=== PATIENT | female | born 1985 | race Caucasian/White ===

== ENCOUNTER 2017-10-30 09:34 | Emergency (ER) | payer SELFPAY ==
[2017-10-30 09:35] VITALS: BP 132/96; PULSE 104; RESP 16; TEMP 37; O2SAT 100; BMI 38.5
--- NOTE | 2017-10-30 09:59 | CT_ITS ---
STUDY: CT ABDOMEN AND PELVIS WITHOUT CONTRAST REASON FOR EXAM: Female, 31 years old. Diffuse sharp abdominal pain. Nausea. RADIATION DOSAGE (If Supplied By Facility): CTDIvol = ( 18.67 ) mGy, DLP = ( 1040.18 ) mGycm TECHNIQUE: Transaxial images were obtained from the dome of the diaphragm to the symphysis pubis without oral contrast, and without intravenous contrast. Sagittal and coronal images were reconstructed. Individualized dose optimization techniques were used for this CT. COMPARISON: Comparison is made with prior study dated August 26, 2017. FINDINGS: The visualized lung bases are unremarkable. The visualized portions of the heart are within normal limits. Normal liver. There are surgical clips in the gallbladder fossa consistent with a prior cholecystectomy. Normal spleen. Normal pancreas. Normal bilateral adrenal glands. Normal right kidney. Normal left kidney. Normal visualized stomach. Normal small intestine. Normal colon. The appendix is visualized and appears normal. Normal abdominal aorta. Normal inferior vena cava. There is borderline retroperitoneal lymphadenopathy with enlarged nodes no greater than 10mm in the short axis diameter. Normal urinary bladder. There is a left-sided inguinal hernia containing adipose tissue. Small umbilical hernia containing fat. Small benign-appearing bilateral inguinal lymph nodes. Normal osseous structures. CT/Abdomen/Pelvis without Cont IMPRESSION: Normal unenhanced CT of the abdomen and pelvis. Electronically Signed: Molina Luis MD at 11:29 EST Tel [phone], Service support ,
[2017-10-30 10:20] LABS: Color, Urine Yellow (Yellow); Glucose, Dipstick Normal (Normal); Ketone-Dipstick Negative (Negative); Leukocyte Esterase-Dipstick Negative /ul (Negative); Nitrite-Dipstick Negative (Negative); Occult Blood-Urine Negative /ul (Negative); Protein-Dipstick Negative (Negative); Specific Gravity, Urine 1.015 (1.002-1.030); Urine Bilirubin Dipstick Negative (Negative); Urine Clarity Sl. Cloudy (Clear); Urine Urobilinogen Normal (Normal)
[2017-10-30] MEDS: 0.9% Normal Saline 1,000 ML 125 ML IV (10:25)
[2017-10-30] MEDS: Ondansetron 4 MG/2 ML Vial IV (10:25)
[2017-10-30 10:31] LABS: Red Blood Cells-Urine 0-5 SEEN /hpf (0-5); Squamous Epithelial Cells - UA 10-25 SEEN /hpf (5-10); White Blood Cells 0-5 SEEN /hpf (0-5)
[2017-10-30 10:32] LABS: Bacteria 4+ /hpf (None Seen); Mucous, Urine 1+ /hpf (<or=2+)
[2017-10-30 10:32] LABS: Absolute Lymphocyte Count 1.22 X10^3/ul (0.83-4.51); Absolute Neutrophil Count 6.8 X10^3/uL (2.0-7.7); Basophil# 0.03 X10^3/uL; Basophil% 0.3 % (0-1); Eosinophil# 0.11 X10^3/uL; Eosinophils% 1.2 % (0-5); Hematocrit 41.4 % (37-47); Lymphocyte # 1.22 X10^3/ul (4.0); Lymphocyte % 13.3 % (19-41); Mean Corp Hgb Conc 33.8 g/gl (32-36); Mean Corpuscular Hgb 27.9 pg (27.0-32.0); Mean Corpuscular Volume 82.5 fL (81-99); Mean Platelet Vol. 9.1 fl (6.2-12.0); Monocyte# 1.03 X10^3/uL; Monocyte% 11.2 % (0-10); Neutrophil # 6.77 X10^3/uL (2.7-7.7); Neutrophil % 73.9 % (47-70); Platelet Count 244 K/mm3 (150-450); RBC Distribution Width CV 13.5 % (11.6-14.6); RBC Distribution Width SD 40.7 fl (35.1-43.9); Red Blood Count 5.02 M/mm3 (4.2-5.4); White Blood Count 9.2 K/mm3 (4.4-11.0)
[2017-10-30 10:34] LABS: POSITIVE COUNT NO; POSITIVE DIFFERENTIAL NO; POSITIVE MORPHOLOGY NO
[2017-10-30 10:45] LABS: Anion Gap 6 (5-15); BUN 13 mg/dL (7-18); BUN/Creat Ratio 14.1 RATIO (10-20); Calcium,Total 8.9 mg/dL (8.5-10.1); Chloride 106 mmol/L (98-107); Creatinine, Serum 0.92 mg/dL (0.55-1.02); EST Glomerular Filtration Rate 76 mL/min (>60); Est Glom Filt Rate - Afr Amer 92 mL/min (>60); Estimated Creatinine Clearance 84.46 ml/min; Glucose 86 mg/dL (74-106); Lipase 98 U/L (73-393); Potassium 3.9 mmol/L (3.5-5.1); Sodium Level 138 mmol/L (136-145)
[2017-10-30 10:50] LABS: Pregnancy, Serum, hCG Quali. NEGATIVE Negative (0-9 Nonpreg)
--- NOTE | 2017-10-30 11:42 | ED.DCSUM_ITS ---
- ER Visit Summary Date of Service: 10/30/17 Chief Complaint: [Abdominal pain] History of Present Illness: The patient is a 31 F [presents to the emergency department with abdominal pain that started at 4 AM. Patient was awoken from sleep with it. Patient describes the pain as continuous with waxing and waning of the discomfort. Patient does not have vomiting although she has some mild nausea. Patient has not had any diarrhea. Last bowel movement was last evening. Patient states that she has not had a period for several months. Patient denies any vaginal bleeding. Patient denies urinary symptoms. Patient states that she had a low-grade fever this morning at 7:30 AM of 100.0.] Physical Examination: [HEENT-PERRLA, EOMI. Cranial nerves II through XII grossly intact. TMs clear. Mucous membranes moist. No adenopathy. Cardiovascular-regular rate and rhythm without murmur or ectopy Lungs-clear to auscultation, chest wall stable without crepitus or subcu emphysema Abdomen-hyper active bowel sounds, soft, tender diffusely, no rebound or rigidity, no peritoneal signs. Extremities-intact ?4, normal range of motion, normal pulses, atraumatic] Test Results: CBC with differential was normal. Chemistries were normal. Urinalysis was normal. HCG was negative. [CT scan of the abdomen and pelvis was normal.] Emergency Department Course and Treatment: [Patient was medicated with Zofran.] Treatment Plan: [Patient will be given a prescription for Zofran and Bentyl.] Disposition: [Discharged home in stable condition. Patient will be advised to follow-up with primary care physician distribution engineering technologist. Patient to return if worsening pain, vomiting, or condition should worsen in any way.] Impression: Abdominal pain-etiology uncertain [] This note was generated with Curazy dictation software. It may contain incorrect words, spelling, and punctuation that were not noted in review of the chart prior to signing ED Disposition - Plan for ED Patient: Chief Complaint: Abd Pain Referrals: Care Physician,No Primary [Primary Care Provider] -
--- NOTE | 2017-10-30 11:42 | ED.DEP ---
ED Disposition - Plan for ED Patient: Chief Complaint: Abd Pain Instructions: ED Abdominal Pain Unkn Cause Prescriptions: Ondansetron [Zofran Odt] 4 mg PO Q8H PRN PRN #10 tab PRN Reason: Nausea Dicyclomine HCl [Bentyl] 20 mg PO TIDAC #20 cap Referrals: Care Physician,No Primary [Primary Care Provider] - Judi Starks DO [STAFF PHYSICIAN] - 3-5 Days
[2017-10-30 11:49] VITALS: BP 138/88; PULSE 81; RESP 20; O2SAT 97
== END 2017-10-30 11:50 | disposition home or self-care (01) ==
LOC: ED 09:59
PROVIDERS: Emergency Provider Emergency Medicine
DX: R10.9 Unspecified abdominal pain (principal); R11.0 Nausea
CPT/HCPCS: 74176; 80048; 81001; 83690; 84703; 85025; 96361; 96374; 99283; J7030; A4216; J2405

== ENCOUNTER 2017-11-01 04:57 | Emergency (ER) | payer SELFPAY ==
[2017-11-01 04:58] VITALS: BP 142/95; PULSE 97; RESP 16; TEMP 37.7; O2SAT 98; BMI 38.9
--- NOTE | 2017-11-01 05:14 | ED.VISSUMM ---
- ER Visit Summary Date of Service: 11/01/17 Chief Complaint: [] Cough History of Present Illness: The patient is a 31 F [] upper respiratory symptoms including cough headache nasal congestion weakness runny nose and sore throat pharyngitis for the last 7 days. Seen in the emergency department 2 days ago for abdominal pain with negative labs and CT abdomen pelvis. She has been using Tylenol Physical Examination: Vital signs reviewed General: Well-nourished well-developed Head: Normocephalic atraumatic Eyes: Pupils equal round and reactive to light extraocular movements intact ENT: TMs clear no hemotympanum no trauma Neck: Nontender full range of motion Cardiovascular: Regular rate rhythm no murmurs normal S1-S2 Respiratory: No distress clear to auscultation bilaterally chest nontender Abdomen: Soft nontender nondistended normal bowel sounds no masses Back: Nontender no CVA tenderness Extremities: Nontender active range of motion ?4 extremities no trauma Skin: Normal color no trauma Neuro alert oriented cranial nerves II through XII intact normal strength sensation reflexes Test Results: [] Emergency Department Course and Treatment: [] Has an upper respiratory infection with laryngitis. This is viral. She will use [id number] treatments. Treatment Plan: [] Disposition: [] Impression: [] Upper respiratory infection This note was generated with Tri[employer] dictation software. It may contain incorrect words, spelling, and punctuation that were not noted in review of the chart prior to signing ED Disposition - Plan for ED Patient: Chief Complaint: Cold Sx Referrals: Care Physician,No Primary [Primary Care Provider] -
--- NOTE | 2017-11-01 05:15 | ED.DEP ---
ED Disposition - Plan for ED Patient: Disposition: Home or Assisted Living Chief Complaint: Cold Sx Instructions: ED Upper Resp Infec No Abx Tx Referrals: Care Physician,No Primary [Primary Care Provider] - Jamal Brock MD [STAFF PHYSICIAN] -
[2017-11-01 05:20] VITALS: RESP 16
== END 2017-11-01 05:20 | disposition home or self-care (01) ==
PROVIDERS: Emergency Provider Emergency Medicine
DX: J04.0 Acute laryngitis (principal); B97.89 Other viral agents as the cause of diseases classified elsewhere
CPT/HCPCS: 99282

== ENCOUNTER 2017-11-14 11:56 | Emergency (ER) | payer SELFPAY ==
[2017-11-14] VITALS (7 sets, daily range): BP systolic 114–143; BP diastolic 74–84; PULSE 62–80; RESP 15–16; TEMP 36.2; O2SAT 97–100; BMI 38.5
[2017-11-14 13:53] LABS: Absolute Lymphocyte Count 3.18 X10^3/ul (0.83-4.51); Absolute Neutrophil Count 4.8 X10^3/uL (2.0-7.7); Basophil# 0.03 X10^3/uL; Basophil% 0.3 % (0-1); Eosinophil# 0.08 X10^3/uL; Eosinophils% 0.9 % (0-5); Hematocrit 42.3 % (37-47); Hemoglobin 14.3 g/dl (12.0-15.0); Lymphocyte # 3.18 X10^3/ul (4.0); Lymphocyte % 36.4 % (19-41); Mean Corp Hgb Conc 33.8 g/gl (32-36); Mean Corpuscular Hgb 27.9 pg (27.0-32.0); Mean Corpuscular Volume 82.5 fL (81-99); Mean Platelet Vol. 9.2 fl (6.2-12.0); Monocyte# 0.63 X10^3/uL; Monocyte% 7.2 % (0-10); Neutrophil % 55.1 % (47-70); POSITIVE COUNT NO; POSITIVE DIFFERENTIAL NO; POSITIVE MORPHOLOGY NO; Platelet Count 299 K/mm3 (150-450); RBC Distribution Width CV 13.5 % (11.6-14.6); RBC Distribution Width SD 40.9 fl (35.1-43.9); Red Blood Count 5.13 M/mm3 (4.2-5.4); White Blood Count 8.7 K/mm3 (4.4-11.0)
[2017-11-14 14:07] LABS: Amphetamine Urine VISTA NEGATIVE (<1000 ng/mL); Barbiturate Urine VISTA NEGATIVE (< 200 ng/mL); Benzodiazepine Urine VISTA NEGATIVE (< 200 ng/mL); Cocaine Urine VISTA NEGATIVE (< 300 ng/mL); Ecstacy Urine VISTA NEGATIVE (< 500 ng/mL); Methadone Urine VISTA NEGATIVE (< 300 ng/mL); PCP Urine VISTA NEGATIVE (< 25 ng/mL); THC Urine VISTA NEGATIVE (< 50 ng/mL); Vista UDS pH Range 5
[2017-11-14 14:10] LABS: Pregnancy, Serum, hCG Quali. NEGATIVE Negative (0-9 Nonpreg)
[2017-11-14 14:15] LABS: Anion Gap 7 (5-15); BUN 15 mg/dL (7-18); BUN/Creat Ratio 20.7 RATIO (10-20); Calcium,Total 8.6 mg/dL (8.5-10.1); Chloride 109 mmol/L (98-107); Creatinine, Serum 0.72 mg/dL (0.55-1.02); EST Glomerular Filtration Rate 100 mL/min (>60); Est Glom Filt Rate - Afr Amer 121 mL/min (>60); Estimated Creatinine Clearance 106.96 ml/min; Glucose 77 mg/dL (74-106); Potassium 3.9 mmol/L (3.5-5.1); Sodium Level 142 mmol/L (136-145); Thyroid Stim Hormone (TSH) 1.14 uIU/mL (0.358-3.74)
[2017-11-14 17:05] LABS: Mucous, Urine 0 SEEN /hpf (<or=2+)
[2017-11-14 17:13] LABS: Color, Urine Yellow (Yellow); Glucose, Dipstick Normal (Normal); Ketone-Dipstick Negative (Negative); Leukocyte Esterase-Dipstick Negative /ul (Negative); Nitrite-Dipstick Negative (Negative); Occult Blood-Urine 25 /ul (Negative); Protein-Dipstick Negative (Negative); Urine Bilirubin Dipstick Negative (Negative); Urine Clarity Sl. Cloudy (Clear); Urine Urobilinogen Normal (Normal)
--- NOTE | 2017-11-14 17:19 | ED.VISSUMM ---
- ER Visit Summary Date of Service: 11/14/17 Chief Complaint: Suicidal ideation History of Present Illness: The patient is a 32 F who reports suicidal thoughts for quite some time. She has no specific plan but does have multiple different possibilities that she is considered. She went to the counseling center today for initial intake and was brought in to be admitted. Patient does report a history of depression. She been on medications in the past but not for quite some time. She does report worsening depression since the of her child several years ago. Physical Examination: Vital signs are unremarkable. Head neck examination reveals pupils to be unequal in size. States this is been ongoing for 5 years and has had multiple workups. Heart is regular rate and rhythm. On lung sounds are clear. Abdomen is soft nontender. Neuro exam reveals normal strength and sensation throughout. Patient does appear depressed has a flat affect. She does admit to continued suicidal thoughts. Test Results: CBC and chemistry studies are unremarkable. TSH is normal. test negative. Tox and EtOH are normal. Emergency Department Course and Treatment: Patient was discussed with Jovita from the counseling center. Patient has been accepted at [facility] in [place]. Treatment Plan: [] Disposition: Transfer Impression: Suicidal ideation This note was generated with [employer] Operations dictation software. It may contain incorrect words, spelling, and punctuation that were not noted in review of the chart prior to signing ED Disposition - Plan for ED Patient: Chief Complaint: Suicidal Referrals: Care Physician,No Primary [Primary Care Provider] -
[2017-11-14 17:29] LABS: Bacteria RARE /hpf (None Seen); Red Blood Cells-Urine 0-5 SEEN /hpf (0-5); Squamous Epithelial Cells - UA 0-5 SEEN /hpf (5-10); White Blood Cells 0 SEEN /hpf (0-5)
[2017-11-14 17:30] LABS: Amorphous Sediment 1+ URATE
[2017-11-14] MEDS: Acetaminophen 500 MG Tablet 1000 MG PO (17:33)
== END 2017-11-14 18:55 ==
PROVIDERS: Emergency Provider Emergency Medicine
DX: F32.9 Major depressive disorder, single episode, unspecified (principal); R45.851 Suicidal ideations; Z87.442 Personal history of urinary calculi
CPT/HCPCS: 36415; 80048; 80307; 80320; 81001; 84443; 84703; 85025; 99284; G0480

== ENCOUNTER 2018-03-05 06:04 | Emergency (ER) | payer SELFPAY ==
[2018-03-05 06:05] VITALS: BP 157/79; PULSE 73; RESP 16; TEMP 36.4; O2SAT 97; BMI 38.7
--- NOTE | 2018-03-05 06:27 | CT_ITS ---
STUDY: CT ABDOMEN AND PELVIS WITHOUT CONTRAST REASON FOR EXAM: Female, 32 years old. Left flank pain. RADIATION DOSAGE (If Supplied By Facility): CTDIvol = ( 14.60 ) mGy, DLP = ( 719.63 ) mGycm TECHNIQUE: Transaxial images were obtained from the dome of the diaphragm to the symphysis pubis without oral contrast, and without intravenous contrast. Sagittal and coronal images were reconstructed. Individualized dose optimization techniques were used for this CT. COMPARISON: Comparison is made with prior study dated October 30, 2017. FINDINGS: The visualized lung bases are unremarkable. The visualized portions of the heart are within normal limits. Normal liver. There are surgical clips in the gallbladder fossa consistent with a prior cholecystectomy. Normal spleen. Normal pancreas. Normal bilateral adrenal glands. Normal right kidney. There is fullness of the left renal pelvis. No significant hydronephrosis is seen. Normal visualized stomach. Normal small intestine. Normal colon. The appendix is visualized and appears normal. Normal abdominal aorta. Normal inferior vena cava. There is borderline retroperitoneal lymphadenopathy with enlarged nodes no greater than 10mm in the short axis diameter. Normal urinary bladder. There is a 2.1 cm cyst in the right ovary. There is a small umbilical hernia containing fat. Normal osseous structures. CT/Abdomen/Pelvis without Cont IMPRESSION: 2.1 cm cyst in the right ovary. Electronically Signed: Molina Luis MD at 8:08 EDT Tel [phone], Service support ,
--- NOTE | 2018-03-05 06:28 | ED.VISSUMM ---
- ER Visit Summary Date of Service: 03/05/18 Chief Complaint: [Right flank pain for 3 days] History of Present Illness: The patient is a 32 F [who presents the emergency department with right flank pain. It started 3 days ago. It is worse with sitting or lying down and is better with standing. She had UTI symptoms a couple of days ago with dysuria and frequency but got better on its own. She had nausea but no vomiting no fevers. She has anxiety and depression is otherwise healthy.] Physical Examination: [] Blood pressure 157/79 WN WD NAD PERRL EOMI MMM NECK supple and nontender, no masses RRR no murmur rub or gallop, no peripheral edema, symmetric radial pulses CTAB no respiratory distress ABDOMEN is soft and nontender, normal bowel sounds, no distension, no rebound or guarding No CVA tenderness SKIN is warm and dry no rashes Alert and Oriented x3, CN II-XII in tact, no motor or sensory deficits, gait normal No lymphadenopathy Test Results: [] Emergency Department Course and Treatment: [Patient was given fluids Toradol and Zofran. Screening labs were obtained urinalysis was sent and CT will be ordered to rule out kidney stone. Urinalysis shows greater than 100 red blood cells there is no evidence of infection. CT is pending I do suspect likely right urolithiasis. Results will be followed up on a oncoming physician.] Treatment Plan: [] Disposition: [] Impression: [] This note was generated with SCHEDit dictation software. It may contain incorrect words, spelling, and punctuation that were not noted in review of the chart prior to signing <Cheyanne Gomez - Last Filed: 03/05/18 07:11> - ER Visit Summary Date of Service: 03/05/18 Patient was checked out to me to check CT results. CT flank shows 2.1 cm right ovarian cyst. Patient states her pain is in the left flank. Urinalysis shows over 100 red blood cells with no white cells. She is advised to follow-up with Dr. Perkins, urology, for hematuria. She is advised to return to ED if worsening complaints. Disposition: Discharge home Impression: Left flank pain, hematuria This note was generated with Crowd Fusionation software. It may contain incorrect words, spelling, and punctuation that were not noted in review of the chart prior to signing <Maribell Cardoso - Last Filed: 03/05/18 08:48> ED Disposition <Cheyanne Gomez - Last Filed: 03/05/18 07:11> <Maribell Cardoso - Last Filed: 03/05/18 08:48> - Plan for ED Patient: Chief Complaint: Flank Pain Instructions: ED Flank Pain Uncertain Cause Prescriptions: Naproxen [Naprosyn] 500 mg PO BID PRN #20 tablet Referrals: Mauricio Askew MD [STAFF PHYSICIAN] - Shabbir Perkins MD [STAFF PHYSICIAN] -
[2018-03-05 06:39] LABS: White Blood Cells 0 SEEN /hpf (0-5)
[2018-03-05 06:41] LABS: Color, Urine Yellow (Yellow); Glucose, Dipstick Normal (Normal); Ketone-Dipstick Negative (Negative); Leukocyte Esterase-Dipstick 25 /ul (Negative); Nitrite-Dipstick Negative (Negative); Occult Blood-Urine 250 /ul (Negative); Protein-Dipstick 30 mg/dl (Negative); Specific Gravity, Urine 1.025 (1.002-1.030); Urine Bilirubin Dipstick Negative (Negative); Urine Clarity Sl. Cloudy (Clear); Urine Urobilinogen Normal (Normal)
[2018-03-05 06:50] LABS: Bacteria 1+ /hpf (None Seen); Mucous, Urine 1+ /hpf (<or=2+); Red Blood Cells-Urine > 100 SEEN /hpf (0-5); Squamous Epithelial Cells - UA 5-10 SEEN /hpf (5-10)
[2018-03-05] MEDS: 0.9% Normal Saline 1,000 ML 1000 ML IV (07:00)
[2018-03-05] MEDS: Ondansetron 4 MG/2 ML Vial IV (07:00)
[2018-03-05] MEDS: Ketorolac 30 MG/ML Syringe IV (07:00)
[2018-03-05 07:07] LABS: Absolute Lymphocyte Count 2.74 X10^3/ul (0.83-4.51); Basophil# 0.02 X10^3/uL; Basophil% 0.2 % (0-1); Eosinophil# 0.14 X10^3/uL; Eosinophils% 1.3 % (0-5); Hematocrit 41.4 % (37-47); Hemoglobin 13.8 g/dl (12.0-15.0); Lymphocyte # 2.74 X10^3/ul (4.0); Lymphocyte % 25.8 % (19-41); Mean Corp Hgb Conc 33.3 g/gl (32-36); Mean Corpuscular Hgb 27.7 pg (27.0-32.0); Mean Platelet Vol. 9.2 fl (6.2-12.0); Monocyte# 0.69 X10^3/uL; Monocyte% 6.5 % (0-10); Neutrophil % 66.1 % (47-70); Platelet Count 273 K/mm3 (150-450); RBC Distribution Width CV 13.7 % (11.6-14.6); RBC Distribution Width SD 41.2 fl (35.1-43.9); Red Blood Count 4.99 M/mm3 (4.2-5.4); White Blood Count 10.6 K/mm3 (4.4-11.0)
--- NOTE | 2018-03-05 07:11 | ED.DEP ---
ED Disposition - Plan for ED Patient: Chief Complaint: Flank Pain Instructions: ED Stone Renal W Colic Prescriptions: Hydrocodone Bitart/Apap 5-325 [Chepachet 5MG-325MG] 1 tablet PO Q6H PRN PRN 3 Days #10 tablet PRN Reason: Pain Ondansetron [Zofran Odt] 4 mg PO Q8H PRN PRN #10 tablet PRN Reason: Nausea Referrals: Mauricio Askew MD [STAFF PHYSICIAN] -
[2018-03-05 07:17] LABS: POSITIVE COUNT NO; POSITIVE DIFFERENTIAL NO; POSITIVE MORPHOLOGY NO; Pregnancy, Serum, hCG Quali. NEGATIVE Negative (0-9 Nonpreg)
[2018-03-05 07:18] LABS: ALB/GLOB Ratio 0.9 RATIO (0.9-2.4); AST(SGOT) 27 U/L (15-37); Alanine Aminotransfer ALT/SGPT 34 U/L (13-56); Albumin, Serum 3.7 g/dL (3.2-5.0); Alkaline Phosphatase 101 U/L (45-117); Anion Gap 8 (5-15); BUN 11 mg/dL (7-18); BUN/Creat Ratio 10.7 RATIO (10-20); Calcium,Total 8.5 mg/dL (8.5-10.1); Chloride 110 mmol/L (98-107); Creatinine, Serum 1.03 mg/dL (0.55-1.02); EST Glomerular Filtration Rate 67 mL/min (>60); Est Glom Filt Rate - Afr Amer 81 mL/min (>60); Estimated Creatinine Clearance 74.76 ml/min; Globulin 4.3 g/dL (2.2-4.2); Glucose 91 mg/dL (74-106); Sodium Level 140 mmol/L (136-145)
--- NOTE | 2018-03-05 08:41 | ED.DEP ---
ED Disposition - Plan for ED Patient: Chief Complaint: Flank Pain Instructions: ED Flank Pain Uncertain Cause Prescriptions: Naproxen [Naprosyn] 500 mg PO BID PRN #20 tablet Referrals: Mauricio Askew MD [STAFF PHYSICIAN] - Shabbir Perkins MD [STAFF PHYSICIAN] -
[2018-03-05 09:44] VITALS: BP 123/85; PULSE 76; RESP 18; O2SAT 99
== END 2018-03-05 09:46 | disposition home or self-care (01) ==
PROVIDERS: Emergency Provider Emergency Medicine
DX: R10.9 Unspecified abdominal pain (principal); R31.9 Hematuria, unspecified; R11.0 Nausea; R30.0 Dysuria; R35.0 Frequency of micturition; N83.201 Unspecified ovarian cyst, right side; F32.9 Major depressive disorder, single episode, unspecified; F41.9 Anxiety disorder, unspecified; Z79.899 Other long term (current) drug therapy
CPT/HCPCS: 74176; 80053; 81001; 84703; 85025; 96374; 96375; 99284; J7030; A4216; J2405

== ENCOUNTER 2018-03-17 00:44 | Emergency (ER) | payer SELFPAY ==
[2018-03-17 00:45] VITALS: BP 148/90; PULSE 79; RESP 16; TEMP 35.8; BMI 37.6
--- NOTE | 2018-03-17 02:33 | ED.DEP ---
ED Disposition - Plan for ED Patient: Chief Complaint: Eye Problem Instructions: ED Conjunctivitis Bacterial Referrals: Care Physician,No Primary [Primary Care Provider] - Rc Quintana MD [STAFF PHYSICIAN] -
[2018-03-17] MEDS: Tetracaine 0.5% Ophthalmic Bottle 1 DRP LEFT EYE (02:57)
[2018-03-17 02:58] VITALS: RESP 18; O2SAT 98
--- NOTE | 2018-03-17 05:45 | ED.VISSUMM ---
- ER Visit Summary Date of Service: 03/17/18 Chief Complaint: Left eye redness History of Present Illness: The patient is a 32 F presenting with left eye redness ?3 days. She states it has been itching and burning. She denies vision changes. She does not wear contacts or glasses. She has had no foreign body exposures, chemical exposure, tanning, or welding. No trauma. She denies fever. Denies sick contacts. Physical Examination: Vitals are stable. Patient is afebrile. Alert no acute distress. HEENT exam left eye conjunctival injection, no foreign body visualized. Left pupil is dilated compared to right. Neck is supple. Lungs are clear and equal bilaterally. Heart is regular rate and rhythm. Extremities are unremarkable. Skin is warm and dry. No focal neurologic deficit. Remainder of exam is unremarkable. 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 She states she has seen multiple ophthalmologists and does not have a known cause for this. She states it is no different than usual today. Tetracaine was instilled which relieved her symptoms. Visual acuity 20/20 OD, 20/50 OS. She is given bacitracin ophthalmic ointment. Advised to follow-up with ophthalmology as needed. Advised return to ED if worsening complaints. Disposition: Discharge home Impression: Left conjunctivitis This note was generated with NeuralStem dictation software. It may contain incorrect words, spelling, and punctuation that were not noted in review of the chart prior to signing ED Disposition - Plan for ED Patient: Disposition: Home or Assisted Living Chief Complaint: Eye Problem Instructions: ED Conjunctivitis Bacterial Referrals: Rc Quintana MD [STAFF PHYSICIAN] - Care Physician,No Primary [Primary Care Provider] -
== END 2018-03-17 02:58 | disposition home or self-care (01) ==
LOC: ED 01:36
PROVIDERS: Emergency Provider Emergency Medicine
DX: H10.9 Unspecified conjunctivitis (principal); Z79.899 Other long term (current) drug therapy
CPT/HCPCS: 99283

== ENCOUNTER 2018-06-25 20:39 | Emergency (ER) | payer SELFPAY ==
[2018-06-25 20:40] VITALS: BP 150/105; PULSE 85; RESP 18; TEMP 36.5; O2SAT 94; BMI 22.1
--- NOTE | 2018-06-25 20:45 | ED.RN ---
PULLED OLD EKGS PER PROTOCOL
[2018-06-25 21:13] VITALS: BP 143/87; PULSE 75; RESP 16; O2SAT 97
--- NOTE | 2018-06-25 22:00 | EKG12_ITS ---
Test Reason : CP Blood Pressure : / mmHG Vent. Rate : 076 BPM Atrial Rate : 076 BPM P-R Int : 136 ms QRS Dur : 088 ms QT Int : 372 ms P-R-T Axes : 052 066 044 degrees QTc Int : 418 ms Normal sinus rhythm Normal ECG Confirmed by ARACELY YOO, RAOUL ([id number]), video editor MELANI ASCENCIO ([id number]) on 06/27/2018 9:58:22 AM Referred By: TL Confirmed By:RAOUL JESSICA MD
--- NOTE | 2018-06-25 22:00 | RAD_ITS ---
STUDY: X-RAY CHEST REASON FOR EXAM: Female, 32 years old. Chest pain. Shortness of breath and dizziness beginning this morning. TECHNIQUE: Single AP portable view of the chest. COMPARISON: April 28, 2016. FINDINGS: Telemetry wires overlie the chest. There is a minimally decreased inspiratory effort when compared to prior study. There is no new mass or infiltrate. There is no demonstrated pleural abnormality. Normal size heart. Normal mediastinum and rolando. Normal visualized pulmonary arteries. Normal visualized aortic arch and descending thoracic aorta. The thoracic spine is obscured by the mediastinum. Normal visualized ribs, clavicles, and shoulders. There is no demonstrated abnormality of the visualized soft tissue structures of the upper abdomen. RAD/Chest 1 View (Portable) IMPRESSION: No acute cardiopulmonary disease or interval change. Electronically Signed: Jax Contreras DO at 22:25 EDT Tel [phone], Service support ,
--- NOTE | 2018-06-25 22:01 | ED.VISSUMM ---
- ER Visit Summary Date of Service: 06/25/18 Chief Complaint: Palpitations History of Present Illness: The patient is a 32 F presenting with palpitations. She states she has had 1 minute episodes of palpitations throughout the day. She states she is getting episodes about once an hour. She states she has associated chest pain with this. Symptoms last approximately 1 minute. She has shortness of breath with this. She has not passed out. She is currently pain-free. Denies PE/DVT risk factors. History of anxiety and depression. Denies fever or chills. Physical Examination: Vitals are stable. Patient is afebrile. Alert no acute distress. HEENT exam is unremarkable. Neck is supple. Lungs are clear and equal bilaterally. Heart is regular rate and rhythm. Abdomen is soft nontender nondistended. Extremities are unremarkable. Skin is warm and dry. No focal neurologic deficit. Remainder of exam is unremarkable. Emergency Department Course and Treatment: EKG is sinus rate of 75 with no acute changes. D-dimer is negative. Chest x-ray shows no acute process. BMP unremarkable. HCG negative. She is given Dr. Lee regional commercial sales manager for no doc for follow-up. Advised return to ED if worsening complaints. Disposition: Discharge home Impression: Palpitations This note was generated with Spavista dictation software. It may contain incorrect words, spelling, and punctuation that were not noted in review of the chart prior to signing ED Disposition - Plan for ED Patient: Chief Complaint: Chest Other Instructions: ED Palpitations Referrals: Talib Lee III, MD [STAFF PHYSICIAN] - Care Physician,No Primary [Primary Care Provider] -
[2018-06-25] MEDS: 0.9% Normal Saline 1,000 ML 1000 ML IV (22:42)
[2018-06-25 22:49] LABS: D-Dimer Quantitative (DVT/PE) < 0.27 FEU/ug/m (0.27-0.49)
[2018-06-25 22:52] LABS: Anion Gap 8 (5-15); BUN 17 mg/dL (7-18); BUN/Creat Ratio 18.5 RATIO (10-20); Calcium,Total 8.4 mg/dL (8.5-10.1); Chloride 109 mmol/L (98-107); Creatinine, Serum 0.92 mg/dL (0.55-1.02); EST Glomerular Filtration Rate 76 mL/min (>60); Est Glom Filt Rate - Afr Amer 92 mL/min (>60); Glucose 97 mg/dL (74-106); Potassium 3.5 mmol/L (3.5-5.1); Sodium Level 140 mmol/L (136-145)
[2018-06-25 23:02] VITALS: BP 122/77; PULSE 76; RESP 14; O2SAT 98
[2018-06-25 23:57] LABS: Pregnancy, Serum, hCG Quali. NEGATIVE Negative (0-9 Nonpreg)
--- NOTE | 2018-06-25 23:59 | ED.DEP ---
ED Disposition - Plan for ED Patient: Chief Complaint: Chest Other Instructions: ED Palpitations Referrals: Care Physician,No Primary [Primary Care Provider] - Talib Lee III, MD [STAFF PHYSICIAN] -
[2018-06-26 00:12] VITALS: BP 146/100; PULSE 86; RESP 12; O2SAT 100
== END 2018-06-26 00:14 | disposition home or self-care (01) ==
PROVIDERS: Emergency Provider Emergency Medicine
DX: R00.2 Palpitations (principal); R07.9 Chest pain, unspecified; R06.02 Shortness of breath; F32.9 Major depressive disorder, single episode, unspecified; F41.9 Anxiety disorder, unspecified; Z79.899 Other long term (current) drug therapy
CPT/HCPCS: 71045; 80048; 84484; 84703; 85379; 93005; 96360; 99285; J7030; A4216

== ENCOUNTER 2018-06-27 14:33 | Emergency (ER) | payer SELFPAY ==
[2018-06-27 14:33] VITALS: BP 155/97; PULSE 77; RESP 18; TEMP 36.6; O2SAT 100; BMI 38.2
--- NOTE | 2018-06-27 14:48 | EKG12_ITS ---
Test Reason : CP Blood Pressure : / mmHG Vent. Rate : 080 BPM Atrial Rate : 080 BPM P-R Int : 134 ms QRS Dur : 082 ms QT Int : 366 ms P-R-T Axes : 033 062 026 degrees QTc Int : 422 ms Normal sinus rhythm Poor R wave progression Confirmed by CHLOÉ YOO, MARYLOU ([id number]), editorial director LIZ MATUTE ([id number] on 07/01/2018 12:42:46 PM Referred By: JUAQUIN Confirmed By:MARYLOU LUEVANO MD
--- NOTE | 2018-06-27 14:48 | CT_ITS ---
STUDY: CTA CHEST REASON FOR EXAM: Female, 32 years old. Chest pain. RADIATION DOSAGE (If Supplied By Facility): CTDIvol = ( 26.18 ) mGy, DLP = ( 680.2 ) mGycm TECHNIQUE: The examination was performed with the intravenous administration of 100 ml of Isovue 370 contrast material. Post-processing of the angiographic images was performed, with multiplanar reformation and 3D reconstruction. # of Images: [id number] Individualized dose optimization techniques were used for this CT. COMPARISON: 03/26/2017, 03/05/2018. FINDINGS: Normal enhancement of the main pulmonary artery and right and left pulmonary arteries. Normal enhancement of the bilateral peripheral pulmonary arteries. There is no demonstrated pulmonary embolism. Normal thoracic aorta and visualized great vessels. There is no demonstrated aortic dissection. Normal heart and pericardium. Normal mediastinum. Normal hilar regions. Normal visualized trachea and bronchi. The lungs are well expanded. Normal pulmonary parenchyma. There is a tiny 4 mm nodule in the posterior left lung base which is stable from the previous exams and in this age group is almost certainly of no clinical concern. Normal pleura. Normal chest wall structures. Normal osseous structures. Normal visualized upper abdomen. CT/CTA Chest W/WO Contrast IMPRESSION: Normal CTA chest examination, without a demonstrated pulmonary embolism or arterial dissection. Electronically Signed: Aaron Nye MD at 16:15 EDT , Service support ,
--- NOTE | 2018-06-27 14:48 | RAD_ITS ---
STUDY: X-RAY CHEST REASON FOR EXAM: Female, 32 years old. Chest pain. TECHNIQUE: Single AP portable view of the chest. COMPARISON: 06/25/2018. FINDINGS: The lungs are clear and expanded. There is no demonstrated pleural abnormality. Normal size heart. Normal mediastinum and rolando. Normal visualized pulmonary arteries. Normal visualized aortic arch and descending thoracic aorta. Normal visualized thoracic spine. Normal visualized ribs, clavicles, and shoulders. There is no demonstrated abnormality of the visualized soft tissue structures of the upper abdomen. RAD/Chest 1 View (Portable) IMPRESSION: Normal x-ray examination of the chest. Electronically Signed: Aaron Nye MD at 15:32 EDT , Service support ,
--- NOTE | 2018-06-27 14:52 | ED.DCSUM_ITS ---
- ER Visit Summary Date of Service: 06/27/18 Chief Complaint: [] Upper back pain sense of palpitations chest pain since yesterday History of Present Illness: The patient is a 32 F [] patient mid back sense of palpitation she has had on and off was seen the other day in the emergency department her workup was unremarkable she indicates that pain in her mid back sense of the palpitations, she had no trauma to her back or any part of her body she does report that before the onset of the back pain she had lifted a heavy laundry basket but does not believe she injured herself. She is at work today in the back pain intensified she came in for evaluation. She has history of anxiety depression history of ID PE DVT no risk factors Physical Examination: [] Her vital signs are unremarkable she is resting comforting the bed general, no distress resting comfortably HEENT is generally unremarkable The neck is supple no adenopathy Cardiovascular, regular rate and rhythm Lungs, clear bilateral Abdomen, soft nontender Planes of some vague pain to the mid thoracic area this area is not tender to palpation there is no trauma or bruising here her C-spine T-spine lumbar back unremarkable Extremities, no clubbing cyanosis or edema Neurologic, awake alert answering questions appropriately moving all 4 extremities Test Results: [] Emergency Department Course and Treatment: [] Review of workup from the day shows unremarkable labs d-dimer, given all the above screening labs CTA EKG pain management Patient's EKG all laboratory results were generally unremarkable nothing acute, CTA of chest was obtained because of her persistent complaints of all the above per radiology is negative for all Of explained the test results the patient I explained exact etiology of the back pain and the intermittent sense of palpitations is unclear she needs to follow- up as she has been instructed to do would see her physicians and return for change in symptoms she will be started on Naprosyn for the back pain and she understands this plan will follow Treatment Plan: [] Disposition: [] Home stable Impression: [] Upper back pain etiology unclear, intermittent sense of palpitations This note was generated with [employer]One dictation software. It may contain incorrect words, spelling, and punctuation that were not noted in review of the chart prior to signing ED Disposition - Plan for ED Patient: Chief Complaint: Back Referrals: Care Physician,No Primary [Primary Care Provider] -
[2018-06-27 15:03] LABS: Absolute Neutrophil Count 7.2 X10^3/uL (2.0-7.7); Basophil# 0.04 X10^3/uL; Basophil% 0.4 % (0-1); Eosinophil# 0.14 X10^3/uL; Eosinophils% 1.3 % (0-5); Hematocrit 41.3 % (37-47); Hemoglobin 14.3 g/dl (12.0-15.0); Mean Corp Hgb Conc 34.6 g/gl (32-36); Mean Corpuscular Hgb 28.3 pg (27.0-32.0); Mean Corpuscular Volume 81.8 fL (81-99); Mean Platelet Vol. 9.9 fl (6.2-12.0); Monocyte# 0.69 X10^3/uL; Monocyte% 6.2 % (0-10); Neutrophil # 7.23 X10^3/uL (2.7-7.7); Neutrophil % 64.9 % (47-70); Platelet Count 319 K/mm3 (150-450); RBC Distribution Width CV 13.7 % (11.6-14.6); RBC Distribution Width SD 40.2 fl (35.1-43.9); Red Blood Count 5.05 M/mm3 (4.2-5.4); White Blood Count 11.1 K/mm3 (4.4-11.0)
[2018-06-27 15:06] LABS: POSITIVE COUNT NO; POSITIVE DIFFERENTIAL NO; POSITIVE MORPHOLOGY NO
[2018-06-27] MEDS: Ondansetron 4 MG/2 ML Vial IV (15:17)
[2018-06-27] MEDS: morphine 8 MG/ML Syringe IV (15:17)
[2018-06-27] MEDS: Aspirin 81 MG TAB.CHEW 324 MG PO (15:17)
[2018-06-27] MEDS: 0.9% Normal Saline 1,000 ML 150 ML IV (15:17)
[2018-06-27 15:18] LABS: Anion Gap 8 (5-15); BUN 17 mg/dL (7-18); BUN/Creat Ratio 17.3 RATIO (10-20); Calcium,Total 8.6 mg/dL (8.5-10.1); Chloride 107 mmol/L (98-107); Creatinine, Serum 0.98 mg/dL (0.55-1.02); EST Glomerular Filtration Rate 70 mL/min (>60); Est Glom Filt Rate - Afr Amer 85 mL/min (>60); Estimated Creatinine Clearance 78.58 ml/min; Glucose 83 mg/dL (74-106); Potassium 3.6 mmol/L (3.5-5.1); Sodium Level 139 mmol/L (136-145)
[2018-06-27 15:27] VITALS: BP 140/102
--- NOTE | 2018-06-27 16:47 | ED.DEP ---
ED Disposition - Plan for ED Patient: Chief Complaint: Back Prescriptions: Naproxen [Naprosyn] 500 mg PO BID PRN #20 tab Referrals: Care Physician,No Primary [Primary Care Provider] - Yeni Osman MD [STAFF PHYSICIAN] -
--- NOTE | 2018-06-27 16:49 | ED.DEP ---
ED Disposition - Plan for ED Patient: Chief Complaint: Back Instructions: ED Neck Back Pain General, ED Palpitations Prescriptions: Naproxen [Naprosyn] 500 mg PO BID PRN #20 tab Referrals: Yeni Osman MD [STAFF PHYSICIAN] - Care Physician,No Primary [Primary Care Provider] -
[2018-06-27 17:00] VITALS: BP 125/85; PULSE 75; RESP 16; O2SAT 98
== END 2018-06-27 17:04 | disposition home or self-care (01) ==
LOC: ED 15:04
PROVIDERS: Emergency Provider Emergency Medicine
DX: M54.9 Dorsalgia, unspecified (principal); R00.2 Palpitations; F32.9 Major depressive disorder, single episode, unspecified; F41.9 Anxiety disorder, unspecified; I25.2 Old myocardial infarction; Z79.899 Other long term (current) drug therapy
CPT/HCPCS: 71045; 71275; 80048; 84484; 85025; 93005; 96361; 96374; 96375; 99285; J7030; Q9967; A4216; J2405

== ENCOUNTER 2018-07-17 08:28 | Emergency (ER) | payer SELFPAY ==
[2018-07-17 08:29] VITALS: BP 168/87; PULSE 104; RESP 18; TEMP 36.6; O2SAT 95; BMI 37.9
[2018-07-17 09:08] LABS: Mucous, Urine 0 SEEN /hpf (<or=2+); Red Blood Cells-Urine 0 SEEN /hpf (0-5); White Blood Cells 0 SEEN /hpf (0-5)
[2018-07-17 09:12] LABS: Absolute Lymphocyte Count 1.52 X10^3/ul (0.83-4.51); Absolute Neutrophil Count 8.9 X10^3/uL (2.0-7.7); Basophil# 0.02 X10^3/uL; Basophil% 0.2 % (0-1); Eosinophil# 0.05 X10^3/uL; Eosinophils% 0.4 % (0-5); Hematocrit 41.1 % (37-47); Hemoglobin 13.8 g/dl (12.0-15.0); Lymphocyte # 1.52 X10^3/ul (4.0); Lymphocyte % 13.3 % (19-41); Mean Corp Hgb Conc 33.6 g/gl (32-36); Mean Corpuscular Hgb 27.9 pg (27.0-32.0); Mean Corpuscular Volume 83.2 fL (81-99); Mean Platelet Vol. 9.4 fl (6.2-12.0); Monocyte# 0.99 X10^3/uL; Monocyte% 8.7 % (0-10); Neutrophil # 8.85 X10^3/uL (2.7-7.7); Neutrophil % 77.3 % (47-70); Platelet Count 221 K/mm3 (150-450); RBC Distribution Width CV 13.5 % (11.6-14.6); Red Blood Count 4.94 M/mm3 (4.2-5.4); White Blood Count 11.4 K/mm3 (4.4-11.0)
[2018-07-17 09:17] LABS: POSITIVE COUNT NO; POSITIVE DIFFERENTIAL NO; POSITIVE MORPHOLOGY NO
[2018-07-17] MEDS: Ondansetron 4 MG/2 ML Vial IV (09:17)
[2018-07-17 09:27] LABS: AST(SGOT) 8 U/L (15-37); Alanine Aminotransfer ALT/SGPT 21 U/L (13-56); Albumin, Serum 3.3 g/dL (3.2-5.0); Alkaline Phosphatase 104 U/L (45-117); Anion Gap 8 (5-15); BUN 11 mg/dL (7-18); BUN/Creat Ratio 12.2 RATIO (10-20); Bilirubin, Direct 0.12 mg/dL (0.00-0.30); Calcium,Total 8.4 mg/dL (8.5-10.1); Chloride 109 mmol/L (98-107); EST Glomerular Filtration Rate 77 mL/min (>60); Est Glom Filt Rate - Afr Amer 94 mL/min (>60); Estimated Creatinine Clearance 85.56 ml/min; Globulin 4.3 g/dL (2.2-4.2); Glucose 84 mg/dL (74-106); Lipase 81 U/L (73-393); Potassium 3.9 mmol/L (3.5-5.1); Protein, Total 7.6 g/dL (6.4-8.2); Sodium Level 142 mmol/L (136-145)
[2018-07-17 09:28] LABS: Color, Urine YELLOW (Yellow); Urine Clarity Sl Cldy (Clear)
[2018-07-17 09:29] LABS: Glucose, Dipstick NEGATIVE (Normal); Ketone-Dipstick Negative (Negative); Specific Gravity, Urine 1.005 (1.002-1.030); Urine Bilirubin Dipstick Negative (Negative)
[2018-07-17 09:30] LABS: Nitrite-Dipstick Negative (Negative); Protein-Dipstick 30 mg/dl (Negative); Urine Urobilinogen Normal (Normal)
[2018-07-17 09:31] LABS: Leukocyte Esterase-Dipstick Negative /ul (Negative); Occult Blood-Urine Negative /ul (Negative)
--- NOTE | 2018-07-17 09:33 | ED.DCSUM_ITS ---
- ER Visit Summary Date of Service: 07/17/18 Chief Complaint: Abdominal cramping History of Present Illness: The patient is a 32 F medical history of ovarian cyst and a left kidney stone also anxiety. Patient is Ab0. History of depression. Prior abdominal surgeries include umbilical hernia repair, c holecystectomy and 2 C-sections. She states the last 3 days she has had crampy abdominal pain. Began on Sunday. Associated nausea. No vomiting. No diarrhea. No fever. No dysuria. No melena. No back pain. Last menstrual period was approximately 1 week ago. She denies any vaginal bleeding or discharge. Physical Examination: Well-appearing young female. Vital signs are stable afebrile. She does not look septic or toxic. She is in no acute distress. H EENT exam unremarkable. Moist mucous membranes. Neck nontender. No lymphadenopathy. Lungs clear to auscultation bilaterally. Heart regular rate and rhythm no murmur rate about 100. Abdomen is soft. Nondistended. Normal bowel sounds. She is very minimal discomfort in the epigastric region. No rebound, guarding or rigidity. No signs of traction. No hernias or masses appreciated. Both the right upper right lower quadrants are unremarkable. There is no McBurney's point tenderness. Patient is moving all 4 extremities. They are neurovascularly intact. Back exam nontender. Skin unremarkable. Neurologically she is awake and alert with no focal motor deficits. Test Results: Showed a white count 11.4. Hemoglobin 13. No bands. Chemistries unremarkable normal gap and creatinine. Liver enzymes and lipase normal. UA negative. Serum test negative. Emergency Department Course and Treatment: She will be treated with IV Zofran for her nausea. Will obtain screening labs but my clinical suspicion is low. She has had at least 4 abdominal and pelvic CAT scans in the last year and a half, all of which were basically unremarkable except for an ovarian cyst and a kidney stone that was in the kidney. Repeat exam at 10:01 AM signs. No localizing right lower quadrant tenderness. She and I discussed all of her test results. She will be discharged to home. Treatment Plan: Zofran for nausea. Tylenol for pain. Follow-up with your doctor as needed. Return if worse. Disposition: Discharge Impression: Acute abdominal pain of uncertain etiology Nausea Anxiety This note was generated with [employer] software. It may contain incorrect words, spelling, and punctuation that were not noted in review of the chart prior to signing ED Disposition - Plan for ED Patient: Chief Complaint: Abd Pain Referrals: Care Physician,No Primary [Primary Care Provider] -
[2018-07-17 09:35] LABS: Bacteria 1+ /hpf (None Seen); Squamous Epithelial Cells - UA 5-10 SEEN /hpf (5-10)
[2018-07-17 09:48] LABS: Pregnancy, Serum, hCG Quali. NEGATIVE Negative (0-9 Nonpreg)
--- NOTE | 2018-07-17 10:03 | ED.DEP ---
ED Disposition - Plan for ED Patient: Disposition: Home or Assisted Living Chief Complaint: Abd Pain Instructions: ED Abdominal Pain Unkn Cause Prescriptions: Ondansetron [Zofran Odt] 4 mg PO Q4H PRN PRN #7 tab.rapdis PRN Reason: Nausea Referrals: Ugo Quarles MD [STAFF PHYSICIAN] - 1 Week if not improving Additional Instructions: Plenty of fluids and rest. Zofran as needed for nausea. Follow-up with a local primary care physician or return to ER if feeling a lot worse.
[2018-07-17 10:11] VITALS: PULSE 100; RESP 17; O2SAT 98
== END 2018-07-17 10:13 | disposition home or self-care (01) ==
PROVIDERS: Emergency Provider Emergency Medicine
DX: R10.13 Epigastric pain (principal); R11.0 Nausea; F32.9 Major depressive disorder, single episode, unspecified; F41.9 Anxiety disorder, unspecified; Z79.899 Other long term (current) drug therapy; Z87.442 Personal history of urinary calculi
CPT/HCPCS: 80048; 80076; 81001; 83690; 84703; 85025; 96374; 99283; A4216; J2405

== ENCOUNTER 2018-07-18 08:43 | Emergency (ER) | payer SELFPAY ==
[2018-07-18 08:44] VITALS: BP 154/120; PULSE 132; RESP 20; TEMP 36.6; O2SAT 97; BMI 38.4
--- NOTE | 2018-07-18 08:57 | CT_ITS ---
STUDY: CT ABDOMEN AND PELVIS WITHOUT CONTRAST REASON FOR EXAM: Female, 32 years old. Increasing abdominal pain since yesterday. History of ovarian cysts and kidney cysts. RADIATION DOSAGE (If Supplied By Facility): CTDIvol = ( 17.43 ) mGy, DLP = ( 914.6 ) mGycm TECHNIQUE: Transaxial images were obtained from the dome of the diaphragm to the symphysis pubis without oral contrast, and without intravenous contrast. Sagittal and coronal images were reconstructed. Individualized dose optimization techniques were used for this CT. COMPARISON: Comparison is made with prior study dated March 05, 2018. FINDINGS: There is a tiny right pleural effusion. The visualized portions of the heart are within normal limits. Normal liver. There are surgical clips in the gallbladder fossa consistent with a prior cholecystectomy. Normal spleen. Normal pancreas. Normal bilateral adrenal glands. Normal right kidney. Normal left kidney. Normal visualized stomach. Normal small intestine. There is evidence of a thickening of the right hemicolon with increased markings in the surrounding peritoneal fat suggestive of colitis. There is also evidence of thickening and increased markings in the surrounding peritoneal fat in the left hemicolon. Colitis should be ruled out. The appendix is visualized and appears normal. Normal abdominal aorta. Normal inferior vena cava. There is borderline retroperitoneal lymphadenopathy with enlarged nodes no greater than 10mm in the short axis diameter. Normal urinary bladder. Follicles are seen in the right ovary. There is a small umbilical hernia containing fat. Straightening of the normal lumbar lordosis. CT/Abdomen/Pelvis without Cont IMPRESSION: Tiny right pleural effusion. Findings suggestive of colitis as described. Electronically Signed: Molina Luis MD at 10:30 EST Tel [phone], Service support ,
[2018-07-18 09:16] LABS: Absolute Lymphocyte Count 1.79 X10^3/ul (0.83-4.51); Absolute Neutrophil Count 10.7 X10^3/uL (2.0-7.7); Basophil# 0.02 X10^3/uL; Basophil% 0.1 % (0-1); Eosinophil# 0.03 X10^3/uL; Eosinophils% 0.2 % (0-5); Hematocrit 41.1 % (37-47); Hemoglobin 13.9 g/dl (12.0-15.0); Lymphocyte # 1.79 X10^3/ul (4.0); Lymphocyte % 12.9 % (19-41); Mean Corp Hgb Conc 33.8 g/gl (32-36); Mean Corpuscular Hgb 28.1 pg (27.0-32.0); Mean Platelet Vol. 9.3 fl (6.2-12.0); Monocyte% 9.3 % (0-10); Neutrophil # 10.74 X10^3/uL (2.7-7.7); Neutrophil % 77.3 % (47-70); Platelet Count 218 K/mm3 (150-450); RBC Distribution Width CV 13.6 % (11.6-14.6); RBC Distribution Width SD 40.7 fl (35.1-43.9); Red Blood Count 4.95 M/mm3 (4.2-5.4); White Blood Count 13.9 K/mm3 (4.4-11.0)
[2018-07-18 09:17] LABS: POSITIVE COUNT NO; POSITIVE DIFFERENTIAL NO; POSITIVE MORPHOLOGY NO
--- NOTE | 2018-07-18 09:21 | ED.VISSUMM ---
- ER Visit Summary Date of Service: 07/18/18 Chief Complaint: Abdominal pain History of Present Illness: The patient is a 32 F with no primary care physician. She reports that she has abdominal pain began 3 days ago. It is a continuous pain that waxes and wanes. She describes it as squeezing. Is 10 out of 10 in severity currently and at worst. She reports is worsened by standing up and relieved by bearing down. She has had nausea without vomiting. She had one episode of diarrhea at 4:00 this morning. No blood in her stools or black tarry stools. No dysuria or frequency. Her last menstrual period was last week. She denies any vaginal bleeding or discharge. She denies fever. She does report she has had chills. Physical Examination: Vitals: Stable. Afebrile. General: Well-nourished and well-developed. Head: Normocephalic atraumatic. Neck: Supple, no lymphadenopathy. No JVD. Nontender. Cardiovascular: Regular rate and rhythm. No murmurs. Respiratory: No respiratory distress. Clear to auscultation bilaterally. Abdominal: Soft, moderate diffuse tenderness to palpation, nondistended, normal bowel sounds. No guarding, rebound, or peritoneal signs. Back: Nontender. Extremities: Nontender, no edema. Skin: Normal color, no rash. Neurologic: Alert and oriented ?3. Cranial nerves II through XII are intact. Normal strength and sensation. Psych: Normal affect. Test Results: Patient was seen in the emergency department yesterday and had labs obtained. The BMP was not repeated. At that time her chloride was 109 and her calcium was 8.4. She had a UA that was negative and a test that were negative. These were not repeated. Patient had a repeat CBC which shows her white count is 13.9 with 77 segmented neutrophils and 13 lymphocytes. Her white count was 11.4 yesterday. Clinical Impression(s) from Imaging Studies Abdomen/Pelvis CT 07/18/18 08:57 IMPRESSION: Tiny right pleural effusion. Findings suggestive of colitis as described. Electronically Signed: Molina Luis MD at 10:30 EST Tel [phone], Service support , Emergency Department Course and Treatment: Patient had an IV placed. She was given Toradol and Zofran IV. When the CT returned she was given Cipro and Flagyl p.o. She is resting comfortably. Treatment Plan: Patient was discussed with Dr. Huynh. She has been unable to produce a stool sample for culture here. She will be discharged on Cipro, Flagyl, [place]. Instructed follow-up Dr. Huynh in 1 week for another exam. Return to the emergency department for any worsening symptoms. Disposition: To home in improved and stable condition. Impression: 1. Colitis. This note was generated with [employer] dictation software. It may contain incorrect words, spelling, and punctuation that were not noted in review of the chart prior to signing ED Disposition - Plan for ED Patient: Disposition: Home or Assisted Living Chief Complaint: Abd Pain Instructions: ED Gastroenteritis Bacterial Prescriptions: Hydrocodone Bitart/Apap 5-325 [[place] 5MG-325MG] 1 tablet PO Q4H PRN PRN 2 Days #10 tablet PRN Reason: Pain Ondansetron [Zofran Odt] 4 mg PO Q8H PRN PRN #10 tablet PRN Reason: Nausea Ciprofloxacin [Cipro] 500 mg PO BID #20 tablet Naproxen [Naprosyn] 500 mg PO BID #14 tablet Metronidazole [Flagyl] 500 mg PO Q6H #40 tablet Referrals: Noel Tillman MD [STAFF PHYSICIAN] - 1 Week
--- NOTE | 2018-07-18 09:24 | ED.DCSUM_ITS ---
- ER Visit Summary Date of Service: 07/18/18 Chief Complaint: Abdominal pain History of Present Illness: The patient is a 32 F with no primary care physician. She reports that she has abdominal pain began 3 days ago. It is a continuous pain that waxes and wanes. She describes it as squeezing. Is 10 out of 10 in severity currently and at worst. She reports is worsened by standing up and relieved by bearing down. She has had nausea without vomiting. She had one episode of diarrhea at 4:00 this morning. No blood in her stools or black tarry stools. No dysuria or frequency. Her last menstrual period was last week. She denies any vaginal bleeding or discharge. She denies fever. She does report she has had chills. Physical Examination: Vitals: Stable. Afebrile. General: Well-nourished and well-developed. Head: Normocephalic atraumatic. Neck: Supple, no lymphadenopathy. No JVD. Nontender. Cardiovascular: Regular rate and rhythm. No murmurs. Respiratory: No respiratory distress. Clear to auscultation bilaterally. Abdominal: Soft, moderate diffuse tenderness to palpation, nondistended, normal bowel sounds. No guarding, rebound, or peritoneal signs. Back: Nontender. Extremities: Nontender, no edema. Skin: Normal color, no rash. Neurologic: Alert and oriented ?3. Cranial nerves II through XII are intact. Normal strength and sensation. Psych: Normal affect. Test Results: Patient was seen in the emergency department yesterday and had labs obtained. The BMP was not repeated. At that time her chloride was 109 and her calcium was 8.4. She had a UA that was negative and a test that were negative. These were not repeated. Patient had a repeat CBC which shows her white count is 13.9 with 77 segmented neutrophils and 13 lymphocytes. Her white count was 11.4 yesterday. Clinical Impression(s) from Imaging Studies Abdomen/Pelvis CT 07/18/18 08:57 IMPRESSION: Tiny right pleural effusion. Findings suggestive of colitis as described. Electronically Signed: Molina Luis MD at 10:30 EST Tel [phone], Service support , Emergency Department Course and Treatment: Patient had an IV placed. She was given Toradol and Zofran IV. When the CT returned she was given Cipro and Flagyl p.o. She is resting comfortably. Treatment Plan: Patient was discussed with Dr. Huynh. She has been unable to produce a stool sample for culture here. She will be discharged on Cipro, Flagyl, [place]. Instructed follow-up Dr. Huynh in 1 week for another exam. Return to the emergency department for any worsening symptoms. Disposition: To home in improved and stable condition. Impression: 1. Colitis. This note was generated with [employer] dictation software. It may contain incorrect words, spelling, and punctuation that were not noted in review of the chart prior to signing ED Disposition - Plan for ED Patient: Disposition: Home or Assisted Living Chief Complaint: Abd Pain Instructions: ED Gastroenteritis Bacterial Prescriptions: Hydrocodone Bitart/Apap 5-325 [[place] 5MG-325MG] 1 tablet PO Q4H PRN PRN 2 Days #10 tablet PRN Reason: Pain Ondansetron [Zofran Odt] 4 mg PO Q8H PRN PRN #10 tablet PRN Reason: Nausea Ciprofloxacin [Cipro] 500 mg PO BID #20 tablet Naproxen [Naprosyn] 500 mg PO BID #14 tablet Metronidazole [Flagyl] 500 mg PO Q6H #40 tablet Referrals: Noel Tillman MD [STAFF PHYSICIAN] - 1 Week
[2018-07-18] MEDS: Ketorolac 30 MG/ML Syringe IV (09:46)
[2018-07-18] MEDS: Ondansetron 4 MG/2 ML Vial IV (09:46)
[2018-07-18] MEDS: 0.9% Normal Saline 1,000 ML 1000 ML IV (09:46)
[2018-07-18 09:51] LABS: AST(SGOT) 17 U/L (15-37); Alanine Aminotransfer ALT/SGPT 21 U/L (13-56); Albumin, Serum 3.2 g/dL (3.2-5.0); Alkaline Phosphatase 104 U/L (45-117); Bilirubin, Direct 0.08 mg/dL (0.00-0.30); Globulin 4.5 g/dL (2.2-4.2); Lipase 80 U/L (73-393); Protein, Total 7.7 g/dL (6.4-8.2)
[2018-07-18] MEDS: metroNIDAZOLE 500 MG Tablet PO (11:11)
[2018-07-18] MEDS: Morphine 4 MG/ML Syringe IV (11:11)
[2018-07-18] MEDS: Ciprofloxacin 500 MG Tablet PO (11:11)
[2018-07-18 11:57] VITALS: BP 148/80; PULSE 101; PULSE 95; RESP 14; O2SAT 98
== END 2018-07-18 11:58 | disposition home or self-care (01) ==
LOC: ED 09:12
PROVIDERS: Emergency Provider Emergency Medicine
DX: K52.9 Noninfective gastroenteritis and colitis, unspecified (principal); F32.9 Major depressive disorder, single episode, unspecified; F41.9 Anxiety disorder, unspecified; Z79.899 Other long term (current) drug therapy; Z87.442 Personal history of urinary calculi
CPT/HCPCS: 74176; 80076; 83690; 85025; 96361; 96374; 96375; 99285; A4216; J2405

== ENCOUNTER 2018-07-25 03:24 | Emergency (ER) | payer SELFPAY ==
[2018-07-25 03:27] VITALS: BP 164/118; PULSE 104; RESP 18; TEMP 36.4; O2SAT 97; BMI 36.8
[2018-07-25 03:36] VITALS: BP 156/99; PULSE 78; O2SAT 97
--- NOTE | 2018-07-25 03:45 | ED.DCSUM_ITS ---
- ER Visit Summary Date of Service: 07/25/18 Chief Complaint: Abdominal pain History of Present Illness: The patient is a 32 F with abdominal pain for a week and a half she was seen here in was found to have colitis she had worse pain today. She has no fever or chills. She has loose watery diarrhea. She has been on Cipro and Flagyl. No chest pain shortness of breath. She is complaining of left-sided back pain which she also had in the past. Physical Examination: Patient appears in some distress, she does not appear toxic Moist mucous membranes, no obvious facial deformity No C-spine tenderness supple neck. Regular rate and rhythm without any obvious murmurs Clear lungs bilaterally speaking in full sentences without any obvious respiratory distress Abdomen soft with some left lower quadrant pain, no guarding or rebound. No specific pain at McBurney's. No right upper quadrant pain. She does have some left-sided back pain near her flank. Moves all extremities without any difficulty or pain. Skin does not show any obvious rashes or lesions, no trauma. Alert oriented ?3 with no gross focal deficit Emergency Department Course and Treatment: Patient has an unremarkable workup. She raised the question of possible kidney stone, I looked at her last CAT scan a few days ago and there was no renal stone, doubt one would form that fast. She has had 18 CAT scans just in our system at this institution, I do not believe she would benefit from another CT today. She has a benign abdomen. She has an appointment with Dr. Huynh in a few hours. She has opiate analgesics at home. Discharge stable condition Impression: Abdominal pain This note was generated with [employer] dictation software. It may contain incorrect words, spelling, and punctuation that were not noted in review of the chart freddie or to signing ED Disposition - Plan for ED Patient: Disposition: Home or Assisted Living Chief Complaint: Abd Pain Instructions: ED Abdominal Pain Unkn Cause Referrals: Care Physician,No Primary [Primary Care Provider] - Additional Instructions: Follow-up with Dr. Huynh today as scheduled
[2018-07-25] MEDS: Morphine 4 MG/ML Syringe IV ×2 (03:52→05:05)
[2018-07-25] MEDS: Ondansetron 4 MG/2 ML Vial IV (03:52)
[2018-07-25] MEDS: 0.9% Normal Saline 1,000 ML 1000 ML IV (03:52)
[2018-07-25 03:56] LABS: Absolute Lymphocyte Count 4.17 X10^3/ul (0.83-4.51); Absolute Neutrophil Count 7.6 X10^3/uL (2.0-7.7); Basophil# 0.06 X10^3/uL; Basophil% 0.5 % (0-1); Eosinophil# 0.31 X10^3/uL; Eosinophils% 2.3 % (0-5); Hematocrit 39.6 % (37-47); Hemoglobin 13.4 g/dl (12.0-15.0); Lymphocyte # 4.17 X10^3/ul (4.0); Lymphocyte % 31.3 % (19-41); Mean Corp Hgb Conc 33.8 g/gl (32-36); Mean Corpuscular Hgb 27.4 pg (27.0-32.0); Mean Platelet Vol. 8.9 fl (6.2-12.0); Monocyte# 1.09 X10^3/uL; Monocyte% 8.2 % (0-10); Platelet Count 361 K/mm3 (150-450); RBC Distribution Width CV 13.4 % (11.6-14.6); RBC Distribution Width SD 38.4 fl (35.1-43.9); Red Blood Count 4.89 M/mm3 (4.2-5.4); White Blood Count 13.3 K/mm3 (4.4-11.0)
[2018-07-25 04:08] LABS: ALB/GLOB Ratio 0.8 RATIO (0.9-2.4); AST(SGOT) 37 U/L (15-37); Alanine Aminotransfer ALT/SGPT 74 U/L (13-56); Albumin, Serum 3.3 g/dL (3.2-5.0); Alkaline Phosphatase 87 U/L (45-117); Anion Gap 11 (5-15); BUN 15 mg/dL (7-18); BUN/Creat Ratio 16.6 RATIO (10-20); Chloride 109 mmol/L (98-107); EST Glomerular Filtration Rate 78 mL/min (>60); Est Glom Filt Rate - Afr Amer 94 mL/min (>60); Estimated Creatinine Clearance 85.56 ml/min; Globulin 4.1 g/dL (2.2-4.2); Glucose 93 mg/dL (74-106); Potassium 3.6 mmol/L (3.5-5.1); Protein, Total 7.4 g/dL (6.4-8.2); Sodium Level 142 mmol/L (136-145)
[2018-07-25 04:14] LABS: Mucous, Urine 0 SEEN /hpf (<or=2+)
[2018-07-25 04:21] LABS: Color, Urine Yellow (Yellow); Glucose, Dipstick Normal (Normal); Ketone-Dipstick Negative (Negative); Leukocyte Esterase-Dipstick 25 /ul (Negative); Nitrite-Dipstick Negative (Negative); Occult Blood-Urine 150 /ul (Negative); Protein-Dipstick 30 mg/dl (Negative); Urine Bilirubin Dipstick Negative (Negative); Urine Clarity Sl. Cloudy (Clear); Urine Urobilinogen Normal (Normal)
[2018-07-25 04:24] LABS: POSITIVE COUNT NO; POSITIVE DIFFERENTIAL NO; POSITIVE MORPHOLOGY NO
[2018-07-25 04:27] LABS: Bacteria 1+ /hpf (None Seen); Red Blood Cells-Urine 10-25 SEEN /hpf (0-5); Squamous Epithelial Cells - UA 5-10 SEEN /hpf (5-10); White Blood Cells 0-5 SEEN /hpf (0-5)
[2018-07-25 05:10] VITALS: BP 139/99; PULSE 72; RESP 18; O2SAT 100
--- NOTE | 2018-07-25 05:14 | NURSING ---
PATIENT DISCHARGED WITH HER MOTHER N LAW TO HOME.
== END 2018-07-25 05:14 | disposition home or self-care (01) ==
PROVIDERS: Emergency Provider Emergency Medicine
DX: R10.9 Unspecified abdominal pain (principal); R19.7 Diarrhea, unspecified; M54.9 Dorsalgia, unspecified; F32.9 Major depressive disorder, single episode, unspecified; F41.9 Anxiety disorder, unspecified; Z79.899 Other long term (current) drug therapy; R11.0 Nausea
CPT/HCPCS: 80053; 81001; 85025; 96361; 96374; 96375; 96376; 99284; J7030; J2405

== ENCOUNTER 2018-09-12 14:23 | Emergency (ER) | payer SELFPAY ==
[2018-09-12 14:25] VITALS: BP 140/107; PULSE 71; RESP 16; TEMP 37.1; O2SAT 97; BMI 37.4
--- NOTE | 2018-09-12 15:02 | ED.RN ---
pt denies si right now. states i have a son to take care of. dr see in with pt. verbalizes pt does need 1:1 at this time. DONNA DURAN AT BEDSIDE. TO EVALUATE PT.
[2018-09-12 15:13] LABS: Amphetamine Urine VISTA NEGATIVE (<1000 ng/mL); Barbiturate Urine VISTA NEGATIVE (< 200 ng/mL); Benzodiazepine Urine VISTA NEGATIVE (< 200 ng/mL); Cocaine Urine VISTA NEGATIVE (< 300 ng/mL); Ecstacy Urine VISTA NEGATIVE (< 500 ng/mL); Methadone Urine VISTA NEGATIVE (< 300 ng/mL); PCP Urine VISTA NEGATIVE (< 25 ng/mL); THC Urine VISTA NEGATIVE (< 50 ng/mL); Vista UDS pH Range 5
--- NOTE | 2018-09-12 15:18 | ED.DCSUM_ITS ---
- ER Visit Summary Date of Service: 09/12/18 Chief Complaint: Needs someone to talk to History of Present Illness: The patient is a 32 F who is here for counseling and depression. She has a history of PTSD, anxiety, and depression. She is here today because she is upset and has no one to talk to in her life. She was initially triaged for suicidal thoughts. She states that she is not suicidal. She took her son to counseling today, and listen to the things that he was talking about, and she felt like a bad mother. She felt very depressed and upset and wanted someone to talk to. She is not suicidal, but has had suicidal thoughts in the past. She has thought about hanging herself or running into traffic, but she has not had any suicidal thoughts today. She does not want to hurt anyone. She denies any pain or medical complaints. Physical Examination: Afebrile and vital signs unremarkable. Patient is alert and oriented. Makes good eye contact. Depressed mood and flat affect. Denies suicidal or homicidal thoughts. Clean and well kempt. Head and neck are atraumatic. Heart regular. Lungs clear. Abdomen soft. Moves all extremities. Skin appears normal. Test Results: Labs including tox and alcohol testing were performed. Results are pending. Emergency Department Course and Treatment: Patient presents with mental health issues. After discussion with the patient and the nurse. The patient is not suicidal. She is not or has not been suicidal today. She has had suicidal thoughts in the past, and disclosed this to nursing. This initially triggered suicidal precautions and testing. On discussion with the patient and evaluation, I believe that she needs some resources to help with her mood disorder and her feelings. She exhibits forward thinking and wants to get help. She is cooperative and engaged. I canceled the suicide precautions. We will have social work talk to the patient as well. Social work evaluated the patient. They also do not believe the patient is suicidal or threat to her own safety or the safety of others. They are arranging follow-up. Patient is happy with this plan. There is no indication for emergency admission. Patient was advised to return at any time if she has new or worsening issues. Treatment Plan: As above Disposition: Pending social work evaluation Impression: 1. Mood disorder This note was generated with [employer] software. It may contain incorrect words, spelling, and punctuation that were not noted in review of the chart prior to signing ED Disposition - Plan for ED Patient: Chief Complaint: Suicidal Referrals: Care Physician,No Primary [Primary Care Provider] -
--- NOTE | 2018-09-12 15:38 | CM.ED ---
Social Work Assessment Referral Date: 09/12/18 Reason for Consult: Depression, Suicidal Thoughts Informant: Rachael SHORT via Mental Health Consult Information obtained from: Medical record and pt. Pt is alert and oriented x4. Presents with flat affect as evidenced by no change in voice or expression throughout conversation. Living Arrangements: Pt reports to live with her significant other, Jose, and two boys. Jose is the father of both boys. Reports to have stable housing. 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 States that they have tried to apply for Medicaid and were told that they make too much. Her two children are on Medicaid, but she is not. Jose does not have benefits through the dairy farm. Supports: Limited. Pt identifies significant other, but states that he does not get it and becomes frustrated when she feels depressed. No family lives locally. Pt was raised in the foster care system and does not talk to any of her foster parents, and reports that she does not talk to her siblings she was raised with as it brings up too many memories. Stressors: Pt presents today after her 8 year olds counseling appointment, where he stated that he felt like his family was falling apart. Pt now states that she feels as though she is a bad mom because of this comment. Emotional support provided. Son has anxiety and presently they are speculating that he may have ADHD, which is an additional stress at this time. Mental Health Hx: Pt reports a hx of depression, anxiety and PTSD. She presently sees Dr. Tee (counselor) at [facility] and NIT[facility] Motley. She is prescribed Wellbutrin and Gabapentin which she states that she feels again as though no one is listening to her because she used to Ativan, Ambien and Xanax when she went to [facility] as a teenager, quit taking those medications at 23 years old. She sees her counselor once a month approximately and states that she has an appointment coming up in just a few days. She states that she feels as though Dr. Tee does a good job, but she does not connect with her. States that she needs a counselor that is more gentle and that she connects with, denies that she needs an increase in appointments. Educate to PHP and IOP and pt states that she does not feel she requires that much, and that she does not have insurance and has to go to [facility]. Pt is agreeable to this adjusto writer operator trying to establish her with a new counselor. Pt states that she does have suicidal thoughts daily. States that they are easy to control because she does not want to complete suicide and wants to be around her kids and there for them. States she has thought about overdosing, hanging herself or walking into traffic. She did attempt suicide by overdose as a teenager. States she took 6 of my anti-depressant but does not remember the name of the medication. Reports that 5 years ago she tried to walk into traffic but Jose interrupted her. She has been placed in psychiatric hospitals in the past for suicidal ideation. Pt repeats several times that she has no intent to harm herself and just wanted help. Placed call to [facility] and request a change in counselor. Viviane the chief hydroelectric station operator forwarded this SW to Dr. Tee's voicemail, and this adjusto writer operator left a message with pt's concerns. Placed another call and tried to establish a f/u crisis appointment following todays events and Viviane told this adjusto writer operator she could setup an appointment on 09/20 at 2pm. The pt also has an appointment with NITESH De Leon, on Saturday 09/16 at 4 pm. Inquire if crisis were safety planning the pt home if they had follow-up appointments states yes, for them. Again explain that this adjusto writer operator is safety planning the pt home and still unable to obtain a f/u crisis appointment. Substance Use Hx: Pt denies substance abuse history. Interventions: Assessment complete, and deem pt appropriate to discharge home with support of significant other and with an appointment on 09/16 with Silvia Pollard. Provide pt with crisis line if thoughts increase or are uncontrollable. Pt confirms that she is able to keep herself safe. Updated physician and RN and pt safe to discharge home. PLAN: Discharge home with support of spouse. Appointment at [facility] on 09/16 at 4pm SYDNEY Howard, MACY
--- NOTE | 2018-09-12 15:52 | ED.DEP ---
ED Disposition - Plan for ED Patient: Chief Complaint: Mental Health Instructions: ED Contract, No Harm Additional Instructions: follow up with mental health as directed
--- NOTE | 2018-09-12 16:23 | CM.ED ---
Social Work Note Face to face with pt again to discuss plan. Inform that she has an appointment with Silvia Pollard on 09/16 at 4pm and a counseling appointment on 09/20 at 2pm. Pt confirms that she can keep herself safe and feels safe returning home. Denies any intent at this time. Inquired if there is anything else this documentation writer or staff can do and pt declines. Pt thanks this documentation writer. Physician updated and to place discharge order. Discuss case with SS Client Service Manager, LADAN Barbosa. SYDNEY Howard LISW
[2018-09-12 16:32] VITALS: PULSE 70; RESP 14; O2SAT 98
== END 2018-09-12 16:33 | disposition home or self-care (01) ==
LOC: ED 15:38
PROVIDERS: Emergency Provider Emergency Medicine
DX: F39 Unspecified mood [affective] disorder (principal); F32.9 Major depressive disorder, single episode, unspecified; F41.9 Anxiety disorder, unspecified; F43.10 Post-traumatic stress disorder, unspecified; X58.XXXA Exposure to other specified factors, initial encounter; Y93.9 Activity, unspecified; Y92.9 Unspecified place or not applicable; Y99.9 Unspecified external cause status; Z79.899 Other long term (current) drug therapy
CPT/HCPCS: 80307; 99283

== ENCOUNTER 2018-09-25 10:56 | Emergency (ER) | payer SELFPAY ==
[2018-09-25 10:57] VITALS: BP 164/109; PULSE 89; RESP 18; TEMP 36.7; O2SAT 99; BMI 38.2
--- NOTE | 2018-09-25 11:07 | ED.VISSUMM ---
- ER Visit Summary Date of Service: 09/25/18 Chief Complaint: Fall History of Present Illness: The patient is a 32 F who presents with left ankle and leg pain that began after a fall today. Patient states she slipped on ice and fell forward. Patient states the pain is sharp. Patient states her pain is worse with walking. Patient admits to some tingling in her toes but denies any weakness. Patient denies any head injury or loss of consciousness. Patient denies any other injuries. Physical Examination: Vital signs are stable. Patient is afebrile. Patient is in no acute distress. Musculoskeletal exam reveals tenderness, edema, ecchymosis over the lateral aspect of the left ankle. There is no bony deformity noted. There is no crepitance or step-off. Range of motion was limited in all motions of the left ankle secondary to pain. There is no tenderness over the fifth metatarsal. There is no tenderness of the proximal fibula. Pedal pulses are equal bilaterally. Sensation was intact to light touch in all digits. The remaining physical exam is within normal limits. Test Results: X-rays of the left ankle were obtained. There is no acute fracture. Emergency Department Course and Treatment: Patient was given an Aircast. Patient was instructed to ice and elevate the left ankle. Patient was given a prescription for ibuprofen for pain. Patient was instructed to follow-up with her primary care physician in 5-7 days. Patient understood and was agreeable with the plan. All questions were answered. Disposition: Discharge home Impression: Acute sprain left ankle This note was generated with [employer] dictation software. It may contain incorrect words, spelling, and punctuation that were not noted in review of the chart prior to signing ED Disposition - Plan for ED Patient: Disposition: Home or Assisted Living Chief Complaint: Lower Extremity Injury Diagnosis: Left ankle sprain Instructions: ED Sprain Ankle W X Ray Prescriptions: Ibuprofen 800 mg PO Q8H PRN PRN #20 tab PRN Reason: Pain Referrals: Care Physician,No Primary [Primary Care Provider] -
--- NOTE | 2018-09-25 11:30 | RAD_ITS ---
STUDY: X-RAY - LEFT ANKLE REASON FOR EXAM: Female, 32 years old. fell on ice today pain on left lateral ankle TECHNIQUE: 3 view(s) of the ankle. COMPARISON: Prior comparison studies are not available for review at this time. FINDINGS: Normal visualized distal tibia and fibula. Normal medial and lateral malleoli. Normal tibiotalar articulation and ankle mortise. Normal visualized talus and calcaneus. Large plantar calcaneal spur noted. Enthesopathy is noted at the insertion site of the Achilles. The visualized subtalar, talonavicular, calcaneocuboid and tarsal articulations are normal. The soft tissue structures are unremarkable. RAD/Ankle min 3 Views IMPRESSION: No acute abnormality. Electronically Signed: Elli Rodriguez MD at 11:55 EST , Service support ,
[2018-09-25 12:33] VITALS: BP 108/67; PULSE 52; RESP 16; O2SAT 98
--- OUTSIDE RECORDS SUMMARY | 2018-11-30 08:00 | XMS RPT_ITS ---
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 Hematologic: The patient denies a history of bruising, denies bleeding, and denies anemia, denies blood clots. Infections: The patient denies a history of measles and mumps, denies rheumatic fever, and denies sexually transmitted diseases. Musculoskeletal: The patient denies back pain/injury, notes back problems, denies sciatica, denies knee/foot trouble, denies arthritis, or denies gout. When was patient's last Mammogram screening? N/A Last Colonoscopy: 2011 Veronique Gan RN PHYSICAL EXAMINATION: General: The patient is 32 year old female, well nourished, well hydrated in no acute distress. The patient is oriented to time, place, and person. VITALS: Blood pressure 122/82, pulse 76, temperature 36.5 ?C (97.7 ?F), weight 106.3 kg (234 lb 6.4 oz). Body mass index is 36.79 kg/m?. HEENT: Normal cephalic, ataumatic, pupils are asymmetric with the left pupil more dilated than the right and both pupils poorly reactive. sclera are anicteric, mucous membranes are moist, oropharynx is clear. Neck has no masses, asymmetry or lymphadenopathy. Thyroid is unremarkable. Respiratory: Clear to auscultation and percussion. Normal respiratory excursion and pattern. Cardiac: Examination is regular rate and rhythm. No murmurs, rubs, or additional heart tones. Abdominal exam: Soft, nontender, with no palpable masses. No hepatosplenomegaly. No palpable hernias. Rectal exam: exam deferred Extremities: no clubbing, cyanosis or edema. No adenopathy. Other: LABORATORY VALUES: As Noted RADIOLOGIC STUDIES: As Noted Assessment IMPRESSION: Abdominal pain, anxiety, depression, PTSD, diarrhea, abnormal CT scan imaging- colon PLAN: I plan to perform upper and lower endoscopy. We discussed the risks and benefits of the planned endoscopy. I have informed the patient that complications can occur including failure to complete the endoscopy and perforation. The patient had the opportunity to ask questions concerning the planned endoscopy. My staff has also explained the procedure to the patient in understandable terms and has given the patient printed material concerning the procedure. The patient freely consents to surgery. I plan to use golytely bowel preparation for endoscopy I plan for monitored anesthetic care. We'll discuss with the patient the possibility of obtaining an ophthalmology evaluation given her pupils and the possibility of unknown head or ocular trauma in the past even though the patient has no other focal deficits. Diagnoses: (R10.84) Generalized abdominal pain (primary encounter diagnosis) (R19.7) Diarrhea, unspecified type My findings have been communicated to Dr. SASHA COUGHLIN MD via shared medical record. This note will be forwarded to Dr. SASHA COUGHLIN MD. Return to Clinic: The patient is instructed to follow-up with me after the testing has been completed. Jovanny Madrigal MD EMERGENCY DEPARTMENT Observed: 07/18/2018 Status: F Source: [place] SUMMARY 5:46 PM [facility] REPOSITORY [facility] Medical Records Department [address] [place] [address] Emergency Department Summary 07/18/18 0921 MR#: [id number] Acct: [id number] Name: SONDRA SERRANO Rep #: [id number] : 1985 32 From: Wily Brewer MD PCP: Care Physician, No Primary Status: DEP ER - ER Visit Summary Date of Service: 07/18/18 Chief Complaint: Abdominal pain History of Present Illness: The patient is a 32 F with no primary care physician. She reports that she has abdominal pain began 3 days ago. It is a continuous pain that waxes and wanes. She describes it as squeezing. Is 10 out of 10 in severity currently and at worst. She reports is worsened by standing up and relieved by bearing down. She has had nausea without vomiting. She had one episode of diarrhea at 4:00 this morning. No blood in her stools or black tarry stools. No dysuria or frequency. Her last menstrual period was last week. She denies any vaginal bleeding or discharge. She denies fever. She does report she has had chills. Physical Examination: Vitals: Stable. Afebrile. General: Well-nourished and well-developed. Head: Normocephalic atraumatic. Neck: Supple, no lymphadenopathy. No JVD. Nontender. Cardiovascular: Regular rate and rhythm. No murmurs. Respiratory: No respiratory distress. Clear to auscultation bilaterally. Abdominal: Soft, moderate diffuse tenderness to palpation, nondistended, normal bowel sounds. No guarding, rebound, or peritoneal signs. Back: Nontender. Extremities: Nontender, no edema. Skin: Normal color, no rash. Neurologic: Alert and oriented 3. Cranial nerves II through XII are intact. Normal strength and sensation. Psych: Normal affect. Test Results: Patient was seen in the emergency department yesterday and had labs obtained. The BMP was not repeated. At that time her chloride was 109 and her calcium was 8.4. She had a UA that was negative and a test that were negative. These were not repeated. Patient had a repeat CBC which shows her white count is 13.9 with 77 segmented neutrophils and 13 lymphocytes. Her white count was 11.4 yesterday. Clinical Impression(s) from Imaging Studies Abdomen/Pelvis CT 07/18/18 08:57 IMPRESSION: Tiny right pleural effusion. Findings suggestive of colitis as described. Electronically Signed: Molina Luis MD at 10:30 EST Tel [phone], Service support , Emergency Department Course and Treatment: Patient had an IV placed. She was given Toradol and Zofran IV. When the CT returned she was given Cipro and Flagyl p.o. She is resting comfortably. Treatment Plan: Patient was discussed with Dr. Huynh. She has been unable to produce a stool sample for culture here. She will be discharged on Cipro, Flagyl, [place]. Instructed follow-up Dr. Huynh in 1 week for another exam. Return to the emergency department for any worsening symptoms. Disposition: To home in improved and stable condition. Impression: 1. Colitis. This note was generated with [employer] software. It may contain incorrect words, spelling, and punctuation that were not noted in review of the chart prior to signing ED Disposition - Plan for ED Patient: Disposition: Home or Assisted Living Chief Complaint: Abd Pain Instructions: ED Gastroenteritis Bacterial Prescriptions: Hydrocodone Bitart/Apap 5-325 [[place] 5MG-325MG] 1 tablet PO Q4H PRN PRN 2 Days #10 tablet PRN Reason: Pain Ondansetron [Zofran Odt] 4 mg PO Q8H PRN PRN #10 tablet PRN Reason: Nausea Ciprofloxacin [Cipro] 500 mg PO BID #20 tablet Naproxen [Naprosyn] 500 mg PO BID #14 tablet Metronidazole [Flagyl] 500 mg PO Q6H #40 tablet Referrals: Jovanny Madrigal MD [STAFF PHYSICIAN] - 1 Week What to do if you have Problems For any increased pain, shortness of breath, bleeding, nausea or vomiting, chest pain, or any unexpected problems, contact your Primary Care Provider. Call [facility] ([phone]) or report to the closest Emergency Room. Call 911 if necessary. 07/18/18 1746 <Electronically signed by Wily Brewer MD> Date Wily Brewer MD Cosigner Signature (If Indicated): Date CC: No Primary Care Physician CBC W/DIFF, AUTOMATED Collected: 07/18/2018 Status: F Source: [place] 9:07 AM [facility] REPOSITORY TYPE CODE TESTS RESULT OUT OF RANGE REFERENCE UNITS LAB L100.1000 4.4-11.0 K/mm3 High WBC 13.9 LAB L100.1200 4.2-5.4 M/mm3 Normal RBC 4.95 LAB L100.1300 12.0-15.0 g/dl Normal HGB 13.9 LAB L100.1400 37-47 % Normal HCT 41.1 LAB L100.1500 81-99 fL Normal MCV 83.0 LAB L100.1600 27.0-32.0 pg Normal MCH 28.1 LAB L100.1700 32-36 g/gl Normal MCHC 33.8 LAB L100.1810 11.6-14.6 % Normal RDW CV 13.6 LAB L100.1820 35.1-43.9 fl Normal RDW SD 40.7 LAB L100.1900 150-450 K/mm3 Normal PLT 218 LAB L100.2000 6.2-12.0 fl Normal MPV 9.3 LAB L100.2100 47-70 % High NEUT% 77.3 LAB L100.2200 19-41 % Low LY% 12.9 LAB L100.2300 0-10 % Normal MONO% 9.3 LAB L100.2400 0-5 % Normal EO% 0.2 LAB L100.2500 0-1 % Normal BASO% 0.1 LAB L100.2550 0.0-0.9 % Normal IM GRAN % 0.200 Result Comment: IG% - Immature Granulocytes (promyelocytes, myelocytes and metamyelocytes) > 1% indicates that a LEFT SHIFT is Present. LAB L100.2620 2.0-7.7 X10 3/uL High Absolute Neut 10.7 LAB L100.2720 0.83-4.51 X10 3/ul Normal Absolute Lymph 1.79 Performed By: #### L100.0100 #### [facility] [address] [place], [address] LIVER PROFILE Collected: 07/18/2018 Status: F Source: [place] 9:07 [facility] REPOSITORY TYPE CODE TESTS RESULT OUT OF RANGE REFERENCE UNITS LAB L501.1500 6.4-8.2 g/dL Normal T PROT 7.7 LAB L501.1800 3.2-5.0 g/dL Normal ALB 3.2 LAB L501.1950 2.2-4.2 g/dL High GLOB 4.5 LAB L501.4100 15-37 U/L Normal AST 17 Result Comment: Moderate Hemolysis, Result may be falsely increased. LAB L501.4305 45-117 U/L Normal ALK P 104 LAB L501.4405 13-56 U/L Normal ALT 21 LAB L501.4600 0.20-1.00 mg/dL Normal T BILI 0.40 LAB L501.4700 0.00-0.30 mg/dL Normal D BILI 0.08 Performed By: #### L500.3400, L501.2450 #### [facility] [address] [facility]. [place], [place], [id number] LIPASE Collected: 07/18/2018 Status: F Source: [place] 9:07 [facility] REPOSITORY TYPE CODE TESTS RESULT OUT OF RANGE REFERENCE UNITS LAB L501.2450 73-393 U/L Normal LIPASE 80 Performed By: #### L500.3400, L501.2450 #### [facility] [address] [place], [address] ABDOMEN/PELVIS WITHOUT Observed: 07/18/2018 Status: F Source: [place] CONT 8:58 AM [facility] REPOSITORY [facility] Imaging Services [address] [place] [address] Abdomen/Pelvis without Cont MR#: [id number] Acct: [id number] Name: SONDRA SERRANO Rep #: [id number] : 1985 F 32 From: Molina Luis MD PCP: Care Physician, No Primary Status: REG ER Study: Abdomen/Pelvis without Cont Date of Exam: 07/18/18 Exam# [id number] Ordering Dr: Wily Brewer MD STUDY: CT ABDOMEN AND PELVIS WITHOUT CONTRAST REASON FOR EXAM: Female, 32 years old. Increasing abdominal pain since yesterday. History of ovarian cysts and kidney cysts. RADIATION DOSAGE (If Supplied By Facility): CTDIvol = ( 17.43 ) mGy, DLP = ( 914.6 ) mGycm TECHNIQUE: Transaxial images were obtained from the dome of the diaphragm to the symphysis pubis without oral contrast, and without intravenous contrast. Sagittal and coronal images were reconstructed. Individualized dose optimization techniques were used for this CT. COMPARISON: Comparison is made with prior study dated March 05, 2018. FINDINGS: There is a tiny right pleural effusion. The visualized portions of the heart are within normal limits. Normal liver. There are surgical clips in the gallbladder fossa consistent with a prior cholecystectomy. Normal spleen. Normal pancreas. Normal bilateral adrenal glands. Normal right kidney. Normal left kidney. Normal visualized stomach. Normal small intestine. There is evidence of a thickening of the right hemicolon with increased markings in the surrounding peritoneal fat suggestive of colitis. There is also evidence of thickening and increased markings in the surrounding peritoneal fat in the left hemicolon. Colitis should be ruled out. The appendix is visualized and appears normal. Normal abdominal aorta. Normal inferior vena cava. There is borderline retroperitoneal lymphadenopathy with enlarged nodes no greater than 10mm in the short axis diameter. Normal urinary bladder. Follicles are seen in the right ovary. There is a small umbilical hernia containing fat. Straightening of the normal lumbar lordosis. CT/Abdomen/Pelvis without Cont IMPRESSION: Tiny right pleural effusion. Findings suggestive of colitis as described. Electronically Signed: Molina Luis MD at 10:30 EST Tel [phone], Service support , CC: No Primary Care Physician; Wily Brewer MD Payroll Accountant: Signed EMERGENCY DEPARTMENT Observed: 07/17/2018 Status: F Source: [place] SUMMARY 3:07 PM [facility] REPOSITORY [facility] Medical Records Department [address] [place] [address] Emergency Department Summary 07/17/18 0930 MR#: [id number] Acct: [id number] Name: SONDRA SERRANO Rep #: [id number] : 1985 32 From: Rc Salinas MD PCP: Care Physician, No Primary Status: DEP ER - ER Visit Summary Date of Service: 07/17/18 Chief Complaint: Abdominal cramping History of Present Illness: The patient is a 32 F medical history of ovarian cyst and a left kidney stone also anxiety. Patient is Ab0. History of depression. Prior abdominal surgeries include umbilical hernia repair, cholecystectomy and 2 C-sections. She states the last 3 days she has had crampy abdominal pain. Began on Sunday. Associated nausea. No vomiting. No diarrhea. No fever. No dysuria. No melena. No back pain. Last menstrual period was approximately 1 week ago. She denies any vaginal bleeding or discharge. Physical Examination: Well-appearing young female. Vital signs are stable afebrile. She does not look septic or toxic. She is in no acute distress. H EENT exam unremarkable. Moist mucous membranes. Neck nontender. No lymphadenopathy. Lungs clear to auscultation bilaterally. Heart regular rate and rhythm no murmur rate about 100. Abdomen is soft. Nondistended. Normal bowel sounds. She is very minimal discomfort in the epigastric region. No rebound, guarding or rigidity. No signs of traction. No hernias or masses appreciated. Both the right upper right lower quadrants are unremarkable. There is no McBurney's point tenderness. Patient is moving all 4 extremities. They are neurovascularly intact. Back exam nontender. Skin unremarkable. Neurologically she is awake and alert with no focal motor deficits. Test Results: Showed a white count 11.4. Hemoglobin 13. No bands. Chemistries unremarkable normal gap and creatinine. Liver enzymes and lipase normal. UA negative. Serum test negative. Emergency Department Course and Treatment: She will be treated with IV Zofran for her nausea. Will obtain screening labs but my clinical suspicion is low. She has had at least 4 abdominal and pelvic CAT scans in the last year and a half, all of which were basically unremarkable except for an ovarian cyst and a kidney stone that was in the kidney. Repeat exam at 10:01 AM signs. No localizing right lower quadrant tenderness. She and I discussed all of her test results. She will be discharged to home. Treatment Plan: Zofran for nausea. Tylenol for pain. Follow- up with your doctor as needed. Return if worse. Disposition: Discharge Impression: Acute abdominal pain of uncertain etiology Nausea Anxiety This note was generated with [employer] dictation software. It may contain incorrect words, spelling, and punctuation that were not noted in review of the chart prior to signing ED Disposition - Plan for ED Patient: Chief Complaint: Abd Pain Referrals: Care Physician,No Primary [Primary Care Provider] - What to do if you have Problems For any increased pain, shortness of breath, bleeding, nausea or vomiting, chest pain, or any unexpected problems, contact your Primary Care Provider. Call [facility] ([phone]) or report to the closest Emergency Room. Call 911 if necessary. 07/17/18 1507 <Electronically signed by Rc Salinas MD> Date cR Salinas MD Cosigner Signature (If Indicated): Date CC: No Primary Care Physician DISCHARGE INSTRUCTION Observed: 07/17/2018 Status: F Source: [place] 3:07 PM [facility] REPOSITORY [facility] Medical Records Department [address] [address] Discharge Instruction 07/17/18 1003 MR#: [id number] Acct: [id number] Name: SONDRA SERRANO Rep #: [id number] : 1985 32 From: Rc Salinas MD PCP: Care Physician, No Primary Status: DEP ER ED Disposition - Plan for ED Patient: Disposition: Home or Assisted Living Chief Complaint: Abd Pain Instructions: ED Abdominal Pain Unkn Cause Prescriptions: Ondansetron [Zofran Odt] 4 mg PO Q4H PRN PRN #7 tab.rapdis PRN Reason: Nausea Referrals: Ugo Quarles MD [STAFF PHYSICIAN] - 1 Week if not improving Additional Instructions: Plenty of fluids and rest. Zofran as needed for nausea. Follow-up with a local primary care physician or return to ER if feeling a lot worse. What to do if you have Problems For any increased pain, shortness of breath, bleeding, nausea or vomiting, chest pain, or any unexpected problems, contact your Primary Care Provider. Call [facility] ([phone]) or report to the closest Emergency Room. Call 911 if necessary. 07/17/18 3166 <Electronically signed by Rc Salinas MD> Date Rc Salinas MD Cosigner Signature (If Indicated): Date CC: No Primary Care Physician URINALYSIS, COMPLETE Collected: 07/17/2018 Status: F Source: [place] 9:00 AM [facility] REPOSITORY Order Comment: How was Urine Obtained? CLEAN CATCH TYPE CODE TESTS RESULT OUT OF RANGE REFERENCE UNITS LAB L400.3000 Yellow COLOR Normal YELLOW LAB L400.3050 Clear Sl Normal CLARITY Cldy LAB L400.3200 Normal mg/dl Normal GLUCOSE, UR NEGATIVE LAB L400.3300 Negative mg/dL Normal BILIRUBIN URINE Negative LAB L400.3400 Negative mg/dl Normal KETONE UR Negative LAB L400.3465 1.002-1.030 Normal SP.GR. DIPSTX 1.005 LAB L400.3550 5.0 - 8.0 pH UR Normal 7.0 LAB L400.3600 Negative mg/dl High PROT 30 DIPSTX LAB L400.3700 Normal mg/dl Normal UROBILI Normal LAB L400.3750 Negative Normal NITRITE UR Negative LAB L400.3780 Negative /ul Normal OCCULT BLOOD-UR Negative LAB L400.3800 Negative /ul LEUK Normal ESTERASE Negative LAB L400.4050 0-5 /hpf WBC 0 Normal SEEN LAB L400.4100 0-5 /hpf 0 Normal RBC-UA SEEN LAB L400.4150 5-10 /hpf SQUAM Normal EPI 5-10 SEEN LAB L400.4300 None Seen /hpf 1+ Normal BACTERIA LAB L400.4350 <or=2+ /hpf 0 Normal MUCUS, URINE SEEN Performed By: #### L400.0001 #### [facility] [address] [place], [address] CBC W/DIFF, AUTOMATED Collected: 07/17/2018 Status: F Source: [place] 8:55 AM [facility] REPOSITORY TYPE CODE TESTS RESULT OUT OF RANGE REFERENCE UNITS LAB L100.1000 4.4-11.0 K/mm3 High WBC 11.4 LAB L100.1200 4.2-5.4 M/mm3 Normal RBC 4.94 LAB L100.1300 12.0-15.0 g/dl Normal HGB 13.8 LAB L100.1400 37-47 % Normal HCT 41.1 LAB L100.1500 81-99 fL Normal MCV 83.2 LAB L100.1600 27.0-32.0 pg Normal MCH 27.9 LAB L100.1700 32-36 g/gl Normal MCHC 33.6 LAB L100.1810 11.6-14.6 % Normal RDW CV 13.5 LAB L100.1820 35.1-43.9 fl Normal RDW SD 41.0 LAB L100.1900 150-450 K/mm3 Normal PLT 221 LAB L100.2000 6.2-12.0 fl Normal MPV 9.4 LAB L100.2100 47-70 % High NEUT% 77.3 LAB L100.2200 19-41 % Low LY% 13.3 LAB L100.2300 0-10 % Normal MONO% 8.7 LAB L100.2400 0-5 % Normal EO% 0.4 LAB L100.2500 0-1 % Normal BASO% 0.2 LAB L100.2550 0.0-0.9 % Normal IM GRAN % 0.100 Result Comment: IG% - Immature Granulocytes (promyelocytes, myelocytes and metamyelocytes) > 1% indicates that a LEFT SHIFT is Present. LAB L100.2620 2.0-7.7 X10 3/uL High Absolute Neut 8.9 LAB L100.2720 0.83-4.51 X10 3/ul Normal Absolute Lymph 1.52 Performed By: #### L100.0100 #### [facility] [address] [place], [address] BASIC METABOLIC Collected: 07/17/2018 Status: F Source: [place] PROFILE ([facility]) 8:55 AM [facility] REPOSITORY TYPE CODE TESTS RESULT OUT OF RANGE REFERENCE UNITS LAB L501.0100 74-106 mg/dL Normal GLU 84 Result Comment: Please note revised GLUCOSE reference range effective 2017. LAB L501.1000 7-18 mg/dL Normal BUN 11 LAB L501.1100 0.55-1.02 mg/dL Normal CREAT,SERUM 0.90 Result Comment: The validity of the calculated GFR AND GFRAA in patients over 70 years has not been determined. Clinical correlation is essential. LAB L501.1110 >60 mL/min Normal EST GFR 77 Result Comment: Non- GFR Calc LAB L501.1115 >60 mL/min Normal EST GFR - AA 94 Result Comment: GFR Calc LAB L501.1255 ml/min Normal Estimated CRCL 85.56 LAB L501.1300 10-20 RATIO Normal BUN/CRE 12.2 LAB L501.2200 8.5-10 mg/dL Low .1 CA 8.4 LAB L501.5300 136-14 mmol/L Normal 5 NA 142 LAB L501.5600 3.5-5. mmol/L Normal 1 K 3.9 LAB L501.5900 98-107 mmol/L High CL 109 LAB L501.6100 21.0-3 mmol/L Normal 2.0 CO2 25.0 LAB L501.6200 5-15 Normal GAP 8 Performed By: #### L500.2500, L500.3400, L501.2450 #### [facility] [address] [place], [place], [id number] LIVER PROFILE Collected: 07/17/2018 Status: F Source: [place] 8:55 AM [facility] REPOSITORY TYPE CODE TESTS RESULT OUT OF RANGE REFERENCE UNITS LAB L501.1500 6.4-8.2 g/dL Normal T PROT 7.6 LAB L501.1800 3.2-5.0 g/dL Normal ALB 3.3 LAB L501.1950 2.2-4.2 g/dL High GLOB 4.3 LAB L501.4100 15-37 U/L Low AST 8 LAB L501.4305 45-117 U/L Normal ALK P 104 LAB L501.4405 13-56 U/L Normal ALT 21 LAB L501.4600 0.20-1.00 mg/dL Normal T BILI 0.40 LAB L501.4700 0.00-0.30 mg/dL Normal D BILI 0.12 Performed By: #### L500.2500, L500.3400, L501.2450 #### [facility] [address] [facility]. [place], [place], [id number] LIPASE Collected: 07/17/2018 Status: F Source: [place] 8:55 AM [facility] REPOSITORY TYPE CODE TESTS RESULT OUT OF RANGE REFERENCE UNITS LAB L501.2450 73-393 U/L Normal LIPASE 81 Performed By: #### L500.2500, L500.3400, L501.2450 #### [facility] [address] [place], [address] ,SERUM,HCG QUALI. Collected: Status: F Source: [place] 07/17/2018 8:55 AM [facility] REPOSITORY TYPE CODE TESTS RESULT OUT OF REFERENCE UNITS RANGE LAB L700.7000 0-9 Nonpreg Negative Normal HCGSQUAL NEGATIVE LAB L700.6700 =>Qualitative mIU/mL Normal HCG Qual < 1 triggr Performed By: #### L700.6800 #### [facility] [address] [place], [address] 12 LEAD ELECTROCARDIOGRAM Observed: 07/01/2018 Status: F Source: [place] 12:43 PM [facility] REPOSITORY [facility] Cardiovascular Services [address] [place] [address] 12 Lead EKG 06/27/18 1449 MR#: [id number] Acct: [id number] Name: SONDRA SERRANO Alisia Rep #: [id number] : 1985 32 From: Jamal Luevano MD Attending Dr: Status: DEP ER Ordering Dr: Yenifer Lee MD Date: 06/27/18 Location: ED Sex: F C Admitted: Test Reason : CP Blood Pressure : / mmHG Vent. Rate : 080 BPM Atrial Rate : 080 BPM P-R Int : 134 ms QRS Dur : 082 ms QT Int : 366 ms P-R-T Axes : 033 062 026 degrees QTc Int : 422 ms Normal sinus rhythm Poor R wave progression Confirmed by CHLOÉ YOO, JAMAL ([id number]), medical transcription editor LIZ MATUTE ([id number]) on 07/01/2018 12:42:46 PM Referred By: JUAQUIN Confirmed By:JAMAL LUEVANO MD 07/01/18 1242 Date Jamal Luevano MD CC: MD Santiago Lee; No Primary Care Physician Signed EMERGENCY DEPARTMENT Observed: 06/27/2018 Status: F Source: [place] SUMMARY 5:01 PM [facility] REPOSITORY [facility] Medical Records Department [address] [place] [address] Emergency Department Summary 06/27/18 1450 MR#: [id number] Acct: [id number] Name: SONDRA SERRANO Rep #: [id number] : 1985 32 From: Yenifer Lee MD PCP: Care Physician, No Primary Status: REG ER - ER Visit Summary Date of Service: 06/27/18 Chief Complaint: [] Upper back pain sense of palpitations chest pain since yesterday History of Present Illness: The patient is a 32 F [] patient mid back sense of palpitation she has had on and off was seen the other day in the emergency department her workup was unremarkable she indicates that pain in her mid back sense of the palpitations, she had no trauma to her back or any part of her body she does report that before the onset of the back pain she had lifted a heavy laundry basket but does not believe she injured herself. She is at work today in the back pain intensified she came in for evaluation. She has history of anxiety depression history of NE PE DVT no risk factors Physical Examination: [] Her vital signs are unremarkable she is resting comforting the bed general, no distress resting comfortably HEENT is generally unremarkable The neck is supple no adenopathy Cardiovascular, regular rate and rhythm Lungs, clear bilateral Abdomen, soft nontender Planes of some vague pain to the mid thoracic area this area is not tender to palpation there is no trauma or bruising here her C-spine T-spine lumbar back unremarkable Extremities, no clubbing cyanosis or edema Neurologic, awake alert answering questions appropriately moving all 4 extremities Test Results: [] Emergency Department Course and Treatment: [] Review of workup from the day shows unremarkable labs d-dimer, given all the above screening labs CTA EKG pain management Patient's EKG all laboratory results were generally unremarkable nothing acute, CTA of chest was obtained because of her persistent complaints of all the above per radiology is negative for all Of explained the test results the patient I explained exact etiology of the back pain and the intermittent sense of palpitations is unclear she needs to follow-up as she has been instructed to do would see her physicians and return for change in symptoms she will be started on Naprosyn for the back pain and she understands this plan will follow Treatment Plan: [] Disposition: [] Home stable Impression: [] Upper back pain etiology unclear, intermittent sense of palpitations This note was generated with [employer] software. It may contain incorrect words, spelling, and punctuation that were not noted in review of the chart prior to signing ED Disposition - Plan for ED Patient: Chief Complaint: Back Referrals: Care Physician,No Primary [Primary Care Provider] - What to do if you have Problems For any increased pain, shortness of breath, bleeding, nausea or vomiting, chest pain, or any unexpected problems, contact your Primary Care Provider. Call [facility] [facility] ([phone]) or report to the closest Emergency Room. Call 911 if necessary. 06/27/18 1701 <Electronically signed by Yenifer Lee MD> Date Yenifer Lee MD Cosigner Signature (If Indicated): Date CC: No Primary Care Physician DISCHARGE INSTRUCTION Observed: 06/27/2018 Status: F Source: [place] 4:50 PM [facility] REPOSITORY [facility] Medical Records Department [address] [place] [address] Discharge Instruction 06/27/18 1649 MR#: [id number] Acct: [id number] Name: SONDRA SERRANO Rep #: [id number] : 1985 32 From: Yenifer Lee MD PCP: Care Physician, No Primary Status: REG ER ED Disposition - Plan for ED Patient: Chief Complaint: Back Instructions: ED Neck Back Pain General, ED Palpitations Prescriptions: Naproxen [Naprosyn] 500 mg PO BID PRN #20 tab Referrals: Sasha Coughlin MD [STAFF PHYSICIAN] - Care Physician,No Primary [Primary Care Provider] - What to do if you have Problems For any increased pain, shortness of breath, bleeding, nausea or vomiting, chest pain, or any unexpected problems, contact your Primary Care Provider. Call [facility] [facility] ([phone]) or report to the closest Emergency Room. Call 911 if necessary. 06/27/18 1650 <Electronically signed by Yenifer Lee MD> Date Yenifer Lee MD Cosigner Signature (If Indicated): Date CC: No Primary Care Physician DISCHARGE INSTRUCTION Observed: 06/27/2018 Status: F Source: [place] 4:49 PM [facility] REPOSITORY [facility] Medical Records Department [address] [place] [address] Discharge Instruction 06/27/181646 MR#: [id number] Acct: [id number] Name: SONDRA SERRANO Rep #: [id number] : 1985 32 From: Yenifer Lee MD PCP: Care Physician, No Primary Status: REG ER ED Disposition - Plan for ED Patient: Chief Complaint: Back Prescriptions: Naproxen [Naprosyn] 500 mg PO BID PRN #20 tab Referrals: Care Physician,No Primary [Primary Care Provider] - Sasha Coughlin MD [STAFF PHYSICIAN] - What to do if you have Problems For any increased pain, shortness of breath, bleeding, nausea or vomiting, chest pain, or any unexpected problems, contact your Primary Care Provider. Call [facility] ([phone]) or report to the closest Emergency Room. Call 911 if necessary. 06/27/181648 <Electronically signed by Yenifer Lee MD> Date Yenifer Lee MD Cosigner Signature (If Indicated): Date CC: No Primary Care Physician CBC W/DIFF, AUTOMATED Collected: 06/27/2018 Status: F Source: [place] 2:55 PM [facility] REPOSITORY TYPE CODE TESTS RESULT OUT OF RANGE REFERENCE UNITS LAB L100.1000 4.4-11.0 K/mm3 High WBC 11.1 LAB L100.1200 4.2-5.4 M/mm3 Normal RBC 5.05 LAB L100.1300 12.0-15.0 g/dl Normal HGB 14.3 LAB L100.1400 37-47 % Normal HCT 41.3 LAB L100.1500 81-99 fL Normal MCV 81.8 LAB L100.1600 27.0-32.0 pg Normal MCH 28.3 LAB L100.1700 32-36 g/gl Normal MCHC 34.6 LAB L100.1810 11.6-14.6 % Normal RDW CV 13.7 LAB L100.1820 35.1-43.9 fl Normal RDW SD 40.2 LAB L100.1900 150-450 K/mm3 Normal PLT 319 LAB L100.2000 6.2-12.0 fl Normal MPV 9.9 LAB L100.2100 47-70 % Normal NEUT% 64.9 LAB L100.2200 19-41 % Normal LY% 27.0 LAB L100.2300 0-10 % Normal MONO% 6.2 LAB L100.2400 0-5 % Normal EO% 1.3 LAB L100.2500 0-1 % Normal BASO% 0.4 LAB L100.2550 0.0-0.9 % Normal IM GRAN % 0.200 Result Comment: IG% - Immature Granulocytes (promyelocytes, myelocytes and metamyelocytes) > 1% indicates that a LEFT SHIFT is Present. LAB L100.2620 2.0-7.7 X10 3/uL Normal Absolute Neut 7.2 LAB L100.2720 0.83-4.51 X10 3/ul Normal Absolute Lymph 3.00 Performed By: #### L100.0100 #### [facility] [address] [place], [address] BASIC METABOLIC Collected: 06/27/2018 Status: F Source: [place] PROFILE (BMP) 2:55 PM [facility] REPOSITORY TYPE CODE TESTS RESULT OUT OF RANGE REFERENCE UNITS LAB L501.0100 74-106 mg/dL Normal GLU 83 Result Comment: Please note revised GLUCOSE reference range effective 2017. LAB L501.1000 7-18 mg/dL Normal BUN 17 LAB L501.1100 0.55-1.02 mg/dL Normal CREAT,SERUM 0.98 Result Comment: The validity of the calculated GFR AND GFRAA in patients over 70 years has not been determined. Clinical correlation is essential. LAB L501.1110 >60 mL/min Normal EST GFR 70 Result Comment: Non- GFR Calc LAB L501.1115 >60 mL/min Normal EST GFR - AA 85 Result Comment: GFR Calc LAB L501.1255 ml/min Normal Estimated CRCL 78.58 LAB L501.1300 10-20 RATIO Normal BUN/CRE 17.3 LAB L501.2200 8.5-10 mg/dL Normal .1 CA 8.6 LAB L501.5300 136-14 mmol/L Normal 5 NA 139 LAB L501.5600 3.5-5. mmol/L Normal 1 K 3.6 LAB L501.5900 98-107 mmol/L Normal CL 107 LAB L501.6100 21.0-3 mmol/L Normal 2.0 CO2 24.0 LAB L501.6200 5-15 Normal GAP 8 Performed By: #### L500.2500, L501.4010 #### [facility] [address] [place], [address] TROPONIN-I Collected: 06/27/2018 Status: F Source: [place] 2:55 PM [facility] REPOSITORY TYPE CODE TESTS RESULT OUT OF RANGE REFERENCE UNITS LAB L501.4010 <0.045 ng/mL Normal < 0.015 TROPONIN-I Result Comment: TROPONIN-I EXPECTED VALUES <0.045 Negative 0.045 - 0.590 Consistent with Cardiac Damage > OR = 0.600 Critical Value Not every elevated troponin is indicative of NE. These values should be used with clinical judgement in examining the patient's clinical picture for diagnosis. To establish a diagnosis of NE versus myocardial injury, there must be a demonstrated rise and/or fall in the troponin values, in addition to ischemic symptoms, EKG changes, new regional wall motion abnormality, and/or angiographical evidence. PLEASE NOTE: REFERENCE RANGES EDITED 18 Performed By: #### L500.2500, L501.4010 #### [facility] [address] [place], [address] CHEST 1 VIEW Observed: 06/27/2018 Status: F Source: [place] (PORTABLE) 2:49 PM [facility] REPOSITORY [facility] Imaging Services [address] [place] [address] Chest 1 View (Portable) MR#: [id number] Acct: [id number] Name: SONDRA SERRANO Rep #: [id number] : 1985 F 32 From: Aaron Nye MD PCP: Care Physician, No Primary Status: REG ER Study: Chest 1 View (Portable) Date of Exam: 06/27/18 Exam# [id number] Ordering Dr: Yenifer Lee MD STUDY: X-RAY CHEST REASON FOR EXAM: Female, 32 years old. Chest pain. TECHNIQUE: Single AP portable view of the chest. COMPARISON: 06/25/2018. FINDINGS: The lungs are clear and expanded. There is no demonstrated pleural abnormality. Normal size heart. Normal mediastinum and rolando. Normal visualized pulmonary arteries. Normal visualized aortic arch and descending thoracic aorta. Normal visualized thoracic spine. Normal visualized ribs, clavicles, and shoulders. There is no demonstrated abnormality of the visualized soft tissue structures of the upper abdomen. RAD/Chest 1 View (Portable) IMPRESSION: Normal x-ray examination of the chest. Electronically Signed: Aaron Nye MD at 15:32 EDT , Service support , CC: MD Santiago Lee; No Primary Care Physician Payroll Accountant: Signed CTA CHEST W/WO Observed: 06/27/2018 Status: F Source: [place] CONTRAST 2:49 PM [facility] REPOSITORY [facility] Imaging Services [address] [place] [address] CTA Chest W/WO Contrast MR#: [id number] Acct: [id number] Name: SONDRA SERRANO Rep #: [id number] : 1985 F 32 From: Aaron Nye MD PCP: Care Physician, No Primary Status: REG ER Study: CTA Chest W/WO Contrast Date of Exam: 06/27/18 Exam# [id number] Ordering Dr: Yenifer Lee MD STUDY: CTA CHEST REASON FOR EXAM: Female, 32 years old. Chest pain. RADIATION DOSAGE (If Supplied By Facility): CTDIvol = ( 26.18 ) mGy, DLP = ( 680.2 ) mGycm TECHNIQUE: The examination was performed with the intravenous administration of 100 ml of Isovue 370 contrast material. Post-processing of the angiographic images was performed, with multiplanar reformation and 3D reconstruction. # of Images: [id number] Individualized dose optimization techniques were used for this CT. COMPARISON: 03/26/2017, 03/05/2018. FINDINGS: Normal enhancement of the main pulmonary artery and right and left pulmonary arteries. Normal enhancement of the bilateral peripheral pulmonary arteries. There is no demonstrated pulmonary embolism. Normal thoracic aorta and visualized great vessels. There is no demonstrated aortic dissection. Normal heart and pericardium. Normal mediastinum. Normal hilar regions. Normal visualized trachea and bronchi. The lungs are well expanded. Normal pulmonary parenchyma. There is a tiny 4 mm nodule in the posterior left lung base which is stable from the previous exams and in this age group is almost certainly of no clinical concern. Normal pleura. Normal chest wall structures. Normal osseous structures. Normal visualized upper abdomen. CT/CTA Chest W/WO Contrast IMPRESSION: Normal CTA chest examination, without a demonstrated pulmonary embolism or arterial dissection. Electronically Signed: Aaron Nye MD at 16:15 EDT , Service support , CC: MD Santiago Lee; No Primary Care Physician Payroll Accountant: Signed 12 LEAD ELECTROCARDIOGRAM Observed: 06/27/2018 Status: F Source: [place] 9:58 AM [facility] REPOSITORY [facility] Cardiovascular Services [address] [place] [address] 12 Lead EKG 06/25/182113 MR#: [id number] Acct: [id number] Name: SONDRA SERRANO Rep #: [id number] : 1985 32 From: Braulio Griffin MD Attending Dr: Status: DEP ER Ordering Dr: Maribell Cardoso MD Date: 06/25/18 Location: ED Sex: F C Admitted: Test Reason : CP Blood Pressure : / mmHG Vent. Rate : 076 BPM Atrial Rate : 076 BPM P-R Int : 136 ms QRS Dur : 088 ms QT Int : 372 ms P-R-T Axes : 052 066 044 degrees QTc Int : 418 ms Normal sinus rhythm Normal ECG Confirmed by BRAULIO GRIFFIN MD ([id number]), medical transcription editor MELANI ASCENCIO ([id number]) on 06/27/2018 9:58:22 AM Referred By: TL Confirmed By:BRAULIO GRIFFIN MD 06/27/18 0958 Date Braulio Griffin MD CC: No Primary Care Physician; Maribell Cardoso MD Signed EMERGENCY DEPARTMENT Observed: 06/26/2018 Status: F Source: [place] SUMMARY 12:10 AM [facility] REPOSITORY [facility] Medical Records Department [address] [place] [address] Emergency Department Summary 06/25/182200 MR#: [id number] Acct: [id number] Name: SONDRA SERRANO Rep #: [id number] : 1985 32 From: Maribell Cardoso MD PCP: Care Physician, No Primary Status: REG ER - ER Visit Summary Date of Service: 06/25/18 Chief Complaint: Palpitations History of Present Illness: The patient is a 32 F presenting with palpitations. She states she has had 1 minute episodes of palpitations throughout the day. She states she is getting episodes about once an hour. She states she has associated chest pain with this. Symptoms last approximately 1 minute. She has shortness of breath with this. She has not passed out. She is currently pain-free. Denies PE/DVT risk factors. History of anxiety and depression. Denies fever or chills. Physical Examination: Vitals are stable. Patient is afebrile. Alert no acute distress. HEENT exam is unremarkable. Neck is supple. Lungs are clear and equal bilaterally. Heart is regular rate and rhythm. Abdomen is soft nontender nondistended. Extremities are unremarkable. Skin is warm and dry. No focal neurologic deficit. Remainder of exam is unremarkable. Emergency Department Course and Treatment: EKG is sinus rate of 75 with no acute changes. D-dimer is negative. Chest x-ray shows no acute process. BMP unremarkable. HCG negative. She is given Dr. Lee electronic system engineer for no doc for follow-up. Advised return to ED if worsening complaints. Disposition: Discharge home Impression: Palpitations This note was generated with [employer] dictation software. It may contain incorrect words, spelling, and punctuation that were not noted in review of the chart prior to signing ED Disposition - Plan for ED Patient: Chief Complaint: Chest Other Instructions: ED Palpitations Referrals: Talib Lee III, MD [STAFF PHYSICIAN] - Care Physician,No Primary [Primary Care Provider] - What to do if you have Problems For any increased pain, shortness of breath, bleeding, nausea or vomiting, chest pain, or any unexpected problems, contact your Primary Care Provider. Call [facility] ([phone]) or report to the closest Emergency Room. Call 911 if necessary. 06/26/18 0010 <Electronically signed by Maribell Cardoso MD> Date Maribell Cardoso MD Cosigner Signature (If Indicated): Date CC: No Primary Care Physician DISCHARGE INSTRUCTION Observed: 06/25/2018 Status: F Source: [place] 11:59 PM [facility] REPOSITORY [facility] Medical Records Department [address] [place] [address] Discharge Instruction 06/25/182358 MR#: [id number] Acct: [id number] Name: SONDRA SERRANO Rep #: [id number] : 1985 32 From: Maribell Cardoso MD PCP: Care Physician, No Primary Status: REG ER ED Disposition - Plan for ED Patient: Chief Complaint: Chest Other Instructions: ED Palpitations Referrals: Care Physician,No Primary [Primary Care Provider] - Talib Lee III, MD [STAFF PHYSICIAN] - What to do if you have Problems For any increased pain, shortness of breath, bleeding, nausea or vomiting, chest pain, or any unexpected problems, contact your Primary Care Provider. Call [facility] ([phone]) or report to the closest Emergency Room. Call 911 if necessary. 06/25/182358 <Electronically signed by Maribell Cardoso MD> Date Maribell Cardoso MD Cosigner Signature (If Indicated): Date CC: No Primary Care Physician D-DIMER QUANTITATIVE Collected: 06/25/2018 Status: F Source: [place] (DVT/PE) 10:25 PM [facility] REPOSITORY TYPE CODE TESTS RESULT OUT OF RANGE REFERENCE UNITS LAB L300.8000 0.27-0.49 FEU/ug/m Low D-DIMER < 0.27 QUANT Result Comment: NORMAL D-Dimer level (<0.50) indicates no DVT or PE. Performed By: #### L300.8000 #### [facility] [address] [place], [address] BASIC METABOLIC Collected: 06/25/2018 Status: F Source: [place] PROFILE (BMP) 10:25 PM [facility] REPOSITORY TYPE CODE TESTS RESULT OUT OF RANGE REFERENCE UNITS LAB L501.0100 74-106 mg/dL Normal GLU 97 Result Comment: Please note revised GLUCOSE reference range effective 2017. LAB L501.1000 7-18 mg/dL Normal BUN 17 LAB L501.1100 0.55-1.02 mg/dL Normal CREAT,SERUM 0.92 Result Comment: The validity of the calculated GFR AND GFRAA in patients over 70 years has not been determined. Clinical correlation is essential. LAB L501.1110 >60 mL/min Normal EST GFR 76 Result Comment: Non- GFR Calc LAB L501.1115 >60 mL/min Normal EST GFR - AA 92 Result Comment: GFR Calc LAB L501.1255 ml/min Normal Estimated CRCL 83.70 LAB L501.1300 10-20 RATIO Normal BUN/CRE 18.5 LAB L501.2200 8.5-10 mg/dL Low .1 CA 8.4 LAB L501.5300 136-14 mmol/L Normal 5 NA 140 LAB L501.5600 3.5-5. mmol/L Normal 1 K 3.5 LAB L501.5900 98-107 mmol/L High CL 109 LAB L501.6100 21.0-3 mmol/L Normal 2.0 CO2 23.0 LAB L501.6200 5-15 Normal GAP 8 Performed By: #### L500.2500, L501.4010 #### [facility] [place], [address] TROPONIN-I Collected: 06/25/2018 Status: F Source: [place] 10:25 PM [facility] REPOSITORY TYPE CODE TESTS RESULT OUT OF RANGE REFERENCE UNITS LAB L501.4010 <0.045 ng/mL Normal < 0.015 TROPONIN-I Result Comment: TROPONIN-I EXPECTED VALUES <0.045 Negative 0.045 - 0.590 Consistent with Cardiac Damage > OR = 0.600 Critical Value Not every elevated troponin is indicative of NE. These values should be used with clinical judgement in examining the patient's clinical picture for diagnosis. To establish a diagnosis of NE versus myocardial injury, there must be a demonstrated rise and/or fall in the troponin values, in addition to ischemic symptoms, EKG changes, new regional wall motion abnormality, and/or angiographical evidence. PLEASE NOTE: REFERENCE RANGES EDITED 18 Performed By: #### L500.2500, L501.4010 #### [facility] [address] [place], [address] ,SERUM,HCG QUALI. Collected: Status: F Source: [place] 06/25/2018 10:25 PM [facility] REPOSITORY TYPE CODE TESTS RESULT OUT OF REFERENCE UNITS RANGE LAB L700.7000 0-9 Nonpreg Negative Normal HCGSQUAL NEGATIVE LAB L700.6700 =>Qualitative mIU/mL Normal HCG Qual < 1 triggr Performed By: #### L700.6800 #### [facility] [address] [facility] [place], [address] CHEST 1 VIEW Observed: 06/25/2018 Status: F Source: [place] (PORTABLE) 10:01 PM [facility] REPOSITORY [facility] Imaging Services [address] [place] [address] Chest 1 View (Portable) MR#: [id number] Acct: [id number] Name: SONDRA SERRANO Alisia Rep #: [id number] : 1985 F 32 From: Jax Contreras DO PCP: Care Physician, No Primary Status: REG ER Study: Chest 1 View (Portable) Date of Exam: 06/25/18 Exam# [id number] Ordering Dr: Maribell Cardoso MD STUDY: X-RAY CHEST REASON FOR EXAM: Female, 32 years old. Chest pain. Shortness of breath and dizziness beginning this morning. TECHNIQUE: Single AP portable view of the chest. COMPARISON: April 28, 2016. FINDINGS: Telemetry wires overlie the chest. There is a minimally decreased inspiratory effort when compared to prior study. There is no new mass or infiltrate. There is no demonstrated pleural abnormality. Normal size heart. Normal mediastinum and rolando. Normal visualized pulmonary arteries. Normal visualized aortic arch and descending thoracic aorta. The thoracic spine is obscured by the mediastinum. Normal visualized ribs, clavicles, and shoulders. There is no demonstrated abnormality of the visualized soft tissue structures of the upper abdomen. RAD/Chest 1 View (Portable) IMPRESSION: No acute cardiopulmonary disease or interval change. Electronically Signed: Jax Contreras DO at 22:25 EDT Tel [phone], Service support , CC: No Primary Care Physician; Maribell Cardoso MD Payroll Accountant: Signed EMERGENCY DEPARTMENT Observed: 03/30/2018 Status: F Source: [place] SUMMARY 10:14 PM [facility] REPOSITORY [facility] Medical Records Department [address] [place] [address] Emergency Department Summary 03/05/18 0628 MR#: [id number] Acct: [id number] Name: SONDRA SERRANO Rep #: [id number] : 1985 32 From: Cheyanne Gomez PCP: Care Physician, No Primary Status: DEP ER - ER Visit Summary Date of Service: 03/05/18 Chief Complaint: [Right flank pain for 3 days] History of Present Illness: The patient is a 32 F [who presents the emergency department with right flank pain. It started 3 days ago. It is worse with sitting or lying down and is better with standing. She had UTI symptoms a couple of days ago with dysuria and frequency but got better on its own. She had nausea but no vomiting no fevers. She has anxiety and depression is otherwise healthy.] Physical Examination: [] Blood pressure 157/79 WN WD NAD PERRL EOMI MMM NECK supple and nontender, no masses RRR no murmur rub or gallop, no peripheral edema, symmetric radial pulses CTAB no respiratory distress ABDOMEN is soft and nontender, normal bowel sounds, no distension, no rebound or guarding No CVA tenderness SKIN is warm and dry no rashes Alert and Oriented x3, CN II-XII in tact, no motor or sensory deficits, gait normal No lymphadenopathy Test Results: [] Emergency Department Course and Treatment: [Patient was given fluids Toradol and Zofran. Screening labs were obtained urinalysis was sent and CT will be ordered to rule out kidney stone. Urinalysis shows greater than 100 red blood cells there is no evidence of infection. CT is pending I do suspect likely right urolithiasis. Results will be followed up on a oncoming physician.] Treatment Plan: [] Disposition: [] Impression: [] This note was generated with [employer] dictation software. It may contain incorrect words, spelling, and punctuation that were not noted in review of the chart prior to signing <Cheyanne Gomez - Last Filed: 03/05/18 07:11> - ER Visit Summary Date of Service: 03/05/18 Patient was checked out to me to check CT results. CT flank shows 2.1 cm right ovarian cyst. Patient states her pain is in the left flank. Urinalysis shows over 100 red blood cells with no white cells. She is advised to follow-up with Dr. Perkins, urology, for hematuria. She is advised to return to ED if worsening complaints. Disposition: Discharge home Impression: Left flank pain, hematuria This note was generated with [employer] dictation software. It may contain incorrect words, spelling, and punctuation that were not noted in review of the chart prior to signing <Maribell Cardoso - Last Filed: 03/05/18 08:48> ED Disposition <Cheyanne Gomez - Last Filed: 03/05/18 07:11> <Maribell Cardoso - Last Filed: 03/05/18 08:48> - Plan for ED Patient: Chief Complaint: Flank Pain Instructions: ED Flank Pain Uncertain Cause Prescriptions: Naproxen [Naprosyn] 500 mg PO BID PRN #20 tablet Referrals: Mauricio Ascencio MD [STAFF PHYSICIAN] - Shabbir Perkins MD [STAFF PHYSICIAN] - What to do if you have Problems For any increased pain, shortness of breath, bleeding, nausea or vomiting, chest pain, or any unexpected problems, contact your Primary Care Provider. Call [employer] [facility] ([phone]) or report to the closest Emergency Room. Call 911 if necessary. 03/30/18 2597 <Electronically signed by Cheyanne Gomez > Date Cheyanne Gomez 03/05/18 0848<Electronically signed by Maribell Cardoso MD> Cosigner Signature (If Indicated): Date Maribell Cardoso MD CC: No Primary Care Physician EMERGENCY DEPARTMENT Observed: 03/17/2018 Status: F Source: [place] SUMMARY 5:49 AM [facility] REPOSITORY [facility] Medical Records Department [address] [place] [address] Emergency Department Summary 03/17/18 0545 MR#: [id number] Acct: [id number] Name: SONDRA SERRANO Rep #: [id number] : 1985 32 From: Maribell Cardoso MD PCP: Care Physician, No Primary Status: DEP ER - ER Visit Summary Date of Service: 03/17/18 Chief Complaint: Left eye redness History of Present Illness: The patient is a 32 F presenting with left eye redness 3 days. She states it has been itching and burning. She denies vision changes. She does not wear contacts or glasses. She has had no foreign body exposures, chemical exposure, tanning, or welding. No trauma. She denies fever. Denies sick contacts. Physical Examination: Vitals are stable. Patient is afebrile. Alert no acute distress. HEENT exam left eye conjunctival injection, no foreign body visualized. Left pupil is dilated compared to right. Neck is supple. Lungs are clear and equal bilaterally. Heart is regular rate and rhythm. Extremities are unremarkable. Skin is warm and dry. No focal neurologic deficit. Remainder of exam is unremarkable. 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 She states she has seen multiple ophthalmologists and does not have a known cause for this. She states it is no different than usual today. Tetracaine was instilled which relieved her symptoms. Visual acuity 20/20 OD, 20/50 OS. She is given bacitracin ophthalmic ointment. Advised to follow-up with ophthalmology as needed. Advised return to ED if worsening complaints. Disposition: Discharge home Impression: Left conjunctivitis This note was generated with [employer] dictation software. It may contain incorrect words, spelling, and punctuation that were not noted in review of the chart prior to signing ED Disposition - Plan for ED Patient: Disposition: Home or Assisted Living Chief Complaint: Eye Problem Instructions: ED Conjunctivitis Bacterial Referrals: Rc Quintana MD [STAFF PHYSICIAN] - Care Physician,No Primary [Primary Care Provider] - What to do if you have Problems For any increased pain, shortness of breath, bleeding, nausea or vomiting, chest pain, or any unexpected problems, contact your Primary Care Provider. Call [facility] ([phone]) or report to the closest Emergency Room. Call 911 if necessary. 03/17/18 0549 <Electronically signed by Maribell Cardoso MD> Date Maribell Cardoso MD Cosigner Signature (If Indicated): Date CC: No Primary Care Physician DISCHARGE INSTRUCTION Observed: 03/17/2018 Status: F Source: [place] 2:34 AM [facility] REPOSITORY [facility] Medical Records Department [address] [place] [address] Discharge Instruction 03/17/18 0233 MR#: [id number] Acct: [id number] Name: BELLASONDRA Alisia Rep #: [id number] : 1985 32 From: Maribell Cardoso MD PCP: Levi Physician, No Primary Status: REG ER ED Disposition - Plan for ED Patient: Chief Complaint: Eye Problem Instructions: ED Conjunctivitis Bacterial Referrals: Care Physician,No Primary [Primary Care Provider] - Rc Quintana MD [STAFF PHYSICIAN] - What to do if you have Problems For any increased pain, shortness of breath, bleeding, nausea or vomiting, chest pain, or any unexpected problems, contact your Primary Care Provider. Call [facility] ([phone]) or report to the closest Emergency Room. Call 911 if necessary. 03/17/18 0234 <Electronically signed by Maribell Cardoso MD> Date Maribell Cardoso MD Cosigner Signature (If Indicated): Date CC: No Primary Care Physician UA Collected: 03/11/2018 Status: F Source: [facility] 5:13 AM [facility] REPOSITORY TYPE CODE TESTS RESULT OUT OF RANGE REFERENCE UNITS LAB SPCUA(JUDY NC) UA Specimen Type Void LAB CLRUA(JUDY NC) UA Color Yellow LAB APPUA(JUDY Clear NC) UA Appear Unknown Slightly Cloudy LAB SGUA(LOIN C) UA Spec Unknown Grav >=1.030 LAB GLUA(LOIN Negative mg/dL C) UA Glucose Negative LAB BILUA(JUDY Negative NC) UA Bili Negative LAB KETUA(JUDY Negative mg/dL NC) UA Ketones Negative LAB BLDUA(JUDY Negative NC) UA Blood Negative LAB PHUA(LOIN C) UA pH 6.0 LAB PROUA(JUDY Negative mg/dL NC) UA Protein Trace LAB UROUA(JUDY E.U./dL NC) UA Urobilinogen 0.2 LAB NITUA(JUDY Negative NC) UA Nitrite Negative LAB LEUUA(JUDY Negative NC) UA Leuk Est Negative Performed By: #### UA, UAMICAO #### [address] [address] .URINALYSIS MICROSCOPIC Collected: 03/11/2018 Status: F Source: [place] (AO) 5:13 AM [facility] REPOSITORY TYPE CODE TESTS RESULT OUT OF REFERENCE UNITS RANGE LAB WBCUA(LOIN None Seen /hpf C) UA WBC None Seen LAB RBCUA(LOIN None Seen /hpf C) UA RBC None Seen LAB EPIUA(LOIN None Seen /hpf C) UA Squam Epithelial None Seen Performed By: #### UA, UAMICAO #### [address] [address] PREGU Collected: 03/11/2018 Status: F Source: [place] [facility] 5:10 AM [facility] REPOSITORY TYPE CODE TESTS RESULT OUT OF RANGE REFERENCE UNITS LAB PREGU(LOIN C) Test Negative Urine LAB PRUG1(LOIN C) Unknown test HCG not (u) int detected. Performed By: #### PREGU #### [facility] [address] [place], [place] [address] DISCHARGE INSTRUCTION Observed: 03/05/2018 Status: F Source: [place] 8:43 AM [facility] REPOSITORY [facility] Medical Records Department [address] [place] [address] Discharge Instruction 03/05/18 0841 MR#: [id number] Acct: [id number] Name: SONDRA SERRANO Rep #: [id number] : 1985 32 From: Maribell Cardoso MD PCP: Care Physician, No Primary Status: REG ER ED Disposition - Plan for ED Patient: Chief Complaint: Flank Pain Instructions: ED Flank Pain Uncertain Cause Prescriptions: Naproxen [Naprosyn] 500 mg PO BID PRN #20 tablet Referrals: Mauricio Ascencio MD [STAFF PHYSICIAN] - Shabbir Perkins MD [STAFF PHYSICIAN] - What to do if you have Problems For any increased pain, shortness of breath, bleeding, nausea or vomiting, chest pain, or any unexpected problems, contact your Primary Care Provider. Call [facility] ([phone]) or report to the closest Emergency Room. Call 911 if necessary. 03/05/18 0843 <Electronically signed by Maribell Cardoso MD> Date Maribell Cardoso MD Cosigner Signature (If Indicated): Date CC: No Primary Care Physician DISCHARGE INSTRUCTION Observed: 03/05/2018 Status: F Source: [place] 7:13 AM [facility] REPOSITORY [facility] Medical Records Department [address] [place] [address] Discharge Instruction 03/05/18710 MR#: [id number] Acct: [id number] Name: SONDRA SERRANO Rep #: [id number] : 1985 32 From: Cheyanne Gomez PCP: Care Physician, No Primary Status: REG ER ED Disposition - Plan for ED Patient: Chief Complaint: Flank Pain Instructions: ED Stone Renal W Colic Prescriptions: Hydrocodone Bitart/Apap 5-325 [[place] 5MG-325MG] 1 tablet PO Q6H PRN PRN 3 Days #10 tablet PRN Reason: Pain Ondansetron [Zofran Odt] 4 mg PO Q8H PRN PRN #10 tablet PRN Reason: Nausea Referrals: Mauricio Ascencio MD [STAFF PHYSICIAN] - What to do if you have Problems For any increased pain, shortness of breath, bleeding, nausea or vomiting, chest pain, or any unexpected problems, contact your Primary Care Provider. Call [facility] ([phone]) or report to the closest Emergency Room. Call 911 if necessary. 03/05/18712 <Electronically signed by Cheyanne Gomez > Date Cheyanne Gomez Cosigner Signature (If Indicated): Date CC: No Primary Care Physician CBC W/DIFF, AUTOMATED Collected: 03/05/2018 Status: F Source: [place] 6:45 AM [facility] REPOSITORY TYPE CODE TESTS RESULT OUT OF RANGE REFERENCE UNITS LAB L100.1000 4.4-11.0 K/mm3 Normal WBC 10.6 LAB L100.1200 4.2-5.4 M/mm3 Normal RBC 4.99 LAB L100.1300 12.0-15.0 g/dl Normal HGB 13.8 LAB L100.1400 37-47 % Normal HCT 41.4 LAB L100.1500 81-99 fL Normal MCV 83.0 LAB L100.1600 27.0-32.0 pg Normal MCH 27.7 LAB L100.1700 32-36 g/gl Normal MCHC 33.3 LAB L100.1810 11.6-14.6 % Normal RDW CV 13.7 LAB L100.1820 35.1-43.9 fl Normal RDW SD 41.2 LAB L100.1900 150-450 K/mm3 Normal PLT 273 LAB L100.2000 6.2-12.0 fl Normal MPV 9.2 LAB L100.2100 47-70 % Normal NEUT% 66.1 LAB L100.2200 19-41 % Normal LY% 25.8 LAB L100.2300 0-10 % Normal MONO% 6.5 LAB L100.2400 0-5 % Normal EO% 1.3 LAB L100.2500 0-1 % Normal BASO% 0.2 LAB L100.2550 0.0-0.9 % Normal IM GRAN % 0.100 Result Comment: IG% - Immature Granulocytes (promyelocytes, myelocytes and metamyelocytes) > 1% indicates that a LEFT SHIFT is Present. LAB L100.2620 2.0-7.7 X10 3/uL Normal Absolute Neut 7.0 LAB L100.2720 0.83-4.51 X10 3/ul Normal Absolute Lymph 2.74 Performed By: #### L100.0100 #### [facility] [address] [place], [address] ,SERUM,HCG QUALI. Collected: Status: F Source: [place] 03/05/2018 6:45 AM [facility] REPOSITORY TYPE CODE TESTS RESULT OUT OF REFERENCE UNITS RANGE LAB L700.6700 =>Qualitative mIU/mL Normal HCG Qual < 1 triggr LAB L700.7000 0-9 Nonpreg Negative Normal HCGSQUAL NEGATIVE Performed By: #### L700.6800 #### [facility] [address] [facility] [place], [address] COMPREHENSIVE METABOLIC Collected: 03/05/2018 Status: F Source: [facility] 6:45 AM [facility] REPOSITORY TYPE CODE TESTS RESULT OUT OF RANGE REFERENCE UNITS LAB L501.0100 74-106 mg/dL Normal GLU 91 Result Comment: Please note revised GLUCOSE reference range effective 2017. LAB L501.1000 7-18 mg/dL Normal BUN 11 LAB L501.1100 0.55-1.02 mg/dL High CREAT,SERUM 1.03 Result Comment: The validity of the calculated GFR AND GFRAA in patients over 70 years has not been determined. Clinical correlation is essential. LAB L501.1110 >60 mL/min Normal EST GFR 67 Result Comment: Non- GFR Calc LAB L501.1115 >60 mL/min Normal EST GFR - AA 81 Result Comment: GFR Calc LAB L501.1255 ml/min Normal Estimated CRCL 74.76 LAB L501.1300 10-20 RATIO Normal BUN/CRE 10.7 LAB L501.1500 6.4-8. g/dL Normal 2 T PROT 8.0 LAB L501.1800 3.2-5. g/dL Normal 0 ALB 3.7 LAB L501.1950 2.2-4. g/dL High 2 GLOB 4.3 LAB L501.2000 0.9-2. RATIO Normal 4 A/G 0.9 LAB L501.2200 8.5-10 mg/dL Normal .1 CA 8.5 LAB L501.4100 15-37 U/L Normal AST 27 Result Comment: Moderate Hemolysis, Result may be falsely increased. LAB L501.4305 45-117 U/L Normal ALK P 101 LAB L501.4405 13-56 U/L Normal ALT 34 LAB L501.4600 0.20-1.00 mg/dL Normal T BILI 0.60 LAB L501.5300 136-145 mmol/L Normal NA 140 LAB L501.5600 3.5-5.1 mmol/L Normal K 4.0 Result Comment: Moderate Hemolysis, Result may be falsely increased. LAB L501.5900 98-107 mmol/L High CL 110 LAB L501.6100 21.0-32.0 mmol/L Normal CO2 22.0 LAB L501.6200 5-15 Normal 8 GAP Performed By: #### L500.4050 #### [facility] [place], [place], [id number] ABDOMEN/PELVIS WITHOUT Observed: 03/05/2018 Status: F Source: [place] CONT 6:28 AM [facility] REPOSITORY [facility] Imaging Services [address] [place] [address] Abdomen/Pelvis without Cont MR#: [id number] Acct: [id number] Name: SONDRA SERRANO Rep #: [id number] : 1985 F 32 From: Molina Luis MD PCP: Care Physician, No Primary Status: REG ER Study: Abdomen/Pelvis without Cont Date of Exam: 03/05/18 Exam# [id number] Ordering Dr: Cheyanne Gomez STUDY: CT ABDOMEN AND PELVIS WITHOUT CONTRAST REASON FOR EXAM: Female, 32 years old. Left flank pain. RADIATION DOSAGE (If Supplied By Facility): CTDIvol = ( 14.60 ) mGy, DLP = ( 719.63 ) mGycm TECHNIQUE: Transaxial images were obtained from the dome of the diaphragm to the symphysis pubis without oral contrast, and without intravenous contrast. Sagittal and coronal images were reconstructed. Individualized dose optimization techniques were used for this CT. COMPARISON: Comparison is made with prior study dated October 30, 2017. FINDINGS: The visualized lung bases are unremarkable. The visualized portions of the heart are within normal limits. Normal liver. There are surgical clips in the gallbladder fossa consistent with a prior cholecystectomy. Normal spleen. Normal pancreas. Normal bilateral adrenal glands. Normal right kidney. There is fullness of the left renal pelvis. No significant hydronephrosis is seen. Normal visualized stomach. Normal small intestine. Normal colon. The appendix is visualized and appears normal. Normal abdominal aorta. Normal inferior vena cava. There is borderline retroperitoneal lymphadenopathy with enlarged nodes no greater than 10mm in the short axis diameter. Normal urinary bladder. There is a 2.1 cm cyst in the right ovary. There is a small umbilical hernia containing fat. Normal osseous structures. CT/Abdomen/Pelvis without Cont IMPRESSION: 2.1 cm cyst in the right ovary. Electronically Signed: Molina Luis MD at 8:08 EDT Tel [phone], Service support , CC: No Primary Care Physician; Cheyanne Gomez Payroll Accountant: Signed URINALYSIS, COMPLETE Collected: 03/05/2018 Status: F Source: [place] 6:20 AM [facility] REPOSITORY Order Comment: How was Urine Obtained? CLEAN CATCH TYPE CODE TESTS RESULT OUT OF RANGE REFERENCE UNITS LAB L400.3000 Yellow COLOR Normal Yellow LAB L400.3050 Clear Normal CLARITY Sl. Cloudy LAB L400.3200 Normal mg/dl Normal GLUCOSE, UR Normal LAB L400.3300 Negative mg/dL Normal BILIRUBIN URINE Negative LAB L400.3400 Negative mg/dl Normal KETONE UR Negative LAB L400.3465 1.002-1.030 Normal SP.GR. DIPSTX 1.025 LAB L400.3550 5.0 - 8.0 pH UR Normal 6.0 LAB L400.3600 Negative mg/dl High PROT 30 DIPSTX LAB L400.3700 Normal mg/dl Normal UROBILI Normal LAB L400.3750 Negative Normal NITRITE UR Negative LAB L400.3780 Negative /ul High OCCULT BLOOD-UR 250 LAB L400.3800 Negative /ul High LEUK 25 ESTERASE LAB L400.4050 0-5 /hpf WBC 0 Normal SEEN LAB L400.4100 0-5 /hpf > Normal RBC-UA 100 SEEN LAB L400.4150 5-10 /hpf SQUAM Normal EPI 5-10 SEEN LAB L400.4300 None Seen /hpf 1+ Normal BACTERIA LAB L400.4350 <or=2+ /hpf 1+ Normal MUCUS, URINE Performed By: #### L400.0001 #### [facility] [address] [place], [address] XR CHEST 2 VIEWS Observed: 11/23/2017 Status: F Source: [place] [facility] 12:22 PM [facility] REPOSIT[facility] ORIGINAL XR CHEST 2 VIEWS CLINICAL STATEMENT: Chest Pain COMPARISON: 03/22/2017 FINDINGS:Cardiac contours are stable. There is no acute infiltrate or consolidation. No pleural effusion or pneumothorax is identified. The osseous structures are intact IMPRESSION:Normal exam Interpreted By: Nirali Springer MD Preliminary Report By: Nirali Springer MD Electronically Signed By: Nirali Springer MD Dictated Date: 11/23/2017 12:28:59 PM Prelim Date: 11/23/2017 12:28:59 PM Sign Date: 11/23/2017 12:29:19 PM PREGU Collected: 11/23/2017 Status: F Source: [facility] 12:06 [facility] REPOSITORY TYPE CODE TESTS RESULT OUT OF RANGE REFERENCE UNITS LAB PREGU(LOIN C) Test Negative Urine LAB PRUG1(LOIN C) Unknown test HCG not (u) int detected. Performed By: #### PREGU #### [place] [address] [place], [place] [address] CBC Collected: 11/23/2017 Status: F Source: [facility] 12:00 PM [facility] REPOSITORY TYPE CODE TESTS RESULT OUT OF REFERENCE UNITS RANGE LAB WBC(LOINC) 4.60-10.80 10 3/mcL High WBC 12.00 LAB RBCCT(LOINC 4.20-5.40 10 6/mcL ) RBC 5.19 LAB HGB(LOINC) 12.0-16.0 G/dL Hgb 14.0 LAB HCT(LOINC) 37.0-47.0 % Hct 42.3 LAB MCV(LOINC) 80.0-94.0 fL MCV 81.6 LAB MCH(LOINC) 27.0-31.2 pg MCH 27.0 LAB MCHC(LOINC) 33.0-37.0 G/dL MCHC 33.1 LAB RDW(LOINC) 11.5-14.5 % RDW 13.9 LAB PLT(LOINC) 130-400 10 3/mcL Platelet 273 LAB MPV(LOINC) 7.4-10.4 fL MPV 7.9 Performed By: #### CBC, ADIFF, ANEU, TROP, BMP, DIMER, GFR #### [address] [address] .AUTO DIFF Collected: 11/23/2017 Status: F Source: [facility] 12:00 [facility] REPOSITORY TYPE CODE TESTS RESULT OUT OF REFERENCE UNITS RANGE LAB MARY(LOINC) 37.0-80.0 % Neutrophil % 61.5 LAB LYM(LOINC) 10.0-50.0 % Lymphocyte % 28.8 LAB MON(LOINC) 1.7-13.0 % Monocyte % 7.6 LAB EO(LOINC) 0.0-7.0 % Eosinophil % 1.1 LAB BAS(LOINC) 0.0-2.5 % Basophil % 1.0 LAB ABLYM(LOIN 0.77-3.85 10 3/mcL C) Lymphocyte, 3.50 Absolute LAB DINAH(LOINC 0.15-1.00 10 3/mcL ) Monocyte, 0.90 Absolute LAB AEOS(LOINC 0.00-0.40 10 3/mcL ) Eosinophil, 0.10 Absolute LAB ABAS(LOINC 0.00-0.19 10 3/mcL ) Basophil, 0.10 Absolute Performed By: #### CBC, ADIFF, ANEU, TROP, BMP, DIMER, GFR #### [address] [address] .NEUABS Collected: 11/23/2017 Status: F Source: [place] [facility] 12:00 [facility] REPOSITORY TYPE CODE TESTS RESULT OUT OF REFERENCE UNITS RANGE LAB ANEU(LOINC) 2.85-6.16 10 3/mcL High Neutrophil, 7.40 Absolute Performed By: #### CBC, ADIFF, ANEU, TROP, BMP, DIMER, GFR #### [address] [address] TROP Collected: 11/23/2017 Status: F Source: [facility] 12:00 [facility] REPOSITORY TYPE CODE TESTS RESULT OUT OF REFERENCE UNITS RANGE LAB TROP(LOINC) 0.00-0.30 ng/mL Troponin <0.30 Result Comment: Below measuring range >=0.30 Consistent with cardiac damage, increased clinical risk and possibility of myocardial infarction. Serial measurements, clinical history, appropriate symptoms and/or ECG changes may help assess possibility of NE. *Other non-acute coronary syndrome conditions such as CHF, myocarditis, pulmonary emboli, sepsis and cardiac surgery could result in myocardial damage and increased troponin levels. Performed By: #### CBC, ADIFF, ANEU, TROP, BMP, DIMER, GFR #### [address] [address] BMP Collected: 11/23/2017 Status: F Source: [facility] 12:00 [facility] REPOSITORY TYPE CODE TESTS RESULT OUT OF REFERENCE UNITS RANGE LAB 1547-9 70-105 mg/dL GLUCOSE 86 LAB NA(LOINC) 136-146 mEq/L Sodium Level 137 LAB K(LOINC) 3.5-5.1 mEq/L Potassium Level 5.0 LAB CL(LOINC) 98-107 mEq/L Chloride 106 LAB CO2(LOINC) 22-29 mEq/L CO2 23 LAB EBAL(LOINC mEq/L ) Electrolyte Balance 8.0 LAB BUN(LOINC) 7.0-18.0 mg/dL BUN 12.0 LAB CRE(LOINC) 0.6-1.2 mg/dL Creatinine Lvl (s) 0.8 LAB BC(LOINC) 7-27 ratio BUN/Creatinine 15 Ratio LAB CA(LOINC) 8.4-10.2 mg/dL Calcium Lvl 8.9 Performed By: #### CBC, ADIFF, ANEU, TROP, BMP, DIMER, GFR #### [address] [place], [place] [address] DIMER Collected: 11/23/2017 Status: F Source: [email or web address] 12:00 [facility] REPOSITORY TYPE CODE TESTS RESULT OUT OF RANGE REFERENCE UNITS LAB DIMER(LOINC <=0.49 mcg/mL FEU ) D-Dimer 0.46 Result Comment: The result of the D-Dimer test should be evaluated in the context of all the clinical and laboratory data available. In those instances where the laboratory result does not agree with the clinical evaluation, additional tests should be performed accordingly. Performed By: #### CBC, ADIFF, ANEU, TROP, BMP, DIMER, GFR #### [address] [address] .GFR Collected: 11/23/2017 Status: F Source: [email or web address] 12:00 [facility] REPOSITORY TYPE CODE TESTS RESULT OUT OF REFERENCE UNITS RANGE LAB GFRAA(LOINC ml/min/1.73 ) sqm GFR 99 [place] Result Comment: GFR Population mean for , Non- Americans Ages 20-29 = 116 mL/min/1.73 sq.m. Ages 30-39 = 107 mL/min/1.73 sq.m. Ages 40-49 = 99 mL/min/1.73 sq.m. Ages 50-59 = 93 mL/min/1.73 sq.m. Ages 60-69 = 85 mL/min/1.73 sq.m. Ages 70+ = 75 mL/min/1.73 sq.m. Chronic Kidney Disease: Less than 60 mL/min/1.73 square meters End Stage Renal Disease: Less than 15 mL/min/1.73 square meters LAB GFRNO(LOINC) ml/min/1.73sqm GFR Non- >60 Result Comment: GFR Population mean for , Non- Americans Ages 20-29 = 116 mL/min/1.73 sq.m. Ages 30-39 = 107 mL/min/1.73 sq.m. Ages 40-49 = 99 mL/min/1.73 sq.m. Ages 50-59 = 93 mL/min/1.73 sq.m. Ages 60-69 = 85 mL/min/1.73 sq.m. Ages 70+ = 75 mL/min/1.73 sq.m. Chronic Kidney Disease: Less than 60 mL/min/1.73 square meters End Stage Renal Disease: Less than 15 mL/min/1.73 square meters Performed By: #### CBC, ADIFF, ANEU, TROP, BMP, DIMER, GFR #### [facility] [address] [address] LIPID PANEL Collected: 11/16/2017 Status: F Source: [place] 5:48 AM [facility] REPOSITORY TYPE CODE TESTS RESULT OUT OF RANGE REFERENCE UNITS LAB 3CHOL < 200 mg/dL Cholesterol 150 LAB 3TRIG <150 mg/dL Abnormal Triglyceride 290 LAB HDLC 40-60 mg/dL Low HDL Cholesterol 25 LAB LDL4 <100 mg/dL Low Density Lipoprotein 67 LAB CHLHD Chol/HDL 6 Result Comment: Ref Range: < 3 Low Risk for CHD 3-6 Mod Risk for CHD > 6 High Risk for CHD Performed By: #### LIPD2, HA1C2 #### The performing lab is in the report. HEMOGLOBIN A1C Collected: 11/16/2017 Status: F Source: [place] 5:48 AM [facility] REPOSITORY TYPE CODE TESTS RESULT OUT OF REFERENCE UNITS RANGE LAB A1C2 4.0-5.7 % Hemoglobin A1C 5.1 Result Comment: --HgbA1C levels may not be accurate in patients who have renal disease, received recent blood transfusions, are anemic, or who have dyshemoglobinemia. LAB EAG2 mg/dL Estimated Avg Glucose 100 Performed By: #### LIPD2, HA1C2 #### The performing lab is in the report. EMERGENCY DEPARTMENT Observed: 11/14/2017 Status: F Source: [place] SUMMARY 6:01 PM [facility] REPOSITORY [facility] Medical Records Department [address] [place] [address] Emergency Department Summary 11/14/17 1719 MR#: [id number] Acct: [id number] Name: SONDRA SERRANO Rep #: [id number] : 1985 32 From: Dasha Liang MD PCP: Care Physician, No Primary Status: REG ER - ER Visit Summary Date of Service: 11/14/17 Chief Complaint: Suicidal ideation History of Present Illness: The patient is a 32 F who reports suicidal thoughts for quite some time. She has no specific plan but does have multiple different possibilities that she is considered. She went to the counseling center today for initial intake and was brought in to be admitted. Patient does report a history of depression. She been on medications in the past but not for quite some time. She does report worsening depression since the of her child several years ago. Physical Examination: Vital signs are unremarkable. Head neck examination reveals pupils to be unequal in size. States this is been ongoing for 5 years and has had multiple workups. Heart is regular rate and rhythm. On lung sounds are clear. Abdomen is soft nontender. Neuro exam reveals normal strength and sensation throughout. Patient does appear depressed has a flat affect. She does admit to continued suicidal thoughts. Test Results: CBC and chemistry studies are unremarkable. TSH is normal. test negative. Tox and EtOH are normal. Emergency Department Course and Treatment: Patient was discussed with Jovita from the counseling center. Patient has been accepted at [facility] in [place]. Treatment Plan: [] Disposition: Transfer Impression: Suicidal ideation This note was generated with [employer] [employer] dictation software. It may contain incorrect words, spelling, and punctuation that were not noted in review of the chart prior to signing ED Disposition - Plan for ED Patient: Chief Complaint: Suicidal Referrals: Care Physician,No Primary [Primary Care Provider] - What to do if you have Problems For any increased pain, shortness of breath, bleeding, nausea or vomiting, chest pain, or any unexpected problems, contact your Primary Care Provider. Call [employer] [facility] ([phone]) or report to the closest Emergency Room. Call 911 if necessary. 11/14/17 1801 <Electronically signed by Dasha Liang MD> Date Dasha Liang MD Cosigner Signature (If Indicated): Date CC: No Primary Care Physician CBC W/DIFF, AUTOMATED Collected: 11/14/2017 Status: F Source: [place] 1:45 PM [facility] REPOSITORY TYPE CODE TESTS RESULT OUT OF RANGE REFERENCE UNITS LAB L100.1000 4.4-11.0 K/mm3 Normal WBC 8.7 LAB L100.1200 4.2-5.4 M/mm3 Normal RBC 5.13 LAB L100.1300 12.0-15.0 g/dl Normal HGB 14.3 LAB L100.1400 37-47 % Normal HCT 42.3 LAB L100.1500 81-99 fL Normal MCV 82.5 LAB L100.1600 27.0-32.0 pg Normal MCH 27.9 LAB L100.1700 32-36 g/gl Normal MCHC 33.8 LAB L100.1810 11.6-14.6 % Normal RDW CV 13.5 LAB L100.1820 35.1-43.9 fl Normal RDW SD 40.9 LAB L100.1900 150-450 K/mm3 Normal PLT 299 LAB L100.2000 6.2-12.0 fl Normal MPV 9.2 LAB L100.2100 47-70 % Normal NEUT% 55.1 LAB L100.2200 19-41 % Normal LY% 36.4 LAB L100.2300 0-10 % Normal MONO% 7.2 LAB L100.2400 0-5 % Normal EO% 0.9 LAB L100.2500 0-1 % Normal BASO% 0.3 LAB L100.2550 0.0-0.9 % Normal IM GRAN % 0.100 Result Comment: IG% - Immature Granulocytes (promyelocytes, myelocytes and metamyelocytes) > 1% indicates that a LEFT SHIFT is Present. LAB L100.2620 2.0-7.7 X10 3/uL Normal Absolute Neut 4.8 LAB L100.2720 0.83-4.51 X10 3/ul Normal Absolute Lymph 3.18 Performed By: #### L100.0100 #### [facility] [address] [place], [place], [address] ,SERUM,HCG QUALI. Collected: Status: F Source: [place] 11/14/2017 1:45 PM [facility] REPOSITORY TYPE CODE TESTS RESULT OUT OF REFERENCE UNITS RANGE LAB L700.7000 0-9 Nonpreg Negative Normal HCGSQUAL NEGATIVE LAB L700.6700 =>Qualitative mIU/mL Normal HCG Qual < 1 triggr Performed By: #### L700.6800 #### [facility] [address] [facility]. [place], [place], [address] ALCOHOL, BLOOD Collected: 11/14/2017 Status: F Source: [place] (MEDICAL)-SERUM 1:45 PM [facility] REPOSITORY TYPE CODE TESTS RESULT OUT OF RANGE REFERENCE UNITS LAB L501.9100 mg/dL Normal SERUM 4.0 ETOH Result Comment: The serum:whole blood ethanol ratio is approximately 1.14 and varies slightly with hematocrit. Medical Alcohol reference interval and critical value in non-tolerant individuals; 50 - 100 Impairment 100 Intoxication 100 - 250 Severe Poisoning 250 - 400 Deep/possible fatal coma Performed By: #### L501.9100 #### [facility] [address] [facility]. [place], [place], [address] BASIC METABOLIC Collected: 11/14/2017 Status: F Source: [place] PROFILE (BMP) 1:45 PM [facility] REPOSITORY TYPE CODE TESTS RESULT OUT OF RANGE REFERENCE UNITS LAB L501.0100 74-106 mg/dL Normal GLU 77 Result Comment: Please note revised GLUCOSE reference range effective 2017. LAB L501.1000 7-18 mg/dL Normal BUN 15 LAB L501.1100 0.55-1.02 mg/dL Normal CREAT,SERUM 0.72 Result Comment: The validity of the calculated GFR AND GFRAA in patients over 70 years has not been determined. Clinical correlation is essential. LAB L501.1110 >60 mL/min Normal EST GFR 100 Result Comment: Non- GFR Calc LAB L501.1115 >60 mL/min Normal EST GFR - AA 121 Result Comment: GFR Calc LAB L501.1255 ml/min Normal Estimated CRCL 106.96 LAB L501.1300 10-20 RATIO High BUN/CRE 20.7 LAB L501.2200 8.5-10 mg/dL .1 CA Normal 8.6 LAB L501.5300 136-14 mmol/L 5 NA Normal 142 LAB L501.5600 3.5-5. mmol/L 1 K Normal 3.9 LAB L501.5900 98-107 mmol/L High CL 109 LAB L501.6100 21.0-3 mmol/L 2.0 CO2 Normal 26.0 LAB L501.6200 5-15 GAP Normal 7 Performed By: #### L500.2500, L501.9520 #### [facility] [address] [facility]. [place], [place], [id number] THYROID STIM HORMONE Collected: 11/14/2017 Status: F Source: [place] (TSH) 1:45 PM [facility] REPOSITORY TYPE CODE TESTS RESULT OUT OF RANGE REFERENCE UNITS LAB L501.9520 0.358-3.74 uIU/mL Normal TSH 1.14 Performed By: #### L500.2500, L501.9520 #### [facility] [address] [facility]. [place], [place], [address] URINE DRUG SCREEN Collected: 11/14/2017 Status: F Source: [place] (VISTA) 1:26 PM [facility] REPOSITORY TYPE CODE TESTS RESULT OUT OF RANGE REFERENCE UNITS LAB L505.0075 TO BE Normal CONFIRMED Result Comment: CONFIRMATORY TESTING FOR ALL POSITIVE URINE DRUG SCREEN RESULTS WILL ONLY BE SENT OUT UPON PHYSICIAN ORDER. VISTA Urine Drug Screen methods provide only preliminary analytical test results. A more specific alternate chemical method must be used in order to obtain a confirmed analytical result. Gas chromatography/mass spectrometery (GC/MS) is the preferred confirmatory method. Clinical consideration and professional judgement should be applied to any drug of abuse test result, particularly when preliminary positive results are used. URINE TCA TESTING MUST BE ORDERED SEPARATELY. USE TEST MNEMONIC: [facility] LAB L505.5005 VISTA UDS PH 5 Normal LAB L505.5015 <1000 ng/mL AMPHETAMINES Normal NEGATIVE LAB L505.5025 < 200 ng/mL BARBITIURATES Normal NEGATIVE LAB L505.5035 < 200 ng/mL BENZODIAZIPINE Normal NEGATIVE LAB L505.5045 < 300 ng/mL COCAINE Normal NEGATIVE LAB L505.5055 < 500 ng/mL ECSTACY Normal NEGATIVE LAB L505.5065 < 300 ng/mL METHADONE Normal NEGATIVE LAB L505.5075 < 300 ng/mL OPIATES Normal NEGATIVE LAB L505.5085 < 25 ng/mL PCP Normal NEGATIVE LAB L505.5095 < 50 ng/mL THC Normal NEGATIVE Performed By: #### L505.5000 #### [facility] [address] [place], [address] URINALYSIS, COMPLETE Collected: 11/14/2017 Status: F Source: [place] 1:26 PM [facility] REPOSITORY Order Comment: Order Date: 11/14/17 How was Urine Obtained? STAMPER BLOCKER TO SPECIFY TYPE CODE TESTS RESULT OUT OF RANGE REFERENCE UNITS LAB L400.3000 Yellow COLOR Normal Yellow LAB L400.3050 Clear Normal CLARITY Sl. Cloudy LAB L400.3200 Normal mg/dl Normal GLUCOSE, UR Normal LAB L400.3300 Negative mg/dL Normal BILIRUBIN URINE Negative LAB L400.3400 Negative mg/dl Normal KETONE UR Negative LAB L400.3465 1.002-1.030 Normal SP.GR. DIPSTX 1.020 LAB L400.3550 5.0 - 8.0 pH UR Normal 6.0 LAB L400.3600 Negative mg/dl PROT Normal DIPSTX Negative LAB L400.3700 Normal mg/dl Normal UROBILI Normal LAB L400.3750 Negative Normal NITRITE UR Negative LAB L400.3780 Negative /ul High 25 OCCULT BLOOD-UR LAB L400.3800 Negative /ul LEUK Normal ESTERASE Negative LAB L400.4050 0-5 /hpf WBC 0 Normal SEEN LAB L400.4100 0-5 /hpf Normal RBC-UA 0-5 SEEN LAB L400.4150 5-10 /hpf SQUAM Normal EPI 0-5 SEEN LAB L400.4300 None Seen /hpf Normal BACTERIA RARE LAB L400.4350 <or=2+ /hpf 0 Normal MUCUS, URINE SEEN LAB L400.4900 1+ Normal AMORPHOUS URATE Performed By: #### L400.0001 #### [facility] [address] [place], [address] EMERGENCY DEPARTMENT Observed: 11/01/2017 Status: F Source: [place] SUMMARY 7:53 AM [facility] REPOSITORY [facility] Medical Records Department [address] [place] [address] Emergency Department Summary 11/01/17 0514 MR#: [id number] Acct: [id number] Name: SONDRA SERRANO Rep #: [id number] : 1985 31 From: Jackson Ware MD PCP: Care Physician, No Primary Status: DEP ER - ER Visit Summary Date of Service: 11/01/17 Chief Complaint: [] Cough History of Present Illness: The patient is a 31 F [] upper respiratory symptoms including cough headache nasal congestion weakness runny nose and sore throat pharyngitis for the last 7 days. Seen in the emergency department 2 days ago for abdominal pain with negative labs and CT abdomen pelvis. She has been using Tylenol Physical Examination: Vital signs reviewed General: Well-nourished well-developed Head: Normocephalic atraumatic Eyes: Pupils equal round and reactive to light extraocular movements intact ENT: TMs clear no hemotympanum no trauma Neck: Nontender full range of motion Cardiovascular: Regular rate rhythm no murmurs normal S1-S2 Respiratory: No distress clear to auscultation bilaterally chest nontender Abdomen: Soft nontender nondistended normal bowel sounds no masses Back: Nontender no CVA tenderness Extremities: Nontender active range of motion 4 extremities no trauma Skin: Normal color no trauma Neuro alert oriented cranial nerves II through XII intact normal strength sensation reflexes Test Results: [] Emergency Department Course and Treatment: [] Has an upper respiratory infection with laryngitis. This is viral. She will use crof-xyg-blsesfy treatments. Treatment Plan: [] Disposition: [] Impression: [] Upper respiratory infection This note was generated with [employer] software. It may contain incorrect words, spelling, and punctuation that were not noted in review of the chart prior to signing ED Disposition - Plan for ED Patient: Chief Complaint: Cold Sx Referrals: Care Physician,No Primary [Primary Care Provider] - What to do if you have Problems For any increased pain, shortness of breath, bleeding, nausea or vomiting, chest pain, or any unexpected problems, contact your Primary Care Provider. Call [facility] ([phone]) or report to the closest Emergency Room. Call 911 if necessary. 11/01/17752 <Electronically signed by Jackson Ware MD> Date Jackson Ware MD Cosigner Signature (If Indicated): Date CC: No Primary Care Physician DISCHARGE INSTRUCTION Observed: 11/01/2017 Status: F Source: [place] 7:53 AM [facility] REPOSITORY [facility] Medical Records Department [address] [place] [address] Discharge Instruction 11/01/17 0515 MR#: [id number] Acct: [id number] Name: SONDRA SERRANO Rep #: [id number] : 1985 31 From: Jackson Ware MD PCP: Levi Physician, No Primary Status: DEP ER ED Disposition - Plan for ED Patient: Disposition: Home or Assisted Living Chief Complaint: Cold Sx Instructions: ED Upper Resp Infec No Abx Tx Referrals: Care Physician,No Primary [Primary Care Provider] - Jamal Brock MD [STAFF PHYSICIAN] - What to do if you have Problems For any increased pain, shortness of breath, bleeding, nausea or vomiting, chest pain, or any unexpected problems, contact your Primary Care Provider. Call [facility] ([phone]) or report to the closest Emergency Room. Call 911 if necessary. 11/01/17752 <Electronically signed by Jackson Ware MD> Date Jackson Ware MD Cosigner Signature (If Indicated): Date _ CC: No Primary Care Physician DISCHARGE INSTRUCTION Observed: 10/30/2017 Status: F Source: [place] 11:44 AM [facility] REPOSITORY [facility] Medical Records Department [address] [place] [address] Discharge Instruction 10/30/17 1142 MR#: [id number] Acct: [id number] Name: SONDRA SERRANO Rep #: [id number] : 1985 31 From: Batsheva Zafar DO PCP: Care Physician, No Primary Status: REG ER ED Disposition - Plan for ED Patient: Chief Complaint: Abd Pain Instructions: ED Abdominal Pain Unkn Cause Prescriptions: Ondansetron [Zofran Odt] 4 mg PO Q8H PRN PRN #10 tab PRN Reason: Nausea Dicyclomine HCl [Bentyl] 20 mg PO TIDAC #20 cap Referrals: Care Physician,No Primary [Primary Care Provider] - Judi Starks DO [STAFF PHYSICIAN] - 3-5 Days What to do if you have Problems For any increased pain, shortness of breath, bleeding, nausea or vomiting, chest pain, or any unexpected problems, contact your Primary Care Provider. Call [facility] ([phone]) or report to the closest Emergency Room. Call 911 if necessary. 10/30/17 1144 <Electronically signed by Batsheva Zafar DO> Date Batsheva Zafar DO Cosigner Signature (If Indicated): Date CC: No Primary Care Physician EMERGENCY DEPARTMENT Observed: 10/30/2017 Status: F Source: [place] SUMMARY 11:42 AM [facility] REPOSITORY [facility] Medical Records Department [address] [place] [address] Emergency Department Summary 10/30/17 1139 MR#: [id number] Acct: [id number] Name: SONDRA SERRANO Rep #: [id number] : 1985 31 From: Batsheva Zafar DO PCP: Care Physician, No Primary Status: REG ER - ER Visit Summary Date of Service: 10/30/17 Chief Complaint: [Abdominal pain] History of Present Illness: The patient is a 31 F [presents to the emergency department with abdominal pain that started at 4 AM. Patient was awoken from sleep with it. Patient describes the pain as continuous with waxing and waning of the discomfort. Patient does not have vomiting although she has some mild nausea. Patient has not had any diarrhea. Last bowel movement was last evening. Patient states that she has not had a period for several months. Patient denies any vaginal bleeding. Patient denies urinary symptoms. Patient states that she had a low-grade fever this morning at 7:30 AM of 100.0.] Physical Examination: [HEENT-PERRLA, EOMI. Cranial nerves II through XII grossly intact. TMs clear. Mucous membranes moist. No adenopathy. Cardiovascular-regular rate and rhythm without murmur or ectopy Lungs-clear to auscultation, chest wall stable without crepitus or subcu emphysema Abdomen-hyper active bowel sounds, soft, tender diffusely, no rebound or rigidity, no peritoneal signs. Extremities-intact 4, normal range of motion, normal pulses, atraumatic] Test Results: CBC with differential was normal. Chemistries were normal. Urinalysis was normal. HCG was negative. [CT scan of the abdomen and pelvis was normal.] Emergency Department Course and Treatment: [Patient was medicated with Zofran.] Treatment Plan: [Patient will be given a prescription for Zofran and Bentyl.] Disposition: [Discharged home in stable condition. Patient will be advised to follow-up with primary care physician electronic system engineer. Patient to return if worsening pain, vomiting, or condition should worsen in any way.] Impression: Abdominal pain-etiology uncertain [] This note was generated with [employer] software. It may contain incorrect words, spelling, and punctuation that were not noted in review of the chart prior to signing ED Disposition - Plan for ED Patient: Chief Complaint: Abd Pain Referrals: Care Physician,No Primary [Primary Care Provider] - What to do if you have Problems For any increased pain, shortness of breath, bleeding, nausea or vomiting, chest pain, or any unexpected problems, contact your Primary Care Provider. Call [facility] ([phone]) or report to the closest Emergency Room. Call 911 if necessary. 10/30/17 1142 <Electronically signed by Batsheva Zafar DO> Date Batsheva Zafar DO Cosigner Signature (If Indicated): Date CC: No Primary Care Physician CBC W/DIFF, AUTOMATED Collected: 10/30/2017 Status: F Source: [place] 10:20 AM [facility] REPOSITORY TYPE CODE TESTS RESULT OUT OF RANGE REFERENCE UNITS LAB L100.1000 4.4-11.0 K/mm3 Normal WBC 9.2 LAB L100.1200 4.2-5.4 M/mm3 Normal RBC 5.02 LAB L100.1300 12.0-15.0 g/dl Normal HGB 14.0 LAB L100.1400 37-47 % Normal HCT 41.4 LAB L100.1500 81-99 fL Normal MCV 82.5 LAB L100.1600 27.0-32.0 pg Normal MCH 27.9 LAB L100.1700 32-36 g/gl Normal MCHC 33.8 LAB L100.1810 11.6-14.6 % Normal RDW CV 13.5 LAB L100.1820 35.1-43.9 fl Normal RDW SD 40.7 LAB L100.1900 150-450 K/mm3 Normal PLT 244 LAB L100.2000 6.2-12.0 fl Normal MPV 9.1 LAB L100.2100 47-70 % High NEUT% 73.9 LAB L100.2200 19-41 % Low LY% 13.3 LAB L100.2300 0-10 % High MONO% 11.2 LAB L100.2400 0-5 % Normal EO% 1.2 LAB L100.2500 0-1 % Normal BASO% 0.3 LAB L100.2550 0.0-0.9 % Normal IM GRAN % 0.100 Result Comment: IG% - Immature Granulocytes (promyelocytes, myelocytes and metamyelocytes) > 1% indicates that a LEFT SHIFT is Present. LAB L100.2620 2.0-7.7 X10 3/uL Normal Absolute Neut 6.8 LAB L100.2720 0.83-4.51 X10 3/ul Normal Absolute Lymph 1.22 Performed By: #### L100.0100 #### [facility] [address] [place], [address] BASIC METABOLIC Collected: 10/30/2017 Status: F Source: [place] PROFILE ([facility]) 10:20 AM [facility] REPOSITORY TYPE CODE TESTS RESULT OUT OF RANGE REFERENCE UNITS LAB L501.0100 74-106 mg/dL Normal GLU 86 Result Comment: Please note revised GLUCOSE reference range effective 2017. LAB L501.1000 7-18 mg/dL Normal BUN 13 LAB L501.1100 0.55-1.02 mg/dL Normal CREAT,SERUM 0.92 Result Comment: The validity of the calculated GFR AND GFRAA in patients over 70 years has not been determined. Clinical correlation is essential. LAB L501.1110 >60 mL/min Normal EST GFR 76 Result Comment: Non- GFR Calc LAB L501.1115 >60 mL/min Normal EST GFR - AA 92 Result Comment: GFR Calc LAB L501.1255 ml/min Normal Estimated CRCL 84.46 LAB L501.1300 10-20 RATIO Normal BUN/CRE 14.1 LAB L501.2200 8.5-10 mg/dL Normal .1 CA 8.9 LAB L501.5300 136-14 mmol/L Normal 5 NA 138 LAB L501.5600 3.5-5. mmol/L Normal 1 K 3.9 LAB L501.5900 98-107 mmol/L Normal CL 106 LAB L501.6100 21.0-3 mmol/L Normal 2.0 CO2 26.0 LAB L501.6200 5-15 Normal GAP 6 Performed By: #### L500.2500, L501.2450 #### [facility] [address] [place], [address] LIPASE Collected: 10/30/2017 Status: F Source: [place] 10:20 AM [facility] REPOSITORY TYPE CODE TESTS RESULT OUT OF RANGE REFERENCE UNITS LAB L501.2450 73-393 U/L Normal LIPASE 98 Performed By: #### L500.2500, L501.2450 #### [facility] [address] [place], [address] ,SERUM,HCG QUALI. Collected: Status: F Source: [place] 10/30/2017 10:20 AM [facility] REPOSITORY TYPE CODE TESTS RESULT OUT OF REFERENCE UNITS RANGE LAB L700.6700 =>Qualitative mIU/mL Normal HCG Qual < 1 triggr LAB L700.7000 0-9 Nonpreg Negative Normal HCGSQUAL NEGATIVE Performed By: #### L700.6800 #### [facility] [address] [place], [address] URINALYSIS, COMPLETE Collected: 10/30/2017 Status: F Source: [place] 10:13 AM [facility] REPOSITORY Order Comment: Has pt arrived? Y How was Urine Obtained? CLEAN CATCH TYPE CODE TESTS RESULT OUT OF RANGE REFERENCE UNITS LAB L400.3000 Yellow COLOR Normal Yellow LAB L400.3050 Clear Normal CLARITY Sl. Cloudy LAB L400.3200 Normal mg/dl Normal GLUCOSE, UR Normal LAB L400.3300 Negative mg/dL Normal BILIRUBIN URINE Negative LAB L400.3400 Negative mg/dl Normal KETONE UR Negative LAB L400.3465 1.002-1.030 Normal SP.GR. DIPSTX 1.015 LAB L400.3550 5.0 - 8.0 pH UR Normal 7.0 LAB L400.3600 Negative mg/dl PROT Normal DIPSTX Negative LAB L400.3700 Normal mg/dl Normal UROBILI Normal LAB L400.3750 Negative Normal NITRITE UR Negative LAB L400.3780 Negative /ul Normal OCCULT BLOOD-UR Negative LAB L400.3800 Negative /ul LEUK Normal ESTERASE Negative LAB L400.4050 0-5 /hpf WBC Normal 0-5 SEEN LAB L400.4100 0-5 /hpf Normal RBC-UA 0-5 SEEN LAB L400.4150 5-10 /hpf SQUAM Normal EPI 10-25 SEEN LAB L400.4300 None Seen /hpf 4+ Normal BACTERIA LAB L400.4350 <or=2+ /hpf 1+ Normal MUCUS, URINE Performed By: #### L400.0001 #### [facility] [address] [facility] [place], [address] ABDOMEN/PELVIS WITHOUT Observed: 10/30/2017 Status: F Source: [place] CONT 10:00 AM [facility] REPOSITORY [facility] Imaging Services [address] [place] [address] Abdomen/Pelvis without Cont MR#: [id number] Acct: [id number] Name: SONDRA SERRANO Rep #: [id number] : 1985 F 31 From: Molina Luis MD PCP: Care Physician, No Primary Status: REG ER Study: Abdomen/Pelvis without Cont Date of Exam: 10/30/17 Exam# [id number] Ordering Dr: Batsheva Zafar DO STUDY: CT ABDOMEN AND PELVIS WITHOUT CONTRAST REASON FOR EXAM: Female, 31 years old. Diffuse sharp abdominal pain. Nausea. RADIATION DOSAGE (If Supplied By Facility): CTDIvol = ( 18.67 ) mGy, DLP = ( 1040.18 ) mGycm TECHNIQUE: Transaxial images were obtained from the dome of the diaphragm to the symphysis pubis without oral contrast, and without intravenous contrast. Sagittal and coronal images were reconstructed. Individualized dose optimization techniques were used for this CT. COMPARISON: Comparison is made with prior study dated August 26, 2017. FINDINGS: The visualized lung bases are unremarkable. The visualized portions of the heart are within normal limits. Normal liver. There are surgical clips in the gallbladder fossa consistent with a prior cholecystectomy. Normal spleen. Normal pancreas. Normal bilateral adrenal glands. Normal right kidney. Normal left kidney. Normal visualized stomach. Normal small intestine. Normal colon. The appendix is visualized and appears normal. Normal abdominal aorta. Normal inferior vena cava. There is borderline retroperitoneal lymphadenopathy with enlarged nodes no greater than 10mm in the short axis diameter. Normal urinary bladder. There is a left-sided inguinal hernia containing adipose tissue. Small umbilical hernia containing fat. Small benign-appearing bilateral inguinal lymph nodes. Normal osseous structures. CT/Abdomen/Pelvis without Cont IMPRESSION: Normal unenhanced CT of the abdomen and pelvis. Electronically Signed: Molina Luis MD at 11:29 EST Tel [phone], Service support , CC: No Primary Care Physician; Batsheva Zafar DO Payroll Accountant: Signed ALLERGIES ALLERGIES DATE TYPE / CODE NAME / CODE REACTION SEVERITY SOURCE 09/25/2018 Miscellaneous TAPE Rash Unknown Cristina Allergy/006384901( Community NOMED CT) Hospital Repository 07/18/2013 Chemical/[id number]( ADHESIVE TAPE RASH [place] SNOMED CT) ([facility]) [facility] Repository ENCOUNTERS ENCOUNTERS ADMIT/DISCHARGE ACCOUNT NUMBER ADMITTING ENCOUNTER LOCATION SOURCE CLASS 09/25/2018/09/25/19 [id number] Emergency [address] ding:ED Repository 09/12/2018/09/12/19 [id number] Emergency [address] ding:ED Repository 08/08/2018/08/09/20 [id number] Ambulatory [address] [place] Repository 07/29/2018 [id number] [facility] Other [place] Repository 07/25/2018/07/29/20 [id number] Ambulatory [address] [place] Repository 07/25/2018/07/25/20 [id number] Emergency [address] ding:ED Repository 07/18/2018/07/18/20 [id number] Emergency [address] ding:ED Repository 07/17/2018/07/17/20 [id number] Emergency Anton Cristina[address] ding:ED Repository 06/27/2018/06/27/20 [id number] Emergency Cristina Anton[address] ding:ED Repository 06/25/2018/06/26/20 [id number] Emergency Anton Anton[address] ding:ED Repository 03/17/2018/03/17/20 [id number] Emergency Cristina Cristina[address] ding:ED Repository 03/11/2018/03/11/20 [id number] Emergency BBuilding:ER [address] Repository 03/05/2018/03/05/20 [id number] Emergency Anton Anton[address] ding:ED Repository 02/27/2018/02/28/20 [id number] Emergency BBuilding:ER [address] Repository 11/23/2017/11/24/19 [id number] Emergency BBuilding:ER [address] Repository 11/14/2017/11/15/19 [id number] Emergency [address] ding:ED Repository 11/10/2017/11/11/19 [id number] Emergency BBuilding:ER [address] Repository 11/01/2017/11/01/19 [id number] Emergency [address] ding:ED Repository 10/30/2017/10/30/19 [id number] Emergency Anton Cristina[address] ding:ED Repository PAYERS PAYERS ENCOUNTER GUARANTOR PAYER SUBSCRIBER SOURCE 09/25/2018 SONDRA Crump Primary NOT GIVENUNK Anton [id number] BACK Insurance:SELF PAY [place], [place] Number: Effective Repository [id number]: [phone]) Date:2018-09-25 [phone] (HP) 09/12/2018 SONDRA Crump Primary NOT GIVENUNK Cristina [id number] BACK Insurance:SELF PAY [place], [place] Number: Effective Repository [phone]: [phone] Date:2018-09-12 [phone] () 07/25/2018 SONDRA E Primary NOT GIVENUNK Anton [id number] BACK Insurance:SELF PAY [facility], [place] Number: Effective Repository [id number]: (330) Date:2018-07-25 [phone] () 07/18/2018 SONDRA E Primary NOT GIVENUNK Cristina [id number] BACK Insurance:SELF PAY [facility] Number: Effective Repository [id number]: (330) Date:2018-07-18 [phone] (HP) 07/17/2018 SONDRA E Primary NOT GIVENUNK Anton [id number] BACK Insurance:SELF PAY [facility] Number: Effective Repository [id number]: (330) Date:2018-07-17 [phone] () 06/27/2018 SONDRA E Primary NOT GIVENUNK Anton [id number] BACK Insurance:SELF PAY [facility] Number[place] Effective Repository [id number]: (330) Date:2018-06-27 [phone] () 06/25/2018 SONDRA E Primary NOT GIVENUNK Anton [id number] BACK Insurance:SELF PAY [place] Number: Effective Repository [id number]: (330) Date:2018-06-25 [phone] () 03/17/2018 SONDRA E Primary NOT GIVENUNK Anton [id number] Back Insurance:SELF PAY [facility] Number: Effective Repository [id number]: (330) Date:2018-03-17 [phone] () 03/11/2018 SONDRA E Primary [facility] SIEDELDOB: [facility] [id number] [facility] Number: [id number] Repository BACK [place] Effective 6 BACK [facility], [place] Date:2018-03-11 [place], [place] [address]Bws: [phone] Name:[id number]: (HP) [phone] (HP) (WP) 03/05/2018 SONDRA Crump Primary NOT GIVENUNK Anton [id number] Back Insurance:SELF PAY [place], [place] Number: Effective Repository [id number]: (330) Date:2018-03-05 [phone] (HP) 02/27/2018 SONDRA E Primary [facility] Insurance:SELF SIEDELDOB: [facility] PAYPolicy Number: [id number] Repository BACK [place] Effective 6 BACK [facility], [place] Date:2018-02-27 - [place], [place] [address]Ihq: [phone] Name:[id number]: (HP) [phone] (HP) (WP) 11/23/2017 SONDRA E Primary SONDRA Crump [facility] SIEDELDOB: Insurance:SELF SIEDELDOB: [facility] PAYPolicy Number: [id number] Repository BACK [place] Effective 6 BACK [facility], [place] Date:2017-11-23 - [place], [place] [address]Coa: [phone] Name:[id number]: (HP) [phone] (HP) (WP) 11/14/2017 SONDRA E Primary NOT GIVENUNK Cristina [id number] Back Insurance:SELF PAY [place] Number: Effective Repository [id number]: (330) Date:2017-11-14 [phone] (HP) 11/10/2017 [facility]ONDRA E [facility] Insurance:SELF SIEDELDOB: [facility] PAYPolicy Number: [id number] Repository BACK [place] Effective 6 [place] Date:2017-11-10 - [place], [place] [address]Phr: [phone] Name:[id number]: (HP) [phone] (HP) (WP) 11/01/2017 SONDRA Crump Primary NOT GIVENUNK Cristina [id number] Back Insurance:SELF PAY [place] Number: Effective Repository [id number]: Date:2017-11-01 ~330 -6 (HP) 10/30/2017 Sondra Primary NOT GIVENUNK Cristina [id number] Back Insurance:SELF PAY [place] Number: Effective Repository [id number]: Date:2017-10-30 ~330 -6 (HP)
== END 2018-09-25 12:34 | disposition home or self-care (01) ==
PROVIDERS: Emergency Provider Emergency Medicine
DX: S93.402A Sprain of unspecified ligament of left ankle, initial encounter (principal); W00.0XXA Fall on same level due to ice and snow, initial encounter; Y93.9 Activity, unspecified; Y92.9 Unspecified place or not applicable; Y99.9 Unspecified external cause status; R11.0 Nausea; F32.9 Major depressive disorder, single episode, unspecified; F41.9 Anxiety disorder, unspecified; Z79.899 Other long term (current) drug therapy
CPT/HCPCS: 73610; 99283

== ENCOUNTER 2018-11-03 11:25 | Emergency (ER) | payer SELFPAY ==
[2018-11-03 11:26] VITALS: BP 149/85; PULSE 80; RESP 16; TEMP 36.8; O2SAT 97; BMI 38.2
--- NOTE | 2018-11-03 11:39 | ED.RN ---
PT REPORTS HAD BLOOD COMING OUT EAR AFTER BLOWING NOSE THIS MORNING AND EAR POPPED. DECREASED HEARING.
--- NOTE | 2018-11-03 11:43 | ED.VISSUMM ---
- ER Visit Summary Date of Service: 11/03/18 Chief Complaint: Left earache with discharge History of Present Illness: The patient is a 32 F history of prior ear tubes. Also history of anxiety. Patient states she had some leftover amoxicillin and started on just the other day due to ear pain. Today states she blew her nose felt a pop and saw drainage from her left ear. Possibly a small amount of blood. She denies any sore throat or significant cough. Physical Examination: Well-appearing young female. Vital signs are stable afebrile. She does not look septic or toxic. No distress. HEENT exam right ear canal and TM is normal except for there is some wax in the canal but I can see around it. Left ear canal is unremarkable except for some cloudy fluid and wax. I cannot see the left eardrum. There is no blood. There is no otitis externa. Posterior pharynx normal. Moist weeks membranes. No erythema or exudate. Neck nontender no lymphadenopathy. Lungs clear to auscultation bilaterally. Heart regular rhythm no murmur. Abdomen is soft and nontender. Extremities moves all 4. Neurologically she is awake and alert. She does have a dilated but reactive left pupil compared to the right. She states this is chronic. Test Results: None Emergency Department Course and Treatment: Currently there is no signs of perforated eardrum. There is no blood. She does have liquidy wax in her left ear that she can follow-up with ENT to have that irrigated. Treatment Plan: Follow-up with ENT. Continue on her current antibiotic. Disposition: Discharge Impression: Left ear pain with cerumen in the canal This note was generated with [employer] dictation software. It may contain incorrect words, spelling, and punctuation that were not noted in review of the chart prior to signing ED Disposition - Plan for ED Patient: Referrals: Care Physician,No Primary [Primary Care Provider] -
--- NOTE | 2018-11-03 11:47 | DCINST.ED_ITS ---
ED Disposition - Plan for ED Patient: Disposition: Home or Assisted Living Referrals: Tremayne Muñoz MD [STAFF PHYSICIAN] - 3-5 Days Additional Instructions: You have wax in your left ear canal. He can get [id number] Cerumenex or Debrox eardrops that should help dry it out and resolve it. You may need to follow-up with ear nose and throat doctors office to have it irrigated out. There are no signs of a perforated eardrum at this time but I cannot see the ea rdrum due to the wax and fluid in your ear. Continue your current antibiotic. Tylenol and Motrin for pain. Use a cotton ball to keep fluid out of your ear while bathing.
== END 2018-11-03 11:51 | disposition home or self-care (01) ==
LOC: ED 11:49
PROVIDERS: Emergency Provider Emergency Medicine
DX: H92.02 Otalgia, left ear (principal); H61.22 Impacted cerumen, left ear; Z87.442 Personal history of urinary calculi
CPT/HCPCS: 99282

== ENCOUNTER 2018-12-01 04:53 | Emergency (ER) | payer SELFPAY ==
[2018-12-01 04:54] VITALS: PULSE 78; RESP 16; TEMP 36.9; O2SAT 100; BMI 38.9
[2018-12-01 05:15] VITALS: BP 156/100; BP 158/103; BP 171/106; PULSE 70; PULSE 75
[2018-12-01 05:16] VITALS: BP 147/89
[2018-12-01 06:12] LABS: Absolute Lymphocyte Count 3.52 X10^3/ul (0.83-4.51); Basophil# 0.04 X10^3/uL; Basophil% 0.3 % (0-1); Eosinophil# 0.21 X10^3/uL; Eosinophils% 1.8 % (0-5); Hematocrit 40.5 % (37-47); Hemoglobin 13.8 g/dl (12.0-15.0); Lymphocyte # 3.52 X10^3/ul (4.0); Lymphocyte % 29.8 % (19-41); Mean Corp Hgb Conc 34.1 g/gl (32-36); Mean Corpuscular Hgb 27.8 pg (27.0-32.0); Mean Corpuscular Volume 81.5 fL (81-99); Mean Platelet Vol. 9.6 fl (6.2-12.0); Monocyte# 1.02 X10^3/uL; Monocyte% 8.6 % (0-10); Neutrophil # 6.99 X10^3/uL (2.7-7.7); Neutrophil % 59.3 % (47-70); POSITIVE COUNT NO; POSITIVE DIFFERENTIAL NO; POSITIVE MORPHOLOGY NO; Platelet Count 315 K/mm3 (150-450); RBC Distribution Width CV 13.7 % (11.6-14.6); RBC Distribution Width SD 40.7 fl (35.1-43.9); Red Blood Count 4.97 M/mm3 (4.2-5.4); White Blood Count 11.8 K/mm3 (4.4-11.0)
[2018-12-01 07:15] LABS: Pregnancy, Serum, hCG Quali. NEGATIVE Negative (0-9 Nonpreg)
--- NOTE | 2018-12-01 07:23 | US_ITS ---
STUDY: ULTRASOUND OF THE FEMALE PELVIS - COMPLETE REASON FOR EXAM: Female, 33 years old. Pelvic pain and back pain. Heavy bleeding. LMP: 11/29/2018 TECHNIQUE: Transabdominal and Transvaginal TECHNICAL QUALITY: Adequate. COMPARISON: None. FINDINGS: The uterus is anteverted and is in a midline position. The uterus measures 8.6 x 4.8 x 5.0 cm. There is a Nabothian cyst of the cervix. The endometrium measures 3 mm in thickness, and is hyperechoic. There is no demonstrated endometrial mass. Small uterine fibroid measuring 1.6 x 1.3 x 1.1 cm. I.U.D. - The patient does not have an I.U.D. The right ovary is visualized. The right ovary measures 3.6 x 3 x 2.3 cm. Small complex right ovarian follicle measuring 1.2 x 1.1 x 0.8 cm. There is no visualized right adnexal mass or complex lesion. There is normal arterial and normal venous vascularity. The left ovary is visualized. The left ovary measures 3 x 2.2 x 2.1 cm. There is no left ovarian cyst or ovarian mass. There is no visualized left adnexal mass or complex lesion. There is normal arterial and normal venous vascularity. There is no fluid in the cul-de-sac. US/Transvaginal Non- IMPRESSION: Small uterine fibroid, otherwise unremarkable exam Electronically Signed: Juan Yancey DO at 9:21 EDT Tel , Service support ,
[2018-12-01 09:31] VITALS: BP 116/67; O2SAT 99
[2018-12-01 10:11] VITALS: BP 131/87; O2SAT 100
--- NOTE | 2018-12-01 10:12 | ED.VISSUMM ---
- ER Visit Summary Date of Service: 12/01/18 Chief Complaint: [] History of Present Illness: The patient is a 33 F [] Physical Examination: [] Test Results: Transvaginal ultrasound was obtained. There is a uterine fibroid. There is good flow to both ovaries. There is no evidence of any ovarian torsion. This was interpreted by the radiologist. CBC was normal. Emergency Department Course and Treatment: Care of the patient was turned over to ma at 7 AM. CBC was normal. HCG is normal. Patient felt better on reevaluation. Patient was instructed to follow-up with her EMERGENCY ROOM NURSE in 5-7 days. Patient understood and was agreeable with the plan. All questions were answered. Disposition: Discharge home Impression: 1. Menorrhagia 2. Uterine fibroid This note was generated with testbirds dictation software. It may contain incorrect words, spelling, and punctuation that were not noted in review of the chart prior to signing ED Disposition - Plan for ED Patient: Disposition: Home or Assisted Living Instructions: ED Bleed Irregular Vaginal, ED Fibroids Referrals: Care Physician,No Primary [Primary Care Provider] - Lacey Aquino MD [STAFF PHYSICIAN] - 5-7 Days
--- NOTE | 2018-12-01 10:16 | ED.DCSUM_ITS ---
- ER Visit Summary Date of Service: 12/01/18 Chief Complaint: [] History of Present Illness: The patient is a 33 F [] Physical Examination: [] Test Results: Transvaginal ultrasound was obtained. There is a uterine fibroid. There is good flow to both ovaries. There is no evidence of any ovarian torsion. This was interpreted by the radiologist. CBC was normal. Emergency Department Course and Treatment: Care of the patient was turned over to al at 7 AM. CBC was normal. HCG is normal. Patient felt better on reevaluation. 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 Patient understood and was agreeable with the plan. All questions were answered. Disposition: Discharge home Impression: 1. Menorrhagia 2. Uterine fibroid This note was generated with [employer] dictation software. It may contain incorrect words, spelling, and punctuation that were not noted in review of the chart prior to signing ED Disposition - Plan for ED Patient: Disposition: Home or Assisted Living Instructions: ED Bleed Irregular Vaginal, ED Fibroids Referrals: Care Physician,No Primary [Primary Care Provider] - Lacey Aquino MD [STAFF PHYSICIAN] - 5-7 Days
[2018-12-01 10:48] VITALS: BP 136/92; PULSE 70; RESP 16; O2SAT 99
== END 2018-12-01 10:49 | disposition home or self-care (01) ==
PROVIDERS: Emergency Provider Emergency Medicine
DX: N92.0 Excessive and frequent menstruation with regular cycle (principal); D25.9 Leiomyoma of uterus, unspecified
CPT/HCPCS: 76830; 84703; 85025; 93976; 99283

== ENCOUNTER 2019-01-09 08:41 | Emergency (ER) | payer SELFPAY ==
[2019-01-09 08:42] VITALS: BP 170/102; PULSE 89; RESP 16; TEMP 36.3; O2SAT 98; BMI 37.1
[2019-01-09] MEDS: 0.9% Normal Saline 1,000 ML 1000 ML IV (09:40)
[2019-01-09] MEDS: Ondansetron 4 MG/2 ML Vial IV (09:41)
[2019-01-09 09:46] LABS: Absolute Lymphocyte Count 2.73 X10^3/ul (0.83-4.51); Basophil# 0.03 X10^3/uL; Basophil% 0.4 % (0-1); Eosinophil# 0.14 X10^3/uL; Eosinophils% 1.7 % (0-5); Hematocrit 41.1 % (37-47); Hemoglobin 14.1 g/dl (12.0-15.0); Lymphocyte # 2.73 X10^3/ul (4.0); Lymphocyte % 32.4 % (19-41); Mean Corp Hgb Conc 34.3 g/gl (32-36); Mean Corpuscular Volume 81.5 fL (81-99); Mean Platelet Vol. 9.2 fl (6.2-12.0); Monocyte# 0.48 X10^3/uL; Monocyte% 5.7 % (0-10); Neutrophil # 5.01 X10^3/uL (2.7-7.7); Neutrophil % 59.3 % (47-70); Platelet Count 271 K/mm3 (150-450); RBC Distribution Width CV 13.3 % (11.6-14.6); RBC Distribution Width SD 39.6 fl (35.1-43.9); Red Blood Count 5.04 M/mm3 (4.2-5.4); White Blood Count 8.4 K/mm3 (4.4-11.0)
[2019-01-09 09:49] LABS: POSITIVE COUNT NO; POSITIVE DIFFERENTIAL NO; POSITIVE MORPHOLOGY NO
--- NOTE | 2019-01-09 09:58 | ED.VISSUMM ---
- ER Visit Summary Date of Service: 01/09/19 Chief Complaint: I do not feel well History of Present Illness: The patient is a 33 F history of depression. Patient states he has been feeling well since his warning. Associated nausea with mild diarrhea. No melena nor fever nor dysuria. Physical Examination: Well-appearing young female. Vital signs are stable. Afebrile. She does not look septic toxic. She is in no distress. HEENT exam is unremarkable, except she does have an enlarged pupil on the left compared to the right. Patient states that is been there for some time. That is not had any change. And she has had a recent CT of the brain which showed no acute abnormality. Neck nontender no lymphadenopathy. Lungs good auscultation bilaterally. Heart regular rhythm no murmur. Abdomen is soft and nontender. Normal bowel sounds no peritoneal signs. Patient is moving all 4 extremities. Neurovascular intact. There is no edema. Neurologically she is awake alert with no focal motor deficits. Limited funduscopic exam of the left eye again is not dilated but its larger than 2 mm is a limited exam but is unremarkable. Test Results: CBC normal. White count 8. Hemoglobin 14. Chemistries normal. Normal creatinine and gap. Emergency Department Course and Treatment: Patient was treated with IV fluids and IV Zofran. Clinically it seems like she has a viral syndrome. She is a normal exam and unremarkable labs. On repeat exam at 1031 she is doing well without any change. Treatment Plan: Zofran for nausea. Call and follow-up with your ground intelligence officer at [facility]. Disposition: Discharged Impression: Viral syndrome This note was generated with [employer] dictation software. It may contain incorrect words, spelling, and punctuation that were not noted in review of the chart prior to signing ED Disposition - Plan for ED Patient: Referrals: Care Physician,No Primary [Primary Care Provider] -
[2019-01-09 10:00] LABS: Anion Gap 8 (5-15); BUN 15 mg/dL (7-18); BUN/Creat Ratio 19.1 RATIO (10-20); Calcium,Total 8.3 mg/dL (8.5-10.1); Chloride 110 mmol/L (98-107); Creatinine, Serum 0.78 mg/dL (0.55-1.02); EST Glomerular Filtration Rate 91 mL/min (>60); Est Glom Filt Rate - Afr Amer 110 mL/min (>60); Estimated Creatinine Clearance 97.83 ml/min; Glucose 92 mg/dL (74-106); Potassium 3.8 mmol/L (3.5-5.1); Sodium Level 142 mmol/L (136-145)
--- NOTE | 2019-01-09 10:07 | ED.DCSUM_ITS ---
- ER Visit Summary Date of Service: 01/09/19 Chief Complaint: I do not feel well History of Present Illness: The patient is a 33 F history of depression. Patient states he has been feeling well since his warning. Associated nausea with mild diarrhea. No melena nor fever nor dysuria. Physical Examination: Well-appearing young female. Vital signs are stable. Afebrile. She does not look septic toxic. She is in no distress. HEENT exam is unremarkable, except she does have an enlarged pupil on the left compared to the right. Patient states that is been there for some time. That is not had any change. And she has had a recent CT of the brain which showed no acute abnormality. Neck nontender no lymphadenopathy. Lungs good auscultation bilaterally. Heart regular rhythm no murmur. Abdomen is soft and nontender. Normal bowel sounds no peritoneal signs. Patient is moving all 4 extremities. Neurovascular intact. There is no edema. Neurologically she is awake alert with no focal motor deficits. Limited funduscopic exam of the left eye again is not dilated but its larger than 2 mm is a limited exam but is unremarkable. Test Results: CBC normal. White count 8. Hemoglobin 14. Chemistries normal. Normal creatinine and gap. Emergency Department Course and Treatment: Patient was treated with IV fluids and IV Zofran. Clinically it seems like she has a viral syndrome. She is a normal exam and unremarkable labs. On repeat exam at 1031 she is doing well without any change. Treatment Plan: Zofran for nausea. Call and follow-up with your fixer boarding room at [facility]. Disposition: Discharged Impression: Viral syndrome This note was generated with Gecko dictation software. It may contain incorrect words, spelling, and punctuation that were not noted in review of the chart prior to signing ED Disposition - Plan for ED Patient: Referrals: Care Physician,No Primary [Primary Care Provider] -
--- NOTE | 2019-01-09 10:36 | ED.DEP ---
ED Disposition - Plan for ED Patient: Disposition: Home or Assisted Living Instructions: ED Viral Syndrome Prescriptions: Ondansetron [Zofran Odt] 4 mg PO Q8H PRN PRN #7 tab PRN Reason: Nausea Referrals: Mauricio Andrews MD [STAFF PHYSICIAN] - 1 Week if not improving Additional Instructions: Follow-up with your eye doctor at the [facility]. Zofran for nausea. Follow-up with local primary care physician if not improving.
[2019-01-09 11:55] VITALS: BP 156/89; PULSE 74; RESP 17
== END 2019-01-09 11:56 | disposition home or self-care (01) ==
PROVIDERS: Emergency Provider Emergency Medicine
DX: B34.9 Viral infection, unspecified (principal); R19.7 Diarrhea, unspecified; R11.0 Nausea; F32.9 Major depressive disorder, single episode, unspecified; F41.9 Anxiety disorder, unspecified; Z87.442 Personal history of urinary calculi
CPT/HCPCS: 80048; 85025; 96361; 96374; 99283; J7030; J2405

== ENCOUNTER 2019-03-26 23:08 | Emergency (ER) | payer SELFPAY ==
[2019-03-26 23:09] VITALS: BP 138/75; PULSE 118; RESP 20; TEMP 37.4; O2SAT 98; BMI 38.6
--- NOTE | 2019-03-26 23:22 | EKG12_ITS ---
Test Reason : Blood Pressure : / mmHG Vent. Rate : 095 BPM Atrial Rate : 095 BPM P-R Int : 130 ms QRS Dur : 082 ms QT Int : 336 ms P-R-T Axes : 072 076 048 degrees QTc Int : 422 ms Normal sinus rhythm with sinus arrhythmia Possible Left atrial enlargement Borderline ECG Confirmed by ARACELY YOO, RAOUL ([id number]), editor news JOJO BLUM ([id number]) on 03/31/2019 12:14:44 PM Referred By: ISAURO Confirmed By:RAOUL JESSICA MD
--- NOTE | 2019-03-26 23:22 | RAD_ITS ---
STUDY: X-RAY CHEST REASON FOR EXAM: Female, 33 years old. Chest pain TECHNIQUE: Single AP portable view of the chest. COMPARISON: June 27, 2018 FINDINGS: The lungs are clear and expanded. There is no demonstrated pleural abnormality. Normal size heart. Normal mediastinum and rolando. Normal visualized pulmonary arteries. Normal visualized aortic arch and descending thoracic aorta. Normal visualized thoracic spine. Normal visualized ribs, clavicles, and shoulders. There is no demonstrated abnormality of the visualized soft tissue structures of the upper abdomen. RAD/Chest 1 View (Portable) IMPRESSION: Normal x-ray examination of the chest. Electronically Signed: Kennedy Howard MD at 0:01 EDT , Service support ,
--- NOTE | 2019-03-26 23:23 | ED.DCSUM_ITS ---
History of Present Illness Chief Complaint: Chest Pain Informant: Patient Onset: Today Quality: Sharp and squeezing Location: Upper sternal region Current Severity: Moderate Maximum Severity: Moderate Narrative: Patient states that approximately 30 minutes prior to arrival she developed sharp pain to the right flank area that quickly resolved, then developed pain in the upper sternal area. She describes it as sharp and tight squeezing. She does feel somewhat short of breath. She denies any known cardiac history but does not know her family history as she was adopted. - Past Medical History (1) Ovarian cyst Status: Acute (2) Kidney stones Status: Acute (3) Back pain Status: Acute (4) Anxiety Status: Acute (5) Depression Status: Acute Past Medical History - Allergies and Home Meds Allergies/Adverse Reactions: Allergies TAPE Allergy (Uncoded 12/01/18 04:57) Rash Primary Care Physician: Care Physician,No Primary [Primary Care Provider] - Prior records reviewed: Yes Past Medical History: - - Reviewed Lives: With Family Smoking Status: Never smoker Alcohol: Rare Drugs: None Review of Systems All systems negative except as indicated General: Denies: Chills, Fever Eyes: Denies: Visual changes - left, Visual changes - right ENT: Denies: Bilateral ear pain Cardiovascular: Reports: Chest pain. Denies: Palpitations Respiratory: Reports: Dyspnea. Denies: Cough, Sputum Gastrointestinal: Denies: Abdominal pain, Nausea, Vomiting Genitourinary: Denies: Dysuria, Hematuria, Frequency Musculoskeletal: Reports: Back pain - Brief flank pain, now resolved. Denies: Neck pain, Extremity Pain Neurological: Denies: Headache, Weakness, Parasthesia Endocrine: Denies: Polyuria Physical Exam Vital Signs/Narrative: Vital Signs Temp Pulse Resp BP Pulse Ox 03/26/19 23:09 99.4 F H 118 H 20 H 138/75 H 98 Inital Vital Signs reviewed: Yes General: Well nourished, Well developed Head: Normocephalic, Atraumatic Eyes: - - Injected conjunctiva from crying. ENT: Moist mucous membranes Neck: Supple Cardiovascular: Regular rate, Regular rhythm Respiratory: No distress, CTA bilaterally, - - Mild tenderness of the upper chest. No crepitus. Abdomen: Soft, Nontender, Hypoactive bowel sounds Back: Nontender Extremities: Nontender, No edema Skin: Normal color, No rash Neurological: Alert, Oriented x3 Psychological: Tearful Diagnostic/Tx/Re-eval Impressions Chest X-Ray 03/26/19 23:22 IMPRESSION: Normal x-ray examination of the chest. Electronically Signed: Kennedy Howard MD at 0:01 EDT , Service support , 03/26/19 23:22 Chest 1 View (Portable) [RAD] Stat Laboratory Results 03/26/19 03/26/19 03/26/19 23:30 23:30 23:30 WBC 12.1 H RBC 5.13 Hgb 14.4 Hct 41.7 MCV 81.3 MCH 28.1 MCHC 34.5 RDW Std Deviation 36.8 RDW Coeff of Theresa 12.4 Plt Count 301 MPV 9.4 Immature Gran % (Auto) 0.200 Neut % (Auto) 59.4 Lymph % (Auto) 32.7 Heard % (Auto) 6.1 Eos % (Auto) 1.2 Baso % (Auto) 0.4 Absolute Neuts (auto) 7.2 Absolute Lymphs (auto) 3.97 Absolute Nucleated RBC 0.00 Nucleated RBC % 0 D-Dimer Quant (PE/DVT) 0.34 Sodium 142 Potassium 3.5 Chloride 110 H Carbon Dioxide 23.0 Anion Gap 9 BUN 12 Creatinine 0.98 Estim Creat Clear Calc 77.86 Est GFR (MDRD) Af Amer 85 Est GFR (MDRD) Non-Af 71 BUN/Creatinine Ratio 12.3 Glucose 114 H Calcium 8.7 Troponin I < 0.015 Serum , Qual 03/26/19 23:30 WBC RBC Hgb Hct MCV MCH MCHC RDW Std Deviation RDW Coeff of Theresa Plt Count MPV Immature Gran % (Auto) Neut % (Auto) Lymph % (Auto) Heard % (Auto) Eos % (Auto) Baso % (Auto) Absolute Neuts (auto) Absolute Lymphs (auto) Absolute Nucleated RBC Nucleated RBC % D-Dimer Quant (PE/DVT) Sodium Potassium Chloride Carbon Dioxide Anion Gap BUN Creatinine Estim Creat Clear Calc Est GFR (MDRD) Af Amer Est GFR (MDRD) Non-Af BUN/Creatinine Ratio Glucose Calcium Troponin I Serum , Qual NEGATIVE - EKG Initial EKG Interpretation: Sinus Rhythm, - - Sinus at 95 with no acute ischemia. - Medical Decision Making Patient remained on electronic device monitor throughout her ED stay with no sign of arrhythmia. Patient was given morphine and Zofran for pain. On repeat evaluation symptoms are improved. Heart rate is now in the 70s and blood pressures in the 120s over 70s. I reviewed x-rays and imaging studies with her. At this time I question whether she may be having some esophageal spasm. Mediastinal silhouette is normal on x-ray. She will be given a trial of Bentyl and given Prilosec. She will be referred to Dr. arias, next on the no doc list for follow-up. ED Disposition - Plan for ED Patient: Disposition: Home or Assisted Living Diagnosis: Atypical chest pain Instructions: CHEST PAIN, Uncertain Cause Prescriptions: Dicyclomine HCl [Bentyl] 20 mg PO TIDAC PRN #20 capsule PRN Reason: Pain Omeprazole [Prilosec] 20 mg PO DAILY #30 capsule Referrals: Billie Arias DO [NON-STAFF] - As Needed
[2019-03-26 23:37] LABS: Absolute Lymphocyte Count 3.97 X10^3/uL (0.83-4.51); Absolute Neutrophil Count 7.2 X10^3/uL (2.0-7.7); Basophil# 0.05 X10^3/uL; Basophil% 0.4 % (0-1); Eosinophil# 0.15 X10^3/uL; Eosinophils% 1.2 % (0-5); Hematocrit 41.7 % (37-47); Hemoglobin 14.4 g/dL (12.0-15.0); Lymphocyte # 3.97 X10^3/ul (4.0); Lymphocyte % 32.7 % (19-41); Mean Corp Hgb Conc 34.5 g/dL (32-36); Mean Corpuscular Hgb 28.1 pg (27.0-32.0); Mean Corpuscular Volume 81.3 fL (81-99); Mean Platelet Vol. 9.4 fl (6.2-12.0); Monocyte# 0.74 X10^3/uL; Monocyte% 6.1 % (0-10); NRBC Flagged by Analyzer 0 % (0-5); Neutrophil % 59.4 % (47-70); Platelet Count 301 K/mm3 (150-450); RBC Distribution Width CV 12.4 % (11.6-14.6); RBC Distribution Width SD 36.8 fl (35.1-43.9); Red Blood Count 5.13 M/mm3 (4.2-5.4); White Blood Count 12.1 K/mm3 (4.4-11.0)
[2019-03-26] MEDS: 0.9% Normal Saline 1,000 ML 150 ML IV (23:37)
[2019-03-26] MEDS: Morphine 4 MG/ML Syringe IV (23:38)
[2019-03-26] MEDS: Ondansetron 4 MG/2 ML Vial IV (23:38)
[2019-03-26 23:48] LABS: D-Dimer Quantitative (DVT/PE) 0.34 FEU/ug/m (0.27-0.49)
[2019-03-26 23:49] LABS: Internal QC Validated? YES +Cl - CLEAR BKGD; Pregnancy, Serum, hCG Quali. NEGATIVE Negative
[2019-03-26 23:54] LABS: Anion Gap 9 (5-15); BUN 12 mg/dL (7-18); BUN/Creat Ratio 12.3 RATIO (10-20); Calcium,Total 8.7 mg/dL (8.5-10.1); Chloride 110 mmol/L (98-107); Creatinine, Serum 0.98 mg/dL (0.55-1.02); EST Glomerular Filtration Rate 71 mL/min (>60); Est Glom Filt Rate - Afr Amer 85 mL/min (>60); Estimated Creatinine Clearance 77.86 ml/min; Glucose 114 mg/dL (74-106); Potassium 3.5 mmol/L (3.5-5.1); Sodium Level 142 mmol/L (136-145)
[2019-03-27 00:34] VITALS: BP 125/79; PULSE 84; RESP 16; O2SAT 98
[2019-03-27 00:56] VITALS: BP 125/79; PULSE 84; RESP 16; O2SAT 98
== END 2019-03-27 00:57 | disposition home or self-care (01) ==
PROVIDERS: Emergency Provider Emergency Medicine
DX: R07.89 Other chest pain (principal); R06.02 Shortness of breath; Z87.442 Personal history of urinary calculi
CPT/HCPCS: 71045; 80048; 84484; 84703; 85025; 85379; 93005; 96361; 96374; 96375; 99285; J7030; A4216; J2405

== ENCOUNTER 2019-05-21 22:46 | Emergency (ER) | payer SELFPAY ==
[2019-05-21 22:48] VITALS: BP 161/104; PULSE 67; RESP 18; TEMP 36.9; O2SAT 100; BMI 38.0
--- NOTE | 2019-05-22 00:11 | CT_ITS ---
STUDY: CTA HEAD AND NECK WITH CONTRAST REASON FOR EXAM: Female, 33 years old. NAUSEA, NECK PAIN, EYE PAIN, VISION CHANGES RADIATION DOSAGE (If Supplied By Facility): CTDIvol = ( 29.66 ) mGy, DLP = ( 1449.69 ) mGycm TECHNIQUE: CT angiography was performed with a multi-detector CT scanner. Data acquisition was obtained from the skull base through the vertex following intravenous administration of 100ML IV Isovue 300. MIP images were reconstructed from the axial data set. Post-processing of the angiographic images was performed, with multiplanar reformation and 3D reconstruction. Individualized dose optimization techniques were used for this CT. COMPARISON: No relevant priors. FINDINGS: Normal bilateral petrous carotid arteries. Normal right cavernous carotid artery with a normal supraclinoid bifurcation. Normal left cavernous carotid artery with a normal supraclinoid bifurcation. Normal right A1 segments of the anterior cerebral artery. Normal left A1 segments of the anterior cerebral artery. Normal intact anterior communicating artery (ACOM). Normal bilateral A2 segments of the anterior cerebral arteries. Normal right M1 and M2 segments of the middle cerebral arteries, with a normal M1 bifurcation. Normal left M1 and M2 segments of the middle cerebral arteries, with a normal M1 bifurcation. Normal right posterior communicating artery (PCOM). Normal left posterior communicating artery (PCOM). Normal bilateral vertebral arteries. Normal basilar artery with a normal basilar bifurcation. The visualized bilateral superior cerebellar (SCA) arteries are normal. Normal bilateral P1, P2 and visualized P3 segments of the posterior cerebral arteries. There is no demonstrated aneurysm of the [place] of [place]. There is no demonstrated abnormality of the visualized brain. AORTIC ARCH: Normal visualized aortic arch. Normal origins of the brachiocephalic, left common carotid, and left subclavian arteries. RIGHT CAROTID ARTERIES: Normal right common carotid artery (CCA). Normal right common carotid bulb. Normal origin of the right internal carotid (ICA) artery without a hemodynamically significant stenosis. Normal visualized cervical portion of the right internal carotid artery. Normal origin of the right external carotid artery (ECA). LEFT CAROTID ARTERIES: Normal left common carotid artery (CCA). Normal left common carotid bulb. Normal origin of the left internal carotid (ICA) artery without a hemodynamically significant stenosis. Normal visualized cervical portion of the left internal carotid artery. Normal origin of the left external carotid artery (ECA). VERTEBRAL ARTERIES: Normal bilateral vertebral arteries. CT/CTA Head AND Neck W/ Contrast IMPRESSION: Normal CTA Head and neck with contrast. Electronically Signed: Hammad León, at 1:55 EDT Tel , Service support ,
--- NOTE | 2019-05-22 00:12 | ED.VIS.GEN ---
History of Present Illness Chief Complaint: General Illness Narrative: Patient is a 33-year-old female who presents with headache and eye pain. She complains of pain in both eyes for about 3 weeks. She also complains of a lot of pressure in her head and pain at the base of her skull on top of her neck which is a more recent development. She complains of some blurry vision. She also feels dizzy at times although has not had any syncopal episodes. No history of head trauma or injury. She otherwise denies recent illness such as fevers vomiting diarrhea. Took ibuprofen before presentation and currently her symptoms are actually much improved. Her symptoms are worse in the morning. On review of prior records in 2014 she presented with headache and had questionable vasculitis on her CTs however inflammatory markers were unremarkable and her symptoms were improved so she was discharged. 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 She reports having seen ophthalmology who is uncertain what causes. Past Medical History - Allergies and Home Meds Allergies/Adverse Reactions: Allergies TAPE Allergy (Uncoded 05/21/19 22:50) Rash Primary Care Physician: Care Physician,No Primary [Primary Care Provider] - Past Medical History: None Smoking Status: Never smoker Review of Systems All systems negative except as indicated General: Denies: Fever Eyes: Reports: Blurred vision - left, Blurred vision - right Cardiovascular: Denies: Chest pain Respiratory: Denies: Dyspnea Gastrointestinal: Reports: Nausea. Denies: Vomiting Neurological: Reports: Headache Physical Exam Vital Signs/Narrative: Vital Signs Temp Pulse Resp BP Pulse Ox 05/21/19 22:48 98.4 F 67 18 161/104 H 100 Inital Vital Signs reviewed: Yes General: Well nourished Head: Normocephalic Eyes: EOMI, - - Anisocoria, left pupil is dilated, right pupil reacts normally to light, extraocular motion intact without palsy ENT: Moist mucous membranes Neck: Supple Cardiovascular: Regular rate, Regular rhythm Respiratory: No distress, CTA bilaterally Abdomen: Soft Skin: Normal color Neurological: Alert, Normal Strength, Normal Sensation, - - Normal strength and sensation of the extremities Psychological: Normal affect Diagnostic/Tx/Re-eval Impressions Head/Neck CTA 05/22/19 00:11 IMPRESSION: Normal CTA Head and neck with contrast. Electronically Signed: Hammad León, at 1:55 EDT Tel , Service support , 05/22/19 00:11 CTA Head AND Neck W/ Contrast [CT] Stat Laboratory Results 05/22/19 05/22/19 00:20 00:20 WBC 13.8 H RBC 5.08 Hgb 14.3 Hct 42.7 MCV 84.1 MCH 28.1 MCHC 33.5 RDW Std Deviation 39.1 RDW Coeff of Theresa 12.8 Plt Count 312 MPV 9.6 Immature Gran % (Auto) 0.300 Neut % (Auto) 63.6 Lymph % (Auto) 28.3 [place] % (Auto) 6.1 Eos % (Auto) 1.2 Baso % (Auto) 0.5 Absolute Neuts (auto) 8.8 H Absolute Lymphs (auto) 3.92 Nucleated RBC % 0 ESR 17 Sodium 137 Potassium 4.6 Chloride 110 H Carbon Dioxide 22.0 Anion Gap 5 BUN 13 Creatinine 0.81 Estim Creat Clear Calc 94.21 Est GFR (MDRD) Af Amer 106 Est GFR (MDRD) Non-Af 88 BUN/Creatinine Ratio 16.1 Glucose 89 Calcium 8.5 C-React Prot Ext Range 6.30 H - Medical Decision Making Patient declined medications here given that her symptoms are improved. Given her symptoms with questionable prior history of vasculitis, inflammatory markers and CTA of the head and neck were ordered. These were normal. Labs unremarkable except mild elevation of CRP but ESR is normal and no abnormalities were seen on imaging. Patient's presentation could be due to migrainous pathology. She was advised to follow-up as an outpatient. She understands to return for new or worsening symptoms. She was discharged. ED Disposition - Plan for ED Patient: Disposition: Home or Assisted Living Diagnosis: Headache, Eye pain Instructions: HEADACHE, Unspecified Referrals: Care Physician,No Primary [Primary Care Provider] -
[2019-05-22 00:39] LABS: Absolute Lymphocyte Count 3.92 X10^3/uL (0.83-4.51); Absolute Neutrophil Count 8.8 X10^3/uL (2.0-7.7); Basophil# 0.07 X10^3/uL; Basophil% 0.5 % (0-1); Eosinophil# 0.17 X10^3/uL; Eosinophils% 1.2 % (0-5); Erythrocyte Sedimentation Rate 17 mm/hr (0-20); Hematocrit 42.7 % (37-47); Hemoglobin 14.3 g/dL (12.0-15.0); Lymphocyte # 3.92 X10^3/ul (4.0); Lymphocyte % 28.3 % (19-41); Mean Corp Hgb Conc 33.5 g/dL (32-36); Mean Corpuscular Hgb 28.1 pg (27.0-32.0); Mean Corpuscular Volume 84.1 fL (81-99); Mean Platelet Vol. 9.6 fl (6.2-12.0); Monocyte# 0.85 X10^3/uL; Monocyte% 6.1 % (0-10); NRBC Flagged by Analyzer 0 % (0-5); Neutrophil # 8.78 X10^3/uL (2.7-7.7); Neutrophil % 63.6 % (47-70); Platelet Count 312 K/mm3 (150-450); RBC Distribution Width CV 12.8 % (11.6-14.6); RBC Distribution Width SD 39.1 fl (35.1-43.9); Red Blood Count 5.08 M/mm3 (4.2-5.4); White Blood Count 13.8 K/mm3 (4.4-11.0)
[2019-05-22 01:15] LABS: Anion Gap 5 (5-15); BUN 13 mg/dL (7-18); BUN/Creat Ratio 16.1 RATIO (10-20); Calcium,Total 8.5 mg/dL (8.5-10.1); Chloride 110 mmol/L (98-107); Creatinine, Serum 0.81 mg/dL (0.55-1.02); EST Glomerular Filtration Rate 88 mL/min (>60); Est Glom Filt Rate - Afr Amer 106 mL/min (>60); Estimated Creatinine Clearance 94.21 ml/min; Glucose 89 mg/dL (74-106); Potassium 4.6 mmol/L (3.5-5.1); Sodium Level 137 mmol/L (136-145)
[2019-05-22 02:08] VITALS: BP 141/96; PULSE 69; RESP 16; O2SAT 99
== END 2019-05-22 02:08 | disposition home or self-care (01) ==
PROVIDERS: Emergency Provider Emergency Medicine
DX: R51 Headache (principal); H57.13 Ocular pain, bilateral; R42 Dizziness and giddiness; R11.0 Nausea; H57.02 Anisocoria
CPT/HCPCS: 70496; 70498; 80048; 85025; 85652; 86140; 99283; Q9967; A4216

== ENCOUNTER 2019-05-22 10:47 | Emergency (ER) | payer SELFPAY ==
[2019-05-21 22:48] VITALS: BMI 38.0
[2019-05-22 10:49] VITALS: BP 158/101; PULSE 78; RESP 20; TEMP 36.7; O2SAT 99; BMI 38.8
--- NOTE | 2019-05-22 11:38 | ED.DCSUM_ITS ---
History of Present Illness Chief Complaint: Eye Problem Informant: Patient Onset: Weeks - 3 Narrative: Patient here with grandmother evaluation worsening left eye pain after awakening 8 AM this morning. Reports had 1 minute of total vision loss which returned. She does not wear glasses or contacts. She states she covered her right eye at that time and could not see in her left eye. She is noticing more pain since then. She was seen late last evening for 3 weeks of eye pain and headaches, reported history of possible concerns for vasculitis, she had arterial scans of her head and neck yesterday which were negative. Labs noted slight elevated CRP white count of 13 ESR was normal. Due to noted improving symptoms she was sent home with outpatient evaluation. Per patient she called her teenage program director at [facility] this morning after event was told it was a medical problem go back to the ER. She last seen them a year ago. Patient does report migraine noted symptoms with aura sensations on monthly basis states would have aura and then headache symptoms. She has never seen a specialist. She is adopted therefore no family history is known. She states ibuprofen which transiently helped symptoms, however with her previous evaluations by outpatient PCP, was told to take her medications. Prior similar symptoms: Yes Past Medical History - Allergies and Home Meds Allergies/Adverse Reactions: Allergies TAPE Allergy (Uncoded 05/21/19 22:50) Rash Primary Care Physician: Care Physician,No Primary [Primary Care Provider] - Smoking Status: Never smoker Review of Systems General: Denies: Chills, Fever, Sweats Eyes: Reports: Blurred vision - left. Denies: Visual changes - bilaterally, Diplopia ENT: Denies: Rhinorrhea, Sore throat Cardiovascular: Denies: Chest pain, Palpitations Respiratory: Denies: Dyspnea, Cough, Dyspnea on exertion Gastrointestinal: Denies: Abdominal pain, Nausea, Vomiting, Diarrhea, Melena, Hematochezia Genitourinary: Denies: Dysuria, Hematuria, Frequency Musculoskeletal: Denies: Back pain, Extremity Pain Skin: Denies: Rash, Wounds Neurological: Denies: Headache, Weakness, Numbness Physical Exam Vital Signs/Narrative: Vital Signs Temp Pulse Resp BP Pulse Ox 05/22/19 10:49 98.1 F 78 20 H 158/101 H 99 Inital Vital Signs reviewed: Yes General: Well nourished, Well developed, No Acute Distress Head: Normocephalic, Atraumatic Eyes: EOMI, - - Slight anisocoria left eye compared to the right, however there would be some constriction. There was no light sensitivity. Visual acuity 20/40 left, 20/15 right. ENT: Moist mucous membranes, No rhinorrhea Neck: Supple, Nontender Cardiovascular: Regular rate, Regular rhythm, No murmurs Respiratory: No distress, CTA bilaterally, Chest nontender Abdomen: Soft, Nontender, Nondistended, Normal bowel sounds Back: Nontender, Normal Inspection Extremities: Nontender, No edema Skin: Normal color, No rash Neurological: Alert, Oriented x3, Cranial nerves II-XII grossly intact, Normal Strength, Normal Sensation Psychological: Normal affect, Normal Mood Diagnostic/Tx/Re-eval - Medical Decision Making Patient reports chronic dilation left eye compared to the right is known to her ophthalmology office. She does have blurry vision to the left eye compared to right on visual acuity. Patient has multitude of symptoms, and her work-up last seen I spoke with neurologist Dr. Russell. No at 1130, reports that she would need admission to rule out multiple sclerosis. However also feels there needs urgent evaluation by ophthalmology to rule out optic neuritis. Request I discussed with ophthalmology. I discussed with Dr. Peralta shortly afterwards, she reports she has more access with equipment for thorough examination in her office. Patient is chart sent open, sent over there for out of part department evaluation by ophthalmology. Approximately 1500: Received call back from teenage program director Dr. 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 She states not likely optic neuritis from her findings. However needs further rule out as an inpatient including MRI and MRV and LP with opening pressure afterward. She is sent back to the ED for disposition. In the interim I did we discussed with Dr. Russell, updated on findings from ophthalmology, he agrees with the work-up that is required, however he reports due to patient's age and reported vision loss, she will need neurosurgery input after the work-up and that cannot be done here. He recommended transferring to a center where there is neurosurgery. Spoke with patient they agree and options are being made for transfer at this time. 1600: I spoke with hospitalist at [facility], Dr. Long, discussed patient's history findings and recommendations by both ophthalmology and neurology. She is accepted to his service. CT angiograms and lab work from her visit late last night will be added to her chart for transport. Patient family updated. ED Disposition - Plan for ED Patient: Disposition: [facility] Diagnosis: Bilateral optic nerve edema, Cephalgia Referrals: Care Physician,No Primary [Primary Care Provider] -
--- NOTE | 2019-05-22 12:11 | ED.RN ---
PT LEFT TO GO TO OPTHAMOLOGIST, WILL RETURN TO BE ADMITTED.
--- NOTE | 2019-05-22 16:22 | CM.ED ---
Social Work Consult: Resources/Self-Pay Informant: school nurse Met with patient and patient grandmother in room. This perinatal social worker introduced self as well as perinatal social worker role, patient agreeable to meet with with this perinatal social worker. Patient stating to have had Medicaid in the past but to have lost it due to patient fiance making too much money. Patient stating to have also attempted to apply for disability 2-3 times. Patient stating to be unemployed and unable to work. Patient stating to have two children living within the home as well. Patient aware of [facility]. Encouraged patient to complete HCAP form for [facility] as well as maybe look into applying for medicaid again ones patient medical bills begin to be processed, patient voicing understanding. Support and active listening provided. Penelope GRIMES, MACY
[2019-05-22] MEDS: Morphine 4 MG/ML Syringe IV (16:30)
[2019-05-22 16:32] VITALS: BP 145/93; PULSE 76; RESP 16; O2SAT 100
[2019-05-22 17:07] VITALS: BP 145/93; PULSE 76; RESP 16; O2SAT 100
== END 2019-05-22 17:03 | disposition short-term general hospital (02) ==
PROVIDERS: Emergency Provider Emergency Medicine
DX: H47.10 Unspecified papilledema (principal); R51 Headache
CPT/HCPCS: 96374; 99285; A4216

== ENCOUNTER 2019-05-26 09:19 | Emergency (ER) | payer SELFPAY ==
[2019-05-26 09:20] VITALS: BP 146/96; PULSE 83; RESP 16; TEMP 36.4; O2SAT 100; BMI 37.9
--- NOTE | 2019-05-26 10:17 | ED.DCSUM_ITS ---
- ER Visit Summary Date of Service: 05/26/19 Chief Complaint: [Head and back pain] History of Present Illness: The patient is a 33 F [presents to the emergency department with symptoms for the last 2 days. Patient states that she was just discharged from [facility] yesterday. Patient had a lumbar puncture 2 days ago and diagnosed with pseudotumor cerebri. Patient states that initially they treated her with caffeine after the lumbar puncture and they felt that she would get better. Patient felt improved for short time but when she was discharged started complaining of pain in her upper back and dizziness with standing and severe headache with standing that seems to improve with laying fl at. She denies any fevers. She denies any visual changes currently.] Physical Examination: [HEENT-, left pupil is 8 mm and minimally reactive in the right pupil is 3 mm and reactive. Patient states this is a chronic finding as far as the dilated left pupil. EOMI. Cranial nerves II through XII grossly intact. TMs clear. Mucous membranes moist. No adenopathy. Cardiovascular-regular rate and rhythm without murmur or ectopy Lungs-clear to auscultation, chest wall stable without crepitus or subcu emphysema Abdomen-normoactive bowel sounds, soft, nontender, no rebound or rigidity, no peritoneal signs. Back exam-patient has some tenderness diffusely about the upper thoracic paraspinal musculature. Patient has a small puncture wound noted in her lumbar region from prior LP without any evidence of erythema or purulent drainage or warmth to the area. Deep tendon reflexes are plus 2 out of 4 bilaterally at the patella and Achilles. Patient has normal 5 extension bilaterally. Extremities-intact ?4, normal range of motion, normal pulses, atraumatic] Test Results: [CBC with differential and basic metabolic profile were ordered.] Emergency Department Course and Treatment: [Patient had an IV line established was given a liter normal same fluid bolus. Patient case was discussed with anesthesia on-call Dr. Beth who asked that we transfer patient back to the facility where she was initially evaluated and had the lumbar puncture performed as a complication related to the lumbar puncture. Dr. Beth I had reservations about performing a blood patch here due to the history of pseudotumor cerebri.] Treatment Plan: [Case will be discussed with [facility] and arrangements will be made for patient to be transferred back to their facility.] Disposition: [Transfer] Impression: [Post lumbar puncture headache] This note was generated with Cydan dictation software. It may contain incorrect words, spelling, and punctuation that were not noted in review of the chart prior to signing ED Disposition - Plan for ED Patient: Referrals: Care Physician,No Primary [Primary Care Provider] -
[2019-05-26 10:46] LABS: Absolute Lymphocyte Count 2.53 X10^3/uL (0.83-4.51); Basophil# 0.05 X10^3/uL; Basophil% 0.5 % (0-1); Eosinophil# 0.14 X10^3/uL; Eosinophils% 1.5 % (0-5); Hematocrit 44.3 % (37-47); Hemoglobin 14.9 g/dL (12.0-15.0); Lymphocyte # 2.53 X10^3/ul (4.0); Lymphocyte % 26.7 % (19-41); Mean Corp Hgb Conc 33.6 g/dL (32-36); Mean Corpuscular Hgb 28.2 pg (27.0-32.0); Mean Corpuscular Volume 83.7 fL (81-99); Mean Platelet Vol. 9.1 fl (6.2-12.0); Monocyte# 0.75 X10^3/uL; Monocyte% 7.9 % (0-10); NRBC Flagged by Analyzer 0 % (0-5); Neutrophil # 5.97 X10^3/uL (2.7-7.7); Neutrophil % 63.2 % (47-70); Platelet Count 285 K/mm3 (150-450); RBC Distribution Width SD 38.9 fl (35.1-43.9); Red Blood Count 5.29 M/mm3 (4.2-5.4); White Blood Count 9.5 K/mm3 (4.4-11.0)
[2019-05-26 11:01] LABS: Anion Gap 6 (5-15); BUN 22 mg/dL (7-18); BUN/Creat Ratio 21.2 RATIO (10-20); Calcium,Total 8.3 mg/dL (8.5-10.1); Chloride 117 mmol/L (98-107); Creatinine, Serum 1.04 mg/dL (0.55-1.02); EST Glomerular Filtration Rate 66 mL/min (>60); Est Glom Filt Rate - Afr Amer 79 mL/min (>60); Estimated Creatinine Clearance 73.37 ml/min; Glucose 83 mg/dL (74-106); Potassium 3.6 mmol/L (3.5-5.1); Sodium Level 145 mmol/L (136-145)
[2019-05-26] MEDS: 0.9% Normal Saline 1,000 ML 1000 ML IV (11:30)
[2019-05-26] MEDS: Morphine 4 MG/ML Syringe IV (11:30)
[2019-05-26 11:31] VITALS: RESP 18
[2019-05-26 11:35] VITALS: BP 136/85; PULSE 70; RESP 18; O2SAT 100
== END 2019-05-26 13:18 | disposition short-term general hospital (02) ==
PROVIDERS: Emergency Provider Emergency Medicine
DX: G97.1 Other reaction to spinal and lumbar puncture (principal); Y84.4 Aspiration of fluid as the cause of abnormal reaction of the patient, or of later complication, without mention of misadventure at the time of the procedure; G93.2 Benign intracranial hypertension
CPT/HCPCS: 80048; 85025; 96361; 96374; 99285; J7030; A4216

== ENCOUNTER 2019-06-13 17:44 | Emergency (ER) | payer SELFPAY ==
[2019-06-13 17:45] VITALS: BP 153/78; PULSE 73; RESP 18; TEMP 36.1; O2SAT 99; BMI 37.1
--- NOTE | 2019-06-13 18:32 | ED.DCSUM_ITS ---
- ER Visit Summary Date of Service: 06/13/19 Chief Complaint: UTI History of Present Illness: The patient is a 33 F with UTI symptoms including dysuria and frequency. They started yesterday. She took one Keflex yesterday and 1 today. The pain is progressing up to her left kidney region. No fevers. No other associated symptoms except for some nausea. She has a history of UTIs. Denies . Physical Examination: Afebrile and vital signs unremarkable. Patient alert and oriented. Left CVA tender to palpation. Left lower quadrant tender to palpation. No guarding or rebound. Skin appears normal. Test Results: Urinalysis, lab work pending. Emergency Department Course and Treatment: Patient treated with fluids, Toradol, Zofran while awaiting results. White count 16.2 and creatinine 1.14. Urinalysis shows blood and bacteria and 0-5 white cells. test was negative. Patient symptoms and findings are concerning for pyelonephritis. She was treated with Rocephin IV and will check a urine culture. I spoke with the patient, and I believe she is appropriate for outpatient care. Will prescribe pain medicine, nausea medicine, antibiotics. Follow-up with primary care. Sepsis precautions discussed. Return for any issues. Treatment Plan: As above Disposition: Discharge Impression: 1. Left side pyelonephritis This note was generated with Hostmonster dictation software. It may contain incorrect words, spelling, and punctuation that were not noted in review of the chart prior to signing ED Disposition - Plan for ED Patient: Referrals: Care Physician,No Primary [Primary Care Provider] -
[2019-06-13 18:51] LABS: Absolute Lymphocyte Count 1.92 X10^3/uL (0.83-4.51); Absolute Neutrophil Count 13.3 X10^3/uL (2.0-7.7); Basophil# 0.06 X10^3/uL; Basophil% 0.4 % (0-1); Eosinophil# 0.07 X10^3/uL; Eosinophils% 0.4 % (0-5); Hematocrit 40.2 % (37-47); Hemoglobin 13.3 g/dL (12.0-15.0); Lymphocyte # 1.92 X10^3/ul (4.0); Lymphocyte % 11.8 % (19-41); Mean Corp Hgb Conc 33.1 g/dL (32-36); Mean Corpuscular Hgb 27.8 pg (27.0-32.0); Mean Corpuscular Volume 83.9 fL (81-99); Mean Platelet Vol. 9.7 fl (6.2-12.0); Monocyte# 0.86 X10^3/uL; Monocyte% 5.3 % (0-10); NRBC Flagged by Analyzer 0 % (0-5); Neutrophil # 13.27 X10^3/uL (2.7-7.7); Neutrophil % 81.8 % (47-70); Platelet Count 280 K/mm3 (150-450); RBC Distribution Width CV 13.6 % (11.6-14.6); RBC Distribution Width SD 41.6 fl (35.1-43.9); Red Blood Count 4.79 M/mm3 (4.2-5.4); White Blood Count 16.2 K/mm3 (4.4-11.0)
[2019-06-13 18:54] LABS: Color, Urine Yellow (Yellow); Glucose, Dipstick Normal (Normal); Ketone-Dipstick 5 mg/dl (Negative); Leukocyte Esterase-Dipstick 25 /ul (Negative); Nitrite-Dipstick Negative (Negative); Occult Blood-Urine 150 /ul (Negative); Protein-Dipstick 30 mg/dl (Negative); Specific Gravity, Urine 1.025 (1.002-1.030); Urine Bilirubin Dipstick Negative (Negative); Urine Clarity Cloudy (Clear); Urine Urobilinogen Normal (Normal)
[2019-06-13 19:03] LABS: Internal QC Validated? YES +Cl - CLEAR BKGD; Pregnancy, Urine Negative Negative
[2019-06-13 19:06] LABS: Anion Gap 8 (5-15); BUN 16 mg/dL (7-18); Calcium,Total 8.4 mg/dL (8.5-10.1); Chloride 116 mmol/L (98-107); Creatinine, Serum 1.14 mg/dL (0.55-1.02); EST Glomerular Filtration Rate 59 mL/min (>60); Est Glom Filt Rate - Afr Amer 71 mL/min (>60); Estimated Creatinine Clearance 66.94 ml/min; Glucose 103 mg/dL (74-106); Potassium 3.7 mmol/L (3.5-5.1); Sodium Level 142 mmol/L (136-145)
[2019-06-13 19:07] LABS: Bacteria 2+ /hpf (None Seen); Calcium Oxalate Crystals Ur 4+ /hpf (<or=2+); Mucous, Urine 1+ /hpf (<or=2+); Red Blood Cells-Urine 5-10 SEEN /hpf (0-5); Squamous Epithelial Cells - UA 5-10 SEEN /hpf (5-10); White Blood Cells 0-5 SEEN /hpf (0-5)
[2019-06-13] MEDS: Ketorolac 30 MG/ML Syringe IV (19:11)
[2019-06-13] MEDS: Ondansetron 4 MG/2 ML Vial IV (19:11)
[2019-06-13] MEDS: 0.9% Normal Saline 1,000 ML 1000 ML IV (19:11)
[2019-06-13 19:17] VITALS: BP 121/80; PULSE 72; RESP 16; O2SAT 98
--- NOTE | 2019-06-13 20:22 | ED.DEP ---
ED Disposition - Plan for ED Patient: Instructions: PYELONEPHRITIS, Female (Adult) Prescriptions: Smz/Tmp Ds [Bactrim Ds] 1 tab PO BID #28 tab Prescription Printed Naproxen [Naprosyn] 500 mg PO BID PRN #20 tab Prescription Printed Ondansetron [Zofran Odt] 4 mg PO Q8H PRN PRN #10 tab PRN Reason: Nausea Prescription Printed Referrals: Nancy Mayo [NON-STAFF] -
[2019-06-13] MEDS: Ceftriaxone 1 GM/50 ML BAG IV (20:35)
[2019-06-13 21:37] VITALS: BP 145/80; PULSE 73; RESP 16; O2SAT 97
== END 2019-06-13 21:38 | disposition home or self-care (01) ==
LOC: ED 18:35
PROVIDERS: Emergency Provider Emergency Medicine
DX: N12 Tubulo-interstitial nephritis, not specified as acute or chronic (principal); R11.0 Nausea; Z79.899 Other long term (current) drug therapy; Z87.440 Personal history of urinary (tract) infections
CPT/HCPCS: 80048; 81001; 81025; 85025; 87086; 87088; 96361; 96365; 96375; 99284; J7030; J7050; A4216; J2405

== ENCOUNTER 2019-06-22 13:17 | Emergency (ER) | payer SELFPAY ==
[2019-06-22 13:19] VITALS: BP 135/80; PULSE 78; RESP 14; TEMP 36.7; O2SAT 99; BMI 37.7
[2019-06-22 13:30] VITALS: BP 135/80; PULSE 78; RESP 14; TEMP 36.7; O2SAT 99
--- NOTE | 2019-06-22 13:31 | ED.VISSUMM ---
- ER Visit Summary Date of Service: 06/22/19 Chief Complaint: Bilateral flank pain History of Present Illness: The patient is a 33 F number on 06/13/2019 pyelonephritis and was placed on Bactrim. She is currently still on the Bactrim. Is having more flank pain bilaterally. Denies nausea, vomiting diarrhea. Chills. She was seen in this emergency from work-up for mild 9 days ago. Physical Examination: Well-appearing young female. Vital signs are stable febrile. He does not any distress. H EENT exam unremarkable. Moist his memories. Neck nontender no lymphadenopathy. Lungs clear to auscultation bilaterally. Heart regular rhythm no murmur. Abdomen soft nontender normal bowel sounds no peritoneal signs. Moving all 4 extremities. Neurovascular intact. Back exam she complains of flank pain that is not reproducible. There is no ecchymosis or bruising. No signs of trauma. No spine tenderness. No redness or warmth. Neurologically awake alert with no focal motor strength. Test Results: CBC shows no acute abnormality. White count was 9 and was previously 16. Chemistries unremarkable normal gap and creatinine 1.1. UA showed positive nitrites no whites, no red cells 10-25 0 cells consistent with contamination and 3+ bacteria. A culture was resent. The last culture was negative. Emergency Department Course and Treatment: I reviewed the patient's last evaluation at that time for an elevated white count. Normal kidney function chemistries. UA with questionable or urine culture turned out to be negative. With limited growth. Patient was offered but did not want any medication for pain. Repeat exam at 1415 p.m. she is doing well. We went over test results. She will continue biotics. Tylenol Motrin for pain. Follow-up with primary care physician. Treatment Plan: Tylenol Motrin for pain. Plenty of fluids. Finish her antibiotic. Follow-up. Disposition: Discharge Impression: Bilateral flank pain of uncertain etiology Being treated for UTI This note was generated with NanoD[employer]ation software. It may contain incorrect words, spelling, and punctuation that were not noted in review of the chart prior to signing ED Disposition - Plan for ED Patient: Referrals: Care Physician,No Primary [NON-STAFF] -
[2019-06-22 13:38] LABS: Mucous, Urine 0 SEEN /hpf (<or=2+); Red Blood Cells-Urine 0 SEEN /hpf (0-5)
[2019-06-22 13:40] LABS: Glucose, Dipstick Normal (Normal); Ketone-Dipstick Negative (Negative); Leukocyte Esterase-Dipstick Negative /ul (Negative); Nitrite-Dipstick Positive (Negative); Occult Blood-Urine Negative /ul (Negative); Protein-Dipstick Negative (Negative); Specific Gravity, Urine 1.025 (1.002-1.030); Urine Clarity Sl. Cloudy (Clear); Urine Urobilinogen 1 mg/dl (Normal)
[2019-06-22 13:42] LABS: Color, Urine DARK YELLOW (Yellow); Urine Bilirubin Dipstick 1 mg/dL (Negative)
[2019-06-22 13:47] LABS: Bacteria 3+ /hpf (None Seen); Squamous Epithelial Cells - UA 10-25 SEEN /hpf (5-10); White Blood Cells 0-5 SEEN /hpf (0-5)
[2019-06-22 13:49] LABS: Absolute Lymphocyte Count 2.83 X10^3/uL (0.83-4.51); Absolute Neutrophil Count 5.4 X10^3/uL (2.0-7.7); Basophil# 0.05 X10^3/uL; Basophil% 0.6 % (0-1); Eosinophils% 1.1 % (0-5); Hematocrit 43.5 % (37-47); Hemoglobin 14.6 g/dL (12.0-15.0); Lymphocyte # 2.83 X10^3/ul (4.0); Lymphocyte % 31.3 % (19-41); Mean Corp Hgb Conc 33.6 g/dL (32-36); Mean Corpuscular Volume 83.3 fL (81-99); Mean Platelet Vol. 9.3 fl (6.2-12.0); Monocyte# 0.61 X10^3/uL; Monocyte% 6.7 % (0-10); NRBC Flagged by Analyzer 0 % (0-5); Neutrophil # 5.44 X10^3/uL (2.7-7.7); Neutrophil % 60.1 % (47-70); Platelet Count 292 K/mm3 (150-450); RBC Distribution Width CV 13.2 % (11.6-14.6); RBC Distribution Width SD 40.7 fl (35.1-43.9); Red Blood Count 5.22 M/mm3 (4.2-5.4); White Blood Count 9.1 K/mm3 (4.4-11.0)
[2019-06-22 14:03] LABS: Anion Gap 7 (5-15); BUN 13 mg/dL (7-18); BUN/Creat Ratio 11.8 RATIO (10-20); Calcium,Total 8.7 mg/dL (8.5-10.1); Chloride 110 mmol/L (98-107); EST Glomerular Filtration Rate 61 mL/min (>60); Est Glom Filt Rate - Afr Amer 74 mL/min (>60); Estimated Creatinine Clearance 69.37 ml/min; Glucose 113 mg/dL (74-106); Potassium 4.2 mmol/L (3.5-5.1); Sodium Level 140 mmol/L (136-145)
--- NOTE | 2019-06-22 14:18 | ED.DEP ---
ED Disposition - Plan for ED Patient: Disposition: Home or Assisted Living Instructions: FLANK PAIN, Uncertain Cause Referrals: Care Physician,No Primary [NON-STAFF] - 3-5 Days Additional Instructions: Follow-up with your doctor. Finish your current antibiotic. Tylenol and/or Motrin for pain.
[2019-06-22 14:38] VITALS: RESP 16; TEMP 36.7
--- NOTE | 2019-06-22 14:39 | ED.RN ---
REVIEWED D/C INSTRUCTIONS, FOLLOW UP CARE, AND S/S THAT WOULD WARRANT A RETURN TO THE ED WITH PT. PT VERBALIZED AN UNDERSTANDING AND DENIES FURTHER QUESTIONS FOR THIS RN. PT SKIN P/W/D, RESP EVEN AND UNLABORED, PT A&O X 3, NO DISTRESS NOTED. PT AMBULATED OUT OF ED, GAIT STEADY.
== END 2019-06-22 14:41 | disposition home or self-care (01) ==
PROVIDERS: Emergency Provider Emergency Medicine
DX: R10.9 Unspecified abdominal pain (principal); N39.0 Urinary tract infection, site not specified
CPT/HCPCS: 80048; 81001; 85025; 87086; 87088; 99283; A4216

== ENCOUNTER 2020-07-25 19:49 | Emergency (ER) | payer MEDICAID, SELFPAY ==
[2020-07-25 19:49] VITALS: BP 180/112; PULSE 91; RESP 16; TEMP 36.6; O2SAT 98; BMI 42.1
--- NOTE | 2020-07-25 20:10 | CT_ITS ---
STUDY: CT BRAIN WITHOUT CONTRAST REASON FOR EXAM: Female, 34 years old. Headache RADIATION DOSAGE (If Supplied By Facility): CTDIvol = ( 44.99 ) mGy, DLP = ( 796.11 ) mGycm TECHNIQUE: Transaxial CT imaging of the brain was performed without administration of intravenous contrast material. Individualized dose optimization techniques were used for this CT. COMPARISON: 03/24/16 FINDINGS: There is no acute bleed or infarct. There are normal white matter tracts. The ventricles are normal in configuration. There is no hydrocephalus. The visualized paranasal sinuses are clear. The mastoid air cells are well aerated. There is no skull fracture. CT/Brain/Head without Contrast IMPRESSION: No acute intracranial abnormality. Electronically Signed: Temo Hoff, at 21:31 EST Tel , Service support ,
--- NOTE | 2020-07-25 20:10 | ED.VIS.GEN ---
History of Present Illness Chief Complaint: Headache Informant: Patient Onset: Today Current Severity: Moderate Maximum Severity: Moderate Narrative: Patient present secondary to headache. She states she was diagnosed with pseudotumor cerebri a year ago. She was taken off of her medications in January. She has been having intermittent headaches but states today it seemed to be worse. She states the pain is worse behind her eyes, across her forehead, and at her occiput. She does have nausea and light sensitivity. She denies URI symptoms or recent head injury. She did take 600 mg of ibuprofen just prior to arrival. - Past Medical History (1) Anxiety Status: Chronic (2) Depression Status: Chronic (3) Kidney stones Status: Resolved (4) Ovarian cyst Status: Resolved Past Medical History - Allergies and Home Meds Allergies/Adverse Reactions: Allergies TAPE Allergy (Uncoded 06/22/19 13:19) Rash Primary Care Physician: NOT,DEFINED [NON-STAFF] - Prior records reviewed: Yes Smoking Status: Never smoker Review of Systems General: Denies: Chills, Fever Eyes: Denies: Visual changes - bilaterally ENT: Denies: Bilateral ear pain Cardiovascular: Denies: Chest pain Respiratory: Denies: Dyspnea, Cough Gastrointestinal: Reports: Nausea. Denies: Abdominal pain, Vomiting Genitourinary: Denies: Dysuria Musculoskeletal: Denies: Swelling, Extremity Pain Skin: Denies: Rash Neurological: Reports: Headache Hematologic: Denies: Easy bruising, Easy bleeding Allergy: Denies: Uticaria Physical Exam Vital Signs/Narrative: Vital Signs Temp Pulse Resp BP Pulse Ox 07/25/20 19:49 97.8 F 91 16 180/112 H 98 Inital Vital Signs reviewed: Yes General: Well nourished, Well developed Head: Normocephalic ENT: Moist mucous membranes Neck: Supple Cardiovascular: Regular rate, Regular rhythm Respiratory: No distress, CTA bilaterally Abdomen: Soft, Nontender Extremities: Nontender Skin: Normal color Neurological: Alert, Oriented x3, Normal Strength, Normal Sensation Psychological: Normal affect Diagnostic/Tx/Re-eval Impressions Brain CT 07/25/20 20:10 IMPRESSION: No acute intracranial abnormality. Electronically Signed: Temo Hoff, at 21:31 EST Tel , Service support , 07/25/20 20:10 Brain/Head without Contrast [CT] Stat - Medical Decision Making Patient was given Reglan and Benadryl along with IV fluids. She had taken ibuprofen just prior to arrival. Head CT was unremarkable per my review as well as radiologist. On repeat evaluation headache is significantly improved. She will be discharged home at this time. ED Disposition - Plan for ED Patient: Disposition: Home or Assisted Living Diagnosis: Cephalgia Instructions: ED Headache Unspecified Referrals: Isi Pierce MD [STAFF PHYSICIAN] - As Needed
[2020-07-25] MEDS: DiphenhydrAMINE 50 MG/ML Syringe 25 MG IV (20:31)
[2020-07-25] MEDS: Metoclopramide 10 MG/2 ML Vial IV (20:31)
[2020-07-25] MEDS: 0.9% Normal Saline 1,000 ML 999 ML IV (20:32)
[2020-07-25 21:44] VITALS: BP 144/87; PULSE 75; RESP 16; O2SAT 97
== END 2020-07-25 21:46 | disposition home or self-care (01) ==
PROVIDERS: Emergency Provider Emergency Medicine
DX: R51.9 Headache, unspecified (principal); R11.0 Nausea
CPT/HCPCS: 70450; 96361; 96374; 96375; 99284; J7030; A4216

== ENCOUNTER 2020-07-27 10:37 | Emergency (ER) | payer MEDICAID, SELFPAY ==
[2020-07-27 10:39] VITALS: BP 162/117; PULSE 80; RESP 20; TEMP 36.4; O2SAT 100; BMI 39.5
--- NOTE | 2020-07-27 11:17 | ED.DCSUM_ITS ---
History of Present Illness Chief Complaint: Weakness Detail of Chief Complaint: Headache, vision black, scintillating scotoma, nausea Informant: Patient Onset: Today Context: Sudden Onset Timing: Continuous Quality: Head pain Location: Right side Current Severity: Mild Maximum Severity: Moderate Worsened by: Nothing Relieved by: Nothing Associated Symptoms: Scintillating scotoma, forehead and bilateral hand numbness Narrative: Patient is a 34-year-old woman with history of pseudotumor cerebri who presents with headache associated with forehead numbness and right and left hand numbness. She also reported scintillating scotoma that was followed by nausea and loss of vision both eyes. She did not have loss of consciousness. She denied trouble with speech or swallowing. She denied cardiac or respiratory symptoms. She denied vomiting or diarrhea. She denies urologic symptoms. She presently denies numbness of her forehead or hands. She is scheduled to see club licensee for ocular exam. She states her left pupil is dilated compared to right because of intracranial hyper tension, pseudotumor cerebri. She states she was not a candidate for shunt. Prior similar symptoms: No Recent Illness/Hospitalization: Yes - Past Medical History (1) Pseudotumor cerebri Status: Acute (2) Anxiety Status: Chronic (3) Depression Status: Chronic (4) Ovarian cyst Status: Resolved (5) History of migraine headaches Status: Acute Past Medical History - Allergies and Home Meds Allergies/Adverse Reactions: Allergies TAPE Allergy (Uncoded 07/27/20 10:41) Rash Primary Care Physician: Care Physician,No Primary [Primary Care Provider] - Prior records reviewed: Yes Lives: With Family Smoking Status: Never smoker Alcohol: None Drugs: None Review of Systems General: Reports: Malaise. Denies: Chills, Fever, Subjective, Sweats, Weight loss Eyes: Reports: Visual changes - bilaterally. Denies: Diplopia ENT: Denies: Bilateral ear pain, Rhinorrhea, Sore throat Cardiovascular: Denies: Chest pain, Palpitations Respiratory: Denies: Dyspnea, Cough, Sputum, Dyspnea on exertion Gastrointestinal: Reports: Nausea. Denies: Abdominal pain, Vomiting, Diarrhea Genitourinary: Denies: Dysuria, Hematuria, Frequency Musculoskeletal: Denies: Myalgias, Arthralgias, Neck pain, Back pain, Swelling, Extremity Pain Skin: Denies: Rash, Wounds Neurological: Reports: Headache. Denies: Weakness, Parasthesia Psych: Reports: Depression Endocrine: Denies: Polyuria, Polydipsia Hematologic: Denies: Easy bruising, Easy bleeding Physical Exam Vital Signs/Narrative: Vital Signs Temp Pulse Resp BP Pulse Ox 07/27/20 10:39 97.6 F L 80 20 H 162/117 H 100 Inital Vital Signs reviewed: Yes General: Well nourished, Well developed, Obese Head: Normocephalic, Atraumatic Eyes: EOMI, - - There is fuzziness of the optic disc on the left. Cup-to-disc ratio appears normal. There is no changes due to hypertension noted.. Negative for: Perrl, Pale conjunctiva, Scleral icterus ENT: Moist mucous membranes, No rhinorrhea, TM's clear - Tubes noted bilaterally. Neck: Supple, Nontender, No lymphadenopathy, No JVD Cardiovascular: Regular rate, Regular rhythm, No murmurs, Normal S1, Normal S2 Respiratory: No distress, CTA bilaterally, Chest nontender Abdomen: Soft, Nontender, Nondistended, Normal bowel sounds Rectal: Deferred Back: Nontender, Normal Inspection Extremities: Nontender, No edema Skin: Normal color, No rash Neurological: Alert, Oriented x3, Cranial nerves II-XII grossly intact, Normal Strength, Normal Sensation, Normal DTR - No clonus or Babinski sign., Normal Gait Psychological: Depressed Diagnostic/Tx/Re-eval Laboratory Results 07/27/20 07/27/20 11:30 11:30 WBC 10.8 RBC 5.17 Hgb 14.3 Hct 42.5 MCV 82.2 MCH 27.7 MCHC 33.6 RDW Std Deviation 38.3 RDW Coeff of Theresa 12.8 Plt Count 281 MPV 9.5 Immature Gran % (Auto) 0.600 Neut % (Auto) 70.0 Lymph % (Auto) 22.2 [place] % (Auto) 5.7 Eos % (Auto) 0.9 Baso % (Auto) 0.6 Absolute Neuts (auto) 7.6 Absolute Lymphs (auto) 2.41 Nucleated RBC % 0 Sodium 140 Potassium 4.2 Chloride 110 H Carbon Dioxide 24.0 Anion Gap 6 BUN 12 Creatinine 0.76 Estim Creat Clear Calc 99.48 Est GFR (MDRD) Af Amer 112 Est GFR (MDRD) Non-Af 93 BUN/Creatinine Ratio 15.7 Glucose 93 Calcium 8.8 - Medical Decision Making Patient's work-up is unremarkable. With her having monocular symptoms with headache scintillating scotoma suspect patient had a visual/ocular migraine. Since her symptoms have resolved we will discharge to home. ED Disposition - Plan for ED Patient: Disposition: Home or Assisted Living Diagnosis: Ocular migraine, Pseudotumor cerebri Instructions: ED, Migraine (Classical) Referrals: Care Physician,No Primary [Primary Care Provider] - As Needed
[2020-07-27 11:55] LABS: Absolute Lymphocyte Count 2.41 X10^3/uL (0.83-4.51); Absolute Neutrophil Count 7.6 X10^3/uL (2.0-7.7); Basophil# 0.06 X10^3/uL; Basophil% 0.6 % (0-1); Eosinophils% 0.9 % (0-5); Hematocrit 42.5 % (37-47); Hemoglobin 14.3 g/dL (12.0-15.0); Lymphocyte # 2.41 X10^3/ul (4.0); Lymphocyte % 22.2 % (19-41); Mean Corp Hgb Conc 33.6 g/dL (32-36); Mean Corpuscular Hgb 27.7 pg (27.0-32.0); Mean Corpuscular Volume 82.2 fL (81-99); Mean Platelet Vol. 9.5 fl (6.2-12.0); Monocyte# 0.62 X10^3/uL; Monocyte% 5.7 % (0-10); NRBC Flagged by Analyzer 0 % (0-5); Neutrophil # 7.58 X10^3/uL (2.7-7.7); Platelet Count 281 K/mm3 (150-450); RBC Distribution Width CV 12.8 % (11.6-14.6); RBC Distribution Width SD 38.3 fl (35.1-43.9); Red Blood Count 5.17 M/mm3 (4.2-5.4); White Blood Count 10.8 K/mm3 (4.4-11.0)
[2020-07-27 11:56] LABS: Anion Gap 6 (5-15); BUN 12 mg/dL (7-18); BUN/Creat Ratio 15.7 RATIO (10-20); Calcium,Total 8.8 mg/dL (8.5-10.1); Chloride 110 mmol/L (98-107); Creatinine, Serum 0.76 mg/dL (0.55-1.02); EST Glomerular Filtration Rate 93 mL/min (>60); Est Glom Filt Rate - Afr Amer 112 mL/min (>60); Estimated Creatinine Clearance 99.48 ml/min; Glucose 93 mg/dL (74-106); Potassium 4.2 mmol/L (3.5-5.1); Sodium Level 140 mmol/L (136-145)
== END 2020-07-27 15:15 | disposition home or self-care (01) ==
PROVIDERS: Emergency Provider Emergency Medicine
DX: G43.109 Migraine with aura, not intractable, without status migrainosus (principal); H53.123 Transient visual loss, bilateral; G93.2 Benign intracranial hypertension; E66.9 Obesity, unspecified
CPT/HCPCS: 80048; 85025; 99283

== ENCOUNTER 2020-10-24 04:33 | Emergency (ER) | payer MEDICAID, SELFPAY ==
[2020-10-24 04:36] VITALS: BP 157/93; PULSE 86; RESP 16; TEMP 36.6; O2SAT 96; BMI 41.6
--- NOTE | 2020-10-24 04:39 | CT_ITS ---
STUDY: CT ABDOMEN AND PELVIS WITHOUT CONTRAST REASON FOR EXAM: Female, 34 years old. RT FLANK PAIN SINCE 3A, NAUSEA. H/O [place]. RADIATION DOSAGE (If Supplied By Facility): CTDIvol = ( 21.54 ) mGy, DLP = ( 1146.19 ) mGycm TECHNIQUE: Transaxial images were obtained from the dome of the diaphragm to the symphysis pubis without oral contrast, and without intravenous contrast. Sagittal and coronal images were reconstructed. Individualized dose optimization techniques were used for this CT. COMPARISON: CT abdomen from 07/18/2018 FINDINGS: The visualized lung bases are unremarkable. The visualized portions of the heart are within normal limits. Normal liver. There are surgical clips in the gallbladder fossa consistent with a prior cholecystectomy. Normal spleen. Normal pancreas. Normal bilateral adrenal glands. Probable tiny 1 to 2 mm calculus in the right ureter at the right ureteropelvic junction, series 2 image 83. No hydronephrosis. Normal left kidney. Normal visualized stomach. Normal small intestine. Normal colon. The appendix is visualized and appears normal. Normal abdominal aorta. Normal inferior vena cava. Normal retroperitoneum. Normal urinary bladder. There is a left adnexal cyst measuring approximately 3.5 cm in diameter. Normal abdominal wall. Normal osseous structures. CT/Abdomen/Pelvis without Cont IMPRESSION: Probable Tiny 1 to 2 mm calculus within the proximal right ureter at the ureteropelvic junction. No significant hydronephrosis or hydroureter. Electronically Signed: Luc Kong MD at 5:46 EST Tel , Service support ,
[2020-10-24] MEDS: Ondansetron 4 MG/2 ML Vial IV (04:50)
[2020-10-24 04:55] LABS: Mucous, Urine 0 SEEN /hpf (<or=2+)
[2020-10-24 04:56] LABS: Absolute Lymphocyte Count 3.52 X10^3/uL (0.83-4.51); Absolute Neutrophil Count 7.7 X10^3/uL (2.0-7.7); Basophil# 0.04 X10^3/uL; Basophil% 0.3 % (0-1); Eosinophil# 0.18 X10^3/uL; Eosinophils% 1.5 % (0-5); Hematocrit 41.9 % (37-47); Hemoglobin 13.9 g/dL (12.0-15.0); Lymphocyte # 3.52 X10^3/ul (4.0); Lymphocyte % 28.5 % (19-41); Mean Corp Hgb Conc 33.2 g/dL (32-36); Mean Corpuscular Hgb 27.5 pg (27.0-32.0); Mean Corpuscular Volume 82.8 fL (81-99); Mean Platelet Vol. 9.6 fl (6.2-12.0); Monocyte# 0.87 X10^3/uL; NRBC Flagged by Analyzer 0 % (0-5); Neutrophil # 7.73 X10^3/uL (2.7-7.7); Neutrophil % 62.5 % (47-70); Platelet Count 278 K/mm3 (150-450); RBC Distribution Width CV 13.6 % (11.6-14.6); RBC Distribution Width SD 41.1 fl (35.1-43.9); Red Blood Count 5.06 M/mm3 (4.2-5.4); White Blood Count 12.4 K/mm3 (4.4-11.0)
--- NOTE | 2020-10-24 04:56 | ED.DCSUM_ITS ---
History of Present Illness Chief Complaint: Flank Pain Narrative: Patient presenting for evaluation secondary to flank pain. Patient has a underlying history of a kidney stone in the distant past. She reports that about 3 AM she woke up and had a sudden onset of right-sided flank pain radiating down into her right groin. This was associated with some nausea but no vomiting. She denies any dysuria or hematuria. She denies any diarrhea. She does have past history of and gallbladder surgery. Patient also states that she has not had a menstrual cycle for about 3 months and is unsure if she is . She denies any objective history of fevers. Review of systems otherwise negative. Past Medical History - Allergies and Home Meds Allergies/Adverse Reactions: Allergies TAPE Allergy (Uncoded 10/24/20 04:35) Rash Primary Care Physician: Care Physician,No Primary [Primary Care Provider] - Prior records reviewed: Yes Past Medical History: - - Past history of kidney stones Surgical History: cholecystectomy Smoking Status: Never smoker Alcohol: None Drugs: None Review of Systems All systems negative except as indicated General: Denies: Chills, Fever, Sweats Eyes: Denies: Visual changes - bilaterally, Diplopia ENT: Denies: Rhinorrhea, Sore throat Cardiovascular: Denies: Chest pain, Palpitations Respiratory: Denies: Dyspnea, Cough, Dyspnea on exertion Gastrointestinal: Reports: Abdominal pain, Nausea Genitourinary: Denies: Dysuria, Hematuria, Frequency Musculoskeletal: Reports: Back pain Skin: Denies: Rash, Wounds Neurological: Denies: Headache, Weakness, Numbness Physical Exam Vital Signs/Narrative: Vital Signs Temp Pulse Resp BP Pulse Ox 10/24/20 04:36 98 F 86 16 157/93 H 96 Inital Vital Signs reviewed: Yes General: Well nourished, Well developed, No Acute Distress Head: Normocephalic, Atraumatic Eyes: Perrl, EOMI ENT: Moist mucous membranes, No rhinorrhea Neck: Supple, Nontender Cardiovascular: Regular rate, Regular rhythm, No murmurs Respiratory: No distress, CTA bilaterally, Chest nontender Abdomen: Soft, Nondistended, Normal bowel sounds, Tender - Minimal suprapubic tenderness and right CVA tenderness. No evidence of overlying vesicular rash. No guarding or rebound. Back: Nontender, Normal Inspection Extremities: Nontender, No edema Skin: Normal color, No rash Neurological: Alert, Oriented x3, Cranial nerves II-XII grossly intact, Normal Strength, Normal Sensation Psychological: Normal affect, Normal Mood Diagnostic/Tx/Re-eval Clinical Impression(s) from Imaging Studies Abdomen/Pelvis CT 10/24/20 04:39 IMPRESSION: Probable Tiny 1 to 2 mm calculus within the proximal right ureter at the ureteropelvic junction. No significant hydronephrosis or hydroureter. Electronically Signed: Luc Kong MD at 5:46 EST Tel , Service support , Laboratory Data 10/24/20 10/24/20 10/24/20 04:40 04:45 04:45 WBC 12.4 H RBC 5.06 Hgb 13.9 Hct 41.9 MCV 82.8 MCH 27.5 MCHC 33.2 RDW Std Deviation 41.1 RDW Coeff of Theresa 13.6 Plt Count 278 MPV 9.6 Immature Gran % (Auto) 0.200 Neut % (Auto) 62.5 Lymph % (Auto) 28.5 [place] % (Auto) 7.0 Eos % (Auto) 1.5 Baso % (Auto) 0.3 Absolute Neuts (auto) 7.7 Absolute Lymphs (auto) 3.52 Nucleated RBC % 0 Sodium 139 Potassium 3.6 Chloride 110 H Carbon Dioxide 21.0 Anion Gap 8 BUN 19 H Creatinine 1.00 Estim Creat Clear Calc 75.61 Est GFR (MDRD) Af Amer 82 Est GFR (MDRD) Non-Af 68 BUN/Creatinine Ratio 19.0 Glucose 108 H Calcium 8.5 Urine Color Yellow Urine Clarity Clear Urine pH 7.0 Ur Specific [place] 1.010 Urine Protein 15 H Urine Glucose (UA) Normal Urine Ketones Negative Urine Occult Blood 250 H Urine Nitrite Negative Urine Bilirubin Negative Urine Urobilinogen Normal Ur Leukocyte Esterase Negative Urine RBC > 100 SEEN Urine WBC 0-5 SEEN Ur Squamous Epith Cells 0-5 SEEN Urine Bacteria 1+ Urine Mucus 0 SEEN Urine Test Negative - Medical Decision Making Patient presented secondary to right-sided flank pain. IV was established pa tient was given Zofran and Toradol she did have improvement of her pain. Work- up shows the patient to have modest leukocytosis of 12, normal renal function and electrolytes. Urinalysis demonstrated the patient to have a significant amount of hematuria, test was negative. CT abdomen and pelvis was performed which shows a 1 to 2 mm proximal right sided ureteral stone. Repeat evaluation at the patient did show improvement, but throughout her emergency department stay she had some reemergence of her pain she was given a subsequent dose of Toradol. This point the patient does not have any evidence of renal insufficiency infection or intractable pain. I believe that she can be treated as an outpatient. She will be sent home with Flomax and Toradol and follow-up with urology. She was educated on signs and symptoms for which to return. ED Disposition - Plan for ED Patient: Disposition: Home or Assisted Living Diagnosis: Urolithiasis Instructions: ED Kidney Stone w/ Colic Prescriptions: Tamsulosin HCl [Flomax] 0.4 mg PO DAILY #7 cap Prescription Printed Ketorolac [Toradol] 10 mg PO Q6H #20 tab Prescription Printed Referrals: Shabbir Perkins MD [STAFF PHYSICIAN] - 3-5 Days
[2020-10-24 04:58] LABS: Color, Urine Yellow (Yellow); Glucose, Dipstick Normal (Normal); Ketone-Dipstick Negative (Negative); Leukocyte Esterase-Dipstick Negative /ul (Negative); Nitrite-Dipstick Negative (Negative); Occult Blood-Urine 250 /ul (Negative); Protein-Dipstick 15 mg/dl (Negative); Urine Bilirubin Dipstick Negative (Negative); Urine Clarity Clear (Clear); Urine Urobilinogen Normal (Normal)
[2020-10-24 05:00] LABS: Internal QC Validated? YES +Cl - CLEAR BKGD; Pregnancy, Urine Negative Negative
[2020-10-24 05:09] LABS: Bacteria 1+ /hpf (None Seen); Red Blood Cells-Urine > 100 SEEN /hpf (0-5); Squamous Epithelial Cells - UA 0-5 SEEN /hpf (5-10); White Blood Cells 0-5 SEEN /hpf (0-5)
[2020-10-24 05:11] LABS: Anion Gap 8 (5-15); BUN 19 mg/dL (7-18); Calcium,Total 8.5 mg/dL (8.5-10.1); Chloride 110 mmol/L (98-107); EST Glomerular Filtration Rate 68 mL/min (>60); Est Glom Filt Rate - Afr Amer 82 mL/min (>60); Estimated Creatinine Clearance 75.61 ml/min; Glucose 108 mg/dL (74-106); Potassium 3.6 mmol/L (3.5-5.1); Sodium Level 139 mmol/L (136-145)
[2020-10-24] MEDS: Ketorolac 15 MG/ML Vial IV ×2 (05:13→06:06)
[2020-10-24] MEDS: Tamsulosin HCl 0.4 MG Capsule PO (06:06)
== END 2020-10-24 06:11 | disposition home or self-care (01) ==
PROVIDERS: Emergency Provider Emergency Medicine
DX: N20.1 Calculus of ureter (principal); Z79.899 Other long term (current) drug therapy; Z87.442 Personal history of urinary calculi; Z90.49 Acquired absence of other specified parts of digestive tract
CPT/HCPCS: 74176; 80048; 81001; 81025; 85025; 96374; 96375; 96376; 99283; A4216; J2405

== ENCOUNTER 2020-12-13 19:04 | Emergency (ER) | payer MEDICAID, SELFPAY ==
[2020-12-13 19:07] VITALS: BP 160/109; PULSE 114; RESP 18; TEMP 36.5; O2SAT 100; BMI 40.3
--- NOTE | 2020-12-13 19:26 | ED.DCSUM_ITS ---
History of Present Illness Chief Complaint: Abd Pain Informant: Patient Narrative: 35-year-old female presenting with pelvic pain which she states is bilateral in the lower pelvis and goes all the way across. She denies any flank pain. She does have nausea associated with it. She states when she stands up it hurts. She does complain of dysuria which started last evening. Patient is not had fever or chills. Patient has history of kidney stones and ovarian cysts. She states this does not feel like either. She states she took ibuprofen and a leftover Toradol at home today however she got no relief. Patient is unsure if she could be . She states that she is A0. Her last menstrual period was sometime early in October. She does state that a few weeks ago she was having sexual intercourse with her and a small amount of mucus discharge came out. He does not describe any bleeding. - Past Medical History (1) History of migraine headaches Status: Chronic (2) Pseudotumor cerebri Status: Chronic (3) Anxiety Status: Chronic (4) Depression Status: Chronic (5) Kidney stones Status: Resolved (6) Ovarian cyst Status: Resolved Past Medical History - Allergies and Home Meds Allergies/Adverse Reactions: Allergies TAPE Allergy (Uncoded 12/13/20 19:06) Rash Primary Care Physician: Care Physician,No Primary [Primary Care Provider] - Prior records reviewed: Yes Past Medical History: - - Reviewed in problem list Surgical History: cholecystectomy Lives: Spouse/ Significant Other Smoking Status: Never smoker Alcohol: None Drugs: None Review of Systems General: Denies: Chills, Fever, Sweats Eyes: Denies: Visual changes - bilaterally, Diplopia Cardiovascular: Denies: Chest pain, Palpitations Respiratory: Denies: Dyspnea, Cough, Dyspnea on exertion Gastrointestinal: Reports: Abdominal pain - Lateral pelvic pain, Nausea. Denies: Diarrhea, Constipation Genitourinary: Reports: Dysuria. Denies: Hematuria, Frequency Musculoskeletal: Denies: Back pain, Extremity Pain Skin: Denies: Rash, Wounds Neurological: Denies: Headache, Weakness, Numbness Psych: Denies: Depression, Anxiety, Suicidal thoughts, Suicidal ideations, -, - Physical Exam Vital Signs/Narrative: Vital Signs Temp Pulse Resp BP Pulse Ox 12/13/20 19:07 97.7 F L 114 H 18 160/109 H 100 General: Well nourished, Well developed, No Acute Distress Head: Normocephalic, Atraumatic Eyes: Perrl, EOMI ENT: Moist mucous membranes, No rhinorrhea Cardiovascular: Regular rate, Regular rhythm, No murmurs Respiratory: No distress, CTA bilaterally, Chest nontender Back: Nontender, Normal Inspection. Negative for: CVA tenderness Skin: Normal color, No rash Neurological: Alert, Oriented x3, Cranial nerves II-XII grossly intact, Normal Strength, Normal Sensation Psychological: Normal affect, Normal Mood Diagnostic/Tx/Re-eval Clinical Impression(s) from Imaging Studies Obstetrics Ultrasound 12/13/20 19:31 IMPRESSION: Fluid within the endometrium in an elongated diffuse pattern with no distinct intrauterine . These findings may be associated with the missed , in progress with ectopic not entirely excluded. Follow-up recommended with serial hCG measurements and short interval ultrasound along with INSTRUMENT ADJUSTER consultation. Multiple right-sided ovarian cysts, largest measuring 3.0 x 2.3 x 2.5 cm. Electronically Signed: Salma Brannon MD at 21:47 EDT , Service support , Laboratory Data 12/13/20 12/13/20 12/13/20 19:16 19:45 19:45 WBC 12.0 H RBC 5.19 Hgb 14.1 Hct 43.1 MCV 83.0 MCH 27.2 MCHC 32.7 RDW Std Deviation 40.3 RDW Coeff of Theresa 13.2 Plt Count 295 MPV 9.6 Immature Gran % (Auto) 0.300 Neut % (Auto) 63.1 Lymph % (Auto) 28.2 [place] % (Auto) 6.5 Eos % (Auto) 1.4 Baso % (Auto) 0.5 Absolute Neuts (auto) 7.5 Absolute Lymphs (auto) 3.37 Nucleated RBC % 0 Sodium 138 Potassium 3.4 L Chloride 112 H Carbon Dioxide 21.0 Anion Gap 5 BUN 15 Creatinine 0.84 Estim Creat Clear Calc 89.18 Est GFR (MDRD) Af Amer 100 Est GFR (MDRD) Non-Af 83 BUN/Creatinine Ratio 17.8 Glucose 111 H Calcium 8.7 HCG, Quant Urine Color Yellow Urine Clarity Turbid Urine pH 5.0 Ur Specific [place] 1.025 Urine Protein 30 H Urine Glucose (UA) Normal Urine Ketones 5 H Urine Occult Blood Negative Urine Nitrite Negative Urine Bilirubin Negative Urine Urobilinogen Normal Ur Leukocyte Esterase 25 H Urine RBC 0 SEEN Urine WBC 0 SEEN Ur Squamous Epith Cells 0-5 SEEN Calcium Oxalate Crystal 1+ Amorphous Sediment 1+ Urine Bacteria 2+ Coarse Granular Casts 0-5 SEEN Urine Mucus 0 SEEN Urine Test Positive H 12/13/20 19:45 WBC RBC Hgb Hct MCV MCH MCHC RDW Std Deviation RDW Coeff of Theresa Plt Count MPV Immature Gran % (Auto) Neut % (Auto) Lymph % (Auto) [place] % (Auto) Eos % (Auto) Baso % (Auto) Absolute Neuts (auto) Absolute Lymphs (auto) Nucleated RBC % Sodium Potassium Chloride Carbon Dioxide Anion Gap BUN Creatinine Estim Creat Clear Calc Est GFR (MDRD) Af Amer Est GFR (MDRD) Non-Af BUN/Creatinine Ratio Glucose Calcium HCG, Quant 86 H Urine Color Urine Clarity Urine pH Ur Specific [place] Urine Protein Urine Glucose (UA) Urine Ketones Urine Occult Blood Urine Nitrite Urine Bilirubin Urine Urobilinogen Ur Leukocyte Esterase Urine RBC Urine WBC Ur Squamous Epith Cells Calcium Oxalate Crystal Amorphous Sediment Urine Bacteria Coarse Granular Casts Urine Mucus Urine Test - Medical Decision Making Patient presenting for pelvic pain and found to be . She states that her last menstrual period was sometime in early October. She was seen in the ER for flank pain and had negative test in mid October. Does have symptoms of UTI and states she has dysuria. Urinalysis is slightly contaminated but she is asymptomatic I will treat her for UTI with Keflex. Urine culture sent. Patient's lab work shows a slight leukocytosis at 12,000. Otherwise her blood work-up is unremarkable with exception of a potassium of 3.4 which I do not think needs to be replaced in the ER. Patient's quant is 86. Which could possibly be an early . Given her symptom of the mucus a few weeks ago she could also be miscarrying. Patient is describing her pain is crampy. Patient's transvaginal ultrasound shows fluid within the endometrium in an elongated diffuse pattern with no distinct intrauterine . These findings may be associated with the missed , in progress with ectopic not entirely excluded. This I did reach out to her INSTRUMENT ADJUSTER. I spoke with Peace who is on-call for Dr. Urrutia. I discussed the case with her. She states to have the call the patient call the office tomorrow for an appointment the next day. Patient was counseled that it is unknown if she is miscarried and has a low hCG quant for that reason or if it is just early pregna ncy. She will need to follow-up in 48 hours to get repeat blood work and possible imaging. She is counseled to discontinue use of Profen and Toradol. She is counseled she should use Tylenol and heating pad. He has not had any vaginal bleeding. She is counseled that she if she has vaginal bleeding she may return to because she does not know her blood type. When she calls the office tomorrow she should determine her blood type so that she can know if she needs RhoGam should she start bleeding. This was all explained at length multiple times. Patient acknowledged understanding. Patient discharged home in stable condition. Impression: 1. Prescriptions for 2. Pelvic pain ED Disposition - Plan for ED Patient: Disposition: Home or Assisted Living Instructions: Care for a Healthy Baby, Healthy Eating Habits During , ED Bladder Infection, Female (Adult) Prescriptions: Cephalexin [Keflex] 500 mg PO Q12 #14 capsule Transmission Status: Received by [id number] Referrals: Care Physician,No Primary [Primary Care Provider] - Additional Instructions: I spoke with Peace is on-call for Dr. Urrutia. She wants you to call the office tomorrow for follow-up appointment for repeat hCG quantitative values and possibly repeat ultrasound. Remember that you can only take Tylenol for pain and use ice for your back. I am treating you for UTI today because you are symptomatic. I will send for a urine culture. Your doctor's office is aware.
--- NOTE | 2020-12-13 19:31 | US_ITS ---
STUDY: FIRST TRIMESTER OBSTETRICAL ULTRASOUND REASON FOR EXAM: Female, 35 years old Pelvic Pain LMP: Unknown. TECHNIQUE: Transvaginal TECHNICAL QUALITY: Adequate. PRIOR ULTRASOUND: None. FINDINGS: There is no demonstrated intrauterine gestational sac. There is fluid within the endometrium. There is visualization of an embryo with no cardiac activity, consistent with intrauterine demise. The estimated gestation age (EGA) by LMP: LMP unknown. The estimated gestation age (EGA) by US: No gestational sac visualized. . The uterus measures 10.5 x 6.4 x 5.7 cm. Within the uterine myometrium there are are 3 hypoechoic small masses the largest measuring 1.6 x 2.4 x 1.2 cm and 1.7 x 2.1 x 1.2 cm. The the third myometrial mass measures 1.4 x 1.3 x 1.1 cm. The cervix is closed. The right ovary measures 3.3 x 2.8 x 2.0 cm. There is no right ovarian cyst. There is no visualized right adnexal mass or complex lesion. The left ovary measures 5.3 x 4.2 x 4.2 cm. Within the left ovary there are several simple cysts, largest measuring 2.0 x 3.3 x 2.5 cm. There is no visualized left adnexal mass or complex lesion. There is no fluid in the cul de sac. US/Transvaginal w/Preg US IMPRESSION: Fluid within the endometrium in an elongated diffuse pattern with no distinct intrauterine . These findings may be associated with the missed , in progress with ectopic not entirely excluded. Follow-up recommended with serial hCG measurements and short interval ultrasound along with HAMMER DRIVER consultation. Multiple right-sided ovarian cysts, largest measuring 3.0 x 2.3 x 2.5 cm. Electronically Signed: Salma Brannon MD at 21:47 EDT , Service support ,
[2020-12-13 19:42] LABS: Mucous, Urine 0 SEEN /hpf (<or=2+); Red Blood Cells-Urine 0 SEEN /hpf (0-5); White Blood Cells 0 SEEN /hpf (0-5)
[2020-12-13 19:44] LABS: Internal QC Validated? YES +Cl - CLEAR BKGD
[2020-12-13 19:45] LABS: Pregnancy, Urine Positive Negative
[2020-12-13] MEDS: Morphine 4 MG/ML Syringe IV (19:45)
[2020-12-13] MEDS: Ondansetron 4 MG/2 ML Vial IV (19:45)
[2020-12-13 19:51] LABS: Color, Urine Yellow (Yellow); Glucose, Dipstick Normal (Normal); Ketone-Dipstick 5 mg/dl (Negative); Leukocyte Esterase-Dipstick 25 /ul (Negative); Nitrite-Dipstick Negative (Negative); Occult Blood-Urine Negative /ul (Negative); Protein-Dipstick 30 mg/dl (Negative); Specific Gravity, Urine 1.025 (1.002-1.030); Urine Bilirubin Dipstick Negative (Negative); Urine Clarity Turbid (Clear); Urine Urobilinogen Normal (Normal)
[2020-12-13 20:02] LABS: Absolute Lymphocyte Count 3.37 X10^3/uL (0.83-4.51); Absolute Neutrophil Count 7.5 X10^3/uL (2.0-7.7); Basophil# 0.06 X10^3/uL; Basophil% 0.5 % (0-1); Eosinophil# 0.17 X10^3/uL; Eosinophils% 1.4 % (0-5); Hematocrit 43.1 % (37-47); Hemoglobin 14.1 g/dL (12.0-15.0); Lymphocyte # 3.37 X10^3/ul (4.0); Lymphocyte % 28.2 % (19-41); Mean Corp Hgb Conc 32.7 g/dL (32-36); Mean Corpuscular Hgb 27.2 pg (27.0-32.0); Mean Platelet Vol. 9.6 fl (6.2-12.0); Monocyte# 0.78 X10^3/uL; Monocyte% 6.5 % (0-10); NRBC Flagged by Analyzer 0 % (0-5); Neutrophil # 7.54 X10^3/uL (2.7-7.7); Neutrophil % 63.1 % (47-70); Platelet Count 295 K/mm3 (150-450); RBC Distribution Width CV 13.2 % (11.6-14.6); RBC Distribution Width SD 40.3 fl (35.1-43.9); Red Blood Count 5.19 M/mm3 (4.2-5.4)
[2020-12-13 20:02] LABS: Calcium Oxalate Crystals Ur 1+ /hpf (<or=2+); Squamous Epithelial Cells - UA 0-5 SEEN /hpf (5-10)
[2020-12-13 20:03] LABS: Bacteria 2+ /hpf (None Seen)
[2020-12-13 20:04] LABS: Coarse Granular Cast 0-5 SEEN /lpf (0-5 /lpf)
[2020-12-13 20:05] LABS: Amorphous Sediment 1+
[2020-12-13 20:18] LABS: Anion Gap 5 (5-15); BUN 15 mg/dL (7-18); BUN/Creat Ratio 17.8 RATIO (10-20); Calcium,Total 8.7 mg/dL (8.5-10.1); Chloride 112 mmol/L (98-107); Creatinine, Serum 0.84 mg/dL (0.55-1.02); EST Glomerular Filtration Rate 83 mL/min (>60); Est Glom Filt Rate - Afr Amer 100 mL/min (>60); Estimated Creatinine Clearance 89.18 ml/min; Glucose 111 mg/dL (74-106); Potassium 3.4 mmol/L (3.5-5.1); Sodium Level 138 mmol/L (136-145)
[2020-12-13 21:58] LABS: hCG Titer Quant., Serum 86 mIU/mL (1-3)
[2020-12-13 22:02] VITALS: BP 130/75; PULSE 66; RESP 14; O2SAT 100
[2020-12-13] MEDS: Cephalexin 250 MG Capsule 500 MG PO (22:22)
[2020-12-13] MEDS: Acetaminophen 500 MG Tablet 1000 MG PO (22:22)
[2020-12-13 22:32] VITALS: BP 129/79; PULSE 72; RESP 15; O2SAT 98
== END 2020-12-13 22:33 | disposition home or self-care (01) ==
PROVIDERS: Emergency Provider Student in an Organized Health Care Education/Training Program
DX: O26.899 Other specified pregnancy related conditions, unspecified trimester (principal); R10.2 Pelvic and perineal pain; R30.0 Dysuria; O34.80 Maternal care for other abnormalities of pelvic organs, unspecified trimester; N83.201 Unspecified ovarian cyst, right side; O99.891 Other specified diseases and conditions complicating pregnancy; G93.2 Benign intracranial hypertension; R11.0 Nausea; Z3A.00 Weeks of gestation of pregnancy not specified; Z87.442 Personal history of urinary calculi
CPT/HCPCS: 76817; 80048; 81001; 81025; 84702; 85025; 87086; 87088; 96374; 96375; 99285; A4216; J2405

== ENCOUNTER 2021-01-07 20:30 | Emergency (ER) | payer MEDICAID, SELFPAY ==
[2021-01-07 20:31] VITALS: BP 133/95; PULSE 83; RESP 16; TEMP 35.5; O2SAT 97; BMI 40.3
--- NOTE | 2021-01-07 21:30 | EDS_ITS ---
HPI History of Present Illness Chief Complaint: Dizziness Informant: patient Narrative Narrative: 35-year-old female presents with vomiting and diarrhea. Patient states that she became ill on Sunday. She states that she was vomiting pretty much every 30 minutes up until yesterday evening. She states that the nausea has continued but the vomiting has subsided. The diarrhea ended earlier today. No fevers or rashes. She states she is 7 weeks (G3, P2). States that her muscles feel very tight and is hard for her to walk. She notes her urine is very dark in color. She notes that it was her son who was the first person that got sick. PFSH PFSH Home Medications ondansetron 4 mg PO Q8H PRN PRN #15 tab 01/07/21 [Rx Last Taken Unknown] potassium chloride 20 meq PO DAILY 3 Days #3 tab 01/07/21 [Rx Last Taken Unknown] Allergy/AdvReac Type Severity Reaction Status Date / Time TAPE Allergy Rash Uncoded 01/07/21 20:34 no surgical history (Noncontributory) Social History Smoking Status: Never smoker ROS ROS ED Constitutional Constitutional ED: Denies chills or weight loss Eyes Eyes: Denies change in vision or diplopia ENT ENT ED: Denies ear pain, rhinorrhea or sore throat Cardiovascular Cardiovascular: Denies chest pain, orthopnea, palpitations or racing heartbeat Respiratory/Chest Respiratory/Chest: Denies cough, dyspnea or orthopnea Gastrointestinal Gastrointestinal: Reports diarrhea, nausea and vomiting; Denies abdominal pain Genitourinary Genitourinary ED: Denies dysuria, hematuria or urinary frequency Musculoskeletal Musculoskeletal: Reports myalgias; Denies arthralgias Integumentary Denies abscess or rash Neurologic Neurologic: Denies headache(s) or weakness Psychiatric Psychiatric: Denies anxiety, depression, suicidal ideation or suicidal thoughts Endocrine Endocrinology: Denies polydipsia, polyphagia or polyuria Allergic/Immunologic Allergic/Immunologic ED: Denies mouth swelling, tongue swelling or urticaria EXAM Physical Exam Const Vital Signs: 01/07/21 20:31 01/07/21 21:12 Temperature 95.9 F L Temperature Source Temporal Pulse Rate 83 Respiratory Rate 16 Respiratory Pattern Normal Blood Pressure 133/95 H Blood Pressure Mean 107 Pulse Ox 97 Oxygen Delivery Method Room Air Positive well nourished, well developed and obese General Appearance ED: well developed Nutritional Appearance: obese HEENT Reports normocephalic, head/scalp atraumatic and moist mucous membranes Eyes PERRL and EOMs intact bilaterally Neck no lymphadenopathy, supple and no JVD Resp normal respiratory effort and clear to auscultation bilaterally Cardio regular rate, regular rhythm and no murmurs GI normal to inspection, nondistended, normoactive bowel sounds and non-tender Palpation: soft Back/Spine no CVA tenderness and normal ROM Extremity normal to inspection General Extremety ED: Negative for edema General Extremity: Negative for edema Neuro oriented x3 and CN's II-XII intact bilaterally Sensorium / Orientation: alert Motor Exam: strength 5/5 throughout Psych mental status grossly normal Mood & Affect: Negative for depressed or tearful Skin no rashes or lesions noted and no wounds MDM MDM MDM Narrative Medical decision making narrative: Patient received 2 L of IV fluids and Zofran. She also asked for Tylenol for headache. Her potassium returned slightly low at 3.3 I gave her 40 mEq orally. Her urinalysis seems rather unremarkable. No overt infection. See yellow. Patient will be discharged home after fluids prescription for Zofran and potassium. She will return if worsening or concerns Lab Data Attestation: I reviewed the patient's lab results. Labs: Laboratory Results - last 24 hr 01/07/21 01/07/21 01/07/21 21:39 21:47 21:47 WBC 9.7 RBC 5.55 H Hgb 15.2 H Hct 46.0 MCV 82.9 MCH 27.4 MCHC 33.0 RDW Std Deviation 38.9 RDW Coeff of Theresa 12.9 Plt Count 308 MPV 9.2 Immature Gran % (Auto) 0.300 Neut % (Auto) 65.0 Lymph % (Auto) 24.7 [place] % (Auto) 8.6 Eos % (Auto) 1.1 Baso % (Auto) 0.3 Absolute Neuts (auto) 6.3 Absolute Lymphs (auto) 2.39 Nucleated RBC % 0 Sodium 138 Potassium 3.3 L Chloride 107 Carbon Dioxide 24.0 Anion Gap 7 BUN 12 Creatinine 0.84 Estim Creat Clear Calc 89.18 Est GFR (MDRD) Af Amer 101 Est GFR (MDRD) Non-Af 83 BUN/Creatinine Ratio 14.3 Glucose 90 Calcium 8.7 Total Bilirubin 0.40 AST 26 ALT 45 Alkaline Phosphatase 101 Total Protein 7.7 Albumin 3.3 Globulin 4.4 H Albumin/Globulin Ratio 0.8 L Urine Color Yellow Urine Clarity Sl. Cloudy Urine pH 5.0 Ur Specific [place] 1.025 Urine Protein 30 H Urine Glucose (UA) Normal Urine Ketones 15 H Urine Occult Blood Negative Urine Nitrite Negative Urine Bilirubin Negative Urine Urobilinogen 1 H Ur Leukocyte Esterase Negative Urine RBC 0 SEEN Urine WBC 0-5 SEEN Ur Squamous Epith Cells 0-5 SEEN Urine Bacteria RARE Urine Mucus 0 SEEN Discharge Plan Triage Chief Complaint: Dizziness Other Complaint: Complaint ED Provider: Marquez Parekh Dx/Rx/DC Orders Clinical Impression: Gastroenteritis, Dehydration, Acute hypokalemia Instructions: ED Hypokalemia, ED Gastroenteritis, Viral (Adult) Prescriptions: New ondansetron [ondansetron] 4 MG tablet 4 mg PO Q8H PRN PRN (Reason: Nausea) Qty: 15 RF: 0 potassium chloride 20 mEq tablet extended release 20 meq PO DAILY 3 Days Qty: 3 RF: 0 Primary Care Provider: Care Physician,No Primary Referrals: Care Physician,No Primary [Primary Care Provider] - Activity Restrictions/Additional Instructions: Please follow-up with your CEMENT PRODUCTION PLANT OPERATOR as scheduled. Tylenol for headaches Zofran for nausea Imodium for diarrhea. Make sure you drink plenty of fluids this weekend to stay hydrated. Disposition Disposition: Home, self care
[2021-01-07 21:45] LABS: Mucous, Urine 0 SEEN /hpf (<or=2+); Red Blood Cells-Urine 0 SEEN /hpf (0-5)
[2021-01-07 21:49] LABS: Color, Urine Yellow (Yellow); Glucose, Dipstick Normal (Normal); Ketone-Dipstick 15 mg/dl (Negative); Leukocyte Esterase-Dipstick Negative /ul (Negative); Nitrite-Dipstick Negative (Negative); Occult Blood-Urine Negative /ul (Negative); Protein-Dipstick 30 mg/dl (Negative); Specific Gravity, Urine 1.025 (1.002-1.030); Urine Bilirubin Dipstick Negative (Negative); Urine Clarity Sl. Cloudy (Clear); Urine Urobilinogen 1 mg/dl (Normal)
[2021-01-07] MEDS: 0.9% Normal Saline 1,000 ML 2000 ML IV (21:50)
[2021-01-07 21:56] LABS: Absolute Lymphocyte Count 2.39 X10^3/uL (0.83-4.51); Absolute Neutrophil Count 6.3 X10^3/uL (2.0-7.7); Basophil# 0.03 X10^3/uL; Basophil% 0.3 % (0-1); Eosinophil# 0.11 X10^3/uL; Eosinophils% 1.1 % (0-5); Hemoglobin 15.2 g/dL (12.0-15.0); Lymphocyte # 2.39 X10^3/ul (0.83-4.51); Lymphocyte % 24.7 % (19-41); Mean Corpuscular Hgb 27.4 pg (27.0-32.0); Mean Corpuscular Volume 82.9 fL (81-99); Mean Platelet Vol. 9.2 fl (6.2-12.0); Monocyte# 0.83 X10^3/uL; Monocyte% 8.6 % (0-10); NRBC Flagged by Analyzer 0 % (0-5); Neutrophil # 6.29 X10^3/uL (2.7-7.7); Platelet Count 308 K/mm3 (150-450); RBC Distribution Width CV 12.9 % (11.6-14.6); RBC Distribution Width SD 38.9 fl (35.1-43.9); Red Blood Count 5.55 M/mm3 (4.2-5.4); White Blood Count 9.7 K/mm3 (4.4-11.0)
[2021-01-07] MEDS: Ondansetron 4 MG/2 ML Vial IV (21:56)
[2021-01-07 22:07] LABS: Bacteria RARE /hpf (None Seen); Squamous Epithelial Cells - UA 0-5 SEEN /hpf (5-10); White Blood Cells 0-5 SEEN /hpf (0-5)
[2021-01-07 22:12] LABS: ALB/GLOB Ratio 0.8 RATIO (0.9-2.4); AST(SGOT) 26 U/L (15-37); Alanine Aminotransfer ALT/SGPT 45 U/L (13-56); Albumin, Serum 3.3 g/dL (3.2-5.0); Alkaline Phosphatase 101 U/L (45-117); Anion Gap 7 (5-15); BUN 12 mg/dL (7-18); BUN/Creat Ratio 14.3 RATIO (10-20); Calcium,Total 8.7 mg/dL (8.5-10.1); Chloride 107 mmol/L (98-107); Creatinine, Serum 0.84 mg/dL (0.55-1.02); EST Glomerular Filtration Rate 83 mL/min (>60); Est Glom Filt Rate - Afr Amer 101 mL/min (>60); Estimated Creatinine Clearance 89.18 ml/min; Globulin 4.4 g/dL (2.2-4.2); Glucose 90 mg/dL (74-106); Potassium 3.3 mmol/L (3.5-5.1); Protein, Total 7.7 g/dL (6.4-8.2); Sodium Level 138 mmol/L (136-145)
[2021-01-07] MEDS: Potassium Chloride Oral Tablet 20 MEQ 40 MEQ PO (23:05)
[2021-01-07] MEDS: Acetaminophen 500 MG Tablet 1000 MG PO (23:05)
[2021-01-07 23:38] VITALS: RESP 18
== END 2021-01-07 23:38 | disposition home or self-care (01) ==
PROVIDERS: Emergency Provider Emergency Medicine
DX: O99.611 Diseases of the digestive system complicating pregnancy, first trimester (principal); K52.9 Noninfective gastroenteritis and colitis, unspecified; O99.281 Endocrine, nutritional and metabolic diseases complicating pregnancy, first trimester; E86.0 Dehydration; E87.6 Hypokalemia; O99.211 Obesity complicating pregnancy, first trimester; E66.9 Obesity, unspecified; Z3A.01 Less than 8 weeks gestation of pregnancy; Z79.899 Other long term (current) drug therapy
CPT/HCPCS: 80053; 81001; 85025; 96361; 96374; 99282; J7030; J2405

== ENCOUNTER 2021-01-31 12:22 | Emergency (ER) | payer MEDICAID, SELFPAY ==
[2021-01-31 12:23] VITALS: BP 143/84; PULSE 80; RESP 16; TEMP 36.4; O2SAT 97; BMI 39.2
--- NOTE | 2021-01-31 12:40 | US_ITS ---
STUDY: FIRST TRIMESTER OBSTETRICAL ULTRASOUND REASON FOR EXAM: Female, 35 years old Threatened miscarriage LMP: 10/25/2020. TECHNIQUE: Transabdominal TECHNICAL QUALITY: Adequate. PRIOR ULTRASOUND: Comparison is made with prior study dated 12/13/2020. FINDINGS: There is visualization of a single gestational sac in a normal intrauterine position. The mean sac diameter (MSD) measures 3.96 cm, indicating an estimated gestational age (EGA) of 9 weeks, 2 days. The gestational sac shape is within normal limits. There is no demonstrated yolk sac. The placenta is non-visualized. There is visualization of a live embryo. The crown-rump length (CRL) measures 4.58 cm, indicating an estimated gestational age (EGA) of 11 weeks, 1 days. There is demonstrated cardiac activity with a heart rate of 176 bpm. The estimated gestation age (EGA) by LMP is 14 weeks, 0 days. The estimated date of delivery (LAMAR) by LMP is 08/01/2021. The estimated gestation age (EGA) by US is 10 weeks, 1 days. The estimated date of delivery (LAMAR) by US is 08/28/2021. The uterus measures 14.1 cm x 8.7 cm x 7.1 cm. Multiple fibroids are seen. The largest measures 2.5 cm x 2.5 cm by 3.1 cm. The cervix is closed. The right ovary measures 3.7 cm x 1.8 cm x 2.3 cm. There is no right ovarian cyst. There is no visualized right adnexal mass or complex lesion. The left ovary measures 5.4 cm x 5.6 cm x 4.1 cm. There is a 3.8cm x 4 cm x 3.8 cm cyst in the left ovary. A smaller cyst measuring 2.4 cm x 2.6 times by 2.3 cm is seen. There is no visualized left adnexal mass or complex lesion. There is no fluid in the cul de sac. US/Init OB < 14Wks US IMPRESSION: Single live intrauterine gestation with a mean gestational age of 10 weeks and 1 day. Left ovarian cyst. Uterine fibroids. Electronically Signed: Molina Luis MD at 15:13 EDT , Service support ,
[2021-01-31 13:39] LABS: Color, Urine Yellow (Yellow); Glucose, Dipstick Normal (Normal); Ketone-Dipstick Negative (Negative); Leukocyte Esterase-Dipstick 25 /ul (Negative); Nitrite-Dipstick Negative (Negative); Occult Blood-Urine 250 /ul (Negative); Protein-Dipstick 15 mg/dl (Negative); Specific Gravity, Urine 1.015 (1.002-1.030); Urine Bilirubin Dipstick Negative (Negative); Urine Clarity Sl. Cloudy (Clear); Urine Urobilinogen Normal (Normal)
[2021-01-31 13:42] LABS: Absolute Lymphocyte Count 2.52 X10^3/uL (0.83-4.51); Basophil# 0.04 X10^3/uL; Basophil% 0.5 % (0-1); Eosinophil# 0.18 X10^3/uL; Eosinophils% 2.1 % (0-5); Hematocrit 42.3 % (37-47); Lymphocyte # 2.52 X10^3/ul (0.83-4.51); Mean Corp Hgb Conc 33.1 g/dL (32-36); Mean Corpuscular Hgb 27.6 pg (27.0-32.0); Mean Corpuscular Volume 83.3 fL (81-99); Mean Platelet Vol. 9.1 fl (6.2-12.0); Monocyte% 7.1 % (0-10); NRBC Flagged by Analyzer 0 % (0-5); Neutrophil # 5.04 X10^3/uL (2.7-7.7); Neutrophil % 60.1 % (47-70); Platelet Count 264 K/mm3 (150-450); RBC Distribution Width CV 12.8 % (11.6-14.6); RBC Distribution Width SD 38.6 fl (35.1-43.9); Red Blood Count 5.08 M/mm3 (4.2-5.4); White Blood Count 8.4 K/mm3 (4.4-11.0)
[2021-01-31 13:47] LABS: Amorphous Sediment 1+ URATE; Bacteria 2+ /hpf (None Seen); Mucous, Urine 1+ /hpf (<or=2+); Red Blood Cells-Urine 25-50 SEEN /hpf (0-5); Squamous Epithelial Cells - UA 5-10 SEEN /hpf (5-10); White Blood Cells 0-5 SEEN /hpf (0-5)
--- NOTE | 2021-01-31 14:52 | ED.VIS.FEGU ---
HPI HPI - Female History of Present Illness Chief Complaint: Informant: patient Pain Pain: Positive for Pelvic Pain Onset: Yesterday Context: Gradual Onset Timing: Intermittent and Lasts (Several hours) Quality: Positive for Cramping Location: RLQ, LLQ, Suprapubic and Back Current Severity: Gone Bleeding Issue: Positive for Vaginal bleeding Onset: Today Context: Gradual Onset Current Severity: Spotting Severity: Mild Maximum Severity: Mild Associated Symptoms Last known menstrual period: In October or November Test: Positive P: 2 Narrative Narrative: Patient presents with vaginal bleeding that began today. Patient states that she was having some cramping last evening. Patient states it lasted several hours. Patient states that she was able to go to bed and the cramping had resolved. Patient states the cramping was over the entire lower abdomen and radiates into her back. Patient states that today she went to the bathroom and wiped. Patient states she noted some dark brown blood at that time. Patient denies any cramping today. Patient denies any dysuria or hematuria. Patient states she is approximately 10 weeks . PFSH PFSH no medical history Home Medications promethazine [Phenergan] 25 mg PO Q6H PRN 01/31/21 [History Last Taken Unknown] Allergy/AdvReac Type Severity Reaction Status Date / Time TAPE Allergy Rash Uncoded 01/31/21 12:25 Surgical History (Updated 01/31/21 @ 14:[address] Pranav Biggs DO) History of section History of cholecystectomy History of umbilical hernia repair Hx of tympanostomy tubes Social History Smoking Status: Never smoker ROS ROS ED Constitutional Constitutional ED: Denies chills or fever(s) Eyes Eyes: Reports blurry vision; Denies change in vision ENT ENT ED: Denies rhinorrhea or sore throat Cardiovascular Cardiovascular: Denies chest pain or palpitations Respiratory/Chest Respiratory/Chest: Denies cough or dyspnea Gastrointestinal Gastrointestinal: Reports abdominal pain and nausea; Denies vomiting Genitourinary Genitourinary ED: Denies dysuria or hematuria Musculoskeletal Musculoskeletal: Reports back pain; Denies neck pain Integumentary Denies abscess or rash Neurologic Neurologic: Denies headache(s) or weakness Allergic/Immunologic Allergic/Immunologic ED: Denies mouth swelling or urticaria EXAM Physical Exam Const Vital Signs: 01/31/21 12:23 Temperature 97.6 F L Temperature Source Temporal Pulse Rate 80 Respiratory Rate 16 Blood Pressure 143/84 H Blood Pressure Mean 103 Pulse Ox 97 Oxygen Delivery Method Room Air Positive well nourished and well developed General Appearance ED: well developed HEENT Reports moist mucous membranes Neck supple and no JVD Resp normal respiratory effort and clear to auscultation bilaterally Cardio regular rate, regular rhythm and S1 normal heart sound GI normal to inspection, nondistended, normoactive bowel sounds, soft to palpation and non-tender Neuro oriented x3, CN's II-XII intact bilaterally and no sensory deficits noted Sensorium / Orientation: alert Motor Exam: strength 5/5 throughout Psych mental status grossly normal MDM MDM MDM Narrative Medical decision making narrative: CBC was within normal limits. [place] [address]. Urinalysis does not show any evidence of urinary tract infection. Patient did not know her blood type. This was obtained and was O+. Pelvic ultrasound was obtained. There is a single live intrauterine with gestational age of 10 weeks and 1 day. There is heart rate of 177. There is a left ovarian cyst and uterine fibroids. Patient was advised of her findings. Patient was instructed on complete vaginal rest. Patient was instructed to follow-up with her WOOD PATTERNMAKER APPRENTICE in 2 to 3 days. Patient understood and was agreeable with the plan. All questions were answered. Lab Data Attestation: I reviewed the patient's lab results. Labs: Laboratory Results - last 24 hr 01/31/21 01/31/21 01/31/21 13:24 13:35 13:35 WBC 8.4 RBC 5.08 Hgb 14.0 Hct 42.3 MCV 83.3 MCH 27.6 MCHC 33.1 RDW Std Deviation 38.6 RDW Coeff of [place] 12.8 Plt Count 264 MPV 9.1 Immature Gran % (Auto) 0.200 Neut % (Auto) 60.1 Lymph % (Auto) 30.0 [place] % (Auto) 7.1 Eos % (Auto) 2.1 Baso % (Auto) 0.5 Absolute Neuts (auto) 5.0 Absolute Lymphs (auto) 2.52 Nucleated RBC % 0 HCG, Quant 70027 H Urine Color Yellow Urine Clarity Sl. Cloudy Urine pH 7.0 Ur Specific [place] 1.015 Urine Protein 15 H Urine Glucose (UA) Normal Urine Ketones Negative Urine Occult Blood 250 H Urine Nitrite Negative Urine Bilirubin Negative Urine Urobilinogen Normal Ur Leukocyte Esterase 25 H Urine RBC 25-50 SEEN Urine WBC 0-5 SEEN Ur Squamous Epith Cells 5-10 SEEN Amorphous Sediment 1+ URATE Urine Bacteria 2+ Urine Mucus 1+ Blood Type 01/31/21 13:35 WBC RBC Hgb Hct MCV MCH MCHC RDW Std Deviation RDW Coeff of Theresa Plt Count MPV Immature Gran % (Auto) Neut % (Auto) Lymph % (Auto) [place] % (Auto) Eos % (Auto) Baso % (Auto) Absolute Neuts (auto) Absolute Lymphs (auto) Nucleated RBC % HCG, Quant Urine Color Urine Clarity Urine pH Ur Specific [place] Urine Protein Urine Glucose (UA) Urine Ketones Urine Occult Blood Urine Nitrite Urine Bilirubin Urine Urobilinogen Ur Leukocyte Esterase Urine RBC Urine WBC Ur Squamous Epith Cells Amorphous Sediment Urine Bacteria Urine Mucus Blood Type O POSITIVE Discharge Plan Triage Chief Complaint: ED Provider: Pranav Biggs Dx/Rx/DC Orders Clinical Impression: Threatened miscarriage Instructions: ED Possible Miscarriage ... Prescriptions: No Action promethazine [Phenergan] 25 mg Tablet 25 mg PO Q6H PRN (Reason: Nausea) RF: 0 Primary Care Provider: Care Physician,No Primary Referrals: Care Physician,No Primary [Primary Care Provider] - 3-5 Days Disposition Disposition: Home, self care
[2021-01-31 15:39] VITALS: BP 128/83; PULSE 65; RESP 17; O2SAT 100
== END 2021-01-31 15:40 | disposition home or self-care (01) ==
PROVIDERS: Emergency Provider Emergency Medicine
DX: O20.0 Threatened abortion (principal); O34.11 Maternal care for benign tumor of corpus uteri, first trimester; D25.9 Leiomyoma of uterus, unspecified; O34.81 Maternal care for other abnormalities of pelvic organs, first trimester; N83.202 Unspecified ovarian cyst, left side; Z79.899 Other long term (current) drug therapy; Z3A.10 10 weeks gestation of pregnancy
CPT/HCPCS: 36415; 76801; 81001; 84702; 85025; 86900; 86901; 99282; A4216

== ENCOUNTER 2021-02-22 02:35 | Emergency (ER) | payer MEDICAID, SELFPAY ==
[2021-02-22 02:36] VITALS: BP 152/98; PULSE 86; RESP 14; TEMP 35.4; O2SAT 99; BMI 39.6
[2021-02-22 02:56] LABS: Absolute Lymphocyte Count 3.16 X10^3/uL (0.83-4.51); Absolute Neutrophil Count 8.3 X10^3/uL (2.0-7.7); Basophil# 0.07 X10^3/uL; Basophil% 0.6 % (0-1); Eosinophil# 0.17 X10^3/uL; Eosinophils% 1.4 % (0-5); Hematocrit 39.5 % (37-47); Hemoglobin 13.3 g/dL (12.0-15.0); Lymphocyte # 3.16 X10^3/ul (0.83-4.51); Lymphocyte % 25.4 % (19-41); Mean Corp Hgb Conc 33.7 g/dL (32-36); Mean Corpuscular Hgb 27.7 pg (27.0-32.0); Mean Corpuscular Volume 82.3 fL (81-99); Mean Platelet Vol. 9.5 fl (6.2-12.0); Monocyte# 0.74 X10^3/uL; Monocyte% 5.9 % (0-10); NRBC Flagged by Analyzer 0 % (0-5); Neutrophil # 8.26 X10^3/uL (2.7-7.7); Neutrophil % 66.3 % (47-70); Platelet Count 295 K/mm3 (150-450); RBC Distribution Width CV 13.2 % (11.6-14.6); RBC Distribution Width SD 39.3 fl (35.1-43.9); White Blood Count 12.5 K/mm3 (4.4-11.0)
--- NOTE | 2021-02-22 03:04 | EX.ED.DYSGE1 ---
HPI History of Present Illness Chief Complaint: General Illness Informant: patient Narrative Narrative: Patient is a 35-year-old G3, P2 at approximately 13 weeks who presents to the emergency department for generally not feeling well. She states that her initial symptoms started around 11 PM this past night. She has had a headache and dizziness. She is had some blurred vision. She has been nauseous but not vomiting. She felt like her blood pressure was high. She denies any issues with this . She did have elevated blood pressure 1 week after delivering her first child. She did spend time in the ICU for this. She has seen her corporate securities research analyst and they did noticed that she did have mildly elevated blood pressure at that time. They told her to keep an eye on this. She is not on any blood pressure medications. She denies any significant leg swelling. No chest pain, shortness of breath. She does get some intermittent palpitations. She denies any abdominal pain. No vaginal bleeding or discharge. No urinary symptoms. She denies any change in bowel movements Her son has also checked in for not feeling well. He has a runny nose and a mild cough today.. PFSH PFSH Home Medications promethazine [Phenergan] 25 mg PO Q6H PRN 01/31/21 [History Last Taken Unknown] Allergy/AdvReac Type Severity Reaction Status Date / Time TAPE Allergy Rash Uncoded 02/22/21 02:39 Surgical History History of section History of cholecystectomy History of umbilical hernia repair Hx of tympanostomy tubes Social History Smoking Status: Never smoker ROS ROS ED Constitutional Constitutional ED: Denies chills or fever(s) ENT ENT ED: Denies epistaxis or rhinorrhea Cardiovascular Cardiovascular: Denies chest pain or palpitations Respiratory/Chest Respiratory/Chest: Denies cough, dyspnea or dyspnea on exertion Gastrointestinal Gastrointestinal: Reports nausea; Denies abdominal pain, diarrhea or vomiting Genitourinary Genitourinary ED: Denies dysuria, hematuria or urinary frequency Musculoskeletal Musculoskeletal: Denies back pain or neck pain Integumentary Denies rash Neurologic Neurologic: Reports headache(s); Denies dizziness or weakness EXAM Physical Exam Const Vital Signs: 02/22/21 02:36 02/22/21 02:39 02/22/21 04:12 Temperature 95.7 F L Temperature Source Temporal Pulse Rate 86 62 Respiratory Rate 14 16 Respiratory Effort Normal Respiratory Pattern Normal Blood Pressure 152/98 H 131/83 H Blood Pressure Mean 116 99 Pulse Ox 99 98 Oxygen Delivery Method Room Air Room Air 02/22/21 05:07 Temperature Temperature Source Pulse Rate Respiratory Rate Respiratory Effort Respiratory Pattern Blood Pressure 123/73 H Blood Pressure Mean Pulse Ox Oxygen Delivery Method Positive well nourished and well developed General Appearance ED: well developed and NAD HEENT Reports normocephalic, head/scalp atraumatic and moist mucous membranes Eyes PERRL and EOMs intact bilaterally Neck supple General: Negative for tenderness Chest Wall inspection of chest normal Resp normal respiratory effort and clear to auscultation bilaterally Auscultation: Negative for rales, rhonchi or wheezes Cardio regular rate, regular rhythm and no murmurs GI normal to inspection, nondistended, normoactive bowel sounds and non-tender Palpation: soft; Negative for guarding or rebound tenderness present Back/Spine no CVA tenderness Extremity normal to inspection General Extremety ED: Negative for edema or tenderness General Extremity: Negative for edema Neuro oriented x3, CN's II-XII intact bilaterally and no sensory deficits noted Sensorium / Orientation: alert Motor Exam: strength 5/5 throughout Psych mental status grossly normal Skin no rashes or lesions noted MDM MDM MDM Narrative Medical decision making narrative: Patient presents to the emergency department for generally not feeling well. She has a headache, nausea. She is concerned her blood pressure was elevating as she is getting dizzy. She is approximately 13 weeks . On arrival to the ED she does have mild hypertension of 152/98. The rest of her vital signs within normal limits. She is in no acute distress on physical exam. Will check basic lab work and start IV fluids. Throughout ED stay patient's blood pressure has returned to normal without any treatment. Lab work showed a very minimal elevation of her white blood cell count, normal liver enzymes, normal LDH, normal uric acid. Patient does not meet criteria for preeclampsia as she is not 20 weeks . Urine does not show any signs of infection. She is to have close follow-up with her PATTERN GRADER CUTTER. She is feeling much better after treatments here in the ED. She had taken Tylenol upon arrival and her headache is resolving. This time she is discharged home in stable condition. Return precautions are reviewed. All questions were answered. Lab Data Labs: Laboratory Results - last 24 hr 02/22/21 02/22/21 02/22/21 02:50 02:50 04:07 WBC 12.5 H RBC 4.80 Hgb 13.3 Hct 39.5 MCV 82.3 MCH 27.7 MCHC 33.7 RDW Std Deviation 39.3 RDW Coeff of Theresa 13.2 Plt Count 295 MPV 9.5 Immature Gran % (Auto) 0.400 Neut % (Auto) 66.3 Lymph % (Auto) 25.4 [place] % (Auto) 5.9 Eos % (Auto) 1.4 Baso % (Auto) 0.6 Absolute Neuts (auto) 8.3 H Absolute Lymphs (auto) 3.16 Nucleated RBC % 0 Sodium 139 Potassium 3.6 Chloride 108 H Carbon Dioxide 21.0 Anion Gap 10 BUN 10 Creatinine 0.67 Estim Creat Clear Calc 111.80 Est GFR (MDRD) Af Amer 129 Est GFR (MDRD) Non-Af 107 BUN/Creatinine Ratio 14.8 Glucose 88 Uric Acid 4.6 Calcium 8.5 Magnesium 2.0 Total Bilirubin 0.30 AST 19 ALT 27 Alkaline Phosphatase 110 Lactate Dehydrogenase 155 Total Protein 7.3 Albumin 3.0 L Globulin 4.3 H Albumin/Globulin Ratio 0.7 L Urine Color Yellow Urine Clarity Sl. Cloudy Urine pH 6.5 Ur Specific [place] 1.010 Urine Protein Negative Urine Glucose (UA) Normal Urine Ketones Negative Urine Occult Blood Negative Urine Nitrite Negative Urine Bilirubin Negative Urine Urobilinogen Normal Ur Leukocyte Esterase Negative Urine RBC 0 SEEN Urine WBC 0 SEEN Ur Squamous Epith Cells 0-5 SEEN Urine Bacteria 0 SEEN Urine Mucus 0 SEEN Discharge Plan Triage Chief Complaint: General Illness ED Provider: Marco Palomino Dx/Rx/DC Orders Clinical Impression: Headache, Nausea Instructions: Self-Care for Headaches, ED Vomiting (Adult) Prescriptions: No Action promethazine [Phenergan] 25 mg Tablet 25 mg PO Q6H PRN (Reason: Nausea) RF: 0 Primary Care Provider: Care Physician,No Primary Referrals: Care Physician,No Primary [Primary Care Provider] - Activity Restrictions/Additional Instructions: Please follow-up with your PATTERN GRADER CUTTER in 1 to 2 days. Disposition Disposition: Home, self care Discharge Date/Time: 02/22/21 05:08
[2021-02-22] MEDS: 0.9% Normal Saline 1,000 ML 999 ML IV (03:08)
[2021-02-22 03:13] LABS: ALB/GLOB Ratio 0.7 RATIO (0.9-2.4); AST(SGOT) 19 U/L (15-37); Alanine Aminotransfer ALT/SGPT 27 U/L (13-56); Alkaline Phosphatase 110 U/L (45-117); Anion Gap 10 (5-15); BUN 10 mg/dL (7-18); BUN/Creat Ratio 14.8 RATIO (10-20); Calcium,Total 8.5 mg/dL (8.5-10.1); Chloride 108 mmol/L (98-107); Creatinine, Serum 0.67 mg/dL (0.55-1.02); EST Glomerular Filtration Rate 107 mL/min (>60); Est Glom Filt Rate - Afr Amer 129 mL/min (>60); Globulin 4.3 g/dL (2.2-4.2); Glucose 88 mg/dL (74-106); LDH 155 U/L (84-246); Potassium 3.6 mmol/L (3.5-5.1); Protein, Total 7.3 g/dL (6.4-8.2); Sodium Level 139 mmol/L (136-145); Uric Acid 4.6 mg/dL (2.6-6.0)
[2021-02-22 04:12] VITALS: BP 131/83; PULSE 62; RESP 16; O2SAT 98
[2021-02-22 04:13] LABS: Bacteria 0 SEEN /hpf (None Seen); Mucous, Urine 0 SEEN /hpf (<or=2+); Red Blood Cells-Urine 0 SEEN /hpf (0-5); White Blood Cells 0 SEEN /hpf (0-5)
[2021-02-22 04:14] LABS: Color, Urine Yellow (Yellow); Glucose, Dipstick Normal (Normal); Ketone-Dipstick Negative (Negative); Leukocyte Esterase-Dipstick Negative /ul (Negative); Nitrite-Dipstick Negative (Negative); Occult Blood-Urine Negative /ul (Negative); Protein-Dipstick Negative (Negative); Urine Bilirubin Dipstick Negative (Negative); Urine Clarity Sl. Cloudy (Clear); Urine Urobilinogen Normal (Normal); Urine pH 6.5 (5.0 - 8.0)
[2021-02-22 04:20] LABS: Squamous Epithelial Cells - UA 0-5 SEEN /hpf (5-10)
[2021-02-22] MEDS: proMETHazine 25 MG Tablet 12.5 MG PO (04:33)
[2021-02-22 05:07] VITALS: BP 123/73
== END 2021-02-22 05:08 | disposition home or self-care (01) ==
PROVIDERS: Emergency Provider Emergency Medicine
DX: O26.891 Other specified pregnancy related conditions, first trimester (principal); R51.9 Headache, unspecified; R11.0 Nausea; R00.2 Palpitations; R05 Cough; R42 Dizziness and giddiness; Z79.899 Other long term (current) drug therapy; Z3A.13 13 weeks gestation of pregnancy
CPT/HCPCS: 80053; 81001; 83615; 83735; 84550; 85025; 96360; 99284; J7030; A4216

== ENCOUNTER 2021-03-13 00:37 | Emergency (ER) | payer MEDICAID, SELFPAY ==
[2021-03-13 00:38] VITALS: BP 187/81; PULSE 96; RESP 16; TEMP 36.6; O2SAT 99; BMI 39.4
--- NOTE | 2021-03-13 01:26 | US_ITS ---
We are attempting to reach an attending provider to discuss findings. An addendum with communication details will be sent when the communication is complete. STUDY: SECOND AND THIRD TRIMESTER OBSTETRICAL ULTRASOUND - LIMITED REASON FOR EXAM: Female, 35 years old LLQ pain - 16 WKS PREG LMP: Unknown. PRIOR ULTRASOUND: 01/31/2021. TECHNIQUE: Transabdominal TECHNICAL QUALITY: Adequate. FINDINGS: There is a single intrauterine fetus. The fetus is in a cephalic presentation. There is no cardiac activity. There is a normal amniotic fluid volume. The largest amniotic fluid pocket measures 4.6 x 3.3 cm. The placenta is posterior in location and is not low lying. There are Grade 0 placental changes. The cervix measures 4.8 cm cm in length. The cervix is closed. The left ovary measures 5.9 x 3.6 x 4.2 cm. A round anechoic structure seen within the left ovary, patible with a simple cyst measuring 4.2 x 2.8 x 3 point a centimeter. Normal flow within the left ovary seen. The right ovary is not visualized. BIOMETRY: BPD: 2.7 cm: 14 weeks, 4 days HC: 9.7 cm: 14 weeks, 3 days AC: 8.0 cm: 14 weeks, 2 days FL: 1.6 cm: 14 weeks, 3 days Age by LMP: 16 weeks, 3 days. LAMAR by LMP: 09/08/2021. LAMAR by prior US: 08/01/2021. age by current US: 14 weeks, 3 days. LAMAR by current US: 08/12/2021. Estimated weight: 19 grams, +/- 15 grams, 0.80 percentile. US/OB Limited With Biometrics IMPRESSION: Benign transient with ultrasound age of 14 weeks and 3 days and estimated date of delivery of 08/12/2021. No cardiac activity concerning for demise. Left ovarian cyst measuring 4.2 x 2.8 x 3.8 cm. Electronically Signed: Salma Brannon MD at 3:46 EDT , Service support ,
[2021-03-13] MEDS: Morphine 4 MG/ML Syringe IV (01:47)
[2021-03-13] MEDS: Ondansetron 4 MG/2 ML Vial IV ×2 (01:47→05:07)
[2021-03-13 01:50] LABS: Mucous, Urine 0 SEEN /hpf (<or=2+); Red Blood Cells-Urine 0 SEEN /hpf (0-5); White Blood Cells 0 SEEN /hpf (0-5)
[2021-03-13 01:59] LABS: Absolute Lymphocyte Count 3.08 X10^3/uL (0.83-4.51); Absolute Neutrophil Count 6.6 X10^3/uL (2.0-7.7); Basophil# 0.03 X10^3/uL; Basophil% 0.3 % (0-1); Eosinophil# 0.11 X10^3/uL; Hematocrit 37.7 % (37-47); Hemoglobin 12.9 g/dL (12.0-15.0); Lymphocyte # 3.08 X10^3/ul (0.83-4.51); Lymphocyte % 29.3 % (19-41); Mean Corp Hgb Conc 34.2 g/dL (32-36); Mean Corpuscular Hgb 27.9 pg (27.0-32.0); Mean Corpuscular Volume 81.6 fL (81-99); Mean Platelet Vol. 9.6 fl (6.2-12.0); Monocyte# 0.69 X10^3/uL; Monocyte% 6.6 % (0-10); NRBC Flagged by Analyzer 0 % (0-5); Neutrophil # 6.57 X10^3/uL (2.7-7.7); Neutrophil % 62.6 % (47-70); Platelet Count 294 K/mm3 (150-450); RBC Distribution Width CV 13.2 % (11.6-14.6); RBC Distribution Width SD 39.3 fl (35.1-43.9); Red Blood Count 4.62 M/mm3 (4.2-5.4); White Blood Count 10.5 K/mm3 (4.4-11.0)
[2021-03-13 02:12] LABS: AST(SGOT) 10 U/L (15-37); Alanine Aminotransfer ALT/SGPT 17 U/L (13-56); Alkaline Phosphatase 121 U/L (45-117); Anion Gap 9 (5-15); BUN 11 mg/dL (7-18); BUN/Creat Ratio 15.1 RATIO (10-20); Bilirubin, Direct 0.07 mg/dL (0.00-0.30); Calcium,Total 8.6 mg/dL (8.5-10.1); Chloride 110 mmol/L (98-107); Creatinine, Serum 0.73 mg/dL (0.55-1.02); EST Glomerular Filtration Rate 98 mL/min (>60); Est Glom Filt Rate - Afr Amer 118 mL/min (>60); Estimated Creatinine Clearance 102.61 ml/min; Globulin 4.2 g/dL (2.2-4.2); Glucose 105 mg/dL (74-106); Potassium 3.2 mmol/L (3.5-5.1); Protein, Total 7.2 g/dL (6.4-8.2); Sodium Level 141 mmol/L (136-145)
[2021-03-13 02:13] LABS: Color, Urine Yellow (Yellow); Glucose, Dipstick Normal (Normal); Ketone-Dipstick Negative (Negative); Leukocyte Esterase-Dipstick Negative /ul (Negative); Nitrite-Dipstick Negative (Negative); Occult Blood-Urine Negative /ul (Negative); Protein-Dipstick Negative (Negative); Specific Gravity, Urine 1.015 (1.002-1.030); Urine Bilirubin Dipstick Negative (Negative); Urine Clarity Clear (Clear); Urine Urobilinogen Normal (Normal); Urine pH 6.5 (5.0 - 8.0)
[2021-03-13 02:26] LABS: Amorphous Sediment 1+; Bacteria 2+ /hpf (None Seen); Squamous Epithelial Cells - UA 0-5 SEEN /hpf (5-10)
[2021-03-13 02:57] VITALS: BP 160/93; PULSE 75; RESP 14; O2SAT 98
--- NOTE | 2021-03-13 04:43 | ED.VIS.FEGU ---
HPI HPI - Female History of Present Illness Chief Complaint: Informant: patient Pain Pain: Positive for Pelvic Pain Onset: Yesterday Context: Gradual Onset Timing: Waxes and wanes Quality: Positive for Sharp Current Severity: Moderate Maximum Severity: Severe Associated Symptoms P: 2 Ab: 0 Narrative Narrative: Patient presents secondary to pelvic pain. She is presently 16 weeks , Ab0. Patient states that yesterday she developed sharp stabbing pelvic pain over the ovary region bilaterally, left greater than right. She denies any bleeding or spotting. Patient states when she stood up pain came down across the suprapubic region. She does note increased urination and some pressure when she urinates. She denies fever or chills. Past medical history Ovarian cysts Kidney stone, anxiety/depression Migraines PFSH PFSH Medical History Anxiety Depression Kidney stones Migraines Ovarian cyst Home Medications promethazine [Phenergan] 25 mg PO Q6H PRN 01/31/21 [History Last Taken Unknown] Allergy/AdvReac Type Severity Reaction Status Date / Time TAPE Allergy Rash Uncoded 02/22/21 02:39 Surgical History History of section History of cholecystectomy History of umbilical hernia repair Hx of tympanostomy tubes Social History Smoking Status: Never smoker ROS ROS ED Constitutional Constitutional ED: Denies chills or fever(s) Eyes Eyes: Denies change in vision ENT ENT ED: Denies sore throat Cardiovascular Cardiovascular: Denies chest pain Respiratory/Chest Respiratory/Chest: Denies cough or dyspnea Gastrointestinal Gastrointestinal: Reports abdominal pain; Denies diarrhea, nausea or vomiting Genitourinary Genitourinary ED: Denies dysuria Musculoskeletal Musculoskeletal: Denies back pain Integumentary Denies rash Neurologic Neurologic: Denies headache(s) or weakness Psychiatric Psychiatric: Denies anxiety or depression Endocrine Endocrinology: Denies polydipsia or polyuria Allergic/Immunologic Allergic/Immunologic ED: Denies urticaria EXAM Physical Exam Const Vital Signs: 03/13/21 00:38 03/13/21 02:57 03/13/21 04:54 Temperature 97.9 F Temperature Source Oral Pulse Rate 96 75 66 Respiratory Rate 16 14 18 Blood Pressure 187/81 H 160/93 H 142/73 H Blood Pressure Mean 116 115 Pulse Ox 99 98 98 Oxygen Delivery Method Room Air Room Air Positive well nourished and well developed General Appearance ED: well developed HEENT Reports normocephalic and head/scalp atraumatic Eyes PERRL and EOMs intact bilaterally Neck supple Chest Wall inspection of chest normal and palpation of chest normal Resp normal respiratory effort and clear to auscultation bilaterally Cardio regular rate and regular rhythm GI soft to palpation Auscultation: hypoactive bowel sounds Palpation: soft and tender LLQ; Negative for guarding Back/Spine no CVA tenderness Extremity normal to inspection Neuro oriented x3 and no sensory deficits noted Sensorium / Orientation: alert Motor Exam: strength 5/5 throughout Psych mental status grossly normal Skin no rashes or lesions noted MDM MDM MDM Narrative Medical decision making narrative: Lab work and urinalysis are obtained. Ultrasound was ordered secondary to concern for possible torsion. Patient was given morphine and Zofran for pain control. Lab Data Attestation: I reviewed the patient's lab results. Labs: Laboratory Results - last 24 hr 03/13/21 03/13/21 03/13/21 01:30 01:45 01:45 WBC 10.5 RBC 4.62 Hgb 12.9 Hct 37.7 MCV 81.6 MCH 27.9 MCHC 34.2 RDW Std Deviation 39.3 RDW Coeff of Theresa 13.2 Plt Count 294 MPV 9.6 Immature Gran % (Auto) 0.200 Neut % (Auto) 62.6 Lymph % (Auto) 29.3 Dubois % (Auto) 6.6 Eos % (Auto) 1.0 Baso % (Auto) 0.3 Absolute Neuts (auto) 6.6 Absolute Lymphs (auto) 3.08 Nucleated RBC % 0 Sodium 141 Potassium 3.2 L Chloride 110 H Carbon Dioxide 22.0 Anion Gap 9 BUN 11 Creatinine 0.73 Estim Creat Clear Calc 102.61 Est GFR (MDRD) Af Amer 118 Est GFR (MDRD) Non-Af 98 BUN/Creatinine Ratio 15.1 Glucose 105 Calcium 8.6 Total Bilirubin 0.20 Direct Bilirubin 0.07 AST 10 L ALT 17 Alkaline Phosphatase 121 H Total Protein 7.2 Albumin 3.0 L Globulin 4.2 Urine Color Yellow Urine Clarity Clear Urine pH 6.5 Ur Specific [place] 1.015 Urine Protein Negative Urine Glucose (UA) Normal Urine Ketones Negative Urine Occult Blood Negative Urine Nitrite Negative Urine Bilirubin Negative Urine Urobilinogen Normal Ur Leukocyte Esterase Negative Urine RBC 0 SEEN Urine WBC 0 SEEN Ur Squamous Epith Cells 0-5 SEEN Amorphous Sediment 1+ Urine Bacteria 2+ Urine Mucus 0 SEEN Radiography Diagnostic Testing: Radiology Impression Obstetrics Ultrasound 03/13/21 01:26 IMPRESSION: Benign transient with ultrasound age of 14 weeks and 3 days and estimated date of delivery of 08/12/2021. No cardiac activity concerning for demise. Left ovarian cyst measuring 4.2 x 2.8 x 3.8 cm. Electronically Signed: Salma Brannon MD at 3:46 EDT , Service support , ADDENDUM: 03/13/21 0354 IMPRESSION: Benign transient with ultrasound age of 14 weeks and 3 days and estimated date of delivery of 08/12/2021. No cardiac activity concerning for demise. Left ovarian cyst measuring 4.2 x 2.8 x 3.8 cm. N.B. : The above Results were Read Back by Salma Brannon MD to Dasha Liang MD, and understanding confirmed on 03/13/2021 03:48:00 (ET). Electronically Signed: Salma Brannon MD at 3:46 EDT , Service support , Treatment and Re-Evaluation Comments:: Blood work is unremarkable. I did receive a phone call from [employer] stating that the baby was only measuring 14 weeks and no cardiac activity was noted. I did speak with the radiologist for formal reading as well. There is a left ovarian cyst but no evidence of torsion. Test results are discussed with the patient at bedside. She is able to call family to be with her. I spoke with Lenka Galloway, covering for Dr. Lana serrano. She did asked that the patient call the office to be seen on Sunday and they will schedule a procedure for her. If the patient has increased pain or bleeding prior to that she is to go to the hospital at [place] where her physicians are able to care for her. Patient be discharged with a prescription for [place] to help with pain. Discharge Plan Triage Chief Complaint: ED Provider: Dasha Liang Dx/Rx/DC Orders Clinical Impression: demise, Left ovarian cyst Instructions: ED DEMISE Prescriptions: No Action promethazine [Phenergan] 25 mg Tablet 25 mg PO Q6H PRN (Reason: Nausea) RF: 0 Primary Care Provider: Care Physician,No Primary Referrals: Jackson Urrutia DO [NON-STAFF] - 03/15/21 Care Physician,No Primary [Primary Care Provider] - Disposition Disposition: Home, Self Care Discharge Date/Time: 03/13/21 05:16
[2021-03-13 04:54] VITALS: BP 142/73; PULSE 66; RESP 18; O2SAT 98
[2021-03-13] MEDS: HYDROmorphone 0.5 MG/0.5 ML SYRINGE IV (05:08)
== END 2021-03-13 05:16 | disposition home or self-care (01) ==
PROVIDERS: Emergency Provider Emergency Medicine
DX: O02.1 Missed abortion (principal); O26.892 Other specified pregnancy related conditions, second trimester; R10.2 Pelvic and perineal pain; O34.82 Maternal care for other abnormalities of pelvic organs, second trimester; N83.202 Unspecified ovarian cyst, left side; Z87.442 Personal history of urinary calculi; Z3A.16 16 weeks gestation of pregnancy
CPT/HCPCS: 76816; 76817; 80048; 80076; 81001; 85025; 93976; 96374; 96375; 96376; 99284; A4216; J2405

== ENCOUNTER 2021-05-02 20:39 | Emergency (ER) | payer MEDICAID, SELFPAY ==
[2021-05-02 20:41] VITALS: BP 159/90; PULSE 92; RESP 16; TEMP 36.4; O2SAT 98; BMI 38.7
[2021-05-02 20:56] LABS: Mucous, Urine 0 SEEN /hpf (<or=2+); Red Blood Cells-Urine 0 SEEN /hpf (0-5); White Blood Cells 0 SEEN /hpf (0-5)
[2021-05-02 20:59] LABS: Color, Urine Yellow (Yellow); Glucose, Dipstick Normal (Normal); Ketone-Dipstick Negative (Negative); Leukocyte Esterase-Dipstick Negative /ul (Negative); Nitrite-Dipstick Negative (Negative); Occult Blood-Urine 10 /ul (Negative); Protein-Dipstick 15 mg/dl (Negative); Specific Gravity, Urine 1.025 (1.002-1.030); Urine Bilirubin Dipstick Negative (Negative); Urine Clarity Clear (Clear); Urine Urobilinogen Normal (Normal)
[2021-05-02 21:10] LABS: Bacteria RARE /hpf (None Seen); Squamous Epithelial Cells - UA 0-5 SEEN /hpf (5-10)
[2021-05-02 22:03] LABS: Internal QC Validated? YES +Cl - CLEAR BKGD; Pregnancy, Urine Negative Negative
--- NOTE | 2021-05-02 22:09 | EDS_ITS ---
HPI History of Present Illness Chief Complaint: Abd Pain Informant: patient and parent Narrative Narrative: a few complaints. Patient presents1 she has noted a rash above both ankles since working a new job a few days ago. she was exposed to. She is not sure. She states she did tell them that she was allergic to chemicals but she cannot tell me what chemicals The area does itch and burn slightly. Its only on an area on the lower legs directly above a sock or shoe line. No fevers chills sweats. Nothing makes this better or worse. Patient also presents with lower pelvic discomfort. Its been there for the last month and a half since she had a D&C. It is slowly getting better though. She had had a menstrual cycle since that. It lasted almost 2 weeks. She has not had any discharge. No burning with urination. No change in bowel habits. No change in appetite. No fevers chills or sweats. Nothing really makes this worse. Time is making it better. She has not had follow-up since her D&C. Patient is also concerned about her blood pressure. She states about 8 years ago she was in the hospital for high blood pressure. After that she was on medicines for a while but she is not sure how long. She does not recall the meds. The meds were stopped because she would get lightheaded and pass out from low blood pressure. She has been told quite a bit that she has high blood pressure. She has not seen her private physician for this. She occasionally gets headaches. She has a very mild headache now. Its not sudden onset. It is nowhere near the where she gets. Patient also states that since the D&C she has had some slight depression. She is not suicidal or homicidal. PFSH [facility] Medical History Anxiety Depression Kidney stones Migraines Ovarian cyst no medical history Home Medications NK 05/02/21 [History Last Taken Unknown] Allergy/AdvReac Type Severity Reaction Status Date / Time TAPE Allergy Rash Uncoded 05/02/21 20:43 Surgical History History of section History of cholecystectomy History of umbilical hernia repair Hx of tympanostomy tubes Social History Smoking Status: Never smoker ROS ROS ED Constitutional Constitutional ED: Denies chills, fever(s), sweats or weight loss Eyes Eyes: Denies blurry vision or change in vision ENT ENT ED: Denies rhinorrhea or sore throat Cardiovascular Cardiovascular: Denies chest pain Respiratory/Chest Respiratory/Chest: Denies cough or dyspnea Gastrointestinal Gastrointestinal: Reports abdominal pain; Denies diarrhea, nausea or vomiting Genitourinary Genitourinary ED: Reports other Details: See history of present illness ; Denies dysuria, hematuria or urinary frequency Musculoskeletal Musculoskeletal: Denies back pain or neck pain Integumentary Reports rash Neurologic Neurologic: Reports headache(s); Denies paresthesias or weakness Psychiatric Psychiatric: Reports anxiety and depression; Denies suicidal ideation or suicidal thoughts Endocrine Endocrinology: Denies polydipsia or polyuria Allergic/Immunologic Allergic/Immunologic ED: Denies urticaria EXAM Physical Exam Const Vital Signs: 05/02/21 20:41 05/02/21 22:35 Temperature 97.6 F L Temperature Source Temporal Pulse Rate 92 Respiratory Rate 16 Blood Pressure 159/90 H 154/82 H Blood Pressure Mean 113 106 Pulse Ox 98 Oxygen Delivery Method Room Air Positive well nourished and well developed General Appearance ED: well developed HEENT Negative for trauma or tenderness Eyes PERRL and EOMs intact bilaterally Neck supple Chest Wall inspection of chest normal Resp normal respiratory effort and clear to auscultation bilaterally Cardio regular rate and regular rhythm GI normal to inspection, nondistended, normoactive bowel sounds, non-tender and n on-distended Palpation: soft Back/Spine no CVA tenderness General Back: CVA tenderness Extremity General Extremety ED: Yes other findings General Extremity: other findings Neuro oriented x3 Sensorium / Orientation: alert Psych mental status grossly normal Skin Skin Narrative: Patient has a red slightly raised rash on both lower extremities. It is in a perfect line. It looks like this is right above the edge of a sock. It blanches slightly. Its not petechial. It is not vesicular. It does not have diffuse erythema or warmth. It looks to be a contact dermatitis and not a cellulitis. General Skin Exam: other MDM MDM MDM Narrative Medical decision making narrative: Patient's urinalysis is normal. is negative. Repeat blood pressures are 154/82. Patient's exam is benign. She has been having symptoms going on for 1 to 3 months. Her mom states the biggest concern they have is getting her into see a primary physician. They are now stating that she does not any longer have a primary. I will refer them. I have encouraged her to follow-up with her [facility] physician in [facility]. Patient does also states she has a known left ovarian cyst and that this always hurts. However her pain is not really left- sided. It is very nonfocal in the lower abdomen. It does not change with any activity or eating. Lab Data Attestation: I reviewed the patient's lab results. Labs: Laboratory Results - last 24 hr 05/02/21 05/02/21 20:50 20:50 Urine Color Yellow Urine Clarity Clear Urine pH 5.0 Ur Specific [place] 1.025 Urine Protein 15 H Urine Glucose (UA) Normal Urine Ketones Negative Urine Occult Blood 10 H Urine Nitrite Negative Urine Bilirubin Negative Urine Urobilinogen Normal Ur Leukocyte Esterase Negative Urine RBC 0 SEEN Urine WBC 0 SEEN Ur Squamous Epith Cells 0-5 SEEN Urine Bacteria RARE Urine Mucus 0 SEEN Urine Test Negative Discharge Plan Triage Chief Complaint: Abd Pain ED Provider: Pranay Hinojosa Dx/Rx/DC Orders Clinical Impression: Abdominal pain, Elevated blood pressure reading Instructions: Abdominal Pain, Hypertension Dc Prescriptions: No Action NK RF: 0 Primary Care Provider: Care Physician,No Primary Referrals: Ugo Quarles MD [STAFF PHYSICIAN] - 3-5 Days Care Physician,No Primary [Primary Care Provider] - Disposition Disposition: Home, Self Care
[2021-05-02 22:35] VITALS: BP 154/82
[2021-05-03] MEDS: Acetaminophen 325 MG Tablet 650 MG PO (00:03)
== END 2021-05-03 00:04 | disposition home or self-care (01) ==
PROVIDERS: Emergency Medicine; Emergency Provider Emergency Medicine
DX: R10.30 Lower abdominal pain, unspecified (principal); R21 Rash and other nonspecific skin eruption; R51.9 Headache, unspecified; R03.0 Elevated blood-pressure reading, without diagnosis of hypertension
CPT/HCPCS: 81001; 81025; 99283

== ENCOUNTER 2021-05-10 09:33 | Emergency (ER) | payer MEDICAID, SELFPAY ==
[2021-05-10 09:33] VITALS: BP 187/99; PULSE 79; RESP 16; TEMP 36.3; O2SAT 97; BMI 38.7
--- NOTE | 2021-05-10 09:45 | CT_ITS ---
STUDY: CT ABDOMEN AND PELVIS WITHOUT CONTRAST REASON FOR EXAM: Female, 35 years old. LEft flank pain RADIATION DOSAGE (If Supplied By Facility): CTDIvol = ( 20.95 ) mGy, DLP = ( 1073.96 ) mGycm TECHNIQUE: Transaxial images were obtained from the dome of the diaphragm to the symphysis pubis without oral contrast, and without intravenous contrast. Sagittal and coronal images were reconstructed. Individualized dose optimization techniques were used for this CT. COMPARISON: 10/24/2020 FINDINGS: The visualized lung bases are unremarkable. The visualized portions of the heart are within normal limits. There is decreased attenuation of the liver consistent with steatosis. There are surgical clips in the gallbladder fossa consistent with a prior cholecystectomy. Normal spleen. Normal pancreas. Normal bilateral adrenal glands. Normal right kidney. Normal left kidney. Normal visualized stomach. Normal small intestine. Normal colon. The appendix is visualized and appears normal. Normal abdominal aorta. Normal inferior vena cava. Normal retroperitoneum. Normal urinary bladder. 3.5 cm corpus luteum cyst left ovary. Normal abdominal wall. Normal osseous structures. CT/Abdomen/Pelvis without Cont IMPRESSION: No renal or ureteral stone. 3.5 cm left corpus luteum cyst. Electronically Signed: Noel Castillo MD at 11:11 EDT Tel , Service support ,
--- NOTE | 2021-05-10 09:46 | EDS_ITS ---
HPI History of Present Illness Chief Complaint: Flank Pain Informant: patient Narrative Narrative: Patient is a 35-year-old female who presents to the emergency department for left flank pain. She currently rates the pain as an 8 out of 10. She has had these symptoms over the past week. She was sent in by urgent care for CT scan to evaluate for kidney stone. She states she does have a history of stones in her kidneys. She denies any urinary symptoms. She has been feeling nauseous but not vomiting. She denies any change in bowel movements. The pain does wrap around to the left side of her abdomen. She has been taking Tylenol which does help take the edge off of her pain. She does have a history of abdominal hernia repair, cholecystectomy, sections as well as D&C. She denies any chest pain or shortness of breath. No fevers or chills. PFSH PFS Medical History Anxiety Depression Kidney stones Migraines Ovarian cyst Home Medications NK 05/02/21 [History Last Taken Unknown] Allergy/AdvReac Type Severity Reaction Status Date / Time TAPE Allergy Rash Uncoded 05/10/21 09:35 Surgical History History of section History of cholecystectomy History of umbilical hernia repair Hx of tympanostomy tubes Social History Smoking Status: Never smoker ROS ROS ED Constitutional Constitutional ED: Denies chills or fever(s) ENT ENT ED: Denies epistaxis or rhinorrhea Cardiovascular Cardiovascular: Denies chest pain or palpitations Respiratory/Chest Respiratory/Chest: Denies cough, dyspnea or dyspnea on exertion Gastrointestinal Gastrointestinal: Reports abdominal pain and nausea; Denies diarrhea or vomiting Genitourinary Genitourinary ED: Denies dysuria, hematuria or urinary frequency Musculoskeletal Musculoskeletal: Reports back pain; Denies neck pain Integumentary Denies rash Neurologic Neurologic: Denies dizziness, headache(s) or weakness EXAM Physical Exam Const Vital Signs: 05/10/21 09:33 05/10/21 09:39 05/10/21 11:34 Temperature 97.4 F L Temperature Source Temporal Pulse Rate 79 58 L Respiratory Rate 16 16 Respiratory Effort Normal Non-Labored Respiratory Pattern Normal Blood Pressure 187/99 H 121/67 H Blood Pressure Mean 128 Pulse Ox 97 98 Oxygen Delivery Method Room Air Positive well nourished and well developed General Appearance ED: well developed and NAD HEENT Reports normocephalic and head/scalp atraumatic Eyes PERRL and EOMs intact bilaterally Neck supple Chest Wall inspection of chest normal Resp normal respiratory effort and clear to auscultation bilaterally Auscultation: Negative for rales, rhonchi or wheezes Cardio regular rate, regular rhythm and no murmurs GI normal to inspection, nondistended, normoactive bowel sounds and non-tender Palpation: soft; Negative for guarding or rebound tenderness present Back/Spine Back/Spine Narrative: Mild CVA tenderness on the left. Extremity normal to inspection General Extremety ED: Negative for edema or tenderness General Extremity: Negative for edema Neuro Sensorium / Orientation: alert Motor Exam: strength 5/5 throughout Psych mental status grossly normal Skin no rashes or lesions noted MDM MDM MDM Narrative Medical decision making narrative: Patient presents to the emergency department for left-sided flank pain. She does have a history of kidney stones. On arrival her blood pressure is elevated but otherwise normal vital signs. Will check urinalysis and CT scan of the abdomen/pelvis. She is given a dose of Toradol for symptomatic treatment. Patient CT scan did not show an obvious obstructing stone. There was a left ovarian cyst. Her urine does not show any obvious evidence of infection or blood. On reexamination she is feeling better but still having some discomfort. She will be discharged home in stable condition. She is to follow-up with her PCP. Return precautions are reviewed with her. She understands and is agreeable this plan. All questions were answered. Lab Data Labs: Laboratory Results - last 24 hr 05/10/21 09:44 Urine Color Yellow Urine Clarity Sl. Cloudy Urine pH 7.0 Ur Specific [place] 1.010 Urine Protein 15 H Urine Glucose (UA) Normal Urine Ketones Negative Urine Occult Blood Negative Urine Nitrite Negative Urine Bilirubin Negative Urine Urobilinogen Normal Ur Leukocyte Esterase Negative Urine RBC 0 SEEN Urine WBC 0 SEEN Ur Squamous Epith Cells 0-5 SEEN Urine Bacteria 1+ Urine Mucus 0 SEEN Urine Test Negative Radiography Diagnostic Testing: Radiology Impression Abdomen/Pelvis CT 05/10/21 09:45 IMPRESSION: No renal or ureteral stone. 3.5 cm left corpus luteum cyst. Electronically Signed: Noel Castillo MD at 11:11 EDT Tel , Service support , Discharge Plan Triage Chief Complaint: Flank Pain ED Provider: Marco Palomino Dx/Rx/DC Orders Clinical Impression: Flank pain, Left ovarian cyst Instructions: ED Flank Pain, Uncertain Cause Prescriptions: No Action NK RF: 0 Primary Care Provider: Care Physician,No Primary Referrals: Care Physician,No Primary [Primary Care Provider] - 1-2 Days if not improving Disposition Disposition: Home, Self Care Discharge Date/Time: 05/10/21 11:35
[2021-05-10] MEDS: Ketorolac 30 MG/ML Syringe IM (09:50)
[2021-05-10 09:51] LABS: Mucous, Urine 0 SEEN /hpf (<or=2+); Red Blood Cells-Urine 0 SEEN /hpf (0-5); White Blood Cells 0 SEEN /hpf (0-5)
[2021-05-10 09:53] LABS: Color, Urine Yellow (Yellow); Glucose, Dipstick Normal (Normal); Ketone-Dipstick Negative (Negative); Leukocyte Esterase-Dipstick Negative /ul (Negative); Nitrite-Dipstick Negative (Negative); Occult Blood-Urine Negative /ul (Negative); Protein-Dipstick 15 mg/dl (Negative); Urine Bilirubin Dipstick Negative (Negative); Urine Clarity Sl. Cloudy (Clear); Urine Urobilinogen Normal (Normal)
[2021-05-10 09:55] LABS: Internal QC Validated? YES +Cl - CLEAR BKGD; Pregnancy, Urine Negative Negative
[2021-05-10 09:59] LABS: Bacteria 1+ /hpf (None Seen); Squamous Epithelial Cells - UA 0-5 SEEN /hpf (5-10)
[2021-05-10 11:34] VITALS: BP 121/67; PULSE 58; RESP 16; O2SAT 98
== END 2021-05-10 11:35 | disposition home or self-care (01) ==
PROVIDERS: Emergency Provider Emergency Medicine
DX: R10.9 Unspecified abdominal pain (principal); N83.202 Unspecified ovarian cyst, left side
CPT/HCPCS: 74176; 81001; 81025; 87086; 87088; 96372; 99283

== ENCOUNTER → 2021-05-23 12:40 | Outpatient (CLI) | payer MEDICAID, SELFPAY ==
--- NOTE | 2021-05-23 12:45 | MRI_ITS ---
EXAM: MR HEAD WITHOUT AND WITH INTRAVENOUS CONTRAST : 1985 CLINICAL INDICATION: OPTIC DISC EDEMA,PAPILLEDEMA,VENOUS SINUS THROMBOSIS, RECENT PREG, HX PSEUDOTUMOR CEREBR. TECHNIQUE: Multiplanar and multisequence MR images of the brain were obtained without and with intravenous contrast. This report was created using [employer] report [employer] technology. CONTRAST: IV DOTAREM 22 ML COMPARISON: CT brain July 25, 2020 FINDINGS: BRAIN AND EXTRA-AXIAL SPACES: Unremarkable. No intra- or extra-axial hemorrhage. No evidence of acute infarct. No intracranial mass or mass effect. There is preservation of the sheikh/white matter interface. Posterior fossa structures are unremarkable. Ventricles are appropriate for age. No hydrocephalus. Basal cisterns are patent. No abnormal contrast enhancement SELLA: Unremarkable. Normal sella turcica, pituitary gland, infundibular stalk, optic chiasm and hypothalamus. AUDITORY SYSTEM: Unremarkable. The internal auditory canals are patent. BONES/JOINTS: Unremarkable. No discrete lytic or blastic abnormalities. SINUSES: Mucosal thickening noted within the paranasal sinuses. MASTOID AIR CELLS: Unremarkable as visualized. Clear. ORBITS: Unremarkable as visualized. Both globes, extraocular muscles, optic nerves and retrobulbar fat appear unremarkable. VASCULATURE: Unremarkable as visualized. Normal flow voids in the major intracranial circulation. MRI/Brain W/WO Contrast IMPRESSION: No acute abnormality. at 1546 Reported and signed by: Jesús Wakefield MD Electronically Signed: Jesús Wakefield MD at 15:45 EDT Tel , Service support ,
== END ==
PROVIDERS: Referring Provider Ophthalmology; Visit Provider Ophthalmology
DX: H47.10 Unspecified papilledema (principal); Z86.69 Personal history of other diseases of the nervous system and sense organs
CPT/HCPCS: 70553

== ENCOUNTER 2021-06-23 08:31 | Emergency (ER) | payer MEDICAID, SELFPAY ==
[2021-06-23 08:32] VITALS: BP 152/107; PULSE 76; RESP 16; TEMP 36.7; BMI 37.9
--- NOTE | 2021-06-23 08:45 | EKG12_ITS ---
Test Reason : PALP Blood Pressure : / mmHG Vent. Rate : 072 BPM Atrial Rate : 072 BPM P-R Int : 132 ms QRS Dur : 088 ms QT Int : 394 ms P-R-T Axes : 057 064 035 degrees QTc Int : 431 ms Normal sinus rhythm with sinus arrhythmia Normal ECG Confirmed by ARACELY YOO, RAOUL ([id number]), desk editor EMILIANO MARTINEZ ([id number]) on 06/28/2021 6:45:40 AM Referred By: RENETTA Confirmed By:RAOUL JESSICA MD
[2021-06-23 08:58] LABS: Absolute Lymphocyte Count 3.14 X10^3/uL (0.83-4.51); Absolute Neutrophil Count 4.9 X10^3/uL (2.0-7.7); Basophil# 0.07 X10^3/uL; Basophil% 0.8 % (0-1); Eosinophil# 0.25 X10^3/uL; Eosinophils% 2.8 % (0-5); Hematocrit 41.4 % (37-47); Hemoglobin 14.1 g/dL (12.0-15.0); Lymphocyte # 3.14 X10^3/ul (0.83-4.51); Lymphocyte % 35.1 % (19-41); Mean Corp Hgb Conc 34.1 g/dL (32-36); Mean Corpuscular Hgb 27.4 pg (27.0-32.0); Mean Corpuscular Volume 80.4 fL (81-99); Mean Platelet Vol. 9.3 fl (6.2-12.0); Monocyte# 0.54 X10^3/uL; NRBC Flagged by Analyzer 0 % (0-5); Neutrophil # 4.92 X10^3/uL (2.7-7.7); Neutrophil % 55.1 % (47-70); Platelet Count 318 K/mm3 (150-450); RBC Distribution Width CV 13.9 % (11.6-14.6); RBC Distribution Width SD 40.7 fl (35.1-43.9); Red Blood Count 5.15 M/mm3 (4.2-5.4); White Blood Count 8.9 K/mm3 (4.4-11.0)
[2021-06-23 08:59] VITALS: O2SAT 99
--- NOTE | 2021-06-23 09:10 | RAD_ITS ---
STUDY: X-RAY CHEST REASON FOR EXAM: Female, 35 years old. Chest pain TECHNIQUE: Single AP portable view of the chest. COMPARISON: Comparison is made with prior study dated 03/26/2019. FINDINGS: EKG electrodes are seen. The lungs are clear and expanded. There is no demonstrated pleural abnormality. Normal size heart. Normal mediastinum and rolando. Normal visualized pulmonary arteries. Normal visualized aortic arch and descending thoracic aorta. Normal visualized thoracic spine. Normal visualized ribs, clavicles, and shoulders. There is no demonstrated abnormality of the visualized soft tissue structures of the upper abdomen. RAD/Chest 1 View (Portable) IMPRESSION: Normal x-ray examination of the chest. Electronically Signed: Molina Luis MD at 9:23 EDT , Service support ,
--- NOTE | 2021-06-23 09:12 | EX.ED.DYSGE1 ---
HPI History of Present Illness Chief Complaint: Palpitations Narrative Narrative: The patient presents complaining of palpitations that she has had for years her heart seems to race than slow down she has been seen by her primary care physicians by cardiology she has had outpatient work-up with what appears to be echocardiograms cardiac monitoring she was never told she had a significant cardiovascular pro process that required intervention, she is history of ME PE or DVT she is had a recurrence of these palpitations and she presents for evaluation, she had no fever no cough, no Covid exposures nonvaccinated review of systems otherwise negative these are very similar symptoms to what she has had in the past [facility] Medical History Anxiety Depression Kidney stones Migraines Ovarian cyst Home Medications acetazolamide 500 mg PO DAILY 06/23/21 [History Last Taken Unknown] Allergy/AdvReac Type Severity Reaction Status Date / Time TAPE Allergy Rash Uncoded 05/10/21 09:35 Surgical History History of section History of cholecystectomy History of umbilical hernia repair Hx of tympanostomy tubes Social History Smoking Status: Never smoker ROS ROS ED ROS Narrative Review of systems are negative except for occasional palpitations Constitutional Constitutional ED: Reports subjective, sweats and other; Denies chills, fever(s) or weight loss Eyes Eyes: Denies blurry vision or change in vision ENT ENT ED: Denies ear pain Cardiovascular Cardiovascular: Reports palpitations; Denies chest pain Respiratory/Chest Respiratory/Chest: Denies dyspnea Gastrointestinal Gastrointestinal: Denies abdominal pain, nausea or vomiting Genitourinary Genitourinary ED: Denies dysuria or hematuria Musculoskeletal Musculoskeletal: Denies arthralgias or myalgias Integumentary Reports rash; Denies abscess Neurologic Neurologic: Denies weakness Psychiatric Psychiatric: Denies anxiety or depression Endocrine Endocrinology: Denies polydipsia or polyuria Allergic/Immunologic Allergic/Immunologic ED: Denies urticaria EXAM Physical Exam Const Vital Signs: 06/23/21 08:32 06/23/21 08:59 Temperature 98.0 F Temperature Source Temporal Pulse Rate 76 Respiratory Rate 16 Blood Pressure 152/107 H Blood Pressure Mean 122 Pulse Ox 99 Oxygen Delivery Method Room Air Positive well developed General Appearance ED: well developed HEENT Reports normocephalic Negative for trauma Eyes EOMs intact bilaterally Neck supple Chest Wall inspection of chest normal Resp normal respiratory effort Cardio regular rate GI non-tender and non-distended Back/Spine Back/Spine Narrative: unremarkable Extremity normal to inspection Neuro oriented x3 and CN's II-XII intact bilaterally Sensorium / Orientation: alert Psych mental status grossly normal Skin no rashes or lesions noted MDM MDM MDM Narrative Medical decision making narrative: Patient's vital signs are unremarkable she is in no distress her EKG shows a sinus rhythm rate of 72 no acute injury pattern, and reviewing the case history with her this is a chronic recurring problem she had prior negative work-up with cardiology it is unclear why she is having recurrent sense of palpitations. She also reports that she has palpitations ongoing for unspecified causes her follow-up appointments with outpatient vitals is generally been negative at this time given all the above she undergo ED evaluation Patient's ED screening evaluation with x-rays all labs are generally unremarkable she was reports, review of the Holter cardiac monitoring had in the past showed PACs cardiac echo report showed really unremarkable findings see those reports during her stay in the emergency department she has been in a sinus rhythm she is had no palpitations no recurrence of any type symptoms Discussed this with her, discussed inpatient versus outpatient management she is comfortable with discharge home to follow-up with her outpatient providers and 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 Lab Data Labs: Laboratory Results - last 24 hr 06/23/21 06/23/21 06/23/21 08:50 08:50 08:50 WBC 8.9 RBC 5.15 Hgb 14.1 Hct 41.4 MCV 80.4 L MCH 27.4 MCHC 34.1 RDW Std Deviation 40.7 RDW Coeff of Theresa 13.9 Plt Count 318 MPV 9.3 Immature Gran % (Auto) 0.200 Neut % (Auto) 55.1 Lymph % (Auto) 35.1 [place] % (Auto) 6.0 Eos % (Auto) 2.8 Baso % (Auto) 0.8 Absolute Neuts (auto) 4.9 Absolute Lymphs (auto) 3.14 Nucleated RBC % 0 Sodium 142 Potassium 3.6 Chloride 113 H Carbon Dioxide 22.0 Anion Gap 7 BUN 13 Creatinine 1.01 Estim Creat Clear Calc 74.17 Est GFR (MDRD) Af Amer 81 Est GFR (MDRD) Non-Af 67 BUN/Creatinine Ratio 12.9 Glucose 98 Calcium 8.8 Troponin I High Sens 5 TSH 3.03 Thyroxine (T4) 10.1 Serum , Qual NEGATIVE Radiography Diagnostic Testing: Clinical Impression(s) from Imaging Studies Chest X-Ray 06/23/21 09:10 IMPRESSION: Normal x-ray examination of the chest. 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
[2021-06-23] MEDS: Aspirin 81 MG TAB.CHEW 324 MG PO (09:19)
[2021-06-23] MEDS: 0.9% Normal Saline 1,000 ML 150 ML IV (09:19)
[2021-06-23 09:21] LABS: Internal QC Validated? YES +Cl - CLEAR BKGD; Pregnancy, Serum, hCG Quali. NEGATIVE Negative
[2021-06-23 09:25] LABS: Anion Gap 7 (5-15); BUN 13 mg/dL (7-18); BUN/Creat Ratio 12.9 RATIO (10-20); Calcium,Total 8.8 mg/dL (8.5-10.1); Chloride 113 mmol/L (98-107); Creatinine, Serum 1.01 mg/dL (0.55-1.02); EST Glomerular Filtration Rate 67 mL/min (>60); Est Glom Filt Rate - Afr Amer 81 mL/min (>60); Estimated Creatinine Clearance 74.17 ml/min; Glucose 98 mg/dL (74-106); Potassium 3.6 mmol/L (3.5-5.1); Sodium Level 142 mmol/L (136-145); T4 Total, Thyroxin 10.1 ug/dL (4.8-13.9); Thyroid Stim Hormone (TSH) 3.03 uIU/mL (0.358-3.74); Troponin-I HS 5 pg/mL (3.0-54.0)
[2021-06-23 09:42] VITALS: BP 137/83; PULSE 60; RESP 14; O2SAT 100
[2021-06-23 10:39] VITALS: BP 137/79; PULSE 67
== END 2021-06-23 11:04 | disposition home or self-care (01) ==
PROVIDERS: Emergency Provider Emergency Medicine
DX: R00.2 Palpitations (principal); Z79.899 Other long term (current) drug therapy
CPT/HCPCS: 71045; 80048; 84436; 84443; 84484; 84703; 85025; 93005; 96360; 96361; 99285; J7030; A4216

== ENCOUNTER 2021-08-09 10:35 | Emergency (ER) | payer MEDICAID, SELFPAY ==
[2021-08-09 10:36] VITALS: BP 162/103; PULSE 97; RESP 16; TEMP 36.2; O2SAT 100; BMI 38.7
--- NOTE | 2021-08-09 12:12 | CT_ITS ---
STUDY: CT ABDOMEN AND PELVIS WITHOUT CONTRAST REASON FOR EXAM: Female, 35 years old. Left flank pain. RADIATION DOSAGE (If Supplied By Facility): CTDIvol = ( 21.19 ) mGy, DLP = ( 1138.34 ) mGycm TECHNIQUE: Transaxial images were obtained from the dome of the diaphragm to the symphysis pubis without oral contrast, and without intravenous contrast. Sagittal and coronal images were reconstructed. Individualized dose optimization techniques were used for this CT. COMPARISON: Comparison is made with prior study dated 05/10/2021. FINDINGS: The visualized lung bases are unremarkable. The visualized portions of the heart are within normal limits. Normal liver. There are surgical clips in the gallbladder fossa consistent with a prior cholecystectomy. Normal spleen. Normal pancreas. Normal bilateral adrenal glands. Normal right kidney. Mild degree of the left hydronephrosis and left hydroureter. No obstructive calculus is seen at this time. Normal visualized stomach. Normal small intestine. Normal colon. The appendix is visualized and appears normal. Normal abdominal aorta. Normal inferior vena cava. Normal retroperitoneum. Normal urinary bladder. There is a 4 cm x 3.7 cm cyst in the left ovary. Follicles are seen in the right ovary. There is a small umbilical hernia containing fat. Normal osseous structures. CT/Abdomen/Pelvis without Cont IMPRESSION: 4 cm x 3.7 cm cyst in the left ovary. Mild degree of left hydronephrosis and proximal left hydroureter with no evidence of obstructive uropathy at this time. Electronically Signed: Molina Luis MD at 13:20 EST , Service support ,
[2021-08-09] MEDS: 0.9% Normal Saline 1,000 ML 1000 ML IV (12:18)
[2021-08-09] MEDS: Ondansetron 4 MG/2 ML Vial IV (12:18)
[2021-08-09] MEDS: Morphine 4 MG/ML Syringe IV ×2 (12:18→15:39)
--- NOTE | 2021-08-09 12:19 | EX.ED.DYSGE1 ---
HPI History of Present Illness Chief Complaint: Flank Pain Informant: patient Onset/Context/Timing Onset: Today Context: Sudden Onset Timing: Continuous Quality: Sharp, pressure Location: Left flank and abdomen Worsened by: Nothing Relieved by: Nothing Narrative Narrative: Patient presents with back and left flank pain that began today. Patient states it began approximately 2 hours prior to arrival. Patient states the pain is sharp and pressure-like. Patient states it is over the left flank, back, and abdomen. Patient states the pain radiates into her vaginal area. Patient states it has been constant. Patient states nothing makes it worse and nothing makes it better. Patient admits to nausea but denies any vomiting. Patient denies any fevers or chills. PFSH PFS Medical History Anxiety Depression Kidney stones Migraines Ovarian cyst Home Medications acetazolamide 500 mg PO BID 06/23/21 [History Last Taken Unknown] hydrocodone-acetaminophen 1 tab PO Q6H PRN PRN 3 Days #10 tablet 08/09/21 [Rx Last Taken Unknown] Allergy/AdvReac Type Severity Reaction Status Date / Time TAPE Allergy Rash Uncoded 08/09/21 10:37 Surgical History History of section History of cholecystectomy History of umbilical hernia repair Hx of tympanostomy tubes Social History Smoking Status: Never smoker ROS ROS ED Constitutional Constitutional ED: Denies chills or fever(s) Eyes Eyes: Denies blurry vision or change in vision ENT ENT ED: Denies rhinorrhea or sore throat Cardiovascular Cardiovascular: Denies chest pain or palpitations Respiratory/Chest Respiratory/Chest: Denies cough or dyspnea Gastrointestinal Gastrointestinal: Reports abdominal pain and nausea; Denies vomiting Genitourinary Genitourinary ED: Denies dysuria or hematuria Musculoskeletal Musculoskeletal: Reports back pain; Denies neck pain Integumentary Denies abscess or rash Neurologic Neurologic: Denies headache(s) or weakness Allergic/Immunologic Allergic/Immunologic ED: Denies mouth swelling or urticaria EXAM Physical Exam Const Vital Signs: 08/09/21 10:36 08/09/21 15:07 Temperature 97.2 F L Temperature Source Temporal Pulse Rate 97 71 Respiratory Rate 16 16 Blood Pressure 162/103 H 128/78 H Blood Pressure Mean 122 94 Pulse Ox 100 100 Oxygen Delivery Method Room Air Room Air Positive well nourished, well developed and obese General Appearance ED: well developed Nutritional Appearance: obese HEENT Reports moist mucous membranes Neck supple and no JVD Resp normal respiratory effort and clear to auscultation bilaterally Cardio regular rate, regular rhythm and no murmurs GI normal to inspection, nondistended, normoactive bowel sounds Palpation: soft and tender LLQ and LUQ; Negative for guarding or rebound tenderness present Back/Spine General Back: CVA tenderness left Extremity normal to inspection General Extremety ED: Negative for edema or tenderness General Extremity: Negative for edema Neuro oriented x3, CN's II-XII intact bilaterally and no sensory deficits noted Sensorium / Orientation: alert Motor Exam: strength 5/5 throughout Psych mental status grossly normal Skin no rashes or lesions noted MDM MDM MDM Narrative Medical decision making narrative: Patient was given IV fluids, morphine, and Zofran. CBC shows a slight leukocytosis of 11.3. Comprehensive metabolic profile was essentially within normal limits. Urinalysis shows occult blood of 250 with greater than 100 red blood cells. There were 5-10 epithelial cells. There is no evidence of urinary tract infection. Serum hCG was negative. CT scan of the abdomen pelvis was obtained. There is a 4 x 3.7 cm cyst of the left ovary. There is left hydronephrosis and hydroureter but there is no ureteral obstruction noted. There is no stone noted. Patient was advised of her findings. Given her hematuria and hydronephrosis and hydroureter, there may be a ureteral stone that is not visualized on the CT scan that does occur up to 3% of the time. Patient was given a another dose of morphine here. Patient was given a prescription for Odonnell. Patient was given a referral for urology follow-up. Patient was instructed to return if worse in any way. Patient understood and was agreeable with the plan. All questions were answered. Lab Data Attestation: I reviewed the patient's lab results. Labs: Laboratory Results - last 24 hr 08/09/21 08/09/21 08/09/21 11:15 11:55 11:55 WBC 11.7 H RBC 5.43 H Hgb 14.9 Hct 43.9 MCV 80.8 L MCH 27.4 MCHC 33.9 RDW Std Deviation 40.5 RDW Coeff of Theresa 14.0 Plt Count 308 MPV 9.4 Immature Gran % (Auto) 0.300 Neut % (Auto) 68.3 Lymph % (Auto) 22.4 [place] % (Auto) 7.0 Eos % (Auto) 1.4 Baso % (Auto) 0.6 Absolute Neuts (auto) 8.0 H Absolute Lymphs (auto) 2.61 Nucleated RBC % 0 Sodium 139 Potassium 3.5 Chloride 111 H Carbon Dioxide 21.0 Anion Gap 7 BUN 15 Creatinine 0.98 Estim Creat Clear Calc 76.44 Est GFR (MDRD) Af Amer 83 Est GFR (MDRD) Non-Af 69 BUN/Creatinine Ratio 15.2 Glucose 86 Calcium 8.9 Total Bilirubin 0.40 AST 11 L ALT 28 Alkaline Phosphatase 106 Total Protein 8.9 H Albumin 3.8 Globulin 5.1 H Albumin/Globulin Ratio 0.7 L Serum , Qual Urine Color Yellow Urine Clarity Sl. Cloudy Urine pH 6.5 Ur Specific [place] 1.015 Urine Protein 30 H Urine Glucose (UA) Normal Urine Ketones Negative Urine Occult Blood 250 H Urine Nitrite Negative Urine Bilirubin Negative Urine Urobilinogen Normal Ur Leukocyte Esterase Negative Urine RBC > 100 SEEN Urine WBC 0 SEEN Ur Squamous Epith Cells 5-10 SEEN Urine Bacteria 0 SEEN Urine Mucus 0 SEEN 08/09/21 11:55 WBC RBC Hgb Hct MCV MCH MCHC RDW Std Deviation RDW Coeff of Theresa Plt Count MPV Immature Gran % (Auto) Neut % (Auto) Lymph % (Auto) [place] % (Auto) Eos % (Auto) Baso % (Auto) Absolute Neuts (auto) Absolute Lymphs (auto) Nucleated RBC % Sodium Potassium Chloride Carbon Dioxide Anion Gap BUN Creatinine Estim Creat Clear Calc Est GFR (MDRD) Af Amer Est GFR (MDRD) Non-Af BUN/Creatinine Ratio Glucose Calcium Total Bilirubin AST ALT Alkaline Phosphatase Total Protein Albumin Globulin Albumin/Globulin Ratio Serum , Qual NEGATIVE Urine Color Urine Clarity Urine pH Ur Specific [place] Urine Protein Urine Glucose (UA) Urine Ketones Urine Occult Blood Urine Nitrite Urine Bilirubin Urine Urobilinogen Ur Leukocyte Esterase Urine RBC Urine WBC Ur Squamous Epith Cells Urine Bacteria Urine Mucus Radiography Diagnostic Testing: Clinical Impression(s) from Imaging Studies Abdomen/Pelvis CT 08/09/21 12:12 IMPRESSION: 4 cm x 3.7 cm cyst in the left ovary. Mild degree of left hydronephrosis and proximal left hydroureter with no evidence of obstructive uropathy at this time. Electronically Signed: Molina Luis MD at 13:20 EST , Service support , Discharge Plan Triage Chief Complaint: Flank Pain ED Provider: Pranav Biggs Dx/Rx/DC Orders Clinical Impression: Renal colic on left side, Cyst of left ovary Instructions: ED Ovarian Cyst, ED Kidney Stone w/ Colic Prescriptions: New hydrocodone-acetaminophen [hydrocodone-acetaminophen] 1 TABLET tablet 1 tab PO Q6H PRN PRN (Reason: Pain) 3 Days Qty: 10 RF: 0 No Action acetazolamide 500 mg capsule, extended release 500 mg PO BID RF: 0 Primary Care Provider: Care Physician,No Primary Referrals: Leticia Ren MD [STAFF PHYSICIAN] - 5-7 Days Care Physician,No Primary [Primary Care Provider] - Disposition Disposition: Home, Self Care
[2021-08-09 12:20] LABS: Absolute Lymphocyte Count 2.61 X10^3/uL (0.83-4.51); Basophil# 0.07 X10^3/uL; Basophil% 0.6 % (0-1); Eosinophil# 0.16 X10^3/uL; Eosinophils% 1.4 % (0-5); Hematocrit 43.9 % (37-47); Hemoglobin 14.9 g/dL (12.0-15.0); Lymphocyte # 2.61 X10^3/ul (0.83-4.51); Lymphocyte % 22.4 % (19-41); Mean Corp Hgb Conc 33.9 g/dL (32-36); Mean Corpuscular Hgb 27.4 pg (27.0-32.0); Mean Corpuscular Volume 80.8 fL (81-99); Mean Platelet Vol. 9.4 fl (6.2-12.0); Monocyte# 0.82 X10^3/uL; NRBC Flagged by Analyzer 0 % (0-5); Neutrophil # 7.96 X10^3/uL (2.7-7.7); Neutrophil % 68.3 % (47-70); Platelet Count 308 K/mm3 (150-450); RBC Distribution Width SD 40.5 fl (35.1-43.9); Red Blood Count 5.43 M/mm3 (4.2-5.4); White Blood Count 11.7 K/mm3 (4.4-11.0)
[2021-08-09 12:28] LABS: Internal QC Validated? YES +Cl - CLEAR BKGD; Pregnancy, Serum, hCG Quali. NEGATIVE Negative
[2021-08-09 12:32] LABS: Bacteria 0 SEEN /hpf (None Seen); Mucous, Urine 0 SEEN /hpf (<or=2+); White Blood Cells 0 SEEN /hpf (0-5)
[2021-08-09 12:33] LABS: Color, Urine Yellow (Yellow); Glucose, Dipstick Normal (Normal); Ketone-Dipstick Negative (Negative); Leukocyte Esterase-Dipstick Negative /ul (Negative); Nitrite-Dipstick Negative (Negative); Occult Blood-Urine 250 /ul (Negative); Protein-Dipstick 30 mg/dl (Negative); Specific Gravity, Urine 1.015 (1.002-1.030); Urine Bilirubin Dipstick Negative (Negative); Urine Clarity Sl. Cloudy (Clear); Urine Urobilinogen Normal (Normal); Urine pH 6.5 (5.0 - 8.0)
[2021-08-09 12:33] LABS: ALB/GLOB Ratio 0.7 RATIO (0.9-2.4); AST(SGOT) 11 U/L (15-37); Alanine Aminotransfer ALT/SGPT 28 U/L (13-56); Albumin, Serum 3.8 g/dL (3.2-5.0); Alkaline Phosphatase 106 U/L (45-117); Anion Gap 7 (5-15); BUN 15 mg/dL (7-18); BUN/Creat Ratio 15.2 RATIO (10-20); Calcium,Total 8.9 mg/dL (8.5-10.1); Chloride 111 mmol/L (98-107); Creatinine, Serum 0.98 mg/dL (0.55-1.02); EST Glomerular Filtration Rate 69 mL/min (>60); Est Glom Filt Rate - Afr Amer 83 mL/min (>60); Estimated Creatinine Clearance 76.44 ml/min; Globulin 5.1 g/dL (2.2-4.2); Glucose 86 mg/dL (74-106); Potassium 3.5 mmol/L (3.5-5.1); Protein, Total 8.9 g/dL (6.4-8.2); Sodium Level 139 mmol/L (136-145)
[2021-08-09 12:38] LABS: Red Blood Cells-Urine > 100 SEEN /hpf (0-5); Squamous Epithelial Cells - UA 5-10 SEEN /hpf (5-10)
[2021-08-09 15:07] VITALS: BP 128/78; PULSE 71; RESP 16; O2SAT 100
== END 2021-08-09 16:06 | disposition home or self-care (01) ==
PROVIDERS: Emergency Provider Emergency Medicine
DX: N23 Unspecified renal colic (principal); N83.202 Unspecified ovarian cyst, left side; E66.9 Obesity, unspecified; Z79.899 Other long term (current) drug therapy
CPT/HCPCS: 74176; 80053; 81001; 84703; 85025; 96361; 96374; 96375; 96376; 99285; J7030; A4216; J2405

== ENCOUNTER 2021-11-04 13:44 | Emergency (ER) | payer MEDICAID, SELFPAY ==
[2021-11-04 13:46] VITALS: BP 164/106; PULSE 86; RESP 16; TEMP 36.4; O2SAT 97; BMI 22.4
--- NOTE | 2021-11-04 13:52 | EKG12_ITS ---
Test Reason : MEDICAL CLEARANCE Blood Pressure : / mmHG Vent. Rate : 069 BPM Atrial Rate : 069 BPM P-R Int : 128 ms QRS Dur : 086 ms QT Int : 406 ms P-R-T Axes : 026 056 031 degrees QTc Int : 435 ms Normal sinus rhythm Normal ECG Confirmed by ARACELY YOO, RAOUL ([id number]), health editor EMILIANO MARTINEZ ([id number]) on 11/07/2021 12:13:32 PM Referred By: SERENA Confirmed By:RAOUL JESSICA MD
--- NOTE | 2021-11-04 14:20 | EDS_ITS ---
HPI HPI - Psych History of Present Illness Chief Complaint: Suicidal Informant: patient Narrative Narrative: Patient presents with suicidal thoughts. She does have a history of PTSD, anxiety and depression along with what sounds like occasional hallucinations. No diagnosis of schizophrenia though. She used to be in counseling on medicines but has been sometime. She thinks it has been getting worse over the last 6 months as she miscarried when she was 13 weeks . Today she has been having more panic attacks. She thought of jumping from a bridge. She just thinks this is getting worse and worse. Her only medical complaint is that she has had some intermittent nausea for the last week. She is not sure if this is due to the anxiety or if she could be . 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 No abdominal pain. Only medication is acetazolamide for her pseudotumor cerebri. PFSH PFSH Medical History Anxiety Depression Kidney stones Migraines Ovarian cyst Home Medications acetazolamide 500 mg PO BID 06/23/21 [History Last Taken Unknown] hydrocodone-acetaminophen 1 tab PO Q6H PRN PRN 3 Days #10 tablet 08/09/21 [Rx Last Taken Unknown] Allergy/AdvReac Type Severity Reaction Status Date / Time TAPE Allergy Rash Uncoded 08/09/21 10:37 Surgical History History of section History of cholecystectomy History of umbilical hernia repair Hx of tympanostomy tubes Social History Smoking Status: Never smoker ROS ROS ED Constitutional Constitutional ED: Denies fever(s) or subjective Eyes Eyes: Denies blurry vision ENT ENT ED: Denies rhinorrhea Cardiovascular Cardiovascular: Denies chest pain or palpitations Respiratory/Chest Respiratory/Chest: Denies cough or dyspnea Gastrointestinal Gastrointestinal: Reports nausea; Denies abdominal pain or vomiting Genitourinary Genitourinary ED: Denies dysuria Musculoskeletal Musculoskeletal: Denies myalgias Integumentary Denies rash Neurologic Neurologic: Denies headache(s) Psychiatric Psychiatric: Reports anxiety, depression and suicidal thoughts Endocrine Endocrinology: Denies polyuria Hematologic/Lymphatic Hematologic/Lymphatic: Denies easy bleeding or easy bruising Allergic/Immunologic Allergic/Immunologic ED: Denies urticaria EXAM Physical Exam Const Vital Signs: 11/04/21 13:46 Temperature 97.5 F L Temperature Source Temporal Pulse Rate 86 Respiratory Rate 16 Blood Pressure 164/106 H Blood Pressure Mean 125 Pulse Ox 97 Oxygen Delivery Method Room Air Positive well nourished and well developed General Appearance ED: well developed and NAD HEENT Reports moist mucous membranes Eyes PERRL Neck supple Resp normal respiratory effort and clear to auscultation bilaterally Auscultation: Negative for rales, rhonchi or wheezes Cardio Rate: regular rate Rhythm: regular rhythm GI non-tender Palpation: soft Back/Spine no CVA tenderness Extremity General Extremety ED: Negative for edema or tenderness General Extremity: Negative for edema Neuro oriented x3 Sensorium / Orientation: alert Psych Psych Narrative: Patient is awake and alert. She is tearful. She does make reasonable eye contact. No sign of flight of ideas. No indication of hallucinations. Skin Rashes: no rashes MDM MDM MDM Narrative Medical decision making narrative: Blood work shows normal CBC. Electrolytes are unremarkable. Alcohol is negative. is negative. Drug screen is pending. Patient is medically cleared for psychiatric evaluation and admission if needed. Lab Data Attestation: I reviewed the patient's lab results. Labs: Laboratory Results - last 24 hr 11/04/21 11/04/21 11/04/21 15:00 15:00 15:00 WBC 10.5 RBC 5.18 Hgb 14.2 Hct 41.4 MCV 79.9 L MCH 27.4 MCHC 34.3 RDW Std Deviation 37.7 RDW Coeff of Theresa 13.2 Plt Count 305 MPV 9.6 Immature Gran % (Auto) 0.300 Neut % (Auto) 63.1 Lymph % (Auto) 28.7 [place] % (Auto) 6.1 Eos % (Auto) 1.2 Baso % (Auto) 0.6 Absolute Neuts (auto) 6.6 Absolute Lymphs (auto) 3.00 Nucleated RBC % 0 Sodium 141 Potassium 3.5 Chloride 110 H Carbon Dioxide 24.0 Anion Gap 7 BUN 14 Creatinine 0.86 Estim Creat Clear Calc 87.10 Est GFR (MDRD) Af Amer 97 Est GFR (MDRD) Non-Af 80 BUN/Creatinine Ratio 16.3 Glucose 97 Calcium 8.5 Serum , Qual Ur Drug Screen Comment Ethyl Alcohol < 3.0 11/04/21 11/04/21 15:00 15:50 WBC RBC Hgb Hct MCV MCH MCHC RDW Std Deviation RDW Coeff of Theresa Plt Count MPV Immature Gran % (Auto) Neut % (Auto) Lymph % (Auto) [place] % (Auto) Eos % (Auto) Baso % (Auto) Absolute Neuts (auto) Absolute Lymphs (auto) Nucleated RBC % Sodium Potassium Chloride Carbon Dioxide Anion Gap BUN Creatinine Estim Creat Clear Calc Est GFR (MDRD) Af Amer Est GFR (MDRD) Non-Af BUN/Creatinine Ratio Glucose Calcium Serum , Qual NEGATIVE Ur Drug Screen Comment Ethyl Alcohol Discharge Plan Triage Chief Complaint: Suicidal ED Provider: Pranay Hinojosa Dx/Rx/DC Orders Clinical Impression: Major depression, Suicidal ideation Prescriptions: No Action acetazolamide 500 mg capsule, extended release 500 mg PO BID RF: 0 hydrocodone-acetaminophen [hydrocodone-acetaminophen] 1 TABLET tablet 1 tab PO Q6H PRN PRN (Reason: Pain) 3 Days Qty: 10 RF: 0 Primary Care Provider: Care Physician,No Primary Referrals: Care Physician,No Primary [Primary Care Provider] - Disposition Disposition: Psychiatric Hospital or Unit
[2021-11-04 15:12] LABS: Absolute Neutrophil Count 6.6 X10^3/uL (2.0-7.7); Basophil# 0.06 X10^3/uL; Basophil% 0.6 % (0-1); Eosinophil# 0.13 X10^3/uL; Eosinophils% 1.2 % (0-5); Hematocrit 41.4 % (37-47); Hemoglobin 14.2 g/dL (12.0-15.0); Lymphocyte % 28.7 % (19-41); Mean Corp Hgb Conc 34.3 g/dL (32-36); Mean Corpuscular Hgb 27.4 pg (27.0-32.0); Mean Corpuscular Volume 79.9 fL (81-99); Mean Platelet Vol. 9.6 fl (6.2-12.0); Monocyte# 0.64 X10^3/uL; Monocyte% 6.1 % (0-10); NRBC Flagged by Analyzer 0 % (0-5); Neutrophil % 63.1 % (47-70); Platelet Count 305 K/mm3 (150-450); RBC Distribution Width CV 13.2 % (11.6-14.6); RBC Distribution Width SD 37.7 fl (35.1-43.9); Red Blood Count 5.18 M/mm3 (4.2-5.4); White Blood Count 10.5 K/mm3 (4.4-11.0)
[2021-11-04 15:32] LABS: Anion Gap 7 (5-15); BUN 14 mg/dL (7-18); BUN/Creat Ratio 16.3 RATIO (10-20); Calcium,Total 8.5 mg/dL (8.5-10.1); Chloride 110 mmol/L (98-107); Creatinine, Serum 0.86 mg/dL (0.55-1.02); EST Glomerular Filtration Rate 80 mL/min (>60); Est Glom Filt Rate - Afr Amer 97 mL/min (>60); Glucose 97 mg/dL (74-106); Potassium 3.5 mmol/L (3.5-5.1); Sodium Level 141 mmol/L (136-145)
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
--- NOTE | 2021-11-04 15:52 | CHAPLAIN ---
Type of Pastoral Visit _x__ Initial Visit ___ Follow-up Visit ___ On-call Visit ___ General Patient Visit ___ Spiritual Assessment ___ Family Conference ___ Bereavement ___ Rapid Response ___ Code Blue ___ Other (describe below) Pastoral Care Referral From ___ Patient ___ Family ___ Nurse ___ Physician _x__ Rug Sizer ___ Ethical Hacker ___ Other (describe below) Sacrament/Intervention _x__ Active listening ___ Anointing ___ Tenriism ___ Bereavement ___ Communion _x__ Mayra exploration ___ _x__ Life review _x__ Prayer ___ Reconciliation ___ Sacrament of Sick _x__ Supportive presence ___ Wedding ___ Other (describe below) Pastoral Comments patient came to ED with suicidal ideation and was to be evaluated; SW offered spiritual care support to patient and she agreed to talk with this sales and service change leader; pt open about her feelings, life experiences, and recent losses in her life; pt identifies as a spiritual/Uatsdin person and seeks help in restorationism ways and through prayer; time given to listen and be present, offer of prayer was welcomed
[2021-11-04 15:56] LABS: Alcohol, Blood (Medical)-Serum < 3.0 mg/dL
[2021-11-04 15:59] LABS: Internal QC Validated? YES +Cl - CLEAR BKGD; Pregnancy, Serum, hCG Quali. NEGATIVE Negative
[2021-11-04 17:00] LABS: Amphetamine Urine VISTA NEGATIVE (<1000 ng/mL); Barbiturate Urine VISTA NEGATIVE (< 200 ng/mL); Benzodiazepine Urine VISTA NEGATIVE (< 200 ng/mL); Cocaine Urine VISTA NEGATIVE (< 300 ng/mL); Ecstacy Urine VISTA NEGATIVE (< 500 ng/mL); Methadone Urine VISTA NEGATIVE (< 300 ng/mL); PCP Urine VISTA NEGATIVE (< 25 ng/mL); THC Urine VISTA NEGATIVE (< 50 ng/mL); Vista UDS pH Range 7
[2021-11-04] MEDS: Acetaminophen 325 MG Tablet 650 MG PO (17:19)
[2021-11-04 17:20] VITALS: BP 155/90; PULSE 87; RESP 16; O2SAT 99
--- NOTE | 2021-11-04 20:05 | ED.RN ---
Called [facility] and nurse is not available. Will try again.
[2021-11-04 20:18] VITALS: BP 124/70; PULSE 80; RESP 14; TEMP 36.3; O2SAT 98
--- NOTE | 2021-11-04 20:24 | ED.RN ---
Called and still no nurse available. Sawmill Equipment Operator took down my name and number for the nurse to call back since not able to get him/her after 2 attempts.
--- NOTE | 2021-11-04 20:38 | CM.ED ---
RENEE received call from Sue at [facility]. She said that patient has been accepted at [facility]. She said that the accepting MD is Carlos A Cazares. She said that the RN to RN is [phone] Option 1. Sue said that patient will go to the adult behavior unit. Sue requested that RN call report and the updated pink slip be faxed to her and then transport can be scheduled. Nena, community health educator, scheduled transport for 10pm. RENEE updated patient that she has been accepted at [facility]. Patient asked if she could go closer and SW said that is not an option as there were limited beds. Patient said that she knows she needs help but her does not want her to get help. SW provided emotional support. Patient was provided with handout on [facility] programming which included phone numbers and address. MD completed pink slip and it was faxed to [facility]. RENEE spoke to Sue and she said that the pink slip was fine as it had patient's legal name Sondra Sandoval and patient's registered name Sondra Serrano on it. Patient said that her legal name is Sondra Sandoval. Plan: [facility] Jen YUEN
--- NOTE | 2021-11-04 21:01 | NURSING ---
Patient requests andrade put back for to brass pickler tomorrow. Labeled and handed off to security for him to pick it up.
[2021-11-04 21:02] VITALS: RESP 13
--- NOTE | 2021-11-04 22:17 | ED.RN ---
CALLED PHYSICIANS AND THEY SAID IT WOULD BE ANOTHER HOUR TO A HOUR AND HALF DUE TO THEM TAKING A PATIENT OFF THE FLOOR FIRST. SO THE ETA WENT FROM [phone] TO [phone]
[2021-11-04 22:18] VITALS: BP 134/80; PULSE 80; RESP 17; TEMP 37.1; O2SAT 98
[2021-11-04 22:27] VITALS: BP 134/80; PULSE 80; RESP 17; TEMP -8.3; TEMP 17; O2SAT 98
--- NOTE | 2021-11-04 22:33 | ED.RN ---
CALLED PHYSICIANS FOR ANOTHER TRANSFER FOR ANOTHER PATIENT AND THIS PERSONS RIDE HAS NOW BEEN PUSHED BACK ANOTHER HOUR. ETA 0000
== END 2021-11-05 01:03 ==
PROVIDERS: Emergency Provider Emergency Medicine; Visit Provider Emergency Medicine
DX: F32.9 Major depressive disorder, single episode, unspecified (principal); F41.9 Anxiety disorder, unspecified; R45.851 Suicidal ideations; G93.2 Benign intracranial hypertension; Z20.822 Contact with and (suspected) exposure to COVID-19
CPT/HCPCS: 80048; 80307; 82077; 84703; 85025; 87426; 93005; 99285

== ENCOUNTER 2022-02-27 08:00 | Outpatient (RCR) | payer MEDICAID, SELFPAY ==
--- NOTE | 2022-02-27 09:00 | BH.COMM_ITS ---
Communication Note - Communication with Client Communication Note: Met with pt to complete initial paperwork. No significant changes to pre-admission screening. Completed [facility] Screening. Moderately severe risk. Pt reports long-standing daily suicidal ideations with thoughts of methods since elementary school. Her baseline is daily suicidal thoughts with methods. She has on 1 suicide attempt via OD when she was a teenager in 2005. Notes two interrupted attempts ( stopped her from running into traffic and jumping off bridge) and two aborted attempts with most recent 2-3 weeks ago when she had a gun in her hand (no ammo). has locked up weapons. Pt states protective factors as children (11,8). I don't really have intent because I know killing myself would hurt my children. Denies active SI, plan, or intent today. Smiling at times. Appears motivated. Has been compliant with weekly individual counseling for the past several months. Met with her outpatient psychiatrist last week. Does not present as imminent danger due to no active SI, plan, or intent (fleeting SI with thoughts occurred yesterday), contracts for safety, and reports protective factors. She does not wish to purse voluntary admission as she again notes that her symptoms have been long-standing. Case discussed with Dr. Beebe with plan to admit to [facility] level of care with dx of F33.2.
--- NOTE | 2022-02-27 11:05 | BH.SGPN.GN ---
Behaviors/Verbalizations/Mental Status: []Pt alert and oriented, casually dressed and groomed. Eye contact good. Motor activity appropriate. Speech within normal limits. Affect constricted, mood anxious and depressed. Thoughts linear, logical, no signs of hallucinations or delusions. Client Response/Progress/Benefit: []Pt responded well to session AEB listening to group discussion and completing the resilience worksheet provided. Pt participated in the discussion of how each resiliency component can help increase personal resiliency. Pt identifying doing well with the resilience components of self-awareness. Reflected on wanting to improve in the personal resilience component of keeping things in perspective. Pt stated she wants to work on this by continuing with IOP tx. Pt seemed to benefit from discussing strategies for improving personal resilience. Will continue IOP tx to prevent decompensation, maintain safety, and increase knowledge of healthy coping skills. Narrative Note: []
--- NOTE | 2022-03-01 09:10 | BH.SGPN.GN ---
Behaviors/Verbalizations/Mental Status: []Pt alert and oriented, casually dressed and groomed. Eye contact good. Motor activity appropriate. Speech within normal limits, limited input provided. Affect constricted and flat, mood depressed and anxious. Thoughts linear, logical, no signs of hallucinations or delusions. Reviewed pt?s symptom tracker, suicidal ideation reported as a 2/5, pt denies plan, or intent as of 03/01/22. Pt will meet with program psychiatrist on this date who will further assess for risk. Client Response/Progress/Benefit: []Pt responded well to session, attentive and nodding throughout. Pt appeared to benefit from the support and structure of the group; however, is new to treatment and continues to struggle with anxiety about sharing in the group environment. Opted not to process this morning, however did remain attentive as fellow participants discussed their own struggles and what skills they have been trying to utilize to improve mental health sx management. Pt will continue IOP tx to maintain safety, promote application of healthy coping and thought challenge skills, as well as improve daily functioning. Narrative Note: []
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
[2022-03-01 11:00] VITALS: BP 148/88; PULSE 73
--- NOTE | 2022-03-01 11:15 | BH.SGPN.GN ---
Behaviors/Verbalizations/Mental Status: []Pt alert and oriented, casually dressed and groomed. Eye contact fair. Motor activity appropriate. Speech within normal limits. Affect constricted, mood depressed. Thoughts linear, logical, no signs of hallucinations or delusions. Client Response/Progress/Benefit: []Pt was an active participant in group discussions and activities. Engaged in activity. Pt identified a SMART goal for the next week is to: increase positive thinking by identifying three positives from her life everyday for one week. Pt reported increasing positive thinking would benefit her by challenging negative perspective and helping her see the good in her life. Identified negative thoughts overpowering her positive thoughts as potential barrier to completing this goal. Pt identified challenging negative thoughts as strategy that can help overcome identified barriers. Benefited from group by being able to utilize SMART acronym to create a goal. Pt to continue IOP tx to increase healthy coping, improve daily functioning and prevent decompensation.
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
--- NOTE | 2022-03-01 12:36 | BH.DR.ITP ---
Initial Treatment Plan Patient Information Visit Information: ADMISSION DATE: EXPECTED LOS: 4-6 weeks Problems/Symptoms Problem #1:: Depression Symptom:: Sadness, hopelessness, worthlessness, anhedonia, biological disruption of sleep, low energy, decreased concentration, guilt, fleeting suicidal ideation Problem #2:: Anxiety Symptom:: Worry, rumination, panic attacks, nightmares, flashbacks, reexperiencing, avoidance
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
--- NOTE | 2022-03-03 14:16 | BH.COMM ---
Communication Note - Communication with Client Communication Note: Pt canceled her scheduled IOP sessions today. Pt did not get to meet with therapist this week as pt was scheduled to meet therapist today.
--- NOTE | 2022-03-06 10:10 | BH.SGPN.GN ---
Behaviors/Verbalizations/Mental Status: []Client alert and oriented, casually dressed and groomed. Eye contact avoidant. Motor activity appropriate. Speech within normal limits. Affect constricted, mood anxious, Thoughts linear, logical, no signs of hallucinations or delusions. Client Response/Progress/Benefit: [] Client responded well to session AEB taking notes. Participated in discussion of things that can keep people feeling trapped or stuck in life including; avoidance, unhealthy coping, and isolation. Client appeared to be disconnected during group. Client able to identify negative thoughts that have kept client stuck which included ?being everyone down. Appeared to benefit from gaining awareness of how negative thoughts reinforce mental health symptoms and keep people stuck. Will continue IOP tx to, decrease presenting depression and continue to combat distortions to improve overall functioning. Narrative Note: []
--- NOTE | 2022-03-06 11:15 | BH.SGPN.GN ---
Behaviors/Verbalizations/Mental Status: []Client alert and oriented, casually dressed and groomed. Eye contact avoidamt. Motor activity appropriate. Speech within normal limits. Affect constricted, mood depressed and anxious. Thoughts linear, logical, no signs of hallucinations or delusions. Client Response/Progress/Benefit: []Client responded well to session, contributing to discussion and providing supportive feedback. Client identified a negative thought that has kept her stuck. Client's thought was no one loves me. Client reported when she thinks this way, she becomes angry and sad. Client worked to reframe the thought by finding more rational, realistic ways to look at the thoughts and then processed within group setting. Client reframed the thought to ?people love me? Client stated she will use positive self-talk to continue challenging negative self-talk. Client appeared to benefit from practicing challenging negative thinking. Client will continue IOP tx to promote use of healthy coping skills and improve overall functioning. Narrative Note: []
--- NOTE | 2022-03-06 13:37 | BH.MDN ---
Multi-Disciplinary Note - Note 45-min Individual Time Started:: 09:20 Date: 03/06/22 Purpose of session/treatment goals addressed:: To gather information on pt's current stressors, symptoms, triggers, and tx goals. Another goal was to build rapport and provide emotional support. Eye Contact:: Fair Motor Activity:: Slowed Appearance:: Casual Speech:: Soft, Other - slowed Mood:: Depressed Affect:: Constricted - tearful at times Thoughts:: Logical, Other - pt was slow to respond, but no overt evidence she was internally stimulated. Staff Interventions:: thought challenging, rapport building, strengths perspective, treatment planning Client Response:: Pt responded well to session, open to meeting with therapist. Pt is quiet and guarded, but receptive to meeting therapist. Pt did not know what she wanted to work on while in IOP tx, but she recognizes that her depression and suicidal ideations are her biggest concerns. Pt shared nothing has gone right since I was born and told therapist about some of the trauma pt had experienced in her lifetime. Pt reported because she went through so many foster homes and did not have any secure attachments, pt views herself as unlovable. Pt receptive to emotional support and gentle thought challenging by therapist. Pt was tearful throughout session, but by the end of session, pt was smiling. Pt reported one goal could be building a support system as pt does not get support from family. Discussed how pt can start building support at IOP and in session, pt and therapist can problem-solve other supports. Risks/Concerns:: Pt admits to having daily, passive SI. Pt denies any active SI, intent, or plan as of 03/06/22. Pt reports her children are her protective factors and pt reports ability to maintain safety today. Progress Toward Goals/Plan:: Pt started IOP tx last week and pt is still getting used to the group environment. Pt reported she just started taking her Effexor (3 days now) so no changes seen by pt yet. Pt endorses a depressed mood, daily passive SI, lack of energy, lack of motivation, negative thoughts of self, anhedonia, worthlessness, and hopelessness. Significant history of trauma and very limited support. Pt to continue IOP tx to prevent decompensation, maintain safety, and gain healthy coping skills. Time Stopped:: 10:00
== END 2022-03-09 23:59 ==
LOC: BHIOP 08:00
PROVIDERS: Referring Provider Psychiatry & Neurology Psychiatry; Visit Provider Psychiatry & Neurology Psychiatry
DX: F33.2 Major depressive disorder, recurrent severe without psychotic features (principal); F43.10 Post-traumatic stress disorder, unspecified; F41.1 Generalized anxiety disorder; Z91.14 Patient's other noncompliance with medication regimen; Z79.899 Other long term (current) drug therapy; F81.9 Developmental disorder of scholastic skills, unspecified; F07.81 Postconcussional syndrome
CPT/HCPCS: 90792; H2012; H2020; S9480; T1002; 90834

== ENCOUNTER → 2022-03-07 | Outpatient (CLI) | payer MEDICAID, SELFPAY ==
[2022-03-07 14:07] LABS: Vitamin D,25 Hydroxy 28.9 ng/mL
[2022-03-07 14:13] LABS: Thyroid Stim Hormone (TSH) 1.32 uIU/mL (0.358-3.74)
== END | disposition home or self-care (01) ==
LOC: LAB 13:23
PROVIDERS: Referring Provider Psychiatry & Neurology Psychiatry; Visit Provider Psychiatry & Neurology Psychiatry
DX: E55.9 Vitamin D deficiency, unspecified (principal)
CPT/HCPCS: 36415; 82306; 84443

== ENCOUNTER 2022-03-10 07:26 | Outpatient (RCR) | payer MEDICAID, SELFPAY ==
[2022-03-10 00:50] VITALS: BP 148/88; PULSE 73
--- NOTE | 2022-03-10 09:00 | BH.SGPN.GN ---
Behaviors/Verbalizations/Mental Status: [] Eye contact is poor. Motor activity is appropriate. Appearance is casual. Speech is Appropriate. Mood is depressed. Affect is flat. Thoughts are linear and logical. No evidence of psychosis. Reviewed daily check in sheet and pt reports 4/5 for suicidal thoughts and 0/5 for intent. This has been pt's baseline since entering the program. Client Response/Progress/Benefit: [] Pt participated when prompted. Attentive, smiles at times however did not engage in group discussions. Daily symptom tracker notes 5/5 for depression, anxiety, and irritability. Reports feeling the same from last time she attended IOP. She choose not to share or check-in during the group. It's hard to determine if she benefits due to lack of engagement however she is attentive and nods her head at times during the discussions so she may benefit from support and not feeling alone with mental health struggles. She does interact with peers in-between and after the group. Limited progress. Will continue in IOP to maintain safety, prevent decompensation, and improve functioning. Narrative Note: []
--- NOTE | 2022-03-10 10:15 | BH.SGPN.GN ---
Behaviors/Verbalizations/Mental Status: []Pt alert and oriented, neatly dressed and groomed. Eye contact fair. Motor activity restless. Speech within normal limits. Affect constricted, mood anxious and depressed. Thoughts linear, logical, no signs of hallucinations or delusions. Client Response/Progress/Benefit: []Pt attentive listening to peers, contributing at times, and taking notes during session. Listened as the group brainstormed the positive and negative aspects of stress on physical and mental health. Group did well to identify the benefits of stress as well as the impact of distress on performance and mental health. Pt?s top stressors right now are issues with her , negative thoughts, and family stress. Pt shared her ?stress jar? is full and pt feels overwhelmed. Pt shared when her 'stress jar' is overflowing, pt cries, shuts down, wants to sleep, and complains. Pt seemed to benefit from increased self-awareness of current stressors and impact stress has on mental health. Will continue IOP tx to prevent decompensation, gain healthy coping skills, and reduce negative thinking patterns. Narrative Note: []
--- NOTE | 2022-03-10 11:15 | BH.SGPN.GN ---
Behaviors/Verbalizations/Mental Status: []Pt alert and oriented, neatly dressed and groomed. Eye contact good. Motor activity appropriate. Speech within normal limits. Affect congruent-smiling and laughing, mood euthymic and anxious. Thoughts linear, logical, no signs of hallucinations or delusions. Client Response/Progress/Benefit: []Pt participated at times during group discussions. Attentive during psychoeducation on the 4 A's of Coping with Stress (Avoid, Alter, Adapt, Accept). Participated in experiential activity in which group members had to utilize stress management skills in the moment. Pt agreed with peers that their anxiety and sense of urgency was a barrier and helped group problem-solve solutions. Pt engaged in review of the 4 A?s and picked wanting to work on avoiding unnecessary stressor such toxic people she does not have to see. Benefited from processing in the moment stress management strategies and identifying new ways to cope with stress. Will continue in IOP to prevent decompensation, gain healthy coping skills, and reduce negative thinking patterns. Narrative Note: []
--- NOTE | 2022-03-10 13:58 | BH.MDN_ITS ---
Multi-Disciplinary Note - Note 30-min Individual Time Started:: 12:15 Date: 03/10/22 Purpose of session/treatment goals addressed:: To assess risk as pt's daily symptom tracker numbers for thoughts of suicide were 4/5. Another goal was to process any stressors. Eye Contact:: Good Motor Activity:: Appropriate Appearance:: Neat Speech:: Appropriate Mood:: Euthymic, Anxious Affect:: Congruent - smiling and laughing at times Thoughts:: Racing, No evidence of hallucinations/delusions noted Staff Interventions:: thought challenging, CBT techniques, strengths perspective, completed risk assessment / safety planning - Pt denies any active SI., other - provided emotional support Client Response:: Pt responded well to session, open to meeting with therapist. Pt reports feeling overwhelmed today due to issues with her new landlord and pt's dog. Pt shared she got documentation that her dog is an emotional support animal, but pt stated her landlord is still causing pt issues. Processed with pt and allowed pt to vent. 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 Pt future oriented and shared for self-care she plans to spend time with her kids this weekend watching fireworks. Pt also reported she has been able to challenge some of her thoughts that her kids would be better off without her. Pt stated they need me for a lot of things and they love me. Pt shared she had a good time with her kids the other day and was laughing. Pt reported reduced anxiety after the session. Risks/Concerns:: Pt admits to having passive SI, but pt denies any active SI, plan, or intent as of 03/10/22. Pt reports feeling more overwhelmed today due to a stressor with her landlord which is contributing to her increased scores today. Pt was future oriented in session and laughing. Progress Toward Goals/Plan:: Pt is beginning to get more comfortable in the group setting AEB pt laughing and joking with peers today which pt is normally quiet. Pt continues to struggle with anxiety, depressive symptoms, and passive SI. Pt reports ongoing stressors with her landlord that are contributing to her MH symptoms. Pt reports she has been taking her medication consistently. Pt will continue IOP tx to prevent decompensation, gain healthy coping skills, and reduce SI. Time Stopped:: 12:45
--- NOTE | 2022-03-15 09:00 | BH.SGPN.GN ---
Behaviors/Verbalizations/Mental Status: []Pt alert and oriented, casually dressed and groomed. Eye contact good. Motor activity appropriate. Speech within normal limits. Affect constricted, mood anxious and depressed. Thoughts linear, logical, no signs of hallucinations or delusions. Reviewed pt?s symptom tracker and pt's scores were slightly higher than her baseline. Pt will see therapist today. Client Response/Progress/Benefit: [] Pt responded somewhat well to session, hesitant to share, reports feeling negative today. Pt did not go into detail why she feels negative, but pt recognized that her perspective was more depressive today. Pt shared her win is getting to IOP tx today as pt wanted to isolate and cancel. Group provided support and encouragement to pt which pt appeared to benefit from AEB smiling and laughing. Pt continues to struggle with negative thinking patterns, SI, and negative self-talk. Will continue IOP tx to prevent decompensation, gain healthy coping skills, and reduce SI. Narrative Note: []
--- NOTE | 2022-03-15 10:10 | BH.SGPN.GN ---
Behaviors/Verbalizations/Mental Status: [] Client alert and oriented, neatly dressed and groomed. Eye contact good. Motor activity appropriate. Speech within normal limits. Affect constricted, mood depressed and anxious. Thoughts linear, logical, no signs of hallucinations or delusions. Client Response/Progress/Benefit: [] Client was an active participant AEB actively taking notes. Attentive during psychoeducation on 4 types of conflict styles (Competing, Collaborating, Avoiding, and Accommodating). Worked with group to define conflict and identify how conflict is helpful. With peers identified barriers to addressing or managing conflict which included: fear of upsetting others, fear of the outcome, and feeling vulnerable. Client was did not share with group members but was attentive throughout group. Benefited from group due to increase insight and awareness of benefits to conflict, conflict styles, and obstacles to managing conflict. Will continue in IOP to prevent decompensation, reduce depressive symptomatology,and increase self-esteem. Narrative Note: []
--- NOTE | 2022-03-15 11:57 | PCM.BH.PN ---
Progress Note Progress Note: History of Present Illness/Interim History: [] The patient is a 36-year-old female with a history of depression, anxiety and PTSD who is seen in follow-up at the [facility] behavioral health IOP program. I last saw the patient 3 weeks ago and at that time she was restarted on her Effexor XR 75 mg daily as she had not been compliant with any of her medications. She has been taking the Effexor XR daily for the past 3 weeks and feels that her mood is a little less depressed. She has had some sporadic attendance at the IOP program according to the staff and continues to have some difficulty with comprehension, reading and writing. Her labs were reviewed with her and her TSH was normal and her vitamin D was a little low at 29. She has not done any self-harm since I last saw her. She is still getting panic attacks sometimes daily. She states that last night she does not know why but she felt like overdosing last night but she told her and they talked and she was able to not act on her thoughts. Most of the time her thoughts are fleeting and passive but last night she felt it was significant enough to tell her . She still feels that her children are protective and they are the reason that she would not kill herself. She denies homicidal ideation, hallucinations, delusions. She feels she is benefiting from the program somewhat. Patient continues to be mistrustful of medications. Current Psychiatric Medications: [] Effexor XR 75 mg p.o. daily (restarted 3 weeks ago); patient never filled the Abilify prescription given to her by her outpatient provider and I did not restart it at this time as patient is reluctant to take medications. Mental Status Examination: [] Patient is a 36-year-old female who is overweight and is casually dressed and groomed with good hygiene. She has no psychomotor agitation or retardation. Eye contact is fair and speech is normal rate and rhythm and fluent with a quiet volume. Mood is depressed. Affect is constricted and almost tearful at times. Thought process is goal-directed and organized. Thought content: There is evidence of daily, fleeting suicidal ideation and suicidal ideation with plan to overdose last night which she informed her of and they talked instead. There is no evidence of active suicidal ideation at this time or definitive plan for suicide. There is no evidence of homicidal ideation, hallucinations or delusions. Reality testing is intact. Intelligence is average. Judgment is limited. Insight is limited. Impulsivity is high. Diagnoses: [] 1. Major depressive disorder, recurrent, severe without psychosis 2. PTSD 3. Generalized anxiety disorder 4. Learning disabilities 5. History of noncompliance with medications 6. Primary support and work issues Plan: [] The patient will continue the IOP program at [facility] as the structure, support, education and group therapy will hopefully prevent worsening of the patient's symptoms that might require hospitalization. She felt safe during the interview and if it anytime she does not feel safe she will let us know or go to the emergency room. The risks, options, possible complications and side effects of the medications were again discussed with the patient and she understands and accepts these. I recommended increasing the patient's Effexor to 150 mg p.o. daily but the patient refuses this at this time despite the fact that she is still having panic attacks, depression and suicidal thoughts. She is mistrustful of medications which is why she is often and usually noncompliant with them. Vitamin D prescription was sent in for 50,000 IUs 1 p.o. weekly for 3 months. The patient agrees to continue to follow-up with her outpatient providers and I will continue to follow-up with the patient while she is in the IOP program.
--- NOTE | 2022-03-15 14:50 | BH.MDN ---
Multi-Disciplinary Note - Note 60-min Individual Time Started:: 11:20 Date: 03/15/22 Purpose of session/treatment goals addressed:: To address current stressors, triggers, grief, and negative thinking patterns. Another goal was to identify goals pt can work on to reduce depression. Eye Contact:: Good Motor Activity:: Appropriate Appearance:: Casual Speech:: Soft Mood:: Dysthymic Affect:: Flat - tearful Thoughts:: Circular, Other - ruminations Staff Interventions:: thought challenging, CBT techniques, strengths perspective, goal setting, other - Provided emotional support Client Response:: Pt responded well to session, tearful but open to meeting with therapist. Pt reported her weekend went okay as pt had some good moments with her kids, but there were triggers as well. Pt stated today is the anniversary of pt having to get a D&C after losing her baby last year. Pt tearful and sharing feeling like she failed her baby. Processed these emotions and pt was receptive to gentle thought challenging, recognizing she could not control what happened. Pt shared she feels like no one cares and that she has thoughts of not wanting to be alive. Pt denies that she would act on these thoughts and was able to remind herself that her boys love her and need her. Discussed what support pt might need today and pt stated she plans to spend the day making her one son's birthday special. Pt plans to bake, go to a [employer], and go to the store with her son. Pt shared she enjoys cooking, baking, and used to enjoy going on adventures. Pt has not been on an adventure since being depressed and discussed the benefits of getting back into this. Pt agreed to go for one walk and identify one place she would like to go for a hike within the next week. Risks/Concerns:: Pt denied any active SI, plan, or intent in session. Reports it is the anniversary of her D&C following the miscarriage of her son last year which has triggered suicidal ideation and feeling like no one cares. However, pt is future oriented and reports ability to maintain safety today. Children are her protective factor. Progress Toward Goals/Plan:: Pt's symptoms and stressors are ongoing and pt continues to report chronic SI, depressive symptoms, and negative thoughts. However, pt is becoming more engaged in group sessions AEB talking more to peers and laughing. Pt has been consistent and is receptive to thought challenging in session. Pt receptive to goal setting today. Will continue IOP tx to prevent further decompensation, increase application of healthy coping skills, and reduce negative thinking patterns and SI. Time Stopped:: 12:20
--- NOTE | 2022-03-17 09:05 | BH.SGPN.GN ---
Behaviors/Verbalizations/Mental Status: [] Eye contact is good. Motor activity is appropriate. Appearance is casual. Speech is Appropriate. Mood is depressed. Affect is flat. Thoughts are linear and logical. No evidence of psychosis. Reviewed daily check in sheet and pt reports 2/5 for suicidal thoughts and 0/5 for intent. Client Response/Progress/Benefit: [] Pt participated only when prompted. Attentive AEB by head-nodding and smiling at times with group discussions. Emotion for today is tired. Daily symptom tracker notes 3/5 for depression, anxiety, and irritability which is improvement from earlier this week. She notes that her mood has generally been better in the past few days and her functioning as been stable. Her mental health win was I'm here today. Pt does not share much in process group which is her baseline. Progress noted per symptom tracker scores showing reduction in SI and improve mood. Benefited from group support, encouragement, and feedback. Will continue in IOP to maintain safety, improve functioning,and prevent decompensation. Narrative Note: []
--- NOTE | 2022-03-17 10:15 | BH.SGPN.GN ---
Behaviors/Verbalizations/Mental Status: []Eye contact is good. Motor activity is appropriate. Appearance is casual. Speech is Appropriate. Mood is anxious. Affect is congruent. Thoughts are linear and logical. No evidence of psychosis. Client Response/Progress/Benefit: []Pt was an active participant in group discussion and activity. Attentive during psychoeducation on the stages of change. Pt participated in interactive discussion on emotions associated with change (happy, anxious, proud, shocked, surprised, guilty, etc). Pt along with peers identified barriers that may prevent one from making change such as fear of failure and wanting to shut down when anxious. Group able to identify the benefits to changes such as acceptance, patience, self-awareness, and personal growth. Benefited from increased awareness of emotions related to change, the change process, and benefits/barriers to change. Will continue in IOP to prevent decompensation, reduce negative thinking patterns, and improve overall functioning. Narrative Note: []
--- NOTE | 2022-03-22 09:00 | BH.SGPN.GN ---
Behaviors/Verbalizations/Mental Status: [] Eye contact is good. Motor activity is appropriate. Appearance is disheveled. Speech is depressed. Mood is flat. Affect is congruent. Thoughts are linear and logical. No evidence of psychosis. Reviewed daily check in sheet and pt reports 2/5 for suicidal ideations and 0/5 for intent. Baseline. Client Response/Progress/Benefit: [] Pt participated only when prompted. Attentive. Daily symptom tracker notes 3/5 for depression and 2/5 for self-harm urges. Emotion for today is tired. Mental health win was that she walked this AM. Briefly shared how this was a mental health win due to her limited energy, motivation, and lack of exercise. Group was supportive and praised her for her efforts this AM. Also reported medication compliance which has been an issue in the past. Benefited from group support and encouragment. Will continue in IOP to maintain safety, prevent decompensation, and increase healthy coping. Narrative Note: []
--- NOTE | 2022-03-22 10:05 | BH.SGPN.GN ---
Behaviors/Verbalizations/Mental Status: [] Client alert and oriented, casually dressed and groomed. Eye contact good. Motor activity appropriate. Speech within normal limits. Affect constricted, mood dysthymic. Thoughts linear, logical, no signs of hallucinations or delusions. Client Response/Progress/Benefit: [] Client was an active participant in activity and taking notes during group discussion. Attentive during psychoeducation on coping skills, why people use unhealthy coping skills, and how to replace unhealthy coping skills. Client shared negative coping skills of self harm. Benefited from increased understanding of unhealthy coping skills and the need for developing healthy internal and external coping skills. Client identified as utilizing more internal than external skills. Client will continue IOP tx to prevent decompensation, maintain safety, increase management depressive symptomatology, and increase overall functioning. Narrative Note: []
--- NOTE | 2022-03-22 11:05 | BH.SGPN.GN ---
Behaviors/Verbalizations/Mental Status: [] Client alert and oriented, neatly dressed and groomed. Eye contact fair to good. Motor activity appropriate. Speech within normal limits. Affect congruent, mood euthymic. Thoughts linear, logical, no signs of hallucinations or delusions. Client Response/Progress/Benefit: [] Client responded well to session AEB taking notes and providing input and examples throughout, client participated and shared input more than past groups. Group discussed the different categories of coping skills which included distraction, emotional release, grounding, self-love, and thought challenging. Client created a coping skill menu identifying various skills to try in each category. Client's coping skill menu included:spending time with kids,exercise, practice what's in her control, and shift focus. Appeared to benefit from increasing repertoire of healthy coping skills. Client will continue IOP tx to improve daily functioning, reduce negative thinking, and increase application of healthy coping skills. Narrative Note: []
--- NOTE | 2022-03-22 13:51 | BH.TPR ---
Treatment Plan Review Date of Admission:: 02/27/22 Date of Treatment Plan Review:: 03/22/22 Admitting Diagnoses:: Major depressive disorder, recurrent, severe without psychosis F 33.2; PTSD; Generalized anxiety disorder Current Diagnoses:: Major depressive disorder, recurrent, severe without psychosis F 33.2; PTSD; Generalized anxiety disorder Patient's Response to Treatment:: Pt is making mild progress in IOP tx as pt continues to report severe symptoms. Pt has been showing consistent attendance and although pt is quiet, she actively listens and shares when prompted. Pt has been a little reluctant to take medications, but pt is becoming more receptive. Pt struggles with using internal coping skills outside of IOP tx, but does well with guidance during sessions. Status of Current Problems and Symptoms: Pt continues to report chronic suicidal ideations with recent thoughts of overdosing, but pt was able to talk with her about this. Pt reports ongoing financial stressors, parenting stressors, and relationship stressors. Pt continues to have issues with sleep, negative self-talk, feeling disconnected, and panic. Problem #1 Problem Name:: depressive sx, hopelessness, worthlessness, negative self-talk, and SI Status of Goals:: Objective 1-not complete. Pt?s DSM-5 scores for depression are the same from admission. Pt has been able to prevent further decompensation, but pt?s symptoms are still severe. Pt has learned healthy coping skills, but pt shares she struggles with implementing them outside of IOP. Pt has reduced SI AEB pt?s DSM-5 scores reducing by 50% for thoughts of actually hurting herself. Objective 2- not complete. Pt has gained awareness of the different types of distortions and pt is able to catch distorted self-talk during sessions. Pt struggles with catching negative thinking and reframing it outside of IOP. Team Recommendations:: Treatment tx encourages pt to continue working on these tx goals as pt continues to report severe depression and recently had suicidal ideations with thoughts of overdosing. Pt encouraged to get back into walking, going on adventures or hikes, and spending time outdoors as this was helpful for pt in the past. Lastly, pt is recommended to come to IOP three days a week. Problem #2 Problem Name:: anxiety, avoidance, re-experiencing, and rumination Status of Goals:: Objective 1-in progress. Pt?s DSM- score of anxiety, avoidance, and panic has reduced by 10% since admission. Pt has learned about different calming skills as well as the benefits of opposite action. Pt also continues to struggle with managing PTSD triggers as pt has a lot of unprocessed trauma. Objective 2- In progress. Pt is working on catching distorted thought patterns and reframing them to reduce anxiety and increase resilience. Team Recommendations:: Treatment tx encourages pt to continue working on these goals to reduce anxiety and avoidance while increasing self-confidence and application of coping skills. Pt encouraged to practice calming skills outside of IOP and during group sessions.
--- NOTE | 2022-03-24 09:47 | BH.COMM ---
Communication Note - Communication with Client Communication Note: Pt had to cancel her scheduled IOP group and individual sessions today due to severe physical pain. Pt reports belief she may have a kidney infection and this therapist encouraged pt to go to the doctor. Pt denies any SI and reports feeling fine today. Pt is home with her children who are protective factors. Pt reports plan to be in on 03/27/22. Due to canceling today, pt did not get an individual session this week.
--- NOTE | 2022-03-27 13:27 | BH.COMM_ITS ---
Communication Note - Communication with Client Communication Note: Pt no called/no showed for session today. Therapist spoke with pt this afternoon and pt reported she had a hard time waking up the past two days. Pt reports her increased fatigue is due to health issues. Pt has not been to the doctor and pt states she will not go unless it becomes unbearable. Pt states her physical pain is reduced from Sunday. Pt reports that her mental health symptoms are beginning to improve and pt thinks the medication is helpin g. Pt states she will be at [facility] on Sunday03/29/22.
--- NOTE | 2022-03-29 14:40 | BH.MDN_ITS ---
Multi-Disciplinary Note - Note 30-min Individual Time Started:: 09:20 Date: 03/29/22 Purpose of session/treatment goals addressed:: To address current symptoms, barriers to tx, progress, and application of skills. Eye Contact:: Fair Motor Activity:: Appropriate Appearance:: Casual Speech:: Soft Mood:: Dysthymic, Other - uncomfortable-reporting physical pain Affect:: Constricted Thoughts:: Linear, Logical, No evidence of hallucinations/delusions noted Staff Interventions:: motivational interviewing, strengths perspective, other - encouraged pt to go to urgent care Client Response:: Pt entered session appearing in physical pain. Therapist had encouraged pt last week to go to the ER or Urgent Care as pt thought she may have a UTI. Pt did not go and was encouraged again to go today. Due to pt's physical discomfort, a full session was not appropriate. Pt did shared some progress from medication including less racing thoughts and no SI. However, pt stated she is not always consistent with taking her meds. Pt also could not identify any coping skills she has been using but this could be due to pain. Pt shared she continues to feel really tired in the mornings which pt reports is why her attendance has suffered. Discussed taking her medication at a different time of day as pt feels it may be medication related. Pt currently taking her medication very early in the morning. Pt's fatigue is impacting her attendance a nd motivation which could be an ongoing barrier to tx if not addressed. Pt recommended to leave IOP early today to get medical care and come three days next week. PT also encouraged to spend time in nature with her children as this has been helpful in the past. Pt shared she did recently go fishing which was enjoyable to her. Risks/Concerns:: Pt denied any SI, plan, or intent. Pt reports belief the medication is working as pt reports no longer having SI. Pt denies any HI. In pain today, but future oriented. Progress Toward Goals/Plan:: Pt's symptoms and stressors are ongoing and pt continues to report chronic negative thinking and lack of motivation, depressive symptoms, and increased need for sleep. Pt's attendance has been poor recently due to difficulty waking up. Pt also is struggling with identifying and utilizing healthy coping skills outside of IOP tx, but this could be due to physical pain today. Will continue IOP tx to prevent further decompensation, increase application of healthy coping skills, and reduce negative thinking patterns. Time Stopped:: 09:48
--- NOTE | 2022-04-05 10:15 | BH.SGPN.GN ---
Behaviors/Verbalizations/Mental Status: []Pt alert and oriented, casually dressed and groomed. Eye contact fair. Motor activity appropriate. Speech within normal limits. Affect constricted, mood dysthymic. Thoughts linear, logical, no signs of hallucinations or delusions. Client Response/Progress/Benefit: []Pt engaged during session AEB Pt contributing thoughts throughout discussion and completing worksheet. Connected with discussion on crisis and how coping with external crises by using unhealthy coping skills could result in a personal crisis. Group reflected on the importance of having awareness of personal warning signs to prevent reaching crisis point. Group identified potential warning signs for crisis and Pt completed the personal warning signs worksheet. Pt identified personal crisis warning signs to include: isolating, increased sleep, and negative thinking.?Pt benefited by increasing awareness of what leads to crisis and personal warning signs. Pt will continue IOP tx to reduce negative thinking patterns, reduce isolation, and increase the use of healthy coping skills. ? Narrative Note: []
--- NOTE | 2022-04-05 10:27 | PCM.BH.PN_ITS ---
Progress Note Progress Note: And history of Present Illness/Interim History: [] The patient is a 36-year-old female who is seen in follow-up at the [facility] behavioral health IOP program where she is being treated for depression, anxiety and PTSD. I last saw the patient 3 weeks ago and 2 weeks ago her Effexor XR dose was increased from 75 mg to 150 mg p.o. daily. The patient has a history of noncompliance with medications and had been restarted on 75 mg of Effexor after being off it for 3 weeks at her initial visit. The patient states that she never filled the prescription for the 150 of Effexor and never took the increased dose. In addition she states that she ran out of all of her Effexor and has been off of her Effexor for 1 week. She does not want to increase the Effexor dose anymore. She states that she has had a few good things happen in the last week and admits that she felt somewhat better last week with improved motivation, energy level and less depression. She had a kidney stone last week and still has some residual pain from it. She is not sure if she is benefiting greatly from the IOP program because she states I am not a people person. She denies any self-harm or thoughts of self-harm. She denies passive thoughts of , plan for suicide, suicidal ideation, homicidal ideation, hallucinations or delusions. She denies any panic attacks. She continues to be mistrustful of medications. Current Psychiatric Medications: [] Effexor XR 75 mg p.o. daily (patient restarted it 6 weeks ago but ran out of it 1 week ago and has been off the medication completely for 1 week. She also never filled the Abilify prescription given to her by her outpatient provider. Mental Status Examination: [] The patient is a 36-year-old female who is casually dressed and groomed with good hygiene and is overweight. She has no psychomotor agitation or retardation. Eye contact is good and speech is normal rate and rhythm and fluent without pressure. Volume is somewhat quiet. Mood is depressed. Affect is constricted but brighter than last visit. Thought process is goal-directed and organized. Thought content: There is no evidence of passive thoughts of , suicidal ideation, plan for suicide, hallucinations, delusions or claudia. Reality testing is intact. Judgment is limited. Insight is limited. Impulsivity is high. Diagnoses: [] 1. Major depressive disorder, recurrent, severe without psychosis 2. PTSD 3. Generalized anxiety disorder 4. Learning disabilities 5. History of noncompliance with medications and suspicion of medications 6. Primary support and work issues Plan: [] The patient will continue the IOP program at [facility] as the structure, support, education and group therapy will hopefully prevent worsening of the patient's symptoms that could require hospitalization. We will try to improve the patient's attendance to be more consistent. She felt safe during the interview and if it anytime she does not feel safe she will let us know or go to the emergency room. The risks, options, possible complications and side effects of the medications were again discussed with the patient and she understands and accepts these. The patient wishes to stay on 75 mg of Effexor and refuses to increase the dose. She agrees to try to fruit picker her Effexor to restarted after being off it 1 week and understands the risk of withdrawing from Effexor suddenly. She agrees to fruit picker the vitamin D prescription also. She will continue to follow-up with her outpatient providers and I will see the patient in follow-up while she is in the IOP program.
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
== END 2022-04-09 23:59 ==
LOC: BHIOP 07:26
PROVIDERS: Referring Provider Psychiatry & Neurology Psychiatry; Visit Provider Psychiatry & Neurology Psychiatry
DX: F33.2 Major depressive disorder, recurrent severe without psychotic features (principal); F43.10 Post-traumatic stress disorder, unspecified; F41.1 Generalized anxiety disorder; Z91.14 Patient's other noncompliance with medication regimen; Z79.899 Other long term (current) drug therapy; F81.9 Developmental disorder of scholastic skills, unspecified; F07.81 Postconcussional syndrome
CPT/HCPCS: 99214; H2012; H2020; S9480; 90832; 90837

== ENCOUNTER 2022-03-29 10:10 | Emergency (ER) | payer MEDICAID, SELFPAY ==
[2022-03-29 10:12] VITALS: BP 171/107; PULSE 79; RESP 16; TEMP 36.6; O2SAT 96; BMI 37.1
[2022-03-29 10:55] LABS: Color, Urine Yellow (Yellow); Glucose, Dipstick Normal (Normal); Ketone-Dipstick 5 mg/dl (Negative); Leukocyte Esterase-Dipstick 25 /ul (Negative); Nitrite-Dipstick Negative (Negative); Occult Blood-Urine 250 /ul (Negative); Protein-Dipstick 100 mg/dl (Negative); Specific Gravity, Urine 1.025 (1.002-1.030); Urine Bilirubin Dipstick Negative (Negative); Urine Clarity Sl. Cloudy (Clear); Urine Urobilinogen Normal (Normal)
[2022-03-29 11:01] LABS: Bacteria 1+ /hpf (None Seen); Mucous, Urine 1+ /hpf (<or=2+); Red Blood Cells-Urine 25-50 SEEN /hpf (0-5); Squamous Epithelial Cells - UA 0-5 SEEN /hpf (5-10); White Blood Cells 0-5 SEEN /hpf (0-5)
--- NOTE | 2022-03-29 11:01 | ED.VIS.GI ---
HPI HPI - GI History of Present Illness Chief Complaint: Flank Pain Informant: patient Narrative Narrative: Patient is a 36-year-old female presenting with abdominal and back pain. She also states she is having cramping in her vaginal region and vaginal pain. She is describes as sharp. She notes that she her last menstrual period was March 15 and it was very heavy. That was atypical for her. States only time she had similar discomfort is when she has been . She is not taken a home test. She does not think she is . She currently denies any vaginal bleeding or vaginal discharge. She denies any concern for retained tampon or vaginal foreign body. She denies any concern for STIs stating she is been monogamous with her partner. She notes that when her symptoms started a week ago she did start taking leftover Cipro twice a day. She states that she has a history of not finishing her antibiotics which is why she still had it. Patient questions that she had a fever couple days ago but currently denies any. No other acute complaints at this time. [facility] Medical History Generalized anxiety disorder Kidney stones Major depressive disorder, recurrent severe without psychotic features Migraines Ovarian cyst PTSD (post-traumatic stress disorder) Home Medications acetazolamide 500 mg capsule,extended release 500 mg PO BID 06/23/21 [History Last Taken Unknown] ergocalciferol (vitamin D2) 1,250 mcg (50,000 unit) capsule (Vitamin D2) 1,250 mcg PO QWEEK 90 days #13 caps 03/15/22 [Rx Last Taken Unknown] venlafaxine 150 mg capsule,extended release 24 hr (Effexor XR) 150 mg PO DAILY 30 days #30 caps 03/22/22 [Rx Last Taken Unknown] hydrocodone-acetaminophen 5-325mg 5mg-325mg 1 tab PO Q6H PRN pain 3 days #12 tabs 03/29/22 [Rx Last Taken Unknown] ibuprofen 600 mg tablet 600 mg PO Q6H PRN PRN Pain Score 1-10/10 #20 tabs 03/29/22 [Rx Last Taken Unknown] ondansetron HCl 4 mg tablet 4 mg PO Q6H PRN nausea and vomiting 3 days #12 tabs 03/29/22 [Rx Last Taken Unknown] tamsulosin 0.4 mg capsule (Flomax) 0.4 mg PO DAILY #7 caps 03/29/22 [Rx Last Taken Unknown] Allergy/AdvReac Type Severity Reaction Status Date / Time adhesive tape Allergy Rash Verified 03/29/22 13:05 Surgical History History of section History of cholecystectomy History of umbilical hernia repair Hx of tympanostomy tubes Social History Smoking Status: Never smoker ROS ROS ED Constitutional Constitutional ED: Reports fever(s); Denies chills or sweats ENT ENT ED: Denies rhinorrhea or sore throat Cardiovascular Cardiovascular: Denies chest pain Respiratory/Chest Respiratory/Chest: Denies cough Gastrointestinal Gastrointestinal: Reports abdominal pain and nausea; Denies diarrhea, melena or vomiting Genitourinary Genitourinary ED: Reports urinary frequency; Denies dysuria Musculoskeletal Musculoskeletal: Reports back pain; Denies arthralgias or myalgias Integumentary Denies rash Neurologic Neurologic: Denies headache(s) or weakness Psychiatric Psychiatric: Reports anxiety; Denies depression Hematologic/Lymphatic Hematologic/Lymphatic: Denies easy bleeding or easy bruising EXAM Physical Exam Const Vital Signs: 03/29/22 10:12 03/29/22 10:51 Temperature 97.9 F Temperature Source Temporal Pulse Rate 79 Respiratory Rate 16 Respiratory Effort Normal Non-Labored Respiratory Pattern Normal Blood Pressure 171/107 H Blood Pressure Mean 128 Pulse Ox 96 Oxygen Delivery Method Room Air Positive well nourished, well developed and obese General Appearance ED: well developed and NAD; Negative for pallor Nutritional Appearance: obese HEENT Reports moist mucous membranes normocephalic and atraumatic Eyes PERRL and EOMs intact bilaterally Neck supple Resp normal respiratory effort and clear to auscultation bilaterally Cardio regular rate and regular rhythm GI non-distended and no masses Auscultation: normoactive bowel sounds Palpation: soft and tender other (diffuse, worse in suprapubic region ) Back/Spine no CVA tenderness Neuro moves all extremities Motor Exam: Negative for general weakness Psych mental status grossly normal Mood & Affect: anxious Skin no wounds General Skin Exam: Negative for jaundice or pallor MDM MDM MDM Narrative Medical decision making narrative: Patient is evaluated for 1 week of abdominal pain, vaginal pain and back pain. Patient is try Tylenol and ibuprofen as well as Cipro that she had leftover with no relief of her symptoms. Came in for further evaluation. Patient seems uncomfortable and is hypertensive but no acute distress. No peritoneal signs on exam. CBC normal. BMP and liver panel normal. Urinalysis shows hematuria. Given her pain and hematuria will obtain a CT to look for kidney stone or other acute pathology that could be causing her presentation. CT does show a 3 mm stone at the left UVJ with small associated hydronephrosis. Urinalysis not consistent with infection and patient's kidney function is normal. She has good pain control with IV Toradol and Zofran in the emergency room. Patient is discharged home with Flomax as well as symptomatic medications. She is given referral for urology for outpatient follow-up. She is counseled on return precautions. She is counseled that as a stone is less than 5 mm that should pass spontaneously. She verbalized agreement understand this plan. Discharged home in stable condition. Lab Data Attestation: I reviewed the patient's lab results. Labs: Laboratory Results - last 24 hr 03/29/22 03/29/22 03/29/22 10:50 11:25 11:25 WBC 9.5 RBC 4.99 Hgb 13.6 Hct 40.8 MCV 81.8 MCH 27.3 MCHC 33.3 RDW Std Deviation 38.7 RDW Coeff of Theresa 13.2 Plt Count 288 MPV 9.3 Immature Gran % (Auto) 0.300 Neut % (Auto) 68.5 Lymph % (Auto) 24.5 [place] % (Auto) 6.4 Eos % (Auto) 0.0 Baso % (Auto) 0.3 Absolute Neuts (auto) 6.5 Absolute Lymphs (auto) 2.34 Nucleated RBC % 0 Sodium 140 Potassium 3.9 Chloride 108 H Carbon Dioxide 25.0 Anion Gap 7 BUN 11 Creatinine 0.85 Estim Creat Clear Calc 87.30 Est GFR (MDRD) Af Amer 99 Est GFR (MDRD) Non-Af 81 BUN/Creatinine Ratio 13.0 Glucose 90 Calcium 8.7 Total Bilirubin 0.50 AST 16 ALT 26 Alkaline Phosphatase 88 Total Protein 7.6 Albumin 3.5 Globulin 4.1 Albumin/Globulin Ratio 0.9 Lipase 56 L Urine Color Yellow Urine Clarity Sl. Cloudy Urine pH 6.0 Ur Specific [place] 1.025 Urine Protein 100 H Urine Glucose (UA) Normal Urine Ketones 5 H Urine Occult Blood 250 H Urine Nitrite Negative Urine Bilirubin Negative Urine Urobilinogen Normal Ur Leukocyte Esterase 25 H Urine RBC 25-50 SEEN Urine WBC 0-5 SEEN Ur Squamous Epith Cells 0-5 SEEN Urine Bacteria 1+ Urine Mucus 1+ Urine Test Negative Radiography Diagnostic Testing: Clinical Impression(s) from Imaging Studies Abdomen/Pelvis CT 03/29/22 12:59 IMPRESSION: 3 mm calculus at the left ureteropelvic junction causing mild degree of left hydronephrosis. Left ovarian cysts. Electronically Signed: Molina Luis MD at 13:32 EDT , Discharge Plan Triage Chief Complaint: Flank Pain ED Provider: Shana Gutierrez Dx/Rx/DC Orders Clinical Impression: Kidney stone on left side, Renal colic on left side Instructions: ED Kidney Stone w/ Colic Prescriptions: New tamsulosin [Flomax] 0.4 mg capsule 0.4 mg PO DAILY Qty: 7 0RF ibuprofen 600 mg tablet 600 mg PO Q6H PRN PRN (Reason: Pain Score 1-10/10) Qty: 20 0RF hydrocodone-acetaminophen 5-325 mg tablet 1 tab PO Q6H PRN (Reason: pain) 3 Days Qty: 12 0RF ondansetron HCl 4 mg tablet 4 mg PO Q6H PRN (Reason: nausea and vomiting) 3 Days Qty: 12 0RF No Action acetazolamide 500 mg capsule, extended release 500 mg PO BID ergocalciferol (vitamin D2) [Vitamin D2] 1,250 mcg (50,000 unit) capsule 1,250 mcg PO QWEEK 90 Days Qty: 13 0RF venlafaxine [Effexor XR] 150 mg capsule,extended release 24hr 150 mg PO DAILY 30 Days Qty: 30 1RF Primary Care Provider: Care Physician,No Primary Referrals: Leticia Ren MD [STAFF PHYSICIAN] - As Needed Care Physician,No Primary [Primary Care Provider] - Activity Restrictions/Additional Instructions: You have a 3 mm kidney stone on the left side that is causing your pain. It should pass soon as it is almost to the bladder. You been given a urologist to follow-up with if your pain does not improve or as needed. Disposition Disposition: Home, Self Care
[2022-03-29 11:02] LABS: Internal QC Validated? YES +Cl - CLEAR BKGD; Pregnancy, Urine Negative Negative
[2022-03-29] MEDS: Ketorolac 15 MG/ML Vial IV (11:28)
[2022-03-29] MEDS: Ondansetron 4 MG/2 ML Vial IV (11:28)
[2022-03-29 11:36] LABS: Absolute Lymphocyte Count 2.34 X10^3/uL (0.83-4.51); Absolute Neutrophil Count 6.5 X10^3/uL (2.0-7.7); Basophil# 0.03 X10^3/uL; Basophil% 0.3 % (0-1); Hematocrit 40.8 % (37-47); Hemoglobin 13.6 g/dL (12.0-15.0); Lymphocyte # 2.34 X10^3/ul (0.83-4.51); Lymphocyte % 24.5 % (19-41); Mean Corp Hgb Conc 33.3 g/dL (32-36); Mean Corpuscular Hgb 27.3 pg (27.0-32.0); Mean Corpuscular Volume 81.8 fL (81-99); Mean Platelet Vol. 9.3 fl (6.2-12.0); Monocyte# 0.61 X10^3/uL; Monocyte% 6.4 % (0-10); NRBC Flagged by Analyzer 0 % (0-5); Neutrophil # 6.53 X10^3/uL (2.7-7.7); Neutrophil % 68.5 % (47-70); Platelet Count 288 K/mm3 (150-450); RBC Distribution Width CV 13.2 % (11.6-14.6); RBC Distribution Width SD 38.7 fl (35.1-43.9); Red Blood Count 4.99 M/mm3 (4.2-5.4); White Blood Count 9.5 K/mm3 (4.4-11.0)
[2022-03-29 11:51] LABS: ALB/GLOB Ratio 0.9 RATIO (0.9-2.4); AST(SGOT) 16 U/L (15-37); Alanine Aminotransfer ALT/SGPT 26 U/L (13-56); Albumin, Serum 3.5 g/dL (3.2-5.0); Alkaline Phosphatase 88 U/L (45-117); Anion Gap 7 (5-15); BUN 11 mg/dL (7-18); Calcium,Total 8.7 mg/dL (8.5-10.1); Chloride 108 mmol/L (98-107); Creatinine, Serum 0.85 mg/dL (0.55-1.02); EST Glomerular Filtration Rate 81 mL/min (>60); Est Glom Filt Rate - Afr Amer 99 mL/min (>60); Globulin 4.1 g/dL (2.2-4.2); Glucose 90 mg/dL (74-106); Lipase 56 U/L (73-393); Potassium 3.9 mmol/L (3.5-5.1); Protein, Total 7.6 g/dL (6.4-8.2); Sodium Level 140 mmol/L (136-145)
--- NOTE | 2022-03-29 12:59 | CT_ITS ---
STUDY: CT ABDOMEN AND PELVIS WITH CONTRAST REASON FOR EXAM: Female, 36 years old. Abdominal pain, diffuse, pelvic pain, hematuria. Barb, umbilical HERNIA AND C-SECTIONS RADIATION DOSAGE (If Supplied By Facility): CTDIvol = ( 15.30 ) mGy, DLP = ( 1168.92 ) mGycm TECHNIQUE: Transaxial images were obtained from the dome of the diaphragm to the symphysis pubis without oral contrast. IV 100mL Isovue-300 was administered. Sagittal and coronal images were reconstructed. Individualized dose optimization techniques were used for this CT. COMPARISON: Comparison is made with prior study dated 08/09/2021. FINDINGS: Minimal scarring along the medial aspect of the right middle lobe and lingular segment of the left upper lobe. The visualized portions of the heart are within normal limits. Normal liver. There are surgical clips in the gallbladder fossa consistent with a prior cholecystectomy. Normal spleen. Normal pancreas. Normal bilateral adrenal glands. Normal right kidney. Mild degree of left hydronephrosis due to a 3 mm calculus at the left ureterovesical pelvic junction. Normal visualized stomach. Normal small intestine. Normal colon. The appendix is visualized and appears normal. Normal abdominal aorta. Normal inferior vena cava. There is borderline retroperitoneal lymphadenopathy with enlarged nodes no greater than 10mm in the short axis diameter. Normal urinary bladder. There is a nabothian cyst of the uterine cervix. There is a 3.6 cm x 3.7 cm cyst in the anterior aspect of the left ovary. There is also evidence of a 2.3 cm x 2.4 cm cyst along the posterior inferior aspect of the left ovary. Follicles are seen in the right ovary. There is a small umbilical hernia containing fat. Normal osseous structures. CT/Abdomen/Pelvis W IV Cont ONLY IMPRESSION: 3 mm calculus at the left ureteropelvic junction causing mild degree of left hydronephrosis. Left ovarian cysts. Electronically Signed: Molina Luis MD at 13:32 EDT ,
== END 2022-03-29 14:29 | disposition home or self-care (01) ==
PROVIDERS: Emergency Provider Emergency Medicine; Visit Provider Emergency Medicine
DX: N13.2 Hydronephrosis with renal and ureteral calculous obstruction (principal); F33.2 Major depressive disorder, recurrent severe without psychotic features; M54.9 Dorsalgia, unspecified; F41.1 Generalized anxiety disorder; E66.9 Obesity, unspecified; Z79.899 Other long term (current) drug therapy
CPT/HCPCS: 74177; 80053; 81001; 81025; 83690; 85025; 87086; 87088; 96374; 96375; 99283; A4216; J2405

== ENCOUNTER 2022-05-26 22:56 | Emergency (ER) | payer MEDICAID, SELFPAY ==
[2022-05-26 22:56] VITALS: BP 161/105; PULSE 88; RESP 18; TEMP 36.3; O2SAT 100; BMI 38.0
--- NOTE | 2022-05-26 23:11 | EDS_ITS ---
HPI History of Present Illness Chief Complaint: Abd Pain Narrative Narrative: Patient is a 36-year-old female with past medical history of pseudotumor cerebri as well as left ovarian cyst and previous kidney stone. She states that she is approximately 2 weeks late on her menstrual cycle. She reports that over the past 3 days she has had bilateral back pain and cramping lower abdominal pain. She denies any vaginal bleeding or discharge. She states she been taking [id number] Tylenol with out any symptom improvement. She denies any fevers chills dysuria or diarrhea associated with the symptoms. However as she can not get the pain under control at home she presents for evaluation. [facility] Medical History Generalized anxiety disorder Kidney stones Major depressive disorder, recurrent severe without psychotic features Migraines Ovarian cyst PTSD (post-traumatic stress disorder) Home Medications acetazolamide 500 mg capsule,extended release 500 mg PO BID 06/23/21 [History Last Taken Unknown] venlafaxine 75 mg capsule,extended release 24 hr (Effexor XR) 75 mg PO DAILY #90 caps 04/05/22 [Rx Last Taken Unknown] cephalexin 500 mg capsule 500 mg PO TID 7 days #21 caps 05/27/22 [Rx Last Taken Unknown] ketorolac 10 mg tablet 10 mg PO Q6H PRN pain 5 days #20 tabs 05/27/22 [Rx Last Taken Unknown] oxycodone-acetaminophen 5 mg-325 mg tablet (Percocet) 1 tab PO Q6H PRN pain 3 days #12 tabs 05/27/22 [Rx Last Taken Unknown] tamsulosin 0.4 mg capsule (Flomax) 0.4 mg PO DAILY 14 days #14 caps 05/27/22 [Rx Last Taken Unknown] Allergy/AdvReac Type Severity Reaction Status Date / Time adhesive tape Allergy Rash Verified 05/26/22 22:57 Surgical History History of section History of cholecystectomy History of umbilical hernia repair Hx of tympanostomy tubes Social History Smoking Status: Never smoker ROS ROS ED Constitutional Constitutional ED: Denies chills or fever(s) ENT ENT ED: Denies sore throat Cardiovascular Cardiovascular: Denies chest pain Respiratory/Chest Respiratory/Chest: Denies cough or dyspnea Gastrointestinal Gastrointestinal: Reports abdominal pain; Denies diarrhea, nausea or vomiting Genitourinary Genitourinary ED: Denies dysuria Musculoskeletal Musculoskeletal: Reports back pain; Denies myalgias Integumentary Denies rash Neurologic Neurologic: Denies headache(s) Psychiatric Psychiatric: Reports depression Hematologic/Lymphatic Hematologic/Lymphatic: Denies easy bleeding or easy bruising EXAM Physical Exam Const Vital Signs: 05/26/22 22:56 05/27/22 01:00 Temperature 97.4 F L Temperature Source Temporal Pulse Rate 88 Respiratory Rate 18 20 H Blood Pressure 161/105 H Blood Pressure Mean 123 Pulse Ox 100 Oxygen Delivery Method Room Air Room Air Positive well nourished, well developed and obese General Appearance ED: well developed Nutritional Appearance: obese HEENT Reports moist mucous membranes Eyes PERRL and EOMs intact bilaterally Neck supple Resp normal respiratory effort and clear to auscultation bilaterally Cardio regular rate and regular rhythm Rate: other Other Details: Radial pulses are plus 2 out of 4 bilaterally are equal and symmetric GI non-tender and non-distended GI Narrative: There is mild pain on palpation diffusely in the lower abdomen without voluntary guarding or rigidity. No pulsatile mass Auscultation: normoactive bowel sounds Palpation: soft Back/Spine Back/Spine Narrative: There is bilateral paralumbar pain with palpation Extremity normal to inspection Neuro oriented x3 and CN's II-XII intact bilaterally Sensorium / Orientation: alert Psych Psych Narrative: Patient has a depressed/flat affect Skin no rashes or lesions noted Skin Narrative: No overlying soft tissue changes to suggest trauma or infection MDM MDM MDM Narrative Medical decision making narrative: Patient presented to ER hypertensive but otherwise with stable vital. She reported bilateral back pain and lower abdominal pain and also stated she was late on her menstrual cycle so there was concern for and possible miscarriage. Basic blood work was obtained and serum marker is negative. Her urine does show blood and therefore with history of kidney stone I elected to repeat a noncontrast CT. this showed a 6 mm stone in the distal UVJ on the left consistent with her hematuria and pain. At this time the patient does not have acute kidney injury or urosepsis. After 1 dose of morphine she has improvement of her pain. On reevaluation she is resting comfortably. Therefore at this time as she does not have urosepsis or acute kidney injury and pain is improved she can be given symptomatic medication and follow-up with urology for repeat evaluation and possibly stent placement Lab Data Attestation: I reviewed the patient's lab results. Labs: Laboratory Results - last 24 hr 05/26/22 05/26/22 05/26/22 23:30 23:30 23:30 WBC 11.3 H RBC 4.81 Hgb 13.0 Hct 39.8 MCV 82.7 MCH 27.0 MCHC 32.7 RDW Std Deviation 39.5 RDW Coeff of Theresa 13.2 Plt Count 306 MPV 9.6 Immature Gran % (Auto) 0.400 Neut % (Auto) 62.8 Lymph % (Auto) 28.8 [place] % (Auto) 6.2 Eos % (Auto) 1.2 Baso % (Auto) 0.6 Absolute Neuts (auto) 7.1 Absolute Lymphs (auto) 3.24 Nucleated RBC % 0 Sodium 144 Potassium 3.4 L Chloride 112 H Carbon Dioxide 25.0 Anion Gap 7 BUN 13 Creatinine 0.82 Estim Creat Clear Calc 90.50 Est GFR (MDRD) Af Amer 103 Est GFR (MDRD) Non-Af 85 BUN/Creatinine Ratio 15.9 Glucose 108 H Calcium 8.6 Total Bilirubin 0.40 Direct Bilirubin 0.11 AST 15 ALT 32 Alkaline Phosphatase 96 Total Protein 7.6 Albumin 3.5 Globulin 4.1 Lipase 100 Serum , Qual NEGATIVE Urine Color Urine Clarity Urine pH Ur Specific [place] Urine Protein Urine Glucose (UA) Urine Ketones Urine Occult Blood Urine Nitrite Urine Bilirubin Urine Urobilinogen Ur Leukocyte Esterase Urine RBC Urine WBC Ur Squamous Epith Cells Urine Bacteria Urine Mucus 05/26/22 23:30 WBC RBC Hgb Hct MCV MCH MCHC RDW Std Deviation RDW Coeff of Theresa Plt Count MPV Immature Gran % (Auto) Neut % (Auto) Lymph % (Auto) [place] % (Auto) Eos % (Auto) Baso % (Auto) Absolute Neuts (auto) Absolute Lymphs (auto) Nucleated RBC % Sodium Potassium Chloride Carbon Dioxide Anion Gap BUN Creatinine Estim Creat Clear Calc Est GFR (MDRD) Af Amer Est GFR (MDRD) Non-Af BUN/Creatinine Ratio Glucose Calcium Total Bilirubin Direct Bilirubin AST ALT Alkaline Phosphatase Total Protein Albumin Globulin Lipase Serum , Qual Urine Color Yellow Urine Clarity Sl. Cloudy Urine pH 6.0 Ur Specific [place] 1.025 Urine Protein 30 H Urine Glucose (UA) Normal Urine Ketones 5 H Urine Occult Blood 250 H Urine Nitrite Negative Urine Bilirubin Negative Urine Urobilinogen Normal Ur Leukocyte Esterase 25 H Urine RBC 50-100 SEEN Urine WBC 0-5 SEEN Ur Squamous Epith Cells 0-5 SEEN Urine Bacteria 1+ Urine Mucus 0 SEEN Radiography Diagnostic Testing: Clinical Impression(s) from Imaging Studies Abdomen/Pelvis CT 05/27/22 00:08 IMPRESSION: Left-sided hydronephrosis with stone near the left UPJ. Electronically Signed: Juan Yancey DO at 1:01 EDT , Discharge Plan Triage Chief Complaint: Abd Pain ED Provider: Jesse Abdullahi Dx/Rx/DC Orders Clinical Impression: Kidney stone on left side, Left ovarian cyst, Renal colic, Hydronephrosis Instructions: ED Kidney Stone w/ Colic Prescriptions: New cephalexin 500 mg capsule 500 mg PO TID 7 Days Qty: 21 0RF tamsulosin [Flomax] 0.4 mg capsule 0.4 mg PO DAILY 14 Days Qty: 14 0RF ketorolac 10 mg tablet 10 mg PO Q6H PRN (Reason: pain) 5 Days Qty: 20 0RF oxycodone-acetaminophen [Percocet] 5-325 mg tablet 1 tab PO Q6H PRN (Reason: pain) 3 Days Qty: 12 0RF No Action acetazolamide 500 mg capsule, extended release 500 mg PO BID venlafaxine [Effexor XR] 75 mg capsule,extended release 24hr 75 mg PO DAILY Qty: 90 0RF Primary Care Provider: Care Physician,No Primary Referrals: Leticia Ren MD [Med Staff - Active Staff] - 3-5 Days if not improving Care Physician,No Primary [Primary Care Provider] - Activity Restrictions/Additional Instructions: Please follow-up with urology for repeat evaluation and possible consult for ureteral stent placement if you cannot pass your kidney stone. Please return to the ER if you develop a fever over 100.4 or your pain is not controlled with the medications provided Disposition Disposition: Home, Self Care
[2022-05-26] MEDS: 0.9% Normal Saline 1,000 ML 999 ML IV (23:39)
[2022-05-26 23:46] LABS: Mucous, Urine 0 SEEN /hpf (<or=2+)
[2022-05-26 23:49] LABS: Absolute Lymphocyte Count 3.24 X10^3/uL (0.83-4.51); Absolute Neutrophil Count 7.1 X10^3/uL (2.0-7.7); Basophil# 0.07 X10^3/uL; Basophil% 0.6 % (0-1); Eosinophil# 0.13 X10^3/uL; Eosinophils% 1.2 % (0-5); Hematocrit 39.8 % (37-47); Lymphocyte # 3.24 X10^3/ul (0.83-4.51); Lymphocyte % 28.8 % (19-41); Mean Corp Hgb Conc 32.7 g/dL (32-36); Mean Corpuscular Volume 82.7 fL (81-99); Mean Platelet Vol. 9.6 fl (6.2-12.0); Monocyte% 6.2 % (0-10); NRBC Flagged by Analyzer 0 % (0-5); Neutrophil # 7.07 X10^3/uL (2.7-7.7); Neutrophil % 62.8 % (47-70); Platelet Count 306 K/mm3 (150-450); RBC Distribution Width CV 13.2 % (11.6-14.6); RBC Distribution Width SD 39.5 fl (35.1-43.9); Red Blood Count 4.81 M/mm3 (4.2-5.4); White Blood Count 11.3 K/mm3 (4.4-11.0)
[2022-05-26 23:52] LABS: Color, Urine Yellow (Yellow); Glucose, Dipstick Normal (Normal); Ketone-Dipstick 5 mg/dl (Negative); Leukocyte Esterase-Dipstick 25 /ul (Negative); Nitrite-Dipstick Negative (Negative); Occult Blood-Urine 250 /ul (Negative); Protein-Dipstick 30 mg/dl (Negative); Specific Gravity, Urine 1.025 (1.002-1.030); Urine Bilirubin Dipstick Negative (Negative); Urine Clarity Sl. Cloudy (Clear); Urine Urobilinogen Normal (Normal)
[2022-05-26 23:58] LABS: Red Blood Cells-Urine 50-100 SEEN /hpf (0-5)
[2022-05-26 23:59] LABS: Bacteria 1+ /hpf (None Seen); Squamous Epithelial Cells - UA 0-5 SEEN /hpf (5-10); White Blood Cells 0-5 SEEN /hpf (0-5)
--- NOTE | 2022-05-26 23:59 | ED.RN ---
Pt stated suicidal thoughts on and off again for years. Denies thoughts currently. Stated seeing a counselor currently and stopped taking antidepressants. Pt was educated on importance of taking medications and continuing to seek help for mental illness.
[2022-05-27 00:07] LABS: Internal QC Validated? YES +Cl - CLEAR BKGD; Pregnancy, Serum, hCG Quali. NEGATIVE Negative
--- NOTE | 2022-05-27 00:08 | CT_ITS ---
STUDY: CT ABDOMEN AND PELVIS WITHOUT CONTRAST REASON FOR EXAM: Female, 36 years old. flank pain RADIATION DOSAGE (If Supplied By Facility): CTDIvol = ( 15.585 ) mGy, DLP = ( 1100.47 ) mGycm TECHNIQUE: Transaxial images were obtained from the dome of the diaphragm to the symphysis pubis without oral contrast, and without intravenous contrast. Sagittal and coronal images were reconstructed. Individualized dose optimization techniques were used for this CT. COMPARISON: None. FINDINGS: The visualized lung bases are unremarkable. The visualized portions of the heart are within normal limits. Normal liver. There are surgical clips in the gallbladder fossa consistent with a prior cholecystectomy. Normal spleen. Normal pancreas. Normal bilateral adrenal glands. Normal right kidney. Mild left hydronephrosis. Stone near the left UPJ measuring 6 mm. Normal visualized stomach. Normal small intestine. Normal colon. The appendix is visualized and appears normal. Normal abdominal aorta. Normal inferior vena cava. Normal retroperitoneum. Normal urinary bladder. Normal visualized uterus. Left ovarian cyst measuring 4.3 x 4 cm Normal abdominal wall. Normal osseous structures. CT/Abdomen/Pelvis without Cont IMPRESSION: Left-sided hydronephrosis with stone near the left UPJ. Electronically Signed: Juan Yancey DO at 1:01 EDT ,
[2022-05-27 00:16] LABS: AST(SGOT) 15 U/L (15-37); Alanine Aminotransfer ALT/SGPT 32 U/L (13-56); Albumin, Serum 3.5 g/dL (3.2-5.0); Alkaline Phosphatase 96 U/L (45-117); Anion Gap 7 (5-15); BUN 13 mg/dL (7-18); BUN/Creat Ratio 15.9 RATIO (10-20); Bilirubin, Direct 0.11 mg/dL (0.00-0.30); Calcium,Total 8.6 mg/dL (8.5-10.1); Chloride 112 mmol/L (98-107); Creatinine, Serum 0.82 mg/dL (0.55-1.02); EST Glomerular Filtration Rate 85 mL/min (>60); Est Glom Filt Rate - Afr Amer 103 mL/min (>60); Globulin 4.1 g/dL (2.2-4.2); Glucose 108 mg/dL (74-106); Lipase 100 U/L (73-393); Potassium 3.4 mmol/L (3.5-5.1); Protein, Total 7.6 g/dL (6.4-8.2); Sodium Level 144 mmol/L (136-145)
[2022-05-27] MEDS: Ondansetron 4 MG/2 ML Vial IV (00:16)
[2022-05-27] MEDS: Morphine 4 MG/ML Syringe IV (00:16)
[2022-05-27 01:00] VITALS: RESP 20
[2022-05-27] MEDS: oxyCODONE 5 MG Tablet 10 MG PO (01:31)
[2022-05-27 01:34] VITALS: BP 136/81; PULSE 80; RESP 19; TEMP 36.6; O2SAT 97
== END 2022-05-27 01:41 | disposition home or self-care (01) ==
PROVIDERS: Emergency Provider Emergency Medicine; Visit Provider Emergency Medicine
DX: N83.202 Unspecified ovarian cyst, left side (principal); F32.A Depression, unspecified; N13.2 Hydronephrosis with renal and ureteral calculous obstruction; N23 Unspecified renal colic; E66.9 Obesity, unspecified; Z79.899 Other long term (current) drug therapy
CPT/HCPCS: 74176; 80048; 80076; 81001; 83690; 84703; 85025; 96361; 96374; 96375; 99284; J7030; A4216; J2405

== ENCOUNTER 2022-06-16 10:03 | Day surgery (SDC) | payer MEDICAID, SELFPAY ==
[2022-06-16 10:28] VITALS: BP 118/76; PULSE 70; RESP 16; TEMP 36.3; O2SAT 99; BMI 37.3
[2022-06-16] MEDS: Lactated Ringers 1,000 ML 15 ML IV (10:30)
[2022-06-16 10:32] LABS: Internal QC Validated? YES +Cl - CLEAR BKGD; Pregnancy, Urine Negative Negative
[2022-06-16] MEDS: Cefazolin 2 GM in 0.9% Normal Saline 100 ML IV (11:08)
--- NOTE | 2022-06-16 11:11 | DCINST_ITS ---
Discharge Instructions Diet Discharge Diet: No restrictions Activity Discharge Activity: Return to Normal Activity May resume sexual activity in: No Restrictions Dressing / Incision Call your doctor if you observe: Fever of 101 or Higher, Inability to urinate and Inability to have a bowel movement Follow Up Care Please Follow Up With: Leticia Ren MD When: call office for appt Test Results: Test results from this visit will be discussed in further detail at your follow- up appointment, if applicable. Discharge Plan Admission Attending Provider: Leticia Ren Primary Care Provider: Care PhysicianDi Primary Discharge Orders/Prescriptions Prescriptions: New ondansetron HCl [ondansetron HCl] 8 mg tablet 8 mg PO Q8H PRN PRN (Reason: Nausea) 7 Days Qty: 20 0RF oxycodone-acetaminophen [oxycodone-acetaminophen] 5-325 mg tablet 2 tab PO Q8H PRN PRN (Reason: Pain) 7 Days Qty: 20 0RF cephalexin [cephalexin] 500 mg capsule 500 mg PO Q12 3 Days Qty: 6 0RF phenazopyridine [Pyridium] 200 mg tablet 200 mg PO TID PRN PRN (Reason: Bladder Spasms) 7 Days Qty: 30 0RF Continued acetazolamide 500 mg capsule, extended release 500 mg PO BID ketorolac 10 mg tablet 10 mg PO Q6H PRN (Reason: pain) 5 Days Qty: 20 0RF oxycodone-acetaminophen [Percocet] 5-325 mg tablet 1 tab PO Q6H PRN (Reason: pain) 3 Days Qty: 12 0RF Referrals / Follow Up: Care PhysicianDi Primary [Primary Care Provider] - Disposition Disposition (needs filled in before D/C Order can be placed): Home, Self Care
--- NOTE | 2022-06-16 11:14 | OP.PCM_ITS ---
Report of Operation Date of Procedure: 06/16/22 Pre-Operative Diagnosis: left ureteral calculus Post-Operative Diagnosis: same Surgery/Procedure Performed:: cystoscopy, left ureteroscopy, left ureteral stent insertion Surgeon: Leticia Ren Type of Anesthesia: General Description of Procedure: The patient is a 36-year-old female diagnosed with a proximal left ureteral calculus with obstruction. She now presents for surgical intervention. Informed consent was obtained. The patient was taken to the operating room placed on the operating room table. Anesthesia monitored the head, neck, airway, IV access and vital signs throughout the case. Once anesthesia was appropriate ministered the patient was placed in dorsolithotomy position was prepped and draped in usual sterile fashion. The cystoscope was inserted through the urethra under direct visualization into the urinary bladder. The bladder mucosa was found to be within normal limits. The left ureteral orifice was identified and intubated with a 0.035 Glidewire. A semirigid ureteroscope was able to be advanced all the way to the proximal ureter without evidence of a stone. A second Glidewire was then passed and a ureteral access sheath was placed over the Glidewire. This was done under fluoroscopic visualization. The flexible ureteroscope was then inserted through the reaccessed sheath into the ureter and was advanced without difficulty until the area of the UPJ was reached. At this point there is a very narrowed area that the ureteroscope would not pass through. The wire was clearly seen passing through the area of narrowing. The decision was made to remove the ureteral access sheath and place a stent. The ureteral access sheath was then removed with direct visualization with the ureteroscope revealing no evidence of injury to the ureter. A 6 [place] 26 cm JJ stent was then passed over the 0.035 Glidewire with good positioning beyond the narrowing in the renal pelvis as well as the urinary bladder. The patient's bladder was then emptied and the case was terminated. The patient was awakened and taken to the recovery room in good condition. There were no complications during this procedure. Grafts/Implants Used: 6 x 26 JJ stent Complications none Admit VTE Documentation VTE Present on Admission: Yes VTE Mechan Device Prophylaxis: SCD's VTE Pharm Prophylaxis ordered?: No Reason prophylaxis not ordered:: Treatment Not Indicated
[2022-06-16 11:57] VITALS: BP 118/76; BP 125/77; PULSE 96; RESP 16; TEMP 36.8; O2SAT 100
[2022-06-16 12:00] VITALS: BP 118/76; BP 144/81; PULSE 105; RESP 14; O2SAT 100
[2022-06-16 12:15] VITALS: BP 118/76; BP 134/91; PULSE 75; RESP 14; O2SAT 100
[2022-06-16 12:30] VITALS: BP 118/76; BP 129/85; PULSE 72; RESP 16; O2SAT 99
[2022-06-16 12:45] VITALS: BP 118/76; BP 141/91; PULSE 76; RESP 16; TEMP 36.7; O2SAT 96
== END 2022-06-16 13:15 | disposition home or self-care (01) ==
LOC: SDC 10:03 → AC 10:04
PROVIDERS: Anesthesiology; Referring Provider Urology; Visit Provider Urology
PROC: 0TJ98ZZ Inspection of Ureter, Via Natural or Artificial Opening Endoscopic (ICD-10-PCS; CPT 52352; principal; 2022-06-16 11:45)
DX: N13.6 Pyonephrosis (principal); F33.2 Major depressive disorder, recurrent severe without psychotic features; I10 Essential (primary) hypertension; F41.1 Generalized anxiety disorder
CPT/HCPCS: 52332; 00910; 76000; 81025; J7120; J2405

== ENCOUNTER 2022-06-27 05:42 | Day surgery (SDC) | payer MEDICAID, SELFPAY ==
[2022-06-27] VITALS (8 sets, daily range): BP systolic 131–165; BP diastolic 77–104; PULSE 69–83; RESP 14–18; TEMP 36.1–36.6; O2SAT 89–100; BMI 37.3
[2022-06-27] MEDS: Lactated Ringers 1,000 ML 15 ML IV ×2 (06:10→10:18)
[2022-06-27 06:47] LABS: Internal QC Validated? YES +Cl - CLEAR BKGD; Pregnancy, Urine Negative Negative
[2022-06-27] MEDS: Cefazolin 2 GM in 0.9% Normal Saline 100 ML IV (07:26)
--- NOTE | 2022-06-27 08:18 | DCINST_ITS ---
Discharge Instructions Diet Discharge Diet: No restrictions Activity Discharge Activity: Return to Normal Activity May resume sexual activity in: No Restrictions Dressing / Incision Call your doctor if you observe: Fever of 101 or Higher, Inability to urinate and Inability to have a bowel movement Follow Up Care Please Follow Up With: Leticia Ren MD When: Call the office for an appointment to be seen in 2 weeks Test Results: Test results from this visit will be discussed in further detail at your follow- up appointment, if applicable. Discharge Plan Admission Attending Provider: Leticia Ren Primary Care Provider: Care PhysicianDi Primary Discharge Orders/Prescriptions Prescriptions: Continued acetazolamide 500 mg capsule, extended release 500 mg PO BID oxycodone-acetaminophen [Percocet] 5-325 mg tablet 1 tab PO Q6H PRN (Reason: pain) 3 Days Qty: 12 0RF ondansetron HCl 8 mg tablet 8 mg PO Q8H PRN PRN (Reason: Nausea) 7 Days Qty: 20 0RF phenazopyridine [Pyridium] 200 mg tablet 200 mg PO TID PRN PRN (Reason: Bladder Spasms) 7 Days Qty: 30 0RF ciprofloxacin HCl [Cipro] 500 mg tablet 500 mg PO BID Label Comments: Take 1 tablet by mouth twice a day Referrals / Follow Up: Care Physician,Di Primary [Primary Care Provider] - Disposition Disposition (needs filled in before D/C Order can be placed): Home, Self Care
--- NOTE | 2022-06-27 08:20 | PCM.OPRPT ---
Report of Operation Date of Procedure: 06/27/22 Pre-Operative Diagnosis: Left ureteral calculus Post-Operative Diagnosis: Same, passed Surgery/Procedure Performed:: Cystoscopy, left ureteroscopy, left retrograde pyelogram, left stent removal Surgeon: Leticia Ren Type of Anesthesia: General Description of Procedure: The patient is a 36-year-old female with a proximal left ureteral calculus that I was unable to gain access to secondary to a mild narrowing at the proximal ureter. She was subsequently stented and now presents for repeat surgical intervention. Informed consent was obtained. Patient was taken to the operating room and placed on the operating room table. Anesthesia monitored the head, neck, airway, IV access and vital signs throughout the case. Once anesthesia was appropriately administered, the patient was placed into dorsolithotomy position was prepped and draped in usual sterile fashion. The cystoscope was inserted through the urethra under direct visualization into the urinary bladder. The stent was easily observed. A 0.035 Glidewire was passed alongside the stent which was then removed and a second Glidewire was placed. The flexible ureteroscope was then placed over one of the Glidewire and access was obtained all the way to the renal pelvis without difficulty. Each calyx was individually directly visualized. There was no stone identified. To confirm no stone, a retrograde pyelogram was performed through the ureteroscope which did reveal that the calyces were blunted and dilated likely secondary to the ureteral narrowing. The entire length of the ureter was directly visualized and no stone was identified. There were no areas of erythema or injury observed on exiting of the ureter and the decision was made to leave her without a ureteral stent. She was then awakened and taken to the recovery room in good condition. There were no complications during this procedure. Grafts/Implants Used: None Complications None Admit VTE Documentation VTE Present on Admission: Yes VTE Mechan Device Prophylaxis: SCD's VTE Pharm Prophylaxis ordered?: No Reason prophylaxis not ordered:: Treatment Not Indicated
[2022-06-27] MEDS: Ketorolac 30 MG/ML Syringe IV (10:15)
== END 2022-06-27 10:57 | disposition home or self-care (01) ==
LOC: SDC 05:44 → AC 05:44
PROVIDERS: Anesthesiology; Referring Provider Urology; Visit Provider Urology
PROC: 0TJ98ZZ Inspection of Ureter, Via Natural or Artificial Opening Endoscopic (ICD-10-PCS; CPT 52352; principal; 2022-06-27 07:20)
DX: Z46.6 Encounter for fitting and adjustment of urinary device (principal); F33.2 Major depressive disorder, recurrent severe without psychotic features; Z87.442 Personal history of urinary calculi; F41.1 Generalized anxiety disorder; I10 Essential (primary) hypertension; Z79.899 Other long term (current) drug therapy
CPT/HCPCS: 52310; 76000; 81025; J7120; J2405

== ENCOUNTER 2022-07-18 01:01 | Emergency (ER) | payer MEDICAID, SELFPAY ==
[2022-07-18 01:02] VITALS: BP 182/101; PULSE 78; RESP 16; TEMP 36.4; O2SAT 100; BMI 38.2
--- NOTE | 2022-07-18 01:17 | CT_ITS ---
EXAM: CT ABDOMEN AND PELVIS WITHOUT INTRAVENOUS CONTRAST CLINICAL INDICATION: left flank pain left flank pain TECHNIQUE: Helically acquired images were obtained of the abdomen and pelvis without intravenous contrast. This CT exam was performed using one or more of the following dose reduction techniques: automated exposure control, adjustment of the mA and/or kV according to patient size, and/or use of iterative reconstruction technique. This report was created using [employer] report generation technology. RADIATION DOSE: CTDIvol = 19.82 mGy, DLP = 1064.75 mGy-cm COMPARISON: CT scan abdomen and pelvis 05/27/2022 and 10/24/2020. FINDINGS: LOWER THORAX: As seen on axial image 7, there is a 4.5 mm pleural-based left lower lobe lung nodule. This has not increased in size since the 2020 study and no further evaluation is advised. There is minimal right pleural fluid, similar to previous exams. No cardiomegaly. No significant pericardial effusion. ABDOMEN: LIVER: Unremarkable. Homogeneous. GALLBLADDER AND BILE DUCTS: Gallbladder is surgically absent. No intra- or extrahepatic biliary ductal dilation. PANCREAS: Unremarkable. No focal cystic mass. SPLEEN: Unremarkable. Normal size without focal cystic or solid mass. ADRENALS: Unremarkable. No nodules. KIDNEYS AND URETERS: There is an 8 mm nonobstructive left lower pole renal calculus. There is mild hydronephrosis of the left kidney and there is mild left perinephric and periureteral fat infiltration. There is no demonstrated ureteral calculus. STOMACH AND BOWEL: Unremarkable. No stomach or bowel distention. No focal inflammatory change. PELVIS: APPENDIX: A normal-appearing appendix is seen on axial images 117-126. BLADDER: Unremarkable. REPRODUCTIVE: There is a 4.5 cm-appearing left ovarian cyst. ABDOMEN and PELVIS: INTRAPERITONEAL SPACE: Unremarkable. No ascites or other fluid collection. No free air. BONES/JOINTS: There are no visualized acute osseous abnormalities. No suspicious lytic or blastic abnormality. SOFT TISSUES: Unremarkable. No discrete abdominal or pelvic wall hernia. VASCULATURE: Unremarkable. Abdominal aorta is non-dilated. LYMPH NODES: Unremarkable. No enlarged lymph nodes. CT/Abdomen/Pelvis without Cont IMPRESSION: 1. Mild hydronephrosis of the left kidney without demonstrated ureteral calculus. Potential etiologies for the hydronephrosis would include recent passage of a left ureteral calculus, pyelonephritis, or left ureteral obstruction of indeterminate etiology. 2. 8 mm nonobstructive left lower pole renal calculus. 3. 4.5 cm left ovarian cyst. No follow-up is necessary. 4. Previous cholecystectomy. Electronically Signed: Constantine Cartagena MD at 2:19 EST Reading Location ID and State: [facility] / [place] , Service support ,
--- NOTE | 2022-07-18 01:21 | EX.ED.DYSGE1 ---
HPI History of Present Illness Chief Complaint: Flank Pain Narrative Narrative: Patient is a 36-year-old female with previous history of left ureteral calculus as well as left sided ovarian cyst and pseudotumor cerebri. She states that she recently had 2 procedures by urology in order to try and remove her left kidney stone. She states a stent was placed as well. Patient states that when the procedures were performed the urologist could not find any stone. She states that she was doing well but has had intermittent pain since those procedures. She states evening the pain spiked and is in her left side radiating towards her groin. She denies any fevers or chills nausea or vomiting or injury. She states she is concerned however about a repeat kidney stone based on the location of her pain and therefore comes in for repeat evaluation [facility] Medical History Bruising Cardiology follow-up encounter Easy bruising Generalized anxiety disorder Heartburn History of echocardiogram History of IBS Kidney stones Left ureteral calculus Major depressive disorder, recurrent severe without psychotic features Migraines Non-smoker Ovarian cyst PTSD (post-traumatic stress disorder) Shortness of breath on exertion Home Medications acetazolamide 500 mg capsule,extended release 500 mg PO BID PSEUDOTUMOR 06/23/21 [History Last Taken Unknown] oxycodone-acetaminophen 5 mg-325 mg tablet (Percocet) 1 tab PO Q6H PRN pain 3 days #12 tabs 05/27/22 [Rx Last Taken Unknown] ondansetron HCl 8 mg tablet 8 mg PO Q8H PRN PRN Nausea 7 days #20 TABLETS 06/16/22 [Rx Last Taken Unknown] phenazopyridine 200 mg tablet (Pyridium) 200 mg PO TID PRN PRN Bladder Spasms 7 days #30 tabs 06/16/22 [Rx Last Taken Unknown] ondansetron 4 mg disintegrating tablet 4 mg PO TID PRN nausea and vomiting #21 tabs 07/18/22 [Rx Last Taken Unknown] oxycodone-acetaminophen 5 mg-325 mg tablet (Percocet) 1 tab PO Q6H PRN pain 3 days #12 tabs 07/18/22 [Rx Last Taken Unknown] sulfamethoxazole 800 mg-trimethoprim 160 mg tablet (Bactrim DS) 1 tab PO BID 7 days #14 tabs 07/18/22 [Rx Last Taken Unknown] Allergy/AdvReac Type Severity Reaction Status Date / Time No Known Allergies Allergy Verified 07/18/22 01:05 Surgical History History of section History of cholecystectomy History of umbilical hernia repair History of urethral stent Hx of dilation and curettage Hx of tympanostomy tubes Social History Smoking Status: Never smoker ROS ROS ED Constitutional Constitutional ED: Denies chills or fever(s) ENT ENT ED: Denies sore throat Cardiovascular Cardiovascular: Denies chest pain Respiratory/Chest Respiratory/Chest: Denies cough or dyspnea Gastrointestinal Gastrointestinal: Reports abdominal pain and nausea; Denies diarrhea or vomiting Genitourinary Genitourinary ED: Denies dysuria or hematuria Musculoskeletal Musculoskeletal: Reports back pain Integumentary Denies rash Neurologic Neurologic: Denies headache(s) Hematologic/Lymphatic Hematologic/Lymphatic: Denies easy bleeding or easy bruising EXAM Physical Exam Const Vital Signs: 07/18/22 01:02 07/18/22 01:06 Temperature 97.6 F L Temperature Source Temporal Pulse Rate 78 Respiratory Rate 16 Respiratory Pattern Normal Blood Pressure 182/101 H Blood Pressure Mean 128 Pulse Ox 100 Oxygen Delivery Method Room Air Positive well nourished, well developed and obese General Appearance ED: well developed Nutritional Appearance: obese HEENT Reports moist mucous membranes Eyes PERRL and EOMs intact bilaterally Neck supple Resp normal respiratory effort and clear to auscultation bilaterally Cardio regular rate and regular rhythm Rate: other Other Details: Radial pulses are plus 2 out of 4 bilaterally are equal and symmetric GI non-distended GI Narrative: No voluntary guarding or rigidity no pulsatile mass. There is mild pain with palpation of the left upper mid and lower abdomen Auscultation: normoactive bowel sounds Palpation: soft Back/Spine Negative for no CVA tenderness Back/Spine Narrative: Mild left CVA pain noted Extremity normal to inspection Neuro oriented x3 and CN's II-XII intact bilaterally Sensorium / Orientation: alert Psych Psych Narrative: Patient has a flat affect Skin no rashes or lesions noted Skin Narrative: No overlying soft tissue changes to suggest trauma or infection MDM MDM MDM Narrative Medical decision making narrative: Patient presented to the ER hypertensive but afebrile. With her history of kidney stone and now unilateral flank pain there is concern for repeat stone but as she is also undergone recent procedures there was concern for possible infectious process. Therefore basic labs and a repeat CT scan were obtained. Labs shows leukocytosis with a white blood cell count of 12.6 but there is no left shift. Kidney function is normal with creatinine 0.83 going against acute kidney injury. Urine does show signs of infection with +2 bacteria and no epithelial contamination. CT scan confirmed a stone within the left kidney however this would not be causing her symptoms. There was hydronephrosis present however and therefore this could be related to a stone that was recently passed versus infectious process. As the patient does have unilateral pain with +2 bacteria and leukocytosis I have concern for infection. Therefore the urine will be sent for culture. Patient will be started on antibiotics. At this time she does not have findings to suggest urosepsis or acute kidney injury I do not feel she needs admitted and actually placed on symptomatic medications and will follow-up with urology for repeat evaluation. Lab Data Attestation: I reviewed the patient's lab results. Labs: Laboratory Results - last 24 hr 07/18/22 07/18/22 07/18/22 01:14 01:14 01:22 WBC 12.6 H RBC 4.91 Hgb 13.1 Hct 40.3 MCV 82.1 MCH 26.7 L MCHC 32.5 RDW Std Deviation 40.8 RDW Coeff of Theresa 13.8 Plt Count 288 MPV 9.4 Immature Gran % (Auto) 0.200 Neut % (Auto) 58.6 Lymph % (Auto) 31.7 [place] % (Auto) 6.8 Eos % (Auto) 2.2 Baso % (Auto) 0.5 Absolute Neuts (auto) 7.4 Absolute Lymphs (auto) 3.99 Nucleated RBC % 0 Sodium 140 Potassium 3.6 Chloride 108 H Carbon Dioxide 26.0 Anion Gap 6 BUN 14 Creatinine 0.83 Estim Creat Clear Calc 89.41 Est GFR (MDRD) Af Amer 101 Est GFR (MDRD) Non-Af 84 BUN/Creatinine Ratio 16.9 Glucose 99 Calcium 8.7 Urine Color Yellow Urine Clarity Clear Urine pH 5.0 Ur Specific [place] 1.020 Urine Protein 30 H Urine Glucose (UA) Normal Urine Ketones Negative Urine Occult Blood 250 H Urine Nitrite Negative Urine Bilirubin Negative Urine Urobilinogen Normal Ur Leukocyte Esterase 25 H Urine RBC > 100 SEEN Urine WBC 0-5 SEEN Ur Squamous Epith Cells 0-5 SEEN Ur Transition Epith Cell 0-5 SEEN Urine Bacteria 2+ Urine Mucus 0 SEEN Urine Test Negative Radiography Diagnostic Testing: Clinical Impression(s) from Imaging Studies Abdomen/Pelvis CT 07/18/22 01:17 IMPRESSION: 1. Mild hydronephrosis of the left kidney without demonstrated ureteral calculus. Potential etiologies for the hydronephrosis would include recent passage of a left ureteral calculus, pyelonephritis, or left ureteral obstruction of indeterminate etiology. 2. 8 mm nonobstructive left lower pole renal calculus. 3. 4.5 cm left ovarian cyst. No follow-up is necessary. 4. Previous cholecystectomy. Electronically Signed: Constantine Cartagena MD at 2:19 EST Reading Location ID and State: [facility] / [place] , Service support , Discharge Plan Triage Chief Complaint: Flank Pain ED Provider: Jesse Abdullahi Dx/Rx/DC Orders Clinical Impression: Pyelonephritis, Hydronephrosis Instructions: ED Pyelonephritis, Female (Adult) Prescriptions: New sulfamethoxazole-trimethoprim [Bactrim DS] 800-160 mg tablet 1 tab PO BID 7 Days Qty: 14 0RF ondansetron 4 mg tablet,disintegrating 4 mg PO TID PRN (Reason: nausea and vomiting) Qty: 21 0RF oxycodone-acetaminophen [Percocet] 5-325 mg tablet 1 tab PO Q6H PRN (Reason: pain) 3 Days Qty: 12 0RF No Action acetazolamide 500 mg capsule, extended release 500 mg PO BID oxycodone-acetaminophen [Percocet] 5-325 mg tablet 1 tab PO Q6H PRN (Reason: pain) 3 Days Qty: 12 0RF ondansetron HCl 8 mg tablet 8 mg PO Q8H PRN PRN (Reason: Nausea) 7 Days Qty: 20 0RF phenazopyridine [Pyridium] 200 mg tablet 200 mg PO TID PRN PRN (Reason: Bladder Spasms) 7 Days Qty: 30 0RF Primary Care Provider: Care Physician,No Primary Referrals: Leticia Ren MD [Med Staff - Active Staff] - Care Physician,No Primary [Primary Care Provider] - Activity Restrictions/Additional Instructions: Please follow-up with urology for repeat evaluation and return to the ER should you have any further concerns Disposition Disposition: Home, Self Care
[2022-07-18 01:27] LABS: Mucous, Urine 0 SEEN /hpf (<or=2+)
[2022-07-18 01:29] LABS: Absolute Lymphocyte Count 3.99 X10^3/uL (0.83-4.51); Absolute Neutrophil Count 7.4 X10^3/uL (2.0-7.7); Basophil# 0.06 X10^3/uL; Basophil% 0.5 % (0-1); Eosinophil# 0.28 X10^3/uL; Eosinophils% 2.2 % (0-5); Hematocrit 40.3 % (37-47); Hemoglobin 13.1 g/dL (12.0-15.0); Lymphocyte # 3.99 X10^3/ul (0.83-4.51); Lymphocyte % 31.7 % (19-41); Mean Corp Hgb Conc 32.5 g/dL (32-36); Mean Corpuscular Hgb 26.7 pg (27.0-32.0); Mean Corpuscular Volume 82.1 fL (81-99); Mean Platelet Vol. 9.4 fl (6.2-12.0); Monocyte# 0.85 X10^3/uL; Monocyte% 6.8 % (0-10); NRBC Flagged by Analyzer 0 % (0-5); Neutrophil # 7.37 X10^3/uL (2.7-7.7); Neutrophil % 58.6 % (47-70); Platelet Count 288 K/mm3 (150-450); RBC Distribution Width CV 13.8 % (11.6-14.6); RBC Distribution Width SD 40.8 fl (35.1-43.9); Red Blood Count 4.91 M/mm3 (4.2-5.4); White Blood Count 12.6 K/mm3 (4.4-11.0)
[2022-07-18] MEDS: 0.9% Normal Saline 1,000 ML 999 ML IV (01:29)
[2022-07-18 01:30] LABS: Color, Urine Yellow (Yellow); Glucose, Dipstick Normal (Normal); Ketone-Dipstick Negative (Negative); Leukocyte Esterase-Dipstick 25 /ul (Negative); Nitrite-Dipstick Negative (Negative); Occult Blood-Urine 250 /ul (Negative); Protein-Dipstick 30 mg/dl (Negative); Urine Bilirubin Dipstick Negative (Negative); Urine Clarity Clear (Clear); Urine Urobilinogen Normal (Normal)
[2022-07-18] MEDS: Ketorolac 30 MG/ML Syringe IV (01:32)
[2022-07-18] MEDS: Ondansetron 4 MG/2 ML Vial IV (01:32)
[2022-07-18 01:33] LABS: Internal QC Validated? YES +Cl - CLEAR BKGD; Pregnancy, Urine Negative Negative
[2022-07-18 01:35] LABS: Bacteria 2+ /hpf (None Seen); Red Blood Cells-Urine > 100 SEEN /hpf (0-5); Squamous Epithelial Cells - UA 0-5 SEEN /hpf (5-10); Transitional Epithelial - Ur 0-5 SEEN /hpf (0-5); White Blood Cells 0-5 SEEN /hpf (0-5)
[2022-07-18 01:41] LABS: Anion Gap 6 (5-15); BUN 14 mg/dL (7-18); BUN/Creat Ratio 16.9 RATIO (10-20); Calcium,Total 8.7 mg/dL (8.5-10.1); Chloride 108 mmol/L (98-107); Creatinine, Serum 0.83 mg/dL (0.55-1.02); EST Glomerular Filtration Rate 84 mL/min (>60); Est Glom Filt Rate - Afr Amer 101 mL/min (>60); Estimated Creatinine Clearance 89.41 ml/min; Glucose 99 mg/dL (74-106); Potassium 3.6 mmol/L (3.5-5.1); Sodium Level 140 mmol/L (136-145)
[2022-07-18] MEDS: Ceftriaxone 1 GM/50 ML BAG IV (02:09)
--- NOTE | 2022-07-18 03:16 | ED.RN ---
pt c/o waking up sweaty, blood sugar 149, vss
== END 2022-07-18 03:22 | disposition home or self-care (01) ==
PROVIDERS: Emergency Provider Emergency Medicine; Visit Provider Emergency Medicine
DX: N13.6 Pyonephrosis (principal); E66.9 Obesity, unspecified; Z79.899 Other long term (current) drug therapy; Z87.442 Personal history of urinary calculi
CPT/HCPCS: 74018; 74176; 80048; 81001; 81025; 85025; 87086; 96361; 96365; 96375; 99282; A4216; J2405

== ENCOUNTER → 2022-07-18 | Outpatient (CLI) | payer MEDICAID, SELFPAY ==
--- NOTE | 2022-07-18 13:31 | RAD_ITS ---
STUDY: X-RAY - ABDOMEN/PELVIS REASON FOR EXAM: Female, 36 years old. STONES TECHNIQUE: Single AP view of the abdomen / pelvis. COMPARISON: Comparison is made with prior CT scan of the abdomen and pelvis done earlier in the day. FINDINGS: Normal visualized lung bases. There is a moderate amount of colonic fecal material. The patient is status post cholecystectomy. There is a 4.6 mm calculus overlying the transverse process of the L3 vertebrae on the left side. This may represent a calculus in the proximal portion of the left ureter. Normal soft tissue structures. Normal visualized osseous structures. RAD/Abdomen Single View IMPRESSION: Findings suggestive of a 4.6 mm calculus in the proximal portion of the left ureter. Electronically Signed: Molina Luis MD at 15:39 EST ,
== END | disposition home or self-care (01) ==
PROVIDERS: Referring Provider Urology; Visit Provider Urology
DX: N20.0 Calculus of kidney (principal)
CPT/HCPCS: 74018

== ENCOUNTER 2022-08-18 01:12 | Emergency (ER) | payer MEDICAID, SELFPAY ==
[2022-08-18 01:13] VITALS: BP 190/120; PULSE 84; RESP 20; TEMP 36.1; O2SAT 100; BMI 37.9
[2022-08-18 01:40] LABS: Mucous, Urine 0 SEEN /hpf (<or=2+); Squamous Epithelial Cells - UA 0 SEEN /hpf (5-10)
[2022-08-18 01:41] LABS: Absolute Lymphocyte Count 3.18 X10^3/uL (0.83-4.51); Absolute Neutrophil Count 10.7 X10^3/uL (2.0-7.7); Basophil# 0.04 X10^3/uL; Basophil% 0.3 % (0-1); Eosinophil# 0.18 X10^3/uL; Eosinophils% 1.2 % (0-5); Hematocrit 39.8 % (37-47); Hemoglobin 13.1 g/dL (12.0-15.0); Lymphocyte # 3.18 X10^3/ul (0.83-4.51); Lymphocyte % 21.3 % (19-41); Mean Corp Hgb Conc 32.9 g/dL (32-36); Mean Corpuscular Volume 81.9 fL (81-99); Mean Platelet Vol. 9.6 fl (6.2-12.0); Monocyte# 0.78 X10^3/uL; Monocyte% 5.2 % (0-10); NRBC Flagged by Analyzer 0 % (0-5); Neutrophil # 10.69 X10^3/uL (2.7-7.7); Neutrophil % 71.7 % (47-70); Platelet Count 302 K/mm3 (150-450); RBC Distribution Width CV 13.6 % (11.6-14.6); RBC Distribution Width SD 40.1 fl (35.1-43.9); Red Blood Count 4.86 M/mm3 (4.2-5.4); White Blood Count 14.9 K/mm3 (4.4-11.0)
[2022-08-18 01:42] LABS: Color, Urine Yellow (Yellow); Glucose, Dipstick Normal (Normal); Ketone-Dipstick 5 mg/dl (Negative); Leukocyte Esterase-Dipstick 25 /ul (Negative); Nitrite-Dipstick Negative (Negative); Occult Blood-Urine 250 /ul (Negative); Protein-Dipstick 30 mg/dl (Negative); Urine Bilirubin Dipstick Negative (Negative); Urine Clarity Sl. Cloudy (Clear); Urine Urobilinogen Normal (Normal)
[2022-08-18 01:50] LABS: Red Blood Cells-Urine > 100 SEEN /hpf (0-5)
[2022-08-18 01:51] LABS: Bacteria 1+ /hpf (None Seen); Internal QC Validated? YES +Cl - CLEAR BKGD; Pregnancy, Serum, hCG Quali. NEGATIVE Negative; White Blood Cells 5-10 SEEN /hpf (0-5)
[2022-08-18 01:54] LABS: Anion Gap 6 (5-15); BUN 19 mg/dL (7-18); BUN/Creat Ratio 21.3 RATIO (10-20); Chloride 112 mmol/L (98-107); Creatinine, Serum 0.89 mg/dL (0.55-1.02); EST Glomerular Filtration Rate 77 mL/min (>60); Est Glom Filt Rate - Afr Amer 93 mL/min (>60); Estimated Creatinine Clearance 83.38 ml/min; Glucose 114 mg/dL (74-106); Potassium 3.8 mmol/L (3.5-5.1); Sodium Level 143 mmol/L (136-145)
[2022-08-18] MEDS: Ketorolac 30 MG/ML Syringe IV (02:16)
[2022-08-18] MEDS: Ceftriaxone 1 GM/50 ML BAG IV (02:17)
[2022-08-18 02:32] LABS: CRP 6.24 mg/L (0.0-3.0)
[2022-08-18 02:44] LABS: Lactic Acid 0.8 mmol/L (0.4-1.9)
--- NOTE | 2022-08-18 03:18 | EX.ED.DYSGE1 ---
HPI History of Present Illness Chief Complaint: Flank Pain Narrative Narrative: Patient is a 36-year-old female with past medical history of pseudotumor cerebri and kidney stone. She states that she is scheduled to undergo surgery for her persistent stone. She states that over the past few weeks she will have days where her stomach hurts generally and then the next day the pain will be gone. She states she was discussing the recurrent abdominal discomfort with her urologist and there was no obvious cause. Patient states that there is been no trauma she denies any vomiting or diarrhea. She states she feels like her pain however worsened and was not responding to home medications so she comes in for evaluation [facility] Medical History Bruising Cardiology follow-up encounter Easy bruising Generalized anxiety disorder Heartburn History of echocardiogram History of IBS Kidney stones Left ureteral calculus Major depressive disorder, recurrent severe without psychotic features Migraines Non-smoker Ovarian cyst PTSD (post-traumatic stress disorder) Shortness of breath on exertion Home Medications acetazolamide 500 mg capsule,extended release 500 mg PO BID PSEUDOTUMOR 06/23/21 [History Last Taken Unknown] ondansetron 4 mg disintegrating tablet 4 mg PO TID PRN nausea and vomiting #21 tabs 07/18/22 [Rx Last Taken Unknown] oxycodone-acetaminophen 5 mg-325 mg tablet (Percocet) 1 tab PO Q6H PRN pain 3 days #12 tabs 08/18/22 [Rx Last Taken Unknown] Allergy/AdvReac Type Severity Reaction Status Date / Time No Known Allergies Allergy Verified 08/18/22 01:19 Surgical History History of section History of cholecystectomy History of umbilical hernia repair History of urethral stent Hx of dilation and curettage Hx of tympanostomy tubes Social History Smoking Status: Never smoker ROS ROS ED Constitutional Constitutional ED: Denies chills or fever(s) ENT ENT ED: Denies sore throat Cardiovascular Cardiovascular: Denies chest pain Respiratory/Chest Respiratory/Chest: Denies cough or dyspnea Gastrointestinal Gastrointestinal: Reports abdominal pain; Denies diarrhea, nausea or vomiting Genitourinary Genitourinary ED: Denies dysuria Musculoskeletal Musculoskeletal: Denies myalgias Integumentary Denies rash Neurologic Neurologic: Denies headache(s) Psychiatric Psychiatric: Reports anxiety Hematologic/Lymphatic Hematologic/Lymphatic: Denies easy bleeding or easy bruising EXAM Physical Exam Const Vital Signs: 08/18/22 01:13 08/18/22 03:42 Temperature 96.9 F L Temperature Source Temporal Pulse Rate 84 78 Respiratory Rate 20 H 18 Blood Pressure 190/120 H 142/60 H Blood Pressure Mean 143 Pulse Ox 100 96 Oxygen Delivery Method Room Air Positive well nourished, well developed and obese General Appearance ED: well developed Nutritional Appearance: obese HEENT Reports moist mucous membranes Eyes EOMs intact bilaterally Eyes Narrative: Patient has a chronically dilated left pupil from history of pseudotumor cerebri General Eye ED: Negative for scleral icterus Neck supple Resp normal respiratory effort and clear to auscultation bilaterally Cardio regular rate and regular rhythm Rate: other Other Details: Radial pulses are plus 2 out of 4 bilaterally are equal and symmetric Carotid pulses equal and symmetric as well GI non-distended GI Narrative: Abdomen soft and nondistended with normoactive bowel sounds. There is mild diffuse pain on palpation without voluntary guarding or rigidity. No pulsatile mass or fluid wave Auscultation: normoactive bowel sounds Palpation: soft Extremity normal to inspection Neuro oriented x3 and CN's II-XII intact bilaterally Sensorium / Orientation: alert Psych Psych Narrative: Patient is a nervous/anxious affect Skin no rashes or lesions noted General Skin Exam: Negative for jaundice MDM MDM MDM Narrative Medical decision making narrative: Patient presented to the ER hypertensive but otherwise with stable vital. Her abdomen is soft and nonsurgical and she reports pain that has been present off and on diffusely for multiple weeks. Chart review reveals she had a CT scan 30 days ago which revealed kidney stone and ovarian cyst but otherwise no acute finding. Therefore this time did not feel there is need for repeat scan and blood work was ordered. Patient's white count is elevated at 14.9 but her lactic acid is normal. There is no severe electrolyte derangement and kidney function is normal as well. Urine does show changes consistent with an infection and patient states she was recently started on Keflex from her urology. Therefore this time the urine will be sent for culture and she will be given a gram of Rocephin. After treatment with fluid Toradol and Rocephin patient had improvement of her abdominal pain and her abdomen remains soft and nonsurgical. Therefore at this time I do not feel there is need for repeat imaging and she can be discharged home and follow-up with her urologist as well as GI because of her recurrent symptoms. Lab Data Attestation: I reviewed the patient's lab results. Labs: Laboratory Results - last 24 hr 08/18/22 08/18/22 08/18/22 01:20 01:20 01:20 WBC 14.9 H RBC 4.86 Hgb 13.1 Hct 39.8 MCV 81.9 MCH 27.0 MCHC 32.9 RDW Std Deviation 40.1 RDW Coeff of [place] 13.6 Plt Count 302 MPV 9.6 Immature Gran % (Auto) 0.300 Neut % (Auto) 71.7 H Lymph % (Auto) 21.3 [place] % (Auto) 5.2 Eos % (Auto) 1.2 Baso % (Auto) 0.3 Absolute Neuts (auto) 10.7 H Absolute Lymphs (auto) 3.18 Nucleated RBC % 0 Sodium 143 Potassium 3.8 Chloride 112 H Carbon Dioxide 25.0 Anion Gap 6 BUN 19 H Creatinine 0.89 Estim Creat Clear Calc 83.38 Est GFR (MDRD) Af Amer 93 Est GFR (MDRD) Non-Af 77 BUN/Creatinine Ratio 21.3 H Glucose 114 H Lactic Acid Calcium 9.0 C-React Prot Ext Range 6.24 H Serum , Qual Urine Color Urine Clarity Urine pH Ur Specific [place] Urine Protein Urine Glucose (UA) Urine Ketones Urine Occult Blood Urine Nitrite Urine Bilirubin Urine Urobilinogen Ur Leukocyte Esterase Urine RBC Urine WBC Ur Squamous Epith Cells Urine Bacteria Urine Mucus 08/18/22 08/18/22 08/18/22 01:30 01:30 02:15 WBC RBC Hgb Hct MCV MCH MCHC RDW Std Deviation RDW Coeff of [place] Plt Count MPV Immature Gran % (Auto) Neut % (Auto) Lymph % (Auto) [place] % (Auto) Eos % (Auto) Baso % (Auto) Absolute Neuts (auto) Absolute Lymphs (auto) Nucleated RBC % Sodium Potassium Chloride Carbon Dioxide Anion Gap BUN Creatinine Estim Creat Clear Calc Est GFR (MDRD) Af Amer Est GFR (MDRD) Non-Af BUN/Creatinine Ratio Glucose Lactic Acid 0.8 Calcium C-React Prot Ext Range Serum , Qual NEGATIVE Urine Color Yellow Urine Clarity Sl. Cloudy Urine pH 5.0 Ur Specific [place] 1.030 Urine Protein 30 H Urine Glucose (UA) Normal Urine Ketones 5 H Urine Occult Blood 250 H Urine Nitrite Negative Urine Bilirubin Negative Urine Urobilinogen Normal Ur Leukocyte Esterase 25 H Urine RBC > 100 SEEN Urine WBC 5-10 SEEN Ur Squamous Epith Cells 0 SEEN Urine Bacteria 1+ Urine Mucus 0 SEEN Discharge Plan Triage Chief Complaint: Flank Pain ED Provider: Jesse Abdullahi Dx/Rx/DC Orders Clinical Impression: Nonspecific abdominal pain, Urinary tract infection, Pseudotumor cerebri Instructions: Abdominal Pain, Urinary Tract Infections in Women Prescriptions: New oxycodone-acetaminophen [Percocet] 5-325 mg tablet 1 tab PO Q6H PRN (Reason: pain) 3 Days Qty: 12 0RF No Action acetazolamide 500 mg capsule, extended release 500 mg PO BID ondansetron 4 mg tablet,disintegrating 4 mg PO TID PRN (Reason: nausea and vomiting) Qty: 21 0RF Primary Care Provider: Care Physician,No Primary Referrals: Kanu Vazquez DO [Med Staff - Active Staff] - Care Physician,No Primary [Primary Care Provider] - Activity Restrictions/Additional Instructions: Please continue the Keflex that was prescribed by your urologist as the urine sample does show changes concerning for infection today. Please continue to follow-up with urologist for definitive treatment of your known kidney stone secondary to recurrent abdominal pain also follow-up with gastroenterology for further evaluation. Please return to the ER should you have any further concerns. Disposition Disposition: Home, Self Care Discharge Date/Time: 08/18/22 03:45
[2022-08-18 03:42] VITALS: BP 142/60; PULSE 78; RESP 18; O2SAT 96
== END 2022-08-18 03:45 | disposition home or self-care (01) ==
PROVIDERS: Emergency Provider Emergency Medicine; Visit Provider Emergency Medicine
DX: N39.0 Urinary tract infection, site not specified (principal); G93.2 Benign intracranial hypertension; F41.8 Other specified anxiety disorders; F32.9 Major depressive disorder, single episode, unspecified; F43.10 Post-traumatic stress disorder, unspecified; Z79.899 Other long term (current) drug therapy; R10.9 Unspecified abdominal pain
CPT/HCPCS: 80048; 81001; 83605; 84703; 85025; 86140; 87086; 87088; 96365; 96366; 96375; 99282; J7030; A4216

== ENCOUNTER 2022-08-24 10:20 | Day surgery (SDC) | payer MEDICAID, SELFPAY ==
[2022-08-24] VITALS (8 sets, daily range): BP systolic 100–150; BP diastolic 80–99; PULSE 71–88; RESP 16–17; TEMP 36.2–37.6; O2SAT 97–100; BMI 38.0
[2022-08-24 10:58] LABS: Internal QC Validated? YES +Cl - CLEAR BKGD; Pregnancy, Urine Negative Negative
[2022-08-24] MEDS: Lactated Ringers 1,000 ML 15 ML IV (11:08)
[2022-08-24] MEDS: Cefazolin 2 GM in 0.9% Normal Saline 100 ML IV (12:25)
--- NOTE | 2022-08-24 13:09 | DCINST_ITS ---
Discharge Instructions Diet Discharge Diet: No restrictions Activity Discharge Activity: Return to Normal Activity Dressing / Incision Call your doctor if you observe: Fever of 101 or Higher, Inability to urinate and Inability to have a bowel movement Follow Up Care Please Follow Up With: Leticia Ren MD When: in 2-3 weeks in the office with KUB, call for appt Test Results: Test results from this visit will be discussed in further detail at your follow- up appointment, if applicable. Discharge Plan Admission Attending Provider: Leticia Ren Primary Care Provider: Levi PhysicianDi Primary Discharge Orders/Prescriptions Prescriptions: New ondansetron HCl [ondansetron HCl] 8 mg tablet 8 mg PO Q8H PRN PRN (Reason: Nausea) 7 Days Qty: 20 0RF oxycodone-acetaminophen [Percocet] 5-325 mg tablet 1 tab PO Q8H PRN (Reason: pain) 3 Days Qty: 14 0RF cephalexin [cephalexin] 500 mg capsule 500 mg PO Q12 3 Days Qty: 6 0RF Continued acetazolamide 500 mg capsule, extended release 500 mg PO BID [id number] 1 mg Tablet 1 tab PO DAILY Referrals / Follow Up: Care PhysicianDi Primary [Primary Care Provider] - Disposition Disposition (needs filled in before D/C Order can be placed): Home, Self Care
--- NOTE | 2022-08-24 13:26 | PCM.OPRPT ---
Report of Operation Date of Procedure: 08/24/22 Pre-Operative Diagnosis: Left renal calculus Post-Operative Diagnosis: Same Surgery/Procedure Performed:: Left renal extracorporal shockwave lithotripsy Surgeon: Leticia Ren Type of Anesthesia: General Specimen's removed: None Description of Procedure: The patient is a 36-year-old female with a left renal calculus causing left flank pain and hematuria. She presents for extracorporeal shockwave lithotripsy. Informed consent has been obtained. The patient was taken to the operating room and placed in a supine position on the lithotripter table. Anesthesia monitored the head, neck, airway, IV access and vital signs throughout the case. Once anesthesia was appropriately administered, the patient was appropriately aligned on the table with appropriate visualization of the stone. 3000 shocks were then applied to the calculus which appeared to be well fragmented at the conclusion of the case. The patient was then awakened and taken to the recovery room in good condition. There were no complications during this procedure. Grafts/Implants Used: None Complications None Admit VTE Documentation VTE Present on Admission: Yes VTE Mechan Device Prophylaxis: SCD's VTE Pharm Prophylaxis ordered?: No Reason prophylaxis not ordered:: Treatment Not Indicated
[2022-08-24] MEDS: oxyCODONE 5 MG Tablet PO (15:11)
[2022-08-24] MEDS: Acetaminophen 325 MG Tablet PO (15:12)
== END 2022-08-24 15:59 | disposition home or self-care (01) ==
LOC: SDC 10:20 → AC 10:51
PROVIDERS: Anesthesiology; Referring Provider Urology; Visit Provider Urology
PROC: (CPT 50590; principal; 2022-08-24 11:50)
DX: N13.6 Pyonephrosis (principal); F33.2 Major depressive disorder, recurrent severe without psychotic features; I10 Essential (primary) hypertension; F41.1 Generalized anxiety disorder; Z79.899 Other long term (current) drug therapy
CPT/HCPCS: 50590; 00873; 81025; J7120; J2405

== ENCOUNTER 2022-11-29 22:06 | Emergency (ER) | payer MEDICAID, SELFPAY ==
[2022-11-29 22:06] VITALS: BP 171/109; PULSE 90; RESP 16; TEMP 36.4; O2SAT 99; BMI 37.1
[2022-11-29 23:12] LABS: Absolute Lymphocyte Count 3.44 X10^3/uL (0.83-4.51); Absolute Neutrophil Count 7.3 X10^3/uL (2.0-7.7); Basophil# 0.05 X10^3/uL; Basophil% 0.4 % (0-1); Eosinophil# 0.18 X10^3/uL; Eosinophils% 1.5 % (0-5); Hematocrit 38.8 % (37-47); Lymphocyte # 3.44 X10^3/ul (0.83-4.51); Mean Corp Hgb Conc 33.5 g/dL (32-36); Mean Corpuscular Hgb 27.1 pg (27.0-32.0); Mean Corpuscular Volume 80.8 fL (81-99); Mean Platelet Vol. 9.6 fl (6.2-12.0); Monocyte# 0.87 X10^3/uL; Monocyte% 7.3 % (0-10); NRBC Flagged by Analyzer 0 % (0-5); Neutrophil # 7.25 X10^3/uL (2.7-7.7); Neutrophil % 61.2 % (47-70); Platelet Count 309 K/mm3 (150-450); RBC Distribution Width CV 13.5 % (11.6-14.6); RBC Distribution Width SD 38.8 fl (35.1-43.9); White Blood Count 11.9 K/mm3 (4.4-11.0)
[2022-11-29] MEDS: Ondansetron 4 MG/2 ML Vial IV (23:12)
[2022-11-29] MEDS: Ketorolac 15 MG/ML Vial IV (23:12)
[2022-11-29] MEDS: 0.9% Normal Saline 1,000 ML 250 ML IV (23:12)
[2022-11-29] MEDS: Morphine 4 MG/ML Syringe IV (23:12)
[2022-11-29 23:24] LABS: Internal QC Validated? YES +Cl - CLEAR BKGD; Pregnancy, Serum, hCG Quali. NEGATIVE Negative
[2022-11-29 23:27] LABS: Mucous, Urine 0 SEEN /hpf (<or=2+); Red Blood Cells-Urine 0 SEEN /hpf (0-5)
[2022-11-29 23:29] LABS: Anion Gap 6 (5-15); BUN 19 mg/dL (7-18); BUN/Creat Ratio 20.8 RATIO (10-20); Calcium,Total 8.8 mg/dL (8.5-10.1); Chloride 114 mmol/L (98-107); Creatinine, Serum 0.91 mg/dL (0.55-1.02); EST Glomerular Filtration Rate 75 mL/min (>60); Est Glom Filt Rate - Afr Amer 90 mL/min (>60); Estimated Creatinine Clearance 80.78 ml/min; Glucose 114 mg/dL (74-106); Potassium 3.9 mmol/L (3.5-5.1); Sodium Level 143 mmol/L (136-145)
[2022-11-29 23:30] LABS: Color, Urine Yellow (Yellow); Glucose, Dipstick Normal (Normal); Ketone-Dipstick Negative (Negative); Leukocyte Esterase-Dipstick Negative /ul (Negative); Nitrite-Dipstick Negative (Negative); Occult Blood-Urine Negative /ul (Negative); Protein-Dipstick 15 mg/dl (Negative); Specific Gravity, Urine 1.015 (1.002-1.030); Urine Bilirubin Dipstick Negative (Negative); Urine Clarity Clear (Clear); Urine Urobilinogen Normal (Normal)
[2022-11-29 23:38] LABS: Squamous Epithelial Cells - UA 0-5 SEEN /hpf (5-10); White Blood Cells 0-5 SEEN /hpf (0-5)
[2022-11-29 23:39] LABS: Bacteria 2+ /hpf (None Seen)
[2022-11-30 00:06] VITALS: BP 155/77; PULSE 71; RESP 16; O2SAT 97
--- NOTE | 2022-11-30 00:35 | EDS_ITS ---
HPI History of Present Illness Chief Complaint: Flank Pain Detail of Chief Complaint: Right-sided abdominal pain with dysuria and frequency Informant: patient Onset/Context/Timing Onset: Yesterday Context: Sudden Onset Timing: Continuous (Pain is) Current Severity: Moderate Maximum Severity: Severe Worsened by: Nothing specific Relieved by: Nothing Associated Symptoms Associated Symptoms: Dysuria, frequency Narrative Narrative: Patient is a 37-year-old woman with history of pseudotumor cerebri, renal and ureterolithiasis on the left. Patient presents with pain on the right. She locates the pain anteriorly over the right kidney. She denies flank pain. She does report nausea without vomiting diarrhea. She does endorse dysuria and frequency. She is uncertain whether she has hematuria. She denies fever or chills. Patient denies headache, visual, ocular auditory symptoms. Patient denies cardiac respiratory symptoms. Patient denies history of trauma. Patient denies skin lesions Prior similar symptoms: Yes Recent Illness/Hospitalization: Yes PFSH PFSH Medical History Bruising Cardiology follow-up encounter Easy bruising Generalized anxiety disorder Heartburn History of echocardiogram History of IBS Kidney stones Left ureteral calculus Major depressive disorder, recurrent severe without psychotic features Migraines Non-smoker Ovarian cyst PTSD (post-traumatic stress disorder) Shortness of breath on exertion Home Medications acetazolamide 500 mg capsule,extended release 500 mg PO BID PSEUDOTUMOR 06/23/21 [History Last Taken Unknown] [id number] 1 mg tablet 1 tab PO DAILY 08/18/22 [History Last Taken Unknown] cephalexin 500 mg capsule 500 mg PO Q12 post-operative 3 days #6 CAPSULES 08/24/22 [Rx Last Taken Unknown] ondansetron HCl 8 mg tablet 8 mg PO Q8H PRN PRN Nausea 7 days #20 TABLETS 08/24/22 [Rx Last Taken Unknown] oxycodone-acetaminophen 5 mg-325 mg tablet (Percocet) 1 tab PO Q8H PRN pain 3 days #14 tabs 08/24/22 [Rx Last Taken Unknown] ciprofloxacin HCl 500 mg tablet 500 mg PO BID #14 TABLETS 11/30/22 [Rx Last Taken Unknown] Allergy/AdvReac Type Severity Reaction Status Date / Time adhesive tape AdvReac Other Verified 08/24/22 11:02 Surgical History History of section History of cholecystectomy History of umbilical hernia repair History of urethral stent Hx of cystoscopy Hx of dilation and curettage Hx of tympanostomy tubes Social History (Updated 11/30/22 @ 00:[address] Mundo Do MD) household members: spouse Smoking Status: Never smoker ROS ROS ED Constitutional Constitutional ED: Reports chills; Denies fever(s), subjective, sweats or weight loss Eyes Eyes: Denies blurry vision, change in vision or diplopia ENT ENT ED: Denies ear pain, rhinorrhea or sore throat Cardiovascular Cardiovascular: Denies chest pain or palpitations Respiratory/Chest Respiratory/Chest: Denies cough, dyspnea or dyspnea on exertion Gastrointestinal Gastrointestinal: Reports abdominal pain and nausea; Denies constipation, diar alice, melena or vomiting Genitourinary Genitourinary ED: Reports dysuria, hematuria and urinary frequency Musculoskeletal Musculoskeletal: Denies arthralgias, back pain, myalgias or neck pain Integumentary Denies abscess or Abrasions Neurologic Neurologic: Denies headache(s), paresthesias or weakness Psychiatric Psychiatric: Reports depression; Denies anxiety Hematologic/Lymphatic Hematologic/Lymphatic: Reports systems reviewed and no addt'l complaints, except as documented EXAM Physical Exam Const Vital Signs: 11/29/22 22:06 11/30/22 00:06 Temperature 97.6 F L Temperature Source Temporal Pulse Rate 90 71 Respiratory Rate 16 16 Blood Pressure 171/109 H 155/77 H Blood Pressure Mean 129 103 Pulse Ox 99 97 Oxygen Delivery Method Room Air Room Air Positive well nourished, well developed and obese Constitutional Narrative: Patient is holding her right side. She appears uncomfortable. Movement does exacerbate her pain. General Appearance ED: well developed and pallor; Negative for cyanotic or diaphoretic Nutritional Appearance: obese HEENT Reports moist mucous membranes HEENT Narrative: Head is atraumatic normocephalic. Ears normal. Nares patent. Posterior pharynx unremarkable. Eyes PERRL and EOMs intact bilaterally General Eye ED: Negative for pale conjunctiva or scleral icterus Neck no lymphadenopathy, supple and no JVD Chest Wall inspection of chest normal and palpation of chest normal Resp normal respiratory effort and clear to auscultation bilaterally Cardio regular rate, regular rhythm, S1 normal heart sound, S2 normal heart sound and no murmurs GI normal to inspection, nondistended, normoactive bowel sounds, non-distended and no masses; Negative for non-tender or hepatosplenomegaly Palpation: tender RUQ; Negative for guarding, splenomegaly, mass or rebound te nderness present Back/Spine no CVA tenderness Thoracic Spine / Upper Back: Negative for thoracic spinal tenderness Lumbar Spine / Lower Back: Negative for lumbar spinal tenderness Extremity normal to inspection General Extremety ED: Negative for edema or tenderness General Extremity: Negative for edema Neuro No oriented x3, No CN's II-XII intact bilaterally and No no sensory deficits noted Sensorium / Orientation: alert Psych mental status grossly normal Skin no rashes or lesions noted, no wounds and skin turgor normal General Skin Exam: elasticity normal and pallor; Negative for jaundice MDM MDM MDM Narrative Medical decision making narrative: Differential diagnosis includes renal calculi with infection, obstructing renal calculi versus pyelonephritis versus complex urinary tract infection. Prior records reviewed. Patient's stone was noted to be on the left side and not right. This would rule out renal/ureterolithiasis. Therefore we will treat for infection. History & Record Review Discussion w/independent historian: Patient Additional record(s) reviewed:: Prior inpatient record and Prior outpatient record (Patient had recent procedure by Dr. Ren for obstructing left ureteral stone.) Lab Data Attestation: I reviewed the patient's lab results. Lab results narrative: White count is slight elevated with no shift. Basic metabolic panel is unremarkable. Is negative. Urine reveals bacteria. Since patient is symptomat ic culture was sent. She received a dose of Rocephin in the emergency department. We will treat with ciprofloxacin since she has pain over her right kidney and may represent a subclinical pyelonephritis. Labs: Laboratory Results - last 24 hr 11/29/22 11/29/22 11/29/22 23:06 23:06 23:06 WBC 11.9 H RBC 4.80 Hgb 13.0 Hct 38.8 MCV 80.8 L MCH 27.1 MCHC 33.5 RDW Std Deviation 38.8 RDW Coeff of Theresa 13.5 Plt Count 309 MPV 9.6 Immature Gran % (Auto) 0.600 Neut % (Auto) 61.2 Lymph % (Auto) 29.0 [place] % (Auto) 7.3 Eos % (Auto) 1.5 Baso % (Auto) 0.4 Absolute Neuts (auto) 7.3 Absolute Lymphs (auto) 3.44 Nucleated RBC % 0 Sodium 143 Potassium 3.9 Chloride 114 H Carbon Dioxide 23.0 Anion Gap 6 BUN 19 H Creatinine 0.91 Estim Creat Clear Calc 80.78 Est GFR (MDRD) Af Amer 90 Est GFR (MDRD) Non-Af 75 BUN/Creatinine Ratio 20.8 H Glucose 114 H Calcium 8.8 Serum , Qual NEGATIVE Urine Color Urine Clarity Urine pH Ur Specific [place] Urine Protein Urine Glucose (UA) Urine Ketones Urine Occult Blood Urine Nitrite Urine Bilirubin Urine Urobilinogen Ur Leukocyte Esterase Urine RBC Urine WBC Ur Squamous Epith Cells Urine Bacteria Urine Mucus 11/29/22 23:22 WBC RBC Hgb Hct MCV MCH MCHC RDW Std Deviation RDW Coeff of Theresa Plt Count MPV Immature Gran % (Auto) Neut % (Auto) Lymph % (Auto) [place] % (Auto) Eos % (Auto) Baso % (Auto) Absolute Neuts (auto) Absolute Lymphs (auto) Nucleated RBC % Sodium Potassium Chloride Carbon Dioxide Anion Gap BUN Creatinine Estim Creat Clear Calc Est GFR (MDRD) Af Amer Est GFR (MDRD) Non-Af BUN/Creatinine Ratio Glucose Calcium Serum , Qual Urine Color Yellow Urine Clarity Clear Urine pH 6.0 Ur Specific [place] 1.015 Urine Protein 15 H Urine Glucose (UA) Normal Urine Ketones Negative Urine Occult Blood Negative Urine Nitrite Negative Urine Bilirubin Negative Urine Urobilinogen Normal Ur Leukocyte Esterase Negative Urine RBC 0 SEEN Urine WBC 0-5 SEEN Ur Squamous Epith Cells 0-5 SEEN Urine Bacteria 2+ Urine Mucus 0 SEEN Discharge Plan Triage Chief Complaint: Flank Pain ED Provider: Mundo Do Dx/Rx/DC Orders Clinical Impression: Pyelonephritis of right kidney Instructions: ED Pyelonephritis, Female (Adult) Prescriptions: New ciprofloxacin HCl [ciprofloxacin HCl] 500 mg tablet 500 mg PO BID Qty: 14 0RF No Action acetazolamide 500 mg capsule, extended release 500 mg PO BID [id number] 1 mg Tablet 1 tab PO DAILY ondansetron HCl [ondansetron HCl] 8 mg tablet 8 mg PO Q8H PRN PRN (Reason: Nausea) 7 Days Qty: 20 0RF oxycodone-acetaminophen [Percocet] 5-325 mg tablet 1 tab PO Q8H PRN (Reason: pain) 3 Days Qty: 14 0RF cephalexin [cephalexin] 500 mg capsule 500 mg PO Q12 3 Days Qty: 6 0RF Primary Care Provider: Care Physician,No Primary Referrals: Leticia Ren MD [Med Staff - Active Staff] - 3-5 Days Care Physician,No Primary [Primary Care Provider] - Disposition Disposition: Home, Self Care
[2022-11-30] MEDS: Ceftriaxone 1 GM/50 ML BAG IV (00:59)
[2022-11-30 01:36] VITALS: PULSE 74; RESP 16; O2SAT 99
== END 2022-11-30 01:37 | disposition home or self-care (01) ==
PROVIDERS: Emergency Provider Emergency Medicine; Visit Provider Emergency Medicine
DX: N12 Tubulo-interstitial nephritis, not specified as acute or chronic (principal); R30.0 Dysuria; R31.9 Hematuria, unspecified; R35.0 Frequency of micturition; E66.9 Obesity, unspecified
CPT/HCPCS: 80048; 81001; 84703; 85025; 87086; 96361; 96365; 96375; 99282; J7030; A4216; J2405

== ENCOUNTER 2022-12-13 15:30 | Emergency (ER) | payer MEDICAID, SELFPAY ==
[2022-12-13 15:31] VITALS: BP 137/105; PULSE 62; RESP 16; TEMP 37.3; O2SAT 93; BMI 37.7
--- NOTE | 2022-12-13 15:59 | EX.ED.DYSGE1 ---
HPI History of Present Illness Chief Complaint: Dizziness Informant: patient Onset/Context/Timing Onset: Today Context: Gradual Onset Timing: Intermittent Quality: Aching Location: Back Worsened by: Nothing Relieved by: Nothing Narrative Narrative: Patient presents with near syncopal episode that occurred today. Patient went to urgent care for a fever. Patient states she feels aching all over. Patient states that she had a near syncopal episode while she was at the urgent care. Patient states it became worse when she tried to stand. Patient did not lose consciousness. Patient admits to a fever of 101.4 at home. Patient also admits to some shortness of breath and cough. Patient midst to some nausea and vomiting. Patient admits to urinary frequency. [facility] Medical History Bruising Cardiology follow-up encounter Easy bruising Generalized anxiety disorder Heartburn History of echocardiogram History of IBS Kidney stones Left ureteral calculus Major depressive disorder, recurrent severe without psychotic features Migraines Non-smoker Ovarian cyst PTSD (post-traumatic stress disorder) Shortness of breath on exertion Home Medications acetazolamide 500 mg capsule,extended release 500 mg PO BID PSEUDOTUMOR 06/23/21 [History Last Taken Unknown] [id number] 1 mg tablet 1 tab PO DAILY 08/18/22 [History Last Taken Unknown] cephalexin 500 mg capsule 500 mg PO Q12 post-operative 3 days #6 CAPSULES 08/24/22 [Rx Last Taken Unknown] ondansetron HCl 8 mg tablet 8 mg PO Q8H PRN PRN Nausea 7 days #20 TABLETS 08/24/22 [Rx Last Taken Unknown] oxycodone-acetaminophen 5 mg-325 mg tablet (Percocet) 1 tab PO Q8H PRN pain 3 days #14 tabs 08/24/22 [Rx Last Taken Unknown] ciprofloxacin HCl 500 mg tablet 500 mg PO BID #14 TABLETS 11/30/22 [Rx Last Taken Unknown] Allergy/AdvReac Type Severity Reaction Status Date / Time adhesive tape AdvReac Other Verified 12/13/22 15:35 Surgical History History of section History of cholecystectomy History of umbilical hernia repair History of urethral stent Hx of cystoscopy Hx of dilation and curettage Hx of tympanostomy tubes Social History household members: spouse Smoking Status: Never smoker ROS ROS ED Constitutional Constitutional ED: Reports chills and fever(s) Eyes Eyes: Denies blurry vision or change in vision ENT ENT ED: Reports sore throat; Denies rhinorrhea Cardiovascular Cardiovascular: Reports chest pain; Denies palpitations Respiratory/Chest Respiratory/Chest: Reports cough and dyspnea Gastrointestinal Gastrointestinal: Reports nausea and vomiting Genitourinary Genitourinary ED: Reports urinary frequency; Denies dysuria or hematuria Musculoskeletal Musculoskeletal: Reports back pain and myalgias; Denies neck pain Integumentary Denies abscess or rash Neurologic Neurologic: Reports headache(s); Denies weakness Allergic/Immunologic Allergic/Immunologic ED: Denies mouth swelling or urticaria EXAM Physical Exam Const Vital Signs: 12/13/22 15:31 12/13/22 16:25 12/13/22 17:30 Temperature 99.1 F Temperature Source Oral Pulse Rate 62 Pulse Rate [Lying] Pulse Rate [Sitting (for 1 minute prior to obtaining)] Pulse Rate [Standing (for 1 minute prior to obtaining)] Respiratory Rate 16 18 Respiratory Effort Normal Non-Labored Respiratory Pattern Normal Blood Pressure 137/105 H 133/94 H Blood Pressure [Lying] Blood Pressure [Sitting (for 1 minute prior to obtaining)] Blood Pressure [Standing (for 1 minute prior to obtaining)] Blood Pressure Mean 115 107 Blood Pressure Mean [Lying] Blood Pressure Mean [Sitting (for 1 minute prior to obtaining)] Blood Pressure Mean [Standing (for 1 minute prior to obtaining)] Pulse Ox 93 Oxygen Delivery Method Room Air 12/13/22 20:04 12/13/22 19:00 Temperature Temperature Source Pulse Rate Pulse Rate [Lying] 104 H Pulse Rate [Sitting (for 1 minute prior to obtaining)] 118 H Pulse Rate [Standing (for 1 minute prior to obtaining)] 120 H Respiratory Rate Respiratory Effort Respiratory Pattern Blood Pressure 141/100 H Blood Pressure [Lying] 156/99 H Blood Pressure [Sitting (for 1 minute prior to obtaining)] 144/103 H Blood Pressure [Standing (for 1 minute prior to obtaining)] 141/100 H Blood Pressure Mean 113 Blood Pressure Mean [Lying] 118 Blood Pressure Mean [Sitting (for 1 minute prior to obtaining)] 116 Blood Pressure Mean [Standing (for 1 minute prior to obtaining)] 113 Pulse Ox Oxygen Delivery Method Positive well nourished, well developed and obese General Appearance ED: well developed and NAD Nutritional Appearance: obese HEENT Reports moist mucous membranes Neck supple and no JVD Resp normal respiratory effort and clear to auscultation bilaterally Cardio regular rate, regular rhythm and no murmurs GI normal to inspection, nondistended, normoactive bowel sounds and non-tender Palpation: soft Extremity normal to inspection General Extremety ED: Negative for edema or tenderness General Extremity: Negative for edema Neuro oriented x3, CN's II-XII intact bilaterally and no sensory deficits noted Sensorium / Orientation: alert Motor Exam: strength 5/5 throughout Psych mental status grossly normal Skin no rashes or lesions noted MDM MDM MDM Narrative Medical decision making narrative: Differential diagnosis includes dehydration, electrolyte abnormality, cardiac dysrhythmia, cardiac ischemia, pneumonia, COVID-19 infection, influenza infection, gastroenteritis, and urinary tract infection. EKG will be obtained to assess for cardiac ischemia and cardiac dysrhythmia. Chest x-ray will be obtained to assess for pneumonia. CBC will be obtained to assess for leukocytosis and anemia. Basic metabolic profile will be obtained to assess for electrolyte abnormality and renal function. Urinalysis will be obtained to assess for urinary tract infection. Orthostatic vital signs will be obtained to assess for hydration status. COVID-19 rapid antigen will be obtained to assess for COVID infection. Influenza A and influenza B antigens will be obtained to assess for influenza infection. Lab Data Attestation: I reviewed the patient's lab results. Lab results narrative: CBC was reviewed. There is a mild leukocytosis of 17.8. The remainder was within normal limits. Basic metabolic profile was reviewed. Creatinine was slightly elevated at 1.11. CO2 was slightly low at 16. The remainder was within normal limits. High-sensitivity troponin was normal at 5. Urinalysis was reviewed. There is no evidence of urinary tract infection or hematuria. Because of the leukocytosis and low CO2, low serum lactate was ordered to assess for sepsis. This was reviewed and was normal at 0.9. COVID-19 rapid antigen was reviewed and was negative. Influenza A and influenza B rapid antigens were reviewed and were negative. Labs: Laboratory Results - last 24 hr 12/13/22 12/13/22 12/13/22 16:24 16:24 17:05 WBC 17.8 H RBC 5.16 Hgb 13.8 Hct 42.5 MCV 82.4 MCH 26.7 L MCHC 32.5 RDW Std Deviation 40.8 RDW Coeff of Theresa 13.6 Plt Count 298 MPV 9.4 Immature Gran % (Auto) 0.400 Neut % (Auto) 84.2 H Lymph % (Auto) 7.9 L [place] % (Auto) 6.6 Eos % (Auto) 0.5 Baso % (Auto) 0.4 Absolute Neuts (auto) 15.0 H Absolute Lymphs (auto) 1.41 Nucleated RBC % 0 Sodium 135 L Potassium 3.7 Chloride 111 H Carbon Dioxide 16.0 L Anion Gap 8 BUN 15 Creatinine 1.11 H Estim Creat Clear Calc 66.22 Est GFR (MDRD) Af Amer 72 Est GFR (MDRD) Non-Af 59 L BUN/Creatinine Ratio 13.5 Glucose 98 Lactic Acid Calcium 8.5 Troponin I High Sens 5 Urine Color Yellow Urine Clarity Clear Urine pH 8.0 Ur Specific [place] 1.010 Urine Protein Negative Urine Glucose (UA) Normal Urine Ketones Negative Urine Occult Blood Negative Urine Nitrite Negative Urine Bilirubin Negative Urine Urobilinogen Normal Ur Leukocyte Esterase Negative Urine RBC 0 SEEN Urine WBC 0 SEEN Ur Squamous Epith Cells 0 SEEN Urine Bacteria 0 SEEN Urine Mucus 0 SEEN 12/13/22 17:45 WBC RBC Hgb Hct MCV MCH MCHC RDW Std Deviation RDW Coeff of Theresa Plt Count MPV Immature Gran % (Auto) Neut % (Auto) Lymph % (Auto) [place] % (Auto) Eos % (Auto) Baso % (Auto) Absolute Neuts (auto) Absolute Lymphs (auto) Nucleated RBC % Sodium Potassium Chloride Carbon Dioxide Anion Gap BUN Creatinine Estim Creat Clear Calc Est GFR (MDRD) Af Amer Est GFR (MDRD) Non-Af BUN/Creatinine Ratio Glucose Lactic Acid 0.9 Calcium Troponin I High Sens Urine Color Urine Clarity Urine pH Ur Specific [place] Urine Protein Urine Glucose (UA) Urine Ketones Urine Occult Blood Urine Nitrite Urine Bilirubin Urine Urobilinogen Ur Leukocyte Esterase Urine RBC Urine WBC Ur Squamous Epith Cells Urine Bacteria Urine Mucus Radiography Chest X-Ray - ED: 2 View, Read by ED Physician, Read by Radiologist and No Acute Disease Diagnostic Testing: Clinical Impression(s) from Imaging Studies Chest X-Ray 12/13/22 16:30 IMPRESSION: No evidence of acute cardiopulmonary process. Electronically Signed: Chong Stroud DO at 17:11 EDT , PA and lateral chest x-ray was obtained. There are 2 views. On my independent interpretation, lung carson are clear. There is normal cardiac silhouette. Bony thorax is normal. There is no acute process noted. Radiologist also interpreted the x-ray and agrees. EKG Initial EKG: Attestation: I personally reviewed and interpreted this EKG as follows: Interpretation: No Acute Injury Pattern and Sinus Tachycardia (101) Comments: EKG was obtained. On my independent interpretation, it showed a sinus tachycardia with a rate of 101. FL interval, QRS interval, and QTc intervals were all normal. [place] was normal. There are no acute ST or T wave changes. Prior EKG tracings: available for review Prior: Unchanged (11/04/2021) Treatment and Re-Evaluation :: Orthostatic vital signs were reviewed and were negative. Patient was able to ambulate here in the emergency department. Patient is feeling better on reevaluation. Patient was advised of her findings. Patient was instructed to follow-up with her primary care physician in 5 to 7 days. Patient understood and was agreeable with the plan. All questions were answered. Discharge Plan Triage Chief Complaint: Dizziness ED Provider: Pranav Biggs Dx/Rx/DC Orders Clinical Impression: Near syncope, Elevated blood pressure reading Instructions: ED Near-Fainting, Uncertain Cause Prescriptions: No Action acetazolamide 500 mg capsule, extended release 500 mg PO BID [id number] 1 mg Tablet 1 tab PO DAILY ondansetron HCl [ondansetron HCl] 8 mg tablet 8 mg PO Q8H PRN PRN (Reason: Nausea) 7 Days Qty: 20 0RF oxycodone-acetaminophen [Percocet] 5-325 mg tablet 1 tab PO Q8H PRN (Reason: pain) 3 Days Qty: 14 0RF cephalexin [cephalexin] 500 mg capsule 500 mg PO Q12 3 Days Qty: 6 0RF ciprofloxacin HCl [ciprofloxacin HCl] 500 mg tablet 500 mg PO BID Qty: 14 0RF Primary Care Provider: Care Physician,No Primary Referrals: Care Physician,No Primary [Primary Care Provider] - 5-7 Days Disposition Disposition: Home, Self Care Discharge Date/Time: 12/13/22 20:27
[2022-12-13] MEDS: 0.9% Normal Saline 1,000 ML 1000 ML IV (16:28)
--- NOTE | 2022-12-13 16:30 | RAD_ITS ---
STUDY: X-RAY CHEST REASON FOR EXAM: Female, 37 years old. Cough TECHNIQUE: PA and lateral views of the chest. COMPARISON: 06/23/2021 FINDINGS: The lungs are clear and expanded. There is no demonstrated pleural abnormality. Normal size heart. Normal mediastinum and [place]. Normal visualized pulmonary arteries. Normal visualized aortic arch and descending thoracic aorta. Normal visualized thoracic spine. Normal visualized ribs, clavicles, and shoulders. There is no demonstrated abnormality of the visualized soft tissue structures of the upper abdomen. RAD/Chest PA and Lateral IMPRESSION: No evidence of acute cardiopulmonary process. Electronically Signed: Chong Stroud DO at 17:11 EDT ,
[2022-12-13 16:32] LABS: Absolute Lymphocyte Count 1.41 X10^3/uL (0.83-4.51); Basophil# 0.07 X10^3/uL; Basophil% 0.4 % (0-1); Eosinophil# 0.09 X10^3/uL; Eosinophils% 0.5 % (0-5); Hematocrit 42.5 % (37-47); Hemoglobin 13.8 g/dL (12.0-15.0); Lymphocyte # 1.41 X10^3/ul (0.83-4.51); Lymphocyte % 7.9 % (19-41); Mean Corp Hgb Conc 32.5 g/dL (32-36); Mean Corpuscular Hgb 26.7 pg (27.0-32.0); Mean Corpuscular Volume 82.4 fL (81-99); Mean Platelet Vol. 9.4 fl (6.2-12.0); Monocyte# 1.17 X10^3/uL; Monocyte% 6.6 % (0-10); NRBC Flagged by Analyzer 0 % (0-5); Neutrophil # 15.01 X10^3/uL (2.7-7.7); Neutrophil % 84.2 % (47-70); Platelet Count 298 K/mm3 (150-450); RBC Distribution Width CV 13.6 % (11.6-14.6); RBC Distribution Width SD 40.8 fl (35.1-43.9); Red Blood Count 5.16 M/mm3 (4.2-5.4); White Blood Count 17.8 K/mm3 (4.4-11.0)
--- NOTE | 2022-12-13 16:45 | CM.ED ---
Social Work Note Referral Source: case find Referral Reason: no PCP SW met with patient and introduced herself and role as [facility] Airport Engineer. Patient was seated on hospital bed and agreeable to speak with SW. SW inquired about patient's insurance and current PCP. Patient verified insurance and reports no current PCP. SW provided patient with a list of local PCPs in network with patient's insurance and accepting new patients. Patient was receptive towards list and explained she typically goes to Urgent care as needed. SW encouraged patient to get established with a PCP so they can assist with patient's care as urgent care and ED provide limited medical support. No other needs voiced. SW remains available if needs arise. Alysia Salmon [employer]IV[employer] ENG[employer]ERING PROJECT DES[employer]ER, [place]
[2022-12-13 16:50] LABS: Anion Gap 8 (5-15); BUN 15 mg/dL (7-18); BUN/Creat Ratio 13.5 RATIO (10-20); Calcium,Total 8.5 mg/dL (8.5-10.1); Chloride 111 mmol/L (98-107); Creatinine, Serum 1.11 mg/dL (0.55-1.02); EST Glomerular Filtration Rate 59 mL/min (>60); Est Glom Filt Rate - Afr Amer 72 mL/min (>60); Estimated Creatinine Clearance 66.22 ml/min; Glucose 98 mg/dL (74-106); Potassium 3.7 mmol/L (3.5-5.1); Sodium Level 135 mmol/L (136-145); Troponin-I HS 5 pg/mL (3.0-54.0)
[2022-12-13 17:15] LABS: Bacteria 0 SEEN /hpf (None Seen); Mucous, Urine 0 SEEN /hpf (<or=2+); Red Blood Cells-Urine 0 SEEN /hpf (0-5); Squamous Epithelial Cells - UA 0 SEEN /hpf (5-10); White Blood Cells 0 SEEN /hpf (0-5)
[2022-12-13 17:19] LABS: Color, Urine Yellow (Yellow); Glucose, Dipstick Normal (Normal); Ketone-Dipstick Negative (Negative); Leukocyte Esterase-Dipstick Negative /ul (Negative); Nitrite-Dipstick Negative (Negative); Occult Blood-Urine Negative /ul (Negative); Protein-Dipstick Negative (Negative); Urine Bilirubin Dipstick Negative (Negative); Urine Clarity Clear (Clear); Urine Urobilinogen Normal (Normal)
[2022-12-13 17:30] VITALS: BP 133/94; RESP 18
[2022-12-13 18:37] LABS: Lactic Acid 0.9 mmol/L (0.4-1.9)
[2022-12-13 19:00] VITALS: BP 141/100
[2022-12-13 20:04] VITALS: BP 141/100; BP 144/103; BP 156/99; PULSE 104; PULSE 118; PULSE 120
== END 2022-12-13 20:27 | disposition home or self-care (01) ==
PROVIDERS: Emergency Provider Emergency Medicine; Visit Provider Emergency Medicine
DX: R55 Syncope and collapse (principal); R42 Dizziness and giddiness; R06.02 Shortness of breath; R03.0 Elevated blood-pressure reading, without diagnosis of hypertension; R11.2 Nausea with vomiting, unspecified; R35.0 Frequency of micturition; R07.9 Chest pain, unspecified; R51.9 Headache, unspecified; E66.9 Obesity, unspecified; Z20.822 Contact with and (suspected) exposure to COVID-19
CPT/HCPCS: 71046; 80048; 81001; 83605; 84484; 85025; 87428; 93005; 96360; 96361; 99285; J7030; A4216

== ENCOUNTER 2023-03-05 14:36 | Emergency (ER) | payer MEDICAID, SELFPAY ==
[2023-03-05 14:37] VITALS: BP 162/114; PULSE 81; RESP 18; TEMP 36; O2SAT 98; BMI 37.5
--- NOTE | 2023-03-05 14:52 | VDLE_ITS ---
Reason For Study: Left leg swelling Procedure LEFT This is a venous duplex using B-mode, color GSV is normal. flow and spectral Doppler. CFV is compressible, spontaneous, phasic, Exam performed portable in ED. competent, and demonstrates normal A preliminary report was called and/or faxed augmentation. to Dr. Tate. FV is compressible, spontaneous, phasic, competent and demonstrates normal augmentation. POP V is compressible, spontaneous, phasic, competent and demonstrates normal augmentation. T/P Trunk is compressible. PTV is compressible. LT PerV is compressible. VL/Venous Duplex US, Unilateral Interpretation Summary There is no evidence of left lower extremity deep vein thrombosis. Left great s aphenous vein appears patent and compressible segmentally. Ordering Physician: Arsalan Tate Performed By: Denisha Chanel RVT
--- NOTE | 2023-03-05 14:53 | CT_ITS ---
STUDY: CT ABDOMEN AND PELVIS WITH CONTRAST REASON FOR EXAM: Female, 37 years old. Left lower quadrant pain. History of ectopic February 12, 2023. RADIATION DOSAGE (If Supplied By Facility): CTDIvol = ( 14.52 ) mGy, DLP = ( 1200.58 ) mGycm TECHNIQUE: IV 100mL Isovue-300 was administered. Transaxial images were obtained from the dome of the diaphragm to the symphysis pubis. Multiplanar coronal and sagittal images were reformatted. Individualized Dose Optimization Techniques Were Used For This CT. COMPARISON: July 18, 2022. FINDINGS: The visualized lung bases are unremarkable. The visualized portions of the heart are within normal limits. Normal liver. There are surgical clips in the gallbladder fossa consistent with a prior cholecystectomy. Normal spleen. Normal pancreas. Normal bilateral adrenal glands. Normal visualized stomach. Normal small intestine. Normal colon. The appendix is visualized and appears normal. Normal abdominal aorta. Normal IVC. No retroperitoneal adenopathy. Normal right kidney. Normal left kidney. Normal ureters. Normal urinary bladder. Normal uterus and left ovary. There appears to be a collapsing cyst in the right ovary. No pelvic mass or lymphadenopathy. No free air or free fluid is seen within the peritoneal cavity. Normal abdominal wall. Normal osseous structures. CT/Abdomen/Pelvis W IV Cont ONLY IMPRESSION: 1. Collapsing cyst in the right ovary. The study is otherwise unremarkable. Electronically Signed: Jax Contreras DO at 16:11 EDT ,
--- NOTE | 2023-03-05 14:58 | EX.ED.DYSGE1 ---
HPI History of Present Illness Chief Complaint: Lower Extremity Injury Narrative Narrative: This is a 37-year-old female presenting with concern for DVT in the left lower extremity. She has pain circumferentially in the left thigh and lower leg which has been present for about 3 days. She states it feels like a pressure. She states that she had a ruptured ectopic on the fifth of this month which had previously been followed by gynecology Dr. Urrutia. Apparently she did have methotrexate approximately 10 days before that. hCG has not been going down reportedly and she had increased pain and ultrasound that [facility] that showed a ruptured ectopic . She was taken to the OR. She reports that there was some kind of cyst on the left ovary which had been there for a while. The surgeon decided to biopsy this and she is told it is cancerous and she is going to be sent to a specialist in [place] to have a hysterectomy. This is a papillary serous borderline tumor. She does not know the name of the doctor she is going to see. She reports that she has left flank pain that is burning in nature. This is new over the last 3 days as well. She has not had any fevers. She states she received the biopsy result [facility] Medical History Bruising Cardiology follow-up encounter Easy bruising Generalized anxiety disorder Heartburn History of echocardiogram History of IBS Kidney stones Left ureteral calculus Major depressive disorder, recurrent severe without psychotic features Migraines Non-smoker Ovarian cyst PTSD (post-traumatic stress disorder) Shortness of breath on exertion Home Medications acetazolamide 500 mg capsule,extended release 500 mg PO BID PSEUDOTUMOR 06/23/21 [History Last Taken Unknown] [id number]-FA 1 mg tablet 1 tab PO DAILY 08/18/22 [History Last Taken Unknown] cephalexin 500 mg capsule 500 mg PO Q12 post-operative 3 days #6 CAPSULES 08/24/22 [Rx Last Taken Unknown] ondansetron HCl 8 mg tablet 8 mg PO Q8H PRN PRN Nausea 7 days #20 TABLETS 08/24/22 [Rx Last Taken Unknown] oxycodone-acetaminophen 5 mg-325 mg tablet (Percocet) 1 tab PO Q8H PRN pain 3 days #14 tabs 08/24/22 [Rx Last Taken Unknown] ciprofloxacin HCl 500 mg tablet 500 mg PO BID #14 TABLETS 11/30/22 [Rx Last Taken Unknown] Allergy/AdvReac Type Severity Reaction Status Date / Time adhesive tape AdvReac Other Verified 03/05/23 14:39 Surgical History History of section History of cholecystectomy History of umbilical hernia repair History of urethral stent Hx of cystoscopy Hx of dilation and curettage Hx of tympanostomy tubes Social History household members: spouse Smoking Status: Never smoker EXAM Physical Exam Const Vital Signs: 03/05/23 14:37 Temperature 96.8 F L Temperature Source Temporal Pulse Rate 81 Respiratory Rate 18 Blood Pressure 162/114 H Blood Pressure Mean 130 Pulse Ox 98 Oxygen Delivery Method Room Air MDM MDM MDM Narrative Medical decision making narrative: Patient presenting with left-sided abdominal pain status post ruptured ectopic in the beginning of the month and biopsy of left-sided ovarian cyst during the same procedure. She was told that this is malignant. She is referred to of specialist for follow-up. Differential includes ovarian cyst, ovarian torsion, ovarian cancer, postoperative infection, UTI, pyelonephritis, diverticulitis, colitis in regards to abdominal pain. Her leg is tender to palpation and I will order an ultrasound to rule out DVT. Patient recently with recent surgery. CBC obtained to assess white blood cell count, hemoglobin, platelets. CMP to assess liver function, renal function, electrolytes. Urinalysis to assess for UTI. Duplex of the left lower extremity is negative for DVT. CBC shows no white blood cell count elevation, hemoglobin stable at 12.7, platelets normal 339. Renal function and electrolytes within normal limits. Liver function normal. Urinalysis negative for infection. CT of the abdomen and pelvis with IV contrast is negative for anything on the left side of her abdomen there is a collapsing cyst on the right side. At this point the patient has had extensive work-up which is negative. I recommend she follow-up with her specialist as an outpatient. Impression: 1. Abdominal pain 2. Left leg pain Lab Data Attestation: I reviewed the patient's lab results. Labs: Laboratory Results - last 24 hr 03/05/23 03/05/23 03/05/23 15:03 15:03 15:57 WBC 10.3 RBC 4.80 Hgb 12.7 Hct 38.4 MCV 80.0 L MCH 26.5 L MCHC 33.1 RDW Std Deviation 36.8 RDW Coeff of Theresa 12.9 Plt Count 339 MPV 9.0 Immature Gran % (Auto) 0.200 Neut % (Auto) 57.7 Lymph % (Auto) 32.1 [place] % (Auto) 7.4 Eos % (Auto) 2.1 Baso % (Auto) 0.5 Absolute Neuts (auto) 5.9 Absolute Lymphs (auto) 3.30 Nucleated RBC % 0 Sodium 142 Potassium 3.6 Chloride 112 H Carbon Dioxide 21.0 Anion Gap 9 BUN 13 Creatinine 0.82 Estim Creat Clear Calc 89.64 Est GFR (MDRD) Af Amer 101 Est GFR (MDRD) Non-Af 84 BUN/Creatinine Ratio 15.8 Glucose 128 H Calcium 8.4 L Total Bilirubin 0.50 AST 13 L ALT 22 Alkaline Phosphatase 108 Total Protein 7.9 Albumin 3.5 Globulin 4.4 H Albumin/Globulin Ratio 0.8 L Urine Color Yellow Urine Clarity Clear Urine pH 7.0 Ur Specific [place] 1.010 Urine Protein 15 H Urine Glucose (UA) Normal Urine Ketones Negative Urine Occult Blood Negative Urine Nitrite Negative Urine Bilirubin Negative Urine Urobilinogen Normal Ur Leukocyte Esterase Negative Urine RBC 0 SEEN Urine WBC 0 SEEN Ur Squamous Epith Cells 0-5 SEEN Urine Bacteria 1+ Urine Mucus 0 SEEN Radiography Diagnostic Testing: Clinical Impression(s) from Imaging Studies Venous Doppler Study 03/05/23 14:52 Interpretation Summary There is no evidence of left lower extremity deep vein thrombosis. Left great saphenous vein appears patent and compressible segmentally. Ordering Physician: Arsalan Tate Performed By: Denisha Chanel RVT Abdomen/Pelvis CT 03/05/23 14:53 IMPRESSION: 1. Collapsing cyst in the right ovary. The study is otherwise unremarkable. Electronically Signed: Jax Contreras DO at 16:11 EDT Reading Location ID and State: [address] [place] [address] Tel [phone], Service support , Discharge Plan Triage Chief Complaint: Lower Extremity Injury ED Provider: Arsalan Tate Dx/Rx/DC Orders Instructions: Low Back Leg Pain Causes, ED Abdominal Pain Unkn Cause Fem Prescriptions: No Action acetazolamide 500 mg capsule, extended release 500 mg PO BID [id number] 1 mg Tablet 1 tab PO DAILY ondansetron HCl [ondansetron HCl] 8 mg tablet 8 mg PO Q8H PRN PRN (Reason: Nausea) 7 Days Qty: 20 0RF oxycodone-acetaminophen [Percocet] 5-325 mg tablet 1 tab PO Q8H PRN (Reason: pain) 3 Days Qty: 14 0RF cephalexin [cephalexin] 500 mg capsule 500 mg PO Q12 3 Days Qty: 6 0RF ciprofloxacin HCl [ciprofloxacin HCl] 500 mg tablet 500 mg PO BID Qty: 14 0RF Primary Care Provider: Care Physician,No Primary Referrals: Care Physician,No Primary [Primary Care Provider] - Disposition Disposition: Home, Self Care
[2023-03-05 15:19] LABS: Absolute Neutrophil Count 5.9 X10^3/uL (2.0-7.7); Basophil# 0.05 X10^3/uL; Basophil% 0.5 % (0-1); Eosinophil# 0.22 X10^3/uL; Eosinophils% 2.1 % (0-5); Hematocrit 38.4 % (37-47); Hemoglobin 12.7 g/dL (12.0-15.0); Lymphocyte % 32.1 % (19-41); Mean Corp Hgb Conc 33.1 g/dL (32-36); Mean Corpuscular Hgb 26.5 pg (27.0-32.0); Monocyte# 0.76 X10^3/uL; Monocyte% 7.4 % (0-10); NRBC Flagged by Analyzer 0 % (0-5); Neutrophil # 5.92 X10^3/uL (2.7-7.7); Neutrophil % 57.7 % (47-70); Platelet Count 339 K/mm3 (150-450); RBC Distribution Width CV 12.9 % (11.6-14.6); RBC Distribution Width SD 36.8 fl (35.1-43.9); White Blood Count 10.3 K/mm3 (4.4-11.0)
[2023-03-05 15:31] LABS: ALB/GLOB Ratio 0.8 RATIO (0.9-2.4); AST(SGOT) 13 U/L (15-37); Alanine Aminotransfer ALT/SGPT 22 U/L (13-56); Albumin, Serum 3.5 g/dL (3.2-5.0); Alkaline Phosphatase 108 U/L (45-117); Anion Gap 9 (5-15); BUN 13 mg/dL (7-18); BUN/Creat Ratio 15.8 RATIO (10-20); Calcium,Total 8.4 mg/dL (8.5-10.1); Chloride 112 mmol/L (98-107); Creatinine, Serum 0.82 mg/dL (0.55-1.02); EST Glomerular Filtration Rate 84 mL/min (>60); Est Glom Filt Rate - Afr Amer 101 mL/min (>60); Estimated Creatinine Clearance 89.64 ml/min; Globulin 4.4 g/dL (2.2-4.2); Glucose 128 mg/dL (74-106); Potassium 3.6 mmol/L (3.5-5.1); Protein, Total 7.9 g/dL (6.4-8.2); Sodium Level 142 mmol/L (136-145)
[2023-03-05 16:03] LABS: Mucous, Urine 0 SEEN /hpf (<or=2+); Red Blood Cells-Urine 0 SEEN /hpf (0-5); White Blood Cells 0 SEEN /hpf (0-5)
[2023-03-05 16:04] LABS: Color, Urine Yellow (Yellow); Glucose, Dipstick Normal (Normal); Ketone-Dipstick Negative (Negative); Leukocyte Esterase-Dipstick Negative /ul (Negative); Nitrite-Dipstick Negative (Negative); Occult Blood-Urine Negative /ul (Negative); Protein-Dipstick 15 mg/dl (Negative); Urine Bilirubin Dipstick Negative (Negative); Urine Clarity Clear (Clear); Urine Urobilinogen Normal (Normal)
[2023-03-05 16:21] LABS: Bacteria 1+ /hpf (None Seen)
[2023-03-05 16:22] LABS: Squamous Epithelial Cells - UA 0-5 SEEN /hpf (5-10)
[2023-03-05 17:08] VITALS: BP 139/86; PULSE 76; RESP 16; O2SAT 99
== END 2023-03-05 17:11 | disposition home or self-care (01) ==
PROVIDERS: Emergency Provider Student in an Organized Health Care Education/Training Program; Visit Provider Student in an Organized Health Care Education/Training Program
DX: M79.652 Pain in left thigh (principal); M79.605 Pain in left leg; R10.9 Unspecified abdominal pain; Z79.899 Other long term (current) drug therapy
CPT/HCPCS: 74177; 80053; 81001; 85025; 93971; 99283; Q9967; A4216

== ENCOUNTER 2023-04-08 17:28 | Emergency (ER) | payer MEDICAID, SELFPAY ==
[2023-04-08 17:29] VITALS: BP 165/112; PULSE 84; RESP 18; TEMP 36.4; O2SAT 99; BMI 37.5
--- NOTE | 2023-04-08 17:45 | CT_ITS ---
STUDY: CT ABDOMEN AND PELVIS WITHOUT CONTRAST REASON FOR EXAM: Female, 37 years old. Left flank pain RADIATION DOSAGE (If Supplied By Facility): CTDIvol = ( 16.67 ) mGy, DLP = ( 899.43 ) mGycm TECHNIQUE: Transaxial images were obtained from the dome of the diaphragm to the symphysis pubis without oral contrast, and without intravenous contrast. Sagittal and coronal images were reconstructed. Individualized dose optimization techniques were used for this CT. COMPARISON: 03/05/2023 FINDINGS: The visualized lung bases are unremarkable. The visualized portions of the heart are within normal limits. Normal liver. There are surgical clips in the gallbladder fossa consistent with a prior cholecystectomy. Normal spleen. Normal pancreas. Normal bilateral adrenal glands. Normal right kidney. Normal left kidney. Normal visualized stomach. Normal small intestine. Normal colon. The appendix is visualized and appears normal. Normal abdominal aorta. Normal inferior vena cava. Normal retroperitoneum. Normal urinary bladder. Normal abdominal wall. Normal osseous structures. CT/Abdomen/Pelvis without Cont IMPRESSION: Normal unenhanced CT of the abdomen and pelvis. Electronically Signed: Noel Castillo MD at 19:54 EDT ,
--- NOTE | 2023-04-08 17:49 | EX.ED.DYSGE1 ---
HPI History of Present Illness Chief Complaint: Flank Pain Informant: patient Onset/Context/Timing Onset: Today Context: Gradual Onset Timing: Intermittent Quality: Sharp Location: Left flank Worsened by: Nothing Relieved by: Pushing on the left flank Narrative Narrative: Patient presents with left flank pain that that began today. Patient states she was at work when this began. Patient states it is gradually gotten worse. Patient states it comes and goes. Patient describes her pain as sharp. Patient states it is over the left flank area. Patient states it is better with pushing on the area. Patient states nothing makes it worse. Patient admits to some dysuria but denies any hematuria. Patient admits to some nausea but denies any vomiting. Patient also admits to a rash over the left flank area. PFSH [facility] Medical History Bruising Cardiology follow-up encounter Easy bruising Generalized anxiety disorder Heartburn History of echocardiogram History of IBS Kidney stones Left ureteral calculus Major depressive disorder, recurrent severe without psychotic features Migraines Non-smoker Ovarian cyst PTSD (post-traumatic stress disorder) Shortness of breath on exertion Home Medications acetazolamide 500 mg capsule,extended release 500 mg PO BID PSEUDOTUMOR 06/23/21 [History Last Taken Unknown] [id number] 1 mg tablet 1 tab PO DAILY 08/18/22 [History Last Taken Unknown] cephalexin 500 mg capsule 500 mg PO Q12 post-operative 3 days #6 CAPSULES 08/24/22 [Rx Last Taken Unknown] ondansetron HCl 8 mg tablet 8 mg PO Q8H PRN PRN Nausea 7 days #20 TABLETS 08/24/22 [Rx Last Taken Unknown] oxycodone-acetaminophen 5 mg-325 mg tablet (Percocet) 1 tab PO Q8H PRN pain 3 days #14 tabs 08/24/22 [Rx Last Taken Unknown] ciprofloxacin HCl 500 mg tablet 500 mg PO BID #14 TABLETS 11/30/22 [Rx Last Taken Unknown] hydrocodone-acetaminophen 5-325mg 5mg-325mg 1 tab PO Q6H PRN PRN Pain 3 days #10 TABLETS 04/08/23 [Rx Last Taken Unknown] Allergy/AdvReac Type Severity Reaction Status Date / Time adhesive tape AdvReac Other Verified 04/08/23 17:29 Surgical History History of section History of cholecystectomy History of umbilical hernia repair History of urethral stent Hx of cystoscopy Hx of dilation and curettage Hx of tympanostomy tubes Social History household members: spouse Smoking Status: Never smoker ROS ROS ED Constitutional Constitutional ED: Denies chills or fever(s) Eyes Eyes: Denies blurry vision or change in vision ENT ENT ED: Denies rhinorrhea or sore throat Cardiovascular Cardiovascular: Denies chest pain or palpitations Respiratory/Chest Respiratory/Chest: Denies cough or dyspnea Gastrointestinal Gastrointestinal: Reports nausea; Denies vomiting Genitourinary Genitourinary ED: Reports dysuria; Denies hematuria Musculoskeletal Musculoskeletal: Reports back pain; Denies neck pain Integumentary Reports rash; Denies abscess Neurologic Neurologic: Denies headache(s) or weakness Allergic/Immunologic Allergic/Immunologic ED: Denies mouth swelling or urticaria EXAM Physical Exam Const Vital Signs: 04/08/23 17:29 Temperature 97.6 F L Temperature Source Temporal Pulse Rate 84 Respiratory Rate 18 Blood Pressure 165/112 H Blood Pressure Mean 129 Pulse Ox 99 Oxygen Delivery Method Room Air Positive well nourished and well developed General Appearance ED: well developed and NAD HEENT Reports moist mucous membranes Neck supple and no JVD Resp normal respiratory effort and clear to auscultation bilaterally Cardio regular rate, regular rhythm and no murmurs GI normal to inspection, nondistended, normoactive bowel sounds and non-tender Palpation: soft Back/Spine General Back: CVA tenderness left Extremity normal to inspection General Extremety ED: Negative for edema or tenderness General Extremity: Negative for edema Neuro oriented x3, CN's II-XII intact bilaterally and no sensory deficits noted Sensorium / Orientation: alert Motor Exam: strength 5/5 throughout Psych mental status grossly normal Skin Skin Narrative: There is some erythema over the left flank area. There are no vesicles or pustules noted. There is no discharge or drainage. There is no petechia noted. There is no involvement of mucous membranes. MDM MDM MDM Narrative Medical decision making narrative: Differential diagnosis includes ureteral calculus, pyelonephritis, varicella-zoster, pancreatitis, and musculoskeletal pain. Urinalysis will be obtained to assess for hematuria and urinary tract infection. CBC will be obtained to assess for leukocytosis and anemia. Comprehensive metabolic profile will be obtained to assess for electrolyte abnormality, hepatic function, and renal function. Serum hCG will be obtained to assess for . Lipase will be obtained to assess for pancreatitis. Lab Data Attestation: I reviewed the patient's lab results. Lab results narrative: CBC was reviewed and was within normal limits. Comprehensive metabolic profile was reviewed and was within normal limits. Lipase was reviewed and was within normal limits. Urinalysis was reviewed and does not show any evidence of urinary tract infection or hematuria. Serum hCG was reviewed and was negative. Labs: Laboratory Results - last 24 hr 04/08/23 04/08/23 18:08 18:20 WBC 10.0 RBC 4.81 Hgb 12.7 Hct 38.9 MCV 80.9 L MCH 26.4 L MCHC 32.6 RDW Std Deviation 38.7 RDW Coeff of [place] 13.3 Plt Count 336 MPV 9.6 Immature Gran % (Auto) 0.200 Neut % (Auto) 58.8 Lymph % (Auto) 30.9 [place] % (Auto) 7.6 Eos % (Auto) 1.9 Baso % (Auto) 0.6 Absolute Neuts (auto) 5.9 Absolute Lymphs (auto) 3.08 Nucleated RBC % 0 Sodium 141 Potassium 3.7 Chloride 111 H Carbon Dioxide 25.0 Anion Gap 5 BUN 14 Creatinine 0.88 Estim Creat Clear Calc 83.53 Est GFR (MDRD) Af Amer 93 Est GFR (MDRD) Non-Af 77 BUN/Creatinine Ratio 15.8 Glucose 96 Calcium 8.2 L Total Bilirubin 0.20 AST 15 ALT 25 Alkaline Phosphatase 106 Total Protein 7.8 Albumin 3.4 Globulin 4.4 H Albumin/Globulin Ratio 0.8 L Lipase 29 Serum , Qual NEGATIVE Urine Color Yellow Urine Clarity Clear Urine pH 6.5 Ur Specific [place] 1.020 Urine Protein 15 H Urine Glucose (UA) Normal Urine Ketones Negative Urine Occult Blood Negative Urine Nitrite Negative Urine Bilirubin Negative Urine Urobilinogen Normal Ur Leukocyte Esterase 25 H Urine RBC 0 SEEN Urine WBC 0-5 SEEN Ur Squamous Epith Cells 0-5 SEEN Urine Bacteria 2+ Urine Mucus 0 SEEN Radiography Diagnostic Testing: Clinical Impression(s) from Imaging Studies Abdomen/Pelvis CT 04/08/23 17:45 IMPRESSION: Normal unenhanced CT of the abdomen and pelvis. Electronically Signed: Noel Castillo MD at 19:54 EDT , CT scan of the abdomen pelvis was obtained. There is no evidence of ureteral calculus. There is no hydronephrosis. There is no free air or free fluid. There is no acute abnormality noted. This was interpreted by the radiologist and was also independently reviewed by myself. Treatment and Re-Evaluation :: Patient was given morphine and Zofran initially. Patient was given IV fluids initially. On reevaluation, the patient's erythema over the left flank appeared to be improved. Patient was advised that this could be from just her rubbing the area. It does not appear to be varicella zoster at this time. Patient was given a prescription for a short course of Mcg[place]. Patient was instructed to drink plenty of fluids. Patient was instructed to follow-up with her primary care physician in 5 to 7 days. Patient understood and was agreeable with plan. All questions were answered. Discharge Plan Triage Chief Complaint: Flank Pain ED Provider: Pranav Biggs Dx/Rx/DC Orders Clinical Impression: Left flank pain Instructions: ED Flank Pain, Uncertain Cause Prescriptions: New hydrocodone-acetaminophen [hydrocodone-acetaminophen] 5-325 mg tablet 1 tab PO Q6H PRN PRN (Reason: Pain) 3 Days Qty: 10 0RF No Action acetazolamide 500 mg capsule, extended release 500 mg PO BID [id number] 1 mg Tablet 1 tab PO DAILY ondansetron HCl [ondansetron HCl] 8 mg tablet 8 mg PO Q8H PRN PRN (Reason: Nausea) 7 Days Qty: 20 0RF oxycodone-acetaminophen [Percocet] 5-325 mg tablet 1 tab PO Q8H PRN (Reason: pain) 3 Days Qty: 14 0RF cephalexin [cephalexin] 500 mg capsule 500 mg PO Q12 3 Days Qty: 6 0RF ciprofloxacin HCl [ciprofloxacin HCl] 500 mg tablet 500 mg PO BID Qty: 14 0RF Primary Care Provider: Care Physician,No Primary Referrals: Veronique Shea MD [Med Staff - [employer]] - 5-7 Days Care Physician,No Primary [Primary Care Provider] - Disposition Disposition: Home, Self Care
[2023-04-08 18:14] LABS: Absolute Lymphocyte Count 3.08 X10^3/uL (0.83-4.51); Absolute Neutrophil Count 5.9 X10^3/uL (2.0-7.7); Basophil# 0.06 X10^3/uL; Basophil% 0.6 % (0-1); Eosinophil# 0.19 X10^3/uL; Eosinophils% 1.9 % (0-5); Hematocrit 38.9 % (37-47); Hemoglobin 12.7 g/dL (12.0-15.0); Lymphocyte # 3.08 X10^3/ul (0.83-4.51); Lymphocyte % 30.9 % (19-41); Mean Corp Hgb Conc 32.6 g/dL (32-36); Mean Corpuscular Hgb 26.4 pg (27.0-32.0); Mean Corpuscular Volume 80.9 fL (81-99); Mean Platelet Vol. 9.6 fl (6.2-12.0); Monocyte# 0.76 X10^3/uL; Monocyte% 7.6 % (0-10); NRBC Flagged by Analyzer 0 % (0-5); Neutrophil # 5.87 X10^3/uL (2.7-7.7); Neutrophil % 58.8 % (47-70); Platelet Count 336 K/mm3 (150-450); RBC Distribution Width CV 13.3 % (11.6-14.6); RBC Distribution Width SD 38.7 fl (35.1-43.9); Red Blood Count 4.81 M/mm3 (4.2-5.4)
[2023-04-08 18:24] LABS: Mucous, Urine 0 SEEN /hpf (<or=2+); Red Blood Cells-Urine 0 SEEN /hpf (0-5)
[2023-04-08 18:33] LABS: ALB/GLOB Ratio 0.8 RATIO (0.9-2.4); AST(SGOT) 15 U/L (15-37); Alanine Aminotransfer ALT/SGPT 25 U/L (13-56); Albumin, Serum 3.4 g/dL (3.2-5.0); Alkaline Phosphatase 106 U/L (45-117); Anion Gap 5 (5-15); BUN 14 mg/dL (7-18); BUN/Creat Ratio 15.8 RATIO (10-20); Calcium,Total 8.2 mg/dL (8.5-10.1); Chloride 111 mmol/L (98-107); Creatinine, Serum 0.88 mg/dL (0.55-1.02); EST Glomerular Filtration Rate 77 mL/min (>60); Est Glom Filt Rate - Afr Amer 93 mL/min (>60); Estimated Creatinine Clearance 83.53 ml/min; Globulin 4.4 g/dL (2.2-4.2); Glucose 96 mg/dL (74-106); Internal QC Validated? YES +Cl - CLEAR BKGD; Lipase 29 U/L (13-75); Potassium 3.7 mmol/L (3.5-5.1); Pregnancy, Serum, hCG Quali. NEGATIVE Negative; Protein, Total 7.8 g/dL (6.4-8.2); Sodium Level 141 mmol/L (136-145)
[2023-04-08 18:40] LABS: Color, Urine Yellow (Yellow); Glucose, Dipstick Normal (Normal); Ketone-Dipstick Negative (Negative); Leukocyte Esterase-Dipstick 25 /ul (Negative); Nitrite-Dipstick Negative (Negative); Occult Blood-Urine Negative /ul (Negative); Protein-Dipstick 15 mg/dl (Negative); Urine Bilirubin Dipstick Negative (Negative); Urine Clarity Clear (Clear); Urine Urobilinogen Normal (Normal); Urine pH 6.5 (5.0 - 8.0)
[2023-04-08 18:53] LABS: Bacteria 2+ /hpf (None Seen); Squamous Epithelial Cells - UA 0-5 SEEN /hpf (5-10); White Blood Cells 0-5 SEEN /hpf (0-5)
[2023-04-08] MEDS: Ondansetron 4 MG/2 ML Vial IV (19:13)
[2023-04-08] MEDS: 0.9% Normal Saline 1,000 ML 1000 ML IV (19:13)
[2023-04-08] MEDS: Morphine 4 MG/ML Syringe IV (19:13)
[2023-04-08 20:18] VITALS: PULSE 78; RESP 18; O2SAT 100
== END 2023-04-08 20:19 | disposition home or self-care (01) ==
PROVIDERS: Emergency Provider Emergency Medicine; Visit Provider Emergency Medicine
DX: R10.9 Unspecified abdominal pain (principal); R21 Rash and other nonspecific skin eruption; R11.0 Nausea; M54.9 Dorsalgia, unspecified; R30.0 Dysuria
CPT/HCPCS: 74176; 80053; 81001; 83690; 84703; 85025; 96361; 96374; 96375; 99282; J7030; A4216; J2405

== ENCOUNTER 2023-05-28 20:09 | Emergency (ER) | payer MEDICAID, SELFPAY ==
[2023-05-28 20:10] VITALS: BP 166/90; PULSE 97; RESP 18; TEMP 36.6; O2SAT 100; BMI 36.9
--- NOTE | 2023-05-28 20:52 | CT_ITS ---
EXAM: CT ABDOMEN AND PELVIS WITHOUT IV CONTRAST - CT Abdomen And Pelvis W/O Contrast Injection HISTORY: Pain Left flank pain x3 days, history of kidney stones, cholecystectomy, IBS. TECHNIQUE: Routine protocol CT abdomen and pelvis. IV Contrast: None.. Oral contrast: None. RADIATION DOSAGE (If Supplied By Facility): CTDIvol = ( 17.87 ) mGy, DLP = ( 933.18 ) mGycm Individualized dose optimization techniques were used for this CT. COMPARISON: CT abdomen and pelvis 04/08/2023. LIMITATIONS: None. FINDINGS: LOWER CHEST: Included lung bases are clear. LIVER: Grossly unremarkable. GALLBLADDER AND BILIARY TREE: Gallbladder surgically absent. PANCREAS: Grossly unremarkable. SPLEEN: Grossly unremarkable. ADRENAL GLANDS: Grossly unremarkable. KIDNEYS AND URETERS: Tiny calculus in the right kidney. No hydronephrosis. PERITONEUM: No free air. No free fluid. BOWEL: No bowel obstruction. APPENDIX: Visualized and unremarkable. No evidence of acute appendicitis. VESSELS: Abdominal aorta is normal caliber. REPRODUCTIVE ORGANS: Grossly unremarkable URINARY BLADDER: Grossly unremarkable. ABDOMINAL WALL: Unremarkable. BONES: No acute abnormalities. CT/Abdomen/Pelvis without Cont IMPRESSION: No acute findings. Right nephrolithiasis without hydronephrosis. Electronically Signed: Mariah Montalvo MD at 22:19 EDT ,
--- NOTE | 2023-05-28 20:53 | ED.VIS.GI ---
HPI HPI - GI History of Present Illness Chief Complaint: Flank Pain Detail of Chief Complaint: Left lower paraspinal back pain and flank pain. Informant: patient Abdominal Pain/Flank Pain Onset: Days Context: Gradual Onset Timing: Intermittent Quality: Aching Location: Left Flank Current Severity: Mild Maximum Severity: Mild Worsened by: Nothing Relieved by: Nothing Nausea/Vomiting/Emesis GI Symptom: Positive for Nausea; Negative for Vomiting Severity: Mild Diarrhea/Melena/Hematochezia GI Symptom: Negative for Diarrhea, Melena or Hematochezia Associated Symptoms Associated Symptoms: Negative for Dysuria, Frequency, Hematuria or Urgency Narrative Narrative: 41-year-old female history of kidney stones with 1 prior surgery for stone. She has also musculoskeletal back pain. States that for last 3 days has had left flank pain that comes and goes. It is pretty much paraspinal along the lower thoracic and upper lumbar spine. No fall injury or trauma. She denies any abdominal pain. No fever or dysuria. She is having associated nausea without vomiting. No diarrhea or fever. Prior similar symptoms: Yes Recent Illness/Hospitalization: No PFSH PFSH Medical History Bruising Cardiology follow-up encounter Easy bruising Generalized anxiety disorder Heartburn History of echocardiogram History of IBS Kidney stones Left ureteral calculus Major depressive disorder, recurrent severe without psychotic features Migraines Non-smoker Ovarian cyst PTSD (post-traumatic stress disorder) Shortness of breath on exertion Home Medications acetazolamide 500 mg capsule,extended release 500 mg PO BID PSEUDOTUMOR 06/23/21 [History Last Taken Unknown] [id number] 1 mg tablet 1 tab PO DAILY 08/18/22 [History Last Taken Unknown] cephalexin 500 mg capsule 500 mg PO Q12 post-operative 3 days #6 CAPSULES 08/24/22 [Rx Last Taken Unknown] ondansetron HCl 8 mg tablet 8 mg PO Q8H PRN PRN Nausea 7 days #20 TABLETS 08/24/22 [Rx Last Taken Unknown] oxycodone-acetaminophen 5 mg-325 mg tablet (Percocet) 1 tab PO Q8H PRN pain 3 days #14 tabs 08/24/22 [Rx Last Taken Unknown] ciprofloxacin HCl 500 mg tablet 500 mg PO BID #14 TABLETS 11/30/22 [Rx Last Taken Unknown] hydrocodone-acetaminophen 5-325mg 5mg-325mg 1 tab PO Q6H PRN PRN Pain 3 days #10 TABLETS 04/08/23 [Rx Last Taken Unknown] Allergy/AdvReac Type Severity Reaction Status Date / Time adhesive tape AdvReac Other Verified 05/28/23 20:11 Surgical History History of section History of cholecystectomy History of umbilical hernia repair History of urethral stent Hx of cystoscopy Hx of dilation and curettage Hx of tympanostomy tubes Social History household members: spouse Smoking Status: Never smoker ROS ROS ED ROS Narrative Atraumatic left flank pain. Review of Systems ROS Unobtainable: Denies due to encephalopathy Constitutional Constitutional ED: Denies chills or fever(s) ENT ENT ED: Denies ear pain Cardiovascular Cardiovascular: Denies chest pain Respiratory/Chest Respiratory/Chest: Denies cough or dyspnea Gastrointestinal Gastrointestinal: Reports nausea; Denies abdominal pain, constipation, diarrhea, melena or vomiting Genitourinary Genitourinary ED: Denies dysuria or hematuria Musculoskeletal Musculoskeletal: Reports back pain; Denies arthralgias Integumentary Denies abscess or Abrasions Neurologic Neurologic: Denies headache(s) Psychiatric Psychiatric: Denies anxiety or depression Endocrine Endocrinology: Denies polydipsia Hematologic/Lymphatic Hematologic/Lymphatic: Denies easy bleeding or easy bruising Allergic/Immunologic Allergic/Immunologic ED: Denies mouth swelling or tongue swelling EXAM Physical Exam Narrative Exam Narrative: -year-old female vital signs stable afebrile. No acute distress. HEENT exam unremarkable. Neck nontender. Lungs clear to auscultation. Heart regular rhythm rate about 95 no murmur. Chest wall ribs nontender. Abdomen soft nontender normal bowel sounds no peritoneal signs. Moves all 4 extremities. Nontender no edema. Back her left paraspinal soft tissue musculature is tender to palpation along the lower thoracic and upper lumbar spine. The spine cells nontender. There is no signs of trauma. No bruising. No redness or warmth. Neurologically she is awake alert with no focal motor deficits. Answering questions following commands. Const Vital Signs: 05/28/23 20:10 Temperature 97.9 F Temperature Source Temporal Pulse Rate 97 Respiratory Rate 18 Blood Pressure 166/90 H Blood Pressure Mean 115 Pulse Ox 100 Oxygen Delivery Method Room Air Positive well nourished and well developed; Negative for cachectic, contractures or unkempt General Appearance ED: well developed and NAD; Negative for unkempt, cachectic, contractures or pallor Nutritional Appearance: Negative for cachectic HEENT Reports moist mucous membranes normocephalic and atraumatic; Negative for trauma or tenderness Eyes PERRL and EOMs intact bilaterally General Eye ED: Negative for pale conjunctiva or scleral icterus Neck no lymphadenopathy, supple and no JVD General: Negative for tenderness Carotids: Negative for other Lymph Lymphatic: Negative for other Resp normal respiratory effort and clear to auscultation bilaterally Effort and Inspection: Negative for respiratory distress Auscultation: Negative for rales, rhonchi or wheezes Cardio regular rate, regular rhythm, S1 normal heart sound, S2 normal heart sound and no murmurs Rate: Negative for bradycardia or tachycardic Rhythm: Negative for abnormal rhythm GI non-tender, non-distended and no masses Inspection: Negative for abdominal distention Auscultation: normoactive bowel sounds Palpation: soft; Negative for tender or guarding Back/Spine no CVA tenderness General Back: Negative for CVA tenderness Cervical Spine: Negative for cervical spine tenderness Thoracic Spine / Upper Back: Negative for thoracic spinal tenderness Lumbar Spine / Lower Back: Negative for lumbar spinal tenderness Coccyx: Negative for other Extremity full ROM General Extremety ED: Negative for edema or tenderness General Extremity: Negative for edema Neuro CN's II-XII intact bilaterally and moves all extremities Sensorium / Orientation: alert, oriented to person, oriented to place and oriented to time; Negative for orientation impaired, confused, lethargic or stuporous Motor Exam: strength 5/5 throughout Psych mental status grossly normal and thought process normal Appearance: Negative for unkempt Attitude: No agitated Mood & Affect: Negative for depressed, anxious or tearful Skin no wounds General Skin Exam: Negative for jaundice or pallor Rashes: no rashes Trauma: Negative for abrasion Nails: Negative for discolored MDM MDM MDM Narrative Medical decision making narrative: 37-year-old female with left flank pain that appears to be musculoskeletal reproducible back pain. Could also be a kidney stone and GI. CAT scan labs are pending. Treated with Zofran for nausea. Repeat exam at 10:40 PM repeat exam doing well. Patient be treated with ibuprofen and Tylenol for pain. Discharged home. I believe this to be musculoskeletal back pain. There are no signs of an acute kidney stone or urinary tract infection. Lab Data Attestation: I reviewed the patient's lab results. Lab results narrative: CBC shows a white count 1.9. H&H 12.4 and 39. Chemistries show gap of 6. BUN and creatinine is 16 and 1. Serum test negative. Urinalysis negative. No white or red cells. No nitrates. No bacteria. CT flank study showed stones in the right kidney. But no acute abnormality. Labs: Laboratory Results - last 24 hr 05/28/23 21:17 WBC 11.9 H RBC 4.90 Hgb 12.4 Hct 39.1 MCV 79.8 L MCH 25.3 L MCHC 31.7 L RDW Std Deviation 41.1 RDW Coeff of Theresa 14.3 Plt Count TNP MPV 10.6 Immature Gran % (Auto) 0.300 Neut % (Auto) 60.0 Lymph % (Auto) 31.3 Sebastian % (Auto) 6.5 Eos % (Auto) 1.5 Baso % (Auto) 0.4 Absolute Neuts (auto) 7.1 Absolute Lymphs (auto) 3.71 Nucleated RBC % 0 Platelet Estimate ADEQUATE Sodium 137 Potassium 4.0 Chloride 111 H Carbon Dioxide 20.0 L Anion Gap 6 BUN 16 Creatinine 1.06 H Estim Creat Clear Calc 69.35 Est GFR (MDRD) Af Amer 76 Est GFR (MDRD) Non-Af 63 BUN/Creatinine Ratio 15.1 Glucose 106 Calcium 8.6 Serum , Qual NEGATIVE Urine Color Yellow Urine Clarity Sl. Cloudy Urine pH 6.0 Ur Specific [place] 1.025 Urine Protein Negative Urine Glucose (UA) Normal Urine Ketones Negative Urine Occult Blood Negative Urine Nitrite Negative Urine Bilirubin Negative Urine Urobilinogen Normal Ur Leukocyte Esterase Negative Urine RBC 0 SEEN Urine WBC 0 SEEN Ur Squamous Epith Cells 0-5 SEEN Amorphous Sediment 1+ URATE Urine Bacteria 0 SEEN Urine Mucus 0 SEEN Radiography Diagnostic Testing: Clinical Impression(s) from Imaging Studies Abdomen/Pelvis CT 05/28/23 20:52 IMPRESSION: No acute findings. Right nephrolithiasis without hydronephrosis. Electronically Signed: Mariah Montalvo MD at 22:19 EDT , Discharge Plan Triage Chief Complaint: Flank Pain ED Provider: Talha Salinas Dx/Rx/DC Orders Clinical Impression: Flank pain, History of kidney stones, Musculoskeletal back pain Instructions: ED Back Pain (Acute or Chronic) Prescriptions: No Action acetazolamide 500 mg capsule, extended release 500 mg PO BID [id number] 1 mg Tablet 1 tab PO DAILY ondansetron HCl [ondansetron HCl] 8 mg tablet 8 mg PO Q8H PRN PRN (Reason: Nausea) 7 Days Qty: 20 0RF oxycodone-acetaminophen [Percocet] 5-325 mg tablet 1 tab PO Q8H PRN (Reason: pain) 3 Days Qty: 14 0RF cephalexin [cephalexin] 500 mg capsule 500 mg PO Q12 3 Days Qty: 6 0RF ciprofloxacin HCl [ciprofloxacin HCl] 500 mg tablet 500 mg PO BID Qty: 14 0RF hydrocodone-acetaminophen [hydrocodone-acetaminophen] 5-325 mg tablet 1 tab PO Q6H PRN PRN (Reason: Pain) 3 Days Qty: 10 0RF Primary Care Provider: Care Physician,No Primary Referrals: Miguel Angel Mcneill MD [Non-Staff] - 1 Week if not improving Care Physician,No Primary [Primary Care Provider] - Activity Restrictions/Additional Instructions: This appears to be musculoskeletal back pain. There is no signs of kidney stone or kidney infection. Ibuprofen and Tylenol for pain. Hot shower. Warm bath. Hot tub. Massage. Follow-up with not improving. All your labs, urinalysis and CAT scan otherwise were unremarkable. Disposition Disposition: Home, Self Care
[2023-05-28 21:22] LABS: Bacteria 0 SEEN /hpf (None Seen); Mucous, Urine 0 SEEN /hpf (<or=2+); Red Blood Cells-Urine 0 SEEN /hpf (0-5); White Blood Cells 0 SEEN /hpf (0-5)
[2023-05-28 21:24] LABS: Color, Urine Yellow (Yellow); Glucose, Dipstick Normal (Normal); Ketone-Dipstick Negative (Negative); Leukocyte Esterase-Dipstick Negative /ul (Negative); Nitrite-Dipstick Negative (Negative); Occult Blood-Urine Negative /ul (Negative); Protein-Dipstick Negative (Negative); Specific Gravity, Urine 1.025 (1.002-1.030); Urine Bilirubin Dipstick Negative (Negative); Urine Clarity Sl. Cloudy (Clear); Urine Urobilinogen Normal (Normal)
[2023-05-28 21:25] LABS: Absolute Lymphocyte Count 3.71 X10^3/uL (0.83-4.51); Absolute Neutrophil Count 7.1 X10^3/uL (2.0-7.7); Basophil# 0.05 X10^3/uL; Basophil% 0.4 % (0-1); Eosinophil# 0.18 X10^3/uL; Eosinophils% 1.5 % (0-5); Hematocrit 39.1 % (37-47); Hemoglobin 12.4 g/dL (12.0-15.0); Lymphocyte # 3.71 X10^3/ul (0.83-4.51); Lymphocyte % 31.3 % (19-41); Mean Corp Hgb Conc 31.7 g/dL (32-36); Mean Corpuscular Hgb 25.3 pg (27.0-32.0); Mean Corpuscular Volume 79.8 fL (81-99); Mean Platelet Vol. 10.6 fl (6.2-12.0); Monocyte# 0.77 X10^3/uL; Monocyte% 6.5 % (0-10); NRBC Flagged by Analyzer 0 % (0-5); Neutrophil # 7.11 X10^3/uL (2.7-7.7); POSITIVE COUNT YES; POSITIVE MORPHOLOGY YES; RBC Distribution Width CV 14.3 % (11.6-14.6); RBC Distribution Width SD 41.1 fl (35.1-43.9); White Blood Count 11.9 K/mm3 (4.4-11.0)
[2023-05-28 21:26] LABS: Differential Indicated SCAN CRITERIA MET
[2023-05-28 21:37] LABS: Internal QC Validated? YES +Cl - CLEAR BKGD; Pregnancy, Serum, hCG Quali. NEGATIVE Negative
[2023-05-28 21:40] LABS: Amorphous Sediment 1+ URATE; Squamous Epithelial Cells - UA 0-5 SEEN /hpf (5-10)
[2023-05-28 21:45] LABS: Anion Gap 6 (5-15); BUN 16 mg/dL (7-18); BUN/Creat Ratio 15.1 RATIO (10-20); Calcium,Total 8.6 mg/dL (8.5-10.1); Chloride 111 mmol/L (98-107); Creatinine, Serum 1.06 mg/dL (0.55-1.02); EST Glomerular Filtration Rate 63 mL/min (>60); Est Glom Filt Rate - Afr Amer 76 mL/min (>60); Estimated Creatinine Clearance 69.35 ml/min; Glucose 106 mg/dL (74-106); Sodium Level 137 mmol/L (136-145)
[2023-05-28 21:46] LABS: Platelet Estimate ADEQUATE (ADEQ)
[2023-05-28] MEDS: Ondansetron 4 MG/2 ML Vial IV (21:49)
[2023-05-28 22:09] VITALS: RESP 18
[2023-05-28] MEDS: Ibuprofen 400 MG Tablet 800 MG PO (23:02)
== END 2023-05-28 23:07 | disposition home or self-care (01) ==
PROVIDERS: Emergency Provider Emergency Medicine; Visit Provider Emergency Medicine
DX: M54.50 Low back pain, unspecified (principal); R10.9 Unspecified abdominal pain; R11.0 Nausea; Z87.442 Personal history of urinary calculi
CPT/HCPCS: 74176; 80048; 81001; 84703; 85025; 96374; 99285; A4216; J2405

== ENCOUNTER 2023-06-09 15:18 | Emergency (ER) | payer MEDICAID, SELFPAY ==
[2023-06-09 15:20] VITALS: BP 156/103; PULSE 99; RESP 14; TEMP 36.4; O2SAT 99; BMI 36.7
--- NOTE | 2023-06-09 15:42 | CT_ITS ---
EXAM: CT ANGIOGRAPHY CHEST WITHOUT AND WITH INTRAVENOUS CONTRAST CLINICAL INDICATION: cp TECHNIQUE: Helically acquired angiography images were obtained of the chest without and with intravenous contrast. This CT exam was performed using one or more of the following dose reduction techniques: automated exposure control, adjustment of the mA and/or kV according to patient size, and/or use of iterative reconstruction technique. MIP reconstructed images were created and reviewed. CONTRAST: IV 100mL Isovue-370 COMPARISON: 06/17/2018 FINDINGS: PULMONARY ARTERIES: Unremarkable. Normal in caliber. No evidence of pulmonary embolism. AORTA: Unremarkable. Normal in caliber. No evidence of dissection. GREAT VESSELS OF AORTIC ARCH: Unremarkable. Normal in caliber. No evidence of dissection. LUNGS AND PLEURAL SPACES: Unremarkable. No mass. No consolidation or edema. No pleural effusion or thickening. No pneumothorax. HEART: Unremarkable. Heart size is normal. No pericardial effusion. No significant coronary artery calcifications. MEDIASTINUM: Unremarkable. No mediastinal or hilar adenopathy. Esophagus is unremarkable. No hiatal hernia. THYROID: Unremarkable. No thyroid lesions. BONES/JOINTS: Unremarkable. No suspicious lytic or blastic abnormality. CT/CTA Chest W/WO Contrast IMPRESSION: Negative CTA chest. Electronically Signed: Brandt Romero MD at 17:48 EDT ,
--- NOTE | 2023-06-09 15:44 | ED.VIS.CHEST ---
HPI History of Present Illness Chief Complaint: Chest Pain Informant: patient Onset/Context/Timing Onset: Today Activity at onset: sudden Quality: Positive for Sharp Location: Substernal Current Severity: Moderate Maximum Severity: Moderate Narrative Narrative: Patient presents secondary to upper chest pain that radiates through to her back. Pain started about an hour ago when she was standing at rest. She reports some intermittent shortness of breath. She denies any known cardiac history, but states her brother just had rather emergent heart surgery. She does not know what the procedure was or what it was done for. She states she was told it was something hereditary. [facility] Medical History Bruising Cardiology follow-up encounter Easy bruising Generalized anxiety disorder Heartburn History of echocardiogram History of IBS Kidney stones Left ureteral calculus Major depressive disorder, recurrent severe without psychotic features Migraines Non-smoker Ovarian cyst PTSD (post-traumatic stress disorder) Shortness of breath on exertion Home Medications acetazolamide 500 mg capsule,extended release 500 mg PO BID PSEUDOTUMOR 06/23/21 [History Last Taken Unknown] [id number] 1 mg tablet 1 tab PO DAILY 08/18/22 [History Last Taken Unknown] cephalexin 500 mg capsule 500 mg PO Q12 post-operative 3 days #6 CAPSULES 08/24/22 [Rx Last Taken Unknown] ondansetron HCl 8 mg tablet 8 mg PO Q8H PRN PRN Nausea 7 days #20 TABLETS 08/24/22 [Rx Last Taken Unknown] oxycodone-acetaminophen 5 mg-325 mg tablet (Percocet) 1 tab PO Q8H PRN pain 3 days #14 tabs 08/24/22 [Rx Last Taken Unknown] ciprofloxacin HCl 500 mg tablet 500 mg PO BID #14 TABLETS 11/30/22 [Rx Last Taken Unknown] hydrocodone-acetaminophen 5-325mg 5mg-325mg 1 tab PO Q6H PRN PRN Pain 3 days #10 TABLETS 04/08/23 [Rx Last Taken Unknown] Allergy/AdvReac Type Severity Reaction Status Date / Time adhesive tape AdvReac Other Verified 06/09/23 15:20 Surgical History History of section History of cholecystectomy History of umbilical hernia repair History of urethral stent Hx of cystoscopy Hx of dilation and curettage Hx of tympanostomy tubes Social History household members: spouse Smoking Status: Never smoker ROS ROS ED Constitutional Constitutional ED: Denies chills or fever(s) Eyes Eyes: Denies change in vision or discharge from eye(s) ENT ENT ED: Denies discharge from eye(s), rhinorrhea or sore throat Cardiovascular Cardiovascular: Reports chest pain; Denies palpitations Respiratory/Chest Respiratory/Chest: Reports dyspnea; Denies cough Gastrointestinal Gastrointestinal: Denies abdominal pain, nausea or vomiting Genitourinary Genitourinary ED: Denies difficulty urinating or dysuria Musculoskeletal Musculoskeletal: Reports back pain; Denies extremity pain Integumentary Denies Abrasions or rash Neurologic Neurologic: Denies headache(s) or weakness Psychiatric Psychiatric: Reports anxiety; Denies depression Allergic/Immunologic Allergic/Immunologic ED: Denies lip swelling or urticaria EXAM Physical Exam Const Vital Signs: 06/09/23 15:20 06/09/23 15:42 06/09/23 15:52 Temperature 97.6 F L Temperature Source Temporal Pulse Rate 99 Respiratory Rate 14 Respiratory Effort Short of Breath Blood Pressure 156/103 H Blood Pressure Mean 120 Pulse Ox 99 Oxygen Delivery Method Room Air Room Air 06/09/23 17:02 06/09/23 18:01 Temperature Temperature Source Pulse Rate 79 71 Respiratory Rate 18 18 Respiratory Effort Blood Pressure 120/84 H Blood Pressure Mean 96 Pulse Ox 95 98 Oxygen Delivery Method Room Air Room Air Positive well nourished and well developed General Appearance ED: well developed HEENT Reports normocephalic and head/scalp atraumatic Eyes PERRL and EOMs intact bilaterally Neck supple Chest Wall inspection of chest normal and palpation of chest normal Resp normal respiratory effort and clear to auscultation bilaterally Cardio regular rate and regular rhythm GI soft to palpation Palpation: soft Extremity normal to inspection Extremity Narrative: Equal and strong distal pulses in the ankles and wrists bilaterally Neuro oriented x3 and no sensory deficits noted Sensorium / Orientation: alert Motor Exam: strength 5/5 throughout Psych Mood & Affect: anxious and tearful Skin no rashes or lesions noted Heart Score History: Slightly/Non-Suspicious ECG: Normal Age: </= 45 years Risk Factors: 1 or 2 Risk Factors Troponin: </= Normal Limit Score: 1 MDM MDM MDM Narrative Medical decision making narrative: Patient is given aspirin along with morphine and Zofran for pain. EKG obtained to evaluate for cardiac arrhythmia/ischemia. Labwork obtained to evaluate for leukocytosis, anemia, and electrolyte derangement. CTA of the chest is obtained to evaluate for dissection given the pain in the upper chest that radiates through to her back and uncertain family history. History & Record Review Discussion w/independent historian: Patient Lab Data Attestation: I reviewed the patient's lab results. Labs: Laboratory Results - last 24 hr 06/09/23 06/09/23 15:38 18:00 WBC 10.8 RBC 5.23 Hgb 13.5 Hct 41.0 MCV 78.4 L MCH 25.8 L MCHC 32.9 RDW Std Deviation 39.8 RDW Coeff of Theresa 14.1 Plt Count 393 MPV 9.5 Immature Gran % (Auto) 0.200 Neut % (Auto) 59.4 Lymph % (Auto) 28.1 [place] % (Auto) 10.2 H Eos % (Auto) 1.5 Baso % (Auto) 0.6 Absolute Neuts (auto) 6.4 Absolute Lymphs (auto) 3.03 Nucleated RBC % 0 Sodium 140 Potassium 3.8 Chloride 114 H Carbon Dioxide 22.0 Anion Gap 4 L BUN 12 Creatinine 0.94 Estim Creat Clear Calc 78.20 Est GFR (MDRD) Af Amer 86 Est GFR (MDRD) Non-Af 71 BUN/Creatinine Ratio 12.7 Glucose 98 Calcium 8.6 Troponin I High Sens < 3 L 3 Serum , Qual NEGATIVE Radiography Diagnostic Testing: Clinical Impression(s) from Imaging Studies Chest CTA 06/09/23 15:42 IMPRESSION: Negative CTA chest. Electronically Signed: Brandt Romero MD at 17:48 EDT , EKG Initial EKG: Attestation: I personally reviewed and interpreted this EKG as follows: Interpretation: Sinus Rhythm (Sinus at 87 with no acute ischemia.) Treatment and Re-Evaluation :: CBC was normal white count at 10.8 with a hemoglobin of 13.5. Chemistry studies are unremarkable with normal renal function. test is negative. Initial troponin is less than 3 with 2-hour repeat 3. CTA of the chest reveals no acute findings. There is no evidence of pulmonary embolism or dissection. After the patient had been given her pain medication she continued to have a lot of anxiety and was very tearful. She was given a small dose of Ativan. Patient does admit that her anxiety has been a big problem lately. At the time of my repeat exam she is resting comfortably and feels much improved. Test results are discussed with her. I encouraged her to talk to her brother to find out exactly what his medical problem was that prompted him to have the rather emergent heart surgery. She can then talk to her doctor about this to see if there is any preliminary testing she needs to have or at least educate her on what to watch for. I think this will help alleviate some of her anxiety. She is comfortable with this plan. Return instructions given. Discharge Plan Triage Chief Complaint: Chest Pain ED Provider: Dasha Liang Dx/Rx/DC Orders Clinical Impression: Chest pain Instructions: ED Chest Pain, Uncertain Cause Prescriptions: No Action acetazolamide 500 mg capsule, extended release 500 mg PO BID [id number] 1 mg Tablet 1 tab PO DAILY ondansetron HCl [ondansetron HCl] 8 mg tablet 8 mg PO Q8H PRN PRN (Reason: Nausea) 7 Days Qty: 20 0RF oxycodone-acetaminophen [Percocet] 5-325 mg tablet 1 tab PO Q8H PRN (Reason: pain) 3 Days Qty: 14 0RF cephalexin [cephalexin] 500 mg capsule 500 mg PO Q12 3 Days Qty: 6 0RF ciprofloxacin HCl [ciprofloxacin HCl] 500 mg tablet 500 mg PO BID Qty: 14 0RF hydrocodone-acetaminophen [hydrocodone-acetaminophen] 5-325 mg tablet 1 tab PO Q6H PRN PRN (Reason: Pain) 3 Days Qty: 10 0RF Primary Care Provider: Care Physician,No Primary Referrals: Veronique Shea MD [Med Staff - [employer]] - 1-2 Weeks Care Physician,No Primary [Primary Care Provider] - Disposition Disposition: Home, Self Care
[2023-06-09] MEDS: Aspirin 81 MG TAB.CHEW 324 MG PO (15:56)
[2023-06-09 15:57] LABS: Absolute Lymphocyte Count 3.03 X10^3/uL (0.83-4.51); Absolute Neutrophil Count 6.4 X10^3/uL (2.0-7.7); Basophil# 0.07 X10^3/uL; Basophil% 0.6 % (0-1); Eosinophil# 0.16 X10^3/uL; Eosinophils% 1.5 % (0-5); Hemoglobin 13.5 g/dL (12.0-15.0); Lymphocyte # 3.03 X10^3/ul (0.83-4.51); Lymphocyte % 28.1 % (19-41); Mean Corp Hgb Conc 32.9 g/dL (32-36); Mean Corpuscular Hgb 25.8 pg (27.0-32.0); Mean Corpuscular Volume 78.4 fL (81-99); Mean Platelet Vol. 9.5 fl (6.2-12.0); Monocyte% 10.2 % (0-10); NRBC Flagged by Analyzer 0 % (0-5); Neutrophil # 6.39 X10^3/uL (2.7-7.7); Neutrophil % 59.4 % (47-70); Platelet Count 393 K/mm3 (150-450); RBC Distribution Width CV 14.1 % (11.6-14.6); RBC Distribution Width SD 39.8 fl (35.1-43.9); Red Blood Count 5.23 M/mm3 (4.2-5.4); White Blood Count 10.8 K/mm3 (4.4-11.0)
[2023-06-09] MEDS: Morphine 4 MG/ML Syringe IV (15:57)
[2023-06-09] MEDS: Ondansetron 4 MG/2 ML Vial IV (15:57)
[2023-06-09 16:15] LABS: Internal QC Validated? YES +Cl - CLEAR BKGD; Pregnancy, Serum, hCG Quali. NEGATIVE Negative
[2023-06-09 16:18] LABS: Anion Gap 4 (5-15); BUN 12 mg/dL (7-18); BUN/Creat Ratio 12.7 RATIO (10-20); Calcium,Total 8.6 mg/dL (8.5-10.1); Chloride 114 mmol/L (98-107); Creatinine, Serum 0.94 mg/dL (0.55-1.02); EST Glomerular Filtration Rate 71 mL/min (>60); Est Glom Filt Rate - Afr Amer 86 mL/min (>60); Glucose 98 mg/dL (74-106); Potassium 3.8 mmol/L (3.5-5.1); Sodium Level 140 mmol/L (136-145); Troponin-I HS (w/2H Reflex) < 3 pg/mL (3.0-54.0)
[2023-06-09] MEDS: LORazepam 2 MG/ML Syringe 0.5 MG IV (16:22)
[2023-06-09 17:02] VITALS: PULSE 79; RESP 18; O2SAT 95
[2023-06-09 17:51] LABS: Reflex Troponin-HS? (from REC) Y
[2023-06-09 18:01] VITALS: BP 120/84; PULSE 71; RESP 18; O2SAT 98
[2023-06-09 18:24] LABS: Troponin-I HS 3 pg/mL (3.0-54.0)
[2023-06-09 19:29] VITALS: BP 124/68; PULSE 84; RESP 18; O2SAT 98
== END 2023-06-09 19:29 | disposition home or self-care (01) ==
PROVIDERS: Emergency Provider Emergency Medicine; Visit Provider Emergency Medicine
DX: R07.9 Chest pain, unspecified (principal); Z90.49 Acquired absence of other specified parts of digestive tract
CPT/HCPCS: 71275; 80048; 84484; 84703; 85025; 93005; 96374; 96375; 99284; Q9967; A4216; J2405

== ENCOUNTER 2023-06-25 23:21 | Emergency (ER) | payer MEDICAID, SELFPAY ==
[2023-06-25 23:22] VITALS: BP 167/92; PULSE 73; RESP 16; TEMP 36.6; O2SAT 99; BMI 37.1
[2023-06-25 23:24] VITALS: BP 167/92; PULSE 73; RESP 16; TEMP 36.4; O2SAT 99
--- NOTE | 2023-06-25 23:47 | EDS_ITS ---
HPI History of Present Illness Chief Complaint: Complaint Detail of Chief Complaint: Dysuria Informant: patient Narrative Narrative: Patient presents with dysuria that started around 10:30 PM tonight. Patient took a cephalexin which she has because she gets frequent urinary tract infections. She tried to go to [facility] to get Pyridium but they had sold out. She just wanted something for the burning. She denies frequency or urgency. She denies fever. She had no vomiting. She denies abdomen or back pain. PFSH PFS Medical History Bruising Cardiology follow-up encounter Easy bruising Generalized anxiety disorder Heartburn History of echocardiogram History of IBS Kidney stones Left ureteral calculus Major depressive disorder, recurrent severe without psychotic features Migraines Non-smoker Ovarian cyst PTSD (post-traumatic stress disorder) Shortness of breath on exertion Home Medications acetazolamide 500 mg capsule,extended release 500 mg PO BID PSEUDOTUMOR 06/23/21 [History Last Taken Unknown] cephalexin 500 mg capsule 500 mg PO Q6 #28 CAPSULES 06/26/23 [Rx Last Taken Unknown] phenazopyridine 200 mg tablet (Pyridium) 200 mg PO TID 6 doses #6 tabs 06/26/23 [Rx Last Taken Unknown] Allergy/AdvReac Type Severity Reaction Status Date / Time adhesive tape AdvReac Other Verified 06/25/23 23:22 Surgical History History of section History of cholecystectomy History of umbilical hernia repair History of urethral stent Hx of cystoscopy Hx of dilation and curettage Hx of tympanostomy tubes Social History household members: spouse Smoking Status: Never smoker ROS ROS ED Review of Systems ROS Unobtainable: other Constitutional Constitutional ED: Reports lethargy; Denies chills, fever(s), sweats or weight loss Eyes Eyes: Denies blurry vision, change in vision or diplopia ENT ENT ED: Denies rhinorrhea or sore throat Cardiovascular Cardiovascular: Denies chest pain, orthopnea or racing heartbeat Respiratory/Chest Respiratory/Chest: Denies cough, dyspnea, dyspnea on exertion, orthopnea or sputum Gastrointestinal Gastrointestinal: Denies abdominal pain, diarrhea, nausea or vomiting Genitourinary Genitourinary ED: Reports dysuria; Denies hematuria or urinary frequency Musculoskeletal Musculoskeletal: Denies arthralgias, back pain, myalgias or neck pain Integumentary Denies abscess, Abrasions or rash Neurologic Neurologic: Denies headache(s) or weakness Psychiatric Psychiatric: Denies anxiety, depression or suicidal thoughts Endocrine Endocrinology: Denies polydipsia, polyphagia or polyuria Hematologic/Lymphatic Hematologic/Lymphatic: Denies easy bleeding, easy bruising or lymphadenopathy Allergic/Immunologic Allergic/Immunologic ED: Denies mouth swelling, tongue swelling or urticaria EXAM Physical Exam Const Vital Signs: 06/25/23 23:22 06/25/23 23:24 Temperature 97.8 F 97.5 F L Temperature Source Temporal Temporal Pulse Rate 73 73 Respiratory Rate 16 16 Blood Pressure 167/92 H 167/92 H Blood Pressure Mean 117 117 Pulse Ox 99 99 Positive well nourished and well developed General Appearance ED: well developed and NAD HEENT Reports TM's clear and moist mucous membranes normocephalic and atraumatic; Negative for trauma or tenderness Tympanic Membrane ED: Yes TM's clear Eyes PERRL and EOMs intact bilaterally General Eye ED: Negative for pale conjunctiva or scleral icterus Neck no lymphadenopathy, supple and no JVD General: Negative for tenderness Chest Wall inspection of chest normal and palpation of chest normal Chest: Negative for tenderness Resp normal respiratory effort and clear to auscultation bilaterally Effort and Inspection: Negative for respiratory distress or pain with movement Auscultation: Negative for rhonchi, wheezes or diminished lung sounds Cardio regular rate, regular rhythm, S1 normal heart sound, S2 normal heart sound and no murmurs Peripheral Pulses: pulses 2+ throughout GI normal to inspection, nondistended, normoactive bowel sounds, soft to palpation, non-tender, non-distended and no masses Back/Spine no CVA tenderness and no thoracic nor lumbar tenderness Extremity normal to inspection General Extremety ED: Negative for edema General Extremity: Negative for edema Neuro oriented x3, CN's II-XII intact bilaterally, no sensory deficits noted and gait normal Sensorium / Orientation: awake, alert, oriented to person, oriented to place and oriented to time Motor Exam: strength 5/5 throughout and strength abnormal Psych mental status grossly normal Skin no rashes or lesions noted and no wounds MDM MDM MDM Narrative Medical decision making narrative: Patient presents with dysuria that started this evening. Urinalysis obtained showed 10-25 WBCs and +2 bacteria. I did send off a culture. Patient was given Pyridium. She has cephalexin that she started this evening at home but only 3 days worth and I will write her a prescription for 7 days. Patient advised to follow-up with primary care physician on-call for no doc within next 3 to 5 days. She is to return if abdominal pain, fever, vomiting, or condition should worsen anyway. Lab Data Attestation: I reviewed the patient's lab results. Labs: Laboratory Results - last 24 hr 06/26/23 00:12 Urine Color Yellow Urine Clarity Clear Urine pH 5.0 Ur Specific [place] 1.025 Urine Protein 15 H Urine Glucose (UA) Normal Urine Ketones Negative Urine Occult Blood Negative Urine Nitrite Negative Urine Bilirubin Negative Urine Urobilinogen Normal Ur Leukocyte Esterase 25 H Urine RBC 0 SEEN Urine WBC 10-25 SEEN Ur Squamous Epith Cells 0 SEEN Ur Transition Epith Cell 0-5 SEEN Urine Bacteria 2+ Urine Mucus 0 SEEN Discharge Plan Triage Chief Complaint: Complaint ED Provider: Batsheva Zafar Dx/Rx/DC Orders Clinical Impression: UTI (urinary tract infection) Instructions: ED Cystitis Female Adult Prescriptions: New cephalexin [cephalexin] 500 mg capsule 500 mg PO Q6 Qty: 28 0RF phenazopyridine [Pyridium] 200 mg tablet 200 mg PO TID Qty: 6 0RF No Action acetazolamide 500 mg capsule, extended release 500 mg PO BID Primary Care Provider: Care Physician,No Primary Referrals: Leticia Ren MD [Med Staff - Active Staff] - 3-5 Days Care Physician,No Primary [Primary Care Provider] - Disposition Disposition: Home, Self Care
[2023-06-26 00:19] LABS: Color, Urine Yellow (Yellow); Glucose, Dipstick Normal (Normal); Ketone-Dipstick Negative (Negative); Leukocyte Esterase-Dipstick 25 /ul (Negative); Mucous, Urine 0 SEEN /hpf (<or=2+); Nitrite-Dipstick Negative (Negative); Occult Blood-Urine Negative /ul (Negative); Protein-Dipstick 15 mg/dl (Negative); Red Blood Cells-Urine 0 SEEN /hpf (0-5); Specific Gravity, Urine 1.025 (1.002-1.030); Squamous Epithelial Cells - UA 0 SEEN /hpf (5-10); Urine Bilirubin Dipstick Negative (Negative); Urine Clarity Clear (Clear); Urine Urobilinogen Normal (Normal)
[2023-06-26 00:37] LABS: Bacteria 2+ /hpf (None Seen); Transitional Epithelial - Ur 0-5 SEEN /hpf (0-5); White Blood Cells 10-25 SEEN /hpf (0-5)
[2023-06-26] MEDS: Phenazopyridine 95 MG Tablet 190 MG PO (01:09)
== END 2023-06-26 01:29 | disposition home or self-care (01) ==
PROVIDERS: Emergency Provider Emergency Medicine; Visit Provider Emergency Medicine
DX: N39.0 Urinary tract infection, site not specified (principal)
CPT/HCPCS: 81001; 87086; 87088; 87186; 99282

== ENCOUNTER 2023-07-10 08:46 | Emergency (ER) | payer MEDICAID, SELFPAY ==
[2023-07-10 08:47] VITALS: BP 136/88; PULSE 70; RESP 18; TEMP 36.4; O2SAT 100; BMI 37.2
--- NOTE | 2023-07-10 09:03 | CT_ITS ---
STUDY: CT ABDOMEN AND PELVIS WITHOUT CONTRAST REASON FOR EXAM: Female, 37 years old. Right-sided abdominal pain. History of kidney stones. RADIATION DOSAGE (If Supplied By Facility): CTDIvol = ( 17.57 ) mGy, DLP = ( 928.5 ) mGycm TECHNIQUE: Transaxial images were obtained from the dome of the diaphragm to the symphysis pubis without oral contrast, and without intravenous contrast. Sagittal and coronal images were reconstructed. Individualized dose optimization techniques were used for this CT. COMPARISON: Comparison is made with prior study of May 28, 2023. FINDINGS: The visualized lung bases are unremarkable. The visualized portions of the heart are within normal limits. Normal liver. There are surgical clips in the gallbladder fossa consistent with a prior cholecystectomy. Normal spleen. Normal pancreas. Normal bilateral adrenal glands. Stable tiny punctate right intrarenal calculi. Nonobstructive. Normal left kidney. Normal visualized stomach. Normal small intestine. Normal colon. The appendix is visualized and appears normal. Normal abdominal aorta. Normal inferior vena cava. Normal retroperitoneum. Normal urinary bladder. Enlarged fibroid uterus. There is evidence of prior umbilical hernia repair. Normal osseous structures. CT/Abdomen/Pelvis without Cont IMPRESSION: Enlarged fibroid uterus. No evidence of ureteral obstruction at this time. Electronically Signed: Molina Luis MD at 10:21 EDT ,
--- NOTE | 2023-07-10 09:04 | EX.ED.DYSGE1 ---
HPI History of Present Illness Chief Complaint: Abd Pain Informant: patient Narrative Narrative: 37-year-old female presenting to the emergency room with right-sided abdominal pain. Patient states the pain began intermittently since last evening around 2100 hrs. She states its been constant for the past hour and a half. The patient denies any nausea vomiting or diarrhea. She states that she has a history of pseudotumor cerebri and is supposed to be taking acetazolamide. She has not been taking it as prescribed. She states she took 1 last night to help relieve some pressure in her head but states that she does not feel like she is urinating as much as she should be. She was recently treated for UTI. She denies any fevers or dysuria. No hematuria. She has had prior kidney stone. She has had a cholecystectomy. [facility] Medical History Bruising Cardiology follow-up encounter Easy bruising Generalized anxiety disorder Heartburn History of echocardiogram History of IBS Kidney stones Left ureteral calculus Major depressive disorder, recurrent severe without psychotic features Migraines Non-smoker Ovarian cyst PTSD (post-traumatic stress disorder) Shortness of breath on exertion Home Medications acetazolamide 500 mg capsule,extended release 500 mg PO BID PSEUDOTUMOR 06/23/21 [History Last Taken Unknown] cephalexin 500 mg capsule 500 mg PO Q6 #28 CAPSULES 06/26/23 [Rx Last Taken Unknown] phenazopyridine 200 mg tablet (Pyridium) 200 mg PO TID 6 doses #6 tabs 06/26/23 [Rx Last Taken Unknown] Allergy/AdvReac Type Severity Reaction Status Date / Time adhesive tape AdvReac Other Verified 07/10/23 08:47 Surgical History History of section History of cholecystectomy History of umbilical hernia repair History of urethral stent Hx of cystoscopy Hx of dilation and curettage Hx of tympanostomy tubes Social History household members: spouse Smoking Status: Never smoker ROS ROS ED Constitutional Constitutional ED: Denies chills, fever(s) or weight loss Eyes Eyes: Denies change in vision or diplopia ENT ENT ED: Denies ear pain, rhinorrhea or sore throat Cardiovascular Cardiovascular: Denies chest pain, orthopnea, palpitations or racing heartbeat Respiratory/Chest Respiratory/Chest: Denies cough, dyspnea or orthopnea Gastrointestinal Gastrointestinal: Reports abdominal pain; Denies diarrhea, nausea or vomiting Genitourinary Genitourinary ED: Denies dysuria, hematuria or urinary frequency Musculoskeletal Musculoskeletal: Denies arthralgias or myalgias Integumentary Denies abscess or rash Neurologic Neurologic: Denies headache(s) or weakness Psychiatric Psychiatric: Denies anxiety, depression, suicidal ideation or suicidal thoughts Endocrine Endocrinology: Denies polydipsia, polyphagia or polyuria Allergic/Immunologic Allergic/Immunologic ED: Denies mouth swelling, tongue swelling or urticaria EXAM Physical Exam Const Vital Signs: 07/10/23 08:47 Temperature 97.6 F L Temperature Source Temporal Pulse Rate 70 Respiratory Rate 18 Blood Pressure 136/88 H Blood Pressure Mean 104 Pulse Ox 100 Oxygen Delivery Method Room Air Positive well nourished, well developed and obese General Appearance ED: well developed Nutritional Appearance: obese HEENT Reports normocephalic, head/scalp atraumatic and moist mucous membranes Eyes PERRL and EOMs intact bilaterally Neck no lymphadenopathy, supple and no JVD Resp normal respiratory effort and clear to auscultation bilaterally Cardio regular rate, regular rhythm and no murmurs GI normal to inspection, nondistended, normoactive bowel sounds and non-tender Palpation: soft Back/Spine no CVA tenderness and normal ROM Extremity normal to inspection General Extremety ED: Negative for edema General Extremity: Negative for edema Neuro oriented x3 and CN's II-XII intact bilaterally Sensorium / Orientation: alert Motor Exam: strength 5/5 throughout Psych mental status grossly normal Mood & Affect: Negative for depressed or tearful Skin no rashes or lesions noted and no wounds MDM MDM MDM Narrative Medical decision making narrative: White count is normal at 8.6 hemoglobin 12.9 platelet count of 331. BMP shows a glucose of 92 and a creatinine 0.84. Urine is shows 0-5 squamous cells 1+ bacteria 2+ sediment negative nitrates negative leukocyte esterase CT of the abdomen pelvis demonstrated a fibroid of the uterus. Upon my review there is some increased stool in the lower ascending colon. I do not see any evidence of obstructive uropathy/ureterolithiasis. Patient received a dose of Toradol for pain. At this point I am not seeing anything that we need to surgically intervene on or admit to the hospital. I would recommend commend fluid hydration and we can try a bottle of magnesium citrate. Lab Data Attestation: I reviewed the patient's lab results. Labs: Laboratory Results - last 24 hr 07/10/23 07/10/23 09:10 09:36 WBC 8.6 RBC 5.15 Hgb 12.9 Hct 40.8 MCV 79.2 L MCH 25.0 L MCHC 31.6 L RDW Std Deviation 41.0 RDW Coeff of [place] 14.3 Plt Count 331 MPV 9.7 Immature Gran % (Auto) 0.300 Neut % (Auto) 64.6 Lymph % (Auto) 25.9 [place] % (Auto) 6.4 Eos % (Auto) 2.1 Baso % (Auto) 0.7 Absolute Neuts (auto) 5.5 Absolute Lymphs (auto) 2.22 Nucleated RBC % 0 Sodium 141 Potassium 3.9 Chloride 114 H Carbon Dioxide 22.0 Anion Gap 5 BUN 11 Creatinine 0.84 Estim Creat Clear Calc 87.51 Est GFR (MDRD) Af Amer 99 Est GFR (MDRD) Non-Af 82 BUN/Creatinine Ratio 13.2 Glucose 92 Calcium 8.3 L Urine Color Yellow Urine Clarity Sl. Cloudy Urine pH 8.0 Ur Specific [place] 1.010 Urine Protein 15 H Urine Glucose (UA) Normal Urine Ketones Negative Urine Occult Blood Negative Urine Nitrite Negative Urine Bilirubin Negative Urine Urobilinogen Normal Ur Leukocyte Esterase Negative Urine RBC 0 SEEN Urine WBC 0 SEEN Ur Squamous Epith Cells 0-5 SEEN Amorphous Sediment 2+ Urine Bacteria 1+ Urine Mucus 0 SEEN Radiography Diagnostic Testing: Clinical Impression(s) from Imaging Studies Abdomen/Pelvis CT 07/10/23 09:03 IMPRESSION: Enlarged fibroid uterus. No evidence of ureteral obstruction at this time. Electronically Signed: Molina Luis MD at 10:21 EDT , Discharge Plan Triage Chief Complaint: Abd Pain ED Provider: Marquez Parekh Dx/Rx/DC Orders Prescriptions: No Action acetazolamide 500 mg capsule, extended release 500 mg PO BID cephalexin [cephalexin] 500 mg capsule 500 mg PO Q6 Qty: 28 0RF phenazopyridine [Pyridium] 200 mg tablet 200 mg PO TID Qty: 6 0RF Primary Care Provider: Care Physician,No Primary Referrals: Care Physician,No Primary [Primary Care Provider] -
[2023-07-10] MEDS: Ketorolac 30 MG/ML Syringe IV (09:14)
[2023-07-10 09:24] LABS: Absolute Lymphocyte Count 2.22 X10^3/uL (0.83-4.51); Absolute Neutrophil Count 5.5 X10^3/uL (2.0-7.7); Basophil# 0.06 X10^3/uL; Basophil% 0.7 % (0-1); Eosinophil# 0.18 X10^3/uL; Eosinophils% 2.1 % (0-5); Hematocrit 40.8 % (37-47); Hemoglobin 12.9 g/dL (12.0-15.0); Lymphocyte # 2.22 X10^3/ul (0.83-4.51); Lymphocyte % 25.9 % (19-41); Mean Corp Hgb Conc 31.6 g/dL (32-36); Mean Corpuscular Volume 79.2 fL (81-99); Mean Platelet Vol. 9.7 fl (6.2-12.0); Monocyte# 0.55 X10^3/uL; Monocyte% 6.4 % (0-10); NRBC Flagged by Analyzer 0 % (0-5); Neutrophil # 5.54 X10^3/uL (2.7-7.7); Neutrophil % 64.6 % (47-70); Platelet Count 331 K/mm3 (150-450); RBC Distribution Width CV 14.3 % (11.6-14.6); Red Blood Count 5.15 M/mm3 (4.2-5.4); White Blood Count 8.6 K/mm3 (4.4-11.0)
[2023-07-10 09:35] LABS: Anion Gap 5 (5-15); BUN 11 mg/dL (7-18); BUN/Creat Ratio 13.2 RATIO (10-20); Calcium,Total 8.3 mg/dL (8.5-10.1); Chloride 114 mmol/L (98-107); Creatinine, Serum 0.84 mg/dL (0.55-1.02); EST Glomerular Filtration Rate 82 mL/min (>60); Est Glom Filt Rate - Afr Amer 99 mL/min (>60); Estimated Creatinine Clearance 87.51 ml/min; Glucose 92 mg/dL (74-106); Potassium 3.9 mmol/L (3.5-5.1); Sodium Level 141 mmol/L (136-145)
[2023-07-10 09:42] LABS: Mucous, Urine 0 SEEN /hpf (<or=2+); Red Blood Cells-Urine 0 SEEN /hpf (0-5); White Blood Cells 0 SEEN /hpf (0-5)
[2023-07-10 09:44] LABS: Color, Urine Yellow (Yellow); Glucose, Dipstick Normal (Normal); Ketone-Dipstick Negative (Negative); Leukocyte Esterase-Dipstick Negative /ul (Negative); Nitrite-Dipstick Negative (Negative); Occult Blood-Urine Negative /ul (Negative); Protein-Dipstick 15 mg/dl (Negative); Urine Bilirubin Dipstick Negative (Negative); Urine Clarity Sl. Cloudy (Clear); Urine Urobilinogen Normal (Normal)
[2023-07-10 09:49] LABS: Amorphous Sediment 2+; Bacteria 1+ /hpf (None Seen); Squamous Epithelial Cells - UA 0-5 SEEN /hpf (5-10)
[2023-07-10] MEDS: Magnesium Citrate 300 ML PO (11:15)
== END 2023-07-10 11:19 | disposition home or self-care (01) ==
PROVIDERS: Emergency Provider Emergency Medicine; Visit Provider Emergency Medicine
DX: R10.9 Unspecified abdominal pain (principal); Z90.49 Acquired absence of other specified parts of digestive tract
CPT/HCPCS: 74176; 80048; 81001; 85025; 96374; 99283; A4216

== ENCOUNTER 2023-07-21 13:49 | Emergency (ER) | payer MEDICAID, SELFPAY ==
[2023-07-21 13:53] VITALS: BP 155/94; PULSE 82; RESP 16; TEMP 36.6; O2SAT 99; BMI 38.0
--- NOTE | 2023-07-21 14:12 | CT_ITS ---
STUDY: CT ABDOMEN AND PELVIS WITHOUT CONTRAST REASON FOR EXAM: Female, 37 years old. back/renal pain RADIATION DOSAGE (If Supplied By Facility): CTDIvol = ( 18.35 ) mGy, DLP = ( 949.04 ) mGycm TECHNIQUE: Transaxial images were obtained from the dome of the diaphragm to the symphysis pubis without oral contrast, and without intravenous contrast. Sagittal and coronal images were reconstructed. Individualized dose optimization techniques were used for this CT. COMPARISON: July 10, 2023 FINDINGS: The visualized lung bases are unremarkable. The visualized portions of the heart are within normal limits. Normal liver. Status post cholecystectomy. No significant dilatation of the extrahepatic biliary system. Normal spleen. Normal pancreas. Normal bilateral adrenal glands. Normal right kidney. Normal left kidney. Normal visualized stomach. Normal small intestine. Normal colon. The appendix is visualized and appears normal. Normal abdominal aorta. Normal inferior vena cava. Normal retroperitoneum. Normal urinary bladder. Normal abdominal wall. Normal osseous structures. CT/Abdomen/Pelvis without Cont IMPRESSION: No acute pathology of the abdomen and pelvis. Electronically Signed: Gary Hatch DO at 16:54 EST Reading Location ID and State: [facility] / [place] Tel [phone], Service support ,
--- NOTE | 2023-07-21 14:13 | EDS_ITS ---
HPI History of Present Illness Chief Complaint: Back Informant: patient Narrative Narrative: Patient presents secondary to back pain. Patient states yesterday she was kicked by a cow in both legs. She had some soreness but was able to get around. Today she was moving 50 pound feed bags. She had gradual onset of back tightness and pain. After driving home she had difficulty ambulating. She states she does feel the pain goes from her back all the way down both legs to her ankles. Patient has a history of pseudotumor cerebri and has had multiple lumbar punctures. She states she has had chronic back pain from this. [facility] Medical History Bruising Cardiology follow-up encounter Easy bruising Generalized anxiety disorder Heartburn History of echocardiogram History of IBS Kidney stones Left ureteral calculus Major depressive disorder, recurrent severe without psychotic features Migraines Non-smoker Ovarian cyst PTSD (post-traumatic stress disorder) Shortness of breath on exertion Home Medications acetazolamide 500 mg capsule,extended release 500 mg PO BID PSEUDOTUMOR 06/23/21 [History Last Taken Unknown] cephalexin 500 mg capsule 500 mg PO Q6 #28 CAPSULES 06/26/23 [Rx Last Taken Unknown] phenazopyridine 200 mg tablet (Pyridium) 200 mg PO TID 6 doses #6 tabs 06/26/23 [Rx Last Taken Unknown] cyclobenzaprine 10 mg tablet 10 mg PO TID PRN Muscle Spasm #20 TABLETS 07/21/23 [Rx Last Taken Unknown] hydrocodone-acetaminophen 5-325mg 5mg-325mg 1 tab PO Q6H PRN PRN Pain 3 days #10 TABLETS 07/21/23 [Rx Last Taken Unknown] naproxen 500 mg tablet (Naprosyn) 500 mg PO BID PRN pain #20 tabs 07/21/23 [Rx Last Taken Unknown] Allergy/AdvReac Type Severity Reaction Status Date / Time adhesive tape AdvReac Other Verified 07/21/23 13:56 Surgical History History of section History of cholecystectomy History of umbilical hernia repair History of urethral stent Hx of cystoscopy Hx of dilation and curettage Hx of tympanostomy tubes Social History household members: spouse Smoking Status: Never smoker ROS ROS ED Constitutional Constitutional ED: Denies chills or fever(s) Eyes Eyes: Denies change in vision ENT ENT ED: Denies rhinorrhea or sore throat Cardiovascular Cardiovascular: Denies chest pain Respiratory/Chest Respiratory/Chest: Denies cough or dyspnea Gastrointestinal Gastrointestinal: Denies abdominal pain, nausea or vomiting Genitourinary Genitourinary ED: Denies dysuria Musculoskeletal Musculoskeletal: Reports back pain and extremity pain Integumentary Denies Abrasions or rash Neurologic Neurologic: Denies headache(s) or weakness Allergic/Immunologic Allergic/Immunologic ED: Denies lip swelling or urticaria EXAM Physical Exam Const Vital Signs: 07/21/23 13:53 Temperature 97.8 F Temperature Source Oral Pulse Rate 82 Respiratory Rate 16 Blood Pressure 155/94 H Blood Pressure Mean 114 Pulse Ox 99 Oxygen Delivery Method Room Air Positive well nourished and well developed General Appearance ED: well developed HEENT Reports moist mucous membranes Eyes EOMs intact bilaterally General Eye ED: Yes other Other Details: Left pupil chronically dilated from pseudotumor cerebri. Resp normal respiratory effort and clear to auscultation bilaterally Cardio regular rate and regular rhythm GI soft to palpation and non-tender Extremity Extremity Narrative: Old appearing ecchymosis noted over the anterior left thigh and proximal right lower leg. Areas are nontender to palpation. Strong distal pulses. Good strength and sensation noted in the lower extremities. Neuro oriented x3 Psych mental status grossly normal MDM MDM MDM Narrative Medical decision making narrative: IV line established. Patient given analgesics and Zofran for nausea. Labwork obtained to evaluate for leukocytosis, anemia, and electrolyte derangement. CT flank will be obtained to evaluate both her spine as well as renal area as she is complaining of pain across this region. History & Record Review Discussion w/independent historian: Patient Lab Data Attestation: I reviewed the patient's lab results. Labs: Laboratory Results - last 24 hr 07/21/23 07/21/23 15:05 15:10 WBC 10.2 RBC 5.01 Hgb 12.5 Hct 39.8 MCV 79.4 L MCH 25.0 L MCHC 31.4 L RDW Std Deviation 40.9 RDW Coeff of [place] 14.2 Plt Count 332 MPV 9.5 Immature Gran % (Auto) 0.200 Neut % (Auto) 61.4 Lymph % (Auto) 28.0 [place] % (Auto) 8.3 Eos % (Auto) 1.3 Baso % (Auto) 0.8 Absolute Neuts (auto) 6.3 Absolute Lymphs (auto) 2.86 Nucleated RBC % 0 Sodium 143 Potassium 3.7 Chloride 117 H Carbon Dioxide 23.0 Anion Gap 3 L BUN 9 Creatinine 0.98 Estim Creat Clear Calc 75.01 Est GFR (MDRD) Af Amer 83 Est GFR (MDRD) Non-Af 69 BUN/Creatinine Ratio 9.2 L Glucose 97 Calcium 8.4 L Serum , Qual NEGATIVE Urine Color Straw Urine Clarity Clear Urine pH 6.5 Ur Specific [place] 1.010 Urine Protein Negative Urine Glucose (UA) Normal Urine Ketones Negative Urine Occult Blood Negative Urine Nitrite Negative Urine Bilirubin Negative Urine Urobilinogen Normal Ur Leukocyte Esterase Negative Urine RBC 0 SEEN Urine WBC 0 SEEN Ur Squamous Epith Cells 0 SEEN Urine Bacteria 0 SEEN Urine Mucus 0 SEEN Radiography Diagnostic Testing: Clinical Impression(s) from Imaging Studies Abdomen/Pelvis CT 07/21/23 14:12 IMPRESSION: No acute pathology of the abdomen and pelvis. Electronically Signed: Gary Hatch DO at 16:54 EST Reading Location ID and State: [facility] / [place] Tel [phone], Service support , Treatment and Re-Evaluation Narrative: CBC was a white count of 10.2 with a hemoglobin of 12.5. Differential is unremarkable. Chemistry studies unremarkable. Urinalysis reveals no evidence of infection or blood. test is negative. CT of the flank reveals no acute pathology. Patient was able to get up to the bathroom to provide a urine sample, but states she was still having pain. She states she feels like her IV pain medicine is wearing off. She will be given [place] and Flexeril p.o. I will write her prescription for [place], Flexeril, and Naprosyn. Return instructions provided. Discharge Plan Triage Chief Complaint: Back ED Provider: Dasha Liang Dx/Rx/DC Orders Clinical Impression: Lumbar strain, Muscle spasm Instructions: ED Back Sprain/Strain, ED Muscle Spasm Prescriptions: New naproxen [Naprosyn] 500 mg tablet 500 mg PO BID PRN (Reason: pain) Qty: 20 0RF hydrocodone-acetaminophen 5-325 mg tablet 1 tab PO Q6H PRN PRN (Reason: Pain) 3 Days Qty: 10 0RF cyclobenzaprine 10 mg tablet 10 mg PO TID PRN (Reason: Muscle Spasm) Qty: 20 0RF No Action acetazolamide 500 mg capsule, extended release 500 mg PO BID cephalexin [cephalexin] 500 mg capsule 500 mg PO Q6 Qty: 28 0RF phenazopyridine [Pyridium] 200 mg tablet 200 mg PO TID Qty: 6 0RF Primary Care Provider: Care Physician,No Primary Referrals: Jamal Brock MD [Med Staff - Active Staff] - 1-2 Weeks Care Physician,No Primary [Primary Care Provider] - Disposition Disposition: Home, Self Care
[2023-07-21] MEDS: Morphine 4 MG/ML Syringe IV (15:06)
[2023-07-21] MEDS: Ondansetron 4 MG/2 ML Vial IV (15:06)
[2023-07-21] MEDS: Ketorolac 30 MG/ML Syringe IV (15:06)
[2023-07-21 15:09] LABS: Bacteria 0 SEEN /hpf (None Seen); Mucous, Urine 0 SEEN /hpf (<or=2+); Red Blood Cells-Urine 0 SEEN /hpf (0-5); Squamous Epithelial Cells - UA 0 SEEN /hpf (5-10); White Blood Cells 0 SEEN /hpf (0-5)
[2023-07-21 15:15] LABS: Color, Urine Straw (Yellow); Glucose, Dipstick Normal (Normal); Ketone-Dipstick Negative (Negative); Leukocyte Esterase-Dipstick Negative /ul (Negative); Nitrite-Dipstick Negative (Negative); Occult Blood-Urine Negative /ul (Negative); Protein-Dipstick Negative (Negative); Urine Bilirubin Dipstick Negative (Negative); Urine Clarity Clear (Clear); Urine Urobilinogen Normal (Normal); Urine pH 6.5 (5.0 - 8.0)
[2023-07-21 15:17] LABS: Absolute Lymphocyte Count 2.86 X10^3/uL (0.83-4.51); Absolute Neutrophil Count 6.3 X10^3/uL (2.0-7.7); Basophil# 0.08 X10^3/uL; Basophil% 0.8 % (0-1); Eosinophil# 0.13 X10^3/uL; Eosinophils% 1.3 % (0-5); Hematocrit 39.8 % (37-47); Hemoglobin 12.5 g/dL (12.0-15.0); Lymphocyte # 2.86 X10^3/ul (0.83-4.51); Mean Corp Hgb Conc 31.4 g/dL (32-36); Mean Corpuscular Volume 79.4 fL (81-99); Mean Platelet Vol. 9.5 fl (6.2-12.0); Monocyte# 0.85 X10^3/uL; Monocyte% 8.3 % (0-10); NRBC Flagged by Analyzer 0 % (0-5); Neutrophil # 6.27 X10^3/uL (2.7-7.7); Neutrophil % 61.4 % (47-70); Platelet Count 332 K/mm3 (150-450); RBC Distribution Width CV 14.2 % (11.6-14.6); RBC Distribution Width SD 40.9 fl (35.1-43.9); Red Blood Count 5.01 M/mm3 (4.2-5.4); White Blood Count 10.2 K/mm3 (4.4-11.0)
[2023-07-21 15:27] LABS: Internal QC Validated? YES +Cl - CLEAR BKGD; Pregnancy, Serum, hCG Quali. NEGATIVE Negative; Record Kit Lot#, Serum Preg. 667200
[2023-07-21 15:29] LABS: Anion Gap 3 (5-15); BUN 9 mg/dL (7-18); BUN/Creat Ratio 9.2 RATIO (10-20); Calcium,Total 8.4 mg/dL (8.5-10.1); Chloride 117 mmol/L (98-107); Creatinine, Serum 0.98 mg/dL (0.55-1.02); EST Glomerular Filtration Rate 69 mL/min (>60); Est Glom Filt Rate - Afr Amer 83 mL/min (>60); Estimated Creatinine Clearance 75.01 ml/min; Glucose 97 mg/dL (74-106); Potassium 3.7 mmol/L (3.5-5.1); Sodium Level 143 mmol/L (136-145)
[2023-07-21 17:50] VITALS: BP 135/78; PULSE 66; RESP 16; O2SAT 99
[2023-07-21] MEDS: cycloBENZAPRine HCl 10 MG Tablet PO (17:58)
[2023-07-21] MEDS: HYDROcodone Bitartrate/Apap 5/325 Tablet PO (17:58)
== END 2023-07-21 18:00 | disposition home or self-care (01) ==
PROVIDERS: Emergency Provider Emergency Medicine; Visit Provider Emergency Medicine
DX: S39.012A Strain of muscle, fascia and tendon of lower back, initial encounter (principal); R11.0 Nausea; M62.838 Other muscle spasm; G89.29 Other chronic pain; X50.0XXA Overexertion from strenuous movement or load, initial encounter
CPT/HCPCS: 74176; 80048; 81001; 84703; 85025; 96374; 96375; 99285; J7030; A4216; J2405

== ENCOUNTER 2023-08-24 19:54 | Emergency (ER) | payer MEDICAID, SELFPAY ==
[2023-08-24 19:55] VITALS: BP 198/117; PULSE 105; RESP 22; TEMP 36.2; O2SAT 100; BMI 37.2
--- NOTE | 2023-08-24 20:06 | EKG12_ITS ---
Test Reason : CP/SHOULDER PAIN Blood Pressure : / mmHG Vent. Rate : 082 BPM Atrial Rate : 082 BPM P-R Int : 138 ms QRS Dur : 090 ms QT Int : 378 ms P-R-T Axes : 056 064 034 degrees QTc Int : 441 ms Normal sinus rhythm with sinus arrhythmia Normal ECG Confirmed by SUKHJINDER YOO, PETE ([id number]), index editor EMILIANO MARTINEZ ([id number]) on 08/27/2023 1:35:56 P M Referred By: EMETERIO/OLAYINKA Confirmed By:DIDIER SLAUGHTER MD
[2023-08-24 20:07] VITALS: O2SAT 97
--- NOTE | 2023-08-24 20:35 | RAD_ITS ---
INDICATION: chest pain EXAMINATION/TECHNIQUE: X-RAY - XR Chest 1 View COMPARISON: December 13, 2022 chest x-ray FINDINGS: LINES/DEVICES: None. LUNGS: Symmetric normal lung volumes. No airspace opacity or abnormal interstitial pattern. No nodule or mass. No pleural effusion or pneumothorax. MEDIASTINUM AND CARDIOVASCULAR STRUCTURES: Normal size and contour of the cardiomediastinal silhouette. No evidence of pulmonary vascular congestion. BONES AND SOFT TISSUES: No fracture or focal osseous lesion. RAD/Chest 1 View (Portable) IMPRESSION: 1. No radiographic evidence of acute cardiopulmonary disease. Electronically Signed: Maco Callahan DO at 21:32 EST ,
[2023-08-24 20:36] LABS: Absolute Lymphocyte Count 3.14 X10^3/uL (0.83-4.51); Absolute Neutrophil Count 6.1 X10^3/uL (2.0-7.7); Basophil# 0.08 X10^3/uL; Basophil% 0.8 % (0-1); Eosinophil# 0.19 X10^3/uL; Eosinophils% 1.8 % (0-5); Hematocrit 38.3 % (37-47); Lymphocyte # 3.14 X10^3/ul (0.83-4.51); Lymphocyte % 30.4 % (19-41); Mean Corp Hgb Conc 31.3 g/dL (32-36); Mean Corpuscular Hgb 25.4 pg (27.0-32.0); Mean Platelet Vol. 10.2 fl (6.2-12.0); Monocyte# 0.77 X10^3/uL; Monocyte% 7.4 % (0-10); NRBC Flagged by Analyzer 0 % (0-5); Neutrophil # 6.13 X10^3/uL (2.7-7.7); POSITIVE COUNT YES; Platelet Count 298 K/mm3 (150-450); RBC Distribution Width SD 40.9 fl (35.1-43.9); Red Blood Count 4.73 M/mm3 (4.2-5.4); White Blood Count 10.3 K/mm3 (4.4-11.0)
[2023-08-24 20:46] LABS: Internal QC Validated? YES +Cl - CLEAR BKGD; Pregnancy, Serum, hCG Quali. NEGATIVE Negative
[2023-08-24 20:50] LABS: D-Dimer Quantitative (DVT/PE) 0.29 FEU/ug/m (0.27-0.49)
[2023-08-24 20:51] VITALS: BP 174/98; PULSE 80; RESP 16; O2SAT 100
[2023-08-24 20:54] LABS: Anion Gap 6 (5-15); BUN 11 mg/dL (7-18); BUN/Creat Ratio 13.5 RATIO (10-20); Calcium,Total 8.5 mg/dL (8.5-10.1); Chloride 110 mmol/L (98-107); Creatinine, Serum 0.81 mg/dL (0.55-1.02); EST Glomerular Filtration Rate 85 mL/min (>60); Est Glom Filt Rate - Afr Amer 103 mL/min (>60); Estimated Creatinine Clearance 90.75 ml/min; Glucose 114 mg/dL (74-106); Potassium 3.3 mmol/L (3.5-5.1); Sodium Level 139 mmol/L (136-145); Troponin-I HS (w/2H Reflex) 6 pg/mL (3.0-54.0)
--- NOTE | 2023-08-24 20:57 | CT_ITS ---
INDICATION: Pain EXAMINATION: CT BRAIN - CT Head or Brain W/O Contrast Injection TECHNIQUE: Multiple axial images were obtained of the head without intravenous contrast. A radiation dose optimization technique was used for this scan. IV Contrast dosage and agent: None. COMPARISON: MRI brain May 23, 2021 FINDINGS: BRAIN PARENCHYMA: No intra- or extra-axial hemorrhage. No intracranial mass or mass effect. Chanel/white matter differentiation is maintained and there is no blurring of the basal ganglia. There is no hyperdense vessel. Posterior fossa structures are unremarkable. CSF SPACES: Appropriate for age. No hydrocephalus. Basal cisterns are patent. CALVARIUM, SKULL BASE, PARANASAL SINUSES AND MASTOID AIR CELLS: Intact calvarium and skull base. No fracture or osseous lesion. Minimal mucosal thickening inferior maxillary sinuses, decreased compared to prior MRI. Mastoid air cells and middle ears are clear. ORBITS: Both globes, extraocular muscles, optic nerves and retrobulbar fat appear unremarkable. ASPECTS Score for Acute Strokes: 10 CT/Brain/Head without Contrast IMPRESSION: Negative Brain CT without contrast. Electronically Signed: Maco Callahan DO at 22:09 EST ,
--- NOTE | 2023-08-24 21:00 | EX.ED.DYSGE1 ---
HPI History of Present Illness Chief Complaint: Chest Pain Narrative Narrative: 37-year-old female presenting with acute onset left trapezial pain. 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 She denies any direct trauma. She states that she was sitting at the farm and noticed acute pain in the left trapezius area which radiated up into her neck. She states that she now has some floaters in her vision which she has had before because she has a history of pseudotumor cerebri. She states that she gets floaters with headaches. She also has a history of migraines. She states he does not have a headache specifically but noted left shoulder pain. No specific cardiac history but states her blood pressure was elevated when she checked it at home. Otherwise healthy prior to event. No fevers or chills. No cough or shortness of breath. No nausea or vomiting. Patient does state that she could have a anxiety attack as a source. [facility] Medical History Bruising Cardiology follow-up encounter Easy bruising Generalized anxiety disorder Heartburn History of echocardiogram History of IBS Kidney stones Left ureteral calculus Major depressive disorder, recurrent severe without psychotic features Migraines Non-smoker Ovarian cyst PTSD (post-traumatic stress disorder) Shortness of breath on exertion Home Medications acetazolamide 500 mg capsule,extended release 500 mg PO BID PSEUDOTUMOR 06/23/21 [History Last Taken Unknown] cephalexin 500 mg capsule 500 mg PO Q6 #28 CAPSULES 06/26/23 [Rx Last Taken Unknown] phenazopyridine 200 mg tablet (Pyridium) 200 mg PO TID 6 doses #6 tabs 06/26/23 [Rx Last Taken Unknown] cyclobenzaprine 10 mg tablet 10 mg PO TID PRN Muscle Spasm #20 TABLETS 07/21/23 [Rx Last Taken Unknown] hydrocodone-acetaminophen 5-325mg 5mg-325mg 1 tab PO Q6H PRN PRN Pain 3 days #10 TABLETS 07/21/23 [Rx Last Taken Unknown] naproxen 500 mg tablet (Naprosyn) 500 mg PO BID PRN pain #20 tabs 07/21/23 [Rx Last Taken Unknown] Allergy/AdvReac Type Severity Reaction Status Date / Time adhesive tape AdvReac Other Verified 07/21/23 13:56 Surgical History History of section History of cholecystectomy History of umbilical hernia repair History of urethral stent Hx of cystoscopy Hx of dilation and curettage Hx of tympanostomy tubes Social History household members: spouse Smoking Status: Never smoker ROS ROS ED Constitutional Constitutional ED: Denies chills or fever(s) Eyes Eyes: Reports other Details: Visual floaters ENT ENT ED: Denies rhinorrhea or sore throat Cardiovascular Cardiovascular: Denies chest pain or palpitations Respiratory/Chest Respiratory/Chest: Denies cough, dyspnea or dyspnea on exertion Gastrointestinal Gastrointestinal: Denies abdominal pain, nausea or vomiting Genitourinary Genitourinary ED: Denies dysuria or hematuria Musculoskeletal Musculoskeletal: Denies arthralgias Integumentary Denies abscess or Abrasions Neurologic Neurologic: Reports headache(s) Psychiatric Psychiatric: Reports anxiety EXAM Physical Exam Const Vital Signs: 08/24/23 19:55 08/24/23 20:06 08/24/23 20:07 Temperature 97.2 F L Temperature Source Temporal Pulse Rate 105 H Respiratory Rate 22 H Respiratory Effort Normal Non-Labored Blood Pressure 198/117 H Blood Pressure Mean 144 Pulse Ox 100 97 Oxygen Delivery Method Room Air Room Air 08/24/23 20:51 08/24/23 22:00 08/24/23 22:55 Temperature Temperature Source Pulse Rate 80 78 79 Respiratory Rate 16 16 16 Respiratory Effort Blood Pressure 174/98 H 148/97 H 139/72 H Blood Pressure Mean 123 114 94 Pulse Ox 100 98 97 Oxygen Delivery Method Room Air Room Air Room Air Positive well nourished General Appearance ED: NAD HEENT Reports moist mucous membranes Negative for trauma Eyes PERRL and EOMs intact bilaterally Chest Wall inspection of chest normal Chest Narrative: Tenderness to palpation over left trapezius midway. Resp normal respiratory effort and clear to auscultation bilaterally Auscultation: Negative for rales or rhonchi Cardio regular rate and regular rhythm GI normal to inspection, nondistended, normoactive bowel sounds Back/Spine Back/Spine Narrative: no midline cervical spinal tenderness, deformity, step-off. There is trapezius tenderness in the left trapezius region. Neuro oriented x3, CN's II-XII intact bilaterally and no sensory deficits noted Sensorium / Orientation: alert Motor Exam: strength 5/5 throughout Psych mental status grossly normal Mood & Affect: anxious Skin no rashes or lesions noted and no wounds General Skin Exam: elasticity normal and jaundice MDM MDM MDM Narrative Medical decision making narrative: Patient presenting with acute onset left shoulder pain in the left trapezius and now developed visual floaters which she has had in the past due to pseudotumor cerebri as well as migraine headaches. Patient medicated with Reglan, Benadryl, Toradol will obtain CBC to assess white blood cell count, hemoglobin, platelets. BMP to assess renal function, electrolytes. EKG and high-sensitivity troponin rule out ACS or ischemia. Chest x-ray to rule out pneumonia. D-dimer to rule out PE. No hCG to rule out . CT brain will be obtained given the patient's headache. It is noted that the patient has unequal pupils and she states this is a chronic issue. She states this is due to pseudotumor cerebri blowing on her left pupil. CT brain negative. CBC and BMP unremarkable. High-sensitivity troponin 6. EKG on my interpretation shows a normal sinus rhythm with a ventricular 92 bpm without sign ischemic change or ectopy. hCG negative. Chest x-ray my interpretation is no acute process. The radiologist interprets this and agrees. Patient was treated for atypical headache with Reglan, Benadryl, Toradol and her headache/visual complaints are gone and her left shoulder pain is gone. At this point I feel the patient is stable for discharge. I do not believe she needs a delta troponin. This is likely musculoskeletal in her present cervical strain. Impression: 1. Atypical headache 2. Cervical strain Lab Data Attestation: I reviewed the patient's lab results. Labs: Laboratory Results - last 24 hr 08/24/23 20:20 WBC 10.3 RBC 4.73 Hgb 12.0 Hct 38.3 MCV 81.0 MCH 25.4 L MCHC 31.3 L RDW Std Deviation 40.9 RDW Coeff of Theresa 14.0 Plt Count 298 MPV 10.2 Immature Gran % (Auto) 0.300 Neut % (Auto) 87.3 H Lymph % (Auto) 30.4 [place] % (Auto) 7.4 Eos % (Auto) 1.8 Baso % (Auto) 0.8 Absolute Neuts (auto) 6.1 Absolute Lymphs (auto) 3.14 Nucleated RBC % 0 Platelet Estimate ADEQUATE Anisocytosis RARE Microcytosis RARE D-Dimer Quant (PE/DVT) 0.29 Sodium 139 Potassium 3.3 L Chloride 110 H Carbon Dioxide 23.0 Anion Gap 6 BUN 11 Creatinine 0.81 Estim Creat Clear Calc 90.75 Est GFR (MDRD) Af Amer 103 Est GFR (MDRD) Non-Af 85 BUN/Creatinine Ratio 13.5 Glucose 114 H Calcium 8.5 Troponin I High Sens 6 Serum , Qual NEGATIVE Radiography Diagnostic Testing: Clinical Impression(s) from Imaging Studies Chest X-Ray 08/24/23 20:35 IMPRESSION: 1. No radiographic evidence of acute cardiopulmonary disease. Electronically Signed: Maco Callahan DO at 21:32 EST , Brain CT 08/24/23 20:57 IMPRESSION: Negative Brain CT without contrast. Electronically Signed: Maco Callahan DO at 22:09 EST , Discharge Plan Triage Chief Complaint: Chest Pain ED Provider: Arsalan Tate Dx/Rx/DC Orders Instructions: ED Chest Pain, Noncardiac Prescriptions: No Action acetazolamide 500 mg capsule, extended release 500 mg PO BID cephalexin [cephalexin] 500 mg capsule 500 mg PO Q6 Qty: 28 0RF phenazopyridine [Pyridium] 200 mg tablet 200 mg PO TID Qty: 6 0RF naproxen [Naprosyn] 500 mg tablet 500 mg PO BID PRN (Reason: pain) Qty: 20 0RF hydrocodone-acetaminophen 5-325 mg tablet 1 tab PO Q6H PRN PRN (Reason: Pain) 3 Days Qty: 10 0RF cyclobenzaprine 10 mg tablet 10 mg PO TID PRN (Reason: Muscle Spasm) Qty: 20 0RF Primary Care Provider: Care Physician,No Primary Referrals: Care Physician,No Primary [Primary Care Provider] - Disposition Disposition: Home, Self Care
[2023-08-24 21:05] LABS: Differential Indicated SCAN CRITERIA MET
[2023-08-24 21:06] LABS: Neutrophil % 87.3 % (47-70)
[2023-08-24 21:14] LABS: Anisocytosis RARE; Microcytosis RARE; Platelet Estimate ADEQUATE (ADEQ)
[2023-08-24] MEDS: 0.9% Normal Saline (1000mL) 1,000 ML 999 ML IV (21:43)
[2023-08-24] MEDS: Ketorolac 15 MG/ML Vial IV (21:44)
[2023-08-24] MEDS: Metoclopramide 10 MG/2 ML Vial IV (21:44)
[2023-08-24] MEDS: DiphenhydrAMINE 50 MG/ML Syringe 25 MG IV (21:44)
[2023-08-24 22:00] VITALS: BP 148/97; PULSE 78; RESP 16; O2SAT 98
[2023-08-24 22:31] LABS: Reflex Troponin-HS? (from REC) Y
--- NOTE | 2023-08-24 22:54 | NURSING ---
Poked pt 2 times to try and get 2nd trop. Pt refuses to be poked again. aware.
[2023-08-24 22:55] VITALS: BP 139/72; PULSE 79; RESP 16; O2SAT 97
[2023-08-24 23:15] VITALS: BP 146/90; PULSE 87; RESP 16; TEMP 36.7
== END 2023-08-24 23:23 | disposition home or self-care (01) ==
PROVIDERS: Emergency Provider Student in an Organized Health Care Education/Training Program; Visit Provider Student in an Organized Health Care Education/Training Program
DX: S16.1XXA Strain of muscle, fascia and tendon at neck level, initial encounter (principal); F32.2 Major depressive disorder, single episode, severe without psychotic features; G93.2 Benign intracranial hypertension; M25.512 Pain in left shoulder; G44.89 Other headache syndrome; F41.1 Generalized anxiety disorder; K58.9 Irritable bowel syndrome, unspecified; F43.10 Post-traumatic stress disorder, unspecified; R07.89 Other chest pain; Z79.899 Other long term (current) drug therapy; X50.0XXA Overexertion from strenuous movement or load, initial encounter; Y92.79 Other farm location as the place of occurrence of the external cause
CPT/HCPCS: 70450; 71045; 80048; 84484; 84703; 85025; 85379; 93005; 96361; 96374; 96375; 99285; J7030; A4216

== ENCOUNTER 2023-10-02 15:28 | Emergency (ER) | payer MEDICAID, SELFPAY ==
[2023-10-02 15:30] VITALS: BP 159/113; PULSE 92; RESP 14; TEMP 35.9; O2SAT 98
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
[2023-10-02 16:31] LABS: Absolute Lymphocyte Count 2.58 X10^3/uL (0.83-4.51); Absolute Neutrophil Count 8.5 X10^3/uL (2.0-7.7); Basophil# 0.06 X10^3/uL; Basophil% 0.5 % (0-1); Eosinophil# 0.11 X10^3/uL; Eosinophils% 0.9 % (0-5); Hemoglobin 12.8 g/dL (12.0-15.0); Lymphocyte # 2.58 X10^3/ul (0.83-4.51); Lymphocyte % 21.7 % (19-41); Mean Corpuscular Volume 78.3 fL (81-99); Mean Platelet Vol. 9.4 fl (6.2-12.0); Monocyte# 0.57 X10^3/uL; Monocyte% 4.8 % (0-10); NRBC Flagged by Analyzer 0 % (0-5); Neutrophil # 8.53 X10^3/uL (2.7-7.7); Neutrophil % 71.8 % (47-70); Platelet Count 336 K/mm3 (150-450); RBC Distribution Width SD 39.7 fl (35.1-43.9); Red Blood Count 5.11 M/mm3 (4.2-5.4); White Blood Count 11.9 K/mm3 (4.4-11.0)
--- OUTSIDE RECORDS SUMMARY | 2023-10-02 16:39 | XMS RPT_ITS | CCD ---
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 by mouth every 6 hours as needed. FAMILY HISTORY Adopted: Yes Problem Relation Age of Onset Cancer Maternal Aunt Social History Tobacco Use Smoking status: Never Smokeless tobacco: Never Vaping Use Vaping Use: Never used Substance Use Topics Alcohol use: Yes Comment: very rare Drug use: No Objective BP 160/94 Pulse 71 Ht 167.6 cm (5' 6 ) Wt 101.3 kg (223 lb 5.2 oz) LMP 09/13/2023 BMI 36.05 kg/m? BP 146/102 (BP Site: Left Arm, BP Position: Sitting, BP Cuff Size: Large Adult) Pulse 71 Ht 167.6 cm (5' 6 ) Wt 101.3 kg (223 lb 5.2 oz) LMP 09/13/2023 BMI 36.05 kg/m? Physical Exam Vitals and nursing note reviewed. Constitutional: Appearance: She is well-developed. She is obese. She is not ill-appearing. Neck: Thyroid: No thyromegaly. Cardiovascular: Rate and Rhythm: Normal rate and regular rhythm. Heart sounds: Normal heart sounds. Pulmonary: Effort: Pulmonary effort is normal. Breath sounds: Normal breath sounds. Lymphadenopathy: Cervical: No cervical adenopathy. Skin: General: Skin is warm and dry. Neurological: Mental Status: She is alert and oriented to person, place, and time. Psychiatric: Mood and Affect: Affect is flat. Assessment and Plan 1. Hypertension, unspecified type Start lisinopril. Purchase upper arm BP cuff and monitor at home, educated on correct way to measure. Discussed that medication must be discontinued if she gets . Encouraged regular exercise, weight loss. Return in 1 month to re-evaluate, bring list of home BP readings. - (more content not included)... [facility] 05-29-2023 Note ORIGINAL HISTORY: Pelvic pain, ovarian tumor COMPARISON: 12 February 2023 FINDINGS: The uterus measures 9.8 cm in length. There is a 7 leading the endometrial stripe. There are uterine fibroids, the largest measuring about 2.4 cm in diameter. The ovaries are unremarkable in appearance, with normal Doppler waveforms. There is no free fluid. IMPRESSION: Unremarkable examination. A previously seen right adnexal lesion is not identified here. Interpreted by: Sedrick Francisco MD Preliminary Report By: Sedrick Francisco MD Electronically signed By Sedrick Francisco MD Dictated Date: 05/29/2023 3:58:28 PM Prelim Date: 05/29/2023 3:59:47 PM Sign Date: 05/29/2023 3:59:47 PM Ordering Provider: [facility] 05-12-2023 Note HNO ID: [id number] Author: Rc Grimm APRN.MATERIAL STRESS TESTER Service: ? Author Type: Nurse Practitioner Type: Progress Notes Filed: 05/12/2023 2:24 PM Note Text: Subjective HPI Nontoxic-appearing female presents urgent care chief complaint sore on lips and tongue. Duration of symptoms 3 days. Associated symptoms listed above. Patient states has had sore similar to this but come and go throughout her life. Has not use any OTC medications recently. Did use Blistex yesterday and this did help. Denies any significant pain currently. Denies any fever body aches chills productive cough chest pain shortness of breath pleuritic pain hemoptysis nausea vomiting abdominal pain change in bowel or bladder habits. Past medical history prescription medication use and allergies reviewed. 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 PAST SURGICAL HISTORY Procedure Laterality Date CHOLECYSTECTOMY 2010 COLONOSCOPY FLX DX W/COLLJ SPEC WHEN PFRMD 07/29/2018 Colonoscopy ECTOPIC - TREATMENT 02/12/2023 ESOPHAGOGASTRODUODENOSCOPY TRANSORAL DIAGNOSTIC 07/29/2018 EGD MYRINGOTOMY ASPIRAND/EUSTACHIAN TUBE NFLTJ ANES 08/31/2015 Myringotomy/tubes- right ear PAST SURGICAL HISTORY OF tubes in ears REPAIR UMBILICAL HERNIA 2011 UNSPECIFIED ORAL SURGERY PROCEDURE, BY REPORT 4 teeth pulled [facility] DELIVERY SCHEDULING ORDER ALLERGIES Tape [Adhesive Tape (Rosins)] MEDICATIONS acetaZOLAMIDE SR (DIAMOX SEQUELS) 500 mg capsule Take 1 capsule by mouth twice daily. LORazepam (ATIVAN) 0.5 mg Take 0.5 mg by mouth as needed. ibuprofen (MOTRIN) 600 mg tablet Take 600 mg by mouth every 6 hours as needed. FAMILY HISTORY Adopted: Yes Problem Relation Age of Onset Cancer Maternal Aunt Social History Tobacco Use Smoking status: Never Smokeless tobacco: Never Vaping Use Vaping Use: Never used Substance Use Topics Alcohol use: Yes Comment: very rare Drug use: No BP 140/86 Pulse 104 Temp 37.1 ?C (98.7 ?F) Resp 16 Wt 104.1 kg (229 lb 6.4 oz) LMP 02/26/2017 SpO2 98% BMI 37.03 kg/m? Review of Systems Constitutional: Negative for chills, fever and malaise/fatigue. HENT: Negative for congestion, ear discharge, ear pain, sinus pain and sore throat. Eyes: Negative for blurred vision, pain, discharge and redness. Respiratory: Negative for cough, hemoptysis, sputum production, shortness of breath, wheezing and stridor. Cardiovascular: Negative for chest pain. Gastrointestinal: Negative for abdominal pain, diarrhea, nausea and vomiting. Musculoskeletal: Negative for myalgias. Skin: Negative for itching and rash. Neurological: Negative for dizziness and headaches. Objective Physical Exam Constitutional: General: She is not in acute distress. Appearance: She is not toxic-appearing or diaphoretic. HENT: Head: Normocephalic. Jaw: No trismus, tenderness, swelling or pain on movement. Nose: Nose normal. Mouth/Throat: Mouth: Mucous membranes are moist. Pharynx: Oropharynx is clear. Uvula midline. No pharyngeal swelling, oropharyngeal exudate, posterior oropharyngeal erythema or uvula swelling. Comments: Shallow ulcer-like lesions noted highlighted area. No remote redness. Eyes: Conjunctiva/sclera: Conjunctivae normal. Pupils: Pupils are equal, round, and reactive to light. Cardiovascular: Rate and Rhythm: Normal rate and regular rhythm. Heart sounds: Normal heart sounds. Pulmonary: Effort: Pulmonary effort is normal. No tachypnea, accessory muscle usage or respiratory distress. Breath sounds: Normal breath sounds. No stridor. No wheezing, rhonchi or rales. Abdominal: Palpations: Abdomen is soft. Musculoskeletal: Cervical back: Normal range of motion and neck supple. No edema, erythema, rigidity or tenderness. No pain with movement. Normal range of motion. Lymphadenopathy: Cervical: No cervical adenopathy. Skin: General: Skin is warm and dry. Neurological: General: No focal deficit present. Mental Status: She is alert and oriented to person, place, and time. ASSESSMENT/PLAN: 1. Canker sores oral - ICD9: 528.2, ICD10: K12.0 Diagnosed with canker sore. Treat conservatively at this time. Patient was educated on supportive therapies. Patient will follow up with primary care provider as needed. Patient was instructed to immediately proceed to emergency room for any new, worsening, or symptoms lasting longer than anticipated. The patient's clinical presentation is otherwise unremarkable at this time. Based on exam and clinical finding, the patient is stable for discharge. Plan of care was discussed with patient. P (more content not included)... [facility] 05-04-2023 Note HNO ID: [id number] Author: Judi Flores MD Service: ? Author Type: Physician Type: Progress Notes Filed: 05/07/2023 1:10 PM Note Text: Reviewed Epic, chart, labs, imaging studies. Recurrent IIH Has been following with her local Ophth, Dr. Novak Last seen 02/27/23 and had no disc edema, residual pallor, Spontaneous venous pulsations are present bilaterally. Since then has been having transient vision loss, tinnitus as well. Also feels that she has blurry vision from the right eye Went to the ED 04/26/23 and LP was performed with OP of 33. 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 Started on diamox 500 mg BID since LP. Improvement in SEGOVIA and pressure but still with occasional TVO, blurry vision right eye. No changes on visual field testing, dyschromatopsia. Significant disc edema OS>OD. Recommend increasing diamox to 1000mg BID. Reviewed MRI and MRV images with patient. She had an excellent response to Diamox in the past. Follow up in 3 month. 2. Migraine with aura. Most recent 5 months ago. Takes Ibuprofen +/- Tylenol Discussed Headache triggers and eating breakfast. Suggested Excedrin migraine prn. I have confirmed and edited as necessary the relevant ophthalmic history, ROS, and the neuro exam findings as obtained by others. I have seen and examined Sondra Serrano. I have discussed the case and the management of this patient's care with the Resident/Fellow, if applicable. I also have reviewed and agree with the assessment and plan as stated above and agree with all of its relevant components.The nature of the patient's eye disease, its relationship to systemic health, and its prognosis have been explained to the patient/family. The treatment options/risks/benefits have been discussed. Questions answered. Judi Flores MD [facility] 05-04-2023 History of Presen t illness Narrative Reviewed Epic, chart, labs, imaging studies. Recurrent IIH Has been following with her local Ophth, Dr. Novak Last seen 02/27/23 and had no disc edema, residual pallor, Spontaneous venous pulsations are present bilaterally. Since then has been having transient vision loss, tinnitus as well. Also feels that she has blurry vision from the right eye Went to the ED 04/26/23 and LP was performed with OP of 33. 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 Started on diamox 500 mg BID since LP. Improvement in SEGOVIA and pressure but still with occasional TVO, blurry vision right eye. No changes on visual field testing, dyschromatopsia. Significant disc edema OS>OD. Recommend increasing diamox to 1000mg BID. Reviewed MRI and MRV images with patient. She had an excellent response to Diamox in the past. Follow up in 3 month. 2. Migraine with aura. Most recent 5 months ago. Takes Ibuprofen +/- Tylenol Discussed Headache triggers and eating breakfast. Suggested Excedrin migraine prn. I have confirmed and edited as necessary the relevant ophthalmic history, ROS, and the neuro exam findings as obtained by others. I have seen and examined Sondra Serrano. I have discussed the case and the management of this patient's care with the Resident/Fellow, if applicable. I also have reviewed and agree with the assessment and plan as stated above and agree with all of its relevant components.The nature of the patient's eye disease, its relationship to systemic health, and its prognosis have been explained to the patient/family. The treatment options/risks/benefits have been discussed. Questions answered. Judi Flores MD documented in this encounter [facility] 04-26-2023 Note HNO ID: [id number] Author: Sebastian Hu RRT Service: Emergency Medicine Author Type: Respiratory Therapist Type: Progress Notes Filed: 04/26/2023 9:14 AM Note Text: RESPIRATORY THERAPY PROGRESS NOTE SERVICE DATE: 04/26/2023 SERVICE TIME: 911 Pt to CDU sent by . Pt has no respiratory hx or med's in chart, and has no respiratory med's ordered at this time. PT in [place]. SpO2 98% on RA. Will continue to monitor. SIGNATURE: Sebastian Hu RRT PATIENT NAME: Sondra Serrano DATE: April 26, 2023 TIME: 9:12 AM PAGER/CONTACT #: [phone] [facility] 04-26-2023 Note HNO ID: [id number] Author: Sue Finley RT([place]) Service: Radiology Author Type: Regional Controller Type: Progress Notes Filed: 04/26/2023 2:52 AM Note Text: Radiology Service Progress Note PATIENT NAME: Sondra Serrano DATE OF SERVICE: April 26, 2023 TIME: 2:52 AM PATIENT IDENTITY VERIFICATION COMPLETED USING TWO (2) IDENTIFIERS: Name and Date of confirmed by patient verbally and Name and Date of confirmed by identification band. FALL SCREENING: Has the patient had 2 falls in the last year or 1 fall with injury or currently using an Ambulatory Assistive Device (Walker, Cane, Wheelchair, Crutches, etc.)? Emergency Room Patient: Screened in ED PATIENT GENDER DATA: Female. status: : No status: NO. PATIENT RELEVANT IMPLANT DATA REVIEWED: Yes RADIOLOGY DEPARTMENT: CT; Exam(s) Completed: Brain PERIPHERAL IV DATA: Not applicable SIGNED BY: RT Maddie(R) April 26, 2023 2:52 AM [facility] 03-05-2023 Hospital Discharg e instructions Patient Education 03/05/2023 21:31:11 Abdominal Pain, Unknown Cause, (Female) Unknown Causes of Abdominal Pain (Female) The exact cause of your belly (abdominal) pain is not clear. This does not mean that this is something to worry about. Everyone likes to know the exact cause of the problem. But sometimes with belly pain, there is no clear-cut cause, and this could be a good thing. The good news is that your symptoms can be treated, and you will feel better. Your condition does not seem serious now. But sometimes the signs of a serious problem may take more time to appear. For this reason, it is important for you to watch for any new symptoms, problems, or worsening of your condition. Over the next few days, the abdominal pain may come and go. Or it may be constant. Other common symptoms can include nausea and vomiting. Sometimes it can be difficult to tell if you feel nauseous. You may just feel bad and not connect that feeling to nausea. Constipation, diarrhea, and a fever may go along with the pain. The pain may continue even if treated correctly over the following days. Depending on how things go, sometimes the cause can become clear and may need more or different treatment. Additional evaluations, medicines, or tests may also be needed. Home care Your healthcare provider may prescribe medicine for pain, symptoms, or an infection. Follow the healthcare provider's instructions for taking these medicines. General care Rest as much as you can until your next exam. No strenuous activities. Try to find positions that ease discomfort. A small pillow placed on the abdomen may help relieve pain. Something warm on your abdomen (such as a heating pad) may help, but be careful not to burn yourself. Diet Don t force yourself to eat, especially if having cramps, vomiting, or diarrhea. Water is important so you don't get dehydrated. Soup may also be good. Sports drinks may also help, especially if they are not too acidic. Don't drink sugary drinks as this can make things worse. Take liquids in small amounts. Don t guzzle them. Caffeine sometimes makes the pain and cramping worse. Don t take dairy products if you have vomiting or diarrhea. Don't eat large amounts at a time. Wait a few minutes between bites. Eat a diet low in fiber (called a low-residue diet). Foods allowed include refined breads, white rice, fruit and vegetable juices without pulp, tender meats. These foods will pass more easily through the intestine. Don t have whole-grain foods, whole fruits and vegetables, meats, seeds and nuts, fried or fatty foods, dairy, alcohol and spicy foods until your symptoms go away. Follow-up care Follow up with your healthcare provider, or as advised, if your pain does not begin to improve in the next 24 hours. Call 911 Call 911 if any of these occur: Trouble breathing Confusion Fainting or loss of consciousness Rapid heart rate Seizure When to seek medical advice Call your healthcare provider right away if any of these occur: Pain gets worse or moves to the right lower abdomen New or worsening vomiting or diarrhea Swelling of the abdomen Unable to pass stool for more than 3 days Fever of 100.4 F (38 C) or higher, or as directed by your healthcare provider. Blood in vomit or bowel movements (dark red or black color) Yellow color of eyes and skin (jaundice) Weakness, dizziness Chest, arm, back, neck, or jaw pain Unexpected vaginal bleeding or missed period Can't keep down liquids or water and you are getting dehydrated [id number] [employer]. [address] [place] [address], [place] [address]. All rights reserved. This information is not intended as a substitute for professional medical care. Always follow your healthcare professional's instructions. 03/05/2023 21:31:05 Pelvic Pain, Unknown Cause Pelvic Pain, Uncertain Cause Pelvic pain is pain felt in the lowest part of the belly (abdomen) and between the hipbones. The pain may occur suddenly and recently (acute). Or the pain may last for 6 months or longer (chronic). There are many possible causes of pelvic pain. The pain may be due to a problem in the female reproductive system. Or, it may be due to a problem in the digestive, urinary, or musculoskeletal systems. Based on your visit today, the exact cause of your pelvic pain is not certain. Your condition does not appear to be serious at this time. But it is important for you to keep watching for any new symptoms or worsening of your condition. General care Your healthcare provider may advise a number of ways to help manage your pain. These can include: Taking rlyq-afx-lemauzs pain medicine. Stronger pain medicine may also be prescribed, if needed. Applying heat to the pelvic area. Use a heating pad or a hot pack. Taking a hot bath may also help. Getting plenty of rest. Making certain lifestyle changes. These can include practicing good posture and getting regular exercise. Studies have shown that these changes help reduce pelvic pain in some women. Seeing a physical therapist or pain specialist. These healthcare providers can discuss other ways to manage pain with you. Follow-up care Follow up with your healthcare provider, or as advised. When to seek medical advice Call your healthcare provider right away if any of the following occur: Fever of 100.4 F or higher, or as directed by your healthcare provider Pain worsens or you have sudden, severe pain or new pain Nausea, vomiting, sweating, or restlessness Dizziness or fainting Unusual vaginal discharge Abnormal vaginal bleeding (especially bleeding after menopause) [id number] [employer]. [address] [place] [address]. All rights reserved. This information is not intended as a substitute for professional medical care. Always follow your healthcare professional's instructions. Follow Up Care 03/05/2023 20:47:33 With:SEEMA BULLOCK DO Address: [address] [place] [phone] When:2-4 days [facility] 03-05-2023 Note HNO ID: [id number] Author: Shin Mosley APRN.MATERIAL STRESS TESTER Service: ? Author Type: Nurse Practitioner Type: Progress Notes Filed: 03/05/2023 7:52 PM Note Text: Patient triaged at [facility]. Here today with severe abdominal pain and left leg pain. Recent abdominal surgery. Was seen in ER earlier today, left leg ultrasound negative. Is in tears in pain. I discussed limitations of [facility]. I advised to call surgeons office or return to Er. [facility] 03-05-2023 Note Discharge Instructions Thank you for allowing [facility] to assist you with your healthcare needs. The following is important discharge information regarding your hospital visit. Diagnosis from Today's Visit Abdominal pain Pain in left leg Leg pain-swelling What to Do Next Instructions from Your Care Team No qualifying data available. Post Acute Orders No qualifying data available. You Need to Schedule the Following Appointments Follow Up with SEEMA BULLOCK DO When Within 2-4 days Where: 0 [facility] [address] [place] [address]- [phone] Allergies Tape Medications Please ask your primary doctor or pharmacist before taking any other medication not listed, including over the counter drugs, herbal medications, vitamins and or supplements as they may interact with your home medications. What How Much When Why Instructions Last Dose Changed ibuprofen (ibuprofen 600 mg oral tablet) 1 tab(s) by mouth Every 6 hours as needed for as needed for pain Changed ibuprofen (ibuprofen 600 mg oral tablet) 1 tab(s) by mouth Every 6 hours as needed for for pain Abdominal pain Pain in left leg Take with food or milk. Printed Prescription Unchanged LORazepam (LORazepam 0.5 mg oral tablet) 1 tab(s) by mouth Two (2) times a day as needed for as needed for anxiety Unchanged ondansetron (Zofran 4 mg oral tablet) 1 tab(s) by mouth Every 6 hours Duration: 5 Days Unchanged oxyCODONE (oxyCODONE 5 mg oral tablet ( IMMEDIATE release )) 1 tab(s) by mouth Every 6 hours as needed for for pain Unchanged venlafaxine (venlafaxine 150 mg oral capsule, extended release) 1 cap by mouth Once a day Please take this list to your next doctor s visit. Bring all medications you take, including over the counter medications, herbals and other supplements with you to your doctor s visit. Patients and families are reminded to discard old lists and to update any records with all medication providers or retail pharmacies. Education Materials Unknown Causes of Abdominal Pain (Female) The exact cause of your belly (abdominal) pain is not clear. This does not mean that this is something to worry about. Everyone likes to know the exact cause of the problem. But sometimes with belly pain, there is no clear-cut cause, and this could be a good thing. The good news is that your symptoms can be treated, and you will feel better. Your condition does not seem serious now. But sometimes the signs of a serious problem may take more time to appear. For this reason, it is important for you to watch for any new symptoms, problems, or worsening of your condition. Over the next few days, the abdominal pain may come and go. Or it may be constant. Other common symptoms can include nausea and vomiting. Sometimes it can be difficult to tell if you feel nauseous. You may just feel bad and not connect that feeling to nausea. Constipation, diarrhea, and a fever may go along with the pain. The pain may continue even if treated correctly over the following days. Depending on how things go, sometimes the cause can become clear and may need more or different treatment. Additional evaluations, medicines, or tests may also be needed. Home care Your healthcare provider may prescribe medicine for pain, symptoms, or an infection. Follow the healthcare provider's instructions for taking these medicines. General care Rest as much as you can until your next exam. No strenuous activities. Try to find positions that ease discomfort. A small pillow placed on the abdomen may help relieve pain. Something warm on your abdomen (such as a heating pad) may help, but be careful not to burn yourself. Diet Don t force yourself to eat, especially if having cramps, vomiting, or diarrhea. Water is important so you don't get dehydrated. Soup may also be good. Sports drinks may also help, especially if they are not too acidic. Don't drink sugary drinks as this can make things worse. Take liquids in small amounts. Don t guzzle them. Caffeine sometimes makes the pain and cramping worse. Don t take dairy products if you have vomiting or diarrhea. Don't eat large amounts at a time. Wait a few minutes between bites. Eat a diet low in fiber (called a low-residue diet). Foods allowed include refined breads, white rice, fruit and vegetable juices without pulp, tender meats. These foods will pass more easily through the intestine. Don t have whole-grain foods, whole fruits and vegetables, meats, seeds and nuts, fried or fatty foods, dairy, alcohol and spicy foods until your symptoms go away. Follow-up care Follow up with your healthcare provider, or as advised, if your pain does not begin to improve in the next 24 hours. Call 911 Call 911 if any of these occur: Trouble breathing Confusion Fainting or loss of consciousness Rapid heart rate Seizure When to seek medical advice Call your healthcare provider right away if any of these occur: Pain gets worse or moves to the right lower abdomen New or worsening vomiting or diarrhea Swelling of the abdomen Unable to pass stool for more than 3 days Fever of 100.4 F (38 C) or higher, or as directed by your healthcare provider. Blood in vomit or bowel movements (dark red or black color) Yellow color of eyes and skin (jaundice) Weakness, dizziness Chest, arm, back, neck, or jaw pain Unexpected vaginal bleeding or missed period Can't keep down liquids or water and you are getting dehydrated [employer]. [address] [place] [address]. All rights reserved. This information is not intended as a substitute for professional medical care. Always follow your healthcare professional's instructions. Pelvic Pain, Uncertain Cause Pelvic pain is pain felt in the lowest part of the belly (abdomen) and between the hipbones. The pain may occur suddenly and recently (acute). Or the pain may last for 6 months or longer (chronic). There are many possible causes of pelvic pain. The pain may be due to a problem in the female reproductive system. Or, it may be due to a problem in the digestive, urinary, or musculoskeletal systems. Based on your visit today, the exact cause of your pelvic pain is not certain. Your condition does not appear to be serious at this time. But it is important for you to keep watching for any new symptoms or worsening of your condition. General care Your healthcare provider may advise a number of ways to help manage your pain. These can include: Taking rbrp-zwl-tyenckx pain medicine. Stronger pain medicine may also be prescribed, if needed. Applying heat to the pelvic area. Use a heating pad or a hot pack. Taking a hot bath may also help. Getting plenty of rest. Making certain lifestyle changes. These can include practicing good posture and getting regular exercise. Studies have shown that these changes help reduce pelvic pain in some women. Seeing a physical therapist or pain specialist. These healthcare providers can discuss other ways to manage pain with you. Follow-up care Follow up with your healthcare provider, or as advised. When to seek medical advice Call your healthcare provider right away if any of the following occur: Fever of 100.4 F or higher, or as directed by your healthcare provider Pain worsens or you have sudden, severe pain or new pain Nausea, vomiting, sweating, or restlessness Dizziness or fainting Unusual vaginal discharge Abnormal vaginal bleeding (especially bleeding after menopause) [employer]. [address] [place] [address]. All rights reserved. This information is not intended as a substitute for professional medical care. Always follow your healthcare professional's instructions. Additional Information VACCINATE! IT SAVES LIVES! Members of the community who have not yet received the COVID-19 vaccine and would like to receive it can visit one of [facility] vaccine clinics. There are many vaccine clinic locations within the [facility]. For locations and available times, please visit [email or web address] It is important to note that some COVID mobile vaccine clinics are held outdoors and may be canceled in rainy or stormy conditions. To learn more about pediatric vaccinations (ages 5-11), we invite you to visit the [employer]s webpage. [email or web address] [email or web address]-Freq [email or web address] To learn more about the COVID-19 vaccine, we invite you to visit the CDC website for a list of frequently asked questions. https://www.cdc.gov/coronavirus/ 2019-ncov/vaccines/faq.html [facility] Patient Portal Access Instructions: Stay connected with your healthcare team and access your personal medical information anytime with the [facility] Patient Portal. If you would like a full copy of your medical records please contact the [facility] Medical Records Department Sunday through Sunday between 8a.m. and 4:30p.m. Please follow the directions below to access the portal: 1.Access the email account you provided upon registration to the hospital.2.Look for an invitation email from [facility].3.Open the email and access the invitation link: Accept Invitation to [facility].Fill in the required carson to create your account. Sign into [email or web address] with your username and password that you created in the above steps to stay up to date. You can then view a summary of results, a summary of your visits, and the ability to download your summaries to your computer or send the information securely to a physician. Remember that your healthcare information is confidential, so carefully consider who you will allow to register on the [facility] Patient Portal for access to your information. You can also access the [facility] Patient Portal on the [facility] haydee. Simply click on Health Records under [employer] and then click on the [employer] logo. HOW TO SAFELY DISPOSE OF PRESCRIPTION MEDICATIONS Please use one of the following methods to safely dispose of your unused medications. 1.Use a drug disposal kit: the drug disposal pouch allows you to safely discard your old and unused drugs. Ask your nurse to give you one when you are discharged.2.Visit a local take-back location: Many local pharmacies and police departments have programs that collect old and unwanted prescription drugs. Call your local pharmacy or go to http://Phorm.Apprion/1Z2Vn9g to find one close to you.3.Make use of household items: Use cat litter or old coffee grounds to dispose medications if other options are not available. Mix your drugs with these household products, seal them in an airtight container and throw it into the garbage. Call [facility]: [phone] to be sure your drugs can be disposed of in this way. Some medicines may require a different approach.4.Never flush your medications down the toilet. IF YOU HAVE BEEN PRESCRIBED AN OPIOIDS FOR PAIN If you have been prescribed an opioid (such as hydrocodone, oxycodone or morphine), it is critical to understand the possible side effects and risks of opioid pain medications. Even when taken as directed, opioids can have several side effects including: Tolerance, meaning you might need to take more of a medication for the same pain relief. Nausea, vomiting and/or constipation. Sleepiness, dizziness, dry mouth, confusion, depression or itching. Physical dependence, meaning you have withdrawal symptoms when a medication is stopped ? this can develop within a few days. KNOW YOUR RESPONSIBILITIES It is important to know exactly how much and how often to take the opioid pain medications you are prescribed. Never take opioids in higher amounts or more often than prescribed. Do not combine opioids with alcohol or other drugs that cause drowsiness, such as benzodiazepines, also known as benzos, including diazepam and alprazolam, muscle relaxants or sleep aids. Never sell or share prescription opioids. This is illegal. Store opioids in a secure place and out of reach of others (including children, family, friends and visitors). The last page(s) of this document has been signed and retained as a CHART COPY Signatures Patient Education Materials Abdominal Pain, Unknown Cause, (Female) Pelvic Pain, Unknown Cause Medication Leaflets My discharge plan and instructions have been reviewed and explained to me and I,SONDRA SERRANO understand my current condition and have read and understand these discharge instructions. I have received a written copy of the plan/instructions. If I have questions, I am aware that I should contact my doctor. 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 Here today with severe abdominal pain and left leg pain. Recent abdominal surgery. Was seen in ER earlier today, left leg ultrasound negative. Is in tears in pain. I discussed limitations of [facility]. I advised to call surgeons office or return to Er. documented in this encounter [facility] 02-27-2023 Note HNO ID: [id number] Author: Judi Flores MD Service: ? Author Type: Physician Type: Progress Notes Filed: 02/27/2023 5:22 PM Note Text: Reviewed Epic, chart, labs, imaging studies. IIH resolved Has been following with her local Ophth, Dr. Novak Off Diamox for over a year Disc edema resolved with mild pallor. Spontaneous venous pulsations are present bilaterally. No transient vision loss, diplopia, scintillations, tinnitus, oscillopsia. Headache as below Agree that there is no indication to restart Diamox 2. Migraine with aura. Most recent 3 months ago. Takes Ibuprofen +/- Tylenol Discussed Headache triggers and eating breakfast. Suggested Excedrin migraine prn. [facility] 02-13-2023 Hospital Discharg e instructions Patient Education 02/12/2023 23:08:29 Ovarian Cystectomy, Care After Ovarian Cystectomy, Care After This sheet gives you information about how to care for yourself after your procedure. Your health care provider may also give you more specific instructions. If you have problems or questions, contact your health care provider. What can I expect after the procedure? After the procedure, it is common to have: Pain in your abdomen, especially at the incision areas. You will be given pain medicines to control the pain. Tiredness. This is a normal part of the recovery process. Your energy level will return to normal over the next several weeks. Problems passing stool (constipation). Follow these instructions at home: Medicines Take saol-ihx-enesyii and prescription medicines only as told by your health care provider. If you were prescribed an antibiotic medicine, use it as told by your health care provider. Do not stop using the antibiotic even if you start to feel better. Do not take aspirin because it can cause bleeding. Do not drink alcohol while taking prescription pain medicine. Do not drive or use heavy machinery while taking prescription pain medicine. Incision care Follow instructions from your health care provider about how to take care of your incisions. Make sure you: ?Wash your hands with soap and water before you change your bandage (dressing). If soap and water are not available, use hand shelving supervisor. ?Change your dressing as told by your health care provider. ?Leave stitches (sutures), skin glue, or adhesive strips in place. These skin closures may need to stay in place for 2 weeks or longer. If adhesive strip edges start to loosen and curl up, you may trim the loose edges. Do not remove adhesive strips completely unless your health care provider tells you to do that. Check your incision areas every day for signs of infection. Check for: ?Redness, swelling, or pain. ?Fluid or blood. ?Warmth. ?Pus or a bad smell. Do not take baths, swim, or use a hot tub until your health care provider approves. Take showers instead of baths. Activity Return to your normal activities and diet as told by your health care provider. Ask your health care provider what activities are safe for you. Take rest breaks during the day as needed. Do not drive until your health care provider approves. General instructions Do not douche, use tampons, or have sexual intercourse until your health care provider says it is okay to do so. To prevent or treat constipation while you are taking prescription pain medicine, your health care provider may recommend that you: ?Take msuj-vwr-qxafcko or prescription medicines. ?Eat foods that are high in fiber, such as fresh fruits and vegetables, whole grains, and beans. ?Drink enough fluid to keep your urine clear or pale yellow. ?Limit foods that are high in fat and processed sugars, such as fried and sweet foods. Keep all follow-up visits as told by your health care provider. This is important. Contact a health care provider if: You have a fever. You feel nauseous or you vomit. You have pain when you urinate or have blood in your urine. You have a rash on your body. You have pain or redness where the IV was inserted. You have pain that is not relieved with medicine. You have signs of infection, such as: ?Redness, swelling, or pain around your incisions. ?Fluid or blood coming from your incisions. ?An incision that feels warm to the touch. ?Pus or a bad smell coming from your incisions. Get help right away if: You have chest pain or shortness of breath. You feel dizzy or light-headed. You have increasing abdominal pain that is not relieved with medicines. You have pain, swelling, or redness in your leg. Your incision is opening (the edges are not staying together). Summary After the procedure, it is common to have some pain in your abdomen. You will be given pain medicines to control the pain. Follow instructions from your health care provider about how to take care of your incisions. Do not douche, use tampons, or have sexual intercourse until your health care provider says it is okay to do so. Keep all follow-up visits as told by your health care provider. This is important. This information is not intended to replace advice given to you by your health care provider. Make sure you discuss any questions you have with your health care provider. Document Released: 06/17/2014 Document Revised: 08/09/2018 Document Reviewed: 10/16/2017 [employer] Patient Education 2020 [employer]. 02/12/2023 23:08:15 Diagnostic Laparoscopy, Care After Laparoscopy, Care After This sheet gives you information about how to care for yourself after your procedure. Your health care provider may also give you more specific instructions. If you have problems or questions, contact your health care provider. What can I expect after the procedure? After the procedure, it is common to have: Mild discomfort in the abdomen. Sore throat. Women who have laparoscopy with pelvic examination may have mild cramping and fluid coming from the vagina for a few days after the procedure. Follow these instructions at home: Medicines Take gnlz-lms-nmnqlas and prescription medicines only as told by your health care provider. If you were prescribed an antibiotic medicine, take it as told by your health care provider. Do not stop taking the antibiotic even if you start to feel better. Driving Do not drive for 24 hours if you were given a medicine to help you relax (sedative) during your procedure. Do not drive or use heavy machinery while taking prescription pain medicine. Bathing Do not take baths, swim, or use a hot tub until your health care provider approves. You may take showers. Incision care Follow instructions from your health care provider about how to take care of your incisions. Make sure you: ?Wash your hands with soap and water before you change your bandage (dressing). If soap and water are not available, use hand shelving supervisor. ?Change your dressing as told by your health care provider. ?Leave stitches (sutures), skin glue, or adhesive strips in place. These skin closures may need to stay in place for 2 weeks or longer. If adhesive strip edges start to loosen and curl up, you may trim the loose edges. Do not remove adhesive strips completely unless your health care provider tells you to do that. Check your incision areas every day for signs of infection. Check for: ?Redness, swelling, or pain. ?Fluid or blood. ?Warmth. ?Pus or a bad smell. Activity Return to your normal activities as told by your health care provider. Ask your health care provider what activities are safe for you. Do not lift anything that is heavier than 10 lb (4.5 kg), or the limit that you are told, until your health care provider says that it is safe. General instructions To prevent or treat constipation while you are taking prescription pain medicine, your health care provider may recommend that you: ?Drink enough fluid to keep your urine pale yellow. ?Take wncz-yvz-zpxdgib or prescription medicines. ?Eat foods that are high in fiber, such as fresh fruits and vegetables, whole grains, and beans. ?Limit foods that are high in fat and processed sugars, such as fried and sweet foods. Do not use any products that contain nicotine or tobacco, such as cigarettes and e-cigarettes. If you need help quitting, ask your health care provider. Keep all follow-up visits as told by your health care provider. This is important. Contact a health care provider if: You develop shoulder pain. You feel lightheaded or faint. You are unable to pass gas or have a bowel movement. You feel nauseous or you vomit. You develop a rash. You have redness, swelling, or pain around any incision. You have fluid or blood coming from any incision. Any incision feels warm to the touch. You have pus or a bad smell coming from any incision. You have a fever or chills. Get help right away if: You have severe pain. You have vomiting that does not go away. You have heavy bleeding from the vagina. Any incision opens. You have trouble breathing. You have chest pain. Summary After the procedure, it is common to have mild discomfort in the abdomen and a sore throat. Check your incision areas every day for signs of infection. Return to your normal activities as told by your health care provider. Ask your health care provider what activities are safe for you. This information is not intended to replace advice given to you by your health care provider. Make sure you discuss any questions you have with your health care provider. Document Released: 08/07/2016 Document Revised: 08/09/2018 Document Reviewed: 02/20/2018 [employer] Patient Education 2020 [employer]. 02/12/2023 23:08:15 Salpingectomy Salpingectomy Salpingectomy, also called tubectomy, is the surgical removal of one of the fallopian tubes. The fallopian tubes are where eggs travel from the ovaries to the uterus. Removing one fallopian tube does not prevent you from becoming . It also does not cause problems with your menstrual periods. You may need this procedure if you: Have a fertilized egg that attaches to the fallopian tube (ectopic ), especially one that causes the tube to burst or tear (rupture). Have an infected fallopian tube. Have cancer of the fallopian tube or nearby organs. Have had an ovary removed due to a cyst or tumor. Have had your uterus removed. Are at high risk for ovarian cancer. There are three different methods that can be used for a salpingectomy: An open method that involves making one large incision in your abdomen. A laparoscopic method that involves using a thin, lighted tube with a tiny camera on the end (laparoscope) to help perform the procedure. The laparoscope will allow your surgeon to make several small incisions in the abdomen instead of one large incision. A robot-assisted method that involves using a computer to control surgical instruments that are attached to robotic arms. Tell a health care provider about: Any allergies you have. All medicines you are taking, including vitamins, herbs, eye drops, creams, and qxsj-lzj-xrlbqqj medicines. Any problems you or family members have had with anesthetic medicines. Any blood disorders you have. Any surgeries you have had. Any medical conditions you have. Whether you are or may be . What are the risks? Generally, this is a safe procedure. However, problems may occur, including: Infection. Bleeding. Allergic reactions to medicines. Blood clots in the legs or lungs. Damage to other structures or organs. What happens before the procedure? Medicines Ask your health care provider about: ?Changing or stopping your regular medicines. This is especially important if you are taking diabetes medicines or blood thinners. ?Taking medicines such as aspirin and ibuprofen. These medicines can thin your blood. Do not take these medicines unless your health care provider tells you to take them. ?Taking dtwy-uvo-yzccrnv medicines, vitamins, herbs, and supplements. Staying hydrated Follow instructions from your health care provider about hydration, which may include: Up to 2 hours before the procedure you may continue to drink clear liquids, such as water, clear fruit juice, black coffee, and plain tea. Eating and drinking restrictions Follow instructions from your health care provider about eating and drinking, which may include: 8 hours before the procedure stop eating heavy meals or foods, such as meat, fried foods, or fatty foods. 6 hours before the procedure stop eating light meals or foods, such as toast or cereal. 6 hours before the procedure stop drinking milk or drinks that contain milk. 2 hours before the procedure stop drinking clear liquids. General instructions Do not use any products that contain nicotine or tobacco for at least 4 weeks before the procedure. These products include cigarettes, e-cigarettes, and chewing tobacco. If you need help quitting, ask your health care provider. You may have an exam or tests, such as: ?An electrocardiogram (ECG). ?A blood or urine test. Ask your health care provider what steps will be taken to help prevent infection. These may include: ?Removing hair at the surgery site. ?Washing skin with a germ-killing soap. ?Taking antibiotic medicine. Plan to have someone take you home from the hospital or clinic. If you will be going home right after the procedure, plan to have someone with you for 24 hours. What happens during the procedure? An IV will be inserted into one of your veins. You will be given one or more of the following: ?A medicine to help you relax (sedative). ?A medicine to make you fall asleep (general anesthetic). A thin tube (catheter) may be inserted through your urethra and into your bladder to drain urine during your procedure. Depending on the type of procedure you are having, one incision or several small incisions will be made in your abdomen. Your fallopian tube will be cut and removed from where it attaches to your uterus. Your blood vessels will be clamped and tied to prevent excess bleeding. The incisions in your abdomen will be closed with stitches (sutures), yadira, or skin glue. A bandage (dressing) may be placed over your incisions. The procedure may vary among health care providers and hospitals. What happens after the procedure? Your blood pressure, heart rate, breathing rate, and blood oxygen level will be monitored until you leave the hospital. You may continue to receive fluids and medicines through an IV. You may continue to have a catheter draining your urine. You may have to wear compression stockings. These stockings help to prevent blood clots and reduce swelling in your legs. You will be given pain medicine as needed. Do not drive for 24 hours if you were given a sedative during your procedure. Summary Salpingectomy is a surgical procedure to remove one of the fallopian tubes. The procedure may be done with an open incision, a laparoscope, or computer-controlled instruments. Depending on the type of procedure you are having, one incision or several small incisions will be made in your abdomen. Your blood pressure, heart rate, breathing rate, and blood oxygen level will be monitored until you leave the hospital. Plan to have someone take you home from the hospital or clinic. This information is not intended to replace advice given to you by your health care provider. Make sure you discuss any questions you have with your health care provider. Document Released: 01/13/2010 Document Revised: 08/18/2019 Document Reviewed: 08/18/2019 [employer] Patient Education 2020 [employer]. 02/12/2023 23:08:15 Ruptured Ectopic Ruptured Ectopic An ectopic is when a fertilized egg attaches (implants) outside of the uterus, usually in a fallopian tube. A ruptured ectopic is when the fallopian tube tears or bursts. This results in internal bleeding, intense abdominal pain, and sometimes, vaginal bleeding. Most ectopic pregnancies occur in the fallopian tube. In rare cases, it may occur on the ovary, intestine, pelvis, or cervix. An ectopic does not have the ability to develop into a normal, healthy baby. A ruptured ectopic can affect your ability to have children (fertility), depending on damage it causes to your reproductive organs. Ruptured ectopic is a medical emergency. If not treated immediately, it can lead to blood loss, shock, or even . What are the causes? Most ectopic pregnancies are caused by damage to the fallopian tubes. The damage prevents the fertilized egg from implanting in the uterus. In some cases, the cause may not be known. What increases the risk? You are at increased risk for an ectopic if: You have had a previous ectopic . You have had previous fallopian tube surgery. You have had previous surgery to have the fallopian tubes tied (tubal ligation). You have had infertility treatments or have a history of infertility. You have been exposed to ALLIE. ALLIE is a medicine that was used until 1971 and had effects on babies whose mothers took the medicine. You use an IUD (intrauterine device) for control. You use progestin-only oral contraception for control. You have a history of pelvic inflammatory disease (PID). You have a history of endometriosis. You smoke. You became sexually active before 18 years of age. You have multiple sexual partners. What are the signs or symptoms? Symptoms of a ruptured ectopic and internal bleeding may include: Sudden, severe pain in the abdomen and pelvis. Dizziness or fainting. Pain in the shoulder area. Vaginal bleeding. How is this diagnosed? This condition is diagnosed based on your medical history, symptoms, a physical exam, and tests, which may include: A test. An ultrasound. Measuring the levels of the hormone in the bloodstream. Taking a sample of tissue from the uterus (dilation and curettage, D&C). Surgery to visually examine the inside of the abdomen using a lighted tube (laparoscopy). How is this treated? This condition is treated with IV fluids and emergency surgery to remove the ectopic and repair the area where the rupture occured. If you have lost a lot of blood, you may need a blood transfusion. If you are Rh negative and your baby's father is Rh positive, or the Rh type of the father is unknown, you may receive a Rho (D) immune globulin shot. This is to prevent Rh problems in future pregnancies. Additional medicines may be given. Get help right away if: You are taking medicines to treat an ectopic and you develop symptoms of a rupture. These include: ?Fever or chills. ?Shoulder pain. ?Vaginal bleeding. ?Nausea and vomiting. ?Severe abdominal pain or cramping. ?Feeling light-headed or fainting. Summary An ectopic is when a fertilized egg attaches (implants) outside of the uterus, usually in a fallopian tube. A ruptured ectopic is when the fallopian tube tears or bursts. Ruptured ectopic is a medical emergency. If not treated immediately, it can lead to blood loss, shock, or even . This condition is treated with IV fluids and emergency surgery to remove the ectopic and repair the area where the rupture occured. If you have lost a lot of blood, you may need a blood transfusion. This information is not intended to replace advice given to you by your health care provider. Make sure you discuss any questions you have with your health care provider. Document Released: 08/24/2001 Document Revised: 08/09/2018 Document Reviewed: 11/14/2017 [employer] Patient Education 2020 [employer]. 02/12/2023 23:08:15 Ovarian Cyst Ovarian Cyst An ovarian cyst is a fluid-filled sac that forms on an ovary. The ovaries are small organs that produce eggs in women. Various types of cysts can form on the ovaries. Some may cause symptoms and require treatment. Most ovarian cysts go away on their own, are not cancerous (are benign), and do not cause problems. Common types of ovarian cysts include: Functional (follicle) cysts. ?Occur during the menstrual cycle, and usually go away with the next menstrual cycle if you do not get . ?Usually cause no symptoms. Endometriomas. ?Are cysts that form from the tissue that lines the uterus (endometrium). ?Are sometimes called chocolate cysts because they become filled with blood that turns brown. ?Can cause pain in the lower abdomen during intercourse and during your period. Cystadenoma cysts. ?Develop from cells on the outside surface of the ovary. ?Can get very large and cause lower abdomen pain and pain with intercourse. ?Can cause severe pain if they twist or break open (rupture). Dermoid cysts. ?Are sometimes found in both ovaries. ?May contain different kinds of body tissue, such as skin, teeth, hair, or cartilage. ?Usually do not cause symptoms unless they get very big. Theca lutein cysts. ?Occur when too much of a certain hormone (human chorionic gonadotropin) is produced and overstimulates the ovaries to produce an egg. ?Are most common after having procedures used to assist with the conception of a baby (in vitro fertilization). What are the causes? Ovarian cysts may be caused by: Ovarian hyperstimulation syndrome. This is a condition that can develop from taking fertility medicines. It causes multiple large ovarian cysts to form. Polycystic ovarian syndrome (PCOS). This is a common hormonal disorder that can cause ovarian cysts, as well as problems with your period or fertility. What increases the risk? The following factors may make you more likely to develop ovarian cysts: Being overweight or obese. Taking fertility medicines. Taking certain forms of hormonal control. Smoking. What are the signs or symptoms? Many ovarian cysts do not cause symptoms. If symptoms are present, they may include: Pelvic pain or pressure. Pain in the lower abdomen. Pain during sex. Abdominal swelling. Abnormal menstrual periods. Increasing pain with menstrual periods. How is this diagnosed? These cysts are commonly found during a routine pelvic exam. You may have tests to find out more about the cyst, such as: Ultrasound. X-ray of the pelvis. CT scan. MRI. Blood tests. How is this treated? Many ovarian cysts go away on their own without treatment. Your health care provider may want to check your cyst regularly for 2 3 months to see if it changes. If you are in menopause, it is especially important to have your cyst monitored closely because menopausal women have a higher rate of ovarian cancer. When treatment is needed, it may include: Medicines to help relieve pain. A procedure to drain the cyst (aspiration). Surgery to remove the whole cyst. Hormone treatment or control pills. These methods are sometimes used to help dissolve a cyst. Follow these instructions at home: Take crpx-azh-aykkniw and prescription medicines only as told by your health care provider. Do not drive or use heavy machinery while taking prescription pain medicine. Get regular pelvic exams and Pap tests as often as told by your health care provider. Return to your normal activities as told by your health care provider. Ask your health care provider what activities are safe for you. Do not use any products that contain nicotine or tobacco, such as cigarettes and e-cigarettes. If you need help quitting, ask your health care provider. Keep all follow-up visits as told by your health care provider. This is important. Contact a health care provider if: Your periods are late, irregular, or painful, or they stop. You have pelvic pain that does not go away. You have pressure on your bladder or trouble emptying your bladder completely. You have pain during sex. You have any of the following in your abdomen: ?A feeling of fullness. ?Pressure. ?Discomfort. ?Pain that does not go away. ?Swelling. You feel generally ill. You become constipated. You lose your appetite. You develop severe acne. You start to have more body hair and facial hair. You are gaining weight or losing weight without changing your exercise and eating habits. You think you may be . Get help right away if: You have abdominal pain that is severe or gets worse. You cannot eat or drink without vomiting. You suddenly develop a fever. Your menstrual period is much heavier than usual. This information is not intended to replace advice given to you by your health care provider. Make sure you discuss any questions you have with your health care provider. Document Released: 08/27/2006 Document Revised: 11/25/2018 Document Reviewed: 01/28/2017 [employer] Patient Education 2020 [employer]. Follow Up Care 02/12/2023 17:18:26 With:SEEMA BULLOCK DO Address: [address] [place] [phone] When: Unknown Comments:Follow up in at office in 2 weeks With:SEEMA BULLOCK Address: [address] [place] [phone] Business (1) When:Within 2 Week(s) [facility] 02-12-2023 Summary of episod e note Discharge Instructions Thank you for allowing [facility] to assist you with your healthcare needs. The following is important discharge information regarding your hospital visit. Your Care Team PHYSICIAN, NONE Your Diagnosis Abdominal pain H/O unilateral salpingectomy Ovarian cyst, left Ruptured right tubal ectopic causing hemoperitoneum Status post laparoscopy, Status post ovarian cystectomy What to do next Follow Up Appointments Follow Up with SEEMA BULLOCK DO When Why: Follow up in at office in 2 weeks Where: [address] [place] [phone] Follow Up with SEEMA BULLOCK When In 2 weeks Where: [address] [place] [phone] Business (1) The Following Activity and Diet Have Been Ordered for You Discharge Activity - Ordered -- Sexual [place] Restricted, 2 weeks, 02/12/23 22:46:00 EDT Discharge Driving Restrictions - Ordered -- No driving until pain-free, 02/12/23 22:46:00 EDT Discharge Return to Work, School, or Sports - Ordered -- within 5-7 days, May return to: work, 02/12/23 22:46:00 EDT Discharge Diet - Ordered -- No changes were made to your diet during your hospital stay. Please resume your pre hospitalization diet on discharge., 02/12/23 22:46:00 EDT The Following Equipment Has Been Ordered for You No qualifying data available. The Following Treatments Have Been Ordered for You Discharge Labs No qualifying data available. Discharge Radiology No qualifying data available. Other Therapies No qualifying data available. Post Acute Orders No qualifying data available. Someone Will Contact You Regarding These Home Health Referrals No home referrals have been ordered for you. No one will call you. Allergies Tape Medications Please ask your primary doctor or pharmacist before taking any other medication not listed, including over the counter drugs, herbal medications, vitamins and or supplements as they may interact with your home medications. What How Much When Why Instructions Last Dose Changed acetaminophen-oxyCODONE (acetaminophen-oxyCODONE 325 mg-5 mg oral tablet) 1 tab(s) by mouth Every 4 hours as needed for for pain Status post laparoscopy Status post ovarian cystectomy Duration: 3 Days Pickup at [facility]/pharmacy #[id number] Changed ibuprofen (ibuprofen 600 mg oral tablet) 1 tab(s) by mouth Every 6 hours as needed for as needed for pain Pickup at [facility]/pharmacy #[id number] Changed ondansetron (Zofran 4 mg oral tablet) 1 tab(s) by mouth Every 6 hours Duration: 5 Days Pickup at [facility]/pharmacy #[id number] Unchanged LORazepam (LORazepam 0.5 mg oral tablet) 1 tab(s) by mouth Two (2) times a day as needed for as needed for anxiety Unchanged oxyCODONE (oxyCODONE 5 mg oral tablet ( IMMEDIATE release )) 1 tab(s) by mouth Every 6 hours as needed for for pain Unchanged venlafaxine (venlafaxine 150 mg oral capsule, extended release) 1 cap by mouth Once a day Pharmacy Information [facility]/pharmacy #[id number]: [address] [place], [place] [phone] Please take this list to your next doctor s visit. Bring all medications you take, including over the counter medications, herbals and other supplements with you to your doctor s visit. Patients and families are reminded to discard old lists and to update any records with all medication providers or retail pharmacies. Education Materials Ovarian Cystectomy, Care After This sheet gives you information about how to care for yourself after your procedure. Your health care provider may also give you more specific instructions. If you have problems or questions, contact your health care provider. What can I expect after the procedure? After the procedure, it is common to have: Pain in your abdomen, especially at the incision areas. You will be given pain medicines to control the pain. Tiredness. This is a normal part of the recovery process. Your energy level will return to normal over the next several weeks. Problems passing stool (constipation). Follow these instructions at home: Medicines Take vnke-lsw-dwntwmx and prescription medicines only as told by your health care provider. If you were prescribed an antibiotic medicine, use it as told by your health care provider. Do not stop using the antibiotic even if you start to feel better. Do not take aspirin because it can cause bleeding. Do not drink alcohol while taking prescription pain medicine. Do not drive or use heavy machinery while taking prescription pain medicine. Incision care Follow instructions from your health care provider about how to take care of your incisions. Make sure you: ? Wash your hands with soap and water before you change your bandage (dressing). If soap and water are not available, use hand shelving supervisor. ? Change your dressing as told by your health care provider. ? Leave stitches (sutures), skin glue, or adhesive strips in place. These skin closures may need to stay in place for 2 weeks or longer. If adhesive strip edges start to loosen and curl up, you may trim the loose edges. Do not remove adhesive strips completely unless your health care provider tells you to do that. Check your incision areas every day for signs of infection. Check for: ? Redness, swelling, or pain. ? Fluid or blood. ? Warmth. ? Pus or a bad smell. Do not take baths, swim, or use a hot tub until your health care provider approves. Take showers instead of baths. Activity Return to your normal activities and diet as told by your health care provider. Ask your health care provider what activities are safe for you. Take rest breaks during the day as needed. Do not drive until your health care provider approves. General instructions Do not douche, use tampons, or have sexual intercourse until your health care provider says it is okay to do so. To prevent or treat constipation while you are taking prescription pain medicine, your health care provider may recommend that you: ? Take jjjf-rdy-geqpwbw or prescription medicines. ? Eat foods that are high in fiber, such as fresh fruits and vegetables, whole grains, and beans. ? Drink enough fluid to keep your urine clear or pale yellow. ? Limit foods that are high in fat and processed sugars, such as fried and sweet foods. Keep all follow-up visits as told by your health care provider. This is important. Contact a health care provider if: You have a fever. You feel nauseous or you vomit. You have pain when you urinate or have blood in your urine. You have a rash on your body. You have pain or redness where the IV was inserted. You have pain that is not relieved with medicine. You have signs of infection, such as: ? Redness, swelling, or pain around your incisions. ? Fluid or blood coming from your incisions. ? An incision that feels warm to the touch. ? Pus or a bad smell coming from your incisions. Get help right away if: You have chest pain or shortness of breath. You feel dizzy or light-headed. You have increasing abdominal pain that is not relieved with medicines. You have pain, swelling, or redness in your leg. Your incision is opening (the edges are not staying together). Summary After the procedure, it is common to have some pain in your abdomen. You will be given pain medicines to control the pain. Follow instructions from your health care provider about how to take care of your incisions. Do not douche, use tampons, or have sexual intercourse until your health care provider says it is okay to do so. Keep all follow-up visits as told by your health care provider. This is important. This information is not intended to replace advice given to you by your health care provider. Make sure you discuss any questions you have with your health care provider. Document Released: 06/17/2014 Document Revised: 08/09/2018 Document Reviewed: 10/16/2017 [employer] Patient Education [employer]. Laparoscopy, Care After This sheet gives you information about how to care for yourself after your procedure. Your health care provider may also give you more specific instructions. If you have problems or questions, contact your health care provider. What can I expect after the procedure? After the procedure, it is common to have: Mild discomfort in the abdomen. Sore throat. Women who have laparoscopy with pelvic examination may have mild cramping and fluid coming from the vagina for a few days after the procedure. Follow these instructions at home: Medicines Take rkoe-yip-tudqoqo and prescription medicines only as told by your health care provider. If you were prescribed an antibiotic medicine, take it as told by your health care provider. Do not stop taking the antibiotic even if you start to feel better. Driving Do not drive for 24 hours if you were given a medicine to help you relax (sedative) during your procedure. Do not drive or use heavy machinery while taking prescription pain medicine. Bathing Do not take baths, swim, or use a hot tub until your health care provider approves. You may take showers. Incision care Follow instructions from your health care provider about how to take care of your incisions. Make sure you: ? Wash your hands with soap and water before you change your bandage (dressing). If soap and water are not available, use hand shelving supervisor. ? Change your dressing as told by your health care provider. ? Leave stitches (sutures), skin glue, or adhesive strips in place. These skin closures may need to stay in place for 2 weeks or longer. If adhesive strip edges start to loosen and curl up, you may trim the loose edges. Do not remove adhesive strips completely unless your health care provider tells you to do that. Check your incision areas every day for signs of infection. Check for: ? Redness, swelling, or pain. ? Fluid or blood. ? Warmth. ? Pus or a bad smell. Activity Return to your normal activities as told by your health care provider. Ask your health care provider what activities are safe for you. Do not lift anything that is heavier than 10 lb (4.5 kg), or the limit that you are told, until your health care provider says that it is safe. General instructions To prevent or treat constipation while you are taking prescription pain medicine, your health care provider may recommend that you: ? Drink enough fluid to keep your urine pale yellow. ? Take ravk-chx-gygkcqu or prescription medicines. ? Eat foods that are high in fiber, such as fresh fruits and vegetables, whole grains, and beans. ? Limit foods that are high in fat and processed sugars, such as fried and sweet foods. Do not use any products that contain nicotine or tobacco, such as cigarettes and e-cigarettes. If you need help quitting, ask your health care provider. Keep all follow-up visits as told by your health care provider. This is important. Contact a health care provider if: You develop shoulder pain. You feel lightheaded or faint. You are unable to pass gas or have a bowel movement. You feel nauseous or you vomit. You develop a rash. You have redness, swelling, or pain around any incision. You have fluid or blood coming from any incision. Any incision feels warm to the touch. You have pus or a bad smell coming from any incision. You have a fever or chills. Get help right away if: You have severe pain. You have vomiting that does not go away. You have heavy bleeding from the vagina. Any incision opens. You have trouble breathing. You have chest pain. Summary After the procedure, it is common to have mild discomfort in the abdomen and a sore throat. Check your incision areas every day for signs of infection. Return to your normal activities as told by your health care provider. Ask your health care provider what activities are safe for you. This information is not intended to replace advice given to you by your health care provider. Make sure you discuss any questions you have with your health care provider. Document Released: 08/07/2016 Document Revised: 08/09/2018 Document Reviewed: 02/20/2018 [employer] Patient Education 2020 [employer]. Salpingectomy Salpingectomy, also called tubectomy, is the surgical removal of one of the fallopian tubes. The fallopian tubes are where eggs travel from the ovaries to the uterus. Removing one fallopian tube does not prevent you from becoming . It also does not cause problems with your menstrual periods. You may need this procedure if you: Have a fertilized egg that attaches to the fallopian tube (ectopic ), especially one that causes the tube to burst or tear (rupture). Have an infected fallopian tube. Have cancer of the fallopian tube or nearby organs. Have had an ovary removed due to a cyst or tumor. Have had your uterus removed. Are at high risk for ovarian cancer. There are three different methods that can be used for a salpingectomy: An open method that involves making one large incision in your abdomen. A laparoscopic method that involves using a thin, lighted tube with a tiny camera on the end (laparoscope) to help perform the procedure. The laparoscope will allow your surgeon to make several small incisions in the abdomen instead of one large incision. A robot-assisted method that involves using a computer to control surgical instruments that are attached to robotic arms. Tell a health care provider about: Any allergies you have. All medicines you are taking, including vitamins, herbs, eye drops, creams, and unhf-wqg-mrhfmja medicines. Any problems you or family members have had with anesthetic medicines. Any blood disorders you have. Any surgeries you have had. Any medical conditions you have. Whether you are or may be . What are the risks? Generally, this is a safe procedure. However, problems may occur, including: Infection. Bleeding. Allergic reactions to medicines. Blood clots in the legs or lungs. Damage to other structures or organs. What happens before the procedure? Medicines Ask your health care provider about: ? Changing or stopping your regular medicines. This is especially important if you are taking diabetes medicines or blood thinners. ? Taking medicines such as aspirin and ibuprofen. These medicines can thin your blood. Do not take these medicines unless your health care provider tells you to take them. ? Taking ocaw-qzt-ffspirw medicines, vitamins, herbs, and supplements. Staying hydrated Follow instructions from your health care provider about hydration, which may include: Up to 2 hours before the procedure you may continue to drink clear liquids, such as water, clear fruit juice, black coffee, and plain tea. Eating and drinking restrictions Follow instructions from your health care provider about eating and drinking, which may include: 8 hours before the procedure stop eating heavy meals or foods, such as meat, fried foods, or fatty foods. 6 hours before the procedure stop eating light meals or foods, such as toast or cereal. 6 hours before the procedure stop drinking milk or drinks that contain milk. 2 hours before the procedure stop drinking clear liquids. General instructions Do not use any products that contain nicotine or tobacco for at least 4 weeks before the procedure. These products include cigarettes, e-cigarettes, and chewing tobacco. If you need help quitting, ask your health care provider. You may have an exam or tests, such as: ? An electrocardiogram (ECG). ? A blood or urine test. Ask your health care provider what steps will be taken to help prevent infection. These may include: ? Removing hair at the surgery site. ? Washing skin with a germ-killing soap. ? Taking antibiotic medicine. Plan to have someone take you home from the hospital or clinic. If you will be going home right after the procedure, plan to have someone with you for 24 hours. What happens during the procedure? An IV will be inserted into one of your veins. You will be given one or more of the following: ? A medicine to help you relax (sedative). ? A medicine to make you fall asleep (general anesthetic). A thin tube (catheter) may be inserted through your urethra and into your bladder to drain urine during your procedure. Depending on the type of procedure you are having, one incision or several small incisions will be made in your abdomen. Your fallopian tube will be cut and removed from where it attaches to your uterus. Your blood vessels will be clamped and tied to prevent excess bleeding. The incisions in your abdomen will be closed with stitches (sutures), yadira, or skin glue. A bandage (dressing) may be placed over your incisions. The procedure may vary among health care providers and hospitals. What happens after the procedure? Your blood pressure, heart rate, breathing rate, and blood oxygen level will be monitored until you leave the hospital. You may continue to receive fluids and medicines through an IV. You may continue to have a catheter draining your urine. You may have to wear compression stockings. These stockings help to prevent blood clots and reduce swelling in your legs. You will be given pain medicine as needed. Do not drive for 24 hours if you were given a sedative during your procedure. Summary Salpingectomy is a surgical procedure to remove one of the fallopian tubes. The procedure may be done with an open incision, a laparoscope, or computer-controlled instruments. Depending on the type of procedure you are having, one incision or several small incisions will be made in your abdomen. Your blood pressure, heart rate, breathing rate, and blood oxygen level will be monitored until you leave the hospital. Plan to have someone take you home from the hospital or clinic. This information is not intended to replace advice given to you by your health care provider. Make sure you discuss any questions you have with your health care provider. Document Released: 01/13/2010 Document Revised: 08/18/2019 Document Reviewed: 08/18/2019 [employer] Patient Education 2020 [employer]. Ruptured Ectopic An ectopic is when a fertilized egg attaches (implants) outside of the uterus, usually in a fallopian tube. A ruptured ectopic is when the fallopian tube tears or bursts. This results in internal bleeding, intense abdominal pain, and sometimes, vaginal bleeding. Most ectopic pregnancies occur in the fallopian tube. In rare cases, it may occur on the ovary, intestine, pelvis, or cervix. An ectopic does not have the ability to develop into a normal, healthy baby. A ruptured ectopic can affect your ability to have children (fertility), depending on damage it causes to your reproductive organs. Ruptured ectopic is a medical emergency. If not treated immediately, it can lead to blood loss, shock, or even . What are the causes? Most ectopic pregnancies are caused by damage to the fallopian tubes. The damage prevents the fertilized egg from implanting in the uterus. In some cases, the cause may not be known. What increases the risk? You are at increased risk for an ectopic if: You have had a previous ectopic . You have had previous fallopian tube surgery. You have had previous surgery to have the fallopian tubes tied (tubal ligation). You have had infertility treatments or have a history of infertility. You have been exposed to ALLIE. ALLIE is a medicine that was used until 1970 and had effects on babies whose mothers took the medicine. You use an IUD (intrauterine device) for control. You use progestin-only oral contraception for control. You have a history of pelvic inflammatory disease (PID). You have a history of endometriosis. You smoke. You became sexually active before 18 years of age. You have multiple sexual partners. What are the signs or symptoms? Symptoms of a ruptured ectopic and internal bleeding may include: Sudden, severe pain in the abdomen and pelvis. Dizziness or fainting. Pain in the shoulder area. Vaginal bleeding. How is this diagnosed? This condition is diagnosed based on your medical history, symptoms, a physical exam, and tests, which may include: A test. An ultrasound. Measuring the levels of the hormone in the bloodstream. Taking a sample of tissue from the uterus (dilation and curettage, D&C). Surgery to visually examine the inside of the abdomen using a lighted tube (laparoscopy). How is this treated? This condition is treated with IV fluids and emergency surgery to remove the ectopic and repair the area where the rupture occured. If you have lost a lot of blood, you may need a blood transfusion. If you are Rh negative and your baby's father is Rh positive, or the Rh type of the father is unknown, you may receive a Rho (D) immune globulin shot. This is to prevent Rh problems in future pregnancies. Additional medicines may be given. Get help right away if: You are taking medicines to treat an ectopic and you develop symptoms of a rupture. These include: ? Fever or chills. ? Shoulder pain. ? Vaginal bleeding. ? Nausea and vomiting. ? Severe abdominal pain or cramping. ? Feeling light-headed or fainting. Summary An ectopic is when a fertilized egg attaches (implants) outside of the uterus, usually in a fallopian tube. A ruptured ectopic is when the fallopian tube tears or bursts. Ruptured ectopic is a medical emergency. If not treated immediately, it can lead to blood loss, shock, or even . This condition is treated with IV fluids and emergency surgery to remove the ectopic and repair the area where the rupture occured. If you have lost a lot of blood, you may need a blood transfusion. This information is not intended to replace advice given to you by your health care provider. Make sure you discuss any questions you have with your health care provider. Document Released: 08/24/2001 Document Revised: 08/09/2018 Document Reviewed: 11/14/2017 [employer] Patient Education 2020 [employer]. Ovarian Cyst An ovarian cyst is a fluid-filled sac that forms on an ovary. The ovaries are small organs that produce eggs in women. Various types of cysts can form on the ovaries. Some may cause symptoms and require treatment. Most ovarian cysts go away on their own, are not cancerous (are benign), and do not cause problems. Common types of ovarian cysts include: Functional (follicle) cysts. ? Occur during the menstrual cycle, and usually go away with the next menstrual cycle if you do not get . ? Usually cause no symptoms. Endometriomas. ? Are cysts that form from the tissue that lines the uterus (endometrium). ? Are sometimes called chocolate cysts because they become filled with blood that turns brown. ? Can cause pain in the lower abdomen during intercourse and during your period. Cystadenoma cysts. ? Develop from cells on the outside surface of the ovary. ? Can get very large and cause lower abdomen pain and pain with intercourse. ? Can cause severe pain if they twist or break open (rupture). Dermoid cysts. ? Are sometimes found in both ovaries. ? May contain different kinds of body tissue, such as skin, teeth, hair, or cartilage. ? Usually do not cause symptoms unless they get very big. Theca lutein cysts. ? Occur when too much of a certain hormone (human chorionic gonadotropin) is produced and overstimulates the ovaries to produce an egg. ? Are most common after having procedures used to assist with the conception of a baby (in vitro fertilization). What are the causes? Ovarian cysts may be caused by: Ovarian hyperstimulation syndrome. This is a condition that can develop from taking fertility medicines. It causes multiple large ovarian cysts to form. Polycystic ovarian syndrome (PCOS). This is a common hormonal disorder that can cause ovarian cysts, as well as problems with your period or fertility. What increases the risk? The following factors may make you more likely to develop ovarian cysts: Being overweight or obese. Taking fertility medicines. Taking certain forms of hormonal control. Smoking. What are the signs or symptoms? Many ovarian cysts do not cause symptoms. If symptoms are present, they may include: Pelvic pain or pressure. Pain in the lower abdomen. Pain during sex. Abdominal swelling. Abnormal menstrual periods. Increasing pain with menstrual periods. How is this diagnosed? These cysts are commonly found during a routine pelvic exam. You may have tests to find out more about the cyst, such as: Ultrasound. X-ray of the pelvis. CT scan. MRI. Blood tests. How is this treated? Many ovarian cysts go away on their own without treatment. Your health care provider may want to check your cyst regularly for 2 3 months to see if it changes. If you are in menopause, it is especially important to have your cyst monitored closely because menopausal women have a higher rate of ovarian cancer. When treatment is needed, it may include: Medicines to help relieve pain. A procedure to drain the cyst (aspiration). Surgery to remove the whole cyst. Hormone treatment or control pills. These methods are sometimes used to help dissolve a cyst. Follow these instructions at home: Take xhoy-hwi-vtwppno and prescription medicines only as told by your health care provider. Do not drive or use heavy machinery while taking prescription pain medicine. Get regular pelvic exams and Pap tests as often as told by your health care provider. Return to your normal activities as told by your health care provider. Ask your health care provider what activities are safe for you. Do not use any products that contain nicotine or tobacco, such as cigarettes and e-cigarettes. If you need help quitting, ask your health care provider. Keep all follow-up visits as told by your health care provider. This is important. Contact a health care provider if: Your periods are late, irregular, or painful, or they stop. You have pelvic pain that does not go away. You have pressure on your bladder or trouble emptying your bladder completely. You have pain during sex. You have any of the following in your abdomen: ? A feeling of fullness. ? Pressure. ? Discomfort. ? Pain that does not go away. ? Swelling. You feel generally ill. You become constipated. You lose your appetite. You develop severe acne. You start to have more body hair and facial hair. You are gaining weight or losing weight without changing your exercise and eating habits. You think you may be . Get help right away if: You have abdominal pain that is severe or gets worse. You cannot eat or drink without vomiting. You suddenly develop a fever. Your menstrual period is much heavier than usual. This information is not intended to replace advice given to you by your health care provider. Make sure you discuss any questions you have with your health care provider. Document Released: 08/27/2006 Document Revised: 11/25/2018 Document Reviewed: 01/28/2017 [employer] Patient Education 2020 [employer]. Additional Information VACCINATE! IT SAVES LIVES! Members of the community who have not yet received the COVID-19 vaccine and would like to receive it can visit one of [facility] vaccine clinics. There are many vaccine clinic locations within the [facility]. For locations and available times, please visit [email or web address].o ma[place].[email or web address] It is important to note that some COVID mobile vaccine clinics are held outdoors and may be canceled in rainy or stormy conditions. To learn more about pediatric vaccinations (ages 5-11), we invite you to visit the [facility] webpage. [email or web address] To learn more about the COVID-19 vaccine, we invite you to visit the CDC website for a list of frequently asked questions.https://www.cdc.gov/co ronavirus/2019-ncov/vaccines/faq .html [facility] Patient Portal Access Instructions: Stay connected with your healthcare team and access your personal medical information anytime with the [facility] Patient Portal. Please follow the directions below to create your [facility] account: 1.Access the email account you provided upon registration to the hospital/physician office.2.Look for an invitation email from [facility].3.Open the email and access the invitation link: Accept Invitation to [facility].4.Fill in the required carson to create your account. To access your account, visit [email or web address]. Click the blue button labeled Access Patient Portal and then log in with the username and password that you created in the steps above. You will be able to view your test results, lab results, a summary of your visits, upcoming appointments and more. There is also a convenient messaging option where you can send secure messages to your provider. In addition, you will have the ability to download any documents or summaries to your computer and/or send the information securely to a physician. Remember that your healthcare information is confidential, so carefully consider who you will allow to register on the [facility] Patient Portal for access to your information. You can also access [facility] on the [facility] hay[facility]. Simply click on Patient Portal and then log into your account. If you would like to receive a full copy of your medical records, please contact the [facility] Medical Records Department by calling [phone], Sunday through Sunday between 8 a.m. and 4:30 p.m. HOW TO SAFELY DISPOSE OF PRESCRIPTION MEDICATIONS Please use one of the following methods to safely dispose of your unused medications. 1.Use a drug disposal kit: the drug disposal pouch allows you to safely discard your old and unused drugs. Ask your nurse to give you one when you are discharged.2.Visit a local take-back location: Many local pharmacies and police departments have programs that collect old and unwanted prescription drugs. Call your local pharmacy or go to http://Fishlabs/5G6Tc0f to find one close to you.3.Make use of household items: Use cat litter or old coffee grounds to dispose medications if other options are not available. Mix your drugs with these household products, seal them in an airtight container and throw it into the garbage. Call [facility]: [phone] to be sure your drugs can be disposed of in this way. Some medicines may require a different approach.4.Never flush your medications down the toilet. IF YOU HAVE BEEN PRESCRIBED AN OPIOID FOR PAIN If you have been prescribed an opioid (such as hydrocodone, oxycodone or morphine), it is critical to understand the possible side effects and risks of opioid pain medications. Even when taken as directed, opioids can have several side effects including: Tolerance, meaning you might need to take more of a medication for the same pain relief. Nausea, vomiting and/or constipation. Sleepiness, dizziness, dry mouth, confusion, depression or itching. Physical dependence, meaning you have withdrawal symptoms when a medication is stopped, can develop within a few days. KNOW YOUR RESPONSIBILITIES It is important to know exactly how much and how often to take the opioid pain medications you are prescribed. Never take opioids in higher amounts or more often than prescribed. Do not combine opioids with alcohol or other drugs that cause drowsiness, such as benzodiazepines, also known as benzos, including diazepam and alprazolam, muscle relaxants or sleep aids. Never sell or share prescription opioids. This is illegal. Store opioids in a secure place and out of reach of others (including children, family, friends and visitors). The last page of this document has been signed and retained as a CHART COPY. Signatures Patient Education Materials Ovarian Cystectomy, Care After Diagnostic Laparoscopy, Care After Salpingectomy Ruptured Ectopic Ovarian Cyst Medication Leaflets My discharge plan and instructions have been reviewed and explained to me and I,SONDRA SERRANO understand my current condition and have read and understand these discharge instructions. I have received a written copy of the plan/instructions. If I have questions, I am aware that I should contact my doctor. 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 Mental status: at preoperative baseline, alert & oriented x 4. Respiratory function: lungs are clear to auscultation. Respiratory support: none. CV function: Normal rate. Cardiovascular support: none. Pain. Nausea status: denies nausea. Postoperative hydration status: within normal limits. Digitally Signed by MADHAV BROWN on 02/12/2023 10:53 PM [facility] 02-12-2023 Anesthesiology Consult note Patient: SONDRA SERRANO Age: 37 years Sex: Female : 1985 Associated Diagnoses: None Author: MADHAV BROWN Preoperative Information Time of last food or liquid consumption: 02/12/2023 13:30:00 Anesthesia history Patient's history: negative. Family's history: negative. Health Status Allergies: Allergic Reactions (Selected) Severity Not Documented Tape- No reactions were documented., Allergies (1) ActiveReaction TapeNone Documented Current medications: (Selected) Inpatient Medications Ordered Bolus NS 1000 mL: 1,000 mL, IV Bolus, Once Zofran: 4 mg, 2 mL, IV Push, Once morphine: 4 mg, 1 mL, IV Push, Once Prescriptions Prescribed Zofran 4 mg oral tablet: 4 mg, 1 tab(s), Oral, q6h, for 5 day(s), 20 tab(s), 0 Refill(s) Documented Medications Documented LORazepam 0.5 mg oral tablet: 0.5 mg, 1 tab(s), Oral, BID, PRN: as needed for anxiety, 0 Refill(s) acetaminophen-oxyCODONE 325 mg-5 mg oral tablet: 1 tab(s), Oral, q6h, PRN: for pain, 12 tab(s), 0 Refill(s) ibuprofen 600 mg oral tablet: 600 mg, 1 tab(s), Oral, q6h, 40 tab(s), 0 Refill(s) oxyCODONE 5 mg oral tablet ( IMMEDIATE release ): 5 mg, 1 tab(s), Oral, q6h, PRN: for pain, 12 tab(s), 0 Refill(s) venlafaxine 150 mg oral capsule, extended release: 150 mg, 1 cap(s), Oral, qDay, 90 cap(s), 0 Refill(s), Medications (3) Active Scheduled: (3) morphine 4 mg/mL 1mL INJ 4 mg 1 mL, IV Push, Once Normal Saline Injection 1000 mL * Bolus * 1,000 mL, IV Bolus, Once ondansetron 2 mg/ 1 mL 2 mL INJ 4 mg 2 mL, IV Push, Once Continuous: (0) PRN: (0) Problem list: Medical Anxiety / SNOMED CT 91749862 / Confirmed Ectopic / SNOMED CT 29710463 / Confirmed Hypertension / SNOMED CT 45363270 / Confirmed Kidney stone / SNOMED CT [id number] / Confirmed Ovarian cyst / SNOMED CT [id number] 65AC / Confirmed Possible , not confirmed / SNOMED CT [id number] E0BD / Possible, Active Problems (6) Anxiety Ectopic Hypertension Kidney stone Ovarian cyst Possible , not confirmed Histories Past Medical History: Active Anxiety (23227271) Hypertension (85559341) Ovarian cyst ([id number] 165AC), cerebral pseudotumor, Family History: Patient was adopted. History is unknown. Procedure history: section (64089603). Cholecystectomy (88211725). Hernia (632588441). Social History Social & Psychosocial Habits Alcohol 08/18/2017Risk Assessment: Denies Alcohol Use 03/14/2021 Use: Never Substance Abuse 08/18/2017Risk Assessment: Denies Substance Abuse 03/14/2021 Use: Never Tobacco 10/18/2018 Tobacco Use: Never (less than 100 in l . Physical Examination Vital Signs 02/12/2023 17:27 EDT Temperature Oral 36.7 DegC Peripheral Pulse Rate 79 bpm Respiratory Rate 18 br/min Systolic Blood Pressure Non-Invasive 148 mmHg HI Diastolic Blood Pressure Non-Invasive 104 mmHg >HHI Vital Signs(last 24 hrs) Last Charted Temp Oral36.7 DegC (FEB 12 17:27) Resp Rate 18 br/min (FEB 12 17:27) SBPH 148mmHg (FEB 12 17:27) DBPC 104mmHg (FEB 12 17:27) Measurements from flowsheet : Measurements 02/12/2023 17:27 EDT Height 167.6 cm Admission Weight 106.8 kg Julian Body Weight 59.26 kg Pain assessment: Pain Assessment 02/12/2023 17:27 EDT Primary Pain Location Abdomen Abdominal Pain Location RLQ Primary Pain Intensity 8 Primary Pain Quality Sharp Primary Pain Aggravating Factors Movement Pain Scale Type 0-10 Pain scale . General: Alert and oriented. Airway: Normal temporomandibular joint mobility. Mallampati classification: II (soft palate, fauces, uvula visible). Head: Normocephalic. Dentition Evaluation: Intact. Neck: Supple. Respiratory: Lungs are clear to auscultation. Cardiovascular: Normal rate. Heart Sounds: Normal. Gastrointestinal: Soft. Musculoskeletal Normal range of motion. Integumentary: Intact. Neurologic: Alert. Review / Management Results review: No qualifying data available , Lab results 02/12/2023 19:14 EDT ED Note-Physician ED/Urgent Care Provider Note 02/12/2023 19:12 EDT Forearm Right 02/12/2023 20 gauge Peripheral IV Activity: Unsuccessful 02/12/2023 18:39 EDT Urine Color Yellow Urine Description Medium amount, Clear Status Yes History of Fall in Last 3 Months Patel No Thoughts of Harming Others - History No Thoughts of Suicide - History No Domestic Concerns Denies HT Control,Supervise,Monitor Denies qSOFA Altered Mental Status GCS < 15 No qSOFA Respiratory Rate >= 22 No qSOFA Systolic BP <= 100 No qSOFA Score 0 Advanced Directives No - refuses information Individuals Taught Patient Learning Readiness Willing to learn Barriers to Learning None evident Teaching Method Printed materials Teaching Evaluation Verbalizes/Nonverbally indicates understanding Chief Complaint seen here had outpt u/s to rule out ectopic became dizzy with abd pain wanted to come to ed Place Where Injury/Illness Occurred Other: u/s Information Given by Patient Belongings At Bedside Bra, Pants, Shirt, Shoes, Socks, Other: nose ring Anticoagulants Taken In Past 6 Wks. No No Anesthesia/Transfusions Prior anesthesia ED Assessment Note - Nursing ED Patient History Form 02/12/2023 18:13 EDT [facility] Note (Modified) 02/12/2023 17:27 EDT Height 167.6 cm Admission Weight 106.8 kg Julian Body Weight 59.26 kg Temperature Oral 36.7 DegC Peripheral Pulse Rate 79 bpm Respiratory Rate 18 br/min Systolic Blood Pressure Non-Invasive 148 mmHg HI Diastolic Blood Pressure Non-Invasive 104 mmHg >HHI Primary Pain Location Abdomen Abdominal Pain Location RLQ Primary Pain Intensity 8 Primary Pain Quality Sharp Primary Pain Aggravating Factors Movement Pain Scale Type 0-10 Pain scale Respirations Unlabored Respiratory Pattern Regular Oxygen Therapy Room air Oxygen Saturation 100 % Abdomen Description Non-distended, Soft Bowel Sounds All Quadrants Present Urinary Elimination Voiding, no difficulties Level of Consciousness Alert Eye Opening Response Sinai Spontaneously Best Motor Response Sinai Obeys simple commands Best Verbal Response Sinai Oriented Eduin Coma Score 15 Violence Risk Confused No Violence Risk Irritable No Violence Risk Boisterous No Violence Risk Verbal Threats No Violence Risk Physical Threats No Violence Risk Attacking Objects No Violence Risk Predictor Score 0 Affect/Behavior Cooperative, Flat Orientation Oriented x 4 Wish To Be No Suicidal Thoughts No Ever Made Plans to End Your Life No Suicide Severity Rating No problems noted Infectious Disease Symptoms Patient states no symptoms Infectious Disease Recent Exposure No Alcohol and Drug Use No Employee of Institutional Living No Health Care Employee No History of Exposure to TB No History of Positive Chest X-Ray for TB No History of Positive TB Skin Test No Homeless No Known Immunosuppression No Recent Immigrant No Resident of Institutional Living No Bloody Sputum No Fatigue No Fever No Loss of Appetite No Night Sweats No Persistent Cough > 3 Weeks No Weight Loss No Preferred Written Language Pakistani Preferred Spoken Language [employer] ED [employer] Tracking Acuity 3 Mode of Transfer Private vehicle Standard Safety ID band on, Call device within reach, Bed in low position, Wheels locked Prev Test Positive/Diagnosis w/COVID-19 No Current Quarantine/Isolated any Illness No Any Contact with Sick Animals/Birds No Traveled Anywhere in Last 30 Days No ED Triage Adults ED Triage Adults 02/12/2023 16:57 EDT US OB<14 weeks w/ TV US OB < 14 WEEKS W/TV 02/12/2023 13:40 EDT hCG, quantitative 877.5 mIU/mL NA 02/12/2023 10:51 EDT CSummary CSUMMARY . Assessment and Plan [place] [employer]esthesi[employer] (ASA) physical status classification: Class III, E. Anesthetic Preoperative Plan Premedication: intravenous. Anesthetic technique: General. Induction: intravenously. Maintenance airway: Oral endotracheal tube. Postoperative pain management: Per surgeon. Risks discussed: nausea, vomiting, headache, sore throat, dental injury, hypotension, allergic reaction, serious complications. Informed consent: signed by patient. Digitally Signed by MADHAV BROWN on 02/12/2023 08:42 PM [facility] 02-12-2023 Evaluation + Plan note Diagnostic Tests PendingBasic Metabolic Panel 02/12/23Complete Blood Count 02/12/23 [facility] 02-07-2023 Hospital Discharg e instructions Patient Education 02/07/2023 19:27:55 Methotrexate for Ectopic Methotrexate for Ectopic An ectopic means the baby is growing in the outside of the uterus, most commonly in the fallopian tube. The fetus can't survive in the fallopian tube. There is no way to save the fetus in this situation. An ectopic is a very serious condition. It can lead to severe internal bleeding as the growing fetus tears the fallopian tube. It can also threaten the life of the mother. Methotrexate is a medicine given for ectopic . The medicine stops the fetus from growing. The mother's body then usually absorbs the tissue. Methotrexate is an alternative to surgery. The advantage of this treatment is that it avoids the risks of surgery. These risks include bleeding, infection, injury to the body, and the side effects of anesthesia. The surgery removes the fetus from the fallopian tube or removes the fallopian tube itself. If surgery removes the fetus only, you may have scarring of the fallopian tube and infertility. Methotrexate is given by injection. After treatment, you may have mild abdominal pain or cramping. Some women also have nausea and vomiting, diarrhea, or fatigue. You will have your blood taken several times in the weeks after the methotrexate injection. This is to make sure your hormone level (HCG) is getting lower. This shows that the has ended and the fetus is no longer growing. It may take about 4 weeks for your level to drop to zero. Most women need only 1 injection. But you may need more than 1, depending on your situation. Home care The following guidelines will help you care for yourself at home: You may resume normal activities if you don t have heavy bleeding or pain. To prevent infection during treatment and until the bleeding completely stops: oDon t have sex for as long as your healthcare provider tells you. oUse sanitary pads instead of tampons. oDon t douche. Don t use alcohol, any vitamins with folic acid (vitamin B9), or penicillin until your HCG level is back to zero. Don t take aspirin or other anti-inflammatory medicines, such as ibuprofen and naproxen, for 1 week after methotrexate treatment or until your healthcare provider says it s OK. You may use acetaminophen to control pain, unless another pain relieving medicine was prescribed. Note: If you have chronic liver disease, talk with your provider before using these medicines. Avoid gas-producing foods, such as beans and cabbage. These might make abdominal pain worse. Avoid the sun during treatment. Methotrexate may cause you to be sensitive to the sun. Use control for 4 to 6 months after treatment or as long as your healthcare provider tells you to. If you feel sadness or grief after loss, it may help to talk about your feelings with family and friends, or with a counselor. Follow-up care Follow up with your healthcare provider, or as advised for repeat HCG blood testing. When to seek medical advice Call your healthcare provider right away if any of these occur: Pain in your lower abdomen that gets worse Heavy vaginal bleeding (soaking 1 new pad an hour over 3 hours) Repeated vomiting or unable to keep down fluids due to nausea Dizziness, weakness, or fainting Fever of 100.4 F (38 C) or higher, or as directed by your healthcare provider [phone] [employer]. [address] [place] [address], [place] [address]. All rights reserved. This information is not intended as a substitute for professional medical care. Always follow your healthcare professional's instructions. Follow Up Care 02/07/2023 16:56:38 With:SEEMA BULLOCK DO Address: [address] [place] [phone] When:1-2 days [facility] 02-07-2023 Note Discharge Instructions Thank you for allowing [facility] to assist you with your healthcare needs. The following is important discharge information regarding your hospital visit. Diagnosis from Today's Visit Ectopic Abdominal pain Abdominal pain What to Do Next Instructions from Your Care Team As discussed, return to the lab tomorrow to have a repeat blood level drawn. You need to follow-up closely with Dr. Bullock. Turn immediately if worsening severe pain heavy bleeding or other concerning symptoms. No qualifying data available. Post Acute Orders No qualifying data available. You Need to Schedule the Following Appointments Follow Up with SEEMA BULLOCK DO When Within 1-2 days Where: [address] [facility] [address] [place] [phone]- [phone] Allergies Tape Medications Please ask your primary doctor or pharmacist before taking any other medication not listed, including over the counter drugs, herbal medications, vitamins and or supplements as they may interact with your home medications. What How Much When Why Instructions Last Dose New oxyCODONE (oxyCODONE 5 mg oral tablet ( IMMEDIATE release )) 1 tab(s) by mouth Every 6 hours Ectopic Abdominal pain Duration: 2 Days Printed Prescription Unchanged ondansetron (Zofran 4 mg oral tablet) 1 tab(s) by mouth Every 6 hours Duration: 5 Days Please take this list to your next doctor s visit. Bring all medications you take, including over the counter medications, herbals and other supplements with you to your doctor s visit. Patients and families are reminded to discard old lists and to update any records with all medication providers or retail pharmacies. Medication Leaflets ondansetron (oral) (on SHELDON se karen) Beverley Lowery Zuplenz What is the most important information I should know about ondansetron? You should not use ondansetron if you are also using apomorphine (Apokyn). What is ondansetron? Ondansetron blocks the actions of chemicals in the body that can trigger nausea and vomiting. Ondansetron is used to prevent nausea and vomiting that may be caused by surgery, cancer chemotherapy, or radiation treatment. Ondansetron may be used for purposes not listed in this medication guide. What should I discuss with my health care provider before taking ondansetron? You should not use ondansetron if: you are also using apomorphine (Apokyn); or you are allergic to ondansetron or similar medicines (dolasetron, granisetron, palonosetron). To make sure ondansetron is safe for you, tell your doctor if you have: liver disease; an electrolyte imbalance (such as low levels of potassium or magnesium in your blood); congestive heart failure, slow heartbeats; a personal or family history of long QT syndrome; or a blockage in your digestive tract (stomach or intestines). Ondansetron is not expected to harm an unborn baby. Tell your doctor if you are . It is not known whether ondansetron passes into breast milk or if it could harm a nursing baby. Tell your doctor if you are breast-feeding a baby. Ondansetron is not approved for use by anyone younger than 4 years old. Ondansetron orally disintegrating tablets may contain phenylalanine. Tell your doctor if you have phenylketonuria (PKU). How should I take ondansetron? Follow all directions on your prescription label. Do not take this medicine in larger or smaller amounts or for longer than recommended. Ondansetron can be taken with or without food. The first dose of ondansetron is usually taken before the start of your surgery, chemotherapy, or radiation treatment. Follow your doctor's dosing instructions very carefully. Take the ondansetron regular tablet with a full glass of water. To take the orally disintegrating tablet (Zofran ODT): Keep the tablet in its blister pack until you are ready to take it. Open the package and peel back the foil. Do not push a tablet through the foil or you may damage the tablet. Use dry hands to remove the tablet and place it in your mouth. Do not swallow the tablet whole. Allow it to dissolve in your mouth without chewing. Swallow several times as the tablet dissolves. To use ondansetron oral soluble film (strip) (Zuplenz): Keep the strip in the foil pouch until you are ready to use the medicine. Using dry hands, remove the strip and place it on your tongue. It will begin to dissolve right away. Do not swallow the strip whole. Allow it to dissolve in your mouth without chewing. Swallow several times after the strip dissolves. If desired, you may drink liquid to help swallow the dissolved strip. Wash your hands after using Zuplenz. Measure liquid medicine with the dosing syringe provided, or with a special dose-measuring spoon or medicine cup. If you do not have a dose-measuring device, ask your pharmacist for one. Store at room temperature away from moisture, heat, and light. Store liquid medicine in an upright position. What happens if I miss a dose? Take the missed dose as soon as you remember. Skip the missed dose if it is almost time for your next scheduled dose. Do not take extra medicine to make up the missed dose. What happens if I overdose? Seek emergency medical attention or call the Poison Help line at . Overdose symptoms may include sudden loss of vision, severe constipation, feeling light-headed, or fainting. What should I avoid while taking ondansetron? Ondansetron may impair your thinking or reactions. Be careful if you drive or do anything that requires you to be alert. What are the possible side effects of ondansetron? Get emergency medical help if you have signs of an allergic reaction: rash, hives; fever, chills, difficult breathing; swelling of your face, lips, tongue, or throat. Call your doctor at once if you have: severe constipation, stomach pain, or bloating; headache with chest pain and severe dizziness, fainting, fast or pounding heartbeats; fast or pounding heartbeats; jaundice (yellowing of the skin or eyes); blurred vision or temporary vision loss (lasting from only a few minutes to several hours); high levels of serotonin in the body--agitation, hallucinations, fever, fast heart rate, overactive reflexes, nausea, vomiting, diarrhea, loss of coordination, fainting. Common side effects may include: diarrhea or constipation; headache; drowsiness; or tired feeling. This is not a complete list of side effects and others may occur. Call your doctor for medical advice about side effects. You may report side effects to FDA at 6-986-QUL-0064. What other drugs will affect ondansetron? Ondansetron can cause a serious heart problem, especially if you use certain medicines at the same time, including antibiotics, antidepressants, heart rhythm medicine, antipsychotic medicines, and medicines to treat cancer, malaria, HIV or AIDS. Tell your doctor about all medicines you use, and those you start or stop using during your treatment with ondansetron. Taking ondansetron while you are using certain other medicines can cause high levels of serotonin to build up in your body, a condition called 'serotonin syndrome,' which can be fatal. Tell your doctor if you also use: medicine to treat depression; medicine to treat a psychiatric disorder; a narcotic (opioid) medication; or medicine to prevent nausea and vomiting. This list is not complete and many other drugs can interact with ondansetron. This includes prescription and vlvd-pot-ovugzqg medicines, vitamins, and herbal products. Give a list of all your medicines to any healthcare provider who treats you. Where can I get more information? Your pharmacist can provide more information about ondansetron. Remember, keep this and all other medicines out of the reach of children, never share your medicines with others, and use this medication only for the indication prescribed. Every effort has been made to ensure that the information provided by [employer]. ('[employer]') is accurate, up-to-date, and complete, but no guarantee is made to that effect. Drug information contained herein may be time sensitive. [employer] information has been compiled for use by healthcare practitioners and consumers in the [place] and therefore [employer] does not warrant that uses outside of the [place] are appropriate, unless specifically indicated otherwise. [employer] drug information does not endorse drugs, diagnose patients or recommend therapy. [employer] drug information is an informational resource designed to assist licensed healthcare practitioners in caring for their patients and/or to serve consumers viewing this service as a supplement to, and not a substitute for, the expertise, skill, knowledge and judgment of healthcare practitioners. The absence of a warning for a given drug or drug combination in no way should be construed to indicate that the drug or drug combination is safe, effective or appropriate for any given patient. [employer] does not assume any responsibility for any aspect of healthcare administered with the aid of information [employer] provides. The information contained herein is not intended to cover all possible uses, directions, precautions, warnings, drug interactions, allergic reactions, or adverse effects. If you have questions about the drugs you are taking, check with your doctor, nurse or pharmacist. Copyright 4191-3995 [employer]. Version: 13.. Revision Date: 06/30/2016. oxycodone (ox i KOE done) Oxaydo, OxyCONTIN, Oxyfast, OxyIR, Roxicodone, Xtampza ER What is the most important information I should know about oxycodone? MISUSE OF OPIOID MEDICINE CAN CAUSE ADDICTION, OVERDOSE, OR . Keep the medication in a place where others cannot get to it. Taking opioid medicine during may cause life-threatening withdrawal symptoms in the . Fatal side effects can occur if you use opioid medicine with alcohol, or with other drugs that cause drowsiness or slow your breathing. What is oxycodone? Oxycodone is an opioid pain medication used to treat moderate to severe pain. The extended-release form of oxycodone is for kdwrul-jgi-oeuqo treatment of pain and should not be used on an as-needed basis for pain. Oxycodone may also be used for purposes not listed in this medication guide. What should I discuss with my healthcare provider before using oxycodone? You should not use oxycodone if you are allergic to it, or if you have: severe asthma or breathing problems; or a blockage in your stomach or intestines. You should not use oxycodone unless you are already using a similar opioid medicine and are tolerant to it. Most brands of oxycodone are not approved for use in people under 18. OxyContin should not be given to a child younger than 11 years old. Tell your doctor if you have ever had: breathing problems, sleep apnea; a head injury, or seizures; drug or alcohol addiction, or mental illness; liver or kidney disease; urination problems; or problems with your gallbladder, pancreas, or thyroid. If you use opioid medicine while you are , your baby could become dependent on the drug. This can cause life-threatening withdrawal symptoms in the baby after it is born. Babies born dependent on opioids may need medical treatment for several weeks. Ask a doctor before using opioid medicine if you are . Tell your doctor if you notice severe drowsiness or slow breathing in the nursing baby. How should I use oxycodone? Follow the directions on your prescription label and read all medication guides. Never use oxycodone in larger amounts, or for longer than prescribed. Tell your doctor if you feel an increased urge to take more of this medicine. Never share opioid medicine with another person, especially someone with a history of drug abuse or addiction. MISUSE CAN CAUSE ADDICTION, OVERDOSE, OR . Keep the medication in a place where others cannot get to it. Selling or giving away opioid medicine is against the law. Stop taking all other asrjbe-zhv-ckbyp opioid pain medicines when you start taking extended-release oxycodone. Take oxycodone with food. Swallow the capsule or tablet whole to avoid exposure to a potentially fatal overdose. Do not crush, chew, break, open, or dissolve. If you cannot swallow a capsule whole, open it and sprinkle the medicine into a spoonful of pudding or applesauce. Swallow the mixture right away without chewing. Do not save it for later use. Never crush or break an oxycodone pill to inhale the powder or mix it into a liquid to inject the drug into your vein. This can cause in . Measure liquid medicine carefully. Use the dosing syringe provided, or use a medicine dose-measuring device (not a kitchen spoon). You should not stop using oxycodone suddenly. Follow your doctor's instructions about tapering your dose. Store at room temperature, away from heat, moisture, and light. Keep track of your medicine. Oxycodone is a drug of abuse and you should be aware if anyone is using your medicine improperly or without a prescription. Do not keep leftover opioid medication. Just one dose can cause in someone using this medicine accidentally or improperly. Ask your pharmacist where to locate a drug take-back disposal program. If there is no take-back program, flush the unused medicine down the toilet. What happens if I miss a dose? Since oxycodone is used for pain, you are not likely to miss a dose. Skip any missed dose if it is almost time for your next dose. Do not use two doses at one time. What happens if I overdose? Seek emergency medical attention or call the Poison Help line at . An opioid overdose can be fatal, especially in a child or other person using the medicine without a prescription. Overdose symptoms may include severe drowsiness, pinpoint pupils, slow breathing, or no breathing. Your doctor may recommend you get naloxone (a medicine to reverse an opioid overdose) and keep it with you at all times. A person caring for you can give the naloxone if you stop breathing or don't wake up. Your caregiver must still get emergency medical help and may need to perform CPR (cardiopulmonary resuscitation) on you while waiting for help to arrive. Anyone can buy naloxone from a pharmacy or local health department. Make sure any person caring for you knows where you keep naloxone and how to use it. What should I avoid while using oxycodone? Do not drink alcohol. Dangerous side effects or could occur. Avoid driving or operating machinery until you know how oxycodone will affect you. Dizziness or severe drowsiness can cause falls or other accidents. Avoid medication errors. Always check the brand and strength of oxycodone you get from the pharmacy. What are the possible side effects of oxycodone? Get emergency medical help if you have signs of an allergic reaction: hives; difficult breathing; swelling of your face, lips, tongue, or throat. Opioid medicine can slow or stop your breathing, and may occur. A person caring for you should give naloxone and/or seek emergency medical attention if you have slow breathing with long pauses, blue colored lips, or if you are hard to wake up. Call your doctor at once if you have: noisy breathing, sighing, shallow breathing, breathing that stops during sleep; a slow heart rate or weak pulse; a light-headed feeling, like you might pass out; confusion, unusual thoughts or behavior; seizure (convulsions); low cortisol levels-- nausea, vomiting, loss of appetite, dizziness, worsening tiredness or weakness; or high levels of serotonin in the body--agitation, hallucinations, fever, sweating, shivering, fast heart rate, muscle stiffness, twitching, loss of coordination, nausea, vomiting, diarrhea. Serious breathing problems may be more likely in older adults and in those who are debilitated or have wasting syndrome or chronic breathing disorders. Common side effects may include: drowsiness, headache, dizziness, tiredness; or constipation, stomach pain, nausea, vomiting. This is not a complete list of side effects and others may occur. Call your doctor for medical advice about side effects. You may report side effects to FDA at 2-451-JDH-3922. What other drugs will affect oxycodone? You may have breathing problems or withdrawal symptoms if you start or stop taking certain other medicines. Tell your doctor if you also use an antibiotic, antifungal medication, heart or blood pressure medication, seizure medication, or medicine to treat HIV or hepatitis C. Opioid medication can interact with many other drugs and cause dangerous side effects or . Be sure your doctor knows if you also use: cold or allergy medicines, bronchodilator asthma/COPD medication, or a diuretic ('water pill'); medicines for motion sickness, irritable bowel syndrome, or overactive bladder; other opioids--opioid pain medicine or prescription cough medicine; a sedative like Valium--diazepam, alprazolam, lorazepam, Xanax, Klonopin, Versed, and others; drugs that make you sleepy or slow your breathing--a sleeping pill, muscle relaxer, medicine to treat mood disorders or mental illness; or drugs that affect serotonin levels in your body--a stimulant, or medicine for depression, Parkinson's disease, migraine headaches, serious infections, or nausea and vomiting. This list is not complete and many other drugs may affect oxycodone. This includes prescription and wram-afj-pecrwxh medicines, vitamins, and herbal products. Not all possible drug interactions are listed here. Where can I get more information? Your pharmacist can provide more information about oxycodone. Remember, keep this and all other medicines out of the reach of children, never share your medicines with others, and use this medication only for the indication prescribed. Every effort has been made to ensure that the information provided by [employer]. [employer]') is accurate, up-to-date, and complete, but no guarantee is made to that effect. Drug information contained herein may be time sensitive. CNZZ information has been compiled for use by healthcare practitioners and consumers in the [place] and therefore CNZZ does not warrant that uses outside of the [place] are appropriate, unless specifically indicated otherwise. [facility] drug information does not endorse drugs, diagnose patients or recommend therapy. [facility] drug information is an informational resource designed to assist licensed healthcare practitioners in caring for their patients and/or to serve consumers viewing this service as a supplement to, and not a substitute for, the expertise, skill, knowledge and judgment of healthcare practitioners. The absence of a warning for a given drug or drug combination in no way should be construed to indicate that the drug or drug combination is safe, effective or appropriate for any given patient. CNZZ does not assume any responsibility for any aspect of healthcare administered with the aid of information CNZZ provides. The information contained herein is not intended to cover all possible uses, directions, precautions, warnings, drug interactions, allergic reactions, or adverse effects. If you have questions about the drugs you are taking, check with your doctor, nurse or pharmacist. Copyright 8469-5983 [employer]. Version: 14.02. Revision Date: 10/07/2020. Education Materials Methotrexate for Ectopic An ectopic means the baby is growing in the outside of the uterus, most commonly in the fallopian tube. The fetus can't survive in the fallopian tube. There is no way to save the fetus in this situation. An ectopic is a very serious condition. It can lead to severe internal bleeding as the growing fetus tears the fallopian tube. It can also threaten the life of the mother. Methotrexate is a medicine given for ectopic . The medicine stops the fetus from growing. The mother's body then usually absorbs the tissue. Methotrexate is an alternative to surgery. The advantage of this treatment is that it avoids the risks of surgery. These risks include bleeding, infection, injury to the body, and the side effects of anesthesia. The surgery removes the fetus from the fallopian tube or removes the fallopian tube itself. If surgery removes the fetus only, you may have scarring of the fallopian tube and infertility. Methotrexate is given by injection. After treatment, you may have mild abdominal pain or cramping. Some women also have nausea and vomiting, diarrhea, or fatigue. You will have your blood taken several times in the weeks after the methotrexate injection. This is to make sure your hormone level (HCG) is getting lower. This shows that the has ended and the fetus is no longer growing. It may take about 4 weeks for your level to drop to zero. Most women need only 1 injection. But you may need more than 1, depending on your situation. Home care The following guidelines will help you care for yourself at home: You may resume normal activities if you don t have heavy bleeding or pain. To prevent infection during treatment and until the bleeding completely stops: oDon t have sex for as long as your healthcare provider tells you. oUse sanitary pads instead of tampons. oDon t douche. Don t use alcohol, any vitamins with folic acid (vitamin B9), or penicillin until your HCG level is back to zero. Don t take aspirin or other anti-inflammatory medicines, such as ibuprofen and naproxen, for 1 week after methotrexate treatment or until your healthcare provider says it s OK. You may use acetaminophen to control pain, unless another pain relieving medicine was prescribed. Note: If you have chronic liver disease, talk with your provider before using these medicines. Avoid gas-producing foods, such as beans and cabbage. These might make abdominal pain worse. Avoid the sun during treatment. Methotrexate may cause you to be sensitive to the sun. Use control for 4 to 6 months after treatment or as long as your healthcare provider tells you to. If you feel sadness or grief after loss, it may help to talk about your feelings with family and friends, or with a counselor. Follow-up care Follow up with your healthcare provider, or as advised for repeat HCG blood testing. When to seek medical advice Call your healthcare provider right away if any of these occur: Pain in your lower abdomen that gets worse Heavy vaginal bleeding (soaking 1 new pad an hour over 3 hours) Repeated vomiting or unable to keep down fluids due to nausea Dizziness, weakness, or fainting Fever of 100.4 F (38 C) or higher, or as directed by your healthcare provider [id number] [employer]. [address] [place] [address], [place] [address]. All rights reserved. This information is not intended as a substitute for professional medical care. Always follow your healthcare professional's instructions. Additional Information VACCINATE! IT SAVES LIVES! Members of the community who have not yet received the COVID-19 vaccine and would like to receive it can visit one of [facility] vaccine clinics. There are many vaccine clinic locations within the [facility]. For locations and available times, please visit [email or web address] It is important to note that some COVID mobile vaccine clinics are held outdoors and may be canceled in rainy or stormy conditions. To learn more about pediatric vaccinations (ages 5-11), we invite you to visit the [facility] webpage. [email or web address] [email or web address]-[email or web address]-Freq [email or web address] To learn more about the COVID-19 vaccine, we invite you to visit the CDC website for a list of frequently asked questions. https://www.cdc.gov/coronavirus/ 2019-ncov/vaccines/faq.html [facility] Access Instructions: Stay connected with your healthcare team and access your personal medical information anytime with the [facility] Portal. If you would like a full copy of your medical records please contact the [facility] Medical Records Department Sunday through Sunday between 8a.m. and 4:30p.m. Please follow the directions below to access the portal: 1.Access the email account you provided upon registration to the [facility].2.Look for an invitation email from [facility].3.Open the email and access the invitation link: Accept Invitation to [facility].Fill in the required carson to create your account. Sign into [email or web address] with your username and password that you created in the above steps to stay up to date. You can then view a summary of results, a summary of your visits, and the ability to download your summaries to your computer or send the information securely to a physician. Remember that your healthcare information is confidential, so carefully consider who you will allow to register on the [facility] Portal for access to your information. You can also access the [facility] Patient Portal on the [employer]. Simply click on Health Records under Health Data and then click on the [facility] logo. HOW TO SAFELY DISPOSE OF PRESCRIPTION MEDICATIONS Please use one of the following methods to safely dispose of your unused medications. 1.Use a drug disposal kit: the drug disposal pouch allows you to safely discard your old and unused drugs. Ask your nurse to give you one when you are discharged.2.Visit a local take-back location: Many local pharmacies and police departments have programs that collect old and unwanted prescription drugs. Call your local pharmacy or go to http://Phorm.Apprion/1R1Og5m to find one close to you.3.Make use of household items: Use cat litter or old coffee grounds to dispose medications if other options are not available. Mix your drugs with these household products, seal them in an airtight container and throw it into the garbage. Call [facility]: [phone] to be sure your drugs can be disposed of in this way. Some medicines may require a different approach.4.Never flush your medications down the toilet. IF YOU HAVE BEEN PRESCRIBED AN OPIOIDS FOR PAIN If you have been prescribed an opioid (such as hydrocodone, oxycodone or morphine), it is critical to understand the possible side effects and risks of opioid pain medications. Even when taken as directed, opioids can have several side effects including: Tolerance, meaning you might need to take more of a medication for the same pain relief. Nausea, vomiting and/or constipation. Sleepiness, dizziness, dry mouth, confusion, depression or itching. Physical dependence, meaning you have withdrawal symptoms when a medication is stopped ? this can develop within a few days. KNOW YOUR RESPONSIBILITIES It is important to know exactly how much and how often to take the opioid pain medications you are prescribed. Never take opioids in higher amounts or more often than prescribed. Do not combine opioids with alcohol or other drugs that cause drowsiness, such as benzodiazepines, also known as benzos, including diazepam and alprazolam, muscle relaxants or sleep aids. Never sell or share prescription opioids. This is illegal. Store opioids in a secure place and out of reach of others (including children, family, friends and visitors). The last page(s) of this document has been signed and retained as a CHART COPY Signatures Patient Education Materials Methotrexate for Ectopic Medication Leaflets ondansetron (oral), oxycodone My discharge plan and instructions have been reviewed and explained to me and I,SONDRA SERRANO understand my current condition and have read and understand these discharge instructions. I have received a written copy of the plan/instructions. If I have questions, I am aware that I should contact my doctor. Patient/Genetic Technologist Signature: Date/Time: Relationship to Patient: Witness Name/Signature: Date/Time: [facility] 12-13-2022 Note HNO ID: [id number] Author: Isabell Conrad PA-C Service: ? Author Type: Physician Crop Nutrition Scientist Type: Progress Notes Filed: 12/13/2022 3:27 PM Note Text: Patient presents to [facility] triage with a chief complaint of feeling lightheaded and that she may pass out. She states she has had cough and sore throat for 2 weeks. Has a fever here. Patient appears ill and pale. She denies chest pain. She feels like her heart is racing. Denies drinking or eating anything today. She has been nauseous. No diarrhea. Recommended the patient be seen in the emergency department. She did not feel well enough for her to drive her there so squad was called and she was transferred to [facility]. BP 150/88 Pulse 120 Temp (!) 38.6 ?C (101.4 ?F) Resp 19 LMP 02/26/2017 SpO2 98% [facility] 12-13-2022 History of Presen t illness Narrative Patient presents to [facility] triage with a chief complaint of feeling lightheaded and that she may pass out. She states she has had cough and sore throat for 2 weeks. Has a fever here. Patient appears ill and pale. She denies chest pain. She feels like her heart is racing. Denies drinking or eating anything today. She has been nauseous. No diarrhea. Recommended the patient be seen in the emergency department. She did not feel well enough for her to drive her there so squad was called and she was transferred to [facility]. 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 [facility] Evaluation + Plan note Future Appointments Appointment Date:05/23/2023 03:00:00 PM Scheduled Provider:CALISTA BAUM MD Location:[facility] Appointment Type:Telephone [facility] Evaluation + Plan note Future Appointments Appointment Date:05/29/2023 01:00:00 PM Scheduled Provider: Location:[facility] Appointment Type:US Pelvis Non-OB W/Transvaginal Appointment Date:05/31/2023 10:50:00 AM Scheduled Provider:CALISTA BAUM MD Location:[facility] Appointment Type:SO OV Follow Up Future Scheduled TestsUS Pelvis Non-OB W/Transvaginal 05/29/[address] [facility] Evaluation + Plan note Future Appointments Appointment Date:05/31/2023 10:50:00 AM Scheduled Provider:CALISTA BAUM MD Location:[facility] Appointment Type:SO OV Follow Up [facility] Diagnosis Severe pain- Primary documented in this encounter [facility] note* Diagnosis IIH (idiopathic intracranial hypertension)- Primary Benign intracranial hypertension Papilledema associated with increased intracranial pressure Migraine with aura and without status migrainosus, not intractable Migraine with aura, without mention of intractable migraine without mention of status migrainosus documented in this encounter [facility] Discharge instructions No data available for this section [facility] Note* LEYLA Fernandeza: PERFORM Event Display: Reyno History and Physical Authored Date: [facility] Progress note No data available for this section [facility] Summary note* LEYLA Fernandez Gia: PERFORM Event Display: Patient Summary Documents Authored Date: [facility] Summary Purpose Family History No Family History Records FoundNo Family History Records FoundNo Family History Records Found No data available for this section No data available for this section No data available for this section No Family History Records FoundNo Family History Records Found Advance Directives No Advanced Directives Records FoundDocuments on File Type Date Recorded Patient Genetic Technologist Expl anation Advance Directives and Living Will Power of Stone Layout Marker Latest Code Status on File Code Status Date Activated Date Inactivated Comments Full Code 05/22/2019 7:45 PM 05/25/2019 4:14 PM Full Code 11/14/2017 8:44 PM 11/19/2017 6:48 PM Latest Code Status on File Code Status Date Activated Date Inactivated Comments Full Code 05/22/2019 7:45 PM Discharge Instructions * Attachments The following attachments cannot be sent through Care Everywhere. * Headache (Pakistani) * Epidural Blood Patch (Pakistani) documented in this encounter* Instructions* Altaf Baum MD - 05/25/2019 If unable to follow-up with Dr. Peralta for ophthalmology. To schedule your appointment, please call the following number: Ophthalmology [phone] Will need to follow-up with neurology as an outpatient [place] [facility] [place] [facility] [facility] per patient request and after discussion with Dr. Whitney- please call for scheduling documented in this encounter Assessments Diagnosis Acute nonintractable headache, unspecified headache type- Primary Diagnosis Headache- Primary Depressive disorder Depressive disorder, not elsewhere classified Papilledema of both eyes Class 2 obesity in adult Other hyperlipidemia IIH (idiopathic intracranial hypertension) Benign intracranial hypertension XENIA (acute kidney injury) (HCC) Acute kidney failure, unspecified Transient visual loss Tinnitus Unspecified tinnitus History of Present Illness * Cary Ponce MD - 05/25/2019 11:24 AM EDT General Neurology Follow-up Date of Service: 05/25/2019 Chief complaint: Headache/vision change Subjective: Post LP SEGOVIA better today-able to sit up. Medications: Scheduled Meds: lactated ringers bolus 500 mL Intravenous Once acetaminophen 1,000 mg Oral 3 times per day cyclobenzaprine 10 mg Oral TID acetaZOLAMIDE 500 mg Oral Daily lidocaine 1 patch Transdermal Daily famotidine 20 mg Oral BID sodium chloride flush 10 mL Intravenous 2 times per day sodium chloride flush 10 mL Intravenous 2 times per day Continuous Infusions: PRN Meds:sodium chloride flush, ondansetron, senna, sodium chloride flush No Known Allergies Objective: Exam: BP 121/79 Pulse 70 Temp 99.1 F (37.3 C) (Temporal) Resp 18 Ht 5' 6 (1.676 m) Wt 230 lb (104.3 kg) SpO2 98% BMI 37.12 kg/m Neuro: General: awake and alert Cranial nerves: I: smell Not tested II: visual carson Full to confrontation II: pupils Equal, round, reactive to light III,VII: ptosis None III,IV,: extraocular muscles Full ROM V: mastication Normal V: facial light touch sensation Normal V,VII: corneal reflex Present VII: facial muscle function - upper Normal VII: facial muscle function - lower Normal VIII: hearing Normal IX: soft palate elevation Normal IX,X: gag reflex Present XI: trapezius strength 5/5 XI: sternocleidomastoid strength 5/5 XI: neck flexion strength 5/5 XII: tongue strength Normal Motor exam: normal strength, muscle mass, and tone in all extremities Tone: WNL Sensation was normal to light touch Deep tendon reflexes were 2+ bilaterally Plantar responses were flexor bilaterally Cerebellar exam noted no tremors noted Gait:WNL Data: LABS: Recent Results (from the past 24 hour(s)) Urinalysis Collection Time: 05/24/19 10:25 PM Result Value Ref Range Glucose, Ur Normal mg/dL Total Protein, Urine Negative mg/dL Bilirubin Urine Negative mg/dL Urobilinogen, Urine Normal mg/dL pH, Urine 5.5 5.0 - 8.0 NA Specific [place], Urine 1.027 1.005 - 1.030 NA Occult Blood,Urine Negative mg/dL Ketones, Urine Negative mg/dL Nitrite, Urine Negative NA LEUKOCYTES, UA Negative Min/uL Appearance Clear NA Color, Urine Light-Yellow NA Magnesium Collection Time: 05/25/19 6:45 AM Result Value Ref Range Magnesium 2.1 1.6 - 2.3 mg/dL Basic Metabolic Panel w/ Reflex to MG Collection Time: 05/25/19 6:45 AM Result Value Ref Range Sodium 140 135 - 145 mmol/L Potassium 3.8 3.5 - 5.1 mmol/L Chloride 113 (H) 98 - 107 mmol/L CO2 18 (L) 22 - 30 mmol/L Anion Gap 9 NA Glucose 86 70 - 100 mg/dL BUN 29 (H) 7 - 20 mg/dL CREATININE 1.08 0.52 - 1.25 mg/dL eGFR >60.0 >60 mL/min EGFR IF NonAfrican Kuwaiti 59.0 >60 mL/min Calcium 8.8 8.4 - 10.4 mg/dL CBC auto differential Collection Time: 05/25/19 6:45 AM Result Value Ref Range WBC 10.7 3.6 - 10.7 10*3/uL RBC 5.15 3.80 - 5.20 10*6/uL Hemoglobin 14.7 11.7 - 16.0 g/dL Hematocrit 42.9 35.0 - 47.0 % MCV 83.2 79.0 - 98.0 fL MCH 28.5 26.0 - 34.0 pg MCHC 34.3 32.0 - 36.0 % RDW 13.4 11.5 - 14.5 % Platelets 294 140 - 440 10*3/uL MPV 7.7 7.4 - 10.4 fL Granulocytes % 56.8 40.0 - 80.0 % Lymphocyte % 32.8 20.0 - 40.0 % Monocytes 8.5 2.0 - 10.0 % Eosinophils 1.1 1.0 - 6.0 % Basophils 0.8 0.0 - 2.0 % Absolute Neut # 6.1 1.8 - 7.0 10*3/uL Absolute Lymph # 3.5 1.0 - 4.3 10*3/uL Absolute Sanborn # 0.9 (H) 0.0 - 0.8 10*3/uL Absolute Eos # 0.1 0.0 - 0.5 10*3/uL Absolute Baso # 0.1 0.0 - 0.2 10*3/uL RADIOLOGY: MRI Brain w/wo contrast 05/22/19: 1. No acute intracranial findings. MRA Head w/o contrast 05/22/19: 1. No significant intracranial stenosis. MRA Neck w/wo contrast 05/22/19: No significant carotid stenosis (less than 50%) by NASCET criteria. MRV Head w/o contrast 05/22/19: No evidence of acute dural sinus thromboses. Neuroimaging and labs personally reviewed Assessment/Plan: 33 yo female who presents with acute on chronic SEGOVIA and vision changes. Headache with associated vision changes -MRI/A/V completed and essentially unremarkable -LP completed on 05/23/19-OP elevated at 30 -INDUSTRIAL REFRIGERATION MECHANIC infectious workup negative -Presenting SEGOVIA most consistent with IIH -Continue reduced dose of diamox -Can continue tylenol as needed (would hold toradol secondary to elevated Cr). Muscle relaxant added by primary Low pressure SEGOVIA -Post LP -Improved with IVF and caffeine Elevated Cr -Now on lower dose of diamox -Toradol has been d/c'd and given IVF bolus today -Spoke to primary: plan is to recheck Cr in 2-3 days upon d/c and if still elevated, will d/c diamox +/- additional nephrology workup if required * Tejinder Whitney MD - 05/24/2019 3:42 PM EDT Department of Neurosurgery and Spine Service Neurosurgery Attending Progress Note 05/24/2019 3:43 PM Date of Admission: 05/22/2019 Hospital Day: Sondra Serrano is a 33 y.o. Right handed Female with Headache, MO, Visual Obscuration, Papilledema and elevated ICP consistent with Pseudotumor Cerebri. S/P LP yesterday with OP =30 cm H20. Past medical history of Anxiety and Depression Subjective: Complains of headache especially when sitting up. ROS: 8 systems reviewed and non-contributory to PI Vitals VITALS: BP 136/88 Pulse 73 Temp 97.6 F (36.4 C) (Temporal) Resp 14 Ht 5' 6 (1.676 m) Wt 230 lb (104.3 kg) SpO2 98% BMI 37.12 kg/m PHYSICAL EXAM: General Physical Examination: General: WD WN In NAD, Resting comfortably. HEENT: Normocephalic. Sclerae Clear. Fundus: No Papilledema, RN ADMISSIONS OU ENT exam normal, no neck nodes or sinus tenderness. Chest & Lungs: Clear to A&P Heart: RR with no murmur, no thrill, no heave. Abdomen: Soft, Above plane, W\ithout mass/ tenderness. Active BS present. Skin: Intact without ulcers, breakdowns or discoloration. Extremities: Normal ROM. No cyanosis/clubbing/edema Pulses: Intact 2+ generally Glascow Coma Scale: Eye Opening 4=Spontaneous Best Verbal Response 5=Oriented Best Motor Response 6=Obeys Commands Total 15 Cerebrum: Alert O X 3 Cerebellum; No Nystagmus or Drift. FNF and BELL intact Cranial Nerves: Bilateral papilledema and Anisocoria OD 2 OS 4 otherwise intact II-XII Motor: All flexors and extensors of the UE and LE are 5/5 bilaterally. Sensory: Intact to pin and light touch bilaterally. DTR's: 2 + bilaterally No Babinski LABS: HgB: Lab Results Component Value Date HGB 14.6 05/23/2019 CBC with Differential: Lab Results Component Value Date WBC 13.1 05/23/2019 RBC 5.14 05/23/2019 HGB 14.6 05/23/2019 HCT 42.6 05/23/2019 PLT 307 05/23/2019 MCV 82.8 05/23/2019 MCH 28.3 05/23/2019 MCHC 34.2 05/23/2019 RDW 13.6 05/23/2019 LYMPHOPCT 9.8 05/23/2019 MONOPCT 1.1 05/23/2019 BASOPCT 0.3 05/23/2019 MONOSABS 0.1 05/23/2019 LYMPHSABS 1.3 05/23/2019 EOSABS 0.0 05/23/2019 BASOSABS 0.0 05/23/2019 BMP: Lab Results Component Value Date NA 140 05/24/2019 K 5.1 05/24/2019 CL 112 05/24/2019 CO2 15 05/24/2019 BUN 26 05/24/2019 LABALBU 4.2 05/22/2019 CREATININE 1.06 05/24/2019 CALCIUM 9.7 05/24/2019 GLUCOSE 109 05/24/2019 CSF Studies: Gram Stain Result 05/23/2019 6:18 PM [facility] Cytocentrifugation performed. Rare polymorphonuclear cells/lpf. No organisms seen. 05/23/2019 6:48 PM - Jose, [facility] Incoming Lab Results From [facility] [facility] Component Value Ref Range & Units Status Collected Lab Appearance see below NA Final 05/23/2019 6:18 PM [facility] Clear and colorless Color, CSF see below NA Final 05/23/2019 6:18 PM [facility] Clear and colorless Nucleated Cells, CSF 0 0 - 5 cells/uL Final 05/23/2019 6:18 PM [facility] Red blood cells count, CSF 41 05/23/2019 6:53 PM - Jose, [facility] Incoming Lab Results From [employer] Component Value Ref Range & Units Status Collected Lab Protein, CSF 39.6 12.0 - 60.0 mg/dL Final 05/23/2019 6:18 PM [facility] 05/23/2019 7:37 PM - Jose, [facility] Incoming Lab Results From [employer] [facility] Component Value Ref Range & Units Status Collected Lab Glucose, CSF 73High 40 - 70 mg/dL Final 05/23/2019 6:18 PM [facility] Meningitis Encephalitis Panel 05/23/2019 5:28 PM [facility] NEGATIVE: No targets were detected by the [employer] Meningitis/Encephalitis PCR Panel. The [employer] Meningitis/Encephalitis Panel detects the following targets: Escherichia coli K1 Haemophilus influenzae Listeria monocytogenes Neisseria meningitidis Streptococcus agalactiae Streptococcus pneumoniae Cytomegalovirus Enterovirus Herpes simplex virus 1 Herpes simplex virus 2 Human Herpesvirus 6 Human Parechovirus Varicella zoster virus Cryptococcus neoformans/gattii Imaging: XA SPECIAL PROCEDURE Patient Name: SONDRA SERRANO ---Special Procedures--- Exam Date/Time 05/23/2019 17:29:59 EDT Exam XA Special Angiography Procedure Ordering Physician NEIL PORTER, CARLITOS Zhang Accession Number [id number] Reason For Exam lumbar puncture with opening pressure, if opening pressure >25, please drain 20-30ml and obtain closing pressure Addendum The original requisition did not include the request for closing pressure and CSF withdrawal amount, and therefore was not performed. If changes are made to an existing order, the department must be contacted to verify changes. Report Dictated on Workstation: [id number] ---Final Addendum--- Dictated: 05/23/2019 5:44 pm Addendum Dictating Physician: MD PAIZ KEVIN Signed Date and Time: 05/23/2019 5:45 pm Signed by: MD PAIZ KEVIN Transcribed Date and Time: 05/23/2019 5:44 Report CLINICAL HISTORY: Headache Procedures: Fluoroscopic-guided lumbar puncture. Physician: Dr. Paiz MEDICATIONS: Local lidocaine. EBL: Minimal. Contrast: None. Specimen sent: 16 mL clear CSF COMPLICATIONS: None. Fluoroscopy time: Less than one minute Angiographic runs: 0 Fluoroscopic spot images: 0 Fluoroscopic saved images were obtained. These images do NOT add additional exposure to ionizing radiation and were captured electronically from the imaging chain. Procedural details: All of the risk, benefits, and alternative treatments were explained to the patient and informed consent was obtained and documented. The patient was brought into the interventional radiology suite and placed in a decubitus position. The patient's lower back was interrogated with fluoroscopy and a suitable site for lumbar puncture was identified. The overlying skin was prepped and draped in the usual sterile fashion. The overlying subcutaneous tissues were anesthetized using 2 percent lidocaine. Under intermittent fluoroscopic observation, a 22-gauge spinal needle was advanced into the thecal sac at the L3 level. There was return of clear CSF fluid. The opening pressure was then measured. Following this, 16 mL of clear CSF fluid was obtained. The needle was then removed and hemostasis was obtained using manual pressure. FINDINGS: Needle tip at the level of L3 Opening pressure: 30 cm water IMPRESSION: Successful uncomplicated fluoroscopic-guided lumbar puncture. Report Dictated on Workstation: [id number] --- Final --- Dictated: 05/23/2019 5:26 pm Dictating Physician: MD PAIZ KEVIN Signed Date and Time: 05/23/2019 5:28 pm Signed by: MD PAIZ KEVIN Transcribed Date and Time: 05/23/2019 5:26 ASSESSMENT: 1. Pseudotumor Cerebri or Idiopathic Intracranial Hypertension 2. Morbid Obesity BMI =38.1 kg/m2 3. Transient Vision Loss, Tinnitus and Papilledema. 4. Possible low pressure headache after Lumbar puncture PLAN: 1. HOB flat 2. Push po fluids and caffeinated beverages. 3. Continue Carbonic Anhydrase Inhibitors as tolerated. Tejinder Whitney MD, FACS, FAANS Neurosurgery 05/24/2019 3:43 PM * Cary Ponce MD - 05/24/2019 12:08 PM EDT General Neurology Follow-up Date of Service: 05/24/2019 Chief complaint: Headache/vision change Subjective: Patient had worsening SEGOVIA when sitting up post LP-likely low pressure SEGOVIA secondary to LP. Creatinine up today. Medications: Scheduled Meds: acetaminophen 1,000 mg Oral 3 times per day famotidine 20 mg Oral BID sodium chloride flush 10 mL Intravenous 2 times per day sodium chloride flush 10 mL Intravenous 2 times per day acetaZOLAMIDE 500 mg Oral BID Continuous Infusions: PRN Meds:ketorolac, sodium chloride flush, ondansetron, senna, sodium chloride flush No Known Allergies Objective: Exam: BP 127/74 Pulse 67 Temp 99.3 F (37.4 C) (Temporal) Resp 16 Ht 5' 6 (1.676 m) Wt 230 lb (104.3 kg) SpO2 98% BMI 37.12 kg/m Neuro: General: awake and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
[2023-10-02 16:45] LABS: Amphetamine Urine VISTA NEGATIVE (<1000 ng/mL); Barbiturate Urine VISTA NEGATIVE (< 200 ng/mL); Benzodiazepine Urine VISTA NEGATIVE (< 200 ng/mL); Cocaine Urine VISTA NEGATIVE (< 300 ng/mL); Ecstacy Urine VISTA NEGATIVE (< 500 ng/mL); Methadone Urine VISTA NEGATIVE (< 300 ng/mL); PCP Urine VISTA NEGATIVE (< 25 ng/mL); THC Urine VISTA NEGATIVE (< 50 ng/mL); Vista UDS pH Range 4
[2023-10-02 16:47] LABS: ALB/GLOB Ratio 0.8 RATIO (0.9-2.4); AST(SGOT) 9 U/L (15-37); Alanine Aminotransfer ALT/SGPT 21 U/L (13-56); Albumin, Serum 3.4 g/dL (3.2-5.0); Alkaline Phosphatase 100 U/L (45-117); Anion Gap 2 (5-15); BUN 12 mg/dL (7-18); Calcium,Total 9.1 mg/dL (8.5-10.1); Chloride 113 mmol/L (98-107); Creatinine, Serum 0.86 mg/dL (0.55-1.02); EST Glomerular Filtration Rate 80 mL/min (>60); Est Glom Filt Rate - Afr Amer 97 mL/min (>60); Globulin 4.1 g/dL (2.2-4.2); Glucose 135 mg/dL (74-106); Lipase 28 U/L (13-75); Potassium 3.5 mmol/L (3.5-5.1); Protein, Total 7.5 g/dL (6.4-8.2); Sodium Level 140 mmol/L (136-145)
[2023-10-02 16:59] LABS: Internal QC Validated? YES +Cl - CLEAR BKGD; Pregnancy, Serum, hCG Quali. NEGATIVE Negative
[2023-10-02 17:02] LABS: Alcohol, Blood (Medical)-Serum < 3.0 mg/dL
--- NOTE | 2023-10-02 17:07 | CM.ED ---
Social Work Medical clearance faxed to crisis. Called crisis and pt to be referred to [facility]. Crisis is faxing assessment for patient's chart. Rachael Collins BOOKING SUPERVISOR, SENIOR MANAGER [employer]
[2023-10-02 18:29] VITALS: BP 136/64; PULSE 64; RESP 16; O2SAT 97
[2023-10-02] MEDS: Acetaminophen 500 MG Tablet 1000 MG PO (18:58)
[2023-10-02 20:26] VITALS: BMI 35.7
[2023-10-02 21:49] VITALS: BP 141/92; PULSE 82; RESP 16; TEMP 36.6; O2SAT 97
--- NOTE | 2023-10-02 22:21 | NURSING ---
Attempted to call report, got voicemail.
--- NOTE | 2023-10-03 00:49 | NURSING ---
This RN attempted to call report and did not get an answer from the facility.
[2023-10-03 01:03] VITALS: PULSE 73; RESP 16; TEMP 36.3; O2SAT 97
[2023-10-03 04:45] VITALS: RESP 18
[2023-10-03 06:11] VITALS: BP 137/99; PULSE 62; RESP 16; O2SAT 99
--- NOTE | 2023-10-03 06:58 | NURSING ---
PER ORIANA ANNA, NEW ETA IS ABOUT 30 MIN
--- NOTE | 2023-10-03 07:13 | NURSING ---
This RN attempted to call report again since the ambulance is transporting the individual today. The phone went to voicemail.
== END 2023-10-03 07:36 ==
PROVIDERS: Emergency Provider Emergency Medicine; Visit Provider Emergency Medicine
DX: F33.2 Major depressive disorder, recurrent severe without psychotic features (principal); R45.851 Suicidal ideations; R10.13 Epigastric pain; F41.1 Generalized anxiety disorder; Z79.899 Other long term (current) drug therapy
CPT/HCPCS: 80053; 80307; 80320; 83690; 84703; 85025; 99284; G0480

== ENCOUNTER 2023-11-19 10:57 | Emergency (ER) | payer MEDICAID, SELFPAY ==
[2023-11-19 10:57] VITALS: BP 163/121; PULSE 84; RESP 16; TEMP 36.4; O2SAT 100; BMI 35.5
[2023-11-19 11:01] VITALS: BP 137/94
--- NOTE | 2023-11-19 11:19 | EDS_ITS ---
HPI <AURELIA Hoang - Last Filed: 11/19/23 11:48> History of Present Illness Chief Complaint: Lower Extremity Injury Narrative Narrative: Patient presenting today due to a left foot and ankle injury that occurred today while she was at work. She reports that she was stepping off of a ledge and accidentally stepped on the side of her left foot and inverted her left ankle. She is able to ambulate. She denies any other injury. PFSH <AURELIA Hoang - Last Filed: 11/19/23 11:48> PFSH Medical History Bruising Cardiology follow-up encounter Easy bruising Generalized anxiety disorder Heartburn History of echocardiogram History of IBS Kidney stones Left ureteral calculus Major depressive disorder, recurrent severe without psychotic features Migraines Non-smoker Ovarian cyst PTSD (post-traumatic stress disorder) Shortness of breath on exertion Home Medications acetazolamide 500 mg capsule,extended release 500 mg PO BID PSEUDOTUMOR 06/23/21 [History Last Taken Unknown] phenazopyridine 200 mg tablet (Pyridium) 200 mg PO TID 6 doses #6 tabs 06/26/23 [Rx Last Taken Unknown] Allergy/AdvReac Type Severity Reaction Status Date / Time adhesive tape AdvReac Other Verified 11/19/23 10:57 Surgical History History of section History of cholecystectomy History of umbilical hernia repair History of urethral stent Hx of cystoscopy Hx of dilation and curettage Hx of tympanostomy tubes Social History household members: spouse Smoking Status: Never smoker ROS <AURELIA Hoang - Last Filed: 11/19/23 11:48> ROS ED Constitutional Constitutional ED: Denies chills or fever(s) Cardiovascular Cardiovascular: Denies chest pain Respiratory/Chest Respiratory/Chest: Denies cough or dyspnea Gastrointestinal Gastrointestinal: Denies abdominal pain, nausea or vomiting Musculoskeletal Musculoskeletal: Reports arthralgias Integumentary Denies Abrasions Neurologic Neurologic: Denies paresthesias EXAM <AURELIA Hoang - Last Filed: 11/19/23 11:48> Physical Exam Const Vital Signs: 11/19/23 10:57 11/19/23 11:01 Temperature 97.6 F L Temperature Source Temporal Pulse Rate 84 Respiratory Rate 16 Blood Pressure 163/121 H 137/94 H Blood Pressure Mean 135 108 Pulse Ox 100 Oxygen Delivery Method Room Air Positive well nourished, well developed and no apparent distress General Appearance ED: well developed HEENT Reports normocephalic and head/scalp atraumatic Mouth ED: Yes moist mucous membranes normal Eyes PERRL and EOMs intact bilaterally Neck full ROM and supple Chest Wall inspection of chest normal Resp normal respiratory effort and clear to auscultation bilaterally Cardio regular rate and regular rhythm GI soft to palpation, non-tender, non-distended and no masses Back/Spine normal ROM and normal to inspection Extremity Extremity Narrative: Limited range of motion to the left ankle due to pain. Pain to palpation to the left lateral malleolus and base of the fifth metatarsal. Left DP pulse 2+, good capillary refill, sensation intact. No pain to the proximal fibula. Neuro oriented x3, CN's II-XII intact bilaterally, moves all extremities, no focal motor deficits and no sensory deficits noted Sensorium / Orientation: awake and alert Psych mental status grossly normal and thought process normal Skin no rashes or lesions noted and no wounds <Dr. Pranav Biggs DO - Last Filed: 11/19/23 11:41> Physical Exam Const Vital Signs: 11/19/23 10:57 11/19/23 11:01 Temperature 97.6 F L Temperature Source Temporal Pulse Rate 84 Respiratory Rate 16 Blood Pressure 163/121 H 137/94 H Blood Pressure Mean 135 108 Pulse Ox 100 Oxygen Delivery Method Room Air [facility] <AURELIA Hoang - Last Filed: 11/19/23 11:48> [facility] Narrative Medical decision making narrative: Patient presenting today with left foot and ankle pain after an injury that occurred this morning. She is able to ambulate. X-ray will be obtained, she will be given ibuprofen for pain. X-rays are negative for any acute fracture. RICE instructions discussed. I did offer a walking boot/Aircast/Maynor wrap but patient declines. She can alternate Tylenol and ibuprofen for her pain as needed. Follow-up with PCP. She will be discharged home in stable condition and is comfortable with plan. Radiography Diagnostic Testing: Clinical Impression(s) from Imaging Studies Ankle X-Ray 11/19/23 11:25 IMPRESSION: Calcaneal spurs. Electronically Signed: Molina Luis MD at 11:40 EDT , Foot X-Ray 11/19/23 11:25 IMPRESSION: Plantar spurs. Electronically Signed: Molina Luis MD at 11:39 EDT , <Dr. Pranav Biggs, DO - Last Filed: 11/19/23 11:41> MDM Radiography Diagnostic Testing: Clinical Impression(s) from Imaging Studies Ankle X-Ray 11/19/23 11:25 IMPRESSION: Calcaneal spurs. Electronically Signed: Molina Luis MD at 11:40 EDT , Foot X-Ray 11/19/23 11:25 IMPRESSION: Plantar spurs. Electronically Signed: Molina Luis MD at 11:39 EDT , Treatment and Re-Evaluation Narrative: I have personally performed a face to face assessment of the patient and have reviewed the NURY Note. I performed a substantive portion of the visit including all aspects of the following. My andrade findings include: History: Patient presents with injury to her left ankle that occurred today. Patient states she stepped on the side of a curb and inverted her ankle. Patient states her pain is mainly over the lateral aspect of the ankle and over the fifth metatarsal. Patient denies any pain over the proximal fibula. Patient states that she also felt some pain in her back. Patient denies any paresthesias or weakness. Patient denies any other injuries. Exam: Vital signs are stable. Patient is afebrile. Patient is in no acute distress. Oral mucosa is pink and moist. Neck is supple. Trachea is midline. There is no JVD. Musculoskeletal exam reveals tenderness and mild edema over the lateral malleolus. There is also some mild tenderness over the fifth metatarsal. There is no tenderness over the proximal fibula. There is no tenderness over the medial malleolus. Pedal pulses are equal bilaterally. Sensation was intact to light touch in all digits. Capillary refill was less than 2 seconds in all digits. Range of motion was slightly limited in all motions of the left ankle secondary to pain. Medical Decision Making: Differential diagnosis includes fracture, sprain, and contusion. X-rays of the left ankle and left foot will be obtained to assess for fracture and dislocation. X-rays of the left ankle were obtained. There are 3 views. On my independent interpretation, there is no acute fracture or dislocation noted. Radiologist also interpreted the x-rays and agrees. X-rays of the left foot were obtained. There are 3 views. On my independent interpretation, there is no acute fracture. There is no dislocation noted. Radiologist also interpreted the x-rays and agrees. Discharge Plan Triage Chief Complaint: Lower Extremity Injury ED Midlevel Provider: Mariama Amador ED Provider: Pranav Biggs Dx/Rx/DC Orders Clinical Impression: Left ankle pain, Contusion of foot, left Instructions: ED Ankle Sprain (Adult) Prescriptions: No Action acetazolamide 500 mg capsule, extended release 500 mg PO BID phenazopyridine [Pyridium] 200 mg tablet 200 mg PO TID Qty: 6 0RF Primary Care Provider: Care Physician,No Primary Referrals: Mary Ellen Buckner MD [Med Staff - Active Staff] - As Needed Care Physician,No Primary [Primary Care Provider] - Activity Restrictions/Additional Instructions: You can alternate Tylenol and ibuprofen for your pain as needed. I have given you a PCP referral to use as needed. Disposition Disposition: Home, Self Care
[2023-11-19] MEDS: Ibuprofen 200 MG Tablet 400 MG PO (11:23)
--- NOTE | 2023-11-19 11:25 | RAD_ITS ---
STUDY: X-RAY - LEFT ANKLE REASON FOR EXAM: Female, 38 years old. Injury TECHNIQUE: 3 view(s) of the ankle. COMPARISON: Comparison is made with prior study dated September 25, 2018. FINDINGS: Normal visualized distal tibia and fibula. Normal medial and lateral malleoli. Normal tibiotalar articulation and ankle mortise. Calcaneal spurs. The visualized subtalar, talonavicular, calcaneocuboid and tarsal articulations are normal. The soft tissue structures are unremarkable. RAD/Ankle min 3 Views IMPRESSION: Calcaneal spurs. Electronically Signed: Molina Luis MD at 11:40 EDT ,
--- NOTE | 2023-11-19 11:25 | RAD_ITS ---
STUDY: X-RAY - LEFT FOOT CLINICAL: Female, 38 years old. Lateral foot pain following a twisting injury. TECHNIQUE: 3 view(s) of the foot. COMPARISON: None. FINDINGS: There is an enthesophyte involving the posterior superior calcaneus at the site of insertion of the Achilles tendon. Small plantar spur. Normal visualized subtalar, talonavicular, calcaneocuboid, tarsal and tarsometatarsal articulations. Normal metatarsi. Normal metatarsophalangeal joint of the great toe. Normal tibial and fibular sesamoid bones. Normal interphalangeal joint of the great toe. Normal phalanges of the great toe. Normal second through fifth metatarsophalangeal joints. Normal interphalangeal joints and phalanges of the lesser toes. The soft tissue structures are unremarkable. RAD/Foot min 3 Views IMPRESSION: Plantar spurs. Electronically Signed: Molina Luis MD at 11:39 EDT ,
[2023-11-19 11:55] VITALS: BP 137/94; PULSE 85; RESP 16; TEMP 36.4; O2SAT 99
== END 2023-11-19 11:56 | disposition home or self-care (01) ==
PROVIDERS: Emergency Provider Emergency Medicine; Visit Provider Emergency Medicine
DX: S90.32XA Contusion of left foot, initial encounter (principal); M25.572 Pain in left ankle and joints of left foot; X58.XXXA Exposure to other specified factors, initial encounter; Y92.89 Other specified places as the place of occurrence of the external cause; Z90.49 Acquired absence of other specified parts of digestive tract
CPT/HCPCS: 73610; 73630; 99282

== ENCOUNTER 2023-12-14 19:15 | Emergency (ER) | payer MEDICAID, SELFPAY ==
[2023-12-14 19:15] VITALS: BP 159/108; PULSE 83; RESP 18; TEMP 36.9; O2SAT 100; BMI 36.9
--- NOTE | 2023-12-14 19:26 | CT_ITS ---
EXAM: CT ABDOMEN AND PELVIS WITHOUT INTRAVENOUS CONTRAST CLINICAL INDICATION: Kidney Stone right TECHNIQUE: Helically acquired images were obtained of the abdomen and pelvis without intravenous contrast. This CT exam was performed using one or more of the following dose reduction techniques: automated exposure control, adjustment of the mA and/or kV according to patient size, and/or use of iterative reconstruction technique. RADIATION DOSE: CTDIvol = 17.16 mGy, DLP = 913.31 mGy-cm COMPARISON: No relevant prior studies available. FINDINGS: LOWER THORAX: Unremarkable. Lung bases are clear. No cardiomegaly. No significant pericardial effusion. ABDOMEN: LIVER: Unremarkable. Homogeneous. GALLBLADDER AND BILE DUCTS: Cholecystectomy changes. No intra- or extrahepatic biliary ductal dilation. PANCREAS: Unremarkable. No focal cystic mass. SPLEEN: Unremarkable. Normal size without focal cystic or solid mass. ADRENALS: Unremarkable. No nodules. KIDNEYS AND URETERS: Unremarkable. Normal renal size and position. No hydronephrosis. STOMACH AND BOWEL: Unremarkable. No stomach or bowel distention. No focal inflammatory change. PELVIS: APPENDIX: Normal appearance of the appendix. BLADDER: Unremarkable. REPRODUCTIVE: Uterus is unremarkable. Tampon in the vaginal cuff. ABDOMEN and PELVIS: INTRAPERITONEAL SPACE: Unremarkable. No ascites or other fluid collection. No free air. BONES/JOINTS: Unremarkable. No suspicious lytic or blastic abnormality. SOFT TISSUES: Umbilical hernia containing fat. VASCULATURE: Unremarkable. Abdominal aorta is non-dilated. LYMPH NODES: Unremarkable. No enlarged lymph nodes. CT/Abdomen/Pelvis without Cont IMPRESSION: No acute findings in the abdomen or pelvis. Electronically Signed: Doc Mujica MD at 21:01 EDT ,
--- NOTE | 2023-12-14 19:29 | EDS_ITS ---
HPI HPI - GI History of Present Illness Chief Complaint: Flank Pain Informant: patient Abdominal Pain/Flank Pain Onset: Hours (7) Context: Sudden Onset Timing: Continuous and Waxes and wanes Quality: Aching Location: Right Flank (Mostly in back) Current Severity: Moderate Maximum Severity: Severe Worsened by: Nothing Relieved by: Nothing Nausea/Vomiting/Emesis GI Symptom: Positive for Nausea; Negative for Vomiting Diarrhea/Melena/Hematochezia GI Symptom: Negative for Diarrhea, Melena or Hematochezia Associated Symptoms Associated Symptoms: Negative for Dysuria, Frequency or Hematuria Narrative Narrative: 38-year-old female started having suddenly severe flank pain right back earlier today has been colicky similar to when she had a kidney stone on the left side that required procedure to get it out. No hematuria no fevers or chills no vomi ting. PFSH PFSH Medical History Bruising Cardiology follow-up encounter Easy bruising Generalized anxiety disorder Heartburn History of echocardiogram History of IBS Kidney stones Left ureteral calculus Major depressive disorder, recurrent severe without psychotic features Migraines Non-smoker Ovarian cyst PTSD (post-traumatic stress disorder) Shortness of breath on exertion Home Medications acetazolamide 500 mg capsule,extended release 500 mg PO BID PSEUDOTUMOR 06/23/21 [History Last Taken Unknown] phenazopyridine 200 mg tablet (Pyridium) 200 mg PO TID 6 doses #6 tabs 06/26/23 [Rx Last Taken Unknown] naproxen 500 mg tablet 500 mg PO BID PRN #14 tabs 12/14/23 [Rx Last Taken Unknown] Allergy/AdvReac Type Severity Reaction Status Date / Time adhesive tape AdvReac Other Verified 12/14/23 19:17 Surgical History History of section History of cholecystectomy History of umbilical hernia repair History of urethral stent Hx of cystoscopy Hx of dilation and curettage Hx of tympanostomy tubes Social History household members: spouse Smoking Status: Never smoker ROS ROS ED Constitutional Constitutional ED: Denies chills or fever(s) Eyes Eyes: Denies change in vision or diplopia ENT ENT ED: Denies rhinorrhea or sore throat Cardiovascular Cardiovascular: Denies chest pain or palpitations Respiratory/Chest Respiratory/Chest: Denies cough or dyspnea Gastrointestinal Gastrointestinal: Reports nausea; Denies abdominal pain, diarrhea or vomiting Genitourinary Genitourinary ED: Denies dysuria or hematuria Musculoskeletal Musculoskeletal: Reports back pain; Denies neck pain Integumentary Denies abscess or rash Neurologic Neurologic: Denies headache(s), paresthesias or weakness Psychiatric Psychiatric: Denies anxiety or suicidal thoughts EXAM Physical Exam Const Vital Signs: 12/14/23 19:15 12/14/23 22:39 Temperature 98.4 F Temperature Source Temporal Pulse Rate 83 73 Respiratory Rate 18 16 Blood Pressure 159/108 H 132/86 H Blood Pressure Mean 125 101 Pulse Ox 100 99 Oxygen Delivery Method Room Air Room Air Positive well nourished, well developed and obese General Appearance ED: well developed and NAD Nutritional Appearance: obese HEENT Reports moist mucous membranes normocephalic and atraumatic Eyes PERRL and EOMs intact bilaterally Neck full ROM and supple Resp normal respiratory effort and clear to auscultation bilaterally Cardio regular rate, regular rhythm and no murmurs GI non-tender and non-distended Auscultation: normoactive bowel sounds Palpation: soft Back/Spine General Back: CVA tenderness right and other FROM Extremity normal to inspection General Extremety ED: Negative for edema, pulses abnormal or tenderness General Extremity: Negative for edema or pulses abnormal Neuro oriented x3, CN's II-XII intact bilaterally and no sensory deficits noted Sensorium / Orientation: awake and alert Motor Exam: strength 5/5 throughout Skin no rashes or lesions noted and no wounds MDM MDM MDM Narrative Medical decision making narrative: Obtained a urine, both of which are normal, as well as a CT of the abdomen/pelvis without contrast. I reviewed the images which are unremarkable, and the radiologist report which agrees, and I agree with his report. In the meantime the patient was given Toradol and morphine, she did have improvement, and when I returned she says she was kind of having pain across to her lower back now. 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 At this time I do not think she needs more emergent testing. She is reassured and given a prescription for Naprosyn and advised to follow-up with her doctor if it continues to hurt after the weekend she is comfortable with that plan. Lab Data Attestation: I reviewed the patient's lab results. Labs: Laboratory Results - last 24 hr 12/14/23 19:34 Urine Color Yellow Urine Clarity Clear Urine pH 6.0 Ur Specific [place] 1.015 Urine Protein Negative Urine Glucose (UA) Normal Urine Ketones Negative Urine Occult Blood Negative Urine Nitrite Negative Urine Bilirubin Negative Urine Urobilinogen Normal Ur Leukocyte Esterase Negative Urine RBC 0 SEEN Urine WBC 0-5 SEEN Ur Squamous Epith Cells 0-5 SEEN Urine Bacteria 0 SEEN Urine Mucus 0 SEEN Urine Test Negative Radiography Diagnostic Testing: Clinical Impression(s) from Imaging Studies Abdomen/Pelvis CT 12/14/23 19:26 IMPRESSION: No acute findings in the abdomen or pelvis. Electronically Signed: Doc Mujica MD at 21:01 EDT Reading Location ID and State: [facility] / [place] , Service support , Discharge Plan Triage Chief Complaint: Flank Pain ED Provider: Kennedy Trevino Dx/Rx/DC Orders Clinical Impression: Acute low back pain Instructions: ED Back Care Tips, ED Back Pain (Acute or Chronic) Prescriptions: New naproxen 500 mg tablet 500 mg PO BID PRN Qty: 14 0RF No Action acetazolamide 500 mg capsule, extended release 500 mg PO BID phenazopyridine [Pyridium] 200 mg tablet 200 mg PO TID Qty: 6 0RF Primary Care Provider: Care Physician,No Primary Referrals: Nancy Mayo [Non-Staff] - 3-5 Days if not improving Disposition Disposition: Home, Self Care
[2023-12-14 19:38] LABS: Bacteria 0 SEEN /hpf (None Seen); Mucous, Urine 0 SEEN /hpf (<or=2+); Red Blood Cells-Urine 0 SEEN /hpf (0-5)
[2023-12-14 19:46] LABS: Color, Urine Yellow (Yellow); Glucose, Dipstick Normal (Normal); Ketone-Dipstick Negative (Negative); Leukocyte Esterase-Dipstick Negative /ul (Negative); Nitrite-Dipstick Negative (Negative); Occult Blood-Urine Negative /ul (Negative); Protein-Dipstick Negative (Negative); Specific Gravity, Urine 1.015 (1.002-1.030); Urine Bilirubin Dipstick Negative (Negative); Urine Clarity Clear (Clear); Urine Urobilinogen Normal (Normal)
[2023-12-14 19:53] LABS: Internal QC Validated? YES +Cl - CLEAR BKGD; Pregnancy, Urine Negative Negative; Squamous Epithelial Cells - UA 0-5 SEEN /hpf (5-10); White Blood Cells 0-5 SEEN /hpf (0-5)
[2023-12-14] MEDS: Ondansetron 4 MG/2 ML Vial IV (20:13)
[2023-12-14] MEDS: Ketorolac 30 MG/ML Syringe IV (20:14)
[2023-12-14] MEDS: Morphine 4 MG/ML Syringe IV (20:18)
[2023-12-14 22:39] VITALS: BP 132/86; PULSE 73; RESP 16; O2SAT 99
[2023-12-14 23:01] VITALS: BP 132/86; PULSE 73; RESP 16; TEMP 36.6; O2SAT 99
== END 2023-12-14 23:06 | disposition home or self-care (01) ==
PROVIDERS: Emergency Provider Emergency Medicine; Visit Provider Emergency Medicine
DX: M54.50 Low back pain, unspecified (principal); R10.9 Unspecified abdominal pain; R11.0 Nausea; Z79.899 Other long term (current) drug therapy; Z87.442 Personal history of urinary calculi
CPT/HCPCS: 74176; 81001; 81025; 96374; 96375; 99283; A4216; J2405

== ENCOUNTER 2023-12-19 08:22 | Emergency (ER) | payer MEDICAID, SELFPAY ==
[2023-12-19 08:23] VITALS: BP 167/98; PULSE 74; RESP 16; TEMP 36.7; O2SAT 98; BMI 37.5
--- NOTE | 2023-12-19 08:37 | CT_ITS ---
STUDY: CT BRAIN WITHOUT CONTRAST REASON FOR EXAM: Female, 38 years old. Headache -- History of pseudotumor cerebri RADIATION DOSAGE (If Supplied By Facility): CTDIvol = ( 44.99 ) mGy, DLP = ( 745.49 ) mGycm TECHNIQUE: Transaxial CT imaging of the brain was performed without administration of intravenous contrast material. Individualized dose optimization techniques were used for this CT. COMPARISON: Comparison is made with prior study dated August 24, 2023. FINDINGS: Normal soft tissue structures. Normal calvarium. Normal size ventricles and extra-axial spaces for the patient''s age. Normal white matter tracts of the cerebral hemispheres. Normal basal ganglia and thalami. Normal brainstem. Normal cerebellum. There is no intracranial hemorrhage. There are no findings of an acute ischemic infarction. Normal visualized paranasal sinuses. CT/Brain/Head without Contrast IMPRESSION: Normal unenhanced CT scan of the brain. Electronically Signed: Molina Luis MD at 9:49 EDT ,
--- NOTE | 2023-12-19 08:37 | EKG12_ITS ---
Test Reason : VISION Blood Pressure : / mmHG Vent. Rate : 067 BPM Atrial Rate : 067 BPM P-R Int : 140 ms QRS Dur : 092 ms QT Int : 408 ms P-R-T Axes : 040 057 029 degrees QTc Int : 431 ms Normal sinus rhythm Normal ECG Confirmed by Maco Amin ([id number]), greeting card editor AMARI BOONE ([id number]) on 12/21/2023 7:21:06 AM Referred By: Confirmed By:Maco Amin
--- NOTE | 2023-12-19 08:50 | EDS_ITS ---
HPI History of Present Illness Chief Complaint: Vision Prob Informant: patient Narrative Narrative: Presenting with bilateral blurry vision and slight frontal headache and gait instability after waking at 7 AM. Diagnosed with pseudotumor cerebri a few years ago she is followed by neurology at [facility] ([place]). She reports her last therapeutic spinal tap has been 2 years ago. She is supposed to be on acetazolamide, history of noncompliance the last use was 2 weeks ago. She is followed by [facility] also. She has had a chronic dilated left pupil since her diagnosis. No visual changes from this. States adjustments from light to dark. She brought in by EMS states this feels similar to her pseudotumor cerebri. Denies fevers. Denies nausea or vomiting. Prior similar symptoms: Yes PFSH PFSH Medical History Bruising Cardiology follow-up encounter Easy bruising Generalized anxiety disorder Heartburn History of echocardiogram History of IBS Kidney stones Left ureteral calculus Major depressive disorder, recurrent severe without psychotic features Migraines Non-smoker Ovarian cyst PTSD (post-traumatic stress disorder) Shortness of breath on exertion Home Medications acetazolamide 500 mg capsule,extended release 500 mg PO BID PSEUDOTUMOR 06/23/21 [History Last Taken Unknown] phenazopyridine 200 mg tablet (Pyridium) 200 mg PO TID 6 doses #6 tabs 06/26/23 [Rx Last Taken Unknown] naproxen 500 mg tablet 500 mg PO BID PRN #14 tabs 12/14/23 [Rx Last Taken Unknown] Allergy/AdvReac Type Severity Reaction Status Date / Time adhesive tape AdvReac Other Verified 12/14/23 19:17 Surgical History History of section History of cholecystectomy History of umbilical hernia repair History of urethral stent Hx of cystoscopy Hx of dilation and curettage Hx of tympanostomy tubes Social History household members: spouse Smoking Status: Never smoker ROS ROS ED Constitutional Constitutional ED: Denies chills, fever(s) or sweats Eyes Eyes: Denies change in vision ENT ENT ED: Reports dizziness and other Details: Blurry vision ; Denies dysphagia or sore throat Cardiovascular Cardiovascular: Denies chest pain, leg edema, palpitations or racing heartbeat Respiratory/Chest Respiratory/Chest: Denies cough, dyspnea or dyspnea on exertion Gastrointestinal Gastrointestinal: Denies abdominal pain, diarrhea, nausea or vomiting Genitourinary Genitourinary ED: Denies dysuria, hematuria or urinary frequency Musculoskeletal Musculoskeletal: Denies back pain, extremity pain or neck pain Integumentary Denies rash or wounds Neurologic Neurologic: Denies headache(s), paresthesias or weakness EXAM Physical Exam Const Vital Signs: 12/19/23 08:23 12/19/23 08:23 Temperature 98.1 F Temperature Source Temporal Pulse Rate 74 Respiratory Rate 16 Blood Pressure 167/98 H Blood Pressure Mean 121 Pulse Ox 98 Oxygen Delivery Method Room Air Positive well nourished and well developed Constitutional Narrative: Nontoxic General Appearance ED: well developed and NAD HEENT Reports moist mucous membranes normocephalic and atraumatic Eyes conjunctivae normal Eyes Narrative: Left eye chronically fix dilated, normal finger counting in all 4 quadrants. Right eye: Reactive to light. Finger counting intact in all 4 quadrants. General Eye ED: Yes normal appearance of both eyes Neck no lymphadenopathy, supple and no meningeal signs General: Negative for tenderness Chest Wall Chest: Negative for tenderness Resp normal respiratory effort and normal air movement Effort and Inspection: symmetric chest movement; Negative for respiratory distress Cardio regular rate, regular rhythm and no murmurs Peripheral Pulses: pulses 2+ throughout GI normal to inspection, nondistended, normoactive bowel sounds and non-tender Palpation: Negative for guarding or rebound tenderness present Back/Spine no CVA tenderness and no thoracic nor lumbar tenderness Extremity normal to inspection General Extremety ED: Negative for edema or tenderness General Extremity: Negative for edema Neuro oriented x3, CN's II-XII intact bilaterally and no sensory deficits noted Sensorium / Orientation: awake and alert Skin no rashes or lesions noted and no wounds MDM MDM MDM Narrative Medical decision making narrative: Interventions / MDM: Differential diagnosis: Headache, blurry vision, history of pseudotumor cerebri Diagnosis considered but do not suspect: Intracranial hemorrhage however CT negative. My EKG interpretation: Sinus rate of 67, no ST or T wave changes. Imaging independently reviewed and interpreted by myself: CT brain: No acute process. External documents reviewed: N/A Test considered but not ordered:N/A ED course: Increasing headache blurry vision with history of pseudotumor cerebri. Reporting lightheaded symptoms unstable balance. History of noncompliance with medications last use 2 weeks ago. EKG obtained sinus rhythm. Will check labs and CT brain. 1010: CT brain negative labs are all stable. Treated with Reglan and Benadryl. Headache and blurry vision improved. She was ambulated with stable not unsteady. History of pseudotumor cerebri, noncompliant with her acetazolamide she states she does have at home. Discussed importance of taking her medication as prescribed. She understands this. With symptoms improve with gait stability on reevaluation, therapeutic lumbar puncture is not required. She will take her medication she will follow-up with her doctors as outpatient. Return precautions. All questions were answered. Re-evaluation: stable Disposition discussed with patient/family/significant other: Patient Case discussed with consulting clinician: N/A This note was generated with [employer] dictation software. It may contain incorrect words, spelling, and punctuation that were not noted in checking the note before signing. Lab Data Attestation: I reviewed the patient's lab results. Labs: Laboratory Results - last 24 hr 12/19/23 09:05 WBC 8.3 RBC 4.66 Hgb 11.6 L Hct 37.1 MCV 79.6 L MCH 24.9 L MCHC 31.3 L RDW Std Deviation 40.7 RDW Coeff of Theresa 14.0 Plt Count 307 MPV 9.5 Immature Gran % (Auto) 0.500 Neut % (Auto) 62.6 Lymph % (Auto) 27.4 Archer % (Auto) 7.5 Eos % (Auto) 1.2 Baso % (Auto) 0.8 Absolute Neuts (auto) 5.2 Absolute Lymphs (auto) 2.28 Nucleated RBC % 0 PT 13.1 INR 1.0 APTT 25.3 Sodium 141 Potassium 3.5 Chloride 110 H Carbon Dioxide 27.0 Anion Gap 4 L BUN 17 Creatinine 0.86 Estim Creat Clear Calc 110.99 Est GFR (MDRD) Af Amer 96 Est GFR (MDRD) Non-Af 79 BUN/Creatinine Ratio 19.8 Glucose 115 H Calcium 8.5 Serum , Qual NEGATIVE Radiography Diagnostic Testing: Clinical Impression(s) from Imaging Studies Brain CT 12/19/23 08:37 IMPRESSION: Normal unenhanced CT scan of the brain. Electronically Signed: Molina Luis MD at 9:49 EDT , Discharge Plan Triage Chief Complaint: Vision Prob ED Provider: Norris Saeed Dx/Rx/DC Orders Clinical Impression: Pseudotumor cerebri, Headache Instructions: Self-Care for Headaches Prescriptions: No Action acetazolamide 500 mg capsule, extended release 500 mg PO BID phenazopyridine [Pyridium] 200 mg tablet 200 mg PO TID Qty: 6 0RF naproxen 500 mg tablet 500 mg PO BID PRN Qty: 14 0RF Primary Care Provider: Care Physician,No Primary Referrals: Care Physician,No Primary [Primary Care Provider] - Activity Restrictions/Additional Instructions: Head CT EKG lab work all stable. Your symptoms improved with treatment. It is important for you to take your medication specially acetazolamide as scheduled. Follow-up with your doctors. If symptoms worsen, recurs, return to the ED for reevaluation. Disposition Disposition: Home, Self Care
[2023-12-19 09:16] LABS: Absolute Lymphocyte Count 2.28 X10^3/uL (0.83-4.51); Absolute Neutrophil Count 5.2 X10^3/uL (2.0-7.7); Basophil# 0.07 X10^3/uL; Basophil% 0.8 % (0-1); Eosinophils% 1.2 % (0-5); Hematocrit 37.1 % (37-47); Hemoglobin 11.6 g/dL (12.0-15.0); Lymphocyte # 2.28 X10^3/ul (0.83-4.51); Lymphocyte % 27.4 % (19-41); Mean Corp Hgb Conc 31.3 g/dL (32-36); Mean Corpuscular Hgb 24.9 pg (27.0-32.0); Mean Corpuscular Volume 79.6 fL (81-99); Mean Platelet Vol. 9.5 fl (6.2-12.0); Monocyte# 0.62 X10^3/uL; Monocyte% 7.5 % (0-10); NRBC Flagged by Analyzer 0 % (0-5); Neutrophil % 62.6 % (47-70); Platelet Count 307 K/mm3 (150-450); RBC Distribution Width SD 40.7 fl (35.1-43.9); Red Blood Count 4.66 M/mm3 (4.2-5.4); White Blood Count 8.3 K/mm3 (4.4-11.0)
[2023-12-19 09:22] LABS: Internal QC Validated? YES +Cl - CLEAR BKGD; Pregnancy, Serum, hCG Quali. NEGATIVE Negative
[2023-12-19 09:24] LABS: Anion Gap 4 (5-15); BUN 17 mg/dL (7-18); BUN/Creat Ratio 19.8 RATIO (10-20); Calcium,Total 8.5 mg/dL (8.5-10.1); Chloride 110 mmol/L (98-107); Creatinine, Serum 0.86 mg/dL (0.55-1.02); EST Glomerular Filtration Rate 79 mL/min (>60); Est Glom Filt Rate - Afr Amer 96 mL/min (>60); Estimated Creatinine Clearance 110.99 ml/min; Glucose 115 mg/dL (74-106); Potassium 3.5 mmol/L (3.5-5.1); Sodium Level 141 mmol/L (136-145)
[2023-12-19 09:25] LABS: Prothrombin Time (Protime)PT. 13.1 SECONDS (11.7-14.9)
[2023-12-19] MEDS: DiphenhydrAMINE 50 MG/ML Syringe 25 MG IV (09:25)
[2023-12-19] MEDS: Metoclopramide 10 MG/2 ML Vial IV (09:25)
[2023-12-19 09:26] LABS: Partial Thromboplast Time 25.3 Seconds (24.1-36.2)
[2023-12-19 10:23] VITALS: BP 137/78; PULSE 78; RESP 16; TEMP 36.6; O2SAT 98
[2023-12-19 10:44] VITALS: BP 136/78; PULSE 74; RESP 18; TEMP 36.6; O2SAT 99
== END 2023-12-19 10:45 | disposition home or self-care (01) ==
PROVIDERS: Emergency Provider Emergency Medicine; Visit Provider Emergency Medicine
DX: G93.2 Benign intracranial hypertension (principal); H57.04 Mydriasis; R51.9 Headache, unspecified; H53.8 Other visual disturbances; T50.2X6A Underdosing of carbonic-anhydrase inhibitors, benzothiadiazides and other diuretics, initial encounter; Z91.148 Patient's other noncompliance with medication regimen for other reason
CPT/HCPCS: 70450; 80048; 84703; 85025; 85610; 85730; 93005; 96374; 96375; 99282; A4216

== ENCOUNTER 2024-01-14 20:05 | Emergency (ER) | payer MEDICAID, SELFPAY ==
[2024-01-14 20:06] VITALS: BP 168/98; PULSE 88; RESP 16; TEMP 36.3; O2SAT 100; BMI 37.8
--- NOTE | 2024-01-14 21:28 | EDS_ITS ---
HPI History of Present Illness Chief Complaint: Complaint Informant: patient Onset/Context/Timing Onset: Today Context: Sudden Onset Timing: Intermittent Quality: Sharp Location: Right flank Worsened by: Laying down Relieved by: Nothing Narrative Narrative: Patient presents with back pain that began today. Patient states it began rather suddenly. Patient states it is mainly over the right flank area. Patient states it radiates around to her right abdomen. Patient describes it as sharp. Patient states it is worse when she lays down. Patient states nothing seems to help with it. Patient denies any fevers or chills. Patient states she did have some dysuria yesterday but denies any dysuria or hematuria today. Patient denies any nausea or vomiting. [facility] Medical History Bruising Cardiology follow-up encounter Easy bruising Generalized anxiety disorder Heartburn History of echocardiogram History of IBS Kidney stones Left ureteral calculus Major depressive disorder, recurrent severe without psychotic features Migraines Non-smoker Ovarian cyst PTSD (post-traumatic stress disorder) Shortness of breath on exertion Home Medications acetazolamide 500 mg capsule,extended release 500 mg PO BID PSEUDOTUMOR 06/23/21 [History Last Taken Unknown] phenazopyridine 200 mg tablet (Pyridium) 200 mg PO TID 6 doses #6 tabs 06/26/23 [Rx Last Taken Unknown] naproxen 500 mg tablet 500 mg PO BID PRN #14 tabs 12/14/23 [Rx Last Taken Unknown] Allergy/AdvReac Type Severity Reaction Status Date / Time adhesive tape AdvReac Other Verified 01/14/24 20:08 Surgical History History of section History of cholecystectomy History of umbilical hernia repair History of urethral stent Hx of cystoscopy Hx of dilation and curettage Hx of tympanostomy tubes Social History household members: spouse Smoking Status: Never smoker ROS ROS ED Constitutional Constitutional ED: Denies chills or fever(s) Eyes Eyes: Denies blurry vision or change in vision ENT ENT ED: Denies rhinorrhea or sore throat Cardiovascular Cardiovascular: Denies chest pain or palpitations Respiratory/Chest Respiratory/Chest: Denies cough or dyspnea Gastrointestinal Gastrointestinal: Denies nausea or vomiting Genitourinary Genitourinary ED: Reports dysuria; Denies hematuria Musculoskeletal Musculoskeletal: Reports back pain; Denies neck pain Integumentary Denies abscess or rash Neurologic Neurologic: Denies headache(s) or weakness Allergic/Immunologic Allergic/Immunologic ED: Denies mouth swelling or urticaria EXAM Physical Exam Const Vital Signs: 01/14/24 20:06 01/14/24 22:05 Temperature 97.4 F L 97.8 F Temperature Source Temporal Oral Pulse Rate 88 78 Respiratory Rate 16 16 Blood Pressure 168/98 H Blood Pressure Mean 121 Pulse Ox 100 97 Oxygen Delivery Method Room Air Room Air Positive well nourished and well developed General Appearance ED: well developed and NAD HEENT Reports moist mucous membranes Neck supple and no JVD Resp normal respiratory effort and clear to auscultation bilaterally Cardio regular rate and regular rhythm GI non-tender and non-distended Palpation: soft Back/Spine General Back: CVA tenderness right Extremity normal to inspection Neuro oriented x3, CN's II-XII intact bilaterally and no sensory deficits noted Sensorium / Orientation: alert Motor Exam: strength 5/5 throughout Psych mental status grossly normal MDM MDM MDM Narrative Medical decision making narrative: Differential diagnosis includes ureteral calculus, pyelonephritis, viral illness, pancreatitis, cholecystitis, and . CBC will be obtained to assess for leukocytosis and anemia. Comprehensive metabolic profile will be obtained to assess for hepatic function, renal function, and electrolyte abnormality. Lipase will be obtained to assess for pancreatitis. Urinalysis will be obtained to assess for urinary tract infection. Serum hCG will be obtained to assess for . Urine culture will be obtained to assess for urinary tract infection. CT scan of the abdomen pelvis will be obtained to assess for ureteral calculus. Lab Data Attestation: I reviewed the patient's lab results. Lab results narrative: CBC was reviewed. There is a mild leukocytosis of 14.0. The remainder is within normal limits. Comprehensive metabolic profile was reviewed and was essentially within normal limits. Lipase was reviewed and was normal. Serum hCG was reviewed and was negative. Urinalysis was reviewed. There are positive nitrates. Leukocyte esterase was 25. There is 1+ bacteria. There are 0 white blood cells seen. There is 0-5 epithelial cells noted. Labs: Laboratory Results - last 24 hr 01/14/24 21:40 WBC 14.0 H RBC 4.88 Hgb 12.2 Hct 38.4 MCV 78.7 L MCH 25.0 L MCHC 31.8 L RDW Std Deviation 39.9 RDW Coeff of Theresa 14.0 Plt Count 337 MPV 9.4 Immature Gran % (Auto) 0.300 Neut % (Auto) 60.3 Lymph % (Auto) 30.0 Barren % (Auto) 7.2 Eos % (Auto) 1.6 Baso % (Auto) 0.6 Absolute Neuts (auto) 8.5 H Absolute Lymphs (auto) 4.21 Nucleated RBC % 0 Sodium 139 Potassium 3.6 Chloride 110 H Carbon Dioxide 23.0 Anion Gap 6 BUN 15 Creatinine 0.97 Estim Creat Clear Calc 98.85 Est GFR (MDRD) Af Amer 83 Est GFR (MDRD) Non-Af 69 BUN/Creatinine Ratio 15.4 Glucose 90 Calcium 8.7 Total Bilirubin 0.20 AST 15 ALT 22 Alkaline Phosphatase 105 Total Protein 8.0 Albumin 3.6 Globulin 4.4 H Albumin/Globulin Ratio 0.8 L Lipase 32 Serum , Qual NEGATIVE Urine Color Yellow Urine Clarity Clear Urine pH 6.0 Ur Specific Norton 1.025 Urine Protein 15 H Urine Glucose (UA) Normal Urine Ketones Negative Urine Occult Blood 10 H Urine Nitrite Positive H Urine Bilirubin Negative Urine Urobilinogen 1 H Ur Leukocyte Esterase 25 H Urine RBC 0-5 SEEN Urine WBC 0 SEEN Ur Squamous Epith Cells 0-5 SEEN Urine Bacteria 1+ Urine Mucus 0 SEEN Radiography Diagnostic Testing: Clinical Impression(s) from Imaging Studies Abdomen/Pelvis CT 01/14/24 22:06 IMPRESSION: Trace new right pleural effusion. Similar partially detached-appearing ventral periumbilical hernia repair sheath. No associated bowel obstruction or fluid collections. Mild hepatosplenomegaly, stable. Electronically Signed: Ebonie Hill MD at 23:08 EDT , CT scan of the abdomen and pelvis was obtained recommended. There is no ureteral calculus noted. There is no acute process noted. There is no bowel obstruction or perforation is noted. There is a trace right pleural effusion noted. This was interpreted by the radiologist and was also independently reviewed by myself. Additional Tests and Interventions Additional Tests or Interventions: Urine culture was ordered. Treatment and Re-Evaluation :: Patient was given IV fluids, Toradol, and Zofran. Patient was advised of her findings. Patient was instructed to continue using Tylenol or ibuprofen as needed for pain. Patient was instructed to follow-up with her primary care physician in 5 to 7 days for further evaluation. Patient understood and was agreeable with the plan. All questions were answered. Discharge Plan Triage Chief Complaint: Complaint ED Provider: Pranav Biggs Dx/Rx/DC Orders Clinical Impression: Acute right flank pain, Elevated blood pressure reading Instructions: ED Flank Pain, Uncertain Cause Prescriptions: No Action acetazolamide 500 mg capsule, extended release 500 mg PO BID phenazopyridine [Pyridium] 200 mg tablet 200 mg PO TID Qty: 6 0RF naproxen 500 mg tablet 500 mg PO BID PRN Qty: 14 0RF Primary Care Provider: Care Physician,No Primary Referrals: Nancy Mayo [Non-Staff] - 5-7 Days Care Physician,No Primary [Primary Care Provider] - Disposition Disposition: Home, Self Care
[2024-01-14] MEDS: Ondansetron 4 MG/2 ML Vial IV (21:46)
[2024-01-14] MEDS: Ketorolac 30 MG/ML Syringe IV (21:46)
[2024-01-14] MEDS: 0.9% Normal Saline (1000mL) 1,000 ML 1000 ML IV (21:46)
[2024-01-14 21:52] LABS: Mucous, Urine 0 SEEN /hpf (<or=2+); White Blood Cells 0 SEEN /hpf (0-5)
[2024-01-14 21:53] LABS: Absolute Lymphocyte Count 4.21 X10^3/uL (0.83-4.51); Absolute Neutrophil Count 8.5 X10^3/uL (2.0-7.7); Basophil# 0.08 X10^3/uL; Basophil% 0.6 % (0-1); Color, Urine Yellow (Yellow); Eosinophil# 0.22 X10^3/uL; Eosinophils% 1.6 % (0-5); Glucose, Dipstick Normal (Normal); Hematocrit 38.4 % (37-47); Hemoglobin 12.2 g/dL (12.0-15.0); Ketone-Dipstick Negative (Negative); Leukocyte Esterase-Dipstick 25 /ul (Negative); Lymphocyte # 4.21 X10^3/ul (0.83-4.51); Mean Corp Hgb Conc 31.8 g/dL (32-36); Mean Corpuscular Volume 78.7 fL (81-99); Mean Platelet Vol. 9.4 fl (6.2-12.0); Monocyte# 1.01 X10^3/uL; Monocyte% 7.2 % (0-10); NRBC Flagged by Analyzer 0 % (0-5); Neutrophil # 8.46 X10^3/uL (2.7-7.7); Neutrophil % 60.3 % (47-70); Nitrite-Dipstick Positive (Negative); Occult Blood-Urine 10 /ul (Negative); Platelet Count 337 K/mm3 (150-450); Protein-Dipstick 15 mg/dl (Negative); RBC Distribution Width SD 39.9 fl (35.1-43.9); Red Blood Count 4.88 M/mm3 (4.2-5.4); Specific Gravity, Urine 1.025 (1.002-1.030); Urine Bilirubin Dipstick Negative (Negative); Urine Clarity Clear (Clear); Urine Urobilinogen 1 mg/dl (Normal)
[2024-01-14 22:00] LABS: Bacteria 1+ /hpf (None Seen); Red Blood Cells-Urine 0-5 SEEN /hpf (0-5); Squamous Epithelial Cells - UA 0-5 SEEN /hpf (5-10)
[2024-01-14 22:03] LABS: Internal QC Validated? YES +Cl - CLEAR BKGD; Pregnancy, Serum, hCG Quali. NEGATIVE Negative
[2024-01-14 22:05] VITALS: PULSE 78; RESP 16; TEMP 36.6; O2SAT 97
--- NOTE | 2024-01-14 22:06 | CT_ITS ---
EXAM: CT ABDOMEN AND PELVIS WITHOUT INTRAVENOUS CONTRAST CLINICAL INDICATION: Right flank pain TECHNIQUE: Helically acquired images were obtained of the abdomen and pelvis without intravenous contrast. This CT exam was performed using one or more of the following dose reduction techniques: automated exposure control, adjustment of the mA and/or kV according to patient size, and/or use of iterative reconstruction technique. RADIATION DOSE: 6 = 19.52 mGy, DLP = 1058.50 mGy-cm. COMPARISON: December 14, 2023. FINDINGS: LOWER THORAX: New trace right pleural effusion at the extreme right lower thorax. ABDOMEN: LIVER: Mildly enlarged at 19.7 cm craniocaudal. Homogeneous. GALLBLADDER AND BILE DUCTS: Cholecystectomy clips. No intra- or extrahepatic biliary ductal dilation. PANCREAS: Unremarkable. No focal cystic mass. SPLEEN: Borderline at 13.1 cm in length. ADRENALS: Unremarkable. No nodules. KIDNEYS AND URETERS: Unremarkable. Normal renal size and position. No hydronephrosis. STOMACH AND BOWEL: Unremarkable. No focal inflammatory change. No associated bowel obstruction. PELVIS: APPENDIX: Small appendix best seen on sagittal images 72 through 80. BLADDER: Unremarkable. REPRODUCTIVE: Unremarkable as visualized. No mass. ABDOMEN and PELVIS: INTRAPERITONEAL SPACE: Unremarkable. No ascites or other fluid collection. No free air. BONES/JOINTS: Mild posterior disc bulge-protrusion at L4-5 and L5-S1, similar. No visible high-grade spinal stenosis. No suspicious lytic or blastic abnormality. SOFT TISSUES: Similar appearance of the ventral hernia repair sheath just deep to the supraumbilical body wall, with what appears to be a detached inferior margin of the repair sheath, projecting posteriorly, best seen on sagittal images, and to the right and superior to the umbilicus, it does not extend to the the slight fat containing hernia bulging into the umbilicus. Slight fat-containing left inguinal hernia. VASCULATURE: Unremarkable. Abdominal aorta is non-dilated. LYMPH NODES: Unremarkable. No enlarged lymph nodes. CT/Abdomen/Pelvis without Cont IMPRESSION: Trace new right pleural effusion. Similar partially detached-appearing ventral periumbilical hernia repair sheath. No associated bowel obstruction or fluid collections. Mild hepatosplenomegaly, stable. Electronically Signed: Ebonie Hill MD at 23:08 EDT ,
[2024-01-14 22:11] LABS: ALB/GLOB Ratio 0.8 RATIO (0.9-2.4); AST(SGOT) 15 U/L (15-37); Alanine Aminotransfer ALT/SGPT 22 U/L (13-56); Albumin, Serum 3.6 g/dL (3.2-5.0); Alkaline Phosphatase 105 U/L (45-117); Anion Gap 6 (5-15); BUN 15 mg/dL (7-18); BUN/Creat Ratio 15.4 RATIO (10-20); Calcium,Total 8.7 mg/dL (8.5-10.1); Chloride 110 mmol/L (98-107); Creatinine, Serum 0.97 mg/dL (0.55-1.02); EST Glomerular Filtration Rate 69 mL/min (>60); Est Glom Filt Rate - Afr Amer 83 mL/min (>60); Estimated Creatinine Clearance 98.85 ml/min; Globulin 4.4 g/dL (2.2-4.2); Glucose 90 mg/dL (74-106); Lipase 32 U/L (13-75); Potassium 3.6 mmol/L (3.5-5.1); Sodium Level 139 mmol/L (136-145)
[2024-01-14 23:31] VITALS: BP 120/66; PULSE 79; RESP 18; TEMP 36.9; O2SAT 97
== END 2024-01-14 23:31 | disposition home or self-care (01) ==
PROVIDERS: Emergency Provider Emergency Medicine; Visit Provider Emergency Medicine
DX: R10.9 Unspecified abdominal pain (principal); R03.0 Elevated blood-pressure reading, without diagnosis of hypertension; M54.9 Dorsalgia, unspecified; F41.1 Generalized anxiety disorder
CPT/HCPCS: 74176; 80053; 81001; 83690; 84703; 85025; 87086; 87088; 96361; 96374; 96375; 99283; A4216; J2405

== ENCOUNTER 2024-04-28 09:44 | Emergency (ER) | payer MEDICAID, SELFPAY ==
[2024-04-28 09:44] VITALS: BP 179/99; BP 187/101; PULSE 57; PULSE 61; RESP 14; TEMP 36.6; O2SAT 100; BMI 37.3
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
[2024-04-28 10:11] VITALS: BP 148/106; PULSE 71; RESP 18; TEMP 36.8; O2SAT 97
== END 2024-04-28 10:13 | disposition home or self-care (01) ==
LOC: ED 10:13
PROVIDERS: Emergency Provider Emergency Medicine; Visit Provider Emergency Medicine
DX: M79.602 Pain in left arm (principal)
CPT/HCPCS: 99282

== ENCOUNTER 2024-07-02 18:23 | Emergency (ER) | payer MEDICAID, SELFPAY ==
[2024-07-02 18:24] VITALS: BP 153/104; PULSE 88; RESP 16; TEMP 36.6; O2SAT 98; BMI 37.5
--- NOTE | 2024-07-02 18:33 | ED.VIS.FEGU ---
HPI HPI - Female History of Present Illness Chief Complaint: Flank Pain PFSH PFSH Medical History Left ureteral calculus Bruising Easy bruising History of IBS Heartburn Shortness of breath on exertion Non-smoker History of echocardiogram Cardiology follow-up encounter Generalized anxiety disorder PTSD (post-traumatic stress disorder) Major depressive disorder, recurrent severe without psychotic features Migraines Kidney stones Ovarian cyst Home Medications ?Medication ?Instructions ?Recorded ?Last Taken ?Type acetazolamide 500 mg 500 mg PO BID PSEUDOTUMOR 06/23/21 Unknown History capsule,extended release phenazopyridine 200 mg tablet 200 mg PO TID 6 doses #6 tabs 06/26/23 Unknown Rx (Pyridium) naproxen 500 mg tablet 500 mg PO BID PRN #14 tabs 12/14/23 Unknown Rx aripiprazole 2 mg tablet 2 mg PO QHS 07/02/24 Unknown History ondansetron 4 mg disintegrating 4 mg PO Q8H PRN PRN Nausea #10 tabs 07/02/24 Unknown Rx tablet Allergy/AdvReac Type Severity Reaction Status Date / Time adhesive tape AdvReac Other Verified 04/28/24 09:45 Surgical History Hx of cystoscopy History of urethral stent Hx of dilation and curettage Hx of tympanostomy tubes History of section History of umbilical hernia repair History of cholecystectomy Social History household members: spouse Smoking Status: Never smoker EXAM Physical Exam Const Vital Signs: 07/02/24 18:24 07/02/24 20:43 07/02/24 21:30 Temperature 97.9 F 97.8 F Temperature Source Oral Pulse Rate 88 77 87 Respiratory Rate 16 18 16 Blood Pressure 153/104 H 134/78 H Blood Pressure Mean 120 96 Pulse Ox 98 98 100 Oxygen Delivery Method Room Air MDM MDM MDM Narrative Medical decision making narrative: HISTORY OF PRESENT ILLNESS: 38-year-old female presents with right flank pain that began 1 week ago. She also endorses urinating blood. No fever, no syncope. No smoking history. No family secondary to disease or aneurysms REVIEW OF SYSTEMS: Pertinent positives: Flank pain, hematuria Pertinent negatives: Vomiting, fever PHYSICAL EXAM: Nursing triage notes reviewed, Vital signs reviewed Constitutional: please see mdm HENT: MMM Eyes: Pupils equal round and reactive to light, Extraocular muscles intact Neck: No stridor, no JVD, full neck ROM Lungs: Clear to auscultation, No wheezing or rales. No increased work of breathing, no conversational dyspnea, no accessory muscle use, no nasal flaring. No respiratory distress noted Heart: Regular rate and rhythm, No murmurs, No rubs and No gallops, 2+ distal pulses (radial, femoral, posterior tibial) in all extremities Abdomen: Soft, there is no tenderness, rigidity, rebound or guarding, no obvious peritoneal signs, no palpable pulsatile abdominal masses, no auscultated abdominal bruit : No CVAT Extremities: No edema Neuro: No focal neurological deficits, cranial nerves II through XII intact, 5/5 strength in all extremities. Intact sensation to light touch in all extremities, 2+ reflexes bilateral patella tendons. Normal gait. No ataxia. Skin: No rash or lesions noted MEDICAL DECISION MAKING: Chief Complaint: Flank pain External records reviewed: [Reviewed prior imaging studies: Reviewed CT scan of the abdomen pelvis from January 2024 which showed no obstruction or fluid collections, no k hydronephrosis Factors affecting care: History of kidney stones Social determinants of health: none History obtained from others: none Consults: none [facility] Narrative: Patient was initially hemodynamically stable, afebrile and nontoxic-appearing. Exam with right CVA tenderness I considered the following differential diagnosis: Nephrolithiasis, pyelonephritis, UTI, AAA I obtained a broad lab and imaging workup to further elucidate etiology of the patient's complaints ALL IMAGES (IF OBTAINED) HAVE BEEN PERSONALLY REVIEWED AND INTERPRETED BY MYSELF. CT scan showed no evidence of nephrolithiasis pyelonephritis or AAA CBC leukocytosis suggestive of systemic inflammation, mild anemia, no thrombocytopenia noted BMP without evidence of significant electrolyte abnormalities, no anion gap, no acute kidney injury. Serum test is negative Urinalysis shows no evidence of urinary inflammation suggestive of UTI The synthesis of the patient history, physical exam, labs images suggest no acute life or limb threatening etiology the etiology of her pain is uncertain may be related to IBS or other nonlife threatening etiology. Patient is appropriate for discharge home with close GI and PCP follow-up. The patient and/or family, caregivers express understanding. The patient and/or family, caregivers agrees with the plan. Shared decision making: I will have a discussion with the patient and or visitors regarding risk/benefits of further testing or admission. They will be made aware of of the risk/benefits inherent in this decision they will be given the opportunity to voice understanding. Total critical care time today provided was at least 0 minutes. This excludes separately billable procedures. Critical care time (if documented) is secondary to the patient having high probability of clinically significant/life threatening deterioration in the patient's condition which required my urgent intervention. Impression: 1. Flank pain 2. History of nephrolithiasis Dispo: discharge This note was generated with Flaviar dictation software. It may contain incorrect words, spelling, and punctuation that were not noted in review of the chart prior to signing. Lab Data Labs: Laboratory Results - last 24 hr 07/02/24 07/02/24 18:36 18:53 WBC 13.3 H RBC 4.98 Hgb 11.8 L Hct 38.3 MCV 76.9 L MCH 23.7 L MCHC 30.8 L RDW Std Deviation 40.8 RDW Coeff of Theresa 14.9 H Plt Count TNP MPV 10.5 Immature Gran % (Auto) 0.700 Neut % (Auto) 66.4 Lymph % (Auto) 23.4 Kane % (Auto) 7.6 Eos % (Auto) 1.4 Baso % (Auto) 0.5 Absolute Neuts (auto) 8.9 H Absolute Lymphs (auto) 3.12 Nucleated RBC % 0 Differential Comment SCANNED Platelet Estimate ADEQUATE Sodium 140 Potassium 3.9 Chloride 113 H Carbon Dioxide 21.0 Anion Gap 7 BUN 17 Creatinine 0.84 Estim Creat Clear Calc 114.06 Est GFR (MDRD) Af Amer 98 Est GFR (MDRD) Non-Af 81 BUN/Creatinine Ratio 20.1 H Glucose 116 H Calcium 8.8 Serum , Qual NEGATIVE Urine Color Yellow Urine Clarity Sl. Cloudy Urine pH 6.0 Ur Specific [place] 1.025 Urine Protein 30 H Urine Glucose (UA) Normal Urine Ketones Negative Urine Occult Blood Negative Urine Nitrite Negative Urine Bilirubin Negative Urine Urobilinogen Normal Ur Leukocyte Esterase Negative Urine RBC 0-5 SEEN Urine WBC 0-5 SEEN Ur Squamous Epith Cells 0-5 SEEN Ur Transition Epith Cell 0-5 SEEN Urine Bacteria 1+ Urine Mucus Not Reportable Radiography Diagnostic Testing: Clinical Impression(s) from Imaging Studies Abdomen/Pelvis CT 07/02/24 18:48 IMPRESSION: Enlarged spleen. No renal stones or hydronephrosis. Electronically Signed: Gary Hatch DO at 21:01 EDT Reading Location ID and State: [facility] / [place] Tel [phone], Service support , Discharge Plan Triage Chief Complaint: Flank Pain ED Provider: Herve Awad Dx/Rx/DC Orders Instructions: ED Flank Pain, Uncertain Cause Prescriptions: New ondansetron 4 mg tablet,disintegrating 4 mg PO Q8H PRN PRN (Reason: Nausea) Qty: 10 0RF No Action acetazolamide 500 mg capsule, extended release 500 mg PO BID phenazopyridine [Pyridium] 200 mg tablet 200 mg PO TID Qty: 6 0RF naproxen 500 mg tablet 500 mg PO BID PRN Qty: 14 0RF aripiprazole 2 mg tablet 2 mg PO QHS Primary Care Provider: Care Physician,No Primary Referrals: Luc Quarles MD [Med Staff - Career Professional] - Activity Restrictions/Additional Instructions: Thank you for trusting us with your care today! Your labs images were reassuring. For exam was no evidence of , UTI, kidney stone, significant kidney abnormalities. The reason for your pain is unclear at this time. Recommend following with your primary care physician as well as gastroenterology at the next fillable appointment. In the meantime please take Zofran as needed for nausea and the following pain regimen. Please take Tylenol (2 pills, 650 mg), ibuprofen (2 pills, 400 mg) every 6 hours as needed for pain and fever control. Please return to the emergency department if your symptoms change or worsen. Please follow with your primary care physician for further outpatient evaluation and management. Print Language: Latvian Disposition Disposition: Home, Self Care Discharge Date/Time: 07/02/24 21:31
--- NOTE | 2024-07-02 18:48 | CT_ITS ---
STUDY: CT ABDOMEN AND PELVIS WITHOUT CONTRAST REASON FOR EXAM: Female, 38 years old. Rt flank pain r/o Kidney Stone RADIATION DOSAGE (If Supplied By Facility): CTDIvol = ( 21.88 ) mGy, DLP = ( 1147.80 ) mGycm TECHNIQUE: Transaxial images were obtained from the dome of the diaphragm to the symphysis pubis without oral contrast, and without intravenous contrast. Sagittal and coronal images were reconstructed. Individualized dose optimization techniques were used for this CT. COMPARISON: None. FINDINGS: The visualized lung bases are unremarkable. The visualized portions of the heart are within normal limits. Normal liver. Status post cholecystectomy. No dilatation of the extrahepatic biliary system. Enlarged spleen. Normal pancreas. Normal bilateral adrenal glands. Normal right kidney. Normal left kidney. Normal visualized stomach. Normal small intestine. Normal colon. The appendix is visualized and appears normal. Normal abdominal aorta. Normal inferior vena cava. Normal retroperitoneum. Normal urinary bladder. Normal abdominal wall. Normal osseous structures. CT/Abdomen/Pelvis without Cont IMPRESSION: Enlarged spleen. No renal stones or hydronephrosis. Electronically Signed: Gary Hatch DO at 21:01 EDT Reading Location ID and State: [facility] / [place] Tel [phone], Service support ,
[2024-07-02 18:57] LABS: Color, Urine Yellow (Yellow); Glucose, Dipstick Normal (Normal); Ketone-Dipstick Negative (Negative); Leukocyte Esterase-Dipstick Negative /ul (Negative); Nitrite-Dipstick Negative (Negative); Occult Blood-Urine Negative /ul (Negative); Protein-Dipstick 30 mg/dl (Negative); Specific Gravity, Urine 1.025 (1.002-1.030); Urine Bilirubin Dipstick Negative (Negative); Urine Clarity Sl. Cloudy (Clear); Urine Urobilinogen Normal (Normal)
[2024-07-02 19:10] LABS: Bacteria 1+ /hpf (None Seen)
[2024-07-02 19:11] LABS: Squamous Epithelial Cells - UA 0-5 SEEN /hpf (5-10); Transitional Epithelial - Ur 0-5 SEEN /hpf (0-5)
[2024-07-02 19:13] LABS: Red Blood Cells-Urine 0-5 SEEN /hpf (0-5); White Blood Cells 0-5 SEEN /hpf (0-5)
[2024-07-02] MEDS: Morphine 4 MG/ML Syringe IV (19:21)
[2024-07-02] MEDS: Metoclopramide 10 MG/2 ML Vial 5 MG IV (19:21)
[2024-07-02 19:27] LABS: Anion Gap 7 (5-15); BUN 17 mg/dL (7-18); BUN/Creat Ratio 20.1 RATIO (10-20); Calcium,Total 8.8 mg/dL (8.5-10.1); Chloride 113 mmol/L (98-107); Creatinine, Serum 0.84 mg/dL (0.55-1.02); EST Glomerular Filtration Rate 81 mL/min (>60); Est Glom Filt Rate - Afr Amer 98 mL/min (>60); Estimated Creatinine Clearance 114.06 ml/min; Glucose 116 mg/dL (74-106); Potassium 3.9 mmol/L (3.5-5.1); Sodium Level 140 mmol/L (136-145)
[2024-07-02 19:36] LABS: Absolute Lymphocyte Count 3.12 X10^3/uL (0.83-4.51); Absolute Neutrophil Count 8.9 X10^3/uL (2.0-7.7); Basophil# 0.07 X10^3/uL; Basophil% 0.5 % (0-1); Eosinophil# 0.18 X10^3/uL; Eosinophils% 1.4 % (0-5); Hematocrit 38.3 % (37-47); Hemoglobin 11.8 g/dL (12.0-15.0); Lymphocyte # 3.12 X10^3/ul (0.83-4.51); Lymphocyte % 23.4 % (19-41); Mean Corp Hgb Conc 30.8 g/dL (32-36); Mean Corpuscular Hgb 23.7 pg (27.0-32.0); Mean Corpuscular Volume 76.9 fL (81-99); Mean Platelet Vol. 10.5 fl (6.2-12.0); Monocyte# 1.01 X10^3/uL; Monocyte% 7.6 % (0-10); NRBC Flagged by Analyzer 0 % (0-5); Neutrophil # 8.86 X10^3/uL (2.7-7.7); Neutrophil % 66.4 % (47-70); POSITIVE COUNT YES; RBC Distribution Width CV 14.9 % (11.6-14.6); RBC Distribution Width SD 40.8 fl (35.1-43.9); Red Blood Count 4.98 M/mm3 (4.2-5.4); White Blood Count 13.3 K/mm3 (4.4-11.0)
[2024-07-02 19:38] LABS: Differential Indicated SCAN CRITERIA MET
[2024-07-02 19:47] LABS: Internal QC Validated? YES +Cl - CLEAR BKGD; Pregnancy, Serum, hCG Quali. NEGATIVE Negative
--- OUTSIDE RECORDS SUMMARY | 2024-07-02 19:57 | XMS RPT_ITS | CCD ---
Author Organization [facility] Care Team Providers Care Wiring Mechanic Name Role Phone ASCENC[facility] L[facility]IS G. Unavailable Unavailable GANHELEN SASHA CChrista Unavailable Unavailable GANHELEN SASHA CChrista Unavailable Unavailable JOVANNY TILLMAN Unavailable Unavailable JOVANNY TILLMAN Unavailable Unavailable Dasha Liang Primary Care Provider [phone] PHYSICIAN, NONE Primary Care Physician Unavailab Rc West Unavailable [phone] Rc Novak MD Unavailable [phone] Kemar Mantilla MD Primary Care Provider Kemar Mantilla MD Primary Care Provider [phone] PHYSICIAN, NONE Primary Care Unavailable ANGELICA FOX Attending Unavaila ble PHYSICIAN, NONE Primary Care Unavailable ROC BURT MD Attending Unavailable JOHN CORDOVA Attending Unavailable PHYSICIAN, NONE Primary Care Unavailable PHYSICIAN, NONE Primary Care Unavailable CALISTA MAS MD Attending Unavailable PHYSICIAN, NONE Primary Care Unavailable CALSITA MAS MD Attending Unavailable PHYSICIAN, NONE Primary Care Unavailable CALISTA MAS MD Attending Unavailable Allegra Colón MD Unavailable Kemar Mantilla MD Primary Care Provider PHYSICIAN, NONE Primary Care Unavailable OMEGA HARRIS MD Attending Unavailable SPENCER NUNEZ Referring Unavailable ALLEGRA COLÓN Attending Unavailable ALLEGRA COLÓN Referring Unavailable SILVESTRE JUSTICE Attending Unavailable CRESENCIO BOYLE Referring Unavailable ALLEGRA COLÓN Referring Unavailable BILLY ALEXANDRA Attending Unavailable BILLY ALEXANDRA Admitting Unavailable ALLEGRA COLÓN Referring Unavailable ALLEGRA COLÓN Referring Unavailable ALLEGRA COLÓN Attending Unavailable KEMAR MANTILLA Primary Care Unavailable ALLEGRA COLÓN Referring Unavailable CHULA NICOLAS Attending Unavailable DANIELLE HUNTER Referring Unavailable KEMAR MANTILLA Primary Care Unavailable AYLEEN PICHARDO Attending Unavailable SPENCER NUNEZ Attending Unavailable RC NOVAK Referring UnavailKEMAR Garcia Primary Care Unavailable ELIDA REYNOLDS Attending Unavailable KEMAR MANTILLA Primary Care Unavailable DANIELLE HUNTER Referring Unavailable KEMAR MANTILLA Primary Care Unavailable Allergies Allergy Classification Reported Allergen(s) Allergy Type Date of Onset Reaction(s) Facility (20 sources) Adhesive Tape; Translations: [ADHESIVE TAPE (ROSINS)] Propensity to adverse reactions (disorder) 3 Rash [facility] Other [place] [facility] (15 sources) Adhesive Tape Allergy to substance Burn injury (morphologic abnormality) [facility] Medications Current Medications Medication Drug Class(es) Dates Sig (Normalized) Sig (Original) acetaminophen 325 mg / HYDROcodone bitartrate 5 mg oral tablet (2 sources) Opioid Agonist Start: 06-12-2024 End: 06-15-2024 take 1 tablet by mouth every six hours as needed for pain Wilson 325- 5 mg oral tablet Dose = 1 tab(s), Oral, q6h, PRN As needed for severe pain, X 3 day(s), # 12 tab(s), 0 Refill(s), Abdominal pain, 106.8 Start Date: 06/12/24 Stop Date: 06/15/24 Status: Ordered take 1 tablet by mouth once HYDR Ocodone-Acetaminophen (VICODIN) 5-300 mg tab Take 1 tablet by mouth one time only. 0 Active Comment on above: Take 1 tablet by forrest th one time only. acetaminophen 325 mg / oxyCODONE hydrochloride 5 mg oral tablet (6 sources) Opioid Agonist Start: 02-09-2024 acetaminophen-oxyCODO NE 325 mg-5 mg oral tablet 0 Refill(s), 106.8 Start Date: 02/09/24 Status: Ordered Start: 01-28-2024 End: 01-30-2024 take 1 tablet by mouth every six hours as needed for pain Percocet 5 mg-325 mg oral tablet Dose = 1 tab(s), Oral, q6h, PRN for pain, X 2 day(s), # 8 tab(s), 0 Refill(s), Kidney stone, 106.8 Start Date: 01/28/24 Stop Date: 01/30/24 Status: Ordered Start: 02-12-2023 End: 02-15-2023 take 1 tablet by mouth every four hours as needed for pain acetaminophen-oxyCODONE 325 mg-5 mg oral tablet Dose = 1 tab(s), Oral, q4h, PRN for pain, X 3 day(s), # 18 tab(s), 0 Refill(s), Pharmacy: [facility]/pharmacy #[id number], Status post laparoscopy Status post ovarian cystectomy, 167.6, cm, 02/12/23 17:27:00 EDT, Height, 106.8 Start Date: 02/12/23 Stop Date: 02/15/23 Status: Ordered 12 hr acetaZOLAMIDE 500 mg extended release oral capsule (20 sources) Carbonic Anhydrase Inhibitor Start: 02-20-2024 End: 06-19-2024 take 2 capsules by mouth twice daily acetaZOLAMIDE SR (DIAMOX SEQUELS) 500 mg capsule Indications: IIH (idiopathic intracranial hypertension) Take 2 capsules by mouth two times a day. 120 capsule 4 05/20/2024 Active Start: 04-26-2023 End: 02-20-2024 take 1 capsule by mouth twice daily acetaZOLAMIDE 500 mg oral capsule, extended release TAKE 1 CAPSULE BY MOUTH TWICE A DAY Start Date: 05/31/23 Status: Ordered Start: 08-05-2019 take 1 tablet by forrest th twice daily acetaZOLAMIDE (DIAMOX) 250 mg tablet Take 1 tablet by mouth twice daily. 180 tablet 3 08/05/2019 Active Start: 07-31-2019 take 1 capsule by [facility] twice daily acetaZOLAMIDE SR (DIAMOX SEQUELS) 500 mg capsule Take 1 capsule by mouth twice daily. 180 capsule 3 07/31/2019 Active Start: 05-25-2019 End: 06-24-2019 take 2 tablets by mouth once daily acetaZOLAMIDE (DIAMOX) 250 MG tablet Take 2 tablets by mouth daily 30 tablet 0 05/25/2019 06/24/2019 Active Start: 05-22-2019 End: 05-24-2019 acetaZOLAMIDE (DIAMOX) table t 500 mg Comment on above: Take 1 capsule by mo uth twice daily. Take 1 tablet by forerst th twice daily. aspirin 325 mg oral tablet (3 sources) Platelet Aggregation Inhibitor, Nonsteroidal Anti-inflammatory Drug Start: 06-12-20 End: 12-10-19 take 1 tablet by mouth once daily aspirin 325 mg tablet Indications: IIH (idiopathic intracranial hypertension) , Papilledema associated with increased intracranial pressure Take 1 tablet by mouth once daily. 90 tablet 1 06/12/2024 12/09/2024 Active benoxinate hydrochloride 4 mg/ml / fluorescein sodium 3 mg/ml ophthalmic solution (2 sources) Diagnostic Dye Start: 03-26-20 End: 04-07-20 fluorescein-benoxina te 0.3-0.4 % 1 Drop (FLURESS) Start: 05-04-2023 End: 05-04-2023 fluorescein-benoxinate 0.25- 0.4 % 1 Drop (FLURESS) clopidogrel 75 mg oral tablet (3 sources) P2Y12 Platelet Inhibitor Start: 06-12-2024 End: 09-10-2024 take 1 tablet by mouth once daily clopidogrel (PLAVIX) 75 mg tablet Indications: IIH (idiopathic intracranial hypertension) , Papilledema associated with increased intracranial pressure Take 1 tablet by mouth once daily. 90 tablet 06/12/2024 09/10/2024 Active cyclobenzaprine hydrochloride 10 mg oral tablet (3 sources) Muscle Relaxant Start: 05-24-2019 End: 06-04-2019 take 1 tablet by mouth three times daily cyclobenzaprine (FLEXERIL) 10 MG tablet Take 1 tablet by mouth 3 times daily for 10 days 30 tablet 0 05/25/2019 06/04/2019 Active diazePAM 5 mg oral tablet (5 sources) Benzodiazepine Start: 04-17-2024 End: 04-17-2024 take 1-2 tablets by mouth once diazePAM (VALIUM) 5 mg tablet Indications: IIH (idiopathic intracranial hypertension) Take 1-2 tablets by mouth one time only for 1 dose. 2 tablet 0 04/17/2024 04/17/2024 Active take 1 tablet by forrest th every six hours as needed diazePAM (VALIUM) 5 mg tablet Take 5 mg by mouth every 6 hours as needed for anxiety (Patient took 10mg total). Active famotidine 20 mg oral tablet (2 sources) Histamine-2 Receptor Antagonist Start: 05-23-2019 famotidine (PEPCID) tablet 20 mg Start: 05-22-2019 End: 05-23-2019 famotidine (PEPCID) injectio n 20 mg ibuprofen 600 mg oral tablet (20 sources) Nonsteroidal Anti-inflammatory Drug Start: 02-12-2023 End: 03-14-2023 take 1 tablet by mouth every six hours as needed ibuprofen (MOTRIN) 600 mg tablet Take 600 mg by mouth every 6 hours as needed. 02/12/2023 Active Start: 03-15-2021 ibuprofen 600 mg oral tablet Dose : 600 mg = 1 tab(s), Oral, q6hr, PRN as needed for pain, # 30 tab(s), 1 Refill(s), Pharmacy: [facility]/pharmacy #[id number], 167.6, cm, 03/15/21 15:21:00 EDT, Height, kg, 03/15/21 14:50:00 EDT, Dosing Weight Start Date: 03/15/21 Status: Ordered Comment on above: Take 600 mg by mouth every 6 hours as needed. iv contrast (will be provided with radiology test) (16 sources) Start: 03-26-2024 iv contrast (will be provided with radiology test) Indications: IIH (idiopathic intracranial hypertension) , Pulsatile tinnitus MRV Brain Inject, intravenously, once for 1 dose. No IV access, insert saline lock prior to the beginning of sedation, infusion, injection of imaging exam. Discontinue saline lock post exam. If Pt. has a central line or IVAD, may access for administration according to line specific nursing protocol. Once exam is complete flush line and de-access according to line specific nursing protocol in the MR contrast administration guidelines link. 1 Each 03/26/2024 Suspended Start: 03-26-2024 iv contrast (w ill be provided with radiology test) Indications: IIH (idiopathic intracranial hypertension) , Pulsatile tinnitus MRV Brain Inject, intravenously, once for 1 dose. No IV access, insert saline lock prior to the beginning of sedation, infusion, injection of imaging exam. Discontinue saline lock post exam. If Pt. has a central line or IVAD, may access for administration according to line specific nursing protocol. Once exam is complete flush line and de-access according to line specific nursing protocol in the MR contrast administration guidelines link. 1 Each 03/26/2024 Active Start: 03-26-2024 iv contrast (w ill be provided with radiology test) Indications: IIH (idiopathic intracranial hypertension) , Pulsatile tinnitus MRV Brain Inject, intravenously, once for 1 dose. No IV access, insert saline lock prior to the beginning of sedation, infusion, injection of imaging exam. Discontinue saline lock post exam. If Pt. has a central line or IVAD, may access for administration according to line specific nursing protocol. Once exam is complete flush line and de-access according to line specific nursing protocol in the MR contrast administration guidelines link. 1 Each 0 03/26/2024 Active LORazepam 1 mg oral tablet (20 sources) Benzodiazepine Start: 04-02-2024 LORazepam (ATI VAN) 1 mg tablet Take 1 mg by mouth as needed for anxiety. 04/02/2024 Active Start: 02-12-2023 LORazepam 0.5 mg oral tablet Dose : 0.5 mg = 1 tab(s), Oral, BID, PRN as needed for anxiety, 0 Refill(s), 106.8 Start Date: 02/12/23 Status: Ordered Start: 05-23-2019 End: 05-23-2019 LORazepam (ATIVAN) tablet 0. 5 mg Start: 05-22-2019 End: 05-22-2019 LORazepam (ATIVAN) injection 0.5 mg Comment on above: Take 0.5 mg by mouth as needed. Miscellaneous Medical Supply (BLOOD PRESSURE CUFF) (20 sources) Start: 09-13-2023 Miscellaneous Medical Supply (BLOOD PRESSURE CUFF) Indications: Hypertension, unspecified type 1 Each once daily. 1 Each 09/13/2023 Suspended Start: 09-13-2023 Miscellaneous Medical Supply (BLOOD PRESSURE CUFF) Indications: Hypertension, unspecified type 1 Each once daily. 1 Each 09/13/2023 Active Start: 09-13-2023 Miscellaneous Medical Supply (BLOOD PRESSURE CUFF) Indications: Hypertension, unspecified type 1 Each once daily. 1 Each 0 09/13/2023 Active Comment on above: 1 Each once daily. naproxen 500 mg delayed release oral tablet (2 sources) Nonsteroidal Anti-inflammatory Drug Start: 02-09-2024 End: 02-14-2024 naproxen 500 mg oral delayed release tablet Dose : 500 mg = 1 tab(s), Oral, BIDM, PRN Pain, X 5 day(s), # 10 tab(s), 0 Refill(s), 6/6/24 10:51:00 AM EDT Start Date: 02/09/24 Stop Date: 02/14/24 Status: Ordered Start: 12-07-2015 take 1 tablet by forrest th twice daily at mealtime for pain Naproxen Sodium 550 mg tablet Take 1 tablet by mouth twice daily with meals. For pain. 30 tablet 1 12/07/2015 Active Comment on above: Take 1 tablet by forrest th twice daily with meals. For pain. ofloxacin 3 mg/ml otic solution (2 sources) Quinolone Antimicrobial Start: 03-25-2024 End: 04-01-2024 ofloxacin (FLOXIN) 0.3 % otic solution Indications: Acute otitis externa of left ear, unspecified type , Otorrhea of left ear Use 10 Drops in both ears two times a day for 7 days. 5 mL 0 03/25/2024 04/01/2024 Active ondansetron 4 mg oral tablet (17 sources) Serotonin-3 Receptor Antagonist Start: 01-28-2024 End: 02-02-2024 Zofran 4 mg oral tablet Dose : 4 mg = 1 tab(s), Oral, q8h, PRN Nausea/Vomiting, X 5 day(s), # 15 tab(s), 0 Refill(s), 02/02/24 11:09:00 PM EDT Start Date: 01/28/24 Stop Date: 02/02/24 Status: Ordered Start: 02-12-2023 End: 02-17-2023 Zofran 4 mg oral tablet Dose : 4 mg = 1 tab(s), Oral, q6h, # 20 tab(s), 0 Refill(s), Pharmacy: [facility]/pharmacy #[id number], 167.6, cm, 02/12/23 17:27:00 EDT, Height, kg, 02/12/23 17:27:00 EDT, Dosing Weight Start Date: 02/12/23 Stop Date: 02/17/23 Status: Ordered Start: 01-28-2023 End: 02-02-2023 Zofran 4 mg oral tablet Dose : 4 mg = 1 tab(s), Oral, q6h, # 20 tab(s), 0 Refill(s), Pharmacy: [facility]/pharmacy #[id number], 167.3, cm, 01/28/23 0:24:00 EDT, Height Start Date: 01/28/23 Stop Date: 02/02/23 Status: Ordered Start: 05-26-2019 End: 05-26-2019 ondansetron (ZOFRAN) injecti on 4 mg Start: 05-22-2019 ondansetron (Z OFRAN) injection 4 mg oxyCODONE hydrochloride 5 mg oral tablet (4 sources) Opioid Agonist Start: 02-12-2023 oxyCODONE 5 mg oral tablet ( IMMEDIATE release ) Dose : 5 mg = 1 tab(s), Oral, q6h, PRN for pain, # 12 tab(s), 0 Refill(s), 106.8 Start Date: 02/12/23 Status: Ordered Start: 02-07-2023 End: 02-09-2023 oxyCODONE 5 mg oral tablet ( IMMEDIATE release ) Dose : 5 mg = 1 tab(s), Oral, q6h, X 2 day(s), # 7 tab(s), 0 Refill(s), 02/09/23 19:27:00 EDT, Ectopic Abdominal pain, 104.5 Start Date: 02/07/23 Stop Date: 02/09/23 Status: Ordered pantoprazole 40 mg delayed release oral tablet (3 sources) Proton Pump Inhibitor Start: 06-12-2024 End: 09-10-2024 take 1 tablet by mouth once daily pantoprazole DR (PROTONIX) 40 mg tablet Indications: IIH (idiopathic intracranial hypertension) , Papilledema associated with increased intracranial pressure Take 1 tablet by mouth once daily. 90 tablet 06/12/2024 09/10/2024 Active phenylephrine hydrochloride 25 mg/ml ophthalmic solution (3 sources) alpha-1 Adrenergic Agonist Start: 03-26-2024 End: 04-07-2024 PHENYLephrine 2.5 % 1 Drop (AK-DILATE, JACLYN-SYNEPHRINE) Start: 05-04-2023 End: 05-04-2023 PHENYLephrine 2.5 % 1 Drop ( AK-DILATE, JACLYN-SYNEPHRINE) proparacaine hydrochloride 5 mg/ml ophthalmic solution (2 sources) Local Anesthetic Start: 03-26-2024 End: 04-07-2024 proparacaine 0.5 % 1 Drop (ALCAINE) Start: 05-04-2023 End: 05-04-2023 proparacaine 0.5 % 1 Drop (A LCAINE) propranolol hydrochloride 10 mg oral tablet (3 sources) beta-Adrenergic Son Start: 02-09-2024 propra nolol 10 mg oral tablet 0 Refill(s) Start Date: 02/09/24 Status: Ordered sennosides, intermediate 8.6 mg oral tablet (1 source) Start: 05-22-2019 senna (SENOKOT ) tablet 8.6 mg 3 ml sodium chloride 9 mg/ml injection (4 sources) Start: 05-22-2019 sodium chlorid e flush 0.9 % injection 10 mL sodium chloride flush 0.9 % injection 3 mL (1 source) Start: 05-26-2019 sodium chlorid e flush 0.9 % injection 3 mL tropicamide 10 mg/ml ophthalmic solution (3 sources) Anticholinergic Start: 03-26-2024 End: 04-07-2024 tropicamide 1 % 1 Drop (MYDRIACYL) Start: 05-04-2023 End: 05-04-2023 tropicamide 1 % 1 Drop (MYDR IACYL) 24 hr venlafaxine 75 mg extended release oral capsule (20 sources) Serotonin and Norepinephrine Reuptake Inhibitor Start: 02-09-2024 venlafaxine 75 mg oral capsule, extended release 0 Refill(s) Start Date: 02/09/24 Status: Ordered Start: 12-31-2023 take 1 capsule by mo ut every hour venlafaxine ER (EFFEXOR XR) 75 mg 24 hr capsule Take 1 capsule by mouth every afternoon. 12/31/2023 Active Start: 02-12-2023 venlafaxine 15 0 mg oral capsule, extended release Dose : 150 mg = 1 cap(s), Oral, qDay, # 90 cap(s), 0 Refill(s) Start Date: 02/12/23 Status: Ordered Start: 11-20-2017 End: 05-22-2019 take 1 capsule by mouth once daily at breakfast venlafaxine (EFFEXOR XR) 37.5 MG extended release capsule Take 1 capsule by mouth daily (with breakfast) 30 capsule 0 11/20/2017 05/22/2019 Discontinued (LIST CLEANUP) Completed/Discontinued Medications Medication Drug Class(es) Dates Sig (Normalized) Sig (Original) acetaminophen 325 mg oral tablet (5 sources) Start: 06-12-2024 End: 06-12-2024 take 1 dose by mouth once 650 mg, ORAL, ONCE, 1 dose, On Paulina 06/12/24 at 1300 Start: 05-25-2019 take 2 tablets by mo uth every eight hours acetaminophen (TYLENOL) 500 MG tablet Take 2 tablets by mouth every 8 hours 60 tablet 0 05/25/2019 Active Start: 05-24-2019 acetaminophen (TYLENOL) tablet 1,000 mg Start: 05-22-2019 End: 05-24-2019 acetaminophen (TYLENOL) tabl et 650 mg acyclovir (ZOVIRAX) 595 mg in dextrose 5 % 100 mL IVPB (1 source) Start: 05-23-2019 End: 05-24-2019 acyclovir (ZOVIRAX) 595 mg in dextrose 5 % 100 mL IVPB buPROPion hydrochloride 100 mg oral tablet (1 source) Aminoketone Start: 03-05-2018 take 4 tablets by mouth once daily buPROPion (WELLBUTRIN) 100 mg tablet Take 400 mg by mouth once daily. 0 03/05/2018 Active Comment on above: Take 400 mg by mouth once daily. calcium chloride 0.0014 meq/ml / potassium chloride 0.004 meq/ml / sodium chloride 0.103 meq/ml / sodium lactate 0.028 meq/ml injectable solution (2 sources) Start: 05-24-2019 End: 05-25-2019 lactated ringers bolus ciprofloxacin 500 mg oral tablet (1 source) Quinolone Antimicrobial Start: 07-18-2018 take 1 tablet by mouth twice daily ciprofloxacin HCl (CIPRO) 500 mg tablet Take 500 mg by mouth twice daily. 0 07/18/2018 Active Comment on above: Take 500 mg by mouth twice daily. 1 ml dexamethasone phosphate 4 mg/ml injection (1 source) Corticosteroid Start: 05-22-2019 End: 05-23-2019 dexamethasone (DECADRON) injection 4 mg gabapentin 300 mg oral capsule (1 source) Anti-epileptic Agent Start: 06-25-2018 gabapentin (NEURONTIN) 300 mg capsule Take 400 mg by mouth once daily. 0 06/25/2018 Active Comment on above: Take 400 mg by mouth once daily. gadobenate dimeglumine (MULTIHANCE) injection 20 mL (1 source) Start: 05-22-2019 End: 05-22-2019 gadobenate dimeglumine (MULTIHANCE) injection 20 mL 1 ml ketorolac tromethamine 30 mg/ml cartridge (2 sources) Nonsteroidal Anti-inflammatory Drug, Cyclooxygenase Inhibitor Start: 05-22-2019 End: 05-24-2019 ketorolac (TORADOL) injection 30 mg 10 ml lidocaine hydrochloride 10 mg/ml injection (6 sources) Antiarrhythmic, Amide Local Anesthetic Start: 05-26-2019 End: 05-26-2019 lidocaine PF 1 % injection 2 mL Start: 05-24-2019 End: 05-24-2019 apply 1 dose transdermal route once daily lidocaine 4 % external patch Place 1 patch onto the skin daily 1 box 0 05/25/2019 Active Start: 05-23-2019 End: 05-23-2019 lidocaine PF 1 % injection lisinopril 10 mg oral tablet (3 sources) Angiotensin Converting Enzyme Inhibitor Start: 09-13-2023 End: 01-08-2024 take 1 tablet by mouth once daily lisinopril (ZESTRIL) 10 mg tablet Indications: Hypertension, unspecified type Take 1 tablet by mouth once daily. 30 tablet 1 09/13/2023 01/08/2024 Discontinued Comment on above: Take 1 tablet by forrest once daily. magnesium sulfate 1 g in dextrose 5 % 100 mL IVPB (1 source) Start: 05-22-2019 End: 05-23-2019 magnesium sulfate 1 g in dextrose 5 % 100 mL IVPB metroNIDAZOLE 500 mg oral tablet (1 source) Nitroimidazole Antimicrobial Start: 07-18-2018 metroNIDAZOLE (FLAGYL) 500 mg tablet Take 500 mg by mouth. 0 07/18/2018 Active Comment on above: Take 500 mg by mouth . mupirocin 0.02 mg/mg topical ointment (1 source) RNA Synthetase Inhibitor Antibacterial End: 05-22-2019 mupirocin (BACTROBAN) 2 % ointment Apply topically 3 times daily Apply topically 3 times daily. 0 05/22/2019 Discontinued omeprazole 20 mg delayed release oral capsule (1 source) Proton Pump Inhibitor Start: 07-29-2018 take 2 capsules by mouth once daily omeprazole (PRILOSEC) 20 mg capsule Take 2 capsules by mouth once daily. 60 capsule 3 07/29/2018 Active Comment on above: Take 2 capsules by outh once daily. VIT/IRON FUMARATE/FA ( VITAMIN ORAL) (1 source) VIT/IRO N FUMARATE/FA ( VITAMIN ORAL) Take by mouth. 0 Active Comment on above: Take by mouth. QUEtiapine 25 mg oral tablet (1 source) Atypical Antipsychotic Start: 11-19-2017 End: 05-22-2019 take 1.5 tablets by mouth once daily QUEtiapine (SEROQUEL) 25 MG tablet Take 1.5 tablets by mouth nightly 45 tablet 0 11/19/2017 05/22/2019 Discontinued Problems Active Problems Problem Classification Problem Date Documented Date Episodic/Chronic Acute and unspecified renal failure (3 sources) Acute injury of kidney; Translations: [XENIA (acute kidney injury)] 05-24-2019 Anxiety disorders (20 sources) Anxiety; Translations: [Posttraumatic stress disorder] Onset: 11-25-2013 12-07-2013 Chronic Blindness and vision defects (5 sources) Transient visual loss; Translations: [Localized visual field defect] Onset: 05-25-2019 05-25-2019 Episodic Calculus of urinary tract (16 sources) Kidney stone; Translations: [Calculus of kidney] Onset: 01-28-2024 01-01-2015 Episodic Disorders of lipid metabolism (3 sources) Hyperlipidemia; Translations: [Other hyperlipidemia] Onset: 05-23-2019 05-23-2019 Chronic Ectopic (10 sources) Ectopic ; Translations: [Unspecified ectopic without intrauterine ] Onset: 02-07-2023 01-28-2023 Episodic Essential hypertension (20 sources) Hypertensive disorder; Translations: [Essential (primary) hypertension] Onset: 07-18-2013 12-07-2013 Chronic Fever of unknown origin (1 source) Fever; Translations: [Fever, unspecified] Episodic Headache; including migraine (20 sources) Migraine with aura; Translations: [Migraine with aura, not intractable, without status migrainosus] Onset: 02-27-2023 02-27-2023 Chronic Mood disorders (20 sources) Depressive disorder; Translations: [Severe recurrent major depression without psychotic features] Onset: 11-25-2013 05-22-2019 Chronic Other and ill-defined cerebrovascular disease (1 source) Cerebrovascular disease, unspecified; Translations: [Disorder of intracranial venous sinus] Onset: 06-21-2024 Chronic Other and ill-defined cerebrovascular disease (2 sources) Disorder of intracranial venous sinus; Translations: [Cerebrovascular disease, unspecified] Onset: 06-21-2024 06-21-2024 Chronic Other complications of (1 source) Chemical ; Translations: [Inappropriate change in quantitative human chorionic gonadotropin (hCG) in early ] Episodic Other connective tissue disease (1 source) Pain of left lower leg; Translations: [Pain in left lower leg] Onset: 03-05-2023 Episodic Other connective tissue disease (3 sources) Pain in left foot; Translations: [Pain in left foot] 12-13-2023 Episodic Other connective tissue disease (1 source) Plantar fasciitis of left foot; Translations: [Plantar fascial fibromatosis] 01-08-2024 Episodic Other ear and sense organ disorders (1 source) Acute otitis externa of left ear; Translations: [Unspecified acute noninfective otitis externa, left ear] 03-25-2024 Episodic Other ear and sense organ disorders (1 source) Otorrhea of left ear; Translations: [Otorrhea, left ear] 03-25-2024 Episodic Other ear and sense organ disorders (3 sources) Tinnitus of vascular origin; Translations: [Pulsatile tinnitus, unspecified ear] 03-26-2024 Episodic Other ear and sense organ disorders (1 source) Pulsatile tinnitus, unspecified ear; Translations: [Pulsatile tinnitus] Onset: 05-15-2024 Episodic Other eye disorders (2 sources) 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; Translations: [Papilledema associated with increased intracranial pressure] 05-04-2023 Chronic Other eye disorders (1 source) Iris transillumination; 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), left eye] 03-10-2024 Episodic Other eye disorders (3 sources) 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; Translations: [Papilledema of both eyes] Onset: 05-23-2019 05-23-2019 Other injuries and conditions due to external causes (1 source) Injury of left wrist; Translations: [Unspecified injury of left wrist, hand and finger(s), initial encounter] 04-27-2024 Episodic Other nervous system disorders (20 sources) Benign intracranial hypertension; Translations: [Benign intracranial hypertension] Onset: 11-24-2020 05-24-2019 Chronic Other nervous system disorders (2 sources) Benign intracranial hypertension; Translations: [Intracranial hypertension] Onset: 11-24-2020 Chronic Other nervous system disorders (1 source) Raised intracranial pressure; Translations: [Benign intracranial hypertension] 06-21-2024 Chronic Other non-traumatic joint disorders (3 sources) Acute ankle pain; Translations: [Pain in left ankle and joints of left foot] 12-13-2023 Episodic Other nutritional; endocrine; and metabolic disorders (3 sources) Obesity; Translations: [Class 2 obesity in adult] Onset: 05-23-2019 05-23-2019 Chronic Other nutritional; endocrine; and metabolic disorders (2 sources) Childhood obesity; Translations: [Other obesity due to excess calories] Onset: 11-24-2020 11-24-2020 Chronic Other nutritional; endocrine; and metabolic disorders (20 sources) Obesity caused by energy imbalance; Translations: [Other obesity due to excess calories] Onset: 11-24-2020 11-24-2020 Chronic Other nutritional; endocrine; and metabolic disorders (1 source) H/O: metabolic disorder; Translations: [Personal history of other endocrine, nutritional and metabolic disease] 03-26-2024 Episodic Other nutritional; endocrine; and metabolic disorders (1 source) Personal history of other endocrine, nutritional and metabolic disease; Translations: [History of metabolic acidosis] Onset: 03-26-2024 Episodic Other upper respiratory disease (1 source) Nasal discharge; Translations: [Other specified disorders of nose and nasal sinuses] 03-26-2024 Episodic Ovarian cyst (10 sources) Cyst of ovary; [...] source) Severe pain; Translations: [Pain, unspecified] Episodic Spontaneous (1 source) Incomplete miscarriage with complication; Translations: [Incomplete spontaneous with other complications] Episodic Sprains and strains (1 source) Sprain of left ankle; Translations: [Sprain of unspecified ligament of left ankle, initial encounter] 01-08-2024 Episodic Syncope (1 source) Near syncope; Translations: [Syncope and collapse] Episodic Unclassified (1 source) Unknown / UNK(Unknown) Onset: 03-22-2017 Unclassified (6 sources) 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 Past or Other Problems Problem Classification Problem Date Documented Date Episodic/Chronic Abdominal pain (20 sources) Unspecified abdominal pain; Translations: [Right lower quadrant pain] Onset: 08-16-2005 08-16-2005 Episodic Cardiac dysrhythmias (20 sources) Palpitations; Translations: [Palpitations] Onset: 08-22-2013 08-22-2013 Episodic E Codes: Fall (3 sources) Fall; Translations: [Unspecified fall, initial encounter] Onset: 01-08-2024 12-13-2023 Episodic Headache; including migraine (5 sources) Headache; Translations: [Acute nonintractable headache, unspecified headache type] Onset: 05-22-2019 05-22-2019 Episodic Miscellaneous mental health disorders (20 sources) depression; Translations: [ depression] Onset: 07-18-2013 08-22-2013 Episodic Other connective tissue disease (1 source) Pain in left foot; Translations: [Foot pain, left] Onset: 01-08-2024 Episodic Other ear and sense organ disorders (3 sources) Tinnitus; Translations: [Tinnitus] Onset: 05-25-2019 05-25-2019 Episodic Other lower respiratory disease (20 sources) Nodule of lung; Translations: [Solitary pulmonary nodule] Onset: 07-18-2013 08-22-2013 Episodic Other non-traumatic joint disorders (1 source) Pain in left ankle and joints of left foot; Translations: [Acute left ankle pain] Onset: 01-08-2024 Episodic Residual codes; unclassified (20 sources) Pain; Translations: [Pain, unspecified] Onset: 07-18-2013 07-18-2013 Episodic Unclassified (1 source) UPPER BACK PAIN Onset: 03-22-2017 Results Test Name Value Interpretation Reference Range Facility .Auto Diffon 06-12-2024 Basophil, Absolute 0.1 10 3/mcL Normal 0.0-0.2 [facility] Comment on above: Performed By: #### M DW, CBC, CMP, ADIFF, LIP, GFR, ANEU #### [address] [address] Basophils/100 WBC (Bld) 1.1 % Normal 0.0-2.5 [facility] Comment on above: Performed By: #### M DW, CBC, CMP, ADIFF, LIP, GFR, ANEU #### [address] [address] Eosinophil, Absolute 0.1 10 3/mcL Normal 0.0-0.7 [facility] Comment on above: Performed By: #### M DW, CBC, CMP, ADIFF, LIP, GFR, ANEU #### [address] [address] Eosinophils/100 WBC (Bld) 0.6 % Normal 0.0-7.0 [facility] Comment on above: Performed By: #### M DW, CBC, CMP, ADIFF, LIP, GFR, ANEU #### [address] [address] Lymphocyte, Absolute 3.3 10 3/mcL Normal 0.9-4.3 [facility] Comment on above: Performed By: #### M DW, CBC, CMP, ADIFF, LIP, GFR, ANEU #### [address] [address] Lymphocytes/100 WBC (Bld) 33.3 % Normal 20.0-40.0 [facility] Comment on above: Performed By: #### M DW, CBC, CMP, ADIFF, LIP, GFR, ANEU #### [address] [address] Monocyte, Absolute 0.8 10 3/mcL Normal 0.1-1.4 [facility] Comment on above: Performed By: #### M DW, CBC, CMP, ADIFF, LIP, GFR, ANEU #### [address] [address] Monocytes/100 WBC (Bld) 7.8 % Normal 2.0-13.0 [facility] Comment on above: Performed By: #### M DW, CBC, CMP, ADIFF, LIP, GFR, ANEU #### [address] [address] Neutrophils/100 WBC (Bld) 57.2 % Normal 50.0-75.0 [facility] Comment on above: Performed By: #### M DW, CBC, CMP, ADIFF, LIP, GFR, ANEU #### [address] [address] .GFRon 06-12-2024 GFR 81 ml/min/1.73sqm Normal [facility] Comment on above: Result Comment: GFR Population mean for , [...] 15 mL/min/1.73 square meters Performed By: #### M DW, CBC, CMP, ADIFF, LIP, GFR, ANEU #### [place] [id number] [place], [place] [address] GFR Non- 67 ml/min/1.73sqm Normal [facility] Comment on above: Result Comment: GFR Population mean for , [...] 15 mL/min/1.73 square meters Performed By: #### M DW, CBC, CMP, ADIFF, LIP, GFR, ANEU #### [place] [address] .MDWon 06-12-2024 Monocyte Distribution Width 17.82 Normal 0.00-20.00 [facility] Comment on above: Result Comment: For ED adult patients suspected of sepsis, MDW<=20.0 does not rule out sepsis or risk of sepsis Performed By: #### M DW, CBC, CMP, ADIFF, LIP, GFR, ANEU #### [place] [address] .NEUABSon 06-12-2024 Neutrophil, Absolute 5.7 10 3/mcL Normal 2.3-8.1 [facility] Comment on above: Performed By: #### M DW, CBC, CMP, ADIFF, LIP, GFR, ANEU #### [place] [address] .Urinalysis Microscopic (AO) on 06-12-2024 UA Bacteria 1+ /hpf Abnormal [facility] Comment on above: Performed By: #### M DW, CBC, CMP, ADIFF, LIP, GFR, ANEU #### [place] [address] UA RBC 5-10 Abnormal None Seen [facility] Comment on above: Performed By: #### M DW, CBC, CMP, ADIFF, LIP, GFR, ANEU #### [place] [address] UA Squam Epithelial 0-5 Abnormal None Seen [facility] Comment on above: Performed By: #### M DW, CBC, CMP, ADIFF, LIP, GFR, ANEU #### [place] [address] UA WBC 0-5 Abnormal None Seen [facility] Comment on above: Performed By: #### M DW, CBC, CMP, ADIFF, LIP, GFR, ANEU #### [place] [address] BRIEF OP NOTon 06-12-2024 BRIEF OP NOT HNO ID: [id number] Author: CLEMENTE COATES MD Service: ? Author Type: Fellow Type: Brief Op Note Filed: 06/12/2024 12:26 Note Text: BRIEF OPERATIVE / PROCEDURE NOTE LOG ID: [id number] SURGERY/PROCEDURE DATE: 06/12/2024 INCISION/PROCEDURE START TIME: 12:00 PM INCISION CLOSE/PROCEDURE END TIME: 12:17 PM SURGEON(S)/PROCEDURALIST(S) AND RESEARCH MANAGER(S): Surgeons and Role: * Clemente Coates MD - Primary * Bebo Chang MD No Additional Staff SURGERY/PROCEDURE(S): Diagnostic lumbar puncture ANESTHESIA: Local FINDINGS: Successful diagnostic lumbar puncture ESTIMATED BLOOD LOSS: 0 ml SPECIMENS: clear CSF, sent to lab per orders COMPLICATIONS: None CLOSURE TECHNIQUE: Primary PRE-OP/PRE-PROCEDURE DIAGNOSIS: IIHT POST-OP/POST-PROCEDURE DIAGNOSIS: Same as Preop SIGNATURE: Clemente Coates MD PATIENT NAME: Sondra Blanco DATE: June 12, 2024 TIME: 12:25 PM Normal [facility] [place] Bacteria CSF Culton 06-12-20 24 Bacteria identified Cx Nom (CSF) CULTURE, CSF: No growth 5 days GRAM STAIN: No organisms seen No Polymorphonuclear Leukocytes No Mononuclear cells Gram stain performed on cytospun specimen. Normal [facility] [place] Comment on above: Performed By: #### 6 -4 ####[facility] LABCLIA [id number] [address] [place] CBCon 06-12-2024 Erythrocyte distribution width (RBC) [Ratio] 14.7 % Normal 11.5-15.5 [facility] Comment on above: Performed By: #### M DW, CBC, CMP, ADIFF, LIP, GFR, ANEU #### [address] [address] Hematocrit (Bld) [Volume fraction] 34.4 % Normal 34.0-46.0 [facility] Comment on above: Performed By: #### M DW, CBC, CMP, ADIFF, LIP, GFR, ANEU #### [address] [address] Hgb 11.4 G/dL Low 12.0-16.0 [facility] Comment on above: Performed By: #### M DW, CBC, CMP, ADIFF, LIP, GFR, ANEU #### [address] [address] MCH (RBC) [Entitic mass] 24.8 pg Low 27.0-33.0 [facility] Comment on above: Performed By: #### M DW, CBC, CMP, ADIFF, LIP, GFR, ANEU #### [address] [address] MCHC 33.0 G/dL Normal 32.0-36.0 [facility] Comment on above: Performed By: #### M DW, CBC, CMP, ADIFF, LIP, GFR, ANEU #### [address] [address] MCV (RBC) [Entitic vol] 75.2 fL Low 80.0-99.0 [facility] Comment on above: Performed By: #### M DW, CBC, CMP, ADIFF, LIP, GFR, ANEU #### [address] [address] Platelet 315 10 3/mcL Normal 150-450 [facility] Comment on above: Performed By: #### M DW, CBC, CMP, ADIFF, LIP, GFR, ANEU #### [address] [address] Platelet mean volume (Bld) [Entitic vol] 7.3 fL Normal 6.6-10.5 [facility] Comment on above: Performed By: #### M DW, CBC, CMP, ADIFF, LIP, GFR, ANEU #### [address] [address] RBC 4.58 10 6/mcL Normal 4.10-5.30 [facility] Comment on above: Performed By: #### M DW, CBC, CMP, ADIFF, LIP, GFR, ANEU #### [address] [address] WBC 10.0 10 3/mcL Normal 4.5-10.8 [facility] Comment on above: Performed By: #### M DW, CBC, CMP, ADIFF, LIP, GFR, ANEU #### [address] [address] CMPon 06-12-2024 Albumin Level 3.1 G/dL Low 3.5-5.0 [facility] Comment on above: Performed By: #### M DW, CBC, CMP, ADIFF, LIP, GFR, ANEU #### [address] [address] Albumin/Globulin [Mass ratio] 0.9 {ratio} Low 1.1-2.5 [facility] Comment on above: Performed By: #### M DW, CBC, CMP, ADIFF, LIP, GFR, ANEU #### [address] [address] ALP [Catalytic activity/Vol] 114 U/L Normal 40-135 [facility] Comment on above: Performed By: #### M DW, CBC, CMP, ADIFF, LIP, GFR, ANEU #### [address] [address] ALT [Catalytic activity/Vol] 25 U/L Normal 14-59 [facility] Comment on above: Performed By: #### M DW, CBC, CMP, ADIFF, LIP, GFR, ANEU #### [address] [address] AST [Catalytic activity/Vol] 16 U/L Normal 10-40 [facility] Comment on above: Performed By: #### M DW, CBC, CMP, ADIFF, LIP, GFR, ANEU #### [address] [address] Bili Total 0.2 mg/dL Normal 0.2-1.0 [facility] Comment on above: Result Comment: Use of this assay is not recommended for patients undergoing treatment with eltrombopag due to the potential for falsely elevated results. Performed By: #### M DW, CBC, CMP, ADIFF, LIP, GFR, ANEU #### [address] [address] BUN/Creatinine Ratio 14 ratio Normal 7-27 [facility] Comment on above: Performed By: #### M DW, CBC, CMP, ADIFF, LIP, GFR, ANEU #### [address] [address] Calcium [Mass/Vol] 8.3 mg/dL Low 8.4-10.2 [facility] Comment on above: Performed By: #### M DW, CBC, CMP, ADIFF, LIP, GFR, ANEU #### [place] [id number] Chloride [Moles/Vol] 106 mmol/L Normal 98-107 [facility] Comment on above: Performed By: #### M DW, CBC, CMP, ADIFF, LIP, GFR, ANEU #### [place] [address] CO2 [Moles/Vol] 28 mmol/L Normal 22-29 [facility] Comment on above: Performed By: #### M DW, CBC, CMP, ADIFF, LIP, GFR, ANEU #### [place] [address] Creatinine [Mass/Vol] 0.95 mg/dL Normal 0.55-1.02 [facility] Comment on above: Result Comment: Test ing performed on Siemens Dimension EXL analyzer using a modified kinetic Gino technique. Performed By: #### M DW, CBC, CMP, ADIFF, LIP, GFR, ANEU #### [address] [address] Electrolyte Balance 9.0 mEq/L Normal 4.0-15.0 [facility] Comment on above: Performed By: #### M DW, CBC, CMP, ADIFF, LIP, GFR, ANEU #### [place] [address] Globulin 3.6 G/dL Normal [facility] Comment on above: Performed By: #### M DW, CBC, CMP, ADIFF, LIP, GFR, ANEU #### [address] [address] Glucose [Mass/Vol] 115 mg/dL High 70-105 [facility] Comment on above: Performed By: #### M DW, CBC, CMP, ADIFF, LIP, GFR, ANEU #### [address] [address] Potassium [Moles/Vol] 3.5 mmol/L Normal 3.5-5.1 [facility] Comment on above: Performed By: #### M DW, CBC, CMP, ADIFF, LIP, GFR, ANEU #### [address] [address] Sodium [Moles/Vol] 143 mmol/L Normal 136-145 [facility] Comment on above: Performed By: #### M DW, CBC, CMP, ADIFF, LIP, GFR, ANEU #### [address] [address] Total Protein 6.7 G/dL Normal 6.4-8.2 [facility] Comment on above: Performed By: #### M DW, CBC, CMP, ADIFF, LIP, GFR, ANEU #### [address] [address] Urea nitrogen [Mass/Vol] 13 mg/dL Normal 7-18 [facility] Comment on above: Performed By: #### M DW, CBC, CMP, ADIFF, LIP, GFR, ANEU #### [address] [address] CSF MANUAL DIFFon 06-12-2024 DIF TTL, CSF 51 cells counted Normal [facility] Comment on above: Order Comment: Speci men Type: CEREBROSPINAL FLUID SPECIMENOrdering Facility: [facility] Address: [address] [place] [address] Result Comment: Less than 100 cells were counted due to low cellularity of the specimen; therefore, the total differential percentage may be subject to rounding error. Performed By: #### 3 4563-7, [id number] ####[facility] LABCLIA [id number] [id number] [address] [place] LYMPH%, CSF 73 % Normal 50-90 [facility] [place] Comment on above: Order Comment: Speci men Type: CEREBROSPINAL FLUID SPECIMENOrdering Facility: [facility] Address: [address] [place] [address] Performed By: #### 3 4563-7, [id number] ####[facility] LABCLIA [id number] [place] [address] [place] MONO%, CSF 16 % Normal 10-50 [facility] [place] Comment on above: Order Comment: Speci men Type: CEREBROSPINAL FLUID SPECIMENOrdering Facility: [facility] Address: [address] [place] [address] Performed By: #### 3 4563-7, [id number] ####[facility] LABCLIA [id number] [place] [address] [place] NEUT%, CSF 2 % Normal 0-3 [facility] [place] Comment on above: Order Comment: Speci men Type: CEREBROSPINAL FLUID SPECIMENOrdering Facility: [facility] Address: [address] [place] [address] Performed By: #### 3 4563-7, [id number] ####[facility] LABCLIA [id number] [place] [address] [place] REAC LYMPH %, CSF 10 % Normal [facility] Comment on above: Order Comment: Speci men Type: CEREBROSPINAL FLUID SPECIMENOrdering Facility: [facility] Address: [address] [place] [address] Performed By: #### 3 4563-7, [id number] ####[facility] LABCLIA [id number] [place] [address] [place] ABD/PELVIS W/ IV CONTRAST ONLYon 06-12-2024 CT ABD/PELVIS W/ IV CONTRAST ONLY ORIGINAL EXAMINATION: CT OF THE ABDOMEN AND PELVIS WITH MKAUYOPA60/3/2024 10:18 pm TECHNIQUE: CT of the abdomen and pelvis was performed with the administration of intravenous contrast. Multiplanar reformatted images are provided for review. Automated exposure control, iterative reconstruction, and/or weight based adjustment of the mA/kV was utilized to reduce the radiation dose to as low as reasonably achievable. COMPARISON: CT abdomen pelvis 02/09/2024 HISTORY: ORDERING SYSTEM PROVIDED HISTORY: Reason for Exam: pt states she had a lumbar puncture today and now her stomach hurts and she feels bloated pain FINDINGS: No acute osseous abnormalities. No significant degenerative changes. Bilateral dependent atelectasis. The heart is normal in size. No pleural or pericardial effusions. Cholecystectomy clips. The liver, spleen, pancreas, and adrenal glands are unremarkable. The kidneys enhance symmetrically. There is excreted contrast in the renal calices bilaterally. No visualized hydronephrosis or urolithiasis. The bladder is unremarkable. Small left ovarian follicle/cyst. Pelvic phleboliths. The stomach is unremarkable. Prominent loops of small bowel in the left abdomen, which are not pathologically dilated. The colon is unremarkable. The appendix is within normal limits. Nonaneurysmal aorta. No pathologically enlarged lymph nodes are identified. No free intraperitoneal air or fluid. Small fat containing umbilical hernia. Changes status post ventral hernia repair. IMPRESSION: Prominent loops of small bowel in the left abdomen, which are not pathologically dilated with no visualized transition point. This is favored to be physiologic rather than a developing ileus. No evidence of obstruction. I have personally reviewed the images and agree with the resident's findings and interpretation. Interpreted by: Garo Zamora Preliminary Report By: Kieran Parker Electronically signed By Garo Zamora Dictated Date: 06/12/2024 11:01:41 PM Prelim Date: 06/12/2024 11:08:56 PM Sign Date: 06/12/2024 11:28:39 PM Ordering Provider: OMEGA HARRIS [facility] Cell count panel (CSF)Ordere d By: Iris Bah on 06-12-2024 Clarity (CSF) Clear Clear [facility] Clarity (Unsp spec) Not Indicated Clear [facility] Color (CSF) Colorless Colorless [facility] Color (Spun CSF) Not Indicated Colorless [facility] CSF Tube Number Sterile Container [facility] Interpretation and review of laboratory results Abnormal [facility] RBC Manual cnt (CSF) [#/Vol] 12 High [facility] WBC Manual cnt (CSF) [#/Vol] 0 [facility] Cell count panel (CSF)on Clarity (CSF) Clear Normal Clear [facility] Comment on above: Order Comment: Speci men Type: CEREBROSPINAL FLUID SPECIMENOrdering Facility: [facility] Address: [address] [place] [address] Performed By: #### 3 4563-7, [id number] ####[facility] LABCLIA [id number] [place] [address] [place] Clarity (Unsp spec) Not Indicated Normal Clear [facility] Comment on above: Order Comment: Speci men Type: CEREBROSPINAL FLUID SPECIMENOrdering Facility: [facility] Address: [address] [place] [address] Performed By: #### 3 4563-7, [id number] ####[facility] LABCLIA [id number] [place] [address] [place] Color (CSF) Colorless Normal Colorless [facility] Comment on above: Order Comment: Speci men Type: CEREBROSPINAL FLUID SPECIMENOrdering Facility: [facility] Address: [address] [place] [address] Performed By: #### 3 4563-7, [id number] ####[facility] LABCLIA [id number] [place] [address] [place] Color (Spun CSF) Not Indicated Normal Colorless [facility] Comment on above: Order Comment: Speci men Type: CEREBROSPINAL FLUID SPECIMENOrdering Facility: [facility] Address: [address] [place] [address] Performed By: #### 3 4563-7, [id number] ####[facility] LABCLIA [id number] [place] [address] [place] CSF TUBE NUMBER Sterile Container Normal [facility] Comment on above: Order Comment: Speci men Type: CEREBROSPINAL FLUID SPECIMENOrdering Facility: [facility] Address: [address] [place] [address] Performed By: #### 3 4563-7, [id number] ####[facility] LABCLIA [id number] [place] [address] [place] RBC Manual cnt (CSF) [#/Vol] 12 cells/uL High 0-5 [facility] Comment on above: Order Comment: Speci men Type: CEREBROSPINAL FLUID SPECIMENOrdering Facility: [facility] Address: [address] [place] [address] Performed By: #### 3 4563-7, [id number] ####[facility] LABCLIA [id number] [address] STATES OF [facility] WBC Manual cnt (CSF) [#/Vol] 0 cells/uL Normal 0-5 [facility] Comment on above: Order Comment: Speci men Type: CEREBROSPINAL FLUID SPECIMENOrdering Facility: [facility] Address: [address] [place] [address] Performed By: #### 3 4563-7, [id number] ####[facility] LABCLIA [id number] [address] [place] GLUCOSE CSFon 06-12-2024 Glucose (CSF) [Mass/Vol] 63 mg/dL 40 - 70 mg/dL [facility] Comment on above: Lumbar CSF glucose v alues of healthy patients are approximately 60% of the plasma values and must always be compared with a concurrently measured plasma value for adequate clinical interpretation. References: 1. Glucose HK (GLUC3) [package insert V 12.0 [place]]. [facility], [place], [place]. January 2016. 2. Tyler HChrista, Rodney, H. (2015). Chapter 7: Glucose and Lactate. Hannah Be.(eds.), Cerebrospinal Fluid in Clinical Neurology. [place]: [employer]. Glucose CSF-mCncon Glucose (CSF) [Mass/Vol] 63 mg/dL Normal 40-70 [facility] Comment on above: Order Comment: Speci men Type: CEREBROSPINAL FLUID SPECIMENOrdering Facility: [facility] Address: [address] [place] [address] Result Comment: Lumb ar CSF glucose values of healthy patients are approximately 60% of the plasma values and must always be compared with a concurrently measured plasma value for adequate clinical interpretation. References: 1. Glucose HK (GLUC3) [package insert V 12.0 [place]]. [facility], [place], [place]. January 2016. 2. Bing Scott, Bing Stevens (2015). Chapter 7: Glucose and Lactate. F. Cheryl riggs al.(eds.), Cerebrospinal Fluid in Clinical Neurology. [place]: [employer]. Performed By: #### 2 342-4, 2880-3 ####[facility] LABCLIA [id number] [address] [place] IR LP FOR DRAINAGE (PRESSURE )on 06-12-2024 IR LP FOR DRAINAGE (PRESSURE) * * *Final Report* * * DATE OF EXAM: Jun 12 2024 12:17PM NDA 0853 - IR LP FOR DRAINAGE (PRESSURE) / PROCEDURE REASON: IIH (idiopathic intracranial hypertension) * * * * Physician Interpretation * * * * PROCEDURE: Diagnostic Lumbar Puncture Under Fluoroscopic Guidance HISTORY: The patient is a 38 years year old Female who presented with intracranial hypertension. Consent: Informed consent was obtained for this procedure. Details of informed consent can be found in Epic under the consent tab. General: A) Medication Reconciliation: The patient's medications and allergies were reviewed in the electronic medical record and reconciled to the proposed procedure/treatment. B) Pre-Procedure Medications: Medication #1: None C) Positioning: The patient was placed Prone on the Fluoroscopy table. D) The lumbar dorsal soft tissues. were then sterile prepped and draped. E) Time Out: A time out was performed immediately prior to procedure start with the nursing, anesthesia and interventional team, correctly identifying the name, medical record number, procedure, anatomy (including marking of site and side), patient position, procedure consent form, relevant diagnostic and radiology test results, antibiotic administration, safety precautions, and procedure-specific equipment needs. Timeout Affirmation (if attending not present): Attending present. Timeout Time and Procedure Start Time: 1200 F) Anesthesia Type: administration of local anesthesia. Local Anesthesia: 4 cc 1% Lidocaine G) Anesthesia (sedation) was administered for a total of 0 minutes (not applicable). H) Patient Monitoring: Not applicable. TECHNIQUE/RESULT: A) Access Site: 9 cm 20 gauge spinal needle from a right paramedian approach at the L2-L3 level. Laminectomy defect present: no. Laminectomy defect traversed: Not applicable B) Counting reference: Lumbosacral junction. For the purposes of this report, L4-5 is considered the level of the iliac crest. Transitional anatomy with nonrib-bearing T12 vertebral body. C) Procedure Details: Using sterile procedure, local anesthesia was introduced to the skin and subcutaneous tissues as outlined above. Diagnostic LP Details: Under fluoroscopic guidance, the needle was carefully advanced into the lumbar subarachnoid space resulting in free flow of CSF. Diagnostic Volume: 16 of CSF was withdrawn and forwarded to the lab for analysis. Opening pressure was recorded at 22 cm H2O. Closing pressure was recorded at 17 cm H2O (patient could no longer tolerate the procedure) CSF Color: Clear D) Estimated Blood Loss: 0 mls E) Type of Removed Specimens: CSF F) Number of Specimens: 3 Fluoroscopic Radiation Summary: Plane A, Air Kerma: 25.0 mGy Fluoro time: 0:48 min:sec Post-Procedure: Conclusion: The patient was transferred to the Radiology Recovery Room in stable condition and observed for approximately 60 minutes. Immediate Complications: None ([id number]). Procedure End Time and Sign Out Time: 1217 IMPRESSION: TECHNICALLY SUCCESSFUL DIAGNOSTIC AND THERAPEUTIC LUMBAR PUNCTURE. Attending Physician: Dr. Selene Chang. Rotary Swaging Machine Operator: Dr. Jose Manuel Coates The procedure was performed by the: the web production assistant, and the attending radiologist was not present but immediately available to furnish services during the entire procedure. Relief Captain: PSCB Transcribe Date/Time: Jun 12 2024 1:06P Dictated by : CLEMENTE COATES MD This examination was interpreted and the report reviewed and electronically signed by: BEBO CHANG MD on Jun 12 2024 1:22PM EST Normal [facility] LABORATORYOrdered By: SYSTEM SYSTEM on 06-12-2024 Albumin BCP dye [Mass/Vol] 3.1 G/dL Low 3.5 - 5.0 G/dL AO ADM SS Albumin/Globulin [Mass ratio] 0.9 {ratio} Low 1.1 - 2.5 ratio AO ADM SS ALP [Catalytic activity/Vol] 114 U/L Normal 40 - 135 U/L AO ADM SS ALT With P-5'-P [Catalytic activity/Vol] 25 U/L Normal 14 - 59 U/L AO ADM SS AST With P-5'-P [Catalytic activity/Vol] 16 U/L Normal 10 - 40 U/L AO ADM SS Basophils (Bld) [#/Vol] 0.1 103/mcL Normal 0.0 - 0.2 10^3/mcL AO Workflow SS Basophils/100 WBC (Bld) 1.1 % Normal 0.0 - 2.5 % AO Workflow SS Bilirubin [Mass/Vol] 0.2 mg/dL Normal 0.2 - 1 .0 mg/dL AO ADM SS Comment on above: Interpretive Data: U se of this assay is not recommended for patients undergoing treatment with eltrombopag due to the potential for falsely elevated results. Calcium [Mass/Vol] 8.3 mg/dL Low 8.4 - 10. 2 mg/dL AO ADM SS Chloride [Moles/Vol] 106 mmol/L Normal 98 - 10 7 mmol/L AO ADM SS CO2 [Moles/Vol] 28 mmol/L Normal 22 - 29 mmol/L AO ADM SS Creatinine [Mass/Vol] 0.95 mg/dL Normal 0.55 - 1.02 mg/dL AO ADM SS Comment on above: Interpretive Data: T esting performed on Siemens Dimension EXL analyzer using a modified kinetic Gino technique. Electrolyte Balance 9.0 mEq/L Normal 4.0 - 15 .0 mEq/L AO ADM SS Eosinophil, Absolute 0.1 103/mcL Normal 0.0 - 0 .7 10^3/mcL AO Workflow SS Eosinophils/100 WBC (Bld) 0.6 % Normal 0.0 - 7.0 % AO Workflow SS Erythrocyte distribution width (RBC) [Ratio] 14.7 % Normal 11.5 - 15.5 % AO Workflow SS GFR/1.73 sq M.predicted among blacks MDRD (S/P/Bld) [Vol rate/Area] 81 ml/min/1.73sqm Invalid Interpretation Code AO Chemistry S Comment on above: Interpretive Data: GFR Population mean for , Non- Americans Ages 20-29 = 116 mL/min/1.73 sq.m. Ages 30-39 = 107 mL/min/1.73 sq.m. Ages 40-49 = 99 mL/min/1.73 sq.m. Ages 50-59 = 93 mL/min/1.73 sq.m. Ages 60-69 = 85 mL/min/1.73 sq.m. Ages 70+ = 75 mL/min/1.73 sq.m. Chronic Kidney Disease: Less than 60 mL/min/1.73 square meters End Stage Renal Disease: Less than 15 mL/min/1.73 square meters GFR/1.73 sq M.predicted among non-blacks MDRD (S/P/Bld) [Vol rate/Area] 67 ml/min/1.73sqm Invalid Interpretation Code AO Chemistry S Comment on above: Interpretive Data: GFR Population mean for , Non- Americans Ages 20-29 = 116 mL/min/1.73 sq.m. Ages 30-39 = 107 mL/min/1.73 sq.m. Ages 40-49 = 99 mL/min/1.73 sq.m. Ages 50-59 = 93 mL/min/1.73 sq.m. Ages 60-69 = 85 mL/min/1.73 sq.m. Ages 70+ = 75 mL/min/1.73 sq.m. Chronic Kidney Disease: Less than 60 mL/min/1.73 square meters End Stage Renal Disease: Less than 15 mL/min/1.73 square meters Globulin 3.6 G/dL Invalid Interpretation Code AO ADM SS Glucose [Mass/Vol] 115 mg/dL High 70 - 105 mg/dL AO ADM SS Hematocrit (Bld) [Volume fraction] 34.4 % Normal 34.0 - 46.0 % AO Workflow SS Hemoglobin (Bld) [Mass/Vol] 11.4 G/dL Low 12.0 - 16.0 G/dL AO Workflow SS Lipase [Catalytic activity/Vol] 35 U/L Normal 16 - 77 U/L AO ADM SS Lymphocytes (Bld) [#/Vol] 3.3 103/mcL Normal 0.9 - 4.3 10^3/mcL AO Workflow SS Lymphocytes/100 WBC (Bld) 33.3 % Normal 20.0 - 40.0 % AO Workflow SS MCH (RBC) [Entitic mass] 24.8 pg Low 27.0 - 33.0 pg AO Workflow SS MCHC 33.0 G/dL Normal 32.0 - 36.0 G/dL AO Workflow SS MCV (RBC) [Entitic vol] 75.2 fL Low 80.0 - 99.0 fL AO Workflow SS Monocyte distribution width Auto (Bld) [Entitic vol] 17.82 1 Normal 0.00 - 20.00 AO Workflow SS Comment on above: Result Comment: For ED adult patients suspected of sepsis, MDW<=20.0 does not rule out sepsis or risk of sepsis Monocytes (Bld) [#/Vol] 0.8 103/mcL Normal 0.1 - 1.4 10^3/mcL AO Workflow SS Monocytes/100 WBC (Bld) 7.8 % Normal 2.0 - 13.0 % AO Workflow SS Neutrophils (Bld) [#/Vol] 5.7 103/mcL Normal 2.3 - 8.1 10^3/mcL AO Workflow SS Neutrophils/100 WBC (Bld) 57.2 % Normal 50.0 - 75.0 % AO Workflow SS Platelet mean volume (Bld) [Entitic vol] 7.3 fL Normal 6.6 - 10.5 fL AO Workflow SS Platelets (Bld) [#/Vol] 315 103/mcL Normal 150 - 450 10^3/mcL AO Workflow SS Potassium [Moles/Vol] 3.5 mmol/L Normal 3.5 - 5.1 mmol/L AO ADM SS Protein [Mass/Vol] 6.7 G/dL Normal 6.4 - 8.2 G/dL AO ADM SS RBC (Bld) [#/Vol] 4.58 106/mcL Normal 4.10 - 5.3 0 10^6/mcL AO Workflow SS Sodium [Moles/Vol] 143 mmol/L Normal 136 - 145 mmol/L AO ADM SS Urea nitrogen [Mass/Vol] 13 mg/dL Normal 7 - 18 mg/dL AO ADM SS Urea nitrogen/Creatinine [Mass ratio] 14 ratio Normal 7 - 27 ratio AO ADM SS WBC (Bld) [#/Vol] 10.0 103/mcL Normal 4.5 - 10.8 10^3/mcL AO Workflow SS LABORATORYOrdered By: Rimma Blue on 06-12-2024 Appearance (U) Slightly Cloudy *ABN* (06/12/24 9:20 PM) Invalid Interpretation Code Clear AO Auto Urine SS Bacteria LM.HPF (Urine sed) [#/Area] 1 /[HPF] Invalid Interpretation Code AO Auto Urine SS Bilirubin Ql (U) Negative (06/12/24 9:20 PM) Normal Negative AO Auto Urine SS Color (U) Yellow (06/12/24 9:20 PM) Normal AO Auto Urine SS Glucose Test strip (U) [Mass/Vol] Negative Normal Negative AO Auto Urine SS HCG ( test) Ql Negative (06/12/24 9:20 PM) Normal AO Manual Urine SS Hemoglobin Auto test strip (U) [Mass/Vol] Moderate *ABN* (06/12/24 9:20 PM) Invalid Interpretation Code Negative AO Auto Urine SS Ketones Ql (U) Negative Normal Negative AO Auto Urine SS test (u) int Not detected Invalid Interpretation Code AO Manual Urine SS UA Leuk Est Negative (06/12/24 9:20 PM) Normal Negative AO Auto Urine SS UA Nitrite Negative (06/12/24 9:20 PM) Normal Negative AO Auto Urine SS UA pH 6.5 (06/12/24 9:20 PM) Normal 5.0 - 8.0 AO Auto Urine SS UA Protein Negative Normal Negative AO Auto Urine SS UA RBC 5-10 /HPF Invalid Interpretation Code None Seen AO Auto Urine SS UA Spec Grav >=1.030 *ABN* (06/12/24 9:20 PM) Invalid Interpretation Code 1.015-1.025 AO Auto Urine SS UA Specimen Type Void (06/12/24 9:20 PM) Normal AO Auto Urine SS UA Squam Epithelial 0-5 /HPF Invalid Interpretation Code None Seen AO Auto Urine SS UA Urobilinogen 0.2 E.U./dL Normal 0.2-1.0 AO Auto Urine SS WBC LM.HPF (Urine sed) [#/Area] 0-5 /HPF Invalid Interpretation Code None Seen AO Auto Urine SS LIPon 06-12-2024 Lipase Level 35 U/L Normal 16-77 [facility] Comment on above: Performed By: #### M DW, CBC, CMP, ADIFF, LIP, GFR, ANEU #### [place] [id number] [place], [place] [address] NURSING PROGon 06-12-2024 NURSING PROG HNO ID: [id number] Author: LIBBY JOHNSON, RN Service: Nursing Author Type: Registered Nurse Type: Nursing Progress Note Filed: 06/13/2024 08:56 Note Text: Attempted post procedure phone call. Left VM for patient to return call to [phone] with any questions/concerns. Libby Johnson RN Normal [facility] No Panel Informationon 06-12 Interpretation and review of laboratory results Normal [facility] PREGUon 06-12-2024 HCG ( test) Ql (U) Negative Normal [facility] Comment on above: Performed By: #### P REGU, UAMICAO, UA #### [facility] [address] [place], [place] [address] test (u) int Not detected Invalid Interpretation Code [facility] Comment on above: Performed By: #### P REGU, UAMICAO, UA #### [facility] [address] [place], [place] [address] PROTEIN CSFon 06-12-2024 Protein (CSF) [Mass/Vol] 23 mg/dL 15 - 45 mg/dL [facility] PT EDon 06-12-2024 PT ED HNO ID: [id number] Author: BREN MATHEW RN Service: Nursing Author Type: Registered Nurse Type: Patient Education Filed: 06/12/2024 11:57 Note Text: AMBULATORY PATIENT EDUCATION TOPIC: Survival Skills: HEALTH PROMOTION: Complication prevention Follow up management READINESS TO LEARN COGNITIVE ABILITY: Alert and oriented MOTIVATION TO LEARN: Interested FAMILY SUPPORT: High - Very involved in pt care INSTRUCTION PROVIDED TO: Patient PATIENT LEARNS BEST BY: Individual Instruction FACTORS AFFECTING LEARNING: None PHYSICAL LIMITATIONS AFFECTING LEARNING: None LEARNING RESPONSE DIAGNOSIS: IIH METHOD OF INSTRUCTION: Individual instruction PATIENT / FAMILY RESPONSE: Verbalizes understanding of: POST-PROCEDURE INSTRUCTIONS-Correct actions to take to reduce post procedure complications FOLLOW-UP PLAN: Complete - No need for follow-up Follow-up with Primary Care SUPPLEMENTAL MATERIAL: None REFERRAL (RECOMMENDATION): None Electronically Signed By: Bren Mathew RN In Department: HOSP MAIN [id number] Normal [facility] Prot CSF-mCncon 06-12-2024 Protein (CSF) [Mass/Vol] 23 mg/dL Normal 15-45 [facility] Comment on above: Order Comment: Speci men Type: CEREBROSPINAL FLUID SPECIMENOrdering Facility: [facility] Address: [address] [place] [address] Performed By: #### 2 342-4, 2880-3 ####[facility] LABCLIA [id number] [facility] [id number] [address] [id number] [place] UAon 06-12-2024 Color (U) Yellow Normal [facility] Comment on above: Performed By: #### P REGU, UAMICAO, UA #### [place] [address] Glucose (U) [Mass/Vol] Negative Normal Negative [facility] Comment on above: Performed By: #### P REGU, UAMICAO, UA #### [place] [address] Ketones Ql (U) Negative Normal Negative [facility] Comment on above: Performed By: #### P REGU, UAMICAO, UA #### [place] [address] UA Appear Slightly Cloudy Abnormal Clear [facility] Comment on above: Performed By: #### P REGU, UAMICAO, UA #### [place] [address] UA Blood Moderate Abnormal Negative [facility] Comment on above: Performed By: #### P REGU, UAMICAO, UA #### [place] [address] UA Leuk Est Negative Normal Negative [facility] Comment on above: Performed By: #### P REGU, UAMICAO, UA #### [place] [address] UA Nitrite Negative Normal Negative [facility] Comment on above: Performed By: #### P REGU, UAMICAO, UA #### [place] [address] UA pH 6.5 Normal 5.0 - 8.0 [facility] Comment on above: Performed By: #### P REGU, UAMICAO, UA #### [place] [address] UA Protein Negative Normal Negative [facility] Comment on above: Performed By: #### P REGU, UAMICAO, UA #### [place] [id number] UA Spec Grav >=1.030 Abnormal 1.015-1.025 [facility] Comment on above: Performed By: #### P REGU, UAMICAO, UA #### [place] [address] UA Specimen Type Void Normal [facility] Comment on above: Performed By: #### P REGU, UAMICAO, UA #### [place] [id number] UA Urobilinogen 0.2 E.U./dL Normal 0.2-1.0 [facility] Comment on above: Performed By: #### P REGU, UAMICAO, UA #### [place] [address] Urobilinogen (U) [Mass/Vol] Negative Normal Negative [facility] Comment on above: Performed By: #### P REGU, UAMICAO, UA #### [place] [id number] [facility] 05-21-2024 [facility] Telephone ([facility]) SONDRA BLANCO ([id number]) 1985 F Date Time Provider Department 05/21/24 CHULA NICOLAS [facility] During your visit today, we recorded the following information about you: Mary Choudhury RN 05/21/2024 9:16 AM Signed Referral from Dr Allegra Colón to Dr Nicolas Diagnosis: 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 Valdez Lund 05/29/2024 3:45 PM Addendum Imaging up to date in chart for the past year as all done at [facility]. 05.29.24 Made On: Confirmed: 05/21/2024 10:46 AM 05/29/2024 3:42 PM By: By: VALDEZ LUND [[id number]] (ES) USER, MYCHART [[id number]] (PtMobApp) Allergies As of Date: 05/21/2024 Noted Allergy Reaction TAPE (ADHESIVE TAPE (ROSINS)) 07/18/2013 2 - Rash Comments: EKG tape pleitez skin- other tape gives patient rashes Date Reviewed: 05/20/2024 Reviewed by: Allegra Colón MD - Fully Assessed Reason for Visit: Appointment [186] Cmt: Endovascular Referral Future Appointment [256] Cmt: New Patient [place] Praveen Prescriptions as of 05/29/2024 - acetaZOLAMIDE SR (DIAMOX SEQUELS) 500 mg capsule Take 2 capsules by mouth two times a day. - LORazepam (ATIVAN) 1 mg tablet Take 1 mg by mouth as needed for anxiety. - iv contrast (will be provided with radiology test) MRV Brain Inject, intravenously, once for 1 dose. No IV access, insert saline lock prior to the beginning of sedation, infusion, injection of imaging exam. Discontinue saline lock post exam. If Pt. has a central line or IVAD, may access for administration according to line specific nursing protocol. Once exam is complete flush line and de-access according to line specific nursing protocol in the MR contrast administration guidelines link. - venlafaxine ER (EFFEXOR XR) 75 mg 24 hr capsule Take 1 capsule by mouth every afternoon. - Miscellaneous Medical Supply (BLOOD PRESSURE CUFF) 1 Each once daily. - ibuprofen (MOTRIN) 600 mg tablet Take 600 mg by mouth every 6 hours as needed. Problem List As Of Date 05/21/2024 Noted Resolved ABDOMINAL PAIN RLQ [R10.31] 08/16/2005 WELL-WOMAN CARE [Z01.419] 12/16/2007 Pain [R52] 07/18/2013 Hypertension [I10] 07/18/2013 Post depression [F53.0] 07/18/2013 Pulmonary nodule [R91.1] 07/18/2013 Palpitations [R00.2] 08/22/2013 Major depressive disorder [F32.9] 11/25/2013 PTSD (post-traumatic stress disorder) [F43.10] 11/25/2013 Abdominal pain [R10.9] 07/25/2018 IIH (idiopathic intracranial hypertension) [G93*11/24/2020 Obesity due to excess calories without serious *11/24/2020 Migraine with aura and without status migrainos*02/27/2023 Idiopathic intracranial hypertension [G93.2] 04/26/2023 Encounter Status:Closed by MARY [facility]DHURY [facility]ONDR[facility] BLANCO ([id number]) 1985 F Date Time Provider Department 05/21/24 SILVESTRE JUSTICE [facility] During your visit today, we recorded the following information about you: Silvestre Justice PA-C 05/21/2024 2:[address] Lopez (next available is fine) Dr. Lopez No imaging (LP is Not needed prior) Leslie Jo 05/21/2024 3:36 PM Signed Patient verified by name and . Patient accepted next available vv with Dr. Lopez for 07/15/24. Confirmed with RYAN Wilson that the patient would not be able to be seen in 2-4wks. JAQUELINE Cueva Allergies As of Date: 05/21/2024 Noted Allergy Reaction TAPE (ADHESIVE TAPE (ROSINS)) 07/18/2013 2 - Rash Comments: EKG tape pleitez skin- other tape gives patient rashes Date Reviewed: 05/20/2024 Reviewed by: Allegra Colón MD - Fully Assessed Reason for Visit: Appointment [186] Prescriptions as of 05/21/2024 - acetaZOLAMIDE SR (DIAMOX SEQUELS) 500 mg capsule Take 2 capsules by mouth two times a day. - LORazepam (ATIVAN) 1 mg tablet Take 1 mg by mouth as needed for anxiety. - iv contrast (will be provided with radiology test) MRV Brain Inject, intravenously, once for 1 dose. No IV access, insert saline lock prior to the beginning of sedation, infusion, injection of imaging exam. Discontinue saline lock post exam. If Pt. has a central line or IVAD, may access for administration according to line specific nursing protocol. Once exam is complete flush line and de-access according to line specific nursing protocol in the MR contrast administration guidelines link. - venlafaxine ER (EFFEXOR XR) 75 mg 24 hr capsule Take 1 capsule by mouth every afternoon. - Miscellaneous Medical Supply (BLOOD PRESSURE CUFF) 1 Each once daily. - ibuprofen (MOTRIN) 600 mg tablet Take 600 mg by mouth every 6 hours as needed. Problem List As Of Date 05/21/2024 Noted Resolved ABDOMINAL PAIN RLQ [R10.31] 08/16/2005 WELL-WOMAN CARE [Z01.419] 12/16/2007 Pain [R52] 07/18/2013 Hypertension [I10] 07/18/2013 Post depression [F53.0] 07/18/2013 Pulmonary nodule [R91.1] 07/18/2013 Palpitations [R00.2] 08/22/2013 Major depressive disorder [F32.9] 11/25/2013 PTSD (post-traumatic stress disorder) [F43.10] 11/25/2013 Abdominal pain [R10.9] 07/25/2018 IIH (idiopathic intracranial hypertension) [G93*11/24/2020 Obesity due to excess calories without serious *11/24/2020 Migraine with aura and without status migrainos*02/27/2023 Idiopathic intracranial hypertension [G93.2] 04/26/2023 Encounter Status:Closed by SILVESTRE JUSTICE on 05/21/24 Normal [facility] MRA Head veins WO and W cont rast Tiffany 05-15-2024 IMPRESSION: Suspect mild segmental stenosis of the left transverse sinus, similar to MRV of 04/26/2023. Unremarkable remaining intracranial MRV. Incidental partially empty sella. Relief Captain: PSCRosa Transcribe Date/Time: May 15 2024 5:10P Dictated by : AYLEEN SHAIKH MD This examination was interpreted and the report reviewed and electronically signed by: AYLEEN SHAIKH MD on May 15 2024 5:16PM [facility] DIVISION OF RADIOLOGY * * *Final Report* * * DATE OF EXAM: May 15 2024 5:06PM Q 0336 - MRV BRAIN WO/W IVCON / PROCEDURE REASON: multiple diagnoses * * * * Physician Interpretation * * * * EXAMINATION: MRV BRAIN WO/W IVCON HISTORY: IIH (idiopathic intracranial hypertension) - Pulsatile tinnitus - Known/suspicion of dural venous thrombosis, occlusion or stenosis - Headache, papilledema TECHNIQUE: 2-D/3-D [id number] intracranial MRV. 3-D post-processed images were created, reviewed and archived. M: [id number] MR Contrast: Dotarem Contrast Dose: 20 cc Route of Administration: IV COMPARISON: MRI/MRV brain 04/26/2023 RESULT: INTRACRANIAL MRV: Normal flow-related signal and postcontrast enhancement in the dural venous sinuses without evidence of focal filling defect. Suggestion of segmental mild stenosis involving the left transverse sinus, similar to prior. No additional focal stenosis. Incidental note of partially empty sella on the sagittal T1 images. DIVISION OF RADIOLOGY Provider, [facility] - 05/15/2024 * * *Final Report* * * DATE OF EXAM: May 15 2024 5:06PM Q 0336 - MRV BRAIN WO/W IVCON / PROCEDURE REASON: multiple diagnoses * * * * Physician Interpretation * * * * EXAMINATION: MRV BRAIN WO/W IVCON HISTORY: IIH (idiopathic intracranial hypertension) - Pulsatile tinnitus - Known/suspicion of dural venous thrombosis, occlusion or stenosis - Headache, papilledema TECHNIQUE: 2-D/3-D [id number] intracranial MRV. 3-D post-processed images were created, reviewed and archived. M: [id number] MR Contrast: Dotarem Contrast Dose: 20 cc Route of Administration: IV COMPARISON: MRI/MRV brain 04/26/2023 RESULT: INTRACRANIAL MRV: Normal flow-related signal and postcontrast enhancement in the dural venous sinuses without evidence of focal filling defect. Suggestion of segmental mild stenosis involving the left transverse sinus, similar to prior. No additional focal stenosis. Incidental note of partially empty sella on the sagittal T1 images. IMPRESSION IMPRESSION: Suspect mild segmental stenosis of the left transverse sinus, similar to MRV of 04/26/2023. Unremarkable remaining intracranial MRV. Incidental partially empty sella. Relief Captain: LAITH Transcribe Date/Time: May 15 2024 5:10P Dictated by : AYLEEN SHAIKH MD This examination was interpreted and the report reviewed and electronically signed by: AYLEEN SHAIKH MD on May 15 2024 5:16PM EST [facility] Radiology Study observation (narrative) [facility] MRA Head veins WO and W cont rast IVOrdered By: Ccf Provider on 05-15-2024 [facility] MRV BRAIN WO/W IVCONon 05-15 MRV BRAIN WO/W IVCON * * *Final Report* * * DATE OF EXAM: May 15 2024 5:06PM Q 0336 - MRV BRAIN WO/W IVCON / PROCEDURE REASON: multiple diagnoses * * * * Physician Interpretation * * * * EXAMINATION: MRV BRAIN WO/W IVCON HISTORY: IIH (idiopathic intracranial hypertension) - Pulsatile tinnitus - Known/suspicion of dural venous thrombosis, occlusion or stenosis - Headache, papilledema TECHNIQUE: 2-D/3-D [id number] intracranial MRV. 3-D post-processed images were created, reviewed and archived. M: [id number] MR Contrast: Dotarem Contrast Dose: 20 cc Route of Administration: IV COMPARISON: MRI/MRV brain 04/26/2023 RESULT: INTRACRANIAL MRV: Normal flow-related signal and postcontrast enhancement in the dural venous sinuses without evidence of focal filling defect. Suggestion of segmental mild stenosis involving the left transverse sinus, similar to prior. No additional focal stenosis. Incidental note of partially empty sella on the sagittal T1 images. IMPRESSION: Suspect mild segmental stenosis of the left transverse sinus, similar to MRV of 04/26/2023. Unremarkable remaining intracranial MRV. Incidental partially empty sella. Relief Captain: LAITH Transcribe Date/Time: May 15 2024 5:10P Dictated by : AYLEEN SHAIKH MD This examination was interpreted and the report reviewed and electronically signed by: AYLEEN SHAIKH MD on May 15 2024 5:16PM EST [id number] Normal [facility] 05-05-2024 [facility] Telephone (MRIQ) SONDRA BLANCO ([id number]) 1985 F Date Time Provider Department 05/05/24 WILL ELDRIDGE MRIQ During your visit today, we recorded the following information about you: Will Eldridge RN 05/05/2024 3:58 PM Signed Radiology Service Pre Anesthesia Telephone Call PATIENT NAME: Sondra Blanco DATE OF CALL: May 05, 2024 TIME: 3:54 PM Discussed anxiolysis procedure with patient for upcoming MRI on 05/15. States she thought it was IV but understands that it would be determined and ordered by the Radiologist here that day. Discussed needing to have a security patrol driver present. No other questions or concerns at this time. SIGNED BY: Will Eldridge RN May 05, 2024 3:54 PM Allergies As of Date: 05/05/2024 Noted Allergy Reaction TAPE (ADHESIVE TAPE (ROSINS)) 07/18/2013 2 - Rash Comments: EKG tape pleitez skin- other tape gives patient rashes Date Reviewed: 04/27/2024 Reviewed by: Sonya Crowder MA - Fully Assessed Reason for Visit: Radiology Pre Procedure Instructions [1506] Prescriptions as of 05/05/2024 - LORazepam (ATIVAN) 1 mg tablet Take 1 mg by mouth as needed for anxiety. - iv contrast (will be provided with radiology test) MRV Brain Inject, intravenously, once for 1 dose. No IV access, insert saline lock prior to the beginning of sedation, infusion, injection of imaging exam. Discontinue saline lock post exam. If Pt. has a central line or IVAD, may access for administration according to line specific nursing protocol. Once exam is complete flush line and de-access according to line specific nursing protocol in the MR contrast administration guidelines link. - acetaZOLAMIDE SR (DIAMOX SEQUELS) 500 mg capsule Take 2 capsules by mouth two times a day. - venlafaxine ER (EFFEXOR XR) 75 mg 24 hr capsule Take 1 capsule by mouth every afternoon. - Miscellaneous Medical Supply (BLOOD PRESSURE CUFF) 1 Each once daily. - ibuprofen (MOTRIN) 600 mg tablet Take 600 mg by mouth every 6 hours as needed. Problem List As Of Date 05/05/2024 Noted Resolved ABDOMINAL PAIN RLQ [R10.31] 08/16/2005 WELL-WOMAN CARE [Z01.419] 12/16/2007 Pain [R52] 07/18/2013 Hypertension [I10] 07/18/2013 Post depression [F53.0] 07/18/2013 Pulmonary nodule [R91.1] 07/18/2013 Palpitations [R00.2] 08/22/2013 Major depressive disorder [F32.9] 11/25/2013 PTSD (post-traumatic stress disorder) [F43.10] 11/25/2013 Abdominal pain [R10.9] 07/25/2018 IIH (idiopathic intracranial hypertension) [G93*11/24/2020 Obesity due to excess calories without serious *11/24/2020 Migraine with aura and without status migrainos*02/27/2023 Idiopathic intracranial hypertension [G93.2] 04/26/2023 Encounter Status:Closed by WILL ELDRIDGE on 05/05/24 [facility] CNOVon 04-27-2024 CNOV Office Visit (UCWSTR ) SONDRA BLANCO ([id number]) 1985 F Date Time Provider Department 04/27/24 3:00 PM ADWOA MOSLEY UCWSTR During your visit today, we recorded the following information about you: Temperature Pulse Respiration Blood pressure 98.1 degrees 70/minute 18/minute 132/90 Weight 104.8 kg Adwoa Mosley APRN.CNP 04/27/2024 3:19 PM Signed Subjective HPI HPI Sondra Blanco is a 38 year old female who presents today for CC of left wrist injury. This started 2 days ago. Has tried otc medication for relief. Symptoms are worsened by rom. Denies history of surgery or injury to left wrist. Denies numbness and tingling of left hand. Denies possibility of being . 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 PAST SURGICAL HISTORY 2011: CHOLECYSTECTOMY 07/29/2018: COLONOSCOPY FLX DX W/COLLJ SPEC WHEN PFRMD Comment: Colonoscopy 02/12/2023: ECTOPIC - TREATMENT 07/29/2018: ESOPHAGOGASTRODUODENOSCOPY TRANSORAL DIAGNOSTIC Comment: EGD 08/31/2015: [facility] Comment: Myringotomy/tubes- right ear No date: PAST SURGICAL HISTORY OF Comment: tubes in ears 2011: REPAIR UMBILICAL HERNIA No date: UNSPECIFIED ORAL SURGERY PROCEDURE, BY REPORT Comment: 4 teeth pulled No date: [facility] DELIVERY SCHEDULING ORDER ALLERGIES Tape [Adhesive Tape (Rosins)] MEDICATIONS LORazepam (ATIVAN) 1 mg tablet Take 1 mg by mouth as needed for anxiety. acetaZOLAMIDE SR (DIAMOX SEQUELS) 500 mg capsule Take 2 capsules by mouth two times a day. venlafaxine ER (EFFEXOR XR) 75 mg 24 hr capsule Take 1 capsule by mouth every afternoon. Miscellaneous Medical Supply (BLOOD PRESSURE CUFF) 1 Each once daily. ibuprofen (MOTRIN) 600 mg tablet Take 600 mg by mouth every 6 hours as needed. iv contrast (will be provided with radiology test) [facility] Brain Inject, intravenously, once for 1 dose. No IV access, insert saline lock prior to the beginning of sedation, infusion, injection of imaging exam. Discontinue saline lock post exam. If Pt. has a central line or IVAD, may access for administration according to line specific nursing protocol. Once exam is complete flush line and de-access according to line specific nursing protocol in the MR contrast administration guidelines link. FAMILY HISTORY Adopted: Yes Problem Relation Age of Onset Cancer Maternal Aunt Social History Tobacco Use Smoking status: Never Smokeless tobacco: Never Vaping Use Vaping status: Never Used Substance Use Topics Alcohol use: Yes Comment: very rare Drug use: No ROS Objective Blood pressure 132/90, pulse 70, temperature 36.7 ?C (98.1 ?F), resp. rate 18, weight 104.8 kg (231 lb 0.7 oz), last menstrual period 04/10/2024, SpO2 100%. Physical Exam Constitutional: General: She is not in acute distress. Appearance: She is not toxic-appearing or diaphoretic. HENT: Head: Normocephalic and atraumatic. Pulmonary: Effort: Pulmonary effort is normal. No accessory muscle usage or respiratory distress. Musculoskeletal: Arms: Neurological: Mental Status: She is alert and oriented to person, place, and time. ASSESSMENT/PLAN: 1. Injury of left wrist, initial encounter - ICD9: 959.3, ICD10: S69.92XA No xray at time of exam Placed in splint Pain relief discussed Will call results tomorrow. - XR WRIST GENERAL 3V PA/LAT/OBL LEFT Adwoa Mosley APRN.DIE STORAGE CLERK Allergies As of Date: 04/27/2024 Noted Allergy Reaction TAPE (ADHESIVE TAPE (ROSINS)) 07/18/2013 2 - Rash Comments: EKG tape pleitez skin- other tape gives patient rashes Date Reviewed: 04/27/2024 Reviewed by: Sonya Crowder MA - Fully Assessed Reason for Visit: Trauma [112] Cmt: Left arm injury x 2 days Primary Visit Diagnosis:Injury of left wrist, initial encounter [S69.92XA] Order(s):XR WRIST GENERAL 3V PA/LAT/OBL LEFT [[id number]] Order #: [id number] Prescriptions as of 04/27/2024 - LORazepam (ATIVAN) 1 mg tablet Take 1 mg by mouth as needed for anxiety. - iv contrast (will be provided with radiology test) MRV Brain Inject, intravenously, once for 1 dose. No IV access, insert saline lock prior to the beginning of sedation, infusion, injection of imaging exam. Discontinue saline lock post exam. If Pt. has a central line or IVAD, may access for administration according to line specific nursing protocol. Once exam is complete flush line and de-access according to line specific nursing protocol in the MR contrast administration guidelines link. (more content not included)... Normal [facility] CNOVon 04-17-2024 CNOV Office Visit (NSCAMN ) SONDRA BLANCO ([id number]) 1985 F Date Time Provider Department 04/17/24 9:30 AM SILVESTRE JUSTICE NSCAMN During your visit today, we recorded the following information about you: Temperature Pulse Respiration Blood pressure 98 degrees 65/minute 18/minute 140/95 Weight Height Last Period 106.3 kg 1.67 m 04/10/24 Silvestre Justice PA-C 04/17/2024 10:28 AM Signed This note was created using [employer]. Subjective Sondra Blanco is a 38 year old female here for evaluation of IIH. She was initially dx'd in 2014 with recurrence in 2022. Apparently, she had lack of disc edema reported by her PCP in February of 2023. She presented to the ED in April of 2023 with worsening eldridge's. She had an LP with an OP of 33. 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 She was started on diamox 500 mg bid with improvement of the eldridge's. She continued to have occasional visual obscurations and blurry vision on the R. February of 2024, she noted recurrence of the pulsatile tinnitus, mostly with standing and more consistent visual obscurations. She went back to the ED and they increased the diamox to 1000mg bid. She was seen by our [facility] who noted b/l disc edema, referred to neuro ophthalmology and increased diamox to 1.5gm bid. She has been having memory difficulties, frequently dropping objects and since February having sporadid fluid from the nose and ears. There is note of metabolic acidosis when she was on 500mg diamox bid, so her diamox was decreased to 1g bid. Review of Systems Objective LMP 12/13/2023 (Exact Date) Physical Exam Constitutional: Appearance: Normal appearance. HENT: Head: Normocephalic and atraumatic. Eyes: Extraocular Movements: Extraocular movements intact. Conjunctiva/sclera: Conjunctivae normal. Pulmonary: Effort: Pulmonary effort is normal. No respiratory distress. Skin: General: Skin is warm and dry. Neurological: General: No focal deficit present. Mental Status: She is alert and oriented to person, place, and time. Cranial Nerves: No dysarthria or facial asymmetry. Gait: Gait normal. Psychiatric: Mood and Affect: Mood normal. Behavior: Behavior normal. Assessment and Plan IIH B/l Papilledema Last IR LP OP April Currently on 1g diamox bid Continued papilledema despite increasing doses of diamox ELDRIDGE's, pulsatile tinnitus MRI shows partially empty sella prominent bilateral Meckel's caves, mildly tortuous and prominent bilateral optic nerve sheaths with mildly stenotic left distal transvenous venous sinus Pt scheduled for MRV Recommend repeat IR LP for OP and drainage. F/u with Dr. Lopez after If she is a candidate for stenting, she may avoid shunting. If she is not a candidate for stenting, will likely require a shunt. Also recommend endocrine weight management. I spent a total of 50 minutes on the date of the service which included preparing to see the patient, gule-os-osgu patient care, completing clinical documentation, obtaining and/or reviewing separately obtained history, performing a medically appropriate examination, counseling and educating the patient/family/caregiver, ordering medications, tests, or procedures, communicating with other HCPs (not separately reported), independently interpreting results (not separately reported), communicating results to the patient/family/caregiver, and care coordination (not separately reported). Nora Gan MA 04/17/2024 9:40 AM Signed Additional intake questions: Has the patient had fever, nausea, vomiting, diarrhea, constipation, fatigue for > 1 week? No Does the patient have a decreased appetite? No Does patient want to see a Blueprint Cutter? No (yes to any of above refer patient to schedulers for dietitian appointment) ) Does patient have any new or increased numbness or tingling of extremities? No Is patient interested in fertility information? No Does patient need any prescription refills? No Does patient have an advanced directive in place? No, Patient referred to [facility] Electronically Signed By: Nora Gan MA Referring Provider: CRESENCIO BOYLE [[id number]] Allergies As of Date: 04/17/2024 Noted Allergy Reaction TAPE (ADHESIVE TAPE (ROSINS)) 07/18/2013 2 - Rash Comments: EKG tape pleitez skin- other tape gives patient rashes Date Reviewed: 04/17/2024 Reviewed by: Nora Gan MA - Fully Assessed Reason for Visit: New Patient [172] Primary Visit Diagnosis:IIH (idiopathic intracranial hypertension) [G93.2] Order(s):ENDOCRINE MEDICAL WEIGHT MANAGEMENT [[id number]] Order #: [id number]: 1 FUTURE IR LP FOR DRAINAGE (PRESSURE) [[id number]] Order #: [id number] [] diazePAM (VALIUM) 5 mg tabletTake 1-2 tablets by mouth one time only for 1 dose.Di (more content not included)... Normal [facility] Basic metabolic 2000 panelon 03-26-2024 Anion gap [Moles/Vol] 12 mmol/L Normal 8-15 [facility] Comment on above: Order Comment: Speci men Type: BLOOD SPECIMENOrdering Facility: [facility] Address: [address] [place] [address] Performed By: #### 2 4321-2 ####[facility] LABCLIA [id number] [facility] [id number] [place] [address] [place] Calcium [Mass/Vol] 9.1 mg/dL Normal 8.5-10.2 [facility] Comment on above: Order Comment: Speci men Type: BLOOD SPECIMENOrdering Facility: [facility] Address: [address] [place] [address] Performed By: #### 2 4321-2 ####[facility] LABCLIA [id number] [place] [address] [place] Chloride [Moles/Vol] 106 mmol/L Normal 98-107 [facility] Comment on above: Order Comment: Speci men Type: BLOOD SPECIMENOrdering Facility: [facility] Address: [address] [place] [address] Performed By: #### 2 4321-2 ####[facility] LABIA [id number] [place] [address] [place] CO2 [Moles/Vol] 24 mmol/L Normal 22-30 [facility] Comment on above: Order Comment: Speci men Type: BLOOD SPECIMENOrdering Facility: [facility] Address: [address] [place] [address] Performed By: #### 2 4321-2 ####[facility] [id number] [place] [address] [place] Creatinine [Mass/Vol] 0.81 mg/dL Normal 0.58-0.96 [facility] Comment on above: Order Comment: Speci men Type: BLOOD SPECIMENOrdering Facility: [facility] Address: [address] [place] [address] Performed By: #### 2 4321-2 ####[facility] [id number] [place] [address] [place] Creatinine and Glomerular filtration rate.predicted panel (S/P/Bld) 97 mL/min/1.73m??? Normal >=60 [facility] Comment on above: Order Comment: Speci men Type: BLOOD SPECIMENOrdering Facility: [facility] Address: [address] [place] [address] Result Comment: Bhavya mated Glomerular Filtration Rate (eGFR) is calculated using the 2020 CKD-EPI creatinine equation. This equation utilizes serum creatinine, sex, and age as parameters. The creatinine assay has traceable calibration to isotope dilution-mass spectrometry. Refer to KDIGO guidelines for clinical interpretation. In patients with unstable renal function, e.g. those with acute kidney injury, the eGFR may not accurately reflect actual GFR. Performed By: #### 2 4321-2 ####[facility] LABIA [id number] [place] [address] [place] Glucose [Mass/Vol] 86 mg/dL Normal 74-99 [facility] Comment on above: Order Comment: Speci men Type: BLOOD SPECIMENOrdering Facility: [facility] Address: [address] [place] [address] Result Comment: The [place] Diabetes Association (ADA) provides guidance for cutoff values for fasting glucose and random glucose. The ADA defines fasting as no caloric intake for at least 8 hours. Fasting plasma glucose results between 100 to 125 mg/dL indicate increased risk for diabetes (prediabetes). Fasting plasma glucose results greater than or equal to 126 mg/dL meet the criteria for diagnosis of diabetes. In the absence of unequivocal hyperglycemia, results should be confirmed by repeat testing. In a patient with classic symptoms of hyperglycemia or hyperglycemic crisis, random plasma glucose results greater than or equal to 200 mg/dL meet the criteria for diagnosis of diabetes. Reference: Standards of Medical Care in Diabetes 2016, [place] Diabetes Association. Diabetes Care. 2016.39(Suppl 1). Performed By: #### 2 4321-2 ####[facility] LABIA [id number] [place] [address] [place] Potassium [Moles/Vol] 4.1 mmol/L Normal 3.7-5.1 [facility] Comment on above: Order Comment: Speci men Type: BLOOD SPECIMENOrdering Facility: [facility] Address: [address] [id number] Performed By: #### 2 4321-2 ####[facility] LABIA [id number] [place] [address] [place] Sodium [Moles/Vol] 142 mmol/L Normal 136-144 [facility] Comment on above: Order Comment: Speci men Type: BLOOD SPECIMENOrdering Facility: [facility] Address: [address] [place] [address] Performed By: #### 2 4321-2 ####[facility] LABCLIA [id number] [address] [place] Urea nitrogen [Mass/Vol] 13 mg/dL Normal 7-21 [facility] Comment on above: Order Comment: Speci men Type: BLOOD SPECIMENOrdering Facility: [facility] Address: [address] [place] [address] Performed By: #### 2 4321-2 ####[facility] LABIA [id number] [address] [place] OPTIC DISC PHOTO OU (BOTH EY ES)on 03-26-2024 [facility] Radiology Study observation (narrative) [facility] VISUAL FIELD 24-2 OU (BOTH E YES)on 03-26-2024 [facility] Radiology Study observation (narrative) [facility] CNOVon 03-25-2024 CNOV Office Visit (WSTR ) SONDRA BLANCO ([id number]) 1985 F Date Time Provider Department 03/25/24 1:45 PM ADWOA MOSLEY [facility] During your visit today, we recorded the following information about you: Temperature Pulse Respiration Blood pressure 98.5 degrees 94/minute 18/minute 139/94 Weight 106.7 kg Adwoa Mosley APRN.DIE STORAGE CLERK 03/25/2024 3:03 PM Signed Subjective HPI HPI Sondra Blanco is a 38 year old female who presents today for CC of left ear pain/drainage. This started 1 day ago. Has tried nothing for relief. Symptoms are worsened by nothing. Risk factors has PE tubes in bilat tm. Denies cold s/s. .Patient presents with: Ear Pain: L ear x1 day PAST MEDICAL HISTORY Diagnosis Date Adjustment disorder [...] ORDER ALLERGIES Tape [Adhesive Tape (Rosins)] MEDICATIONS ofloxacin (FLOXIN) 0.3 % otic solution Use 10 Drops in both ears two times a day for 7 days. acetaZOLAMIDE SR (DIAMOX SEQUELS) 500 mg capsule Take 2 capsules by mouth two times a day. venlafaxine ER (EFFEXOR XR) 75 mg 24 hr capsule Take 1 capsule by mouth every afternoon. Miscellaneous Medical Supply (BLOOD PRESSURE CUFF) 1 Each once daily. ibuprofen (MOTRIN) 600 mg tablet Take 600 mg by mouth every 6 hours as needed. FAMILY HISTORY Adopted: Yes Problem Relation Age of Onset Cancer Maternal Aunt Social History Tobacco Use Smoking status: Never Smokeless tobacco: Never Vaping Use Vaping Use: Never used Substance Use Topics Alcohol use: Yes Comment: very rare Drug use: No ROS Objective Blood pressure 139/94, pulse 94, temperature 36.9 ?C (98.5 ?F), resp. rate 18, weight 106.7 kg (235 lb 3.7 oz), last menstrual period 12/13/2023, SpO2 97%. Physical Exam Constitutional: General: She is not in acute distress. Appearance: She is not toxic-appearing or diaphoretic. HENT: Head: Normocephalic and atraumatic. Right Ear: Hearing, tympanic membrane, ear canal and external ear normal. A PE tube is present. Left Ear: Drainage, swelling and tenderness present. Pulmonary: Effort: Pulmonary effort is normal. No accessory muscle usage or respiratory distress. Lymphadenopathy: Cervical: No cervical adenopathy. Right cervical: No superficial cervical adenopathy. Left cervical: No superficial cervical adenopathy. Neurological: Mental Status: She is alert and oriented to person, place, and time. ASSESSMENT/PLAN: 1. Acute otitis externa of left ear, unspecified type - ICD9: 380.10, ICD10: H60.502 (primary diagnosis) -education material provided -use medication as prescribed -f/u if no better in 3-5 days -discussed proper ear hygiene -discussed prevention - OFLOXACIN 0.3 % EAR DROPS 2. Otorrhea of left ear - ICD9: 388.60, ICD10: H92.12 Suspected drainage from left PE tube See ENT for continued s/s - OFLOXACIN 0.3 % EAR DROPS Adwoa Mosley APRN.DIE STORAGE CLERK Allergies As of Date: 03/25/2024 Noted Allergy Reaction TAPE (ADHESIVE TAPE (ROSINS)) 07/18/2013 2 - Rash Comments: EKG tape pleitez skin- other tape gives patient rashes Date Reviewed: 03/25/2024 Reviewed by: Radha Tobin MA - Fully Assessed Reason for Visit: Ear Pain [817] Cmt: L ear x1 day Primary Visit Diagnosis:Acute otitis externa of left ear, unspecified type [H60.502] Other Visit Diagnosis:Otorrhea of left ear [H92.12] Order(s):ofloxacin (FLOXIN) 0.3 % otic solutionUse 10 Drops in both ears two times a day for 7 days.Disp: 5 mLRfl: 0 Prescriptions as of 03/25/2024 - ofloxacin (FLOXIN) 0.3 % otic solution Use 10 Drops in both ears two times a day for 7 days. - acetaZOLAMIDE SR (DIAMOX SEQUELS) 500 mg capsule Take 2 capsules by mouth two times a day. - venlafaxine ER (EFFEXOR XR) 75 mg 24 hr capsule Take 1 capsule by mouth every afternoon. - Miscellaneous Medical Supply (BLOOD PRESSURE CUFF) 1 Each once daily. - ibuprofen (MOTRIN) 600 mg tablet Take 600 mg by mouth every 6 hours as needed. Problem List As Of Date 03/25/2024 Noted Resolved ABDOMINAL PAIN RLQ [R10.31] 08/16/2005 WELL-WOMAN CARE [Z01.419] 12/16/2007 Pain [R52] 07/18/2013 Hypertension [I10] 07/18/2013 Post (more content not included)... Normal [facility] FUNDUS PHOTOS OU (BOTH EYES) on 03-10-2024 [facility] Radiology Study observation (narrative) [facility] OCT OPTIC NERVE CIRRUS OU (B OTH EYES)on 03-10-2024 [facility] Radiology Study observation (narrative) [facility] VISUAL FIELD 30-2 OU (BOTH E YES)on 03-10-2024 [facility] Radiology Study observation (narrative) [facility] Basic metabolic 2000 panelon 02-20-2024 Anion gap [Moles/Vol] 13 mmol/L Normal 8-15 [facility] Comment on above: Order Comment: Speci men Type: BLOOD SPECIMENOrdering Facility: [facility] Address: [address] [place] [address] Performed By: #### 2 4320-2, ####[facility] LABCLIA [id number] [place] [address] [place] Calcium [Mass/Vol] 9.0 mg/dL Normal 8.5-10.2 [facility] Comment on above: Order Comment: Speci men Type: BLOOD SPECIMENOrdering Facility: [facility] Address: [address] [place] [address] Performed By: #### 2 4320-2, ####[facility] LABCLIA [id number] [place] [id number] [place] Chloride [Moles/Vol] 113 mmol/L High 98-107 [facility] Comment on above: Order Comment: Speci men Type: BLOOD SPECIMENOrdering Facility: [facility] Address: [address] [place] [address] Performed By: #### 2 4320-2, ####[facility] LABCLIA [id number] [address] [address] [place] CO2 [Moles/Vol] 17 mmol/L Low 22-30 [facility] Comment on above: Order Comment: Speci men Type: BLOOD SPECIMENOrdering Facility: [facility] Address: [address] [place] [address] Performed By: #### 2 432-, ####[facility] LABCLIA [id number] [place] [address] [place] Creatinine [Mass/Vol] 0.80 mg/dL Normal 0.58-0.96 [facility] Comment on above: Order Comment: Evaristo griffin Type: BLOOD SPECIMENOrdering Facility: [facility] Address: [address] [place] [address] Performed By: #### 2 4320-, ####[facility] LABIA [id number] [place] [address] [place] Creatinine and Glomerular filtration rate.predicted panel (S/P/Bld) 98 mL/min/1.73m??? Normal >=60 [facility] Comment on above: Order Comment: Evaristo griffin Type: BLOOD SPECIMENOrdering Facility: [facility] Address: [address] [place] [address] Result Comment: Bhavya mated Glomerular Filtration Rate (eGFR) is calculated using the 2020 CKD-EPI creatinine equation. This equation utilizes serum creatinine, sex, and age as parameters. The creatinine assay has traceable calibration to isotope dilution-mass spectrometry. Refer to KDIGO guidelines for clinical interpretation. In patients with unstable renal function, e.g. those with acute kidney injury, the eGFR may not accurately reflect actual GFR. Performed By: #### 2 4320-10, ####[facility] LABIA [id number] [place] [address] [place] Glucose [Mass/Vol] 120 mg/dL High 74-99 [facility] Comment on above: Order Comment: Evaristo griffin Type: BLOOD SPECIMENOrdering Facility: [facility] Address: [address] [place] [address] Result Comment: The [place] Diabetes Association (ADA) provides guidance for cutoff values for fasting glucose and random glucose. The ADA defines fasting as no caloric intake for at least 8 hours. Fasting plasma glucose results between 100 to 125 mg/dL indicate increased risk for diabetes (prediabetes). Fasting plasma glucose results greater than or equal to 126 mg/dL meet the criteria for diagnosis of diabetes. In the absence of unequivocal hyperglycemia, results should be confirmed by repeat testing. In a patient with classic symptoms of hyperglycemia or hyperglycemic crisis, random plasma glucose results greater than or equal to 200 mg/dL meet the criteria for diagnosis of diabetes. Reference: Standards of Medical Care in Diabetes 2016, [place] [employer] Association. Diabetes Care. 2016.39(Suppl 1). Performed By: #### 2 4320-10, ####[facility] LABCLIA [id number] [place] [address] [place] Potassium [Moles/Vol] 3.5 mmol/L Low 3.7-5.1 [facility] [place] Comment on above: Order Comment: Carolinai men Type: BLOOD SPECIMENOrdering Facility: [facility] Address: [address] [place] [address] Performed By: #### 2 4320-10, ####[facility] LABIA [id number] [place] [address] [place] Sodium [Moles/Vol] 143 mmol/L Normal 136-144 [facility] Comment on above: Order Comment: Carolinai gaby Type: BLOOD SPECIMENOrdering Facility: [facility] Address: [address] [place] [address] Performed By: #### 2 4320-10, ####[facility] LABCLIA [id number] [place] [address] [place] Urea nitrogen [Mass/Vol] 15 mg/dL Normal 7-21 [facility] [place] Comment on above: Order Comment: Speci men Type: BLOOD SPECIMENOrdering Facility: [facility] Address: [address] [place] [address] Performed By: #### 2 4320-10, ####[facility] LABCLIA [id number] [place] [id number] [place] CBC W Auto Differential pane l (Bld)on 06-12-2024 Basophils (Bld) [#/Vol] 0.09 10*3/uL Normal <0.11 [facility] [place] Comment on above: Order Comment: Speci men Type: BLOOD SPECIMENOrdering Facility: [facility] Address: [address] [place] [address] Performed By: #### 5 7021-8 ####[facility] LABCLIA [id number] [place] [address] [place] Basophils/100 WBC (Bld) 0.9 % Normal [facility] [place] Comment on above: Order Comment: Speci men Type: BLOOD SPECIMENOrdering Facility: [facility] Address: [address] [place] [address] Performed By: #### 5 7021-8 ####[facility] LABCLIA [id number] [place] [address] [place] Differential cell count method Nom (Bld) Auto Normal [facility] [place] Comment on above: Order Comment: Speci men Type: BLOOD SPECIMENOrdering Facility: [facility] Address: [address] [place] [address] Performed By: #### 5 7021-8 ####[facility] LABCLIA [id number] [place] [address] [place] Eosinophils (Bld) [#/Vol] 0.14 10*3/uL Normal <0.46 [facility] [place] Comment on above: Order Comment: Speci men Type: BLOOD SPECIMENOrdering Facility: [facility] Address: [address] [place] [address] Performed By: #### 5 7021-8 ####[facility] LABCLIA [id number] [place] [address] [place] Eosinophils/100 WBC (Bld) 1.3 % Normal [facility] [place] Comment on above: Order Comment: Speci men Type: BLOOD SPECIMENOrdering Facility: [facility] Address: [address] [place] [address] Performed By: #### 5 7021-8 ####[facility] LABCLIA [id number] [place] [address] [place] Erythrocyte distribution width (RBC) [Ratio] 14.6 % Normal 11.5-15.0 [facility] [place] Comment on above: Order Comment: Speci men Type: BLOOD SPECIMENOrdering Facility: [facility] Address: [address] [place] [address] Performed By: #### 5 7021-8 ####[facility] LABIA [id number] [place] [address] [place] Hematocrit (Bld) [Volume fraction] 37.5 % Normal 36.0-46.0 [facility] [place] Comment on above: Order Comment: Speci men Type: BLOOD SPECIMENOrdering Facility: [facility] Address: [address] [place] [address] Performed By: #### 5 7021-8 ####[facility] LABIA [id number] [place] [address] [place] Hemoglobin (Bld) [Mass/Vol] 12.5 g/dL Normal 11.5-15.5 [facility] [place] Comment on above: Order Comment: Speci men Type: BLOOD SPECIMENOrdering Facility: [facility] Address: [address] [place] [address] Performed By: #### 5 7021-8 ####[facility] LABIA [id number] [place] [address] [place] Immature granulocytes (Bld) [#/Vol] 0.03 10*3/uL Normal <0.10 [facility] [place] Comment on above: Order Comment: Speci men Type: BLOOD SPECIMENOrdering Facility: [facility] Address: [address] [place] [address] Performed By: #### 5 7021-8 ####[facility] LABIA [id number] [place] [address] [place] Immature granulocytes/100 WBC (Bld) 0.3 % Normal [facility] [place] Comment on above: Order Comment: Speci men Type: BLOOD SPECIMENOrdering Facility: [facility] Address: [address] [place] [address] Performed By: #### 5 7021-8 ####[facility] LABCLIA [id number] [place] [address] [place] Lymphocytes (Bld) [#/Vol] 2.26 10*3/uL Normal 1.00-4.00 [facility] [place] Comment on above: Order Comment: Speci men Type: BLOOD SPECIMENOrdering Facility: [facility] Address: [address] [place] [address] Performed By: #### 5 7021-8 ####[facility] LABCLIA [id number] [place] [address] [place] Lymphocytes/100 WBC (Bld) 21.6 % Normal [facility] [place] Comment on above: Order Comment: Speci men Type: BLOOD SPECIMENOrdering Facility: [facility] Address: [address] [place] [address] Performed By: #### 5 7021-8 ####[facility] LABCLIA [id number] [place] [address] [place] MCH (RBC) [Entitic mass] 25.4 pg Low 26.0-34.0 [facility] [place] Comment on above: Order Comment: Speci men Type: BLOOD SPECIMENOrdering Facility: [facility] Address: [address] [place] [address] Performed By: #### 5 7021-8 ####[facility] LABCLIA [id number] [place] [address] [place] MCHC (RBC) [Mass/Vol] 33.3 g/dL Normal 30.5-36.0 [facility] [place] Comment on above: Order Comment: Speci men Type: BLOOD SPECIMENOrdering Facility: [facility] Address: [address] [place] [address] Performed By: #### 5 7021-8 ####[facility] LABCLIA [id number] [place] [address] [place] MCV (RBC) [Entitic vol] 76.1 fL Low 80.0-100.0 [facility] [place] Comment on above: Order Comment: Speci men Type: BLOOD SPECIMENOrdering Facility: [facility] Address: [address] [place] [address] Performed By: #### 5 7021-8 ####[facility] LABCLIA [id number] [place] [address] [place] Monocytes (Bld) [#/Vol] 0.62 10*3/uL Normal <0.87 [facility] [place] Comment on above: Order Comment: Speci men Type: BLOOD SPECIMENOrdering Facility: [facility] Address: [address] [place] [address] Performed By: #### 5 7021-8 ####[facility] LABCLIA [id number] [place] [address] [place] Monocytes/100 WBC (Bld) 5.9 % Normal [facility] [place] Comment on above: Order Comment: Speci men Type: BLOOD SPECIMENOrdering Facility: [facility] Address: [address] [place] [address] Performed By: #### 5 7021-8 ####[facility] LABCLIA [id number] [place] [address] [place] Neutrophils (Bld) [#/Vol] 7.31 10*3/uL Normal 1.45-7.50 [facility] [place] Comment on above: Order Comment: Speci men Type: BLOOD SPECIMENOrdering Facility: [facility] Address: [address] [place] [address] Performed By: #### 5 7021-8 ####[facility] LABCLIA [id number] [place] [address] [place] Neutrophils/100 WBC (Bld) 70.0 % Normal [facility] [place] Comment on above: Order Comment: Speci men Type: BLOOD SPECIMENOrdering Facility: [facility] Address: [address] [place] [address] Performed By: #### 5 7021-8 ####[facility] LABCLIA [id number] [place] [address] [place] Nucleated RBC (Bld) [#/Vol] 10*3/uL Normal <0.01 [facility] [place] Comment on above: Order Comment: Speci men Type: BLOOD SPECIMENOrdering Facility: [facility] Address: [address] [place] [address] Performed By: #### 5 7021-8 ####[facility] LABCLIA [id number] [place] [address] [place] Nucleated RBC/100 WBC (Bld) [Ratio] 0.0 /100 WBC Normal [facility] [place] Comment on above: Order Comment: Speci men Type: BLOOD SPECIMENOrdering Facility: [facility] Address: [address] [place] [address] Performed By: #### 5 7021-8 ####[facility] LABCLIA [id number] [place] [address] [place] Platelet mean volume (Bld) [Entitic vol] 9.4 fL Normal 9.0-12.7 [facility] [place] Comment on above: Order Comment: Speci men Type: BLOOD SPECIMENOrdering Facility: [facility] Address: [address] [place] [address] Performed By: #### 5 7021-8 ####[facility] LABCLIA [id number] [place] [address] [place] Platelets (Bld) [#/Vol] 299 10*3/uL Normal 150-400 [facility] [place] Comment on above: Order Comment: Speci men Type: BLOOD SPECIMENOrdering Facility: [facility] Address: [address] [place] [address] Performed By: #### 5 7021-8 ####[facility] LABCLIA [id number] [place] [address] [place] RBC (Bld) [#/Vol] 4.93 10*6/uL Normal 3.90-5.20 [facility] Comment on above: Order Comment: Speci men Type: BLOOD SPECIMENOrdering Facility: [facility] Address: [address] [place] [address] Performed By: #### 5 7021-8 ####[facility] LABCLIA [id number] [place] [address] [place] WBC (Bld) [#/Vol] 10.45 10*3/uL Normal 3.70-11.00 [facility] Comment on above: Order Comment: Speci men Type: BLOOD SPECIMENOrdering Facility: [facility] Address: [address] [place] [address] Performed By: #### 5 7021-8 ####[facility] LABIA [id number] [place] [address] [place] CONSULTon 02-20-2024 CONSULT HNO ID: [id number] Author: FRANCES SINGH DO Service: Neurology General Author Type: Physician Type: Consults Filed: 02/20/2024 18:05 Note Text: INITIAL CONSULT - GENERAL NEUROLOGY SERVICE DATE: 02/20/2024 SERVICE TIME: 2:18 PM Team Requesting Consult: ED Current Attending Provider: Nav Bowens MD Neurology was asked to evaluate Sondra Blanco, a 38 year old female. Our recommendations of care will be communicated by shared medical record. Subjective HPI: Sondra Blanco is a 38 year old female with PMHx - IIH on acetazolamide 500 mg bid - migraine with aura - ectopic 02/12/2023 Presents today for pressure in her eyes, tinnitus and blurry vision. Reports her symptoms started about 1 week ago. She has pressure in her eyes and associated retro-orbital pain. Hears whooshing and ringing in her ears. Has transient vision loss in her eyes when looking towards the sun, she sees white spots. Her vision is also blurry at times, feels like her vision comes and goes. Also has dizziness, feels like she is stumbling. Denies N/V, is still eating okay. Has some pressure down her neck that stops at her shoulder blades. Saw her opthomaologist in [place] for these symptoms about 3 days ago, was advised to increse Diamox from 500 mg bid to 500 mg tid, has been taking this for 3 days, has not noticed any improvement in her symptoms. Has history of migraines with aura, typically sees flashing lights, has loss of vision and facial numbness. Ibuprofen helps with her migraines. Takes ibuprofen as needed for migraine, but because she has been feeling so much pain she has been taking it everyday for the last week. Used to follow with Dr. Flores for IIH, ANITA 05/04/23, was recommend to increase diamox to [address] Flores restired and she has not been seen by anyone since then; follows with local opthamoloigst Dr. Novak in [place]. In the ED CT Brain showed no acute findings. Last LP 04/26/23 had opening pressure 33. 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 Has had 7 LP's total for her symptoms. Current Facility-Administered Medications Medication Dose Route Frequency keTORolac 15 mg injection (Toradol) 15 mg INTRAVENOUS ONCE magnesium sulfate 1 g in D5W 100 mL 1 g INTRAVENOUS ONCE NaCl 0.9% iv flush bag 20 mL INTRAVENOUS PRN PAST MEDICAL HISTORY Diagnosis Date Adjustment disorder [...] OF tubes in ears REPAIR UMBILICAL HERNIA 2012 UNSPECIFIED ORAL SURGERY PROCEDURE, BY REPORT 4 teeth pulled [facility]I DELIVERY SCHEDULING ORDER Social History Tobacco Use Smoking status: Never Smokeless tobacco: Never Vaping Use Vaping Use: Never used Substance Use Topics Alcohol use: Yes Comment: very rare Drug use: No FAMILY HISTORY Adopted: Yes Problem Relation Age of Onset Cancer Maternal Aunt ALLERGIES Allergen Reactions Tape [Adhesive Tape* Rash EKG tape pleitez skin- other tape gives patient rashes Objective REVIEW OF SYSTEMS: GENERAL: Normal sleep, appetite and activity. HEENT: Head Positive for headache NECK: SEE HPI RESPIRATORY: Negative for cough, wheezing or respiratory distress CARDIOVASCULAR: Negative for chest pain, syncope or heart racing GI: No nausea, vomiting, or diarrhea : No history of dysuria, frequency or incontinence MUSCULOSKELETAL: back pain SKIN: Negative for lesions, rash, and itching NEURO: See HPI PHYSICAL EXAM: General Appearance: Well appearing, alert, in no acute distress, well-hydrated, well nourished. Skin: Skin color, texture, turgor normal, no suspicious rashes or lesions Head: Normocephalic, no masses, lesions, tenderness or abnormalities Neck: Supple, no adenopathy; thyroid symmetric, normal size, no bruits Lungs: Lungs clear to auscultation. No wheezing, rhonchi, rales. Heart: RRR without murmur, gallop, or rubs. No ectopy Abdomen: Abdomen soft, non-tender. Extremities: No deformities, edema, skin discoloration, clubbing or cyanosis. Good capillary refill. Musculoskeletal: No joint swelling, deformity, or tenderness Neurological: Mental Status: Alert, oriented to person, place and time and Follows commands. Cranial Nerves: CNII: Visual acuity normal, Visual carson full to confrontation, No APD noted on (more content not included)... Normal [facility] CT BRAIN WO IVCONon 02-20-[address] BRAIN WO IVCON * * *Final Report* * * DATE OF EXAM: Feb 20 2024 1:15PM [facility] 0504 - CT BRAIN WO IVCON / PROCEDURE REASON: Headache, new or worsening (Age >= 50y) * * * * Physician Interpretation * * * * EXAMINATION: CT BRAIN WO IVCON CLINICAL HISTORY: Headache, new or worsening. History of pseudotumor cerebri with worsening symptoms wishing in the ears, dizziness. Intermittent vision changes TECHNIQUE: Serial axial images without IV contrast were obtained from the vertex to the foramen magnum. MQ: [id number]_3 CT Radiation dose: Integrated Dose-Length Product (DLP) for this visit = 781 mGy*cm CT Dose Reduction Employed: No dose reduction techniques were required COMPARISON: MRI and MRV brain 04/26/2023 RESULT: Localizer images: No additional findings. Post-operative change: None. Acute change: No evidence of an acute infarct or other acute parenchymal process. Hemorrhage: No evidence of acute intracranial hemorrhage. ECASS hemorrhagic transformation score: Not Applicable Mass Lesion / Mass Effect: There is no evidence of an intracranial mass or extraaxial fluid collection. No significant mass effect. Chronic change: None apparent. Parenchyma: There is no significant volume loss. The brain parenchyma is otherwise within normal limits for age. Ventricles: The ventricles are within normal limits of size and configuration for age. Paranasal sinuses and skull base: The visualized paranasal sinuses are grossly clear. The skull base and imaged soft tissues are unremarkable. Partially empty sella configuration. IMPRESSION: No acute intracranial abnormality. Relief Captain: PSCB Transcribe Date/Time: Feb 20 2024 1:17P Dictated by : ALLEGRA HAYNES MD This examination was interpreted and the report reviewed and electronically signed by: WILLIAMS ALMODOVAR MD on Feb 20 2024 1:27PM EST [id number] Normal [facility] ED PROV NOTEon 02-20-2024 ED PROV NOTE HNO ID: [id number] Author: CRESENCIO BOYLE PA-C Service: Emergency Medicine Author Type: Physician Rotary Swaging Machine Operator Type: ED Provider Notes Filed: 02/20/2024 22:00 Note Text: ED CONTINUATION OF CARE NOTE Code Status: Full Code Assumed care from: Dr. Nuñez Presentation / Findings / Interventions / Plan / Items to Follow Up: Pt with hx of IIH, presenting with headache, getting headache cocktail. CT brain unremarkable Labs at baseline Neuro was consulted At sign out, pending: [X] Neuro recs - they evaluated pt, advised increase in home meds. Rx sent and plan discussed with pt who was agreeable. Follow up requests placed for Neuro and Ophtho appts. ED Course as of 02/20/242199 Cresencio Boyle's Documentation SunFeb 20, 2024 1519 Reassessed pt, feeling improved, getting up to go to bathroom. Neuro arriving at bedside for evaluation. 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 [NG] 1207 CBC + DIFF(!): WBC 10.45 RBC 4.93 Hemoglobin 12.5 Hematocrit 37.5 MCV 76.1(!) MCH 25.4(!) MCHC 33.3 RDW-CV 14.6 Platelet Count 299 MPV 9.4 Neut% 70.0 Abs Neut (ANC) 7.31 Lymph% 21.6 Abs Lymph 2.26 Faulkner% 5.9 Abs Faulkner 0.62 Eosin% 1.3 Abs Eosin 0.14 Baso% 0.9 Abs Baso 0.09 Immature Gran % 0.3 IMMATURE GRANS (ABS) 0.03 NRBC 0.0 Absolute nRBC <0.01 DTYPE Auto No anemia or leukocytosis noted on CBC [NG] 1230 Magnesium: 2.2 wnl [NG] 1230 Potassium(!): 3.5 Hypokalemia, will replace [NG] 1338 CT BRAIN WO IVCON There is no evidence of an intracranial mass or extraaxial fluid collection. Ventricles are normal size. [NG] ED Course User Index [NG] Enrique Nuñez MD Clinical Impressions as of 02/20/242199 IIH (idiopathic intracranial hypertension) Pressure in head Hypokalemia Medical Decision Making SIGNATURE: Cresencio Boyle PA-C PATIENT NAME: Sondra Blanco DATE: February 20, 2024 TIME: 3:06 PM PAGER/CONTACT #: CRESENCIO BOYLE 02/20/242199 Normal [facility] ED PROV NOTE HNO ID: [id number] Author: NAV BOWENS MD Service: Emergency Medicine Author Type: Physician Type: ED Provider Notes Filed: 02/21/2024 20:16 Note Text: ED Provider Note Patient Name: Sondra Blanco : 1985 SERVICE DATE: 02/20/24 History Patient presents with: Headache Nausea: Hx of idiopathic ICH. Has had ELDRIDGE and nausea x1 week; worsening. 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 Patient states that this is similar to her previous IIH flareups and states that she has been unable to get in with her neuro-breakfast server due to the doctor retiring. Patient describes the headache as starting in the frontotemporal region and migrating to the occipital and cervical region. Patient states that there has been no change in her vision however states that she has not seen an breakfast server since her previous flareup when she presented to the ED a year ago. Patient is also stating that she is having associated chest tightness that is nonreproducible and nonpositional and does not radiate. History provided by: Patient farm crew member used: No PAST MEDICAL HISTORY Diagnosis Date Adjustment disorder [...] OF tubes in ears REPAIR UMBILICAL HERNIA 2012 UNSPECIFIED ORAL SURGERY PROCEDURE, BY REPORT 4 teeth pulled WHI DELIVERY SCHEDULING ORDER FAMILY HISTORY Adopted: Yes Problem Relation Age of Onset Cancer Maternal Aunt Social History Tobacco Use Smoking status: Never Smokeless tobacco: Never Vaping Use Vaping Use: Never used Substance and Sexual Activity Alcohol use: Yes Comment: very rare Drug use: No Sexual activity: Not on file Comment: not asked ALLERGIES Allergen Reactions Tape [Adhesive Tape* Rash EKG tape pleitez skin- other tape gives patient rashes Review of Systems HENT: Negative. Respiratory: Positive for chest tightness. Cardiovascular: Negative. Gastrointestinal: Positive for nausea. Genitourinary: Negative. Musculoskeletal: Positive for neck pain. Neurological: Positive for headaches. Negative for dizziness, seizures, speech difficulty, weakness, light-headedness and numbness. Psychiatric/Behavioral: Negative. Physical Exam Vitals BP Pulse Temp Temp src Resp SpO2 Weight Height 02/20/24 1101 02/20/24 1100 02/20/24 1100 -- 02/20/24 1100 02/20/24 1100 -- -- 149/105 72 36.8 ?C (98.2 ?F) 18 99 % Physical Exam Vitals and nursing note reviewed. Constitutional: General: She is in acute distress. Appearance: She is ill-appearing. HENT: Head: Normocephalic and atraumatic. Nose: Nose normal. Mouth/Throat: Mouth: Mucous membranes are moist. Pharynx: Oropharynx is clear. Eyes: Comments: At baseline patient has anisocoria with left pupil greater than right that is unchanged from baseline. Cardiovascular: Rate and Rhythm: Normal rate and regular rhythm. Pulses: Normal pulses. Heart sounds: Normal heart sounds. Pulmonary: Effort: Pulmonary effort is normal. Breath sounds: Normal breath sounds. Abdominal: General: Abdomen is flat. Palpations: Abdomen is soft. Musculoskeletal: General: No swelling or tenderness. Normal range of motion. Skin: General: Skin is warm and dry. Neurological: General: No focal deficit present. Mental Status: She is alert. Diagnostic Testing ED Labs Ordered and Reviewed - No data to display Procedures ED Course / Clinical Impression ED Course as of 02/21/242012 Others' Documentation SunFeb 20, 2024 111 I have personally reviewed this patients chart and have found that pt has a hx of psuedotumor cerebri c/b with anisocoria with L >> R [NG] 1207 CBC + DIFF(!): WBC 10.45 RBC 4.93 Hemoglobin 12.5 Hematocrit 37.5 MCV 76.1(!) MCH 25.4(!) MCHC 33.3 RDW-CV 14.6 Platelet Count 299 MPV 9.4 Neut% 70.0 Abs Neut (ANC) 7.31 Lymph% 21.6 Abs Lymph 2.26 Faulkner% 5.9 Abs Faulkner 0.62 Eosin% 1.3 Abs Eosin 0.14 Baso% 0.9 Abs Baso 0.09 Immature Gran % 0.3 IMMATURE GRANS (ABS) 0.03 NRBC 0.0 Absolute nRBC <0.01 DTYPE Auto No anemia or leukocytosis noted on CBC [NG] 1230 Magnesium: 2.2 wnl [NG] 1230 Potassium(!): (more content not included)... Normal [facility] [place] ED Triage Noteon 02-20-2024 ED Triage Note HNO ID: [id number] Author: TRACE FIERRO MD Service: Emergency Medicine Author Type: Physician Type: ED Triage Notes Filed: 02/20/2024 11:03 Note Text: ED TRIAGE PROVIDER NOTE Patient Name: Sondra Blanco Service Date: 02/20/24 BRIEF HPI: This is a 38 year old female who presents to the ED with: has pseudotumor cerebri with worsening symptoms +headaches and pressure Whooshing in ears , dizziness Intermittent vision changes BRIEF EXAM: NAD Awake and Alert Non labored breathing INITIAL WORKUP AND DECISION MAKING: Orders Placed This Encounter CBC + DIFF BASIC METABOLIC PNL MAGNESIUM BLD UA DIP, URINE HCG(POC) SIGNATURE: Trace Fierro MD Normal [facility] [place] Magnesium SerPl-mCncon 02-19 Magnesium [Mass/Vol] 2.2 mg/dL Normal 1.7-2.3 [facility] Comment on above: Order Comment: Speci men Type: BLOOD SPECIMENOrdering Facility: [facility] Address: [address] [place] [address] Performed By: #### 2 4321-2, 00232-3 ####[facility] LABCLIA [id number] [place] [address] [place] .Auto Diffon 02-09-2024 Basophil, Absolute 0.1 10 3/mcL Normal 0.0-0.2 [facility] ([place]) Comment on above: Performed By: #### A DIFF, CBC, ANEU, MDW #### [place] [address] [address] Basophils/100 WBC (Bld) 0.7 % Normal 0.0-2.5 [facility] ([place]) Comment on above: Performed By: #### A DIFF, CBCDORENE MDW #### [address] [address] Eosinophil, Absolute 0.2 10 3/mcL Normal 0.0-0.4 [facility] ([place]) Comment on above: Performed By: #### A DIFF, CBCDORENE MDW #### [address] [address] Eosinophils/100 WBC (Bld) 1.8 % Normal 0.0-7.0 [facility] ([place]) Comment on above: Performed By: #### A DIFF, CBCDORENE MDW #### [address] [address] Lymphocyte, Absolute 3.1 10 3/mcL Normal 0.8-3.9 [facility] ([place]) Comment on above: Performed By: #### A DIFF, CBCDORENE MDW #### [address] [address] Lymphocytes/100 WBC (Bld) 29.7 % Normal 10.0-50.0 [facility] ([place]) Comment on above: Performed By: #### A DIFF, CBCDORENE MDW #### [address] [address] Monocyte, Absolute 0.8 10 3/mcL Normal 0.2-1.0 [facility] ([place]) Comment on above: Performed By: #### A DIFF, CBCDORENE MDW #### [address] [address] Monocytes/100 WBC (Bld) 7.7 % Normal 1.7-13.0 [facility] ([place]) Comment on above: Performed By: #### A DIFF, CBCDORENE MDW #### [address] [address] Neutrophils/100 WBC (Bld) 60.1 % Normal 37.0-80.0 [facility] ([place]) Comment on above: Performed By: #### A DIFF, CBCDORENE MDW #### [address] [address] .GFRon 02-09-2024 GFR Non- 186 ml/min/1.73sqm Normal [facility] ([place]) Comment on above: Result Comment: GFR Population mean for , [...] 15 mL/min/1.73 square meters Performed By: #### Chaim MATA, CRE #### [address] [address] GFR 225 ml/min/1.73sqm Normal [facility] ([place]) Comment on above: Result Comment: GFR Population mean for , [...] 15 mL/min/1.73 square meters Performed By: #### G , CRE #### [address] [address] .MDWon 02-09-2024 Monocyte Distribution Width 14.95 Normal 0.00-20.00 [facility] ([place]) Comment on above: Result Comment: For ED adult patients suspected of sepsis, MDW<=20.0 does not rule out sepsis or risk of sepsis Performed By: #### A DIFFMANUELITO ANEU, MDW #### [place] [address] .NEUABSon 02-09-2024 Neutrophil, Absolute 6.3 10 3/mcL High 2.9-6.2 [facility] ([place]) Comment on above: Performed By: #### A DIFFMANUELITO ANEU, MDW #### [place] [address] .Urinalysis Microscopic (AO) on 02-09-2024 UA Amorphus 4+ /hpf Normal [facility] ([place]) Comment on above: Performed By: #### A DIFFMANUELITO ANEU, MDW #### [place] [address] UA RBC 0-5 Abnormal None Seen [facility] ([place]) Comment on above: Performed By: #### A DIFFMANUELITO ANEU, MDW #### [place] [address] UA Squam Epithelial 5-10 Abnormal None Seen [facility] ([place]) Comment on above: Performed By: #### A DIFFMANUELITO ANEU, MDW #### [place] [address] UA WBC 0-5 Abnormal None Seen [facility] ([place]) Comment on above: Performed By: #### A DIFFMANUELITO ANEU, MDW #### [place] [address] CBCon 02-09-2024 Erythrocyte distribution width (RBC) [Ratio] 15.4 % High 11.5-14.5 [facility] ([place]) Comment on above: Performed By: #### A DIFFMANUELITO ANEU, MDW #### [place] [address] Hematocrit (Bld) [Volume fraction] 39.0 % Normal 37.0-47.0 [facility] ([place]) Comment on above: Performed By: #### A DIFFMANUELITO ANEU, MDW #### [place] [id number] Hgb 12.6 G/dL Normal 12.0-16.0 [facility] ([place]) Comment on above: Performed By: #### A MANUELITO BOWLES ANEU, MDW #### [address] [address] MCH (RBC) [Entitic mass] 25.5 pg Low 27.0-31.2 [facility] ([place]) Comment on above: Performed By: #### A MANUELITO BOWLES ANEU, MDW #### [address] [address] MCHC 32.3 G/dL Low 33.0-37.0 [facility] ([place]) Comment on above: Performed By: #### A MANUELITO BOWLES ANEU, MDW #### [address] [address] MCV (RBC) [Entitic vol] 78.9 fL Low 80.0-94.0 [facility] ([place]) Comment on above: Performed By: #### A MANUELITO BOWLES ANEU, MDW #### [address] [address] Platelet 324 10 3/mcL Normal 130-400 [facility] ([place]) Comment on above: Performed By: #### A MANUELITO BOWLES ANEU, MDW #### [address] [address] Platelet mean volume (Bld) [Entitic vol] 7.9 fL Normal 7.4-10.4 [facility] ([place]) Comment on above: Performed By: #### A DIFFMANUELITO ANEU, MDW #### [address] [address] RBC 4.94 10 6/mcL Normal 4.20-5.40 [facility] ([place]) Comment on above: Performed By: #### A DIFFMANUELITO ANEU, MDW #### [address] [address] WBC 10.5 10 3/mcL Normal 4.6-10.8 [facility] ([place]) Comment on above: Performed By: #### A DIFF, CBC, ANEU, MDW #### [facility] [address] [place], [place] [address] CREon 02-09-2024 Creatinine [Mass/Vol] 0.39 mg/dL Low 0.55-1.02 [facility] ([place]) Comment on above: Performed By: #### G FR, CRE #### [facility] [address] [place], [place] [address] CT ABDOMEN/PELVIS W/O CONTRA STon 02-09-2024 CT ABDOMEN/PELVIS W/O CONTRAST ORIGINAL EXAMINATION: CT OF THE ABDOMEN AND PELVIS WITHOUT CONTRAST TECHNIQUE: CT of the Abdomen and pelvis without intravenous contrast was performed. Axial, sagittal and coronal reformatted images were reviewed. Low dose CT acquisition technique included one of the following options: 1. Automated exposure control, 2. Adjustment of the MA and/or KV according to patient size, or 3. Use of iterative reconstruction. COMPARISON: CT abdomen pelvis 01/28/2024 HISTORY: ORDERING SYSTEM PROVIDED HISTORY: Reason for Exam: Left thank pain FINDINGS: Support devices: None Lower thorax: Mild left base dependent subsegmental atelectasis is noted. Solid organs: The liver, spleen, pancreas, and adrenal glands are unremarkable. Biliary system: No evidence of biliary ductal dilatation. Cholecystectomy. Genitourinary: The kidneys are normal in appearance bilaterally with no evidence of hydronephrosis. A previously seen 4 mm calculus in a left inferior pole moiety is no longer conspicuous and has presumably past. No right renal calculi are present. The urinary bladder is unremarkable. Gastrointestinal: The stomach is unremarkable. The small bowel is nondistended. Moderate retained fecal matter is seen throughout the colon. No evidence of a bowel obstruction. Left inguinal hernia containing mesenteric fat only. Appendix: The appendix is not confidently identified. Peritoneum: No ascites, pneumoperitoneum, or abscess. Abdominal wall: Postsurgical changes of the mid anterior abdominal wall. Small periumbilical hernia containing mesenteric fat only. Pelvic organs: Bulbous uterus without a discrete lesion. No adnexal masses. Lymph nodes: No adenopathy by size criteria. Vascular structures: Visualized vascular structures appear normal. Osseous and soft tissue structures: Bone windows demonstrate no suspicious osteolytic or osteoblastic lesions. No fracture identified. IMPRESSION: 1. The previously seen 4 mm calculus located in a left inferior pole moiety is no longer conspicuous and has presumably passed. 2. Moderate retained fecal matter throughout the colon which may reflect constipation. Interpreted by: Simba Aceves MD Preliminary Report By: Simba Aceves MD Electronically signed By Simba Aceves MD Dictated Date: 02/09/2024 10:24:28 AM Prelim Date: 02/09/2024 10:33:24 AM Sign Date: 02/09/2024 10:33:24 AM Ordering Provider: JOHN CORDOVA [facility] ([place]) LABORATORYOrdered By: SYSTEM SYSTEM on 02-09-2024 Creatinine [Mass/Vol] 0.39 mg/dL Low 0.55 - 1.02 mg/dL AO ADM SS GFR/1.73 sq M.predicted among blacks MDRD (S/P/Bld) [Vol rate/Area] 225 ml/min/1.73sqm Invalid Interpretation Code AO Chemistry S Comment on above: Interpretive Data: GFR Population mean for , Non- Americans Ages 20-29 = 116 mL/min/1.73 sq.m. Ages 30-39 = 107 mL/min/1.73 sq.m. Ages 40-49 = 99 mL/min/1.73 sq.m. Ages 50-59 = 93 mL/min/1.73 sq.m. Ages 60-69 = 85 mL/min/1.73 sq.m. Ages 70+ = 75 mL/min/1.73 sq.m. Chronic Kidney Disease: Less than 60 mL/min/1.73 square meters End Stage Renal Disease: Less than 15 mL/min/1.73 square meters GFR/1.73 sq M.predicted among non-blacks MDRD (S/P/Bld) [Vol rate/Area] 186 ml/min/1.73sqm Invalid Interpretation Code AO Chemistry S Comment on above: Interpretive Data: GFR Population mean for , Non- Americans Ages 20-29 = 116 mL/min/1.73 sq.m. Ages 30-39 = 107 mL/min/1.73 sq.m. Ages 40-49 = 99 mL/min/1.73 sq.m. Ages 50-59 = 93 mL/min/1.73 sq.m. Ages 60-69 = 85 mL/min/1.73 sq.m. Ages 70+ = 75 mL/min/1.73 sq.m. Chronic Kidney Disease: Less than 60 mL/min/1.73 square meters End Stage Renal Disease: Less than 15 mL/min/1.73 square meters Basophil, Absolute 0.1 103/mcL Normal 0.0 - 0.2 10^3/mcL AO Workflow SS Basophils/100 WBC (Bld) 0.7 % Normal 0.0 - 2.5 % AO Workflow SS Eosinophil, Absolute 0.2 103/mcL Normal 0.0 - 0 .4 10^3/mcL AO Workflow SS Eosinophils/100 WBC (Bld) 1.8 % Normal 0.0 - 7.0 % AO Workflow SS Erythrocyte distribution width (RBC) [Ratio] 15.4 % High 11.5 - 14.5 % AO Workflow SS Hematocrit (Bld) [Volume fraction] 39.0 % Normal 37.0 - 47.0 % AO Workflow SS Hemoglobin (Bld) [Mass/Vol] 12.6 G/dL Normal 12.0 - 16.0 G/dL AO Workflow SS Lymphocyte, Absolute 3.1 103/mcL Normal 0.8 - 3 .9 10^3/mcL AO Workflow SS Lymphocytes/100 WBC (Bld) 29.7 % Normal 10.0 - 50.0 % AO Workflow SS MCH (RBC) [Entitic mass] 25.5 pg Low 27.0 - 31.2 pg AO Workflow SS MCHC 32.3 G/dL Low 33.0 - 37.0 G/dL AO Workflow SS MCV (RBC) [Entitic vol] 78.9 fL Low 80.0 - 94.0 fL AO Workflow SS Monocyte distribution width Auto (Bld) [Entitic vol] 14.95 1 Normal 0.00 - 20.00 AO Workflow SS Comment on above: Result Comment: For ED adult patients suspected of sepsis, MDW<=20.0 does not rule out sepsis or risk of sepsis Monocyte, Absolute 0.8 103/mcL Normal 0.2 - 1.0 10^3/mcL AO Workflow SS Monocytes/100 WBC (Bld) 7.7 % Normal 1.7 - 13.0 % AO Workflow SS Neutrophil, Absolute 6.3 103/mcL High 2.9 - 6 .2 10^3/mcL AO Workflow SS Neutrophils/100 WBC (Bld) 60.1 % Normal 37.0 - 80.0 % AO Workflow SS Platelet mean volume (Bld) [Entitic vol] 7.9 fL Normal 7.4 - 10.4 fL AO Workflow SS Platelets (Bld) [#/Vol] 324 103/mcL Normal 130 - 400 10^3/mcL AO Workflow SS RBC (Bld) [#/Vol] 4.94 106/mcL Normal 4.20 - 5.4 0 10^6/mcL AO Workflow SS WBC (Bld) [#/Vol] 10.5 103/mcL Normal 4.6 - 10.8 10^3/mcL AO Workflow SS LABORATORYOrdered By: Kelly Sanz on 02-09-2024 Appearance (U) Turbid *ABN* (02/09/24 10:05 AM) Invalid Interpretation Code Clear AO Auto Urine SS Bilirubin Ql (U) Negative (02/09/24 10:05 AM) Normal Negative AO Auto Urine SS Color (U) Yellow (02/09/24 10:05 AM) Normal AO Auto Urine SS Crystals.amorphous LM.HPF (Urine sed) [#/Area] 4 /[HPF] Normal AO Auto Urine SS Glucose Test strip (U) [Mass/Vol] Negative Normal Negative AO Auto Urine SS HCG ( test) Ql Negative (02/09/24 10:05 AM) Normal AO Manual Urine SS Hemoglobin Auto test strip (U) [Mass/Vol] Large *ABN* (02/09/24 10:05 AM) Invalid Interpretation Code Negative AO Auto Urine SS Ketones Ql (U) Negative Normal Negative AO Auto Urine SS test (u) int Not detected Invalid Interpretation Code AO Manual Urine SS UA Leuk Est Negative (02/09/24 10:05 AM) Normal Negative AO Auto Urine SS UA Nitrite Negative (02/09/24 10:05 AM) Normal Negative AO Auto Urine SS UA pH 7.0 (02/09/24 10:05 AM) Normal 5.0 - 8.0 AO Auto Urine SS UA Protein Negative Normal Negative AO Auto Urine SS UA RBC 0-5 /HPF Invalid Interpretation Code None Seen AO Auto Urine SS UA Spec Grav 1.020 (02/09/24 10:05 AM) Normal 1.015-1.025 AO Auto Urine SS UA Specimen Type Void (02/09/24 10:05 AM) Normal AO Auto Urine SS UA Squam Epithelial 5-10 /HPF Invalid Interpretation Code None Seen AO Auto Urine SS UA Urobilinogen 0.2 E.U./dL Normal 0.2-1.0 AO Auto Urine SS WBC LM.HPF (Urine sed) [#/Area] 0-5 /HPF Invalid Interpretation Code None Seen AO Auto Urine SS PREGUon 02-09-2024 HCG ( test) Ql (U) Negative Normal [facility] ([place]) Comment on above: Performed By: #### U AMICAO, UA, PREGU #### [place] [address] test (u) int Not detected Invalid Interpretation Code [facility] ([place]) Comment on above: Performed By: #### U AMICAO, UA, PREGU #### [place] [address] UAon 02-09-2024 Color (U) Yellow Normal [facility] ([place]) Comment on above: Performed By: #### A DIFF, CBCDORENE MDW #### [place] [address] Glucose (U) [Mass/Vol] Negative Normal Negative [facility] ([place]) Comment on above: Performed By: #### A DIFF, CBCDORENE MDW #### [place] [address] [address] Ketones Ql (U) Negative Normal Negative [facility] ([place]) Comment on above: Performed By: #### A DIFF, CBCDORENE MDW #### [place] [address] [address] UA Appear Turbid Abnormal Clear [facility] ([place]) Comment on above: Performed By: #### A DIFF, DORENE BILLINGS MDW #### [place] [address] [address] UA Blood Large Abnormal Negative [facility] ([place]) Comment on above: Performed By: #### A DIFF, CBCDORENE MDW #### [place] [address] [address] UA Leuk Est Negative Normal Negative [facility] ([place]) Comment on above: Performed By: #### A MANUELITO BOWLES ANEU, MDW #### [address] [address] UA Nitrite Negative Normal Negative [facility] ([place]) Comment on above: Performed By: #### A MANUELITO BOWLES ANEU, MDW #### [address] [address] UA pH 7.0 Normal 5.0 - 8.0 [facility] ([place]) Comment on above: Performed By: #### A MANUELITO BOWLES ANEU, MDW #### [place] [address] [address] UA Protein Negative Normal Negative [facility] ([place]) Comment on above: Performed By: #### A MANUELITO BOWLES ANEU, MDW #### [address] [address] UA Spec Grav 1.020 Normal 1.015-1.025 [facility] ([place]) Comment on above: Performed By: #### A MANUELITO BOWLES ANEU, MDW #### [address] [address] UA Specimen Type Void Normal [facility] ([place]) Comment on above: Performed By: #### A MANUELITO BOWLES ANEU, MDW #### [address] [address] UA Urobilinogen 0.2 E.U./dL Normal 0.2-1.0 [facility] ([place]) Comment on above: Performed By: #### A MANUELITO BOWLES ANEU, MDW #### [place] [address] [address] Urobilinogen (U) [Mass/Vol] Negative Normal Negative [facility] ([place]) Comment on above: Performed By: #### A MANUELITO BOWLES ANEU, MDW #### [place] [address] [address] [address] ABDOMEN/PELVIS W/O CONTRA STojanes 01-28-2024 CT ABDOMEN/PELVIS W/O CONTRAST ORIGINAL EXAMINATION: CT OF THE ABDOMEN AND PELVIS WITHOUT CONTRAST 01/28/2024 10:36 pm TECHNIQUE: CT of the abdomen and pelvis was performed without the administration of intravenous contrast. Multiplanar reformatted images are provided for review. Automated exposure control, iterative reconstruction, and/or weight based adjustment of the mA/kV was utilized to reduce the radiation dose to as low as reasonably achievable. COMPARISON: None. HISTORY: ORDERING SYSTEM PROVIDED HISTORY: Reason for Exam: r flank pain FINDINGS: Lower Chest: No focal consolidation. Organs: Cholecystectomy clips. Nonobstructing 0.4 cm nephrolithiasis in the left inferior pole of the kidney. Question punctate stone in the right mid ureter. No hydronephrosis or hydroureter. Otherwise unremarkable. GI/Bowel: Unremarkable. Pelvis: Unremarkable. Peritoneum/Retroperitoneum: Unremarkable. Bones/Soft Tissues: Anterior abdominal wall postsurgical changes. No acute osseous abnormality. IMPRESSION: 0.4 cm nonobstructing nephrolithiasis in the left inferior pole of the kidney. Question punctate stone in the right mid ureter. No hydronephrosis or hydroureter. Interpreted by: Dequan Richard Preliminary Report By: Dequan Richard Electronically signed By Dequan Richard Dictated Date: 01/28/2024 10:46:48 PM Prelim Date: 01/28/2024 10:50:14 PM Sign Date: 01/28/2024 10:50:14 PM Ordering Provider: ROC Edwards [facility] ([place]) LABORATORYOrdered By: Prabhjot Nicole on 01-28-2024 Appearance (U) Clear (01/28/24 8:45 PM) Normal Clear AO Auto Urine SS Bilirubin Ql (U) Negative (01/28/24 8:45 PM) Normal Negative AO Auto Urine SS Color (U) Yellow (01/28/24 8:45 PM) Normal AO Auto Urine SS Glucose Test strip (U) [Mass/Vol] Negative Normal Negative AO Auto Urine SS HCG ( test) Ql Negative (01/28/24 8:45 PM) Normal AO Manual Urine SS Hemoglobin Auto test strip (U) [Mass/Vol] Negative (01/28/24 8:45 PM) Normal Negative AO Auto Urine SS Ketones Ql (U) Negative Normal Negative AO Auto Urine SS test (u) int Not detected Invalid Interpretation Code AO Manual Urine SS UA Leuk Est Negative (01/28/24 8:45 PM) Normal Negative AO Auto Urine SS UA Nitrite Negative (01/28/24 8:45 PM) Normal Negative AO Auto Urine SS UA pH 5.5 (01/28/24 8:45 PM) Normal 5.0 - 8.0 AO Auto Urine SS UA Protein Negative Normal Negative AO Auto Urine SS UA Spec Grav >=1.030 *ABN* (01/28/24 8:45 PM) Invalid Interpretation Code 1.015-1.025 AO Auto Urine SS UA Specimen Type Clean Catch (01/28/24 8:45 PM) Normal AO Auto Urine SS UA Urobilinogen 0.2 E.U./dL Normal 0.2-1.0 AO Auto Urine SS PREGUon 01-28-2024 HCG ( test) Ql (U) Negative Normal [facility] ([place]) Comment on above: Performed By: #### A MANUELITO BOWLES ANEU, MDW #### [address] [address] test (u) int Not detected Invalid Interpretation Code [facility] ([place]) Comment on above: Performed By: #### A MANUELITO BOWLES ANEU, MDW #### [address] [address] UAon 01-28-2024 Color (U) Yellow Normal [facility] ([place]) Comment on above: Performed By: #### A MANUELITO BOWLES ANEU, MDW #### [address] [address] Glucose (U) [Mass/Vol] Negative Normal Negative [facility] ([place]) Comment on above: Performed By: #### A MANUELITO BOWLES ANEU, MDW #### [address] [address] Ketones Ql (U) Negative Normal Negative [facility] ([place]) Comment on above: Performed By: #### A MANUELITO BOWLES ANEU, MDW #### [address] [address] UA Appear Clear Normal Clear [facility] ([place]) Comment on above: Performed By: #### A DIFFMANUELITO ANEU, MDW #### [address] [address] UA Blood Negative Normal Negative [facility] ([place]) Comment on above: Performed By: #### A DIFF, DORENE BILLINGS MDW #### [address] [address] UA Leuk Est Negative Normal Negative [facility] ([place]) Comment on above: Performed By: #### A DIFF, CBCDORENE MDW #### [address] [address] UA Nitrite Negative Normal Negative [facility] ([place]) Comment on above: Performed By: #### A DIFF, DORENE BILLINGS MDW #### [address] [address] UA pH 5.5 Normal 5.0 - 8.0 [facility] ([place]) Comment on above: Performed By: #### A DIFF, DORENE BILLINGS MDW #### [address] [address] UA Protein Negative Normal Negative [facility] ([place]) Comment on above: Performed By: #### A DIFF, DORENE BILLINGS MDW #### [address] [address] UA Spec Grav >=1.030 Abnormal 1.015-1.025 [facility] ([place]) Comment on above: Performed By: #### A DIFF, DORENE BILLINGS MDW #### [address] [address] UA Specimen Type Clean Catch Normal [facility] ([place]) Comment on above: Performed By: #### A DIFF, CBCDORENE MDW #### [address] [address] UA Urobilinogen 0.2 E.U./dL Normal 0.2-1.0 [facility] ([place]) Comment on above: Performed By: #### A DIFF, CBCDORENE MDW #### [address] [address] Urobilinogen (U) [Mass/Vol] Negative Normal Negative [facility] ([place]) Comment on above: Performed By: #### A MANUELITO BOWLES ANEU, MDW #### [place] [address] [address] OVon 01-23-2024 CNOV Office Visit (UCWSTR ) SONDRA BLANCO ([id number]) 1985 F Date Time Provider Department 01/23/24 4:15 PM ADWOA MOSLEY [facility] During your visit today, we recorded the following information about you: Temperature Pulse Respiration Blood pressure 98.7 degrees 66/minute 18/minute 157/99 Weight 108.6 kg Adwoa Mosley APRN.DIE STORAGE CLERK 01/23/2024 4:39 PM Signed Subjective HPI HPI Sondra Blanco is a 38 year old female who presents today for CC of left ear pain, loss of hearing. Patient just left ENT. Where she had cerumen removed, heard a pop, then lost hearing and had pain. Has tubes in bilat ears .Patient presents with: Ear Pain: L ear pain x 1 day PAST MEDICAL HISTORY Diagnosis Date Adjustment disorder [...] ORDER ALLERGIES Tape [Adhesive Tape (Rosins)] MEDICATIONS venlafaxine ER (EFFEXOR XR) 75 mg 24 hr capsule Take 1 capsule by mouth every afternoon. Miscellaneous Medical Supply (BLOOD PRESSURE CUFF) 1 Each once daily. acetaZOLAMIDE SR (DIAMOX SEQUELS) 500 mg capsule [...] Yes Comment: very rare Drug use: No Review of Systems Constitutional: Negative for fever. HENT: Positive for ear pain and hearing loss. Negative for congestion, nosebleeds, sore throat and tinnitus. Respiratory: Negative for cough, shortness of breath and wheezing. Musculoskeletal: Negative for neck pain. Objective Blood pressure 157/99, pulse 66, temperature 37.1 ?C (98.7 ?F), resp. rate 18, weight 108.6 kg (239 lb 6.7 oz), last menstrual period 12/13/2023, SpO2 99%. Physical Exam Constitutional: General: She is not in acute distress. Appearance: She is not toxic-appearing or diaphoretic. HENT: Head: Normocephalic and atraumatic. Right Ear: Hearing, tympanic membrane, ear canal and external ear normal. A PE tube is present. Left Ear: Swelling present. No laceration or drainage. A PE tube is present. Pulmonary: Effort: Pulmonary effort is normal. No accessory muscle usage or respiratory distress. Neurological: Mental Status: She is alert and oriented to person, place, and time. ASSESSMENT/PLAN: 1. Left ear pain - ICD9: 388.70, ICD10: H92.02 This pain started after an ear procedure today I advised patient to return to ENT May also have slight OE, nothing ordered as she is to return to ENT. Adwoa Mosley APRN.DIE STORAGE CLERK Allergies As of Date: 01/23/2024 Noted Allergy Reaction TAPE (ADHESIVE TAPE (ROSINS)) 07/18/2013 2 - Rash Comments: EKG tape pleitez skin- other tape gives patient rashes Date Reviewed: 01/23/2024 Reviewed by: Radha Tobin MA - Fully Assessed Reason for Visit: Ear Pain [817] Cmt: L ear pain x 1 day Primary Visit Diagnosis:Left ear pain [H92.02] Prescriptions as of 01/23/2024 - venlafaxine ER (EFFEXOR XR) 75 mg 24 hr capsule Take 1 capsule by mouth every afternoon. - Miscellaneous Medical Supply (BLOOD PRESSURE CUFF) 1 Each once daily. - acetaZOLAMIDE SR (DIAMOX SEQUELS) 500 mg capsule Take 1 capsule by mouth twice daily. - ibuprofen (MOTRIN) 600 mg tablet Take 600 mg by mouth every 6 hours as needed. 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 Normal [facility] [place] CNOVon 01-08-2024 CNOV Office Visit (PODIWS ) SONDRA BLANCO ([id number]) 1985 F Date Time Provider Department 01/08/24 2:45 PM AYLEEN PICHARDO During your visit today, we recorded the following information about you: Thi Haynes LPN 01/09/2024 7:46 AM Signed AMB ROOMING INTAKE FLOWSHEET DATA Pain Pain Level: 5 Description: Throbbing Duration Amount of Time: 5 Duration Units: Weeks Frequency: Continuous Intervention/Comfort measure: Relaxation, Reposition, Medication Patient presents with: Left Ankle - New, Swelling, Pain Thi HaynesANISA Ayleen Pichardo 01/09/2024 7:46 AM Signed Consultation requested by Dr. Hunter for an opinion regarding left ankle pain. My final recommendations will be communicated back to the requesting physician by way of shared Medical record or letter to requesting physician via US mail. Initial Podiatric Office Visit: Chief Complaint: This 38 year old female who presents with chief complaint:left anlke sprain HPI Patient presents to clinic for evaluation of left ankle. States that about 5 weeks ago, she fell and rolled her left ankle. She developed pain so she went to the ER ([facility] She was recommended air cast, rest and nsaid. Pain failed to improve. Patient later presented to urgent care a few weeks later. She was recmmended the same treatment She continues to use the air cast but only off and on. She states the air cast is hard to wear with a work boot. Patient is currently taking ibuprofen but that does not really help Patient states the pain is mostly along the left ankle and plantar arch. PAIN EVALUATION 01/08/2024 1448 Pain Level: 5 Description: Throbbing Duration Amount of Time: 5 Duration Units: Weeks Frequency: Continuous Intervention/Comfort measure: Relaxation;Reposition;Medic ation No results found for: HBA1C PCP: Kemar Mantilla MD PAST MEDICAL HISTORY Diagnosis Date Adjustment disorder with depressed mood Ectopic 12/2022 IIH (idiopathic intracranial hypertension) PMH - PAST MEDICAL HISTORY OF 11/10/93-color vision normal hypertension PTSD (post-traumatic stress disorder) Unequal pupils left > right Current Outpatient Medications Medication Sig venlafaxine ER (EFFEXOR XR) 75 mg 24 hr capsule Take 1 capsule by mouth every afternoon. Miscellaneous Medical Supply (BLOOD PRESSURE CUFF) 1 Each once daily. ibuprofen (MOTRIN) 600 mg tablet Take 600 mg by mouth every 6 hours as needed. acetaZOLAMIDE SR (DIAMOX SEQUELS) 500 mg capsule Take 1 capsule by mouth twice daily. No current facility-administered medications for this visit. ALLERGIES Allergen Reactions Tape [Adhesive Tape* Rash EKG tape pleitez skin- other tape gives patient rashes PAST SURGICAL HISTORY Procedure Laterality Date CHOLECYSTECTOMY 2010 COLONOSCOPY FLX DX W/COLLJ SPEC WHEN PFRMD 07/29/2018 Colonoscopy ECTOPIC - TREATMENT 02/12/2023 ESOPHAGOGASTRODUODENOSCOPY TRANSORAL DIAGNOSTIC 07/29/2018 EGD MYRINGOTOMY ASPIRAND/EUSTACHIAN TUBE NFLTJ ANES 08/31/2015 Myringotomy/tubes- right ear PAST SURGICAL HISTORY OF tubes in ears REPAIR UMBILICAL HERNIA 2011 UNSPECIFIED ORAL SURGERY PROCEDURE, BY REPORT 4 teeth pulled WHI DELIVERY SCHEDULING ORDER FAMILY HISTORY Adopted: Yes Problem Relation Age of Onset Cancer Maternal Aunt Social History Tobacco Use Smoking status: Never Smokeless tobacco: Never Vaping Use Vaping Use: Never used Substance Use Topics Alcohol use: Yes Comment: very rare Drug use: No REVIEW OF SYSTEMS GENERAL: Negative for Malaise, significant weight loss, fever RESPIRATORY: Negative for cough, wheezing and shortness of breath CARDIOVASCULAR: Negative for chest pain, leg swelling and palpitations GI: Negative for abdominal discomfort, blood in stools or black stools and change in bowel habits : Negative for dysuria, frequency and incontinence MUSCULOSKELETAL: Negative for joint pain or swelling, back pain, and muscle pain. SKIN: Negative for lesions, rash, and itching. HEMATOLOGY/LYMPHOLOGY Negative for prolonged bleeding, bruising easily, and swollen nodes. ENDOCRINE: Negative for cold or heat intolerance, polyuria, polydipsia and goiter. NEURO: negative Physical Exam: Constitutional: Pt is a well developed 38 year old female who is alert, oriented and cooperative Eyes: Following during examination. No redness or drainage. Respiratory: RR normal and nonlabored. Even breathing. No evidence of distress or shortness of breath. Psychology: Patient is engaged during conversation. Normal affect and mood. Does not appear depressed or anxious during encounter. Vascular: Dorsalis pedis and posterior tibial pulses palpable as b/l Capillary Fill time < 5 seconds to digits 1-5 b/l Skin temperature warm to warm proximal to distal b/l Hair growth present (more content not included)... Normal [facility] [place] CNOVon 12-13-2023 CNOV Office Visit (UCWSTR ) SONDRA BLANCO ([id number]) 1985 F Date Time Provider Department 12/13/23 4:15 PM DANIELLE HUNTER UCWSTR During your visit today, we recorded the following information about you: Temperature Pulse Respiration Blood pressure 97.5 degrees 83/minute 18/minute 146/96 Weight Last Period 104 kg 12/13/23 Danielle Hunter, BEKAH.DIE STORAGE CLERK 12/13/2023 5:32 PM Signed This note was created using Burst Mediariter. Subjective Sondra Blanco is a 38 year old female. 38 year old female with PMH migraine, HTN, depression and PTSD presents for musculoskeletal problems. Acute onset 3 weeks ago Endorses she stepped out of a feed bunk, that was unlevel States she ultimately fell, and felt a crack in left ankle +pain +ecchymosis +swelling Has been weight bearing,. Endorses pain is waxing and waning I am fine one minute and the next I can barely walk She was seen at [facility]. I don't feel like they did a good xray and didn't really evaluate me States she was recommended to wear an air cast, but has not been wearing. Presents today requesting re examination and xrays The history is provided by the patient. No world language teacher was used. Trauma This is a new problem. The current episode started 1 to 4 weeks ago. The problem occurs constantly. The problem has been unchanged. Pertinent negatives include no abdominal pain, anorexia, arthralgias, change in bowel habit, chest pain, chills, congestion, coughing, diaphoresis, fatigue, fever, headaches, joint swelling, myalgias, nausea, neck pain, numbness, rash, sore throat, swollen glands, urinary symptoms, vertigo, visual change, vomiting or weakness. The symptoms are aggravated by walking, twisting and standing. She has tried rest and position changes for the symptoms. The treatment provided no relief. PAST MEDICAL HISTORY Diagnosis Date Adjustment disorder [...] ORDER ALLERGIES Tape [Adhesive Tape (Rosins)] MEDICATIONS Miscellaneous Medical Supply (BLOOD PRESSURE CUFF) 1 Each once daily. acetaZOLAMIDE SR (DIAMOX SEQUELS) 500 mg capsule Take 1 capsule by mouth twice daily. ibuprofen (MOTRIN) 600 mg tablet Take 600 mg by mouth every 6 hours as needed. lisinopril (ZESTRIL) 10 mg tablet Take 1 tablet by mouth once daily. (Patient not taking: Reported on 12/13/2023) FAMILY HISTORY Adopted: Yes Problem Relation Age of Onset Cancer Maternal Aunt Social History Tobacco Use Smoking status: Never Smokeless tobacco: Never Vaping Use Vaping Use: Never used Substance Use Topics Alcohol use: Yes Comment: very rare Drug use: No Review of Systems Constitutional: Negative for chills, diaphoresis, fatigue and fever. HENT: Negative for congestion and sore throat. Eyes: Negative for pain, discharge, redness and itching. Respiratory: Negative for apnea, cough and chest tightness. Cardiovascular: Negative for chest pain, palpitations and leg swelling. Gastrointestinal: Negative for abdominal pain, anorexia, change in bowel habit, nausea and vomiting. Musculoskeletal: Negative for arthralgias, joint swelling, myalgias and neck pain. Left ankle and left foot Skin: Negative for color change, pallor and rash. Allergic/Immunologic: Negative for environmental allergies, food allergies and immunocompromised state. Neurological: Negative for dizziness, vertigo, facial asymmetry, weakness, light-headedness, numbness and headaches. Hematological: Negative for adenopathy. Does not bruise/bleed easily. Psychiatric/Behavioral: Negative for agitation and behavioral problems. Objective BP 146/96 Pulse 83 Temp 36.4 ?C (97.5 ?F) Resp 18 Wt 104 kg (229 lb 4.5 oz) LMP 12/13/2023 (Exact Date) SpO2 100% No BMI 37.01 kg/m? Physical Exam Vitals and nursing note reviewed. Constitutional: General: She is not in acute distress. Appearance: Normal appearance. She is normal weight. She is not ill-appearing, toxic-appearing or diaphoretic. HENT: Head: Normocephalic and atraumatic. Right Ear: Ear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 mL/min >60 [place], [place] Comment on above: Source- MDRD equatio n with creatinine calibration to IDMS(NKDEP) eGFR not recommended for drug dose adjustment GFR/1.73 sq M predicted among blacks MDRD (S/P/Bld) [Vol rate/Area] mL/min/{1.73_m2} >60 mL/min [place] Glucose [Mass/Vol] 86 mg/dL 70 - 100 mg/dL [place] Interpretation and review of laboratory results Abnormal [place] Potassium [Moles/Vol] 3.8 mmol/L 3.5 - 5.1 mmol/L [place] Sodium [Moles/Vol] 140 mmol/L 135 - 145 mmol/L [place] Urea nitrogen [Mass/Vol] 29 mg/dL High 7 - 20 mg/dL [place] CBC auto differentialon 05-11 Absolute Baso # 0.1 10*3/uL 0 - 0.2 10*3/uL [place] Absolute Neut # 6.1 10*3/uL 1.8 - 7 10*3/uL [place] Basophils/100 WBC (Bld) 0.8 % 0 - 2 % [place] Eosinophils (Bld) [#/Vol] 0.1 10*3/uL 0 - 0.5 10*3/uL [place] Eosinophils/100 WBC (Bld) 1.1 % 1 - 6 % [place] Erythrocyte distribution width (RBC) [Ratio] 13.4 % 11.5 - 14.5 % [place] Granulocytes/100 WBC (Bld) 56.8 % 40 - 80 % [place] Hematocrit (Bld) [Volume fraction] 42.9 % 35 - 47 % [place] Hemoglobin (Bld) [Mass/Vol] 14.7 g/dL 11.7 - 16 g/dL [place] Interpretation and review of laboratory results Abnormal [place] Lymphocytes (Bld) [#/Vol] 3.5 10*3/uL 1 - 4.3 10*3/uL [place] Lymphocytes/100 WBC (Bld) 32.8 % 20 - 40 % [place] MCH (RBC) [Entitic mass] 28.5 pg 26 - 34 pg [place] MCHC (RBC) [Mass/Vol] 34.3 % 32 - 36 % [place] MCV (RBC) [Entitic vol] 83.2 fL 79 - 98 fL [place] Monocytes (Bld) [#/Vol] 0.9 10*3/uL High 0 - 0.8 10*3/uL [place] Monocytes/100 WBC (Bld) 8.5 % 2 - 10 % [place] Platelet mean volume (Bld) [Entitic vol] 7.7 fL 7.4 - 10.4 fL [place] Platelets (Bld) [#/Vol] 294 10*3/uL 140 - 440 10*3/uL [place] RBC (Bld) [#/Vol] 5.15 10*6/uL 3.8 - 5.2 10*6/uL [place] WBC (Bld) [#/Vol] 10.7 10*3/uL 3.6 - 10.7 10*3/uL [place] Test Performed by [facility], [address] [place] [address] [place], [place] Complete Urinalysison 2018 Appearance (U) Clear Normal [facility] Comment on above: Result Comment: Refe rence Range: Clear Performed By: #### P T, CMP3M, HEMDF, MG3 #### [address] [place] [address] Bilirubin,Urine Negative Normal [facility] Comment on above: Result Comment: Refe rence Range: Negative Performed By: #### P T, CMP3M, HEMDF, MG3 #### [facility] [address] [place] [address] Color (U) Light-Yellow Normal [facility] Comment on above: Result Comment: Refe rence Range: Lt. Yellow Performed By: #### P T, CMP3M, HEMDF, MG3 #### [address] [place], [place] Glucose Ql (U) Normal Normal [facility] Comment on above: Result Comment: Refe rence Range: Normal (<70) Performed By: #### P T, CMP3M, HEMDF, MG3 #### [address] [place], [place] Ketone,Urine Negative Normal [facility] Comment on above: Result Comment: Refe rence Range: Negative Performed By: #### P T, CMP3M, HEMDF, MG3 #### [address] [place], [place] Leukocytes,Urine Negative Normal [facility] Comment on above: Result Comment: Refe rence Range: Negative Performed By: #### P T, CMP3M, HEMDF, MG3 #### [address] [place], [place] Nitrites,Urine Negative Normal [facility] Comment on above: Result Comment: Refe rence Range: Negative Performed By: #### P T, CMP3M, HEMDF, MG3 #### [address] [place], [place] Occult Blood,Urine Negative Normal [facility] Comment on above: Result Comment: Refe rence Range: Negative Performed By: #### P T, CMP3M, HEMDF, MG3 #### [address] [place], [place] pH (U) 5.5 Normal 5.0-8.0 [facility] Comment on above: Performed By: #### P T, CMP3M, HEMDF, MG3 #### [address] [place], [place] Protein (U) [Mass/Vol] Negative Normal [facility] Comment on above: Result Comment: Refe rence Range: Negative Performed By: #### P T, CMP3M, HEMDF, MG3 #### [address] [place], [place] Specific [place],Urine 1.027 Normal 1.005-1.030 [facility] Comment on above: Performed By: #### P T, CMP3M, HEMDF, MG3 #### [address] Urobilinogen,Urine Normal Normal [facility] Comment on above: Result Comment: Refe rence Range: Normal (0-1) Performed By: #### P T, CMP3M, HEMDF, MG3 #### [address] Hemogram w/ Autodiffon 05-25 Abs Baso Cnt 0.1 10*3/uL Normal 0.0-0.2 [facility] Comment on above: Performed By: #### P T, CMP3M, HEMDF, MG3 #### [address] Abs Neutrophile Cnt 6.1 10*3/uL Normal 1.8-7.0 [facility] Comment on above: Performed By: #### P T, CMP3M, HEMDF, MG3 #### [address] Basophils/100 WBC (Bld) 0.8 % Normal 0.0-2.0 [facility] Comment on above: Performed By: #### P T, CMP3M, HEMDF, MG3 #### [address] Eosinophils (Bld) [#/Vol] 0.1 10*3/uL Normal 0.0-0.5 [facility] Comment on above: Performed By: #### P T, CMP3M, HEMDF, MG3 #### [address] Eosinophils/100 WBC (Bld) 1.1 % Normal 1.0-6.0 [facility] Comment on above: Performed By: #### P T, CMP3M, HEMDF, MG3 #### [address] [address] [place], [place] Erythrocyte distribution width (RBC) [Ratio] 13.4 % Normal 11.5-14.5 [facility] Comment on above: Performed By: #### P T, CMP3M, HEMDF, MG3 #### [address] [place], [place] Granulocytes/100 WBC (Bld) 56.8 % Normal 40.0-80.0 [facility] Comment on above: Performed By: #### P T, CMP3M, HEMDF, MG3 #### [address] [place] Hematocrit (Bld) [Volume fraction] 42.9 % Normal 35.0-47.0 [facility] Comment on above: Performed By: #### P T, CMP3M, HEMDF, MG3 #### [address] [place] Hemoglobin (Bld) [Mass/Vol] 14.7 g/dL Normal 11.7-16.0 [facility] Comment on above: Performed By: #### P T, CMP3M, HEMDF, MG3 #### [address] [place] Lymphocytes (Bld) [#/Vol] 3.5 10*3/uL Normal 1.0-4.3 [facility] Comment on above: Performed By: #### P T, CMP3M, HEMDF, MG3 #### [address] [place] Lymphocytes/100 WBC (Bld) 32.8 % Normal 20.0-40.0 [facility] Comment on above: Performed By: #### P T, CMP3M, HEMDF, MG3 #### [address] MCH (RBC) [Entitic mass] 28.5 pg Normal 26.0-34.0 [facility] Comment on above: Performed By: #### P T, CMP3M, HEMDF, MG3 #### [address] [place] MCHC (RBC) [Mass/Vol] 34.3 % Normal 32.0-36.0 [facility] Comment on above: Performed By: #### P T, CMP3M, HEMDF, MG3 #### [facility] [address] [place], [place] MCV (RBC) [Entitic vol] 83.2 fL Normal 79.0-98.0 [facility] Comment on above: Performed By: #### P T, CMP3M, HEMDF, MG3 #### [address] [place], [place] Monocytes (Bld) [#/Vol] 0.9 10*3/uL High 0.0-0.8 [facility] Comment on above: Performed By: #### P T, CMP3M, HEMDF, MG3 #### [address] [place] Monocytes/100 WBC (Bld) 8.5 % Normal 2.0-10.0 [facility] Comment on above: Performed By: #### P T, CMP3M, HEMDF, MG3 #### [address] [place] Platelet mean volume (Bld) [Entitic vol] 7.7 fL Normal 7.4-10.4 [facility] Comment on above: Performed By: #### P T, CMP3M, HEMDF, MG3 #### [address] [place] Platelets (Bld) [#/Vol] 294 10*3/uL Normal 140-440 [facility] Comment on above: Performed By: #### P T, CMP3M, HEMDF, MG3 #### [address] [place], [place] RBC (Bld) [#/Vol] 5.15 10*6/uL Normal 3.80-5.20 [facility] Comment on above: Performed By: #### P T, CMP3M, HEMDF, MG3 #### [address] [place] [address] WBC (Bld) [#/Vol] 10.7 10*3/uL Normal 3.6-10.7 [facility] Comment on above: Performed By: #### P T, CMP3M, HEMDF, MG3 #### [facility] [address] [place] [address] Magnesiumon 05-25-2019 Magnesium [Mass/Vol] 2.1 mg/dL Normal 1.6-2.3 [facility] Comment on above: Performed By: #### P T, CMP3M, HEMDF, MG3 #### [address] [place] [address] Magnesium [Mass/Vol] 2.1 mg/dL 1.6 - 2 .3 mg/dL [place], [place] Otheron 05-25-2019 Test Performed by [facility], [address] [place] [address] [place], [place] Basic Metabolic Panelon 05-11 Anion gap [Moles/Vol] 13 Normal [facility] Comment on above: Performed By: #### P T, CMP3M, HEMDF, MG3 #### [address] [place], [place] Calcium [Mass/Vol] 9.7 mg/dL Normal 8.4-10.4 [facility] Comment on above: Performed By: #### P T, CMP3M, HEMDF, MG3 #### [address] [place] CO2 [Moles/Vol] 15 mmol/L Low 22-30 [facility] Comment on above: Performed By: #### P T, CMP3M, HEMDF, MG3 #### [address] [place], [place] Glucose [Mass/Vol] 109 mg/dL High 70-100 [facility] Comment on above: Result Comment: Mode rately hemolysed, interpret with caution. Performed By: #### P T, CMP3M, HEMDF, MG3 #### [address] [place] Urea nitrogen [Mass/Vol] 26 mg/dL High 7-20 [facility] Comment on above: Performed By: #### P T, CMP3M, HEMDF, MG3 #### [address] [place] Creatinine [Mass/Vol] 1.06 mg/dL Normal 0.52-1.25 [facility] Comment on above: Performed By: #### P T, CMP3M, HEMDF, MG3 #### [address] [place] GFR/1.73 sq M predicted among blacks MDRD (S/P/Bld) [Vol rate/Area] mL/min/{1.73_m2} Normal >60 [facility] Comment on above: Performed By: #### P T, CMP3M, HEMDF, MG3 #### [address] [place] GFR/1.73 sq M predicted among non-blacks MDRD (S/P/Bld) [Vol rate/Area] mL/min/{1.73_m2} Normal >60 [facility] Comment on above: Result Comment: Sour ce- MDRD equation with creatinine calibration to IDMS(NKDEP) eGFR not recommended for drug dose adjustment Performed By: #### P T, CMP3M, HEMDF, MG3 #### [address] [place] Chloride [Moles/Vol] 112 mmol/L High 98-107 [facility] Comment on above: Performed By: #### P T, CMP3M, HEMDF, MG3 #### [address] [place], [place] Potassium [Moles/Vol] 5.1 mmol/L Normal 3.5-5.1 [facility] Comment on above: Result Comment: Mode rately hemolysed, interpret with caution. Performed By: #### P T, CMP3M, HEMDF, MG3 #### [address] [place], [place] Sodium [Moles/Vol] 140 mmol/L Normal 135-145 [facility] Comment on above: Performed By: #### P T, CMP3M, HEMDF, MG3 #### [facility] [address] [place] [address] Basic Metabolic Panel w/ Ref levon to MGon 05-24-2019 Anion gap [Moles/Vol] 13 mmol/L [place] Calcium [Mass/Vol] 9.7 mg/dL 8.4 - 10. 4 mg/dL [place] Chloride [Moles/Vol] 112 mmol/L High 98 - 10 7 mmol/L [place] CO2 [Moles/Vol] 15 mmol/L Low 22 - 30 mmol/L [place] Creatinine [Mass/Vol] 1.06 mg/dL 0.52 - 1.25 mg/dL [place] EGFR IF NonAfrican [place] >60.0 >60 mL/min [place] Comment on above: Source- MDRD equatio n with creatinine calibration to IDMS(NKDEP) eGFR not recommended for drug dose adjustment GFR/1.73 sq M predicted among blacks MDRD (S/P/Bld) [Vol rate/Area] mL/min/{1.73_m2} >60 mL/min [place] Glucose [Mass/Vol] 109 mg/dL High 70 - 100 mg/dL [place] Comment on above: Moderately hemolysed , interpret with caution. Potassium [Moles/Vol] 5.1 mmol/L 3.5 - 5.1 mmol/L [place] Comment on above: Moderately hemolysed , interpret with caution. Sodium [Moles/Vol] 140 mmol/L 135 - 145 mmol/L [place] Urea nitrogen [Mass/Vol] 26 mg/dL High 7 - 20 mg/dL [place] Magnesiumon 05-24-2019 Magnesium [Mass/Vol] 2.5 mg/dL High 1.6-2.3 [facility] Comment on above: Result Comment: Mode rately hemolysed, interpret with caution. Performed By: #### P T, CMP3M, HEMDF, MG3 #### [address] [address] Magnesium [Mass/Vol] 2.5 mg/dL High 1.6 - 2 .3 mg/dL [place], [place] Comment on above: Moderately hemolysed , interpret with caution. Otheron 05-24-2019 Interpretation and review of laboratory results Abnormal [place] Test Performed by [facility], [address] [place] [address] [place] Urinalysison 05-24-2019 Appearance (U) Clear [place] Comment on above: Reference Range: Sean ar Bilirubin Urine Negative mg/dL [place] Comment on above: Reference Range: Neg ative Color (U) Light-Yellow [place] Comment on above: Reference Range: Lt. Yellow Glucose, Ur Normal mg/dL [place] Comment on above: Reference Range: Nor mal (<70) Ketones Ql (U) Negative mg/dL [place] Comment on above: Reference Range: Neg ative LEUKOCYTES, UA Negative Min/uL [place] Comment on above: Reference Range: Neg ative Nitrite, Urine Negative [place] Comment on above: Reference Range: Neg ative Occult Blood,Urine Negative mg/dL [place] Comment on above: Reference Range: Neg ative pH (U) 5.5 [pH] [place] Protein (U) [Mass/Vol] Negative mg/dL [place] Comment on above: Reference Range: Neg ative Specific [place], Urine 1.027 [place] Urobilinogen, Urine Normal mg/dL [place] Comment on above: Reference Range: Nor mal (0-1) Test Performed by [facility], [address] [place] [id number] [place] [address] Add On Lab Teston 05-23-2019 Sodium [Moles/Vol] Accepted [place] Comment on above: Specimen available & acceptable for analysis. Test Performed by [facility], [address] [place] [address] [place] Add on test from HISon 05-23 Add on test from HIS Accepted Normal [facility] Comment on above: Result Comment: Spec imen available & acceptable for analysis. Performed By: #### P T, CMP3M, HEMDF, MG3 #### [facility] [address] [place] [address] Basic Metabolic Panelon 05-11 Calcium [Mass/Vol] 9.4 mg/dL Normal 8.4-10.4 [facility] Comment on above: Performed By: #### P T, CMP3M, HEMDF, MG3 #### [place] [address] [place], [place] Glucose [Mass/Vol] 123 mg/dL High 70-100 [facility] Comment on above: Performed By: #### P T, CMP3M, HEMDF, MG3 #### [place] [address] [place], [place] Anion gap [Moles/Vol] 12 Normal [facility] Comment on above: Performed By: #### P T, CMP3M, HEMDF, MG3 #### [place] [address] [place], [place] CO2 [Moles/Vol] 20 mmol/L Low 22-30 [facility] Comment on above: Performed By: #### P T, CMP3M, HEMDF, MG3 #### [place] [address] [place], [place] Creatinine [Mass/Vol] 0.75 mg/dL Normal 0.52-1.25 [facility] Comment on above: Performed By: #### P T, CMP3M, HEMDF, MG3 #### [place] [address] [place], [place] GFR/1.73 sq M predicted among blacks MDRD (S/P/Bld) [Vol rate/Area] mL/min/{1.73_m2} Normal >60 [facility] Comment on above: Performed By: #### P T, CMP3M, HEMDF, MG3 #### [place] [address] [place], [place] GFR/1.73 sq M predicted among non-blacks MDRD (S/P/Bld) [Vol rate/Area] mL/min/{1.73_m2} Normal >60 [facility] Comment on above: Result Comment: Sour ce- MDRD equation with creatinine calibration to IDMS(NKDEP) eGFR not recommended for drug dose adjustment Performed By: #### P T, CMP3M, HEMDF, MG3 #### [place] [address] [place], [place] Urea nitrogen [Mass/Vol] 10 mg/dL Normal 7-20 [facility] Comment on above: Performed By: #### P T, CMP3M, HEMDF, MG3 #### [place] [address] [place], [place] Potassium [Moles/Vol] 4.0 mmol/L Normal 3.5-5.1 [facility] Comment on above: Performed By: #### P T, CMP3M, HEMDF, MG3 #### [place] [address] [place], [place] Chloride [Moles/Vol] 108 mmol/L High 98-107 [facility] Comment on above: Performed By: #### P T, CMP3M, HEMDF, MG3 #### [place] [address] [place], [place] Sodium [Moles/Vol] 139 mmol/L Normal 135-145 [facility] Comment on above: Performed By: #### P T, CMP3M, HEMDF, MG3 #### [place] [address] [place], [place] Basic Metabolic Panel w/ Ref levon to MGon 05-23-2019 Anion gap [Moles/Vol] 12 mmol/L [facility], [place] Calcium [Mass/Vol] 9.4 mg/dL 8.4 - 10. 4 mg/dL [facility] [place] Chloride [Moles/Vol] 108 mmol/L High 98 - 10 7 mmol/L [facility] [place] CO2 [Moles/Vol] 20 mmol/L Low 22 - 30 mmol/L [facility] [place] Creatinine [Mass/Vol] 0.75 mg/dL 0.52 - 1.25 mg/dL [place] EGFR IF NonAfrican [place] >60.0 >60 mL/min [place] Comment on above: Source- MDRD equatio n with creatinine calibration to IDMS(NKDEP) eGFR not recommended for drug dose adjustment GFR/1.73 sq M predicted among blacks MDRD (S/P/Bld) [Vol rate/Area] mL/min/{1.73_m2} >60 mL/min [place] Glucose [Mass/Vol] 123 mg/dL High 70 - 100 mg/dL [place] Potassium [Moles/Vol] 4.0 mmol/L 3.5 - 5.1 mmol/L [place] Sodium [Moles/Vol] 139 mmol/L 135 - 145 mmol/L [place] Urea nitrogen [Mass/Vol] 10 mg/dL 7 - 20 mg/dL [place] CBC auto differentialon 05-11 Absolute Baso # 0.0 10*3/uL 0 - 0.2 10*3/uL [place] Absolute Neut # 11.6 10*3/uL High 1.8 - 7 10*3/uL [place] Basophils/100 WBC (Bld) 0.3 % 0 - 2 % [place] Eosinophils (Bld) [#/Vol] 0.0 10*3/uL 0 - 0.5 10*3/uL [place] Eosinophils/100 WBC (Bld) 0.1 % Low 1 - 6 % [place] Erythrocyte distribution width (RBC) [Ratio] 13.6 % 11.5 - 14.5 % [place] Granulocytes/100 WBC (Bld) 88.7 % High 40 - 80 % [place] Hematocrit (Bld) [Volume fraction] 42.6 % 35 - 47 % [place] Hemoglobin (Bld) [Mass/Vol] 14.6 g/dL 11.7 - 16 g/dL [place] Interpretation and review of laboratory results Abnormal [place] Lymphocytes (Bld) [#/Vol] 1.3 10*3/uL 1 - 4.3 10*3/uL [place] Lymphocytes/100 WBC (Bld) 9.8 % Low 20 - 40 % [place] MCH (RBC) [Entitic mass] 28.3 pg 26 - 34 pg [place] MCHC (RBC) [Mass/Vol] 34.2 % 32 - 36 % [place] MCV (RBC) [Entitic vol] 82.8 fL 79 - 98 fL [place] Monocytes (Bld) [#/Vol] 0.1 10*3/uL 0 - 0.8 10*3/uL [place] Monocytes/100 WBC (Bld) 1.1 % Low 2 - 10 % [place] Platelet mean volume (Bld) [Entitic vol] 8.2 fL 7.4 - 10.4 fL [place] Platelets (Bld) [#/Vol] 307 10*3/uL 140 - 440 10*3/uL [place] RBC (Bld) [#/Vol] 5.14 10*6/uL 3.8 - 5.2 10*6/uL [place] WBC (Bld) [#/Vol] 13.1 10*3/uL High 3.6 - 10.7 10*3/uL [place] Test Performed by [facility], [address] [place] [address] [place] CSF cell count with differen tialon 05-23-2019 Appearance (U) see below [place] Comment on above: Clear and colorless Nucleated Cells, CSF 0 {cells}/uL 0 - 5 {cells}/uL [place] Red blood cells count, CSF 41 {RBC}/uL [place] Sodium [Moles/Vol] see below [place] Comment on above: Clear and colorless Test Performed by [facility], [facility] [place] [address] [place] Cell Count,CSFon 05-23-2019 Appearance (U) see below [facility] Comment on above: Result Comment: Shahla r and colorless Performed By: #### T HC4, CSFP3, DRGA4, CSFG3, HCGUR, CSFCC #### [place] [address] [place], [place] Nucleated Cells,CSF 0 {cells}/uL Normal 0-5 [facility] Comment on above: Performed By: #### T HC4, CSFP3, DRGA4, CSFG3, HCGUR, CSFCC #### [place] [address] [place], [place] RBC Count,CSF 41 {RBC}/uL Normal [facility] Comment on above: Performed By: #### T HC4, CSFP3, DRGA4, CSFG3, HCGUR, CSFCC #### [place] [address] [place], [place] Supernatant see below Normal [facility] Comment on above: Result Comment: Shahla r and colorless Performed By: #### T HC4, CSFP3, DRGA4, CSFG3, HCGUR, CSFCC #### [place] [address] [place], [place] Drugs of Abuseon 05-23-2019 Phencyclidine (PCP), Ur Negative [facility] Comment on above: Result Comment: The expected value for all of the drugs listed above is Negative. The following drugs or drug groups have been screened for by Immunoassay at the following thresholds: Amphetamine class (1000 ng/mL), Barbiturates (200 ng/mL), Benzodiazepines (200 ng/mL), Cocaine (300 ng/mL), Methadone (300 ng/mL), Opiates (300 ng/mL), Oxycodone (100 ng/mL), and PCP (25 ng/mL). NOTE: These results are for medical treatment only. Analysis performed using non-forensic procedures. POSITIVE results are NOT confirmed by a more specific alternative method unless requested. If confirmation is needed, request confirmation under separate order. Performed By: #### T HC4, CSFP3, DRGA4, CSFG3, HCGUR, CSFCC #### [place] [address] [place], [place] Methadone, Ur Negative [facility] Comment on above: Performed By: #### T HC4, CSFP3, DRGA4, CSFG3, HCGUR, CSFCC #### [facility] [address] [place] [address] Opiates, Ur Positive Normal [facility] Comment on above: Performed By: #### T HC4, CSFP3, DRGA4, CSFG3, HCGUR, CSFCC #### [facility] [address] [place] [address] Cocaine, Ur Negative Normal [facility] Comment on above: Performed By: #### T HC4, CSFP3, DRGA4, CSFG3, HCGUR, CSFCC #### [place] [address] [place] [address] Barbiturates, Ur Negative Normal [facility] Comment on above: Performed By: #### T HC4, CSFP3, DRGA4, CSFG3, HCGUR, CSFCC #### [place] [address] [place], [place] Benzodiazepines, Ur Negative Normal [facility] Comment on above: Performed By: #### T HC4, CSFP3, DRGA4, CSFG3, HCGUR, CSFCC #### [place] [address] [place] [address] Amphetamines, Ur Negative Normal [facility] Comment on above: Performed By: #### T HC4, CSFP3, DRGA4, CSFG3, HCGUR, CSFCC #### [place] [address] [place], [place] Oxycodone/Oxymorphin e,Ur Negative Normal [facility] Comment on above: Performed By: #### T HC4, CSFP3, DRGA4, CSFG3, HCGUR, CSFCC #### [facility] [address] [place] [address] Glucose CSFon 05-23-2019 Glucose, CSF 73 mg/dL High 40 - 70 mg/dL [place] Interpretation and review of laboratory results Abnormal [place] Test Performed by [facility], [address] [place] [address] [place] Glucose, CSFon 05-23-2019 Appearance (U) see below Normal [facility] Comment on above: Result Comment: Shahla r and colorless Performed By: #### P T, CMP3M, HEMDF, MG3 #### [address] [address] Supernatant see below Normal [facility] Comment on above: Result Comment: Shahla r and colorless Performed By: #### P T, CMP3M, HEMDF, MG3 #### [address] [address] Glucose, CSF 73 mg/dL High 40-70 [facility] Comment on above: Performed By: #### P T, CMP3M, HEMDF, MG3 #### [address] [address] Gram stain CSFon 05-23-2019 INR Coag (Bld) [Relative time] Cytocentrifugation performed. Rare polymorphonuclear cells/lpf. No organisms seen. [place] Test Performed by [facility], [address] [place] [address] Specimen Source Comment:Spinal Fluid [place], [place] Hemoglobin A1Con 05-23-2019 HbA1c (Bld) [Mass fraction] 5.2 % Normal 4.0-5.7 [facility] Comment on above: Result Comment: --Hg bA1C levels may not be accurate in patients who have renal disease, received recent blood transfusions, are anemic, or who have dyshemoglobinemia. Performed By: #### P T, CMP3M, HEMDF, MG3 #### [place] [address] [place] [address] HbA1c (Bld) [Mass fraction] 103 mg/dL Normal [facility] Comment on above: Performed By: #### P T, CMP3M, HEMDF, MG3 #### [address] [address] eAG 103 mg/dL [place] HbA1c (Bld) [Mass fraction] 5.2 % 4 - 5.7 % [place] Comment on above: --HgbA1C levels may not be accurate in patients who have renal disease, received recent blood transfusions, are anemic, or who have dyshemoglobinemia. Test Performed by [facility], [address] [place] [address] [facility], [place] Hemogram w/ Autodiffon 05-23 Abs Baso Cnt 0.0 10*3/uL Normal 0.0-0.2 [facility] Comment on above: Performed By: #### P T, CMP3M, HEMDF, MG3 #### [address] [address] Abs Neutrophile Cnt 11.6 10*3/uL High 1.8-7.0 [facility] Comment on above: Performed By: #### P T, CMP3M, HEMDF, MG3 #### [address] [address] Basophils/100 WBC (Bld) 0.3 % Normal 0.0-2.0 [facility] Comment on above: Performed By: #### P T, CMP3M, HEMDF, MG3 #### [address] [address] Eosinophils (Bld) [#/Vol] 0.0 10*3/uL Normal 0.0-0.5 [facility] Comment on above: Performed By: #### P T, CMP3M, HEMDF, MG3 #### [address] [address] Eosinophils/100 WBC (Bld) 0.1 % Low 1.0-6.0 [facility] Comment on above: Performed By: #### P T, CMP3M, HEMDF, MG3 #### [address] [address] Erythrocyte distribution width (RBC) [Ratio] 13.6 % Normal 11.5-14.5 [facility] Comment on above: Performed By: #### P T, CMP3M, HEMDF, MG3 #### [address] [address] Granulocytes/100 WBC (Bld) 88.7 % High 40.0-80.0 [facility] Comment on above: Performed By: #### P T, CMP3M, HEMDF, MG3 #### [place] [address] [place], [place] Hematocrit (Bld) [Volume fraction] 42.6 % Normal 35.0-47.0 [facility] Comment on above: Performed By: #### P T, CMP3M, HEMDF, MG3 #### [place] [address] [place] Hemoglobin (Bld) [Mass/Vol] 14.6 g/dL Normal 11.7-16.0 [facility] Comment on above: Performed By: #### P T, CMP3M, HEMDF, MG3 #### [place] [address] [place], [place] Lymphocytes (Bld) [#/Vol] 1.3 10*3/uL Normal 1.0-4.3 [facility] Comment on above: Performed By: #### P T, CMP3M, HEMDF, MG3 #### [place] [address] [place] Lymphocytes/100 WBC (Bld) 9.8 % Low 20.0-40.0 [facility] Comment on above: Performed By: #### P T, CMP3M, HEMDF, MG3 #### [place] [address] [place] MCH (RBC) [Entitic mass] 28.3 pg Normal 26.0-34.0 [facility] Comment on above: Performed By: #### P T, CMP3M, HEMDF, MG3 #### [place] [address] [place] MCHC (RBC) [Mass/Vol] 34.2 % Normal 32.0-36.0 [facility] Comment on above: Performed By: #### P T, CMP3M, HEMDF, MG3 #### [place] [address] [place] MCV (RBC) [Entitic vol] 82.8 fL Normal 79.0-98.0 [facility] Comment on above: Performed By: #### P T, CMP3M, HEMDF, MG3 #### [facility] [address] [place], [place] Monocytes (Bld) [#/Vol] 0.1 10*3/uL Normal 0.0-0.8 [facility] Comment on above: Performed By: #### P T, CMP3M, HEMDF, MG3 #### [place] [address] [place] Monocytes/100 WBC (Bld) 1.1 % Low 2.0-10.0 [facility] Comment on above: Performed By: #### P T, CMP3M, HEMDF, MG3 #### [place] [address] [place] Platelet mean volume (Bld) [Entitic vol] 8.2 fL Normal 7.4-10.4 [facility] Comment on above: Performed By: #### P T, CMP3M, HEMDF, MG3 #### [place] [address] [place], [place] Platelets (Bld) [#/Vol] 307 10*3/uL Normal 140-440 [facility] Comment on above: Performed By: #### P T, CMP3M, HEMDF, MG3 #### [place] [address] [place], [place] RBC (Bld) [#/Vol] 5.14 10*6/uL Normal 3.80-5.20 [facility] Comment on above: Performed By: #### P T, CMP3M, HEMDF, MG3 #### [place] [address] [place] WBC (Bld) [#/Vol] 13.1 10*3/uL High 3.6-10.7 [facility] Comment on above: Performed By: #### P T, CMP3M, HEMDF, MG3 #### [place] [address] [place], [place] Lipid Panelon 05-23-2019 Cholesterol in HDL [Mass/Vol] 39 mg/dL Low 40-60 [facility] Comment on above: Performed By: #### P T, CMP3M, HEMDF, MG3 #### [facility] [address] [place] [address] Cholesterol.total/Ch olesterol in HDL [Mass ratio] 5 Normal [facility] Comment on above: Result Comment: Ref Range: < 3 Low Risk for CHD 3-6 Mod Risk for CHD > 6 High Risk for CHD Performed By: #### P T, CMP3M, HEMDF, MG3 #### [facility] [address] [place] [address] Protein [Mass/Vol] 135 mg/dL Abnormal <100 [facility] Comment on above: Performed By: #### P T, CMP3M, HEMDF, MG3 #### [facility] [address] [place] [address] Triglyceride [Mass/Vol] 106 mg/dL Normal <150 [facility] Comment on above: Performed By: #### P T, CMP3M, HEMDF, MG3 #### [facility] [address] [place] [address] Cholesterol [Mass/Vol] 195 mg/dL Normal < 200 [facility] Comment on above: Performed By: #### P T, CMP3M, HEMDF, MG3 #### [facility] [address] [place] [address] Cholesterol [Mass/Vol] 195 mg/dL <200 [place] Cholesterol in HDL [Mass/Vol] 39 mg/dL Low 40 - 60 mg/dL [place] Cholesterol in LDL [Mass/Vol] 135 mg/dL Abnormal <100 [place] Cholesterol.total/Ch olesterol in HDL [Mass ratio] 5 {ratio} [place] Comment on above: Ref Range: < 3 Low Risk for CHD 3-6 Mod Risk for CHD > 6 High Risk for CHD Triglyceride [Mass/Vol] 106 mg/dL <150 [place] MENINGITIS/ENCEPHALITIS PCR PANELon 05-23-2019 MENINGITIS/ENCEPHALI TIS PCR PANEL MENINGITIS/ENCEPHALITIS PCR PANEL --> Status: F NEGATIVE: No targets were detected by the [...] with other clinical, laboratory, and epidemiological data. Meningitis/Encephalitis PCR Panel. The [employer] Meningitis/Encephalitis Panel [...] with other clinical, laboratory, and epidemiological data. Normal Patient Communicator Comment on above: Order Comment: Speci men Source Comment:CSF Performed By: #### P T, CMP3M, HEMDF, MG3 #### [facility] [address] [place] [address] MRA Head w/o Contraston 05-11 MRA Head w/o Contrast Patient Name: SONDRA BLANCO MRI Exam Date/Time 05/22/2019 22:25:30 EDT Exam MRA Head w/o Contrast Ordering Physician Shawna TEMPLETON JOHN C Accession Number [id number] CPT4 Codes 69121 () Reason For Exam headache Report MRI OF THE BRAIN WITHOUT AND WITH GADOLINIUM CLINICAL INDICATION: headache TECHNIQUE: Routine MRI of the brain without and with IV gadolinium. COMPARISON: None. FINDINGS: No apparent mass, mass effect, hemorrhage, midline shift or hydrocephalus. No acute infarct seen on diffusion weighted imaging. No pathologic extra-axial fluid collection. No pineal region or sellar masses. No cerebellar tonsillar herniation. No abnormal enhancement. IMPRESSION: 1. No acute intracranial findings. MRA AND MRV OF THE BRAIN. MRA OF THE NECK WITHOUT AND WITH GADOLINIUM CLINICAL INDICATION: headache TECHNIQUE: Routine MRA and MRV of the brain. Routine MRA of the neck without and with IV gadolinium. COMPARISON: None. FINDINGS: MRA: Normal flow-related enhancement in the distal internal carotid arteries, anterior, middle and posterior cerebral arteries, basilar and bilateral vertebral arteries. No aneurysm, focal stenosis or apparent occlusion. MRV: Normal enhancement in the bilateral sigmoid and transverse, straight and superior sagittal sinuses and their main intracranial branches. Asymmetrically small left transverse sinus probably developmental/anatomic. No abnormal filling defect to suggest thrombosis. Neck: Normal enhancement in the bilateral common, internal and external carotid arteries. No aneurysm or focal signal void to suggest significant stenosis. Carotid bifurcations have normal contour without significant plaque formation. Vertebral arteries appear patent bilaterally. IMPRESSION: 1. No significant intracranial stenosis. 2. No evidence of acute dural sinus thromboses. 3. No significant carotid stenosis (less than 50%) by NASCET criteria. Reference: Measurement of carotid stenosis is a ratio based on conventional angiographic data from the NASCET trials with the post stenotic internal carotid artery caliber minus the smallest caliber of the stenotic internal carotid as the numerator and normal post-stenotic internal carotid caliber as denominator. Report Dictated on Final Dictated: 05/22/2019 10:31 pm Dictating Physician: MD CLAIRE WENDELL Signed Date and Time: 05/22/2019 10:41 pm Signed by: MD CLAIRE WENDELL Transcribed Date and Time: 05/22/2019 10:40 Normal [facility] MRA Neck w/ + w/o Contraston 05-23-2019 MRA Neck w/ + w/o Contrast Patient Name: SONDRA BLANCO MRI Exam Date/Time 05/22/2019 22:25:30 EDT Exam MRA Neck w/ + w/o Contrast Ordering Physician Shawna TEMPLETON JOHN C Accession Number [id number] CPT4 Codes 71430 () Reason For Exam headache Report MRI OF THE BRAIN WITHOUT AND WITH GADOLINIUM CLINICAL INDICATION: headache TECHNIQUE: Routine MRI of the brain without and with IV gadolinium. COMPARISON: None. FINDINGS: No apparent mass, mass effect, hemorrhage, midline shift or hydrocephalus. No acute infarct seen on diffusion weighted imaging. No pathologic extra-axial fluid collection. No pineal region or sellar masses. No cerebellar tonsillar herniation. No abnormal enhancement. IMPRESSION: 1. No acute intracranial findings. MRA AND MRV OF THE BRAIN. MRA OF THE NECK WITHOUT AND WITH GADOLINIUM CLINICAL INDICATION: headache TECHNIQUE: Routine MRA and MRV of the brain. Routine MRA of the neck without and with IV gadolinium. COMPARISON: None. FINDINGS: MRA: Normal flow-related enhancement in the distal internal carotid arteries, anterior, middle and posterior cerebral arteries, basilar and bilateral vertebral arteries. No aneurysm, focal stenosis or apparent occlusion. MRV: Normal enhancement in the bilateral sigmoid and transverse, straight and superior sagittal sinuses and their main intracranial branches. Asymmetrically small left transverse sinus probably developmental/anatomic. No abnormal filling defect to suggest thrombosis. Neck: Normal enhancement in the bilateral common, internal and external carotid arteries. No aneurysm or focal signal void to suggest significant stenosis. Carotid bifurcations have normal contour without significant plaque formation. Vertebral arteries appear patent bilaterally. IMPRESSION: 1. No significant intracranial stenosis. 2. No evidence of acute dural sinus thromboses. 3. No significant carotid stenosis (less than 50%) by NASCET criteria. Reference: Measurement of carotid stenosis is a ratio based on conventional angiographic data from the NASCET trials with the post stenotic internal carotid artery caliber minus the smallest caliber of the stenotic internal carotid as the numerator and normal post-stenotic internal carotid caliber as denominator. Report Dictated on Final Dictated: 05/22/2019 10:31 pm Dictating Physician: MD CLAIRE WENDELL Signed Date and Time: 05/22/2019 10:41 pm Signed by: MD CLAIRE WENDELL Transcribed Date and Time: 05/22/2019 10:40 Normal [facility] MRI Brain w/ + w/o Contrasto n 05-23-2019 MRI Brain w/ + w/o Contrast Patient Name: SONDRA BLANCO MRI Exam Date/Time 05/22/2019 22:25:30 EDT Exam MRI Brain w/ + w/o Contrast Ordering Physician Shawna TEMPLETON JOHN C Accession Number [id number] CPT4 Codes 65798 () Reason For Exam headache Report MRI OF THE BRAIN WITHOUT AND WITH GADOLINIUM CLINICAL INDICATION: headache TECHNIQUE: Routine MRI of the brain without and with IV gadolinium. COMPARISON: None. FINDINGS: No apparent mass, mass effect, hemorrhage, midline shift or hydrocephalus. No acute infarct seen on diffusion weighted imaging. No pathologic extra-axial fluid collection. No pineal region or sellar masses. No cerebellar tonsillar herniation. No abnormal enhancement. IMPRESSION: 1. No acute intracranial findings. MRA AND MRV OF THE BRAIN. MRA OF THE NECK WITHOUT AND WITH GADOLINIUM CLINICAL INDICATION: headache TECHNIQUE: Routine MRA and MRV of the brain. Routine MRA of the neck without and with IV gadolinium. COMPARISON: None. FINDINGS: MRA: Normal flow-related enhancement in the distal internal carotid arteries, anterior, middle and posterior cerebral arteries, basilar and bilateral vertebral arteries. No aneurysm, focal stenosis or apparent occlusion. MRV: Normal enhancement in the bilateral sigmoid and transverse, straight and superior sagittal sinuses and their main intracranial branches. Asymmetrically small left transverse sinus probably developmental/anatomic. No abnormal filling defect to suggest thrombosis. Neck: Normal enhancement in the bilateral common, internal and external carotid arteries. No aneurysm or focal signal void to suggest significant stenosis. Carotid bifurcations have normal contour without significant plaque formation. Vertebral arteries appear patent bilaterally. IMPRESSION: 1. No significant intracranial stenosis. 2. No evidence of acute dural sinus thromboses. 3. No significant carotid stenosis (less than 50%) by NASCET criteria. Reference: Measurement of carotid stenosis is a ratio based on conventional angiographic data from the NASCET trials with the post stenotic internal carotid artery caliber minus the smallest caliber of the stenotic internal carotid as the numerator and normal post-stenotic internal carotid caliber as denominator. Report Dictated on Final Dictated: 05/22/2019 10:31 pm Dictating Physician: MD CLAIRE WENDELL Signed Date and Time: 05/22/2019 10:41 pm Signed by: MD CLAIRE WENDELL Transcribed Date and Time: 05/22/2019 10:40 Normal [facility] MRV Headon 05-23-2019 MRV Head Patient Name: SONDRA BLANCO MRI Exam Date/Time 05/22/2019 22:25:30 EDT Exam MRV Head Ordering Physician Shawna TEMPLETON JOHN Brittni Accession Number [id number] CPT4 Codes 81053 () Reason For Exam headache Report MRI OF THE BRAIN WITHOUT AND WITH GADOLINIUM CLINICAL INDICATION: headache TECHNIQUE: Routine MRI of the brain without and with IV gadolinium. COMPARISON: None. FINDINGS: No apparent mass, mass effect, hemorrhage, midline shift or hydrocephalus. No acute infarct seen on diffusion weighted imaging. No pathologic extra-axial fluid collection. No pineal region or sellar masses. No cerebellar tonsillar herniation. No abnormal enhancement. IMPRESSION: 1. No acute intracranial findings. MRA AND MRV OF THE BRAIN. MRA OF THE NECK WITHOUT AND WITH GADOLINIUM CLINICAL INDICATION: headache TECHNIQUE: Routine MRA and MRV of the brain. Routine MRA of the neck without and with IV gadolinium. COMPARISON: None. FINDINGS: MRA: Normal flow-related enhancement in the distal internal carotid arteries, anterior, middle and posterior cerebral arteries, basilar and bilateral vertebral arteries. No aneurysm, focal stenosis or apparent occlusion. MRV: Normal enhancement in the bilateral sigmoid and transverse, straight and superior sagittal sinuses and their main intracranial branches. Asymmetrically small left transverse sinus probably developmental/anatomic. No abnormal filling defect to suggest thrombosis. Neck: Normal enhancement in the bilateral common, internal and external carotid arteries. No aneurysm or focal signal void to suggest significant stenosis. Carotid bifurcations have normal contour without significant plaque formation. Vertebral arteries appear patent bilaterally. IMPRESSION: 1. No significant intracranial stenosis. 2. No evidence of acute dural sinus thromboses. 3. No significant carotid stenosis (less than 50%) by NASCET criteria. Reference: Measurement of carotid stenosis is a ratio based on conventional angiographic data from the NASCET trials with the post stenotic internal carotid artery caliber minus the smallest caliber of the stenotic internal carotid as the numerator and normal post-stenotic internal carotid caliber as denominator. Report Dictated on Final Dictated: 05/22/2019 10:31 pm Dictating Physician: MD CLAIRE WENDELL Signed Date and Time: 05/22/2019 10:41 pm Signed by: MD CLAIRE WENDELL Transcribed Date and Time: 05/22/2019 10:40 Normal [facility] Magnesiumon 05-23-2019 Magnesium [Mass/Vol] 2.8 mg/dL High 1.6-2.3 [facility] Comment on above: Performed By: #### P T, CMP3M, HEMDF, MG3 #### [facility] [address] [place] [address] Magnesium [Mass/Vol] 2.8 mg/dL High 1.6 - 2 .3 mg/dL [facility], [place] Medical Cytology 9 Medical Cytology [facility] DEPARTMENT OF PATHOLOGY AND [facility] LABORATORY MEDICINE [address] [place] [address] [phone] FINAL MEDICAL CYTOLOGY REPORT NAME: SONDRA BLANCO : 1985 33 Y F BILLING NO.: [id number] LOCATION: [address] [place] [address] [facility] 1337 PROCEDURE 05/23/2019 DATE: PHYSICIAN: CARROL TEMPLETON MD RECEIVED DATE: 05/26/2019 ATTENDING: SERAFIN LONG, REPORT DATE: 05/26/2019 D.O. COPIES TO: CARY COUGHLIN M.D.; CARROLL MARISCAL MD CLINICAL DATA: DIAGNOSIS NO MALIGNANT CELLS IDENTIFIED. SPECIMEN: CEREBROSPINAL FLUID PROCEDURE(S): FLUID COLLECTION GROSS DESCRIPTION: 2 ml, clear fluid, w/o cytolyt Materials Prepared & Examined: Monolayers . . . . . . . . . . . . 1 DD0 Screened by RADHA FORBES MD The following statement applies to all immunohistochemistry, in situ hybridization, molecular studies, and immunofluorescence testing. The use of one or more reagents in the above tests is regulated as an analyte specific reagent (ASR). These tests were developed and their performance characteristics determined by the clinical laboratories of [facility]. They have not been cleared by the [place] Food and Drug Administration (FDA). The FDA has determined that such clearance or approval is not necessary. All the above immunostains were performed on paraffin embedded tissue. Appropriate positive and negative controls (where applicable) were run in parallel with the patient's specimen; these controls showed expected staining pattern, with acceptable intensity of staining. Immunohistochemical assays have not been validated on decalcified tissues. Results should be interpreted with caution given the raised possibility of false negativity on decalcified specimens. Case reviewed at [address] [address]. DEPARTMENT OF PATHOLOGY AND LABORATORY MEDICINE [place], [place] [address] Normal [facility] Meningitis/Encephalitis Pane l, CSFon 05-23-2019 Meningitis Encephalitis Panel NEGATIVE: No targets were detected by the [email or web address] Meningitis/Encephalitis PCR Panel. The [employer] Meningitis/Encephalitis Panel [...] with other clinical, laboratory, and epidemiological data. [employer] Test Performed by [address] [address] Specimen Source Comment:CSF [facility] Metabolic Panelon 05-23-2019 Sodium [Moles/Vol] see below [employer] Comment on above: Clear and colorless Otheron 05-23-2019 Interpretation and review of laboratory results Abnormal [employer] Test Performed by [facility], [address] [place] [address] [address] [facility] Protein CSFon 05-23-2019 Protein, CSF 39.6 mg/dL 12 - 60 mg/dL [facility] Test Performed by [facility], [address] [place] [address] [facility] [place], [place] Protein, CSFon 05-23-2019 Protein, CSF 39.6 mg/dL Normal 12.0-60.0 [facility] Comment on above: Performed By: #### T HC4, CSFP3, DRGA4, CSFG3, HCGUR, CSFCC #### [facility] [address] [place] [address] STAIN GRAMon 05-23-2019 STAIN GRAM STAIN GRAM --> Statu s: F Cytocentrifugation performed. Rare polymorphonuclear cells/lpf. No organisms seen. Rare polymorphonuclear cells/lpf. No organisms seen. Normal [facility] Comment on above: Order Comment: Speci men Source Comment:Spinal Fluid Performed By: #### P T, CMP3M, HEMDF, MG3 #### [facility] [address] [place] [address] THC, Urineon 05-23-2019 THC, Ur Negative Normal [facility] Comment on above: Result Comment: Thre shold= 50 ng/mL Performed By: #### T HC4, CSFP3, DRGA4, CSFG3, HCGUR, CSFCC #### [facility] [address] [place] [address] XA SPECIAL PROCEDUREon 05-23 Jose, [facility] Incoming Radiology Results [facility] - 05/23/2019 5:46 PM EDT Patient Name: SONDRA BLANCO ---Special Procedures--- Exam Date/Time 05/23/2019 17:29:59 EDT Exam XA Special Angiography Procedure Ordering Physician NEIL LATIF, CARLITOS Zhang Accession Number [id number] Reason For Exam lumbar puncture with opening [...] 05/23/2019 5:44 pm Addendum Dictating Physician: MD SWARTZ KEVIN Signed Date and Time: 05/23/2019 5:45 pm Signed by: MD SWARTZ KEVIN Transcribed Date and Time: 05/23/2019 5:44 Report CLINICAL HISTORY: Headache Procedures: Fluoroscopic-guided lumbar puncture. Physician: Dr. Swartz MEDICATIONS: Local lidocaine. EBL: Minimal. Contrast: None. [...] Dictated: 05/23/2019 5:26 pm Dictating Physician: MD SWARTZ KEVIN Signed Date and Time: 05/23/2019 5:28 pm Signed by: MD SWARTZ KEVIN Transcribed Date and Time: 05/23/2019 5:26 [place], [place] Patient Name: SONDRA BLANCO ---Special Procedures--- Exam Date/Time 05/23/2019 17:29:59 EDT Exam XA Special Angiography Procedure Ordering Physician NEIL LATIF, CARLITOS Zhang Accession Number [id number] Reason For Exam lumbar puncture with opening [...] 05/23/2019 5:44 pm Addendum Dictating Physician: MD SWARTZ KEVIN Signed Date and Time: 05/23/2019 5:45 pm Signed by: MD SWARTZ KEVIN Transcribed Date and Time: 05/23/2019 5:44 Report CLINICAL HISTORY: Headache Procedures: Fluoroscopic-guided lumbar puncture. Physician: Dr. Swartz MEDICATIONS: Local lidocaine. EBL: Minimal. Contrast: None. [...] Dictated: 05/23/2019 5:26 pm Dictating Physician: MD SWARTZ KEVIN Signed Date and Time: 05/23/2019 5:28 pm Signed by: MD SWARTZ KEVIN Transcribed Date and Time: 05/23/2019 5:26 [place], [place] XA Special [facility] XA Special Angiography Procedure Patient Name: SONDRA BLANCO Special Procedures Exam Date/Time 05/23/2019 17:29:59 EDT Exam XA Special Angiography Procedure Ordering Physician NEIL LATIF, CARLITOS Zhang Accession Number [id number] Reason For Exam lumbar puncture with opening pressure, if opening pressure >25, please drain 20-30ml and obtain closing pressure Addendum The original requisition did not include the request for closing pressure and CSF withdrawal amount, and therefore was not performed. If changes are made to an existing order, the department must be contacted to verify changes. Report Dictated on Workstation: [email or web address] Final Addendum Dictated: 05/23/2019 5:44 pm Addendum Dictating Physician: MD SWARTZ KEVIN Signed Date and Time: 05/23/2019 5:45 pm Signed by: MD SWARTZ KEVIN Transcribed Date and Time: 05/23/2019 5:44 Report CLINICAL HISTORY: Headache Procedures: Fluoroscopic-guided lumbar puncture. Physician: Dr. Swartz MEDICATIONS: Local lidocaine. EBL: Minimal. Contrast: None. [...] lumbar puncture. Report Dictated on Workstation: [id number] Final Dictated: 05/23/2019 5:26 pm Dictating Physician: MD SWARTZ KEVIN Signed Date and Time: 05/23/2019 5:28 pm Signed by: MD SWARTZ KEVIN Transcribed Date and Time: 05/23/2019 5:26 Normal [facility] Add On Lab Teston 05-22-2019 Sodium [Moles/Vol] Accepted [place], [place] Comment on above: Specimen available & acceptable for analysis. Test Performed by [facility], [address] [place] [address] [place], [place] Add on test from HISon 05-22 Add on test from HIS Accepted Normal [facility] Comment on above: Result Comment: Spec imen available & acceptable for analysis. Performed By: #### A DDON #### [address] [address] CBC auto differentialon 05-11 Absolute Baso # 0.1 10*3/uL 0 - 0.2 10*3/uL [place] Absolute Neut # 9.8 10*3/uL High 1.8 - 7 10*3/uL [place] Basophils/100 WBC (Bld) 0.7 % 0 - 2 % [place] Eosinophils (Bld) [#/Vol] 0.1 10*3/uL 0 - 0.5 10*3/uL [place] Eosinophils/100 WBC (Bld) 0.7 % Low 1 - 6 % [place] Erythrocyte distribution width (RBC) [Ratio] 13.4 % 11.5 - 14.5 % [place] Granulocytes/100 WBC (Bld) 69.0 % 40 - 80 % [place] Hematocrit (Bld) [Volume fraction] 42.2 % 35 - 47 % [place] Hemoglobin (Bld) [Mass/Vol] 14.4 g/dL 11.7 - 16 g/dL [place] Interpretation and review of laboratory results Abnormal [place] Lymphocytes (Bld) [#/Vol] 3.2 10*3/uL 1 - 4.3 10*3/uL [place] Lymphocytes/100 WBC (Bld) 22.2 % 20 - 40 % [place] MCH (RBC) [Entitic mass] 28.1 pg 26 - 34 pg [place] MCHC (RBC) [Mass/Vol] 34.2 % 32 - 36 % [place] MCV (RBC) [Entitic vol] 82.1 fL 79 - 98 fL [place] Monocytes (Bld) [#/Vol] 1.1 10*3/uL High 0 - 0.8 10*3/uL [place] Monocytes/100 WBC (Bld) 7.4 % 2 - 10 % [place] Platelet mean volume (Bld) [Entitic vol] 7.6 fL 7.4 - 10.4 fL [place] Platelets (Bld) [#/Vol] 271 10*3/uL 140 - 440 10*3/uL [place] RBC (Bld) [#/Vol] 5.14 10*6/uL 3.8 - 5.2 10*6/uL [place] WBC (Bld) [#/Vol] 14.2 10*3/uL High 3.6 - 10.7 10*3/uL [place] Test Performed by [facility], [address] [place] [id number] [place] [address] Cannabinoid, Urine, Screenin g, Critical Careon 05-22-2019 THC Negative [place], [place] Comment on above: Threshold= 50 ng/mL Test Performed by [facility], [address] [place] [address] [place], [place] Comp Panel with Mg Reflexon 05-22-2019 ALT [Catalytic activity/Vol] 15 U/L Normal 13-69 [facility] Comment on above: Performed By: #### P T, CMP3M, HEMDF, MG3 #### [address] [address] [place] [address] Calcium [Mass/Vol] 9.1 mg/dL Normal 8.4-10.4 [facility] Comment on above: Performed By: #### P T, CMP3M, HEMDF, MG3 #### [address] [place], [place] ALP [Catalytic activity/Vol] 103 U/L Normal 38-126 [facility] Comment on above: Performed By: #### P T, CMP3M, HEMDF, MG3 #### [address] [place], [place] Anion gap [Moles/Vol] 10 Normal [facility] Comment on above: Performed By: #### P T, CMP3M, HEMDF, MG3 #### [address] [place], [place] AST [Catalytic activity/Vol] 19 U/L Normal 15-46 [facility] Comment on above: Performed By: #### P T, CMP3M, HEMDF, MG3 #### [address] [place], [place] Bilirubin [Mass/Vol] 0.7 mg/dL Normal 0.2-1.3 [facility] Comment on above: Performed By: #### P T, CMP3M, HEMDF, MG3 #### [address] [place], [place] CO2 [Moles/Vol] 21 mmol/L Low 22-30 [facility] Comment on above: Performed By: #### P T, CMP3M, HEMDF, MG3 #### [address] [place], [place] Creatinine [Mass/Vol] 0.67 mg/dL Normal 0.52-1.25 [facility] Comment on above: Performed By: #### P T, CMP3M, HEMDF, MG3 #### [address] [place], [place] GFR/1.73 sq M predicted among blacks MDRD (S/P/Bld) [Vol rate/Area] mL/min/{1.73_m2} Normal >60 [facility] Comment on above: Performed By: #### P T, CMP3M, HEMDF, MG3 #### [facility] [address] [place] [address] GFR/1.73 sq M predicted among non-blacks MDRD (S/P/Bld) [Vol rate/Area] mL/min/{1.73_m2} Normal >60 [facility] Comment on above: Result Comment: Sour ce- MDRD equation with creatinine calibration to IDMS(NKDEP) eGFR not recommended for drug dose adjustment Performed By: #### P T, CMP3M, HEMDF, MG3 #### [address] [place], [place] Glucose [Mass/Vol] 94 mg/dL Normal 70-100 [facility] Comment on above: Performed By: #### P T, CMP3M, HEMDF, MG3 #### [address] [place], [place] Protein [Mass/Vol] 7.9 g/dL Normal 6.3-8.2 [facility] Comment on above: Performed By: #### P T, CMP3M, HEMDF, MG3 #### [address] [place], [place] Urea nitrogen [Mass/Vol] 10 mg/dL Normal 7-20 [facility] Comment on above: Performed By: #### P T, CMP3M, HEMDF, MG3 #### [address] [place], [place] Potassium [Moles/Vol] 4.0 mmol/L Normal 3.5-5.1 [facility] Comment on above: Performed By: #### P T, CMP3M, HEMDF, MG3 #### [address] [place] [address] Albumin [Mass/Vol] 4.2 g/dL Normal 3.5-5.0 [facility] Comment on above: Performed By: #### P T, CMP3M, HEMDF, MG3 #### [address] [place] [address] Sodium [Moles/Vol] 140 mmol/L Normal 135-145 [facility] Comment on above: Performed By: #### P T, CMP3M, HEMDF, MG3 #### [facility] [address] [place] [address] Chloride [Moles/Vol] 109 mmol/L High 98-107 [facility] Comment on above: Performed By: #### P T, CMP3M, HEMDF, MG3 #### [facility] [address] [place] [address] Comprehensive Metabolic Pane l w/ Reflex to MGon 05-22-2019 Albumin [Mass/Vol] 4.2 g/dL 3.5 - 5 g/dL [place], [place] ALP [Catalytic activity/Vol] 103 U/L 38 - 126 U/L [place] ALT [Catalytic activity/Vol] 15 U/L 13 - 69 U/L [place] Anion gap [Moles/Vol] 10 mmol/L [place] AST [Catalytic activity/Vol] 19 U/L 15 - 46 U/L [place] Bilirubin Ql (U) 0.7 mg/dL 0.2 - 1.3 mg/dL [place] Calcium [Mass/Vol] 9.1 mg/dL 8.4 - 10. 4 mg/dL [place] Chloride [Moles/Vol] 109 mmol/L High 98 - 10 7 mmol/L [place] CO2 [Moles/Vol] 21 mmol/L Low 22 - 30 mmol/L [place] Creatinine [Mass/Vol] 0.67 mg/dL 0.52 - 1.25 mg/dL [place] EGFR IF NonAfrican [place] >60.0 >60 mL/min [place] Comment on above: Source- MDRD equatio n with creatinine calibration to IDMS(NKDEP) eGFR not recommended for drug dose adjustment GFR/1.73 sq M predicted among blacks MDRD (S/P/Bld) [Vol rate/Area] mL/min/{1.73_m2} >60 mL/min [place] Glucose [Mass/Vol] 94 mg/dL 70 - 100 mg/dL [place] Interpretation and review of laboratory results Abnormal [place] Potassium [Moles/Vol] 4.0 mmol/L 3.5 - 5.1 mmol/L [place] Protein [Mass/Vol] 7.9 g/dL 6.3 - 8.2 g/dL [place] Sodium [Moles/Vol] 140 mmol/L 135 - 145 mmol/L [place] Urea nitrogen [Mass/Vol] 10 mg/dL 7 - 20 mg/dL [place] HCG,Urine Qualon 05-22-2019 Beta HCG ( test) Ql (U) Negative Normal Negative [facility] Comment on above: Result Comment: Preg arya is the most common reason for HCG in urine, although choriocarcinoma, hydatidiform mole, and certain nontropho- blastic malignancies also result in detectable urinary HCG levels. Sensitivity = 20mIU/mL. Performed By: #### T HC4, CSFP3, DRGA4, CSFG3, HCGUR, CSFCC #### [address] [place], [place] Hemogram w/ Autodiffon 05-22 Abs Baso Cnt 0.1 10*3/uL Normal 0.0-0.2 [facility] Comment on above: Performed By: #### P T, CMP3M, HEMDF, MG3 #### [address] [place], [place] Abs Neutrophile Cnt 9.8 10*3/uL High 1.8-7.0 [facility] Comment on above: Performed By: #### P T, CMP3M, HEMDF, MG3 #### [address] [place], [place] Basophils/100 WBC (Bld) 0.7 % Normal 0.0-2.0 [facility] Comment on above: Performed By: #### P T, CMP3M, HEMDF, MG3 #### [address] [place], [place] Eosinophils (Bld) [#/Vol] 0.1 10*3/uL Normal 0.0-0.5 [facility] Comment on above: Performed By: #### P T, CMP3M, HEMDF, MG3 #### [address] [place] Eosinophils/100 WBC (Bld) 0.7 % Low 1.0-6.0 [facility] Comment on above: Performed By: #### P T, CMP3M, HEMDF, MG3 #### [address] [place], [place] Erythrocyte distribution width (RBC) [Ratio] 13.4 % Normal 11.5-14.5 [facility] Comment on above: Performed By: #### P T, CMP3M, HEMDF, MG3 #### [address] [place], [place] Granulocytes/100 WBC (Bld) 69.0 % Normal 40.0-80.0 [facility] Comment on above: Performed By: #### P T, CMP3M, HEMDF, MG3 #### [address] [place] Hematocrit (Bld) [Volume fraction] 42.2 % Normal 35.0-47.0 [facility] Comment on above: Performed By: #### P T, CMP3M, HEMDF, MG3 #### [address] [place], [place] Hemoglobin (Bld) [Mass/Vol] 14.4 g/dL Normal 11.7-16.0 [facility] Comment on above: Performed By: #### P T, CMP3M, HEMDF, MG3 #### [address] [place], [place] Lymphocytes (Bld) [#/Vol] 3.2 10*3/uL Normal 1.0-4.3 [facility] Comment on above: Performed By: #### P T, CMP3M, HEMDF, MG3 #### [address] [place], [place] Lymphocytes/100 WBC (Bld) 22.2 % Normal 20.0-40.0 [facility] Comment on above: Performed By: #### P T, CMP3M, HEMDF, MG3 #### [address] [place] MCH (RBC) [Entitic mass] 28.1 pg Normal 26.0-34.0 [facility] Comment on above: Performed By: #### P T, CMP3M, HEMDF, MG3 #### [facility] [address] [place], [place] MCHC (RBC) [Mass/Vol] 34.2 % Normal 32.0-36.0 [facility] Comment on above: Performed By: #### P T, CMP3M, HEMDF, MG3 #### [address] [place] MCV (RBC) [Entitic vol] 82.1 fL Normal 79.0-98.0 [facility] Comment on above: Performed By: #### P T, CMP3M, HEMDF, MG3 #### [address] [place], [place] Monocytes (Bld) [#/Vol] 1.1 10*3/uL High 0.0-0.8 [facility] Comment on above: Performed By: #### P T, CMP3M, HEMDF, MG3 #### [address] [place], [place] Monocytes/100 WBC (Bld) 7.4 % Normal 2.0-10.0 [facility] Comment on above: Performed By: #### P T, CMP3M, HEMDF, MG3 #### [address] [place], [place] Platelet mean volume (Bld) [Entitic vol] 7.6 fL Normal 7.4-10.4 [facility] Comment on above: Performed By: #### P T, CMP3M, HEMDF, MG3 #### [address] [place], [place] Platelets (Bld) [#/Vol] 271 10*3/uL Normal 140-440 [facility] Comment on above: Performed By: #### P T, CMP3M, HEMDF, MG3 #### [facility] [address] [place], [place] RBC (Bld) [#/Vol] 5.14 10*6/uL Normal 3.80-5.20 [facility] Comment on above: Performed By: #### P T, CMP3M, HEMDF, MG3 #### [facility] [address] [place] [address] WBC (Bld) [#/Vol] 14.2 10*3/uL High 3.6-10.7 [facility] Comment on above: Performed By: #### P T, CMP3M, HEMDF, MG3 #### [facility] [address] [place], [place] MRA HEAD WO CONTRASTon 05-22 Patient Name: SONDRA BLANCO ---MRI--- Exam Date/Time 05/22/2019 22:25:30 EDT Exam MRA Head w/o Contrast Ordering Physician Shawna TEMPLETON JOHN C Accession Number [id number] CPT4 Codes 19407 () Reason For Exam headache Report MRI OF THE BRAIN WITHOUT AND WITH GADOLINIUM CLINICAL INDICATION: headache TECHNIQUE: Routine MRI of the brain without and with IV gadolinium. COMPARISON: None. FINDINGS: No apparent mass, mass effect, hemorrhage, midline shift or hydrocephalus. No acute infarct seen on diffusion weighted imaging. No pathologic extra-axial fluid collection. No pineal region or sellar masses. No cerebellar tonsillar herniation. No abnormal enhancement. IMPRESSION: 1. No acute intracranial findings. MRA AND MRV OF THE BRAIN. MRA OF THE NECK WITHOUT AND WITH GADOLINIUM CLINICAL INDICATION: headache TECHNIQUE: Routine MRA and MRV of the brain. Routine MRA of the neck without and with IV gadolinium. COMPARISON: None. FINDINGS: MRA: Normal flow-related enhancement in the distal internal carotid arteries, anterior, middle and posterior cerebral arteries, basilar and bilateral vertebral arteries. No aneurysm, focal stenosis or apparent occlusion. MRV: Normal enhancement in the bilateral sigmoid and transverse, straight and superior sagittal sinuses and their main intracranial branches. Asymmetrically small left transverse sinus probably developmental/anatomic. No abnormal filling defect to suggest thrombosis. Neck: Normal enhancement in the bilateral common, internal and external carotid arteries. No aneurysm or focal signal void to suggest significant stenosis. Carotid bifurcations have normal contour without significant plaque formation. Vertebral arteries appear patent bilaterally. IMPRESSION: 1. No significant intracranial stenosis. 2. No evidence of acute dural sinus thromboses. 3. No significant carotid stenosis (less than 50%) by NASCET criteria. Reference: Measurement of carotid stenosis is a ratio based on conventional angiographic data from the NASCET trials with the post stenotic internal carotid artery caliber minus the smallest caliber of the stenotic internal carotid as the numerator and normal post-stenotic internal carotid caliber as denominator. Report Dictated on --- Final --- Dictated: 05/22/2019 10:31 pm Dictating Physician: MD CLAIRE WENDELL Signed Date and Time: 05/22/2019 10:41 pm Signed by: MD CLAIRE WENDELL Transcribed Date and Time: 05/22/2019 10:40 [place], [place] [facility], [facility] Incoming Radiology Results From [facility] - 05/22/2019 10:42 PM EDT Patient Name: SONDRA BLANCO ---MRI--- Exam Date/Time 05/22/2019 22:25:30 EDT Exam MRA Head w/o Contrast Ordering Physician Shawna TEMPLETON JOHN C Accession Number [id number] CPT4 Codes 67063 () Reason For Exam headache Report MRI OF THE BRAIN WITHOUT AND WITH GADOLINIUM CLINICAL INDICATION: headache TECHNIQUE: Routine MRI of the brain without and with IV gadolinium. COMPARISON: None. FINDINGS: No apparent mass, mass effect, hemorrhage, midline shift or hydrocephalus. No acute infarct seen on diffusion weighted imaging. No pathologic extra-axial fluid collection. No pineal region or sellar masses. No cerebellar tonsillar herniation. No abnormal enhancement. IMPRESSION: 1. No acute intracranial findings. MRA AND MRV OF THE BRAIN. MRA OF THE NECK WITHOUT AND WITH GADOLINIUM CLINICAL INDICATION: headache TECHNIQUE: Routine MRA and MRV of the brain. Routine MRA of the neck without and with IV gadolinium. COMPARISON: None. FINDINGS: MRA: Normal flow-related enhancement in the distal internal carotid arteries, anterior, middle and posterior cerebral arteries, basilar and bilateral vertebral arteries. No aneurysm, focal stenosis or apparent occlusion. MRV: Normal enhancement in the bilateral sigmoid and transverse, straight and superior sagittal sinuses and their main intracranial branches. Asymmetrically small left transverse sinus probably developmental/anatomic. No abnormal filling defect to suggest thrombosis. Neck: Normal enhancement in the bilateral common, internal and external carotid arteries. No aneurysm or focal signal void to suggest significant stenosis. Carotid bifurcations have normal contour without significant plaque formation. Vertebral arteries appear patent bilaterally. IMPRESSION: 1. No significant intracranial stenosis. 2. No evidence of acute dural sinus thromboses. 3. No significant carotid stenosis (less than 50%) by NASCET criteria. Reference: Measurement of carotid stenosis is a ratio based on conventional angiographic data from the NASCET trials with the post stenotic internal carotid artery caliber minus the smallest caliber of the stenotic internal carotid as the numerator and normal post-stenotic internal carotid caliber as denominator. Report Dictated on --- Final --- Dictated: 05/22/2019 10:31 pm Dictating Physician: MD CLAIRE WENDELL Signed Date and Time: 05/22/2019 10:41 pm Signed by: MD CLAIRE WENDELL Transcribed Date and Time: 05/22/2019 10:40 [place], [place] MRA NECK W WO CONTRASTon [facility], [facility] Incoming Radiology Results From [facility] - 05/22/2019 10:42 PM EDT Patient Name: SONDRA BLANCO ---MRI--- Exam Date/Time 05/22/2019 22:25:30 EDT Exam MRA Neck w/ + w/o Contrast Ordering Physician Shawna TEMPLETON JOHN C Accession Number [id number] CPT4 Codes 14466 () Reason For Exam headache Report MRI OF THE BRAIN WITHOUT AND WITH GADOLINIUM CLINICAL INDICATION: headache TECHNIQUE: Routine MRI of the brain without and with IV gadolinium. COMPARISON: None. FINDINGS: No apparent mass, mass effect, hemorrhage, midline shift or hydrocephalus. No acute infarct seen on diffusion weighted imaging. No pathologic extra-axial fluid collection. No pineal region or sellar masses. No cerebellar tonsillar herniation. No abnormal enhancement. IMPRESSION: 1. No acute intracranial findings. MRA AND MRV OF THE BRAIN. MRA OF THE NECK WITHOUT AND WITH GADOLINIUM CLINICAL INDICATION: headache TECHNIQUE: Routine MRA and MRV of the brain. Routine MRA of the neck without and with IV gadolinium. COMPARISON: None. FINDINGS: MRA: Normal flow-related enhancement in the distal internal carotid arteries, anterior, middle and posterior cerebral arteries, basilar and bilateral vertebral arteries. No aneurysm, focal stenosis or apparent occlusion. MRV: Normal enhancement in the bilateral sigmoid and transverse, straight and superior sagittal sinuses and their main intracranial branches. Asymmetrically small left transverse sinus probably developmental/anatomic. No abnormal filling defect to suggest thrombosis. Neck: Normal enhancement in the bilateral common, internal and external carotid arteries. No aneurysm or focal signal void to suggest significant stenosis. Carotid bifurcations have normal contour without significant plaque formation. Vertebral arteries appear patent bilaterally. IMPRESSION: 1. No significant intracranial stenosis. 2. No evidence of acute dural sinus thromboses. 3. No significant carotid stenosis (less than 50%) by NASCET criteria. Reference: Measurement of carotid stenosis is a ratio based on conventional angiographic data from the NASCET trials with the post stenotic internal carotid artery caliber minus the smallest caliber of the stenotic internal carotid as the numerator and normal post-stenotic internal carotid caliber as denominator. Report Dictated on --- Final --- Dictated: 05/22/2019 10:31 pm Dictating Physician: MD CLAIRE WENDELL Signed Date and Time: 05/22/2019 10:41 pm Signed by: MD CLAIRE WENDELL Transcribed Date and Time: 05/22/2019 10:40 [place], [place] Patient Name: SONDRA BLANCO ---MRI--- Exam Date/Time 05/22/2019 22:25:30 EDT Exam MRA Neck w/ + w/o Contrast Ordering Physician Shawna TEMPLETON JOHN C Accession Number [id number] CPT4 Codes 46812 () Reason For Exam headache Report MRI OF THE BRAIN WITHOUT AND WITH GADOLINIUM CLINICAL INDICATION: headache TECHNIQUE: Routine MRI of the brain without and with IV gadolinium. COMPARISON: None. FINDINGS: No apparent mass, mass effect, hemorrhage, midline shift or hydrocephalus. No acute infarct seen on diffusion weighted imaging. No pathologic extra-axial fluid collection. No pineal region or sellar masses. No cerebellar tonsillar herniation. No abnormal enhancement. IMPRESSION: 1. No acute intracranial findings. MRA AND MRV OF THE BRAIN. MRA OF THE NECK WITHOUT AND WITH GADOLINIUM CLINICAL INDICATION: headache TECHNIQUE: Routine MRA and MRV of the brain. Routine MRA of the neck without and with IV gadolinium. COMPARISON: None. FINDINGS: MRA: Normal flow-related enhancement in the distal internal carotid arteries, anterior, middle and posterior cerebral arteries, basilar and bilateral vertebral arteries. No aneurysm, focal stenosis or apparent occlusion. MRV: Normal enhancement in the bilateral sigmoid and transverse, straight and superior sagittal sinuses and their main intracranial branches. Asymmetrically small left transverse sinus probably developmental/anatomic. No abnormal filling defect to suggest thrombosis. Neck: Normal enhancement in the bilateral common, internal and external carotid arteries. No aneurysm or focal signal void to suggest significant stenosis. Carotid bifurcations have normal contour without significant plaque formation. Vertebral arteries appear patent bilaterally. IMPRESSION: 1. No significant intracranial stenosis. 2. No evidence of acute dural sinus thromboses. 3. No significant carotid stenosis (less than 50%) by NASCET criteria. Reference: Measurement of carotid stenosis is a ratio based on conventional angiographic data from the NASCET trials with the post stenotic internal carotid artery caliber minus the smallest caliber of the stenotic internal carotid as the numerator and normal post-stenotic internal carotid caliber as denominator. Report Dictated on --- Final --- Dictated: 05/22/2019 10:31 pm Dictating Physician: MD CLAIRE WENDELL Signed Date and Time: 05/22/2019 10:41 pm Signed by: MD CLAIRE WENDELL Transcribed Date and Time: 05/22/2019 10:40 [place], [place] MRI BRAIN W WO CONTRASTon [facility], [facility] Incoming Radiology Results From [facility] - 05/22/2019 10:42 PM EDT Patient Name: SONDRA BLANCO ---MRI--- Exam Date/Time 05/22/2019 22:25:30 EDT Exam MRI Brain w/ + w/o Contrast Ordering Physician Shawna TEMPLETON JOHN C Accession Number [id number] CPT4 Codes 96537 () Reason For Exam headache Report MRI OF THE BRAIN WITHOUT AND WITH GADOLINIUM CLINICAL INDICATION: headache TECHNIQUE: Routine MRI of the brain without and with IV gadolinium. COMPARISON: None. FINDINGS: No apparent mass, mass effect, hemorrhage, midline shift or hydrocephalus. No acute infarct seen on diffusion weighted imaging. No pathologic extra-axial fluid collection. No pineal region or sellar masses. No cerebellar tonsillar herniation. No abnormal enhancement. IMPRESSION: 1. No acute intracranial findings. MRA AND MRV OF THE BRAIN. MRA OF THE NECK WITHOUT AND WITH GADOLINIUM CLINICAL INDICATION: headache TECHNIQUE: Routine MRA and MRV of the brain. Routine MRA of the neck without and with IV gadolinium. COMPARISON: None. FINDINGS: MRA: Normal flow-related enhancement in the distal internal carotid arteries, anterior, middle and posterior cerebral arteries, basilar and bilateral vertebral arteries. No aneurysm, focal stenosis or apparent occlusion. MRV: Normal enhancement in the bilateral sigmoid and transverse, straight and superior sagittal sinuses and their main intracranial branches. Asymmetrically small left transverse sinus probably developmental/anatomic. No abnormal filling defect to suggest thrombosis. Neck: Normal enhancement in the bilateral common, internal and external carotid arteries. No aneurysm or focal signal void to suggest significant stenosis. Carotid bifurcations have normal contour without significant plaque formation. Vertebral arteries appear patent bilaterally. IMPRESSION: 1. No significant intracranial stenosis. 2. No evidence of acute dural sinus thromboses. 3. No significant carotid stenosis (less than 50%) by NASCET criteria. Reference: Measurement of carotid stenosis is a ratio based on conventional angiographic data from the NASCET trials with the post stenotic internal carotid artery caliber minus the smallest caliber of the stenotic internal carotid as the numerator and normal post-stenotic internal carotid caliber as denominator. Report Dictated on --- Final --- Dictated: 05/22/2019 10:31 pm Dictating Physician: MD CLAIRE WENDELL Signed Date and Time: 05/22/2019 10:41 pm Signed by: MD CLAIRE WENDELL Transcribed Date and Time: 05/22/2019 10:40 [place], [place] Patient Name: SONDRA BLANCO ---MRI--- Exam Date/Time 05/22/2019 22:25:30 EDT Exam MRI Brain w/ + w/o Contrast Ordering Physician Shawna TEMPLETON, CARROL Elkins Accession Number [id number] CPT4 Codes 76033 () Reason For Exam headache Report MRI OF THE BRAIN WITHOUT AND WITH GADOLINIUM CLINICAL INDICATION: headache TECHNIQUE: Routine MRI of the brain without and with IV gadolinium. COMPARISON: None. FINDINGS: No apparent mass, mass effect, hemorrhage, midline shift or hydrocephalus. No acute infarct seen on diffusion weighted imaging. No pathologic extra-axial fluid collection. No pineal region or sellar masses. No cerebellar tonsillar herniation. No abnormal enhancement. IMPRESSION: 1. No acute intracranial findings. MRA AND MRV OF THE BRAIN. MRA OF THE NECK WITHOUT AND WITH GADOLINIUM CLINICAL INDICATION: headache TECHNIQUE: Routine MRA and MRV of the brain. Routine MRA of the neck without and with IV gadolinium. COMPARISON: None. FINDINGS: MRA: Normal flow-related enhancement in the distal internal carotid arteries, anterior, middle and posterior cerebral arteries, basilar and bilateral vertebral arteries. No aneurysm, focal stenosis or apparent occlusion. MRV: Normal enhancement in the bilateral sigmoid and transverse, straight and superior sagittal sinuses and their main intracranial branches. Asymmetrically small left transverse sinus probably developmental/anatomic. No abnormal filling defect to suggest thrombosis. Neck: Normal enhancement in the bilateral common, internal and external carotid arteries. No aneurysm or focal signal void to suggest significant stenosis. Carotid bifurcations have normal contour without significant plaque formation. Vertebral arteries appear patent bilaterally. IMPRESSION: 1. No significant intracranial stenosis. 2. No evidence of acute dural sinus thromboses. 3. No significant carotid stenosis (less than 50%) by NASCET criteria. Reference: Measurement of carotid stenosis is a ratio based on conventional angiographic data from the NASCET trials with the post stenotic internal carotid artery caliber minus the smallest caliber of the stenotic internal carotid as the numerator and normal post-stenotic internal carotid caliber as denominator. Report Dictated on --- Final --- Dictated: 05/22/2019 10:31 pm Dictating Physician: MD CLAIRE WENDELL Signed Date and Time: 05/22/2019 10:41 pm Signed by: MD CLAIRE WENDELL Transcribed Date and Time: 05/22/2019 10:40 [facility], [place] MRV HEAD W WO CONTRASTon Patient Name: SONDRA BLANCO ---MRI--- Exam Date/Time 05/22/2019 22:25:30 EDT Exam MRV Head Ordering Physician Shawna TEMPLETON CARROL Elkins Accession Number [id number] CPT4 Codes 74852 () Reason For Exam headache Report MRI OF THE BRAIN WITHOUT AND WITH GADOLINIUM CLINICAL INDICATION: headache TECHNIQUE: Routine MRI of the brain without and with IV gadolinium. COMPARISON: None. FINDINGS: No apparent mass, mass effect, hemorrhage, midline shift or hydrocephalus. No acute infarct seen on diffusion weighted imaging. No pathologic extra-axial fluid collection. No pineal region or sellar masses. No cerebellar tonsillar herniation. No abnormal enhancement. IMPRESSION: 1. No acute intracranial findings. MRA AND MRV OF THE BRAIN. MRA OF THE NECK WITHOUT AND WITH GADOLINIUM CLINICAL INDICATION: headache TECHNIQUE: Routine MRA and MRV of the brain. Routine MRA of the neck without and with IV gadolinium. COMPARISON: None. FINDINGS: MRA: Normal flow-related enhancement in the distal internal carotid arteries, anterior, middle and posterior cerebral arteries, basilar and bilateral vertebral arteries. No aneurysm, focal stenosis or apparent occlusion. MRV: Normal enhancement in the bilateral sigmoid and transverse, straight and superior sagittal sinuses and their main intracranial branches. Asymmetrically small left transverse sinus probably developmental/anatomic. No abnormal filling defect to suggest thrombosis. Neck: Normal enhancement in the bilateral common, internal and external carotid arteries. No aneurysm or focal signal void to suggest significant stenosis. Carotid bifurcations have normal contour without significant plaque formation. Vertebral arteries appear patent bilaterally. IMPRESSION: 1. No significant intracranial stenosis. 2. No evidence of acute dural sinus thromboses. 3. No significant carotid stenosis (less than 50%) by NASCET criteria. Reference: Measurement of carotid stenosis is a ratio based on conventional angiographic data from the NASCET trials with the post stenotic internal carotid artery caliber minus the smallest caliber of the stenotic internal carotid as the numerator and normal post-stenotic internal carotid caliber as denominator. Report Dictated on --- Final --- Dictated: 05/22/2019 10:31 pm Dictating Physician: MD CLAIRE WENDELL Signed Date and Time: 05/22/2019 10:41 pm Signed by: MD CLAIRE WENDELL Transcribed Date and Time: 05/22/2019 10:40 [facility], [place] [facility], [facility] Incoming Radiology Results From [facility] - 05/22/2019 10:42 PM EDT Patient Name: SONDRA BLANCO ---MRI--- Exam Date/Time 05/22/2019 22:25:30 EDT Exam MRV Head Ordering Physician Shawna TEMPLETON JOHN C Accession Number [id number] CPT4 Codes 25370 () Reason For Exam headache Report MRI OF THE BRAIN WITHOUT AND WITH GADOLINIUM CLINICAL INDICATION: headache TECHNIQUE: Routine MRI of the brain without and with IV gadolinium. COMPARISON: None. FINDINGS: No apparent mass, mass effect, hemorrhage, midline shift or hydrocephalus. No acute infarct seen on diffusion weighted imaging. No pathologic extra-axial fluid collection. No pineal region or sellar masses. No cerebellar tonsillar herniation. No abnormal enhancement. IMPRESSION: 1. No acute intracranial findings. MRA AND MRV OF THE BRAIN. MRA OF THE NECK WITHOUT AND WITH GADOLINIUM CLINICAL INDICATION: headache TECHNIQUE: Routine MRA and MRV of the brain. Routine MRA of the neck without and with IV gadolinium. COMPARISON: None. FINDINGS: MRA: Normal flow-related enhancement in the distal internal carotid arteries, anterior, middle and posterior cerebral arteries, basilar and bilateral vertebral arteries. No aneurysm, focal stenosis or apparent occlusion. MRV: Normal enhancement in the bilateral sigmoid and transverse, straight and superior sagittal sinuses and their main intracranial branches. Asymmetrically small left transverse sinus probably developmental/anatomic. No abnormal filling defect to suggest thrombosis. Neck: Normal enhancement in the bilateral common, internal and external carotid arteries. No aneurysm or focal signal void to suggest significant stenosis. Carotid bifurcations have normal contour without significant plaque formation. Vertebral arteries appear patent bilaterally. IMPRESSION: 1. No significant intracranial stenosis. 2. No evidence of acute dural sinus thromboses. 3. No significant carotid stenosis (less than 50%) by NASCET criteria. Reference: Measurement of carotid stenosis is a ratio based on conventional angiographic data from the NASCET trials with the post stenotic internal carotid artery caliber minus the smallest caliber of the stenotic internal carotid as the numerator and normal post-stenotic internal carotid caliber as denominator. Report Dictated on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 [facility] 02-12-2023 23:30-0400 Systolic Blood Pressure Non-Invasive 137 1 NONE [facility] 02-12-2023 23:16-0400 Diastolic Blood Pressure Non-Invasive 90 1 NONE [facility] 02-12-2023 23:16-0400 Heart rate 72 /min NONE [facility] 02-12-2023 23:16-0400 Systolic Blood Pressure Non-Invasive 134 1 NONE [facility] 02-12-2023 23:02-0400 Heart rate 87 /min NONE [facility] 02-12-2023 22:48-0400 Body temperature 96.08 [degF] NONE [facility] 02-12-2023 22:45-0400 Respiratory Rate - Anes 0 br/min NONE [facility] 02-12-2023 22:40-0400 Respiratory Rate - Anes 12 br/min NONE [facility] 02-12-2023 22:35-0400 Respiratory Rate - Anes 16 br/min NONE [facility] 02-12-2023 22:30-0400 Body temperature 95.67 [degF] NONE [facility] 02-12-2023 22:25-0400 Body temperature 95.45 [degF] NONE [facility] 02-12-2023 22:20-0400 Body temperature 95.43 [degF] NONE [facility] 02-12-2023 20:29-0400 Body temperature 96.98 [degF] NONE [facility] 02-12-2023 20:29-0400 Heart rate 78 /min NONE [facility] 02-12-2023 20:29-0400 Respiratory rate 21 /min NONE [facility] 02-12-2023 17:27-0400 Body height 167.6 cm NONE [facility] 02-12-2023 17:27-0400 Body temperature 98.06 [degF] NONE [facility] 02-12-2023 17:27-0400 Body weight 106.8 kg NONE [facility] 02-12-2023 17:27-0400 Heart rate 79 /min NONE [facility] 02-07-2023 19:37-0400 Body temperature 98.24 [degF] DR INDIA TUTTLE MD [facility] 02-07-2023 19:37-0400 Diastolic Blood Pressure Non-Invasive [address] INDIA TUTTLE MD [facility] 02-07-2023 19:37-0400 Heart rate 80 /min DR INDIA TUTTLE MD [facility] 02-07-2023 19:37-0400 Respiratory rate 20 /min DR INDIA TUTTLE MD [facility] 02-07-2023 19:37-0400 Systolic Blood Pressure Non-Invasive [address] INDIA TUTTLE MD [facility] 02-07-2023 17:00-0400 Body temperature 98.42 [degF] DR INDIA TUTTLE MD [facility] 02-07-2023 17:00-0400 Diastolic Blood Pressure Non-Invasive [address] INDIA TUTTLE MD [facility] 02-07-2023 17:00-0400 Heart rate 89 /min DR INDIA TUTTLE MD [facility] 02-07-2023 17:00-0400 Respiratory rate 16 /min DR INDIA TUTTLE MD [facility] 05-31-2023 17:00-0400 Systolic Blood Pressure Non-Invasive [address] INDIA TUTTLE MD [facility] 12-13-2022 15:09-0400 Body temperature 101.41 [degF] Cresencio Athy PA-C Work Phone: [facility] 12-13-2022 15:09-0400 Diastolic blood pressure 88 mm[Hg] Cresencio Athy PA-C Work Phone: [facility] 12-13-2022 15:09-0400 Heart rate 120 /min Cresencio Athy PA-C Work Phone: [facility] 12-13-2022 15:09-0400 Respiratory rate 19 /min Cresencio Athy PA-C Work Phone: [facility] 12-13-2022 15:09-0400 SaO2% (BldA) [Mass fraction] 98 % Cresencio Athy PA-C Work Phone: [facility] 12-13-2022 15:09-0400 Systolic blood pressure 150 mm[Hg] Cresencio Athy PA-C Work Phone: [facility] 05-26-2019 21:00-0400 BP Diastolic 81 mm[Hg] [facility] , [place] 05-26-2019 21:00-0400 BP Systolic 124 mm[Hg] [facility] , [place] 05-26-2019 21:00-0400 Pulse (Heart Rate) 81 /min [facility], [place] 05-26-2019 21:00-0400 Pulse Oximetry 100 % [facility] , [place] 05-26-2019 17:35-0400 Respiratory Rate 18 /min [facility], [place] 05-26-2019 15:11-0400 BMI (Body Mass Index) 37.93 kg/m2 [facility], [place] 05-26-2019 15:11-0400 Body Temperature 97.9 [degF] [facility], [place] 05-26-2019 15:11-0400 Body [facility] 106.59 [facility] [place] 05-26-2019 15:11-0400 Height 167.6 cm [facility] [place] 05-25-2019 09:05-0400 Body Temperature 99.1 [degF] [facility] [place] 05-25-2019 09:05-0400 BP Diastolic 79 mm[Hg] [facility], [place] 05-25-2019 09:05-0400 BP Systolic 121 mm[Hg] [facility], [place] 05-25-2019 09:05-0400 Pulse (Heart Rate) 70 /min [facility] [place], [place] 05-25-2019 09:05-0400 Pulse Oximetry 98 % [facility], [place] 05-25-2019 09:05-0400 Respiratory Rate 18 /min [facility] [place], [place] 05-24-2019 06:15-0400 BMI (Body Mass Index) 37.12 kg/m2 [facility] [place], [place] 05-24-2019 06:15-0400 Body weight 104.33 kg [facility], [place] 05-22-2019 18:34-0400 Height 167.6 cm [place], [place] Encounters Encounter Date Encounter Type Care Provider Facility Start: 06-12-2024 End: 06-12-2024 Emergency department patient visit NONE PHYSICIAN Facility:[facility] Start: 06-12-2024 End: 06-12-2024 E-mail encounter from caregiver Chula Nicolas MD Work Phone: [facility] Start: 06-12-2024 End: 06-12-2024 Subsequent hospital visit by physician Billy Alexandra PA-C Work Phone: [id number] Comment on above: IIH (idiopathic intr acranial hypertension) [G93.2] Start: 06-12-2024 End: 06-12-2024 Telemedicine consultation with patient Chula Nicolas MD Work Phone: [facility] Start: 06-12-2024 End: 06-12-2024 ambulatory Chula Nicolas MD Work Phone: [facility] Comment on above: Transvenous Sinus St ent Instructions for July transvenous sinus st enosis 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); Intracranial hypertension Start: 05-21-2024 End: 05-21-2024 Telephone encounter Chula Nicolas MD Work Phone: [facility] Comment on above: Appointment (Endovas cular Referral); Future Appointment (New Patient ESTHER Nicolas) Appointment Start: 05-20-2024 End: 05-20-2024 ambulatory Allegra Colón MD Work Phone: Ophthalmology Comment on above: IIH (idiopathic intr acranial hypertension) (Primary Dx); Pulsatile tinnitus Start: 05-20-2024 End: 05-20-2024 Telemedicine consultation with patient Allegra Colón MD Work Phone: Ophthalmology Start: 05-15-2024 End: 05-15-2024 Subsequent hospital visit by physician [place] [employer] Work Phone: MRI Q Comment on above: IIH (idiopathic intr acranial hypertension) [G93.2] Start: 05-15-2024 End: 05-21-2024 ambulatory Allegra Colón MD Work Phone: Ophthalmology Comment on above: MRV Start: 05-15-2024 End: 05-21-2024 E-mail encounter from caregiver Allegra Colón MD Work Phone: Ophthalmology Start: 05-05-2024 End: 05-05-2024 Telephone encounter Will Eldridge RN MRI Q Comment on above: Radiology Pre Proced ure Instructions Start: 04-27-2024 End: 04-27-2024 ambulatory SPENCER NUNEZ Facility:[facility] Start: 04-27-2024 End: 04-27-2024 Patient encounter procedure Adwoa Mosley APRN.CNP Work Phone: [facility] Comment on above: Injury of left wrist , initial encounter (Primary Dx) Start: 04-21-2024 ambulatory Silvestre villalpando PA-C Work Phone: [facility] Comment on above: Scheduling. Start: 04-17-2024 End: 04-17-2024 ambulatory SILVESTRE JUSTICE Facility:[facility] Start: 04-17-2024 End: 04-17-2024 Patient encounter procedure Silvestre Justice PA-C Work Phone: [facility] Comment on above: IIH (idiopathic intr acranial hypertension) (Primary Dx) Start: 03-26-2024 End: 03-26-2024 ambulatory ALLEGRA COLÓN Facility:[facility] Start: 03-26-2024 End: 03-26-2024 ambulatory SPENCER NUNEZ Facility:[facility] Start: 03-26-2024 End: 03-26-2024 Patient encounter procedure Allegra Colón MD Work Phone: Ophthalmology Comment on above: IIH (idiopathic intr acranial hypertension) (Primary Dx); Other localized visual field defect, bilateral; Pulsatile tinnitus; History of metabolic acidosis; Rhinorrhea Start: 03-25-2024 End: 03-25-2024 ambulatory SPENCER NUNEZ Facility:[facility] Start: 03-25-2024 End: 03-25-2024 Patient encounter procedure Adwoa Mosley APRN.CNP Work Phone: [facility] Comment on above: Acute otitis externa of left ear, unspecified type (Primary Dx); Otorrhea of left ear Start: 03-10-2024 End: 03-10-2024 ambulatory SPENCER NUNEZ Facility:[facility] Start: 03-10-2024 End: 03-10-2024 Patient encounter procedure Spencer Nunez MD Work Phone: Ophthalmology Comment on above: Idiopathic intracran ial hypertension (Primary Dx); Iris transillumination of left eye Start: 02-20-2024 Emergency department patient visit KEMAR MANTILLA Facility:[facility] Start: 02-19-2024 ambulatory Marianela Haji RN [employer] Start: 02-19-2024 Patient encounter procedure Marianela Haji RN NURSE [employer] Comment on above: Clinical Update Start: 02-09-2024 End: 02-09-2024 Emergency department patient visit DR JOHN CORDOVA MD [facility] Start: 01-28-2024 End: 01-28-2024 Emergency department patient visit ROC BURT MD [facility] Start: 01-23-2024 End: 01-23-2024 ambulatory KEMAR MANTILLA Facility:[facility] Start: 01-08-2024 End: 01-08-2024 ambulatory DANIELLE HUNTER Facility:[facility] Start: 01-08-2024 End: 01-08-2024 Patient encounter procedure Ayleen Pichardo Work Phone: Podiatry Comment on above: Sprain of left ankle , unspecified ligament, initial encounter (Primary Dx); Acute left ankle pain; Foot pain, left; Plantar fasciitis of left foot Start: 12-13-2023 End: 12-13-2023 Subsequent hospital visit by physician J[facility] Cristina Work Phone: Radiology Comment on above: Acute left ankle alaina n [M25.572] Start: 12-13-2023 End: 12-13-2023 ambulatory KEMAR MANTILLA Facility:[facility] Start: 12-13-2023 End: 12-13-2023 Patient encounter procedure Danielle Hunter CABIN OUTFITTER.DIE STORAGE CLERK Work Phone: [facility] Comment on above: Acute left ankle alaina n (Primary Dx); Foot pain, left; Fall, initial encounter Start: 09-13-2023 End: 09-13-2023 ambulatory ELIDA REYNOLDS Facility:[facility] Start: 05-31-2023 End: 05-31-2023 ambulatory [facility] Facility:A Start: 05-31-2023 End: 05-31-2023 Encounter for other specified special examinations ANGELICA VALDES CABIN OUTFITTER-DIE STORAGE CLERK Facility:A Start: 05-31-2023 End: 05-31-2023 Patient encounter procedure ANGELICA VALDES CABIN OUTFITTER-DIE STORAGE CLERK [facility] Start: 05-29-2023 End: 05-29-2023 ambulatory NONE PHYSICIAN Facility:B Start: 05-29-2023 End: 05-29-2023 Patient encounter procedure CALISTA MAS MD [facility] Start: 05-23-2023 End: 05-23-2023 ambulatory NONE PHYSICIAN Facility:A Start: 05-23-2023 End: 05-23-2023 Patient encounter procedure CALISTA MAS MD [facility] Start: 05-04-2023 End: 05-04-2023 Patient encounter procedure Judi Flores MD Work Phone: Ophthalmology Comment on above: IIH (idiopathic intr acranial hypertension) (Primary Dx); Papilledema associated with increased intracranial pressure; Migraine with aura and without status migrainosus, not intractable Start: 03-12-2023 End: 03-12-2023 ambulatory NONE PHYSICIAN Facility:A Start: 03-12-2023 End: 03-12-2023 Patient encounter procedure CALISTA MAS MD [facility] Start: 03-05-2023 End: 03-05-2023 Emergency department patient visit ROC BURT MD [facility] Start: 03-05-2023 End: 03-05-2023 Patient encounter procedure Adwoa Mosley APRN.DIE STORAGE CLERK Work Phone: [facility] Comment on above: Severe pain (Primary Dx) Start: 02-12-2023 End: 02-13-2023 SAME DAY STAY NONE PHYSICIAN [facility] Start: 02-12-2023 End: 02-12-2023 Patient encounter procedure RENEE MYERS APRN [facility] Start: 02-12-2023 End: 03-08-2024 Lab-Standing Order RENEE MYERS CABIN OUTFITTER [facility] Start: 02-09-2023 End: 02-09-[address] DELROY ZHOU MD [facility] Start: 02-07-2023 End: 02-07-2023 Emergency department patient visit DR INDIA TUTTLE MD [facility] Start: 02-06-2023 End: 02-06-2023 Patient encounter procedure NONE PHYSICIAN [facility] Start: 12-13-2022 End: 12-13-2022 Patient encounter procedure Cresencio Conrad PA-C Work Phone: [facility] Comment on above: Near syncope (Primar y Dx); Fever, unspecified fever cause Start: 11-07-2022 End: 11-07-2022 Patient encounter procedure KWAME VARELA CABIN OUTFITTER-CNM [facility] Start: 05-26-2019 End: 05-26-2019 Emergency department patient visit Gene Wiley Work Phone: [facility] Emergency Dept Comment on above: Acute nonintractable headache, unspecified headache type (Primary Dx) Start: 05-22-2019 End: 05-25-2019 Evaluation and management of inpatient Serafin Long Work Phone: [facility] 3W TELEMETRY Start: 07-29-2018 Patient encounter procedure [facility] Start: 03-22-2017 End: 03-22-2017 Emergency department patient visit LOUIS ASCENCIO Facility:[facility] Start: 12-16-2007 Patient encounter status Cresencio Conrad PA-C Work Phone: [facility] Work Phone: Procedures Date Procedure Procedure Detail Performing Clinician Start: 06-12-2024 Cell count misc body fluids w/differential count Silvestre Delroy [employer] Work Phone: Start: 06-12-2024 CSF ROUT ANALYSIS Silvestre Delroy [employer] Work Phone: Start: 06-12-2024 Cul bact xcpt urine blood/stool aerobic isol Silvestre Delroy [employer] Work Phone: Start: 06-12-2024 Glucose body fluid o ther than blood Silvestrereza [employer] Work Phone: Start: 05-15-2024 Mra head w/o & w/con trast material Allegra Colón MD Work Phone: Start: 03-26-2024 End: 03-26-2024 Visual field xm uni/bi w/interp extended exam Allegra Colón MD Work Phone: Start: 03-10-2024 Fundus photography w/interpretation & report Spencer Nunez MD Work Phone: Start: 03-10-2024 End: 03-10-2024 Visual field xm uni/bi w/interp extended exam Spencer Nunez MD Work Phone: Start: 12-13-2023 Radex ankle complete minimum 3 views Danielle Hunter CABIN OUTFITTER.DIE STORAGE CLERK Work Phone: Start: 05-04-2023 Fundus photography w/interpretation & report Judi Flores MD Work Phone: Start: 05-04-2023 Visual field xm uni/ bi w/interp extended exam Judi Flores MD Work Phone: Start: 02-12-2023 Laparoscopic right salpingo-oophorectomy CALISTA MAS MD Start: 03-15-2021 Dilation and curettage CALISTA MAS MD Comment on above: Miscarriage Start: 05-25-2019 Assay of magnesium Carrol Templeton Work Phone: Start: 05-25-2019 BASIC METABOLIC PANE L W/ REFLEX TO MG FOR LOW K Carrol Templeton Work Phone: Start: 05-25-2019 Blood count complete auto&auto difrntl wbc Carrol Templeton Work Phone: Start: 05-24-2019 Urnls dip stick/tabl et rgnt auto w/o microscopy Marco Luciano Work Phone: Start: 05-24-2019 Assay of magnesium Carrol Blevinsshaunlenora Work Phone: Start: 05-24-2019 BASIC METABOLIC PANE L W/ REFLEX TO MG FOR LOW K Carrol Templeton Work Phone: Start: 05-23-2019 ADD ON LAB TEST Altaf Mas Work Phone: Start: 05-23-2019 Cell count misc body fluids w/differential count Carrol Templeton Work Phone: Start: 05-23-2019 Glucose body fluid o ther than blood Carrol Blevinsshaunlenora Work Phone: Start: 05-23-2019 Protein total xcpt refractometry oth src Carrol Templeton Work Phone: Start: 05-23-2019 Smr prim src gram/gi emsa stain bct fungi/cell Carrol Blevnisshaunlenora Work Phone: Start: 05-23-2019 MENINGITIS/ENCEPHALI TIS PANEL, CSF Cary S Deoras Work Phone: Start: 05-23-2019 XA SPECIAL ANGIOGRAP HY PROCEDURE Carlitos Latif Work Phone: Start: 05-23-2019 Assay of magnesium Carrol Blevinsshaunlenora Work Phone: Start: 05-23-2019 BASIC METABOLIC PANE L W/ REFLEX TO MG FOR LOW K Carrol Morton Tri Work Phone: Start: 05-23-2019 Blood count complete auto&auto difrntl wbc Carrol Morton Tri Work Phone: Start: 05-23-2019 Hemoglobin glycosylated a1c Carrol Morton Tri Work Phone: Start: 05-23-2019 Lipid panel Carrol Selene farris Work Phone: Start: 05-22-2019 Mra head w/o & w/con trast material Carrol ElkinsChrista Templeton Work Phone: Start: 05-22-2019 Mra head w/o contrst material Carrol Morton Tri Work Phone: Start: 05-22-2019 Mra neck w/o &w/cont rast material Carorl ElkinsChrista Templeton Work Phone: Start: 05-22-2019 Mri brain brain stem w/o w/contrast material Carrol Selene Templeton Work Phone: Start: 05-22-2019 ADD ON LAB TEST Carrol ElkinsChrista Templeton Work Phone: Start: 05-22-2019 CANNABINOID, URINE, SCREENING, CRITICAL CARE Carrol ElkinsChrista Templeton Work Phone: Start: 05-22-2019 Drug screen class list a Carrol ElkinsChrista Templeton Work Phone: Start: 05-22-2019 Urine test visual color cmprsn meths Carrol Selene eTmpleton Work Phone: Start: 05-22-2019 Assay of magnesium Carrol Selene Templeton Work Phone: Start: 05-22-2019 Blood count complete auto&auto difrntl wbc Carrol ElkinsChrista Templeton Work Phone: Start: 05-22-2019 Prothrombin time Carrol Brittni Templeton Work Phone: section KWAEM MURILLO CABIN OUTFITTER-CNM section CALISTA JARQUIN MD Comment on above: Cholecystectomy KWAME ARCINIEGA PSON CABIN OUTFITTER-CNM Hernia of abdominal cavity (disorder) KWAME VARELA CABIN OUTFITTER-CNM Repair of umbilical hernia Demetri MAS MD Tympanostomy CALISTA Pemberton Plan of Treatment Date Care Activity Detail Author Start: 02-13-2025 End: 02-13-2025 Patient encounter procedure 02/13/2025 9:00 AM EDT Office Visit [facility] Ophthalmology [address] [place] [address] [address] [place] [address] Allegra Colón MD [address] [place], [place] [id number] Return for dr mcelroy next available, II evaluation. Ophthalmology Comment on above: Return for dr mcelroy next available, II evaluation. Start: 09-26-2024 End: 09-26-2024 ambulatory 09/26/2024 1:00 PM EST [place] [facility] Endocrinology [place] [address] [place] [address] Yadi Bañuelos [place] [address] [place], [place] [id number] Weight loss Endocrinology [place] Comment on above: Weight loss Start: 09-13-2024 Annual PCP Team Dust Control Engineer shira Disease Visit Annual PCP Team Chronic Disease Visit [facility] Start: 09-12-2024 End: 09-12-2024 ambulatory 09/12/2024 10:40 AM EST [facility] Endocrinology [place] [address] [place] [address] Yadi Bañuelos [place] [address] [place], [place] [id number] Weight loss Endocrinology [place] Comment on above: Weight loss Start: 08-28-2024 End: 08-28-2024 ambulatory 08/28/2024 10:00 AM EST [facility] NEUROLOGY [address] [place] [address] Meena Murray APRN.DIE STORAGE CLERK [address] [place] [address] Dx: Hospital DC post op Est patient vv per haiku sent by mary choudhury 06/12/24 NEUROLOGY Comment on above: Dx: Hospital DC post op Est patient vv per haiku sent by mary choudhury 06/12/24 Start: 07-29-2024 End: 07-29-2024 Admission to same day surgery center 07/29/2024 8:00 AM EST - 07/29/2024 10:15 AM EST Surgery [facility] [address] [place] [address] Chula Nicolas MD [address] [place] [address] SELECTIVE CATHETER PLACEMENT EACH INTRACRANIAL BRANCH OF THE INTERNAL CAROTID OR VERTEBRAL ARTERIES UNILATERAL W/ ANGIOGRAPHY OF THE SELECTED VESSEL CIRCULATION AND ALL ASSOCIATED RADIOLOGICAL SUPERVISION AND INTERPRETATION Angio Comment on above: SELECTIVE CATHETER P LACEMENT EACH INTRACRANIAL BRANCH OF THE INTERNAL CAROTID OR VERTEBRAL ARTERIES UNILATERAL W/ ANGIOGRAPHY OF THE SELECTED VESSEL CIRCULATION AND ALL ASSOCIATED RADIOLOGICAL SUPERVISION AND INTERPRETATION Start: 07-29-2024 End: 07-29-2024 Slctv cath intrcrnl brnch angio intrl carot/vert SELECTIVE CATHETER PLACEMENT EACH INTRACRANIAL BRANCH OF THE INTERNAL CAROTID OR VERTEBRAL ARTERIES UNILATERAL W/ ANGIOGRAPHY OF THE SELECTED VESSEL CIRCULATION AND ALL ASSOCIATED RADIOLOGICAL SUPERVISION AND INTERPRETATION IIH (idiopathic intracranial hypertension) Papilledema associated with increased intracranial pressure 07/29/2024 8:00 AM EST ANGIO HB6 Start: 07-29-2024 Subsequent hospital visit by physician Angio Comment on above: IIH (idiopathic intr acranial hypertension) [G93.2], Papilledema associated with increased intracranial pressure [H47.11] Start: 07-29-2024 End: 07-29-2024 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cra w/balo angiop if pfrmd TRANSCATH PLCMNT OF INTRACRANIAL INTRAVASCULAR STENT IIH (idiopathic intracranial hypertension) Papilledema associated with increased intracranial pressure 07/29/2024 8:00 AM EST ANGIO HB6 Start: 07-25-2024 End: 10-24-2024 ASPIRIN/CLOPIDOGREL RESISTANCE ASPIRIN/CLOPIDOGREL RESISTANCE Lab Routine IIH (idiopathic intracranial hypertension) Papilledema associated with increased intracranial pressure Expected: 07/25/2024, Expires: 10/24/2024 [facility] Comment on above: Expected: 07/25/2024 , Expires: 10/24/2024 Start: 07-25-2024 End: 10-24-2024 Basic metabolic 2000 panel - Serum or Plasma BASIC METABOLIC PANEL Lab Routine IIH (idiopathic intracranial hypertension) Papilledema associated with increased intracranial pressure Expected: 07/25/2024, Expires: 10/24/2024 [facility] Comment on above: Expected: 07/25/2024 , Expires: 10/24/2024 Start: 07-25-2024 End: 10-24-2024 CBC panel - Blood by Automated count COMPLETE BLOOD COUNT Lab Routine IIH (idiopathic intracranial hypertension) Papilledema associated with increased intracranial pressure Expected: 07/25/2024, Expires: 10/24/2024 [facility] Work Phone: Comment on above: Expected: 07/25/2024 , Expires: 10/24/2024 Start: 07-25-2024 End: 10-24-2024 Choriogonadotropin.beta subunit [Units/volume] in Serum or Plasma HCG QUANTITATIVE Lab Routine IIH (idiopathic intracranial hypertension) Papilledema associated with increased intracranial pressure Expected: 07/25/2024, Expires: 10/24/2024 [facility] Comment on above: Expected: 07/25/2024 , Expires: 10/24/2024 Start: 07-25-2024 End: 10-24-2024 CONFIRM BLOOD TYPE CONFIRM BLOOD TYPE Blood Bank Routine IIH (idiopathic intracranial hypertension) Papilledema associated with increased intracranial pressure Expected: 07/25/2024, Expires: 10/24/2024 [facility] Comment on above: Expected: 07/25/2024 , Expires: 10/24/2024 Start: 07-25-2024 End: 10-24-2024 TYPE AND SCREEN,30 DAY TYPE AND SCREEN,30 DAY Blood Bank Routine IIH (idiopathic intracranial hypertension) Papilledema associated with increased intracranial pressure Expected: 07/25/2024, Expires: 10/24/2024 [facility] Comment on above: Expected: 07/25/2024 , Expires: 10/24/2024 Start: 07-25-2024 End: 07-25-2024 ambulatory 07/25/2024 11:30 AM EST Results Only [facility] [address] [place] [address] Pre Op [facility] Comment on above: Pre Op Start: 07-25-2024 End: 07-25-2024 Anesthesia consultation 07/25/2024 10:40 AM EST PAT Pre Anesthesia [address] [place] [address] 1, [facility] [address] [place] [address] Pre Op Pre Anesthesia Comment on above: Pre Op Start: 07-15-2024 End: 07-15-2024 ambulatory 07/15/2024 10:45 AM EST [facility] [place] [address] [place] [address] [place] [address] [place] [address] Lopez (next available is fine) [facility] [place] Comment on above: ASAPwith Dr. Lopez (next available is fine) Start: 07-02-2024 End: 07-02-2024 Patient encounter procedure 07/02/2024 11:30 AM EDT Office Visit [facility] Ophthalmology [address] [address] Allegra Colón MD [address] [place] [address] Please schedule 3 month return to clinic visit, per Dr. Colón Ophthalmology Comment on above: Please schedule 3 mo nth return to clinic visit, per Dr. Colón Start: 06-12-2024 End: 06-12-2024 Diagnostic lumbar spinal puncture SPINAL PUNCTURE LUMBAR DIAGNOSTIC IIH (idiopathic intracranial hypertension) 06/12/2024 11:20 AM EDT ANGIO HB6 Start: 06-12-2024 End: 06-12-2024 ambulatory 06/12/2024 9:40 AM EDT [facility] [address] [place] [address] Chula Nicolas MD [address] [place] [address] [facility] Comment on above: II Start: 05-20-2024 End: 05-20-2024 ambulatory 05/20/2024 7:00 AM EDT [facility] Ophthalmology [address] [address] Allegra Colón MD [address] [place] [address] MRI results VV Ophthalmology Comment on above: MRI results VV Start: 05-20-2024 End: 05-20-2024 Patient encounter procedure 05/20/2024 7:00 AM EDT Office Visit [facility] Ophthalmology [address] [address] Allegra Colón MD [address] [place] [id number] MRI results VV Ophthalmology Comment on above: MRI results VV Start: 05-15-2024 End: 05-15-2024 Patient encounter procedure MRI Q Comment on above: MRV BRAIN WO/W IVCON Start: 05-11-2024 Covid-19 Vaccine ( season) Covid-19 Vaccine ( season) [facility] Start: 05-11-2024 Covid-19 Vaccine ( season) Covid-19 Vaccine ( season) [facility] Start: 05-11-2024 Influenza vaccination [facility] Start: 04-17-2024 End: 04-17-2024 Patient encounter procedure 04/17/2024 9:30 AM EDT Office Visit [facility] [address] [id number] Silvestre Justice PA-C [address] [phone] pseudotumor cerebri; headaches [facility] Comment on above: pseudotumor cerebri; headaches Start: 03-26-2024 End: 06-25-2024 Basic metabolic 2000 panel - Serum or Plasma [facility] Comment on above: Expected: 03/26/2024 , Expires: 06/25/2024 Start: 03-26-2024 End: 03-26-2024 Patient encounter procedure 03/26/2024 8:30 AM EDT Office Visit [facility] [address] [address] Allegra Colón MD [address] [place] [address] Colón next available, IIH evaluation. Being referred by Dr. Spencer Nunez Ophthalmology Comment on above: Return for Dr. Colón next available, IIH evaluation. Being referred by Dr. Spencer Nunez Start: 02-20-2024 End: 02-20-2024 Patient encounter procedure 02/20/2024 8:15 AM EDT Office Visit [facility] [address] [place] [address] [place] [address] [place] [address] pain/pressure in eye/pseudotumor - Dr. Flores patient Ophthalmology Comment on above: pain/pressure in eye /pseudotumor - Dr. Flores patient Start: 01-24-2024 End: 01-24-2024 ambulatory 01/24/2024 2:00 PM EDT OT/PT/Speech Visit [facility] [address] [place] [address] [id number] Deep Sharpe, PT [address] [place], [place] [phone] Sprain of left ankle, unspecified ligament, initial encounter [S93.402A] [facility] Comment on above: Sprain of left ankle , unspecified ligament, initial encounter [S93.402A] Start: 05-11-2023 Covid-19 Vaccine ( season) Covid-19 Vaccine ( season) [facility] Start: 05-11-2023 Influenza vaccination C [facility] Start: 09-14-2020 PAP TESTING PAP TESTING [facility] Start: 09-14-2020 Screening for malign ant neoplasm of cervix Pap Testing [facility] Start: 05-25-2020 Creatinine monitoring Creatinine mon [place], [place] Start: 05-25-2020 Potassium monitoring Potassium monit [place], [place] Start: 05-23-2020 Creatinine monitoring Creatinine mon [place], [place] Start: 05-23-2020 Potassium monitoring Potassium monit [place], [place] Start: 05-29-2019 End: 05-29-2019 Office Visit 05/29/2019 Office Visit Internal Medicine Maco Person MD [address] [place] [address] [facility] Internal Medicine [place] Start: 05-11-2019 Influenza vaccination Flu vaccine (# 1) [place], [place] Start: 09-14-2018 Screening for malign ant neoplasm of cervix Cervical Cancer Screening [facility] Start: 11-10-2017 HPV TESTING HPV TESTING [facility] Start: 11-10-2017 Screening for malign ant neoplasm of cervix HPV Testing [facility] Start: 11-10-2008 Cervical cancer screen Cervical canc er screen [place], [place] Start: 11-10-2005 ANNUAL PCP TEAM WORK[employer]CE [employer]ANNING ANALYST SHIRA DISEASE VISIT ANNUAL PCP TEAM CHRONIC DISEASE VISIT [facility] Start: 11-10-2005 BP CONTROLLED (<130/80) BP CONTROLLE D (<130/80) [facility] Start: 11-10-2005 HEPATITIS C SCREENING HEPATITIS C [facility] Start: 11-10-2005 Hepatitis C screening Hepatitis C [facility] Start: 11-10-2005 HIV SCREENING HIV SCREENING [facility] Start: 11-10-2005 HIV screening HIV Screening [facility] Start: 11-07-2005 HEPATITIS B (2 of 3 - 3-dose series) HEPATITIS B (2 of 3 - 3-dose series) [facility] Start: 11-07-2005 Hepatitis B Vaccine (2 of 3 - 3-dose series) Hepatitis B Vaccine (2 of 3 - 3-dose series) [facility] Start: 11-17-2003 Urine microalbumin profile [facility] Start: 11-10-2002 HIV screen HIV screen [place], [place] Start: 11-10-2000 Varicella Vaccine (1 of 2 - 13+ 2-dose series) Varicella Vaccine (1 of 2 - 13+ 2-dose series) [place], [place] Start: 11-10-1998 DTaP/Tdap/Td vaccine (5 - Tdap) DTaP/Tdap/Td vaccine (5 - Tdap) [place], [place] Start: 05-13-1988 COVID-19 VACCINE (#1) COVID-19 VACCI NE (#1) [facility] End: 05-23-2019 AFB culture AFB culture Microbiology Routine Once for 1 Occurrences starting 05/23/2019 until 05/23/2019 [place] Comment on above: Once for 1 Occurrenc es starting 05/23/2019 until 05/23/2019 AFB culture AFB culture Microbiology Routine 05/23/2019 5:28 PM EDT [place] End: 05-23-2019 AFB Stain AFB Stain Microbiology Routine Once for 1 Occurrences starting 05/23/2019 until 05/23/2019 [place] Comment on above: Once for 1 Occurrenc es starting 05/23/2019 until 05/23/2019 AFB Stain AFB Stain Microb iology Routine 05/23/2019 5:28 PM EDT [place], [place] Bacteria identified in Cerebral spinal fluid by Culture CSF CULTURE AND STAIN Microbiology Routine IIH (idiopathic intracranial hypertension) 06/12/2024 12:06 PM EDT [facility] Work Phone: Basic Metabolic Pane l w/ Reflex to MG Basic Metabolic Panel w/ Reflex to MG Lab Routine Daily until discontinued starting 05/23/2019, 3 completed [place], [place] Comment on above: Daily until disconti nued starting 05/23/2019, 3 completed Beta-2 transferrin [Presence] in Body fluid BETA-2 TRANSFERRIN Lab Routine Rhinorrhea Ordered: 03/26/2024 [facility] Work Phone: Comment on above: Ordered: 03/26/2024 Body Fluid Culture Body Fluid Cu lture Microbiology Routine 05/23/2019 6:18 PM EDT [facility] CBC auto differential CBC auto d ifferential Lab Routine Daily until discontinued starting 05/22/2019, 3 completed [facility] Comment on above: Daily until disconti nued starting 05/22/2019, 3 completed CSF MANUAL DIFF CSF MANUAL DIFF Lab Routine IIH (idiopathic intracranial hypertension) 06/12/2024 12:06 PM EDT [facility] End: 05-22-2019 Cytology, Non-Bi Manager Cytology, Non-Bi Manager Lab Routine One Time for 1 Occurrences starting 05/22/2019 until 05/22/2019 [facility] Comment on above: One Time for 1 Occur rences starting 05/22/2019 until 05/22/2019 End: 05-23-2019 Fungus Culture Fungus Culture Microbiology Routine Once for 1 Occurrences starting 05/23/2019 until 05/23/2019 [facility] Comment on above: Once for 1 Occurrenc es starting 05/23/2019 until 05/23/2019 Fungus Culture Fungus Culture Microbiology Routine 05/23/2019 5:28 PM EDT [facility] Initiate Oxygen Ther apy Protocol Initiate Oxygen Therapy Protocol Respiratory Care Routine Daily until discontinued starting 05/22/2019 [facility] Comment on above: Daily until disconti nued starting 05/22/2019 IR CEREBRAL ARCH & THREE VESSEL IR CEREBRAL ARCH & THREE VESSEL Radiology Routine IIH (idiopathic intracranial hypertension) Papilledema associated with increased intracranial pressure Ordered: 06/12/2024 [facility] Comment on above: Ordered: 06/12/2024 End: 05-22-2019 Lumbar Puncture Lumbar Puncture Procedures Routine One Time for 1 Occurrences starting 05/22/2019 until 05/22/2019 [facility] Comment on above: One Time for 1 Occur rences starting 05/22/2019 until 05/22/2019 Magnesium [Mass/Vol] Magnesium L ab Routine Daily until discontinued starting 05/22/2019, 4 completed [facility] Comment on above: Daily until disconti nued starting 05/22/2019, 4 completed End: 04-26-2025 MRA Head veins WO and W contrast IV MRV BRAIN WO/W IVCON Radiology DESEAN IIH (idiopathic intracranial hypertension) Pulsatile tinnitus 1 Occurrences starting 03/26/2024 until 04/26/2025 [facility] Comment on above: 1 Occurrences starti ng 03/26/2024 until 04/26/2025 RF Guidance for flui d aspiration of Lumbar spine space IR LP FOR DRAINAGE (PRESSURE) Radiology Routine IIH (idiopathic intracranial hypertension) Ordered: 04/17/2024 [facility] Work Phone: Comment on above: Ordered: 04/17/2024 RF Stent Views W contrast intra stent IR NEUROVASCULAR STENT Radiology Routine IIH (idiopathic intracranial hypertension) Papilledema associated with increased intracranial pressure Ordered: 06/12/2024 [facility] Comment on above: Ordered: 06/12/2024 End: 05-25-2019 RPR WITH FTA REFLEX RPR WITH FTA REFLEX Lab Routine Tomorrow AM for 1 Occurrences starting 05/25/2019 until 05/25/2019 [facility] Comment on above: Tomorrow AM for 1 Oc currences starting 05/25/2019 until 05/25/2019 RPR WITH FTA REFLEX RPR WITH FTA REFLEX Lab Routine 05/25/2019 6:45 AM EDT [facility] Slctv cath intrcrnl brnch angio intrl carot/vert SELECTIVE CATHETER PLACEMENT EACH INTRACRANIAL BRANCH OF THE INTERNAL CAROTID OR VERTEBRAL ARTERIES UNILATERAL W/ ANGIOGRAPHY OF THE SELECTED VESSEL CIRCULATION AND ALL ASSOCIATED RADIOLOGICAL SUPERVISION AND INTERPRETATION IIH (idiopathic intracranial hypertension) Papilledema associated with increased intracranial pressure [facility]GIO HB6 End: 05-22-2019 Spinal fluid culture Spinal fluid culture Microbiology Routine One Time for 1 Occurrences starting 05/22/2019 until 05/22/2019 [facility] Comment on above: One Time for 1 Occur rences starting 05/22/2019 until 05/22/2019 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 scrap hooker w/balo angiop if pfrmd TRANSCATH PLCMNT OF INTRACRANIAL INTRAVASCULAR STENT IIH (idiopathic intracranial hypertension) Papilledema associated with increased intracranial pressure [facility] HB6 End: 05-23-2019 VDRL, CSF WITH REFLEX TO TITER VDRL, CSF WITH REFLEX TO TITER Lab Routine One Time for 1 Occurrences starting 05/23/2019 until 05/23/2019 [facility] Comment on above: One Time for 1 Occur rences starting 05/23/2019 until 05/23/2019 VDRL, CSF WITH REFLE X TO TITER VDRL, CSF WITH REFLEX TO TITER Lab Routine 05/23/2019 6:18 PM EDT [facility] [place], [place] XR Wrist - left PA a nd Lateral and Oblique XR WRIST GENERAL 3V PA/LAT/OBL LEFT Radiology STAT Injury of left wrist, initial encounter Ordered: 04/27/2024 [facility] Work Phone: Comment on above: Ordered: 04/27/2024 [facility] Immunizations Immunization Date Immunization Notes Care Provider Fa sav 10-10-2005 hepatitis B vaccine, pediatric or pediatric/adolescent dosage Cresencio BARRETT Work Phone: [facility] Work Phone: 10-10-2005 hepatitis B vaccine, unspecified formulation Cresencio Conrad PA-C Work Phone: [facility] 11-16-2003 tetanus and diphther ia toxoids, adsorbed, preservative free, for adult use (2 Lf of tetanus toxoid and 2 Lf of diphtheria toxoid) Cresencio BARRETT Work Phone: [facility] Work Phone: 04-25-1999 measles, mumps and rubella virus vaccine Cresencio BARRETT Work Phone: [facility] Work Phone: 11-10-1993 trivalent poliovirus vaccine, live, oral Cresencio BARRETT Work Phone: [facility] Work Phone: 11-10-1993 tuberculin skin test ; purified protein derivative solution, intradermal Adwoa Mosley APRN.CNP Work Phone: [facility] 05-24-1992 diphtheria, tetanus toxoids and pertussis vaccine Cresencio BARRETT Work Phone: [facility] Work Phone: 10-07-1990 diphtheria, tetanus toxoids and pertussis vaccine Cresencio BARRETT Work Phone: [facility] Work Phone: 10-07-1990 trivalent poliovirus vaccine, live, oral Cresencio Conrad PA-C Work Phone: [facility] Work Phone: 01-21-1990 diphtheria, tetanus toxoids and pertussis vaccine Cresencio Dudleyy PA-C Work Phone: [facility] Work Phone: 01-21-1990 haemophilus influenz ae type b vaccine, HbOC conjugate Cresencio Conrad PA-C Work Phone: [facility] Work Phone: 01-21-1990 trivalent poliovirus vaccine, live, oral Cresencio Conrad PA-C Work Phone: [facility] Work Phone: 11-13-1989 diphtheria, tetanus toxoids and pertussis vaccine Cresencio Dudleyy PA-C Work Phone: [facility] Work Phone: 11-13-1989 measles, mumps and rubella virus vaccine Cresenciogris Dudleyy PA-C Work Phone: [facility] Work Phone: 11-13-1989 trivalent poliovirus vaccine, live, oral Cresencio Conrad PA-C Work Phone: [facility] Work Phone: Payers Date Payer Category Payer Medicaid [employer] [employer] [id number] 2022-Present [phone] [place] [id number] Medicaid [id number] 2022 Unknown [id number] 2013 Unknown [id number] 1987 Unknown [id number] 1987 Unknown [id number] 1987 Unknown [id number] 1987 Unknown [id number] 1987 Unknown [id number] 1987 Unknown [id number] 1987 Unknown [id number] Social History Date Type Detail Facility Start: 05-26-2019 End: 02-27-2023 Tobacco smoking status NHIS Never smoker [facility] Start: 05-26-2019 End: 02-27-2023 Alcohol intake Yes [facility] Start: 05-22-2019 Alcohol Comment rarely [place] Start: 1985 Sex Assigned At Not on file [place], [place] Sex Assigned At Sex [facility] History of tobacco use Cigarette Smoker [facility] Start: 12-13-2022 End: 02-27-2023 Cigarettes smoked current (pack per day) - Reported 0.5 [facility] Start: 12-13-2022 End: 02-27-2023 Tobacco use and exposure Smokeless tobacco non-user [facility] Start: 12-13-2022 End: 05-20-2024 Alcohol intake Current drinker of alcohol (finding) [facility] Start: 07-18-2013 Alcohol Comment very rare [facility] National Score (1-10 0), lower number is lower risk 99 [facility] Medical Equipment Procedure Code Equipment Code Equipment Origin al Text Equipment Identifier Dates -05/26/2011 [id number] Start: 05-26-2011 Functional Status Date Assessment Result Facility 06-12-2024 Functional Status Assistive Device None A [facility] 06-12-2024 Functional Status ID band on [facility] 02-09-2024 Functional Status Independent [facility] 02-09-2024 Functional Status ID band on, Call device within reach, Bed in low position, Wheels locked, Visitor at bedside [facility] 01-28-2024 Functional Status Standard Safet y ID band on, Call device within reach, Bed in low position, Wheels locked, Upper/Half-Length side-rails up, Bedside Cart Locked, Safety level maintained [facility] 03-05-2023 Functional Status ID band on, Call device within reach, Bed in low position, Wheels locked, personal items within reach, Bedside Cart Locked, Visitor at bedside, Safety level maintained [facility] 02-12-2023 Functional Status ice chips and sips take n [facility] 02-12-2023 Functional Status [facility] 02-12-2023 Functional Status [facility] 02-07-2023 Functional Status ID band on, Call device within reach, Bed in low position, Wheels locked, Upper/Half-Length side-rails up, Visitor at bedside [facility] Mental Status Date Assessment Result Facility 06-12-2024 Mental Status Orientation Oriented x 4 [facility] 06-12-2024 Mental Status [facility] 02-09-2024 Mental Status Orientation Oriented x 4 [facility] 02-09-2024 Mental Status [facility] 01-28-2024 Mental Status Orientation Oriented x 4 [facility] 03-05-2023 Mental Status Orientation Oriented x 4 [facility] 02-12-2023 Mental Status Orientation Foll ows simple commands [facility] 02-12-2023 Mental Status [facility] 02-12-2023 Mental Status [facility] 02-07-2023 Mental Status Orientation Oriented x 4 [facility] 02-07-2023 Mental Status [facility] Clinical Notes 12-13-2022 to 06-13-2024 Mary Choudhury RN - 06/12/2024 3:24 PM EDTBribrian Op Note - Clemente Coates MD - 06/12/2024 12:25 PM EDTBribrian Op Note - Clemente Coates MD - 06/12/2024 12:25 PM EDTPatient InstructionsRadiology Note Date & Type Note Facility 06-13-2024 Hospital Discharge instructions Patient Education 06/12/2024 23:24:43 Hernia (Adult) Hernia (Adult) A hernia can happen when there is a weakness or defect in the wall of the abdomen or groin. Intestines or nearby tissues may move from their usual location and push through the weakness in the wall. This can cause a hernia (bulge) you may see or feel. Causes and risk factors A hernia may be present at . Or it may be caused by the wear and tear of daily living. Certain factors can make a hernia more likely. These can include: Heavy lifting Straining, whether from lifting, movement, or constipation Chronic cough Injury to the abdominal wall Excess weight Prior surgery Older age Family history of hernia Symptoms Symptoms of a hernia may come on suddenly. Or they may appear slowly over time. Some common symptoms include: Bulge in the groin area, around the navel, or in the scrotum (the bulge may get bigger when you stand and go away when you lie down) Pain or pressure around the bulge Pain during activities such as lifting, coughing, or sneezing A feeling of weakness or pressure in the groin Pain or swelling in the scrotum Types of hernias There are different types of hernia. The type you have depends on its location: Inguinal. This type is in the groin or scrotum. It is more common in men. But, women can get this hernia, too. Femoral. This type is in the groin, upper thigh (where the leg bends), or labia. It is more common in women. Ventral. This type is in the abdominal wall. Umbilical. This type occurs around the navel (belly button). Incisional. This type occurs at the site of a previous surgery. The condition of the hernia can help determine how urgently it needs to be treated. Reducible. It goes back in by itself, or it can be pushed back in. Irreducible. It can t be pushed back in. Incarcerated/strangulated. The intestine is trapped (incarcerated). If this happens, you won t be able to push the bulge back in. If the incarcerated hernia isn t treated, it may become strangulated. This means the area loses blood supply and the tissue may . This requires emergency surgery. You need treatment right away. In most cases, a hernia will not heal on its own.You may need surgery to repair the defect in the abdominal wall or groin. You ll be told more about surgery, if needed. If your symptoms are not severe, treatment may sometimes be delayed. In such cases, you will need regular follow-up visits with the provider. You ll be asked to keep track of your symptoms and to watch for signs of more serious problems. You may also be given guidelines similar to the home care instructions below. Home care To help keep a hernia from getting worse, you may be advised to: Avoid heavy lifting and straining as directed. Take steps to prevent constipation, such as eating more fiber and drinking more water. This may help reduce straining that can occur when having a bowel movement. Reducing straining may help keep your symptoms from getting worse. Maintain a healthy weight or lose excess weight. This can help reduce strain on abdominal muscles and tissues. Stop smoking. This can help prevent coughing that may also strain abdominal muscles and tissues. Follow-up care Follow up with your healthcare provider, or as directed. If imaging tests were done, they will be reviewed a doctor. You will be told the results and any new findings that may affect your care. When to seek medical advice Call your healthcare provider right away if any of these occur: Hernia hardens, swells, or grows larger Hernia can no longer be pushed back in Pain moves to the lower right abdomen (just below the waistline), or spreads to the back Call 911 Call 911 if any of these occur: Severe pain, redness, or tenderness in the area near the hernia Pain worsens quickly and doesn t get better Inability to have a bowel movement or pass gas Fever of 100.4 F (38 C) or higher, or as directed by your healthcare provider [phone] [employer]. [address] [place] [address], [place] [address]. All rights reserved. This information is not intended as a substitute for professional medical care. Always follow your healthcare professional's instructions. 06/12/2024 23:18:10 Abdominal Pain Abdominal Pain Abdominal pain is pain in the stomach or belly area. Everyone has this pain from time to time. In many cases it goes away on its own. But abdominal pain can sometimes be due to a serious problem, such as appendicitis. So it s important to know when to get help. Causes of abdominal pain There are many possible causes of abdominal pain. Common causes in adults include: Constipation, diarrhea, or gas Stomach acid flowing back up into the esophagus (acid reflux or heartburn) Severe acid reflux, called GERD (gastroesophageal reflux disease) A sore in the lining of the stomach or small intestine (peptic ulcer) Inflammation of the gallbladder, liver, or pancreas Gallstones or kidney stones Appendicitis Intestinal blockage An internal organ pushing through a muscle or other tissue (hernia) Urinary tract infections In women, menstrual cramps, fibroids, ovarian cysts, pelvic inflammatory disease, or endometriosis Inflammation or infection of the intestines, including Crohn's disease and ulcerative colitis Irritable bowel syndrome Diagnosing the cause of abdominal pain Your healthcare provider will give you a physical exam help find the cause of your pain. If needed, you will have tests. Belly pain has many possible causes. So it can be hard to find the reason for your pain. Giving details about your pain can help. Tell your provider where and when you feel the pain, and what makes it better or worse. Also let your provider know if you have other symptoms such as: Fever Tiredness Upset stomach (nausea) Vomiting Changes in bathroom habits Blood in the stool or black, tarry stool Weight loss that you can't explain (involuntary weight loss?) Also report any family history of stomach or intestinal problems, or cancers. Tell your provider about all your alcohol use and drug use. Tell your provider about all medicines you use, including herbs, vitamins, and supplements. Treating abdominal pain Some causes of pain need emergency medical treatment right away. These include appendicitis or a bowel blockage. Other problems can be treated with rest, fluids, or medicines. Your healthcare provider can give you specific instructions for treatment or self-care based on what is causing your pain. If you have vomiting or diarrhea, sip water or other clear fluids. When you are ready to eat solid foods again, start with small amounts of [id number], low-fat foods. These include apple sauce, toast, or crackers. When to get medical care Call 911 or go to the hospital right away if you: Can t pass stool and are vomiting Are vomiting blood or have bloody diarrhea or black, tarry diarrhea Have chest, neck, or shoulder pain Feel like you might pass out Have pain in your shoulder blades with nausea Have sudden, severe belly pain Have new, severe pain unlike any you have felt before Have a belly that is rigid, hard, and hurts to touch Call your healthcare provider if you have: Pain for more than 5 days Bloating for more than 2 days Diarrhea for more than 5 days A fever of 100.4 F (38 C) or higher, or as directed by your healthcare provider Pain that gets worse Weight loss for no reason Continued lack of appetite Blood in your stool How to prevent abdominal pain Here are some tips to help prevent abdominal pain: Eat smaller amounts of food at each meal. Don't eat greasy, fried, or other high-fat foods. Don't eat foods that give you gas. Exercise regularly. Drink plenty of fluids. To help prevent GERD symptoms: Quit smoking. Reduce alcohol and foods that increase stomach acid. Don't use aspirin or [id number] pain and fever medicines, if possible. This includes nonsteroidal anti-inflammatory drugs (NSAIDs). Lose excess weight. Finish eating at least 2 hours before you go to bed or lie down. Raise the head of your bed. [id number] [employer]. [address] [place] [address]. All rights reserved. This information is not intended as a substitute for professional medical care. Always follow your healthcare professional's instructions. Follow Up Care 06/12/2024 20:57:23 With:Rachael NAGEL Address: [address] [place] [address] [address] [facility] [address] [place] [phone] Business (1) When:3-5 days Comments:Schedule appointment for evaluation.Use Tylenol, Advil or Aleve for pain as needed.Use Wilson as prescribed for severe pain as needed.Return to the ED if symptoms worsen. [facility] 06-12-2024 Note Discharge Instructions Thank you for allowing [facility] to assist you with your healthcare needs. The following is important discharge information regarding your hospital visit. Diagnosis from Today's Visit Abdominal pain What to Do Next Instructions from Your Care Team No qualifying data available. Post Acute Orders No qualifying data available. You Need to Schedule the Following Appointments Follow Up with Rachael NAGEL When:Within 3-5 days Where:[address] [facility] [address] [facility] [address] [place] [phone] Business (1) Additional Information: Schedule appointment for evaluation. Use Tylenol, Advil or Aleve for pain as needed. Use Wilson as prescribed for severe pain as needed. Return to the ED if symptoms worsen. Allergies Tape Burn Medications Please ask your primary doctor or pharmacist before taking any other medication not listed, including over the counter drugs, herbal medications, vitamins and or supplements as they may interact with your home medications. What How Much When Why Instructions Last Dose New acetaminophen-hydrocodone (Wilson 325- 5 mg oral tablet) 1 tab(s) by mouth Every 6 hours as needed for As needed for severe pain Abdominal pain Duration: 3 Days Printed Prescription Unchanged acetaminophen-oxyCODONE (acetaminophen-oxyCODONE 325 mg-5 mg oral tablet) Unchanged acetaZOLAMIDE (acetaZOLAMIDE 500 mg oral capsule, extended release) TAKE 1 CAPSULE BY MOUTH TWICE A DAY Unchanged LORazepam (LORazepam 0.5 mg oral tablet) 1 tab(s) by mouth Two (2) times a day as needed for as needed for anxiety Unchanged ondansetron (Zofran 4 mg oral tablet) 1 tab(s) by mouth Every 6 hours Duration: 5 Days Unchanged propranolol (propranolol 10 mg oral tablet) Unchanged venlafaxine (venlafaxine 75 mg oral capsule, extended release) Please take this list to your next doctor s visit. Bring all medications you take, including over the counter medications, herbals and other supplements with you to your doctor s visit. Patients and families are reminded to discard old lists and to update any records with all medication providers or retail pharmacies. Education Materials Hernia (Adult) A hernia can happen when there is a weakness or defect in the wall of the abdomen or groin. Intestines or nearby tissues may move from their usual location and push through the weakness in the wall. This can cause a hernia (bulge) you may see or feel. Causes and risk factors A hernia may be present at . Or it may be caused by the wear and tear of daily living. Certain factors can make a hernia more likely. These can include: Heavy lifting Straining, whether from lifting, movement, or constipation Chronic cough Injury to the abdominal wall Excess weight Prior surgery Older age Family history of hernia Symptoms Symptoms of a hernia may come on suddenly. Or they may appear slowly over time. Some common symptoms include: Bulge in the groin area, around the navel, or in the scrotum (the bulge may get bigger when you stand and go away when you lie down) Pain or pressure around the bulge Pain during activities such as lifting, coughing, or sneezing A feeling of weakness or pressure in the groin Pain or swelling in the scrotum Types of hernias There are different types of hernia. The type you have depends on its location: Inguinal. This type is in the groin or scrotum. It is more common in men. But, women can get this hernia, too. Femoral. This type is in the groin, upper thigh (where the leg bends), or labia. It is more common in women. Ventral. This type is in the abdominal wall. Umbilical. This type occurs around the navel (belly button). Incisional. This type occurs at the site of a previous surgery. The condition of the hernia can help determine how urgently it needs to be treated. Reducible. It goes back in by itself, or it can be pushed back in. Irreducible. It can t be pushed back in. Incarcerated/strangulated. The intestine is trapped (incarcerated). If this happens, you won t be able to push the bulge back in. If the incarcerated hernia isn t treated, it may become strangulated. This means the area loses blood supply and the tissue may . This requires emergency surgery. You need treatment right away. In most cases, a hernia will not heal on its own.You may need surgery to repair the defect in the abdominal wall or groin. You ll be told more about surgery, if needed. If your symptoms are not severe, treatment may sometimes be delayed. In such cases, you will need regular follow-up visits with the provider. You ll be asked to keep track of your symptoms and to watch for signs of more serious problems. You may also be given guidelines similar to the home care instructions below. Home care To help keep a hernia from getting worse, you may be advised to: Avoid heavy lifting and straining as directed. Take steps to prevent constipation, such as eating more fiber and drinking more water. This may help reduce straining that can occur when having a bowel movement. Reducing straining may help keep your symptoms from getting worse. Maintain a healthy weight or lose excess weight. This can help reduce strain on abdominal muscles and tissues. Stop smoking. This can help prevent coughing that may also strain abdominal muscles and tissues. Follow-up care Follow up with your healthcare provider, or as directed. If imaging tests were done, they will be reviewed a doctor. You will be told the results and any new findings that may affect your care. When to seek medical advice Call your healthcare provider right away if any of these occur: Hernia hardens, swells, or grows larger Hernia can no longer be pushed back in Pain moves to the lower right abdomen (just below the waistline), or spreads to the back Call 911 Call 911 if any of these occur: Severe pain, redness, or tenderness in the area near the hernia Pain worsens quickly and doesn t get better Inability to have a bowel movement or pass gas Fever of 100.4 F (38 C) or higher, or as directed by your healthcare provider [id number] [employer]. [address] [place] [address]. All rights reserved. This information is not intended as a substitute for professional medical care. Always follow your healthcare professional's instructions. Abdominal Pain Abdominal pain is pain in the stomach or belly area. Everyone has this pain from time to time. In many cases it goes away on its own. But abdominal pain can sometimes be due to a serious problem, such as appendicitis. So it s important to know when to get help. Causes of abdominal pain There are many possible causes of abdominal pain. Common causes in adults include: Constipation, diarrhea, or gas Stomach acid flowing back up into the esophagus (acid reflux or heartburn) Severe acid reflux, called GERD (gastroesophageal reflux disease) A sore in the lining of the stomach or small intestine (peptic ulcer) Inflammation of the gallbladder, liver, or pancreas Gallstones or kidney stones Appendicitis Intestinal blockage An internal organ pushing through a muscle or other tissue (hernia) Urinary tract infections In women, menstrual cramps, fibroids, ovarian cysts, pelvic inflammatory disease, or endometriosis Inflammation or infection of the intestines, including Crohn's disease and ulcerative colitis Irritable bowel syndrome Diagnosing the cause of abdominal pain Your healthcare provider will give you a physical exam help find the cause of your pain. If needed, you will have tests. Belly pain has many possible causes. So it can be hard to find the reason for your pain. Giving details about your pain can help. Tell your provider where and when you feel the pain, and what makes it better or worse. Also let your provider know if you have other symptoms such as: Fever Tiredness Upset stomach (nausea) Vomiting Changes in bathroom habits Blood in the stool or black, tarry stool Weight loss that you can't explain (involuntary weight loss?) Also report any family history of stomach or intestinal problems, or cancers. Tell your provider about all your alcohol use and drug use. Tell your provider about all medicines you use, including herbs, vitamins, and supplements. Treating abdominal pain Some causes of pain need emergency medical treatment right away. These include appendicitis or a bowel blockage. Other problems can be treated with rest, fluids, or medicines. Your healthcare provider can give you specific instructions for treatment or self-care based on what is causing your pain. If you have vomiting or diarrhea, sip water or other clear fluids. When you are ready to eat solid foods again, start with small amounts of enxb-pi-yibbfl, low-fat foods. These include apple sauce, toast, or crackers. When to get medical care Call 911 or go to the hospital right away if you: Can t pass stool and are vomiting Are vomiting blood or have bloody diarrhea or black, tarry diarrhea Have chest, neck, or shoulder pain Feel like you might pass out Have pain in your shoulder blades with nausea Have sudden, severe belly pain Have new, severe pain unlike any you have felt before Have a belly that is rigid, hard, and hurts to touch Call your healthcare provider if you have: Pain for more than 5 days Bloating for more than 2 days Diarrhea for more than 5 days A fever of 100.4 F (38 C) or higher, or as directed by your healthcare provider Pain that gets worse Weight loss for no reason Continued lack of appetite Blood in your stool How to prevent abdominal pain Here are some tips to help prevent abdominal pain: Eat smaller amounts of food at each meal. Don't eat greasy, fried, or other high-fat foods. Don't eat foods that give you gas. Exercise regularly. Drink plenty of fluids. To help prevent GERD symptoms: Quit smoking. Reduce alcohol and foods that increase stomach acid. Don't use aspirin or ugmw-txk-dyeemwq pain and fever medicines, if possible. This includes nonsteroidal anti-inflammatory drugs (NSAIDs). Lose excess weight. Finish eating at least 2 hours before you go to bed or lie down. Raise the head of your bed. [phone] [employer]. [address] [place] [address]. All rights reserved. This information is not intended as a substitute for professional medical care. Always follow your healthcare professional's instructions. Additional Information VACCINATE! IT SAVES LIVES! Members of the community who have not yet received the COVID-19 vaccine and would like to receive it can visit one of [facility] vaccine clinics. There are many vaccine clinic locations within the [facility]. For locations and available times, please visit www.gettheshot.coronavirus.[place].gov/. It is important to note that some COVID mobile vaccine clinics are held outdoors and may be canceled in rainy or stormy conditions. To learn more about pediatric vaccinations (ages 5-11), we invite you to visit the [facility] webpage. https://www.[email or web address].org/pages/2 483-Shjkz-Vcjsiswvzwj-Frequently-Asked -Questions.html To learn more about the COVID-19 vaccine, we invite you to visit the CDC website for a list of frequently asked questions. https://www.cdc.gov/coronavirus/2019-n cov/vaccines/faq.html [facility] Access Instructions: Stay connected with your healthcare team and access your personal medical information anytime with the [facility] Patient Portal. If you would like a full copy of your medical records please contact the [facility] Medical Records Department Sunday through Sunday between 8a.m. and 4:30p.m. Please follow the directions below to access the portal: 1.Access the email account you provided upon registration to the [facility].2.Look for an invitation email from [facility].3.Open the email and access the invitation link: Accept Invitation to [employer]4.Fill in the required carson to create your account. Sign into www.[email or web address] with your username and password that you [...] you will allow to register on the [employer] Patient Portal for access to your information. You can also access the [employer] Patient Portal on the [employer]. Simply click on Health Records under Health Data and then click on the [employer] logo. HOW TO SAFELY DISPOSE OF PRESCRIPTION [...] Call your local pharmacy or go to [email or web address] Sing [email or web address]/[email or web address] to find one close to you.3.Make use of household items: Use cat litter or old coffee grounds to dispose medications if other options are not available. Mix your drugs with these household products, seal them in an airtight container and throw it into the garbage. Call [facility]: [phone] to be sure your drugs can be [...] a CHART COPY Signatures Patient Education Materials Hernia (Adult) Abdominal Pain Medication Leaflets My discharge plan and instructions have been reviewed and explained to me and I,SONDRA GOMEZ understand my current condition and have read and understand these discharge instructions. I have received a written copy of the plan/instructions. If I have questions, I am aware that I should contact my doctor. 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 Multiplanar reformatted images are provided for review. Automated exposure control, iterative reconstruction, and/or weight based adjustment of the mA/kV was utilized to reduce the radiation dose to as low as reasonably achievable. COMPARISON: CT abdomen pelvis 02/09/2024 HISTORY: ORDERING SYSTEM PROVIDED HISTORY: Reason for Exam: pt states she had a lumbar puncture today and now her stomach hurts and she feels bloated pain FINDINGS: No acute osseous abnormalities. No significant degenerative changes. Bilateral dependent atelectasis. The heart is normal in size. No pleural or pericardial effusions. Cholecystectomy clips. The liver, spleen, pancreas, and adrenal glands are unremarkable. The kidneys enhance symmetrically. There is excreted contrast in the renal calices bilaterally. No visualized hydronephrosis or urolithiasis. The bladder is unremarkable. Small left ovarian follicle/cyst. Pelvic phleboliths. The stomach is unremarkable. Prominent loops of small bowel in the left abdomen, which are not pathologically dilated. The colon is unremarkable. The appendix is within normal limits. Nonaneurysmal aorta. No pathologically enlarged lymph nodes are identified. No free intraperitoneal air or fluid. Small fat containing umbilical hernia. Changes status post ventral hernia repair. IMPRESSION: Prominent loops of small bowel in the left abdomen, which are not pathologically dilated with no visualized transition point. This is favored to be physiologic rather than a developing ileus. No evidence of obstruction. I have personally reviewed the images and agree with the resident's findings and interpretation. Interpreted by: Garo Zamora Preliminary Report By: Kieran Parker Electronically signed By Garo Zamora Dictated Date: 06/12/2024 11:01:41 PM Prelim Date: 06/12/2024 11:08:56 PM Sign Date: 06/12/2024 11:28:39 PM Ordering Provider: [facility] 06-12-2024 Note HNO ID: [id number] Author: MARY CHOUDHURY RN Service: ? Author Type: Registered Nurse Type: Progress Notes Filed: 06/12/2024 15:28 Note Text: Spoke to patient to arrange procedure at the end of virtual visit with Dr Nicolas. Patient agreed to procedure 07/29/[address] Nicolas. She will have PACC and lab work at [facility] prior. Confirmed pharmacy for Aspirin and Clopidogrel prescriptions. Reviewed pre and post procedure instructions, stated understanding. Will also send via My Chart. [facility] 06-12-2024 History of Present illness Narrative Spoke to patient to arrange procedure at the end of virtual visit with Dr Nicolas. Patient agreed to procedure 07/29/[address] Nicolas. She will have PACC and lab work at [facility] prior. Confirmed pharmacy for Aspirin and Clopidogrel prescriptions. Reviewed pre and post procedure instructions, stated understanding. Will also send via My Chart. documented in this encounter [facility] 06-12-2024 Surgery Surgical operation note BRIEF OPERATIVE / PROCEDURE NOTE LOG ID: [id number] SURGERY/PROCEDURE DATE: 06/12/2024 INCISION/PROCEDURE START TIME: 12:00 PM INCISION CLOSE/PROCEDURE END TIME: 12:17 PM SURGEON(S)/PROCEDURALIST(S) AND RESEARCH MANAGER(S): Surgeons and Role: * Clemente Coates MD - Primary * Bebo Chang MD No Additional Staff SURGERY/PROCEDURE(S): Diagnostic lumbar puncture ANESTHESIA: Local FINDINGS: Successful diagnostic lumbar puncture ESTIMATED BLOOD LOSS: 0 ml SPECIMENS: clear CSF, sent to lab per orders COMPLICATIONS: None CLOSURE TECHNIQUE: Primary PRE-OP/PRE-PROCEDURE DIAGNOSIS: IIHT POST-OP/POST-PROCEDURE DIAGNOSIS: Same as Preop SIGNATURE: Clemente Coates MD PATIENT NAME: Sondra Blanco DATE: June 12, 2024 TIME: 12:25 PM [facility] Work Phone: 06-12-2024 Surgical operation note BRIEF OPERATIVE / PROCEDURE NOTE LOG ID: [id number] SURGERY/PROCEDURE DATE: 06/12/2024 INCISION/PROCEDURE START TIME: 12:00 PM INCISION CLOSE/PROCEDURE END TIME: 12:17 PM SURGEON(S)/PROCEDURALIST(S) AND RESEARCH MANAGER(S): Surgeons and Role: * Clemente Coates MD - Primary * Bebo Chang MD No Additional Staff SURGERY/PROCEDURE(S): Diagnostic lumbar puncture ANESTHESIA: Local FINDINGS: Successful diagnostic lumbar puncture ESTIMATED BLOOD LOSS: 0 ml SPECIMENS: clear CSF, sent to lab per orders COMPLICATIONS: None CLOSURE TECHNIQUE: Primary PRE-OP/PRE-PROCEDURE DIAGNOSIS: IIHT POST-OP/POST-PROCEDURE DIAGNOSIS: Same as Preop SIGNATURE: Clemente Coates MD PATIENT NAME: Sondra Blanco DATE: June 12, 2024 TIME: 12:25 PM documented in this encounter [facility] 06-12-2024 Instructions Formatting of th is note might be different from the original. AMBULATORY PATIENT EDUCATION TOPIC: Survival Skills: HEALTH PROMOTION: Complication prevention Follow up management READINESS TO LEARN COGNITIVE ABILITY: Alert and oriented MOTIVATION TO LEARN: Interested FAMILY SUPPORT: High - Very involved in pt care INSTRUCTION PROVIDED TO: Patient PATIENT LEARNS BEST BY: Individual Instruction FACTORS AFFECTING LEARNING: None PHYSICAL LIMITATIONS AFFECTING LEARNING: None LEARNING RESPONSE DIAGNOSIS: IIH METHOD OF INSTRUCTION: Individual instruction PATIENT / FAMILY RESPONSE: Verbalizes understanding of: POST-PROCEDURE INSTRUCTIONS-Correct actions to take to reduce post procedure complications FOLLOW-UP PLAN: Complete - No need for follow-up Follow-up with Primary Care SUPPLEMENTAL MATERIAL: None REFERRAL (RECOMMENDATION): None Electronically Signed By: Bren Mathew RN In Department: [facility] [id number] [facility] 06-12-2024 Miscellaneous Notes AMBULATORY PATIENT EDUCATION TOPIC: Survival Skills: HEALTH PROMOTION: Complication prevention Follow up management READINESS TO LEARN COGNITIVE ABILITY: Alert and oriented MOTIVATION TO LEARN: Interested FAMILY SUPPORT: High - Very involved in pt care INSTRUCTION PROVIDED TO: Patient PATIENT LEARNS BEST BY: Individual Instruction FACTORS AFFECTING LEARNING: None PHYSICAL LIMITATIONS AFFECTING LEARNING: None LEARNING RESPONSE DIAGNOSIS: IIH METHOD OF INSTRUCTION: Individual instruction PATIENT / FAMILY RESPONSE: Verbalizes understanding of: POST-PROCEDURE INSTRUCTIONS-Correct actions to take to reduce post procedure complications FOLLOW-UP PLAN: Complete - No need for follow-up Follow-up with Primary Care SUPPLEMENTAL MATERIAL: None REFERRAL (RECOMMENDATION): None Electronically Signed By: Bren Mathew RN In Department: [facility] [id number] documented in this encounter [facility] 06-12-2024 Note HNO ID: [id number] Author: CHULA NICOLAS MD Service: ? Author Type: Physician Type: Progress Notes Filed: 06/21/2024 12:13 Note Text: [facility] Virtual Visit Consultation is requested by: Allegra Colón [id number] [facility] [id number] I have communicated my name and active licensure. The patient's identity and physical location were verified at the time of this visit. Either the patient or their legal logistics service representative has been informed of the risks and benefits of -- and alternatives to -- treatment through a remote evaluation and consents to proceed with the evaluation remotely. CEREBROVASCULAR HISTORY Sondra Blanco is a 38 year old female. Reason for Visit: - venous stenosis, IIH History of Event: Patient diagnosed with IIH in 2022. + papilledema. LP OP 33. Improved papilledema on DIamox but having side effects. MRV shows venous sinus stenosis. Denies new focal weakness, numbness, facial droop, vertigo, diplopia, or speech difficulties. MEDICATIONS Current Outpatient Medications Medication Sig acetaZOLAMIDE SR (DIAMOX SEQUELS) 500 mg capsule Take 2 capsules by mouth two times a day. LORazepam (ATIVAN) 1 mg tablet Take 1 mg by mouth as needed for anxiety. iv contrast (will be provided with radiology test) MRV Brain Inject, intravenously, once for 1 dose. No IV access, insert saline lock prior to the beginning of sedation, infusion, injection of imaging exam. Discontinue saline lock post exam. If Pt. has a central line or IVAD, may access for administration according to line specific nursing protocol. Once exam is complete flush line and de-access according to line specific nursing protocol in the MR contrast administration guidelines link. venlafaxine ER (EFFEXOR XR) 75 mg 24 hr capsule Take 1 capsule by mouth every afternoon. Miscellaneous Medical Supply (BLOOD PRESSURE CUFF) 1 Each once daily. ibuprofen (MOTRIN) 600 mg tablet Take 600 mg by mouth every 6 hours as needed. No current facility-administered medications for this visit. ALLERGIES Allergen Reactions Tape [Adhesive Tape* Rash EKG tape pleitez skin- other tape gives patient rashes EXAM Neurological: The patient has a normal attention span and concentration and was appropriately answering questions. Alert and oriented x 3. Language function normal. EOM normal. No facial droop. No pronator drift was present. DATA REVIEW: Records and neuroimaging personally reviewed by Dr. Nicolas. LABS Cholesterol: Cholesterol, Total (mg/dL) Date Value 05/26/2014 168 LDL Cholesterol (mg/dL) Date Value 05/26/2014 111 HDL Cholesterol (mg/dL) Date Value 05/26/2014 36 Triglyceride (mg/dL) Date Value 05/26/2014 103 Diabetes: No results found for: HBA1C IMAGING MRV right sinus slightly dominant. Bilateral transverse-sigmoid stenosis. Patient Entered Questionnaires 06/08/2024 Health Status Impact by Stroke or CVD Impact To a great extent PROMIS/NeuroQoL Score Percentiles 06/08/2024 Physical Health Physical Function Percentile 21* Sleep Percentile 1 Fatigue Percentile 0 Pain Interference Percentile 12 06/08/2024 PROMIS SOCIAL ROLE SCORE Social Role Satisfaction Percentile 31 06/08/2024 Mental Health NeuroQol Cognitive Function Percentile 5 General Self-Efficacy Percentile 1 06/08/2024 PROMIS Global Health Scale Physical Health Percentile 4 Mental Health Percentile 0 Percentiles provide an indication of how a patient's score ranks in relation to the [place] general population. > 31st percentile is within normal limits or better * < 31st percentile is at least ? SD worse than population, which may be clinically relevant < 16th percentile is at least 1 SD worse than population and warrants attention Descriptive Summary for PROMIS Physical Function T-score = 42 (Percentile 21) Much difficulty - Do 2 hours of physical labor. Some difficulty - Walk more than a mile (1.6 km). Depression Screening 06/08/2024 04/20/2016 PHQ-9 Score 22 18 Self-Harm Response Several days PHQ-9 Scores: PHQ-9 Self-Harm (Item 9) Response: 0 - 9 No to Mild depression 0 - Not at all 10 - 14 Moderate depression 1 - Several Days > 15 Severe depression 2 - More than half the days 3 - Nearly every day 06/08/2024 Sleep Apnea Probability Score Probability (%) 21 (Sleep study not recommended) IMPRESSION/PLAN: Staff: I participated in the andrade elements of the history and physical examination, reviewed imaging, added supplemental notes, and agree with the above documented information. Plan reviewed and approved by myself. 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 She is a candidate for venous sinus stenting. Natural history and treatment options discussed. Questions answered and patient would like to proceed. Will place on ASA + Plavix 1 week pre-procedure and continue 3 months post if stent (more content not included)... [facility] [place] 06-12-2024 History of Present illness Narrative [facility] Virtual Visit Consultation is requested by: Allegra Colón [address] [facility] [address] I have communicated my name and active licensure. The patient's identity and physical location were verified at the time of this visit. Either the patient or their legal logistics service representative has been informed of the risks and benefits of -- and alternatives to -- treatment through a remote evaluation and consents to proceed with the evaluation remotely. CEREBROVASCULAR HISTORY Sondra Blanco is a 38 year old female. Reason for Visit: - venous stenosis, IIH History of Event: Patient diagnosed with IIH in 2022. + papilledema. LP OP 33. Improved papilledema on DIamox but having side effects. MRV shows venous sinus stenosis. Denies new focal weakness, numbness, facial droop, vertigo, diplopia, or speech difficulties. MEDICATIONS Current Outpatient Medications Medication Sig acetaZOLAMIDE SR (DIAMOX SEQUELS) 500 mg capsule Take 2 capsules by mouth two times a day. LORazepam (ATIVAN) 1 mg tablet Take 1 mg by mouth as needed for anxiety. iv contrast (will be provided with radiology test) MRV Brain Inject, intravenously, once for 1 dose. No IV access, insert saline lock prior to the beginning of sedation, infusion, injection of imaging exam. Discontinue saline lock post exam. If Pt. has a central line or IVAD, may access for administration according to line specific nursing protocol. Once exam is complete flush line and de-access according to line specific nursing protocol in the MR contrast administration guidelines link. venlafaxine ER (EFFEXOR XR) 75 mg 24 hr capsule Take 1 capsule by mouth every afternoon. Miscellaneous Medical Supply (BLOOD PRESSURE CUFF) 1 Each once daily. ibuprofen (MOTRIN) 600 mg tablet Take 600 mg by mouth every 6 hours as needed. No current facility-administered medications for this visit. ALLERGIES Allergen Reactions Tape [Adhesive Tape* Rash EKG tape pleitez skin- other tape gives patient rashes EXAM Neurological: The patient has a normal attention span and concentration and was appropriately answering questions. Alert and oriented x 3. Language function normal. EOM normal. No facial droop. No pronator drift was present. DATA REVIEW: Records and neuroimaging personally reviewed by Dr. Nicolas. LABS Cholesterol: Cholesterol, Total (mg/dL) Date Value 05/26/2014 168 LDL Cholesterol (mg/dL) Date Value 05/26/2014 111 HDL Cholesterol (mg/dL) Date Value 05/26/2014 36 Triglyceride (mg/dL) Date Value 05/26/2014 103 Diabetes: No results found for: HBA1C IMAGING MRV right sinus slightly dominant. Bilateral transverse-sigmoid stenosis. Patient Entered Questionnaires 06/08/2024 Health Status Impact by Stroke or CVD Impact To a great extent PROMIS/NeuroQoL Score Percentiles 06/08/2024 Physical Health Physical Function Percentile 21* Sleep Percentile 1 Fatigue Percentile 0 Pain Interference Percentile 12 06/08/2024 PROMIS SOCIAL ROLE SCORE Social Role Satisfaction Percentile 31 06/08/2024 Mental Health NeuroQol Cognitive Function Percentile 5 General Self-Efficacy Percentile 1 06/08/2024 PROMIS Global Health Scale Physical Health Percentile 4 Mental Health Percentile 0 Percentiles provide an indication of how a patient's score ranks in relation to the [place] general population. > 31st percentile is within normal limits or better * < 31st percentile is at least SD worse than population, which may be clinically relevant < 16th percentile is at least 1 SD worse than population and warrants attention Descriptive Summary for PROMIS Physical Function T-score = 42 (Percentile 21) Much difficulty - Do 2 hours of physical labor. Some difficulty - Walk more than a mile (1.6 km). Depression Screening 06/08/2024 04/20/2016 PHQ-9 Score 22 18 Self-Harm Response Several days PHQ-9 Scores: PHQ-9 Self-Harm (Item 9) Response: 0 - 9 No to Mild depression 0 - Not at all 10 - 14 Moderate depression 1 - Several Days > 15 Severe depression 2 - More than half the days 3 - Nearly every day 06/08/2024 Sleep Apnea Probability Score Probability (%) 21 (Sleep study not recommended) IMPRESSION/PLAN: Staff: I participated in the andrade elements of the history and physical examination, reviewed imaging, added supplemental notes, and agree with the above documented information. Plan reviewed and approved by myself. 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 She is a candidate for venous sinus stenting. Natural history and treatment options discussed. Questions answered and patient would like to proceed. Will place on ASA + Plavix 1 week pre-procedure and continue 3 months post if stent is placed. I hope this information is useful in the care of this patient. If there are any concerns, please do not hesitate to contact me. Chula Nicolas MD Vascular Neurology Endovascular Surgical Neuroradiology [facility] Discussion, counseling, coordination of care > 50% of 60 minutes. Questions asked/ answered. Follow-up with results/ adherence to plan/ continued education. [facility] [address] [facility] [address] To use this Smartlink, specify the provider ID whose address you want to display, e.g., [email or web address] (where 1 is the provider ID). documented in this encounter [facility] 05-21-2024 Telephone encounter Note Patient verified by name and . Patient accepted next available vv with Dr. Lopez for 07/15/24. Confirmed with RYAN Wilson that the patient would not be able to be seen in 2-4wks. JAQUELINE Cueva [facility] 05-21-2024 Miscellaneous Notes Patient verified by name and . Patient accepted next available vv with Dr. Lopez for 07/15/24. Confirmed with RYAN Wilson that the patient would not be able to be seen in 2-4wks. JAQUELINE Cueva ASAPwith Dr. Lopez (next available is fine) Dr. Lopez No imaging (LP is Not needed prior) IIH documented in this encounter [facility] 05-21-2024 Telephone encounter Note ASAPwith Dr. Lopez (next available is fine) Dr. Lopez No imaging (LP is Not needed prior) IIH [facility] Work Phone: 05-21-2024 Telephone encounter Note Assessment & Plan Allegra Colón MD filed at 05/20/2024 8:49 AM Status: Signed ??This is a telemedicine visit that was performed using the [employer] virtual platform with the originating site at my work office and the distant site at the patient's home. Verbal consent to participate in a combined audio and video visit was obtained. This visit occurred during the Coronavirus (COVID-19) Public Health Emergency. The patient consented to this virtual visit. I discussed with the patient the nature of our telemedicine visits, that: - I would evaluate the patient and recommend diagnostics and treatments based on my assessment - Our sessions are not being recorded and that personal health information is protected - Our team would provide follow up care in person if/when the patient needs it I have communicated my name and active licensure. The patient's identity and physical location were verified at the time of this visit. Either the patient or their legal logistics service representative has been informed of the risks and benefits of -- and alternatives to -- treatment through a remote evaluation and consents to proceed with the evaluation remotely. Sondra Blanco is a 38 year old right-handed woman who presents today for follow up of recurrent idiopathic intracranial hypertension (IIH). At initial consultation on March 26, 2024, the patient reported being initially diagnosed with IIH back in 2014 with recurrence in 2022 despite lack of disc edema reported on exam with her local primary eye doctor in February of that year. She then presented to the ED 04/26/23 for worsening headaches at which time lumbar puncture had an opening pressure of 33 cm H2O. 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 She was started on diamox 500 mg twice a day thereafter with improvement in headaches though with occasional transient visual obscurations and blurry vision on the right. In February her pulsatile tinnitus recurred, most notably while standing, and she also had ongoing transient visual obscurations. She was having once weekly headaches during the day. She also reported blurry vision from the right eye. She presented back to the ER in February 2024 and was told to increase the diamox to 1G twice a day. She then saw my Luis M colleague 03/10/24 who noted bilateral optic disc edema and referred her accordingly with instruction to increase to diamox 1.5 twice a day. She reported paresthesias when cold but was otherwise tolerating the increased diamox dosage. Since that visit she noted memory difficulty, frequently dropping objects in the preceding week, and since February there was sporadic fluid from the nose and ears. Her weight had increased by about ten pounds in February. She denied exposure to topical retin-A / accutane, tetracyclines, or recent COVID-19 infection. The patient's ophthalmic history was otherwise reportedly unremarkable. The patient's initial neuro-ophthalmic exam on 03/26/2024 showed overall good afferent visual pathway function with the exception of only nonspecific areas of decreased sensitivity on the bilateral visual carson. There was a reduction in the extent of optic disc edema since her exam with my colleague (see photos). Sensorimotor exam showed full ocular motility with orthophoria in all directions of gaze tested. I ordered an MRV brain with and without contrast DESEAN to re-evaluate the sinus caliber and exclude interval thrombosis. She requested that it specifically be ordered with anxiolysis so that was ordered accordingly. I had her decrease from diamox 1.5G BID to diamox 1G twice a day given the metabolic acidosis from 02/19 while on just 500 mg twice a day. Given the ongoing symptoms that could be related to electrolyte disturbances/metabolic acidosis, I will obtain a repeat BMP to ensure we do not need to reduce the dose further. I provided counseling on the importance of healthy, slow weight loss as part of the treatment for IIH and the risk of exacerbating the condition with weight gain. We discussed a weight loss goal of 6% of body weight through a healthy diet (low salt) and exercise; 235 pounds. We did discuss avoidance of the medications/over the counter products that can provoke and worsen intracranial hypertension including tetracyclines and retinols. I explained the risk of blindness with IIH and the importance of notifying us if she were to experience any decline in vision, which would warrant immediate presentation. Beta transferrin order placed in the event she has recurrent rhinorrhea to exclude csf. ASSESSMENT/PLAN: (G93.2) IIH (idiopathic intracranial hypertension) (primary encounter diagnosis) (H93.A9) Pulsatile tinnitus Today (05/20/2024) she reported doing well as she had been able to get increased sleep as she has had more time while not currently working. She saw her primary eye doctor Dr. 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 She was still experiencing some paresthesias on the reduced diamox dose of 1G twice a day - intermittently present for example when cold. She still reported bilateral pulsatile tinnitus. The headaches had decreased in frequency and severity - with with positional worsening reported though fortunately not waking her up overnight. She denied transient visual obscurations or nidhi binocular diplopia. Since she has been doing well on that dose with unremarkable repeat BMP at last visit I will have her remain on that dosing for the time being with refill sent to her pharmacy on file. MRV of the brain with and without contrast was personally reviewed and my interpretation is that it did not reveal an alternative structural etiology underlying the patient's symptoms with only subtle suggestion of intracranial hypertension - with left transverse venous sinus stenosis again noted. Images were reviewed with the patient in detail. I reached out to my colleagues in neurosurgery and NeuroIR regarding next steps and then I will plan to see her back as scheduled in a month, unless concerns arise in the interim, for which she was provided my contact information and encouraged to reach out. ER presentation is otherwise advised for any acute onset neurological deficits. Allegra Colón MD 8:48 AM 05/20/2024 [facility] 05-21-2024 Miscellaneous Notes Assessment & Plan Allegra Colón MD filed at 05/20/2024 8:49 AM Status: Signed ??This is a telemedicine visit that was performed using the [employer] virtual platform with the originating site at my work office and the distant site at the patient's home. Verbal consent to participate in a combined audio and video visit was obtained. This visit occurred during the Coronavirus (COVID-19) Public Health Emergency. The patient consented to this virtual visit. I discussed with the patient the nature of our telemedicine visits, that: - I would evaluate the patient and recommend diagnostics and treatments based on my assessment - Our sessions are not being recorded and that personal health information is protected - Our team would provide follow up care in person if/when the patient needs it I have communicated my name and active licensure. The patient's identity and physical location were verified at the time of this visit. Either the patient or their legal logistics service representative has been informed of the risks and benefits of -- and alternatives to -- treatment through a remote evaluation and consents to proceed with the evaluation remotely. Sondra Blanco is a 38 year old right-handed woman who presents today for follow up of recurrent idiopathic intracranial hypertension (IIH). At initial consultation on March 26, 2024, the patient reported being initially diagnosed with IIH back in 2014 with recurrence in 2022 despite lack of disc edema reported on exam with her local primary eye doctor in February of that year. She then presented to the ED 04/26/23 for worsening headaches at which time lumbar puncture had an opening pressure of 33 cm H2O. 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 She was started on diamox 500 mg twice a day thereafter with improvement in headaches though with occasional transient visual obscurations and blurry vision on the right. In February her pulsatile tinnitus recurred, most notably while standing, and she also had ongoing transient visual obscurations. She was having once weekly headaches during the day. She also reported blurry vision from the right eye. She presented back to the ER in February 2024 and was told to increase the diamox to 1G twice a day. She then saw my Luis M colleague 03/10/24 who noted bilateral optic disc edema and referred her accordingly with instruction to increase to diamox 1.5 twice a day. She reported paresthesias when cold but was otherwise tolerating the increased diamox dosage. Since that visit she noted memory difficulty, frequently dropping objects in the preceding week, and since February there was sporadic fluid from the nose and ears. Her weight had increased by about ten pounds in February. She denied exposure to topical retin-A / accutane, tetracyclines, or recent COVID-19 infection. The patient's ophthalmic history was otherwise reportedly unremarkable. The patient's initial neuro-ophthalmic exam on 03/26/2024 showed overall good afferent visual pathway function with the exception of only nonspecific areas of decreased sensitivity on the bilateral visual carson. There was a reduction in the extent of optic disc edema since her exam with my colleague (see photos). Sensorimotor exam showed full ocular motility with orthophoria in all directions of gaze tested. I ordered an MRV brain with and without contrast DESEAN to re-evaluate the sinus caliber and exclude interval thrombosis. She requested that it specifically be ordered with anxiolysis so that was ordered accordingly. I had her decrease from diamox 1.5G BID to diamox 1G twice a day given the metabolic acidosis from 02/19 while on just 500 mg twice a day. Given the ongoing symptoms that could be related to electrolyte disturbances/metabolic acidosis, I will obtain a repeat BMP to ensure we do not need to reduce the dose further. I provided counseling on the importance of healthy, slow weight loss as part of the treatment for IIH and the risk of exacerbating the condition with weight gain. We discussed a weight loss goal of 6% of body weight through a healthy diet (low salt) and exercise; 235 pounds. We did discuss avoidance of the medications/over the counter products that can provoke and worsen intracranial hypertension including tetracyclines and retinols. I explained the risk of blindness with IIH and the importance of notifying us if she were to experience any decline in vision, which would warrant immediate presentation. Beta transferrin order placed in the event she has recurrent rhinorrhea to exclude csf. ASSESSMENT/PLAN: (G93.2) IIH (idiopathic intracranial hypertension) (primary encounter diagnosis) (H93.A9) Pulsatile tinnitus Today (05/20/2024) she reported doing well as she had been able to get increased sleep as she has had more time while not currently working. She saw her primary eye doctor Dr. 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 She was still experiencing some paresthesias on the reduced diamox dose of 1G twice a day - intermittently present for example when cold. She still reported bilateral pulsatile tinnitus. The headaches had decreased in frequency and severity - with with positional worsening reported though fortunately not waking her up overnight. She denied transient visual obscurations or nidhi binocular diplopia. Since she has been doing well on that dose with unremarkable repeat BMP at last visit I will have her remain on that dosing for the time being with refill sent to her pharmacy on file. MRV of the brain with and without contrast was personally reviewed and my interpretation is that it did not reveal an alternative structural etiology underlying the patient's symptoms with only subtle suggestion of intracranial hypertension - with left transverse venous sinus stenosis again noted. Images were reviewed with the patient in detail. I reached out to my colleagues in neurosurgery and NeuroIR regarding next steps and then I will plan to see her back as scheduled in a month, unless concerns arise in the interim, for which she was provided my contact information and encouraged to reach out. ER presentation is otherwise advised for any acute onset neurological deficits. Allegra Colón MD 8:48 AM 05/20/2024 documented in this encounter [facility] 05-21-2024 Telephone encounter Note Imaging up to date in chart for the past year as all done at [facility]. [facility] 05-21-2024 Miscellaneous Notes Imaging up to date in chart for the past year as all done at [facility]. Referral from Dr Allegra Colón to Dr Nicolas Diagnosis: 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 documented in this encounter [facility] 05-21-2024 Telephone encounter Note Referral from Dr Allegra Colón to Dr Nicolas Diagnosis: 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 [facility] 05-20-2024 Note HNO ID: [id number] Author: ALLEGRA COLÓN MD Service: ? Author Type: Physician Type: Progress Notes Filed: 05/20/2024 08:49 Note Text: ??This is a telemedicine visit that was performed using the [employer] platform with the originating site at my work office and the distant site at the patient's home. Verbal consent to participate in a combined audio and video visit was obtained. This visit occurred during the Coronavirus (COVID-19) Public Health Emergency. The patient consented to this virtual visit. I discussed with the patient the nature of our telemedicine visits, that: - I would evaluate the patient and recommend diagnostics and treatments based on my assessment - Our sessions are not being recorded and that personal health information is protected - Our team would provide follow up care in person if/when the patient needs it I have communicated my name and active licensure. The patient's identity and physical location were verified at the time of this visit. Either the patient or their legal logistics service representative has been informed of the risks and benefits of -- and alternatives to -- treatment through a remote evaluation and consents to proceed with the evaluation remotely. Sondra Blanco is a 38 year old right-handed woman who presents today for follow up of recurrent idiopathic intracranial hypertension (IIH). At initial consultation on March 26, 2024, the patient reported being initially diagnosed with IIH back in 2014 with recurrence in 2022 despite lack of disc edema reported on exam with her local primary eye doctor in February of that year. She then presented to the ED 04/26/23 for worsening headaches at which time lumbar puncture had an opening pressure of 33 cm H2O. 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 She was started on diamox 500 mg twice a day thereafter with improvement in headaches though with occasional transient visual obscurations and blurry vision on the right. In February her pulsatile tinnitus recurred, most notably while standing, and she also had ongoing transient visual obscurations. She was having once weekly headaches during the day. She also reported blurry vision from the right eye. She presented back to the ER in February 2024 and was told to increase the diamox to 1G twice a day. She then saw my Luis M colleague 03/10/24 who noted bilateral optic disc edema and referred her accordingly with instruction to increase to diamox 1.5 twice a day. She reported paresthesias when cold but was otherwise tolerating the increased diamox dosage. Since that visit she noted memory difficulty, frequently dropping objects in the preceding week, and since February there was sporadic fluid from the nose and ears. Her weight had increased by about ten pounds in February. She denied exposure to topical retin-A / accutane, tetracyclines, or recent COVID-19 infection. The patient's ophthalmic history was otherwise reportedly unremarkable. The patient's initial neuro-ophthalmic exam on 03/26/2024 showed overall good afferent visual pathway function with the exception of only nonspecific areas of decreased sensitivity on the bilateral visual carson. There was a reduction in the extent of optic disc edema since her exam with my colleague (see photos). Sensorimotor exam showed full ocular motility with orthophoria in all directions of gaze tested. I ordered an MRV brain with and without contrast DESEAN to re-evaluate the sinus caliber and exclude interval thrombosis. She requested that it specifically be ordered with anxiolysis so that was ordered accordingly. I had her decrease from diamox 1.5G BID to diamox 1G twice a day given the metabolic acidosis from 02/19 while on just 500 mg twice a day. Given the ongoing symptoms that could be related to electrolyte disturbances/metabolic acidosis, I will obtain a repeat BMP to ensure we do not need to reduce the dose further. I provided counseling on the importance of healthy, slow weight loss as part of the treatment for IIH and the risk of exacerbating the condition with weight gain. We discussed a weight loss goal of 6% of body weight through a healthy diet (low salt) and exercise; 235 pounds. We did discuss avoidance of the medications/over the counter products that can provoke and worsen intracranial hypertension including tetracyclines and retinols. I explained the risk of blindness with IIH and the importance of notifying us if she were to experience any decline in vision, which would warrant immediate presentation. Beta transferrin order placed in the event she has recurrent rhinorrhea to exclude csf. ASSESSMENT/PLAN: (G93.2) IIH (idiopathic intracranial hypertension) (primary encounter diagnosis) (H93.A9) Pulsatile tinnitus Today (05/20/2024) she reported doing well as she had been able to get increased sleep as she has had more (more content not included)... [facility] [place] 05-20-2024 History of Present illness Narrative ??This is a telemedicine visit that was performed using the [employer] virtual platform with the originating site at my work office and the distant site at the patient's home. Verbal consent to participate in a combined audio and video visit was obtained. This visit occurred during the Coronavirus (COVID-19) Public Health Emergency. The patient consented to this virtual visit. I discussed with the patient the nature of our telemedicine visits, that: - I would evaluate the patient and recommend diagnostics and treatments based on my assessment - Our sessions are not being recorded and that personal health information is protected - Our team would provide follow up care in person if/when the patient needs it I have communicated my name and active licensure. The patient's identity and physical location were verified at the time of this visit. Either the patient or their legal logistics service representative has been informed of the risks and benefits of -- and alternatives to -- treatment through a remote evaluation and consents to proceed with the evaluation remotely. Sondra Blanco is a 38 year old right-handed woman who presents today for follow up of recurrent idiopathic intracranial hypertension (IIH). At initial consultation on March 26, 2024, the patient reported being initially diagnosed with IIH back in 2014 with recurrence in 2022 despite lack of disc edema reported on exam with her local primary eye doctor in February of that year. She then presented to the ED 04/26/23 for worsening headaches at which time lumbar puncture had an opening pressure of 33 cm H2O. 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 She was started on diamox 500 mg twice a day thereafter with improvement in headaches though with occasional transient visual obscurations and blurry vision on the right. In February her pulsatile tinnitus recurred, most notably while standing, and she also had ongoing transient visual obscurations. She was having once weekly headaches during the day. She also reported blurry vision from the right eye. She presented back to the ER in February 2024 and was told to increase the diamox to 1G twice a day. She then saw my Luis M colleague 03/10/24 who noted bilateral optic disc edema and referred her accordingly with instruction to increase to diamox 1.5 twice a day. She reported paresthesias when cold but was otherwise tolerating the increased diamox dosage. Since that visit she noted memory difficulty, frequently dropping objects in the preceding week, and since February there was sporadic fluid from the nose and ears. Her weight had increased by about ten pounds in February. She denied exposure to topical retin-A / accutane, tetracyclines, or recent COVID-19 infection. The patient's ophthalmic history was otherwise reportedly unremarkable. The patient's initial neuro-ophthalmic exam on 03/26/2024 showed overall good afferent visual pathway function with the exception of only nonspecific areas of decreased sensitivity on the bilateral visual carson. There was a reduction in the extent of optic disc edema since her exam with my colleague (see photos). Sensorimotor exam showed full ocular motility with orthophoria in all directions of gaze tested. I ordered an MRV brain with and without contrast DESEAN to re-evaluate the sinus caliber and exclude interval thrombosis. She requested that it specifically be ordered with anxiolysis so that was ordered accordingly. I had her decrease from diamox 1.5G BID to diamox 1G twice a day given the metabolic acidosis from 02/19 while on just 500 mg twice a day. Given the ongoing symptoms that could be related to electrolyte disturbances/metabolic acidosis, I will obtain a repeat BMP to ensure we do not need to reduce the dose further. I provided counseling on the importance of healthy, slow weight loss as part of the treatment for IIH and the risk of exacerbating the condition with weight gain. We discussed a weight loss goal of 6% of body weight through a healthy diet (low salt) and exercise; 235 pounds. We did discuss avoidance of the medications/over the counter products that can provoke and worsen intracranial hypertension including tetracyclines and retinols. I explained the risk of blindness with IIH and the importance of notifying us if she were to experience any decline in vision, which would warrant immediate presentation. Beta transferrin order placed in the event she has recurrent rhinorrhea to exclude csf. ASSESSMENT/PLAN: (G93.2) IIH (idiopathic intracranial hypertension) (primary encounter diagnosis) (H93.A9) Pulsatile tinnitus Today (05/20/2024) she reported doing well as she had been able to get increased sleep as she has had more time while not currently working. She saw her primary eye doctor Dr. 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 She was still experiencing some paresthesias on the reduced diamox dose of 1G twice a day - intermittently present for example when cold. She still reported bilateral pulsatile tinnitus. The headaches had decreased in frequency and severity - with with positional worsening reported though fortunately not waking her up overnight. She denied transient visual obscurations or nidhi binocular diplopia. Since she has been doing well on that dose with unremarkable repeat BMP at last visit I will have her remain on that dosing for the time being with refill sent to her pharmacy on file. MRV of the brain with and without contrast was personally reviewed and my interpretation is that it did not reveal an alternative structural etiology underlying the patient's symptoms with only subtle suggestion of intracranial hypertension - with left transverse venous sinus stenosis again noted. Images were reviewed with the patient in detail. I reached out to my colleagues in neurosurgery and NeuroIR regarding next steps and then I will plan to see her back as scheduled in a month, unless concerns arise in the interim, for which she was provided my contact information and encouraged to reach out. ER presentation is otherwise advised for any acute onset neurological deficits. Allegra Colón MD 8:48 AM 05/20/2024 FOR ADMINISTRATIVE PURPOSES ONLY: My impression of this case is based upon an assessment of the the patient's subacute on chronic problems listed above that pose a threat to visual and neurologic function. 37 minutes were spent on total patient care on the day of service that includes [id number] time and non. The majority of this time was spent counseling and coordinating care. I communicated with her primary care physician regarding the management of this patient. The assessment and plan were discussed extensively with the patient who was amenable and voiced understanding. documented in this encounter [facility] 05-15-2024 History of Present illness Narrative Radiology Service Progress Note DATE OF SERVICE: May 15, 2024 TIME: 3:26 PM PATIENT WEIGHT: 21 LBS PATIENT IDENTITY VERIFICATION COMPLETED USING TWO (2) STANDARD IDENTIFIERS: Name and Date of confirmed by patient verbally. FALL SCREENING: Has the patient had 2 falls in the last year or 1 fall with injury or currently using an Ambulatory Assistive Device (Walker, Cane, Wheelchair, Crutches, etc.)? No PATIENT GENDER DATA: Female. status: : No status: NO. ALLERGIES: Reviewed and unchanged CONTRAST ALLERGY: No EXAM: MRI - CONTRAST TYPE: GROUP II IV SITE: Ambulatory: A peripheral IV was started in the Right forearm with a Angio cath: 22 gauge. and A Saline lock was inserted per protocol IV SITE APPEARANCE: Clean,Dry and Intact SIGNATURE: Gene Dennison RN PATIENT NAME: Sondra Blanco DATE: May 15, 2024 TIME: 3:26 PM Radiology Service Progress Note PATIENT NAME: Sondra Blanco DATE OF SERVICE: May 15, 2024 TIME: 5:06 PM PATIENT IDENTITY VERIFICATION COMPLETED USING TWO (2) IDENTIFIERS: Name and Date of confirmed by patient verbally and Name and Date of confirmed by identification band. FALL SCREENING: Has the patient had 2 falls in the last year or 1 fall with injury or currently using an Ambulatory Assistive Device (Walker, Cane, Wheelchair, Crutches, etc.)? No PATIENT GENDER DATA: Female. status: : No status: NO. PATIENT RELEVANT IMPLANT DATA REVIEWED: Yes PATIENT PRESENTS WITH AN IMPLANTABLE OR ATTACHED ROLL SKINNER: No RADIOLOGY DEPARTMENT: MR; Exam(s) Completed: Head: Sagittal Sinus MRV PERIPHERAL IV DATA: Site assessment: Clean,Dry and Intact, Site disposition Left IV in for RN to remove SIGNED BY: RT Efe(Bentley) May 15, 2024 5:06 PM documented in this encounter [facility] 05-15-2024 Note HNO ID: [id number] Author: GENE DENNISON RN Service: Nursing Author Type: Registered Nurse Type: Progress Notes Filed: 05/15/2024 15:32 Note Text: Radiology Service Progress Note DATE OF SERVICE: May 15, 2024 TIME: 3:26 PM PATIENT WEIGHT: 21 LBS PATIENT IDENTITY VERIFICATION COMPLETED USING TWO (2) STANDARD IDENTIFIERS: Name and Date of confirmed by patient verbally. FALL SCREENING: Has the patient had 2 falls in the last year or 1 fall with injury or currently using an Ambulatory Assistive Device (Walker, Cane, Wheelchair, Crutches, etc.)? No PATIENT GENDER DATA: Female. status: : No status: NO. ALLERGIES: Reviewed and unchanged CONTRAST ALLERGY: No EXAM: MRI - CONTRAST TYPE: GROUP II IV SITE: Ambulatory: A peripheral IV was started in the Right forearm with a Angio cath: 22 gauge. and A Saline lock was inserted per protocol IV SITE APPEARANCE: Clean,Dry and Intact SIGNATURE: Gene Dennison RN PATIENT NAME: Sondra Blanco DATE: May 15, 2024 TIME: 3:26 PM [facility] [place] 05-15-2024 Note HNO ID: [id number] Author: KARLI MATHEWS RT(R) Service: Radiology Author Type: Technologist Type: Progress Notes Filed: 05/15/2024 17:07 Note Text: Radiology Service Progress Note PATIENT NAME: Sondra Blanco DATE OF SERVICE: May 15, 2024 TIME: 5:06 PM PATIENT IDENTITY VERIFICATION COMPLETED USING TWO (2) IDENTIFIERS: Name and Date of confirmed by patient verbally and Name and Date of confirmed by identification band. FALL SCREENING: Has the patient had 2 falls in the last year or 1 fall with injury or currently using an Ambulatory Assistive Device (Walker, Cane, Wheelchair, Crutches, etc.)? No PATIENT GENDER DATA: Female. status: : No status: NO. PATIENT RELEVANT IMPLANT DATA REVIEWED: Yes PATIENT PRESENTS WITH AN IMPLANTABLE OR ATTACHED ROLL SKINNER: No RADIOLOGY DEPARTMENT: MR; Exam(s) Completed: Head: Sagittal Sinus MRV PERIPHERAL IV DATA: Site assessment: Clean,Dry and Intact, Site disposition Left IV in for RN to remove SIGNED BY: RT Efe(R) May 15, 2024 5:06 PM [facility] [place] 05-15-2024 History of Present illness Narrative Radiology Service Progress Note PATIENT NAME: Sondra Blanco DATE OF SERVICE: May 15, 2024 TIME: 4:18 PM PATIENT IDENTITY VERIFICATION COMPLETED USING TWO (2) STANDARD IDENTIFIERS: Name and Date of confirmed by patient verbally and Name and Date of confirmed by identification band. PATIENT GENDER DATA: Female. status: : No status: NO. PATIENT RELEVANT IMPLANT DATA REVIEWED: Not Applicable ALLERGIES: Reviewed and unchanged MEDICATIONS REVIEWED: YES IV SITE: Ambulatory: A peripheral IV was started in the Right antecubital site with a Angio cath: 22 gauge. PERIPHERAL IV ACCESS: Discontinued ANXIOLYSIS/ANESTHESIA: Xanax 0.5 mg SL. Approved by Dr. Coates PATIENT DISCHARGED TO: Home/Self Care and Pt present to drive her home SIGNED BY: Asha Brian RN May 15, 2024 4:18 PM documented in this encounter [facility] 05-15-2024 Note HNO ID: [id number] Author: ASHA BRIAN RN Service: ? Author Type: Registered Nurse Type: Progress Notes Filed: 05/15/2024 16:21 Note Text: Radiology Service Progress Note PATIENT NAME: Sondra Blanco DATE OF SERVICE: May 15, 2024 TIME: 4:18 PM PATIENT IDENTITY VERIFICATION COMPLETED USING TWO (2) STANDARD IDENTIFIERS: Name and Date of confirmed by patient verbally and Name and Date of confirmed by identification band. PATIENT GENDER DATA: Female. status: : No status: NO. PATIENT RELEVANT IMPLANT DATA REVIEWED: Not Applicable ALLERGIES: Reviewed and unchanged MEDICATIONS REVIEWED: YES IV SITE: Ambulatory: A peripheral IV was started in the Right antecubital site with a Angio cath: 22 gauge. PERIPHERAL IV ACCESS: Discontinued ANXIOLYSIS/ANESTHESIA: Xanax 0.5 mg SL. Approved by Dr. Coates PATIENT DISCHARGED TO: Home/Self Care and Pt present to drive her home SIGNED BY: Asha Brian RN May 15, 2024 4:18 PM [facility] [place] 05-05-2024 Telephone encounter Note Radiology Service Pre Anesthesia Telephone Call PATIENT NAME: Sondra Blanco DATE OF CALL: May 05, 2024 TIME: 3:54 PM Discussed anxiolysis procedure with patient for upcoming MRI on 05/15. States she thought it was IV but understands that it would be determined and ordered by the Radiologist here that day. Discussed needing to have a security patrol driver present. No other questions or concerns at this time. SIGNED BY: Will Eldridge RN May 05, 2024 3:54 PM [facility] 05-05-2024 Miscellaneous Notes Radiology Service Pre Anesthesia Telephone Call PATIENT NAME: Sondra Blanco DATE OF CALL: May 05, 2024 TIME: 3:54 PM Discussed anxiolysis procedure with patient for upcoming MRI on 05/15. States she thought it was IV but understands that it would be determined and ordered by the Radiologist here that day. Discussed needing to have a security patrol driver present. No other questions or concerns at this time. SIGNED BY: Will Eldridge RN May 05, 2024 3:54 PM documented in this encounter [facility] 04-27-2024 Note HNO ID: [id number] Author: ADWOA MOSLEY APRN.DIE STORAGE CLERK Service: ? Author Type: Nurse Practitioner Type: Progress Notes Filed: 04/27/2024 15:19 Note Text: Subjective HPI HPI Sondra Blanco is a 38 year old female who presents today for CC of left wrist injury. This started 2 days ago. Has tried otc medication for relief. Symptoms are worsened by rom. Denies history of surgery or injury to left wrist. Denies numbness and tingling of left hand. Denies possibility of being . 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 PAST SURGICAL HISTORY 2011: CHOLECYSTECTOMY 07/29/2018: COLONOSCOPY FLX DX W/COLLJ SPEC WHEN PFRMD Comment: Colonoscopy 02/12/2023: ECTOPIC - TREATMENT 07/29/2018: ESOPHAGOGASTRODUODENOSCOPY TRANSORAL DIAGNOSTIC Comment: EGD 08/31/2015: MYRINGOTOMY ASPIRAND/EUSTACHIAN TUBE NFLTJ ANES Comment: Myringotomy/tubes- right ear No date: PAST SURGICAL HISTORY OF Comment: tubes in ears 2011: REPAIR UMBILICAL HERNIA No date: UNSPECIFIED ORAL SURGERY PROCEDURE, BY REPORT Comment: 4 teeth pulled No date: [facility] DELIVERY SCHEDULING ORDER ALLERGIES Tape [Adhesive Tape (Rosins)] MEDICATIONS LORazepam (ATIVAN) 1 mg tablet Take 1 mg by mouth as needed for anxiety. acetaZOLAMIDE SR (DIAMOX SEQUELS) 500 mg capsule Take 2 capsules by mouth two times a day. venlafaxine ER (EFFEXOR XR) 75 mg 24 hr capsule Take 1 capsule by mouth every afternoon. Miscellaneous Medical Supply (BLOOD PRESSURE CUFF) 1 Each once daily. ibuprofen (MOTRIN) 600 mg tablet Take 600 mg by mouth every 6 hours as needed. iv contrast (will be provided with radiology test) MRV Brain Inject, intravenously, once for 1 dose. No IV access, insert saline lock prior to the beginning of sedation, infusion, injection of imaging exam. Discontinue saline lock post exam. If Pt. has a central line or IVAD, may access for administration according to line specific nursing protocol. Once exam is complete flush line and de-access according to line specific nursing protocol in the MR contrast administration guidelines link. FAMILY HISTORY Adopted: Yes Problem Relation Age of Onset Cancer Maternal Aunt Social History Tobacco Use Smoking status: Never Smokeless tobacco: Never Vaping Use Vaping status: Never Used Substance Use Topics Alcohol use: Yes Comment: very rare Drug use: No ROS Objective Blood pressure 132/90, pulse 70, temperature 36.7 ?C (98.1 ?F), resp. rate 18, weight 104.8 kg (231 lb 0.7 oz), last menstrual period 04/10/2024, SpO2 100%. Physical Exam Constitutional: General: She is not in acute distress. Appearance: She is not toxic-appearing or diaphoretic. HENT: Head: Normocephalic and atraumatic. Pulmonary: Effort: Pulmonary effort is normal. No accessory muscle usage or respiratory distress. Musculoskeletal: Arms: Neurological: Mental Status: She is alert and oriented to person, place, and time. ASSESSMENT/PLAN: 1. Injury of left wrist, initial encounter - ICD9: 959.3, ICD10: S69.92XA No xray at time of exam Placed in splint Pain relief discussed Will call results tomorrow. - XR WRIST GENERAL 3V PA/LAT/OBL LEFT Adwoa Mosley APRN.[facility] 04-27-2024 History of Present illness Narrative Images from the original note were not included. Subjective HPI HPI Sondra Blanco is a 38 year old female who presents today for CC of left wrist injury. This started 2 days ago. Has tried otc medication for relief. Symptoms are worsened by rom. Denies history of surgery or injury to left wrist. Denies numbness and tingling of left hand. Denies possibility of being . 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 PAST SURGICAL HISTORY 2010: CHOLECYSTECTOMY 07/29/2018: COLONOSCOPY FLX DX W/COLLJ SPEC WHEN PFRMD Comment: Colonoscopy 02/12/2023: ECTOPIC - TREATMENT 07/29/2018: ESOPHAGOGASTRODUODENOSCOPY TRANSORAL DIAGNOSTIC Comment: EGD 08/31/2015: MYRINGOTOMY ASPIR&/EUSTACHIAN TUBE NFLTJ ANES Comment: Myringotomy/tubes- right ear No date: PAST SURGICAL HISTORY OF Comment: tubes in ears 2011: REPAIR UMBILICAL HERNIA No date: UNSPECIFIED ORAL SURGERY PROCEDURE, BY REPORT Comment: 4 teeth pulled No date: [facility] DELIVERY SCHEDULING ORDER ALLERGIES Tape [Adhesive Tape (Rosins)] MEDICATIONS LORazepam (ATIVAN) 1 mg tablet Take 1 mg by mouth as needed for anxiety. acetaZOLAMIDE SR (DIAMOX SEQUELS) 500 mg capsule Take 2 capsules by mouth two times a day. venlafaxine ER (EFFEXOR XR) 75 mg 24 hr capsule Take 1 capsule by mouth every afternoon. Miscellaneous Medical Supply (BLOOD PRESSURE CUFF) 1 Each once daily. ibuprofen (MOTRIN) 600 mg tablet Take 600 mg by mouth every 6 hours as needed. iv contrast (will be provided with radiology test) MRV Brain Inject, intravenously, once for 1 dose. No IV access, insert saline lock prior to the beginning of sedation, infusion, injection of imaging exam. Discontinue saline lock post exam. If Pt. has a central line or IVAD, may access for administration according to line specific nursing protocol. Once exam is complete flush line and de-access according to line specific nursing protocol in the MR contrast administration guidelines link. FAMILY HISTORY Adopted: Yes Problem Relation Age of Onset Cancer Maternal Aunt Social History Tobacco Use Smoking status: Never Smokeless tobacco: Never Vaping Use Vaping status: Never Used Substance Use Topics Alcohol use: Yes Comment: very rare Drug use: No ROS Objective Blood pressure 132/90, pulse 70, temperature 36.7 C (98.1 F), resp. rate 18, weight 104.8 kg (231 lb 0.7 oz), last menstrual period 04/10/2024, SpO2 100%. Physical Exam Constitutional: General: She is not in acute distress. Appearance: She is not toxic-appearing or diaphoretic. HENT: Head: Normocephalic and atraumatic. Pulmonary: Effort: Pulmonary effort is normal. No accessory muscle usage or respiratory distress. Musculoskeletal: Arms: Neurological: Mental Status: She is alert and oriented to person, place, and time. ASSESSMENT/PLAN: 1. Injury of left wrist, initial encounter - ICD9: 959.3, ICD10: S69.92XA No xray at time of exam Placed in splint Pain relief discussed Will call results tomorrow. - XR WRIST GENERAL 3V PA/LAT/OBL LEFT Adwoa Mosley APRN.[facility]AY[facility] documented in this encounter [facility] 04-17-2024 Nurse Note Additional intake questions: Has the patient had fever, nausea, vomiting, diarrhea, constipation, fatigue for > 1 week? No Does the patient have a decreased appetite? No Does patient want to see a Blueprint Cutter? No (yes to any of above refer patient to schedulers for dietitian appointment) ) Does patient have any new or increased numbness or tingling of extremities? No Is patient interested in fertility information? No Does patient need any prescription refills? No Does patient have an advanced directive in place? No, Patient referred to [facility] 04-17-2024 Nurse Note Additional intake questions: Has the patient had fever, nausea, vomiting, diarrhea, constipation, fatigue for > 1 week? No Does the patient have a decreased appetite? No Does patient want to see a Blueprint Cutter? No (yes to any of above refer patient to schedulers for dietitian appointment) ) Does patient have any new or increased numbness or tingling of extremities? No Is patient interested in fertility information? No Does patient need any prescription refills? No Does patient have an advanced directive in place? No, Patient referred to [facility] documented in this encounter [facility] 04-17-2024 Note HNO ID: [id number] Author: SILVESTRE JUSTICE PA-C Service: ? Author Type: Physician Rotary Swaging Machine Operator Type: Progress Notes Filed: 04/17/2024 10:28 Note Text: This note was created using [employer]. Subjective Sondra Blanco is a 38 year old female here for evaluation of IIH. She was initially dx'd in 2014 with recurrence in 2022. Apparently, she had lack of disc edema reported by her PCP in February of 2023. She presented to the ED in April of 2023 with worsening eldridge's. She had an LP with an OP of 33. 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 She was started on diamox 500 mg bid with improvement of the eldridge's. She continued to have occasional visual obscurations and blurry vision on the R. February of 2024, she noted recurrence of the pulsatile tinnitus, mostly with standing and more consistent visual obscurations. She went back to the ED and they increased the diamox to 1000mg bid. She was seen by our [facility] who noted b/l disc edema, referred to neuro ophthalmology and increased diamox to 1.5gm bid. She has been having memory difficulties, frequently dropping objects and since February having sporadid fluid from the nose and ears. There is note of metabolic acidosis when she was on 500mg diamox bid, so her diamox was decreased to 1g bid. Review of Systems Objective LMP 12/13/2023 (Exact Date) Physical Exam Constitutional: Appearance: Normal appearance. HENT: Head: Normocephalic and atraumatic. Eyes: Extraocular Movements: Extraocular movements intact. Conjunctiva/sclera: Conjunctivae normal. Pulmonary: Effort: Pulmonary effort is normal. No respiratory distress. Skin: General: Skin is warm and dry. Neurological: General: No focal deficit present. Mental Status: She is alert and oriented to person, place, and time. Cranial Nerves: No dysarthria or facial asymmetry. Gait: Gait normal. Psychiatric: Mood and Affect: Mood normal. Behavior: Behavior normal. Assessment and Plan IIH B/l Papilledema Last IR LP OP April Currently on 1g diamox bid Continued papilledema despite increasing doses of diamox ELDRIDGE's, pulsatile tinnitus MRI shows partially empty sella prominent bilateral Meckel's caves, mildly tortuous and prominent bilateral optic nerve sheaths with mildly stenotic left distal transvenous venous sinus Pt scheduled for MRV Recommend repeat IR LP for OP and drainage. F/u with Dr. Lopez after If she is a candidate for stenting, she may avoid shunting. If she is not a candidate for stenting, will likely require a shunt. Also recommend endocrine weight management. I spent a total of 50 minutes on the date of the service which included preparing to see the patient, [id number] patient care, completing clinical documentation, obtaining and/or reviewing separately obtained history, performing a medically appropriate examination, counseling and educating the patient/family/caregiver, ordering medications, tests, or procedures, communicating with other HCPs (not separately reported), independently interpreting results (not separately reported), communicating results to the patient/family/caregiver, and care coordination (not separately reported). [facility] [place] 04-17-2024 History of Present illness Narrative This note was created using [employer]. Subjective Sondra Blanco is a 38 year old female here for evaluation of IIH. She was initially dx'd in 2014 with recurrence in 2022. Apparently, she had lack of disc edema reported by her PCP in February of 2023. She presented to the ED in April of 2023 with worsening eldridge's. She had an LP with an OP of 33. 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 She was started on diamox 500 mg bid with improvement of the eldridge's. She continued to have occasional visual obscurations and blurry vision on the R. February of 2024, she noted recurrence of the pulsatile tinnitus, mostly with standing and more consistent visual obscurations. She went back to the ED and they increased the diamox to 1000mg bid. She was seen by our [facility] who noted b/l disc edema, referred to neuro ophthalmology and increased diamox to 1.5gm bid. She has been having memory difficulties, frequently dropping objects and since February having sporadid fluid from the nose and ears. There is note of metabolic acidosis when she was on 500mg diamox bid, so her diamox was decreased to 1g bid. Review of Systems Objective LMP 12/13/2023 (Exact Date) Physical Exam Constitutional: Appearance: Normal appearance. HENT: Head: Normocephalic and atraumatic. Eyes: Extraocular Movements: Extraocular movements intact. Conjunctiva/sclera: Conjunctivae normal. Pulmonary: Effort: Pulmonary effort is normal. No respiratory distress. Skin: General: Skin is warm and dry. Neurological: General: No focal deficit present. Mental Status: She is alert and oriented to person, place, and time. Cranial Nerves: No dysarthria or facial asymmetry. Gait: Gait normal. Psychiatric: Mood and Affect: Mood normal. Behavior: Behavior normal. Assessment and Plan IIH B/l Papilledema Last IR LP OP April Currently on 1g diamox bid Continued papilledema despite increasing doses of diamox ELDRIDGE's, pulsatile tinnitus MRI shows partially empty sella prominent bilateral Meckel's caves, mildly tortuous and prominent bilateral optic nerve sheaths with mildly stenotic left distal transvenous venous sinus Pt scheduled for MRV Recommend repeat IR LP for OP and drainage. F/u with Dr. Lopez after If she is a candidate for stenting, she may avoid shunting. If she is not a candidate for stenting, will likely require a shunt. Also recommend endocrine weight management. I spent a total of 50 minutes on the date of the service which included preparing to see the patient, [id number] patient care, completing clinical documentation, obtaining and/or reviewing separately obtained history, performing a medically appropriate examination, counseling and educating the patient/family/caregiver, ordering medications, tests, or procedures, communicating with other HCPs (not separately reported), independently interpreting results (not separately reported), communicating results to the patient/family/caregiver, and care coordination (not separately reported). documented in this encounter [facility] 03-26-2024 Note Date of Procedure 03/26/2024. Manufacturing Sr Engineer Information Agricultural Commodities Inspector: Maria Victoria Isaac Start time: 9:18 AM. Stop time: 9:27 AM. Interpretation Right Eye Disc edema. Left Eye Disc edema. Interval Change Right Eye Better. Left Eye Better. [facility] 03-26-2024 Note Date of Procedure 03/26/2024. Manufacturing Sr Engineer Information Agricultural Commodities Inspector: Start time: 8:53 AM. Stop time: 9:04 AM. I did ask if patient is allergic to adhesive or Bandages. Patient Said:NO . Reliability Right Eye Good. Left Eye Good. Interpretation Right Eye Non-specific defect. Left Eye Non-specific defect. Interval Change Right Eye Better. Left Eye Better. Notes Nonspecific areas of decreased sensitivity both eyes [facility] 03-26-2024 Note HNO ID: [id number] Author: ALLEGRA COLÓN MD Service: ? Author Type: Physician Type: Progress Notes Filed: 03/26/2024 11:01 Note Text: Sondra Blanco is a 38 year old right-handed woman who presents today for recurrent idiopathic intracranial hypertension (IIH). The patient was referred by Dr. Spencer Nunez. At initial consultation on March 26, 2024, the patient reported being initially diagnosed with IIH back in 2014 with recurrence in 2022 despite lack of disc edema reported on exam with her local primary eye doctor in February of that year. She then presented to the ED 04/26/23 for worsening headaches at which time lumbar puncture had an opening pressure of 33 cm H2O. 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 Started on diamox 500 mg twice a day thereafter with improvement in headaches though with occasional transient visual obscurations and blurry vision on the right. In February her pulsatile tinnitus recurred, most notably while standing, and she also had ongoing transient visual obscurations. She was having once weekly headaches during the day. She also reported blurry vision from the right eye. She presented back to the ER in February 2024 and was told to increase the diamox to 1G twice a day. She then saw my Luis M colleague 03/10/24 who noted bilateral optic disc edema and referred her accordingly with instruction to increase to diamox 1.5 twice a day. She did report paresthesias when cold but was otherwise tolerating the increased diamox dosage. Since that visit she noted memory difficulty, frequently dropping objects in the preceding week, and since February there was sporadic fluid from the nose and ears. Her weight had increased by about ten pounds in February. She denied exposure to topical retin-A / accutane, tetracyclines, or recent COVID-19 infection. The patient's ophthalmic history was otherwise reportedly unremarkable. Thorough review of the patient's medical, family, surgical and social history was performed along with medications, allergies, labs and imaging (if applicable). ASSESSMENT/PLAN: (G93.2) IIH (idiopathic intracranial hypertension) (primary encounter diagnosis) (H53.453) Other localized visual field defect, bilateral (H93.A9) Pulsatile tinnitus (Z86.39) History of metabolic acidosis (J34.89) Rhinorrhea The patient's initial neuro-ophthalmic exam on 03/26/2024 showed overall good afferent visual pathway function with the exception of only nonspecific areas of decreased sensitivity on the bilateral visual carson. There was a reduction in the extent of optic disc edema since her exam with my colleague (see photos). Sensorimotor exam showed full ocular motility with orthophoria in all directions of gaze tested. I would like to get MRV brain with and without contrast DESEAN to re-evaluate the sinus caliber and exclude interval thrombosis. She requested that it specifically be ordered with anxiolysis so that was ordered such. I will have her decrease from diamox 1.5G BID to diamox 1G twice a day given the metabolic acidosis from 02/19 while on just 500 mg twice a day. Given the ongoing symptoms that could be related to electrolyte disturbances/metabolic acidosis, I will obtain a repeat BMP to ensure we do not need to reduce the dose further. I provided counseling on the importance of healthy, slow weight loss as part of the treatment for IIH and the risk of exacerbating the condition with weight gain. We discussed a weight loss goal of 6% of body weight through a healthy diet (low salt) and exercise; 235 pounds. We did discuss avoidance of the medications/over the counter products that can provoke and worsen intracranial hypertension including tetracyclines and retinols. I explained the risk of blindness with IIH and the importance of notifying us if she were to experience any decline in vision, which would warrant immediate presentation. Beta transferrin order placed in the event she has recurrent rhinorrhea to exclude csf. Allegra Colón MD 10:59 AM 03/26/2024 FOR ADMINISTRATIVE PURPOSES ONLY: My impression of this case is based upon an assessment of the patient's subacute on chronic problems listed above that pose a threat to visual and neurologic function. 51 minutes were spent on total patient care on the day of service that includes both [id number]-qg-ffbg and rfb-oblj-ex-face time. This time was separate from any of my time spent completing and interpreting the ancillary testing (such as OCT, fundus photos, visual carson) and sensorimotor exam, if applicable. This time was broken down into: 5 minutes reviewing the patient record before the visit, 10 minutes performing a medically appropriate neuro-ophthalmic history and exam (excluding time spent on the ancillary testing and sensorimotor exam, if applicable), 5 communicating results to the patient/family, 15 mi (more content not included)... [facility] 03-26-2024 History of Present illness Narrative Sondra Blanco is a 38 year old right-handed woman who presents today for recurrent idiopathic intracranial hypertension (IIH). The patient was referred by Dr. Spencer Nunez. At initial consultation on March 26, 2024, the patient reported being initially diagnosed with IIH back in 2014 with recurrence in 2022 despite lack of disc edema reported on exam with her local primary eye doctor in February of that year. She then presented to the ED 04/26/23 for worsening headaches at which time lumbar puncture had an opening pressure of 33 cm H2O. 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 Started on diamox 500 mg twice a day thereafter with improvement in headaches though with occasional transient visual obscurations and blurry vision on the right. In February her pulsatile tinnitus recurred, most notably while standing, and she also had ongoing transient visual obscurations. She was having once weekly headaches during the day. She also reported blurry vision from the right eye. She presented back to the ER in February 2024 and was told to increase the diamox to 1G twice a day. She then saw my Luis M colleague 03/10/24 who noted bilateral optic disc edema and referred her accordingly with instruction to increase to diamox 1.5 twice a day. She did report paresthesias when cold but was otherwise tolerating the increased diamox dosage. Since that visit she noted memory difficulty, frequently dropping objects in the preceding week, and since February there was sporadic fluid from the nose and ears. Her weight had increased by about ten pounds in February. She denied exposure to topical retin-A / accutane, tetracyclines, or recent COVID-19 infection. The patient's ophthalmic history was otherwise reportedly unremarkable. Thorough review of the patient's medical, family, surgical and social history was performed along with medications, allergies, labs and imaging (if applicable). ASSESSMENT/PLAN: (G93.2) IIH (idiopathic intracranial hypertension) (primary encounter diagnosis) (H53.453) Other localized visual field defect, bilateral (H93.A9) Pulsatile tinnitus (Z86.39) History of metabolic acidosis (J34.89) Rhinorrhea The patient's initial neuro-ophthalmic exam on 03/26/2024 showed overall good afferent visual pathway function with the exception of only nonspecific areas of decreased sensitivity on the bilateral visual carson. There was a reduction in the extent of optic disc edema since her exam with my colleague (see photos). Sensorimotor exam showed full ocular motility with orthophoria in all directions of gaze tested. I would like to get MRV brain with and without contrast DESEAN to re-evaluate the sinus caliber and exclude interval thrombosis. She requested that it specifically be ordered with anxiolysis so that was ordered such. I will have her decrease from diamox 1.5G BID to diamox 1G twice a day given the metabolic acidosis from 02/19 while on just 500 mg twice a day. Given the ongoing symptoms that could be related to electrolyte disturbances/metabolic acidosis, I will obtain a repeat BMP to ensure we do not need to reduce the dose further. I provided counseling on the importance of healthy, slow weight loss as part of the treatment for IIH and the risk of exacerbating the condition with weight gain. We discussed a weight loss goal of 6% of body weight through a healthy diet (low salt) and exercise; 235 pounds. We did discuss avoidance of the medications/over the counter products that can provoke and worsen intracranial hypertension including tetracyclines and retinols. I explained the risk of blindness with IIH and the importance of notifying us if she were to experience any decline in vision, which would warrant immediate presentation. Beta transferrin order placed in the event she has recurrent rhinorrhea to exclude csf. Allegra Colón MD 10:59 AM 03/26/2024 FOR ADMINISTRATIVE PURPOSES ONLY: My impression of this case is based upon an assessment of the patient's subacute on chronic problems listed above that pose a threat to visual and neurologic function. 51 minutes were spent on total patient care on the day of service that includes both [id number] and iuw-xyol-bg-face time. This time was separate from any of my time spent completing and interpreting the ancillary testing (such as OCT, fundus photos, visual carson) and sensorimotor exam, if applicable. This time was broken down into: 5 minutes reviewing the patient record before the visit, 10 minutes performing a medically appropriate neuro-ophthalmic history and exam (excluding time spent on the ancillary testing and sensorimotor exam, if applicable), 5 communicating results to the patient/family, 15 minutes counseling / educating the patient, 5 minutes documenting clinical information into the electronic health record of the patient, 5 minutes ordering tests/medications/procedures, and 6 minutes coordinating care for the patient. I communicated with Dr. Nunez regarding the management of this patient. The assessment and plan were discussed extensively with the patient who was amenable and voiced understanding. documented in this encounter [facility] 03-25-2024 Note HNO ID: [id number] Author: ADWOA MOSLEY APRN.DIE STORAGE CLERK Service: ? Author Type: Nurse Practitioner Type: Progress Notes Filed: 03/25/2024 15:03 Note Text: Subjective HPI HPI Sondra Blanco is a 38 year old female who presents today for CC of left ear pain/drainage. This started 1 day ago. Has tried nothing for relief. Symptoms are worsened by nothing. Risk factors has PE tubes in bilat tm. Denies cold s/s. .Patient presents with: Ear Pain: L ear x1 day PAST MEDICAL HISTORY Diagnosis Date Adjustment disorder [...] ORDER ALLERGIES Tape [Adhesive Tape (Rosins)] MEDICATIONS ofloxacin (FLOXIN) 0.3 % otic solution Use 10 Drops in both ears two times a day for 7 days. acetaZOLAMIDE SR (DIAMOX SEQUELS) 500 mg capsule Take 2 capsules by mouth two times a day. venlafaxine ER (EFFEXOR XR) 75 mg 24 hr capsule Take 1 capsule by mouth every afternoon. Miscellaneous Medical Supply (BLOOD PRESSURE CUFF) 1 Each once daily. ibuprofen (MOTRIN) 600 mg tablet Take 600 mg by mouth every 6 hours as needed. FAMILY HISTORY Adopted: Yes Problem Relation Age of Onset Cancer Maternal Aunt Social History Tobacco Use Smoking status: Never Smokeless tobacco: Never Vaping Use Vaping Use: Never used Substance Use Topics Alcohol use: Yes Comment: very rare Drug use: No ROS Objective Blood pressure 139/94, pulse 94, temperature 36.9 ?C (98.5 ?F), resp. rate 18, weight 106.7 kg (235 lb 3.7 oz), last menstrual period 12/13/2023, SpO2 97%. Physical Exam Constitutional: General: She is not in acute distress. Appearance: She is not toxic-appearing or diaphoretic. HENT: Head: Normocephalic and atraumatic. Right Ear: Hearing, tympanic membrane, ear canal and external ear normal. A PE tube is present. Left Ear: Drainage, swelling and tenderness present. Pulmonary: Effort: Pulmonary effort is normal. No accessory muscle usage or respiratory distress. Lymphadenopathy: Cervical: No cervical adenopathy. Right cervical: No superficial cervical adenopathy. Left cervical: No superficial cervical adenopathy. Neurological: Mental Status: She is alert and oriented to person, place, and time. ASSESSMENT/PLAN: 1. Acute otitis externa of left ear, unspecified type - ICD9: 380.10, ICD10: H60.502 (primary diagnosis) -education material provided -use medication as prescribed -f/u if no better in 3-5 days -discussed proper ear hygiene -discussed prevention - OFLOXACIN 0.3 % EAR DROPS 2. Otorrhea of left ear - ICD9: 388.60, ICD10: H92.12 Suspected drainage from left PE tube See ENT for continued s/s - OFLOXACIN 0.3 % EAR DROPS Adwoa Mosley APRN.DIE STORAGE CLERK [facility] [place] 03-25-2024 History of Present illness Narrative Subjective HPI HPI Sondra Blanco is a 38 year old female who presents today for CC of left ear pain/drainage. This started 1 day ago. Has tried nothing for relief. Symptoms are worsened by nothing. Risk factors has PE tubes in bilat tm. Denies cold s/s. 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 PAST SURGICAL HISTORY Procedure Laterality Date CHOLECYSTECTOMY 2010 COLONOSCOPY FLX DX W/COLLJ SPEC WHEN PFRMD 07/29/2018 Colonoscopy ECTOPIC - TREATMENT 02/12/2023 ESOPHAGOGASTRODUODENOSCOPY TRANSORAL DIAGNOSTIC 07/29/2018 EGD MYRINGOTOMY ASPIR&/EUSTACHIAN TUBE NFLTJ ANES 08/31/2015 Myringotomy/tubes- right ear PAST SURGICAL HISTORY OF tubes in ears REPAIR UMBILICAL HERNIA 2011 UNSPECIFIED ORAL SURGERY PROCEDURE, BY REPORT 4 teeth pulled [facility] DELIVERY SCHEDULING ORDER ALLERGIES Tape [Adhesive Tape (Rosins)] MEDICATIONS ofloxacin (FLOXIN) 0.3 % otic solution Use 10 Drops in both ears two times a day for 7 days. acetaZOLAMIDE SR (DIAMOX SEQUELS) 500 mg capsule Take 2 capsules by mouth two times a day. venlafaxine ER (EFFEXOR XR) 75 mg 24 hr capsule Take 1 capsule by mouth every afternoon. Miscellaneous Medical Supply (BLOOD PRESSURE CUFF) 1 Each once daily. ibuprofen (MOTRIN) 600 mg tablet Take 600 mg by mouth every 6 hours as needed. FAMILY HISTORY Adopted: Yes Problem Relation Age of Onset Cancer Maternal Aunt Social History Tobacco Use Smoking status: Never Smokeless tobacco: Never Vaping Use Vaping Use: Never used Substance Use Topics Alcohol use: Yes Comment: very rare Drug use: No ROS Objective Blood pressure 139/94, pulse 94, temperature 36.9 C (98.5 F), resp. rate 18, weight 106.7 kg (235 lb 3.7 oz), last menstrual period 12/13/2023, SpO2 97%. Physical Exam Constitutional: General: She is not in acute distress. Appearance: She is not toxic-appearing or diaphoretic. HENT: Head: Normocephalic and atraumatic. Right Ear: Hearing, tympanic membrane, ear canal and external ear normal. A PE tube is present. Left Ear: Drainage, swelling and tenderness present. Pulmonary: Effort: Pulmonary effort is normal. No accessory muscle usage or respiratory distress. Lymphadenopathy: Cervical: No cervical adenopathy. Right cervical: No superficial cervical adenopathy. Left cervical: No superficial cervical adenopathy. Neurological: Mental Status: She is alert and oriented to person, place, and time. ASSESSMENT/PLAN: 1. Acute otitis externa of left ear, unspecified type - ICD9: 380.10, ICD10: H60.502 (primary diagnosis) -education material provided -use medication as prescribed -f/u if no better in 3-5 days -discussed proper ear hygiene -discussed prevention - OFLOXACIN 0.3 % EAR DROPS 2. Otorrhea of left ear - ICD9: 388.60, ICD10: H92.12 Suspected drainage from left PE tube See ENT for continued s/s - OFLOXACIN 0.3 % EAR DROPS Adwoa Mosley APRN.DIE STORAGE CLERK documented in this encounter [facility] 03-10-2024 Note Date of Procedure 03/10/2024. Disc Right Eye Edema. Left Eye Edema. Macula Right Eye Normal. Left Eye Normal. Periphery Right Eye Normal. Left Eye Normal. [facility] 03-10-2024 Note Date of Procedure 03/10/2024. Manufacturing Sr Engineer Information Agricultural Commodities Inspector: nishant. Start time: 10:29 AM. Quality Right Eye Good. Left Eye Good. NFL Interpretation Right Eye RNFL Thickening. Left Eye RNFL Thickening. Ganglion Cell Layer Thickness Right Eye Normal. Left Eye Diffuse loss. Interval Change Right Eye Worse. Left Eye Worse. ZEISS 03-10-2024 Note Date of Procedure 03/10/2024. Manufacturing Sr Engineer Information Agricultural Commodities Inspector: nishant. Start time: 10:29 AM. Reliability Right Eye Good. Left Eye Good. Interpretation Right Eye Non-specific defect. Left Eye Non-specific defect. Interval Change Right Eye Stable. Left Eye Stable. [facility]EISS 03-10-2024 Note HNO ID: [id number] Author: SPENCER NUNEZ MD Service: ? Author Type: Physician Type: Progress Notes Filed: 03/11/2024 09:08 Note Text: Last eval lystad 04/[address] Rc Novak ([facility]) ;last 02/13/2024 ED follow up from 02/20/24: diamox increased to 1g BID, CT brain unremarkable MRV/MRI 04/2023: partial empty sella, bilateral prominence of optic nerve sheath, and mild stenosis of left distal transverse sinus. 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 I have seen and examined Sondra Blanco. I have discussed the case and the management of this patient's care with the Resident/Fellow, if applicable. I also have reviewed and agree with the assessment and plan as stated above and agree with all of its relevant components. [facility] [place] 03-10-2024 History of Present illness Narrative Last eval lystad 04/[address] Rc Novak ([facility]) ;last 02/13/2024 ED follow up from 02/20/24: diamox increased to 1g BID, CT brain unremarkable MRV/MRI 04/2023: partial empty sella, bilateral prominence of optic nerve sheath, and mild stenosis of left distal transverse sinus. 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 I have seen and examined Sondra Blanco. I have discussed the case and the management of this patient's care with the Resident/Fellow, if applicable. I also have reviewed and agree with the assessment and plan as stated above and agree with all of its relevant components. documented in this encounter [facility] 02-20-2024 Note HNO ID: [id number] Author: HATTIE FREDERICK DO Service: Neurology General Author Type: Resident Type: Plan of Care Filed: 02/20/2024 16:04 Note Text: Visusc[facility] Images 02/19 [facility] [place] 02-20-2024 Note HNO ID: [id number] Author: NIKITA GABRIEL RT(R) Service: Radiology Author Type: Technologist Type: Progress Notes Filed: 02/20/2024 13:16 Note Text: Radiology Service Progress Note PATIENT NAME: Sondra Blanco DATE OF SERVICE: February 20, 2024 TIME: 1:16 PM PATIENT IDENTITY VERIFICATION COMPLETED USING TWO (2) [...] NO. PATIENT RELEVANT IMPLANT DATA REVIEWED: Yes PATIENT PRESENTS WITH AN IMPLANTABLE OR ATTACHED ROLL SKINNER: No RADIOLOGY DEPARTMENT: CT; Exam(s) Completed: Brain PERIPHERAL IV DATA: Not applicable SIGNED BY: RT Jo(R) February 20, 2024 1:16 PM [facility] [place] 02-19-2024 Telephone encounter Note Patient calling regarding concern for worsening pain/pressure in eyes. Patient states she missed ophthalmology appointment today due to miscommunication. Conferenced to Beba in provider office at phone number ([phone]) for assistance. GO TO THE EMERGENCY ROOM OR CALL 911 IF: * You develop any new symptoms * Your condition worsens * You are concerned or anxious about your condition for any other reason. [facility] 02-19-2024 Miscellaneous Notes Patient calling regarding concern for worsening pain/pressure in eyes. Patient states she missed ophthalmology appointment today due to miscommunication. Conferenced to Beba in provider office at phone number ([phone]) for assistance. GO TO THE EMERGENCY ROOM OR CALL 911 IF: * You develop any new symptoms * Your condition worsens * You are concerned or anxious about your condition for any other reason. documented in this encounter [facility] 02-09-2024 Hospital Discharge instructions Patient Education 02/09/2024 10:50:45 Kidney Stone, Passed Kidney Stone, Passed A kidney stone (nephrolithiasis) starts as tiny crystals that form inside the kidney where urine is made. Most kidney stones enlarge to about 1/8 to 1/4 inch in size before leaving the kidney and moving toward the bladder. The sharp, cramping pain and nausea/vomiting you had was the stone moving through the ureter (the narrow tube joining the kidney to the bladder). Once the stone reaches your bladder, the pain stops. Pain may start again as the stone passes through the bladder and out through the urethra. There are 4 types of kidney stones. Eighty percent are calcium stones mostly calcium oxalate but also some with calcium phosphate. The other 3 types include uric acid stones, struvite stones (from a preceding infection), and rarely, cystine stones. Home care The following guidelines will help you care for yourself at home: Drink plenty of fluids. This increases urine flow and reduces the chance that a new stone will form. Healthy adults (no heart/liver/kidney disease) who have had a kidney stone should drink 12, 8-ounce glasses of fluids per day. Most of this should be water. The goal is to produce 1.5 to 2 quarts of almost colorless urine per 24 hours. Unless another NSAID (non-steroidal anti-inflammatory drug) was given, you may take ibuprofen or naproxen in addition to any narcotic pain medicine your healthcare provider prescribes. If you have chronic liver or kidney disease or ever had a stomach ulcer or GI bleeding, talk with your healthcare provider before using these medicines. Collecting the stone. If you were given a strainer, urinate into a jar then pour the urine through the strainer and into the toilet. Keep doing this for 24 hours after your pain stops. Save any stone that you find in the strainer and bring it to your healthcare provider for analysis. If you do not collect a stone, a 24-hour urine specimen can be done at a later time by your healthcare provider to figure out the cause of your stone. Prevention Each year, there is a chance that a new stone will form (50% chance over the next 5 to 7 years). The risk is highest if you have a family history of kidney stones or have certain chronic illnesses such as hypertension, obesity, or diabetes. However, there are lifestyle and dietary changes that you can make to reduce the risk of getting another kidney stone. Most kidney stones are made of calcium. The following advice can help you prevent calcium stones. If you don t know the type of stone you have, follow this advice until the healthcare provider determines the cause of your stone. Things that help: The most important thing you can do is to drink plenty of fluids each day, as described above. Certain foods, such as wheat, rice, rye, barley, and beans, contain phytate. Phytate is a compound that may lower the risk of recurrence of any type of stone. Eat more fruits and vegetables, especially those high in potassium. Eat foods high in natural citrate like fruit and fruit juices (using low sugar). Low calcium contributes to calcium type kidney stones. Eat a normal calcium diet and talk with your healthcare provider if you are taking calcium supplements. It may be detrimental to lower your calcium intake. New research shows that eating calcium-rich and oxalate-rich foods together lowers your risk of stones. This is because eating these foods together binds the minerals in the stomach and intestines before they can reach the kidneys. Limit salt intake to 2 grams (1 teaspoon) per day. Use limited amounts when cooking, and don t add salt at the table. Processed and canned foods are usually high in salt. Spinach, rhubarb, peanuts, cashews, almonds, grapefruit, and grapefruit juice are all high oxalate foods and should be reduced, or eaten with calcium-rich foods. These foods include dairy, dark leafy greens, soy products, calcium-enriched foods, and others. Reduce the amount of animal meat and high protein foods in your diet. This may lower your risk of uric acid stones. Don't have excess sugar (sucrose) and fructose (sweetener in many soft drinks) in your diet. If you take vitamin C as a supplement, don't take more than 1,000 milligrams (mg) per day. A dietitian or your healthcare provider can give you ideas on how to change your diet to prevent more kidney stones. Follow-up care Follow up with your healthcare provider, or as advised. Even if you don't collect the kidney stone, it is possible to analyze a 24-hour urine collection for the cause of this stone. Discuss this with your healthcare provider. If you had an X-ray, CT scan, or other diagnostic test, you will be told of any findings that may affect your care. Call 911 Call 911 if you have any of these: Weakness, dizziness, or fainting When to seek medical advice Call your healthcare provider right away if any of the these occur: Severe pain that returns and not relieved by pain medicines Repeated vomiting or unable to keep down fluids Fever of 100.4 F (38 C) or higher, or as directed by your healthcare provider Blood clots in urine Foul smelling or cloudy urine Unable to pass urine for 8 hours or increasing bladder pressure [id number] [employer]. [address] [place] [address], [place] [address]. All rights reserved. This information is not intended as a substitute for professional medical care. Always follow your healthcare professional's instructions. Follow Up Care 02/09/2024 09:38:24 With:Keep your appointment with urology as scheduled. Address:Unknown When:2-4 days Comments:Return to ED if symptoms worsen [facility] 02-09-2024 Note Discharge Instructions Thank you for allowing [facility] to assist you with your healthcare needs. The following is important discharge information regarding your hospital visit. What to Do Next Instructions from Your Care Team No qualifying data available. Post Acute Orders No qualifying data available. You Need to Schedule the Following Appointments Follow Up with Keep your appointment with urology as scheduled. When:Within 2-4 days Additional Information: Return to ED if symptoms worsen Allergies Tape Burn Medications Please ask your primary doctor or pharmacist before taking any other medication not listed, including over the counter drugs, herbal medications, vitamins and or supplements as they may interact with your home medications. What How Much When Instructions Last Dose New naproxen (naproxen 500 mg oral delayed release tablet) 1 tab(s) by mouth Twice daily with meals as needed for Pain Duration: 5 Days Printed Prescription Unchanged acetaminophen-oxyCODONE (acetaminophen-oxyCODONE 325 mg-5 mg oral tablet) Unchanged acetaZOLAMIDE (acetaZOLAMIDE 500 mg oral capsule, extended release) TAKE 1 CAPSULE BY MOUTH TWICE A DAY Unchanged LORazepam (LORazepam 0.5 mg oral tablet) 1 tab(s) by mouth Two (2) times a day as needed for as needed for anxiety Unchanged ondansetron (Zofran 4 mg oral tablet) 1 tab(s) by mouth Every 6 hours Duration: 5 Days Unchanged propranolol (propranolol 10 mg oral tablet) Unchanged venlafaxine (venlafaxine 75 mg oral capsule, extended release) Please take this list to your next doctor s visit. Bring all medications you take, including over the counter medications, herbals and other supplements with you to your doctor s visit. Patients and families are reminded to discard old lists and to update any records with all medication providers or retail pharmacies. Medication Leaflets naproxen (na PROX en) Aleve, Aleve Back and Muscle Pain, Aleve Easy Open Arthritis, Aleve Liquid Gels, Anaprox-DS, EC-Naprosyn, Naprelan, Naprosyn What is the most important information I should know about naproxen? Naproxen can increase your risk of fatal heart attack or stroke. Do not use this medicine just before or after heart bypass surgery (coronary artery bypass graft, or CABG). Naproxen may also cause stomach or intestinal bleeding, which can be fatal. What is naproxen? Naproxen is a nonsteroidal anti-inflammatory drug (NSAID). Naproxen is used to treat pain or inflammation caused by conditions such as arthritis, ankylosing spondylitis, tendinitis, bursitis, gout, or menstrual cramps. The delayed-release or extended-release tablets are slower-acting forms of naproxen that are used only for treating chronic conditions such as arthritis or ankylosing spondylitis. These forms of naproxen will not work fast enough to treat acute pain. Naproxen may also be used for purposes not listed in this medication guide. What should I discuss with my healthcare provider before taking naproxen? Naproxen can increase your risk of fatal heart attack or stroke, even if you don't have any risk factors. Do not use this medicine just before or after heart bypass surgery (coronary artery bypass graft, or CABG). Naproxen may also cause stomach or intestinal bleeding, which can be fatal. These conditions can occur without warning while you are using naproxen, especially in older adults. You should not use naproxen if you are allergic to it, or if you have ever had an asthma attack or severe allergic reaction after taking aspirin or an NSAID. Ask a doctor before giving naproxen to a child younger than 12 years old. Ask a doctor or pharmacist if this medicine is safe to use if you have: heart disease, high blood pressure, high cholesterol, diabetes, or if you smoke; a heart attack, stroke, or blood clot; stomach ulcers or bleeding; asthma; liver or kidney disease; fluid retention; or if you take aspirin to prevent heart attack or stroke. If you are , you should not take naproxen unless your doctor tells you to. Taking an NSAID during the last 20 weeks of can cause serious heart or kidney problems in the unborn baby and possible complications with your . It may not be safe to breastfeed while using this medicine. Ask your doctor about any risk. How should I take naproxen? Use exactly as directed on the label, or as prescribed by your doctor. Use the lowest dose that is effective in treating your condition. Shake the oral suspension (liquid) before you measure a dose. Measure a dose with the supplied measuring device (not a kitchen spoon). Take this medicine with food or milk if it upsets your stomach. Always follow directions on the medicine label about giving this medicine to a child. Naproxen doses are based on weight in children. Your child's dose needs may change if the child gains or loses weight. If you use naproxen long-term, you may need frequent medical tests. This medicine can affect the results of certain medical tests. Tell any doctor who treats you that you are using naproxen. Store at room temperature away from moisture, heat, and light. Keep the bottle tightly closed when not in use. What happens if I miss a dose? Since naproxen is used when needed, you may not be on a dosing schedule. Skip any missed dose if it's almost time for your next dose. Do not use two doses at one time. What happens if I overdose? Seek emergency medical attention or call the Poison Help line at . What should I avoid while taking naproxen? Avoid drinking alcohol. It may increase your risk of stomach bleeding. Avoid taking aspirin or other NSAIDs unless your doctor tells you to. Ask a doctor or pharmacist before using other medicines for pain, fever, swelling, or cold/flu symptoms. They may contain ingredients similar to naproxen (such as aspirin, ibuprofen, or ketoprofen). Ask your doctor before using an antacid, and use only the type your doctor recommends. Some antacids can make it harder for your body to absorb naproxen. What are the possible side effects of naproxen? Get emergency medical help if you have signs of an allergic reaction (runny or stuffy nose, wheezing or trouble breathing, hives, swelling in your face or throat) or a severe skin reaction (fever, sore throat, burning eyes, skin pain, red or purple skin rash with blistering and peeling). Stop using naproxen and seek medical treatment if you have a serious drug reaction that can affect many parts of your body. Symptoms may include skin rash, fever, swollen glands, muscle aches, severe weakness, unusual bruising, or yellowing of your skin or eyes. Get emergency medical help if you have signs of a heart attack or stroke: chest pain spreading to your jaw or shoulder, sudden numbness or weakness on one side of the body, slurred speech, leg swelling, feeling short of breath. Stop using naproxen and call your doctor at once if you have: shortness of breath (even with mild exertion); swelling or rapid weight gain; the first sign of any skin rash or blister, no matter how mild; signs of stomach bleeding--bloody or tarry stools, coughing up blood or vomit that looks like coffee grounds; liver problems--nausea, upper stomach pain, loss of appetite, dark urine, alex-colored stools, jaundice (yellowing of the skin or eyes); kidney problems--little or no urination, painful urination, swelling in your feet or ankles; or low red blood cells (anemia)--pale skin, unusual tiredness, feeling light-headed or short of breath, cold hands and feet. Common side effects may include: headache; indigestion, heartburn, stomach pain; or flu symptoms; This is not a complete list of side effects and others may occur. Call your doctor for medical advice about side effects. You may report side effects to FDA at 1-578-HII-8380. What other drugs will affect naproxen? Ask your doctor before using naproxen if you take an antidepressant. Taking certain antidepressants with an NSAID may cause you to bruise or bleed easily. Ask a doctor or pharmacist before using naproxen with any other medications, especially: other NSAIDs or salicylates (diflunisal, salsalate); antacids and sucralfate; cholestyramine; cyclosporine; digoxin; lithium; methotrexate; pemetrexed; probenecid; warfarin (Coumadin, Jantoven) or similar blood thinners; a diuretic or 'water pill'; or heart or blood pressure medication. This list is not complete. Other drugs may affect naproxen, including prescription and gyib-hup-ifaqjin medicines, vitamins, and herbal products. Not all possible drug interactions are listed here. Where can I get more information? Your pharmacist can provide more information about naproxen. Remember, keep this and all other medicines out of the reach of children, never share your medicines with others, and use this medication only for the indication prescribed. Every effort has been made to ensure that the information provided by [employer] is accurate, up-to-date, and complete, but no guarantee is made to that effect. Drug information contained herein may be time sensitive. [employer] information has been compiled for use by healthcare practitioners and consumers in the [place] and therefore [employer] does not warrant that uses outside of the [place] are appropriate, unless specifically indicated otherwise. [employer] drug information does not endorse drugs, diagnose patients or recommend therapy. [employer] drug information is an informational resource designed [...] effective or appropriate for any given patient. [employer] does not assume any responsibility for any aspect of healthcare administered with the aid of information [employer] provides. The information contained herein is not intended to cover all possible uses, directions, precautions, warnings, drug interactions, allergic reactions, or adverse effects. If you have questions about the drugs you are taking, check with your doctor, nurse or pharmacist. Copyright 8255-5583 [employer] Version: 22.. Revision Date: 04/12/2023. Education Materials Kidney Stone, Passed A kidney stone (nephrolithiasis) starts as tiny crystals that form inside the kidney where urine is made. Most kidney stones enlarge to about 1/8 to 1/4 inch in size before leaving the kidney and moving toward the bladder. The sharp, cramping pain and nausea/vomiting you had was the stone moving through the ureter (the narrow tube joining the kidney to the bladder). Once the stone reaches your bladder, the pain stops. Pain may start again as the stone passes through the bladder and out through the urethra. There are 4 types of kidney stones. Eighty percent are calcium stones mostly calcium oxalate but also some with calcium phosphate. The other 3 types include uric acid stones, struvite stones (from a preceding infection), and rarely, cystine stones. Home care The following guidelines will help you care for yourself at home: Drink plenty of fluids. This increases urine flow and reduces the chance that a new stone will form. Healthy adults (no heart/liver/kidney disease) who have had a kidney stone should drink 12, 8-ounce glasses of fluids per day. Most of this should be water. The goal is to produce 1.5 to 2 quarts of almost colorless urine per 24 hours. Unless another NSAID (non-steroidal anti-inflammatory drug) was given, you may take ibuprofen or naproxen in addition to any narcotic pain medicine your healthcare provider prescribes. If you have chronic liver or kidney disease or ever had a stomach ulcer or GI bleeding, talk with your healthcare provider before using these medicines. Collecting the stone. If you were given a strainer, urinate into a jar then pour the urine through the strainer and into the toilet. Keep doing this for 24 hours after your pain stops. Save any stone that you find in the strainer and bring it to your healthcare provider for analysis. If you do not collect a stone, a 24-hour urine specimen can be done at a later time by your healthcare provider to figure out the cause of your stone. Prevention Each year, there is a chance that a new stone will form (50% chance over the next 5 to 7 years). The risk is highest if you have a family history of kidney stones or have certain chronic illnesses such as hypertension, obesity, or diabetes. However, there are lifestyle and dietary changes that you can make to reduce the risk of getting another kidney stone. Most kidney stones are made of calcium. The following advice can help you prevent calcium stones. If you don t know the type of stone you have, follow this advice until the healthcare provider determines the cause of your stone. Things that help: The most important thing you can do is to drink plenty of fluids each day, as described above. Certain foods, such as wheat, rice, rye, barley, and beans, contain phytate. Phytate is a compound that may lower the risk of recurrence of any type of stone. Eat more fruits and vegetables, especially those high in potassium. Eat foods high in natural citrate like fruit and fruit juices (using low sugar). Low calcium contributes to calcium type kidney stones. Eat a normal calcium diet and talk with your healthcare provider if you are taking calcium supplements. It may be detrimental to lower your calcium intake. New research shows that eating calcium-rich and oxalate-rich foods together lowers your risk of stones. This is because eating these foods together binds the minerals in the stomach and intestines before they can reach the kidneys. Limit salt intake to 2 grams (1 teaspoon) per day. Use limited amounts when cooking, and don t add salt at the table. Processed and canned foods are usually high in salt. Spinach, rhubarb, peanuts, cashews, almonds, grapefruit, and grapefruit juice are all high oxalate foods and should be reduced, or eaten with calcium-rich foods. These foods include dairy, dark leafy greens, soy products, calcium-enriched foods, and others. Reduce the amount of animal meat and high protein foods in your diet. This may lower your risk of uric acid stones. Don't have excess sugar (sucrose) and fructose (sweetener in many soft drinks) in your diet. If you take vitamin C as a supplement, don't take more than 1,000 milligrams (mg) per day. A dietitian or your healthcare provider can give you ideas on how to change your diet to prevent more kidney stones. Follow-up care Follow up with your healthcare provider, or as advised. Even if you don't collect the kidney stone, it is possible to analyze a 24-hour urine collection for the cause of this stone. Discuss this with your healthcare provider. If you had an X-ray, CT scan, or other diagnostic test, you will be told of any findings that may affect your care. Call 911 Call 911 if you have any of these: Weakness, dizziness, or fainting When to seek medical advice Call your healthcare provider right away if any of the these occur: Severe pain that returns and not relieved by pain medicines Repeated vomiting or unable to keep down fluids Fever of 100.4 F (38 C) or higher, or as directed by your healthcare provider Blood clots in urine Foul smelling or cloudy urine Unable to pass urine for 8 hours or increasing bladder pressure [id number] [employer]. [address] [place] [address], [place] [address]. All rights reserved. This information is not intended as a substitute for professional medical care. Always follow your healthcare professional's instructions. Additional Information VACCINATE! IT SAVES LIVES! Members of the community who have not yet received the COVID-19 vaccine and would like to receive it can visit one of [facility] vaccine clinics. There are many vaccine clinic locations within the State. For locations and available times, please visit [email or web address]/. It is important to note that some COVID mobile vaccine clinics are held outdoors and may be canceled in rainy or stormy conditions. To learn more about pediatric vaccinations (ages 5-11), we invite you to visit the [facility] webpage. https://www.akTop Hats.org/pages/2 795-Hdqer-Ujuoxlyzhpc-Frequently-Asked -Questions.html To learn more about the COVID-19 vaccine, we invite you to visit the CDC website for a list of frequently asked questions. https://www.cdc.gov/coronavirus/2019-n cov/vaccines/faq.html [facility] Patient Portal Access Instructions: Stay connected with your healthcare team and access your personal medical information anytime with the [facility] Patient Portal. If you would like a full copy of your medical records please contact the [facility] Medical Records Department Sunday through Sunday between 8a.m. and 4:30p.m. Please follow the directions below to access the portal: 1.Access the email account you provided upon registration to the hospital.2.Look for an invitation email from [facility].3.Open the email and access the invitation link: Accept Invitation to [facility]4.Fill in the required carson to create your account. Sign into www.[employer] with your username and password that you [...] you will allow to register on the [facility] Patient Portal for access to your information. You can also access the [facility] Patient Portal on the [employer] jin. Simply click on Health Records under Health Data and then click on the [employer] logo. HOW TO SAFELY DISPOSE OF PRESCRIPTION [...] Call your local pharmacy or go to [email or web address] Sing [email or web address]/[email or web address] to find one close to you.3.Make use of household items: Use cat litter or old coffee grounds to dispose medications if other options are not available. Mix your drugs with these household products, seal them in an airtight container and throw it into the garbage. Call [facility]: [phone] to be sure your drugs can be [...] a CHART COPY Signatures Patient Education Materials Kidney Stone, Passed Medication Leaflets naproxen My discharge plan and instructions have been reviewed and explained to me and IPATRICIA SHARON E understand my current condition and have read and understand these discharge instructions. I have received a written copy of the plan/instructions. If I have questions, I am aware that I should contact my doctor. 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 Axial, sagittal and coronal reformatted images were reviewed. Low dose CT acquisition technique included one of the following options: 1. Automated exposure control, 2. Adjustment of the MA and/or KV according to patient size, or 3. Use of iterative reconstruction. COMPARISON: CT abdomen pelvis 01/28/2024 HISTORY: ORDERING SYSTEM PROVIDED HISTORY: Reason for Exam: Left thank pain FINDINGS: Support devices: None Lower thorax: Mild left base dependent subsegmental atelectasis is noted. Solid organs: The liver, spleen, pancreas, and adrenal glands are unremarkable. Biliary system: No evidence of biliary ductal dilatation. Cholecystectomy. Genitourinary: The kidneys are normal in appearance bilaterally with no evidence of hydronephrosis. A previously seen 4 mm calculus in a left inferior pole moiety is no longer conspicuous and has presumably past. No right renal calculi are present. The urinary bladder is unremarkable. Gastrointestinal: The stomach is unremarkable. The small bowel is nondistended. Moderate retained fecal matter is seen throughout the colon. No evidence of a bowel obstruction. Left inguinal hernia containing mesenteric fat only. Appendix: The appendix is not confidently identified. Peritoneum: No ascites, pneumoperitoneum, or abscess. Abdominal wall: Postsurgical changes of the mid anterior abdominal wall. Small periumbilical hernia containing mesenteric fat only. Pelvic organs: Bulbous uterus without a discrete lesion. No adnexal masses. Lymph nodes: No adenopathy by size criteria. Vascular structures: Visualized vascular structures appear normal. Osseous and soft tissue structures: Bone windows demonstrate no suspicious osteolytic or osteoblastic lesions. No fracture identified. IMPRESSION: 1. The previously seen 4 mm calculus located in a left inferior pole moiety is no longer conspicuous and has presumably passed. 2. Moderate retained fecal matter throughout the colon which may reflect constipation. Interpreted by: Simba Aceves MD Preliminary Report By: Simba Aceves MD Electronically signed By Simba Aceves MD Dictated Date: 02/09/2024 10:24:28 AM Prelim Date: 02/09/2024 10:33:24 AM Sign Date: 02/09/2024 10:33:24 AM Ordering Provider: JOHN CORDOVA [facility] 01-29-2024 Hospital Discharge instructions Patient Education 01/28/2024 23:08:54 Kidney Stone w/ Colic Kidney Stone with Pain The sharp cramping pain on either side of your lower back and nausea/vomiting that you have are because of a small stone that has formed in the kidney. It is now passing down a narrow tube (ureter) on its way to your bladder. Once the stone reaches your bladder, the pain will often stop. But it may come back as the stone continues to pass out of the bladder and through the urethra. The stone may pass in your urine stream in one piece. The size may be 1/16 inch to 1/4 inch (1 mm to 6 mm). Or, the stone may break up into katie fragments that you may not even notice. Once you have had a kidney stone, you are at risk of getting another one in the future. There are 4 types of kidney stones. Eighty percent are calcium stones mostly calcium oxalate but also some with calcium phosphate. The other 3 types include uric acid stones, struvite stones (from a preceding infection), and rarely, cystine stones. Most stones will pass on their own, but may take from a few hours to a few days. Sometimes the stone is too large to pass by itself. In that case, the healthcare provider will need to use other ways to remove the stone. These techniques include: Lithotripsy. This uses ultrasound waves to break up the stone. Ureteroscopy. This pushes a basket-like instrument through the urethra and bladder and into the ureter to pull out the stone. Various types of direct surgery through the skin Home care The following are general care guidelines: Drink plenty of fluids. This means at least 12, 8-ounce glasses of fluid mostly water a day. Each time you urinate, do so in a jar. Pour the urine from the jar through the strainer and into the toilet. Continue doing this until 24 hours after your pain stops. By then, if there was a kidney stone, it should pass from your bladder. Some stones dissolve into sand-like particles and pass right through the strainer. In that case, you won t ever see a stone. Save any stone that you find in the strainer and bring it to your healthcare provider to look at. It may be possible to stop certain types of stones from forming. For this reason, it is important to know what kind of stone you have. Try to stay as active as possible. This will help the stone pass. Don't stay in bed unless your pain keeps you from getting up. You may notice a red, pink, or brown color to your urine. This is normal while passing a kidney stone. If you develop pain, you may take ibuprofen or naproxen for pain, unless another medicine was prescribed. If you have chronic liver or kidney disease, talk with your healthcare provider before taking these medicines. Also talk with your provider if you've had a stomach ulcer or GI bleeding. Preventing stones Each year for the next 5 to 7 years, you are at risk that a new stone will form. Your risk is a 50% chance over this time period. The risk is higher if you have a family history of kidney stones or have certain chronic illnesses like hypertension, obesity, or diabetes. But you can make changes to your lifestyle and diet that can lower your risk for another stone. Most kidney stones are made of calcium. The following is advice for preventing another calcium stone. If you don t know the type of stone you have, follow this advice until the cause of your stone is found. Things that help: The most important thing you can do is to drink plenty of fluids each day. See home care above. Eat foods that contain phytates. These include wheat, rice, rye, barley, and beans. Phytates are substances that may lower your risk for any type of stone to form. Eat more fruits and vegetables. Choose those that are high in potassium. Eat foods high in natural citrate like fruit and low-sugar fruit juices. Having too little calcium in your diet can put you at risk for calcium kidney stones. Eat a normal amount of calcium in your diet and talk with your healthcare provider if you are taking calcium supplements. Cutting back on your calcium intake may raise your risk. New research shows that eating calcium-rich and oxalate-rich foods together lowers your risk for stones by binding the minerals in the stomach and intestines before they can reach the kidneys. Limit salt intake to 2 grams (1 teaspoon) per day. Use limited amounts when cooking, and don t add salt at the table. Processed and canned foods are usually high in salt. Spinach, rhubarb, peanuts, cashews, almonds, grapefruit, and grapefruit juice are all high oxalate foods. You should limit how much of these you eat. Or eat them with calcium-rich foods. These include dairy products, dark leafy greens, soy products, and calcium-enriched foods. Reducing the amount of animal meat and high protein foods in your diet may lower your risk for uric acid stones. Avoid excess sugar (sucrose) and fructose (sweetener in many soft drinks) in your diet. If you take vitamin C as a supplement, don't take more than 1,000 mg a day. A dietitian or your healthcare provider can give you information about changes in your diet that will help prevent more kidney stones from forming. Follow-up care Follow up with your healthcare provider, or as advised, if the pain lasts more than 48 hours. Talk with your provider about urine and blood tests to find out the cause of your stone. If you had an X-ray, CT scan, or other diagnostic test, you will be told of any new findings that may affect your care. Call 911 Call 911 if you have any of these: Weakness, dizziness, or fainting When to seek medical advice Call your healthcare provider right away if any of these occur: Pain that is not controlled by the medicine given Repeated vomiting or unable to keep down fluids Fever of 100.4 F (38 C) or higher, or as directed by your healthcare provider Passage of solid red or brown urine (can't see through it) or urine with lots of blood clots Foul-smelling or cloudy urine Unable to pass urine for 8 hours and increasing bladder pressure [id number] [employer]. [address] [place] [address], [place] [address]. All rights reserved. This information is not intended as a substitute for professional medical care. Always follow your healthcare professional's instructions. Follow Up Care 01/28/2024 19:41:00 With:LESLIE REN MD Address: [address] [place] [address] [address] [place] [address] [phone] When:2-4 days [facility] 01-28-2024 Emergency department Discharge summary Discharge Instructions Thank you for allowing [facility] to assist you with your healthcare needs. The following is important discharge information regarding your hospital visit. Diagnosis from Today's Visit Kidney stone What to Do Next Instructions from Your Care Team Discharge Return to Work, School, or Sports (Return to Work, School, or Sports) - Ordered -- 01/30/24, May return to: work, 01/28/24 23:09:00 EDT Post Acute Orders No qualifying data available. You Need to Schedule the Following Appointments Follow Up with LESLIE REN MD When: When:Within 2-4 days Where:[address] [place] [address] [address] [place] [address] [phone] Allergies Tape Burn Medications Please ask your primary doctor or pharmacist before taking any other medication not listed, including over the counter drugs, herbal medications, vitamins and or supplements as they may interact with your home medications. What How Much When Why Instructions Last Dose New acetaminophen-oxyCODONE (Percocet 5 mg-325 mg oral tablet) 1 tab(s) by mouth Every 6 hours as needed for for pain Kidney stone Duration: 2 Days Printed Prescription Changed ondansetron (Zofran 4 mg oral tablet) 1 tab(s) by mouth Every 6 hours Duration: 5 Days Changed ondansetron (Zofran 4 mg oral tablet) 1 tab(s) by mouth Every 8 hours as needed for Nausea/Vomiting Duration: 5 Days Printed Prescription Unchanged acetaZOLAMIDE (acetaZOLAMIDE 500 mg oral capsule, extended release) TAKE 1 CAPSULE BY MOUTH TWICE A DAY Unchanged LORazepam (LORazepam 0.5 mg oral tablet) 1 tab(s) by mouth Two (2) times a day as needed for as needed for anxiety Please take this list to your next doctor s visit. Bring all medications you take, including over the counter medications, herbals and other supplements with you to your doctor s visit. Patients and families are reminded to discard old lists and to update any records with all medication providers or retail pharmacies. Education Materials Kidney Stone with Pain The sharp cramping pain on either side of your lower back and nausea/vomiting that you have are because of a small stone that has formed in the kidney. It is now passing down a narrow tube (ureter) on its way to your bladder. Once the stone reaches your bladder, the pain will often stop. But it may come back as the stone continues to pass out of the bladder and through the urethra. The stone may pass in your urine stream in one piece. The size may be 1/16 inch to 1/4 inch (1 mm to 6 mm). Or, the stone may break up into katie fragments that you may not even notice. Once you have had a kidney stone, you are at risk of getting another one in the future. There are 4 types of kidney stones. Eighty percent are calcium stones mostly calcium oxalate but also some with calcium phosphate. The other 3 types include uric acid stones, struvite stones (from a preceding infection), and rarely, cystine stones. Most stones will pass on their own, but may take from a few hours to a few days. Sometimes the stone is too large to pass by itself. In that case, the healthcare provider will need to use other ways to remove the stone. These techniques include: Lithotripsy. This uses ultrasound waves to break up the stone. Ureteroscopy. This pushes a basket-like instrument through the urethra and bladder and into the ureter to pull out the stone. Various types of direct surgery through the skin Home care The following are general care guidelines: Drink plenty of fluids. This means at least 12, 8-ounce glasses of fluid mostly water a day. Each time you urinate, do so in a jar. Pour the urine from the jar through the strainer and into the toilet. Continue doing this until 24 hours after your pain stops. By then, if there was a kidney stone, it should pass from your bladder. Some stones dissolve into sand-like particles and pass right through the strainer. In that case, you won t ever see a stone. Save any stone that you find in the strainer and bring it to your healthcare provider to look at. It may be possible to stop certain types of stones from forming. For this reason, it is important to know what kind of stone you have. Try to stay as active as possible. This will help the stone pass. Don't stay in bed unless your pain keeps you from getting up. You may notice a red, pink, or brown color to your urine. This is normal while passing a kidney stone. If you develop pain, you may take ibuprofen or naproxen for pain, unless another medicine was prescribed. If you have chronic liver or kidney disease, talk with your healthcare provider before taking these medicines. Also talk with your provider if you've had a stomach ulcer or GI bleeding. Preventing stones Each year for the next 5 to 7 years, you are at risk that a new stone will form. Your risk is a 50% chance over this time period. The risk is higher if you have a family history of kidney stones or have certain chronic illnesses like hypertension, obesity, or diabetes. But you can make changes to your lifestyle and diet that can lower your risk for another stone. Most kidney stones are made of calcium. The following is advice for preventing another calcium stone. If you don t know the type of stone you have, follow this advice until the cause of your stone is found. Things that help: The most important thing you can do is to drink plenty of fluids each day. See home care above. Eat foods that contain phytates. These include wheat, rice, rye, barley, and beans. Phytates are substances that may lower your risk for any type of stone to form. Eat more fruits and vegetables. Choose those that are high in potassium. Eat foods high in natural citrate like fruit and low-sugar fruit juices. Having too little calcium in your diet can put you at risk for calcium kidney stones. Eat a normal amount of calcium in your diet and talk with your healthcare provider if you are taking calcium supplements. Cutting back on your calcium intake may raise your risk. New research shows that eating calcium-rich and oxalate-rich foods together lowers your risk for stones by binding the minerals in the stomach and intestines before they can reach the kidneys. Limit salt intake to 2 grams (1 teaspoon) per day. Use limited amounts when cooking, and don t add salt at the table. Processed and canned foods are usually high in salt. Spinach, rhubarb, peanuts, cashews, almonds, grapefruit, and grapefruit juice are all high oxalate foods. You should limit how much of these you eat. Or eat them with calcium-rich foods. These include dairy products, dark leafy greens, soy products, and calcium-enriched foods. Reducing the amount of animal meat and high protein foods in your diet may lower your risk for uric acid stones. Avoid excess sugar (sucrose) and fructose (sweetener in many soft drinks) in your diet. If you take vitamin C as a supplement, don't take more than 1,000 mg a day. A dietitian or your healthcare provider can give you information about changes in your diet that will help prevent more kidney stones from forming. Follow-up care Follow up with your healthcare provider, or as advised, if the pain lasts more than 48 hours. Talk with your provider about urine and blood tests to find out the cause of your stone. If you had an X-ray, CT scan, or other diagnostic test, you will be told of any new findings that may affect your care. Call 911 Call 911 if you have any of these: Weakness, dizziness, or fainting When to seek medical advice Call your healthcare provider right away if any of these occur: Pain that is not controlled by the medicine given Repeated vomiting or unable to keep down fluids Fever of 100.4 F (38 C) or higher, or as directed by your healthcare provider Passage of solid red or brown urine (can't see through it) or urine with lots of blood clots Foul-smelling or cloudy urine Unable to pass urine for 8 hours and increasing bladder pressure [phone] [employer]. [address] [place] [address]. All rights reserved. This information is not intended as a substitute for professional medical care. Always follow your healthcare professional's instructions. Additional Information VACCINATE! IT SAVES LIVES! Members of the community who have not yet received the COVID-19 vaccine and would like to receive it can visit one of [facility] vaccine clinics. There are many vaccine clinic locations within the [facility]. For locations and available times, please visit www.[email or web address]/. It is important to note that some COVID mobile vaccine clinics are held outdoors and may be canceled in rainy or stormy conditions. To learn more about pediatric vaccinations (ages 5-11), we invite you to visit the [facility] webpage. https://www.[facility].org/pages/2 790-Qnidt-Ahghbbugpaz-Frequently-Asked -Questions.html To learn more about the COVID-19 vaccine, we invite you to visit the CDC website for a list of frequently asked questions. https://www.cdc.gov/coronavirus/2019-n cov/vaccines/faq.html [facility] Patient Portal Access Instructions: Stay connected with your healthcare team and access your personal medical information anytime with the [facility] Patient Portal. If you would like a full copy of your medical records please contact the [facility] Medical Records Department Sunday through Sunday between 8a.m. and 4:30p.m. Please follow the directions below to access the portal: 1.Access the email account you provided upon registration to the [facility].2.Look for an invitation email from [facility].3.Open the email and access the invitation link: Accept Invitation to [facility]4.Fill in the required carson to create your account. Sign into www.[employer] with your username and password that you [...] you will allow to register on the [facility] Patient Portal for access to your information. You can also access the [facility] Patient Portal on the [employer] jin. Simply click on Health Records under Health Data and then click on the [employer] logo. HOW TO SAFELY DISPOSE OF PRESCRIPTION [...] Call your local pharmacy or go to http://bit.ly/[email or web address] to find one close to you.3.Make use of household items: Use cat litter or old coffee grounds to dispose medications if other options are not available. Mix your drugs with these household products, seal them in an airtight container and throw it into the garbage. Call [facility]: [phone] to be sure your drugs can be [...] a CHART COPY Signatures Patient Education Materials Kidney Stone w/ Colic Medication Leaflets My discharge plan and instructions have been reviewed and explained to me and I,SONDRA GOMEZ understand my current condition and have read and understand these discharge instructions. I have received a written copy of the plan/instructions. If I have questions, I am aware that I should contact my doctor. 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 Multiplanar reformatted images are provided for review. Automated exposure control, iterative reconstruction, and/or weight based adjustment of the mA/kV was utilized to reduce the radiation dose to as low as reasonably achievable. COMPARISON: None. HISTORY: ORDERING SYSTEM PROVIDED HISTORY: Reason for Exam: r flank pain FINDINGS: Lower Chest: No focal consolidation. Organs: Cholecystectomy clips. Nonobstructing 0.4 cm nephrolithiasis in the left inferior pole of the kidney. Question punctate stone in the right mid ureter. No hydronephrosis or hydroureter. Otherwise unremarkable. GI/Bowel: Unremarkable. Pelvis: Unremarkable. Peritoneum/Retroperitoneum: Unremarkable. Bones/Soft Tissues: Anterior abdominal wall postsurgical changes. No acute osseous abnormality. IMPRESSION: 0.4 cm nonobstructing nephrolithiasis in the left inferior pole of the kidney. Question punctate stone in the right mid ureter. No hydronephrosis or hydroureter. Interpreted by: Dequan Richard Preliminary Report By: Dequan Richard Electronically signed By Dequan Richard Dictated Date: 01/28/2024 10:46:48 PM Prelim Date: 01/28/2024 10:50:14 PM Sign Date: 01/28/2024 10:50:14 PM Ordering Provider: ROC BURT [facility] 01-23-2024 Note HNO ID: [id number] Author: ADWOA MOSLEY APRN.DIE STORAGE CLERK Service: ? Author Type: Nurse Practitioner Type: Progress Notes Filed: 01/23/2024 16:39 Note Text: Subjective HPI HPI Sondra Blanco is a 38 year old female who presents today for CC of left ear pain, loss of hearing. Patient just left ENT. Where she had cerumen removed, heard a pop, then lost hearing and had pain. Has tubes in bilat ears .Patient presents with: Ear Pain: L ear pain x 1 day PAST MEDICAL HISTORY Diagnosis Date Adjustment disorder [...] ORDER ALLERGIES Tape [Adhesive Tape (Rosins)] MEDICATIONS venlafaxine ER (EFFEXOR XR) 75 mg 24 hr capsule Take 1 capsule by mouth every afternoon. Miscellaneous Medical Supply (BLOOD PRESSURE CUFF) 1 Each once daily. acetaZOLAMIDE SR (DIAMOX SEQUELS) 500 mg capsule [...] Yes Comment: very rare Drug use: No Review of Systems Constitutional: Negative for fever. HENT: Positive for ear pain and hearing loss. Negative for congestion, nosebleeds, sore throat and tinnitus. Respiratory: Negative for cough, shortness of breath and wheezing. Musculoskeletal: Negative for neck pain. Objective Blood pressure 157/99, pulse 66, temperature 37.1 ?C (98.7 ?F), resp. rate 18, weight 108.6 kg (239 lb 6.7 oz), last menstrual period 12/13/2023, SpO2 99%. Physical Exam Constitutional: General: She is not in acute distress. Appearance: She is not toxic-appearing or diaphoretic. HENT: Head: Normocephalic and atraumatic. Right Ear: Hearing, tympanic membrane, ear canal and external ear normal. A PE tube is present. Left Ear: Swelling present. No laceration or drainage. A PE tube is present. Pulmonary: Effort: Pulmonary effort is normal. No accessory muscle usage or respiratory distress. Neurological: Mental Status: She is alert and oriented to person, place, and time. ASSESSMENT/PLAN: 1. Left ear pain - ICD9: 388.70, ICD10: H92.02 This pain started after an ear procedure today I advised patient to return to ENT May also have slight OE, nothing ordered as she is to return to ENT. Adwoa Mosley APRN.[facility] 01-08-2024 Instructions Ayleen Pichardo - 01/08/2024 3:02 PM EDT Images from the original note were not included. Powerstep Original Full length. Can purchase at [facility] Runner and boots,shoes and more here in [place], [employer] in [place] or [place]. Also can find in [place] in [facility]. Powersteps can also be purchased online, starting around $45.00 If you have a metatarsal or dancer pad for your feet apply the pad directly to the insole so you can interchange between your shoes. Find a shoe with a removable insole and take this out and replace with your powerstep insole. Always bring powersteps with you when shopping for shoes so that you can make sure that everything fits well together What is Plantar Fasciitis? Plantar fasciitis is the most common cause of heel pain. The pain is caused by inflammation of the plantar fascia. If you strain your plantar fascia, it becomes weak, swollen and irritated (inflamed). The resulting pain may be isolated in the heel or may appear at different points on the bottom of the foot, from time to time; it may occur in one foot or both. Some think that plantar fasciitis pain is caused by irritation of nerves from tissue swelling or inflammation, but it is debatable. Plantar fasciitis is common in middle-aged people; it also occurs in younger people who are on their feet a lot, such as athletes or soldiers. The plantar fascia is a strong band of connective tissue that extends from the base of the toes, along the bottom of the foot, to the bottom of the heel (calcaneous bone); it acts like a bowstring to maintain the arch of the foot. What are heel spurs? The inflammatory reaction of the heel bone may produce spike-like projections of new bone, called heel spurs. The spurs sometimes show on X-rays. They neither cause the initial pain nor do they cause the initial problem. However, later, having to walk on spurs may cause sharp pain. What causes plantar fasciitis? Plantar fasciitis is caused by straining the ligament that supports your arch. Repeated strain can cause tiny tears in the ligament. These lead to pain and swelling. During walking, the plantar fascia experiences tension up to twice the body weight with each step. While this is normal, those who spend much time on their feet, such as nurses, waiter/waitress captain/waiters, and mail carriers, often experience plantar fasciitis. Athletes involved in tennis or other racquet sports, race walking, jogging or running also show a higher incidence of plantar fasciitis than do those participating in other activities. Thus, it's clear that plantar fasciitis is predominantly an overuse injury. In fact, any activity that results in prolonged tension and stress on the plantar fascia may cause plantar fasciitis. It is possible that changes in footwear may play a role in causing plantar fasciitis, no matter what activity is occurring. Those who are overweight are prone to plantar fasciitis. This is true even for sedentary people who get little physical activity. Abnormalities of the foot and ankle joints may predispose some individuals to development of plantar fasciitis (specifically, over pronation of the subtalar joint). Contributing Factors * Flat feet * Toe running, hill running * Sudden weight increase * High-arched, rigid feet * Soft terrain, e.g. running on sand * Obesity * Pronated feet (rolled inward) * Sudden increase in activity * Family tendency * Poor shoe support * Worn out or poorly fitted shoes * Increasing age * Walking, standing or running for long periods of time, especially on hard surfaces. How is the Injury Treated? Rest Your Feet: Limit, or if possible, stop activities that are causing your heel pain. Try to avoid running or walking on hard surfaces, such as concrete. Use pain as your guide. If your foot is too painful, rest it. Ice: Ice the sore area for 30 to 60 minutes, several times a day, to reduce inflammation and relieve pain. Apply a plastic bag of crushed ice (or a bag of frozen peas) over a towel. Ice the sore area for 15 minutes after activity/exercise. Application of heat is not generally recommended, as heat expands the bone and connective tissue, perhaps exerting greater pressure on nerves and thereby increasing pain. If heat is used, follow it with ice. Medication: If your condition developed recently, anti-inflammatory/analgesic medication, combined with heel pads (see below) may be all that is necessary to relieve pain and to reduce inflammation. If no pain relief has occurred after 2-3 weeks, however, your doctor may inject either cortisone or local anesthetic directly into the tender area. Exercises: Do simple exercises, such as calf stretches and towel stretches (see below) several times a day, especially when you first get up in the morning. These can help your ligament become more flexible and strengthen the muscles that support your arch. Shoes: Poorly fitting shoes can cause plantar fasciitis. The best type of shoe to wear is a good walking or running shoe with good shock absorption and excellent arch support. You should choose the one that fits the best. [place] with your athletic shoes to find a pair that is comfortable and causes fewer symptoms. Put your shoes on as soon as you get out of bed; going barefoot or wearing slippers may make your pain worse. Good brands include (but are not limited to): [employer] Kar[employer] Balance, Asics, Saucony, SAS and Merrel s. Taping: Your doctor may tape your foot to maintain the arch. This takes some of the tension off the plantar fascia. Weight Loss: If your weight is putting extra stress on your feet, your doctor may encourage you to try a weight-loss program. Orthotics: An orthotic insole is a molded piece of rubber, plastic, or other material that you insert into your shoe. It corrects the alignment of your foot and cushions your foot from excessive pounding. These may be prescription or non-prescription. Prescription orthotics are custom-fitted and may fit better and control pain better, but are very expensive. Night Splints: A night splint holds the foot with the toes pointed up and the ankle at a 90-degree angle. This position applies a constant, gentle stretch to the plantar fascia. Corticosteroid Shots: Steroids may be injected into the tender area to reduce inflammation. REHAB Exercises to stretch the plantar fascia, the calf muscles, and the Achilles tendon. Tightness of the muscles of the calves may contribute to plantar fasciitis, so stretching the calf muscles is important to rehabilitation, as is stretching of the plantar fascia itself. Plantar fascial stretches Assisted Dorsiflexion/Plantar Fascia Stretch: Sit on the floor or ground, barefoot, with both legs outstretched. Use a towel or elastic band and wrap it around the ball (and not the toes) of the affected foot. Use the towel or elastic band to provide resistance to upward movement of the forefoot. Pull foot upward (toward your body) with the help of the elastic band or towel, and then return to the starting position. Ten repetitions are recommended. Perform the sequence at least three times a day. Alternate Plantar Fascia Stretch: Sit upright in a chair, barefoot. Place the ankle of the affected foot on your opposite knee. Using the same hand as the affected foot, reach across and grab the toes. Flex the ankle toward and pull the toes toward the kitchen. To test the stretch, place the thumb of your hand on the bottom of the foot. You should be able to feel the cord-like plantar fascia, running the length of the foot. Hold the stretch for a count of 10, then relax. Repeat 10 times. Do the sequence at least three times a day. Achilles/Calf Stretches Strengthening the muscles of the calves may contribute to successful rehabilitation of plantar fasciitis, as well as prevent reoccurrence. The exercises below will help strengthen the calf muscles. Calf and Achilles Tendon Stretch (Gastrocnemius Stretch): Face a wall, standing an arm's length away. Place one foot back. Place both hands on the wall. Bend the elbows and knee of your forward leg, keeping the heel of the backward foot on the floor and keeping your body straight (aligned), until your forehead nearly touches the wall, or until significant stretch is felt in the muscles of the calf of the backward leg. Hold this position for 10 to 15 seconds. Extend elbows (straighten your arms and stand upright again) and maintain this position for 10 seconds. Repeat this cycle 15 to 20 times. Switch legs and repeat the exercise. documented in this encounter [facility] 01-08-2024 Note HNO ID: [id number] Author: AYLEEN PICHARDO, ? Service: ? Author Type: Physician Type: Progress Notes Filed: 01/09/2024 07:46 Note Text: Consultation requested by Dr. Hunter for an opinion regarding left ankle pain. My final recommendations will be communicated back to the requesting physician by way of shared Medical record or letter to requesting physician via US mail. Initial Podiatric Office Visit: Chief Complaint: This 38 year old female who presents with chief complaint:left anlke sprain HPI Patient presents to clinic for evaluation of left ankle. States that about 5 weeks ago, she fell and rolled her left ankle. She developed pain so she went to the ER ([facility] She was recommended air cast, rest and nsaid. Pain failed to improve. Patient later presented to urgent care a few weeks later. She was recmmended the same treatment She continues to use the air cast but only off and on. She states the air cast is hard to wear with a work boot. Patient is currently taking ibuprofen but that does not really help Patient states the pain is mostly along the left ankle and plantar arch. PAIN EVALUATION 01/08/2024 1448 Pain Level: 5 Description: Throbbing Duration Amount of Time: 5 Duration Units: Weeks Frequency: Continuous Intervention/Comfort measure: Relaxation;Reposition;Medication No results found for: HBA1C PCP: Kemar Mantilla MD PAST MEDICAL HISTORY Diagnosis Date Adjustment disorder with depressed mood Ectopic 12/2022 IIH (idiopathic intracranial hypertension) PMH - PAST MEDICAL HISTORY OF 11/10/93-color vision normal hypertension PTSD (post-traumatic stress disorder) Unequal pupils left > right Current Outpatient Medications Medication Sig venlafaxine ER (EFFEXOR XR) 75 mg 24 hr capsule Take 1 capsule by mouth every afternoon. Miscellaneous Medical Supply (BLOOD PRESSURE CUFF) 1 Each once daily. ibuprofen (MOTRIN) 600 mg tablet Take 600 mg by mouth every 6 hours as needed. acetaZOLAMIDE SR (DIAMOX SEQUELS) 500 mg capsule Take 1 capsule by mouth twice daily. No current facility-administered medications for this visit. 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 FAMILY HISTORY Adopted: Yes Problem Relation Age of Onset Cancer Maternal Aunt Social History Tobacco Use Smoking status: Never Smokeless tobacco: Never Vaping Use Vaping Use: Never used Substance Use Topics Alcohol use: Yes Comment: very rare Drug use: No REVIEW OF SYSTEMS GENERAL: Negative for Malaise, significant weight loss, fever RESPIRATORY: Negative for cough, wheezing and shortness of breath CARDIOVASCULAR: Negative for chest pain, leg swelling and palpitations GI: Negative for abdominal discomfort, blood in stools or black stools and change in bowel habits : Negative for dysuria, frequency and incontinence MUSCULOSKELETAL: Negative for joint pain or swelling, back pain, and muscle pain. SKIN: Negative for lesions, rash, and itching. HEMATOLOGY/LYMPHOLOGY Negative for prolonged bleeding, bruising easily, and swollen nodes. ENDOCRINE: Negative for cold or heat intolerance, polyuria, polydipsia and goiter. NEURO: negative Physical Exam: Constitutional: Pt is a well developed 38 year old female who is alert, oriented and cooperative Eyes: Following during examination. No redness or drainage. Respiratory: RR normal and nonlabored. Even breathing. No evidence of distress or shortness of breath. Psychology: Patient is engaged during conversation. Normal affect and mood. Does not appear depressed or anxious during encounter. Vascular: Dorsalis pedis and posterior tibial pulses palpable as b/l Capillary Fill time < 5 seconds to digits 1-5 b/l Skin temperature warm to warm proximal to distal b/l Hair growth present to digits Neurological: intact light touch/epicritic sensation b/l intact protective sensation no significant neurological deficits Dermatological: Nails 1-5 b/l appear normal. Webspaces clean and dry 1-4 b/l. Skin appears well hydrated and supple. good color, texture, turgor. No open lesions present. No callosities present. Musculoskeletal/Orthopaedic: Patient has pain to palpation of left lateral ankle along atfl and cft. Patient has pain to palpation of left medial calcaneal tubercle Foot type is neutral structu (more content not included)... [facility] 01-08-2024 History of Present illness Narrative Consultation requested by Dr. Hunter for an opinion regarding left ankle pain. My final recommendations will be communicated back to the requesting physician by way of shared Medical record or letter to requesting physician via [place] mail. Initial Podiatric Office Visit: Chief Complaint: This 38 year old female who presents with chief complaint:left anlke sprain HPI Patient presents to clinic for evaluation of left ankle. States that about 5 weeks ago, she fell and rolled her left ankle. She developed pain so she went to the ER ([facility] She was recommended air cast, rest and nsaid. Pain failed to improve. Patient later presented to urgent care a few weeks later. She was recmmended the same treatment She continues to use the air cast but only off and on. She states the air cast is hard to wear with a work boot. Patient is currently taking ibuprofen but that does not really help Patient states the pain is mostly along the left ankle and plantar arch. PAIN EVALUATION 01/08/2024 0128 Pain Level: 5 Description: Throbbing Duration Amount of Time: 5 Duration Units: Weeks Frequency: Continuous Intervention/Comfort measure: Relaxation;Reposition;Medication No results found for: HBA1C PCP: Kemar Mantilla MD PAST MEDICAL HISTORY Diagnosis Date Adjustment disorder with depressed mood Ectopic 12/2022 IIH (idiopathic intracranial hypertension) PMH - PAST MEDICAL HISTORY OF 11/10/93-color vision normal hypertension PTSD (post-traumatic stress disorder) Unequal pupils left > right Current Outpatient Medications Medication Sig venlafaxine ER (EFFEXOR XR) 75 mg 24 hr capsule Take 1 capsule by mouth every afternoon. Miscellaneous Medical Supply (BLOOD PRESSURE CUFF) 1 Each once daily. ibuprofen (MOTRIN) 600 mg tablet Take 600 mg by mouth every 6 hours as needed. acetaZOLAMIDE SR (DIAMOX SEQUELS) 500 mg capsule Take 1 capsule by mouth twice daily. No current facility-administered medications for this visit. 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 FAMILY HISTORY Adopted: Yes Problem Relation Age of Onset Cancer Maternal Aunt Social History Tobacco Use Smoking status: Never Smokeless tobacco: Never Vaping Use Vaping Use: Never used Substance Use Topics Alcohol use: Yes Comment: very rare Drug use: No REVIEW OF SYSTEMS GENERAL: Negative for Malaise, significant weight loss, fever RESPIRATORY: Negative for cough, wheezing and shortness of breath CARDIOVASCULAR: Negative for chest pain, leg swelling and palpitations GI: Negative for abdominal discomfort, blood in stools or black stools and change in bowel habits : Negative for dysuria, frequency and incontinence MUSCULOSKELETAL: Negative for joint pain or swelling, back pain, and muscle pain. SKIN: Negative for lesions, rash, and itching. HEMATOLOGY/LYMPHOLOGY Negative for prolonged bleeding, bruising easily, and swollen nodes. ENDOCRINE: Negative for cold or heat intolerance, polyuria, polydipsia and goiter. NEURO: negative Physical Exam: Constitutional: Pt is a well developed 38 year old female who is alert, oriented and cooperative Eyes: Following during examination. No redness or drainage. Respiratory: RR normal and nonlabored. Even breathing. No evidence of distress or shortness of breath. Psychology: Patient is engaged during conversation. Normal affect and mood. Does not appear depressed or anxious during encounter. Vascular: Dorsalis pedis and posterior tibial pulses palpable as b/l Capillary Fill time < 5 seconds to digits 1-5 b/l Skin temperature warm to warm proximal to distal b/l Hair growth present to digits Neurological: intact light touch/epicritic sensation b/l intact protective sensation no significant neurological deficits Dermatological: Nails 1-5 b/l appear normal. Webspaces clean and dry 1-4 b/l. Skin appears well hydrated and supple. good color, texture, turgor. No open lesions present. No callosities present. Musculoskeletal/Orthopaedic: Patient has pain to palpation of left lateral ankle along atfl and cft. Patient has pain to palpation of left medial calcaneal tubercle Foot type is neutral structurally AJ ROM is full with knee extended and flexed 1st MPJ is full when loaded and no pain or crepitus are noted with ROM. No laxity noted to left ankle MTJ, STJ are full and free of pain and crepitus. +5/5 muscle strength dorsiflexion, plantarflexion, inversion, eversion b/l Radiographs: 3 views left ankle and foot reviewed January 08, 2024: I have personally reviewed and interpreted these XR myself: no acute fracture noted ASSESSMENT: (S93.402A) Sprain of left ankle, unspecified ligament, initial encounter (primary encounter diagnosis) (M25.572) Acute left ankle pain (M79.672) Foot pain, left (M72.2) Plantar fasciitis of left foot PLAN: 1. History and physical examination performed. 2. XR reviewed with patient and interpreted today 3. Discussed sprain of left ankle. Recommend ankle brace vs inserts and referral to physical therapy. If pain fails to improve, consider boot and mri. 4. Discussed left heel pain. Suspect component of plantar fasciitis related to compensation. Recommend inserts, stretching, referral to therapy. If pain fails to improve, consider steroid injection. Ayleen Pichardo DPM Podiatry [facility] [address] [facility] [id number] Dept: [phone] Dept AMB ROOMING INTAKE FLOWSHEET DATA Pain Pain Level: 5 Description: Throbbing Duration Amount of Time: 5 Duration Units: Weeks Frequency: Continuous Intervention/Comfort measure: Relaxation, Reposition, Medication Patient presents with: Left Ankle - New, Swelling, Pain Thi Haynes LPN documented in this encounter [facility] 01-08-2024 Note HNO ID: [id number] Author: THI HAYNES LPN Service: ? Author Type: LICENSED NURSE Type: Progress Notes Filed: 01/09/2024 07:46 Note Text: AMB ROOMING INTAKE FLOWSHEET DATA Pain Pain Level: 5 Description: Throbbing Duration Amount of Time: 5 Duration Units: Weeks Frequency: Continuous Intervention/Comfort measure: Relaxation, Reposition, Medication Patient presents with: Left Ankle - New, Swelling, Pain Thi Haynes LPN [facility] [place] [facility] [place] 12-13-2023 History of Present illness Narrative Radiology Service Progress Note PATIENT NAME: Sondra Blanco DATE OF SERVICE: December 13, 2023 TIME: 4:25 PM PATIENT IDENTITY VERIFICATION COMPLETED USING TWO (2) IDENTIFIERS: Name and Date of confirmed by patient verbally. FALL SCREENING: Has the patient had 2 falls in the last year or 1 fall with injury or currently using an Ambulatory Assistive Device (Walker, Cane, Wheelchair, Crutches, etc.)? No PATIENT GENDER DATA: Female. status: : No status: NO. PATIENT RELEVANT IMPLANT DATA REVIEWED: Yes PATIENT PRESENTS WITH AN IMPLANTABLE OR ATTACHED ROLL SKINNER: No RADIOLOGY DEPARTMENT: General X-ray: Exam(s) Completed: Lower Extremity X-Ray(s): Ankle, Left and Foot, Left PERIPHERAL IV DATA: Not applicable SIGNED BY: RT Darinel(Bentley) December 13, 2023 4:25 PM documented in this encounter [facility] 12-13-2023 Note HNO ID: [id number] Author: SAMM MAY RT(R) Service: ? Author Type: Manufacturing Sr Engineer Type: Progress Notes Filed: 12/13/2023 16:36 Note Text: Radiology Service Progress Note PATIENT NAME: Sondra Blanco DATE OF SERVICE: December 13, 2023 TIME: 4:25 PM PATIENT IDENTITY VERIFICATION COMPLETED USING TWO (2) IDENTIFIERS: Name and Date of confirmed by patient verbally. FALL SCREENING: Has the patient had 2 falls in the last year or 1 fall with injury or currently using an Ambulatory Assistive Device (Walker, Cane, Wheelchair, Crutches, etc.)? No PATIENT GENDER DATA: Female. status: : No status: NO. PATIENT RELEVANT IMPLANT DATA REVIEWED: Yes PATIENT PRESENTS WITH AN IMPLANTABLE OR ATTACHED ROLL SKINNER: No RADIOLOGY DEPARTMENT: General X-ray: Exam(s) Completed: Lower Extremity X-Ray(s): Ankle, Left and Foot, Left PERIPHERAL IV DATA: Not applicable SIGNED BY: ROBERTO Tena) December 13, 2023 4:25 PM [facility] [place] [facility] 12-13-2023 Note HNO ID: [id number] Author: DANIELLE HUNTER APRN.DIE STORAGE CLERK Service: ? Author Type: Nurse Practitioner Type: Progress Notes Filed: 12/13/2023 17:32 Note Text: This note was created using NoteWriter. Subjective Sondra Blanco is a 38 year old female. 38 year old female with PMH migraine, HTN, depression and PTSD presents for musculoskeletal problems. Acute onset 3 weeks ago Endorses she stepped out of a feed bunk, that was unlevel States she ultimately fell, and felt a crack in left ankle +pain +ecchymosis +swelling Has been weight bearing,. Endorses pain is waxing and waning I am fine one minute and the next I can barely walk She was seen at [facility]. I don't feel like they did a good xray and didn't really evaluate me States she was recommended to wear an air cast, but has not been wearing. Presents today requesting re examination and xrays The history is provided by the patient. No world language teacher was used. Trauma This is a new problem. The current episode started 1 to 4 weeks ago. The problem occurs constantly. The problem has been unchanged. Pertinent negatives include no abdominal pain, anorexia, arthralgias, change in bowel habit, chest pain, chills, congestion, coughing, diaphoresis, fatigue, fever, headaches, joint swelling, myalgias, nausea, neck pain, numbness, rash, sore throat, swollen glands, urinary symptoms, vertigo, visual change, vomiting or weakness. The symptoms are aggravated by walking, twisting and standing. She has tried rest and position changes for the symptoms. The treatment provided no relief. PAST MEDICAL HISTORY Diagnosis Date Adjustment disorder [...] ORDER ALLERGIES Tape [Adhesive Tape (Rosins)] MEDICATIONS Miscellaneous Medical Supply (BLOOD PRESSURE CUFF) 1 Each once daily. acetaZOLAMIDE SR (DIAMOX SEQUELS) 500 mg capsule Take 1 capsule by mouth twice daily. ibuprofen (MOTRIN) 600 mg tablet Take 600 mg by mouth every 6 hours as needed. lisinopril (ZESTRIL) 10 mg tablet Take 1 tablet by mouth once daily. (Patient not taking: Reported on 12/13/2023) FAMILY HISTORY Adopted: Yes Problem Relation Age of Onset Cancer Maternal Aunt Social History Tobacco Use Smoking status: Never Smokeless tobacco: Never Vaping Use Vaping Use: Never used Substance Use Topics Alcohol use: Yes Comment: very rare Drug use: No Review of Systems Constitutional: Negative for chills, diaphoresis, fatigue and fever. HENT: Negative for congestion and sore throat. Eyes: Negative for pain, discharge, redness and itching. Respiratory: Negative for apnea, cough and chest tightness. Cardiovascular: Negative for chest pain, palpitations and leg swelling. Gastrointestinal: Negative for abdominal pain, anorexia, change in bowel habit, nausea and vomiting. Musculoskeletal: Negative for arthralgias, joint swelling, myalgias and neck pain. Left ankle and left foot Skin: Negative for color change, pallor and rash. Allergic/Immunologic: Negative for environmental allergies, food allergies and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 condition and have read and understand these discharge instructions. I have received a written copy of the plan/instructions. If I have questions, I am aware that I should contact my doctor. 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: _ Date/Time: Relationship to Patient: Witness Name/Signature: Date/Time: [facility] 02-12-2023 Anesthesiology Consult note Patient: SONDRA BLANCO Age: 37 years Sex: Female : 1985 [...] by MADHAV BROWN on 02/12/2023 10:53 PM [facility] 02-12-2023 Anesthesiology Consult note Patient: SONDRA BLANCO Age: 37 years Sex: Female : 1985 [...] Problem list: Medical Anxiety / SNOMED CT 36983854 / Confirmed Ectopic / SNOMED CT 06521027 / Confirmed Hypertension / SNOMED CT 33791677 / Confirmed Kidney stone / SNOMED CT [id number] / Confirmed Ovarian cyst / SNOMED CT [id number] / Confirmed Possible , not confirmed / SNOMED CT [id number] / Possible, Active Problems (6) Anxiety Ectopic Hypertension Kidney stone Ovarian cyst Possible , not confirmed Histories Past Medical History: Active Anxiety (73933031) Hypertension (67445542) Ovarian cyst ([id number]) , cerebral pseudotumor, Family History: Patient was adopted. History is unknown. Procedure history: section (43319821). Cholecystectomy (00460303). Hernia (716889537). Social History Social & Psychosocial Habits Alcohol [...] (FEB 12 17:27) DBPC 104mmHg (FEB 12 17:) Measurements from flowsheet : Measurements 02/12/2023 17:27 EDT Height 167.6 cm Admission Weight 106.8 kg [place] Body Weight 59.26 kg Pain assessment: Pain [...] ED Patient History Form 02/12/2023 18:13 EDT [facility] Note (Modified) 02/12/2023 17:27 EDT Height 167.6 cm Admission Weight 106.8 kg [place] Body Weight 59.26 kg Temperature Oral 36.7 [...] Level of Consciousness Alert Eye Opening Response Eduin Spontaneously Best Motor Response [place] Obeys simple commands Best Verbal Response [place] Oriented Eduin Coma Score 15 Violence Risk [...] No Weight Loss No Preferred Written Language Omani Preferred Spoken Language Omani Tracking Group ED AO Tracking Group Tracking [...] EDT CSummary CSUMMARY . Assessment and Plan [place] Society of Anesthesiologists (ASA) physical status classification: Class III, E. Anesthetic Preoperative Plan Premedication: intravenous. Anesthetic technique: General. Induction: intravenously. Maintenance airway: Oral endotracheal tube. Postoperative pain management: Per surgeon. Risks discussed: nausea, vomiting, headache, sore throat, dental injury, hypotension, allergic reaction, serious complications. Informed consent: signed by patient. Digitally Signed by MADHAV BROWN on 02/12/2023 08:42 PM [facility] 02-12-2023 Evaluation + Plan note Diagnostic Tests PendingBasic Metabolic Panel 02/12/23Complete Blood Count 02/12/23 [facility] 02-07-2023 Hospital Discharge instructions Patient Education 02/07/2023 19:27:55 Methotrexate for [...] or as directed by your healthcare provider [id number] [employer]. [address] [place] [address], [place] [address]. All rights reserved. This information is not intended as a substitute for professional medical care. Always follow your healthcare professional's instructions. Follow Up Care 02/07/2023 16:56:38 With:SEEMA BULLOCK DO Address: [address] [place] [address] [phone] When:1-2 days [facility] 02-07-2023 Note Discharge Instructions Thank you for allowing [facility] to assist you with your healthcare needs. [...] BULLOCK DO When Within 1-2 days Where: [address] [place] [phone] Allergies Tape Medications Please ask your primary [...] Leaflets ondansetron (oral) (on SHELDON se karen) Zofran, Zofran ODT, Zshreya What is the most important information I [...] may report side effects to FDA at 1-016-HDH-3266. What other drugs will affect ondansetron? Ondansetron [...] interact with ondansetron. This includes prescription and tlco-poa-zttvloc medicines, vitamins, and herbal products. Give a [...] to ensure that the information provided by [employer] ('[employer]') is accurate, up-to-date, and complete, but no guarantee is made to that effect. Drug information contained herein may be time sensitive. [employer] information has been compiled for use by healthcare practitioners and consumers in the [place] and therefore [employer] does not warrant that uses outside of the [place] are appropriate, unless specifically indicated otherwise. [employer]'s drug information does not endorse drugs, diagnose patients or recommend therapy. [employer] drug information is an informational resource designed [...] effective or appropriate for any given patient. [facility] does not assume any responsibility for any aspect of healthcare administered with the aid of information [facility] provides. The information contained herein is not intended to cover all possible uses, directions, precautions, warnings, drug interactions, allergic reactions, or adverse effects. If you have questions about the drugs you are taking, check with your doctor, nurse or pharmacist. Copyright 4645-9909 [employer] Version: 13.. Revision Date: 06/30/2016. oxycodone (ox [...] The extended-release form of oxycodone is for yqamll-qvv-aaahx treatment of pain and should not be [...] against the law. Stop taking all other fmafrp-pcu-jikdw opioid pain medicines when you start taking [...] may report side effects to FDA at 2-861-WAT-1318. What other drugs will affect oxycodone? You [...] may affect oxycodone. This includes prescription and qipl-wtu-jzxnlpx medicines, vitamins, and herbal products. Not all [...] to ensure that the information provided by [employer]') is accurate, up-to-date, and complete, but no guarantee is made to that effect. Drug information contained herein may be time sensitive. [employer] information has been compiled for use by healthcare practitioners and consumers in the [place] and therefore [employer] does not warrant that uses outside of the [place] are appropriate, unless specifically indicated otherwise. [employer]'s drug information does not endorse drugs, diagnose patients or recommend therapy. [facility] drug information is an informational resource designed [...] effective or appropriate for any given patient. [facility] does not assume any responsibility for any aspect of healthcare administered with the aid of information [facility] provides. The information contained herein is not intended to cover all possible uses, directions, precautions, warnings, drug interactions, allergic reactions, or adverse effects. If you have questions about the drugs you are taking, check with your doctor, nurse or pharmacist. Copyright 5214-0117 [facility] [employer]. Version: 14.02. Revision Date: 10/07/2020. Education Materials [...] or as directed by your healthcare provider [phone] [employer]. [address] [place] [address], [place] [address]. All rights reserved. This information is not intended as a substitute for professional medical care. Always follow your healthcare professional's instructions. Additional Information VACCINATE! IT SAVES LIVES! Members of the community who have not yet received the COVID-19 vaccine and would like to receive it can visit one of [facility] vaccine clinics. There are many vaccine clinic locations within the [facility]. For locations and available times, please visit [email or web address] It is important to note that some COVID mobile vaccine clinics are held outdoors and may be canceled in rainy or stormy conditions. To learn more about pediatric vaccinations (ages 5-11), we invite you to visit the [facility] webpage. https://www.akronThe Learning ExperienceAcademys.org/pages/2 366-Puvjk-Zhygaxxlllf-Frequently-Asked -Questions.html To learn more about the COVID-19 vaccine, we invite you to visit the CDC website for a list of frequently asked questions. https://www.cdc.gov/coronavirus/2019-n cov/vaccines/faq.html [facility] Patient Portal Access Instructions: Stay connected with your healthcare team and access your personal medical information anytime with the [facility] Patient Portal. If you would like a full copy of your medical records please contact the [facility] Medical Records Department Sunday through Sunday between 8a.m. and 4:30p.m. Please follow the directions below to access the portal: 1.Access the email account you provided upon registration to the hospital.2.Look for an invitation email from [facility].3.Open the email and access the invitation link: Accept Invitation to [facility]4.Fill in the required carson to create your account. Sign into [email or web address].[email or web address] with your username and password that you [...] you will allow to register on the [facility] Patient Portal for access to your information. You can also access the [facility] Patient Portal on the [employer] jin. Simply click on Health Records under Health Data and then click on the Laura logo. HOW TO SAFELY DISPOSE OF PRESCRIPTION [...] Call your local pharmacy or go to [email or web address] Sing [email or web address] to find one close to you.3.Make use of household items: Use cat litter or old coffee grounds to dispose medications if other options are not available. Mix your drugs with these household products, seal them in an airtight container and throw it into the garbage. Call [facility]: [phone] to be sure your drugs can be [...] been reviewed and explained to me and IBELLA SHARON E understand my current condition and have read and understand these discharge instructions. I have received a written copy of the plan/instructions. If I have questions, I am aware that I should contact my doctor. 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 care triage with a chief complaint of feeling [...] was called and she was transferred to [facility]. 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 [facility] Evaluation + Plan note Future Appointments Appointment Date:05/23/2023 03:00:00 PM Scheduled Provider:CALISTA MAS MD Location:[facility] Appointment Type:Telephone [facility] Evaluation + Plan note Future Appointments Appointment Date:05/29/2023 01:00:00 PM Scheduled Provider: Location:[facility] Appointment Type:US Pelvis Non-OB W/Transvaginal Appointment Date:05/31/2023 10:50:00 AM Scheduled Provider:CALISTA MAS MD Location:[facility] Appointment Type:SO OV Follow Up Future Scheduled TestsUS Pelvis Non-OB W/Transvaginal 05/29/23 [facility] Evaluation + Plan note Future Appointments Appointment Date:05/31/2023 10:50:00 AM Scheduled Provider:CALISTA MAS MD Location:[facility] Appointment Type:SO OV Follow Up [facility] Evaluation note Diagnosis Near syncope- Primary Syncope and collapse Fever, unspecified fever cause [facility] Severe pain- Primary [facility] Diagnosis IIH (idiopathic intracranial hypertension)- Primary Benign intracranial hypertension Papilledema associated with increased intracranial pressure Migraine with aura and without status migrainosus, not intractable Migraine with aura, without mention of intractable migraine without mention of status migrainosus [facility] Acute left ankle pain- Primary Foot pain, left Pain in limb Fall, initial encounter [facility] Sprain of left ankle, unspecified ligament, initial encounter- Primary Acute left ankle pain Foot pain, left Pain in limb Plantar fasciitis of left foot Plantar fascial fibromatosis [facility] Diagnosis Idiopathic intracranial hypertension- Primary Benign intracranial hypertension Iris transillumination of left eye [facility] Diagnosis Acute otitis externa of left ear, unspecified type- Primary Otorrhea of left ear Otorrhea, unspecified IIH (idiopathic intracranial hypertension)- Primary Benign intracranial hypertension Other localized visual field defect, bilateral [facility] Diagnosis IIH (idiopathic intracranial hypertension)- Primary Benign intracranial hypertension Other localized visual field defect, bilateral Pulsatile tinnitus Unspecified tinnitus History of metabolic acidosis Personal history of other endocrine, metabolic, and immunity disorders Rhinorrhea Other diseases of nasal cavity and sinuses [facility] Diagnosis IIH (idiopathic intracranial hypertension)- Primary Benign intracranial hypertension [facility] Diagnosis Hypertension- Primary Unspecified essential hypertension Pain Generalized pain Post depression Mental disorders of mother, Pulmonary nodule Solitary pulmonary nodule Pulmonary nodule- Primary Solitary pulmonary nodule Post depression Mental disorders of mother, Hypertension Unspecified essential hypertension Major depressive disorder- Primary Major depressive disorder, single episode, unspecified Panic attacks Panic disorder without agoraphobia Injury of left wrist, initial encounter- Primary [facility]* Diagnosis Hypertension- Primary Unspecified essential hypertension Pain Generalized pain Post depression Mental disorders of mother, Pulmonary nodule Solitary pulmonary nodule Pulmonary nodule- Primary Solitary pulmonary nodule Post depression Mental disorders of mother, Hypertension Unspecified essential hypertension Major depressive disorder- Primary Major depressive disorder, single episode, unspecified Panic attacks Panic disorder without agoraphobia IIH (idiopathic intracranial hypertension) Benign intracranial hypertension Pulsatile tinnitus Unspecified tinnitus [facility]* Diagnosis Hypertension- Primary Unspecified essential hypertension Pain Generalized pain Post depression Mental disorders of mother, Pulmonary nodule Solitary pulmonary nodule Pulmonary nodule- Primary Solitary pulmonary nodule Post depression Mental disorders of mother, Hypertension Unspecified essential hypertension Major depressive disorder- Primary Major depressive disorder, single episode, unspecified Panic attacks Panic disorder without agoraphobia IIH (idiopathic intracranial hypertension)- Primary Benign intracranial hypertension Pulsatile tinnitus Unspecified tinnitus [facility] Hypertension- Primary Unspecified essential hypertension Pain Generalized pain Post depression Mental disorders of mother, Pulmonary nodule Solitary pulmonary nodule Pulmonary nodule- Primary Solitary pulmonary nodule Post depression Mental disorders of mother, Hypertension Unspecified essential hypertension Major depressive disorder- Primary Major depressive disorder, single episode, unspecified Panic attacks Panic disorder without agoraphobia Acute left ankle pain Foot pain, left Pain in limb Fall, initial encounter [facility] Diagnosis Hypertension- Primary Unspecified essential hypertension Pain Generalized pain Post depression Mental disorders of mother, Pulmonary nodule Solitary pulmonary nodule Pulmonary nodule- Primary Solitary pulmonary nodule Post depression Mental disorders of mother, Hypertension Unspecified essential hypertension Major depressive disorder- Primary Major depressive disorder, single episode, unspecified Panic attacks Panic disorder without agoraphobia IIH (idiopathic intracranial hypertension)- Primary Benign intracranial hypertension Papilledema associated with increased intracranial pressure [facility] Hypertension- Primary Unspecified essential hypertension Pain Generalized pain Post depression Mental disorders of mother, Pulmonary nodule Solitary pulmonary nodule Pulmonary nodule- Primary Solitary pulmonary nodule Post depression Mental disorders of mother, Hypertension Unspecified essential hypertension Major depressive disorder- Primary Major depressive disorder, single episode, unspecified Panic attacks Panic disorder without agoraphobia IIH (idiopathic intracranial hypertension) Benign intracranial hypertension [facility]* Diagnosis Hypertension- Primary Unspecified essential hypertension Pain Generalized pain Post depression Mental disorders of mother, Pulmonary nodule Solitary pulmonary nodule Pulmonary nodule- Primary Solitary pulmonary nodule Post depression Mental disorders of mother, Hypertension Unspecified essential hypertension Major depressive disorder- Primary Major depressive disorder, single episode, unspecified Panic attacks Panic disorder without agoraphobia Disorder of intracranial venous sinus- Primary Intracranial hypertension Benign intracranial hypertension IIH (idiopathic intracranial hypertension) Benign intracranial hypertension Papilledema associated with increased intracranial pressure documented in this encounter [facility] Discharge instructions No data available for this section [facility] Note* LEYLA Fernandez: PERFORM Event Display: Barbeau History and Physical Authored Date: [facility] Progress note No data available for this section [facility] Reason for referral (narrative)* Diagnostic Procedure Only (Urgent) - New Request Specialty Diagnoses / Procedures Referred By Jalenac t Referred To Contact XR IMAGING Diagnoses Injury of left wrist, initial encounter Procedures XR WRIST GENERAL 3V PA/LAT/OBL LEFT RADEX WRIST COMPLETE MINIMUM 3 VIEWS Adwoa Mosley APRN.CNP [address] [place] [address] [place] [id number] Referral ID Status Reason Start Date Expiration Date Visits Requested Visits Authorized [id number] New Request Auto-Generat ed Referral 04/27/2024 05/27/2025 1 1 [facility] for referral (narrative)* Diagnostic Procedure Only (Urgent) - Closed Specialty Diagnoses / Procedures Referred By Contac t Referred To Contact XR IMAGING Diagnoses Acute left ankle pain Foot pain, left Fall, initial encounter Procedures XR ANKLE GENERAL 3V AP/LAT/OBL LEFT RADEX ANKLE COMPLETE MINIMUM 3 VIEWS Danielle Hunter APRN.DIE STORAGE CLERK [address] [place] [address] [place] [address] Referral ID Status Reason Start Date Expiration Date V isits Requested Visits Authorized [id number] Closed Auto-Generate d Referral 12/13/2023 01/11/2025 1 1 * Diagnostic Procedure Only (Urgent) - Closed Specialty Diagnoses / Procedures Referred By Contac t Referred To Contact XR IMAGING Diagnoses Acute left ankle pain Foot pain, left Fall, initial encounter Procedures XR FOOT GENERAL 3V AP/LAT/OBL LEFT RADEX FOOT COMPLETE MINIMUM 3 VIEWS Danielle Hunter APRN.DIE STORAGE CLERK [address] [place] [address] [place] [address] Referral ID Status Reason Start Date Expiration Date V isits Requested Visits Authorized [id number] Closed Auto-Generate d Referral 12/13/2023 01/11/2025 1 1 [facility] for visit Narrative* Diagnostic Procedure Only (Urgent) - Closed Specialty Diagnoses / Procedures Referred By Contac t Referred To Contact XR IMAGING Diagnoses Acute left ankle pain Foot pain, left Fall, initial encounter Procedures XR FOOT GENERAL 3V AP/LAT/OBL LEFT RADEX FOOT COMPLETE MINIMUM 3 VIEWS Danielle Hunter APRN.DIE STORAGE CLERK [address] [place] [address] [place] [address] Referral ID Status Reason Start Date Expiration Date V isits Requested Visits Authorized [id number] Closed Auto-Generate d Referral 12/13/2023 01/11/2025 [address] 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 * Headache (Omani) * Epidural Blood Patch ([place]mani) documented in this encounter* Instructions* Altaf Mas MD - 05/25/2019 If unable to follow-up with Dr. Peralta for ophthalmology. To schedule your appointment, please call the following number: Ophthalmology [phone] Will need to follow-up with neurology as an outpatient Meet with social work at [facility] follow-up discuss HCAP Referral placed to [facility] bariatric clinic per patient request and after [...] tinnitus History of Present Illness * Cary Coughlin MD - 05/25/2019 11:24 AM EDT General Neurology Follow-up Date of Service: 05/25/2019 Chief complaint: Headache/vision change Subjective: Post LP ELDRIDGE better today-able to sit up. Medications: Scheduled [...] Urine 5.5 5.0 - 8.0 NA Specific [place], Urine 1.027 1.005 - 1.030 NA Occult [...] eGFR >60.0 >60 mL/min EGFR IF NonAfrican Honduran 59.0 >60 mL/min Calcium 8.8 8.4 - [...] # 3.5 1.0 - 4.3 10*3/uL Absolute [place]ulk[place] # 0.9 (H) 0.0 - 0.8 10*3/uL Absolute Eos # 0.1 0.0 - 0.5 10*3/uL Absolute Baso # 0.1 0.0 - 0.2 10*3/uL RADIOLOGY: MRI Brain w/wo contrast 05/22/19: 1. No acute intracranial findings. MRA Head w/o contrast 05/22/19: 1. No significant intracranial stenosis. MRA Neck w/wo contrast 9/12/19: No significant carotid stenosis (less than 50%) by NASCET criteria. MRV Head w/o contrast 05/22/19: No evidence of acute dural sinus thromboses. Neuroimaging and labs personally reviewed Assessment/Plan: 33 yo female who presents with acute on chronic ELDRIDGE and vision changes. 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 Muscle relaxant added by primary Low pressure ELDRIDGE -Post LP -Improved with IVF and caffeine [...] Date of Admission: 05/22/2019 Hospital Day: Sondra Blanco is a 33 y.o. Right handed Female [...] HEENT: Normocephalic. Sclerae Clear. 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 Rare polymorphonuclear cells/lpf. No organisms seen. 05/23/2019 6:48 PM - Jose, [facility] Incoming Lab Results From Soft/Medlab Component Value Ref Range & Units Status Collected Lab Appearance see below NA Final 05/23/2019 6:18 PM [facility] Clear and colorless Color, CSF see below NA Final 05/23/2019 6:18 PM [facility] Clear and colorless Nucleated Cells, CSF 0 0 - 5 cells/uL Final 05/23/2019 6:18 PM [facility] Red blood cells count, CSF 41 05/23/2019 6:53 [facility] Results From Soft/Medlab Component Value Ref Range & Units Status Collected Lab Protein, CSF 39.6 12.0 - 60.0 mg/dL Final 05/23/2019 6:18 PM [facility] 05/23/2019 7:37 [facility] Results From Soft/Medlab Component Value Ref Range & Units Status Collected Lab Glucose, CSF 73High 40 - 70 mg/dL Final 05/23/2019 6:18 PM [facility] Meningitis Encephalitis Panel 05/23/2019 5:28 PM [facility] NEGATIVE: No targets were detected by the [employer] Meningitis/Encephalitis PCR Panel. The [employer] Meningitis/Encephalitis Panel detects the following targets: Escherichia coli K1 Haemophilus influenzae Listeria monocytogenes Neisseria meningitidis Streptococcus agalactiae Streptococcus pneumoniae Cytomegalovirus Enterovirus Herpes simplex virus 1 Herpes simplex virus 2 Human Herpesvirus 6 Human Parechovirus Varicella zoster virus Cryptococcus neoformans/gattii Imaging: XA SPECIAL PROCEDURE Patient Name: SONDRA BLANCO ---Special Procedures--- Exam Date/Time 05/23/2019 17:29:59 EDT Exam XA Special Angiography Procedure Ordering Physician NEIL LATIF, CARLITOS Zhang Accession Number [id number] Reason For Exam lumbar puncture with opening [...] 05/23/2019 5:44 pm Addendum Dictating Physician: MD SWARTZ KEVIN Signed Date and Time: 05/23/2019 5:45 pm Signed by: MD SWARTZ KEVIN Transcribed Date and Time: 05/23/2019 5:44 Report CLINICAL HISTORY: Headache Procedures: Fluoroscopic-guided lumbar puncture. Physician: Dr. Swartz MEDICATIONS: Local lidocaine. EBL: Minimal. Contrast: None. [...] Dictated: 05/23/2019 5:26 pm Dictating Physician: MD SWARTZ KEVIN Signed Date and Time: 05/23/2019 5:28 pm Signed by: MD SWARTZ KEVIN Transcribed Date and Time: 05/23/2019 5:26 [...] FAANS Neurosurgery 05/24/2019 3:43 PM * Cary Coughlin MD - 05/24/2019 12:08 PM EDT General Neurology Follow-up Date of Service: 05/24/2019 Chief complaint: Headache/vision change Subjective: Patient had worsening ELDRIDGE when sitting up post LP-likely low pressure ELDRIDGE secondary to LP. Creatinine up today. Medications: [...] eGFR >60.0 >60 mL/min EGFR IF NonAfrican Honduran >60.0 >60 mL/min Calcium 9.7 8.4 - [...] female who presents with acute on chronic ELDRIDGE and vision changes. 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 Muscle relaxant added by primary Low pressure ELDRIDGE -Post LP -Would give IVF and encouraged caffeine -If no improvement by tomorrow, may require blood patch Elevated Cr -Will lower dose of diamox and would give IV fluid bolus -Will continue to trend * Julian Perez MD - 05/24/2019 9:55 AM EDT Med Team Progress Note Patient Name: Sondra Blanco : 1985 (33 y.o.) Date: May 24, [...] I have discussed the care of Sondra Blanco, including pertinent history and exam findings, with [...] left pupil dilation. 05/22/2019: direct admit from [place] with changing Headaches. Intermittently with bilateral eye dimvision. CTA at [place] benign. optho clinic at [place] showed bilateral papilledema. [facility]. Adm: MRI normal. LP with elevated Opening pressure c/w IIH. S: agree with resident's HPI. Patient feels much better today. Had some ELDRIDGE overnight but states that she feels much better today after the LP. She is hoping to go home. She lives in [place] and does not have a PCP as [...] O: agree with resident's exam. MRI Brain w/wo con: benign MRA Head/neck: benign MRV: Benign [...] team to d/w neurology re: decreasing diamox [id number] bid given prerenal XENIA. To follow up Outpatient - refer to bariatric surgery - patient quite interested. Pager: [phone] * Nirali Boone DTR - 05/24/2019 8:54 AM EDT Nutrition rescreen completed. Chart reviewed. Patient to be monitored and followed by the diet patient service technician pst. * Dequan Salinas DO - 05/24/2019 12:10 AM EDT Internal Medicine:Med Team Night Float Note Sondra Blanco : 1985(33 y.o.) Subjective: Paged by RN, [...] dry. Labs: Component Value Date/Time NA 139 05/23/2019 0033 K 4.0 05/23/2019 0033 CL 108 (H) 05/23/2019 0033 BUN 10 05/23/2019 0033 CREATININE 0.75 05/23/2019 0033 GLUCOSE 123 (H) 05/23/2019 0033 CALCIUM 9.4 05/23/20193 PROT 7.9 05/22/20192015 LABALBU 4.2 05/22/2019 2016 BILITOT 0.7 05/22/2019 2016 ALKPHOS 103 05/22/2019 2016 AST 19 05/22/2019 2016 ALT 15 05/22/20192015 Component Value Date/Time WBC 13.1 (H) 05/23/2019 0033 HGB 14.6 05/23/2019 0033 HCT 42.6 05/23/201932 PLT 307 05/23/201932 GRANULOCYTES 88.7 (H) 05/23/201932 LYMPHOPCT 9.8 (L) 05/23/201932 MONOPCT 1.1 (L) 05/23/201932 LABEOS 0.1 (L) 05/23/201932 BASOPCT 0.3 05/23/201932 NEUTROABS 11.6 (H) 05/23/201932 Impression: Post LP headache, no alarm symptoms [...] assessment/plan with my noted corrections ifany * Serafin Long DO - 05/23/2019 10:57 AM EDT Med Team Progress Note Sondra Blanco : 1985(33 y.o.) Date: May 23, 2019 Med Team: Gris Attending: Dr. Long Chief Complaint: Headache with [...] Patient received morphine 4mg IV x1 at [place] ED. Depression -Patient had a difficult and [...] . obesity BMI 30-39.9 Disposition: admit to [facility] I have discussed the care of Sondra Blanco with the medical student and resident. I [...] for attending comments. documented in this encounter Reason for Referral Specialty Diagnoses / Procedures Referred By Maddison javier Referred To Contact Diagnoses IIH (idiopathic intracranial hypertension) Procedures ENDOCRINE MEDICAL WEIGHT MANAGEMENT OFFICE/OUTPATIENT [facility] 60 MINUTES Silvestre Justice PA-C [address] [place] [address] Referral ID Status Reason Start Date Expiration Date Visits Requested Visits Authorized [id number] Authorized PCP Requested Referral 04/17/2024 04/17/2025 1 1 Specialty Diagnoses / Procedures Referred By Maddison javier Referred To Contact MR IMAGING Diagnoses IIH (idiopathic intracranial hypertension) Pulsatile tinnitus Procedures MRV BRAIN WO/W IVCON MRV BRAIN WO/W IVCON MRA; HEAD W & WO CONTRAST Allegra Colón MD [address] [place] [address] Mr Imaging [facility]95 Referral ID Status Reason Start Date Expiration Date Visits Requested Visits Authorized [id number] Pending Review Auto-Generat ed Referral 03/26/2024 04/25/2025 1 1 Specialty Diagnoses / Procedures Referred By Contac t Referred To Contact [facility] Diagnoses Sprain of left ankle, unspecified ligament, initial encounter Plantar fasciitis of left foot Procedures CONSULT TO PHYSICAL THERAPY PHYSICAL THERAPY EVALUATION [facility] 45 MINS Ayleen Pichardo [address] [place] [address] [facility] [place] [id number] Referral ID Status Reason Start Date Expiration Date Visits Requested Visits Authorized [id number] Authorized Auto-Generat ed Referral 09/10/2023 09/09/2024 30 30 Specialty Diagnoses / Procedures Referred By Contac t Referred To Contact Orthopedics Diagnoses Acute left ankle pain Foot pain, left Fall, initial encounter Procedures CONSULT PANEL TO ORTHOPAEDICS OFFICE/OUTPATIENT [facility] 60 MINUTES Danielle Hunter, CABIN OUTFITTER.DIE STORAGE CLERK [address] [place] [address] Referral ID Status Reason Start Date Expiration Date Visits Requested Visits Authorized [id number] Authorized PCP Requested Referral 12/13/2023 12/12/2024 1 1 Specialty Diagnoses / Procedures Referred By Contac t Referred To Contact XR IMAGING Diagnoses Acute left ankle pain Foot pain, left Fall, initial encounter Procedures XR ANKLE GENERAL 3V AP/LAT/OBL LEFT RADEX ANKLE COMPLETE MINIMUM 3 VIEWS Danielle Hunter, CABIN OUTFITTER.DIE STORAGE CLERK [address] [place] [address] [place] [address] Referral ID Status Reason Start Date Expiration Date V isits Requested Visits Authorized [id number] Closed Auto-Generate d Referral 12/13/2023 01/11/2025 1 1 Specialty Diagnoses / Procedures Referred By Contac t Referred To Contact XR IMAGING Diagnoses Acute left ankle pain Foot pain, left Fall, initial encounter Procedures XR FOOT GENERAL 3V AP/LAT/OBL LEFT RADEX FOOT COMPLETE MINIMUM 3 VIEWS Danielle Hunter APRN.DIE STORAGE CLERK [address] [place] [address] [place] [address] Referral ID Status Reason Start Date Expiration Date V isits Requested Visits Authorized [id number] Closed Auto-Generate d Referral 12/13/2023 01/11/2025 1 1 Additional Source Comments INFORMATION SOURCE (unrecogn ized section and content) DATE CREATED AUTHOR 03/06/[address] [facility] DATE CREATED AUTHOR AUTHOR'S ORGANIZ ATION 08/19/2018 [facility] DATE CREATED AUTHOR AUTHOR'S ORGANIZ ATION 07/07/2019 [facility] DATE CREATED AUTHOR AUTHOR'S ORGANIZ ATION 03/10/[address] [facility] ([place]) DATE CREATED AUTHOR AUTHOR'S ORGANIZ ATION 06/17/2024 [facility] DATE CREATED AUTHOR AUTHOR'S ORGANIZ ATION 06/23/2024 [facility] Reason for Visit (unrecogniz ed section and content) Reason Comments Radiology MRI Specialty Diagnoses / Procedures Referred By Contac t Referred To Contact MR IMAGING Diagnoses IIH (idiopathic intracranial hypertension) Pulsatile tinnitus Procedures MRV BRAIN WO/W IVCON MRV BRAIN WO/W IVCON MRA; HEAD W & WO CONTRAST Allegra Colón MD [address] [place] [id number] Mr Imaging [facility]95 Referral ID Status Reason Start Date Expiration Date V isits Requested Visits Authorized [id number] Closed Auto-Generate d Referral 04/30/2024 05/30/2024 3 3 Reason Comments Headache recent discharge [facility], history of pseudo tumor cerebral, transfer from [place] Dizziness Reason Comments Reason Comments Idiopathic intracranial hypertension Reason Comments Trauma Left ankle,swelling and bruising on outside of ankle x 3 weeks Reason Comments New Swelling Pain Specialty Diagnoses / Procedures Referred By Contac t Referred To Contact Orthopedics Diagnoses Acute left ankle pain Foot pain, left Fall, initial encounter Procedures CONSULT PANEL TO ORTHOPAEDICS OFFICE/OUTPATIENT NEW HIGH MDM 60 MINUTES Danielle Hunter APRN.DIE STORAGE CLERK [address] [place] [address] Referral ID Status Reason Start Date Expiration Date V isits Requested Visits Authorized [id number] Closed PCP Requested Referral 12/13/2023 12/12/2024 1 1 Reason Comments Clinical Update Reason Comments Visual Disturbance Reason Comments Ear Pain L ear x1 day Reason Comments Idiopathic intracranial hypertension Reason Comments New Patient Reason Comments Trauma Left arm injury x 2 days Reason Comments Radiology Pre Procedure Instructions Reason Comments Papilledema Follow Up Reason Comments Appointment Endovascular Referra l Future Appointment New Patient [place] [facility] in Reason Comments Appointment Reason Comments transvenous sinus stenosis Specialty Diagnoses / Procedures Referred By Contac t Referred To Contact ADMITTING Diagnoses IIH (idiopathic intracranial hypertension) IIH (idiopathic intracranial hypertension) [G93.2] Procedures DIAGNOSTIC LUMBAR SPINAL PUNCTURE SPINAL PUNCTURE LUMBAR DIAGNOSTIC [facility] [address] [place] [address] Referral ID Status Reason Start Date Expiration Date Visits Re quested Visits Authorized [id number] 1 1 Reason Comments New Patient Care Team (unrecognized sect ion and content) Care Team Personnel Name: PHYSICIAN, NONE Position: Physician Member Role: Primary Care Physician Care Team Related Persons Name: NONE, Name: BRENNA GOMEZ Address: Home [address] [id number] [place] Name: TALISHA GOMEZ Name: ОЛЬГА GRAJEDA Source Comments (unrecognize d section and content) In the event this informatio n is protected by the Federal Confidentiality of Alcohol and Drug Abuse Patient Records regulations: The Federal rules restrict any use of the information to criminally investigate or prosecute any alcohol or drug abuse patient.[facility] the event this information is protected by the Federal Confidentiality of Alcohol and Drug Abuse Patient Records regulations: The Federal rules restrict any use of the information to criminally investigate or prosecute any alcohol or drug abuse patient.[facility] the event this information is protected by the Federal Confidentiality of Alcohol and Drug Abuse Patient Records regulations: The Federal rules restrict any use of the information to criminally investigate or prosecute any alcohol or drug abuse patient.[facility] the event this information is protected by the Federal Confidentiality of Alcohol and Drug Abuse Patient Records regulations: The Federal rules restrict any use of the information to criminally investigate or prosecute any alcohol or drug abuse patient.[facility] the event this information is protected by the Federal Confidentiality of Alcohol and Drug Abuse Patient Records regulations: The Federal rules restrict any use of the information to criminally investigate or prosecute any alcohol or drug abuse patient.[facility] the event this information is protected by the Federal Confidentiality of Alcohol and Drug Abuse Patient Records regulations: The Federal rules restrict any use of the information to criminally investigate or prosecute any alcohol or drug abuse patient.[facility] the event this information is protected by the Federal Confidentiality of Alcohol and Drug Abuse Patient Records regulations: The Federal rules restrict any use of the information to criminally investigate or prosecute any alcohol or drug abuse patient.[facility] the event this information is protected by the Federal Confidentiality of Alcohol and Drug Abuse Patient Records regulations: The Federal rules restrict any use of the information to criminally investigate or prosecute any alcohol or drug abuse patient.[facility] the event this information is protected by the Federal Confidentiality of Alcohol and Drug Abuse Patient Records regulations: The Federal rules restrict any use of the information to criminally investigate or prosecute any alcohol or drug abuse patient.[facility] the event this information is protected by the Federal Confidentiality of Alcohol and Drug Abuse Patient Records regulations: The Federal rules restrict any use of the information to criminally investigate or prosecute any alcohol or drug abuse patient.[facility] the event this information is protected by the Federal Confidentiality of Alcohol and Drug Abuse Patient Records regulations: The Federal rules restrict any use of the information to criminally investigate or prosecute any alcohol or drug abuse patient.[facility] the event this information is protected by the Federal Confidentiality of Alcohol and Drug Abuse Patient Records regulations: The Federal rules restrict any use of the information to criminally investigate or prosecute any alcohol or drug abuse patient.[facility] the event this information is protected by the Federal Confidentiality of Alcohol and Drug Abuse Patient Records regulations: The Federal rules restrict any use of the information to criminally investigate or prosecute any alcohol or drug abuse patient.[facility] the event this information is protected by the Federal Confidentiality of Alcohol and Drug Abuse Patient Records regulations: The Federal rules restrict any use of the information to criminally investigate or prosecute any alcohol or drug abuse patient.[facility] the event this information is protected by the Federal Confidentiality of Alcohol and Drug Abuse Patient Records regulations: The Federal rules restrict any use of the information to criminally investigate or prosecute any alcohol or drug abuse patient.[facility] the event this information is protected by the Federal Confidentiality of Alcohol and Drug Abuse Patient Records regulations: The Federal rules restrict any use of the information to criminally investigate or prosecute any alcohol or drug abuse patient.[facility] the event this information is protected by the Federal Confidentiality of Alcohol and Drug Abuse Patient Records regulations: The Federal rules restrict any use of the information to criminally investigate or prosecute any alcohol or drug abuse patient.[facility] the event this information is protected by the Federal Confidentiality of Alcohol and Drug Abuse Patient Records regulations: The Federal rules restrict any use of the information to criminally investigate or prosecute any alcohol or drug abuse patient.[facility] Hospital[facility] the event this information is protected by the Federal Confidentiality of Alcohol and Drug Abuse Patient Records regulations: The Federal rules restrict any use of the information to criminally investigate or prosecute any alcohol or drug abuse patient.[facility]In the event this information is protected by the Federal Confidentiality of Alcohol and Drug Abuse Patient Records regulations: The Federal rules restrict any use of the information to criminally investigate or prosecute any alcohol or drug abuse patient.[facility] the event this information is protected by the Federal Confidentiality of Alcohol and Drug Abuse Patient Records regulations: The Federal rules restrict any use of the information to criminally investigate or prosecute any alcohol or drug abuse patient.[facility] the event this information is protected by the Federal Confidentiality of Alcohol and Drug Abuse Patient Records regulations: The Federal rules restrict any use of the information to criminally investigate or prosecute any alcohol or drug abuse patient.[facility]In the event this information is protected by the Federal Confidentiality of Alcohol and Drug Abuse Patient Records regulations: The Federal rules restrict any use of the information to criminally investigate or prosecute any alcohol or drug abuse patient.[facility]In the event this information is protected by the Federal Confidentiality of Alcohol and Drug Abuse Patient Records regulations: The Federal rules restrict any use of the information to criminally investigate or prosecute any alcohol or drug abuse patient.[facility]In the event this information is protected by the Federal Confidentiality of Alcohol and Drug Abuse Patient Records regulations: The Federal rules restrict any use of the information to criminally investigate or prosecute any alcohol or drug abuse patient.[facility] Care Teams (unrecognized sec tion and content) Wiring Mechanic Relationship Specialty Start Date End Date Rc Novak [address] [place] [address] Referring Ophthalmology 09/22/20 Wiring Mechanic Relationship Specialty Start Date End Date Rc Novak [address] [place] [address] Referring Ophthalmology 09/22/20 Wiring Mechanic Relationship Specialty Start Date End Date Rc Novak [facility] [place] [address] Referring Ophthalmology 09/22/20 Wiring Mechanic Relationship Specialty Start Date End Date Kemar Mantilla MD [address] [place], [place] [address] PCP - General Family Medicine 09/13/23 Rc Novak MD [address] [place] [address] [id number] Referring Ophthalmology 09/22/20 Wiring Mechanic Relationship Specialty Start Date End Date Kemar Mantilla MD [address] [place] [address] PCP - General Family Medicine 09/13/23 Rc Novak MD [address] [place] [address] [id number] Referring Ophthalmology 09/22/20 Wiring Mechanic Relationship Specialty Start Date End Date Kemar Mantilla MD [address] [place] [address] PCP - General Family Medicine 09/13/23 Rc Novak MD [facility] [place] [address] Referring Ophthalmology 09/22/20 Wiring Mechanic Relationship Specialty Start Date End Date Rc Novak MD [facility] [place] [address] Referring Ophthalmology 09/22/20 Wiring Mechanic Relationship Specialty Start Date End Date Rc Novak MD [facility] [place] [address] Referring Ophthalmology 09/22/20 Wiring Mechanic Relationship Specialty Start Date End Date Rc Novak MD [address] [place] [id number] Referring Ophthalmology 09/22/20 Wiring Mechanic Relationship Specialty Start Date End Date Rc Novak MD [facility] [place] [address] Referring Ophthalmology 09/22/20 Wiring Mechanic Relationship Specialty Start Date End Date Rc Novak MD [facility] [place] [address] Referring Ophthalmology 09/22/20 Wiring Mechanic Relationship Specialty Start Date End Date Rc Novak MD [facility] [place] [address] Referring Ophthalmology 09/22/20 Wiring Mechanic Relationship Specialty Start Date End Date Rc Novak MD [facility] [place] [address] Referring Ophthalmology 09/22/20 Wiring Mechanic Relationship Specialty Start Date End Date Rc Novak MD [address] [place] [address] Referring Ophthalmology 09/22/20 Wiring Mechanic Relationship Specialty Start Date End Date Rc Novak MD [address] [place] [address] Referring Ophthalmology 09/22/20 Wiring Mechanic Relationship Specialty Start Date End Date Rc Novak MD [address] [place] [address] Referring Ophthalmology 09/22/20 Allegra Colón MD [address] [place] [address] Referring Ophthalmology 05/21/24 Wiring Mechanic Relationship Specialty Start Date End Date Rc Novak MD [address] [place] [address] Referring Ophthalmology 09/22/20 Allegra Colón MD [address] [place] [address] Referring Ophthalmology 05/21/24 Wiring Mechanic Relationship Specialty Start Date End Date Rc Novak MD [address] [place] [address] Referring Ophthalmology 09/22/20 Allegra Colón MD [address] [place] [address] Referring Ophthalmology 05/21/24 Wiring Mechanic Relationship Specialty Start Date End Date Kemar Mantilla MD [address] [place], [place] [address] PCP - General Family Medicine 09/13/23 02/19/24 Rc Novak MD [address] [place], [place] [phone] Referring Ophthalmology 09/22/20 Wiring Mechanic Relationship Specialty Start Date End Date Rc Novak MD [address] [place], [place] [address] Referring Ophthalmology 09/22/20 Allegra Colón MD [address] [place] [address] Referring Ophthalmology 05/21/24 Wiring Mechanic Relationship Specialty Start Date End Date Rc Novak MD [address] [place], [place] [id number] Referring Ophthalmology 09/22/20 Allegra Colón MD [address] [place] [address] Referring Ophthalmology 05/21/24 Wiring Mechanic Relationship Specialty Start Date End Date Rc Novak MD [address] [place] [address] Referring Ophthalmology 09/22/20 Allegra Colón MD [address] [place] [address] Referring Ophthalmology 05/21/24 Wiring Mechanic Relationship Specialty Start Date End Date Rc Novak MD [address] [place] [address] Referring Ophthalmology 09/22/20 Allegra Colón MD [address] [place] [address] Referring Ophthalmology 05/21/24 Scheduled Active and Recently Administ ered Medications (unrecognized section and content) Medication Order 06/10/2024 06/11/2024 06/12/2024 acetaminophen 650 mg tab(s) (TYLENOL) (COMPLETED) 650 mg, ORAL, ONCE, 1 dose, On Paulina 06/12/24 at 1300 1240 (Given - Provid er: Annalisa Corona RN) PRN Medication Order 06/10/2024 06/11/2024 06/12/2024 lidocaine (PF) 10 mg/mL (1 %) injection (XYLOCAINE) (CANCELED) SUBCUTANEOUS, X (OR/PROCEDURE) PRN, Starting on Paulina 06/12/24 at 1200, Until Paulina 06/12/24 at 1225, Intraprocedure 1200 (Given - Provid er: Clemente Coates MD) FOR RECORDS PERTAINING TO PATIENTS WHO ARE [...] BE BASED ON THE PRIMARY CLINICAL RECORDS. [employer] provides no warranty or guarantee of the accuracy or completeness of information in this document.
[2024-07-02 20:17] LABS: Differential Comment SCANNED
[2024-07-02 20:20] LABS: Platelet Estimate ADEQUATE (ADEQ)
[2024-07-02 20:43] VITALS: PULSE 77; RESP 18; O2SAT 98
[2024-07-02 21:30] VITALS: BP 134/78; PULSE 87; RESP 16; TEMP 36.6; O2SAT 100
== END 2024-07-02 21:31 | disposition home or self-care (01) ==
PROVIDERS: Emergency Provider Emergency Medicine; Visit Provider Emergency Medicine
DX: R10.9 Unspecified abdominal pain (principal); R31.9 Hematuria, unspecified; Z79.899 Other long term (current) drug therapy; Z87.442 Personal history of urinary calculi
CPT/HCPCS: 74176; 80048; 81001; 84703; 85025; 96374; 96375; 99282

== ENCOUNTER 2024-08-14 15:52 | Emergency (ER) | payer MEDICAID, SELFPAY ==
[2024-08-14 15:53] VITALS: BP 145/98; PULSE 85; RESP 16; TEMP 36.6; O2SAT 99; BMI 39.0
--- NOTE | 2024-08-14 16:16 | EKG12_ITS ---
Test Reason : SYNC Blood Pressure : */* mmHG Vent. Rate : 77 BPM Atrial Rate : 77 BPM P-R Int : 132 ms QRS Dur : 90 ms QT Int : 380 ms P-R-T Axes : 51 73 45 degrees QTcB Int : 430 ms Normal sinus rhythm Normal ECG Confirmed by Maco Amin ([id number]), editorial assistant AMARI BOONE ([id number]) on 08/15/2024 1:47:57 PM Referred By: Confirmed By: Maco Amin
--- NOTE | 2024-08-14 16:17 | EDS_ITS ---
HPI <AURELIA Hoang - Last Filed: 08/14/24 20:55> History of Present Illness Chief Complaint: General Illness Narrative Narrative: Patient presenting today with multiple vague symptoms. She has a PMH of pseudotumor cerebri, and had a stenting of right transverse sinus stenosis performed on 07/29/[address] Praveen Newby, and migraine hx. she was discharged home on Plavix and aspirin. She reports that this morning she woke up with a right sided headache that resolved after taking Tylenol, she no longer has a headache. However, she has felt intermittently lightheaded and did have an episode of presyncope while sitting in her car this afternoon. She began to feel nauseous and lightheaded as if she could pass out and reports that her vision did go out for a brief second and then returned, she does not think she lost consciousness. She denies any chest pain or shortness of breath with this episode. However, she does report intermittent midsternal chest pain since having her surgery performed on the . She denies any history of blood clots or shortness of breath. She denies chest pain at this time. She denies fevers, chills, shortness of breath, abdominal pain, and vomiting. PFSH <AURELIA Hoang - Last Filed: 08/14/24 20:55> [facility] Medical History Left ureteral calculus Bruising Easy bruising History of IBS Heartburn Shortness of breath on exertion Non-smoker History of echocardiogram Cardiology follow-up encounter Generalized anxiety disorder PTSD (post-traumatic stress disorder) Major depressive disorder, recurrent severe without psychotic features Migraines Kidney stones Ovarian cyst Home Medications ?Medication ?Instructions ?Recorded ?Last Taken ?Type acetazolamide 500 mg 500 mg PO BID PSEUDOTUMOR 06/23/21 Unknown History capsule,extended release phenazopyridine 200 mg tablet 200 mg PO TID 6 doses #6 tabs 06/26/23 Unknown Rx (Pyridium) naproxen 500 mg tablet 500 mg PO BID PRN #14 tabs 12/14/23 Unknown Rx aripiprazole 2 mg tablet 2 mg PO QHS 07/02/24 Unknown History ondansetron 4 mg disintegrating 4 mg PO Q8H PRN PRN Nausea #10 tabs 07/02/24 Unknown Rx tablet ondansetron 4 mg disintegrating 4 mg PO Q8H PRN PRN Nausea #10 tabs 08/14/24 Unknown Rx tablet Allergy/AdvReac Type Severity Reaction Status Date / Time adhesive tape AdvReac Other Verified 08/14/24 15:53 Surgical History Hx of cystoscopy History of urethral stent Hx of dilation and curettage Hx of tympanostomy tubes History of section History of umbilical hernia repair History of cholecystectomy Social History household members: spouse Smoking Status: Never smoker ROS <AURELIA Hoang - Last Filed: 08/14/24 20:55> ROS ED Constitutional Constitutional ED: Denies chills or fever(s) Cardiovascular Cardiovascular: Denies chest pain or palpitations Respiratory/Chest Respiratory/Chest: Denies cough or dyspnea Gastrointestinal Gastrointestinal: Reports nausea; Denies abdominal pain or vomiting Genitourinary Genitourinary ED: Denies dysuria, hematuria or urinary urgency Musculoskeletal Musculoskeletal: Denies arthralgias or myalgias Integumentary Denies rash Neurologic Neurologic: Reports headache(s); Denies weakness EXAM <AURELIA Hoang - Last Filed: 08/14/24 20:55> Physical Exam Const Vital Signs: 08/14/24 15:53 08/14/24 17:52 08/14/24 18:05 Temperature 97.9 F Temperature Source Oral Pulse Rate 85 68 Respiratory Rate 16 16 Respiratory Effort Normal Non-Labored Respiratory Pattern Normal Blood Pressure 145/98 H Blood Pressure Mean 113 Pulse Ox 99 100 Oxygen Delivery Method Room Air 08/14/24 19:00 08/14/24 20:52 Temperature 98 F Temperature Source Pulse Rate 72 84 Respiratory Rate 18 18 Respiratory Effort Respiratory Pattern Blood Pressure 138/79 H Blood Pressure Mean 98 Pulse Ox 100 98 Oxygen Delivery Method Positive well nourished, well developed and no apparent distress General Appearance ED: well developed HEENT Reports normocephalic and head/scalp atraumatic Mouth ED: Yes moist mucous membranes normal Eyes PERRL and EOMs intact bilaterally Neck full ROM and supple Chest Wall inspection of chest normal Resp normal respiratory effort and clear to auscultation bilaterally Cardio regular rate and regular rhythm GI soft to palpation, non-tender, non-distended and no masses Back/Spine normal ROM and normal to inspection Extremity normal to inspection and full ROM Neuro oriented x3, CN's II-XII intact bilaterally, moves all extremities, no focal motor deficits and no sensory deficits noted Sensorium / Orientation: awake and alert Psych mental status grossly normal and thought process normal Skin no rashes or lesions noted and no wounds <Dr. Norris Saeed DO - Last Filed: 08/14/24 23:45> Physical Exam Const Vital Signs: 08/14/24 15:53 08/14/24 17:52 08/14/24 18:05 Temperature 97.9 F Temperature Source Oral Pulse Rate 85 68 Respiratory Rate 16 16 Respiratory Effort Normal Non-Labored Respiratory Pattern Normal Blood Pressure 145/98 H Blood Pressure Mean 113 Pulse Ox 99 100 Oxygen Delivery Method Room Air 08/14/24 19:00 08/14/24 20:52 Temperature 98 F Temperature Source Pulse Rate 72 84 Respiratory Rate 18 18 Respiratory Effort Respiratory Pattern Blood Pressure 138/79 H Blood Pressure Mean 98 Pulse Ox 100 98 Oxygen Delivery Method MDM <AURELIA Hoang - Last Filed: 08/14/24 20:55> [facility] Narrative Medical decision making narrative: Patient presenting today due to a presyncopal episode, lightheadedness, intermittent nausea that started this afternoon. She did have a right-sided headache earlier today but this did resolve. She is nontoxic-appearing. Labs obtained. WBC is 20.5, she did just complete a course of dexamethasone which is likely why this is high. BMP shows a BUN of 21, troponin is 7, D-dimer WNL. While the workup was being obtained she did begin to complain of a headache and requested Tylenol, after this was given she did report improvement. She then began to complain of upper abdominal pain, abdominal loops were added on and her liver enzymes and lipase are unremarkable. UA negative for UTI. Given her leukocytosis, CT scan of the abdomen and pelvis with IV contrast was obtained and shows moderate stool throughout the colon, borderline hepatosplenomegaly, and a cystic structure at the left adnexa. 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 She is requesting to eat and drink something and reports improvement of her symptoms. She will be discharged home in stable condition. Lab Data Attestation: I reviewed the patient's lab results. Labs: Laboratory Results - last 24 hr 08/14/24 08/14/24 17:15 18:47 WBC 20.5 H RBC 4.94 Hgb 11.9 L Hct 38.6 MCV 78.1 L MCH 24.1 L MCHC 30.8 L RDW Std Deviation 44.4 H RDW Coeff of Theresa 15.7 H Plt Count 330 MPV 8.7 Immature Gran % (Auto) 0.900 Neut % (Auto) 69.4 Lymph % (Auto) 20.0 [place] % (Auto) 8.0 Eos % (Auto) 1.2 Baso % (Auto) 0.5 Absolute Neuts (auto) 14.2 H Absolute Lymphs (auto) 4.10 Nucleated RBC % 0 Differential Comment SCANNED D-Dimer Quant (PE/DVT) 0.29 Sodium 140 Potassium 3.6 Chloride 107 Carbon Dioxide 27.0 Anion Gap 6 BUN 21 H Creatinine 0.86 Estim Creat Clear Calc 113.48 Est GFR (MDRD) Af Amer 96 Est GFR (MDRD) Non-Af 79 BUN/Creatinine Ratio 24.4 H Glucose 86 Calcium 8.8 Total Bilirubin 0.50 Direct Bilirubin 0.09 AST 10 L ALT 23 Alkaline Phosphatase 87 Troponin I High Sens 7 Total Protein 7.1 Albumin 3.1 L Globulin 4.0 Lipase 31 Serum , Qual NEGATIVE Urine Color Straw Urine Clarity Clear Urine pH 5.0 Ur Specific [place] 1.030 Urine Protein Negative Urine Glucose (UA) Normal Urine Ketones Negative Urine Occult Blood Negative Urine Nitrite Negative Urine Bilirubin Negative Urine Urobilinogen Normal Ur Leukocyte Esterase Negative Urine RBC 0 SEEN Urine WBC 0-5 SEEN Ur Squamous Epith Cells 10-25 SEEN Urine Bacteria 3+ Urine Mucus 2+ Radiography Diagnostic Testing: Clinical Impression(s) from Imaging Studies Abdomen/Pelvis CT 08/14/24 18:40 IMPRESSION: 1. Moderate stool throughout most of the colon. No evidence of appendicitis. 2. Borderline hepatosplenomegaly. Cholecystectomy. Hernia repair sheath stable. 3. Slightly larger apparent cystic structure in the left adnexa compared to most recent prior exam, but it is similar in size compared to May 10, 2021. Suspected residual or recurrent 3.5 cm dominant ovarian follicle or cyst. Correlate with any left lower quadrant or pelvic pain. Recommendation for simple-appearing cystic structure of less than 5 cm in an asymptomatic premenopausal woman: ACR White Paper guidelines (Garcia, et. al. JACR 2020;17(2):248-254) suggest no follow-up is necessary. Electronically Signed: Ebonie Hill MD at 20:40 EST Reading Location ID and State: [facility] / [place] Tel , Service support , <Dr. Norris Saeed, DO - Last Filed: 08/14/24 23:45> MDM MDM Narrative Medical decision making narrative: Patient presenting today due to a presyncopal episode, lightheadedness, intermittent nausea that started this afternoon. She did have a right-sided headache earlier today but this did resolve. She is nontoxic-appearing. Labs obtained. WBC is 20.5, she did just complete a course of dexamethasone which is likely why this is high. BMP shows a BUN of 21, troponin is 7, D-dimer WNL. While the workup was being obtained she did begin to complain of a headache and requested Tylenol, after this was given she did report improvement. She then began to complain of upper abdominal pain, abdominal loops were added on and her liver enzymes and lipase are unremarkable. UA negative for UTI. Given her leukocytosis, CT scan of the abdomen and pelvis with IV contrast was obtained and shows moderate stool throughout the colon, borderline hepatosplenomegaly, and a cystic structure at the left adnexa. 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 She is requesting to eat and drink something and reports improvement of her symptoms. She will be discharged home in stable condition. Interventions / MDM: Differential diagnosis: Atypical chest pain, vasovagal near syncope, history of pseudotumor cerebri Diagnosis considered but do not suspect: PE however D-dimer negative. ACS however workup negative. My EKG interpretation: Sinus rate of 77, no ST or T wave changes. Imaging independently reviewed and interpreted by myself: CT abdomen pelvis IV contrast no acute process also read by radiology. Constipation noted. External documents reviewed: N/A Test considered but not ordered:N/A ED course: Attending note: I have personally performed a face to face assessment of the patient and have reviewed the NURY note. I personally made/approved the management plan and take responsibility for the patient management. I performed a substantive portion of the visit including all aspects of the following. My andrade findings include: Status post stenting of her sinus vessel in the brain right side 19 for worsening pseudotumor cerebri done at [facility]. Performed electively. She was there overnight. Since then noting some intermittent chest pain some dyspnea. Today slight headache that resolved she felt lightheaded when she was nauseated. She states things went black for a second return. No syncopal episodes. Exam no meningismus no focal deficits. Intermittent chest pains mild dyspnea recent procedure cardiac workup D-dimer obtained. Workup negative. Her white count was 20 however she finished dexamethasone after 2 weeks 2 days ago. She reported urine frequency urine was added negative for infection. Later reported abdominal pain back pain to nursing therefore CT scan obtained and also negative for acute process noted constipation. CT scan noted cystic structure left adnexa. This was discussed with the patient. Follow-up as an outpatient she is clinically stable. All questions were answered. Re-evaluation: stable Disposition discussed with patient/family/significant other: Patient significant other Case discussed with consulting clinician: N/A This note was generated with [employer] dictation software. It may contain incorrect words, spelling, and punctuation that were not noted in checking the note before signing. Lab Data Labs: Laboratory Results - last 24 hr 08/14/24 08/14/24 17:15 18:47 WBC 20.5 H RBC 4.94 Hgb 11.9 L Hct 38.6 MCV 78.1 L MCH 24.1 L MCHC 30.8 L RDW Std Deviation 44.4 H RDW Coeff of Theresa 15.7 H Plt Count 330 MPV 8.7 Immature Gran % (Auto) 0.900 Neut % (Auto) 69.4 Lymph % (Auto) 20.0 [place] % (Auto) 8.0 Eos % (Auto) 1.2 Baso % (Auto) 0.5 Absolute Neuts (auto) 14.2 H Absolute Lymphs (auto) 4.10 Nucleated RBC % 0 Differential Comment SCANNED D-Dimer Quant (PE/DVT) 0.29 Sodium 140 Potassium 3.6 Chloride 107 Carbon Dioxide 27.0 Anion Gap 6 BUN 21 H Creatinine 0.86 Estim Creat Clear Calc 113.48 Est GFR (MDRD) Af Amer 96 Est GFR (MDRD) Non-Af 79 BUN/Creatinine Ratio 24.4 H Glucose 86 Calcium 8.8 Total Bilirubin 0.50 Direct Bilirubin 0.09 AST 10 L ALT 23 Alkaline Phosphatase 87 Troponin I High Sens 7 Total Protein 7.1 Albumin 3.1 L Globulin 4.0 Lipase 31 Serum , Qual NEGATIVE Urine Color Straw Urine Clarity Clear Urine pH 5.0 Ur Specific [place] 1.030 Urine Protein Negative Urine Glucose (UA) Normal Urine Ketones Negative Urine Occult Blood Negative Urine Nitrite Negative Urine Bilirubin Negative Urine Urobilinogen Normal Ur Leukocyte Esterase Negative Urine RBC 0 SEEN Urine WBC 0-5 SEEN Ur Squamous Epith Cells 10-25 SEEN Urine Bacteria 3+ Urine Mucus 2+ Radiography Diagnostic Testing: Clinical Impression(s) from Imaging Studies Abdomen/Pelvis CT 08/14/24 18:40 IMPRESSION: 1. Moderate stool throughout most of the colon. No evidence of appendicitis. 2. Borderline hepatosplenomegaly. Cholecystectomy. Hernia repair sheath stable. 3. Slightly larger apparent cystic structure in the left adnexa compared to most recent prior exam, but it is similar in size compared to May 10, 2021. Suspected residual or recurrent 3.5 cm dominant ovarian follicle or cyst. Correlate with any left lower quadrant or pelvic pain. Recommendation for simple-appearing cystic structure of less than 5 cm in an asymptomatic premenopausal woman: ACR White Paper guidelines (Garcia, et. al. JACR 2020;17(2):248-254) suggest no follow-up is necessary. Electronically Signed: Ebonie Hill MD at 20:40 EST Reading Location ID and State: [facility] / [place] Tel , Service support , Discharge Plan Triage Chief Complaint: General Illness ED Midlevel Provider: Mariama Amador ED Provider: Norris Saeed Dx/Rx/DC Orders Clinical Impression: History of migraine headaches, Pseudotumor cerebri, Abdominal pain, Pre- syncope, Ovarian cyst Instructions: Abdominal Pain, ED Ovarian Cyst, ED Near-Fainting, Uncertain Cause Prescriptions: New ondansetron 4 mg tablet,disintegrating 4 mg PO Q8H PRN PRN (Reason: Nausea) Qty: 10 0RF No Action acetazolamide 500 mg capsule, extended release 500 mg PO BID phenazopyridine [Pyridium] 200 mg tablet 200 mg PO TID Qty: 6 0RF naproxen 500 mg tablet 500 mg PO BID PRN Qty: 14 0RF aripiprazole 2 mg tablet 2 mg PO QHS ondansetron 4 mg tablet,disintegrating 4 mg PO Q8H PRN PRN (Reason: Nausea) Qty: 10 0RF Primary Care Provider: Care Physician,No Primary Referrals: Care Physician,No Primary [Primary Care Provider] - Activity Restrictions/Additional Instructions: Follow-up with your PCP, return for any other concerns. Print Language: Nepali Disposition Disposition: Home, Self Care Discharge Date/Time: 08/14/24 20:59
[2024-08-14] MEDS: Ondansetron 4 MG/2 ML Vial IV ×2 (17:23→18:28)
[2024-08-14 17:32] LABS: Absolute Neutrophil Count 14.2 X10^3/uL (2.0-7.7); Basophil% 0.5 % (0-1); Eosinophil# 0.24 X10^3/uL; Eosinophils% 1.2 % (0-5); Hematocrit 38.6 % (37-47); Hemoglobin 11.9 g/dL (12.0-15.0); Mean Corp Hgb Conc 30.8 g/dL (32-36); Mean Corpuscular Hgb 24.1 pg (27.0-32.0); Mean Corpuscular Volume 78.1 fL (81-99); Mean Platelet Vol. 8.7 fl (6.2-12.0); Monocyte# 1.65 X10^3/uL; NRBC Flagged by Analyzer 0 % (0-5); Neutrophil # 14.22 X10^3/uL (2.7-7.7); Neutrophil % 69.4 % (47-70); POSITIVE DIFFERENTIAL YES; Platelet Count 330 K/mm3 (150-450); RBC Distribution Width CV 15.7 % (11.6-14.6); RBC Distribution Width SD 44.4 fl (35.1-43.9); Red Blood Count 4.94 M/mm3 (4.2-5.4); White Blood Count 20.5 K/mm3 (4.4-11.0)
[2024-08-14 17:39] LABS: D-Dimer Quantitative (DVT/PE) 0.29 FEU/ug/m (0.27-0.49)
[2024-08-14 17:44] LABS: Internal QC Validated? YES +Cl - CLEAR BKGD; Pregnancy, Serum, hCG Quali. NEGATIVE Negative
[2024-08-14 17:48] LABS: Anion Gap 6 (5-15); BUN 21 mg/dL (7-18); BUN/Creat Ratio 24.4 RATIO (10-20); Calcium,Total 8.8 mg/dL (8.5-10.1); Chloride 107 mmol/L (98-107); Creatinine, Serum 0.86 mg/dL (0.55-1.02); EST Glomerular Filtration Rate 79 mL/min (>60); Est Glom Filt Rate - Afr Amer 96 mL/min (>60); Estimated Creatinine Clearance 113.48 ml/min; Glucose 86 mg/dL (74-106); Potassium 3.6 mmol/L (3.5-5.1); Sodium Level 140 mmol/L (136-145); Troponin-I HS 7 pg/mL (3.0-54.0)
[2024-08-14 17:49] LABS: Differential Indicated SCAN CRITERIA MET
[2024-08-14 17:52] VITALS: PULSE 68; RESP 16; O2SAT 100
[2024-08-14] MEDS: Acetaminophen 500 MG Tablet 1000 MG PO (18:02)
[2024-08-14 18:40] LABS: Differential Comment SCANNED
--- NOTE | 2024-08-14 18:40 | CT_ITS ---
EXAM: CT ABDOMEN AND PELVIS WITH INTRAVENOUS CONTRAST CLINICAL INDICATION: upper abdominal pain TECHNIQUE: Helically acquired images were obtained of the abdomen and pelvis with intravenous contrast. This CT exam was performed using one or more of the following dose reduction techniques: automated exposure control, adjustment of the mA and/or kV according to patient size, and/or use of iterative reconstruction technique. CONTRAST: IV 100mL Isovue-370 RADIATION DOSE: CTDIvol = 14.62 mGy, DLP = 1236.77 mGy-cm. COMPARISON: July 02, 2024. May 10, 2024 FINDINGS: LOWER THORAX: Unremarkable. Lung bases are clear. No cardiomegaly. No significant pericardial effusion. ABDOMEN: LIVER: Right lobe of liver is 19.2 cm craniocaudal, mildly enlarged. GALLBLADDER AND BILE DUCTS: Cholecystectomy clips. Similar 5.5 mm common duct. PANCREAS: Unremarkable. No focal cystic or solid mass. SPLEEN: Borderline splenomegaly, 12.9 cm AP. ADRENALS: Unremarkable. No nodules. KIDNEYS AND URETERS: Unremarkable. Normal renal size and position. No hydronephrosis. STOMACH AND BOWEL: Unremarkable. No stomach or bowel distention. No focal inflammatory change. PELVIS: APPENDIX: Small collapsed appendix is seen superior to the tip of the cecum on coronal images 64 through 73. BLADDER: Unremarkable. REPRODUCTIVE: There is mildly larger appearance of suspected dominant follicle in the left ovary, 3 cm x 2.4 cm x 3.5 cm, it was 2.6 cm x 2 cm x 2.2 cm. Similar mildly lobulated contour of the dome of the uterus is suspicious for 2.7 cm x 1.6 cm broad-based sessile exophytic fibroid. ABDOMEN and PELVIS: INTRAPERITONEAL SPACE: Unremarkable. No ascites or other fluid collection. No free air. BONES/JOINTS: Unremarkable. No suspicious lytic or blastic abnormality. SOFT TISSUES: Presumed umbilical hernia repair with small soft tissue density sheath appears similar, partially detached or with some curvilinear adjacent scarring. Slight fat in the proximal left inguinal region, similar to prior exam. VASCULATURE: Unremarkable. Abdominal aorta is non-dilated. LYMPH NODES: There is moderate stool in most of the colon, mild stool in the rectum. Mild mesenteric adenopathy is similar to prior exam. CT/Abdomen/Pelvis W IV Cont ONLY IMPRESSION: 1. Moderate stool throughout most of the colon. No evidence of appendicitis. 2. Borderline hepatosplenomegaly. Cholecystectomy. Hernia repair sheath stable. 3. Slightly larger apparent cystic structure in the left adnexa compared to most recent prior exam, but it is similar in size compared to May 10, 2021. Suspected residual or recurrent 3.5 cm dominant ovarian follicle or cyst. Correlate with any left lower quadrant or pelvic pain. Recommendation for simple-appearing cystic structure of less than 5 cm in an asymptomatic premenopausal woman: ACR White Paper guidelines (Garcia, et. al. JACR 2020;17(2):248-254) suggest no follow-up is necessary. Electronically Signed: Ebonie Hill MD at 20:40 EST ,
[2024-08-14 18:56] LABS: Red Blood Cells-Urine 0 SEEN /hpf (0-5)
[2024-08-14 19:00] VITALS: PULSE 72; RESP 18; O2SAT 100
[2024-08-14 19:17] LABS: AST(SGOT) 10 U/L (15-37); Alanine Aminotransfer ALT/SGPT 23 U/L (13-56); Albumin, Serum 3.1 g/dL (3.2-5.0); Alkaline Phosphatase 87 U/L (45-117); Bilirubin, Direct 0.09 mg/dL (0.00-0.30); Lipase 31 U/L (13-75); Protein, Total 7.1 g/dL (6.4-8.2)
[2024-08-14 19:23] LABS: Color, Urine Straw (Yellow); Glucose, Dipstick Normal (Normal); Ketone-Dipstick Negative (Negative); Leukocyte Esterase-Dipstick Negative /ul (Negative); Nitrite-Dipstick Negative (Negative); Occult Blood-Urine Negative /ul (Negative); Protein-Dipstick Negative (Negative); Urine Bilirubin Dipstick Negative (Negative); Urine Clarity Clear (Clear); Urine Urobilinogen Normal (Normal)
[2024-08-14 19:43] LABS: Squamous Epithelial Cells - UA 10-25 SEEN /hpf (5-10); White Blood Cells 0-5 SEEN /hpf (0-5)
[2024-08-14 19:44] LABS: Bacteria 3+ /hpf (None Seen); Mucous, Urine 2+ /hpf (<or=2+)
[2024-08-14 20:52] VITALS: BP 138/79; PULSE 84; RESP 18; TEMP 36.6; O2SAT 98
== END 2024-08-14 20:59 | disposition home or self-care (01) ==
PROVIDERS: Physician Assistant; Emergency Provider Emergency Medicine; Visit Provider Emergency Medicine
DX: R55 Syncope and collapse (principal); R16.2 Hepatomegaly with splenomegaly, not elsewhere classified; G93.2 Benign intracranial hypertension; R07.2 Precordial pain; K59.00 Constipation, unspecified; R10.10 Upper abdominal pain, unspecified; R11.0 Nausea; Z79.02 Long term (current) use of antithrombotics/antiplatelets; Z79.82 Long term (current) use of aspirin; Z79.899 Other long term (current) drug therapy; R35.0 Frequency of micturition; N83.202 Unspecified ovarian cyst, left side
CPT/HCPCS: 74177; 80048; 80076; 81001; 83690; 84484; 84703; 85025; 85379; 93005; 96374; 96376; 99285; Q9967; A4216; J2405

== ENCOUNTER 2025-02-02 17:21 | Emergency (ER) | payer MEDICAID, SELFPAY ==
[2025-02-02 17:21] VITALS: BP 176/99; PULSE 80; RESP 20; TEMP 36.6; O2SAT 99; BMI 39.4
--- NOTE | 2025-02-02 18:41 | ED.VIS.DENTA ---
HPI History of Present Illness Chief Complaint: Dental Informant: patient Onset/Context/Timing Onset: Weeks (1) Context: Gradual Onset Timing: Continuous Quality: Sharp Location: Left lower third molar Worsened by: Chewing, drinking Relieved by: - (Nothing) Associated Symptoms Assocated Symptom - Dental: jaw swelling; Negative for fever, face swelling, cold sensitivity or hot sensitivity Narrative Narrative: Patient presents with left lower dental pain that has been getting worse over the past week. Patient states it is gradually getting worse. Patient describes her pain as sharp. Patient states it is worse with chewing and with drinking. Patient admits to some swelling around her left lower third molar. Patient denies any facial swelling. Patient denies any fevers or chills. Patient does admit to a sore throat and pain with swallowing. Patient denies any hot or cold sensitivity. [facility] Medical History (Updated 02/02/25 @ 18:[address] Pranav Biggs, DO) Left ureteral calculus Bruising Easy bruising History of IBS Heartburn Shortness of breath on exertion Non-smoker History of echocardiogram Cardiology follow-up encounter Generalized anxiety disorder PTSD (post-traumatic stress disorder) Major depressive disorder, recurrent severe without psychotic features Migraines Kidney stones Ovarian cyst Home Medications ?Medication ?Instructions ?Recorded ?Last Taken ?Type acetazolamide 500 mg 500 mg PO BID PSEUDOTUMOR 06/23/21 Unknown History capsule,extended release phenazopyridine 200 mg tablet 200 mg PO TID 6 doses #6 tabs 06/26/23 Unknown Rx (Pyridium) naproxen 500 mg tablet 500 mg PO BID PRN #14 tabs 12/14/23 Unknown Rx aripiprazole 2 mg tablet 2 mg PO QHS 07/02/24 Unknown History ondansetron 4 mg disintegrating 4 mg PO Q8H PRN PRN Nausea #10 tabs 07/02/24 Unknown Rx tablet ondansetron 4 mg disintegrating 4 mg PO Q8H PRN PRN Nausea #10 tabs 08/14/24 Unknown Rx tablet amoxicillin 500 mg tablet 500 mg PO TID #30 tabs 02/02/25 Unknown Rx Allergy/AdvReac Type Severity Reaction Status Date / Time adhesive tape AdvReac Other Verified 02/02/25 17:21 Surgical History (Updated 02/02/25 @ 18:[address] Pranav Biggs, ) S/P [facility] shunt Hx of cystoscopy History of urethral stent Hx of dilation and curettage Hx of tympanostomy tubes History of section History of umbilical hernia repair History of cholecystectomy Social History household members: spouse Smoking Status: Never smoker ROS ROS ED Constitutional Constitutional ED: Denies chills or fever(s) Eyes Eyes: Denies blurry vision or change in vision ENT ENT ED: Reports ear pain left and sore throat; Denies rhinorrhea Cardiovascular Cardiovascular: Denies chest pain or palpitations Respiratory/Chest Respiratory/Chest: Denies cough or dyspnea Gastrointestinal Gastrointestinal: Denies nausea or vomiting Genitourinary Genitourinary ED: Denies dysuria or hematuria Musculoskeletal Musculoskeletal: Denies back pain or neck pain Integumentary Denies abscess or rash Neurologic Neurologic: Reports headache(s); Denies weakness Allergic/Immunologic Allergic/Immunologic ED: Denies mouth swelling or urticaria EXAM Physical Exam Const Vital Signs: 02/02/25 17:21 Temperature 98 F Temperature Source Temporal Pulse Rate 80 Respiratory Rate 20 H Blood Pressure 176/99 H Blood Pressure Mean 124 Pulse Ox 99 Oxygen Delivery Method Room Air Positive well nourished and well developed General Appearance ED: well developed and NAD HEENT HEENT Narrative: There is tenderness to percussion over the left lower third molar. There are some mild central edema around this tooth. There is no fluctuance. There is no evidence of any abscess. Oropharynx is mildly erythematous. There are no exudates noted. Neck is supple. Trachea is midline. There is no JVD. There is no anterior neck swelling. There is no sublingual edema. There is no evidence of Bg's angina. Mouth ED: Yes lips normal and Yes tongue normal Mouth: lips normal and tongue normal Teeth and Gingiva: gingiva abnormal Positive for gingival edema Neck supple General: Negative for anterior neck swelling, tenderness or submandibular swelling Neuro oriented x3, CN's II-XII intact bilaterally, moves all extremities, no focal motor deficits and no sensory deficits noted Sensorium / Orientation: alert Motor Exam: strength 5/5 throughout Psych mental status grossly normal MDM MDM MDM Narrative Medical decision making narrative: Patient was advised that this could be infected dental caries. Patient was given a dose of amoxicillin here. Patient was given a prescription for amoxicillin. Patient was instructed to follow-up with her dentist and primary care physician in 3 to 5 days. Patient was instructed to return if worse in any way. Patient understood and was agreeable with plan. All questions were answered. Discharge Plan Triage Chief Complaint: Dental ED Provider: Pranav Biggs Dx/Rx/DC Orders Clinical Impression: Infected dental caries, Elevated blood pressure reading Instructions: ED Dental Pain Prescriptions: New amoxicillin 500 mg tablet 500 mg PO TID Qty: 30 0RF No Action acetazolamide 500 mg capsule, extended release 500 mg PO BID phenazopyridine [Pyridium] 200 mg tablet 200 mg PO TID Qty: 6 0RF naproxen 500 mg tablet 500 mg PO BID PRN Qty: 14 0RF aripiprazole 2 mg tablet 2 mg PO QHS ondansetron 4 mg tablet,disintegrating 4 mg PO Q8H PRN PRN (Reason: Nausea) Qty: 10 0RF ondansetron 4 mg tablet,disintegrating 4 mg PO Q8H PRN PRN (Reason: Nausea) Qty: 10 0RF Primary Care Provider: Care Physician,No Primary Referrals: [facility] [Provider Group] - 3-5 Days (Dental clinic) Care Physician,No Primary [Primary Care Provider] - Jolanta Acevedo, [facility] [[facility]] - 3-5 Days Print Language: Citizen Of [place] Disposition Disposition: Home, Self Care
[2025-02-02] MEDS: AMOXICILLIN 500 MG CAPSULE PO (18:59)
[2025-02-02 19:00] VITALS: BP 152/78; PULSE 74; RESP 20; TEMP 36.6; O2SAT 99
== END 2025-02-02 19:02 | disposition home or self-care (01) ==
PROVIDERS: Emergency Provider Emergency Medicine; Visit Provider Emergency Medicine
DX: K02.9 Dental caries, unspecified (principal); K08.89 Other specified disorders of teeth and supporting structures; J02.9 Acute pharyngitis, unspecified; R03.0 Elevated blood-pressure reading, without diagnosis of hypertension; Z79.899 Other long term (current) drug therapy
CPT/HCPCS: 99282

== ENCOUNTER 2025-02-11 05:25 | Emergency (ER) | payer MEDICAID, SELFPAY ==
[2025-02-11] VITALS (7 sets, daily range): BP systolic 147–184; BP diastolic 83–106; PULSE 81–95; RESP 15–18; TEMP 36.4–37; O2SAT 95–100; BMI 39.8
--- NOTE | 2025-02-11 05:44 | CT_ITS ---
EXAM: CT Abdomen and Pelvis With Intravenous Contrast CLINICAL INDICATION: POSTOPERATIVE ABDOMINAL PAIN TECHNIQUE: Axial computed tomography images of the abdomen and pelvis with intravenous contrast. This CT exam was performed using one or more of the following dose reduction techniques: automated exposure control, adjustment of the mA and/or kV according to patient size, and/or use of iterative reconstruction technique. COMPARISON: CT Abdomen Pelvis dated 08/14/2024 FINDINGS: LUNG BASES: Dependent atelectasis, bilaterally. MEDIASTINUM: Small esophageal hiatal hernia. ABDOMEN: LIVER: Hepatomegaly with fatty infiltration. GALLBLADDER AND BILE DUCTS: Gallbladder is surgically absent. No ductal dilation. PANCREAS: Unremarkable. No mass. No ductal dilation. SPLEEN: Unremarkable. No splenomegaly. ADRENALS: Unremarkable. No mass. KIDNEYS AND URETERS: Unremarkable. No solid mass. No hydronephrosis. STOMACH AND BOWEL: Unremarkable. No obstruction. No mucosal thickening. PELVIS: APPENDIX: No findings to suggest acute appendicitis. BLADDER: Unremarkable. No mass. REPRODUCTIVE: Unremarkable as visualized. ABDOMEN and PELVIS: INTRAPERITONEAL SPACE: Unremarkable. No free air. No significant fluid collection. BONES/JOINTS: No acute fracture. No dislocation. SOFT TISSUES: Anterior ventral hernia containing fat. VASCULATURE: Unremarkable. No abdominal aortic aneurysm. LYMPH NODES: Unremarkable. No enlarged lymph nodes. TUBES, LINES AND DEVICES: Peritoneal dialysis catheter with the catheter path appearing to be in the muscle. Catheter does not course into the abdominal cavity. Clinical correlation is recommended. CT/Abdomen/Pelvis W IV Cont ONLY IMPRESSION: 1. Small esophageal hiatal hernia. 2. Hepatomegaly with fatty infiltration. 3. Anterior ventral hernia containing fat. 4. Peritoneal dialysis catheter with the catheter path appearing to be in the muscle. Catheter does not course into the abdominal cavity. Clinical correlation is recommended. [facility]
--- NOTE | 2025-02-11 05:47 | EX.ED.DYSGE1 ---
HPI History of Present Illness Chief Complaint: Abd Pain Informant: patient Narrative Narrative: Patient is a 39-year-old female with past medical history of anxiety PTSD and previous kidney stones. She recently underwent abdominal surgery at [facility] on February 06 and had multiple abdominal hernias repaired laparoscopically. Patient states she was kept in the hospital till Sunday and discharged home. She states she had pain but it was bearable. She reports that on Sunday she developed increasing pain mainly along the right side of her abdomen with bouts of nausea and vomiting. She states she took the oxycodone which was prescribed after surgery without much symptom improvement. She does states she contacted her surgeon on Sunday because of the increasing pain and reportedly was advised that she would be contacted the next day to see how she was feeling. The patient states that throughout the night the symptoms have continuously worsened and they have not improved with taking the oxycodone and therefore she comes in for evaluation. She denies any fevers or chills or dysuria. She states there is no blood or discoloration to her emesis. She reports that she has been on a laxative and is having diarrhea and therefore denies any constipation. [facility] Medical History Left ureteral calculus Bruising Easy bruising History of IBS Heartburn Shortness of breath on exertion Non-smoker History of echocardiogram Cardiology follow-up encounter Generalized anxiety disorder PTSD (post-traumatic stress disorder) Major depressive disorder, recurrent severe without psychotic features Migraines Kidney stones Ovarian cyst Home Medications ?Medication ?Instructions ?Recorded ?Last Taken ?Type acetazolamide 500 mg 500 mg PO BID PSEUDOTUMOR 06/23/21 Unknown History capsule,extended release phenazopyridine 200 mg tablet 200 mg PO TID 6 doses #6 tabs 06/26/23 Unknown Rx (Pyridium) naproxen 500 mg tablet 500 mg PO BID PRN #14 tabs 12/14/23 Unknown Rx aripiprazole 2 mg tablet 2 mg PO QHS 07/02/24 Unknown History ondansetron 4 mg disintegrating 4 mg PO Q8H PRN PRN Nausea #10 tabs 07/02/24 Unknown Rx tablet ondansetron 4 mg disintegrating 4 mg PO Q8H PRN PRN Nausea #10 tabs 12/05/24 Unknown Rx tablet amoxicillin 500 mg tablet 500 mg PO TID #30 tabs 02/02/25 Unknown Rx Allergy/AdvReac Type Severity Reaction Status Date / Time adhesive tape AdvReac Other Verified 02/11/25 05:25 Surgical History (Updated 02/11/25 @ 05:26 by Vishal Rao) H/O hernia repair S/P [employer] shunt Hx of cystoscopy History of urethral stent Hx of dilation and curettage Hx of tympanostomy tubes History of section History of umbilical hernia repair History of cholecystectomy Social History household members: spouse Smoking Status: Never smoker ROS ROS ED Constitutional Constitutional ED: Denies chills or fever(s) Eyes Eyes: Denies change in vision ENT ENT ED: Denies sore throat Cardiovascular Cardiovascular: Denies chest pain Respiratory/Chest Respiratory/Chest: Denies cough or dyspnea Gastrointestinal Gastrointestinal: Reports abdominal pain, diarrhea, nausea and vomiting; Denies constipation or melena Genitourinary Genitourinary ED: Denies dysuria, hematuria or urinary frequency Musculoskeletal Musculoskeletal: Reports back pain Integumentary Reports other Details: Positive surgical wounds Neurologic Neurologic: Denies headache(s) Psychiatric Psychiatric: Reports anxiety and depression Hematologic/Lymphatic Hematologic/Lymphatic: Denies easy bleeding or easy bruising EXAM Physical Exam Const Vital Signs: 02/11/25 05:26 02/11/25 05:29 02/11/25 06:29 Temperature 98.6 F 98.6 F 98.6 F Temperature Source Oral Oral Oral Pulse Rate 93 85 89 Respiratory Rate 18 18 18 Blood Pressure 184/83 H 184/83 H 168/97 H Blood Pressure Mean 116 116 120 Pulse Ox 100 100 97 Oxygen Delivery Method Room Air Room Air Room Air 02/11/25 07:00 02/11/25 07:25 Temperature 98.6 F Temperature Source Oral Pulse Rate 81 83 Respiratory Rate 18 16 Blood Pressure 170/93 H 151/93 H Blood Pressure Mean 118 112 Pulse Ox 100 97 Oxygen Delivery Method Room Air Room Air Positive well nourished, well developed and obese General Appearance ED: well developed; Negative for pallor Nutritional Appearance: obese HEENT Reports dry mucous membranes HEENT Narrative: Normocephalic atraumatic Mucous membranes are mildly dry and tacky No tongue or lip swelling no oral lesions no airway edema or compromise No secondary findings in the posterior pharynx to suggest infection Mouth ED: Yes dry mucous membranes Mouth: dry mucous membranes Eyes PERRL and EOMs intact bilaterally General Eye ED: Negative for scleral icterus Neck supple Neck Narrative: No nuchal rigidity or meningeal sign Resp normal respiratory effort and clear to auscultation bilaterally Resp Narrative: Breath sounds are slight diminished throughout but overall clear to auscultation without signs of respiratory distress Cardio regular rate and regular rhythm Rate: other Other Details: Heart is regular rate and rhythm without murmurs rubs or gallop Radial and carotid pulses are equal and symmetric GI no masses GI Narrative: Abdomen is obese and soft with hypoactive bowel sounds. There is mild/slight distention noted. There is mild diffuse pain with palpation. No voluntary guarding or rigidity. No pulsatile mass or fluid wave. Postsurgical wounds are clean dry and intact without secondary findings to suggest infection. There is a drain in place in the left lower quadrant draining serosanguineous fluid. Back/Spine no CVA tenderness Extremity normal to inspection Neuro oriented x3, CN's II-XII intact bilaterally and no sensory deficits noted Sensorium / Orientation: alert Motor Exam: strength 5/5 throughout Psych Mood & Affect: anxious Skin no rashes or lesions noted and No skin turgor normal Skin Narrative: Skin turgor is slightly increased Postoperative wounds to the abdomen as documented above that are clean dry and intact General Skin Exam: Negative for jaundice or pallor MDM MDM MDM Narrative Medical decision making narrative: Patient arrived to the ER hypertensive but was in pain and this is most likely related to that and otherwise with stable vital. With her recent surgery and increased abdominal discomfort there is concern for postoperative infection and intestinal perforation hematoma/seroma kidney stone or UTI. Therefore basic labs were obtained with urine sample as well as a CT scan with IV contrast. Patient's white count is slightly elevated at 13 but there is no lactic acidosis. Lipase is normal going against acute pancreatitis and urine sample shows no blood going against kidney stone or signs of UTI/pyelonephritis. With pain control her blood pressure has improved and she is remained hemodynamically stable. At this time her CT scan is still pending. I do feel that if it shows no signs of intestinal perforation or secondary infection that there will be no need for admission or transfer. As the results of the imaging are still pending patient will be signed out to the day physician Dr. Trevino History & Record Review Discussion w/independent historian: Patient Lab Data Attestation: I reviewed the patient's lab results. Labs: Laboratory Results - last 24 hr 02/11/25 02/11/25 05:43 07:24 WBC 13.0 H RBC 4.66 Hgb 10.1 L Hct 33.4 L MCV 71.7 L MCH 21.7 L MCHC 30.2 L RDW Std Deviation 39.7 RDW Coeff of Theresa 15.7 H Plt Count 333 MPV 8.9 Immature Gran % (Auto) 0.500 Neut % (Auto) 72.4 H Lymph % (Auto) 15.9 L [place] % (Auto) 7.7 Eos % (Auto) 3.2 Baso % (Auto) 0.3 Absolute Neuts (auto) 9.4 H Absolute Lymphs (auto) 2.07 Nucleated RBC % 0 Sodium 138 Potassium 4.0 Chloride 104 Carbon Dioxide 20.8 L Anion Gap 13 BUN 11 Creatinine 0.74 Estim Creat Clear Calc 132.08 Est GFR (MDRD) Non-Af 107 BUN/Creatinine Ratio 14.9 Glucose 101 H Lactic Acid 1.4 Calcium 8.6 Total Bilirubin 0.32 Direct Bilirubin 0.08 AST 73 H ALT 65 H Alkaline Phosphatase 106 H Total Protein 7.0 Albumin 3.5 Globulin 3.5 Lipase 14 Urine Color Yellow Urine Clarity Clear Urine pH 7.0 Ur Specific Bowman 1.015 Urine Protein 15 H Urine Glucose (UA) Normal Urine Ketones Negative Urine Occult Blood Negative Urine Nitrite Negative Urine Bilirubin Negative Urine Urobilinogen Normal Ur Leukocyte Esterase Negative Urine RBC 0 SEEN Urine WBC 0-5 SEEN Ur Squamous Epith Cells 5-10 SEEN Urine Bacteria 2+ Urine Mucus 0 SEEN Discharge Plan Triage Chief Complaint: Abd Pain ED Provider: Jesse Abdullahi Dx/Rx/DC Orders Clinical Impression: Acute postoperative abdominal pain Prescriptions: No Action acetazolamide 500 mg capsule, extended release 500 mg PO BID phenazopyridine [Pyridium] 200 mg tablet 200 mg PO TID Qty: 6 0RF naproxen 500 mg tablet 500 mg PO BID PRN Qty: 14 0RF amoxicillin 500 mg tablet 500 mg PO TID Qty: 30 0RF aripiprazole 2 mg tablet 2 mg PO QHS ondansetron 4 mg tablet,disintegrating 4 mg PO Q8H PRN PRN (Reason: Nausea) Qty: 10 0RF ondansetron 4 mg tablet,disintegrating 4 mg PO Q8H PRN PRN (Reason: Nausea) Qty: 10 0RF Primary Care Provider: Care Physician,No Primary Referrals: Care Physician,No Primary [Primary Care Provider] - Print Language: [place]
--- OUTSIDE RECORDS SUMMARY | 2025-02-11 06:02 | XMS RPT_ITS | CCD ---
Author Organization [facility] Team Providers Care Manager [employer] Name Role Phone LOUIS ASKEWChrista Unavailable Unavailable GANTA, SASHA CChrista Unavailable Unavailable GANTA, SASHA CChrista Unavailable Unavailable Dasha Liang Primary Care Provider PHYSICIAN, NONE Primary Care Physician Unavailab Rc West Unavailable Rc Novak MD Unavailable Kemar Mantilla MD Primary Care Provider [phone] Kemar Mantilla MD Primary Care Provider PHYSICIAN, NONE Primary Care Unavailable ANGELICA FOX Attending Unavaila ble PHYSICIAN, NONE Primary Care Unavailable ROC BURT MD Attending Unavailable JOHN CORDOVA Attending Unavailable PHYSICIAN, NONE Primary Care Unavailable PHYSICIAN, NONE Primary Care Unavailable CALISTA BAUM MD Attending Unavailable PHYSICIAN, NONE Primary Care Unavailable CALISTA BAUM MD Attending Unavailable PHYSICIAN, NONE Primary Care Unavailable CALISTA BAUM MD Attending Unavailable Mikael Colón MD Unavailable Kemar Mantilla MD Primary Care Provider Rc Novak MD Unavailable PROVIDER, UNKNOWN Referring Unavailable PROVIDER, UNKNOWN Referring Unavailable PHYSICIAN, NONE Primary Care Unavailable OMEGA HARRIS MD Attending Unavailable PHYSICIAN, NONE Primary Care Unavailable DR DELROY ZHOU MD Attending Unavailab le PHYSICIAN, NONE Primary Care Unavailable BROOK OLIVER MD Attending Unavail able PHYSICIAN, NONE Primary Care Unavailable BROOK OLIVER MD Attending Unavail able PHYSICIAN, NONE Primary Care Unavailable ROC BURT MD Attending Unavailable PHYSICIAN, NONE Primary Care Unavailable SEEMA BULLOCK Attending Unavailable PHYSICIAN, NONE Primary Care Unavailable SEEMA BULLOCK Attending Unavailable PHYSICIAN, NONE Primary Care Unavailable MARRY YOO, DR OSBORNE Attending UnavailSUGEY Blair Attending Unavailable SUGEY ALLAN Referring Unavailable Marzena Banks MD Primary Care Provider Care Physician, No Primary Primary Care Unava ilable Norris Saeed Attending Unavailable Care Physician, No Primary Primary Care Unava ilable Herve Awad Attending Unavailable Williams Parekh Attending Unavailable Care Physician, No Primary Primary Care Unava ilable Care Physician, No Primary Primary Care Unava ilable Pranav Biggs Attending Unavailable HANNA, OMAR Referring Unavailable ELDON, MIKAEL Referring Unavailable ELDON, MIKAEL Referring Unavailable MIKAEL COLÓN Referring Unavailable CHULA MORTON Attending Unavailable KEMAR MANTILLA Primary Care Unavailable SUGEY ALLAN Referring Unavailable JASWANT ASKEW Attending Unavailable RHIANNA CAMPO Referring Unavailable SUGEY ALLAN Attending Unavailable MIKAEL COLÓN Referring Unavailable MIKAEL COLÓN Attending Unavailable JASWANT ASKEW Admitting Unavailable MARZENA BANKS Primary Care Unavailable LEIGH NWOAK Attending Unavailable DE GILL Attending Unavaila OMAR [place] Referring Unavailable HANNA, OMAR Referring Unavailable HANNA, OMAR Referring Unavailable CRESENCIO BOYLE Referring Unavailable EULALIA JUSTICE Attending Unavailable ANGELO PASCUAL Admitting Unavailable ANGELO PASCUAL Attending Unavailable MAKI MORTONHAMMAD S Admitting Unavailable CHULA MORTON S Attending Unavailable MIKAEL COLÓN Referring Unavailable MIKAEL COLÓN Attending Unavailable MIESHA RUBY Referring Unavailable MIKAEL COLÓN Attending Unavailable RC NOVAK Referring Unavaila MIESHA Paredes Attending Unavailable EULALIA JUSTICE Referring Unavailable RHIANNA CAMPO Attending Unavailable MIKAEL COLÓN Attending Unavailable Allergies Allergy Classification Reported Allergen(s) Allergy Type Date of Onset Reaction(s) Facility (20 sources) Adhesive Tape Allergy to substance Burn injury (morphologic abnormality) [facility] (20 sources) Adhesive Tape; Translations: [ADHESIVE TAPE (ROSINS)] Propensity to adverse reactions to substance 3 Rash [facility] (1 source) Adhesive Tape Drug allergy (disorder) [facility] Repository Medications Current Medications Medication Drug Class(es) Dates Sig (Normalized) Sig (Original) acetaminophen 500 mg oral tablet (20 sources) Start: 07-30-2024 take 2 tablets by mouth every six hours as needed acetaminophen (TYLENOL) 500 mg tablet Take 2 tablets by mouth every 6 hours as needed for pain. 07/30/2024 Active Start: 06-12-2024 End: 06-12-2024 take 1 dose [...] 05-24-2019 acetaminophen (TYLENOL) tabl et 650 mg acetaminophen 325 mg / HYDROcodone bitartrate 5 mg oral tablet (3 sources) Opioid Agonist Start: 08-25-2024 End: 08-28-2024 take 1 tablet by mouth every six hours as needed for pain [place] 325- 5 mg oral tablet Dose = 1 tab(s), Oral, q6h, PRN for pain, X 3 day(s), # 12 tab(s), 0 Refill(s), Pyelonephritis, 106.8 Start Date: 08/25/24 Stop Date: 08/28/24 Status: Ordered Start: 06-12-2024 End: 06-15-2024 take 1 tablet by mouth every six hours as needed for pain [place] 325- 5 mg oral tablet Dose = [...] / oxyCODONE hydrochloride 5 mg oral tablet (11 sources) Opioid Agonist Start: 02-09-2024 acetaminophen-oxyCODO NE 325 mg-5 mg oral tablet 0 Refill(s), 106.8 Start Date: 02/09/24 Status: Ordered Repeat number: 1 Start: 01-28-2024 End: 01-30-2024 take 1 tablet [...] day(s), # 18 tab(s), 0 Refill(s), Pharmacy: [facility]/pharmacy #[id number], Status post laparoscopy Status post ovarian cystectomy, 167.6, cm, 02/12/23 17:27:00 EDT, Height, 106.8 Start Date: 02/12/23 Stop Date: 02/15/23 Status: Ordered 12 hr acetaZOLAMIDE 500 mg extended release oral capsule (20 sources) Carbonic Anhydrase Inhibitor Start: 10-06-2024 End: 11-05-2024 take 1 capsule by mouth once daily in the evening acetaZOLAMIDE SR (DIAMOX SEQUELS) 500 mg capsule Indications: IIH (idiopathic intracranial hypertension) Take 1 capsule by mouth every evening. 30 capsule 5 10/06/2024 Active Start: 02-20-2024 End: 06-19-2024 take 2 capsules [...] A DAY Start Date: 05/31/23 Status: Ordered Repeat number: 1 Start: 08-05-2019 take 1 tablet by forrest th twice daily acetaZOLAMIDE (DIAMOX) 250 mg tablet Take 1 tablet by mouth twice daily. 180 tablet 3 08/05/2019 Active Start: 07-31-2019 take 1 capsule by mo uth twice daily acetaZOLAMIDE SR (DIAMOX SEQUELS) 500 [...] uth twice daily. Take 1 tablet by forrest th twice daily. ARIPiprazole 2 mg oral tablet (4 sources) Atypical Antipsychotic Start: 07-24-20 ARIPiprazole 2 mg oral tablet Dose : 2 mg = 1 tab(s), Oral, qDay, # 30 tab(s), 0 Refill(s) Start Date: 07/24/24 Status: Ordered Quantity: 30.0 Unit: tab(s) Repeat number: 1 aspirin 81 mg chewable tablet (20 sources) Platelet Aggregation Inhibitor, Nonsteroidal Anti-inflammatory Drug Start: 01-21-20 End: 01-27-20 take 1 tablet by mouth once daily aspirin 81 mg chewable tablet Take 1 tablet by mouth once daily for 6 days. Stop 01/26/25 6 tablet 01/20/2025 Active Start: 10-23-2024 take 1 tablet by forrest th once daily aspirin 81 mg chewable tablet Take 1 tablet by mouth once daily. Patient should start on October 23, 2024. 90 tablet 10/23/2024 Active Start: 10-23-2024 take 1 tablet by forrest th once daily aspirin 81 mg chewable tablet Take 1 tablet by mouth once daily. Patient should start on October 23, 2024. 90 tablet 10/23/2024 Active Start: 10-23-2024 take 1 tablet by forrest th once daily aspirin 81 mg chewable tablet Take 1 tablet by mouth once daily. Patient should start on October 23, 2024. 90 tablet 10/23/2024 Active Start: 06-12-2024 End: 01-20-2025 take 1 tablet by mouth once daily aspirin 325 mg tablet Indications: IIH (idiopathic intracranial hypertension) , Papilledema associated with increased intracranial pressure Take 1 tablet by mouth once daily. Patient should start on October 22, 2024. 90 tablet 10/22/2024 Active benoxinate hydrochloride 4 mg/ml / fluorescein sodium 3 mg/ml ophthalmic solution (10 sources) Diagnostic Dye Start: 10-06-2024 End: 10-18-2024 fluorescein-benoxinate 0.3-0.4 % 1 Drop (FLURESS) Start: 07-02-2024 End: 07-14-2024 fluorescein-benoxinate 0.3-0 .4 % 1 Drop (FLURESS) Start: 03-26-2024 End: 04-07-2024 fluorescein-benoxinate 0.3-0 .4 % 1 Drop (FLURESS) Start: 05-04-2023 End: 05-04-2023 fluorescein-benoxinate 0.25- 0.4 % 1 Drop (FLURESS) cephalexin 500 mg oral capsule (3 sources) Cephalosporin Antibacterial Start: 09-19-2024 End: 09-29-2024 cephalexin 500 mg oral capsule Dose : 500 mg = 1 cap(s), Oral, q12h, X 10 day(s), # 20 cap(s), 0 Refill(s), 09/29/24 8:58:00 PM EST, Pharmacy: [facility]/pharmacy #[id number], 167.6, cm, 07/24/24 16:06:00 EST, Height, 106.8, kg, 07/24/24 16:06:00 EST, Dosing Weight Start Date: 09/19/24 Stop Date: 09/29/24 Status: Ordered Quantity: 20.0 Unit: cap(s) Repeat number: 1 Start: 08-25-2024 End: 09-04-2024 cephalexin 500 mg oral capsu le Dose : 500 mg = 1 cap(s), Oral, QID, X 10 day(s), # 40 cap(s), 0 Refill(s), 09/04/24 1:00:00 AM EST, 106.8 Start Date: 08/25/24 Stop Date: 09/04/24 Status: Ordered cyclobenzaprine hydrochloride 10 mg oral tablet (3 sources) Muscle Relaxant Start: 05-24-2019 End: 06-04-2019 take 1 tablet by mouth three times daily cyclobenzaprine (FLEXERIL) 10 MG tablet Take 1 tablet by mouth 3 times daily for 10 days 30 tablet 0 05/25/2019 06/04/2019 Active dexamethasone 2 mg oral tablet (2 sources) Corticosteroid Start: 07-30-2024 End: 08-13-2024 take 2 tablets by mouth twice daily at mealtime, then take 1 tablet by mouth twice daily at mealtime dexAMETHasone (DECADRON) 2 mg tablet Take 2 tablets by mouth two times a day with meals for 7 days, THEN 1 tablet two times a day with meals for 7 days. 42 tablet 07/30/2024 08/13/2024 Active Start: 05-22-2019 End: 05-23-2019 dexamethasone (DECADRON) inj ection 4 mg diazePAM 5 mg oral tablet (10 sources) Benzodiazepine Start: 04-17-2024 End: 04-17-2024 take [...] pain, # 30 tab(s), 1 Refill(s), Pharmacy: [facility]/pharmacy #[id number], 167.6, cm, 03/15/21 15:21:00 EDT, Height, kg, 03/15/21 14:50:00 EDT, Dosing Weight Start Date: 03/15/21 Status: Ordered Comment on above: Take 600 mg by mouth every 6 hours as needed. LORazepam 1 mg oral tablet (20 sources) Benzodiazepine Start: 04-02-2024 LORazepam (ATIVAN) 1 mg tablet Take 1 mg by mouth as needed for anxiety. 04/02/2024 Active Start: 02-12-2023 End: 08-13-2024 LORazepam 0.5 mg oral tablet Dose : 0.5 mg = 1 tab(s), Oral, BID, PRN as needed for anxiety, 0 Refill(s), 106.8 Start Date: 02/12/23 Status: Ordered Repeat number: 1 Start: 05-23-2019 End: 05-23-2019 LORazepam (ATIVAN) tablet 0. 5 mg Start: 05-22-2019 End: 05-22-2019 LORazepam (ATIVAN) injection 0.5 mg Comment on above: Take 0.5 mg by mouth as needed. 24 hr metFORMIN hydrochloride 500 mg extended release oral tablet (19 sources) Biguanide Start: 09-26-19 End: 01-02-20 take 1 tablet by mouth once daily at lunch, then take 1 tablet by mouth twice daily at mealtime metFORMIN ER (GLUCOPHAGE XR) 500 mg 24 hr tablet Indications: IIH (idiopathic intracranial hypertension) , Episode of recurrent major depressive disorder, unspecified depression episode severity , Palpitations , BMI 38.0-38.9,adult , Central adiposity , Avoidant-restrictive food intake disorder (ARFID) , Disturbance in sleep behavior , Umbilical hernia without obstruction or gangrene Take 1 tablet by mouth daily with lunch for 7 days, THEN 1 tablet two times a day with meals. 187 tablet 2 09/26/2024 Active naproxen 500 mg delayed release oral tablet (2 sources) Nonsteroidal Anti-inflammatory Drug Start: 02-09-20 End: 02-14-20 naproxen 500 mg oral delayed release tablet Dose : 500 mg = 1 tab(s), Oral, BIDM, PRN Pain, X 5 day(s), # 10 tab(s), 0 Refill(s), 02/14/24 10:51:00 AM EDT Start Date: 02/09/24 Stop [...] 04/01/2024 Active ondansetron 4 mg oral tablet (20 sources) Serotonin-3 Receptor Antagonist Start: 01-28-2024 End: [...] q6h, # 20 tab(s), 0 Refill(s), Pharmacy: [facility]/pharmacy #[id number], 167.6, cm, 02/12/23 17:27:00 EDT, Height, kg, 02/12/23 17:27:00 EDT, Dosing Weight Start Date: 02/12/23 Stop Date: 02/17/23 Status: Ordered Quantity: 20.0 Unit: tab(s) Repeat number: 1 Start: 01-28-2023 End: 02-02-2023 Zofran 4 mg oral tablet Dose : 4 mg = 1 tab(s), Oral, q6h, # 20 tab(s), 0 Refill(s), Pharmacy: [facility]/pharmacy #[id number], 167.3, cm, 01/28/23 0:24:00 EDT, Height [...] Date: 02/07/23 Stop Date: 02/09/23 Status: Ordered phenylephrine hydrochloride 25 mg/ml ophthalmic solution (11 sources) alpha-1 Adrenergic Agonist Start: 10-06-2024 End: 10-18-2024 PHENYLephrine 2.5 % 1 Drop (AK-DILATE, JACLYN-SYNEPHRINE) Start: 10-06-2024 End: 10-18-2024 1 Drop, BOTH EYES, DIRECT ED, Starting on 10/06/24 at 1057, Until 10/18/24 at 1056, Administer for dilation PROTECT FROM LIGHT, OPHT CLINIC MED ORDERS Start: 03-26-2024 End: 04-07-2024 PHENYLephrine 2.5 % 1 Drop ( AK-DILATE, JACLYN-SYNEPHRINE) Start: 05-04-2023 End: 05-04-2023 PHENYLephrine 2.5 % 1 Drop ( AK-DILATE, JACLYN-SYNEPHRINE) proparacaine hydrochloride 5 mg/ml ophthalmic solution (10 sources) Local Anesthetic Start: 10-06-2024 End: 10-18-2024 proparacaine 0.5 % 1 Drop (ALCAINE) Start: 07-02-2024 End: 07-14-2024 proparacaine 0.5 % 1 Drop (A LCAINE) Start: 03-26-2024 End: 04-07-2024 proparacaine 0.5 % 1 Drop (A LCAINE) Start: 05-04-2023 End: 05-04-2023 proparacaine 0.5 % 1 Drop (A LCAINE) propranolol hydrochloride 10 mg oral tablet (8 sources) beta-Adrenergic Son Start: 02-09-2024 propra nolol 10 mg oral tablet 0 Refill(s) Start Date: 02/09/24 Status: Ordered Repeat number: 1 sennosides, senior care 8.6 mg oral tablet (1 source) Start: 05-22-2019 senna (SENOKOT ) tablet 8.6 mg 3 ml sodium chloride 9 mg/ml injection (4 sources) Start: 05-22-2019 sodium chlorid e flush 0.9 % injection 10 mL sodium chloride flush 0.9 % injection 3 mL (1 source) Start: 05-26-2019 sodium chlorid e flush 0.9 % injection 3 mL tropicamide 10 mg/ml ophthalmic solution (11 sources) Anticholinergic Start: 10-06-2024 End: 10-18-2024 tropicamide 1 % 1 Drop (MYDRIACYL) Start: 10-06-2024 End: 10-18-2024 1 Drop, BOTH EYES, DIRECT ED, Starting on 10/06/24 at 1057, Until 10/18/24 at 1056, Administer for dilation, OPHT CLINIC MED ORDERS Start: 03-26-2024 End: 04-07-2024 tropicamide 1 % 1 Drop (MYDR IACYL) Start: 05-04-2023 End: 05-04-2023 tropicamide 1 % 1 Drop (MYDR IACYL) 24 hr venlafaxine 75 mg extended release oral capsule (20 sources) Serotonin and Norepinephrine Reuptake Inhibitor Start: 02-09-2024 venlafaxine 75 mg oral capsule, extended release 0 Refill(s) Start Date: 02/09/24 Status: Ordered Repeat number: 1 Start: 12-31-2023 take 1 capsule by [facility] every hour venlafaxine ER (EFFEXOR XR) 75 [...] Drug Class(es) Dates Sig (Normalized) Sig (Original) acyclovir (ZOVIRAX) 595 mg in dextrose 5 [...] Take 500 mg by mouth twice daily. clopidogrel 75 mg oral tablet (20 sources) [id number] Platelet Inhibitor Start: 09-26-2024 End: 01-13-2025 take 1 tablet by mouth once daily clopidogrel (PLAVIX) 75 mg tablet Indications: IIH (idiopathic intracranial hypertension) , Papilledema associated with increased intracranial pressure Take 1 tablet by mouth once daily for 12 days. 12 tablet 10/10/2024 01/13/2025 Discontinued (Course of therapy completed) Start: 07-31-2024 End: 11-12-2024 take 2 tablets by mouth once daily, then take 1 tablet by mouth once daily clopidogrel (PLAVIX) 75 mg tablet Take 2 tablets by mouth once daily for 14 days, THEN 1 tablet once daily. 07/31/2024 09/26/2024 Discontinued Start: 06-12-2024 End: 09-10-2024 clopidogrel 75 mg oral table t Dose : 75 mg = 1 tab(s), Oral, qDay, # 30 tab(s), 0 Refill(s) Start Date: 07/24/24 Status: Ordered Quantity: 30.0 Unit: tab(s) Repeat number: 1 gabapentin 300 mg oral capsule (1 source) Anti-epileptic Agent Start: 06-25-2018 gabapenti n (NEURONTIN) 300 mg capsule Take 400 mg by mouth once daily. 0 06/25/2018 Active Comment on above: Take 400 mg by mouth once daily. gadobenate dimeglumine (MULTIHANCE) injection 20 mL (1 source) Start: 05-22-2019 End: 05-22-2019 gadobenate dimeglumine (MULTIHANCE) injection 20 mL iv contrast (will be provided with radiology test) (20 sources) Start: 10-08-2024 End: 10-09-2024 iv contrast (will be provided with radiology [...] MR contrast administration guidelines link. 1 Each 10/08/2024 10/09/2024 Start: 03-26-2024 End: 01-22-2025 iv contrast (will be provide d with radiology test) Indications: IIH (idiopathic intracranial [...] contrast administration guidelines link. 1 Each 03/26/2024 01/22/2025 Discontinued Start: 03-26-2024 iv contrast (w ill be [...] guidelines link. 1 Each 0 03/26/2024 Active 1 ml ketorolac tromethamine 30 mg/ml cartridge [...] above: Take 1 tablet by forrest th once daily. magnesium sulfate 1 g in dextrose 5 % 100 mL IVPB (1 source) Start: 05-22-2019 End: 05-23-2019 magnesium sulfate 1 g in dextrose 5 % 100 mL IVPB methocarbamol 500 mg oral tablet (20 sources) Muscle Relaxant Start: 07-30-2024 End: 01-22-2025 take 1 tablet by mouth every eight hours as needed methocarbamol (ROBAXIN) 500 mg tablet Take 1 tablet by mouth three times a day as needed (Headache). 30 tablet 07/30/2024 01/22/2025 Discontinued metroNIDAZOLE 500 mg oral tablet (1 source) Nitroimidazole Antimicrobial Start: 07-18-2018 metroNIDAZOLE (FLAGYL) 500 mg tablet Take 500 mg by mouth. 0 07/18/2018 Active Comment on above: Take 500 mg by mouth . Miscellaneous Medical Supply (BLOOD PRESSURE CUFF) (20 sources) Start: 09-13-2023 End: 01-22-2025 Miscellaneous Medical Supply (BLOOD PRESSURE CUFF) Indications: Hypertension, unspecified type 1 Each once daily. 1 Each 09/13/2023 01/22/2025 Discontinued Start: 09-13-2023 Miscellaneous Medical Supply (BLOOD PRESSURE [...] Comment on above: 1 Each once daily. mupirocin 0.02 mg/mg topical ointment (1 source) RNA Synthetase Inhibitor Antibacterial End: 05-22-20 mupirocin (BACTROBAN) 2 % ointment Apply topically 3 times daily Apply topically 3 times daily. 0 05/22/2019 Discontinued omeprazole 20 mg delayed release oral capsule (1 source) Proton Pump Inhibitor Start: 07-29-20 take 2 capsules by mouth once daily omeprazole (PRILOSEC) 20 mg capsule Take 2 capsules by mouth once daily. 60 capsule 3 07/29/2018 Active Comment on above: Take 2 capsules by m outh once daily. pantoprazole 40 mg delayed release oral tablet (20 sources) Proton Pump Inhibitor Start: 06-12-20 End: 01-23-20 take 1 tablet by mouth once daily pantoprazole DR (PROTONIX) 40 mg tablet Indications: IIH (idiopathic intracranial hypertension) , Papilledema associated with increased intracranial pressure Take 1 tablet by mouth once daily. 90 tablet 09/02/2024 01/22/2025 Discontinued VIT/IRON FUMARATE/FA ( VITAMIN ORAL) (1 source) VIT/IRO N FUMARATE/FA ( VITAMIN ORAL) Take by mouth. 0 Active Comment on above: Take by mouth. QUEtiapine 25 mg oral tablet (1 source) Atypical Antipsychotic Start: 11-20-19 End: 05-22-20 take 1.5 tablets by mouth once daily QUEtiapine (SEROQUEL) 25 MG tablet Take 1.5 tablets by mouth nightly 45 tablet 0 11/19/2017 05/22/2019 Discontinued Problems Active Problems Problem Classification Problem Date Documented Date Episodic/Chronic Abdominal hernia (11 sources) Umbilical hernia; Translations: [Umbilical hernia without obstruction or gangrene] Onset: 5 09-26-2024 Episodic Acute and unspecified renal failure (3 sources) Acute injury of kidney; Translations: [XENIA (acute kidney injury)] 05-24-2019 Anxiety disorders (20 sources) Anxiety; Translations: [Posttraumatic stress disorder] Onset: 4 12-07-2013 Chronic Calculus of urinary tract (20 sources) Kidney stone; Translations: [Calculus of kidney] Onset: 4 01-01-2015 Episodic Disorders of lipid metabolism (3 sources) Hyperlipidemia; Translations: [Other hyperlipidemia] Onset: 9 05-23-2019 Chronic Disorders of teeth and jaw (1 source) Other specified disorders of teeth and supporting structures; Translations: [Other specified disorders of teeth and supporting structures] Onset: 5 Episodic E Codes: Fall (2 sources) Fall; Translations: [Unspecified fall, initial encounter] 12-13-2023 Episodic Ectopic (10 sources) Ectopic ; Translations: [Unspecified ectopic without intrauterine ] Onset: 3 01-28-2023 Episodic Esophageal disorders (3 sources) Gastro-esophageal reflux disease with esophagitis; Translations: [Gastroesophageal reflux disease with esophagitis without hemorrhage] Onset: 5 01-23-2025 Chronic Esophageal disorders (1 source) Esophageal disorders; Translations: [Gastroesophageal reflux disease with esophagitis without hemorrhage] Onset: 5 Essential hypertension (20 sources) Hypertensive disorder; Translations: [Essential (primary) hypertension] Onset: 3 12-07-2013 Chronic Fever of unknown origin (1 source) Fever; Translations: [Fever, unspecified] Episodic Headache; including migraine (20 sources) Migraine with aura; Translations: [Migraine with aura, not intractable, without status migrainosus] Onset: 3 02-27-2023 Chronic Miscellaneous mental health disorders (3 sources) Avoidant restrictive food intake disorder; Translations: [Avoidant/restrictive food intake disorder] Onset: 5 09-26-2024 Chronic Mood disorders (20 sources) Depressive disorder; Translations: [Severe recurrent major depression without psychotic features] Onset: 4 05-22-2019 Chronic Other and ill-defined cerebrovascular disease (20 sources) Disorder of intracranial venous sinus; Translations: [Cerebrovascular disease, unspecified] Onset: 4 06-21-2024 Chronic Other and ill-defined cerebrovascular disease (3 sources) Cerebrovascular disease; Translations: [Cerebrovascular disease, unspecified] 10-08-2024 Chronic Other and ill-defined cerebrovascular disease (2 sources) Cerebrovascular disease, unspecified; Translations: [Intracranial vascular stenosis] Onset: 4 Chronic Other complications of (1 source) Chemical ; Translations: [Inappropriate change in quantitative human chorionic gonadotropin (hCG) in early ] Episodic Other connective tissue disease (1 source) Pain of left lower leg; Translations: [Pain in left lower leg] Onset: 3 Episodic Other connective tissue disease (3 sources) [...] Episodic Other ear and sense organ disorders (5 sources) Tinnitus of vascular origin; Translations: [Pulsatile tinnitus, unspecified ear] 03-26-2024 Episodic Other eye disorders (7 sources) 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; Translations: [Papilledema associated with increased intracranial pressure] 05-04-2023 Chronic Other eye disorders (2 sources) Papilledema associated with increased intracranial pressure; Translations: [Papilledema associated with increased intracranial pressure] Onset: 4 Chronic Other eye disorders (1 source) Iris transillumination; 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), left eye] 03-10-2024 Episodic Other eye disorders (3 sources) 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; Translations: [Papilledema of both eyes] Onset: 9 05-23-2019 Other injuries and conditions due to external causes (1 source) Injury of left wrist; Translations: [Unspecified injury of left wrist, hand and finger(s), initial encounter] 04-27-2024 Episodic Other nervous system disorders (20 sources) Benign intracranial hypertension; Translations: [Benign intracranial hypertension] Onset: 1 05-24-2019 Chronic Other nervous system disorders (1 source) Raised intracranial pressure; Translations: [Benign intracranial hypertension] 06-21-2024 Chronic Other nervous system disorders (3 sources) Benign intracranial hypertension; Translations: [IIH (idiopathic intracranial hypertension)] Onset: 1 Chronic Other nervous system disorders (1 source) Paresthesia; Translations: [Paresthesia of skin] 07-02-2024 Episodic Other nervous system disorders (1 source) Other acute postprocedural pain; Translations: [Post-op pain] Onset: 5 Episodic Other non-traumatic joint disorders (3 sources) Acute ankle pain; Translations: [Pain in left ankle and joints of left foot] 12-13-2023 Episodic Other nutritional; endocrine; and metabolic disorders (3 sources) Obesity; Translations: [Class 2 obesity in adult] Onset: 9 05-23-2019 Chronic Other nutritional; endocrine; and metabolic disorders (2 sources) Childhood obesity; Translations: [Other obesity due to excess calories] Onset: 1 11-24-2020 Chronic Other nutritional; endocrine; and metabolic disorders (20 sources) Obesity caused by energy imbalance; Translations: [Other obesity due to excess calories] Onset: 1 11-24-2020 Chronic Other nutritional; endocrine; and metabolic disorders (1 source) Other obesity due to excess calories; Translations: [Obesity due to excess calories without serious comorbidity, unspecified class] Onset: 1 Chronic Other nutritional; endocrine; and metabolic disorders (2 sources) Body mass index 30+ - obesity; Translations: [Body mass index (BMI) 38.0-38.9, adult] 09-26-2024 Chronic Other nutritional; endocrine; and metabolic disorders (2 sources) Body fat unevenly distributed; Translations: [Localized adiposity] 09-26-2024 Chronic Other nutritional; endocrine; and metabolic disorders (1 source) Body mass index 40+ - severely obese; Translations: [Obesity, Class III, BMI 40-49.9 (morbid obesity)] Onset: 5 01-28-2025 Chronic Other nutritional; endocrine; and metabolic disorders (1 source) Body mass index (BMI) 38.0-38.9, adult; Translations: [BMI 38.0-38.9,adult] Onset: 5 Chronic Other nutritional; endocrine; and metabolic disorders (1 source) Localized adiposity; Translations: [Central adiposity] Onset: 5 Chronic Other nutritional; endocrine; and metabolic disorders (1 source) H/O: metabolic disorder; Translations: [Personal history of other endocrine, nutritional and metabolic disease] 03-26-2024 Episodic Other upper respiratory disease (1 source) Nasal discharge; Translations: [Other specified disorders of nose and nasal sinuses] 03-26-2024 Episodic Otitis media and related conditions (1 source) Otitis media; Translations: [Otitis media, unspecified, right ear] Onset: 4 Episodic Ovarian cyst (10 sources) Cyst of ovary; Translations: [Cyst of left ovary] Onset: 3 10-12-2014 Episodic Residual codes; unclassified (2 sources) Past history of procedure; Translations: [Other specified postprocedural states] Onset: 3 Episodic Residual codes; unclassified (1 source) Acquired absence of other genital organ(s); Translations: [Acquired absence of other genital organ(s)] Onset: 3 Episodic Residual codes; unclassified (1 source) Severe pain; Translations: [Pain, unspecified] Episodic Residual codes; unclassified (2 sources) Disturbance in sleep behavior; Translations: [Sleep disorder, unspecified] 09-26-2024 Episodic Residual codes; unclassified (3 sources) At risk of apnea; Translations: [Other specified personal risk factors, not elsewhere classified] Onset: 5 01-23-2025 Episodic Residual codes; unclassified (1 source) Other specified personal risk factors, not elsewhere classified; Translations: [At risk for sleep apnea] Onset: 5 Episodic Spondylosis; intervertebral disc disorders; other back problems (1 source) Backache; Translations: [Dorsalgia, unspecified] Onset: 5 Episodic Spontaneous (1 source) Incomplete miscarriage with complication; Translations: [Incomplete spontaneous with other complications] Episodic Sprains and strains (1 source) Sprain of left ankle; Translations: [Sprain of unspecified ligament of left ankle, initial encounter] 01-08-2024 Episodic Superficial injury; contusion (1 source) Contusion of abdominal wall, initial encounter; Translations: [Contusion of abdominal wall, initial encounter] Onset: 5 Episodic Syncope (1 source) Near syncope; Translations: [Syncope and collapse] Episodic Unclassified (1 source) Unknown / UNK(Unknown) Onset: 7 Unclassified (11 sources) 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 Unclassified (3 sources) Preprocedural examination done 11-13-2024 Unclassified (1 source) Patient encounter status 01-13-2025 Urinary tract infections (2 sources) Tubulointerstitial nephritis; Translations: [Tubulo-interstitial nephritis, not specified as acute or chronic] Onset: 4 Episodic Past or Other Problems Problem Classification Problem Date Documented Da te Episodic/Chronic Abdominal pain (20 sources) Right lower quadrant pain; Translations: [Right lower quadrant pain] Onset: 08-16-2005 08-16-2005 Episodic Blindness and vision defects (7 sources) Transient visual loss; Translations: [Localized visual field defect] Onset: 05-25-2019 05-25-2019 Episodic Cardiac dysrhythmias (20 sources) Palpitations; Translations: [Palpitations] Onset: 08-22-2013 08-22-2013 Episodic Headache; including migraine (7 sources) Headache; Translations: [Headache] Onset: 05-22-2019 05-22-2019 Episodic Miscellaneous mental health disorders (20 sources) depression; Translations: [ depression] Onset: 07-18-2013 Resolved: 07-25-2024 08-22-2013 Episodic Other connective tissue disease (1 source) Pain in left arm; Translations: [Pain in left arm] Onset: 05-08-2024 Episodic Other ear and sense organ disorders (3 sources) Tinnitus; Translations: [Tinnitus] Onset: 05-25-2019 05-25-2019 Episodic Other ear and sense organ disorders (1 source) Pulsatile tinnitus, unspecified ear; Translations: [Pulsatile tinnitus] Onset: 05-15-2024 Episodic Other lower respiratory disease (20 sources) Nodule of lung; Translations: [Solitary pulmonary nodule] Onset: 07-18-2013 08-22-2013 Episodic Other nutritional; endocrine; and metabolic disorders (1 source) Personal history of other endocrine, nutritional and metabolic disease; Translations: [History of metabolic acidosis] Onset: 03-26-2024 Episodic Residual codes; unclassified (20 sources) Pain; Translations: [Pain, unspecified] Onset: 07-18-2013 07-18-2013 Episodic Residual codes; unclassified (20 sources) Difficult venous access; Translations: [Other specified health status] Onset: 07-25-2024 07-25-2024 Episodic Residual codes; unclassified (2 sources) Other specified health status; Translations: [Difficult intravenous access] Onset: 07-25-2024 Episodic Residual codes; unclassified (1 source) Illness, unspecified; Translations: [Illness, unspecified] Onset: 09-11-2024 Episodic Residual codes; unclassified (1 source) Sleep disorder, unspecified; Translations: [Disturbance in sleep behavior] Onset: 11-10-2024 Episodic Unclassified (1 source) UPPER BACK PAIN Onset: 03-22-2017 Results Test Name Value Interpretation Reference Range Facility Basic metabolic 2000 panelon 02-08-2025 Anion gap [Moles/Vol] 17 mmol/L High 8-15 [facility] Comment on above: Order Comment: Evaristo griffin Type: BLOOD SPECIMEN Ordering Facility: [facility] Address: [address] [place] [address] Performed By: #### 5 7021-8 #### [facility] CLIA [id number] [address] [place] [address] [place] Calcium [Mass/Vol] 8.1 mg/dL Low 8.5-10.2 [facility] Comment on above: Order Comment: Evaristo griffin Type: BLOOD SPECIMEN Ordering Facility: [facility] Address: [address] [place] [address] Performed By: #### 5 7021-8 #### [facility] CLIA [id number] [address] [place] [address] [place] Chloride [Moles/Vol] 101 mmol/L Normal 98-107 [facility] Comment on above: Order Comment: Evaristo griffin Type: BLOOD SPECIMEN Ordering Facility: [facility] Address: [address] [place] [address] Performed By: #### 5 7021-8 #### [facility] CLIA [id number] [address] [place] [address] [place] CO2 [Moles/Vol] 21 mmol/L Low 22-30 [facility] Comment on above: Order Comment: Evaristo griffin Type: BLOOD SPECIMEN Ordering Facility: [facility] Address: [address] [place] [address] Performed By: #### 5 7021-8 #### [facility] IA [id number] [address] [place] [address] [place] Creatinine [Mass/Vol] 0.71 mg/dL Normal 0.58-0.96 [facility] Comment on above: Order Comment: Evaristo griffin Type: BLOOD SPECIMEN Ordering Facility: [facility] Address: [address] [place] [address] Performed By: #### 5 7021-8 #### [facility] IA [id number] [address] [place] [address] [place] Creatinine and Glomerular filtration rate.predicted panel (S/P/Bld) 112 mL/min/1.73m??? Normal >=60 [facility] Comment on above: Order Comment: Evaristo griffin Type: BLOOD SPECIMEN Ordering Facility: [facility] Address: [address] [place] [address] Result Comment: Bhavya mated Glomerular Filtration Rate [...] accurately reflect actual GFR. Performed By: #### 5 7021-8 #### [facility] CLIA [id number] [address] [place] [address] [place] Glucose [Mass/Vol] 29 mg/dL Critically low 74-99 [facility] Comment on above: Order Comment: Evaristo griffin Type: BLOOD SPECIMEN Ordering Facility: [facility] Address: [address] [id number] Result Comment: The [place] [employer] (ADA) provides guidance for cutoff [...] Standards of Medical Care in Diabetes 2016, [place] [employer]. Diabetes Care. 2016.39(Suppl 1). Performed By: #### 5 7021-8 #### [facility] CLIA [id number] [address] [place] [address] [place] Potassium [Moles/Vol] 4.2 mmol/L Normal 3.7-5.1 [facility] Comment on above: Order Comment: Speci men Type: BLOOD SPECIMEN Ordering Facility: [facility] Address: [address] [place] [address] Performed By: #### 5 7021-8 #### [facility] CLIA [id number] [address] [place] [address] [place] Sodium [Moles/Vol] 139 mmol/L Normal 136-144 [facility] Comment on above: Order Comment: Speci men Type: BLOOD SPECIMEN Ordering Facility: [facility] Address: [address] [place] [address] Performed By: #### 5 7021-8 #### [facility] CLIA [id number] [address] [place] [address] [place] Urea nitrogen [Mass/Vol] 10 mg/dL Normal 7-21 [facility] Comment on above: Order Comment: Speci men Type: BLOOD SPECIMEN Ordering Facility: [facility] Address: [address] [place], [place] [id number] Performed By: #### 5 7021-8 #### [facility] CLIA [id number] [address] [place] [address] [place] CBC W Auto Differential pane l (Bld)on 02-08-2025 Basophils (Bld) [#/Vol] 0.04 10*3/uL Normal <0.11 [facility] Comment on above: Order Comment: Speci men Type: BLOOD SPECIMEN Ordering Facility: [facility] Address: [address] [place] [address] Performed By: #### 5 7021-8 #### [facility] CLIA [id number] [address] [place] [address] [place] Basophils/100 WBC (Bld) 0.4 % Normal [facility] Comment on above: Order Comment: Speci men Type: BLOOD SPECIMEN Ordering Facility: [facility] Address: [address] [place] [address] Performed By: #### 5 7021-8 #### [facility] CLIA [id number] [address] [place] [address] [place] Differential cell count method Nom (Bld) Auto Normal [facility] Comment on above: Order Comment: Speci men Type: BLOOD SPECIMEN Ordering Facility: [facility] Address: [address] [place] [address] Performed By: #### 5 7021-8 #### [facility] CLIA [id number] [address] [place] [address] [place] Eosinophils (Bld) [#/Vol] 0.33 10*3/uL Normal <0.46 [facility] Comment on above: Order Comment: Speci men Type: BLOOD SPECIMEN Ordering Facility: [facility] Address: [address] [place] [address] Performed By: #### 5 7021-8 #### [facility] CLIA [id number] [address] [place] [address] [place] Eosinophils/100 WBC (Bld) 3.0 % Normal [facility] Comment on above: Order Comment: Speci men Type: BLOOD SPECIMEN Ordering Facility: [facility] Address: [address] [place] [address] Performed By: #### 5 7021-8 #### [facility] CLIA [id number] [address] [place] [address] [place] Erythrocyte distribution width (RBC) [Ratio] 16.4 % High 11.5-15.0 [facility] Comment on above: Order Comment: Speci men Type: BLOOD SPECIMEN Ordering Facility: [facility] Address: [address] [place] [address] Performed By: #### 5 7021-8 #### [facility] CLIA [id number] [address] [place] [address] [place] Hematocrit (Bld) [Volume fraction] 32.6 % Low 36.0-46.0 [facility] Comment on above: Order Comment: Speci men Type: BLOOD SPECIMEN Ordering Facility: [facility] Address: [address] [place] [address] Performed By: #### 5 7021-8 #### [facility] CLIA [id number] [address] [place] [address] [place] Hemoglobin (Bld) [Mass/Vol] 8.9 g/dL Low 11.5-15.5 [facility] Comment on above: Order Comment: Speci men Type: BLOOD SPECIMEN Ordering Facility: [facility] Address: [address] [place] [address] Performed By: #### 5 7021-8 #### [facility] CLIA [id number] [address] [place] [address] [place] Immature granulocytes (Bld) [#/Vol] 0.04 10*3/uL Normal <0.10 [facility] Comment on above: Order Comment: Speci men Type: BLOOD SPECIMEN Ordering Facility: [facility] Address: [address] [place] [address] Performed By: #### 5 7021-8 #### [facility] CLIA [id number] [address] [place] [address] [place] Immature granulocytes/100 WBC (Bld) 0.4 % Normal [facility] Comment on above: Order Comment: Speci men Type: BLOOD SPECIMEN Ordering Facility: [facility] Address: [address] [place] [address] Performed By: #### 5 7021-8 #### [facility] CLIA [id number] [address] [place] [address] [place] Lymphocytes (Bld) [#/Vol] 1.78 10*3/uL Normal 1.00-4.00 [facility] Comment on above: Order Comment: Speci men Type: BLOOD SPECIMEN Ordering Facility: [facility] Address: [address] [place] [address] Performed By: #### 5 7021-8 #### [facility] CLIA [id number] [address] [place] [address] [place] Lymphocytes/100 WBC (Bld) 16.1 % Normal [facility] Comment on above: Order Comment: Speci men Type: BLOOD SPECIMEN Ordering Facility: [facility] Address: [address] [place] [address] Performed By: #### 5 7021-8 #### [facility] CLIA [id number] [address] [place] [address] [place] MCH (RBC) [Entitic mass] 21.2 pg Low 26.0-34.0 [facility] Comment on above: Order Comment: Speci men Type: BLOOD SPECIMEN Ordering Facility: [facility] Address: [address] [place] [address] Performed By: #### 5 7021-8 #### [facility] CLIA [id number] [address] [place] [address] [place] MCHC (RBC) [Mass/Vol] 27.3 g/dL Low 30.5-36.0 [facility] Comment on above: Order Comment: Speci men Type: BLOOD SPECIMEN Ordering Facility: [facility] Address: [address] [place] [address] Performed By: #### 5 7021-8 #### [facility] CLIA [id number] [address] [place] [address] [place] MCV (RBC) [Entitic vol] 77.6 fL Low 80.0-100.0 [facility] Comment on above: Order Comment: Speci men Type: BLOOD SPECIMEN Ordering Facility: [facility] Address: [address] [place] [address] Performed By: #### 5 7021-8 #### [facility] CLIA [id number] [address] [place] [address] [place] Monocytes (Bld) [#/Vol] 0.86 10*3/uL Normal <0.87 [facility] Comment on above: Order Comment: Speci men Type: BLOOD SPECIMEN Ordering Facility: [facility] Address: [address] [place] [address] Performed By: #### 5 7021-8 #### [facility] CLIA [id number] [address] [place] [address] [place] Monocytes/100 WBC (Bld) 7.8 % Normal [facility] Comment on above: Order Comment: Speci men Type: BLOOD SPECIMEN Ordering Facility: [facility] Address: [address] [place] [address] Performed By: #### 5 7021-8 #### [facility] CLIA [id number] [address] [place] [address] [place] Neutrophils (Bld) [#/Vol] 8.03 10*3/uL High 1.45-7.50 [facility] Comment on above: Order Comment: Speci men Type: BLOOD SPECIMEN Ordering Facility: [facility] Address: [address] [place] [address] Performed By: #### 5 7021-8 #### [facility] CLIA [id number] [address] [place] [address] [place] Neutrophils/100 WBC (Bld) 72.3 % Normal [facility] Comment on above: Order Comment: Speci men Type: BLOOD SPECIMEN Ordering Facility: [facility] Address: [address] [place] [address] Performed By: #### 5 7021-8 #### [facility] CLIA [id number] [address] [place] [address] [place] Nucleated RBC (Bld) [#/Vol] 10*3/uL Normal <0.01 [facility] Comment on above: Order Comment: Speci men Type: BLOOD SPECIMEN Ordering Facility: [facility] Address: [address] [place] [address] Performed By: #### 5 7021-8 #### [facility] CLIA [id number] [address] [place] [address] [place] Nucleated RBC/100 WBC (Bld) [Ratio] 0.0 /100 WBC Normal [facility] Comment on above: Order Comment: Speci men Type: BLOOD SPECIMEN Ordering Facility: [facility] Address: [address] [place] [address] Performed By: #### 5 7021-8 #### [facility] CLIA [id number] [address] [place] [address] [place] Platelet mean volume (Bld) [Entitic vol] 9.9 fL Normal 9.0-12.7 [facility] Comment on above: Order Comment: Speci men Type: BLOOD SPECIMEN Ordering Facility: [facility] Address: [address] [place] [address] Performed By: #### 5 7021-8 #### [facility] CLIA [id number] [address] [address] [place] Platelets (Bld) [#/Vol] 297 10*3/uL Normal 150-400 [facility] Comment on above: Order Comment: Speci men Type: BLOOD SPECIMEN Ordering Facility: [facility] Address: [address] [place] [address] Performed By: #### 5 7021-8 #### [facility] CLIA [id number] [address] [place] [address] [place] RBC (Bld) [#/Vol] 4.20 10*6/uL Normal 3.90-5.20 [facility] Comment on above: Order Comment: Speci men Type: BLOOD SPECIMEN Ordering Facility: [facility] Address: [address] [place] [address] Performed By: #### 5 7021-8 #### [facility] CLIA [id number] [address] [place] [address] [place] WBC (Bld) [#/Vol] 11.08 10*3/uL High 3.70-11.00 [facility] Comment on above: Order Comment: Speci men Type: BLOOD SPECIMEN Ordering Facility: [facility] Address: [address] [place] [address] Performed By: #### 5 7021-8 #### [facility] CLIA [id number] [address] [place] [address] [place] CRP SerPl-mCncon 02-08-2025 CRP [Mass/Vol] 3.7 mg/dL High <0.9 [facility] Comment on above: Order Comment: Speci men Type: BLOOD SPECIMEN Ordering Facility: [facility] Address: [address] [place] [address] Performed By: #### 5 7021-8 #### [facility] CLIA [id number] [address] [place], [place] [id number] [place] MEDICAL EMERon 02-08-2025 [facility] ID: [id number] Author: Bentley BARAJAS MD Service: Anesthesiology Author Type: Anesthesiologist Type: Chg in Clinical Condition Filed: 02/09/2025 10:11 Note Text: MEDICAL EMERGENCY TEAM AMET CODE STATUS: Code Status: Not on file BACKGROUND 39 yo female admitted 02/06, underwent 1. Left myofascial advancement flap 2. Right myofascial advancement flap 3. Robotic incisional hernia repair with mesh 4. Excision of prior abdominal wall mesh Having some nausea postop. This morning, ambulated to bathroom. standing outside door of bathroom. Patient states urinated and had a bowel movement. Started to become dizzy with increased nausea. Said was able to lay herself down onto bathroom floor and called for . said door was closed, but he was just outside. She was helped back to her feet and assisted back to bed. Said did not pass out, nor did she hit her head or any other body part. Said has a history of palpitations, and many years ago, wore a heart monitor for a couple days. No diagnosed dysrhythmias. H/O idiopathic intracranial hypertension s/p transverse sinus stent in 2023. Denies chest pain, increased abdominal pain, diaphoresis, fever, chills, palpitations. Said she feels she needs to use the bathroom again. Supine BP 123/74. Sitting BP 112/66 HR 94. While sitting on bedside commode, said doing OK. ECG NSR 86/min QTc 445, no ectopy. REASON FOR CALL Acute Neurological Change: Near syncope. ASSESSMENT Near syncope associated with nausea. Most likely orthostatic vs vasovagal. INTERVENTIONS No intervention required. DISPOSITIONS Improved Primary Team Notified: at bedside PAST MEDICAL / SURGICAL HISTORY PAST MEDICAL HISTORY Diagnosis Date Adjustment disorder with depressed mood Ectopic (HCC) 12/2022 IIH (idiopathic intracranial hypertension) PMH - PAST MEDICAL HISTORY OF 11/10/93-color vision normal Post depression 07/18/2013 hypertension (HCC) PTSD (post-traumatic stress disorder) Unequal pupils left > right PAST SURGICAL HISTORY Procedure Laterality Date CHOLECYSTECTOMY 2010 COLONOSCOPY FLX DX W/COLLJ SPEC WHEN PFRMD 07/29/2018 Colonoscopy ECTOPIC - TREATMENT 02/12/2023 ESOPHAGOGASTRODUODENOSCOPY TRANSORAL DIAGNOSTIC 07/29/2018 EGD MYRINGOTOMY ASPIRAND/EUSTACHIAN TUBE NFLTJ ANES 08/31/2015 Myringotomy/tubes- right ear PAST SURGICAL HISTORY OF tubes in ears, several times PAST SURGICAL HISTORY OF Right 07/2024 stenting and angioplasty of the right TSJ. PAST SURGICAL HISTORY OF laparoscopic ovarian surgery PAST SURGICAL HISTORY OF 2011 open incisional hernia pair with mesh REPAIR UMBILICAL HERNIA 2011 UNSPECIFIED ORAL SURGERY PROCEDURE, BY REPORT 4 teeth pulled [facility] DELIVERY SCHEDULING ORDER [facility] PERTINENT PHYSICAL EXAM and INITIAL ASSESSMENT (For vital signs prior and during MET call, see nursing documentation) Pertinent Vital Signs at Time of MET Call: 87-137/81-16-94% on room air. Appearance: Alert, Mild distress, and Cooperative Airway Patent: Yes Breathing Evaluation: Normal Circulation Evaluation: Pulses Full, bounding and Regular and Heart Sounds no murmer Neurologic Evaluation: GCS Evaluation: 4. Spontaneous, 5: Oriented 6: Obeys Motor commands Is the Level of Consciousness at Baseline: Yes Head/Eyes: PERRLA and EOM's intact Lungs: clear Peripheral 02/07/252299 [facility] Short Right Forearm 22 Gauge (Active) Placement Date/Time: 02/07/252299 Line, Drain, Airway Placed by: [facility] Type of Peripheral Line: Short Location: Right Insertion Site: Forearm Size: 22 Gauge PERTINENT DIAGNOSTICS Diagnostic Tests Reviewed: Most recent labs and imaging results. Primary Team Aware/Notified: at bedside CRITICAL CARE TIME: I personally spent 30 minutes directly supervising and providing non-critical care to the patient as noted above.. I have reviewed, approved and signed the paper MET note. Please refer to this for complete orders and nursing/respiratory documentation. SIGNATURE: Maco Barajas MD PATIENT NAME: Omar Gomez DATE: February 08, 2025 TIME: 6:17 AM Normal [facility] Magnesium SerPl-mCncon 02-08 Magnesium [Mass/Vol] 2.3 mg/dL Normal 1.7-2.3 [facility] Comment on above: Order Comment: Speci men Type: BLOOD SPECIMEN Ordering Facility: [facility] Address: [address] [place] [address] Performed By: #### 5 7021-8 #### [facility] CLIA [id number] [address] [place] [address] OF [facility] NURSING PROGon 02-08-2025 NURSING PROG HNO ID: [id number] Author: DELPHINE VILLALTA, HAN Service: Nursing Author Type: Registered Nurse Type: Nursing Progress Note Filed: 02/08/2025 06:09 Note Text: Nursing Progress Note Vital Monorail Crane Operator Assessment Note Patient Name: Omar Gomez Patient Location: [place] [address] Patient Vitals for the past 4 hrs: BP Temp Temp src Pulse Resp SpO2 02/08/25 0550 135/86 36.8 ?C (98.2 ?F) Oral 74 16 96 % Status Change Related to: Cardiac Issues (See Nursing Clinical Assessment For Details) The Following People Were Notified: Code/Rapid Response Team;Card Dealer/Provider: Ronak Escalante See Documentation Related to: Code/Rapid Response;Labs;Point of Care Testing Additional Comments : Patient stated that she was feeling dizzy/nauseus on toilet and laid down to prevent loss of consciousness, EKG and BGL taken This note was completed by: Delphine Villalta RN Normal [facility] Phosphate SerPl-mCncon 02-08 Phosphate [Mass/Vol] 2.9 mg/dL Normal 2.7-4.8 [facility] Comment on above: Order Comment: Speci men Type: BLOOD SPECIMEN Ordering Facility: [facility] Address: [address] [place] [address] Performed By: #### 5 7021-8 #### [facility] CLIA [id number] [address] [place] [address] OF [place] Basic metabolic 2000 panelon 02-07-2025 Anion gap [Moles/Vol] 12 mmol/L Normal 8-15 [facility] Comment on above: Order Comment: Speci men Type: BLOOD SPECIMENOrdering Facility: [facility] Address: [address] [place] [address] Performed By: #### 2 4320-2, 1988-01, , 2776-09 ####[facility] [id number] [address] [address] [place] Calcium [Mass/Vol] 7.9 mg/dL Low 8.5-10.2 [facility] Comment on above: Order Comment: Speci men Type: BLOOD SPECIMENOrdering Facility: [facility] Address: [address] [place], [place] [address] Performed By: #### 2 432-2, 1988-01, , 2776-09 ####[facility]IA [id number] [address] [address] [place] Chloride [Moles/Vol] 107 mmol/L Normal 98-107 [facility] Comment on above: Order Comment: Speci men Type: BLOOD SPECIMENOrdering Facility: [facility] Address: [address] [place], [place] [address] Performed By: #### 2 4322, 1988-01, , 2776-09 ####[facility]IA [id number] [address] [address] [place] CO2 [Moles/Vol] 20 mmol/L Low 22-30 [facility] Comment on above: Order Comment: Speci men Type: BLOOD SPECIMENOrdering Facility: [facility] Address: [address] [place] [address] Performed By: #### 2 4321-2, 1988-01, , 2776-09 ####[facility] [id number] [address] [address] [place] Creatinine [Mass/Vol] 0.64 mg/dL Normal 0.58-0.96 [facility] Comment on above: Order Comment: Speci men Type: BLOOD SPECIMENOrdering Facility: [facility] Address: [address] [place] [id number] Performed By: #### 2 4321-2, 1988-01, , 2776-09 ####[facility] [id number] [address] [address] [place] Creatinine and Glomerular filtration rate.predicted panel (S/P/Bld) 117 mL/min/1.73m??? Normal >=60 [facility] Comment on above: Order Comment: Carolinai men Type: BLOOD SPECIMENOrdering Facility: [facility] Address: [address] [place] [address] Result Comment: Bhavya mated Glomerular Filtration Rate [...] reflect actual GFR. Performed By: #### 2 4321-2, 1988-01, , 2776-09 ####[facility]CLIA [id number] [address] [address] [place] Glucose [Mass/Vol] 99 mg/dL Normal 74-99 [facility] Comment on above: Order Comment: Evaristo griffin Type: BLOOD SPECIMENOrdering Facility: [facility] Address: [address] [id number] Result Comment: The [place] [employer] Association (ADA) provides guidance for cutoff [...] Standards of Medical Care in Diabetes 2016, [place] [employer]. Diabetes Care. 2016.39(Suppl 1). Performed By: #### 2 4320-10, 1988-01, , 2776-09 ####[facility]IA [id number] [address] [address] [place] Potassium [Moles/Vol] 4.0 mmol/L Normal 3.7-5.1 [facility] Comment on above: Order Comment: Speci men Type: BLOOD SPECIMENOrdering Facility: [facility] Address: [address] [place] [address] Performed By: #### 2 4320-10, 1988-01, , 2776-09 ####[facility]IA [id number] [place] [id number] [place] Sodium [Moles/Vol] 139 mmol/L Normal 136-144 [facility] Comment on above: Order Comment: Speci men Type: BLOOD SPECIMENOrdering Facility: [facility] Address: [address] [place] [address] Performed By: #### 2 4320-10, 1988-01, , 2776-09 ####[facility]IA [id number] [place] [id number] [place] Urea nitrogen [Mass/Vol] 8 mg/dL Normal 7-21 [facility] Comment on above: Order Comment: Speci men Type: BLOOD SPECIMENOrdering Facility: [facility] Address: [address] [place], [place] [address] Performed By: #### 2 4320-10, 1988-01, , 2776-09 ####[facility]IA [id number] [address] [address] [place] CBC W Auto Differential pane l (Bld)on 02-07-2025 Basophils (Bld) [#/Vol] 0.06 10*3/uL Normal <0.11 [facility] Comment on above: Order Comment: Speci men Type: URINE SPECIMEN Ordering Facility: [facility] Address: [address] [place] [address] Performed By: #### 2 4356-8 #### [facility] CLIA [id number] [address] [place] [address] [place] Basophils/100 WBC (Bld) 0.4 % Normal [facility] Comment on above: Order Comment: Speci men Type: URINE SPECIMEN Ordering Facility: [facility] Address: [address] [place] [address] Performed By: #### 2 4356-8 #### [facility] CLIA [id number] [address] [place] [address] [place] Differential cell count method Nom (Bld) Auto Normal [facility] Comment on above: Order Comment: Speci men Type: URINE SPECIMEN Ordering Facility: [facility] Address: [address] [place] [address] Performed By: #### 2 4356-8 #### [facility] CLIA [id number] [address] [place] [address] [place] Eosinophils (Bld) [#/Vol] 0.08 10*3/uL Normal <0.46 [facility] Comment on above: Order Comment: Speci men Type: URINE SPECIMEN Ordering Facility: [facility] Address: [address] [place] [address] Performed By: #### 2 4356-8 #### [facility] CLIA [id number] [address] [place] [address] [place] Eosinophils/100 WBC (Bld) 0.6 % Normal [facility] Comment on above: Order Comment: Speci men Type: URINE SPECIMEN Ordering Facility: [facility] Address: [address] [place] [address] Performed By: #### 2 4356-8 #### [facility] CLIA [id number] [address] [place] [address] [place] Erythrocyte distribution width (RBC) [Ratio] 15.7 % High 11.5-15.0 [facility] Comment on above: Order Comment: Speci men Type: URINE SPECIMEN Ordering Facility: [facility] Address: [address] [place] [address] Performed By: #### 2 4356-8 #### [facility] CLIA [id number] [address] [place] [address] [place] Hematocrit (Bld) [Volume fraction] 29.2 % Low 36.0-46.0 [facility] Comment on above: Order Comment: Speci men Type: URINE SPECIMEN Ordering Facility: [facility] Address: [address] [place] [address] Performed By: #### 2 4356-8 #### [facility] CLIA [id number] [address] [place] [address] [place] Hemoglobin (Bld) [Mass/Vol] 8.5 g/dL Low 11.5-15.5 [facility] Comment on above: Order Comment: Speci men Type: URINE SPECIMEN Ordering Facility: [facility] Address: [address] [place] [address] Performed By: #### 2 4356-8 #### [facility] CLIA [id number] [address] [place] [address] [place] Immature granulocytes (Bld) [#/Vol] 0.07 10*3/uL Normal <0.10 [facility] Comment on above: Order Comment: Speci men Type: URINE SPECIMEN Ordering Facility: [facility] Address: [address] [place] [address] Performed By: #### 2 4356-8 #### [facility] CLIA [id number] [address] [place] [address] [place] Immature granulocytes/100 WBC (Bld) 0.5 % Normal [facility] Comment on above: Order Comment: Speci men Type: URINE SPECIMEN Ordering Facility: [facility] Address: [address] [place] [address] Performed By: #### 2 4356-8 #### [facility] CLIA [id number] [address] [place] [address] [place] Lymphocytes (Bld) [#/Vol] 2.13 10*3/uL Normal 1.00-4.00 [facility] Comment on above: Order Comment: Speci men Type: URINE SPECIMEN Ordering Facility: [facility] Address: [address] [place] [address] Performed By: #### 2 4356-8 #### [facility] CLIA [id number] [address] [place] [address] [place] Lymphocytes/100 WBC (Bld) 15.7 % Normal [facility] Comment on above: Order Comment: Speci men Type: URINE SPECIMEN Ordering Facility: [facility] Address: [address] [place] [address] Performed By: #### 2 4356-8 #### [facility] CLIA [id number] [address] [place] [address] [place] MCH (RBC) [Entitic mass] 21.3 pg Low 26.0-34.0 [facility] Comment on above: Order Comment: Speci men Type: URINE SPECIMEN Ordering Facility: [facility] Address: [address] [place] [address] Performed By: #### 2 4356-8 #### [facility] CLIA [id number] [address] [place] [address] [place] MCHC (RBC) [Mass/Vol] 29.1 g/dL Low 30.5-36.0 [facility] Comment on above: Order Comment: Speci men Type: URINE SPECIMEN Ordering Facility: [facility] Address: [address] [place] [address] Performed By: #### 2 4356-8 #### [facility] CLIA [id number] [address] [place] [address] [place] MCV (RBC) [Entitic vol] 73.2 fL Low 80.0-100.0 [facility] Comment on above: Order Comment: Speci men Type: URINE SPECIMEN Ordering Facility: [facility] Address: [address] [place] [address] Performed By: #### 2 4356-8 #### [facility] CLIA [id number] [address] [place] [address] [place] Monocytes (Bld) [#/Vol] 1.05 10*3/uL High <0.87 [facility] Comment on above: Order Comment: Speci men Type: URINE SPECIMEN Ordering Facility: [facility] Address: [address] [place] [address] Performed By: #### 2 4356-8 #### [facility] CLIA [id number] [address] [place] [address] [place] Monocytes/100 WBC (Bld) 7.7 % Normal [facility] Comment on above: Order Comment: Speci men Type: URINE SPECIMEN Ordering Facility: [facility] Address: [address] [place] [address] Performed By: #### 2 4356-8 #### [facility] CLIA [id number] [address] [place] [address] [place] Neutrophils (Bld) [#/Vol] 10.16 10*3/uL High 1.45-7.50 [facility] Comment on above: Order Comment: Speci men Type: URINE SPECIMEN Ordering Facility: [facility] Address: [address] [place] [address] Performed By: #### 2 4356-8 #### [facility] CLIA [id number] [address] [place] [address] [place] Neutrophils/100 WBC (Bld) 75.1 % Normal [facility] Comment on above: Order Comment: Speci men Type: URINE SPECIMEN Ordering Facility: [facility] Address: [address] [place] [address] Performed By: #### 2 4356-8 #### [facility] CLIA [id number] [address] [place] [address] [place] Nucleated RBC (Bld) [#/Vol] 10*3/uL Normal <0.01 [facility] Comment on above: Order Comment: Speci men Type: URINE SPECIMEN Ordering Facility: [facility] Address: [address] [place] [address] Performed By: #### 2 4356-8 #### [facility] CLIA [id number] [address] [place] [address] [place] Nucleated RBC/100 WBC (Bld) [Ratio] 0.0 /100 WBC Normal [facility] Comment on above: Order Comment: Speci men Type: URINE SPECIMEN Ordering Facility: [facility] Address: [address] [place] [address] Performed By: #### 2 4356-8 #### [facility] CLIA [id number] [address] [place] [address] [place] Platelet mean volume (Bld) [Entitic vol] 9.0 fL Normal 9.0-12.7 [facility] Comment on above: Order Comment: Speci men Type: URINE SPECIMEN Ordering Facility: [facility] Address: [address] [place] [address] Performed By: #### 2 4356-8 #### [facility] CLIA [id number] [address] [place] [address] [place] Platelets (Bld) [#/Vol] 261 10*3/uL Normal 150-400 [facility] Comment on above: Order Comment: Speci men Type: URINE SPECIMEN Ordering Facility: [facility] Address: [address] [place] [address] Performed By: #### 2 4356-8 #### [facility] CLIA [id number] [address] [place] [address] [place] RBC (Bld) [#/Vol] 3.99 10*6/uL Normal 3.90-5.20 [facility] Comment on above: Order Comment: Speci men Type: URINE SPECIMEN Ordering Facility: [facility] Address: [address] [place] [address] Performed By: #### 2 4356-8 #### [facility] CLIA [id number] [address] [place] [address] [place] WBC (Bld) [#/Vol] 13.55 10*3/uL High 3.70-11.00 [facility] Comment on above: Order Comment: Speci men Type: URINE SPECIMEN Ordering Facility: [facility] Address: [address] [place] [address] Performed By: #### 2 4356-8 #### [facility] CLIA [id number] [address] [place] [address] [place] CRP SerPl-mCncon 02-07-2025 CRP [Mass/Vol] 1.8 mg/dL High <0.9 [facility] Comment on above: Order Comment: Speci men Type: BLOOD SPECIMENOrdering Facility: [facility] Address: [address] [place] [address] Performed By: #### 2 4321-2, 1987-, 57986-3, 277-1 ####[facility] [id number] [place] [address] [place] Magnesium SerPl-mCncon 02-07 Magnesium [Mass/Vol] 2.4 mg/dL High 1.7-2.3 [facility] Comment on above: Order Comment: Speci men Type: BLOOD SPECIMENOrdering Facility: [facility] Address: [address] [place] [address] Performed By: #### 2 432-2, 1988-01, , 2776-09 ####[facility] [id number] [place] [id number] [facility] PT EDon 02-07-2025 PT ED HNO ID: [id number] Author: EVON DAILEY DTR Service: Nutrition Therapy Author Type: Vp Sales Type: Patient Education Filed: 02/07/2025 06:37 Note Text: NUTRITION THERAPY PATIENT EDUCATION SERVICE DATE: 02/07/2025 SERVICE TIME: 636 TOPIC: Exemption from nutrition education: Patient not ready to learn at this time due to Procedure Performed: Diet education is not warranted at this time. Please contact Nutrition Therapy if there are any changes in nutrition status. MNT Billing: $ Routine Care : 1 unit SIGNATURE: Evon Dailey DTR PATIENT NAME: Omar Gomez DATE: February 07, 2025 TIME: 6:36 AM PAGER: Normal [facility] Phosphate SerPl-mCncon 02-07 Phosphate [Mass/Vol] 3.1 mg/dL Normal 2.7-4.8 [facility] Comment on above: Order Comment: Speci men Type: BLOOD SPECIMENOrdering Facility: [facility] Address: [address] [place] [address] Performed By: #### 2 432-2, 1988-01, , 2776-09 ####[facility] [id number] [place] [id number] [facility] ANES POSTPROC EVALon 025 ANES POSTPROC EVAL HNO ID: [id number] Author: MIESHA NOLAN MD, PhD Service: ? Author Type: Physician Type: Anesthesia Postprocedure Evaluation Filed: 02/06/2025 17:18 Note Text: POST ANESTHESIA EVALUATION NOTE : 1985 Procedure Summary Date: 02/06/25 Room / Location: [address] [facility] Anesthesia Start: 1039 Anesthesia Stop: 1655 Procedure: ROBOTIC LAPAROSCOPIC HERNIA REPAIR VENTRAL INITIAL REDUCIBLE W/MESH GREATER THAN 10cm (Abdomen) Diagnosis: Preoperative examination Recurrent incisional hernia (Preoperative examination [Z01.818]) (Recurrent incisional hernia [K43.2]) Surgeons: Jaswant Askew MD Responsible Provider: Miesha Nolan MD, PhD Anesthesia Type: general ASA Status: 3 Anesthesia Type: general Airway Type: ETT Last Vitals Vitals Value Taken Time BP 149/94 02/06/25 1715 Temp 36.9 ?C (98.4 ?F) 02/06/25 1653 Pulse 95 02/06/25 1717 Resp 17 02/06/25 1717 SpO2 96 % 02/06/251716 Vitals shown include unfiled device data. Post Anesthesia Patient Status Patient Evaluation: PACU. PACU/ICU Patient Condition: stable. Anticipated Disposition: inpatient floor planned admission. Neurological Status: aware and responsive. Pulmonary Status: breathing comfortably on supplemental oxygen Airway Control: returned to baseline unsupported. Cardiovascular Status: stable. Pain Management: clinically adequate - multimodal analgesia pain management approach Postoperative Hydration: acceptable. Intraoperative Events: no significant anesthesia events Post Operative Nausea/Vomiting Status: no significant post operative nausea or vomiting Recommendation: continue current plan of care. Anesthesia Observations No Documentation SIGNATURE: Miesha Nolan MD, PhD PATIENT NAME: Omar Gomez DATE: February 06, 2025 TIME: 5:18 PM CSN: [id number] Normal [facility] ANES PRE-OPon 02-06-2025 ANES PRE-OP HNO ID: [id number] Author: MIESHA NOLAN MD, PhD Service: ? Author Type: Physician Type: Anesthesia Preprocedure Evaluation Filed: 02/06/2025 09:46 Note Text: ANESTHESIOLOGY DAY OF SURGERY NOTE : 1985 Procedure Information Date/Time: 02/06/25 1045 Procedure: ROBOTIC LAPAROSCOPIC HERNIA REPAIR VENTRAL INITIAL REDUCIBLE W/MESH GREATER THAN 10cm (Abdomen) Location: MAIN OR / [facility] Surgeons: Jaswant Askew MD Estimated body mass index is 40.67 kg/m? as calculated from the following: Height as of 01/22/25: 167.6 cm (5' 6). Weight as of 01/22/25: 114.3 kg (251 lb 15.8 oz). Most recent hematocrit and potassium results: Hematocrit 32.5 01/22/2025 Potassium 4.5 01/22/2025 Relevant Problems ANESTHESIA (+) PONV (postoperative nausea and vomiting) (-) Difficult intubation (-) History of anesthesia complications CARDIO (+) Disorder of intracranial venous sinus (+) Hypertension (+) Migraine with aura and without status migrainosus, not intractable GI (+) GERD (gastroesophageal reflux disease) -RENAL (-) Liver disease (-) Renal disease NEURO-PSYCH (+) Migraine with aura and without status migrainosus, not intractable PULMONARY (-) Recent URI Cardiovascular (+) Palpitations Gastrointestinal (+) Incisional hernia of anterior abdominal wall without obstruction or gangrene Other (+) Obesity, Class III, BMI >= 40 I - PHYSICAL EVALUATION AIRWAY Patient intubated: No. Tracheostomy tube not present Mallampati: III. TM distance: >3 FB. Neck ROM: full ROM without neurological symptoms. Mouth opening: adequate. Short neck: no. Thick neck: no DENTAL Dental findings: teeth intact. Additional exam findings: yes. CARDIOVASCULAR Rhythm: regular Rate: normal Murmur not present. PULMONARY Breath sounds clear to auscultation. Other findings: Anisocoria, left pupil ~7 mm since 2012, patient unsure of cause.. II - ANESTHESIA PLAN ASA Score: 3 Anesthetic Plan: general Airway type: ETT The patient is not a current smoker. (Secondhand) NPO Status: adequate Beta Son Monitoring Plan Monitoring plan: standard ASA. Post Procedure Analgesic Plan Postoperative analgesic plan: multimodal analgesia. Informed Consent Anesthetic risks, benefits, alternatives, personnel and consent discussed: yes. Patient / Responsible Alliance Party agrees to proceed: yes Patient / Surrogate agrees to blood products: Yes Vitals Value Taken Time BP 161/89 02/06/25 0915 Pulse 96 02/06/25 0915 Resp 16 02/06/25 0915 Temp 36.6 ?C (97.9 ?F) 02/06/25 0915 SpO2 96 % 02/06/25 0915 Facility-Administered Medications as of 02/06/2025 Medication Dose Route Frequency lidocaine (PF) 10 mg/mL (1 %) 1-2 mg injection (XYLOCAINE) 0.1-0.2 mL INTRADERMAL PRN Or lidocaine 1% 0.25 mL subcutaneous j-tip syringe (XYLOCAINE) 0.25 mL SUBCUTANEOUS PRN lactated ringers iv infusion 5-30 mL/hr INTRAVENOUS CONTINUOUS NaCl 0.9% iv flush bag 20 mL INTRAVENOUS PRN [COMPLETED] heparin 5,000 Units injection 5,000 Units SUBCUTANEOUS ONCE ceFAZolin 2 g in dextrose (iso-osmotic) 50 mL (ANCEF,KEFZOL) 2 g INTRAVENOUS Pre-Op Once Outpatient Medications as of 02/06/2025 Medication Sig AMOXICILLIN ORAL Take by mouth. LORazepam (ATIVAN) 1 mg tablet Take 1 mg by mouth as needed for anxiety. venlafaxine ER (EFFEXOR XR) 75 mg 24 hr capsule Take 1 capsule by mouth every afternoon. aspirin 325 mg tablet Take 1 tablet by mouth once daily. Patient should start on October 22, 2024. metFORMIN ER (GLUCOPHAGE XR) 500 mg 24 hr tablet Take 1 tablet by mouth daily with lunch for 7 days, THEN 1 tablet two times a day with meals. acetaminophen (TYLENOL) 500 mg tablet Take 2 tablets by mouth every 6 hours as needed for pain. I have interviewed and examined the patient. I have reviewed the medical record and/or the pre-anesthesia evaluation, pertinent labs, and test results. This contains updated information obtained within 48 hours of Surgery/Procedure. SIGNATURE: Miesha Nolan MD, PhD PATIENT NAME: Omar Gomez DATE: February 06, 2025 TIME: 9:40 AM CSN: [id number] Normal [facility] NURSING PROGon 02-06-2025 NURSING PROG HNO ID: [id number] Author: GHAZALA CASTAÑEDA RN Service: Nursing Author Type: Registered Nurse Type: Nursing Progress Note Filed: 02/06/2025 19:51 Note Text: Transfer Note: PATIENT NAME: Omar Gomez Patient Location: [place] [address]/H071 Room: 71-21 Patient transferred into room/unit H71-21 in stable condition. Patient is drowsy but easily arousable. at bedside and will stay overnight. Actions taken: Vital signs taken. Incentive spirometer provided. Patient is able to use it properly. Bed in lowest position. Call light in reach. Bed alarm engaged. Will continue to monitor and check with patient. Patient belongings with patient. Normal [facility] NURSING PROG HNO ID: [id number] Author: BRIAN SUN, Research Coordinator Service: ? Author Type: Research Type: Nursing Progress Note Filed: 02/06/2025 09:25 Note Text: Summary: TRIAL PATIENT Please do not discuss surgical approach (open or robotic) with patient Patient consented for study? Yes STUDY TITLE: Robotic versus Open Ventral Hernia Repair (ROVHR) Trial IRB NO.: # [id number] CONCRETE MIXER OPERATOR HELPER: Julien Avelar MD LIVESTOCK HANDLER: Brian Sun MD CONTACT: [email or web address] Re-consenting was performed by the patient case coordinator, in a [id number] manner, during preoperative evaluation. Discussed above research protocol with the patient. The risks, benefits, alternatives, and costs were discussed. The study requirements and follow up procedures were reviewed and the importance of follow up compliance was stressed. All patient questions were addressed and answered. Patient has read and understood the study procedures and requirements. Patient has agreed to continue to proceed with trial participation. INCLUSION CRITERIA Yes No 1. The patient is > 18 years of age [x] [] 2. Midline ventral hernia defects ranging from 7 cm to 15 cm in greatest width as measured by pre-operative CT scan [x] [] 3. Body mass index (BMI) less than or equal to 45 [x] [] 4. Patient deemed either a robotic or an open candidate by the operating surgeon [x] [] EXCLUSION CRITERIA Yes No 1. Age 17 or younger [] [x] 2. Prisoners [] [x] 3. patients [] [x] 4. Emergent cases [] [x] 5. BMI greater than 45 [] [x] 6. Hernia defects less than 7 cm or greater than 15 cm in width as measured by pre-operative CT scan [] [x] tr Normal [facility] OPERATIVE NOon 02-06-2025 OPERATIVE NO HNO ID: [id number] Author: JASWANT ASKEW MD Service: General Surgery Author Type: Physician Type: Operative Report Filed: 02/06/2025 16:32 Note Text: OPERATIVE REPORT Name: Omar Gomez : 1985 MR#: [id number] Date of Service: 02/06/2025 Start time: 111 Stop time: 1614 Preoperative Diagnosis: Symptomatic recurrent incarcerated incisional hernia Postoperative Diagnosis: Symptomatic recurrent incarcerated incisional hernia Procedure Performed: 1. Left myofascial advancement flap 2. Right myofascial advancement flap 3. Robotic incisional hernia repair with mesh 4. Excision of prior abdominal wall mesh Surgeon: Jaswant Askew MD Handle Bender: Padilla Tuttle MD Anesthesia: General EBL: 10 mL Implanted device: Ethicon Prolene mesh Indication: Omar Gomez is a 39 year old female with a symptomatic incarcerated incisional hernia. She had undergone a prior IPOM repair. Robotic incisional hernia repair was offered. We discussed the risks of the procedure, including bleeding, infection, hernia recurrence, mesh problems, stroke, heart attack, blood clots. The patient agreed to proceed with the operation. She was enrolled in the ROVHR trial. Findings: Hernia measurements: 7 cm wide by 8 cm long Omental intra-abdominal adhesions Operative Technique: The patient was identified in the holding area and informed consent was obtained. The patient was brought to the operating room and placed supine on the operating table. Pressure points were padded. General anesthesia was induced and an endotracheal tube was placed. Intravenous antibiotics were administered and sequential compression devices were placed on the lower extremities. The patient was prepped and draped in a sterile fashion. A final timeout was performed. An 8 mm left subcostal incision was made and a 5mm optical viewing trocar placed into the peritoneal cavity without difficulty. The abdomen was insufflated to 15mm Hg, which was well tolerated. An 8 mm trocar was placed in the mid-axillary line midway between the right costal margin and iliac crest. An 8 mm robotic trocar was placed just off the iliac crest and the subcostal trocar exchanged for an 8 mm robotic trocar. The robotic cart was brought in from the patient's left and docked perpendicular to bed. Sharp adhesiolysis with judicious use of cautery was used to free adhesions to the abdominal wall and reduce all hernias. She had a prior IPOM mesh that was folded up on itself. The mesh was excised from the abdominal wall and cut into pieces to facilitate removal from a 12 mm port. Retromuscular dissection was begun on the right side by incising the posterior rectus sheath just lateral to the linea alba. The posterior rectus sheath was from the overlying rectus muscle along the entire length of the hernia defect, then extended to the diaphragm superiorly and the space of Retzius inferiorly. Laterally, dissection was extended to the semilunar line, and the segmental neurovascular bundles were preserved. After completion of the rectus myofascial release, I determined there was inadequate mobilization for midline closure and mesh overlap, and proceeded with a transversus abdominis myofascial advancement flap. Beginning on the right side, the posterior lamella of the internal oblique and transversus abdominis muscle were divided to enter the preperitoneal space. This was extended along the entire length of our dissected retromuscular space. The preperitoneal space was dissected laterally to the level of midaxillary line. We then placed three mirror-image trocars into the right lateral abdomen. The hernia defect was then measured intracorporeally to be 7 cm wide and 8 cm long. The dissected space was measured to be 30 cm long and 26 cm wide. A 30 x 30 cm Prolene mesh was cut to these dimensions, and rolled along the vertical axis. The mesh was passed into the preperitoneal space and affixed to the left lateral abdominal wall using 2-0 Vicryl sutures. The robot was then undocked and the boom was rotated 180 degrees in order to dock to the contralateral ports to complete the hernia repair. The posterior rectus sheath on the contralateral side was similarly incised just lateral to the linea alba. Dissection was again carried out to release the posterior rectus sheath from the rectus muscle along the entire length of the hernia defect and extended to the diaphragm superiorly and the space of Retzius inferiorly. This was carried out laterally to the semilunar line. The midline preperitoneal space above and below the defect was dissected away from the intact linea alba to merge the preperitoneal dissections. A transversus abdominis release was then performed on the contralateral side and the preperitoneal space entered. The preperitoneal dissection was dissected laterally to the level of the midaxillary line, bringing all three of (more content not included)... Normal [facility] Emergency Department Summary on 02-02-2025 Emergency Department Summary [facility] Medical Records Department [address] [place] [address] Emergency Department Summary 02/02/25 MR#: [id number] Acct: [id number] Name: OMAR GOMEZ Rep #: [id number] : 1985 39 From: Pranav Biggs DO PCP: Care Physician,No Primary Status:DEP ER Location: ED HPI History of Present Illness Chief Complaint: Dental Informant: patient Onset/Context/Timing Onset: Weeks (1) Context: Gradual Onset Timing: Continuous Quality: Sharp Location: Left lower third molar Worsened by: Chewing, drinking Relieved by: - (Nothing) Associated Symptoms Assocated Symptom - Dental: jaw swelling; Negative for fever, face swelling, cold sensitivity or hot sensitivity Narrative Narrative: Patient presents with left lower dental pain that has been getting worse over the past week. Patient states it is gradually getting worse. Patient describes her pain as sharp. Patient states it is worse with chewing and with drinking. Patient admits to some swelling around her left lower third molar. Patient denies any facial swelling. Patient denies any fevers or chills. Patient does admit to a sore throat and pain with swallowing. Patient denies any hot or cold sensitivity. [facility] Medical History (Updated 02/02/25 @ 18:[address] Pranav Biggs, ) Left ureteral calculus Bruising Easy bruising History of IBS Heartburn Shortness of breath on exertion Non-smoker History of echocardiogram Cardiology follow-up encounter Generalized anxiety disorder PTSD (post-traumatic stress disorder) Major depressive disorder, recurrent severe without psychotic features Migraines Kidney stones Ovarian cyst Home Medications ???Medication ???Instructions ???Recorded ???Last Taken ???Type acetazolamide 500 mg 500 mg PO BID PSEUDOTUMOR 06/23/21 Unknown History capsule,extended release phenazopyridine 200 mg tablet 200 mg PO TID 6 doses #6 tabs 06/10 04/01 Unknown Rx (Pyridium) naproxen 500 mg tablet 500 mg PO BID PRN #14 tabs 4 Unknown Rx aripiprazole 2 mg tablet 2 mg PO QHS 07/02/24 Unknown Histo ry ondansetron 4 mg disintegrating 4 mg PO Q8H PRN PRN Nausea #10 tab s 07/02/24 Unknown Rx tablet ondansetron 4 mg disintegrating 4 mg PO Q8H PRN PRN Nausea #10 tab s 08/14/24 Unknown Rx tablet amoxicillin 500 mg tablet 500 mg PO TID #30 tabs 02/02/25 Un known Rx Allergy/AdvReac Type Severity Reaction Status Date / Time adhesive tape AdvReac Other Verified 02/02/25 17:21 Surgical History (Updated 02/02/25 @ 18:[address] Pranav Biggs DO) S/P PMP PROJECT MANAGER shunt Hx of cystoscopy History of urethral stent Hx of dilation and curettage Hx of tympanostomy tubes History of section History of umbilical hernia repair History of cholecystectomy Social History household members: spouse Smoking Status: Never smoker ROS ROS ED Constitutional Constitutional ED: Denies chills or fever(s) Eyes Eyes: Denies blurry vision or change in vision ENT ENT ED: Reports ear pain left and sore throat; Denies rhinorrhea Cardiovascular Cardiovascular: Denies chest pain or palpitations Respiratory/Chest Respiratory/Chest: Denies cough or dyspnea Gastrointestinal Gastrointestinal: Denies nausea or vomiting Genitourinary Genitourinary ED: Denies dysuria or hematuria Musculoskeletal Musculoskeletal: Denies back pain or neck pain Integumentary Denies abscess or rash Neurologic Neurologic: Reports headache(s); Denies weakness Allergic/Immunologic Allergic/Immunologic ED: Denies mouth swelling or urticaria EXAM Physical Exam Const Vital Signs: 02/02/25 17:21 Temperature 98 F Temperature Source Temporal Pulse Rate 80 Respiratory Rate 20 H Blood Pressure 176/99 H Blood Pressure Mean 124 Pulse Ox 99 Oxygen Delivery Method Room Air Positive well nourished and well developed General Appearance ED: well developed and NAD HEENT HEENT Narrative: There is tenderness to percussion over the left lower third molar. There are some mild central edema around this tooth. There is no fluctuance. There is no evidence of any abscess. Oropharynx is mildly erythematous. There are no exudates noted. Neck is supple. Trachea is midline. There is no JVD. There is no anterior neck swelling. There is no sublingual edema. There is no evidence of Bg's angina. Mouth ED: Yes lips normal and Yes tongue normal Mouth: lips normal and tongue normal Teeth and Gingiva: gingiva abnormal Positive for gingival edema Neck supple General: Negative for anterior neck swelling, tenderness or submandibular swelling Neuro oriented x3, CN's II-XII intact bilaterally, moves all extremities, no focal motor deficits and no sensory deficits note (more content not included)... Normal [facility] CBC W Auto Differential pane l (Bld)on 01-22-2025 Basophils (Bld) [#/Vol] 0.06 10*3/uL Normal <0.11 [facility] Comment on above: Order Comment: Evaristo griffin Type: BLOOD SPECIMEN Ordering Facility: [facility] Address: [address] [place] [address] Performed By: #### 5 7021-8 #### [facility] CLIA [id number] [address] [place] [address] [place] Basophils/100 WBC (Bld) 0.7 % Normal [facility] Comment on above: Order Comment: Evaristo griffin Type: BLOOD SPECIMEN Ordering Facility: [facility] Address: [address] [place] [address] Performed By: #### 5 7021-8 #### [facility] CLIA [id number] [address] [place] [address] [place] Differential cell count method Nom (Bld) Auto Normal [facility] Comment on above: Order Comment: Evaristo griffin Type: BLOOD SPECIMEN Ordering Facility: [facility] Address: [address] [place] [address] Performed By: #### 5 7021-8 #### [facility] CLIA [id number] [address] [place] [address] [place] Eosinophils (Bld) [#/Vol] 0.14 10*3/uL Normal <0.46 [facility] Comment on above: Order Comment: Speci men Type: BLOOD SPECIMEN Ordering Facility: [facility] Address: [address] [place] [address] Performed By: #### 5 7021-8 #### [facility] CLIA [id number] [address] [place] [address] [place] Eosinophils/100 WBC (Bld) 1.6 % Normal [facility] Comment on above: Order Comment: Speci men Type: BLOOD SPECIMEN Ordering Facility: [facility] Address: [address] [place] [address] Performed By: #### 5 7021-8 #### [facility] CLIA [id number] [address] [place] [address] [place] Erythrocyte distribution width (RBC) [Ratio] 16.4 % High 11.5-15.0 [facility] Comment on above: Order Comment: Speci men Type: BLOOD SPECIMEN Ordering Facility: [facility] Address: [address] [place] [address] Performed By: #### 5 7021-8 #### [facility] CLIA [id number] [address] [place] [address] [place] Hematocrit (Bld) [Volume fraction] 32.5 % Low 36.0-46.0 [facility] Comment on above: Order Comment: Speci men Type: BLOOD SPECIMEN Ordering Facility: [facility] Address: [address] [place] [address] Performed By: #### 5 7021-8 #### [facility] CLIA [id number] [address] [place] [address] [place] Hemoglobin (Bld) [Mass/Vol] 9.9 g/dL Low 11.5-15.5 [facility] Comment on above: Order Comment: Speci men Type: BLOOD SPECIMEN Ordering Facility: [facility] Address: [address] [place] [address] Performed By: #### 5 7021-8 #### [facility] CLIA [id number] [address] [place] [address] [place] Immature granulocytes (Bld) [#/Vol] 0.03 10*3/uL Normal <0.10 [facility] Comment on above: Order Comment: Speci men Type: BLOOD SPECIMEN Ordering Facility: [facility] Address: [address] [place] [address] Performed By: #### 5 7021-8 #### [facility] CLIA [id number] [address] [place] [address] [place] Immature granulocytes/100 WBC (Bld) 0.3 % Normal [facility] Comment on above: Order Comment: Speci men Type: BLOOD SPECIMEN Ordering Facility: [facility] Address: [address] [place] [address] Performed By: #### 5 7021-8 #### [facility] CLIA [id number] [address] [place] [address] [place] Lymphocytes (Bld) [#/Vol] 2.40 10*3/uL Normal 1.00-4.00 [facility] Comment on above: Order Comment: Speci men Type: BLOOD SPECIMEN Ordering Facility: [facility] Address: [address] [place] [address] Performed By: #### 5 7021-8 #### [facility] CLIA [id number] [address] [place] [address] [place] Lymphocytes/100 WBC (Bld) 27.6 % Normal [facility] Comment on above: Order Comment: Speci men Type: BLOOD SPECIMEN Ordering Facility: [facility] Address: [address] [place] [address] Performed By: #### 5 7021-8 #### [facility] CLIA [id number] [address] [place] [address] [place] MCH (RBC) [Entitic mass] 21.5 pg Low 26.0-34.0 [facility] Comment on above: Order Comment: Speci men Type: BLOOD SPECIMEN Ordering Facility: [facility] Address: [address] [place] [address] Performed By: #### 5 7021-8 #### [facility] CLIA [id number] [address] [place] [address] [place] MCHC (RBC) [Mass/Vol] 30.5 g/dL Normal 30.5-36.0 [facility] Comment on above: Order Comment: Speci men Type: BLOOD SPECIMEN Ordering Facility: [facility] Address: [address] [place] [address] Performed By: #### 5 7021-8 #### [facility] CLIA [id number] [address] [place] [address] [place] MCV (RBC) [Entitic vol] 70.5 fL Low 80.0-100.0 [facility] Comment on above: Order Comment: Speci men Type: BLOOD SPECIMEN Ordering Facility: [facility] Address: [address] [place] [address] Performed By: #### 5 7021-8 #### [facility] CLIA [id number] [address] [place] [address] [place] Monocytes (Bld) [#/Vol] 0.68 10*3/uL Normal <0.87 [facility] Comment on above: Order Comment: Speci men Type: BLOOD SPECIMEN Ordering Facility: [facility] Address: [address] [place] [address] Performed By: #### 5 7021-8 #### [facility] CLIA [id number] [address] [place] [address] [place] Monocytes/100 WBC (Bld) 7.8 % Normal [facility] Comment on above: Order Comment: Speci men Type: BLOOD SPECIMEN Ordering Facility: [facility] Address: [address] [place] [address] Performed By: #### 5 7021-8 #### [facility] CLIA [id number] [address] [place] [address] [place] Neutrophils (Bld) [#/Vol] 5.40 10*3/uL Normal 1.45-7.50 [facility] Comment on above: Order Comment: Speci men Type: BLOOD SPECIMEN Ordering Facility: [facility] Address: [address] [place] [address] Performed By: #### 5 7021-8 #### [facility] CLIA [id number] [address] [place] [address] [place] Neutrophils/100 WBC (Bld) 62.0 % Normal [facility] Comment on above: Order Comment: Speci men Type: BLOOD SPECIMEN Ordering Facility: [facility] Address: [address] [place] [address] Performed By: #### 5 7021-8 #### [facility] CLIA [id number] [address] [place] [address] [place] Nucleated RBC (Bld) [#/Vol] 10*3/uL Normal <0.01 [facility] Comment on above: Order Comment: Speci men Type: BLOOD SPECIMEN Ordering Facility: [facility] Address: [address] [place] [address] Performed By: #### 5 7021-8 #### [facility] CLIA [id number] [address] [place] [address] [place] Nucleated RBC/100 WBC (Bld) [Ratio] 0.0 /100 WBC Normal [facility] Comment on above: Order Comment: Speci men Type: BLOOD SPECIMEN Ordering Facility: [facility] Address: [address] [place] [address] Performed By: #### 5 7021-8 #### [facility] CLIA [id number] [address] [place] [address] [place] Platelet mean volume (Bld) [Entitic vol] 9.1 fL Normal 9.0-12.7 [facility] Comment on above: Order Comment: Speci men Type: BLOOD SPECIMEN Ordering Facility: [facility] Address: [address] [place] [address] Performed By: #### 5 7021-8 #### [facility] CLIA [id number] [address] [place] [address] [place] Platelets (Bld) [#/Vol] 353 10*3/uL Normal 150-400 [facility] Comment on above: Order Comment: Speci men Type: BLOOD SPECIMEN Ordering Facility: [facility] Address: [address] [place] [address] Performed By: #### 5 7021-8 #### [facility] CLIA [id number] [address] [place] [address] [place] RBC (Bld) [#/Vol] 4.61 10*6/uL Normal 3.90-5.20 [facility] Comment on above: Order Comment: Speci men Type: BLOOD SPECIMEN Ordering Facility: [facility] Address: [address] [place] [address] Performed By: #### 5 7021-8 #### [facility] CLIA [id number] [address] [place] [address] [place] WBC (Bld) [#/Vol] 8.71 10*3/uL Normal 3.70-11.00 [facility] Comment on above: Order Comment: Speci men Type: BLOOD SPECIMEN Ordering Facility: [facility] Address: [address] [place] [address] Performed By: #### 5 7021-8 #### [facility] CLIA [id number] [address] [place] [address] [place] CNOVon 01-22-2025 CNOV Office Visit ([place] ) OMAR GOMEZ ([id number]) 1985 F Date Time Provider Department 01/22/25 4:00 PM DE GILL During your visit today, we recorded the following information about you: De Gill, PhD 01/22/2025 4:41 PM Signed [facility] [place] Name: Omar Gomez MR#: [id number] Date: 01/22/2025 Time: ? hour Referred by: Dr. Askew Reason for Referral: address psychological factors as they can affect post-operative recovery. Information relayed back to referral source via electronic medical record Her chart was reviewed and she gave her own history. She was seen with her . She says that she used to be active but is now struggling with depression and anxiety and limits her activity. She is in therapy and has been for about 1 year this time and is about to start EMDR. She is also on Effexor but does not take it regularly. We discussed the importance of restarting it and taking it as prescribed. She has a prescription for Ativan but does not use it regularly and has not had any for 1 week. We discussed ways to minimize taking it. She is not on Ambien. She has had numerous surgeries and has had to go to the hospital and number of times for pain. She has had experiences where her pain is dismissed, or minimized, or questioned and she says she has been accused of being a drug addict despite the fact that she denied any of the diagnostic criteria. The basic underlying psychological and physiological mechanisms behind the brain body connection were explained. She was introduced to the concepts and techniques that she can employ to help with pain and healing after surgery. She was given the link to the Behavioral Medicine Program website, instructed on the use of the relaxation recordings, and told of the informational content. She was given the opportunity to ask questions and informed that she could be seen again. De Marshall, Ph.D. Referring Provider: OMAR FERREIRA [[id number]] Allergies As of Date: 01/22/2025 Noted Allergy Reaction TAPE (ADHESIVE TAPE (ROSINS)) 07/18/2013 2 - Rash Comments: EKG tape pleitez skin- other tape gives patient rashes Date Reviewed: 01/22/2025 Reviewed by: Astrid Vuong APRN.ARCHIVAL STUDIES PROFESSOR - Fully Assessed Primary Visit Diagnosis:Abdominal pain, unspecified abdominal location [R10.9] Other Visit Diagnosis:Recurrent incisional hernia [K43.2] Prescriptions as of 01/22/2025 - aspirin 81 mg chewable tablet Take 1 tablet by mouth once daily for 6 days. Stop 01/26/25 - aspirin 325 mg tablet Take 1 tablet by mouth once daily. Patient should start on October 22, 2024. - acetaZOLAMIDE SR (DIAMOX SEQUELS) 500 mg capsule Take 1 capsule by mouth every evening. - metFORMIN ER (GLUCOPHAGE XR) 500 mg 24 hr tablet Take 1 tablet by mouth daily with lunch for 7 days, THEN 1 tablet two times a day with meals. - acetaminophen (TYLENOL) 500 mg tablet Take 2 tablets by mouth every 6 hours as needed for pain. - LORazepam (ATIVAN) 1 mg tablet Take 1 mg by mouth as needed for anxiety. - venlafaxine ER (EFFEXOR XR) 75 mg 24 hr capsule Take 1 capsule by mouth every afternoon. Problem List As Of Date 01/22/2025 Noted Resolved ABDOMINAL PAIN RLQ [R10.31] 08/16/2005 WELL-WOMAN CARE [Z01.419] 12/16/2007 Pain [R52] 07/18/2013 Hypertension [I10] 07/18/2013 Post depression [F53.0] 07/18/2013 07/25/2024 Pulmonary nodule [R91.1] 07/18/2013 Palpitations [R00.2] 08/22/2013 Major depressive disorder [F32.9] 11/25/2013 PTSD (post-traumatic stress disorder) [F43.10] 11/25/2013 Abdominal pain [R10.9] 07/25/2018 IIH (idiopathic intracranial hypertension) [G93*11/24/2020 Obesity due to excess calories without serious *11/24/2020 Migraine with aura and without status migrainos*02/27/2023 Idiopathic intracranial hypertension [G93.2] 04/26/2023 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] 06/21/2024 Difficult intravenous access [Z78.9] 07/25/2024 Encounter Status:Closed by DE GILL on 01/22/25 Normal [facility] metabolic 2000 panelon 01-22-2025 Albumin [Mass/Vol] 3.8 g/dL Low 3.9-4.9 [facility] Comment on above: Order Comment: Speci men Type: URINE SPECIMEN Ordering Facility: [facility] Address: [address] [place] [address] Performed By: #### 2 4356-8 #### [facility] CLIA [id number] [address] [place] [address] [place] ALP [Catalytic activity/Vol] 103 U/L Normal 34-123 [facility] Comment on above: Order Comment: Speci men Type: URINE SPECIMEN Ordering Facility: [facility] Address: [address] [place] [address] Performed By: #### 2 4356-8 #### [facility] CLIA [id number] [address] [place] [address] [place] ALT [Catalytic activity/Vol] 14 U/L Normal 7-38 [facility] Comment on above: Order Comment: Speci men Type: URINE SPECIMEN Ordering Facility: [facility] Address: [address] [place] [address] Performed By: #### 2 4356-8 #### [facility] CLIA [id number] [address] [place] [address] [place] Anion gap [Moles/Vol] 11 mmol/L Normal 8-15 [facility] Comment on above: Order Comment: Speci men Type: URINE SPECIMEN Ordering Facility: [facility] Address: [address] [place] [address] Performed By: #### 2 4356-8 #### [facility] CLIA [id number] [address] [place] [address] [place] AST [Catalytic activity/Vol] 13 U/L Normal 13-35 [facility] Comment on above: Order Comment: Speci men Type: URINE SPECIMEN Ordering Facility: [facility] Address: [address] [place] [address] Performed By: #### 2 4356-8 #### [facility] CLIA [id number] [address] [place] [address] [place] Bilirubin [Mass/Vol] mg/dL Low 0.2-1.3 [facility] Comment on above: Order Comment: Speci men Type: URINE SPECIMEN Ordering Facility: [facility] Address: [address] [place] [address] Performed By: #### 2 4356-8 #### [facility] CLIA [id number] [address] [place] [address] [place] Calcium [Mass/Vol] 9.2 mg/dL Normal 8.5-10.2 [facility] Comment on above: Order Comment: Speci men Type: URINE SPECIMEN Ordering Facility: [facility] Address: [address] [place] [address] Performed By: #### 2 4356-8 #### [facility] CLIA [id number] [address] [place] [address] [place] Chloride [Moles/Vol] 109 mmol/L High 98-107 [facility] Comment on above: Order Comment: Speci men Type: URINE SPECIMEN Ordering Facility: [facility] Address: [address] [place] [address] Performed By: #### 2 4356-8 #### [facility] CLIA [id number] [address] [place] [address] [place] CO2 [Moles/Vol] 21 mmol/L Low 22-30 [facility] Comment on above: Order Comment: Speci men Type: URINE SPECIMEN Ordering Facility: [facility] Address: [address] [place] [address] Performed By: #### 2 4356-8 #### [facility] CLIA [id number] [address] [place] [address] [place] Creatinine [Mass/Vol] 0.68 mg/dL Normal 0.58-0.96 [facility] Comment on above: Order Comment: Speci men Type: URINE SPECIMEN Ordering Facility: [facility] Address: [address] [place] [address] Performed By: #### 2 4356-8 #### [facility] CLIA [id number] [address] [place] [address] [place] Creatinine and Glomerular filtration rate.predicted panel (S/P/Bld) 115 mL/min/1.73m??? Normal >=60 [facility] Comment on above: Order Comment: Speci men Type: URINE SPECIMEN Ordering Facility: [facility] Address: [address] [place] [address] Result Comment: Bhavya mated Glomerular Filtration Rate [...] reflect actual GFR. Performed By: #### 2 4356-8 #### [facility] CLIA [id number] [address] [place] [address] [place] Glucose [Mass/Vol] 95 mg/dL Normal 74-99 [facility] Comment on above: Order Comment: Speci men Type: URINE SPECIMEN Ordering Facility: [facility] Address: [address] [place] [address] Result Comment: The [place] Diabetes Association (ADA) provides guidance for cutoff [...] Standards of Medical Care in Diabetes 2016, [place] [employer]. Diabetes Care. 2016.39(Suppl 1). Performed By: #### 2 4356-8 #### [facility] CLIA [id number] [address] [place] [address] [place] Potassium [Moles/Vol] 4.5 mmol/L Normal 3.7-5.1 [facility] Comment on above: Order Comment: Speci men Type: URINE SPECIMEN Ordering Facility: [facility] Address: [address] [place] [address] Performed By: #### 2 4356-8 #### [facility] CLIA [id number] [address] [place] [address] [place] Protein [Mass/Vol] 7.1 g/dL Normal 6.3-8.0 [facility] Comment on above: Order Comment: Speci men Type: URINE SPECIMEN Ordering Facility: [facility] Address: [address] [place] [address] Performed By: #### 2 4356-8 #### [facility] CLIA [id number] [address] [place] [address] [place] Sodium [Moles/Vol] 141 mmol/L Normal 136-144 [facility] Comment on above: Order Comment: Speci men Type: URINE SPECIMEN Ordering Facility: [facility] Address: [address] [place] [address] Performed By: #### 2 4356-8 #### [facility] CLIA [id number] [address] [place] [address] [place] Urea nitrogen [Mass/Vol] 13 mg/dL Normal 7-21 [facility] Comment on above: Order Comment: Speci men Type: URINE SPECIMEN Ordering Facility: [facility] Address: [address] [place] [address] Performed By: #### 2 4356-8 #### [facility] CLIA [id number] [address] [place] [address] [id number] [place] [address] [place] HISTORY PHYSICALon HISTORY PHYSICAL HNO ID: [id number] Author: ASTRID VUONG APRN.ARCHIVAL STUDIES PROFESSOR Service: ? Author Type: Nurse Practitioner Type: H&P Filed: 01/23/2025 15:38 Note Text: [facility] HISTORY AND PHYSICAL EXAMINATION SERVICE DATE: 01/22/2025 SERVICE TIME: 2:20 PM PRIMARY CARE PHYSICIAN: No primary care provider on file. Assessment Patient has the following medical conditions which may affect aidan-operative course: At risk for sleep apnea Assessment: stop bang 4 Has HSAT test ordered, needs to complete Difficult intravenous access Assessment: Advised adequate hydration, noted to have difficulty in the past. Denied any use of central lines placed in the past. US use recommended. Migraine with aura and without status migrainosus, not intractable Assessment: R/t her IIH. Following with Dr. Harris, intermittent episodes. IIH (idiopathic intracranial hypertension) Assessment: IIH s/p right transverse sinus stent 10/2023. 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 Colón stenting and angioplasty of the right TSJ. Hypertension Assessment: no medications 149/89 - 01/22/2025 Denies cardiac symptoms GERD (gastroesophageal reflux disease) Assessment: endorses gerd and heartburn, no medications at this time Major depressive disorder Assessment: complaint on mood stablizers, follows PCP. ANESTHESIA FINDINGS: Intubation History: No history of difficult intubation. No abnormal airway history Significant Anesthesia Considerations: patient and family state typically quite groggy for some time in recovery;; Endorses prior use of vein finder or US machine for assistance, expert provider, midline consut ordered for DOS potential difficult IV/vein access Airway History: No history of difficult airway No abnormal airway history Braswell Activity Status Index: METS: Walk indoors, such as around the house (1.75 METs) Do light work around the house, such as dusting or washing dishes (2.70 METs) Take care of self; that is eating, dressing, bathing, using the toilet (2.75 METs) Walk a block or two on level ground (2.75 METs) Do moderate work around the house, such as vacuuming, sweeping floors, or carrying in groceries (3.50 METs) DASI Score: 13.45 Patient confirms chest pain or undue shortness of breath with the above physical activity. Clinical Frailty Scale: 3. Well, with treated comorbid disease STOP-Bang Score: Snores loudly Has been observed to stop breathing or choking/gasping during sleep BMI greater than 35 kg/m2 Has a large neck Denies feeling tired, fatigued, or sleepy during the daytime Denies having high blood pressure Patient 50 years old or younger Non-male patient STOP-Bang Score: 4 I - PHYSICAL EVALUATION AIRWAY Patient intubated: No. Tracheostomy tube not present Mallampati: II. TM distance: >3 FB. Neck ROM: full ROM without neurological symptoms. Mouth opening: adequate. Short neck: no. Thick neck: yes Microretrognathia/Micronagt hia/Recessed Chin: No DENTAL Normal dental observations. Dental findings: teeth intact. II - ANESTHESIA PLAN Beta Son Monitoring Plan Post Procedure Analgesic Plan Prepared for Surgery: optimally prepared for surgery, pending [see comment]. EKG, TANDS, PT, PTT, CMP, CBC ordered by surgical service Addendum 01/23/2025 Labs and EKG reviewed and accepted from 01/22/2025 Anemia slightly decreased on review of prior labs CONSULTS: Patient does not require consults for optimization at this time Planned Anesthetic: anesthesia choice The Following Tests/Procedures Have Been Initiated: No orders of the defined types were placed in this encounter. REASON FOR VISIT: Omar Gomez is a 39 year old female who is scheduled for Procedure(s): ROBOTIC LAPAROSCOPIC HERNIA REPAIR VENTRAL INITIAL REDUCIBLE W/MESH GREATER THAN 10cm (N/A) at the request of Jaswant Stokes MD for consultation. My final recommendation will be communicated back to the requesting physician by way of shared medical record or letter. Subjective The patient has the following: COVID-19 Immunization Status Current Care Gaps Covid-19 Vaccine ( season) Never done No completion, postpone, frequency change, or communication history exists for this topic. CHIEF COMPLAINT: Preop exam HPI: Omar Gomez is a 39 year old female. Presents to [facility] today for preop exam. Patient is scheduled for the above procedure on 02/06/2025 . Patient with recurrent incisional hernia. She underwent laparoscopic cholecystectomy and developed an incisional hernia. She underwent open incisional hernia pair with mesh and then had t laparoscopic ovarian surgery and she noticed the hernia recurred not long after that. Endorses pain at the hernia site and at upper midline. Plan for above surgery. Denies fevers, c (more content not included)... Normal [facility] PT panel Coag (PPP)on 2024 INR Coag (PPP) [Relative time] 1.0 {INR} Normal 0.9-1.3 [facility] Comment on above: Order Comment: Speci men Type: URINE SPECIMEN Ordering Facility: [facility] Address: [address] [place] [address] Result Comment: Rosenda min K Antagonist (VKA) Therapeutic Range: INR 2 to 3 (Target INR of 2.5) Note: For patients treated with VKA drugs, such as warfarin, the [place] [employer] 2012 Guideline recommends a therapeutic INR range of 2 to 3 (target INR of 2.5). This recommendation includes high-risk patients with antiphospholipid syndrome with previous arterial or venous thromboembolism, current-generation mechanical or bioprosthetic aortic heart valve replacement. Note: Patients with mechanical aortic valve replacement and additional risk factors for thromboembolic events (atrial fibrillation, previous thromboembolism, LV dysfunction, hypercoagulable conditions) or an older generation mechanical AVR (i.e., ball in-Cage) or any mechanical MVR should have a INR therapeutic range of 2.5 to 3.5 (target INR of 3). Klaus GH, et al. Chest 2012, 141:7S-47S Veronique HENRY et al. [facility] 2017, 70: 252-289 Performed By: #### 2 4356-8 #### [facility] CLIA [id number] [id number] [place] PT Coag (PPP) [Time] 10.8 s Normal 9.7-13.0 [facility] Comment on above: Order Comment: Speci men Type: URINE SPECIMEN Ordering Facility: [facility] Address: [address] [place] [address] Performed By: #### 2 4356-8 #### [facility] CLIA [id number] [address] [place] [address] [place] TYPE AND SCREEN,30 DAYon ABO O Normal [facility] Comment on above: Order Comment: Speci men Type: BLOOD SPECIMENOrdering Facility: [facility] Address: [address] [place] [address] Performed By: #### T SCR30 ####[facility] [id number] [place] [address] [place] Rh Nom (Bld) Positive Normal [facility] Comment on above: Order Comment: Speci men Type: BLOOD SPECIMENOrdering Facility: [facility] Address: [address] [place] [address] Performed By: #### T SCR30 ####[facility] [id number] [address] [place] aPTT PPPon 01-22-2025 aPTT Coag (PPP) [Time] 24.5 s Normal 23.0-32.4 [facility] Comment on above: Order Comment: Speci men Type: URINE SPECIMEN Ordering Facility: [facility] Address: [address] [place] [address] Performed By: #### 2 4356-8 #### [facility] CLIA [id number] [address] [place] [address] [place] MRA Head veins WO and W cont rast Tiffany 01-08-2025 IMPRESSION: 1. Persistent nonspecific left transverse/sigmoid junction narrowing. 2. Unclear significance with differential provided above. 3. Patent and stable remaining intracranial deep venous system. 4. Stable partially empty sella. Test Man: LAITH Transcribe Date/Time: Jan 08 2025 1:21P Dictated by : DESTINY ROQUE MD This examination was interpreted and the report reviewed and electronically signed by: DESTINY ROQUE MD on Jan 08 2025 1:25PM [facility] DIVISION OF RADIOLOGY * * *Final Report* * * DATE OF EXAM: Jan 08 2025 1:14PM Q 0336 - MRV BRAIN WO/W IVCON / PROCEDURE REASON: Intracranial vascular stenosis * * * * Physician Interpretation * * * * COMPARISONS: MR venogram from 05/15/2024. HISTORY: Idiopathic intracranial hypertension. TECHNIQUE: MRV intracranial venous sinuses without and with contrast. MQ: MRBWOW_2 CONTRAST: 20 mL Dotarem IV. RESULT: MRV INTRACRANIAL VENOUS SINUSES: Acute abnormality: None. Stable hypoplastic left transverse/venous system with focal stenosis at junction of left sigmoid & transverse sinuses (series 7 image 57) & whether this is related to filling defect (arachnoid granulation) or recannulated thrombus or intrinsic stenosis is unclear. Remaining hypoplastic transverse/sigmoid sinus is stable - patent - smooth without any irregularity or filling defect. Superior and inferior sagittal, straight and right transverse/sigmoid sinuses including the deep and superficial venous system including internal cerebral veins, vein of Yon and cortical veins are otherwise normal without any discontinuity, filling defect or irregularity to suggest venous sinus thrombosis. Overall this is stable when compared to prior MR venogram examination. DIVISION OF RADIOLOGY Provider, [facility] - 01/08/2025 * * *Final Report* * * DATE OF EXAM: Jan 08 2025 1:14PM QBM 0336 - MRV BRAIN WO/W IVCON / PROCEDURE REASON: Intracranial vascular stenosis * * * * Physician Interpretation * * * * COMPARISONS: MR venogram from 05/15/2024. HISTORY: Idiopathic intracranial hypertension. TECHNIQUE: MRV intracranial venous sinuses without and with contrast. MQ: MRBWOW_2 CONTRAST: 20 mL Dotarem IV. RESULT: MRV INTRACRANIAL VENOUS SINUSES: Acute abnormality: None. Stable hypoplastic left transverse/venous system with focal stenosis at junction of left sigmoid & transverse sinuses (series 7 image 57) & whether this is related to filling defect (arachnoid granulation) or recannulated thrombus or intrinsic stenosis is unclear. Remaining hypoplastic transverse/sigmoid sinus is stable - patent - smooth without any irregularity or filling defect. Superior and inferior sagittal, straight and right transverse/sigmoid sinuses including the deep and superficial venous system including internal cerebral veins, vein of Yon and cortical veins are otherwise normal without any discontinuity, filling defect or irregularity to suggest venous sinus thrombosis. Overall this is stable when compared to prior MR venogram examination. IMPRESSION IMPRESSION: 1. Persistent nonspecific left transverse/sigmoid junction narrowing. 2. Unclear significance with differential provided above. 3. Patent and stable remaining intracranial deep venous system. 4. Stable partially empty sella. Test Man: PSCB Transcribe Date/Time: Jan 08 2025 1:21P Dictated by : DESTINY ROQUE MD This examination was interpreted and the report reviewed and electronically signed by: DESTINY ROQUE MD on Jan 08 2025 1:25PM EST [facility] Radiology Study observation (narrative) [facility] MRA Head veins WO and W cont rast IVOrdered By: [facility] Provider on 01-08-2025 [facility] MRV BRAIN WO/W IVCONon 01-08 MRV BRAIN WO/W IVCON * * *Final Report* * * DATE OF EXAM: Jan 08 2025 1:14PM QBM 0336 - MRV BRAIN WO/W IVCON / PROCEDURE REASON: Intracranial vascular stenosis * * * * Physician Interpretation * * * * COMPARISONS: MR venogram from 05/15/2024. HISTORY: Idiopathic intracranial hypertension. TECHNIQUE: MRV intracranial venous sinuses without and with contrast. MQ: MRBWOW_2 CONTRAST: 20 mL Dotarem IV. RESULT: MRV INTRACRANIAL VENOUS SINUSES: Acute abnormality: None. Stable hypoplastic left transverse/venous system with focal stenosis at junction of left sigmoid and transverse sinuses (series 7 image 57) and whether this is related to filling defect (arachnoid granulation) or recannulated thrombus or intrinsic stenosis is unclear. Remaining hypoplastic transverse/sigmoid sinus is stable - patent - smooth without any irregularity or filling defect. Superior and inferior sagittal, straight and right transverse/sigmoid sinuses including the deep and superficial venous system including internal cerebral veins, vein of Yon and cortical veins are otherwise normal without any discontinuity, filling defect or irregularity to suggest venous sinus thrombosis. Overall this is stable when compared to prior MR venogram examination. IMPRESSION: 1. Persistent nonspecific left transverse/sigmoid junction narrowing. 2. Unclear significance with differential provided above. 3. Patent and stable remaining intracranial deep venous system. 4. Stable partially empty sella. Test Man: LAITH Transcribe Date/Time: Jan 08 2025 1:21P Dictated by : DESTINY ROQUE MD This examination was interpreted and the report reviewed and electronically signed by: DESTINY ROQUE MD on Jan 08 2025 1:25PM EST [id number] Normal [facility] CNOVon 11-10-2024 CNOV Office Visit (GENN ) OMAR GOMEZ ([id number]) 1985 F Date Time Provider Department 11/10/24 1:30 PM JASWANT ASKEW During your visit today, we recorded the following information about you: Temperature Pulse Blood pressure Weight 97.2 degrees 79/minute 168/96 113.4 kg Height 1.676 m Belen Mallory MA 11/10/2024 3:54 PM Signed What is the reason for your visit today? Consult Who is your referring physician? Dr. Askew Are you having poor oral intake? NO Have you had unintentional weight loss of 15 lbs/7 Kg in the last 3-6 months? YES Bowels: regular Wound: clean AND dry Temperature: No Drains: No Andrew Salgado 11/10/2024 3:54 PM Signed GENERAL SURGERY HISTORY AND PHYSICAL EXAMINATION SERVICE DATE: 11/10/2024 SERVICE TIME: 1:45PM PRIMARY CARE PHYSICIAN: No primary care provider on file. REASON FOR VISIT: Omarorin Gomez is a 39 year old female who is being seen for recurrent paraumbilical incisional hernia. 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 It is associated with 6/10 pain, characterized as constant, sharp, exacerbated by leaning forward AND alleviated by laying down. The pain is exacerbated by increased PO intake and tender to touch. She endorses intermittent nausea, denies vomiting. She also endorses chronic constipation, BM every 1-2x weeks, since her most recent surgery. 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) Home AC/AP: ASA 81mg Home O2: no Diabetes: no Hx of Stroke/Seizures/NE: no Non-smoker Recent history of SHIP SCALER stent placement (right transverse sinus stent 10/2023) 2/2 IIH FUNCTIONAL STATUS: Walk indoors, such as around the house (1.75 METs) Do light work around the house, such as dusting or washing dishes (2.70 METs) Take care of self, that is eating, dressing, bathing, using the toilet (2.75 METs) Walk a block or two on level ground (2.75 METs) PAST MEDICAL HISTORY Diagnosis Date Adjustment disorder with depressed mood Ectopic 12/2022 IIH (idiopathic intracranial hypertension) PMH - PAST MEDICAL HISTORY OF 11/10/93-color vision normal Post depression 07/18/2013 hypertension PTSD (post-traumatic stress disorder) Unequal pupils [...] Relation Age of Onset Cancer Maternal Aunt SOCIAL HISTORY: Social History Tobacco Use Smoking status: Never Smokeless tobacco: Never Vaping Use Vaping status: Never Used Substance Use Topics Alcohol use: Not Currently Drug use: No MEDICATIONS: Prior to Admission medications as of 11/10/24 1343 Medication Sig Last Dose Taking aspirin 325 mg tablet Take 1 tablet by mouth once daily. Patient should start on October 22, 2024. clopidogrel (PLAVIX) 75 mg tablet Take 1 tablet by mouth once daily for 12 days. aspirin 81 mg chewable tablet Take 1 tablet by mouth once daily. Patient should start on October 23, 2024. acetaZOLAMIDE SR (DIAMOX SEQUELS) 500 mg capsule Take 1 capsule by mouth every evening. metFORMIN ER (GLUCOPHAGE XR) 500 mg 24 hr tablet Take 1 tablet by mouth daily with lunch for 7 days, THEN 1 tablet two times a day with meals. pantoprazole DR (PROTONIX) 40 mg tablet Take 1 tablet by mouth once daily. acetaminophen (TYLENOL) 500 mg tablet Take 2 tablets by mouth every 6 hours as needed for pain. methocarbamol (ROBAXIN) 500 mg tablet Take 1 tablet by mouth three times a day as needed (Headache). LORazepam (ATIVAN) 1 mg tablet Take 1 mg by mouth as needed for anxiety. iv contrast (will be provided with radiology test) (more content not included)... Normal [facility] HISTORY PHYSICALon HISTORY PHYSICAL HNO ID: [id number] Author: ?, ?, ? Service: ? Author Type: ? Type: H&P Filed: 11/10/2024 15:54 Note Text: GENERAL SURGERY HISTORY AND PHYSICAL EXAMINATION SERVICE DATE: 11/10/2024 SERVICE TIME: 1:45PM PRIMARY CARE PHYSICIAN: No primary care provider on file. REASON FOR VISIT: Omar Gomez is a 39 year old female who is being seen for recurrent paraumbilical incisional hernia. 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 It is associated with 6/10 pain, characterized as constant, sharp, exacerbated by leaning forward AND alleviated by laying down. The pain is exacerbated by increased PO intake and tender to touch. She endorses intermittent nausea, denies vomiting. She also endorses chronic constipation, BM every 1-2x weeks, since her most recent surgery. 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) Home AC/AP: ASA 81mg Home O2: no Diabetes: no Hx of Stroke/Seizures/NE: no Non-smoker Recent history of SHIP SCALER stent placement (right transverse sinus stent 10/2023) 10/12 IIH FUNCTIONAL STATUS: Walk indoors, such as around the house (1.75 METs) Do light work around the house, such as dusting or washing dishes (2.70 METs) Take care of self, that is eating, dressing, bathing, using the toilet (2.75 METs) Walk a block or two on level ground (2.75 METs) PAST MEDICAL HISTORY Diagnosis Date Adjustment disorder with depressed mood Ectopic 12/2022 IIH (idiopathic intracranial hypertension) PMH - PAST MEDICAL HISTORY OF 11/10/93-color vision normal Post depression 07/18/2013 hypertension PTSD (post-traumatic stress disorder) Unequal pupils [...] Relation Age of Onset Cancer Maternal Aunt SOCIAL HISTORY: Social History Tobacco Use Smoking status: Never Smokeless tobacco: Never Vaping Use Vaping status: Never Used Substance Use Topics Alcohol use: Not Currently Drug use: No MEDICATIONS: Prior to Admission medications as of 11/10/24 1343 Medication Sig Last Dose Taking aspirin 325 mg tablet Take 1 tablet by mouth once daily. Patient should start on October 22, 2024. clopidogrel (PLAVIX) 75 mg tablet Take 1 tablet by mouth once daily for 12 days. aspirin 81 mg chewable tablet Take 1 tablet by mouth once daily. Patient should start on October 23, 2024. acetaZOLAMIDE SR (DIAMOX SEQUELS) 500 mg capsule Take 1 capsule by mouth every evening. metFORMIN ER (GLUCOPHAGE XR) 500 mg 24 hr tablet Take 1 tablet by mouth daily with lunch for 7 days, THEN 1 tablet two times a day with meals. pantoprazole DR (PROTONIX) 40 mg tablet Take 1 tablet by mouth once daily. acetaminophen (TYLENOL) 500 mg tablet Take 2 tablets by mouth every 6 hours as needed for pain. methocarbamol (ROBAXIN) 500 mg tablet Take 1 tablet by mouth three times a day as needed (Headache). LORazepam (ATIVAN) 1 mg tablet Take 1 mg by mouth as needed for anxiety. iv contrast (will be provided with radiology test) [facility] Brain Inject, intravenously, once for 1 dose. [...] in the MR contrast administration guidelines link. Patient not taking: Reported on 07/25/2024 venlafaxine ER (EFFEXOR XR) 75 mg 24 hr capsule Take 1 capsule by mouth every afternoon. Miscellaneous Medical Supply (BLOOD PRESSURE CUFF) 1 Each once d (more content not included)... Normal [facility] Pancho 10-14-2024 [facility] Telephone ([facility]) OMAR GOMEZ ([id number]) 1985 F Date Time Provider Department 10/14/24 SUGEY ALLAN NSE[facility]N During your visit today, we recorded the following information about you: Sophia Camarena, RN 10/14/2024 9:30 AM Signed Spoke with patient and recommended being evaluated in ED for urgent imaging. Patient will go to [facility]. Will look for imaging and ED report. Allergies As of Date: 10/14/2024 Noted Allergy Reaction TAPE (ADHESIVE TAPE (ROSINS)) 07/18/2013 2 - Rash Comments: EKG tape pleitez skin- other tape gives patient rashes Date Reviewed: 10/06/2024 Reviewed by: Mikael Colón MD - Fully Assessed Prescriptions as of 10/14/2024 - aspirin 325 mg tablet Take 1 tablet by mouth once daily. Patient should start on October 22, 2024. - clopidogrel (PLAVIX) 75 mg tablet Take 1 tablet by mouth once daily for 12 days. - aspirin 81 mg chewable tablet Take 1 tablet by mouth once daily. Patient should start on October 23, 2024. - acetaZOLAMIDE SR (DIAMOX SEQUELS) 500 mg capsule Take 1 capsule by mouth every evening. - metFORMIN ER (GLUCOPHAGE XR) 500 mg 24 hr tablet Take 1 tablet by mouth daily with lunch for 7 days, THEN 1 tablet two times a day with meals. - pantoprazole DR (PROTONIX) 40 mg tablet Take 1 tablet by mouth once daily. - acetaminophen (TYLENOL) 500 mg tablet Take 2 tablets by mouth every 6 hours as needed for pain. - methocarbamol (ROBAXIN) 500 mg tablet Take 1 tablet by mouth three times a day as needed (Headache). - LORazepam (ATIVAN) 1 mg tablet Take [...] (BLOOD PRESSURE CUFF) 1 Each once daily. Facility-Administered Medications as of 10/14/2024 - tropicamide 1 % 1 Drop (MYDRIACYL) - PHENYLephrine 2.5 % 1 Drop (AK-DILATE, JACLYN-SYNEPHRINE) - fluorescein-benoxinate 0.3-0.4 % 1 Drop (FLURESS) - proparacaine 0.5 % 1 Drop (ALCAINE) Problem List As Of Date 10/14/2024 Noted Resolved ABDOMINAL PAIN RLQ [R10.31] 08/16/2005 WELL-WOMAN CARE [Z01.419] 12/16/2007 Pain [R52] 07/18/2013 Hypertension [I10] 07/18/2013 Post depression [F53.0] 07/18/2013 07/25/2024 Pulmonary nodule [R91.1] 07/18/2013 Palpitations [R00.2] 08/22/2013 Major depressive disorder [F32.9] 11/25/2013 PTSD (post-traumatic stress disorder) [F43.10] 11/25/2013 Abdominal pain [R10.9] 07/25/2018 IIH (idiopathic intracranial hypertension) [G93*11/24/2020 Obesity due to excess calories without serious *11/24/2020 Migraine with aura and without status migrainos*02/27/2023 Idiopathic intracranial hypertension [G93.2] 04/26/2023 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] 06/21/2024 Difficult intravenous access [Z78.9] 07/25/2024 Encounter Status:Closed by SOPHIA CAMARENA on 10/14/24 [facility] 10-06-2024 [facility] Telephone ([facility]) OMAR GOMEZ ([id number]) 1985 F Date Time Provider Department 10/06/24 CHULA MORTON [facility] During your visit today, we recorded the following information about you: Mary Choudhury RN 10/06/2024 1:10 PM Signed Received message from Dr Colón that patient is not taking aspirin and plavix states that she is out of medication. Followed up with patient that she had medication sent to [facility] per request 2 weeks ago, patient states she lives near [place] not this pharmacy. New orders placed for HAYDEE to sign now. Reviewed instructions to stop plavix when prescription is complete, continue aspirin until December Allergies As of Date: 10/06/2024 Noted Allergy Reaction TAPE (ADHESIVE TAPE (ROSINS)) 07/18/2013 2 - Rash Comments: EKG tape pleitez skin- other tape gives patient rashes Date Reviewed: 10/06/2024 Reviewed by: Mikael Colón MD - Fully Assessed Reason for Visit: Layer Up - Other [9733] Cmt: Medications Prescriptions as of 10/06/2024 - acetaZOLAMIDE SR (DIAMOX SEQUELS) 500 mg capsule Take 1 capsule by mouth every evening. - metFORMIN ER (GLUCOPHAGE XR) 500 mg 24 hr tablet Take 1 tablet by mouth daily with lunch for 7 days, THEN 1 tablet two times a day with meals. - clopidogrel (PLAVIX) 75 mg tablet Take 1 tablet by mouth once daily. - aspirin 325 mg tablet Take 1 tablet by mouth once daily. - pantoprazole DR (PROTONIX) 40 mg tablet Take 1 tablet by mouth once daily. - acetaminophen (TYLENOL) 500 mg tablet Take 2 tablets by mouth every 6 hours as needed for pain. - methocarbamol (ROBAXIN) 500 mg tablet Take 1 tablet by mouth three times a day as needed (Headache). - LORazepam (ATIVAN) 1 mg tablet Take 1 mg by mouth as needed for anxiety. - iv contrast (will be provided with radiology test) V Brain Inject, intravenously, once for 1 dose. [...] (BLOOD PRESSURE CUFF) 1 Each once daily. Facility-Administered Medications as of 10/06/2024 - tropicamide 1 % 1 Drop (MYDRIACYL) - PHENYLephrine 2.5 % 1 Drop (AK-DILATE, JACLYN-SYNEPHRINE) - fluorescein-benoxinate 0.3-0.4 % 1 Drop (FLURESS) - proparacaine 0.5 % 1 Drop (ALCAINE) Problem List As Of Date 10/06/2024 Noted Resolved ABDOMINAL PAIN RLQ [R10.31] 08/16/2005 WELL-WOMAN CARE [Z01.419] 12/16/2007 Pain [R52] 07/18/2013 Hypertension [I10] 07/18/2013 Post depression [F53.0] 07/18/2013 07/25/2024 Pulmonary nodule [R91.1] 07/18/2013 Palpitations [R00.2] 08/22/2013 Major depressive disorder [F32.9] 11/25/2013 PTSD (post-traumatic stress disorder) [F43.10] 11/25/2013 Abdominal pain [R10.9] 07/25/2018 IIH (idiopathic intracranial hypertension) [G93*11/24/2020 Obesity due to excess calories without serious *11/24/2020 Migraine with aura and without status migrainos*02/27/2023 Idiopathic intracranial hypertension [G93.2] 04/26/2023 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] 06/21/2024 Difficult intravenous access [Z78.9] 07/25/2024 Encounter Status:Closed by MARY CHOUDHURY on 10/06/24 Normal [facility] OCT OPTIC NERVE CIRRUS OU (B OTH EYES)on 10-06-2024 [facility] Radiology Study observation (narrative) [facility] OPTIC DISC PHOTO OU (BOTH EY ES)on 10-06-2024 [facility] Radiology Study observation (narrative) [facility] VISUAL FIELD 24-2 OU (BOTH E YES)on 10-06-2024 [facility] Radiology Study observation (narrative) [facility] Pancho 09-26-2024 [facility] Telephone ([facility]) OMAR GOMEZ ([id number]) 1985 F Date Time Provider Department 09/26/24 CHULA MORTON [facility] During your visit today, we recorded the following information about you: Danielle Morales 09/26/2024 4:42 PM Signed CV PHONE Name of caller : Olga Relationship to patient : Provider If not self Will need patient permission to release results or disclose health information with called documented in fyi. Patient identified by Name and Date of . ( Omar Gomez, 1985). Yes Number to return call [phone] Reason for Call: Olga is calling from [facility] regarding refills for Plavix 75mg and Aspirin 325 mg. Please call to verify prescriptions for refills. P.S Patient missed her Post Op with [facility]. Caller was requested a refill from Meena. Sent to provider pool to forward for review. Thank you calling [facility]. You will receive a return call within 48 hours ( or 2 business days if close to the weekend). If you feel that this is an urgent issue and needs immediate attention, it is recommended that you contact your primary care provider office or proceed to your nearest Urgent Care Center of Emergency Room ED for evaluation/treatment. Mary Choudhury, HAN 09/26/2024 4:52 PM Signed Refill request pended to HAYDEE for signature for updated pharmacy Allergies As of Date: 09/26/2024 Noted Allergy Reaction TAPE (ADHESIVE TAPE (ROSINS)) 07/18/2013 2 - Rash Comments: EKG tape pleitez skin- other tape gives patient rashes Date Reviewed: 07/30/2024 Reviewed by: Ronak Molina, HAN - Fully Assessed Reason for Visit: Refill Request [94] Prescriptions as of 09/26/2024 - metFORMIN ER (GLUCOPHAGE XR) 500 mg 24 hr tablet Take 1 tablet by mouth daily with lunch for 7 days, THEN 1 tablet two times a day with meals. - pantoprazole DR (PROTONIX) 40 mg tablet Take 1 tablet by mouth once daily. - clopidogrel (PLAVIX) 75 mg tablet Take 2 tablets by mouth once daily for 14 days, THEN 1 tablet once daily. - acetaminophen (TYLENOL) 500 mg tablet Take 2 tablets by mouth every 6 hours as needed for pain. - methocarbamol (ROBAXIN) 500 mg tablet Take 1 tablet by mouth three times a day as needed (Headache). - aspirin 325 mg tablet Take 1 tablet by mouth once daily. - LORazepam (ATIVAN) 1 mg tablet Take [...] (BLOOD PRESSURE CUFF) 1 Each once daily. Problem List As Of Date 09/26/2024 Noted Resolved ABDOMINAL PAIN RLQ [R10.31] 08/16/2005 WELL-WOMAN CARE [Z01.419] 12/16/2007 Pain [R52] 07/18/2013 Hypertension [I10] 07/18/2013 Post depression [F53.0] 07/18/2013 07/25/2024 Pulmonary nodule [R91.1] 07/18/2013 Palpitations [R00.2] 08/22/2013 Major depressive disorder [F32.9] 11/25/2013 PTSD (post-traumatic stress disorder) [F43.10] 11/25/2013 Abdominal pain [R10.9] 07/25/2018 IIH (idiopathic intracranial hypertension) [G93*11/24/2020 Obesity due to excess calories without serious *11/24/2020 Migraine with aura and without status migrainos*02/27/2023 Idiopathic intracranial hypertension [G93.2] 04/26/2023 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 ([id number]) 1985 F Date Time Provider Department 09/26/24 RHIANNA CAMPO During your visit today, we recorded the following information about you: Miranda Garibay 09/26/2024 2:00 PM Signed 1st attempt sent [employer] in [address] Campo in 6 months, needs to see dietary and exercise physiology- and general surg Nitza Arreola 09/29/2024 10:25 AM Signed Last read by Omar Gomez at 2:02 PM on 09/26/2024. Divya Flores 10/02/2024 2:18 PM Signed Appointments scheduled: 3-month with Rylee Gregory on 01/03/2025 and 6-month with Dr Campo on 05/04/2025. Thank you, Divya Gunderson Allergies As of Date: 09/26/2024 Noted Allergy Reaction TAPE (ADHESIVE TAPE (ROSINS)) 07/18/2013 2 - Rash Comments: EKG tape pleitez skin- other tape gives patient rashes Date Reviewed: 07/30/2024 Reviewed by: Ronak Molina, RN - Fully Assessed Reason for Visit: Appointment [186] Prescriptions as of 10/02/2024 - metFORMIN ER (GLUCOPHAGE XR) 500 mg 24 hr tablet Take 1 tablet by mouth daily with lunch for 7 days, THEN 1 tablet two times a day with meals. - clopidogrel (PLAVIX) 75 mg tablet Take 1 tablet by mouth once daily. - aspirin 325 mg tablet Take 1 tablet by mouth once daily. - pantoprazole DR (PROTONIX) 40 mg tablet Take 1 tablet by mouth once daily. - acetaminophen (TYLENOL) 500 mg tablet Take 2 tablets by mouth every 6 hours as needed for pain. - methocarbamol (ROBAXIN) 500 mg tablet Take 1 tablet by mouth three times a day as needed (Headache). - LORazepam (ATIVAN) 1 mg tablet Take [...] (BLOOD PRESSURE CUFF) 1 Each once daily. Problem List As Of Date 09/26/2024 Noted Resolved ABDOMINAL PAIN RLQ [R10.31] 08/16/2005 WELL-WOMAN CARE [Z01.419] 12/16/2007 Pain [R52] 07/18/2013 Hypertension [I10] 07/18/2013 Post depression [F53.0] 07/18/2013 07/25/2024 Pulmonary nodule [R91.1] 07/18/2013 Palpitations [R00.2] 08/22/2013 Major depressive disorder [F32.9] 11/25/2013 PTSD (post-traumatic stress disorder) [F43.10] 11/25/2013 Abdominal pain [R10.9] 07/25/2018 IIH (idiopathic intracranial hypertension) [G93*11/24/2020 Obesity due to excess calories without serious *11/24/2020 Migraine with aura and without status migrainos*02/27/2023 Idiopathic intracranial hypertension [G93.2] 04/26/2023 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 HISTORY: ORDERING SYSTEM PROVIDED HISTORY: Reason for Exam: NEOPLASM OF UNCERTAIN BEHAVIOR OF LEFT OVARY, given history of tumor of the left ovary, patient is off and on left-sided lower quadrant pain, previous history of pelvic surgery FINDINGS: The uterus is 12.4 x 6.5 x 4.7 cm. In the posterior uterus there is a subserosal smaller hypoechoic lesion of 2.3 cm. There is an adjacent intramural posterior uterine lesion of 3.1 cm. These are both statistically likely to be fibroids although ultrasound cannot be histologically specific. The endometrium is 7.7 mm double wall thickness transvaginally which is normal. There are small nabothian cyst in the cervix.. Right ovary: 4.2 x 3.7 x 3.0 cm. There is a 2.5 cm cyst in the ovary with minimal low level internal echoes but no other complex features. There is blood flow in the adjacent ovary. Left ovary: 2.8 x 3.4 x 3.0 cm. This is unremarkable in appearance with no obvious mass. There is blood flow in the ovary. No pelvic free fluid. IMPRESSION: Minimally complex right ovarian cystic lesion is strongly favored to be a hemorrhagic follicle. No follow-up is indicated in a patient of this age. The left ovary appears normal. There are 2 uterine fibroids as described. Interpreted by: Sinai Morrell MD Preliminary Report By: Sinai Morrell MD Electronically signed By Sinai Morrell MD Dictated Date: 09/22/2024 4:27:33 PM Prelim Date: 09/22/2024 4:32:39 PM Sign Date: 09/22/2024 4:32:39 PM Ordering Provider: SEEMA BULLOCK Normal [facility] .Urinalysis Microscopic (AO) on 09-19-2024 UA Bacteria 2+ /hpf Abnormal [facility] Comment on above: Performed By: #### U A, PREGU, UAMICAO #### [facility] [address], [place] [address] UA RBC 0-5 Abnormal None Seen [facility] Comment on above: Performed By: #### U A, PREGU, UAMICAO #### [facility] [address], [place] [address] UA Squam Epithelial 10-15 Abnormal None Seen [facility] Comment on above: Performed By: #### U Gris BAKARI UAMICAO #### [facility] [place] [address], [place] [address] UA WBC 5-10 Abnormal None Seen [facility] Comment on above: Performed By: #### U Gris BAKARI UAMICAO #### [facility] [address], [place] [address] CT ABDOMEN/PELVIS W/O CONTRA STon 09-19-2024 CT ABDOMEN/PELVIS W/O CONTRAST ORIGINAL EXAMINATION: CT OF THE ABDOMEN AND PELVIS WITHOUT CONTRAST09/19/2024 8:08 pm TECHNIQUE: CT of the abdomen and pelvis was performed without the administration of intravenous contrast. Multiplanar reformatted images are provided for review. Automated exposure control, iterative reconstruction, and/or weight based adjustment of the mA/kV was utilized to reduce the radiation dose to as low as reasonably achievable. COMPARISON: CT abdomen pelvis 08/25/2024 HISTORY: ORDERING SYSTEM PROVIDED HISTORY: Reason for Exam: R FLANK PAIN FINDINGS: The included lung bases are clear. There is no visible pleural or pericardial effusion. The heart is normal in size. The liver, spleen, adrenal glands, and pancreas are within normal limits. The gallbladder is surgically absent. The kidneys show no evidence of hydronephrosis or nephrolithiasis. The large and small bowel demonstrate no obstruction. The appendix is normal. No free intraperitoneal fluid or gas is identified. The aorta is normal in caliber. There is no lymphadenopathy. The uterus is unremarkable. Unremarkable urinary bladder. Postsurgical changes in anterior abdominal wall.. There is no acute fracture or aggressive osseous lesion. IMPRESSION: No acute abdominopelvic abnormality. No evidence of obstructive uropathy or nephrolithiasis. I have personally reviewed the images of this examination and agree with the resident's findings and interpretation. Interpreted by: Dequan Richard Preliminary Report By: Kenton Banks Electronically signed By Dequan Richard Dictated Date: 09/19/2024 8:19:56 PM Prelim Date: 09/19/2024 8:27:10 PM Sign Date: 09/19/2024 8:29:33 PM Ordering Provider: ROC BURT Normal [facility] LABORATORYOrdered By: Elisabeth Wagner on 09-19-2024 Appearance (U) Cloudy *ABN* (09/19/24 7:17 PM) Invalid Interpretation Code Clear AO Auto Urine SS Bacteria LM.HPF (Urine sed) [#/Area] 2 /[HPF] Invalid Interpretation Code AO Auto Urine SS Bilirubin Ql (U) Negative (09/19/24 7:17 PM) Normal Negative AO Auto Urine SS Color (U) Yellow (09/19/24 7:17 PM) Normal AO Auto Urine SS Glucose Test strip (U) [Mass/Vol] Negative Normal Negative AO Auto Urine SS HCG ( test) Ql Negative (09/19/24 7:17 PM) Normal AO Manual Urine SS Hemoglobin Auto test strip (U) [Mass/Vol] Negative (09/19/24 7:17 PM) Normal Negative AO Auto Urine SS Ketones Ql (U) Negative Normal Negative AO Auto Urine SS test (u) int Not detected Invalid Interpretation Code AO Manual Urine SS UA Leuk Est Negative (09/19/24 7:17 PM) Normal Negative AO Auto Urine SS UA Nitrite Negative (09/19/24 7:17 PM) Normal Negative AO Auto Urine SS UA pH 5.5 (09/19/24 7:17 PM) Normal 5.0 - 8.0 AO Auto Urine SS UA Protein Negative Normal Negative AO Auto Urine SS UA RBC 0-5 /HPF Invalid Interpretation Code None Seen AO Auto Urine SS UA Spec Grav 1.010 *ABN* (09/19/24 7:17 PM) Invalid Interpretation Code 1.015-1.025 AO Auto Urine SS UA Specimen Type Clean Catch (09/19/24 7:17 PM) Normal AO Auto Urine SS UA Squam Epithelial 10-15 /HPF Invalid Interpretation Code None Seen AO Auto Urine SS UA Urobilinogen 0.2 E.U./dL Normal 0.2-1.0 AO Auto Urine SS WBC LM.HPF (Urine sed) [#/Area] 5-10 /HPF Invalid Interpretation Code None Seen AO Auto Urine SS PREGUon 09-19-2024 HCG ( test) Ql (U) Negative Normal [facility] Comment on above: Performed By: #### U A, PREGU, UAMICAO #### [place] [address] test (u) int Not detected Invalid Interpretation Code [facility] [facility] Comment on above: Performed By: #### U A, PREGU, UAMICAO #### [place] [address] UAon 09-19-2024 Color (U) Yellow Normal [facility] Comment on above: Performed By: #### U A, PREGU, UAMICAO #### [place] [address] Glucose (U) [Mass/Vol] Negative Normal Negative [facility] Comment on above: Performed By: #### U A, PREGU, UAMICAO #### [place] [address] Ketones Ql (U) Negative Normal Negative [facility] Comment on above: Performed By: #### U A, PREGU, UAMICAO #### [place] [address] UA Appear Cloudy Abnormal Clear [facility] Comment on above: Performed By: #### U A, PREGU, UAMICAO #### [place] [address] UA Blood Negative Normal Negative [facility] Comment on above: Performed By: #### U A, PREGU, UAMICAO #### [place] [address] UA Leuk Est Negative Normal Negative [facility] Comment on above: Performed By: #### U A, PREGU, UAMICAO #### [place] [address] UA Nitrite Negative Normal Negative [facility] Comment on above: Performed By: #### U A, PREGU, UAMICAO #### [place] [address] UA pH 5.5 Normal 5.0 - 8.0 [facility] Comment on above: Performed By: #### U A, PREGU, UAMICAO #### [address] [address] UA Protein Negative Normal Negative [facility] Comment on above: Performed By: #### U Gris PREGU, UAMICAO #### [place] [address] [place], [place] [address] UA Spec Grav 1.010 Abnormal 1.015-1.025 [facility] Comment on above: Performed By: #### U Gris PREGU UAMICAO #### [address] [address] UA Specimen Type Clean Catch Normal [facility] Comment on above: Performed By: #### U Gris PREGU, UAMICAO #### [address] [address] UA Urobilinogen 0.2 E.U./dL Normal 0.2-1.0 [facility] Comment on above: Performed By: #### Corrina Landry PREGU UAMICAO #### [address] [address] Urobilinogen (U) [Mass/Vol] Negative Normal Negative [facility] Comment on above: Performed By: #### U JONA LandryU, UAMICAO #### [address] [address] .Auto Diffon 08-25-2024 Basophil, Absolute 0.1 10 3/mcL Normal 0.0-0.2 [facility] Comment on above: Performed By: #### A JORGE HERNANDEZ, HORTENSIA, GFR, CBC, ADIFF ####[address] [address] Basophils/100 WBC (Bld) 0.8 % Normal 0.0-2.5 [facility] Comment on above: Performed By: #### A JORGE HERNANDEZ, BMP, GFR, CBC, ADIFF ####[address] [address] Eosinophil, Absolute 0.3 10 3/mcL Normal 0.0-0.7 [facility] Comment on above: Performed By: #### A JORGE HERNANDEZ, HORTENSIA, GFR, CBC, ADIFF ####[facility] [place], [place] [address] Eosinophils/100 WBC (Bld) 2.5 % Normal 0.0-7.0 [facility] Comment on above: Performed By: #### A JORGE HERNANDEZ, HORTENSIA, GFR, CBC, ADIFF ####[facility] [place], [place] [address] Lymphocyte, Absolute 2.5 10 3/mcL Normal 0.9-4.3 [facility] Comment on above: Performed By: #### A JORGE HERNANDEZ, HORTENSIA, GFR, CBC, ADIFF ####[address] [address] Lymphocytes/100 WBC (Bld) 25.0 % Normal 20.0-40.0 [facility] Comment on above: Performed By: #### A JORGE HERNANDEZ, HORTENSIA, GFR, CBC, ADIFF ####[address] [address] Monocyte, Absolute 0.8 10 3/mcL Normal 0.1-1.4 [facility] Comment on above: Performed By: #### A JORGE HERNANDEZ, HORTENSIA, GFR, CBC, ADIFF ####[address] [address] Monocytes/100 WBC (Bld) 7.8 % Normal 2.0-13.0 [facility] Comment on above: Performed By: #### A JORGE HERNANDEZ, HORTENSIA, GFR, CBC, ADIFF ####[facility] [place] [address] Neutrophils/100 WBC (Bld) 63.9 % Normal 50.0-75.0 [facility] Comment on above: Performed By: #### A JORGE HERNANDEZ, HORTENSIA, GFR, CBC, ADIFF ####[facility] [place] [address] .GFRon 08-25-2024 GFR 89 ml/min/1.73sqm Normal [facility] Comment on above: Result Comment: GFR [...] 15 mL/min/1.73 square meters Performed By: #### A JORGE HERNANDEZ, BMP, GFR, CBC, ADIFF ####[address] [place] [place], [place] [address] GFR Non- 74 ml/min/1.73sqm Normal [facility] Comment on above: Result Comment: GFR [...] 15 mL/min/1.73 square meters Performed By: #### A JORGE HERNANDEZ, HORTENSIA, GFR, CBC, ADIFF ####[address] [place], [place] [address] .JORGEon 08-25-2024 Monocyte Distribution Width 18.61 Normal 0.00-20.00 [facility] Comment on above: Result Comment: For ED adult patients suspected of sepsis, MDW<=20.0 does not rule out sepsis or risk of sepsis Performed By: #### A JORGE HERNANDEZ, BMP, GFR, CBC, ADIFF ####[facility] [place] [address] .NEUABSon 08-25-2024 Neutrophil, Absolute 6.4 10 3/mcL Normal 2.3-8.1 [facility] Comment on above: Performed By: #### A JORGE HERNANDEZ, HORTENSIA, GFR, CBC, ADIFF ####[facility] [place], [place] [address] .Urinalysis Microscopic (AO) on 08-25-2024 UA Bacteria 4+ /hpf Abnormal [facility] Comment on above: Performed By: #### U A, PREGU, UAMICAO #### [address] [address] UA RBC 5-10 Abnormal None Seen [facility] Comment on above: Performed By: #### U A, PREGU, UAMICAO #### [address] [address] UA Squam Epithelial 15-25 Abnormal None Seen [facility] Comment on above: Performed By: #### U Gris, PREGU, UAMICAO #### [address] [address] UA WBC LOADED Abnormal None Seen [facility] Comment on above: Performed By: #### U A, PREGU, UAMICAO #### [address] [address] BMPon 08-25-2024 BUN/Creatinine Ratio 21 ratio Normal 7-27 [facility] Comment on above: Performed By: #### A JORGE HERNANDEZ, HORTENSIA, GFR, CBC, ADIFF ####[address] [address] Calcium [Mass/Vol] 8.4 mg/dL Normal 8.4-10.2 [facility] Comment on above: Performed By: #### A JORGE HERNANDEZ, HORTENSIA, GFR, CBC, ADIFF ####[place] [id number] Chloride [Moles/Vol] 108 mmol/L High 98-107 [facility] Comment on above: Performed By: #### A JORGE HERNANDEZ, HORTENSIA, GFR, CBC, ADIFF ####[facility] [place], [place] [address] CO2 [Moles/Vol] 23 mmol/L Normal 22-29 [facility] Comment on above: Performed By: #### A JORGE HERNANDEZ, HORTENSIA, GFR, CBC, ADIFF ####[facility] [place], [place] [address] Creatinine [Mass/Vol] 0.87 mg/dL Normal 0.55-1.02 [facility] Comment on above: Result Comment: Test ing performed on Siemens Dimension EXL analyzer using a modified kinetic Gino technique. Performed By: #### A JORGE HERNANDEZ, HORTENSIA, GFR, CBC, ADIFF ####[address] [place], [place] [address] Electrolyte Balance 13.0 mEq/L Normal 4.0-15.0 [facility] Comment on above: Performed By: #### A JORGE HERNANDEZ, HORTENSIA, GFR, CBC, ADIFF ####[place] [address] [place], [place] [address] Glucose [Mass/Vol] 119 mg/dL High 70-105 [facility] Comment on above: Performed By: #### A JORGE HERNANDEZ, HORTENSIA, GFR, CBC, ADIFF ####[place] [address] [place], [place] [address] Potassium [Moles/Vol] 3.9 mmol/L Normal 3.5-5.1 [facility] Comment on above: Performed By: #### A JORGE HERNANDEZ, HORTENSIA, GFR, CBC, ADIFF ####[facility] [place], [place] [address] Sodium [Moles/Vol] 144 mmol/L Normal 136-145 [facility] Comment on above: Performed By: #### A JORGE HERNANDEZ, HORTENSIA, GFR, CBC, ADIFF ####[place] [address] [place], [place] [address] Urea nitrogen [Mass/Vol] 18 mg/dL Normal 7-18 [facility] Comment on above: Performed By: #### A JORGE HERNANDEZ, HORTENSIA, GFR, CBC, ADIFF ####[address] [place], [place] [address] CBCon 08-25-2024 Erythrocyte distribution width (RBC) [Ratio] 16.2 % High 11.5-15.5 [facility] Comment on above: Performed By: #### A JORGE HERNANDEZ, HORTENSIA, GFR, CBC, ADIFF ####[place] [address] [place], [place] [address] Hematocrit (Bld) [Volume fraction] 34.0 % Normal 34.0-46.0 [facility] Comment on above: Performed By: #### A JORGE HERNANDEZ, HORTENSIA, GFR, CBC, ADIFF ####[address] [place], [place] [address] Hgb 11.3 G/dL Low 12.0-16.0 [facility] Comment on above: Performed By: #### A JORGE HERNANDEZ, HORTENSIA, GFR, CBC, ADIFF ####[facility] [place], [place] [address] MCH (RBC) [Entitic mass] 24.8 pg Low 27.0-33.0 [facility] Comment on above: Performed By: #### A JORGE HERNANDEZ, HORTENSIA, GFR, CBC, ADIFF ####[facility] [place], [place] [address] MCHC 33.1 G/dL Normal 32.0-36.0 [facility] Comment on above: Performed By: #### A JORGE HERNANDEZ, HORTENSIA, GFR, CBC, ADIFF ####[facility] [place], [place] [address] MCV (RBC) [Entitic vol] 74.9 fL Low 80.0-99.0 [facility] Comment on above: Performed By: #### A JORGE HERNANDEZ, HORTENSIA, GFR, CBC, ADIFF ####[facility] [place], [place] [address] Platelet 277 10 3/mcL Normal 150-450 [facility] Comment on above: Performed By: #### A JORGE HERNANDEZ, HORTENSIA, GFR, CBC, ADIFF ####[place] [address] [place], [place] [address] Platelet mean volume (Bld) [Entitic vol] 6.7 fL Normal 6.6-10.5 [facility] Comment on above: Performed By: #### A JORGE HERNANDEZ, HORTENSIA, GFR, CBC, ADIFF ####[place] [address] [place], [place] [address] RBC 4.54 10 6/mcL Normal 4.10-5.30 [facility] Comment on above: Performed By: #### A JORGE HERNANDEZ, HORTENSIA, GFR, CBC, ADIFF ####[address] [place], [place] [address] WBC 10.0 10 3/mcL Normal 4.5-10.8 [facility] Comment on above: Performed By: #### A JORGE HERNANDEZ, HORTENSIA, GFR, CBC, ADIFF ####[place] [place], [place] [address] CT ABDOMEN/PELVIS W/O CONTRA STon 08-25-2024 CT ABDOMEN/PELVIS W/O CONTRAST ORIGINAL EXAMINATION: CT OF THE ABDOMEN AND PELVIS WITHOUT CONTRAST 08/25/2024 12:40 am TECHNIQUE: CT of the abdomen and pelvis was performed without the administration of intravenous contrast. Multiplanar reformatted images are provided for review. Automated exposure control, iterative reconstruction, and/or weight based adjustment of the mA/kV was utilized to reduce the radiation dose to as low as reasonably achievable. COMPARISON: CT abdomen pelvis June 12, 2024 HISTORY: ORDERING SYSTEM PROVIDED HISTORY: Reason for Exam: left flank pain hx of kidney stones abdominal pain FINDINGS: Lower Chest: No focal consolidation. Organs: Cholecystectomy. No hydronephrosis or hydroureter. Asymmetric left periureteral fat stranding. No radiopaque stone identified. GI/Bowel: No bowel obstruction, pneumoperitoneum, or ascites. Pelvis: Unremarkable. Peritoneum/Retroperitoneum: Nonaneurysmal abdominal aorta. No enlarged lymph nodes. Bones/Soft Tissues: No acute osseous abnormality. Anterior abdominal wall postsurgical change. IMPRESSION: Asymmetric left periureteral fat stranding, without visualized stone, could reflect recently passed stone unless there is a concern for ascending urinary tract infection. Correlate clinically. Interpreted by: Dequan Richard Preliminary Report By: Dequan Richard Electronically signed By Dequan Richard Dictated Date: 08/25/2024 12:48:03 AM Prelim Date: 08/25/2024 12:51:24 AM Sign Date: 08/25/2024 12:51:24 AM Ordering Provider: BROOK OLIVER [facility] PREGUon 08-25-2024 HCG ( test) Ql (U) Negative Normal [facility] Comment on above: Performed By: #### U A, PREGU, UAMICAO #### [place] [address] test (u) int Not detected Invalid Interpretation Code [facility] Comment on above: Performed By: #### U A, PREGU, UAMICAO #### [place] [address] UAon 08-25-2024 Color (U) Yellow Normal [facility] Comment on above: Performed By: #### U A, PREGU, UAMICAO #### [place] [address] Glucose (U) [Mass/Vol] Negative Normal Negative [facility] Comment on above: Performed By: #### U A, PREGU, UAMICAO #### [place] [address] Ketones Ql (U) Negative Normal Negative [facility] Comment on above: Performed By: #### U A, PREGU, UAMICAO #### [place] [address] UA Appear Slightly Cloudy Abnormal Clear [facility] Comment on above: Performed By: #### U A, PREGU, UAMICAO #### [place] [address] UA Blood Small Abnormal Negative [facility] Comment on above: Performed By: #### U A, PREGU, UAMICAO #### [place] [address] UA Leuk Est Trace Abnormal Negative [facility] Comment on above: Performed By: #### U A, PREGU, UAMICAO #### [place] [address] UA Nitrite Positive Abnormal Negative [facility] Comment on above: Performed By: #### U A, PREGU, UAMICAO #### [place] [address] UA pH 6.0 Normal 5.0 - 8.0 [facility] Comment on above: Performed By: #### U A, PREGU, UAMICAO #### [place] [address] UA Protein 30 mg/dL Normal Negative [facility] Comment on above: Performed By: #### U A, PREGU, UAMICAO #### [place] [address] UA Spec Grav >=1.030 Abnormal 1.015-1.025 [facility] Comment on above: Performed By: #### U A, PREGU, UAMICAO #### [place] [address] UA Specimen Type Clean Catch Normal [facility] Comment on above: Performed By: #### U A, PREGU, UAMICAO #### [place] [address] UA Urobilinogen 0.2 E.U./dL Normal 0.2-1.0 [facility] Comment on above: Performed By: #### U A, PREGU, UAMICAO #### [place] [address] Urobilinogen (U) [Mass/Vol] Negative Normal Negative [facility] Comment on above: Performed By: #### U A, PREGU, UAMICAO #### [place] [address] LABORATORYOrdered By: Daniela Mcleod on 08-24-2024 Appearance (U) Slightly Cloudy *ABN* (08/24/24 11:58 PM) Invalid Interpretation Code Clear AO Auto Urine SS Bacteria LM.HPF (Urine sed) [#/Area] 4 /[HPF] Invalid Interpretation Code AO Auto Urine SS Bilirubin Ql (U) Negative (08/24/24 11:58 PM) Normal Negative AO Auto Urine SS Color (U) Yellow (08/24/24 11:58 PM) Normal AO Auto Urine SS Glucose Test strip (U) [Mass/Vol] Negative Normal Negative AO Auto Urine SS HCG ( test) Ql Negative (08/24/24 11:58 PM) Normal AO Manual Urine SS Hemoglobin Auto test strip (U) [Mass/Vol] Small *ABN* (08/24/24 11:58 PM) Invalid Interpretation Code Negative AO Auto Urine SS Ketones Ql (U) Negative Normal Negative AO Auto Urine SS test (u) int Not detected Invalid Interpretation Code AO Manual Urine SS UA Leuk Est Trace *ABN* (08/24/24 11:58 PM) Invalid Interpretation Code Negative AO Auto Urine SS UA Nitrite Positive *ABN* (08/24/24 11:58 PM) Invalid Interpretation Code Negative AO Auto Urine SS UA pH 6.0 (08/24/24 11:58 PM) Normal 5.0 - 8.0 AO Auto Urine SS UA Protein 30 mg/dL Normal Negative AO Auto Urine SS UA RBC 5-10 /HPF Invalid Interpretation Code None Seen AO Auto Urine SS UA Spec Grav >=1.030 *ABN* (08/24/24 11:58 PM) Invalid Interpretation Code 1.015-1.025 AO Auto Urine SS UA Specimen Type Clean Catch (08/24/24 11:58 PM) Normal AO Auto Urine SS UA Squam Epithelial 15-25 /HPF Invalid Interpretation Code None Seen AO Auto Urine SS UA Urobilinogen 0.2 E.U./dL Normal 0.2-1.0 AO Auto Urine SS WBC LM.HPF (Urine sed) [#/Area] LOADED /HPF Invalid Interpretation Code None Seen AO Auto Urine SS LABORATORYOrdered By: SYSTEM SYSTEM on 08-24-2024 Basophils (Bld) [#/Vol] 0.1 103/mcL Normal 0.0 - 0.2 10^3/mcL AO Workflow SS Basophils/100 WBC (Bld) 0.8 % Normal 0.0 - 2.5 % AO Workflow SS Calcium [Mass/Vol] 8.4 mg/dL Normal 8.4 - 10. 2 mg/dL AO ADM SS Chloride [Moles/Vol] 108 mmol/L High 98 - 10 7 mmol/L AO ADM SS CO2 [Moles/Vol] 23 mmol/L Normal 22 - 29 mmol/L AO ADM SS Creatinine [Mass/Vol] 0.87 mg/dL Normal 0.55 - 1.02 mg/dL AO ADM SS Comment on above: Interpretive Data: T esting performed on Siemens Dimension EXL analyzer using a modified kinetic Gino technique. Electrolyte Balance 13.0 mEq/L Normal 4.0 - 15 .0 mEq/L AO ADM SS Eosinophil, Absolute 0.3 103/mcL Normal 0.0 - 0 .7 10^3/mcL AO Workflow SS Eosinophils/100 WBC (Bld) 2.5 % Normal 0.0 - 7.0 % AO Workflow SS Erythrocyte distribution width (RBC) [Ratio] 16.2 % High 11.5 - 15.5 % AO Workflow SS GFR/1.73 sq M.predicted among blacks MDRD (S/P/Bld) [Vol rate/Area] 89 ml/min/1.73sqm Invalid Interpretation Code AO Chemistry S [...] M.predicted among non-blacks MDRD (S/P/Bld) [Vol rate/Area] 74 ml/min/1.73sqm Invalid Interpretation Code AO Chemistry S [...] Disease: Less than 15 mL/min/1.73 square meters Glucose [Mass/Vol] 119 mg/dL High 70 - 105 mg/dL AO ADM SS Hematocrit (Bld) [Volume fraction] 34.0 % Normal 34.0 - 46.0 % AO Workflow SS Hemoglobin (Bld) [Mass/Vol] 11.3 G/dL Low 12.0 - 16.0 G/dL AO Workflow SS Lymphocytes (Bld) [#/Vol] 2.5 103/mcL Normal 0.9 - 4.3 10^3/mcL AO Workflow SS Lymphocytes/100 WBC (Bld) 25.0 % Normal 20.0 - 40.0 % AO Workflow SS MCH (RBC) [Entitic mass] 24.8 pg Low 27.0 - 33.0 pg AO Workflow SS MCHC 33.1 G/dL Normal 32.0 - 36.0 G/dL AO Workflow SS MCV (RBC) [Entitic vol] 74.9 fL Low 80.0 - 99.0 fL AO Workflow SS Monocyte distribution width Auto (Bld) [Entitic vol] 18.61 1 Normal 0.00 - 20.00 AO Workflow SS Comment on above: Result Comment: For ED adult patients suspected of sepsis, MDW<=20.0 does not rule out sepsis or risk of sepsis Monocytes (Bld) [#/Vol] 0.8 103/mcL Normal 0.1 - 1.4 10^3/mcL AO Workflow SS Monocytes/100 WBC (Bld) 7.8 % Normal 2.0 - 13.0 % AO Workflow SS Neutrophils (Bld) [#/Vol] 6.4 103/mcL Normal 2.3 - 8.1 10^3/mcL AO Workflow SS Neutrophils/100 WBC (Bld) 63.9 % Normal 50.0 - 75.0 % AO Workflow SS Platelet mean volume (Bld) [Entitic vol] 6.7 fL Normal 6.6 - 10.5 fL AO Workflow SS Platelets (Bld) [#/Vol] 277 103/mcL Normal 150 - 450 10^3/mcL AO Workflow SS Potassium [Moles/Vol] 3.9 mmol/L Normal 3.5 - 5.1 mmol/L AO ADM SS RBC (Bld) [#/Vol] 4.54 106/mcL Normal 4.10 - 5.3 0 10^6/mcL AO Workflow SS Sodium [Moles/Vol] 144 mmol/L Normal 136 - 145 mmol/L AO ADM SS Urea nitrogen [Mass/Vol] 18 mg/dL Normal 7 - 18 mg/dL AO ADM SS Urea nitrogen/Creatinine [Mass ratio] 21 ratio Normal 7 - 27 ratio AO ADM SS WBC (Bld) [#/Vol] 10.0 103/mcL Normal 4.5 - 10.8 10^3/mcL AO Workflow SS 12 Lead EKGon 08-14-2024 12 Lead EKG [facility] Cardiovascular Services [address] [place] [address] 12 Lead EKG 08/14/24 1659 MR#: [id number] Acct: [id number] Name: OMAR GOMEZ Rep #: [id number] : 1985 38 From: Maco Amin MD Attending Dr: Status: DEP ER Ordering Dr: Mariama Amador Date: 08/14/24 Location: ED Sex: F C Admitted: Test Reason : SYNC Blood Pressure : */* mmHG Vent. Rate : 77 BPM Atrial Rate : 77 BPM P-R Int : 132 ms QRS Dur : 90 ms QT Int : 380 ms P-R-T Axes : 51 73 45 degrees QTcB Int : 430 ms Normal sinus rhythm Normal ECG Confirmed by Maco Amin ([id number]), avid editor AMARI BOONE ([id number]) on 08/15/2024 1:47:57 PM Referred By: Confirmed By: Maco Amin 08/15/24 1347 Date Maco Amin MD CC: Dr. Norris Saeed DO; AURELIA Hoang; No Primary Care Physician Signed Normal [facility] [place] [facility] Abdomen/Pelvis W IV Cont ONL Yon 08-14-2024 Abdomen/Pelvis W IV Cont ONLY [facility] Imaging Services [address] [place] [address] Abdomen/Pelvis W IV Cont ONLY MR#: [id number] Acct: [id number] Name: OMAR GOMEZ Rep #: [id number] : 1985 F 38 From: De Hill MD PCP: Care Physician,No Primary Status: REG ER Study: Abdomen/Pelvis W IV Cont ONLY Date of Exam: Exam# [id number] Ordering Dr: Mariama Amador [id number] EXAM: CT ABDOMEN AND PELVIS WITH INTRAVENOUS CONTRAST CLINICAL INDICATION: upper abdominal pain TECHNIQUE: Helically acquired images were obtained of the abdomen and pelvis with intravenous contrast. This CT exam was performed using one or more of the following dose reduction techniques: automated exposure control, adjustment of the mA and/or kV according to patient size, and/or use of iterative reconstruction technique. CONTRAST: IV 100mL Isovue-370 RADIATION DOSE: CTDIvol = 14.62 mGy, DLP = 1236.77 mGy-cm. COMPARISON: July 02, 2024. May 10, 2024 FINDINGS: LOWER THORAX: Unremarkable. Lung bases are clear. No cardiomegaly. No significant pericardial effusion. ABDOMEN: LIVER: Right lobe of liver is 19.2 cm craniocaudal, mildly enlarged. GALLBLADDER AND BILE DUCTS: Cholecystectomy clips. Similar 5.5 mm common duct. PANCREAS: Unremarkable. No focal cystic or solid mass. SPLEEN: Borderline splenomegaly, 12.9 cm AP. ADRENALS: Unremarkable. No nodules. KIDNEYS AND URETERS: Unremarkable. Normal renal size and position. No hydronephrosis. STOMACH AND BOWEL: Unremarkable. No stomach or bowel distention. No focal inflammatory change. PELVIS: APPENDIX: Small collapsed appendix is seen superior to the tip of the cecum on coronal images 64 through 73. BLADDER: Unremarkable. REPRODUCTIVE: There is mildly larger appearance of suspected dominant follicle in the left ovary, 3 cm x 2.4 cm x 3.5 cm, it was 2.6 cm x 2 cm x 2.2 cm. Similar mildly lobulated contour of the dome of the uterus is suspicious for 2.7 cm x 1.6 cm broad-based sessile exophytic fibroid. ABDOMEN and PELVIS: INTRAPERITONEAL SPACE: Unremarkable. No ascites or other fluid collection. No free air. BONES/JOINTS: Unremarkable. No suspicious lytic or blastic abnormality. SOFT TISSUES: Presumed umbilical hernia repair with small soft tissue density sheath appears similar, partially detached or with some curvilinear adjacent scarring. Slight fat in the proximal left inguinal region, similar to prior exam. VASCULATURE: Unremarkable. Abdominal aorta is non-dilated. LYMPH NODES: There is moderate stool in most of the colon, mild stool in the rectum. Mild mesenteric adenopathy is similar to prior exam. CT/Abdomen/Pelvis W IV Cont ONLY IMPRESSION: 1. Moderate stool throughout most of the colon. No evidence of appendicitis. 2. Borderline hepatosplenomegaly. Cholecystectomy. Hernia repair sheath stable. 3. Slightly larger apparent cystic structure in the left adnexa compared to most recent prior exam, but it is similar in size compared to May 10, 2021. Suspected residual or recurrent 3.5 cm dominant ovarian follicle or cyst. Correlate with any left lower quadrant or pelvic pain. Recommendation for simple-appearing cystic structure of less than 5 cm in an asymptomatic premenopausal woman: ACR White Paper guidelines (Garcia, et. al. JACR 2020;17(2):248-254) suggest no follow-up is necessary. Electronically Signed: De Hill MD at 20:40 EST , CC: AURELIA Hoang; No Primary Care Physician Test Man: Signed Normal [facility] Basic Metabolic Profile (BMP )on 08-14-2024 BUN/CRE 24.4 RATIO High 10-20 [facility] Comment on above: Order Comment: 'TROP ' Serial specimen #1, #2 or #3: 1 Performed By: #### L 500.2500, L100.0100, L501.4020 ####[facility] [address] [place], [address] CA,Total 8.8 mg/dL Normal 8.5-10.1 [facility] Comment on above: Order Comment: 'TROP ' Serial specimen #1, #2 or #3: 1 Performed By: #### L 500.2500, L100.0100, L501.4020 ####[facility] [address] [place], [address] Chloride [Moles/Vol] 107 mmol/L Normal 98-107 [facility] Comment on above: Order Comment: 'TROP ' Serial specimen #1, #2 or #3: 1 Performed By: #### L 500.2500, L100.0100, L501.4020 ####[facility] [place] [facility] [address] [place], [address] CO2 [Moles/Vol] 27.0 mmol/L Normal 21.0-32.0 [facility] Comment on above: Order Comment: 'TROP ' Serial specimen #1, #2 or #3: 1 Performed By: #### L 500.2500, L100.0100, L501.4020 ####[facility] [address] [place], [address] Creatinine [Mass/Vol] 0.86 mg/dL Normal 0.55-1.02 [facility] Comment on above: Order Comment: 'TROP ' Serial specimen #1, #2 or #3: 1 Result Comment: The validity of the calculated GFR GFRAA in patients over 70 years has not been determined. Clinical correlation is essential. Performed By: #### L 500.2500, L100.0100, L501.4020 ####[facility] [address] [place], [address] ECRCL 113.48 ml/min Normal [facility] Comment on above: Order Comment: 'TROP ' Serial specimen #1, #2 or #3: 1 Performed By: #### L 500.2500, L100.0100, L501.4020 ####[facility] [address] [place], [address] EST GFR - AA 96 mL/min Normal >60 [facility] Comment on above: Order Comment: 'TROP ' Serial specimen #1, #2 or #3: 1 Result Comment: Afri can Yemeni GFR Calc Performed By: #### L 500.2500, L100.0100, L501.4020 ####[facility] [address] [place], [address] GAP 6 Normal 5-15 [facility] Comment on above: Order Comment: 'TROP ' Serial specimen #1, #2 or #3: 1 Performed By: #### L 500.2500, L100.0100, L501.4020 ####[facility] [address] [place], [address] GFR/1.73 sq M.predicted among non-blacks MDRD (S/P/Bld) [Vol rate/Area] 79 mL/min/{1.73_m2} Normal >60 [facility] Comment on above: Order Comment: 'TROP ' Serial specimen #1, #2 or #3: 1 Result Comment: Non- GFR Calc Performed By: #### L 500.2500, L100.0100, L501.4020 ####[facility] [address] [place], [address] Glucose [Mass/Vol] 86 mg/dL Normal 74-106 [facility] Comment on above: Order Comment: 'TROP ' Serial specimen #1, #2 or #3: 1 Performed By: #### L 500.2500, L100.0100, L501.4020 ####[facility] [address] [place], [address] Potassium [Moles/Vol] 3.6 mmol/L Normal 3.5-5.1 [facility] Comment on above: Order Comment: 'TROP ' Serial specimen #1, #2 or #3: 1 Result Comment: Mode rate Hemolysis, Result may be falsely increased. Performed By: #### L 500.2500, L100.0100, L501.4020 ####[facility] [address] [place], [address] Sodium [Moles/Vol] 140 mmol/L Normal 136-145 [facility] Comment on above: Order Comment: 'TROP ' Serial specimen #1, #2 or #3: 1 Performed By: #### L 500.2500, L100.0100, L501.4020 ####[facility] [address] [place], [address] Urea nitrogen [Mass/Vol] 21 mg/dL High 7-18 [facility] Comment on above: Order Comment: 'TROP ' Serial specimen #1, #2 or #3: 1 Performed By: #### L 500.2500, L100.0100, L501.4020 ####[facility] [address] [place], [address] CBC W/Diff, Automatedon 12-0 SMEAR COMMENT SCANNED Normal [facility] Comment on above: Performed By: #### L 500.2500, L100.0100, L501.4020 #### [facility] [address] [place], [address] D-Dimer Quantitative (DVT/PE )on 08-14-2024 D-DIMER QUANT 0.29 FEU/ug/m Normal 0.27-0.49 [facility] Comment on above: Result Comment: NORM AL D-Dimer level (<0.50) indicates no DVT or PE. Performed By: #### L 300.8000 #### [facility] [address] [place], [address] Emergency Department Summary on 08-14-2024 Emergency Department Summary [facility] Medical Records Department [address] [place] [address] Emergency Department Summary 08/14/24 MR#: [id number] Acct: [id number] Name: OMAR GOMEZ Rep #: [id number] : 1985 38 From: Mariama MOSES PCP: Care Physician,No Primary Status:DEP ER Location: ED HPI History of Present Illness Chief Complaint: General Illness Narrative Narrative: Patient presenting today with multiple vague symptoms. She has a PMH of pseudotumor cerebri, and had a stenting of right transverse sinus stenosis performed on 07/29/[address] Praveen Quiros, and migraine hx. she was discharged home on Plavix and aspirin. She reports that this morning she woke up with a right sided headache that resolved after taking Tylenol, she no longer has a headache. However, she has felt intermittently lightheaded and did have an episode of presyncope while sitting in her car this afternoon. She began to feel nauseous and lightheaded as if she could pass out and reports that her vision did go out for a brief second and then returned, she does not think she lost consciousness. She denies any chest pain or shortness of breath with this episode. However, she does report intermittent midsternal chest pain since having her surgery performed on the . She denies any history of blood clots or shortness of breath. She denies chest pain at this time. She denies fevers, chills, shortness of breath, abdominal pain, and vomiting. [facility] Medical History Left ureteral calculus Bruising Easy bruising History of IBS Heartburn Shortness of breath on exertion Non-smoker History of echocardiogram Cardiology follow-up encounter Generalized anxiety disorder PTSD (post-traumatic stress disorder) Major depressive disorder, recurrent severe without psychotic features Migraines Kidney stones Ovarian cyst Home Medications ???Medication ???Instructions ???Recorded ???Last Taken ???Type acetazolamide 500 mg 500 mg PO BID PSEUDOTUMOR 06/23/21 Unknown History capsule,extended release phenazopyridine 200 mg tablet 200 mg PO TID 6 doses #6 tabs 06/26/23 Unknown Rx (Pyridium) naproxen 500 mg tablet 500 mg PO BID PRN #14 tabs 12/14/23 Unknown Rx aripiprazole 2 mg tablet 2 mg PO QHS 07/02/24 Unknown History ondansetron 4 mg disintegrating 4 mg PO Q8H PRN PRN Nausea #10 tabs 07/02/24 Unknown Rx tablet ondansetron 4 mg disintegrating 4 mg PO Q8H PRN PRN Nausea #10 tabs 08/14/24 Unknown Rx tablet Allergy/AdvReac Type Severity Reaction Status Date / Time adhesive tape AdvReac Other Verified 08/14/24 15:53 Surgical History Hx of cystoscopy History of urethral stent Hx of dilation and curettage Hx of tympanostomy tubes History of section History of umbilical hernia repair History of cholecystectomy Social History household members: spouse Smoking Status: Never smoker ROS ROS ED Constitutional Constitutional ED: Denies chills or fever(s) Cardiovascular Cardiovascular: Denies chest pain or palpitations Respiratory/Chest Respiratory/Chest: Denies cough or dyspnea Gastrointestinal Gastrointestinal: Reports nausea; Denies abdominal pain or vomiting Genitourinary Genitourinary ED: Denies dysuria, hematuria or urinary urgency Musculoskeletal Musculoskeletal: Denies arthralgias or myalgias Integumentary Denies rash Neurologic Neurologic: Reports headache(s); Denies weakness EXAM Physical Exam Const Vital Signs: 08/14/24 15:53 08/14/24 17:52 08/14/24 18:05 Temperature 97.9 F Temperature Source Oral Pulse Rate 85 68 Respiratory Rate 16 16 Respiratory Effort Normal Non-Labored Respiratory Pattern Normal Blood Pressure 145/98 H Blood Pressure Mean 113 Pulse Ox 99 100 Oxygen Delivery Method Room Air 08/14/24 19:00 08/14/24 20:52 Temperature 98 F Temperature Source Pulse Rate 72 84 Respiratory Rate 18 18 Respiratory Effort Respiratory Pattern Blood Pressure 138/79 H Blood Pressure Mean 98 Pulse Ox 100 98 Oxygen Delivery Method Positive well nourished, well developed and no apparent distress General Appearance ED: well developed HEENT Reports normocephalic and head/scalp atraumatic Mouth ED: Yes moist mucous membranes normal Eyes PERRL and EOMs intact bilaterally Neck full ROM and supple Chest Wall inspection of chest normal Resp normal respiratory effort and clear to auscultation bilaterally Cardio regular rate and regular rhythm GI soft to palpation, non-tender, non-distended and no masses Back/Spine normal ROM and normal to inspection (more content not included)... Normal [facility] L501.4020on 08-14-2024 TROPONIN-I HS 7 pg/mL Normal 3.0-54.0 [facility] Comment on above: Order Comment: 'TROP ' Serial specimen #1, #2 or #3: 1 Result Comment: Plea se Note: New Test Units and Gender Specific Reference Ranges. For more information see Policy Stat Procedure [place] High Sensitivity Troponin (TNIH) and attachments. Performed By: #### L 500.2500, L100.0100, L501.4020 ####[facility] [address] [place], [address] Lipaseon 08-14-2024 Lipase [Catalytic activity/Vol] 31 U/L Normal 13-75 [facility] Comment on above: Result Comment: Plegris se note: LIPASE revised reference range effective 22. New Lipase methodology. Expected to produce lower values than the previous assay method. NEW Reference Range: 13 - 75 U/L Performed By: #### L 500.3400, L501.2450 #### [facility] [address] [place], [address] Liver Profileon 08-14-2024 Albumin [Mass/Vol] 3.1 g/dL Low 3.2-5.0 [facility] Comment on above: Performed By: #### L 500.3400, L501.2450 #### [facility] [address] [place], [address] ALK P 87 U/L Normal 45-117 [facility] Comment on above: Performed By: #### L 500.3400, L501.2450 #### [facility] [address] [place], [address] ALT [Catalytic activity/Vol] 23 U/L Normal 13-56 [facility] Comment on above: Performed By: #### L 500.3400, L501.2450 #### [facility] [address] [place], [address] AST [Catalytic activity/Vol] 10 U/L Low 15-37 [facility] Comment on above: Result Comment: Slig ht Hemolysis, Result may be falsely increased. Performed By: #### L 500.3400, L501.2450 #### [facility] [address] [place], [address] Bilirubin [Mass/Vol] 0.50 mg/dL Normal 0.20-1.00 [facility] Comment on above: Result Comment: For patients on eltrombopag therapy, use of Dimension [place]ber TBIL is not recommended. Performed By: #### L 500.3400, L501.2450 #### [facility] [address] [place], [address] Bilirubin.direct [Mass/Vol] 0.09 mg/dL Normal 0.00-0.30 [facility] Comment on above: Performed By: #### L 500.3400, L501.2450 #### [facility] [address] [place], [address] Globulin (S) [Mass/Vol] 4.0 g/dL Normal 2.2-4.2 [facility] Comment on above: Performed By: #### L 500.3400, L501.2450 #### [facility] [address] [place], [address] T PROT 7.1 g/dL Normal 6.4-8.2 [facility] Comment on above: Performed By: #### L 500.3400, L501.2450 #### [facility] [address] [place], [address] ,Serum,hCG Quali.on 08-14-2024 HCG, SERUM QUAL Negative Normal [facility] Comment on above: Performed By: #### L 700.6800 ####[facility] [address] [place], [address] Urinalysis, Completeon 08-14 BACTERIA 3+ /hpf Normal None Seen [facility] Comment on above: Order Comment: ERIC CTOR TO SPECIFY Performed By: #### L 400.0001 ####[facility] [address] [place], [address] Mucus Ql (Urine sed) 2+ /hpf Normal [facility] Comment on above: Order Comment: ERIC CTOR TO SPECIFY Performed By: #### L 400.0001 ####[facility] [address] [place], [address] EPI,SQUAMOUS 10-25 SEEN Normal 5-10 [facility] Comment on above: Order Comment: ERIC CTOR TO SPECIFY Performed By: #### L 400.0001 ####[facility] [address] [place], [address] WBC 0-5 SEEN Normal 0-5 [facility] Comment on above: Order Comment: ERIC CTOR TO SPECIFY Performed By: #### L 400.0001 ####[facility] [address] [place], [address] BILIRUBIN URINE Negative Normal Negative [facility] Comment on above: Order Comment: ERIC CTOR TO SPECIFY Performed By: #### L 400.0001 ####[facility] [address] [place], [address] Clarity (U) Clear Normal Clear [facility] Comment on above: Order Comment: ERIC CTOR TO SPECIFY Performed By: #### L 400.0001 ####[facility] [address] [place], [address] Color (U) Straw Normal Yellow [facility] Comment on above: Order Comment: ERIC CTOR TO SPECIFY Performed By: #### L 400.0001 ####[facility] [address] [place], [address] GLUCOSE, UR Normal Normal Normal [facility] Comment on above: Order Comment: COLLE CTOR TO SPECIFY Performed By: #### L 400.0001 ####[facility] [address] [place] [address] KETONE UR Negative Normal Negative [facility] Comment on above: Order Comment: COLLE CTOR TO SPECIFY Performed By: #### L 400.0001 ####[facility] [address] [place] [address] LEUK ESTERASE Negative Normal Negative [facility] Comment on above: Order Comment: COLLE CTOR TO SPECIFY Performed By: #### L 400.0001 ####[facility] [address] [place] [address] Nitrite Ql (U) Negative Normal Negative [facility] Comment on above: Order Comment: COLLE CTOR TO SPECIFY Performed By: #### L 400.0001 ####[facility] [address] [place] [address] OCCULT BLOOD-UR Negative Normal Negative [facility] Comment on above: Order Comment: ERIC CTOR TO SPECIFY Performed By: #### L 400.0001 ####[facility] [address] [place] [address] pH UR 5.0 Normal 5.0 - 8.0 [facility] Comment on above: Order Comment: COLLE CTOR TO SPECIFY Performed By: #### L 400.0001 ####[facility] [address] [place] [address] PROT DIPSTX Negative Normal Negative [facility] Comment on above: Order Comment: ERIC CTOR TO SPECIFY Performed By: #### L 400.0001 ####[facility] [address] [place] [address] SP.GR. DIPSTX 1.030 Normal 1.002-1.030 [facility] Comment on above: Order Comment: ERIC CTOR TO SPECIFY Performed By: #### L 400.0001 ####[facility] [address] [place], [address] UROBILI Normal Normal Normal [facility] Comment on above: Order Comment: ERIC GREENBERGOR TO SPECIFY Performed By: #### L 400.0001 ####[facility] [address] [place], [address] RBC 0 SEEN Normal 0-5 [facility] Comment on above: Order Comment: ERIC CTOR TO SPECIFY Performed By: #### L 400.0001 ####[facility] [address] [place], [place], [address] [facility] OMAR GOMEZ ([id number]) 1985 F Date Time Provider Department 08/06/24 MURPHY KINCAID [facility] During your visit today, we recorded the following information about you: Allergies As of Date: 08/06/2024 Noted Allergy Reaction TAPE (ADHESIVE TAPE (ROSINS)) 07/18/2013 2 - Rash Comments: EKG tape pleitez skin- other tape gives patient rashes Date Reviewed: 07/30/2024 Reviewed by: Ronak Molina, HAN - Fully Assessed Primary Visit Diagnosis:Episode of recurrent major depressive disorder, unspecified depression episode severity (HCC) [F33.9] Order(s):LORazepam (ATIVAN) 0.5 mgTake 1 tablet by mouth two times a day as needed for up to 7 days.Disp: 12 tabletRfl: 0 Prescriptions as of 08/06/2024 - LORazepam (ATIVAN) 0.5 mg Take 1 tablet by mouth two times a day as needed for up to 7 days. - clopidogrel (PLAVIX) 75 mg tablet Take 2 tablets by mouth once daily for 14 days, THEN 1 tablet once daily. - acetaminophen (TYLENOL) 500 mg tablet Take 2 tablets by mouth every 6 hours as needed for pain. - methocarbamol (ROBAXIN) 500 mg tablet Take 1 tablet by mouth three times a day as needed (Headache). - dexAMETHasone (DECADRON) 2 mg tablet Take 2 tablets by mouth two times a day with meals for 7 days, THEN 1 tablet two times a day with meals for 7 days. - aspirin 325 mg tablet Take 1 tablet by mouth once daily. - pantoprazole DR (PROTONIX) 40 mg tablet Take 1 tablet by mouth once daily. - LORazepam (ATIVAN) 1 mg tablet Take [...] (BLOOD PRESSURE CUFF) 1 Each once daily. Problem List As Of Date 08/06/2024 Noted Resolved ABDOMINAL PAIN RLQ [R10.31] 08/16/2005 WELL-WOMAN CARE [Z01.419] 12/16/2007 Pain [R52] 07/18/2013 Hypertension [I10] 07/18/2013 Post depression [F53.0] 07/18/2013 07/25/2024 Pulmonary nodule [R91.1] 07/18/2013 Palpitations [R00.2] 08/22/2013 Major depressive disorder [F32.9] 11/25/2013 PTSD (post-traumatic stress disorder) [F43.10] 11/25/2013 Abdominal pain [R10.9] 07/25/2018 IIH (idiopathic intracranial hypertension) [G93*11/24/2020 Obesity due to excess calories without serious *11/24/2020 Migraine with aura and without status migrainos*02/27/2023 Idiopathic intracranial hypertension [G93.2] 04/26/2023 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 Encounter Status:Closed by MURPHY KINCAID on 08/06/24 Normal [facility] CNCOon 07-31-2024 CNCO Letter Text Normal [facility] Basic metabolic 2000 panelon 07-30-2024 Anion gap [Moles/Vol] 13 mmol/L Normal 8-15 [facility] Comment on above: Order Comment: Speci men Type: URINE SPECIMEN Ordering Facility: [facility] Address: [address] [place] [address] Performed By: #### 2 4356-8 #### [facility] CLIA [id number] [address] [place] [address] [place] Calcium [Mass/Vol] 8.6 mg/dL Normal 8.5-10.2 [facility] Comment on above: Order Comment: Speci men Type: URINE SPECIMEN Ordering Facility: [facility] Address: [address] [place] [address] Performed By: #### 2 4356-8 #### [facility] CLIA [id number] [address] [place] [address] [place] Chloride [Moles/Vol] 108 mmol/L High 98-107 [facility] Comment on above: Order Comment: Speci men Type: URINE SPECIMEN Ordering Facility: [facility] Address: [address] [place] [address] Performed By: #### 2 4356-8 #### [facility] CLIA [id number] [address] [place] [address] [place] CO2 [Moles/Vol] 17 mmol/L Low 22-30 [facility] Comment on above: Order Comment: Speci men Type: URINE SPECIMEN Ordering Facility: [facility] Address: [address] [place] [address] Performed By: #### 2 4356-8 #### [facility] CLIA [id number] [address] [place] [address] [place] Creatinine [Mass/Vol] 0.65 mg/dL Normal 0.58-0.96 [facility] Comment on above: Order Comment: Speci men Type: URINE SPECIMEN Ordering Facility: [facility] Address: [address] [place] [address] Performed By: #### 2 4356-8 #### [facility] CLIA [id number] [address] [place] [address] [place] Creatinine and Glomerular filtration rate.predicted panel (S/P/Bld) 117 mL/min/1.73m??? Normal >=60 [facility] Comment on above: Order Comment: Speci men Type: URINE SPECIMEN Ordering Facility: [facility] Address: [address] [place] [address] Result Comment: Bhavya mated Glomerular Filtration Rate [...] reflect actual GFR. Performed By: #### 2 4356-8 #### [facility] CLIA [id number] [address] [place] [address] [place] Glucose [Mass/Vol] 182 mg/dL High 74-99 [facility] Comment on above: Order Comment: Speci men Type: URINE SPECIMEN Ordering Facility: [facility] Address: [address] [place] [address] Result Comment: The [place] [employer] Association (ADA) provides guidance for cutoff [...] Standards of Medical Care in Diabetes 2016, [place] [employer]. Diabetes Care. 2016.39(Suppl 1). Performed By: #### 2 4356-8 #### [facility] CLIA [id number] [address] [place] [address] [place] Potassium [Moles/Vol] 4.5 mmol/L Normal 3.7-5.1 [facility] Comment on above: Order Comment: Speci men Type: URINE SPECIMEN Ordering Facility: [facility] Address: [address] [place] [address] Performed By: #### 2 4356-8 #### [facility] CLIA [id number] [address] [place] [address] [place] Sodium [Moles/Vol] 138 mmol/L Normal 136-144 [facility] Comment on above: Order Comment: Speci men Type: URINE SPECIMEN Ordering Facility: [facility] Address: [address] [place] [address] Performed By: #### 2 4356-8 #### [facility] CLIA [id number] [address] [place] [address] [place] Urea nitrogen [Mass/Vol] 11 mg/dL Normal 7-21 [facility] Comment on above: Order Comment: Speci men Type: URINE SPECIMEN Ordering Facility: [facility] Address: [address] [place] [address] Performed By: #### 2 4356-8 #### [facility] CLIA [id number] [address] [place] [address] [place] CBC panel Auto (Bld)on 11-20 -2024 Erythrocyte distribution width (RBC) [Ratio] 15.3 % High 11.5-15.0 [facility] Comment on above: Order Comment: Speci men Type: URINE SPECIMEN Ordering Facility: [facility] Address: [address] [place] [address] Performed By: #### 2 4356-8 #### [facility] CLIA [id number] [address] [place] [address] [place] Hematocrit (Bld) [Volume fraction] 35.7 % Low 36.0-46.0 [facility] Comment on above: Order Comment: Speci men Type: URINE SPECIMEN Ordering Facility: [facility] Address: [address] [place] [address] Performed By: #### 2 4356-8 #### [facility] CLIA [id number] [address] [place] [address] [place] Hemoglobin (Bld) [Mass/Vol] 11.1 g/dL Low 11.5-15.5 [facility] Comment on above: Order Comment: Speci men Type: URINE SPECIMEN Ordering Facility: [facility] Address: [address] [place] [address] Performed By: #### 2 4356-8 #### [facility] CLIA [id number] [address] [place] [address] [place] MCH (RBC) [Entitic mass] 24.0 pg Low 26.0-34.0 [facility] Comment on above: Order Comment: Speci men Type: URINE SPECIMEN Ordering Facility: [facility] Address: [address] [place] [address] Performed By: #### 2 4356-8 #### [facility] CLIA [id number] [address] [place] [address] [place] MCHC (RBC) [Mass/Vol] 31.1 g/dL Normal 30.5-36.0 [facility] Comment on above: Order Comment: Speci men Type: URINE SPECIMEN Ordering Facility: [facility] Address: [address] [place] [address] Performed By: #### 2 4356-8 #### [facility] CLIA [id number] [address] [place] [address] [place] MCV (RBC) [Entitic vol] 77.1 fL Low 80.0-100.0 [facility] Comment on above: Order Comment: Speci men Type: URINE SPECIMEN Ordering Facility: [facility] Address: [address] [place] [address] Performed By: #### 2 4356-8 #### [facility] CLIA [id number] [address] [place] [address] [place] Nucleated RBC (Bld) [#/Vol] 10*3/uL Normal <0.01 [facility] Comment on above: Order Comment: Speci men Type: URINE SPECIMEN Ordering Facility: [facility] Address: [address] [place] [address] Performed By: #### 2 4356-8 #### [facility] CLIA [id number] [address] [place] [address] [place] Platelet mean volume (Bld) [Entitic vol] 9.5 fL Normal 9.0-12.7 [facility] Comment on above: Order Comment: Speci men Type: URINE SPECIMEN Ordering Facility: [facility] Address: [address] [place] [address] Performed By: #### 2 4356-8 #### [facility] CLIA [id number] [address] [place] [address] [place] Platelets (Bld) [#/Vol] 360 10*3/uL Normal 150-400 [facility] Comment on above: Order Comment: Speci men Type: URINE SPECIMEN Ordering Facility: [facility] Address: [address] [place] [address] Performed By: #### 2 4356-8 #### [facility] CLIA [id number] [address] [place] [address] [place] RBC (Bld) [#/Vol] 4.63 10*6/uL Normal 3.90-5.20 [facility] Comment on above: Order Comment: Speci men Type: URINE SPECIMEN Ordering Facility: [facility] Address: [address] [place] [address] Performed By: #### 2 4356-8 #### [facility] CLIA [id number] [address] [place] [address] [place] WBC (Bld) [#/Vol] 18.07 10*3/uL High 3.70-11.00 [facility] Comment on above: Order Comment: Speci men Type: URINE SPECIMEN Ordering Facility: [facility] Address: [address] [place] [address] Performed By: #### 2 4356-8 #### [facility] CLIA [id number] [address] [place] [address] [place] CNDSon 07-30-2024 CNDS HNO ID: [id number] Author: CHULA MORTON MD Service: Neurosurgery Author Type: Physician Handle Bender Type: Discharge Summary Filed: 08/01/2024 15:05 Note Text: Attestation signed by Chula Morton MD at 08/01/2024 3:05 PM Staff: Agree with the above documented information. Plan reviewed and approved by myself. Chula Morton MD Date of Service: July 30, 2024 DISCHARGE SUMMARY NEURO STROKE PATIENT NAME: Omar Gomez ADMISSION DATE: 07/29/2024 DISCHARGE DATE: 07/30/2024 Attending Physician: Chula Morton MD PCP: No primary care provider on file. Code Status: Not on file Highest Readmission Risk Score: 9 The 30 day readmissions risk score is derived from an internally validated risk model which evaluates patient level characteristics, utilization history, medication orders and lab results up until the day of discharge. Patients with a score of 40 or above are considered highest risk for readmission. Specific patient level drivers will be listed at the bottom of the summary. Reason for Hospitalization: Principal Problem: Disorder of intracranial venous sinus (POA: Yes) Resolved Problems: * No resolved hospital problems. * Obesity Class II (BMI 35-39.9) Operations During Hospitalization: None Procedures During Hospitalization: Cerebral angiogram with stenting and angioplasty of right transverse-sigmoid junction July 29, 2024 Stroke Risk Factors: Obesity 06/08/2024 Sleep Apnea Probability Score Probability (%) 21 (Sleep study not recommended) Body Mass Index (BMI) Total Cholesterol (at time of admission) No results found for this basename: chol:1 HDL (at time of admission) No results found for this basename: hdl:1 LDL (at time of admission) No results found for this basename: ldl:1 HbA1c No results found for: HBA1C Hospital Course: Omar Gomez is a 38 year old w/PMH IIH, obesity, baseline anisicoria, PTSD, post depression, adjustment disorder electively admitted to the [facility] to treat her known IIH. After being optimized for surgery by the PAT teams, Omar Gomez was identified and brought into the Operating Room by the anesthesia and nursing teams. The patient underwent a cerebral angiogram with stenting and angioplasty of right transverse-sigmoid junction on July 29, 2024. Patient was hemodynamically stable postoperatively. The patient tolerated the procedure and was taken to PACU, and then to the hospital surgical floor for further post operative management when discharge criteria from PACU was achieved. Patient DVT prophylaxis includes compression stockings and Heparin. Patient's pain was well controlled with Oral medication(s). Patient progressed satisfactorily to discharge. Based upon the appropriate milestones the patient met during the hospital course, discharge to home is recommended. The patient was discharged on POD # 1 in stable condition. Complete and comprehensive discharge instructions were provided to the patient as well as necessary prescriptions. The patient and/or family had no further questions and was advised to call with any questions, concerns, or problems that may arise. Transitions of Care Critical Issues: NEW BASELINE FOR PATIENT: at baseline IMAGING FOLLOW-UP: MRV six months LAB MONITORING NEEDED: n/a SPECIALIST FOLLOW-UP: HAYDEE 4-6 weeks ANDRADE MEDICATION CHANGES: Continue Plavix 150mg daily for two weeks, then reduce dose to 75mg daily PROCEDURES SCHEDULED: n/a LABS AND PROCEDURES PENDING AT DISCHARGE: No pending results. Consulting Teams During Hospitalization: None Treatment Team: Attending Provider: Chula Morton MD Patient Condition @ Discharge: Stable Discharge Disposition: Home with Relative General: A AND O x Oriented to: person, place, and time, awake and alert. Speech is Normal, full, fluent. Appears stated age, obese, in no apparent distress. Psychiatric: Mood and affect: Appropriate. Neuro: CN II-XII intact. FS, TM, PERRLA, EOMI Visual carson full to confrontation Cerebellar: no drift Skin: Color, texture, turgor normal. No rashes or lesions - Inspection: No evidence of eythema, warmth, bruising, abrasions, scars, deformity, or lacerations. R radial and R femoral access site c/d/i CV: RRR without murmur, gallop, or rubs. No ectopy. Distal pulses full and equal Respiratory: lungs CTA bilat Abdomen: Soft and Non-tender Musculoskeletal: Motor: 5/5 throughout all 4 extremities Sensory: intact. Normal sensory exam Information Provided to Patient: WRITTEN Stroke Material Given Addressing: Signs and Symptoms of a Stroke, When to Call 911, Modifiable Risk Factors, Need for Follow-Up After Discharge, Medication Compliance (more content not included)... Normal [facility] ANES POSTPROC EVALon 024 ANES POSTPROC EVAL HNO ID: [id number] Author: IHSAN FRAGOSO MD Service: ? Author Type: Anesthesiologist Type: Anesthesia Postprocedure Evaluation Filed: 07/29/2024 14:07 Note Text: POST ANESTHESIA EVALUATION NOTE : 1985 Procedure Summary Date: 07/29/24 Room / Location: [id number] / ANGIO HB6 Anesthesia Start: 1041 Anesthesia Stop: Procedures: SELECTIVE CATHETER PLACEMENT EACH INTRACRANIAL BRANCH OF THE INTERNAL CAROTID OR VERTEBRAL ARTERIES UNILATERAL W/ ANGIOGRAPHY OF THE SELECTED VESSEL CIRCULATION AND ALL ASSOCIATED RADIOLOGICAL SUPERVISION AND INTERPRETATION (Bilateral: Brain) TRANSCATH PLCMNT OF INTRACRANIAL INTRAVASCULAR STENT (Right: Brain) Diagnosis: IIH (idiopathic intracranial hypertension) Papilledema associated with increased intracranial pressure (IIH (idiopathic intracranial hypertension) [G93.2]) (Papilledema associated with increased intracranial pressure [H47.11]) Surgeons: Chula Morton MD Responsible Provider: Ihsan Fragoso MD Anesthesia Type: general ASA Status: 3 Anesthesia Type: general Airway Type: ETT Last Vitals Vitals Value Taken Time BP 07/29/24 1352 Temp 07/29/24 1352 Pulse 07/29/24 1352 Resp 07/29/24 1352 SpO2 07/29/24 1352 Post Anesthesia Patient Status Patient Evaluation: bedside. Anticipated Disposition: inpatient floor planned admission. Neurological Status: aware and responsive. Pulmonary Status: breathing comfortably on room air Airway Control: returned to baseline unsupported. Cardiovascular Status: stable. Pain Management: clinically adequate Postoperative Hydration: acceptable. Intraoperative Events: no significant anesthesia events Post Operative Nausea/Vomiting Status: no significant post operative nausea or vomiting Recommendation: continue current plan of care. Anesthesia Observations No Documentation SIGNATURE: Ihsan Duron MD PATIENT NAME: Omar Gomez DATE: July 29, 2024 TIME: 1:52 PM CSN: [id number] Normal [facility] ANES PRE-OPon 07-29-2024 ANES PRE-OP HNO ID: [id number] Author: IHSAN FRAGOSO MD Service: ? Author Type: Anesthesiologist Type: Anesthesia Preprocedure Evaluation Filed: 07/29/2024 10:46 Note Text: ANESTHESIOLOGY DAY OF SURGERY NOTE : 1985 Procedure Information Anesthesia Start Date/Time: 07/29/24 1042 Procedures: SELECTIVE CATHETER PLACEMENT EACH INTRACRANIAL BRANCH OF THE INTERNAL CAROTID OR VERTEBRAL ARTERIES UNILATERAL W/ ANGIOGRAPHY OF THE SELECTED VESSEL CIRCULATION AND ALL ASSOCIATED RADIOLOGICAL SUPERVISION AND INTERPRETATION (Bilateral: Brain) TRANSCATH PLCMNT OF INTRACRANIAL INTRAVASCULAR STENT (Right: Brain) Location: [id number] / [facility] ANGIO HB6 Surgeons: Chula Morton MD Estimated body mass index is 39.5 kg/m? as calculated from the following: Height as of 07/25/24: 167.6 cm (5' 6). Weight as of 07/25/24: 111 kg (244 lb 11.4 oz). Most recent hematocrit and potassium results: Hematocrit 37.4 07/25/2024 Potassium 4.6 07/25/2024 Relevant Problems CARDIO (+) Disorder of intracranial venous sinus (+) Hypertension (+) Migraine with aura and without status migrainosus, not intractable NEURO-PSYCH (+) Migraine with aura and without status migrainosus, not intractable I - PHYSICAL EVALUATION AIRWAY Patient intubated: No. Tracheostomy tube not present Mallampati: I. TM distance: >3 FB. Neck ROM: full ROM without neurological symptoms. Mouth opening: adequate. Short neck: no. Thick neck: no Lincoln present: no Lip Bite Test: I Microretrognathia/Micronagt hia/Recessed Chin: No DENTAL Dental findings: teeth intact. Additional exam findings: no II - ANESTHESIA PLAN ASA Score: 3 Anesthetic Plan: general Airway type: ETT The patient is not a current smoker. NPO Status: adequate Beta Son Monitoring Plan Monitoring plan: standard ASA. Post Procedure Analgesic Plan Postoperative analgesic plan: parenteral or oral opioids. Informed Consent Anesthetic risks, benefits, alternatives, personnel and consent discussed: yes. Patient / Responsible Alliance Party agrees to proceed: yes Patient / Surrogate agrees to blood products: Yes DNR status not reviewed with patient and/or family prior to surgery. Significant changes in the patient condition since the History and Physical, not otherwise documented in primary service progress note: no. Potential Anesthesia issues that may suggest increased risk of complications or contraindication to planned procedure: other. Vitals Value Taken Time BP 130/78 07/29/24 0700 Pulse 83 07/29/24 0700 Resp 16 07/29/24 0700 Temp 36.6 ?C (97.8 ?F) 07/29/24 0700 SpO2 97 % 07/29/24 0700 Facility-Administered Medications as of 07/29/2024 Medication Dose Route Frequency - lidocaine (PF) 10 mg/mL (1 %) 1-2 mg injection (XYLOCAINE) 0.1-0.2 mL INTRADERMAL PRN Or - lidocaine 1% 0.25 mL subcutaneous j-tip syringe (XYLOCAINE) 0.25 mL SUBCUTANEOUS PRN - NaCl 0.9% iv flush bag 20 mL INTRAVENOUS PRN - [COMPLETED] phenazopyridine 200 mg tab(s) (PYRIDIUM) 200 mg ORAL ONCE - [COMPLETED] ticagrelor 180 mg tab(s) (BRILINTA) 180 mg ORAL ONCE - [COMPLETED] acetaminophen 650 mg tab(s) (TYLENOL) 650 mg ORAL ONCE Outpatient Medications as of 07/29/2024 Medication Sig - diazePAM (VALIUM) 5 mg tablet Take 5 mg by mouth every 6 hours as needed for anxiety (Patient took 10mg total). (Patient not taking: Reported on 07/25/2024) - acetaZOLAMIDE SR (DIAMOX SEQUELS) 500 mg [...] in the MR contrast administration guidelines link. (Patient not taking: Reported on 07/25/2024) - venlafaxine ER (EFFEXOR XR) 75 mg 24 hr capsule Take 1 capsule by mouth every afternoon. - Miscellaneous Medical Supply (BLOOD PRESSURE CUFF) 1 Each once daily. - ibuprofen (MOTRIN) 600 mg tablet Take 600 mg by mouth every 6 hours as needed. (Patient not taking: Reported on 07/25/2024) I have interviewed and examined the patient. I have reviewed the medical record and/or the pre-anesthesia evaluation, pertinent labs, and test results. This contains updated information obtained within 48 hours of Surgery/Procedure. SIGNATURE: Ihsan Duron MD PATIENT NAME: Omar Gomez DATE: July 29, 2024 TIME: 10:46 AM CSN: [id number] Normal [facility] ASP/CLOBI RESISTANCE INTERPo n 07-29-2024 Heparin Ab Platelet aggregation Ql (PPP) Reviewed by Kristel Finney MD, PhD Normal [facility] Comment on above: Order Comment: Evaristo griffin Type: BLOOD SPECIMEN Ordering Facility: [facility] Address: [address] [place] [address] Performed By: #### A SPCL, ASPCLP #### [facility] CLIA [id number] [address] [place] [address] [place] INTERPRETATION(ASPIR IN/CLOPIDOGREL RESISTANCE) Normal [facility] Comment on above: Order Comment: Evaristo griffin Type: BLOOD SPECIMEN Ordering Facility: [facility] Address: [address] [place] [address] Result Comment: Abno rmal - see comment below. The aggregation results indicate a therapeutic response to aspirin. If the patient is on aspirin therapy, the degree of platelet inhibition indicates aspirin responsiveness because the arachidonic acid aggregation is <20 percent and the ADP aggregation is <70 percent. These parameters were developed at the [facility] utilizing the assay and reagents performed on this patient's platelets. Blanca MOSES. Ning MOSES. Sherry MAURER. A prospective, blinded determination of the natural history of aspirin resistance among stable patients with cardiovascular disease. Journal of the [place] [employer]. 41(6):961-5, 2003. If the patient is on clopidogrel therapy, there is only mild reduction of ADP-induced platelet aggregation. Guidelines for optimal platelet inhibition during clopidogrel therapy have not been well-established. However, if the patient is currently receiving clopidogrel therapy, the results raise the suspicion of suboptimal clopidogrel response or clopidogrel resistance. No prior aspirin/clopidogrel results are available for comparison with the current study. The medication record indicates therapy with aspirin at 325 mg/day plus clopidogrel at 75 mg/day. Performed By: #### A SPCL, ASPCLP #### [facility] CLIA [id number] [address] [place] [address] [place] ASPIRIN/CLOPIDOGREL RESISTAN CEon 07-29-2024 Platelet aggregation ADP induced High dose (PRP) [Rel units/Vol] 44 % Max Low 65-93 [facility] Comment on above: Order Comment: Evaristo griffin Type: BLOOD SPECIMEN Ordering Facility: [facility] Address: [address] [place] [address] Result Comment: See clinically significant comment below. For patients on clopidogrel, ADP aggregation >40% suggests clopidogrel resistance. Performed By: #### A SPCL, ASPCLP #### [facility] CLIA [id number] [address] [place] [address] [place] Platelet aggregation arachidonate induced 500 ug/mL (PRP) [Rel units/Vol] 12 % Max Low 75-100 [facility] Comment on above: Order Comment: Evaristo griffin Type: BLOOD SPECIMEN Ordering Facility: [facility] Address: [address] [place] [address] Performed By: #### A SPCL, ASPCLP #### [facility] CLIA [id number] [address] [place] [address] [place] BRIEF OP NOTon 07-29-2024 BRIEF OP NOT HNO ID: [id number] Author: AUSTIN BUSTAMANTE MD Service: Neuroendovascular Intervention Author Type: Fellow Type: Brief Op Note Filed: 07/29/2024 14:29 Note Text: BRIEF OP/PROCEDURE NOTE NEURO INTERVENTIONAL PROCEDURE DATE: July 29, 2024 LOG ID: [id number] Surgery/Procedure Date: 07/29/2024 Incision/Procedure Start Time: 11:50 AM Incision Close/Procedure End Time: 1:30 PM Anesthesia: General PRIMARY PROCEDURALIST: Rachael Morton M.D. DRUG ABUSE COUNSELOR(S): Austin Bustamante MD CASE STATUS: Inpatient/Emergent PROCEDURE: Intracranial Angioplasty/Stenting Indications: IIH Access Site: RCFV 8Fr sheath closed w MVP; R radial arterial access 6Fr sheath closed w TR band (10 cc) PRE-PROCEDURE DIAGNOSIS: IIH POST-PROCEDURE DIAGNOSIS: Same FINDINGS: - Bilateral transverse sinuses appear co-dominant although right might be slightly largest. - Positive pressure gradient present in bilateral transverse-sigmoid junction (>10 mmHg) - Successful stenting and angioplasty of right transverse-sigmoid junction. - Full report to follow. ESTIMATED BLOOD LOSS: Scant COMPLICATIONS: None RADIATION DOSE: Exceeded 5 Gy - No SPECIMENS: Not Applicable Patient was accompanied to the next level of care by a licensed practitioner from the surgical team pending completion of this brief op note (or operative note) SIGNATURE: Austin Bustamante MD PATIENT NAME: Omar Gomez DATE: July 29, 2024 TIME: 1:51 PM Normal [facility] IR CAROTIDon 07-29-2024 IR CAROTID * * *Final Report* * * DATE OF EXAM: Jul 29 2024 1:30PM NDA 0740 - IR CAROTID / PROCEDURE REASON: transvenous sinus stenosis * * * * Physician Interpretation * * * * NEUROINTERVENTIONAL REPORT CLINICAL HISTORY: OMAR GOMEZ is a 38-year-old Female who presented with clinical picture and imaging findings consistent with Idiopathic Intracranial Hypertension in the setting of bilateral transverse-sigmoid venous sinus stenosis and left mildly hypoplastic transverse sinus. Venous sinus manometry and possible stenting was requested. PROCEDURE: 1. Diagnostic cerebral angiogram 2. Ultrasound-guided arterial and venous access 3. Venous sinus manometry 4. Cerebral venous sinus stenting 5. Followup cerebral angiogram TIME OUT TIME: 1149 PROCEDURE START TIME: 1150 PROCEDURE END TIME: 1330 ATTENDING: Chula Morton MD DRUG ABUSE COUNSELOR (FELLOW): Austin Bustamante MD ANGIOGRAPHY MATERIALS: Guidewire: 0.035 inch angled tapered Glidewire Arterial: Diagnostic catheter: 5 Ivorian Sutton catheter catheter Venous: Diagnostic catheter: 5 Ivorian Vert Catheter Guide catheter: 8 Fr x 90 cm Cerebase DA guide sheath Intermediate catheter: NA Microcatheter: 0.021 Headway 21 microcatheter Microwire: Fathom 16; Choice 0.014 mm x 300 cm exchange length microwire Stent: Zilver 9mm x 60mm stent Post-Dilation Balloon: Viatrac 14 Plus 7 mm x 20 mm. Fluoroscopic Radiation Summary: Plane A, Air Kerma: 1086.0 mGy Plane B, Air Kerma: 194.2 mGy Dose Area Product (DAP): Fluoro time: 46:12 min:sec Radiation dose exceed 5 Gy: No If radiation dose exceeded 5 Gy, was counseling and instructional brochure provided:N/A Contrast arterial: 84 ml of OMNIPAQUE 300 ANESTHESIA: DEBBIE was administered intravenously with continuous monitoring by a dedicated anesthesiologist. Pulsed oximetry, cardiopulmonary monitoring and electrocardiography was performed throughout the procedure per anesthesia team. TECHNIQUE: After nidhi discussion of the risks and benefits of the procedure, informed consent was obtained. The patient demographics, procedure to be performed, patient position, and equipment to be used were confirmed between the performing physicians, anesthesia team and interventional neuroradiology team. The patient was brought to the angiography suite and placed in supine position. After respiratory and hemodynamic monitoring was established and DEBBIE induced, the right radial and bilateral groins were prepped and draped in the usual standard fashion The Right radial artery access site was localized 2 cm proximal to the radial styloid process. The artery was assessed using ultrasound: Right radial artery: Normal and patent. The right radial artery was found to be sufficient for transradial access. A permanent image of the artery was archived. The artery was then accessed using Seldinger technique under ultrasound guidance. A 5 Ivorian Prelude IDeal sheath introducer sheath was inserted and connected to heparinized saline flush. A vasodilatory medication infusion consisting of nitroglycerine, verapamil, and heparin was administered intra-arterially through the radial sheath over 2 minutes After fluoroscopic localization of the right femoral head, the vein was visualized with ultrasound. Right common femoral vein: normal and patent. The right femoral vein was found to be sufficient for transfemoral access. A permanent image of the vein was archived. 1% lidocaine was administered for local anesthesia. Vascular access was then obtained in the vein utilizing a standard 4 Fr micropuncture set, under direct ultrasound visualization followed by a 5 Fr dilator and then Cerebase DA guide sheath with inner dilator. Once in lower IVC, the inner dilator was removed and the guide sheath was connected to heparinized saline flush. A standard diagnostic catheter and wire were then fluoroscopically advanced for selective catheterization of the following vessels via right radial arterial access: Left common carotid artery, cervical views. Standard AP and lateral views. Left common carotid artery, intracranial views. Standard AP, lateral and oblique views. Angiographic imaging was performed at the selected vessel with views as described above. FINDINGS: LEFT COMMON CAROTID ARTERY INJECTION (cervical): DSA images of the left common carotid artery show normal course and caliber. The carotid bifurcation is at C3-4 level. Mild atherosclerotic changes at the carotid bifurcation. The proximal cervical ICA has normal course and caliber without significant atherosclerotic changes. The ECA and the proximal segment of its branches are normal in course and caliber. LEFT COMMON CAROTID ARTERY INJECTION (cranial): DSA images of the left anterior intracranial circulation demonstrate normal course and caliber of the petrous, cavernous and supraclinoid segments of the internal carotid ar (more content not included)... Normal [facility] IR CAROTID CERVICALon 2023 IR CAROTID CERVICAL * * *Final Report* * * DATE OF EXAM: Jul 29 2024 1:30PM [facility] 0857 - IR CAROTID CERVICAL / PROCEDURE REASON: transvenous sinus stenosis * * * * Physician Interpretation * * * * NEUROINTERVENTIONAL REPORT CLINICAL HISTORY: OMAR GOMEZ is a 38-year-old Female who presented with clinical picture and imaging findings consistent with Idiopathic Intracranial Hypertension in the setting of bilateral transverse-sigmoid venous sinus stenosis and left mildly hypoplastic transverse sinus. Venous sinus manometry and possible stenting was requested. PROCEDURE: 1. Diagnostic cerebral angiogram 2. Ultrasound-guided arterial and venous access 3. Venous sinus manometry 4. Cerebral venous sinus stenting 5. Followup cerebral angiogram TIME OUT TIME: 1149 PROCEDURE START TIME: 1150 PROCEDURE END TIME: 1330 ATTENDING: Chula Morton MD DRUG ABUSE COUNSELOR (FELLOW): Austin Bustamante MD ANGIOGRAPHY MATERIALS: Guidewire: 0.035 inch angled tapered Glidewire Arterial: Diagnostic catheter: 5 Ivorian Sutton catheter catheter Venous: Diagnostic catheter: 5 Ivorian Vert Catheter Guide catheter: 8 Fr x 90 cm Cerebase DA guide sheath Intermediate catheter: NA Microcatheter: 0.021 Headway 21 microcatheter Microwire: Fathom 16; Choice 0.014 mm x 300 cm exchange length microwire Stent: Zilver 9mm x 60mm stent Post-Dilation Balloon: Viatrac 14 Plus 7 mm x 20 mm. Fluoroscopic Radiation Summary: Plane A, Air Kerma: 1086.0 mGy Plane B, Air Kerma: 194.2 mGy Dose Area Product (DAP): Fluoro time: 46:12 min:sec Radiation dose exceed 5 Gy: No If radiation dose exceeded 5 Gy, was counseling and instructional brochure provided:N/A Contrast arterial: 84 ml of OMNIPAQUE 300 ANESTHESIA: DEBBIE was administered intravenously with continuous monitoring by a dedicated anesthesiologist. Pulsed oximetry, cardiopulmonary monitoring and electrocardiography was performed throughout the procedure per anesthesia team. TECHNIQUE: After nidhi discussion of the risks and benefits of the procedure, informed consent was obtained. The patient demographics, procedure to be performed, patient position, and equipment to be used were confirmed between the performing physicians, anesthesia team and interventional neuroradiology team. The patient was brought to the angiography suite and placed in supine position. After respiratory and hemodynamic monitoring was established and DEBBIE induced, the right radial and bilateral groins were prepped and draped in the usual standard fashion The Right radial artery access site was localized 2 cm proximal to the radial styloid process. The artery was assessed using ultrasound: Right radial artery: Normal and patent. The right radial artery was found to be sufficient for transradial access. A permanent image of the artery was archived. The artery was then accessed using Seldinger technique under ultrasound guidance. A 5 Ivorian Prelude IDeal sheath introducer sheath was inserted and connected to heparinized saline flush. A vasodilatory medication infusion consisting of nitroglycerine, verapamil, and heparin was administered intra-arterially through the radial sheath over 2 minutes After fluoroscopic localization of the right femoral head, the vein was visualized with ultrasound. Right common femoral vein: normal and patent. The right femoral vein was found to be sufficient for transfemoral access. A permanent image of the vein was archived. 1% lidocaine was administered for local anesthesia. Vascular access was then obtained in the vein utilizing a standard 4 Fr micropuncture set, under direct ultrasound visualization followed by a 5 Fr dilator and then Cerebase DA guide sheath with inner dilator. Once in lower IVC, the inner dilator was removed and the guide sheath was connected to heparinized saline flush. A standard diagnostic catheter and wire were then fluoroscopically advanced for selective catheterization of the following vessels via right radial arterial access: Left common carotid artery, cervical views. Standard AP and lateral views. Left common carotid artery, intracranial views. Standard AP, lateral and oblique views. Angiographic imaging was performed at the selected vessel with views as described above. FINDINGS: LEFT COMMON CAROTID ARTERY INJECTION (cervical): DSA images of the left common carotid artery show normal course and caliber. The carotid bifurcation is at C3-4 level. Mild atherosclerotic changes at the carotid bifurcation. The proximal cervical ICA has normal course and caliber without significant atherosclerotic changes. The ECA and the proximal segment of its branches are normal in course and caliber. LEFT COMMON CAROTID ARTERY INJECTION (cranial): DSA images of the left anterior intracranial circulation demonstrate normal course and caliber of the petrous, cavernous and supraclinoid segments of the internal c (more content not included)... Normal [facility] IR NEUROVASCULAR STENTon IR NEUROVASCULAR STENT * * *Final Report* * * DATE OF EXAM: Jul 29 2024 1:30PM [facility] 0780 - IR NEUROVASCULAR STENT / PROCEDURE REASON: multiple diagnoses * * * * Physician Interpretation * * * * NEUROINTERVENTIONAL REPORT CLINICAL HISTORY: OMAR GOMEZ is a 38-year-old Female who presented with clinical picture and imaging findings consistent with Idiopathic Intracranial Hypertension in the setting of bilateral transverse-sigmoid venous sinus stenosis and left mildly hypoplastic transverse sinus. Venous sinus manometry and possible stenting was requested. PROCEDURE: 1. Diagnostic cerebral angiogram 2. Ultrasound-guided arterial and venous access 3. Venous sinus manometry 4. Cerebral venous sinus stenting 5. Followup cerebral angiogram TIME OUT TIME: 1149 PROCEDURE START TIME: 1150 PROCEDURE END TIME: 1330 ATTENDING: Chula Morton MD DRUG ABUSE COUNSELOR (FELLOW): Austin Bustamante MD ANGIOGRAPHY MATERIALS: Guidewire: 0.035 inch angled tapered Glidewire Arterial: Diagnostic catheter: 5 Ivorian Sutton catheter catheter Venous: Diagnostic catheter: 5 Ivorian Vert Catheter Guide catheter: 8 Fr x 90 cm Cerebase DA guide sheath Intermediate catheter: NA Microcatheter: 0.021 Headway 21 microcatheter Microwire: Fathom 16; Choice 0.014 mm x 300 cm exchange length microwire Stent: Zilver 9mm x 60mm stent Post-Dilation Balloon: Viatrac 14 Plus 7 mm x 20 mm. Fluoroscopic Radiation Summary: Plane A, Air Kerma: 1086.0 mGy Plane B, Air Kerma: 194.2 mGy Dose Area Product (DAP): Fluoro time: 46:12 min:sec Radiation dose exceed 5 Gy: No If radiation dose exceeded 5 Gy, was counseling and instructional brochure provided:N/A Contrast arterial: 84 ml of OMNIPAQUE 300 ANESTHESIA: DEBBIE was administered intravenously with continuous monitoring by a dedicated anesthesiologist. Pulsed oximetry, cardiopulmonary monitoring and electrocardiography was performed throughout the procedure per anesthesia team. TECHNIQUE: After nidhi discussion of the risks and benefits of the procedure, informed consent was obtained. The patient demographics, procedure to be performed, patient position, and equipment to be used were confirmed between the performing physicians, anesthesia team and interventional neuroradiology team. The patient was brought to the angiography suite and placed in supine position. After respiratory and hemodynamic monitoring was established and DEBBIE induced, the right radial and bilateral groins were prepped and draped in the usual standard fashion The Right radial artery access site was localized 2 cm proximal to the radial styloid process. The artery was assessed using ultrasound: Right radial artery: Normal and patent. The right radial artery was found to be sufficient for transradial access. A permanent image of the artery was archived. The artery was then accessed using Seldinger technique under ultrasound guidance. A 5 Ivorian Prelude IDeal sheath introducer sheath was inserted and connected to heparinized saline flush. A vasodilatory medication infusion consisting of nitroglycerine, verapamil, and heparin was administered intra-arterially through the radial sheath over 2 minutes After fluoroscopic localization of the right femoral head, the vein was visualized with ultrasound. Right common femoral vein: normal and patent. The right femoral vein was found to be sufficient for transfemoral access. A permanent image of the vein was archived. 1% lidocaine was administered for local anesthesia. Vascular access was then obtained in the vein utilizing a standard 4 Fr micropuncture set, under direct ultrasound visualization followed by a 5 Fr dilator and then Cerebase DA guide sheath with inner dilator. Once in lower IVC, the inner dilator was removed and the guide sheath was connected to heparinized saline flush. A standard diagnostic catheter and wire were then fluoroscopically advanced for selective catheterization of the following vessels via right radial arterial access: Left common carotid artery, cervical views. Standard AP and lateral views. Left common carotid artery, intracranial views. Standard AP, lateral and oblique views. Angiographic imaging was performed at the selected vessel with views as described above. FINDINGS: LEFT COMMON CAROTID ARTERY INJECTION (cervical): DSA images of the left common carotid artery show normal course and caliber. The carotid bifurcation is at C3-4 level. Mild atherosclerotic changes at the carotid bifurcation. The proximal cervical ICA has normal course and caliber without significant atherosclerotic changes. The ECA and the proximal segment of its branches are normal in course and caliber. LEFT COMMON CAROTID ARTERY INJECTION (cranial): DSA images of the left anterior intracranial circulation demonstrate normal course and caliber of the petrous, cavernous and supraclinoid segments of the internal caroti (more content not included)... Normal [facility] Urinalysis complete panel (U )on 07-29-2024 Bacteria LM.HPF (Urine sed) [#/Area] Negative Normal Negative [facility] Comment on above: Order Comment: Speci men Type: URINE SPECIMEN Ordering Facility: [facility] Address: [address] [place] [address] Performed By: #### 2 4356-8 #### [facility] CLIA [id number] [address] [place] [address] [place] Bilirubin Ql (U) Negative Normal Negative [facility] Comment on above: Order Comment: Speci men Type: URINE SPECIMEN Ordering Facility: [facility] Address: [address] [place] [address] Performed By: #### 2 4356-8 #### [facility] CLIA [id number] [address] [place] [address] [place] Clarity (Unsp spec) Cloudy Abnormal Clear [facility] Comment on above: Order Comment: Speci men Type: URINE SPECIMEN Ordering Facility: [facility] Address: [address] [place] [address] Performed By: #### 2 4356-8 #### [facility] CLIA [id number] [address] [place] [address] [place] Color (U) Dark Yellow Abnormal Yellow [facility] Comment on above: Order Comment: Speci men Type: URINE SPECIMEN Ordering Facility: [facility] Address: [address] [place] [address] Performed By: #### 2 4356-8 #### [facility] CLIA [id number] [address] [place] [address] [place] Epithelial cells LM.HPF (Urine sed) [#/Area] None Seen Normal [facility] Comment on above: Order Comment: Speci men Type: URINE SPECIMEN Ordering Facility: [facility] Address: [address] [place] [address] Performed By: #### 2 4356-8 #### [facility] CLIA [id number] [address] [place] [address] [place] Glucose Test strip (U) [Mass/Vol] Negative Normal Negative [facility] Comment on above: Order Comment: Speci men Type: URINE SPECIMEN Ordering Facility: [facility] Address: [address] [place] [address] Performed By: #### 2 4356-8 #### [facility] CLIA [id number] [address] [place] [address] [place] Hemoglobin Ql (U) Negative Normal Negative [facility] Comment on above: Order Comment: Speci men Type: URINE SPECIMEN Ordering Facility: [facility] Address: [address] [place] [address] Performed By: #### 2 4356-8 #### [facility] CLIA [id number] [address] [place] [address] [place] Hyaline casts (Urine sed) [#/Area] 0 /[LPF] Normal 0 /LPF [facility] Comment on above: Order Comment: Speci men Type: URINE SPECIMEN Ordering Facility: [facility] Address: [address] [place] [address] Performed By: #### 2 4356-8 #### [facility] CLIA [id number] [address] [place] [address] [place] Ketones Ql (U) Trace Abnormal Negative [facility] Comment on above: Order Comment: Speci men Type: URINE SPECIMEN Ordering Facility: [facility] Address: [address] [place] [address] Performed By: #### 2 4356-8 #### [facility] CLIA [id number] [address] [place] [address] [place] Leukocyte esterase Test strip Ql (U) Negative Normal Negative [facility] Comment on above: Order Comment: Speci men Type: URINE SPECIMEN Ordering Facility: [facility] Address: [address] [place] [address] Performed By: #### 2 4356-8 #### [facility] CLIA [id number] [address] [place] [address] [place] Nitrite Ql (U) Negative Normal Negative [facility] Comment on above: Order Comment: Speci men Type: URINE SPECIMEN Ordering Facility: [facility] Address: [address] [place] [address] Performed By: #### 2 4356-8 #### [facility] CLIA [id number] [address] [place] [address] [place] pH (U) 8.0 [pH] Normal <8.5 [facility] Comment on above: Order Comment: Speci men Type: URINE SPECIMEN Ordering Facility: [facility] Address: [address] [place] [address] Performed By: #### 2 4356-8 #### [facility] CLIA [id number] [address] [place] [address] [place] Protein (U) [Mass/Vol] Negative Normal Negative [facility] Comment on above: Order Comment: Speci men Type: URINE SPECIMEN Ordering Facility: [facility] Address: [address] [place] [address] Performed By: #### 2 4356-8 #### [facility] CLIA [id number] [address] [place] [address] [place] RBC LM.HPF (Urine sed) [#/Area] 3-5 /HPF Abnormal 0-2 /HPF [facility] Comment on above: Order Comment: Speci men Type: URINE SPECIMEN Ordering Facility: [facility] Address: [address] [place] [address] Performed By: #### 2 4356-8 #### [facility] CLIA [id number] [address] [place] [address] [place] Specific gravity (U) [Rel density] 1.018 Normal 1.005-1.030 [facility] Comment on above: Order Comment: Speci men Type: URINE SPECIMEN Ordering Facility: [facility] Address: [address] [place] [address] Performed By: #### 2 4356-8 #### [facility] CLIA [id number] [address] [place] [address] [place] Urobilinogen Ql (U) 1.0 EU/dL Normal 0.2-1.0 EU/dL [facility] Comment on above: Order Comment: Speci men Type: URINE SPECIMEN Ordering Facility: [facility] Address: [address] [place] [address] Performed By: #### 2 4356-8 #### [facility] CLIA [id number] [address] [place] [address] [place] WBC LM.HPF (Urine sed) [#/Area] 0-5 /HPF Normal 0-5 /HPF [facility] Comment on above: Order Comment: Speci men Type: URINE SPECIMEN Ordering Facility: [facility] Address: [address] [place] [address] Performed By: #### 2 4356-8 #### [facility] CLIA [id number] [address] [place] [address] [place] B-HCG [facility] 4 HCG.beta subunit Qn m[IU]/mL Normal <5.0 [facility] Comment on above: Order Comment: Speci men Type: BLOOD SPECIMEN Ordering Facility: [facility] Address: [address] [place] [address] Result Comment: Nega tive Performed By: #### 2 1198-7 #### [facility] CLIA [id number] [address] [place] [address] [place] Basic metabolic 2000 panelon 07-25-2024 Anion gap [Moles/Vol] 12 mmol/L Normal 8-15 [facility] Comment on above: Order Comment: Speci men Type: BLOOD SPECIMEN Ordering Facility: [facility] Address: [address] [place] [address] Performed By: #### 2 4321-2 #### [facility] CLIA [id number] [address] [place] [address] [place] Calcium [Mass/Vol] 8.9 mg/dL Normal 8.5-10.2 [facility] Comment on above: Order Comment: Speci men Type: BLOOD SPECIMEN Ordering Facility: [facility] Address: [address] [place] [address] Performed By: #### 2 4321-2 #### [facility] CLIA [id number] [address] [place] [address] [place] Chloride [Moles/Vol] 109 mmol/L High 98-107 [facility] Comment on above: Order Comment: Speci men Type: BLOOD SPECIMEN Ordering Facility: [facility] Address: [address] [place] [address] Performed By: #### 2 4321-2 #### [facility] CLIA [id number] [address] [place] [address] [place] CO2 [Moles/Vol] 18 mmol/L Low 22-30 [facility] Comment on above: Order Comment: Speci men Type: BLOOD SPECIMEN Ordering Facility: [facility] Address: [address] [place] [address] Performed By: #### 2 4321-2 #### [facility] CLIA [id number] [address] [place] [address] [place] Creatinine [Mass/Vol] 0.67 mg/dL Normal 0.58-0.96 [facility] Comment on above: Order Comment: Speci men Type: BLOOD SPECIMEN Ordering Facility: [facility] Address: [address] [place] [address] Performed By: #### 2 4321-2 #### [facility] CLIA [id number] [address] [place] [address] [place] Creatinine and Glomerular filtration rate.predicted panel (S/P/Bld) 116 mL/min/1.73m??? Normal >=60 [facility] Comment on above: Order Comment: Evaristo griffin Type: BLOOD SPECIMEN Ordering Facility: [facility] Address: [address] [place] [address] Result Comment: Bhavya mated Glomerular Filtration Rate [...] actual GFR. Performed By: #### 2 4321-2 #### [facility] CLIA [id number] [address] [place] [address] [place] Glucose [Mass/Vol] 115 mg/dL High 74-99 [facility] Comment on above: Order Comment: Evaristo griffin Type: BLOOD SPECIMEN Ordering Facility: [facility] Address: [address] [place] [address] Result Comment: The [place] [employer] (ADA) provides guidance for cutoff [...] Standards of Medical Care in Diabetes 2016, [place] [employer]. Diabetes Care. 2016.39(Suppl 1). Performed By: #### 2 4321-2 #### [facility] CLIA [id number] [address] [place] [address] [place] Potassium [Moles/Vol] 4.6 mmol/L Normal 3.7-5.1 [facility] Comment on above: Order Comment: Evaristo griffin Type: BLOOD SPECIMEN Ordering Facility: [facility] Address: [address] [place] [address] Performed By: #### 2 4321-2 #### [facility] CLIA [id number] [address] Sodium [Moles/Vol] 139 mmol/L Normal 136-144 [facility] Comment on above: Order Comment: Speci men Type: BLOOD SPECIMEN Ordering Facility: [facility] Address: [address] [place] [address] Performed By: #### 2 4321-2 #### [facility] CLIA [id number] [address] [place] Urea nitrogen [Mass/Vol] 13 mg/dL Normal 7-21 [facility] Comment on above: Order Comment: Speci men Type: BLOOD SPECIMEN Ordering Facility: [facility] Address: [address] [place] [address] Performed By: #### 2 4321-2 #### [facility] CLIA [id number] [address] OF [facility] CBC panel Auto (Bld)on 07-25 Erythrocyte distribution width (RBC) [Ratio] 15.0 % Normal 11.5-15.0 [facility] Comment on above: Order Comment: Speci men Type: BLOOD SPECIMEN Ordering Facility: [facility] Address: [address] [place] [address] Performed By: #### 5 8410-2 #### [facility] CLIA [id number] [address] [place] Hematocrit (Bld) [Volume fraction] 37.4 % Normal 36.0-46.0 [facility] Comment on above: Order Comment: Speci men Type: BLOOD SPECIMEN Ordering Facility: [facility] Address: [address] [place] [address] Performed By: #### 5 8410-2 #### [facility] CLIA [id number] [address] [place] Hemoglobin (Bld) [Mass/Vol] 11.4 g/dL Low 11.5-15.5 [facility] Comment on above: Order Comment: Speci men Type: BLOOD SPECIMEN Ordering Facility: [facility] Address: [address] [place] [address] Performed By: #### 5 8410-2 #### [facility] CLIA [id number] [address] MCH (RBC) [Entitic mass] 23.9 pg Low 26.0-34.0 [facility] Comment on above: Order Comment: Speci men Type: BLOOD SPECIMEN Ordering Facility: [facility] Address: [address] [place] [address] Performed By: #### 5 8410-2 #### [facility] CLIA [id number] [address] MCHC (RBC) [Mass/Vol] 30.5 g/dL Normal 30.5-36.0 [facility] Comment on above: Order Comment: Speci men Type: BLOOD SPECIMEN Ordering Facility: [facility] Address: [address] [place] [address] Performed By: #### 5 8410-2 #### [facility] CLIA [id number] [address] MCV (RBC) [Entitic vol] 78.4 fL Low 80.0-100.0 [facility] Comment on above: Order Comment: Speci men Type: BLOOD SPECIMEN Ordering Facility: [facility] Address: [address] [place] [address] Performed By: #### 5 8410-2 #### [facility] CLIA [id number] [address] Nucleated RBC (Bld) [#/Vol] 10*3/uL Normal <0.01 [facility] Comment on above: Order Comment: Speci men Type: BLOOD SPECIMEN Ordering Facility: [facility] Address: [address] [place] [address] Performed By: #### 5 8410-2 #### [facility] CLIA [id number] [address] Platelet mean volume (Bld) [Entitic vol] 9.0 fL Normal 9.0-12.7 [facility] Comment on above: Order Comment: Speci men Type: BLOOD SPECIMEN Ordering Facility: [facility] Address: [address] [place] [address] Performed By: #### 5 8410-2 #### [facility] CLIA [id number] [address] [place] Platelets (Bld) [#/Vol] 332 10*3/uL Normal 150-400 [facility] Comment on above: Order Comment: Speci men Type: BLOOD SPECIMEN Ordering Facility: [facility] Address: [address] [place] [address] Performed By: #### 5 8410-2 #### [facility] CLIA [id number] [address] [place] RBC (Bld) [#/Vol] 4.77 10*6/uL Normal 3.90-5.20 [facility] Comment on above: Order Comment: Speci men Type: BLOOD SPECIMEN Ordering Facility: [facility] Address: [address] [place] [address] Performed By: #### 5 8410-2 #### [facility] CLIA [id number] [address] [place] WBC (Bld) [#/Vol] 10.03 10*3/uL Normal 3.70-11.00 [facility] Comment on above: Order Comment: Speci men Type: BLOOD SPECIMEN Ordering Facility: [facility] Address: [address] [place] [address] Performed By: #### 5 8410-2 #### [facility] CLIA [id number] [address] CONFIRM BLOOD TYPEon 024 ABO O Normal [facility] Comment on above: Order Comment: Speci men Type: BLOOD SPECIMEN Ordering Facility: [facility] Address: [address] [place] [address] Performed By: #### C ONABO #### [facility] CLIA [id number] [address] [place] Rh Nom (Bld) Positive Normal [facility] Comment on above: Order Comment: Speci men Type: BLOOD SPECIMEN Ordering Facility: [facility] Address: [address] [place] [address] Performed By: #### C ONABO #### [facility] CLIA [id number] [address] [place] [address] [place] HISTORY PHYSICALon HISTORY PHYSICAL HNO ID: [id number] Author: JENISE FAM APRN.CNP Service: ? Author Type: Nurse Practitioner Type: H&P Filed: 07/25/2024 15:44 Note Text: [facility] HISTORY AND PHYSICAL EXAMINATION SERVICE DATE: 07/25/2024 SERVICE TIME: 11:24 AM PRIMARY CARE PHYSICIAN: No primary care provider on file. Assessment Patient has the following medical conditions which may affect aidan-operative course: Migraine with aura and without status migrainosus, not intractable Assessment: R/t her IIH. Following with Dr. Harris, intermittent episodes. Hypertension Assessment: Stable, no rx. Follows with PCP. Last 3 Encounter BP Readings: Date: BP: 07/25/2024 135/89 06/03/2024 164/76 05/15/2024 150/90[Pt here to drive pt home[ PTSD (post-traumatic stress disorder) Assessment: Compliant on rx. Follows PCP. Denies any medical related triggers. Obesity due to excess calories without serious comorbidity Assessment: Body mass index is 39.5 kg/m?. Major depressive disorder Assessment: complaint on mood stablizers, follows PCP. Difficult intravenous access Assessment: Advised adequate hydration, noted to have difficulty in the past. Denied any use of central lines placed in the past. US use recommended. [place] Activity Status Index: METS: Walk indoors, such as around the house (1.75 METs) Do light work around the house, such as dusting or washing dishes (2.70 METs) Take care of self; that is eating, dressing, bathing, using the toilet (2.75 METs) Walk a block or two on level ground (2.75 METs) Do moderate work around the house, such as vacuuming, sweeping floors, or carrying in groceries (3.50 METs) Do yardwork, such as raking leaves, weeding, or pushing a power mower (4.50 METs) Have sexual relations (5.25 METs) Climb a flight of stairs or walk up a hill (5.50 METs) DASI Score: 28.7 Patient denies any chest pain or undue shortness of breath with the above physical activity. Clinical Frailty Scale: 3. Well, with treated comorbid disease STOP-Bang Score: Has or is being treated for high blood pressure BMI greater than 35 kg/m2 Denies snoring loudly Denies feeling tired, fatigued, or sleepy during the daytime Has not been observed to stop breathing or choking/gasping during sleep Patient 50 years old or younger Does not have a large neck Non-male patient STOP-Bang Score: 2 ANESTHESIA FINDINGS: Intubation History: No history of difficult intubation. No abnormal airway history Significant Anesthesia Considerations: potential difficult IV/vein access Airway History: No history of difficult airway No abnormal airway history I - PHYSICAL EVALUATION AIRWAY Patient intubated: No. Tracheostomy tube not present Mallampati: III. TM distance: >3 FB. Neck ROM: full ROM without neurological symptoms. Mouth opening: adequate. Short neck: no. Thick neck: no Microretrognathia/Micronagt hia/Recessed Chin: No DENTAL Dental findings: teeth intact. II - ANESTHESIA PLAN Anesthetic plan additional comments: *PACC/TCI - anesthesia choice. Beta Son Monitoring Plan Post Procedure Analgesic Plan Prepared for Surgery: optimally prepared for surgery, pending [see comment]. ASA and plavix okay to continue per neurology from prior TE Surgeon labs pending ADDENDUM: July 25, 2024 3:44 PM Labs and/or EKG reviewed and acceptable for upcoming procedure CONSULTS: Patient does not require consults for optimization at this time Planned Anesthetic: anesthesia choice The Following Tests/Procedures Have Been Initiated: No orders of the defined types were placed in this encounter. REASON FOR VISIT: Omar Gomez is a 38 year old female who is scheduled for Procedure(s): SELECTIVE CATHETER PLACEMENT EACH INTRACRANIAL BRANCH OF THE INTERNAL CAROTID OR VERTEBRAL ARTERIES UNILATERAL W/ ANGIOGRAPHY OF THE SELECTED VESSEL CIRCULATION AND ALL ASSOCIATED RADIOLOGICAL SUPERVISION AND INTERPRETATION (Bilateral) TRANSCATH PLCMNT OF INTRACRANIAL INTRAVASCULAR STENT (Right) at the request of Chula Ortiz MD for consultation. My final recommendation will be communicated back to the requesting physician by way of shared medical record or letter. Subjective The patient has the following: COVID-19 Immunization Status Overdue - Covid-19 Vaccine ( season) Never done No completion, postpone, frequency change, or communication history exists for this topic. CHIEF COMPLAINT: pre op HPI: Patient is a 38 year old female presenting with a hx of IIH for years, since 2015. Reports having visual related symptoms, memory difficulty, dropping objects, migraines. Denies hx of stroke or seizures. Has tried conservative methods with little relief. Patient denies other specific radiating, alleviating, or aggravating factors. REVIEW OF SYSTEMS: General: No weight loss, malaise or fevers. N (more content not included)... [facility] TYPE AND SCREEN,30 DAYon ABO O [facility] Comment on above: Order Comment: Speclydia griffin Type: BLOOD SPECIMEN Ordering Facility: [facility] Address: [address] [place] [address] Performed By: #### T SCR30 #### [facility] CLIA [id number] [address] [place] Rh Nom (Bld) Positive [facility] Comment on above: Order Comment: Speci gaby Type: BLOOD SPECIMEN Ordering Facility: [facility] Address: [address] [place] [address] Performed By: #### T SCR30 #### [facility] CLIA [id number] [address] [place] .Auto Diffon 07-24-2024 Basophil, Absolute 0.1 10 3/mcL Normal 0.0-0.2 [facility] Comment on above: Performed By: #### U A, PREGU, UAMICAO #### [facility] [address] [place], [place] [address] Basophils/100 WBC (Bld) 0.8 % Normal 0.0-2.5 [facility] Comment on above: Performed By: #### U A, PREGU, UAMICAO #### [facility] [address] [place], [place] [address] Eosinophil, Absolute 0.2 10 3/mcL Normal 0.0-0.7 [facility] Comment on above: Performed By: #### U A PREGU UAMICAO #### [address] [address] Eosinophils/100 WBC (Bld) 1.5 % Normal 0.0-7.0 [facility] Comment on above: Performed By: #### U A PREGU UAMICAO #### [address] [address] Lymphocyte, Absolute 2.5 10 3/mcL Normal 0.9-4.3 [facility] Comment on above: Performed By: #### U Gris PREGU UAMICAO #### [address] [address] Lymphocytes/100 WBC (Bld) 21.7 % Normal 20.0-40.0 [facility] Comment on above: Performed By: #### BAKARI Josue UAMICAO #### [address] [address] Monocyte, Absolute 0.8 10 3/mcL Normal 0.1-1.4 [facility] Comment on above: Performed By: #### BAKARI Josue UAMICAO #### [address] [address] Monocytes/100 WBC (Bld) 7.1 % Normal 2.0-13.0 [facility] Comment on above: Performed By: #### U JONA LandryU UAMICAO #### [address] [address] Neutrophils/100 WBC (Bld) 68.9 % Normal 50.0-75.0 [facility] Comment on above: Performed By: #### U BAKARI Landry UAMICAO #### [address] [address] .GFRon 07-24-2024 GFR 76 ml/min/1.73sqm Normal [facility] Comment on above: Result Comment: GFR [...] 15 mL/min/1.73 square meters Performed By: #### U A PREGU, UAMICAO #### [address] [address] GFR Non- 63 ml/min/1.73sqm Normal [facility] Comment on above: Result Comment: GFR [...] 15 mL/min/1.73 square meters Performed By: #### U A PREGU, UAMICAO #### [address] [address] .MDWon 07-24-2024 Monocyte Distribution Width 17.71 Normal 0.00-20.00 [facility] Comment on above: Result Comment: For ED adult patients suspected of sepsis, MDW<=20.0 does not rule out sepsis or risk of sepsis Performed By: #### U A, PREGU, UAMICAO #### [address] [address] .NEUABSon 07-24-2024 Neutrophil, Absolute 8.0 10 3/mcL Normal 2.3-8.1 [facility] Comment on above: Performed By: #### U A, PREGU, UAMICAO #### [place] [address] .Urinalysis Microscopic (AO) on 07-24-2024 UA Bacteria 1+ /hpf Abnormal [facility] Comment on above: Performed By: #### U A, PREGU, UAMICAO #### [place] [address] UA CA Ox Crystal 2+ /hpf Normal [facility] Comment on above: Performed By: #### U A, PREGU, UAMICAO #### [place] [address] UA RBC 0-5 Abnormal None Seen [facility] Comment on above: Performed By: #### U A, PREGU, UAMICAO #### [place] [address] UA Squam Epithelial 15-25 Abnormal None Seen [facility] Comment on above: Performed By: #### U A, PREGU, UAMICAO #### [place] [address] UA WBC 0-5 Abnormal None Seen [facility] Comment on above: Performed By: #### U A, PREGU, UAMICAO #### [place] [address] BMPon 07-24-2024 BUN/Creatinine Ratio 13 ratio Normal 7-27 [facility] Comment on above: Performed By: #### U A, PREGU, UAMICAO #### [place] [address] Calcium [Mass/Vol] 8.7 mg/dL Normal 8.4-10.2 [facility] Comment on above: Performed By: #### U A, PREGU, UAMICAO #### [place] [address] Chloride [Moles/Vol] 104 mmol/L Normal 98-107 [facility] Comment on above: Performed By: #### U Gris PREGU UAMICAO #### [address] [address] CO2 [Moles/Vol] 27 mmol/L Normal 22-29 [facility] Comment on above: Performed By: #### U Gris PREGU UAMICAO #### [place] [id number] Creatinine [Mass/Vol] 1.00 mg/dL Normal 0.55-1.02 [facility] Comment on above: Result Comment: Test ing performed on Siemens Dimension EXL analyzer using a modified kinetic Gino technique. Performed By: #### BAKARI Josue UAMICAO #### [place] [address] Electrolyte Balance 11.0 mEq/L Normal 4.0-15.0 [facility] Comment on above: Performed By: #### BAKARI Josue UAMICAO #### [place] [address] Glucose [Mass/Vol] 105 mg/dL Normal 70-105 [facility] Comment on above: Performed By: #### JONA JosueU UAMICAO #### [place] [address] Potassium [Moles/Vol] 4.1 mmol/L Normal 3.5-5.1 [facility] Comment on above: Performed By: #### U Gris PREGU UAMICAO #### [place] [address] Sodium [Moles/Vol] 142 mmol/L Normal 136-145 [facility] Comment on above: Performed By: #### U Gris PREGU UAMICAO #### [place] [id number] Urea nitrogen [Mass/Vol] 13 mg/dL Normal 7-18 [facility] Comment on above: Performed By: #### U Gris PREGU UAMICAO #### [place] [address] CBCon 07-24-2024 Erythrocyte distribution width (RBC) [Ratio] 15.8 % High 11.5-15.5 [facility] Comment on above: Performed By: #### BAKARI Josue UAMICPEDRITO #### [place] [id number] [place], [place] [address] Hematocrit (Bld) [Volume fraction] 37.4 % Normal 34.0-46.0 [facility] Comment on above: Performed By: #### BAKARI Josue UAMICAO #### [place] [address] Hgb 12.2 G/dL Normal 12.0-16.0 [facility] Comment on above: Performed By: #### BAKARI Josue UAMICAO #### [address] [address] MCH (RBC) [Entitic mass] 24.4 pg Low 27.0-33.0 [facility] Comment on above: Performed By: #### BAKARI Josue UAMICPEDRITO #### [address] [address] MCHC 32.5 G/dL Normal 32.0-36.0 [facility] Comment on above: Performed By: #### BAKARI Josue UAMICAO #### [address] [address] MCV (RBC) [Entitic vol] 74.9 fL Low 80.0-99.0 [facility] Comment on above: Performed By: #### BAKARI Josue UAMICAO #### [address] [address] Platelet 347 10 3/mcL Normal 150-450 [facility] Comment on above: Performed By: #### U Gris PREGU UAMICAO #### [address] [address] Platelet mean volume (Bld) [Entitic vol] 7.1 fL Normal 6.6-10.5 [facility] Comment on above: Performed By: #### U A, PREGU, UAMICAO #### [facility] [address] [place], [place] [address] RBC 4.99 10 6/mcL Normal 4.10-5.30 [facility] Comment on above: Performed By: #### U A, PREGU, UAMICAO #### [facility] [address] [place], [place] [address] WBC 11.7 10 3/mcL High 4.5-10.8 [facility] Comment on above: Performed By: #### U A, PREGU, UAMICAO #### [facility] [address] [place], [place] [address] [facility] 07-24-[facility] OMAR SERRANO ([id number]) 1985 F Date Time Provider Department 07/24/24 CHULA MORTON NECVS8 During your visit today, we recorded the following information about you: Omar Butcher 07/24/2024 9:11 AM Signed CV PHONE Name of caller : Omar Relationship to patient : Self If not self Will need patient permission to release results or disclose health information with called documented in fy. Patient identified by Name and Date of . ( Omar Serrano, 1985). Yes Number to return call [phone] Reason for Call: Symptoms Call: Symptoms: patient called stating she was recently put on blood thinners and can't hardly walk, started 3 days ago and it's worse today, patient also states she has a headache Duration: >48 hours Progression: worse Pain level: 7 on a scale of 0-10. Type of pain (feels like): pressure Frequency: constant Location of pain: head Pharmacy: [facility] Thank you calling [facility] [place]. You will receive a return call within 48 hours ( or 2 business days if close to the weekend). If you feel that this is an urgent issue and needs immediate attention, it is recommended that you contact your primary care provider office or proceed to your nearest Urgent Care Center of Emergency Room ED for evaluation/treatment. Karli Charles RN 07/24/2024 9:20 AM Signed Returned call, pt did not answer, left Vm to call back. Karli Charles RN 07/24/2024 9:37 AM Signed Omar called back. 3 days ago she started having a headache 04/19, took tylenol, became nausea, dizzy and slept all day. Said it helped a little bit with some caffeine. States she cannot walk well, she has to hold onto things to walk because of how severe her dizziness is. (She still performs tasks like making dinner, driving kids to school, cleaning the house) Also has constant nausea. Currently 02/17 SEGOVIA, has not checked her BP in the past few days but thought about it and does not have access to it currently . Has some blurry vision, fatigue tingling in her feet, and photophobia that started today. Thinks she has been getting worse the more she takes it Karli Charles RN 07/24/2024 10:01 AM Signed Spoke with Omar and stated she should go to the ED to be evaluated for SEGOVIA and dizziness with visual problems. She was apprehensive but understood and said OK. Mary Choudhury RN 07/24/2024 12:15 PM Signed Spoke to patient states that she is so dizzy with nausea that she is unable to move. Advised that Dr Morton recommends her to go to ED for evaluation. Patient agreed Allergies As of Date: 07/24/2024 Noted Allergy Reaction TAPE (ADHESIVE TAPE (ROSINS)) 07/18/2013 2 - Rash Comments: EKG tape pleitez skin- other tape gives patient rashes Date Reviewed: 07/02/2024 Reviewed by: Mikael Colón MD - Fully Assessed Reason for Visit: Symptoms [3640] Cmt: patient called stating she was recently put on blood thinners and can't hardly walk, started 3 days ago and it's worse today, patient also states she has a headache Prescriptions as of 07/24/2024 - diazePAM (VALIUM) 5 mg tablet Take 5 mg by mouth every 6 hours as needed for anxiety (Patient took 10mg total). - aspirin 325 mg tablet Take 1 tablet by mouth once daily. - clopidogrel (PLAVIX) 75 mg tablet Take 1 tablet by mouth once daily. - pantoprazole DR (PROTONIX) 40 mg tablet Take 1 tablet by mouth [...] as needed. 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 Normal [facility] CT HEAD OR BRAIN W/O CONTRAS Ton 07-24-2024 CT HEAD OR BRAIN W/O CONTRAST ORIGINAL EXAMINATION: CT OF THE HEAD WITHOUT [id number]/ 5:[address] HEAD/BRAIN WITHOUT CONTRAST EXAM DESCRIPTION: TECHNIQUE: CT of the head was performed without the administration of intravenous contrast. Automated exposure control, iterative reconstruction, and/or weight based adjustment of the mA/kV was utilized to reduce the radiation dose to as low as reasonably achievable. COMPARISON: None available HISTORY: ORDERING SYSTEM PROVIDED HISTORY: Reason for Exam: Altered mental status FINDINGS: The size, density, and morphology of the brain and CSF containing spaces appears normal. There is no evidence of mass, midline shift, hemorrhage, or infract. The ventricles, cortical sulci, and subarachnoid cisterns appear unremarkable. There are no extra-axial fluid collections. No regions of pathologic attenuation are evident. Regions of the orbits and paranasal sinuses included within the field of view are unremarkable. There is no displaced fracture or osseous neoplasm. The extracalvarial soft tissues appear unremarkable. IMPRESSION: No acute intracranial pathology. COMMENT: Changes resultant from ischemia (even significant ischemia) may often be inapparent on CT exam, particularly if imaged early. Additionally, early changes due to neoplastic or inflammatory processes can be subtle to the extent that they are not prospectively noted. Therefore, if symptoms persist, or clinical suspicion for pathology remains, further evaluation may be obtained with MRI. Interpreted by: Leigh Jefferson MD Preliminary Report By: Leigh Jefferson MD Electronically signed By Leigh Jefferson MD Dictated Date: 07/24/2024 5:12:45 PM Prelim Date: 07/24/2024 5:13:58 PM Sign Date: 07/24/2024 5:13:58 PM Ordering Provider: BROOK Edwards [facility] LABORATORYOrdered By: SYSTEM SYSTEM on 07-24-2024 Basophils (Bld) [#/Vol] 0.1 103/mcL Normal 0.0 - 0.2 10^3/mcL AO Workflow SS Basophils/100 WBC (Bld) 0.8 % Normal 0.0 - 2.5 % AO Workflow SS Calcium [Mass/Vol] 8.7 mg/dL Normal 8.4 - 10. 2 mg/dL AO ADM SS Chloride [Moles/Vol] 104 mmol/L Normal 98 - 10 7 mmol/L AO ADM SS CO2 [Moles/Vol] 27 mmol/L Normal 22 - 29 mmol/L AO ADM SS Creatinine [Mass/Vol] 1.00 mg/dL Normal 0.55 - 1.02 mg/dL AO ADM SS Comment on above: Interpretive Data: T esting performed on Siemens Dimension EXL analyzer using a modified kinetic Gino technique. Electrolyte Balance 11.0 mEq/L Normal 4.0 - 15 .0 mEq/L AO ADM SS Eosinophil, Absolute 0.2 103/mcL Normal 0.0 - 0 .7 10^3/mcL AO Workflow SS Eosinophils/100 WBC (Bld) 1.5 % Normal 0.0 - 7.0 % AO Workflow SS Erythrocyte distribution width (RBC) [Ratio] 15.8 % High 11.5 - 15.5 % AO Workflow SS GFR/1.73 sq M.predicted among blacks MDRD (S/P/Bld) [Vol rate/Area] 76 ml/min/1.73sqm Invalid Interpretation Code AO Chemistry S [...] M.predicted among non-blacks MDRD (S/P/Bld) [Vol rate/Area] 63 ml/min/1.73sqm Invalid Interpretation Code AO Chemistry S [...] Disease: Less than 15 mL/min/1.73 square meters Glucose [Mass/Vol] 105 mg/dL Normal 70 - 105 mg/dL AO ADM SS Hematocrit (Bld) [Volume fraction] 37.4 % Normal 34.0 - 46.0 % AO Workflow SS Hemoglobin (Bld) [Mass/Vol] 12.2 G/dL Normal 12.0 - 16.0 G/dL AO Workflow SS Lymphocytes (Bld) [#/Vol] 2.5 103/mcL Normal 0.9 - 4.3 10^3/mcL AO Workflow SS Lymphocytes/100 WBC (Bld) 21.7 % Normal 20.0 - 40.0 % AO Workflow SS MCH (RBC) [Entitic mass] 24.4 pg Low 27.0 - 33.0 pg AO Workflow SS MCHC 32.5 G/dL Normal 32.0 - 36.0 G/dL AO Workflow SS MCV (RBC) [Entitic vol] 74.9 fL Low 80.0 - 99.0 fL AO Workflow SS Monocyte distribution width Auto (Bld) [Entitic vol] 17.71 1 Normal 0.00 - 20.00 AO Workflow SS Comment on above: Result Comment: For ED adult patients suspected of sepsis, MDW<=20.0 does not rule out sepsis or risk of sepsis Monocytes (Bld) [#/Vol] 0.8 103/mcL Normal 0.1 - 1.4 10^3/mcL AO Workflow SS Monocytes/100 WBC (Bld) 7.1 % Normal 2.0 - 13.0 % AO Workflow SS Neutrophils (Bld) [#/Vol] 8.0 103/mcL Normal 2.3 - 8.1 10^3/mcL AO Workflow SS Neutrophils/100 WBC (Bld) 68.9 % Normal 50.0 - 75.0 % AO Workflow SS Platelet mean volume (Bld) [Entitic vol] 7.1 fL Normal 6.6 - 10.5 fL AO Workflow SS Platelets (Bld) [#/Vol] 347 103/mcL Normal 150 - 450 10^3/mcL AO Workflow SS Potassium [Moles/Vol] 4.1 mmol/L Normal 3.5 - 5.1 mmol/L AO ADM SS RBC (Bld) [#/Vol] 4.99 106/mcL Normal 4.10 - 5.3 0 10^6/mcL AO Workflow SS Sodium [Moles/Vol] 142 mmol/L Normal 136 - 145 mmol/L AO ADM SS Urea nitrogen [Mass/Vol] 13 mg/dL Normal 7 - 18 mg/dL AO ADM SS Urea nitrogen/Creatinine [Mass ratio] 13 ratio Normal 7 - 27 ratio AO ADM SS WBC (Bld) [#/Vol] 11.7 103/mcL High 4.5 - 10.8 10^3/mcL AO Workflow SS LABORATORYOrdered By: Irma Mejía on 07-24-2024 Appearance (U) Clear (07/24/24 4:44 PM) Normal Clear AO Auto Urine SS Bilirubin Ql (U) Negative (07/24/24 4:44 PM) Normal Negative AO Auto Urine SS Color (U) Yellow (07/24/24 4:44 PM) Normal AO Auto Urine SS Glucose Test strip (U) [Mass/Vol] Negative Normal Negative AO Auto Urine SS HCG ( test) Ql Negative (07/24/24 4:44 PM) Normal AO Manual Urine SS Hemoglobin Auto test strip (U) [Mass/Vol] Negative (07/24/24 4:44 PM) Normal Negative AO Auto Urine SS Ketones Ql (U) Trace mg/dL Invalid Interpretation Code Negative AO Auto Urine SS test (u) int Not detected Invalid Interpretation Code AO Manual Urine SS UA Leuk Est Negative (07/24/24 4:44 PM) Normal Negative AO Auto Urine SS UA Nitrite Negative (07/24/24 4:44 PM) Normal Negative AO Auto Urine SS UA pH 5.5 (07/24/24 4:44 PM) Normal 5.0 - 8.0 AO Auto Urine SS UA Protein 30 mg/dL Normal Negative AO Auto Urine SS UA Spec Grav >=1.030 *ABN* (07/24/24 4:44 PM) Invalid Interpretation Code 1.015-1.025 AO Auto Urine SS UA Specimen Type Clean Catch (07/24/24 4:44 PM) Normal AO Auto Urine SS UA Urobilinogen 0.2 E.U./dL Normal 0.2-1.0 AO Auto Urine SS LABORATORYOrdered By: Daniela Mcleod on 07-24-2024 Bacteria LM.HPF (Urine sed) [#/Area] 1 /[HPF] Invalid Interpretation Code AO Auto Urine SS Calcium oxalate crystals LM.HPF (Urine sed) [#/Area] 2 /[HPF] Normal AO Auto Urine SS UA RBC 0-5 /HPF Invalid Interpretation Code None Seen AO Auto Urine SS UA Squam Epithelial 15-25 /HPF Invalid Interpretation Code None Seen AO Auto Urine SS WBC LM.HPF (Urine sed) [#/Area] 0-5 /HPF Invalid Interpretation Code None Seen AO Auto Urine SS PREGUon 07-24-2024 HCG ( test) Ql (U) Negative Normal [facility] Comment on above: Performed By: #### U A, PREGU, UAMICAO #### [place] [address] test (u) int Not detected Invalid Interpretation Code [facility] Comment on above: Performed By: #### U A, PREGU, UAMICAO #### [place] [address] UAon 07-24-2024 Color (U) Yellow Normal [facility] Comment on above: Performed By: #### U A, PREGU, UAMICAO #### [place] [address] Glucose (U) [Mass/Vol] Negative Normal Negative [facility] Comment on above: Performed By: #### U A, PREGU, UAMICAO #### [address] [address] Ketones Ql (U) Trace Abnormal Negative [facility] Comment on above: Performed By: #### U A, PREGU, UAMICAO #### [address] [address] UA Appear Clear Normal Clear [facility] Comment on above: Performed By: #### U A, PREGU, UAMICAO #### [address] [address] UA Blood Negative Normal Negative [facility] Comment on above: Performed By: #### U A, PREGU, UAMICAO #### [address] [address] UA Leuk Est Negative Normal Negative [facility] Comment on above: Performed By: #### U A, PREGU, UAMICAO #### [place] [address] UA Nitrite Negative Normal Negative [facility] Comment on above: Performed By: #### U A, PREGU, UAMICAO #### [place] [address] UA pH 5.5 Normal 5.0 - 8.0 [facility] Comment on above: Performed By: #### U A, PREGU, UAMICAO #### [place] [address] UA Protein 30 mg/dL Normal Negative [facility] Comment on above: Performed By: #### U A, PREGU, UAMICAO #### [place] [address] UA Spec Grav >=1.030 Abnormal 1.015-1.025 [facility] Comment on above: Performed By: #### U A, PREGU, UAMICAO #### [place] [address] UA Specimen Type Clean Catch Normal [facility] Comment on above: Performed By: #### U A, PREGU, UAMICAO #### [place] [address] UA Urobilinogen 0.2 E.U./dL Normal 0.2-1.0 [facility] Comment on above: Performed By: #### U A, PREGU, UAMICAO #### [place] [address] Urobilinogen (U) [Mass/Vol] Negative Normal Negative [facility] Comment on above: Performed By: #### U A, PREGU, UAMICAO #### [place] [address] Pancho 07-15-2024 ZEUS Telephone (NSCAMN) ZACHOMAR Alisia ([id number]) 1985 F Date Time Provider Department 07/15/24 NICOLAS LOPEZ [facility] During your visit today, we recorded the following information about you: Jonathan Aranda RN 07/15/2024 9:15 AM Signed Called and spoke with patient via phone. Notified her that Dr. Lopez was urgently called to the OR this morning and her appointment would need to be rescheduled. Pt accepted new virtual visit date of 07/23/24 at 10:45am. Allergies As of Date: 07/15/2024 Noted Allergy Reaction TAPE (ADHESIVE TAPE (ROSINS)) 07/18/2013 2 - Rash Comments: EKG tape pleitez skin- other tape gives patient rashes Date Reviewed: 07/02/2024 Reviewed by: Mikael Colón MD - Fully Assessed Prescriptions as of 07/15/2024 - diazePAM (VALIUM) 5 mg tablet Take 5 mg by mouth every 6 hours as needed for anxiety (Patient took 10mg total). - aspirin 325 mg tablet Take 1 tablet by mouth once daily. - clopidogrel (PLAVIX) 75 mg tablet Take 1 tablet by mouth once daily. - pantoprazole DR (PROTONIX) 40 mg tablet Take 1 tablet by mouth [...] as needed. 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 Encounter Status:Closed by JONATHAN ARANDA on 07/15/24 Normal [facility] Abdomen/Pelvis without Conto n 07-02-2024 Abdomen/Pelvis without Cont [facility] Imaging Services [address] [place] [address] [id number] Abdomen/Pelvis without Cont MR#: [id number] Acct: [id number] Name: OMAR GOMEZ Rep #: [id number] : 1985 F 38 From: Gary Hatch DO PCP: Care Physician,No Primary Status: REG ER Study: Abdomen/Pelvis without Cont Date of Exam: 06/11 12/01 Exam# [id number] Ordering Dr: Herve Awad DO [id number] STUDY: CT ABDOMEN AND PELVIS WITHOUT CONTRAST REASON FOR EXAM: Female, 38 years old. Rt flank pain r/o Kidney Stone RADIATION DOSAGE (If Supplied By Facility): CTDIvol = ( 21.88 ) mGy, DLP = ( 1147.80 ) mGycm TECHNIQUE: Transaxial images were obtained from the dome of the diaphragm to the symphysis pubis without oral contrast, and without intravenous contrast. Sagittal and coronal images were reconstructed. Individualized dose optimization techniques were used for this CT. COMPARISON: None. FINDINGS: The visualized lung bases are unremarkable. The visualized portions of the heart are within normal limits. Normal liver. Status post cholecystectomy. No dilatation of the extrahepatic biliary system. Enlarged spleen. Normal pancreas. Normal bilateral adrenal glands. Normal right kidney. Normal left kidney. Normal visualized stomach. Normal small intestine. Normal colon. The appendix is visualized and appears normal. Normal abdominal aorta. Normal inferior vena cava. Normal retroperitoneum. Normal urinary bladder. Normal abdominal wall. Normal osseous structures. CT/Abdomen/Pelvis without Cont IMPRESSION: Enlarged spleen. No renal stones or hydronephrosis. Electronically Signed: Gary Hatch DO at 21:01 EDT Reading Location ID and State: [facility] [place] Tel [phone], Service support , CC: Dr. Herve Awad DO; No Primary Care Physician Test Man: Signed Normal [facility] Basic Metabolic Profile (BMP )on 07-02-2024 BUN/CRE 20.1 RATIO High 06-29 [facility] Comment on above: Performed By: #### L 700.6800, L100.0100, L500.2500 #### [facility] [place] [facility] [address] [place], [address] CA,Total 8.8 mg/dL Normal 8.5-10.1 [facility] [place] [facility] Comment on above: Performed By: #### L 700.6800, L100.0100, L500.2500 #### [facility] [place] [facility] [address] [place], [address] Chloride [Moles/Vol] 113 mmol/L High 98-107 [facility] Comment on above: Performed By: #### L 700.6800, L100.0100, L500.2500 #### [facility] [place] [facility] [address] [place], [address] CO2 [Moles/Vol] 21.0 mmol/L Normal 21.0-32.0 [facility] [place] [facility] Comment on above: Performed By: #### L 700.6800, L100.0100, L500.2500 #### [facility] [place] [facility] [address] [place], [address] Creatinine [Mass/Vol] 0.84 mg/dL Normal 0.55-1.02 [facility] [place] [facility] Comment on above: Result Comment: The validity of the calculated GFR GFRAA in patients over 70 years has not been determined. Clinical correlation is essential. Performed By: #### L 700.6800, L100.0100, L500.2500 #### [facility] [place] [facility] [address] [place], [address] ECRCL 114.06 ml/min Normal [facility] [place] [facility] Comment on above: Performed By: #### L 700.6800, L100.0100, L500.2500 #### [facility] [place] [facility] [address] [place], [address] EST GFR - AA 98 mL/min Normal >60 [facility] [place] [facility] Comment on above: Result Comment: Afri can Yemeni GFR Calc Performed By: #### L 700.6800, L100.0100, L500.2500 #### [facility] [place] [facility] [address] [place], [address] GAP 7 Normal 5-15 [facility] [place] [facility] Comment on above: Performed By: #### L 700.6800, L100.0100, L500.2500 #### [facility] [place] [facility] [address] [place], [address] GFR/1.73 sq M.predicted among non-blacks MDRD (S/P/Bld) [Vol rate/Area] 81 mL/min/{1.73_m2} Normal >60 [facility] [place] [facility] Comment on above: Result Comment: Non- GFR Calc Performed By: #### L 700.6800, L100.0100, L500.2500 #### [facility] [place] [facility] [address] [place], [address] Glucose [Mass/Vol] 116 mg/dL High 74-106 [facility] Comment on above: Result Comment: Fast ing Glucose result from 100 to 125 mg/dL suggests IMPAIRED HOMEOSTASIS per A.D.A. criteria. Performed By: #### L 700.6800, L100.0100, L500.2500 #### [facility] [place] [facility] [address] [place], [address] Potassium [Moles/Vol] 3.9 mmol/L Normal 3.5-5.1 [facility] [place] [facility] Comment on above: Performed By: #### L 700.6800, L100.0100, L500.2500 #### [facility] [place] [facility] [address] [place], [address] Sodium [Moles/Vol] 140 mmol/L Normal 136-145 [facility] Comment on above: Performed By: #### L 700.6800, L100.0100, L500.2500 #### [facility] [place] [facility] [address] [place], [address] Urea nitrogen [Mass/Vol] 17 mg/dL Normal 7-18 [facility] [place] [facility] Comment on above: Performed By: #### L 700.6800, L100.0100, L500.2500 #### [facility] [place] [facility] [address] [place], [address] CBC W/Diff, Automatedon 10-2 PLT EST ADEQUATE Normal ADEQ [facility] [place] [facility] Comment on above: Performed By: #### L 700.6800, L100.0100, L500.2500 #### [facility] [place] [facility] [address] [place], [address] SMEAR COMMENT SCANNED Normal [facility] Comment on above: Performed By: #### L 700.6800, L100.0100, L500.2500 #### [facility] [place] [facility] [address] [place], [address] Emergency Department Summary on 07-02-2024 Emergency Department Summary [facility] Medical Records Department [address] [place] [address] Emergency Department Summary 07/02/24 MR#: [id number] Acct: [id number] Name: OMAR GOMEZ Rep #: [id number] : 1985 38 From: Herve Awad DO PCP: Care Physician,No Primary Status:DEP ER Location: ED HPI HPI - Female History of Present Illness Chief Complaint: Flank Pain PFSH PFSH Medical History Left ureteral calculus Bruising Easy bruising History of IBS Heartburn Shortness of breath on exertion Non-smoker History of echocardiogram Cardiology follow-up encounter Generalized anxiety disorder PTSD (post-traumatic stress disorder) Major depressive disorder, recurrent severe without psychotic features Migraines Kidney stones Ovarian cyst Home Medications ???Medication ???Instructions ???Recorded ???Last Taken ???Type acetazolamide 500 mg 500 mg PO BID PSEUDOTUMOR 06/23/21 Unknown History capsule,extended release phenazopyridine 200 mg tablet 200 mg PO TID 6 doses #6 tabs 06/26/23 Unknown Rx (Pyridium) naproxen 500 mg tablet 500 mg PO BID PRN #14 tabs 12/14/23 Unknown Rx aripiprazole 2 mg tablet 2 mg PO QHS 07/02/24 Unknown History ondansetron 4 mg disintegrating 4 mg PO Q8H PRN PRN Nausea #10 tabs 07/02/24 Unknown Rx tablet Allergy/AdvReac Type Severity Reaction Status Date / Time adhesive tape AdvReac Other Verified 04/28/24 09:45 Surgical History Hx of cystoscopy History of urethral stent Hx of dilation and curettage Hx of tympanostomy tubes History of section History of umbilical hernia repair History of cholecystectomy Social History household members: spouse Smoking Status: Never smoker EXAM Physical Exam Const Vital Signs: 07/02/24 18:24 07/02/24 20:43 07/02/24 21:30 Temperature 97.9 F 97.8 F Temperature Source Oral Pulse Rate 88 77 87 Respiratory Rate 16 18 16 Blood Pressure 153/104 H 134/78 H Blood Pressure Mean 120 96 Pulse Ox 98 98 100 Oxygen Delivery Method Room Air MDM MDM MDM Narrative Medical decision making narrative: HISTORY OF PRESENT ILLNESS: 38-year-old female presents with right flank pain that began 1 week ago. She also endorses urinating blood. No fever, no syncope. No smoking history. No family secondary to disease or aneurysms REVIEW OF SYSTEMS: Pertinent positives: Flank pain, hematuria Pertinent negatives: Vomiting, fever PHYSICAL EXAM: Nursing triage notes reviewed, Vital signs reviewed Constitutional: please see mdm HENT: MMM Eyes: Pupils equal round and reactive to light, Extraocular muscles intact Neck: No stridor, no JVD, full neck ROM Lungs: Clear to auscultation, No wheezing or rales. No increased work of breathing, no conversational dyspnea, no accessory muscle use, no nasal flaring. No respiratory distress noted Heart: Regular rate and rhythm, No murmurs, No rubs and No gallops, 2+ distal pulses (radial, femoral, posterior tibial) in all extremities Abdomen: Soft, there is no tenderness, rigidity, rebound or guarding, no obvious peritoneal signs, no palpable pulsatile abdominal masses, no auscultated abdominal bruit : No CVAT Extremities: No edema Neuro: No focal neurological deficits, cranial nerves II through XII intact, 5/5 strength in all extremities. Intact sensation to light touch in all extremities, 2+ reflexes bilateral patella tendons. Normal gait. No ataxia. Skin: No rash or lesions noted MEDICAL DECISION MAKING: Chief Complaint: Flank pain External records reviewed: [Reviewed prior imaging studies: Reviewed CT scan of the abdomen pelvis from January 2024 which showed no obstruction or fluid collections, no k hydronephrosis Factors affecting care: History of kidney stones Social determinants of health: none History obtained from others: none Consults: none [facility] Narrative: Patient was initially hemodynamically stable, afebrile and nontoxic-appearing. Exam with right CVA tenderness I considered the following differential diagnosis: Nephrolithiasis, pyelonephritis, UTI, AAA I obtained a broad lab and imaging workup to further elucidate etiology of the patient's complaints ALL IMAGES (IF OBTAINED) HAVE BEEN PERSONALLY REVIEWED AND INTERPRETED BY MYSELF. CT scan showed no evidence of nephrolithiasis pyelonephritis or AAA CBC leukocytosis suggestive of systemic inflammation, mild anemia, no thrombocytopenia noted BMP without evidence of significant electrolyte abnormalities, no anion gap, no acute kidney injury. Serum test is negative Urinalysis shows no evidence of urinary inflammation sug (more content not included)... Normal [facility] OCT OPTIC NERVE CIRRUS OU (B OTH EYES)on 07-02-2024 [facility] Radiology Study observation (narrative) [facility] ,Serum,hCG Quali.on 07-02-2024 HCG, SERUM QUAL Negative Normal [facility] Comment on above: Performed By: #### L 700.6800, L100.0100, L500.2500 #### [facility] [address] [place], [address] Urinalysis, Completeon 07-02 RBC 0-5 SEEN Normal 0-5 [facility] Comment on above: Order Comment: CLEAN CATCH Performed By: #### L 400.0001 #### [facility] [address] [place], [address] WBC 0-5 SEEN Normal 0-5 [facility] Comment on above: Order Comment: CLEAN CATCH Performed By: #### L 400.0001 #### [facility] [address] [place], [address] EPI,SQUAMOUS 0-5 SEEN Normal 5-10 [facility] Comment on above: Order Comment: CLEAN CATCH Performed By: #### L 400.0001 #### [facility] [address] [place], [address] EPI,TRANSITION 0-5 SEEN Normal 0-5 [facility] Comment on above: Order Comment: CLEAN CATCH Performed By: #### L 400.0001 #### [facility] [address] [place], [place], [id number] BACTERIA 1+ /hpf Normal None Seen [facility] Comment on above: Order Comment: CLEAN CATCH Performed By: #### L 400.0001 #### [facility] [address] [place], [place], [id number] VISUAL FIELD 24-2 OU (BOTH E YES)on 07-02-2024 [facility] Radiology Study observation (narrative) [facility] .Auto Diffon 06-12-2024 Basophil, Absolute 0.1 10 3/mcL Normal 0.0-0.2 [facility] Comment on above: Performed By: #### U A PREGU, UAMICAO #### [address] [address] Basophils/100 WBC (Bld) 1.1 % Normal 0.0-2.5 [facility] Comment on above: Performed By: #### U A PREGU, UAMICAO #### [address] [address] Eosinophil, Absolute 0.1 10 3/mcL Normal 0.0-0.7 [facility] Comment on above: Performed By: #### U A, PREGU, UAMICAO #### [address] [address] Eosinophils/100 WBC (Bld) 0.6 % Normal 0.0-7.0 [facility] Comment on above: Performed By: #### U A, PREGU, UAMICAO #### [address] [address] Lymphocyte, Absolute 3.3 10 3/mcL Normal 0.9-4.3 [facility] Comment on above: Performed By: #### U A, PREGU, UAMICAO #### [address] [address] Lymphocytes/100 WBC (Bld) 33.3 % Normal 20.0-40.0 [facility] Comment on above: Performed By: #### BAKARI Josue UAMICPEDRITO #### [address] [address] Monocyte, Absolute 0.8 10 3/mcL Normal 0.1-1.4 [facility] Comment on above: Performed By: #### BAKARI Josue UAMICPEDRITO #### [address] [address] Monocytes/100 WBC (Bld) 7.8 % Normal 2.0-13.0 [facility] Comment on above: Performed By: #### BAKARI Josue UAJENNI #### [address] [address] Neutrophils/100 WBC (Bld) 57.2 % Normal 50.0-75.0 [facility] Comment on above: Performed By: #### BAKARI Josue UAMICPEDRITO #### [address] [address] .GFRon 06-12-2024 GFR 81 ml/min/1.73sqm Normal [facility] Comment on above: Result Comment: GFR [...] 15 mL/min/1.73 square meters Performed By: #### U BAKARI Landry UAMICAO #### [address] [address] GFR Non- 67 ml/min/1.73sqm Normal [facility] Comment on above: Result Comment: GFR [...] 15 mL/min/1.73 square meters Performed By: #### U A PREGU, UAMICAO #### [place] [address] .MDWon 06-12-2024 Monocyte Distribution Width 17.82 Normal 0.00-20.00 [facility] Comment on above: Result Comment: For ED adult patients suspected of sepsis, MDW<=20.0 does not rule out sepsis or risk of sepsis Performed By: #### U A PREGU, UAMICAO #### [place] [address] .NEUABSon 06-12-2024 Neutrophil, Absolute 5.7 10 3/mcL Normal 2.3-8.1 [facility] Comment on above: Performed By: #### U A, PREGU, UAMICAO #### [place] [address] .Urinalysis Microscopic (AO) on 06-12-2024 UA Bacteria 1+ /hpf Abnormal [facility] Comment on above: Performed By: #### U A, PREGU, UAMICAO #### [place] [address] UA RBC 5-10 Abnormal None Seen [facility] Comment on above: Performed By: #### U A, PREGU, UAMICAO #### [place] [address] UA Squam Epithelial 0-5 Abnormal None Seen [facility] Comment on above: Performed By: #### U A, PREGU, UAMICAO #### [place] [address] [place], [place] [address] UA WBC 0-5 Abnormal None Seen [facility] Comment on above: Performed By: #### U A, PREGU, UAMICAO #### [place] [address] [place], [place] [address] BRIEF OP NOTon 06-12-2024 BRIEF OP NOT HNO ID: [id number] Author: CLEMENTE COATES MD Service: ? Author Type: Fellow Type: Brief Op Note Filed: 06/12/2024 12:26 Note Text: BRIEF OPERATIVE / PROCEDURE NOTE LOG ID: [id number] SURGERY/PROCEDURE DATE: 06/12/2024 INCISION/PROCEDURE START TIME: 12:00 PM INCISION CLOSE/PROCEDURE END TIME: 12:17 PM SURGEON(S)/PROCEDURALIST(S) AND DRUG ABUSE COUNSELOR(S): Surgeons and Role: * Clemente Coates MD - Primary * Shahnaz Chang MD No Additional Staff SURGERY/PROCEDURE(S): Diagnostic lumbar puncture ANESTHESIA: Local FINDINGS: Successful diagnostic lumbar puncture ESTIMATED BLOOD LOSS: 0 ml SPECIMENS: clear CSF, sent to lab per orders COMPLICATIONS: None CLOSURE TECHNIQUE: Primary PRE-OP/PRE-PROCEDURE DIAGNOSIS: IIHT POST-OP/POST-PROCEDURE DIAGNOSIS: Same as Preop SIGNATURE: Clemente oCates MD PATIENT NAME: Omar Serrano DATE: June 12, 2024 TIME: 12:25 PM Normal [facility] Bacteria CSF Culton 06-12-20 24 Bacteria identified Cx Nom (CSF) CULTURE, CSF: No growth 5 days GRAM STAIN: No organisms seen No Polymorphonuclear Leukocytes No Mononuclear cells Gram stain performed on cytospun specimen. Normal [facility] Comment on above: Performed By: #### 6 06-4 ####[facility] [id number] [place] [address] [place] CBCon 06-12-2024 Erythrocyte distribution width (RBC) [Ratio] 14.7 % Normal 11.5-15.5 [facility] Comment on above: Performed By: #### U A, PREGU, UAMICAO #### [place] [address] Hematocrit (Bld) [Volume fraction] 34.4 % Normal 34.0-46.0 [facility] Comment on above: Performed By: #### U A, PREGU, UAMICAO #### [place] [address] Hgb 11.4 G/dL Low 12.0-16.0 [facility] Comment on above: Performed By: #### U A, PREGU, UAMICAO #### [place] [address] MCH (RBC) [Entitic mass] 24.8 pg Low 27.0-33.0 [facility] Comment on above: Performed By: #### U A PREGU, UAMICAO #### [place] [address] MCHC 33.0 G/dL Normal 32.0-36.0 [facility] Comment on above: Performed By: #### U A PREGU, UAMICAO #### [place] [address] MCV (RBC) [Entitic vol] 75.2 fL Low 80.0-99.0 [facility] Comment on above: Performed By: #### U A, PREGU, UAMICAO #### [place] [address] Platelet 315 10 3/mcL Normal 150-450 [facility] Comment on above: Performed By: #### U A, PREGU, UAMICAO #### [place] [address] Platelet mean volume (Bld) [Entitic vol] 7.3 fL Normal 6.6-10.5 [facility] Comment on above: Performed By: #### U A, PREGU, UAMICAO #### [place] [address] RBC 4.58 10 6/mcL Normal 4.10-5.30 [facility] Comment on above: Performed By: #### BAKARI Josue UAMICAO #### [address] [address] WBC 10.0 10 3/mcL Normal 4.5-10.8 [facility] Comment on above: Performed By: #### BAKARI Josue UAMICAO #### [address] [address] CMPon 06-12-2024 Albumin Level 3.1 G/dL Low 3.5-5.0 [facility] Comment on above: Performed By: #### BAKARI Josue UAMICAO #### [address] [address] Albumin/Globulin [Mass ratio] 0.9 {ratio} Low 1.1-2.5 [facility] Comment on above: Performed By: #### BAKARI Josue UAMICAO #### [address] [address] ALP [Catalytic activity/Vol] 114 U/L Normal 40-135 [facility] Comment on above: Performed By: #### BAKARI Josue UAMICAO #### [address] [address] ALT [Catalytic activity/Vol] 25 U/L Normal 14-59 [facility] Comment on above: Performed By: #### BAKARI Josue UAMICAO #### [address] [address] AST [Catalytic activity/Vol] 16 U/L Normal 10-40 [facility] Comment on above: Performed By: #### BAKARI Josue UAMICAO #### [place] [id number] Bili Total 0.2 mg/dL Normal 0.2-1.0 [facility] Comment on above: Result Comment: Use of this assay is not recommended for patients undergoing treatment with eltrombopag due to the potential for falsely elevated results. Performed By: #### U A PREGU, UAMICAO #### [address] [address] BUN/Creatinine Ratio 14 ratio Normal 7-27 [facility] Comment on above: Performed By: #### U A PREGU, UAMICAO #### [address] [address] Calcium [Mass/Vol] 8.3 mg/dL Low 8.4-10.2 [facility] Comment on above: Performed By: #### U A PREGU, UAMICAO #### [place] [address] Chloride [Moles/Vol] 106 mmol/L Normal 98-107 [facility] Comment on above: Performed By: #### U A PREGU, UAMICAO #### [place] [address] CO2 [Moles/Vol] 28 mmol/L Normal 22-29 [facility] Comment on above: Performed By: #### U Gris PREGU, UAMICAO #### [place] [address] Creatinine [Mass/Vol] 0.95 mg/dL Normal 0.55-1.02 [facility] Comment on above: Result Comment: Test ing performed on Siemens Dimension EXL analyzer using a modified kinetic Gino technique. Performed By: #### U A PREGU, UAMICAO #### [place] [address] Electrolyte Balance 9.0 mEq/L Normal 4.0-15.0 [facility] Comment on above: Performed By: #### U A PREGU, UAMICAO #### [place] [address] Globulin 3.6 G/dL Normal [facility] Comment on above: Performed By: #### U A PREGU, UAMICAO #### [place] [address] Glucose [Mass/Vol] 115 mg/dL High 70-105 [facility] Comment on above: Performed By: #### U A PREGU, UAMICAO #### [address] [address] Potassium [Moles/Vol] 3.5 mmol/L Normal 3.5-5.1 [facility] Comment on above: Performed By: #### U A PREGU, UAMICAO #### [address] [address] Sodium [Moles/Vol] 143 mmol/L Normal 136-145 [facility] Comment on above: Performed By: #### U A PREGU UAMICAO #### [address] [address] Total Protein 6.7 G/dL Normal 6.4-8.2 [facility] Comment on above: Performed By: #### U A PREGU, UAMICAO #### [address] [address] Urea nitrogen [Mass/Vol] 13 mg/dL Normal 7-18 [facility] Comment on above: Performed By: #### U Gris PREGU, UAMICAO #### [address] [address] CSF MANUAL DIFFon 06-12-2024 DIF TTL, CSF 51 cells counted Normal [facility] Comment on above: Order Comment: Speci men Type: URINE SPECIMEN Ordering Facility: [facility] Address: [address] [place] [address] Result Comment: Less than 100 cells were counted due to low cellularity of the specimen; therefore, the total differential percentage may be subject to rounding error. Performed By: #### 2 4356-8 #### [facility] CLIA [id number] [address] [place], [place] [address] [address] [place] LYMPH%, CSF 73 % Normal 50-90 [facility] Comment on above: Order Comment: Speci men Type: URINE SPECIMEN Ordering Facility: [facility] Address: [address] [place], [place] [id number] Performed By: #### 2 4356-8 #### [facility] CLIA [id number] [address] [place] [address] [place] MONO%, CSF 16 % Normal 10-50 [facility] Comment on above: Order Comment: Speci men Type: URINE SPECIMEN Ordering Facility: [facility] Address: [address] [place] [address] Performed By: #### 2 4356-8 #### [facility] CLIA [id number] [address] [place] [address] [place] NEUT%, CSF 2 % Normal 0-3 [facility] Comment on above: Order Comment: Speci men Type: URINE SPECIMEN Ordering Facility: [facility] Address: [address] [place] [address] Performed By: #### 2 4356-8 #### [facility] CLIA [id number] [address] [place] [address] [place] REAC LYMPH %, CSF 10 % Normal [facility] Comment on above: Order Comment: Speci men Type: URINE SPECIMEN Ordering Facility: [facility] Address: [address] [place] [address] Performed By: #### 2 4356-8 #### [facility] CLIA [id number] [address] [place] [address] [place] ABD/PELVIS W/ IV CONTRAST ONLYon 06-12-2024 CT ABD/PELVIS W/ IV CONTRAST ONLY ORIGINAL EXAMINATION: CT OF THE ABDOMEN AND PELVIS WITH GNMPLEIJ52/3/2024 10:18 pm TECHNIQUE: CT of the abdomen [...] Date: 06/12/2024 11:28:39 PM Ordering Provider: OMEGA Edwards [facility] Cell count panel (CSF)Ordere d By: Iris Bah on 06-12-2024 Clarity (CSF) Clear Clear [facility] Clarity (Unsp spec) Not Indicated Clear [facility] Color (CSF) Colorless Colorless [facility] Color (Spun CSF) Not Indicated Colorless [facility] CSF Tube Number Sterile Container Cl [facility] Interpretation and review of laboratory results Abnormal [facility] RBC Manual cnt (CSF) [#/Vol] 12 High [facility] WBC Manual cnt (CSF) [#/Vol] 0 [facility] Cell count panel (CSF)on Clarity (CSF) Clear Normal Clear [facility] Comment on above: Order Comment: Speci men Type: URINE SPECIMEN Ordering Facility: [facility] Address: [address] [place], [place] [address] Performed By: #### 2 4356-8 #### [facility] CLIA [id number] [address] [place] [address] [place] Clarity (Unsp spec) Not Indicated Normal Clear [facility] Comment on above: Order Comment: Speci men Type: URINE SPECIMEN Ordering Facility: [facility] Address: [address] [place] [address] Performed By: #### 2 4356-8 #### [facility] CLIA [id number] [address] [place] [address] [place] [facility] Color (CSF) Colorless Normal Colorless [facility] Comment on above: Order Comment: Speci men Type: URINE SPECIMEN Ordering Facility: [facility] Address: [address] [place] [address] Performed By: #### 2 4356-8 #### [facility] CLIA [id number] [address] [place] [address] [place] Color (Spun CSF) Not Indicated Normal Colorless [facility] Comment on above: Order Comment: Speci men Type: URINE SPECIMEN Ordering Facility: [facility] Address: [address] [place] [address] Performed By: #### 2 4356-8 #### [facility] CLIA [id number] [address] [place] [address] [place] CSF TUBE NUMBER Sterile Container Normal [facility] Comment on above: Order Comment: Speci men Type: URINE SPECIMEN Ordering Facility: [facility] Address: [address] [place], [place] [address] Performed By: #### 2 4356-8 #### [facility] CLIA [id number] [address] [place] [address] [place] RBC Manual cnt (CSF) [#/Vol] 12 cells/uL High 0-5 [facility] Comment on above: Order Comment: Speci men Type: URINE SPECIMEN Ordering Facility: [facility] Address: [address] [place] [address] Performed By: #### 2 4356-8 #### [facility] CLIA [id number] [address] [place] [address] [place] WBC Manual cnt (CSF) [#/Vol] 0 cells/uL Normal 0-5 [facility] Comment on above: Order Comment: Speci men Type: URINE SPECIMEN Ordering Facility: [facility] Address: [address] [place] [address] Performed By: #### 2 4356-8 #### [facility] CLIA [id number] [address] [place] [address] [place] GLUCOSE CSFon 06-12-2024 Glucose (CSF) [Mass/Vol] 63 mg/dL 40 - 70 mg/dL [facility] Comment on above: Lumbar CSF glucose v alues of healthy patients are approximately 60% of the plasma values and must always be compared with a concurrently measured plasma value for adequate clinical interpretation. References: 1. Glucose HK (GLUC3) [package insert V 12.0 Angolan]. [employer], [place], [place]. January 2016. 2. Jo Ann Scott., He, H. (2015). Chapter 7: Glucose and Lactate. Hannah Luna et al.(eds.), Cerebrospinal Fluid in Clinical Neurology. Pratt: Scaleform. Glucose CSF-mCncon Glucose (CSF) [Mass/Vol] 63 mg/dL Normal 40-70 [facility] Comment on above: Order Comment: Speci men Type: CEREBROSPINAL FLUID SPECIMEN Ordering Facility: [facility] Address: [address] [place] [address] Result Comment: Lumb ar CSF glucose values of healthy patients are approximately 60% of the plasma values and must always be compared with a concurrently measured plasma value for adequate clinical interpretation. References: 1. Glucose HK (GLUC3) [package insert V 12.0 [place]olan]. [employer], [place], [place]. January 2016. 2. Jo Ann Scott., He, H. (2015). Chapter 7: Glucose and Lactate. Hannah Luna et al.(eds.), Cerebrospinal Fluid in Clinical Neurology. Pratt: Scaleform. Performed By: #### 2 342-4, 2880-3 #### [facility] CLIA [id number] [address] [place] [address] [place] IR LP FOR DRAINAGE [...] of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 above: Order Comment: Speci men Type: URINE SPECIMEN Ordering Facility: [facility] Address: [address] [place] [address] Performed By: #### 2 4356-8 #### [facility] CLIA [id number] [address] [place] [address] [place] Sodium [Moles/Vol] 143 mmol/L Normal 136-144 [facility] Comment on above: Order Comment: Speci men Type: URINE SPECIMEN Ordering Facility: [facility] Address: [address] [place] [address] Performed By: #### 2 4356-8 #### [facility] CLIA [id number] [address] [place] [address] [place] Urea nitrogen [Mass/Vol] 15 mg/dL Normal 7-21 [facility] Comment on above: Order Comment: Speci men Type: URINE SPECIMEN Ordering Facility: [facility] Address: [address] [place] [address] Performed By: #### 2 4356-8 #### [facility] CLIA [id number] [address] [place] [address] [place] CBC W Auto Differential pane l (Bld)on 02-20-2024 Basophils (Bld) [#/Vol] 0.09 10*3/uL Normal <0.11 [facility] Comment on above: Order Comment: Speci men Type: BLOOD SPECIMEN Ordering Facility: [facility] Address: [address] [place] [address] Performed By: #### 5 7021-8 #### [facility] CLIA [id number] [address] [place] [address] [place] Basophils/100 WBC (Bld) 0.9 % Normal [facility] Comment on above: Order Comment: Speci men Type: BLOOD SPECIMEN Ordering Facility: [facility] Address: [address] [place] [address] Performed By: #### 5 7021-8 #### [facility] CLIA [id number] [address] [place] [address] [place] Differential cell count method Nom (Bld) Auto Normal [facility] Comment on above: Order Comment: Speci men Type: BLOOD SPECIMEN Ordering Facility: [facility] Address: [address] [place] [address] Performed By: #### 5 7021-8 #### [facility] CLIA [id number] [address] [place] [address] [place] Eosinophils (Bld) [#/Vol] 0.14 10*3/uL Normal <0.46 [facility] Comment on above: Order Comment: Speci men Type: BLOOD SPECIMEN Ordering Facility: [facility] Address: [address] [place] [address] Performed By: #### 5 7021-8 #### [facility] CLIA [id number] [address] [place] [address] [place] Eosinophils/100 WBC (Bld) 1.3 % Normal [facility] Comment on above: Order Comment: Speci men Type: BLOOD SPECIMEN Ordering Facility: [facility] Address: [address] [place] [address] Performed By: #### 5 7021-8 #### [facility] CLIA [id number] [address] [place] [address] [place] Erythrocyte distribution width (RBC) [Ratio] 14.6 % Normal 11.5-15.0 [facility] Comment on above: Order Comment: Speci men Type: BLOOD SPECIMEN Ordering Facility: [facility] Address: [address] [place] [address] Performed By: #### 5 7021-8 #### [facility] CLIA [id number] [address] [place] [address] [place] Hematocrit (Bld) [Volume fraction] 37.5 % Normal 36.0-46.0 [facility] Comment on above: Order Comment: Speci men Type: BLOOD SPECIMEN Ordering Facility: [facility] Address: [address] [place] [address] Performed By: #### 5 7021-8 #### [facility] CLIA [id number] [address] [place] [address] [place] Hemoglobin (Bld) [Mass/Vol] 12.5 g/dL Normal 11.5-15.5 [facility] Comment on above: Order Comment: Speci men Type: BLOOD SPECIMEN Ordering Facility: [facility] Address: [address] [place] [address] Performed By: #### 5 7021-8 #### [facility] CLIA [id number] [address] [place] [address] [place] Immature granulocytes (Bld) [#/Vol] 0.03 10*3/uL Normal <0.10 [facility] Comment on above: Order Comment: Speci men Type: BLOOD SPECIMEN Ordering Facility: [facility] Address: [address] [place] [address] Performed By: #### 5 7021-8 #### [facility] CLIA [id number] [address] [place] [address] [place] Immature granulocytes/100 WBC (Bld) 0.3 % Normal [facility] Comment on above: Order Comment: Speci men Type: BLOOD SPECIMEN Ordering Facility: [facility] Address: [address] [place] [address] Performed By: #### 5 7021-8 #### [facility] CLIA [id number] [address] [place] [address] [place] Lymphocytes (Bld) [#/Vol] 2.26 10*3/uL Normal 1.00-4.00 [facility] Comment on above: Order Comment: Speci men Type: BLOOD SPECIMEN Ordering Facility: [facility] Address: [address] [place] [address] Performed By: #### 5 7021-8 #### [facility] CLIA [id number] [address] [place] [address] [place] Lymphocytes/100 WBC (Bld) 21.6 % Normal [facility] Comment on above: Order Comment: Speci men Type: BLOOD SPECIMEN Ordering Facility: [facility] Address: [address] [place] [address] Performed By: #### 5 7021-8 #### [facility] CLIA [id number] [address] [place] [address] [place] MCH (RBC) [Entitic mass] 25.4 pg Low 26.0-34.0 [facility] Comment on above: Order Comment: Speci men Type: BLOOD SPECIMEN Ordering Facility: [facility] Address: [address] [place] [address] Performed By: #### 5 7021-8 #### [facility] CLIA [id number] [address] [place] [address] [place] MCHC (RBC) [Mass/Vol] 33.3 g/dL Normal 30.5-36.0 [facility] Comment on above: Order Comment: Speci men Type: BLOOD SPECIMEN Ordering Facility: [facility] Address: [address] [place] [address] Performed By: #### 5 7021-8 #### [facility] CLIA [id number] [address] [place] [address] [place] MCV (RBC) [Entitic vol] 76.1 fL Low 80.0-100.0 [facility] Comment on above: Order Comment: Speci men Type: BLOOD SPECIMEN Ordering Facility: [facility] Address: [address] [place] [address] Performed By: #### 5 7021-8 #### [facility] CLIA [id number] [address] [place] [address] [place] Monocytes (Bld) [#/Vol] 0.62 10*3/uL Normal <0.87 [facility] Comment on above: Order Comment: Speci men Type: BLOOD SPECIMEN Ordering Facility: [facility] Address: [address] [place] [address] Performed By: #### 5 7021-8 #### [facility] CLIA [id number] [address] [place] [address] [place] Monocytes/100 WBC (Bld) 5.9 % Normal [facility] Comment on above: Order Comment: Speci men Type: BLOOD SPECIMEN Ordering Facility: [facility] Address: [address] [place] [address] Performed By: #### 5 7021-8 #### [facility] CLIA [id number] [address] [place] [address] [place] Neutrophils (Bld) [#/Vol] 7.31 10*3/uL Normal 1.45-7.50 [facility] Comment on above: Order Comment: Speci men Type: BLOOD SPECIMEN Ordering Facility: [facility] Address: [address] [place] [address] Performed By: #### 5 7021-8 #### [facility] CLIA [id number] [address] [place] [address] [place] Neutrophils/100 WBC (Bld) 70.0 % Normal [facility] Comment on above: Order Comment: Speci men Type: BLOOD SPECIMEN Ordering Facility: [facility] Address: [address] [place] [address] Performed By: #### 5 7021-8 #### [facility] CLIA [id number] [address] [place] [address] [place] Nucleated RBC (Bld) [#/Vol] 10*3/uL Normal <0.01 [facility] Comment on above: Order Comment: Speci men Type: BLOOD SPECIMEN Ordering Facility: [facility] Address: [address] [place] [address] Performed By: #### 5 7021-8 #### [facility] CLIA [id number] [address] [place] [address] [place] Nucleated RBC/100 WBC (Bld) [Ratio] 0.0 /100 WBC Normal [facility] Comment on above: Order Comment: Speci men Type: BLOOD SPECIMEN Ordering Facility: [facility] Address: [address] [place] [address] Performed By: #### 5 7021-8 #### [facility] CLIA [id number] [address] [place] [address] [place] Platelet mean volume (Bld) [Entitic vol] 9.4 fL Normal 9.0-12.7 [facility] Comment on above: Order Comment: Speci men Type: BLOOD SPECIMEN Ordering Facility: [facility] Address: [address] [place] [address] Performed By: #### 5 7021-8 #### [facility] CLIA [id number] [address] [place] [address] [place] Platelets (Bld) [#/Vol] 299 10*3/uL Normal 150-400 [facility] Comment on above: Order Comment: Speci men Type: BLOOD SPECIMEN Ordering Facility: [facility] Address: [address] [place] [address] Performed By: #### 5 7021-8 #### [facility] CLIA [id number] [address] [place] [address] [place] RBC (Bld) [#/Vol] 4.93 10*6/uL Normal 3.90-5.20 [facility] Comment on above: Order Comment: Speci men Type: BLOOD SPECIMEN Ordering Facility: [facility] Address: [address] [place] [address] Performed By: #### 5 7021-8 #### [facility] CLIA [id number] [address] [place] [address] [place] WBC (Bld) [#/Vol] 10.45 10*3/uL Normal 3.70-11.00 [facility] Comment on above: Order Comment: Speci men Type: BLOOD SPECIMEN Ordering Facility: [facility] Address: [address] [place] [address] Performed By: #### 5 7021-8 #### [facility] CLIA [id number] [address] [place] [address] [place] CONSULTon 02-20-2024 CONSULT HNO ID: [id number] Author: FRANCES SINGH DO Service: Neurology General Author Type: Physician Type: Consults Filed: 02/20/2024 18:05 Note Text: INITIAL CONSULT - GENERAL NEUROLOGY SERVICE DATE: 02/20/2024 SERVICE TIME: 2:18 PM Team Requesting Consult: ED Current Attending Provider: Di Bowens MD Neurology was asked to evaluate Omar Serrano, a 38 year old female. Our recommendations of care will be communicated by shared medical record. Subjective HPI: Omar Serrano is a 38 year old female with [...] her shoulder blades. Saw her opthomaologist in [place] for these symptoms about 3 days ago, [...] follows with local opthamoloigst Dr. Novak in [place]. In the ED CT Brain showed no [...] noted on (more content not included)... Normal [facility] CT BRAIN WO IVCONon 02-20-[address] BRAIN WO IVCON * * *Final Report* * * DATE OF EXAM: Feb 20 2024 1:15PM [facility] 0504 - CT BRAIN WO IVCON / [...] sella configuration. IMPRESSION: No acute intracranial abnormality. Test Man: LAITH Transcribe Date/Time: Feb 20 2024 1:17P Dictated by : MIKAEL JONES MD This examination was interpreted and the report reviewed and electronically signed by: WILLIAMS BANKS MD on Feb 20 2024 1:27PM EST [id number] Normal [facility] ED PROV NOTEon 02-20-2024 ED PROV NOTE HNO ID: [id number] Author: CRESENCIO BOYLE PA-C Service: Emergency Medicine Author Type: Physician Handle Bender Type: ED Provider Notes Filed: 02/20/2024 22:00 [...] and Ophtho appts. ED Course as of 02/20/24 2200 Cresencio Boyle's Documentation SunFeb 20, 2024 1519 [...] (ANC) 7.31 Lymph% 21.6 Abs Lymph 2.26 Wilcox% 5.9 Abs Wilcox 0.62 Eosin% 1.3 Abs Eosin 0.14 Baso% [...] Enrique Nuñez MD Clinical Impressions as of 02/20/24 2200 IIH (idiopathic intracranial hypertension) Pressure in head Hypokalemia Medical Decision Making SIGNATURE: Cresencio Boyle PA-C PATIENT NAME: Omar Serrano DATE: February 20, 2024 TIME: 3:06 PM PAGER/CONTACT #: CRESENCIO BOYLE 02/20/24 2200 Normal [facility] ED PROV NOTE HNO ID: [id number] Author: DI BOWENS MD Service: Emergency Medicine Author Type: Physician Type: ED Provider Notes Filed: 02/21/2024 20:16 Note Text: ED Provider Note Patient Name: Omar Serrano : 1985 SERVICE DATE: 02/20/24 History Patient presents with: Headache Nausea: Hx of idiopathic ICH. Has had SEGOVIA and nausea x1 week; worsening. 38-year-old female [...] been unable to get in with her neuro-net lead developer due to the doctor retiring. Patient describes the headache as starting in the frontotemporal region and migrating to the occipital and cervical region. Patient states that there has been no change in her vision however states that she has not seen an net lead developer since her previous flareup when she presented to the ED a year ago. Patient is also stating that she is having associated chest tightness that is nonreproducible and nonpositional and does not radiate. History provided by: Patient certified court/medical interpreter used: No PAST MEDICAL HISTORY Diagnosis Date [...] of 02/21/242012 Others' Documentation SunFeb 20, 2024 1117 I [...] (ANC) 7.31 Lymph% 21.6 Abs Lymph 2.26 Wilcox% 5.9 Abs Wilcox 0.62 Eosin% 1.3 Abs Eosin 0.14 Baso% 0.9 Abs Baso 0.09 Immature Gran % 0.3 IMMATURE GRANS (ABS) 0.03 NRBC 0.0 Absolute nRBC <0.01 DTYPE Auto No anemia or leukocytosis noted on CBC [NG] 1230 Magnesium: 2.2 wnl [NG] 1230 Potassium(!): (more content not included)... Normal [facility] ED Triage Noteon 02-20-2024 ED Triage Note HNO ID: [id number] Author: MARII FIERRO MD Service: Emergency Medicine Author Type: Physician Type: ED Triage Notes Filed: 02/20/2024 11:03 Note Text: ED TRIAGE PROVIDER NOTE Patient Name: Omar Serrano Service Date: 02/20/24 BRIEF HPI: This is a 38 year old female who presents to the ED with: has pseudotumor cerebri with worsening symptoms +headaches and pressure Whooshing in ears, dizziness Intermittent vision changes BRIEF EXAM: NAD Awake and Alert Non labored breathing INITIAL WORKUP AND DECISION MAKING: Orders Placed This Encounter CBC + DIFF BASIC METABOLIC PNL MAGNESIUM BLD UA DIP, URINE HCG(POC) SIGNATURE: Marii Fierro MD Normal [facility] Magnesium SerPl-mCncon 02-19 Magnesium [Mass/Vol] 2.2 mg/dL Normal 1.7-2.3 [facility] Comment on above: Order Comment: Speci men Type: URINE SPECIMEN Ordering Facility: [facility] Address: [address] [place] [address] Performed By: #### 2 4356-8 #### [facility] CLIA [id number] [address] [place] [address] [place] .Auto Diffon 02-09-2024 Basophil, Absolute 0.1 10 3/mcL Normal 0.0-0.2 [facility] ([place] Comment on above: Performed By: #### A DIFF, CBCDORENE MDW #### [address] [address] Basophils/100 WBC (Bld) 0.7 % Normal 0.0-2.5 [facility] ([place]) Comment on above: Performed By: #### A DIFF, CBCDORENE MDW #### [address] [address] Eosinophil, Absolute 0.2 10 3/mcL Normal 0.0-0.4 [facility] ([place]) Comment on above: Performed By: #### A DIFF, CBCDORENE MDW #### [address] [address] Eosinophils/100 WBC (Bld) 1.8 % Normal 0.0-7.0 [facility] ([place] Comment on above: Performed By: #### A DIFFMANUELITO ANEU, MDW #### [address] [address] Lymphocyte, Absolute 3.1 10 3/mcL Normal 0.8-3.9 [facility] ([place] Comment on above: Performed By: #### A DIFF, DORENE BILLINGS MDW #### [address] [address] Lymphocytes/100 WBC (Bld) 29.7 % Normal 10.0-50.0 [facility] ([place] Comment on above: Performed By: #### A DIFF, DORENE BILLINGS MDW #### [place] [address] [address] Monocyte, Absolute 0.8 10 3/mcL Normal 0.2-1.0 [facility] ([place] Comment on above: Performed By: #### A DIFF, DORENE BILLINGS MDW #### [address] [address] Monocytes/100 WBC (Bld) 7.7 % Normal 1.7-13.0 [facility] ([place] Comment on above: Performed By: #### A DIFFMANUELITO ANEU, MDW #### [address] [address] Neutrophils/100 WBC (Bld) 60.1 % Normal 37.0-80.0 [facility] ([place] Comment on above: Performed By: #### A DIFFMANUELITO ANEU, MDW #### [address] [address] .GFRon 02-09-2024 GFR Non- 186 ml/min/1.73sqm Normal [facility] ([place] Comment on above: Result Comment: GFR Population [...] mL/min/1.73 square meters Performed By: #### G FR, CRE #### [address] [address] GFR 225 ml/min/1.73sqm Normal [facility] ([place] Comment on above: Result Comment: GFR Population [...] mL/min/1.73 square meters Performed By: #### G FR, CRE #### [address] [address] .MDWon 02-09-2024 Monocyte Distribution Width 14.95 Normal 0.00-20.00 [facility] ([place] Comment on above: Result Comment: For ED adult patients suspected of sepsis, MDW<=20.0 does not rule out sepsis or risk of sepsis Performed By: #### A DIFF, CBC, JORGE CATHERINE #### [address] [address] .NEUABSon 02-09-2024 Neutrophil, Absolute 6.3 10 3/mcL High 2.9-6.2 [facility] ([place] Comment on above: Performed By: #### A DIFF, CBC, JORGE CATHERINE #### [address] [address] .Urinalysis Microscopic (AO) on 02-09-2024 UA Amorphus 4+ /hpf Normal [facility] ([place] Comment on above: Performed By: #### A DIFFMANUELITO ANEU, MDW #### [address] [address] UA RBC 0-5 Abnormal None Seen [facility] ([place] Comment on above: Performed By: #### A DIFFMANUELITO ANEU, MDW #### [address] [address] UA Squam Epithelial 5-10 Abnormal None Seen [facility] ([place]) Comment on above: Performed By: #### A MANUELITO BOWLES ANEU, MDW #### [address] [address] UA WBC 0-5 Abnormal None Seen [facility] ([place] Comment on above: Performed By: #### A MANUELITO BOWLES ANEU, MDW #### [address] [address] CBCon 02-09-2024 Erythrocyte distribution width (RBC) [Ratio] 15.4 % High 11.5-14.5 [facility] ([place] Comment on above: Performed By: #### A MANUELITO BOWLES ANEU, MDW #### [address] [address] Hematocrit (Bld) [Volume fraction] 39.0 % Normal 37.0-47.0 [facility] ([place] Comment on above: Performed By: #### A MANUELITO BOWLES ANEU, MDW #### [place] [address] Hgb 12.6 G/dL Normal 12.0-16.0 [facility] ([place] Comment on above: Performed By: #### A DIFFMANUELITO ANEU, MDW #### [address] [address] MCH (RBC) [Entitic mass] 25.5 pg Low 27.0-31.2 [facility] ([place] Comment on above: Performed By: #### A MANUELITO BOWLES ANEU, MDW #### [address] [address] MCHC 32.3 G/dL Low 33.0-37.0 [facility] ([place] Comment on above: Performed By: #### A DIFFMANUELITO ANEU, MDW #### [address] [address] MCV (RBC) [Entitic vol] 78.9 fL Low 80.0-94.0 [facility] ([place] Comment on above: Performed By: #### A DIFF, DORENE BILLINGS MDW #### [place] [address] Platelet 324 10 3/mcL Normal 130-400 [facility] ([place] Comment on above: Performed By: #### A DIFF, DORENE BILLINGS MDW #### [place] [address] Platelet mean volume (Bld) [Entitic vol] 7.9 fL Normal 7.4-10.4 [facility] ([place] Comment on above: Performed By: #### A DIFFMANUELITO ANEU, MDW #### [place] [address] RBC 4.94 10 6/mcL Normal 4.20-5.40 [facility] ([place] Comment on above: Performed By: #### A DIFF, DORENE BILLINGS MDW #### [place] [address] WBC 10.5 10 3/mcL Normal 4.6-10.8 [facility] ([place] Comment on above: Performed By: #### A DIFF, DORENE BILLINGS MDW #### [place] [address] CREon 02-09-2024 Creatinine [Mass/Vol] 0.39 mg/dL Low 0.55-1.02 [facility] ([place] Comment on above: Performed By: #### Chaim FR, CRE #### [address] [address] [address] ABDOMEN/PELVIS W/O CONTRA Ju[place] 02-09-2024 CT ABDOMEN/PELVIS W/O CONTRAST ORIGINAL EXAMINATION: [...] Date: 02/09/2024 10:33:24 AM Ordering Provider: JOHN Edwards [facility] ([place]) LABORATORYOrdered By: SYSTEM SYSTEM on 02-09-2024 Creatinine [...] HCG ( test) Ql (U) Negative Normal [facility] ([place] Comment on above: Performed By: #### U KRISHAN, UA, PREGU #### [address] [address] test (u) int Not detected Invalid Interpretation Code [facility] ([place] Comment on above: Performed By: #### U AMICAO, UA, PREGU #### [address] [address] UAon 02-09-2024 Color (U) Yellow Normal [facility] ([place] Comment on above: Performed By: #### A DIFF, DORENE BILLINGS MDW #### [place] [address] [address] Glucose (U) [Mass/Vol] Negative Normal Negative [facility] ([place] Comment on above: Performed By: #### A DIFF, DORENE BILLINGS MDW #### [address] [address] Ketones Ql (U) Negative Normal Negative [facility] ([place] Comment on above: Performed By: #### A DIFF, DORENE BILLINGS MDW #### [address] [address] UA Appear Turbid Abnormal Clear [facility] ([place] Comment on above: Performed By: #### A DIFF, DORENE BILLINGS MDW #### [address] [address] UA Blood Large Abnormal Negative [facility] ([place] Comment on above: Performed By: #### A DIFF, DORENE BILLINGS MDW #### [place] [address] [address] UA Leuk Est Negative Normal Negative [facility] ([place] Comment on above: Performed By: #### A DIFF, DORENE BILLINGS MDW #### [place] [address] [address] UA Nitrite Negative Normal Negative [facility] ([place] Comment on above: Performed By: #### A DIFF, DORENE BILLINGS MDW #### [address] [address] UA pH 7.0 Normal 5.0 - 8.0 [facility] ([place] Comment on above: Performed By: #### MANUELITO CHANCE ANEU, MDW #### [address] [address] UA Protein Negative Normal Negative [facility] ([place] Comment on above: Performed By: #### A MANUELITO BOWLES ANEU, MDW #### [address] [address] UA Spec Grav 1.020 Normal 1.015-1.025 [facility] ([place] Comment on above: Performed By: #### A MANUELITO BOWLES ANEU, MDW #### [address] [address] UA Specimen Type Void Normal [facility] ([place] Comment on above: Performed By: #### A MANUELITO BOWLES ANEU, MDW #### [place] [id number] UA Urobilinogen 0.2 E.U./dL Normal 0.2-1.0 [facility] ([place] Comment on above: Performed By: #### A MANUELITO BOWLES ANEU, MDW #### [place] [address] Urobilinogen (U) [Mass/Vol] Negative Normal Negative [facility]) Comment on above: Performed By: #### A MANUELITO BOWLES ANEU, MDW #### [place] [id number] CT ABDOMEN/PELVIS W/O CONTRA STon 01-28-2024 CT ABDOMEN/PELVIS W/O CONTRAST ORIGINAL EXAMINATION: [...] 01/28/2024 10:50:14 PM Ordering Provider: ROC BURT [facility] ([place]) LABORATORYOrdered By: Prabhjot Nicole on 01-28-2024 Appearance [...] Urine SS UA Specimen Type Clean Catch (5/20/24 8:45 PM) Normal AO Auto Urine SS UA Urobilinogen 0.2 E.U./dL Normal 0.2-1.0 AO Auto Urine SS PREGUon 01-28-2024 HCG ( test) Ql (U) Negative Normal [facility] ([place] Comment on above: Performed By: #### A DIFF, DORENE BILLINGS MDW #### [place] [address] test (u) int Not detected Invalid Interpretation Code [facility] ([place] Comment on above: Performed By: #### A DIFFMANUELITO ANEU, MDW #### [place] [address] UAon 01-28-2024 Color (U) Yellow Normal [facility] ([place] Comment on above: Performed By: #### A DIFFMANUELITO ANEU, MDW #### [place] [address] Glucose (U) [Mass/Vol] Negative Normal Negative [facility] ([place] Comment on above: Performed By: #### A DIFFMANUELITO ANEU, MDW #### [address] [address] Ketones Ql (U) Negative Normal Negative [facility] ([place] Comment on above: Performed By: #### A DIFFMANUELITO ANEU, MDW #### [address] [address] UA Appear Clear Normal Clear [facility] ([place] Comment on above: Performed By: #### A DIFF, DORENE BILLINGS MDW #### [address] [address] UA Blood Negative Normal Negative [facility] ([place] Comment on above: Performed By: #### A DIFF, DORENE BILLINGS MDW #### [place] [address] [address] UA Leuk Est Negative Normal Negative [facility] ([place] Comment on above: Performed By: #### A DIFF, DORENE BILLINGS MDW #### [address] [address] UA Nitrite Negative Normal Negative [facility] ([place] Comment on above: Performed By: #### A MANUELITO BOWLES ANEU, MDW #### [address] [address] UA pH 5.5 Normal 5.0 - 8.0 [facility] ([place] Comment on above: Performed By: #### A MANUELITO BOWLES ANEU, MDW #### [address] [address] UA Protein Negative Normal Negative [facility] ([place] Comment on above: Performed By: #### A MANUELITO BOWLES ANEU, MDW #### [address] [address] UA Spec Grav >=1.030 Abnormal 1.015-1.025 [facility] ([place] Comment on above: Performed By: #### A MANUELITO BOWLES ANEU, MDW #### [address] [address] UA Specimen Type Clean Catch Normal [facility] ([place] Comment on above: Performed By: #### A MANUELITO BOWLES ANEU, MDW #### [address] [address] UA Urobilinogen 0.2 E.U./dL Normal 0.2-1.0 [facility] ([place] Comment on above: Performed By: #### A MANUELITO BOWLES ANEU, MDW #### [address] [address] Urobilinogen (U) [Mass/Vol] Negative Normal Negative [facility] ([place] Comment on above: Performed By: #### A MANUELITO BOWLES ANEU, MDW #### [address] [address] No Panel Informationon 12-12 IMPRESSION: NO ACUTE FRACTURE INVOLVING THE LEFT FOOT OR ANKLE Test Man: LAITH Transcribe Date/Time: Dec 13 2023 4:37P Dictated by : BARBARA QUEEN MD This examination was interpreted and the report reviewed and electronically signed by: BARBARA QUEEN MD on Dec 13 2023 4:40PM [facility] DIVISION OF RADIOLOGY Radiology Study observation (narrative) [facility] No Panel InformationOrdered By: Ccf Provider on 12-13-2023 [facility] XR Ankle - left AP and Later [...] mineralization and alignment. DIVISION OF RADIOLOGY Provider, [facility] - 12/13/2023 * * *Final Report* * [...] FRACTURE INVOLVING THE LEFT FOOT OR ANKLE Test Man: [facility] Transcribe Date/Time: Dec 13 2023 4:37P Dictated by : BARBARA QUEEN MD This examination was interpreted and the report reviewed and electronically signed by: BARBARA QUEEN MD on Dec 13 2023 4:40PM [facility] XR Foot - left AP and Latera [...] mineralization and alignment. DIVISION OF RADIOLOGY Provider, [facility] - 12/13/2023 * * *Final Report* * [...] FRACTURE INVOLVING THE LEFT FOOT OR ANKLE Test Man: LAITH Transcribe Date/Time: Dec 13 2023 4:37P Dictated by : BARBARA QUEEN MD This examination was interpreted and the report reviewed and electronically signed by: BARBARA QUEEN MD on Dec 13 2023 4:40PM [facility] US PELVIS NON-OB W/TRANSVAGI NALon 05-29-2023 US PELVIS [...] Date: 05/29/2023 3:59:47 PM Ordering Provider: CALISTA BAUM [facility] ([place] LABORATORYOrdered By: SYSTEM SYSTEM on 02-12-2023 HCG [...] No fungus isolated after 21 days. Normal [facility] Comment on above: Performed By: #### P T, CMP3M, HEMDF, MG3 #### [place] [address] [place], [place] Basic Metabolic Panelon 05-12 Calcium [Mass/Vol] 9.3 mg/dL Normal 8.4-10.4 [facility] Comment on above: Performed By: #### P T, CMP3M, HEMDF, MG3 #### [place] [address] [place], [place] Glucose [Mass/Vol] 77 mg/dL Normal 70-100 [facility] Comment on above: Performed By: #### P T, CMP3M, HEMDF, MG3 #### [place] [address] [place], [place] Urea nitrogen [Mass/Vol] 11 mg/dL Normal 7-20 [facility] Comment on above: Performed By: #### P T, CMP3M, HEMDF, MG3 #### [place] [address] [place], [place] Anion gap [Moles/Vol] 11 Normal [facility] Comment on above: Performed By: #### P T, CMP3M, HEMDF, MG3 #### [place] [address] [place], [place] CO2 [Moles/Vol] 20 mmol/L Low 22-30 [facility] Comment on above: Performed By: #### P T, CMP3M, HEMDF, MG3 #### [place] [address] [place], [place] Creatinine [Mass/Vol] 0.97 mg/dL Normal 0.52-1.25 [facility] Comment on above: Performed By: #### P T, CMP3M, HEMDF, MG3 #### [place] [address] [place], [place] GFR/1.73 sq M predicted among blacks MDRD (S/P/Bld) [Vol rate/Area] mL/min/{1.73_m2} Normal >60 [facility] Comment on above: Performed By: #### P T, CMP3M, HEMDF, MG3 #### [place] [address] [place], [place] GFR/1.73 sq M predicted among non-blacks MDRD (S/P/Bld) [Vol rate/Area] mL/min/{1.73_m2} Normal >60 [facility] Comment on above: Result Comment: Sour ce- MDRD equation with creatinine calibration to IDMS(NKDEP) eGFR not recommended for drug dose adjustment Performed By: #### P T, CMP3M, HEMDF, MG3 #### [place] [address] [place], [place] Potassium [Moles/Vol] 4.0 mmol/L Normal 3.5-5.1 [facility] Comment on above: Performed By: #### P T, CMP3M, HEMDF, MG3 #### [place] [address] [place], [place] Chloride [Moles/Vol] 112 mmol/L High 98-107 [facility] Comment on above: Performed By: #### P T, CMP3M, HEMDF, MG3 #### [place] [address] [place], [place] Sodium [Moles/Vol] 143 mmol/L Normal 135-145 [facility] Comment on above: Performed By: #### P T, CMP3M, HEMDF, MG3 #### [facility] [address] [place], [place] HIV 1,2 Ab; p24 Agon 019 HIV 1,2 Ab; p24 Ag NONREACTIVE Normal Nonreactive [facility] Comment on above: Result Comment: Resu lts [...] #### P T, CMP3M, HEMDF, MG3 #### [facility] [address] [place], [place] CULTURE AND STAIN - FLUIDon 05-28-2019 CULTURE AND STAIN - FLUID CULTURE & STAIN - FLUID --> Status: F No growth at 5 days. Normal [facility] Comment on above: Order Comment: Speci men Source Comment:Spinal Fluid Performed By: #### P T, CMP3M, HEMDF, MG3 #### [facility] [address] [place], [place] VDRL wReflex to Titer, CSFon 05-27-2019 VDRL wReflex, CSF Non Reactive Normal Non Reactive [facility] Comment on above: Result Comment: Tenisha use the VDRL was Non Reactive, the VDRL titer was not performed. Performed by [facility], [address] [place] [id number] [email or web address], Colby Castellano MD - Lab. Director Performed By: #### P T, CMP3M, HEMDF, MG3 #### [facility] [address] [place], [place] CULTURE MYCOBACTERIAon 05-26 CULTURE MYCOBACTERIA CULTURE MYCOBACTERI A --> Status: F No acid-fast bacilli isolated after 6 weeks incubation. STAIN ACID-FAST --> Status: F No acid-fast bacilli seen in smear. - Method: Fluorescent Stain - Method: Fluorescent Stain Normal [facility] Comment on above: Performed By: #### P T, CMP3M, HEMDF, MG3 #### [facility] [address] [place], [place] RPR, Qualon 05-26-2019 RPR, Qual NONREACTIVE Normal Non-Reactive [facility] Comment on above: Performed By: #### P T, CMP3M, HEMDF, MG3 #### [facility] [address] [place], [place] Basic Metabolic Panelon 05-11 Anion gap [Moles/Vol] 9 Normal [facility] Comment on above: Performed By: #### P T, CMP3M, HEMDF, MG3 #### [place] [address] [place], [place] Calcium [Mass/Vol] 8.8 mg/dL Normal 8.4-10.4 [facility] Comment on above: Performed By: #### P T, CMP3M, HEMDF, MG3 #### [place] [address] [place] CO2 [Moles/Vol] 18 mmol/L Low 22-30 [facility] Comment on above: Performed By: #### P T, CMP3M, HEMDF, MG3 #### [place] [address] [place], [place] Glucose [Mass/Vol] 86 mg/dL Normal 70-100 [facility] Comment on above: Performed By: #### P T, CMP3M, HEMDF, MG3 #### [place] [address] [place], [place] Urea nitrogen [Mass/Vol] 29 mg/dL High 7-20 [facility] Comment on above: Performed By: #### P T, CMP3M, HEMDF, MG3 #### [place] [address] [place] Creatinine [Mass/Vol] 1.08 mg/dL Normal 0.52-1.25 [facility] Comment on above: Performed By: #### P T, CMP3M, HEMDF, MG3 #### [place] [address] [place], [place] GFR/1.73 sq M predicted among blacks MDRD (S/P/Bld) [Vol rate/Area] mL/min/{1.73_m2} Normal >60 [facility] Comment on above: Performed By: #### P T, CMP3M, HEMDF, MG3 #### [place] [address] [place] [address] GFR/1.73 sq M predicted among non-blacks MDRD (S/P/Bld) [Vol rate/Area] 59.0 mL/min/{1.73_m2} Normal >60 [facility] Comment on above: Result Comment: Sour ce- MDRD equation with creatinine calibration to IDMS(NKDEP) eGFR not recommended for drug dose adjustment Performed By: #### P T, CMP3M, HEMDF, MG3 #### [place] [address] [place] [address] Potassium [Moles/Vol] 3.8 mmol/L Normal 3.5-5.1 [facility] Comment on above: Performed By: #### P T, CMP3M, HEMDF, MG3 #### [place] [address] [place] [address] Chloride [Moles/Vol] 113 mmol/L High 98-107 [facility] Comment on above: Performed By: #### P T, CMP3M, HEMDF, MG3 #### [place] [address] [place] [address] Sodium [Moles/Vol] 140 mmol/L Normal 135-145 [facility] Comment on above: Performed By: #### P T, CMP3M, HEMDF, MG3 #### [place] [address] [place] [address] Basic Metabolic Panel w/ Ref levon to MGon 05-25-2019 Anion gap [Moles/Vol] 9 mmol/L [facility], [place] Calcium [Mass/Vol] 8.8 mg/dL 8.4 - 10. 4 mg/dL [facility], [place] Chloride [Moles/Vol] 113 mmol/L High 98 - 10 7 mmol/L [facility], [place] CO2 [Moles/Vol] 18 mmol/L Low 22 - 30 mmol/L [place], [place] Creatinine [Mass/Vol] 1.08 mg/dL 0.52 - 1.25 mg/dL [place], [place] EGFR IF NonAfrican [place]i 59.0 mL/min >60 [place] Comment on above: Source- MDRD equatio n with creatinine calibration to IDMS(NKDEP) eGFR not recommended for drug dose adjustment GFR/1.73 sq M predicted among blacks MDRD (S/P/Bld) [Vol rate/Area] mL/min/{1.73_m2} >60 mL/min [place] Glucose [Mass/Vol] 86 mg/dL 70 - 100 mg/dL [place] Interpretation and review of laboratory results Abnormal [place] Potassium [Moles/Vol] 3.8 mmol/L 3.5 - 5.1 mmol/L [place] Sodium [Moles/Vol] 140 mmol/L 135 - 145 mmol/L [place] Urea nitrogen [Mass/Vol] 29 mg/dL High 7 - 20 mg/dL [place] CBC auto differentialon 05-11 Absolute Baso # 0.1 10*3/uL 0 - 0.2 10*3/uL [place] Absolute Neut # 6.1 10*3/uL 1.8 - 7 10*3/uL [place] Basophils/100 WBC (Bld) 0.8 % 0 - 2 % [place] Eosinophils (Bld) [#/Vol] 0.1 10*3/uL 0 - 0.5 10*3/uL [place] Eosinophils/100 WBC (Bld) 1.1 % 1 - 6 % [place] Erythrocyte distribution width (RBC) [Ratio] 13.4 % 11.5 - 14.5 % [place] Granulocytes/100 WBC (Bld) 56.8 % 40 - 80 % [place] Hematocrit (Bld) [Volume fraction] 42.9 % 35 - 47 % [place] Hemoglobin (Bld) [Mass/Vol] 14.7 g/dL 11.7 - 16 g/dL [place] Interpretation and review of laboratory results Abnormal [place] Lymphocytes (Bld) [#/Vol] 3.5 10*3/uL 1 - 4.3 10*3/uL [place] Lymphocytes/100 WBC (Bld) 32.8 % 20 - 40 % [place] MCH (RBC) [Entitic mass] 28.5 pg 26 - 34 pg [place] MCHC (RBC) [Mass/Vol] 34.3 % 32 - 36 % [place] MCV (RBC) [Entitic vol] 83.2 fL 79 - 98 fL [place] Monocytes (Bld) [#/Vol] 0.9 10*3/uL High 0 - 0.8 10*3/uL [place] Monocytes/100 WBC (Bld) 8.5 % 2 - 10 % [place] Platelet mean volume (Bld) [Entitic vol] 7.7 fL 7.4 - 10.4 fL [place] Platelets (Bld) [#/Vol] 294 10*3/uL 140 - 440 10*3/uL [place] RBC (Bld) [#/Vol] 5.15 10*6/uL 3.8 - 5.2 10*6/uL [place] WBC (Bld) [#/Vol] 10.7 10*3/uL 3.6 - 10.7 10*3/uL [place] Test Performed by [facility], [address] [place] [id number] [place] [address] Complete Urinalysison 2018 Appearance (U) Clear Normal [facility] Comment on above: Result Comment: Refe rence Range: Clear Performed By: #### P T, CMP3M, HEMDF, MG3 #### [address] [address] Bilirubin,Urine Negative Normal [facility] Comment on above: Result Comment: Refe rence Range: Negative Performed By: #### P T, CMP3M, HEMDF, MG3 #### [facility] [address] [place], [place] Color (U) Light-Yellow Normal [facility] Comment on above: Result Comment: Refe rence Range: Lt. Yellow Performed By: #### P T, CMP3M, HEMDF, MG3 #### [facility] [address] [place], [place] Glucose Ql (U) Normal Normal [facility] Comment on above: Result Comment: Refe rence Range: Normal (<70) Performed By: #### P T, CMP3M, HEMDF, MG3 #### [place] [address] [place], [place] Ketone,Urine Negative Normal [facility] Comment on above: Result Comment: Refe rence Range: Negative Performed By: #### P T, CMP3M, HEMDF, MG3 #### [address] [place], [place] Leukocytes,Urine Negative Normal [facility] Comment on above: Result Comment: Refe rence Range: Negative Performed By: #### P T, CMP3M, HEMDF, MG3 #### [address] [place], [place] Nitrites,Urine Negative Normal [facility] Comment on above: Result Comment: Refe rence Range: Negative Performed By: #### P T, CMP3M, HEMDF, MG3 #### [address] [place], [place] Occult Blood,Urine Negative Normal [facility] Comment on above: Result Comment: Refe rence Range: Negative Performed By: #### P T, CMP3M, HEMDF, MG3 #### [facility] [address] [place], [place] pH (U) 5.5 Normal 5.0-8.0 [facility] Comment on above: Performed By: #### P T, CMP3M, HEMDF, MG3 #### [address] [place], [place] Protein (U) [Mass/Vol] Negative Normal [facility] Comment on above: Result Comment: Refe rence Range: Negative Performed By: #### P T, CMP3M, HEMDF, MG3 #### [address] [place], [place] Specific [place],Urine 1.027 Normal 1.005-1.030 [facility] Comment on above: Performed By: #### P T, CMP3M, HEMDF, MG3 #### [address] [place], [place] Urobilinogen,Urine Normal Normal [facility] Comment on above: Result Comment: Refe rence Range: Normal (0-1) Performed By: #### P T, CMP3M, HEMDF, MG3 #### [address] [place], [place] Hemogram w/ Autodiffon 05-25 Abs Baso Cnt 0.1 10*3/uL Normal 0.0-0.2 [facility] Comment on above: Performed By: #### P T, CMP3M, HEMDF, MG3 #### [address] [place], [place] Abs Neutrophile Cnt 6.1 10*3/uL Normal 1.8-7.0 [facility] Comment on above: Performed By: #### P T, CMP3M, HEMDF, MG3 #### [address] [place], [place] Basophils/100 WBC (Bld) 0.8 % Normal 0.0-2.0 [facility] Comment on above: Performed By: #### P T, CMP3M, HEMDF, MG3 #### [address] [place], [place] Eosinophils (Bld) [#/Vol] 0.1 10*3/uL Normal 0.0-0.5 [facility] Comment on above: Performed By: #### P T, CMP3M, HEMDF, MG3 #### [address] [place], [place] Eosinophils/100 WBC (Bld) 1.1 % Normal 1.0-6.0 [facility] Comment on above: Performed By: #### P T, CMP3M, HEMDF, MG3 #### [address] [place], [place] Erythrocyte distribution width (RBC) [Ratio] 13.4 % Normal 11.5-14.5 [facility] Comment on above: Performed By: #### P T, CMP3M, HEMDF, MG3 #### [address] [place], [place] Granulocytes/100 WBC (Bld) 56.8 % Normal 40.0-80.0 [facility] Comment on above: Performed By: #### P T, CMP3M, HEMDF, MG3 #### [address] [place], [place] Hematocrit (Bld) [Volume fraction] 42.9 % Normal 35.0-47.0 [facility] Comment on above: Performed By: #### P T, CMP3M, HEMDF, MG3 #### [address] [place], [place] Hemoglobin (Bld) [Mass/Vol] 14.7 g/dL Normal 11.7-16.0 [facility] Comment on above: Performed By: #### P T, CMP3M, HEMDF, MG3 #### [address] [place], [place] Lymphocytes (Bld) [#/Vol] 3.5 10*3/uL Normal 1.0-4.3 [facility] Comment on above: Performed By: #### P T, CMP3M, HEMDF, MG3 #### [address] [place], [place] Lymphocytes/100 WBC (Bld) 32.8 % Normal 20.0-40.0 [facility] Comment on above: Performed By: #### P T, CMP3M, HEMDF, MG3 #### [address] [place], [place] MCH (RBC) [Entitic mass] 28.5 pg Normal 26.0-34.0 [facility] Comment on above: Performed By: #### P T, CMP3M, HEMDF, MG3 #### [address] [place], [place] MCHC (RBC) [Mass/Vol] 34.3 % Normal 32.0-36.0 [facility] Comment on above: Performed By: #### P T, CMP3M, HEMDF, MG3 #### [address] [place], [place] MCV (RBC) [Entitic vol] 83.2 fL Normal 79.0-98.0 [facility] Comment on above: Performed By: #### P T, CMP3M, HEMDF, MG3 #### [address] [place], [place] Monocytes (Bld) [#/Vol] 0.9 10*3/uL High 0.0-0.8 [facility] Comment on above: Performed By: #### P T, CMP3M, HEMDF, MG3 #### [address] [place], [place] Monocytes/100 WBC (Bld) 8.5 % Normal 2.0-10.0 [facility] Comment on above: Performed By: #### P T, CMP3M, HEMDF, MG3 #### [address] [place], [place] Platelet mean volume (Bld) [Entitic vol] 7.7 fL Normal 7.4-10.4 [facility] Comment on above: Performed By: #### P T, CMP3M, HEMDF, MG3 #### [address] [place], [place] Platelets (Bld) [#/Vol] 294 10*3/uL Normal 140-440 [facility] Comment on above: Performed By: #### P T, CMP3M, HEMDF, MG3 #### [address] [place], [place] RBC (Bld) [#/Vol] 5.15 10*6/uL Normal 3.80-5.20 [facility] Comment on above: Performed By: #### P T, CMP3M, HEMDF, MG3 #### [address] [place] [address] WBC (Bld) [#/Vol] 10.7 10*3/uL Normal 3.6-10.7 [facility] Comment on above: Performed By: #### P T, CMP3M, HEMDF, MG3 #### [address] [place] [address] Magnesiumon 05-25-2019 Magnesium [Mass/Vol] 2.1 mg/dL Normal 1.6-2.3 [facility] Comment on above: Performed By: #### P T, CMP3M, HEMDF, MG3 #### [address] [place] [address] Magnesium [Mass/Vol] 2.1 mg/dL 1.6 - 2 .3 mg/dL [place], [place] Otheron 05-25-2019 Test Performed by [facility], [address] [place] [address] [place], [place] Basic Metabolic Panelon 05-11 Anion gap [Moles/Vol] 13 Normal [facility] Comment on above: Performed By: #### P T, CMP3M, HEMDF, MG3 #### [address] [place] [address] Calcium [Mass/Vol] 9.7 mg/dL Normal 8.4-10.4 [facility] Comment on above: Performed By: #### P T, CMP3M, HEMDF, MG3 #### [address] [place] [address] CO2 [Moles/Vol] 15 mmol/L Low 22-30 [facility] Comment on above: Performed By: #### P T, CMP3M, HEMDF, MG3 #### [address] [place] [address] Glucose [Mass/Vol] 109 mg/dL High 70-100 [facility] Comment on above: Result Comment: Mode rately hemolysed, interpret with caution. Performed By: #### P T, CMP3M, HEMDF, MG3 #### [address] [place], [place] Urea nitrogen [Mass/Vol] 26 mg/dL High 7-20 [facility] Comment on above: Performed By: #### P T, CMP3M, HEMDF, MG3 #### [address] [place], [place] Creatinine [Mass/Vol] 1.06 mg/dL Normal 0.52-1.25 [facility] Comment on above: Performed By: #### P T, CMP3M, HEMDF, MG3 #### [address] [place], [place] GFR/1.73 sq M predicted among blacks MDRD (S/P/Bld) [Vol rate/Area] mL/min/{1.73_m2} Normal >60 [facility] Comment on above: Performed By: #### P T, CMP3M, HEMDF, MG3 #### [address] [place], [place] GFR/1.73 sq M predicted among non-blacks MDRD (S/P/Bld) [Vol rate/Area] mL/min/{1.73_m2} Normal >60 [facility] Comment on above: Result Comment: Sour ce- MDRD equation with creatinine calibration to IDMS(NKDEP) eGFR not recommended for drug dose adjustment Performed By: #### P T, CMP3M, HEMDF, MG3 #### [address] [place], [place]loride [Moles/Vol] 112 mmol/L High 98-107 [facility] Comment on above: Performed By: #### P T, CMP3M, HEMDF, MG3 #### [address] [place], [place] Potassium [Moles/Vol] 5.1 mmol/L Normal 3.5-5.1 [facility] Comment on above: Result Comment: Mode rately hemolysed, interpret with caution. Performed By: #### P T, CMP3M, HEMDF, MG3 #### [facility] [address] [place] [address] Sodium [Moles/Vol] 140 mmol/L Normal 135-145 [facility] Comment on above: Performed By: #### P T, CMP3M, HEMDF, MG3 #### [facility] [address] [place] [address] Basic Metabolic Panel w/ Ref levon to MGon 05-24-2019 Anion gap [Moles/Vol] 13 mmol/L [place] Calcium [Mass/Vol] 9.7 mg/dL 8.4 - 10. 4 mg/dL [place] [Moles/Vol] 112 mmol/L High 98 - 10 7 mmol/L [place] CO2 [Moles/Vol] 15 mmol/L Low 22 - 30 mmol/L [place] Creatinine [Mass/Vol] 1.06 mg/dL 0.52 - 1.25 mg/dL [place] EGFR IF NonAfrican [place]i >60.0 >60 mL/min [place] Comment on above: Source- MDRD equatio n with creatinine calibration to IDMS(NKDEP) eGFR not recommended for drug dose adjustment GFR/1.73 sq M predicted among blacks MDRD (S/P/Bld) [Vol rate/Area] mL/min/{1.73_m2} >60 mL/min [place] Glucose [Mass/Vol] 109 mg/dL High 70 - 100 mg/dL [place], [place] Comment on above: Moderately hemolysed , interpret with caution. Potassium [Moles/Vol] 5.1 mmol/L 3.5 - 5.1 mmol/L [place] Comment on above: Moderately hemolysed , interpret with caution. Sodium [Moles/Vol] 140 mmol/L 135 - 145 mmol/L [place] Urea nitrogen [Mass/Vol] 26 mg/dL High 7 - 20 mg/dL [place] Magnesiumon 05-24-2019 Magnesium [Mass/Vol] 2.5 mg/dL High 1.6-2.3 [facility] Comment on above: Result Comment: Mode rately hemolysed, interpret with caution. Performed By: #### P T, CMP3M, HEMDF, MG3 #### [address] [place] [address] Magnesium [Mass/Vol] 2.5 mg/dL High 1.6 - 2 .3 mg/dL [place], [place] Comment on above: Moderately hemolysed , interpret with caution. Otheron 05-24-2019 Interpretation and review of laboratory results Abnormal [place] Test Performed by [facility], [facility] [place] [address] [place], [place] Urinalysison 05-24-2019 Appearance (U) Clear [place], [place] Comment on above: Reference Range: Sean ar Bilirubin Urine Negative mg/dL [place], [place] Comment on above: Reference Range: Neg ative Color (U) Light-Yellow [place], [place] Comment on above: Reference Range: Lt. Yellow Glucose, Ur Normal mg/dL [place] Comment on above: Reference Range: Nor mal (<70) Ketones Ql (U) Negative mg/dL [place] Comment on above: Reference Range: Neg ative LEUKOCYTES, UA Negative Min/uL [place] Comment on above: Reference Range: Neg ative Nitrite, Urine Negative [place], [place] Comment on above: Reference Range: Neg ative Occult Blood,Urine Negative mg/dL [place], [place] Comment on above: Reference Range: Neg ative pH (U) 5.5 [pH] [place] Protein (U) [Mass/Vol] Negative mg/dL [place] Comment on above: Reference Range: Neg ative Specific [place], Urine 1.027 [place] Urobilinogen, Urine Normal mg/dL [place], [place] Comment on above: Reference Range: Nor mal (0-1) Test Performed by [facility], [facility] [address] [place], [place] Add On Lab Teston 05-23-2019 Sodium [Moles/Vol] Accepted [place], [place] Comment on above: Specimen available & acceptable for analysis. Test Performed by [facility], [address] [place] [address] [facility] [place] Add on test from HISon 05-23 Add on test from HIS Accepted Normal [facility] Comment on above: Result Comment: Spec imen available & acceptable for analysis. Performed By: #### P T, CMP3M, HEMDF, MG3 #### [facility] [address] [place], [place] Basic Metabolic Panelon 05-11 Calcium [Mass/Vol] 9.4 mg/dL Normal 8.4-10.4 [facility] Comment on above: Performed By: #### P T, CMP3M, HEMDF, MG3 #### [address] [place], [place] Glucose [Mass/Vol] 123 mg/dL High 70-100 [facility] Comment on above: Performed By: #### P T, CMP3M, HEMDF, MG3 #### [facility] [address] [place], [place] Anion gap [Moles/Vol] 12 Normal [facility] Comment on above: Performed By: #### P T, CMP3M, HEMDF, MG3 #### [address] [place], [place] CO2 [Moles/Vol] 20 mmol/L Low 22-30 [facility] Comment on above: Performed By: #### P T, CMP3M, HEMDF, MG3 #### [facility] [address] [place], [place] Creatinine [Mass/Vol] 0.75 mg/dL Normal 0.52-1.25 [facility] Comment on above: Performed By: #### P T, CMP3M, HEMDF, MG3 #### [facility] [address] [place], [place] GFR/1.73 sq M predicted among blacks MDRD (S/P/Bld) [Vol rate/Area] mL/min/{1.73_m2} Normal >60 [facility] Comment on above: Performed By: #### P T, CMP3M, HEMDF, MG3 #### [facility] [address] [place], [place] GFR/1.73 sq M predicted among non-blacks MDRD (S/P/Bld) [Vol rate/Area] mL/min/{1.73_m2} Normal >60 [facility] Comment on above: Result Comment: Sour ce- MDRD equation with creatinine calibration to IDMS(NKDEP) eGFR not recommended for drug dose adjustment Performed By: #### P T, CMP3M, HEMDF, MG3 #### [address] [place], [place] Urea nitrogen [Mass/Vol] 10 mg/dL Normal 7-20 [facility] Comment on above: Performed By: #### P T, CMP3M, HEMDF, MG3 #### [address] [place], [place] Potassium [Moles/Vol] 4.0 mmol/L Normal 3.5-5.1 [facility] Comment on above: Performed By: #### P T, CMP3M, HEMDF, MG3 #### [address] [place], [place] [Moles/Vol] 108 mmol/L High 98-107 [facility] Comment on above: Performed By: #### P T, CMP3M, HEMDF, MG3 #### [facility] [address] [place], [place] Sodium [Moles/Vol] 139 mmol/L Normal 135-145 [facility] Comment on above: Performed By: #### P T, CMP3M, HEMDF, MG3 #### [address] [place], [place] Basic Metabolic Panel w/ Ref levon to MGon 05-23-2019 Anion gap [Moles/Vol] 12 mmol/L [facility], [place] Calcium [Mass/Vol] 9.4 mg/dL 8.4 - 10. 4 mg/dL [facility], [place] [Moles/Vol] 108 mmol/L High 98 - 10 7 mmol/L [place] CO2 [Moles/Vol] 20 mmol/L Low 22 - 30 mmol/L [place] Creatinine [Mass/Vol] 0.75 mg/dL 0.52 - 1.25 mg/dL [place] EGFR IF NonAfrican [place] >60.0 >60 mL/min [place] Comment on above: Source- MDRD equatio n with creatinine calibration to IDMS(NKDEP) eGFR not recommended for drug dose adjustment GFR/1.73 sq M predicted among blacks MDRD (S/P/Bld) [Vol rate/Area] mL/min/{1.73_m2} >60 mL/min [place] Glucose [Mass/Vol] 123 mg/dL High 70 - 100 mg/dL [place] Potassium [Moles/Vol] 4.0 mmol/L 3.5 - 5.1 mmol/L [place] Sodium [Moles/Vol] 139 mmol/L 135 - 145 mmol/L [place] Urea nitrogen [Mass/Vol] 10 mg/dL 7 - 20 mg/dL [place] CBC auto differentialon 05-11 Absolute Baso # 0.0 10*3/uL 0 - 0.2 10*3/uL [place] Absolute Neut # 11.6 10*3/uL High 1.8 - 7 10*3/uL [place] Basophils/100 WBC (Bld) 0.3 % 0 - 2 % [place] Eosinophils (Bld) [#/Vol] 0.0 10*3/uL 0 - 0.5 10*3/uL [place] Eosinophils/100 WBC (Bld) 0.1 % Low 1 - 6 % [place] Erythrocyte distribution width (RBC) [Ratio] 13.6 % 11.5 - 14.5 % [place] Granulocytes/100 WBC (Bld) 88.7 % High 40 - 80 % [place] Hematocrit (Bld) [Volume fraction] 42.6 % 35 - 47 % [place] Hemoglobin (Bld) [Mass/Vol] 14.6 g/dL 11.7 - 16 g/dL [place] Interpretation and review of laboratory results Abnormal [place] Lymphocytes (Bld) [#/Vol] 1.3 10*3/uL 1 - 4.3 10*3/uL [place] Lymphocytes/100 WBC (Bld) 9.8 % Low 20 - 40 % [place] MCH (RBC) [Entitic mass] 28.3 pg 26 - 34 pg [place] MCHC (RBC) [Mass/Vol] 34.2 % 32 - 36 % [place] MCV (RBC) [Entitic vol] 82.8 fL 79 - 98 fL [place] Monocytes (Bld) [#/Vol] 0.1 10*3/uL 0 - 0.8 10*3/uL [place] Monocytes/100 WBC (Bld) 1.1 % Low 2 - 10 % [place] Platelet mean volume (Bld) [Entitic vol] 8.2 fL 7.4 - 10.4 fL [place] Platelets (Bld) [#/Vol] 307 10*3/uL 140 - 440 10*3/uL [place] RBC (Bld) [#/Vol] 5.14 10*6/uL 3.8 - 5.2 10*6/uL [place] WBC (Bld) [#/Vol] 13.1 10*3/uL High 3.6 - 10.7 10*3/uL [place] Test Performed by [facility], [address] [place] [address] [place] CSF cell count with olegario forrester 05-23-2019 Appearance (U) see below [place], [place] Comment on above: Clear and colorless Nucleated Cells, CSF 0 {cells}/uL 0 - 5 {cells}/uL [place] Red blood cells count, CSF 41 {RBC}/uL [place] Sodium [Moles/Vol] see below [place] Comment on above: Clear and colorless Test Performed by [facility] [address], [place] [address] [facility], [place] Cell Count,CSFon 05-23-2019 Appearance (U) see below Normal [facility] Comment on above: Result Comment: Shahla r and colorless Performed By: #### T HC4, CSFP3, DRGA4, CSFG3, HCGUR, CSFCC #### [address] [address] Nucleated Cells,CSF 0 {cells}/uL Normal 0-5 [facility] Comment on above: Performed By: #### T HC4, CSFP3, DRGA4, CSFG3, HCGUR, CSFCC #### [address] RBC Count,CSF 41 {RBC}/uL Normal [facility] Comment on above: Performed By: #### T HC4, CSFP3, DRGA4, CSFG3, HCGUR, CSFCC #### [address] [address] Supernatant see below Normal [facility] Comment on above: Result Comment: Shahla r and colorless Performed By: #### T HC4, CSFP3, DRGA4, CSFG3, HCGUR, CSFCC #### [address] [address] Drugs of Abuseon 05-23-2019 Phencyclidine (PCP), Ur Negative [facility] Comment on above: Result Comment: The [...] HC4, CSFP3, DRGA4, CSFG3, HCGUR, CSFCC #### [facility] [address] [place], [place] Methadone, Ur Negative Normal [facility] Comment on above: Performed By: #### T HC4, CSFP3, DRGA4, CSFG3, HCGUR, CSFCC #### [facility] [address] [place], [place] Opiates, Ur Positive Normal [facility] Comment on above: Performed By: #### T HC4, CSFP3, DRGA4, CSFG3, HCGUR, CSFCC #### [facility] [address] [place], [place] Cocaine, Ur Negative Normal [facility] Comment on above: Performed By: #### T HC4, CSFP3, DRGA4, CSFG3, HCGUR, CSFCC #### [facility] [address] [place], [place] Barbiturates, Ur Negative Normal [facility] Comment on above: Performed By: #### T HC4, CSFP3, DRGA4, CSFG3, HCGUR, CSFCC #### [facility] [address] [place], [place] Benzodiazepines, Ur Negative Normal [facility] Comment on above: Performed By: #### T HC4, CSFP3, DRGA4, CSFG3, HCGUR, CSFCC #### [facility] [address] [place], [place] Amphetamines, Ur Negative Normal [facility] Comment on above: Performed By: #### T HC4, CSFP3, DRGA4, CSFG3, HCGUR, CSFCC #### [facility] [address] [place], [place] Oxycodone/Oxymorphin e,Ur Negative Normal [facility] Comment on above: Performed By: #### T HC4, CSFP3, DRGA4, CSFG3, HCGUR, CSFCC #### [facility] [address] [place], [place] Glucose CSFon 05-23-2019 Glucose, CSF 73 mg/dL High 40 - 70 mg/dL [facility], [place] Interpretation and review of laboratory results Abnormal [place] Test Performed by [facility], [address] [place] [address] [place], [place] Glucose, CSFon 05-23-2019 Appearance (U) see below Normal [facility] Comment on above: Result Comment: Shahla r and colorless Performed By: #### P T, CMP3M, HEMDF, MG3 #### [facility] [address] [place], [place] Supernatant see below Normal [facility] Comment on above: Result Comment: Shahla r and colorless Performed By: #### P T, CMP3M, HEMDF, MG3 #### [facility] [address] [place], [place] Glucose, CSF 73 mg/dL High 40-70 [facility] Comment on above: Performed By: #### P T, CMP3M, HEMDF, MG3 #### [facility] [address] [place], [place] Gram stain CSFon 05-23-2019 INR Coag (Bld) [Relative time] Cytocentrifugation performed. Rare polymorphonuclear cells/lpf. No organisms seen. [place] Test Performed by [facility], [facility] [address] Specimen Source Comment:Spinal Fluid [place] Hemoglobin A1Con 05-23-2019 HbA1c (Bld) [Mass fraction] 5.2 % Normal 4.0-5.7 [facility] Comment on above: Result Comment: --Hg bA1C levels may not be accurate in patients who have renal disease, received recent blood transfusions, are anemic, or who have dyshemoglobinemia. Performed By: #### P T, CMP3M, HEMDF, MG3 #### [facility] [address] [place], [place] HbA1c (Bld) [Mass fraction] 103 mg/dL Normal [facility] Comment on above: Performed By: #### P T, CMP3M, HEMDF, MG3 #### [facility] [address] [place], [place] eAG 103 mg/dL [place] HbA1c (Bld) [Mass fraction] 5.2 % 4 - 5.7 % [place] Comment on above: --HgbA1C levels may not be accurate in patients who have renal disease, received recent blood transfusions, are anemic, or who have dyshemoglobinemia. Test Performed by [facility], [address] [place] [address] [place] Hemogram w/ Autodiffon 05-23 Abs Baso Cnt 0.0 10*3/uL Normal 0.0-0.2 [facility] Comment on above: Performed By: #### P T, CMP3M, HEMDF, MG3 #### [address] [address] Abs Neutrophile Cnt 11.6 10*3/uL High 1.8-7.0 [facility] Comment on above: Performed By: #### P T, CMP3M, HEMDF, MG3 #### [address] [address] Basophils/100 WBC (Bld) 0.3 % Normal 0.0-2.0 [facility] Comment on above: Performed By: #### P T, CMP3M, HEMDF, MG3 #### [address] [address] Eosinophils (Bld) [#/Vol] 0.0 10*3/uL Normal 0.0-0.5 [facility] Comment on above: Performed By: #### P T, CMP3M, HEMDF, MG3 #### [address] [address] Eosinophils/100 WBC (Bld) 0.1 % Low 1.0-6.0 [facility] Comment on above: Performed By: #### P T, CMP3M, HEMDF, MG3 #### [address] [address] Erythrocyte distribution width (RBC) [Ratio] 13.6 % Normal 11.5-14.5 [facility] Comment on above: Performed By: #### P T, CMP3M, HEMDF, MG3 #### [address] [place], [place] Granulocytes/100 WBC (Bld) 88.7 % High 40.0-80.0 [facility] Comment on above: Performed By: #### P T, CMP3M, HEMDF, MG3 #### [address] [place], [place] Hematocrit (Bld) [Volume fraction] 42.6 % Normal 35.0-47.0 [facility] Comment on above: Performed By: #### P T, CMP3M, HEMDF, MG3 #### [address] [place] Hemoglobin (Bld) [Mass/Vol] 14.6 g/dL Normal 11.7-16.0 [facility] Comment on above: Performed By: #### P T, CMP3M, HEMDF, MG3 #### [address] [place] Lymphocytes (Bld) [#/Vol] 1.3 10*3/uL Normal 1.0-4.3 [facility] Comment on above: Performed By: #### P T, CMP3M, HEMDF, MG3 #### [address] [place], [place] Lymphocytes/100 WBC (Bld) 9.8 % Low 20.0-40.0 [facility] Comment on above: Performed By: #### P T, CMP3M, HEMDF, MG3 #### [address] [place], [place] MCH (RBC) [Entitic mass] 28.3 pg Normal 26.0-34.0 [facility] Comment on above: Performed By: #### P T, CMP3M, HEMDF, MG3 #### [address] [place] MCHC (RBC) [Mass/Vol] 34.2 % Normal 32.0-36.0 [facility] Comment on above: Performed By: #### P T, CMP3M, HEMDF, MG3 #### [address] [place], [place] MCV (RBC) [Entitic vol] 82.8 fL Normal 79.0-98.0 [facility] Comment on above: Performed By: #### P T, CMP3M, HEMDF, MG3 #### [address] [place], [place] Monocytes (Bld) [#/Vol] 0.1 10*3/uL Normal 0.0-0.8 [facility] Comment on above: Performed By: #### P T, CMP3M, HEMDF, MG3 #### [address] [place], [place] Monocytes/100 WBC (Bld) 1.1 % Low 2.0-10.0 [facility] Comment on above: Performed By: #### P T, CMP3M, HEMDF, MG3 #### [address] [place], [place] Platelet mean volume (Bld) [Entitic vol] 8.2 fL Normal 7.4-10.4 [facility] Comment on above: Performed By: #### P T, CMP3M, HEMDF, MG3 #### [address] [place], [place] Platelets (Bld) [#/Vol] 307 10*3/uL Normal 140-440 [facility] Comment on above: Performed By: #### P T, CMP3M, HEMDF, MG3 #### [address] [place], [place] RBC (Bld) [#/Vol] 5.14 10*6/uL Normal 3.80-5.20 [facility] Comment on above: Performed By: #### P T, CMP3M, HEMDF, MG3 #### [address] [place], [place] WBC (Bld) [#/Vol] 13.1 10*3/uL High 3.6-10.7 [facility] Comment on above: Performed By: #### P T, CMP3M, HEMDF, MG3 #### [facility] [address] [place] [address] Lipid Panelon 05-23-2019 Cholesterol in HDL [Mass/Vol] 39 mg/dL Low 40-60 [facility] Comment on above: Performed By: #### P T, CMP3M, HEMDF, MG3 #### [facility] [address] [place] [address] Cholesterol.total/Ch olesterol in HDL [Mass ratio] 5 Normal [facility] Comment on above: Result Comment: Ref Range: < 3 Low Risk for CHD 3-6 Mod Risk for CHD > 6 High Risk for CHD Performed By: #### P T, CMP3M, HEMDF, MG3 #### [address] [place], [place] Protein [Mass/Vol] 135 mg/dL Abnormal <100 [facility] Comment on above: Performed By: #### P T, CMP3M, HEMDF, MG3 #### [facility] [address] [place], [place] Triglyceride [Mass/Vol] 106 mg/dL Normal <150 [facility] Comment on above: Performed By: #### P T, CMP3M, HEMDF, MG3 #### [facility] [address] [place] [address] Cholesterol [Mass/Vol] 195 mg/dL Normal < 200 [facility] Comment on above: Performed By: #### P T, CMP3M, HEMDF, MG3 #### [address] [place] [address] Cholesterol [Mass/Vol] 195 mg/dL <200 [facility], [place] Cholesterol in HDL [Mass/Vol] 39 mg/dL Low 40 - 60 mg/dL [facility] Cholesterol in LDL [Mass/Vol] 135 mg/dL Abnormal <100 [facility] Cholesterol.total/Ch olesterol in HDL [Mass ratio] 5 {ratio} [facility] [place] Comment on above: Ref Range: < 3 Low Risk for CHD 3-6 Mod Risk for CHD > 6 High Risk for CHD Triglyceride [Mass/Vol] 106 mg/dL <150 [facility] MENINGITIS/ENCEPHALITIS PCR PANELon 05-23-2019 MENINGITIS/ENCEPHALI TIS PCR [...] other clinical, laboratory, and epidemiological data. Normal [facility] Comment on above: Order Comment: Speci men Source Comment:CSF Performed By: #### P T, CMP3M, HEMDF, MG3 #### [facility] [address] [place] [address] MRA Head w/o Contraston 05-11 MRA Head w/o Contrast Patient Name: OMAR SERRANO MRI Exam Date/Time 05/22/2019 22:25:30 EDT Exam MRA Head w/o Contrast Ordering Physician Shawna TEMPLETON JOHN C Accession Number [id number] CPT4 Codes 18719 () Reason For Exam headache Report MRI [...] Transcribed Date and Time: 05/22/2019 10:40 Normal [facility] MRA Neck w/ + w/o Contraston 05-23-2019 MRA Neck w/ + w/o Contrast Patient Name: OMAR SERRANO MRI Exam Date/Time 05/22/2019 22:25:30 EDT Exam MRA Neck w/ + w/o Contrast Ordering Physician Shawna TEMPLETON JOHN C Accession Number [id number] CPT4 Codes 64865 () Reason For Exam headache Report MRI [...] Transcribed Date and Time: 05/22/2019 10:40 Normal [facility] MRI Brain w/ + w/o Contrasto n 05-23-2019 MRI Brain w/ + w/o Contrast Patient Name: OMAR SERRANO MRI Exam Date/Time 05/22/2019 22:25:30 EDT Exam MRI Brain w/ + w/o Contrast Ordering Physician Shawna TEMPLETON JOHN C Accession Number [id number] CPT4 Codes 01633 () Reason For Exam headache Report MRI [...] Transcribed Date and Time: 05/22/2019 10:40 Normal [facility] MRV Headon 05-23-2019 MRV Head Patient Name: OMAR SERRANO MRI Exam Date/Time 05/22/2019 22:25:30 EDT Exam MRV Head Ordering Physician Shawna TEMPLETON JOHN C Accession Number [id number] CPT4 Codes 49253 () Reason For Exam headache Report MRI [...] Time: 05/22/2019 10:41 pm Signed by: MD DAKOTAH, LINDA Transcribed Date and Time: 05/22/2019 10:40 Normal [facility] Magnesiumon 05-23-2019 Magnesium [Mass/Vol] 2.8 mg/dL High 1.6-2.3 [facility] Comment on above: Performed By: #### P T, CMP3M, HEMDF, MG3 #### [facility] [address] [place] [address] Magnesium [Mass/Vol] 2.8 mg/dL High 1.6 - 2 .3 mg/dL [facility], [place] Medical Cytologyon 9 Medical Cytology [facility] [id number] DEPARTMENT OF PATHOLOGY AND [facility] LABORATORY MEDICINE [address] [place] [address] [phone] FINAL MEDICAL CYTOLOGY REPORT NAME: OMAR SERRANO : 1985 33 Y F BILLING NO.: [id number] LOCATION: [address] [place] [address] [facility] PROCEDURE 05/23/2019 DATE: PHYSICIAN: MAURICIO TEMPLETON MD RECEIVED DATE: 05/26/2019 ATTENDING: SERAFIN LONG, REPORT DATE: 05/26/2019 D.O. COPIES TO: MEE COUGHLIN M.D.; CARROLL MARISCAL MD CLINICAL DATA: [...] characteristics determined by the clinical laboratories of [facility]. They have not been cleared by the [...] negativity on decalcified specimens. Case reviewed at [address] [place] [place] [address]. DEPARTMENT OF PATHOLOGY AND LABORATORY MEDICINE [place], [place] [address] Normal [facility] Meningitis/Encephalitis Pane l, CSFon 05-23-2019 Meningitis Encephalitis [...] with other clinical, laboratory, and epidemiological data. [employer] Test Performed by [facility], [address] [place] [id number] Specimen Source Comment:CSF [employer] Metabolic Panelon 05-23-2019 Sodium [Moles/Vol] see below [employer] Comment on above: Clear and colorless Otheron 05-23-2019 Interpretation and review of laboratory results Abnormal [employer] Test Performed by [facility], [facility] [place] [address] [employer] Protein CSFon 05-23-2019 Protein, CSF 39.6 mg/dL 12 - 60 mg/dL [facility], [place] Test Performed by [facility], [address] [place] [address] [facility], [place] Protein, CSFon 05-23-2019 Protein, CSF 39.6 mg/dL Normal 12.0-60.0 [facility] Comment on above: Performed By: #### T HC4, CSFP3, DRGA4, CSFG3, HCGUR, CSFCC #### [facility] [address] [place] [address] STAIN GRAMon 05-23-2019 STAIN GRAM STAIN GRAM --> Statu s: F Cytocentrifugation performed. Rare polymorphonuclear cells/lpf. No organisms seen. Rare polymorphonuclear cells/lpf. No organisms seen. Normal [facility] Comment on above: Order Comment: Speci men Source Comment:Spinal Fluid Performed By: #### P T, CMP3M, HEMDF, MG3 #### [facility] [address] [place] [address] THC, Urineon 05-23-2019 THC, Ur Negative Normal [facility] Comment on above: Result Comment: Thre shold= 50 ng/mL Performed By: #### T HC4, CSFP3, DRGA4, CSFG3, HCGUR, CSFCC #### [facility] [address] [place] [address] XA SPECIAL PROCEDUREon 05-23 Jose, [facility] Incoming Radiology Results From [facility] - 05/23/2019 5:46 PM EDT Patient Name: OMAR SERRANO ---Special Procedures--- Exam Date/Time 05/23/2019 17:29:59 EDT Exam XA Special Angiography Procedure Ordering Physician NEIL PORTER, SHAYY Zhang Accession Number [id number] Reason For Exam lumbar puncture with opening [...] KEVIN Transcribed Date and Time: 05/23/2019 5:26 [place], [place] Patient Name: OMAR SERRANO ---Special Procedures--- Exam Date/Time 05/23/2019 17:29:59 EDT Exam XA Special Angiography Procedure Ordering Physician NEIL PORTER REBECCA K. Accession Number [id number] Reason For Exam lumbar puncture with opening [...] KEVIN Transcribed Date and Time: 05/23/2019 5:26 [place] XA Special Angiography Proce iris 05-23-2019 XA Special Angiography Procedure Patient Name: OMAR SERRANO Special Procedures Exam Date/Time 05/23/2019 17:29:59 EDT Exam XA Special Angiography Procedure Ordering Physician NEIL PORTER, SHAYY Zhang Accession Number [id number] Reason For Exam lumbar puncture with opening pressure, if opening pressure >25, please drain 20-30ml and obtain closing pressure Addendum The original requisition did not include the request for closing pressure and CSF withdrawal amount, and therefore was not performed. If changes are made to an existing order, the department must be contacted to verify changes. Report Dictated on Workstation: [id number] Final Addendum Dictated: 05/23/2019 5:44 pm Addendum [...] Transcribed Date and Time: 05/23/2019 5:26 Normal [facility] Add On Lab Teston 05-22-2019 Sodium [Moles/Vol] Accepted [place], [place] Comment on above: Specimen available & acceptable for analysis. Test Performed by [facility], [address] [place] [address] [place] Add on test from HISon 05-22 Add on test from HIS Accepted Normal [facility] Comment on above: Result Comment: Spec imen available & acceptable for analysis. Performed By: #### A DDON #### [address] [address] CBC auto differentialon 05-11 Absolute Baso # 0.1 10*3/uL 0 - 0.2 10*3/uL [place] Absolute Neut # 9.8 10*3/uL High 1.8 - 7 10*3/uL [place] Basophils/100 WBC (Bld) 0.7 % 0 - 2 % [place] Eosinophils (Bld) [#/Vol] 0.1 10*3/uL 0 - 0.5 10*3/uL [place] Eosinophils/100 WBC (Bld) 0.7 % Low 1 - 6 % [place] Erythrocyte distribution width (RBC) [Ratio] 13.4 % 11.5 - 14.5 % [place] Granulocytes/100 WBC (Bld) 69.0 % 40 - 80 % [place] Hematocrit (Bld) [Volume fraction] 42.2 % 35 - 47 % [place] Hemoglobin (Bld) [Mass/Vol] 14.4 g/dL 11.7 - 16 g/dL [place] Interpretation and review of laboratory results Abnormal [place] Lymphocytes (Bld) [#/Vol] 3.2 10*3/uL 1 - 4.3 10*3/uL [place] Lymphocytes/100 WBC (Bld) 22.2 % 20 - 40 % [place] MCH (RBC) [Entitic mass] 28.1 pg 26 - 34 pg [place] MCHC (RBC) [Mass/Vol] 34.2 % 32 - 36 % [place] MCV (RBC) [Entitic vol] 82.1 fL 79 - 98 fL [place] Monocytes (Bld) [#/Vol] 1.1 10*3/uL High 0 - 0.8 10*3/uL [place] Monocytes/100 WBC (Bld) 7.4 % 2 - 10 % [place] Platelet mean volume (Bld) [Entitic vol] 7.6 fL 7.4 - 10.4 fL [place] Platelets (Bld) [#/Vol] 271 10*3/uL 140 - 440 10*3/uL [place] RBC (Bld) [#/Vol] 5.14 10*6/uL 3.8 - 5.2 10*6/uL [place] WBC (Bld) [#/Vol] 14.2 10*3/uL High 3.6 - 10.7 10*3/uL [place] Test Performed by [facility], [address] [place] [address] Cannabinoid, Urine, Screenin g, Critical Careon 05-22-2019 THC Negative [place] Comment on above: Threshold= 50 ng/mL Test Performed by [address] Comp Panel with Mg Reflexon 05-22-2019 ALT [Catalytic activity/Vol] 15 U/L Normal 13-69 [facility] Comment on above: Performed By: #### P T, CMP3M, HEMDF, MG3 #### [facility] [address] [place], [place] Calcium [Mass/Vol] 9.1 mg/dL Normal 8.4-10.4 [facility] Comment on above: Performed By: #### P T, CMP3M, HEMDF, MG3 #### [facility] [address] [place], [place] ALP [Catalytic activity/Vol] 103 U/L Normal 38-126 [facility] Comment on above: Performed By: #### P T, CMP3M, HEMDF, MG3 #### [facility] [address] [place], [place] Anion gap [Moles/Vol] 10 Normal [facility] Comment on above: Performed By: #### P T, CMP3M, HEMDF, MG3 #### [address] [place], [place] AST [Catalytic activity/Vol] 19 U/L Normal 15-46 [facility] Comment on above: Performed By: #### P T, CMP3M, HEMDF, MG3 #### [address] [place], [place] Bilirubin [Mass/Vol] 0.7 mg/dL Normal 0.2-1.3 [facility] Comment on above: Performed By: #### P T, CMP3M, HEMDF, MG3 #### [facility] [address] [place], [place] CO2 [Moles/Vol] 21 mmol/L Low 22-30 [facility] Comment on above: Performed By: #### P T, CMP3M, HEMDF, MG3 #### [facility] [address] [place], [place] Creatinine [Mass/Vol] 0.67 mg/dL Normal 0.52-1.25 [facility] Comment on above: Performed By: #### P T, CMP3M, HEMDF, MG3 #### [facility] [address] [place], [place] GFR/1.73 sq M predicted among blacks MDRD (S/P/Bld) [Vol rate/Area] mL/min/{1.73_m2} Normal >60 [facility] Comment on above: Performed By: #### P T, CMP3M, HEMDF, MG3 #### [address] [place], [place] GFR/1.73 sq M predicted among non-blacks MDRD (S/P/Bld) [Vol rate/Area] mL/min/{1.73_m2} Normal >60 [facility] Comment on above: Result Comment: Sour ce- MDRD equation with creatinine calibration to IDMS(NKDEP) eGFR not recommended for drug dose adjustment Performed By: #### P T, CMP3M, HEMDF, MG3 #### [address] [place], [place] Glucose [Mass/Vol] 94 mg/dL Normal 70-100 [facility] Comment on above: Performed By: #### P T, CMP3M, HEMDF, MG3 #### [address] [place], [place] Protein [Mass/Vol] 7.9 g/dL Normal 6.3-8.2 [facility] Comment on above: Performed By: #### P T, CMP3M, HEMDF, MG3 #### [address] [place], [place] Urea nitrogen [Mass/Vol] 10 mg/dL Normal 7-20 [facility] Comment on above: Performed By: #### P T, CMP3M, HEMDF, MG3 #### [address] [place], [place] Potassium [Moles/Vol] 4.0 mmol/L Normal 3.5-5.1 [facility] Comment on above: Performed By: #### P T, CMP3M, HEMDF, MG3 #### [address] [place], [place] Albumin [Mass/Vol] 4.2 g/dL Normal 3.5-5.0 [facility] Comment on above: Performed By: #### P T, CMP3M, HEMDF, MG3 #### [facility] [address] [place] [address] Sodium [Moles/Vol] 140 mmol/L Normal 135-145 [facility] Comment on above: Performed By: #### P T, CMP3M, HEMDF, MG3 #### [facility] [address] [place] [address] Chloride [Moles/Vol] 109 mmol/L High 98-107 [facility] Comment on above: Performed By: #### P T, CMP3M, HEMDF, MG3 #### [facility] [address] [place] [address] Comprehensive Metabolic Pane l w/ Reflex to MGon 05-22-2019 Albumin [Mass/Vol] 4.2 g/dL 3.5 - 5 g/dL [place] ALP [Catalytic activity/Vol] 103 U/L 38 - 126 U/L [place] ALT [Catalytic activity/Vol] 15 U/L 13 - 69 U/L [place] Anion gap [Moles/Vol] 10 mmol/L [place] AST [Catalytic activity/Vol] 19 U/L 15 - 46 U/L [place] Bilirubin Ql (U) 0.7 mg/dL 0.2 - 1.3 mg/dL [place] Calcium [Mass/Vol] 9.1 mg/dL 8.4 - 10. 4 mg/dL [place] Chloride [Moles/Vol] 109 mmol/L High 98 - 10 7 mmol/L [place] CO2 [Moles/Vol] 21 mmol/L Low 22 - 30 mmol/L [place] Creatinine [Mass/Vol] 0.67 mg/dL 0.52 - 1.25 mg/dL [place] EGFR IF NonAfrican [place]i >60.0 >60 mL/min [place] Comment on above: Source- MDRD equatio n with creatinine calibration to IDMS(NKDEP) eGFR not recommended for drug dose adjustment GFR/1.73 sq M predicted among blacks MDRD (S/P/Bld) [Vol rate/Area] mL/min/{1.73_m2} >60 mL/min [place] Glucose [Mass/Vol] 94 mg/dL 70 - 100 mg/dL [place] Interpretation and review of laboratory results Abnormal [place] Potassium [Moles/Vol] 4.0 mmol/L 3.5 - 5.1 mmol/L [place] Protein [Mass/Vol] 7.9 g/dL 6.3 - 8.2 g/dL [place] Sodium [Moles/Vol] 140 mmol/L 135 - 145 mmol/L [place] Urea nitrogen [Mass/Vol] 10 mg/dL 7 - 20 mg/dL [place] HCG,Urine Qualon 05-22-2019 Beta HCG ( test) Ql (U) Negative Normal Negative [facility] Comment on above: Result Comment: Preg arya is the most common reason for HCG in urine, although choriocarcinoma, hydatidiform mole, and certain nontropho- blastic malignancies also result in detectable urinary HCG levels. Sensitivity = 20mIU/mL. Performed By: #### T HC4, CSFP3, DRGA4, CSFG3, HCGUR, CSFCC #### [address] [place], [place] Hemogram w/ Autodiffon 05-22 Abs Baso Cnt 0.1 10*3/uL Normal 0.0-0.2 [facility] Comment on above: Performed By: #### P T, CMP3M, HEMDF, MG3 #### [address] [place], [place] Abs Neutrophile Cnt 9.8 10*3/uL High 1.8-7.0 [facility] Comment on above: Performed By: #### P T, CMP3M, HEMDF, MG3 #### [address] [place], [place] Basophils/100 WBC (Bld) 0.7 % Normal 0.0-2.0 [facility] Comment on above: Performed By: #### P T, CMP3M, HEMDF, MG3 #### [address] Eosinophils (Bld) [#/Vol] 0.1 10*3/uL Normal 0.0-0.5 [facility] Comment on above: Performed By: #### P T, CMP3M, HEMDF, MG3 #### [address] Eosinophils/100 WBC (Bld) 0.7 % Low 1.0-6.0 [facility] Comment on above: Performed By: #### P T, CMP3M, HEMDF, MG3 #### [address] Erythrocyte distribution width (RBC) [Ratio] 13.4 % Normal 11.5-14.5 [facility] Comment on above: Performed By: #### P T, CMP3M, HEMDF, MG3 #### [address] Granulocytes/100 WBC (Bld) 69.0 % Normal 40.0-80.0 [facility] Comment on above: Performed By: #### P T, CMP3M, HEMDF, MG3 #### [address] Hematocrit (Bld) [Volume fraction] 42.2 % Normal 35.0-47.0 [facility] Comment on above: Performed By: #### P T, CMP3M, HEMDF, MG3 #### [address] Hemoglobin (Bld) [Mass/Vol] 14.4 g/dL Normal 11.7-16.0 [facility] Comment on above: Performed By: #### P T, CMP3M, HEMDF, MG3 #### [address] Lymphocytes (Bld) [#/Vol] 3.2 10*3/uL Normal 1.0-4.3 [facility] Comment on above: Performed By: #### P T, CMP3M, HEMDF, MG3 #### [address] [place], [place] Lymphocytes/100 WBC (Bld) 22.2 % Normal 20.0-40.0 [facility] Comment on above: Performed By: #### P T, CMP3M, HEMDF, MG3 #### [address] MCH (RBC) [Entitic mass] 28.1 pg Normal 26.0-34.0 [facility] Comment on above: Performed By: #### P T, CMP3M, HEMDF, MG3 #### [address] [address] [place] MCHC (RBC) [Mass/Vol] 34.2 % Normal 32.0-36.0 [facility] Comment on above: Performed By: #### P T, CMP3M, HEMDF, MG3 #### [address] MCV (RBC) [Entitic vol] 82.1 fL Normal 79.0-98.0 [facility] Comment on above: Performed By: #### P T, CMP3M, HEMDF, MG3 #### [address] Monocytes (Bld) [#/Vol] 1.1 10*3/uL High 0.0-0.8 [facility] Comment on above: Performed By: #### P T, CMP3M, HEMDF, MG3 #### [address] Monocytes/100 WBC (Bld) 7.4 % Normal 2.0-10.0 [facility] Comment on above: Performed By: #### P T, CMP3M, HEMDF, MG3 #### [address] Platelet mean volume (Bld) [Entitic vol] 7.6 fL Normal 7.4-10.4 [facility] Comment on above: Performed By: #### P T, CMP3M, HEMDF, MG3 #### [address] [place], [place] Platelets (Bld) [#/Vol] 271 10*3/uL Normal 140-440 [facility] Comment on above: Performed By: #### P T, CMP3M, HEMDF, MG3 #### [address] RBC (Bld) [#/Vol] 5.14 10*6/uL Normal 3.80-5.20 [facility] Comment on above: Performed By: #### P T, CMP3M, HEMDF, MG3 #### [address] WBC (Bld) [#/Vol] 14.2 10*3/uL High 3.6-10.7 [facility] Comment on above: Performed By: #### P T, CMP3M, HEMDF, MG3 #### [address] MRA HEAD WO CONTRASTon 05-22 Patient Name: OMAR SERRANO ---MRI--- Exam Date/Time 05/22/2019 22:25:30 EDT Exam MRA Head w/o Contrast Ordering Physician Shawna TEMPLETON JOHN C Accession Number [id number] CPT4 Codes 54769 () Reason For Exam headache Report MRI [...] WENDELL Transcribed Date and Time: 05/22/2019 10:40 [place], [place] [facility], [facility] Incoming Radiology Results From [facility] - 05/22/2019 10:42 PM EDT Patient Name: OMAR SERRANO ---MRI--- Exam Date/Time 05/22/2019 22:25:30 EDT Exam MRA Head w/o Contrast Ordering Physician Shawna TEMPLETON JOHN C Accession Number [id number] CPT4 Codes 63293 () Reason For Exam headache Report MRI [...] WENDELL Transcribed Date and Time: 05/22/2019 10:40 [place] MRA NECK W WO CONTRASTon [facility] Incoming Radiology Results From [facility] - 05/22/2019 10:42 PM EDT Patient Name: OMAR SERRANO ---MRI--- Exam Date/Time 05/22/2019 22:25:30 EDT Exam MRA Neck w/ + w/o Contrast Ordering Physician Shawna TEMPLETON JOHN C Accession Number [id number] CPT4 Codes 79882 () Reason For Exam headache Report MRI [...] WENDELL Transcribed Date and Time: 05/22/2019 10:40 [place] Patient Name: OMAR SERRANO ---MRI--- Exam Date/Time 05/22/2019 22:25:30 EDT Exam MRA Neck w/ + w/o Contrast Ordering Physician Shawna TEMPLETON JOHN C Accession Number [id number] CPT4 Codes 46986 () Reason For Exam headache Report MRI [...] WENDELL Transcribed Date and Time: 05/22/2019 10:40 [place] MRI BRAIN W WO CONTRASTon [facility] 05/22/2019 10:42 PM EDT Patient Name: OMAR SERRANO ---MRI--- Exam Date/Time 05/22/2019 22:25:30 EDT Exam MRI Brain w/ + w/o Contrast Ordering Physician Shawna TEMPLETON JOHN C Accession Number [id number] CPT4 Codes 66225 () Reason For Exam headache Report MRI [...] WENDELL Transcribed Date and Time: 05/22/2019 10:40 [place] Patient Name: OMAR SERRANO ---MRI--- Exam Date/Time 05/22/2019 22:25:30 EDT Exam MRI Brain w/ + w/o Contrast Ordering Physician Shawna TEMPLETON JOHN C Accession Number [id number] CPT4 Codes 46199 () Reason For Exam headache Report MRI [...] WENDELL Transcribed Date and Time: 05/22/2019 10:40 [facility] MRV HEAD W WO CONTRASTon Patient Name: OMAR SERRANO ---MRI--- Exam Date/Time 05/22/2019 22:25:30 EDT Exam MRV Head Ordering Physician Shawna TEMPLETON JOHN C Accession Number [id number] CPT4 Codes 77278 () Reason For Exam headache Report MRI [...] WENDELL Transcribed Date and Time: 05/22/2019 10:40 [facility] [place] [facility] Incoming Radiology Results From [facility] - 05/22/2019 10:42 PM EDT Patient Name: OMAR SERRANO ---MRI--- Exam Date/Time 05/22/2019 22:25:30 EDT Exam MRV Head Ordering Physician Shawna TEMPLETON JOHN C Accession Number [id number] CPT4 Codes 64123 () Reason For Exam headache Report MRI [...] WENDELL Transcribed Date and Time: 05/22/2019 10:40 [place] Magnesiumon 05-22-2019 Magnesium [Mass/Vol] 2.2 mg/dL Normal 1.6-2.3 [facility] Comment on above: Performed By: #### P T, CMP3M, HEMDF, MG3 #### [address] [address] Magnesium [Mass/Vol] 2.2 mg/dL 1.6 - 2 .3 mg/dL [place] Otheron 05-22-2019 Test Performed by [facility], [address] [place] [id number] [place] [address] , Urineon 9 Beta HCG ( test) Ql (U) Negative Negative NA [place] Comment on above: is the mos t common reason for HCG in urine, although choriocarcinoma, hydatidiform mole, and certain nontropho- blastic malignancies also result in detectable urinary HCG levels. Sensitivity = 20mIU/mL. Test Performed by [facility], [address] [place] [id number] [place] [address] Prothrombin Timeon 9 INR Coag (PPP) [Relative time] 1.0 Normal 0.9-1.1 [facility] Comment on above: Result Comment: Willie mmended [...] #### P T, CMP3M, HEMDF, MG3 #### [facility] [address] [place] [address] PT Coag (PPP) [Time] 10.6 s Normal 9.0-12.0 [facility] Comment on above: Result Comment: . Performed By: #### P T, CMP3M, HEMDF, MG3 #### [address] [place] [address] Protime-INRon 05-22-2019 INR Coag (PPP) [Relative time] 1.0 {INR} [place] Comment on above: Recommended Anticoag ulant [...] [Time] 10.6 s 9 - 12 s [place], [place] Comment on above: . Test Performed by [facility], [facility] [place], [place] [id number] [place] [address] URINE DRUG SCREENon 05-22-20 19 Amphetamines, urine Negative [facility], [place] Barbiturates, Ur Negative [facility] Benzodiazepine Ur Qual Negative [facility] Cocaine Metabolites, Ur Negative [facility] Methadone, Urine Negative [facility] Opiates, Urine Positive [facility] Oxycodone Screen, Ur Negative [facility], [place] PCP, Urine Negative [facility], [place] Comment on above: The expected value f [...] confirmation under separate order. Test Performed by [facility], [address] [place] [id number] [facility] Emergency Room Note on 03-22-2017 [place] [facility] Note Normal [facility] Patient Summary Documentson 03-22-2017 Patient Summary Documents Normal [facility] XR CHEST 2 VIEWSon 7 XR CHEST [...] PM Sign Date: 03/22/2017 12:39:16 PM Normal [facility] No Panel Information [facility] Vital Signs Date Time Vital Sign Value Performing Clinician Facility 01-22-2025 13:53-0400 Body height 167.6 cm Pac 9 Work Phone: [facility] 01-22-2025 13:53-0400 Body mass index (BMI) [Ratio] 40.67 kg/m2 Pac 9 Work Phone: [facility] 01-22-2025 13:53-0400 Body temperature 97.59 [degF] Pac 9 Work Phone: [facility] 01-22-2025 13:53-0400 Body weight 114.3 kg Pac 9 Work Phone: [facility] 01-22-2025 13:53-0400 Diastolic blood pressure 89 mm[Hg] [facility] 9 Work Phone: [facility] 01-22-2025 13:53-0400 Heart rate 82 /min [facility] 9 Work Phone: [facility] 01-22-2025 13:53-0400 SaO2% (BldA) [Mass fraction] 98 % [facility] 9 Work Phone: [facility] 01-22-2025 13:53-0400 Systolic blood pressure 149 mm[Hg] [facility] 9 Work Phone: [facility] 11-10-2024 13:41-0500 Body height 167.6 cm Jaswant Askew MD Work Phone: [facility] 11-10-2024 13:41-0500 Body mass index (BMI) [Ratio] 40.35 kg/m2 Jaswant Askew MD Work Phone: [facility] 11-10-2024 13:41-0500 Body temperature 97.2 [degF] Jaswant Askew MD Work Phone: [facility] 11-10-2024 13:41-0500 Body weight 113.4 kg Jaswant Askew MD Work Phone: [facility] 11-10-2024 13:41-0500 Diastolic blood pressure 96 mm[Hg] Jaswant Askew MD Work Phone: [facility] 11-10-2024 13:41-0500 Heart rate 79 /min Jaswant Askew MD Work Phone: [facility] 11-10-2024 13:41-0500 Systolic blood pressure 168 mm[Hg] Jaswant Askew MD Work Phone: [facility] 09-26-2024 13:12-0500 Body height 167.6 cm Rhianna Campo MD Work Phone: [facility] 09-26-2024 13:12-0500 Body mass index (BMI) [Ratio] 38.74 kg/m2 Rhianna Campo MD Work Phone: [facility] 09-26-2024 13:12-0500 Body weight 108.86 kg Rhianna Campo MD Work Phone: [facility] 01-10-2025 18:49-0500 Blood Pressure Cuff Size ROC BURT MD [facility] 09-19-2024 18:49-0500 Blood Pressure Location ROC BURT MD [facility] 09-19-2024 18:49-0500 Blood Pressure Method ROC BURT MD [facility] 09-19-2024 18:49-0500 Body temperature 98.42 [degF] ROC BURT MD [facility] 09-19-2024 18:49-0500 Diastolic Blood Pressure Non-Invasive 100 mm[Hg] ROC BURT MD [facility] 09-19-2024 18:49-0500 Heart rate 89 /min ROC BURT MD [facility] 09-19-2024 18:49-0500 Respiratory rate 16 /min ROC BURT MD [facility] 09-19-2024 18:49-0500 Systolic Blood Pressure Non-Invasive 162 mm[Hg] ROC BURT MD [facility] 08-25-2024 01:14-0500 Diastolic Blood Pressure Non-Invasive 98 mm[Hg] BROOK OLIVER MD [facility] 08-25-2024 01:14-0500 Heart rate 89 /min BROOK OLIVER MD [facility] 08-25-2024 01:14-0500 Reason For Taking VItal Signs BROOK OLIVER MD [facility] 08-25-2024 01:14-0500 Respiratory rate 15 /min BROOK OLIVER MD [facility] 08-25-2024 01:14-0500 Systolic Blood Pressure Non-Invasive 142 mm[Hg] BROOK OLIVER MD [facility] 08-25-2024 00:45-0500 Diastolic Blood Pressure Non-Invasive 87 mm[Hg] BROOK OLIVER MD [facility] 08-25-2024 00:45-0500 Heart rate 76 /min BROOK OLIVER MD [facility] 08-25-2024 00:45-0500 Reason For Taking VItal Signs BROOK OLIVER MD [facility] 08-25-2024 00:45-0500 Respiratory rate 16 /min BROOK OLIVER MD [facility] 08-25-2024 00:45-0500 Systolic Blood Pressure Non-Invasive 139 mm[Hg] BROOK OLIVER MD [facility] 08-24-2024 23:35-0500 Body temperature 97.7 [degF] BROOK OLIVER MD [facility] 08-24-2024 23:35-0500 Diastolic Blood Pressure Non-Invasive 92 mm[Hg] BROOK OLIVER MD [facility] 08-24-2024 23:35-0500 Heart rate 92 /min BROOK OLIVER MD [facility] 08-24-2024 23:35-0500 Respiratory rate 16 /min BROOK OLIVER MD [facility] 08-24-2024 23:35-0500 Systolic Blood Pressure Non-Invasive 186 mm[Hg] BROOK OLIVER MD [facility] 07-25-2024 10:49-0500 Body height 167.6 cm Pacc 1 Work Phone: [facility] 07-25-2024 10:49-0500 Body mass index (BMI) [Ratio] 39.5 kg/m2 Pacc 1 Work Phone: [facility] 07-25-2024 10:49-0500 Body temperature 96.8 [degF] Pacc 1 Work Phone: [facility] 07-25-2024 10:49-0500 Body weight 111 kg Pacc 1 Work Phone: [facility] 07-25-2024 10:49-0500 Diastolic blood pressure 89 mm[Hg] Pacc 1 Work Phone: [facility] 07-25-2024 10:49-0500 Heart rate 79 /min Pacc 1 Work Phone: [facility] 07-25-2024 10:49-0500 Respiratory rate 20 /min Pacc 1 Work Phone: [facility] 07-25-2024 10:49-0500 SaO2% (BldA) [Mass fraction] 100 % Pacc 1 Work Phone: [facility] 07-25-2024 10:49-0500 Systolic blood pressure 135 mm[Hg] Pacc 1 Work Phone: [facility] 07-24-2024 18:50-0500 Diastolic Blood Pressure Non-Invasive 91 mm[Hg] BROOK OLIVER MD [facility] 07-24-2024 18:50-0500 Heart rate 92 /min BROOK OLIVER MD [facility] 07-24-2024 18:50-0500 Respiratory rate 16 /min BROOK OLIVER MD [facility] 07-24-2024 18:50-0500 Systolic Blood Pressure Non-Invasive 137 mm[Hg] BROOK OLIVER MD [facility] 07-24-2024 16:06-0500 Body height 167.6 cm BROOK OLIVER MD [facility] 07-24-2024 16:06-0500 Body temperature 97.16 [degF] BROOK OLIVER MD [facility] 07-24-2024 16:06-0500 Body weight 106.8 kg BROOK OLIVER MD [facility] 07-24-2024 16:06-0500 Diastolic Blood Pressure Non-Invasive 99 mm[Hg] BROOK OLIVER MD [facility] 07-24-2024 16:06-0500 Heart rate 89 /min BROOK OLIVER MD [facility] 07-24-2024 16:06-0500 Respiratory rate 16 /min BROOK OLIVER MD [facility] 07-24-2024 16:06-0500 Systolic Blood Pressure Non-Invasive 140 mm[Hg] BROOK OLIVER MD [facility] 07-15-2024 17:22-0500 Diastolic Blood Pressure Non-Invasive 102 mm[Hg] DR DELROY ZHOU MD [facility] 07-15-2024 17:22-0500 Heart rate 94 /min DR DELROY ZHOU MD [facility] 07-15-2024 17:22-0500 Respiratory rate 16 /min DR DELROY ZHOU MD [facility] 07-15-2024 17:22-0500 Systolic Blood Pressure Non-Invasive 155 mm[Hg] DR DELROY ZHOU MD [facility] 07-15-2024 15:51-0500 Body temperature 98.06 [degF] DR DELROY ZHOU MD [facility] 07-15-2024 15:51-0500 Body weight 108.[address] DELROY ZHOU MD [facility] 07-15-2024 15:51-0500 Diastolic Blood Pressure Non-Invasive 95 mm[Hg] DR DELROY ZHOU MD [facility] 07-15-2024 15:51-0500 Heart rate 100 /min DR DELROY ZHOU MD [facility] 07-15-2024 15:51-0500 Respiratory rate 16 /min DR DELROY ZHOU MD [facility] 07-15-2024 15:51-0500 Systolic Blood Pressure Non-Invasive 141 mm[Hg] DR DELROY ZHOU MD [facility] 06-12-2024 22:43-0400 Diastolic Blood Pressure Non-Invasive 90 mm[Hg] OMEGA HARRIS MD [facility] 06-12-2024 22:43-0400 Heart rate 65 /min OMEGA HARRIS MD [facility] 06-12-2024 22:43-0400 Reason For Taking VItal Signs OMEGA HARRIS MD [facility] 06-12-2024 22:43-0400 Respiratory rate 16 /min OMEGA HARRIS MD [facility] 06-12-2024 22:43-0400 Systolic Blood Pressure Non-Invasive 146 mm[Hg] OMEGA HARRIS MD [facility] 06-12-2024 21:02-0400 Body temperature 98.24 [degF] OMEGA HARRIS MD [facility] 06-12-2024 21:02-0400 Diastolic Blood Pressure Non-Invasive 111 mm[Hg] OMEGA HARRIS MD [facility] 06-12-2024 21:02-0400 Heart rate 77 /min OMEGA HARRIS MD [facility] 06-12-2024 21:02-0400 Respiratory rate 16 /min OMEGA HARRIS MD [facility] 06-12-2024 21:02-0400 Systolic Blood Pressure Non-Invasive 172 mm[Hg] OMEGA HARRIS MD [facility] 06-12-2024 12:25-0400 Diastolic blood pressure 76 mm[Hg] Helwa Taweel PA-C Work Phone: [facility] 06-12-2024 12:25-0400 Heart rate 71 /min Helwa Taweel PA-C Work Phone: [facility] 06-12-2024 12:25-0400 SaO2% (BldA) [Mass fraction] 99 % Helwa Taweel PA-C Work Phone: [facility] 06-12-2024 12:25-0400 Systolic blood pressure 164 mm[Hg] Helwa Taweel PA-C Work Phone: [facility] 06-12-2024 10:50-0400 Body temperature 97.81 [degF] Helwa Taweel PA-C Work Phone: [facility] 06-12-2024 10:50-0400 Respiratory rate 16 /min Helwa Taweel PA-C Work Phone: [facility] 04-27-2024 15:01-0400 Body mass index (BMI) [Ratio] 37.58 kg/m2 Adwoa Mosley DAIRY FEED WORKER.ARCHIVAL STUDIES PROFESSOR Work Phone: [facility] 04-27-2024 15:01-0400 Body temperature 98.1 [degF] Adwoa Mosley DAIRY FEED WORKER.ARCHIVAL STUDIES PROFESSOR Work Phone: [facility] 04-27-2024 15:01-0400 Body weight 104.8 kg Adwoa Mosley DAIRY FEED WORKER.ARCHIVAL STUDIES PROFESSOR Work Phone: [facility] 04-27-2024 15:01-0400 Diastolic blood pressure 90 mm[Hg] Adwoa Mosley DAIRY FEED WORKER.ARCHIVAL STUDIES PROFESSOR Work Phone: [facility] 04-27-2024 15:01-0400 Heart rate 70 /min Adwoa Mosley DAIRY FEED WORKER.ARCHIVAL STUDIES PROFESSOR Work Phone: [facility] 04-27-2024 15:01-0400 Respiratory rate 18 /min Adwoa Mosley DAIRY FEED WORKER.ARCHIVAL STUDIES PROFESSOR Work Phone: [facility] 04-27-2024 15:01-0400 SaO2% (BldA) [Mass fraction] 100 % Adwoa Mosley DAIRY FEED WORKER.ARCHIVAL STUDIES PROFESSOR Work Phone: [facility] 04-27-2024 15:01-0400 Systolic blood pressure 132 mm[Hg] Adwoa Mosley DAIRY FEED WORKER.ARCHIVAL STUDIES PROFESSOR Work Phone: [facility] 04-17-2024 09:38-0400 Body height 167 cm Eulalia MOSES-C Work Phone: [facility] 04-17-2024 09:38-0400 Body mass index (BMI) [Ratio] 38.12 kg/m2 Eulalia Jakubek PA-C Work Phone: [facility] 04-17-2024 09:38-0400 Body temperature 98.01 [degF] Eulalia Hughesk PA-C Work Phone: [facility] 04-17-2024 09:38-0400 Body weight 106.3 kg Eulalia Hughesk PA-C Work Phone: [facility] 04-17-2024 09:38-0400 Diastolic blood pressure 95 mm[Hg] Eulalia Hughesk PA-C Work Phone: [facility] Comment on above: provider notified 04-17-2024 09:38-0400 Heart rate 65 /min Eulalia Hughesk PA-C Work Phone: [facility] 04-17-2024 09:38-0400 Respiratory rate 18 /min Eulalia Hughesk PA-C Work Phone: [facility] 04-17-2024 09:38-0400 SaO2% (BldA) [Mass fraction] 100 % Eulalia Hughesk PA-C Work Phone: [facility] 04-17-2024 09:38-0400 Systolic blood pressure 140 mm[Hg] Eulalia Hughesk PA-C Work Phone: [facility] Comment on above: provider notified 03-25-2024 13:50-0400 Body mass index (BMI) [Ratio] 37.97 kg/m2 Adwoa Mosley APRN.ARCHIVAL STUDIES PROFESSOR Work Phone: [facility] 03-25-2024 13:50-0400 Body temperature 98.49 [degF] Adwoa Mosley APRN.ARCHIVAL STUDIES PROFESSOR Work Phone: [facility] 03-25-2024 13:50-0400 Body weight 106.7 kg Adwoa Mosley APRN.ARCHIVAL STUDIES PROFESSOR Work Phone: [facility] 03-25-2024 13:50-0400 Diastolic blood pressure 94 mm[Hg] Adwoa Mosley APRN.ARCHIVAL STUDIES PROFESSOR Work Phone: [facility] 03-25-2024 13:50-0400 Heart rate 94 /min Adwoa Mosley DAIRY FEED WORKER.ARCHIVAL STUDIES PROFESSOR Work Phone: [facility] 03-25-2024 13:50-0400 Respiratory rate 18 /min Adwoa Mosley DAIRY FEED WORKER.ARCHIVAL STUDIES PROFESSOR Work Phone: [facility] 03-25-2024 13:50-0400 SaO2% (BldA) [Mass fraction] 97 % Adwoa Mosley DAIRY FEED WORKER.ARCHIVAL STUDIES PROFESSOR Work Phone: [facility] 03-25-2024 13:50-0400 Systolic blood pressure 139 mm[Hg] Adwoa Mosley DAIRY FEED WORKER.ARCHIVAL STUDIES PROFESSOR Work Phone: [facility] 02-09-2024 11:05-0400 Diastolic Blood Pressure Non-Invasive 86 mm[Hg] DR JOHN CORDOVA MD [facility] 02-09-2024 11:05-0400 Heart rate 62 /min DR JOHN CORDOVA MD [facility] 02-09-2024 11:05-0400 Respiratory rate 16 /min DR JOHN CORDOVA MD [facility] 02-09-2024 11:05-0400 Systolic Blood Pressure Non-Invasive 142 mm[Hg] DR JOHN CORDOVA MD [facility] 02-09-2024 09:37-0400 Blood Pressure Cuff Size DR JOHN CORDOVA MD [facility] 02-09-2024 09:37-[address] JOHN CORDOVA MD [facility] 02-09-2024 09:37-[address] JOHN CORDOVA MD [facility] 02-09-2024 09:37-0400 Body temperature 97.52 [degF] DR JOHN CORDOVA MD [facility] 02-09-2024 09:37-0400 Diastolic Blood Pressure Non-Invasive 100 mm[Hg] DR JOHN CORDOVA MD [facility] 02-09-2024 09:37-0400 Heart rate 70 /min DR JOHN CORDOVA MD [facility] 02-09-2024 09:37-0400 Respiratory rate 18 /min DR JONH CORDOVA MD [facility] 02-09-2024 09:37-0400 Systolic Blood Pressure Non-Invasive 148 mm[Hg] DR JOHN CORDOVA MD [facility] 01-28-2024 19:43-0400 Body temperature 98.06 [degF] ROC BURT MD [facility] 01-28-2024 19:43-0400 Body weight 106.8 kg ROC BURT MD [facility] 01-28-2024 19:43-0400 Diastolic Blood Pressure Non-Invasive 87 mm[Hg] ROC BURT MD [facility] 01-28-2024 19:43-0400 Heart rate 75 /min ROC BURT MD [facility] 01-28-2024 19:43-0400 Respiratory rate 16 /min ROC BURT MD [facility] 01-28-2024 19:43-0400 Systolic Blood Pressure Non-Invasive 122 mm[Hg] ROC BURT MD [facility] 12-13-2023 16:16-0400 Body temperature 97.5 [degF] Danielle Hernandez DAIRY FEED WORKER.ARCHIVAL STUDIES PROFESSOR Work Phone: [facility] 12-13-2023 16:16-0400 Body weight 104 kg Danielle Hernandez DAIRY FEED WORKER.ARCHIVAL STUDIES PROFESSOR Work Phone: [facility] 12-13-2023 16:16-0400 Diastolic blood pressure 96 mm[Hg] Danielle Hernandez DAIRY FEED WORKER.ARCHIVAL STUDIES PROFESSOR Work Phone: [facility] 12-13-2023 16:16-0400 Heart rate 83 /min Danielle Hernandez DAIRY FEED WORKER.ARCHIVAL STUDIES PROFESSOR Work Phone: [facility] 12-13-2023 16:16-0400 Respiratory rate 18 /min Danielle Hernandez DAIRY FEED WORKER.ARCHIVAL STUDIES PROFESSOR Work Phone: [facility] 12-13-2023 16:16-0400 SaO2% (BldA) [Mass fraction] 100 % Danielle Hernandez DAIRY FEED WORKER.ARCHIVAL STUDIES PROFESSOR Work Phone: [facility] 12-13-2023 16:16-0400 Systolic blood pressure 146 mm[Hg] Danielle Hernandez DAIRY FEED WORKER.ARCHIVAL STUDIES PROFESSOR Work Phone: [facility] 03-05-2023 21:30-0400 Diastolic Blood Pressure Non-Invasive 100 1 ROC BURT MD [facility] 03-05-2023 21:30-0400 Heart rate 84 /min RCO BURT MD [facility] 03-05-2023 21:30-0400 Respiratory rate 18 /min ROC BURT MD [facility] 03-05-2023 21:30-0400 Systolic Blood Pressure Non-Invasive 152 1 ROC BURT MD [facility] 03-05-2023 20:59-0400 Blood Pressure Cuff Size ROC BURT MD [facility] 03-05-2023 20:59-0400 Blood Pressure Location ROC BURT MD [facility] 03-05-2023 20:59-0400 Blood Pressure Method ROC BURT MD [facility] 03-05-2023 20:59-0400 Body temperature 98.6 [degF] ROC BURT MD [facility] 03-05-2023 20:59-0400 Diastolic Blood Pressure Non-Invasive 104 1 ROC BURT MD [facility] 03-05-2023 20:59-0400 Heart rate 84 /min ROC BURT MD [facility] 03-05-2023 20:59-0400 Respiratory rate 18 /min ROC BURT MD [facility] 03-05-2023 20:59-0400 Systolic Blood Pressure Non-Invasive 184 1 ROC BURT MD [facility] 02-12-2023 23:41-0400 Diastolic Blood Pressure Non-Invasive 86 1 [facility] 02-12-2023 23:41-0400 Heart rate 76 /min [facility] 02-12-2023 23:41-0400 Respiratory rate 13 /min [facility] 02-12-2023 23:41-0400 Systolic Blood Pressure Non-Invasive 126 1 [facility] 02-12-2023 23:30-0400 Diastolic Blood Pressure Non-Invasive 79 1 [facility] 02-12-2023 23:30-0400 Respiratory rate 15 /min [facility] 02-12-2023 23:30-0400 Systolic Blood Pressure Non-Invasive 137 1 NONE [facility] 02-12-2023 23:16-0400 Diastolic Blood Pressure Non-Invasive 90 1 NONE [facility] 02-12-2023 23:16-0400 Heart rate 72 /min NONE [facility] 02-12-2023 23:16-0400 Systolic Blood Pressure Non-Invasive 134 1 NONE [facility] 02-12-2023 23:02-0400 Heart rate 87 /min NONE [facility] 02-12-2023 22:48-0400 Body temperature 96.08 [degF] NONE [facility] 02-12-2023 22:45-0400 Respiratory Rate - Anes 0 br/min NONE [facility] 02-12-2023 22:40-0400 Respiratory Rate - Anes 12 br/min NONE [facility] 02-12-2023 22:35-0400 Respiratory Rate - Anes 16 br/min NONE [facility] 02-12-2023 22:30-0400 Body temperature 95.67 [degF] NONE [facility] 02-12-2023 22:25-0400 Body temperature 95.45 [degF] NONE [facility] 02-12-2023 22:20-0400 Body temperature 95.43 [degF] NONE [facility] 02-12-2023 20:29-0400 Body temperature 96.98 [degF] NONE [facility] 02-12-2023 20:29-0400 Heart rate 78 /min NONE [facility] 02-12-2023 20:29-0400 Respiratory rate 21 /min NONE [facility] 02-12-2023 17:27-0400 Body height 167.6 cm NONE [facility] 02-12-2023 17:27-0400 Body temperature 98.06 [degF] NONE [facility] 02-12-2023 17:27-0400 Body weight 106.8 kg NONE PHYSICIAN [facility] 02-12-2023 17:27-0400 Heart rate 79 /min NONE [facility] 02-07-2023 19:37-0400 Body temperature 98.24 [degF] DR INDIA TUTTLE MD [facility] 02-07-2023 19:37-0400 Diastolic Blood Pressure Non-Invasive [address] INDIA TUTTLE MD [facility] 02-07-2023 19:37-0400 Heart rate 80 /min DR INDIA TUTTLE MD [facility] 02-07-2023 19:37-0400 Respiratory rate 20 /min DR INDIA TUTTLE MD [facility] 02-07-2023 19:37-0400 Systolic Blood Pressure Non-Invasive [address] INDIA TUTTLE MD [facility] 02-07-2023 17:00-0400 Body temperature 98.42 [degF] DR INDIA TUTTLE MD [facility] 02-07-2023 17:00-0400 Diastolic Blood Pressure Non-Invasive [address] INDIA TUTTLE MD [facility] 02-07-2023 17:00-0400 Heart rate 89 /min DR INDIA TUTTLE MD [facility] 02-07-2023 17:00-0400 Respiratory rate 16 /min DR INDIA TUTTLE MD [facility] 02-07-2023 17:00-0400 Systolic Blood Pressure Non-Invasive [address] INDIA TUTTLE MD [facility] 12-13-2022 15:09040 Body temperature 101.41 [degF] Cresencio Athy PA-C Work Phone: [facility] 12-13-2022 15:09-0400 Diastolic blood pressure 88 mm[Hg] Cresencio Athy PA-C Work Phone: [facility] 12-13-2022 15:090400 Heart rate 120 /min Cresencio Athy PA-C Work Phone: [facility] 12-13-2022 15:090400 Respiratory rate 19 /min Cresencio Athy PA-C Work Phone: [facility] 12-13-2022 15:090400 SaO2% (BldA) [Mass fraction] 98 % Cresencio Athy PA-C Work Phone: [facility] 12-13-2022 15:090400 Systolic blood pressure 150 mm[Hg] Cresencio Athy PA-C Work Phone: [facility] 05-26-2019 21:00-0400 BP Diastolic 81 mm[Hg] [facility] [place] 05-26-2019 21:00-0400 BP Systolic 124 mm[Hg] [place], [place] 05-26-2019 21:00-0400 Pulse (Heart Rate) 81 /min [place], [place] 05-26-2019 21:00-0400 Pulse [facility] 100 [facility] [place] [facility] [place] 05-26-2019 17:35-0400 Respiratory Rate 18 /min [facility] [place] 05-26-2019 15:11-0400 BMI (Body Mass Index) 37.93 kg/m2 [place], [place] 05-26-2019 15:11-0400 Body Temperature 97.9 [degF] [facility] [place] 05-26-2019 15:11-0400 Body weight 106.59 kg [place], [place] 05-26-2019 15:11-0400 Height 167.6 cm Gene Wiley [facility] , [place] 05-25-2019 09:05-0400 Body Temperature 99.1 [degF] [facility], [place] 05-25-2019 09:05-0400 BP Diastolic 79 mm[Hg] [facility], [place] 05-25-2019 09:05-0400 BP Systolic 121 mm[Hg] [facility], [place] 05-25-2019 09:05-0400 Pulse (Heart Rate) 70 /min [facility], [place] 05-25-2019 09:05-0400 Pulse Oximetry 98 % [facility], [place] 05-25-2019 09:05-0400 Respiratory Rate 18 /min [place], [place] 05-24-2019 06:15-0400 BMI (Body Mass Index) 37.12 kg/m2 [place], [place] 05-24-2019 06:15-0400 Body weight 104.33 kg [place] 05-22-2019 18:34-0400 Height 167.6 cm [place] Encounters Encounter Date Encounter Type Care Provider Facility Start: 02-06-2025 End: 02-08-2025 Evaluation and management of inpatient JASWANT ASKEW Facility:[facility] Start: 02-02-2025 End: 02-02-2025 Emergency department patient visit No Primary Care Physician Facility:[facility] Start: 02-02-2025 End: 02-02-2025 ambulatory Norma Reddy RN NURSE CASH PROCESSOR Comment on above: Toothache Start: 01-22-2025 End: 01-22-2025 ambulatory DE GALLEGOS Facility:[facility] Start: 01-22-2025 End: 01-22-2025 Admission to establishment [facility] [address] Work Phone: Pre Anesthesia Start: 01-22-2025 End: 01-22-2025 Patient encounter procedure De Gallegos PhD Work Phone: General Surgery Comment on above: Abdominal pain, unsp ecified abdominal location (Primary Dx); Recurrent incisional hernia Pre-op evaluation (P rimary Dx); Preoperative examination; Recurrent incisional hernia; At risk for sleep apnea; Difficult intravenous access; Migraine with aura and without status migrainosus, not intractable; IIH (idiopathic intracranial hypertension); Hypertension, unspecified type; Gastroesophageal reflux disease with esophagitis without hemorrhage; Episode of recurrent major depressive disorder, unspecified depression episode severity Start: 01-22-2025 End: 01-22-2025 Preprocedural examination done [facility] Main Work Phone: [facility] Work Phone: Start: 01-22-2025 End: 01-22-2025 ambulatory [facility] Facility:[facility] Start: 01-22-2025 Encounter for other preprocedural examination [facility] Start: 01-13-2025 Encounter for genera l adult medical examination without abnormal findings SUGEY ALLAN [facility] Start: 01-13-2025 End: 01-13-2025 ambulatory Sugey Allan DAIRY FEED WORKER.ARCHIVAL STUDIES PROFESSOR Work Phone: NEUROLOGY Comment on above: IIH (idiopathic intr acranial hypertension) (Primary Dx); Healthcare maintenance Start: 01-13-2025 End: 01-13-2025 Patient encounter status Sugey Allan APRN.ARCHIVAL STUDIES PROFESSOR Work Phone: [facility] Start: 01-13-2025 End: 01-13-2025 Telemedicine consultation with patient Sugey Allan DAIRY FEED WORKER.ARCHIVAL STUDIES PROFESSOR Work Phone: NEUROLOGY Start: 01-08-2025 ambulatory SUGEY ALLAN Facilit y:[facility] Start: 01-08-2025 End: 01-08-2025 Subsequent hospital visit by physician Mri 6 Radio Main Q (I-Stat/1.5t/3t) Work Phone: MRI Q Comment on above: Intracranial vascula r stenosis [I67.9] Start: 12-26-2024 End: 12-26-2024 Emergency department patient visit NONE PHYSICIAN Facility:[facility] Start: 11-14-2024 End: 11-14-2024 E-mail encounter from caregiver Chula Morton MD Work Phone: [facility] Start: 11-14-2024 End: 11-14-2024 Patient encounter procedure Chula Morton MD Work Phone: End[facility] Center Comment on above: Cerebrovascular Neur ology Appointment Reminder Start: 11-12-2024 End: 11-13-2024 ambulatory Jaswant Askew MD Work Phone: [facility] Comment on above: 05.30.25 Cure (Robot ic Complex AWR 5 hours los 2) Start: 11-12-2024 End: 11-13-2024 Preprocedural examination done Jaswant Askew MD Work Phone: [facility] Start: 11-10-2024 End: 11-10-2024 Patient encounter procedure Jaswant Askew MD Work Phone: General Surgery Comment on above: Recurrent incisional hernia (Primary Dx); IIH (idiopathic intracranial hypertension); Episode of recurrent major depressive disorder, unspecified depression episode severity (HCC); Palpitations; BMI 38.0-38.9,adult; Central adiposity; Avoidant-restrictive food intake disorder (ARFID); Disturbance in sleep behavior; Umbilical hernia without obstruction or gangrene Start: 11-10-2024 End: 11-10-2024 ambulatory JASWANT ASKEW Facility:[facility] Start: 10-14-2024 End: 10-14-2024 Telephone encounter Sugey Allan APRN.ARCHIVAL STUDIES PROFESSOR Work Phone: [facility] Start: 10-10-2024 End: 10-10-2024 E-mail encounter from caregiver Sugey Allan APRN.ARCHIVAL STUDIES PROFESSOR Work Phone: [facility] Start: 10-10-2024 End: 10-10-2024 Follow-up encounter Sugey Allan APRN.ARCHIVAL STUDIES PROFESSOR Work Phone: [facility] Comment on above: Follow up Start: 10-08-2024 End: 10-08-2024 Social Work Sue CAVAZOS Psychiatry Comment on above: IIH (idiopathic intr acranial hypertension) (Primary Dx); Other complicated headache syndrome; Intracranial vascular stenosis; Papilledema associated with increased intracranial pressure Start: 10-06-2024 End: 10-06-2024 Patient Update Chula Morton MD Work Phone: [facility] Comment on above: medication refill Layer Up - O ther (Medications) IIH (idiopathic intr acranial hypertension) (Primary Dx); Other localized visual field defect, left eye; Pulsatile tinnitus; Disorder of intracranial venous sinus Start: 09-30-2024 End: 10-08-2024 Refill Sugey Allan APRN.ARCHIVAL STUDIES PROFESSOR Work Phone: [facility] Comment on above: Refill Request Start: 09-26-2024 End: 10-02-2024 [facility] Rhianna Campo MD Work Phone: Endocrinology [place] Comment on above: Central adiposity (P rimary Dx); IIH (idiopathic intracranial hypertension); Episode of recurrent major depressive disorder, unspecified depression episode severity (HCC); Palpitations; BMI 38.0-38.9,adult; Avoidant-restrictive food intake disorder (ARFID); Disturbance in sleep behavior; Umbilical hernia without obstruction or gangrene Refill Request Appointment Start: 09-22-2024 End: 09-22-2024 ambulatory NONE PHYSICIAN Facility:[facility] Start: 09-22-2024 End: 09-22-2024 Patient encounter procedure SEEMA BULLOCK DO [facility] Start: 09-19-2024 End: 09-19-2024 Emergency department patient visit ROC BURT MD [facility] Start: 09-02-2024 End: 09-02-2024 Telephone encounter Chula Morton MD Work Phone: Endovascular Center Comment on above: Opened In Error (debbi uld be refill request) Refill Request Start: 08-29-2024 ambulatory NONE PHYSICIAN Facility :[facility] Start: 08-24-2024 End: 08-25-2024 Emergency department patient visit BROOK OLIVER MD [facility] Start: 08-14-2024 End: 08-14-2024 Emergency department patient visit No Primary Care Physician Facility:[facility] Start: 08-06-2024 End: 08-06-2024 Telephone encounter Murphy Kincaid MD Work Phone: Endovascular Center Start: 07-29-2024 Evaluation and manag ement of inpatient CHULA MORTON Facility:[facility] Start: 07-25-2024 End: 07-25-2024 Preprocedural examination done [place] [address] Work Phone: [facility] Work Phone: Start: 07-25-2024 Encounter for other preprocedural examination UNKNOWN PROVIDER [facility] Start: 07-25-2024 End: 07-25-2024 PAT [place] [id number] Work Phone: Pre Anesthesia Comment on above: Pre-op evaluation (P rimary Dx); IIH (idiopathic intracranial hypertension); Papilledema associated with increased intracranial pressure; Migraine with aura and without status migrainosus, not intractable; Hypertension, unspecified type; PTSD (post-traumatic stress disorder); Obesity due to excess calories without serious comorbidity, unspecified class; Episode of recurrent major depressive disorder, unspecified depression episode severity (HCC); Difficult intravenous access IIH (idiopathic intr acranial hypertension) (Primary Dx) Start: 07-24-2024 End: 07-24-2024 Emergency department patient visit BROOK OLIVER MD [facility] Start: 07-24-2024 End: 07-24-2024 Telephone encounter Chula Morton MD Work Phone: Cerebrovascular Center Comment on above: Symptoms (patient ca lled stating she was recently put on blood thinners and can't hardly walk, started 3 days ago and it's worse today, patient also states she has a headache /) Start: 07-15-2024 End: 07-15-2024 Emergency department patient visit DR DELROY ZHOU MD [facility] Start: 07-15-2024 End: 07-15-2024 Telephone encounter Nicolas Lopze MD Work Phone: [facility] Start: 07-02-2024 End: 07-02-2024 Emergency department patient visit No Primary Care Physician Facility:[facility] Start: 07-02-2024 End: 07-02-2024 ambulatory MIKAEL COLÓN Facility:[facility] Start: 07-02-2024 End: 07-02-2024 Patient encounter procedure Mikael Colón MD Work Phone: Ophthalmology Comment on above: IIH (idiopathic intr acranial hypertension) (Primary Dx); Other localized visual field defect, bilateral; Pulsatile tinnitus; Paresthesias; Nephrolithiasis Start: 06-12-2024 End: 06-12-2024 Emergency department patient visit OMEGA HARRIS MD [facility] Start: 06-12-2024 End: 06-12-2024 E-mail encounter from caregiver Chula Morton MD Work Phone: [facility] Start: 06-12-2024 End: 06-12-2024 Subsequent hospital visit by physician Angelo Pascual PA-C Work Phone: [place] [phone] Comment on above: IIH (idiopathic intr acranial hypertension) [G93.2] 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); Intracranial hypertension Start: 06-12-2024 End: 06-12-2024 Telemedicine consultation with patient Chula Morton MD Work Phone: [facility] Start: 06-12-2024 End: 06-12-2024 ambulatory Chula Morton MD Work Phone: Endovascular Center Comment on above: Transvenous Sinus St ent Instructions for July transvenous sinus st enosis Start: 05-21-2024 End: 05-21-2024 Telephone encounter Chula Morton MD Work Phone: Endovascular Center Comment on above: Appointment (Endovas cular Referral); Future Appointment (New Patient ESTHER Morton) Appointment Start: 05-20-2024 End: 05-20-2024 ambulatory Mikael Colón MD Work Phone: Ophthalmology Comment on above: IIH (idiopathic intr acranial hypertension) (Primary Dx); Pulsatile tinnitus Start: 05-20-2024 End: 05-20-2024 Telemedicine consultation with patient Mikael Colón MD Work Phone: Ophthalmology Start: 05-15-2024 End: 05-15-2024 Subsequent hospital visit by physician Venkatesh 3 Radio Main Q Work Phone: MRI Q Comment on above: IIH (idiopathic intr acranial hypertension) [G93.2] Start: 05-15-2024 End: 05-21-2024 ambulatory Mikael Colón MD Work Phone: Ophthalmology Comment on above: MRV Start: 05-15-2024 End: 05-21-2024 E-mail encounter from caregiver Mikael Colón MD Work Phone: Ophthalmology Start: 05-05-2024 End: 05-05-2024 Telephone encounter Will Vasquez RN MRI Q Comment on above: Radiology Pre Proced ure Instructions Start: 04-28-2024 End: 04-28-2024 Emergency department patient visit Williams Parekh Facility:[facility] Start: 04-27-2024 End: 04-27-2024 ambulatory OMAR FERREIRA Facility:[facility] Start: 04-27-2024 End: 04-27-2024 Patient encounter procedure Adwoa Mosley APRN.ARCHIVAL STUDIES PROFESSOR Work Phone: [facility] Comment on above: Injury of left wrist , initial encounter (Primary Dx) Start: 04-21-2024 ambulatory Eulalia villalpando PA-C Work Phone: [facility] Comment on above: Scheduling. Start: 04-17-2024 End: 04-17-2024 ambulatory CRESENCIO M MARY Facility:[facility] Start: 04-17-2024 End: 04-17-2024 Patient encounter procedure Eulalia Justice PA-C Work Phone: [facility] Comment on above: IIH (idiopathic intr acranial hypertension) (Primary Dx) Start: 03-26-2024 End: 03-26-2024 ambulatory MIKAEL COLÓN Facility:[facility] Start: 03-26-2024 End: 03-26-2024 ambulatory MIKAEL COLÓN Facility:[facility] Start: 03-26-2024 End: 03-26-2024 Patient encounter procedure Mikael Colón MD Work Phone: Ophthalmology Comment on above: IIH (idiopathic intr acranial hypertension) (Primary Dx); Other localized visual field defect, bilateral; Pulsatile tinnitus; History of metabolic acidosis; Rhinorrhea Start: 03-25-2024 End: 03-25-2024 ambulatory MOAR FERREIRA Facility:[facility] Start: 03-25-2024 End: 03-25-2024 Patient encounter procedure Adwoa Mosley APRN.CNP Work Phone: [facility] Comment on above: Acute otitis externa of left ear, unspecified type (Primary Dx); Otorrhea of left ear Start: 03-10-2024 End: 03-10-2024 ambulatory RC NOVAK Facility:[facility] Start: 03-10-2024 End: 03-10-2024 Patient encounter procedure Miesha Ruby MD Work Phone: Ophthalmology Comment on above: Idiopathic intracran ial hypertension (Primary Dx); Iris transillumination of left eye Start: 02-20-2024 Emergency department patient visit KEMAR MANTILLA Facility:[facility] Start: 02-19-2024 ambulatory Marianela Haji RN ENRIQUE SE CASH PROCESSOR Start: 02-19-2024 Patient encounter procedure Marianela Haji RN NURSE CASH PROCESSOR Comment on above: Clinical Update Start: 02-09-2024 End: 02-09-2024 Emergency department patient visit DR JOHN CORDOVA MD [facility] Start: 01-28-2024 End: 01-28-2024 Emergency department patient visit ROC BURT MD [facility] Start: 01-08-2024 End: 01-08-2024 Patient encounter procedure Ayleen Pichardo Work Phone: Podiatry Comment on above: Sprain of left ankle , unspecified ligament, initial encounter (Primary Dx); Acute left ankle pain; Foot pain, left; Plantar fasciitis of left foot Start: 12-13-2023 End: 12-13-2023 Subsequent hospital visit by physician Xr [facility] Work Phone: Radiology Comment on above: Acute left ankle alaina n [M25.572] Start: 12-13-2023 End: 12-13-2023 Patient encounter procedure Danielle Hernandez DAIRY FEED WORKER.ARCHIVAL STUDIES PROFESSOR Work Phone: [facility] Comment on above: Acute left ankle alaina n (Primary Dx); Foot pain, left; Fall, initial encounter Start: 05-31-2023 End: 05-31-2023 ambulatory NONE PHYSICIAN Facility:A Start: 05-31-2023 End: 05-31-2023 Encounter for other specified special examinations ANGELICA VALDES DAIRY FEED WORKER-ARCHIVAL STUDIES PROFESSOR Facility:[facility] Start: 05-31-2023 End: 05-31-2023 Patient encounter procedure ANGELICA VALDES DAIRY FEED WORKER-ARCHIVAL STUDIES PROFESSOR [facility] Start: 05-29-2023 End: 05-29-2023 ambulatory NONE PHYSICIAN Facility:B Start: 05-29-2023 End: 05-29-2023 Patient encounter procedure CALISTA BAUM MD [facility] Start: 05-23-2023 End: 05-23-2023 ambulatory NONE PHYSICIAN Facility:A Start: 05-23-2023 End: 05-23-2023 Patient encounter procedure CALISTA BAUM MD [facility] Start: 05-04-2023 End: 05-04-2023 Patient encounter procedure Judi Flores MD Work Phone: Ophthalmology Comment on above: IIH (idiopathic intr acranial hypertension) (Primary Dx); Papilledema associated with increased intracranial pressure; Migraine with aura and without status migrainosus, not intractable Start: 03-12-2023 End: 03-12-2023 ambulatory NONE PHYSICIAN Facility:A Start: 03-12-2023 End: 03-12-2023 Patient encounter procedure CALISTA BAUM MD [facility] Start: 03-05-2023 End: 03-05-2023 Emergency department patient visit ORC BURT MD [facility] Start: 03-05-2023 End: 03-05-2023 Patient encounter procedure Adwoa Mosley APRN.[facility] Work Phone: [facility] Comment on above: Severe pain (Primary Dx) Start: 02-12-2023 End: 02-13-2023 SAME DAY STAY NONE PHYSICIAN [facility] Start: 02-12-2023 End: 02-12-2023 Patient encounter procedure RENEE MYERS APRN [facility] Start: 02-12-2023 End: 03-08-2024 Lab-Standing Order RENEE MYERS APRN [facility] Start: 02-09-2023 End: 02-09-[address] DELROY ZHOU MD [facility] Start: 02-07-2023 End: 02-07-2023 Emergency department patient visit DR INDIA TUTTLE MD [facility] Start: 02-06-2023 End: 02-06-2023 Patient encounter procedure NONE PHYSICIAN [facility] Start: 12-13-2022 End: 12-13-2022 Patient encounter procedure Cresencio Conrad PA-C Work Phone: [facility] Comment on above: Near syncope (Primar y Dx); Fever, unspecified fever cause Start: 11-07-2022 End: 11-07-2022 Patient encounter procedure KWAME VARELA DAIRY FEED WORKER-CNM [facility] Start: 05-26-2019 End: 05-26-2019 Emergency department patient visit Gene Ngoc Wilye Work Phone: [facility] Emergency Dept Comment on above: Acute nonintractable headache, unspecified headache type (Primary Dx) Start: 05-22-2019 End: 05-25-2019 Evaluation and management of inpatient Serafin Cho Mercedes Work Phone: [facility] 3W TELEMETRY Start: 03-22-2017 End: 03-22-2017 Emergency department patient visit LOUIS ASKEW Facility:[facility] Start: 12-16-2007 Patient encounter status Cresencio Conrad PA-C Work Phone: [facility] Work Phone: Procedures Date Procedure Procedure Detail Performing Clinician Start: 01-22-2025 Antibody screen TAMIKO FERREIRA Comment on above: Order Comment: Speci men Type: BLOOD SPECIMENOrdering Facility: [facility] Address: [address] [place] [address] Performed By: #### T SCR30 ####[facility] BANKCLIA [id number] [place] [address] [place] Start: 01-08-2025 Mra head w/o & w/con trast material Sugey Allan DAIRY FEED WORKER.ARCHIVAL STUDIES PROFESSOR Work Phone: Start: 10-06-2024 End: 10-06-2024 Visual field xm uni/bi w/interp extended exam Mikael Colón MD Work Phone: Start: 07-25-2024 Antibody screen UNKNOWN PROVIDER Comment on above: Order Comment: Speci men Type: BLOOD SPECIMEN Ordering Facility: [facility] Address: [address] [place] [address] Performed By: #### T SCR30 #### [facility] CLIA [id number] [address] [place] [address] [facility] Start: 07-02-2024 End: 07-02-2024 Visual field xm uni/bi w/interp extended exam Mikael Colón MD Work Phone: Start: 06-12-2024 Cell count misc body fluids w/differential count Eulalia [place] [employer] Work Phone: Start: 06-12-2024 CSF ROUT ANALYSIS Eulalia [place] [employer] Work Phone: Start: 06-12-2024 Cul bact xcpt urine blood/stool aerobic isol Eulalia [place] [employer] Work Phone: Start: 06-12-2024 Glucose body fluid o ther than blood Eulalia [place] [employer] Work Phone: Start: 05-15-2024 Mra head w/o & w/con trast material Mikael Colón MD Work Phone: Start: 03-26-2024 End: 03-26-2024 Visual field xm uni/bi w/interp extended exam Mikael Colón MD Work Phone: Start: 03-10-2024 Fundus photography w/interpretation & report Miesha Ruby MD Work Phone: Start: 03-10-2024 End: 03-10-2024 Visual field xm uni/bi w/interp extended exam Miesha Ruby MD Work Phone: Start: 12-13-2023 Radex ankle complete minimum 3 views Danielle Hernandez DAIRY FEED WORKER.ARCHIVAL STUDIES PROFESSOR Work Phone: Start: 05-04-2023 Fundus photography w/interpretation & report Judi Flores MD Work Phone: Start: 05-04-2023 Visual field xm uni/ bi w/interp extended exam Judi Flores MD Work Phone: Start: 02-12-2023 Laparoscopic right salpingo-oophorectomy CALISTA BAUM MD Start: 03-15-2021 Dilation and curettage CALISTA BAUM MD Comment on above: Miscarriage Start: 05-25-2019 Assay of magnesium Mauricio Templeton Work Phone: Start: 05-25-2019 BASIC METABOLIC PANE L W/ REFLEX TO MG FOR LOW K Mauricio Templeton Work Phone: Start: 05-25-2019 Blood count complete auto&auto difrntl wbc Mauricio Templeton Work Phone: Start: 05-24-2019 Urnls dip stick/tabl et rgnt auto w/o microscopy Marco Luciano Work Phone: Start: 05-24-2019 Assay of magnesium Mauricio Templeton Work Phone: Start: 05-24-2019 BASIC METABOLIC PANE L W/ REFLEX TO MG FOR LOW K Mauricio Templeton Work Phone: Start: 05-23-2019 ADD ON LAB TEST Altaf Baum Work Phone: Start: 05-23-2019 Cell count misc body fluids w/differential count Mauricio Templeton Work Phone: Start: 05-23-2019 Glucose body fluid o ther than blood Mauricio Templeton Work Phone: Start: 05-23-2019 Protein total xcpt refractometry oth src Mauricio Templeton Work Phone: Start: 05-23-2019 Smr prim src gram/gi emsa stain bct fungi/cell Mauricio Templeton Work Phone: Start: 05-23-2019 MENINGITIS/ENCEPHALI TIS PANEL, CSF Mee S Dearturos Work Phone: Start: 05-23-2019 XA SPECIAL ANGIOGRAP HY PROCEDURE Shayy Porter Work Phone: Start: 05-23-2019 Assay of magnesium Mauricio Templeton Work Phone: Start: 05-23-2019 BASIC METABOLIC PANE L W/ REFLEX TO MG FOR LOW K Mauricio Templeton Work Phone: Start: 05-23-2019 Blood count complete auto&auto difrntl wbc Mauricio Templeton Work Phone: Start: 05-23-2019 Hemoglobin glycosylated a1c Mauricio Templeton Work Phone: Start: 05-23-2019 Lipid panel Mauricio farris Work Phone: Start: 05-22-2019 Mra head w/o & w/con trast material Mauricio Templeton Work Phone: Start: 05-22-2019 Mra head w/o contrst material Mauricio Templeton Work Phone: Start: 05-22-2019 Mra neck w/o &w/cont rast material Mauricio Templeton Work Phone: Start: 05-22-2019 Mri brain brain stem w/o w/contrast material Mauricio Templeton Work Phone: Start: 05-22-2019 ADD ON LAB TEST Mauricio Templeton Work Phone: Start: 05-22-2019 CANNABINOID, URINE, SCREENING, CRITICAL CARE Mauricio Templeton Work Phone: Start: 05-22-2019 Drug screen class list a Mauricio Templeton Work Phone: Start: 05-22-2019 Urine test visual color cmprsn meths Mauricio Templeton Work Phone: Start: 05-22-2019 Assay of magnesium Mauricio Liracz Work Phone: Start: 05-22-2019 Blood count complete auto&auto difrntl wbc Mauricio Morton Tri Work Phone: Start: 05-22-2019 Prothrombin time Mauricio Goodwin Tri Work Phone: section KWAME CASEYON DAIRY FEED WORKER-CNM section CALISTA JARQUIN MD Comment on above: Cholecystectomy KWAME ARCINIEGA PSON DAIRY FEED WORKER-CNM Hernia of abdominal cavity (disorder) KWAME VARELA DAIRY FEED WORKER-CNM Repair of umbilical hernia Demetri BAUM MD Tympanostomy CALISTA Pember[place] Plan of Treatment Date Care Activity Detail Author Start: 05-11-2025 Influenza vaccination Influenza Vaccine (Season Ended) [facility] Start: 05-04-2025 End: 05-04-2025 Patient encounter procedure 05/04/2025 2:40 PM EDT Office Visit Endocrinology [place] [address] [place] [id number] [place] [address] [place] [address] Follow Up Endocrinology [place] Comment on above: Follow Up Start: 04-08-2025 End: 04-08-2025 Patient encounter procedure 04/08/2025 11:00 AM EDT Office Visit Family Medicine [place] [address] [address] Marzena Banks MD [address] [place] [address] establish care Family Medicine [place] Comment on above: establish care Start: 03-03-2025 End: 03-03-2025 Patient encounter procedure Ophthalmology Comment on above: Please schedule this patient for a 4-5 m onth return to clinic visit, the indication is IIH Start: 02-25-2025 End: 02-25-2025 ambulatory 02/25/2025 2:30 PM EDT [facility] Patient Outreach Endocrinology [address] [place] [address] Joseluis Vasquez, Dicer Machine Operator [facility] Comment on above: Na Start: 02-13-2025 End: 02-13-2025 Patient encounter procedure 02/13/2025 9:00 AM EDT Office Visit [facility] Ophthalmology [address] [place] [id number] Mikael Colón MD [address] [place] [address] mcelroy next available, II evaluation. Ophthalmology Comment on above: Return for dr mcelroy next available, II evaluation. Start: 02-06-2025 End: 02-06-2025 Admission to same day surgery center 02/06/2025 10:45 AM EDT - 02/06/2025 4:15 PM EDT Surgery Admitting [address] [place] [address] Jaswant Askew MD [address] [place] [address] ROBOTIC LAPAROSCOPIC HERNIA REPAIR VENTRAL INITIAL REDUCIBLE W/MESH GREATER THAN 10cm Admitting Comment on above: ROBOTIC LAPAROSCOPIC HERNIA REPAIR VENTR AL INITIAL REDUCIBLE W/MESH GREATER THAN 10cm Start: 02-06-2025 End: 02-06-2025 ROBOTIC LAPAROSCOPIC HERNIA REPAIR VENTRAL INITIAL REDUCIBLE W/MESH GREATER THAN 10cm ROBOTIC LAPAROSCOPIC HERNIA REPAIR VENTRAL INITIAL REDUCIBLE W/MESH GREATER THAN 10cm Preoperative examination Recurrent incisional hernia 02/06/2025 10:45 AM EDT [facility] Start: 02-06-2025 Subsequent hospital visit by physician 02/06/2025 10:45 AM EDT Hospital Encounter Admitting [address] [place] [address] Jaswant Askew MD [address] [place] [address] Preoperative examination [Z01.818], Recurrent incisional hernia [K43.2] Admitting Comment on above: Preoperative examination [Z01.818], Recu rrent incisional hernia [K43.2] Start: 02-06-2025 End: 02-06-2025 Admission to same day surgery center 02/06/2025 7:30 AM EDT - 02/06/2025 12:45 PM EDT Surgery Admitting [address] [place] [address] Jaswant Askew MD [address] [place] [address] ROBOTIC LAPAROSCOPIC HERNIA REPAIR VENTRAL INITIAL REDUCIBLE W/MESH GREATER THAN 10cm Admitting Comment on above: ROBOTIC LAPAROSCOPIC HERNIA REPAIR VENTR AL INITIAL REDUCIBLE W/MESH GREATER THAN 10cm Start: 02-06-2025 End: 02-06-2025 ROBOTIC LAPAROSCOPIC HERNIA REPAIR VENTRAL INITIAL REDUCIBLE W/MESH GREATER THAN 10cm ROBOTIC LAPAROSCOPIC HERNIA REPAIR VENTRAL INITIAL REDUCIBLE W/MESH GREATER THAN 10cm Preoperative examination Recurrent incisional hernia 02/06/2025 7:30 AM EDT [facility] Start: 02-06-2025 Subsequent hospital visit by physician 02/06/2025 7:30 AM EDT Hospital Encounter Admitting [address] [place] [address] Jaswant Askew MD [address] [place] [address] Preoperative examination [Z01.818], Recurrent incisional hernia [K43.2] Admitting Comment on above: Preoperative examination [Z01.818], Recu rrent incisional hernia [K43.2] Start: 01-22-2025 End: 01-22-2025 ambulatory 01/22/2025 3:10 PM EDT Procedure Cardiology [address] [address] pre op Cardiology Comment on above: pre op Start: 01-22-2025 End: 01-22-2025 Patient encounter procedure [facility] A15 Draw Station Comment on above: pre op Start: 01-22-2025 End: 01-22-2025 Anesthesia consultation 01/22/2025 2:00 PM EDT PAT Pre Anesthesia [address] [address] 9, [address] [place] [id number] pre op Pre Anesthesia Comment on above: pre op Start: 01-13-2025 End: 01-13-2025 Follow-up encounter 01/13/2025 10:20 AM EDT [facility] NEUROLOGY [address] [place] [address] Sugey Allan, DAIRY FEED WORKER.ARCHIVAL STUDIES PROFESSOR [address] [place] [address] 6 mo transvenous sinus stent follow up NEUROLOGY Comment on above: 6 mo transvenous sinus stent follow up Start: 01-08-2025 End: 11-07-2025 MRA Head veins WO and W contrast IV MRV BRAIN WO/W IVCON Radiology Routine Intracranial vascular stenosis Expected: 01/08/2025 (Approximate), Expires: 11/07/2025 [facility] Work Phone: Comment on above: Expected: 01/08/2025 (Approximate), Expi res: 11/07/2025 Start: 01-08-2025 End: 01-08-2025 Patient encounter procedure 01/08/2025 11:10 AM EDT Appointment MRI Q [address], [place] [address] Procedure: MRV BRAIN WO/W IVCON MRI Q Comment on above: Procedure: MRV BRAIN WO/W IVCON Start: 01-06-2025 End: 01-06-2025 Patient encounter procedure 01/06/2025 2:00 PM EDT Office Visit Endocrinology [place] [address] [place] [address] Rylee Gregory, DAIRY FEED WORKER.ARCHIVAL STUDIES PROFESSOR [address] [place] [address] Follow Up Endocrinology [place] Comment on above: Follow Up Start: 12-30-2024 End: 04-13-2025 aPTT in Platelet poor plasma by Coagulation assay ACTIVATED PARTIAL THROMBOPLASTIN TIME Lab Routine Preoperative examination Recurrent incisional hernia Expected: 12/30/2024, Expires: 04/13/2025 [facility] Comment on above: Expected: 12/30/2024, Expires: Start: 12-30-2024 End: 04-13-2025 CBC W Auto Differential panel - Blood COMPLETE BLOOD COUNT AND DIFFERENTIAL Lab Routine Preoperative examination Recurrent incisional hernia Expected: 12/30/2024, Expires: 04/13/2025 [facility] Comment on above: Expected: 12/30/2024, Expires: Start: 12-30-2024 End: 04-13-2025 Comprehensive metabolic 2000 panel - Serum or Plasma COMPREHENSIVE METABOLIC PANEL Lab Routine Preoperative examination Recurrent incisional hernia Expected: 12/30/2024, Expires: 04/13/2025 [facility] Comment on above: Expected: 12/30/2024, Expires: Start: 12-30-2024 End: 04-13-2025 PT panel - Platelet poor plasma by Coagulation assay PROTHROMBIN TIME Lab Routine Preoperative examination Recurrent incisional hernia Expected: 12/30/2024, Expires: 04/13/2025 [facility] Comment on above: Expected: 12/30/2024, Expires: Start: 12-30-2024 End: 04-13-2025 TYPE AND SCREEN,30 DAY TYPE AND SCREEN,30 DAY Blood Bank Routine Preoperative examination Recurrent incisional hernia Expected: 12/30/2024, Expires: 04/13/2025 [facility] Comment on above: Expected: 12/30/2024, Expires: Start: 12-02-2024 End: 12-02-2024 ambulatory 12/02/2024 1:30 PM EDT [facility] Patient Outreach Endocrinology [address] [place] [address] Joseluis Vasquez, Dicer Machine Operator N/A Endocrinology Comment on above: N/A Start: 11-10-2024 End: 11-10-2024 Patient encounter procedure 11/10/2024 1:30 PM EST Office Visit General Surgery [address] [address] Jaswant Askew MD [address] [place] [address] IIH (idiopathic intracranial hypertension) [G93.2] General Surgery Comment on above: IIH (idiopathic intracranial hypertensio n) [G93.2] Start: 10-22-2024 End: 10-22-2024 Patient encounter procedure 10/22/2024 10:00 AM EST Office Visit General Surgery [address] [address] Gene Keller MD [address] [place] [address] IIH (idiopathic intracranial hypertension) [G93.2] General Surgery Comment on above: IIH (idiopathic intracranial hypertensio n) [G93.2] Start: 10-06-2024 End: 10-06-2024 Patient encounter procedure 10/06/2024 11:00 AM EST Office Visit [facility] Ophthalmology [address] [address] Mikael Colón MD [address] [place] [address] Please schedule this patient for a 3-4 month return to clinic visit, the indication is IIH Ophthalmology Comment on above: Please schedule this patient for a 3-4 m [facility] return to clinic visit, the indication is IIH Start: 09-26-2024 End: 09-26-2024 ambulatory 09/26/2024 1:00 PM EST [facility] Endocrinology [place] [address] [place] [address] [place] [address] [place] [address] Weight loss Endocrinology [place] Comment on above: Weight loss Start: 09-13-2024 Annual PCP Team Chronic Disease Visit Annual PCP Team Chronic Disease Visit [facility] Start: 09-12-2024 End: 09-12-2024 ambulatory 09/12/2024 10:40 AM EST Distance [facility] Endocrinology [place] [address] [place] [phone] [place] [address] [place] [address] Weight loss Endocrinology [place] Comment on above: Weight loss Start: 08-28-2024 End: 08-28-2024 ambulatory 08/28/2024 10:00 AM EST [facility] NEUROLOGY [address] [facility] [place] [address] Meena Murray APRN.ARCHIVAL STUDIES PROFESSOR [address] [place] [address] Dx: Hospital DC post op Est patient vv per haiku sent by mary choudhury 06/12/24 NEUROLOGY Comment on above: Dx: Hospital DC post op Est patient vv p er haiku sent by mary choudhury 06/12/24 Start: 07-31-2024 End: 07-31-2024 Patient encounter procedure 07/31/2024 8:15 AM EST Office Visit Urology [address] [address] Mauricio Naranjo MD [address] [place] [address] Nephrolithiasis Urology Comment on above: Nephrolithiasis Start: 07-29-2024 End: 07-29-2024 Admission to same day surgery center 07/29/2024 8:00 AM EST - 07/29/2024 10:15 AM EST Surgery Angio [address] [place] [address] Chula Morton MD [address] [place] [address] SELECTIVE CATHETER PLACEMENT EACH INTRACRANIAL BRANCH OF THE INTERNAL CAROTID OR VERTEBRAL ARTERIES UNILATERAL W/ ANGIOGRAPHY OF THE SELECTED VESSEL CIRCULATION AND ALL ASSOCIATED RADIOLOGICAL SUPERVISION AND INTERPRETATION Angio Comment on above: SELECTIVE CATHETER PLACEMENT EACH INTRAC RANIAL BRANCH OF THE INTERNAL CAROTID OR VERTEBRAL [...] physician Angio Comment on above: IIH (idiopathic intracranial hypertensio n) [G93.2], Papilledema associated with increased intracranial pressure [H47.11] Start: 07-29-2024 End: 07-29-2024 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cra w/balo angiop if pfrmd TRANSCATH PLCMNT OF INTRACRANIAL INTRAVASCULAR STENT IIH (idiopathic intracranial hypertension) Papilledema associated with increased intracranial pressure 07/29/2024 8:00 AM EST [facility] ANGIO HB6 Start: 07-25-2024 End: 10-24-2024 ASPIRIN/CLOPIDOGREL RESISTANCE [facility] Comment on above: Expected: 07/25/2024, Expires: Start: 07-25-2024 End: 10-24-2024 Basic metabolic 2000 panel - Serum or Plasma BASIC METABOLIC PANEL Lab Routine IIH (idiopathic intracranial hypertension) Papilledema associated with increased intracranial pressure Expected: 07/25/2024, Expires: 10/24/2024 [facility] Comment on above: Expected: 07/25/2024, Expires: Start: 07-25-2024 End: 10-24-2024 CBC panel - Blood by Automated count COMPLETE BLOOD COUNT Lab Routine IIH (idiopathic intracranial hypertension) Papilledema associated with increased intracranial pressure Expected: 07/25/2024, Expires: 10/24/2024 [facility] Work Phone: Comment on above: Expected: 07/25/2024, Expires: Start: 07-25-2024 End: 10-24-2024 Choriogonadotropin.beta subunit [Units/volume] in Serum or Plasma HCG QUANTITATIVE Lab Routine IIH (idiopathic intracranial hypertension) Papilledema associated with increased intracranial pressure Expected: 07/25/2024, Expires: 10/24/2024 [facility] Comment on above: Expected: 07/25/2024, Expires: Start: 07-25-2024 End: 10-24-2024 CONFIRM BLOOD TYPE CONFIRM BLOOD TYPE Blood Bank Routine IIH (idiopathic intracranial hypertension) Papilledema associated with increased intracranial pressure Expected: 07/25/2024, Expires: 10/24/2024 [facility] Comment on above: Expected: 07/25/2024, Expires: Start: 07-25-2024 End: 10-24-2024 TYPE AND SCREEN,30 DAY TYPE AND SCREEN,30 DAY Blood Bank Routine IIH (idiopathic intracranial hypertension) Papilledema associated with increased intracranial pressure Expected: 07/25/2024, Expires: 10/24/2024 [facility] Comment on above: Expected: 07/25/2024, Expires: Start: 07-25-2024 End: 07-25-2024 ambulatory 07/25/2024 11:30 AM EST Results Only [facility] Draw Station [address] [place] [address] Pre Op [facility] Comment on above: Pre Op Start: 07-25-2024 End: 07-25-2024 Anesthesia consultation 07/25/2024 10:40 AM EST PAT Pre Anesthesia [address] [place] [address] 1, [address] [place] [place] [address] Pre Op Pre Anesthesia Comment on above: Pre Op Start: 07-23-2024 End: 07-23-2024 ambulatory 07/23/2024 10:[address] [facility] [place] [address] [place] [address] [place] [address] [place] [address] Lopez (next available is fine) [facility] Comment on above: ASAPwith Dr. Lopez (next available is fine) Start: 07-15-2024 End: 07-15-2024 ambulatory 07/15/2024 10:[address] [facility] [address] [place] [address] [place] [address] [place] [address] Lopez (next available is fine) [facility] Comment on above: ASAPwith Dr. Lopez (next available is fine) Start: 07-02-2024 End: 10-01-2024 Basic metabolic 2000 panel - Serum or Plasma BASIC METABOLIC PANEL Lab Routine Paresthesias Expected: 07/02/2024, Expires: 10/01/2024 [facility] Work Phone: Comment on above: Expected: 07/02/2024, Expires: Start: 07-02-2024 End: 07-02-2024 Patient encounter procedure 07/02/2024 11:30 AM EDT Office Visit [facility] Ophthalmology [address] [address] Mikael Colón MD [address] [place] [address] Please schedule 3 month return to clinic visit, per Dr. Colón Ophthalmology Comment on above: Please schedule 3 month return to clinic visit, per Dr. Colón Start: 06-12-2024 End: 06-12-2024 Diagnostic lumbar spinal puncture SPINAL PUNCTURE LUMBAR DIAGNOSTIC IIH (idiopathic intracranial hypertension) 06/12/2024 11:20 AM EDT ANGIO HB6 Start: 06-12-2024 End: 06-12-2024 ambulatory 06/12/2024 9:40 AM EDT [facility] Endovascular Center [address] [place], [place] [id number] Chula Morton MD [address] [place] [address] [facility] Comment on above: IIH Start: 05-20-2024 End: 05-20-2024 ambulatory 05/20/2024 7:00 AM EDT [facility] [address] [address] Mikael Colón MD [address] [place] [address] MRI results VV Ophthalmology Comment on above: MRI results VV Start: 05-20-2024 End: 05-20-2024 Patient encounter procedure 05/20/2024 7:00 AM EDT Office Visit [facility] Ophthalmology [address] [address] Mikael Colón MD [address] [place] [address] MRI results VV Ophthalmology Comment on above: MRI results VV Start: 05-15-2024 End: 05-15-2024 Patient encounter procedure MRI Q Comment on above: MRV BRAIN WO/W IVCON Start: 05-11-2024 Covid-19 Vaccine ( season) Covid-19 Vaccine ( season) [facility] Start: 05-11-2024 Covid-19 Vaccine ( season) Covid-19 Vaccine () [facility] Start: 05-11-2024 Influenza vaccination [facility] Start: 04-17-2024 End: 04-17-2024 Patient encounter procedure 04/17/2024 9:30 AM EDT Office Visit [facility] [address] [place] [id number] Eulalia Justice PA-C [address] [place] [address] pseudotumor cerebri; headaches [facility] Comment on above: pseudotumor cerebri; headaches Start: 03-26-2024 End: 06-25-2024 Basic metabolic 2000 panel - Serum or Plasma [facility] Comment on above: Expected: 03/26/2024, Expires: Start: 03-26-2024 End: 03-26-2024 Patient encounter procedure 03/26/2024 8:30 AM EDT Office Visit [facility] Ophthalmology [address] [address] Mikael Colón MD [address] [place] [address] Colón next available, IIH evaluation. Being referred by Dr. Miesha Ruby Ophthalmology Comment on above: Return for Dr. Colón next available, IIH evaluation. Being referred by Dr. Miesha Ruby Start: 02-20-2024 End: 02-20-2024 Patient encounter procedure 02/20/2024 8:15 AM EDT Office Visit [facility] Ophthalmology [address] [place] [address] [place] [address] [place] [address] pain/pressure in eye/pseudotumor - Dr. Flores patient Ophthalmology Comment on above: pain/pressure in eye/pseudotumor - Dr. Tammie muse patient Start: 01-24-2024 End: 01-24-2024 ambulatory 01/24/2024 2:00 PM EDT OT/PT/Speech Visit [facility] Physical Therapy [address] [place] [address] Deep Sharpe, PT [address] [place] [address] Sprain of left ankle, unspecified ligament, initial encounter [S93.402A] [facility] Comment on above: Sprain of left ankle, unspecified ligame nt, initial encounter [S93.402A] Start: 05-11-2023 Covid-19 Vaccine ( season) Covid-19 Vaccine ( season) [facility] Start: 05-11-2023 Influenza vaccination [facility] Start: 09-14-2020 PAP TESTING PAP TESTING [facility] Start: 09-14-2020 Screening for malignant neoplasm of cervix Pap Testing [facility] Start: 05-25-2020 Creatinine monitoring Creatinine monitoring [place], [place] Start: 05-25-2020 Potassium monitoring Potassium monitoring [place], [place] Start: 05-23-2020 Creatinine monitoring Creatinine monitoring [place], [place] Start: 05-23-2020 Potassium monitoring Potassium monitoring [place], [place] Start: 05-29-2019 End: 05-29-2019 Office Visit 05/29/2019 Office Visit Internal Medicine Maco Person MD [address] [place] [address] [phone] [facility] [place] Start: 05-11-2019 Influenza vaccination Flu vaccine (#1) [place], [place] Start: 09-14-2018 Screening for malignant neoplasm of cervix Cervical Cancer Screening [facility] Start: 11-10-2017 HPV TESTING HPV TESTING [facility] Start: 11-10-2017 Screening for malignant neoplasm of cervix HPV Testing [facility] Start: 11-10-2008 Cervical cancer screen Cervical cancer screen [place], [place] Start: 11-10-2005 ANNUAL PCP TEAM CHRONIC DISEASE VISIT ANNUAL PCP TEAM CHRONIC DISEASE VISIT [facility] Start: 11-10-2005 BP CONTROLLED (<130/80) BP CONTROLLED (<130/80) [facility] in Start: 11-10-2005 HEPATITIS C SCREENING HEPATITIS C SCREENING [facility] Start: 11-10-2005 Hepatitis C screening Hepatitis C Screening [facility] Start: 11-10-2005 HIV SCREENING HIV SCREENING [facility] Start: 11-10-2005 HIV screening HIV Screening [facility] Start: 11-07-2005 HEPATITIS B (2 of 3 - 3-dose series) HEPATITIS B (2 of 3 - 3-dose series) [facility] Start: 11-07-2005 Hepatitis B Vaccine (2 of 3 - 3-dose series) Hepatitis B Vaccine (2 of 3 - 3-dose series) [facility] Start: 11-17-2003 Urine microalbumin profile [facility] Start: 11-10-2002 HIV screen HIV screen [place], [place] Start: 11-10-2000 Varicella Vaccine (1 of 2 - 13+ 2-dose series) Varicella Vaccine (1 of 2 - 13+ 2-dose series) [place], [place] Start: 11-10-1998 DTaP/Tdap/Td vaccine (5 - Tdap) DTaP/Tdap/Td vaccine (5 - Tdap) [facility] [place] Start: 05-13-1988 COVID-19 VACCINE (#1) COVID-19 VACCINE (#1) [facility] End: 05-23-2019 AFB culture AFB culture Microbiology Routine Once for 1 Occurrences starting 05/23/2019 until 05/23/2019 [facility] [place] Comment on above: Once for 1 Occurrences starting 05/23/20 until 05/23/2019 AFB culture AFB culture Micr obiology Routine 05/23/2019 5:28 PM EDT [facility] [place] End: 05-23-2019 AFB Stain AFB Stain Microbiology Routine Once for 1 Occurrences starting 05/23/2019 until 05/23/2019 [place] Comment on above: Once for 1 Occurrences starting 05/23/20 until 05/23/2019 AFB Stain AFB Stain Microb iology Routine 05/23/2019 5:28 PM EDT [place], [place] Bacteria identified in Cerebral spinal fluid by Culture CSF CULTURE AND STAIN Microbiology Routine IIH (idiopathic intracranial hypertension) 06/12/2024 12:06 PM EDT [facility] Work Phone: Basic Metabolic Pane l w/ Reflex to MG Basic Metabolic Panel w/ Reflex to MG Lab Routine Daily until discontinued starting 05/23/2019, 3 completed [facility] [place] Comment on above: Daily until discontinued starting 2018, 3 completed Beta-2 transferrin [Presence] in Body fluid BETA-2 TRANSFERRIN Lab Routine Rhinorrhea Ordered: 03/26/2024 [facility] Work Phone: Comment on above: Ordered: 03/26/2024 Body Fluid Culture Body Fluid Cu lture Microbiology Routine 05/23/2019 6:18 PM EDT [facility] [place] CBC auto differential CBC auto d ifferential Lab Routine Daily until discontinued starting 05/22/2019, 3 completed [place] Comment on above: Daily until discontinued starting 2018, 3 completed CSF MANUAL DIFF CSF MANUAL DIFF Lab Routine IIH (idiopathic intracranial hypertension) 06/12/2024 12:06 PM EDT [facility] End: 05-22-2019 Cytology, Non-Sales Lead Cytology, Non-Sales Lead Lab Routine One Time for 1 Occurrences starting 05/22/2019 until 05/22/2019 [facility] Comment on above: One Time for 1 Occurrences starting 05/11 until 05/22/2019 End: 11-12-2025 ECG COMPLETE ECG COMPLETE ECG Routine Preoperative examination Recurrent incisional hernia 1 Occurrences starting 11/13/2024 until 11/12/2025 [facility] Comment on above: 1 Occurrences starting 11/13/2024 until 11/12/2025 End: 05-23-2019 Fungus Culture Fungus Culture Microbiology Routine Once for 1 Occurrences starting 05/23/2019 until 05/23/2019 [facility] Comment on above: Once for 1 Occurrences starting 05/23/20 19 until 05/23/2019 Fungus Culture Fungus Culture Microbiology Routine 05/23/2019 5:28 PM EDT [facility] End: 09-26-2025 HOME SLEEP APNEA TEST (HSAT) HOME SLEEP APNEA TEST (HSAT) Procedures Routine IIH (idiopathic intracranial hypertension) Episode of recurrent major depressive disorder, unspecified depression episode severity (HCC) BMI 38.0-38.9,adult Central adiposity Avoidant-restrictive food intake disorder (ARFID) Disturbance in sleep behavior 1 Occurrences starting 09/26/2024 until 09/26/2025 [facility] Work Phone: Comment on above: 1 Occurrences starting 09/26/2024 until 09/26/2025 Initiate Oxygen Ther apy Protocol Initiate Oxygen Therapy Protocol Respiratory Care Routine Daily until discontinued starting 05/22/2019 [facility] Comment on above: Daily until discontinued starting 2018 IR CEREBRAL ARCH & T HREE VESSEL IR CEREBRAL ARCH & THREE VESSEL Radiology Routine IIH (idiopathic intracranial hypertension) Papilledema associated with increased intracranial pressure Ordered: 06/12/2024 [facility] Comment on above: Ordered: 06/12/2024 End: 05-22-2019 Lumbar Puncture Lumbar Puncture Procedures Routine One Time for 1 Occurrences starting 05/22/2019 until 05/22/2019 [facility] Comment on above: One Time for 1 Occurrences starting 05/11 until 05/22/2019 Magnesium [Mass/Vol] Magnesium L ab Routine Daily until discontinued starting 05/22/2019, 4 completed [facility] Comment on above: Daily until discontinued starting 2018, 4 completed End: 04-26-2025 MRA Head veins WO and W contrast IV MRV BRAIN WO/W IVCON Radiology DESEAN IIH (idiopathic intracranial hypertension) Pulsatile tinnitus 1 Occurrences starting 03/26/2024 until 04/26/2025 [facility] Comment on above: 1 Occurrences starting 03/26/2024 until 04/26/2025 REFER FOR ADMIT INTERVIEW REFER FOR ADMIT INTERVIEW Procedures Routine Preoperative examination Recurrent incisional hernia Ordered: 11/13/2024 [facility] Work Phone: Comment on above: Ordered: 11/13/2024 RF Guidance for flui d aspiration of Lumbar spine space IR LP FOR DRAINAGE (PRESSURE) Radiology Routine IIH (idiopathic intracranial hypertension) Ordered: 04/17/2024 [facility] Work Phone: Comment on above: Ordered: 04/17/2024 RF Stent Views W contrast intra stent IR NEUROVASCULAR STENT Radiology Routine IIH (idiopathic intracranial hypertension) Papilledema associated with increased intracranial pressure Ordered: 06/12/2024 [facility] Comment on above: Ordered: 06/12/2024 End: 05-25-2019 RPR WITH FTA REFLEX RPR WITH FTA REFLEX Lab Routine Tomorrow AM for 1 Occurrences starting 05/25/2019 until 05/25/2019 [facility] Comment on above: Tomorrow AM for 1 Occurrences starting 0 05/25/2019 until 05/25/2019 RPR WITH FTA REFLEX RPR WITH FTA REFLEX Lab Routine 05/25/2019 6:45 AM EDT [facility] Slctv cath intrcrnl brnch angio intrl carot/vert [...] for 1 Occurrences starting 05/22/2019 until 05/22/2019 [facility] Comment on above: One Time for 1 Occurrences starting 05/11 until 05/22/2019 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 craft 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 w/balo angiop if pfrmd TRANSCATH PLCMNT OF INTRACRANIAL INTRAVASCULAR STENT IIH (idiopathic intracranial hypertension) Papilledema associated with increased intracranial pressure [facility] HB6 End: 05-23-2019 VDRL, CSF WITH REFLEX TO TITER VDRL, CSF WITH REFLEX TO TITER Lab Routine One Time for 1 Occurrences starting 05/23/2019 until 05/23/2019 [facility], [facility] Comment on above: One Time for 1 Occurrences starting 05/11 until 05/23/2019 VDRL, CSF WITH REFLE X TO TITER VDRL, CSF WITH REFLEX TO TITER Lab Routine 05/23/2019 6:18 PM EDT [facility] XR Wrist - left PA a nd Lateral and Oblique XR WRIST GENERAL 3V PA/LAT/OBL LEFT Radiology STAT Injury of left wrist, initial encounter Ordered: 04/27/2024 [facility] Work Phone: Comment on above: Ordered: 04/27/2024 [facility] Immunizations Immunization Date Immunization Notes Care Provider Keon goss 10-10-2005 hepatitis B vaccine, pediatric or pediatric/adolescent dosage Cresencio Conrad PA-C Work Phone: [facility] Work Phone: 10-10-2005 hepatitis B vaccine, unspecified formulation Cresencio Conrad PA-C Work Phone: [facility] 11-16-2003 tetanus and diphther ia toxoids, adsorbed, preservative free, for adult use (2 Lf of tetanus toxoid and 2 Lf of diphtheria toxoid) Cresencio Conrad PA-C Work Phone: [facility] Work Phone: 04-25-1999 measles, mumps and rubella virus vaccine Cresencio Conrad PA-C Work Phone: [facility] Work Phone: 11-10-1993 trivalent poliovirus vaccine, live, oral Cresnecio Conrad PA-C Work Phone: [facility] Work Phone: 11-10-1993 tuberculin skin test ; purified protein derivative solution, intradermal Adwoa Mosley APRN.CNP Work Phone: [facility] 05-24-1992 diphtheria, tetanus toxoids and pertussis vaccine Cresencio Dudleyy PA-C Work Phone: [facility] Work Phone: 10-07-1990 diphtheria, tetanus toxoids and pertussis vaccine Cresencio Luis Enriquey PA-C Work Phone: [facility] Work Phone: 10-07-1990 trivalent poliovirus vaccine, live, oral Cresencio Dudleyy PA-C Work Phone: [facility] Work Phone: 01-21-1990 diphtheria, tetanus toxoids and pertussis vaccine Cresencio Dudleyy PA-C Work Phone: [facility] Work Phone: 01-21-1990 haemophilus influenz ae type b vaccine, HbOC conjugate Cresencio Conrad PA-C Work Phone: [facility] Work Phone: 01-21-1990 trivalent poliovirus vaccine, live, oral Cresencio Conrad PA-C Work Phone: [facility] Work Phone: 11-13-1989 diphtheria, tetanus toxoids and pertussis vaccine Cresencio Dudleyy PA-C Work Phone: [facility] Work Phone: 11-13-1989 measles, mumps and rubella virus vaccine Cresencio Dudleyy PA-C Work Phone: [facility] Work Phone: 11-13-1989 trivalent poliovirus vaccine, live, oral Cresencio Athy PA-C Work Phone: [facility] Work Phone: Payers Date Payer Category Payer [facility] [id number] 2024 Self-pay 2022 Medicaid [id number] 2022 Unknown [id number] 2013 Unknown [id number] 1987 Unknown [id number] 2.16.8 [id number] 1987 Unknown [id number] 2.16.8 40.1.417699.3.579.2.627 1987 Unknown [id number] 2.16.8 40.1.254272.3.579.2.627 1987 Unknown [id number] 2.16.8 40.1.522963.3.579.2.627 1987 Unknown [id number] 2.16.8 40.1.460657.3.579.2.627 1987 Unknown [id number] 2.16.8 40.1.629349.3.579.2.627 1987 Unknown [id number] 2.16.8 40.1.739610.3.579.2.627 1987 Unknown [id number] 2.16.8 40.1.729643.3.579.2.627 1987 Unknown [id number] 2.16.8 40.1.956034.3.579.2.627 1987 Unknown [id number] 2.16.8 40.1.670217.3.579.2.627 1987 Unknown [id number] 2.16.8 40.1.432198.3.579.2.627 1987 Unknown [id number] 2.16.8 40.1.309237.3.579.2.627 1987 Unknown [id number] 2.16.8 40.1.175724.3.579.2.627 1987 Unknown [id number] 2.16.8 40.1.743951.3.579.2.627 Unknown [id number] 2.16.8 40.1.320378.3.579.2.462 Unknown [id number] 2.16.8 40.1.889341.3.579.2.462 Unknown [id number] 2.16.8 [id number] Unknown [id number] 2.16.8 [id number] Social History Date Type Detail Facility Start: 05-26-2019 End: 02-27-2023 Tobacco smoking status NHIS Never smoker [facility] Start: 05-26-2019 End: 02-27-2023 Alcohol intake Yes [facility] Start: 05-22-2019 Alcohol Comment rarely Tiffanie Cherry [facility], JACOB Start: 1985 Sex Assigned At Not on file M [place], [place] Sex Assigned At [facility] History of tobacco use Cigarette Smoker C [facility] Start: 12-13-2022 End: 02-27-2023 Cigarettes smoked current (pack per day) - Reported 0.5 [facility] Start: 12-13-2022 End: 02-27-2023 Tobacco use and exposure Smokeless tobacco non-user [facility] Start: 12-13-2022 End: 07-02-2024 Alcohol intake Current drinker of alcohol (finding) [facility] Start: 07-18-2013 Alcohol Comment very rare [facility] National Score (1-10 0), lower number is lower risk 99 [facility] Start: 07-25-2024 End: 01-22-2025 Alcoholic beverage intake Ex-drinker (finding) [facility] Start: 04-29-2010 Sex Female (finding) [facility] Medical Equipment Procedure Code Equipment Code Equipment Original Text Equipment Identifier Dates Mesh-05/26/2011 [id number] Start: 05-26-2011 Device Closure Vascade Mvp Multi-Site Femoral Collagen Patch - [id number] Start: 07-29-2024 Stent Zilver 518 9mm 5fr Nitinol 60mm 125cm Vascular Self Expand Flexible - [id number] Start: 07-29-2024 Comment on above: Description: MRI con ditional at: 3T, 720G/cm 1.5 W/kg at 1.5 July 3 W/kg at 3 July Functional Status Date Assessment Result Facility 09-19-2024 Functional Status Independent [facility] 09-19-2024 Functional Status Ambulation in Fierro, Ambulation in Room [facility] 08-25-2024 Functional Status Activity Verito coppola Independent [facility] 08-24-2024 Functional Status Standard Safet y ID band on, Allergy Band on, Call device within reach, Bed in low position, Wheels locked, Upper/Half-Length side-rails up, Phone within reach, personal items within reach, Bedside Cart Locked, Visitor at bedside [facility] 07-30-2024 Are you deaf, or do you have serious difficulty hearing No 07/30/2024 11:17 AM Ronak Vivas, HAN [facility] 07-30-2024 Are you blind, or do you have serious difficulty seeing, even when wearing glasses No 07/30/2024 11:17 AM Ronak Vivas, HAN [facility] 07-30-2024 Do you have serious difficulty walking or climbing stairs No 07/30/2024 11:17 AM Ronak Vivas, HAN [facility] 07-30-2024 Do you have difficul ty dressing or bathing No 07/30/2024 11:17 AM Ronak Vivas, HAN [facility] 07-30-2024 Because of a physica l, mental, or emotional condition, do you have difficulty doing errands alone such as visiting a physician's office or shopping No 07/30/2024 11:17 AM Ronak Vivas, HAN [facility] 07-24-2024 Functional Status Up ad parul [facility] 07-24-2024 Functional Status Standard Safet y ID band on, Call device within reach, Bed in low position, Wheels locked [facility] 07-15-2024 Functional Status Independent [facility] 06-12-2024 Functional Status Assistive Device None A [facility] 06-12-2024 Functional Status ID band on [facility] 02-09-2024 Functional Status [facility] Functional Status ID band on, Call device within reach, Bed in low position, Wheels locked, Visitor at bedside [facility] 01-28-2024 Functional Status Standard Safet y ID band on, Call device within reach, Bed in low position, Wheels locked, Upper/Half-Length side-rails up, Bedside Cart Locked, Safety level maintained [facility] 03-05-2023 Functional Status ID band on, Call device within reach, Bed in low position, Wheels locked, personal items within reach, Bedside Cart Locked, Visitor at bedside, Safety level maintained [facility] 02-12-2023 Functional Status ice chips and sips take n [facility] 02-12-2023 Functional Status Laura Avila [facility] 02-12-2023 Functional Status Laura Avila [facility] 02-07-2023 Functional Status ID band on, Call device within reach, Bed in low position, Wheels locked, Upper/Half-Length side-rails up, Visitor at bedside [facility] Mental Status Date Assessment Result Facility 09-19-2024 Mental Status Orientation Oriented x 4 [facility] 09-19-2024 Mental Status [facility] 08-25-2024 Mental Status Orientation Oriented x 4 [facility] 08-24-2024 Mental Status [facility] 07-30-2024 Because of a physica l, mental, or emotional condition, do you have serious difficulty concentrating, remembering, or making decisions No 07/30/2024 11:17 AM Ronak Vivas RN No [facility] 07-24-2024 Mental Status Orientation Oriented x 4 [facility] 07-24-2024 Mental Status [facility] 07-15-2024 Mental Status Oriented x 4 [facility] 06-12-2024 Mental Status Orientation Oriented x 4 [facility] 06-12-2024 Mental Status [facility] 02-09-2024 Mental Status Orientation Oriented x 4 [facility] 02-09-2024 Mental Status [facility] 01-28-2024 Mental Status Orientation Oriented x 4 [facility] 03-05-2023 Mental Status Orientation Oriented x 4 [facility] 02-12-2023 Mental Status Orientation Foll ows simple commands [facility] 02-12-2023 Mental Status [facility] 02-12-2023 Mental Status [facility] 02-07-2023 Mental Status Orientation Oriented x 4 [facility] 02-07-2023 Mental Status [facility] Clinical Notes 12-13-2022 to 02-08-2025 Telephone Encounter - Norma Reddy RN - 02/02/2025 3:42 PM EDTTelephone Encounter - Norma Reddy RN - 02/02/2025 3:42 PM EDTSDe Longoria, PhD - 01/22/2025 3:51 PM EDT Note Date & Type Note Facility 02-08-2025 Note HNO ID: [id number] Author: RONAK ESCALANTE MD Service: General Surgery Author Type: Resident Type: Progress Notes Filed: 02/09/2025 14:34 Note Text: Documentation Query Please clarify the diagnosis associated with the clinical indicators. Anemia This document will become part of the patient's medical record. [facility] 02-08-2025 Note HNO ID: [id number] Author: KARAN GONZALES RN Service: Nursing Author Type: Registered Nurse Type: Nursing Progress Note Filed: 02/08/2025 16:43 Note Text: 1130 RAYMUNDO drain care and maintenance education given to patient per order. [facility] 02-08-2025 Note HNO ID: [id number] Author: RONAK ESCALANTE MD Service: General Surgery Author Type: Resident Type: Progress Notes Filed: 02/08/2025 16:21 Note Text: GENERAL SURGERY PROGRESS NOTE ASSESSMENT AND PLAN: Omar Gomez is a 39 year old female PMHx IIH, ectopic who is now s/p TAR with Dr. Askew on 02/07/25. Patient is a clinical trial patient. Please do not discuss with her if her surgery was open or robotic. Please do not remove postoperative dressings. Neuro/Pain- Pain control: MMPR, dc RN UTILIZATION MANAGEMENT UM start oral oxy. Hold home lorazepam, continue home venlafaxine, acetazolamide Cardiac- Vitals: HDS Home meds: Continue home ASA 81 Respiratory- Encourage incentive spirometry, wean supplemental oxygen as able GI- GIS. Antiemetic available. FEN- HLIV Electrolyte repletion prn. Renal- CTM UOP Heme- Daily CBC, no indication for transfusion at this time ID- Periop abx Endo- Hold home metformin, SSI and BGL Wound- Maintain c/d/I please do not remove post operative dressings MSK- PT/OT consult. Warm compress for L arm pain/numbness, CTM Prophylaxis- SCD and SQH, OOB and IS Dispo - RNF, ok to DC home today Plan discussed with Dr. Nowak. Ronak Escalante MD MPH General Surgery - PGY 1 Service Pager: [phone] ([facility]) INTERVAL EVENTS / PERTINENT REVIEW OF SYSTEMS: AMET early AM for lightheadedness when bearing down, symptoms resolved when laid down, AFVSS labs and EKG wnl OBJECTIVE: PHYSICAL EXAM: 02/08/25 0550 02/08/25 0618 02/08/25 0619 02/08/25 1126 BP: 135/86 123/74 112/66 118/66 Pulse: 74 94 Resp: 16 16 Temp: 36.8 ?C (98.2 ?F) 36.6 ?C (97.9 ?F) TempSrc: Oral Oral SpO2: 96% 92% Weight: Height: General: AANDO x 3, no acute distress Heart: RRR Lungs: non-labored breathing on RA Abd: soft, appropriately tender, non-distended, non-peritonitic Incisions: clean, dry and intact Ext: no edema DATA: Laboratory: CBC, Coags, BMP, Mg, Phos Recent Labs 02/07/25 0825 WBC 13.55* HB 8.5* HCT 29.2* PLT 261 NA 139 K 4.0 CHLOR 107 CO2 20* BUN 8 CREAT 0.64 GLUC 99 CA 7.9* MG 2.4* P 3.1 Liver Function, Amylase, AND Lipase LDA: Lines, Drains, and Airways Line Duration Peripheral 02/07/[address] [facility] Short Right Forearm 22 Gauge <1 day Drain Duration Drain/Tube 02/06/[address] [facility] Ernie Diaz Left Lower Quadrant Abdomen Drain #1 2 days SURGERY/PROCEDURE: Procedure(s) and Anesthesia Type: * ROBOTIC LAPAROSCOPIC HERNIA REPAIR VENTRAL INITIAL REDUCIBLE W/MESH GREATER THAN 10cm - General [facility] 02-07-2025 Note HNO ID: [id number] Author: RONAK ESCALANTE MD Service: General Surgery Author Type: Resident Type: Progress Notes Filed: 02/07/2025 09:18 Note Text: GENERAL SURGERY PROGRESS NOTE ASSESSMENT AND PLAN: Omar Gomez is a 39 year old female PMHx IIH, ectopic who is now s/p TAR with Dr. Askew on 02/07/25. Patient is a clinical trial patient. Please do not discuss with her if her surgery was open or robotic. Please do not remove postoperative dressings. Neuro/Pain- Pain control: MMPR, dc RN UTILIZATION MANAGEMENT UM start oral oxy. Hold home lorazepam, continue home venlafaxine, acetazolamide Cardiac- Vitals: HDS Home meds: Continue home ASA 81 Respiratory- Encourage incentive spirometry, wean supplemental oxygen as able GI- FLD. Antiemetic available. FEN- HLIV Electrolyte repletion prn. Renal- CTM UOP, remove delgado Heme- Daily CBC, no indication for transfusion at this time ID- Periop abx Endo- Hold home metformin, SSI and BGL Wound- Maintain c/d/I please do not remove post operative dressings MSK- PT/OT consult. Warm compress for L arm pain/numbness, CTM Prophylaxis- SCD and SQH, OOB and IS Dispo - RNF Plan discussed with Dr. Nowak. Ronak Escalante MD MPH General Surgery - PGY 1 Service Pager: [phone] ([facility]) INTERVAL EVENTS / PERTINENT REVIEW OF SYSTEMS: No acute events overnight. Pain well controlled. Endorsing some numbness of L hand. OBJECTIVE: PHYSICAL EXAM: 02/06/25 1826 02/06/25 1914 02/07/25 0125 02/07/25 0454 BP: 151/95 123/75 137/78 111/71 Pulse: 93 89 81 68 Resp: 16 16 16 16 Temp: 36.6 ?C (97.9 ?F) 36.6 ?C (97.9 ?F) 36.5 ?C (97.7 ?F) TempSrc: Oral SpO2: 95% 95% 96% 96% General: AANDO x 3, no acute distress Heart: RRR Lungs: non-labored breathing on RA Abd: soft, appropriately tender, non-distended, non-peritonitic Incisions: clean, dry and intact Ext: no edema DATA: Laboratory: CBC, Coags, BMP, Mg, Phos Recent Labs 02/07/25 0825 WBC 13.55* HB 8.5* HCT 29.2* PLT 261 Liver Function, Amylase, AND Lipase LDA: Lines, Drains, and Airways Line Duration Peripheral 02/06/25 0925 Short Left Hand 20 Gauge <1 day Peripheral 02/06/25 1050 Right Hand 18 Gauge <1 day Drain Duration Drain/Tube 02/06/[address] [facility] Ernie Diaz Left Lower Quadrant Abdomen Drain #1 <1 day Indwelling Urinary Catheter 02/06/[address] [facility] Delgado 16 Fr <1 day SURGERY/PROCEDURE: Procedure(s) and Anesthesia Type: * ROBOTIC LAPAROSCOPIC HERNIA REPAIR VENTRAL INITIAL REDUCIBLE W/MESH GREATER THAN 10cm - General [facility] 02-07-2025 Note HNO ID: [id number] Author: MARVIN HENRIQUEZ MD Service: General Surgery Author Type: Resident Type: Plan of Care Filed: 02/07/2025 04:59 Note Text: General Surgery Post-Operative Check 02/07/2025 4:52 AM Operation: TAR as part of ROVER trial Subjective: Reported some numbness/parasthesias in L index finger and thumb since post op Reports pain and nausea controlled Objective: BP 137/78 Pulse 81 Temp (Src) 97.9 (Oral) Resp 16 SpO2 96% LMP 01/22/2025 O2 Therapy: Nasal Cannula, Liters (Numeric Only): 3 General: resting comfortably, awake Chest: regular rate and rhythm, unlabored breathing on RA Abd: soft, mildly distended, appropriately tender Drains/Lines/Tubes: delgado with light yellow urine, RAYMUNDO sang>SS Ext: bilateral hand motor in tact and equal Assessment AND Plan: Omar Gomez is POD 0 s/p the above listed procedure and recovering as expected. Continue routine post-op care. Continue to monitor L index parasthesias Marvin Henriquez MD General Surgery Resident Night Pager [phone] [facility] 02-06-2025 Note HNO ID: [id number] Author: SHONDA RAO APRN.CORPORATE COUNSELOR Service: ? Author Type: Nurse Gas Refrigerator Servicer Type: Anesthesia Procedure Notes Filed: 02/06/2025 11:31 Note Text: ANESTHESIOLOGY PROCEDURE NOTE PIV General Information Procedure Start Time/Medication Administration: 02/06/2025 10:50 AM Procedure End Time: 02/06/2025 10:50 AM Patient Location: OR Staffing CORPORATE COUNSELOR: Shonda Rao APRN.CORPORATE COUNSELOR Performed by: CATALINA Preparation Site Prep: alcohol Procedure Details Indication: need for IV access Needle Size/Type: 18 gauge angiocath Orientation: Right Location: Hand Imaging Guidance Used: No SIGNATURE: Shonda Rao APRN.CRNA PATIENT NAME: Omar Gomez DATE: February 06, 2025 TIME: 11:30 AM CSN: [id number] [facility] 02-06-2025 Note HNO ID: [id number] Author: SHONDA RAO APRN.CORPORATE COUNSELOR Service: ? Author Type: Nurse Gas Refrigerator Servicer Type: Anesthesia Procedure Notes Filed: 02/06/2025 11:25 Note Text: ANESTHESIOLOGY PROCEDURE NOTE Airway General Information Procedure Start Time/Medication Administration: 02/06/2025 10:50 AM Procedure End Time: 02/06/2025 10:50 AM Patient location during procedure: OR Timeout Performed Pre-procedure: timeout performed Consent Obtained: Yes Patient identity confirmed: arm band and patient Staffing CORPORATE COUNSELOR: Shonda Rao APRN.CORPORATE COUNSELOR Performed by: CATALINA Indications and Patient Condition Indications for airway management: anesthesia and airway protection Preoxygenated: yes anesthesia circuit Method: asleep Cricoid Pressure: No Manual In-Line Stabilization: No Difficult Mask: No Final Airway Details Final airway type: endotracheal airway Final Endotracheal Airway: ETT Cuffed: yes Successful intubation technique: video laryngoscopy Devices used: Yi De Endotracheal tube insertion site: oral Blade size: #3 ETT size (mm): 7.0 Measured from: lips Measurement (cm): 22 Placement verified by: capnometry Cormack-Lehane Classification: grade I - full view of glottis Number of attempts at approach: 1 Failed airway: no Airway not difficult SIGNATURE: Shonda Rao APRN.CRNA PATIENT NAME: Omar Gomez DATE: February 06, 2025 TIME: 11:24 AM CSN: [id number] [facility] 02-02-2025 Telephone encounter Note Reason for Call: Patient calling with concern for wisdom tooth pain x 1 week that is worsening today. Outcome: Advised to SEE DENTIST/PCP WITHIN 24 HOURS. Patient verbalized understanding and is agreeable to the plan. Transferred to [facility] at the appointment center for scheduling. Reason for Disposition Fever Answer Assessment - Initial Assessment Questions 1. LOCATION: Left bottom wisdom tooth. 2. ONSET: Started last week. Worsened today. 3. SEVERITY: 8/10 radiating into ear. 4. SWELLING: Denies swelling to face or gums. 5. OTHER SYMPTOMS: Yesterday 02/02/2025 patient had chills and felt hot. 6. : Denies . LMP: Last week. 7.Patient states Tylenol and Motrin are not effective for pain. Protocols used: [id number] [facility] 02-02-2025 Miscellaneous Notes Reason for Call: Patient calling with concern for wisdom tooth pain x 1 week that is worsening today. Outcome: Advised to SEE DENTIST/PCP WITHIN 24 HOURS. Patient verbalized understanding and is agreeable to the plan. Transferred to [facility] at the appointment center for scheduling. Reason for Disposition Fever Answer Assessment - Initial Assessment Questions 1. LOCATION: Left bottom wisdom tooth. 2. ONSET: Started last week. Worsened today. 3. SEVERITY: 8/10 radiating into ear. 4. SWELLING: Denies swelling to face or gums. 5. OTHER SYMPTOMS: Yesterday 02/02/2025 patient had chills and felt hot. 6. : Denies . LMP: Last week. 7.Patient states Tylenol and Motrin are not effective for pain. Protocols used: [id number] documented in this encounter [facility] 01-22-2025 Note HNO ID: [id number] Author: DE GILL, PhD Service: ? Author Type: Psychologist Type: Progress Notes Filed: 01/22/2025 16:41 Note Text: [facility] Name: Omar Gomez MR#: [id number] Date: 01/22/2025 Time: ? hour Referred by: Dr. Askew Reason for Referral: address psychological factors as they can affect post-operative recovery. Information relayed back to referral source via electronic medical record Her chart was reviewed and she gave her own history. She was seen with her . She says that she used to be active but is now struggling with depression and anxiety and limits her activity. She is in therapy and has been for about 1 year this time and is about to start EMDR. She is also on Effexor but does not take it regularly. We discussed the importance of restarting it and taking it as prescribed. She has a prescription for Ativan but does not use it regularly and has not had any for 1 week. We discussed ways to minimize taking it. She is not on Ambien. She has had numerous surgeries and has had to go to the hospital and number of times for pain. She has had experiences where her pain is dismissed, or minimized, or questioned and she says she has been accused of being a drug addict despite the fact that she denied any of the diagnostic criteria. The basic underlying psychological and physiological mechanisms behind the brain body connection were explained. She was introduced to the concepts and techniques that she can employ to help with pain and healing after surgery. She was given the link to the Behavioral Medicine Program website, instructed on the use of the relaxation recordings, and told of the informational content. She was given the opportunity to ask questions and informed that she could be seen again. De Marshall, Ph.D. [facility] 01-22-2025 History of Present illness Narrative [facility] Name: Omar Gomez MR#: [id number] Date: 01/22/2025 Time: hour Referred by: Dr. Askew Reason for Referral: address psychological factors as they can affect post-operative recovery. Information relayed back to referral source via electronic medical record Her chart was reviewed and she gave her own history. She was seen with her . She says that she used to be active but is now struggling with depression and anxiety and limits her activity. She is in therapy and has been for about 1 year this time and is about to start EMDR. She is also on Effexor but does not take it regularly. We discussed the importance of restarting it and taking it as prescribed. She has a prescription for Ativan but does not use it regularly and has not had any for 1 week. We discussed ways to minimize taking it. She is not on Ambien. She has had numerous surgeries and has had to go to the hospital and number of times for pain. She has had experiences where her pain is dismissed, or minimized, or questioned and she says she has been accused of being a drug addict despite the fact that she denied any of the diagnostic criteria. The basic underlying psychological and physiological mechanisms behind the brain body connection were explained. She was introduced to the concepts and techniques that she can employ to help with pain and healing after surgery. She was given the link to the Behavioral Medicine Program website, instructed on the use of the relaxation recordings, and told of the informational content. She was given the opportunity to ask questions and informed that she could be seen again. De Marshall, Ph.D. documented in this encounter [facility] 01-22-2025 Instructions Astrid Vuong APRN.ARCHIVAL STUDIES PROFESSOR - 01/22/2025 2:45 PM EDT Images from the original note were not included. [facility] PATIENT PREOPERATIVE INSTRUCTIONS Omar Ferreira APRN.Brittni* has scheduled you for your procedure at this surgery center: If no call by 4pm the day before surgery, please call this number. [facility] [place] Scheduling Office: [phone] --[address] [place] [address]. Please read below carefully for your personalized instructions. Dietary Restrictions: If your surgical team has given you specific instructions for eating and drinking, please follow their instructions - No solid food after midnight. - You may have 12 ounces of clear liquids (water, clear juices such as apple juice or gatorade, carbonated beverages, clear tea, black coffee, jello) until 2 hours before scheduled arrival at facility. - Do not drink any alcohol after midnight the night before your surgery. Medications: Unless instructed differently below, stay on all of your medications until your surgery. If you start any new medications after today's visit, please contact your surgeon. Pre-Surgery Med Instructions Medication Instructions aspirin 81 mg chewable tablet Continue instructions per team, to stop 01/26/25 metFORMIN ER (GLUCOPHAGE XR) 500 mg 24 hr tablet Do not take the day of surgery acetaminophen (TYLENOL) 500 mg tablet Ok to take morning of surgery if needed LORazepam (ATIVAN) 1 mg tablet Okay to take the night before surgery if needed Ok to take on the morning if needed; let us know if you take the medication and what time you took it venlafaxine ER (EFFEXOR XR) 75 mg 24 hr capsule Continue as normal If you take any medications for erectile dysfunction-Cialis (Tadalafil), Levitra, Staxyn (Vardenafil) Viagra (Sildenenafil please do not take these for 48 hours before surgery. If you start any new medications after today's visit, please contact the surgeon's office. If you are currently using a eslb-bio-nwcj injectable or oral medication for diabetes or weight loss such as Dulaglutide (Trulicity), Exenatide (Byetta, Bydureon), Liraglutide (Victoza, Saxenda), Semaglutide (Ozempic, Wegovy, Rybelsus), or Tirzepatide (Mounjaro), the medicine should be stopped at least 7 days before surgery. These medicines can cause food to remain in your stomach for a very long time and increase the risks from surgery and anesthesia. Not stopping the medication for a long enough time may result in your surgery being rescheduled. Blood Thinning Medications: - Stop NSAIDS (Ibuprofen, Advil, Aleve, Motrin, Celebrex, Mobic, etc.) 7 days before surgery, as directed by your surgeon. - Stop Aspirin 7 days before surgery, as directed by your surgeon. - Stop Vitamin E, herbals and dietary supplements 7 days before surgery. - You may take Tylenol (Acetaminophen) or any of your pain medications that do not contain aspirin or NSAIDS as needed. Important Reminders: - Morning of surgery - NO Candy, mints, or gum. - NO smoking or tobacco products permitted the morning of surgery. - Hearing aids, dentures and glasses may be worn the morning of surgery. - NO jewelry, body piercings, makeup, hairpins or contacts are to be worn the day of surgery. - NO lotions, creams, ointments, or deodorant are to be used on the day of surgery. -Please be sure to brush your teeth and you can use mouth wash or rinse your mouth if dry. If you develop symptoms such as a fever, cold, or flu, or have other changes to your health within TWO DAYS of scheduled surgery or the morning of surgery, please contact the surgery center above. Personal Belongings: -Please have photo ID and insurance cards. -If you do not have a copy of advance directives on file with us, please bring a copy with you on the day of surgery. - Leave ALL valuables and money at home or with family members. For Outpatient Procedures: - YOU MUST HAVE A RESPONSIBLE APPLIED RESEARCH DIRECTOR TAKE YOU HOME. A ACTING MANAGER OR CLINICAL ADMINISTRATOR CANNOT BE MADE A RESPONSIBLE APPLIED RESEARCH DIRECTOR. - We recommend that a responsible person stays with you overnight to take care of you. - You cannot stay in a hotel alone after outpatient surgery. You will not be permitted to have your surgery, if you do not have someone to take care of you. Arrival Time for Surgery: - To obtain your arrival time for surgery, call your physician's office the day before your surgery. - If you have received different instructions about finding out your arrival time from your surgeon, please follow those instructions. - If your surgery is scheduled for Sunday, call the Sunday before. Your surgeon s stagecraft teacher will tell you what time to call the office. - If you have not reached the departmental stagecraft teacher by 5 P.M., call [phone] after 5 P.M. the day before your surgery. Please be aware that emergency situations arise, which may delay or change your surgical time. If this happens, we will notify you as soon as possible and regret any inconvenience. If you already have an Advance Directive, please fax a copy to [phone] or email to for it to be added to your chart. If you do not have an Advance Directive, you can find the appropriate form and more information at [email or web address]. We recommend that you complete the Advance Directive form found on the website and bring it with you the day of your surgery. It can be witnessed and scanned into your chart that day. Astrid Vuong APRN.KAYY documented in this encounter [facility] 01-22-2025 History and physical note Images from the original note were not included. [facility] HISTORY AND PHYSICAL EXAMINATION SERVICE DATE: 01/22/2025 SERVICE TIME: 2:20 PM PRIMARY CARE PHYSICIAN: No primary care provider on file. Assessment Patient has the following medical conditions which may affect aidan-operative course: At risk for sleep apnea Assessment: stop bang 4 Has HSAT test ordered, needs to complete Difficult intravenous access Assessment: Advised adequate hydration, noted to have difficulty in the past. Denied any use of central lines placed in the past. US use recommended. Migraine with aura and without status migrainosus, not intractable Assessment: R/t her IIH. Following with Dr. Harris, intermittent episodes. IIH (idiopathic intracranial hypertension) Assessment: IIH s/p right transverse sinus stent 10/2023. 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 Colón stenting and angioplasty of the right TSJ. Hypertension Assessment: no medications 149/89 - 01/22/2025 Denies cardiac symptoms GERD (gastroesophageal reflux disease) Assessment: endorses gerd and heartburn, no medications at this time Major depressive disorder Assessment: complaint on mood stablizers, follows PCP. ANESTHESIA FINDINGS: Intubation History: No history of difficult intubation. No abnormal airway history Significant Anesthesia Considerations: patient and family state typically quite groggy for some time in recovery;; Endorses prior use of vein finder or US machine for assistance, expert provider, midline consut ordered for DOS potential difficult IV/vein access Airway History: No history of difficult airway No abnormal airway history Braswell Activity Status Index: METS: Walk indoors, such as around the house (1.75 METs) Do light work around the house, such as dusting or washing dishes (2.70 METs) Take care of self; that is eating, dressing, bathing, using the toilet (2.75 METs) Walk a block or two on level ground (2.75 METs) Do moderate work around the house, such as vacuuming, sweeping floors, or carrying in groceries (3.50 METs) DASI Score: 13.45 Patient confirms chest pain or undue shortness of breath with the above physical activity. Clinical Frailty Scale: 3. Well, with treated comorbid disease STOP-Bang Score: Snores loudly Has been observed to stop breathing or choking/gasping during sleep BMI greater than 35 kg/m^2 Has a large neck Denies feeling tired, fatigued, or sleepy during the daytime Denies having high blood pressure Patient 50 years old or younger Non-male patient STOP-Bang Score: 4 I - PHYSICAL EVALUATION AIRWAY Patient intubated: No. Tracheostomy tube not present Mallampati: II. TM distance: >3 FB. Neck ROM: full ROM without neurological symptoms. Mouth opening: adequate. Short neck: no. Thick neck: yes Microretrognathia/Micronagthia/Rec essed Chin: No DENTAL Normal dental observations. Dental findings: teeth intact. II - ANESTHESIA PLAN Beta Son Monitoring Plan Post Procedure Analgesic Plan Prepared for Surgery: optimally prepared for surgery, pending [see comment]. EKG, T&S, PT, PTT, CMP, CBC ordered by surgical service Addendum 01/23/2025 Labs and EKG reviewed and accepted from 01/22/2025 Anemia slightly decreased on review of prior labs CONSULTS: Patient does not require consults for optimization at this time Planned Anesthetic: anesthesia choice The Following Tests/Procedures Have Been Initiated: No orders of the defined types were placed in this encounter. REASON FOR VISIT: Omar Gomez is a 39 year old female who is scheduled for Procedure(s): ROBOTIC LAPAROSCOPIC HERNIA REPAIR VENTRAL INITIAL REDUCIBLE W/MESH GREATER THAN 10cm (N/A) at the request of Dr. Askew, Jaswant Negrete MD for consultation. My final recommendation will be communicated back to the requesting physician by way of shared medical record or letter. Subjective The patient has the following: COVID-19 Immunization Status Current Care Gaps Covid-19 Vaccine (2023- season) Never done No completion, postpone, frequency change, or communication history exists for this topic. CHIEF COMPLAINT: Preop exam HPI: Omar Gomez is a 39 year old female. Presents to [facility] today for preop exam. Patient is scheduled for the above procedure on 02/06/2025 . Patient with recurrent incisional hernia. She underwent laparoscopic cholecystectomy and developed an incisional hernia. She underwent open incisional hernia pair with mesh and then had t laparoscopic ovarian surgery and she noticed the hernia recurred not long after that. Endorses pain at the hernia site and at upper midline. Plan for above surgery. Denies fevers, chills, chest pain, and SOB. REVIEW OF SYSTEMS: General: Negative for: weight loss >10% of BW in last 6 months, malaise and fever. Neurological: IIH s/p right transverse sinus stent 10/2023. Positive for: headaches. Negative for: SHIP SCALER tumor, delirium, dementia, hemiplegia, multiple sclerosis, Parkinson's disease, peripheral neuropathy, seizures, TIA and strokes. Respiratory: Negative for: asthma, COPD, current cough, dyspnea, home oxygen, pneumonia within 6 weeks, tobacco use, URI < 2 weeks and obstructive sleep apnea. Cardiovascular: Positive for: anticoagulation therapy (ASA 81 sp TSJ stent, will complete 01/26/25) Negative for: abdominal aortic aneurysm, angina, arrhythmia, CAD, chest pain, CHF, DVT/PE, hyperlipidemia, hypertension, recent NE, murmur/valvular heart disease, PTCA, PVD, open heart surgery and valve surgery. GI: See HPI. Positive for: abdominal pain, GERD and heartburn Negative for: colon cancer, dysphagia, diverticulitis, esophageal stricture, hepatitis, irritable bowel syndrome, inflammatory bowel disease, liver disease, nausea, pancreatitis, history of polyps, rectal cancer and vomiting. : Episode of pylenonephritis 08/2024 Positive for: nephrolithiasis (hx) and urinary tract infection (prone to UTI, last episode 09/2024). Negative for: BPH, decreased stream, dysuria, flank pain, frequent urination, hematuria, hesitancy, urinary incontinence, renal failure and self catheterization. HISTORICAL ARCHEOLOGIST: Negative for abnormal vaginal bleeding, abnormal vaginal discharge. Endocrine: Negative for: diabetes mellitus, diabetic neuropathy, hyperthyroidism, hypothyroidism, hyperparathyroidism and steroid for chronic problem. Hematology: Positive for: bruises/bleeds easily and chronic anti-coagulation/platelet meds. Patient is on anti-coagulation/platelet medication(s): Aspirin. Negative for: anemia, factor V Leiden, hemophilia, thrombocytopenia and von Willebrand disease. Oncology: Hx ovarian tumor sp resection Negative for: CA metastasis and chemo within 30 days. Psych: Positive for: anxiety (managed with effexor daily, ativan PRN, rarely needed lately). Negative for: ADHD, bipolar disorder, depression and drug dependency. Musculoskeletal: Negative for: back pain, joint pain and swelling. Skin: Negative for: lesions, itching and rash. Implanted Devices: No implanted devices. PAST MEDICAL HISTORY Diagnosis Date Adjustment disorder with depressed mood Ectopic (HCC) 12/2022 IIH (idiopathic intracranial hypertension) PMH - PAST MEDICAL HISTORY OF 11/10/93-color vision normal Post depression 07/18/2013 hypertension (HCC) PTSD (post-traumatic stress disorder) Unequal pupils left > right PAST SURGICAL HISTORY Procedure Laterality Date CHOLECYSTECTOMY 2010 COLONOSCOPY FLX DX W/COLLJ SPEC WHEN PFRMD 07/29/2018 Colonoscopy ECTOPIC - TREATMENT 02/12/2023 ESOPHAGOGASTRODUODENOSCOPY TRANSORAL DIAGNOSTIC 07/29/2018 EGD MYRINGOTOMY ASPIR&/EUSTACHIAN TUBE NFLTJ ANES 08/31/2015 Myringotomy/tubes- right ear PAST SURGICAL HISTORY OF tubes in ears, several times PAST SURGICAL HISTORY OF Right 07/2024 stenting and angioplasty of the right TSJ. PAST SURGICAL HISTORY OF laparoscopic ovarian surgery PAST SURGICAL HISTORY OF 2011 open incisional hernia pair with mesh REPAIR UMBILICAL HERNIA 2011 UNSPECIFIED ORAL SURGERY PROCEDURE, BY REPORT 4 teeth pulled [facility]I DELIVERY SCHEDULING ORDER D&C FAMILY HISTORY Adopted: Yes Problem Relation Age of Onset Cancer Maternal Aunt Social History Tobacco Use Smoking status: Never Smokeless tobacco: Never Vaping Use Vaping status: Never Used Substance Use Topics Alcohol use: Not Currently Drug use: No Prior to Admission medications as of 01/22/25 1428 Medication Sig Last Dose Taking aspirin 81 mg chewable tablet Take 1 tablet by mouth once daily for 6 days. Stop 01/26/25 Yes metFORMIN ER (GLUCOPHAGE XR) 500 mg 24 hr tablet Take 1 tablet by mouth daily with lunch for 7 days, THEN 1 tablet two times a day with meals. Yes acetaminophen (TYLENOL) 500 mg tablet Take 2 tablets by mouth every 6 hours as needed for pain. Yes LORazepam (ATIVAN) 1 mg tablet Take 1 mg by mouth as needed for anxiety. Yes venlafaxine ER (EFFEXOR XR) 75 mg 24 hr capsule Take 1 capsule by mouth every afternoon. Yes aspirin 325 mg tablet Take 1 tablet by mouth once daily. Patient should start on October 22, 2024. acetaZOLAMIDE SR (DIAMOX SEQUELS) 500 mg capsule Take 1 capsule by mouth every evening. No medication comments found. ALLERGIES Allergen Reactions Tape [Adhesive Tape* Rash EKG tape pleitez skin- other tape gives patient rashes Objective PHYSICAL EXAM: General: alert and oriented, healthy appearance and obese. Pertinent negatives noted - not distressed. Skin: normal color, no rash or lesions. HEENT: EOM intact and pupils equal round. Pertinent negatives noted - no carotid bruit. Cardiovascular: regular rate and rhythm, normal S1 and S2, no rub, murmurs, or gallop. Respiratory: normal breath sounds, no wheezes or crackles. No chest wall deformity or tenderness. Abdomen: hernia. Extremities: no deformity, no edema or tenderness, no joint swelling or clubbing. Neurological: normal cognition and motor skills. Gait normal. No weakness or sensory deficit. PAIN ASSESSMENT: Pain Pain Level: 8 Pain Location: Abdomen-Mid Upper Description: Tightness Duration Amount of Time: 12 Duration Units: Years Frequency: Continuous VITALS: BP 149/89 Pulse 82 Temp (Src) 97.6 (Temporal) Ht 5' 6 (1.68m) Wt 251 lb 15.8 oz (114.3kg) SpO2 98% LMP 12/27/2024 BMI 40.69 kg/(m^2). Diagnostic tests reviewed for today's visit: Lab Value Units Date High Low HB 9.9 g/dL 01/22/2025 15.5 11.5 HCT 32.5 % 01/22/2025 46.0 36.0 WBC 8.71 k/uL 01/22/2025 11.00 3.70 PLT 353 k/uL 01/22/2025 400 150 NA 141 mmol/L 01/22/2025 144 136 K 4.5 mmol/L 01/22/2025 5.1 3.7 GLUC 95 mg/dL 01/22/2025 99 74 BUN 13 mg/dL 01/22/2025 21 7 CREAT 0.68 mg/dL 01/22/2025 0.96 0.58 PTSEC 10.8 sec 01/22/2025 13.0 9.7 INR 1.0 no uni* 01/22/2025 1.3 0.9 APTT 24.5 sec 01/22/2025 32.4 23.0 ALT 14 U/L 01/22/2025 38 7 AST 13 U/L 01/22/2025 35 13 TBILI <0.2 mg/dL 01/22/2025 1.3 0.2 TSH No results within date range. Lab Value Units Date High Low HCGQT No results within date range. UHCG No results within date range. HCG, BODY* No results within date range. Lab Value Units Date High Low ABORHD No results within date range. ABSCREEN No results within date range. No results found for: HBA1C Recent Results (from the past 8760 hours) ECG COMPLETE Collection Time: 01/22/25 3:14 PM Result Value Ventricular Rate 76 Atrial Rate 76 P-R Interval 130 QRS Duration 90 QT Interval 378 QTC Calculation (Bazett) 425 Calculated P [place] 51 Calculated R [place] 65 Calculated T [place] 32 Impression NORMAL SINUS RHYTHM NORMAL ECG No results found for this or any previous visit (from the past 94509 hours). Instructions Given to Patient: Instructions located in the after visit summary. Patient given verbal and written preop instructions and voices comprehension and compliance. SIGNATURE: Astrid Vuong APRN.CNP PATIENT NAME: Omar Gomez DATE: January 23, 2025 TIME: 3:36 PM PAGER/CONTACT #: [facility] 01-22-2025 History and physical note Images from the original note were not included. [facility] HISTORY AND PHYSICAL EXAMINATION SERVICE DATE: 01/22/2025 SERVICE TIME: 2:20 PM PRIMARY CARE PHYSICIAN: No primary care provider on file. Assessment Patient has the following medical conditions which may affect aidan-operative course: At risk for sleep apnea Assessment: stop bang 4 Has HSAT test ordered, needs to complete Difficult intravenous access Assessment: Advised adequate hydration, noted to have difficulty in the past. Denied any use of central lines placed in the past. US use recommended. Migraine with aura and without status migrainosus, not intractable Assessment: R/t her IIH. Following with Dr. Harris, intermittent episodes. IIH (idiopathic intracranial hypertension) Assessment: IIH s/p right transverse sinus stent 10/2023. 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 Colón stenting and angioplasty of the right TSJ. Hypertension Assessment: no medications 149/89 - 01/22/2025 Denies cardiac symptoms GERD (gastroesophageal reflux disease) Assessment: endorses gerd and heartburn, no medications at this time Major depressive disorder Assessment: complaint on mood stablizers, follows PCP. ANESTHESIA FINDINGS: Intubation History: No history of difficult intubation. No abnormal airway history Significant Anesthesia Considerations: patient and family state typically quite groggy for some time in recovery;; Endorses prior use of vein finder or US machine for assistance, expert provider, midline consut ordered for DOS potential difficult IV/vein access Airway History: No history of difficult airway No abnormal airway history [place] Activity Status Index: METS: Walk indoors, such as around the house (1.75 METs) Do light work around the house, such as dusting or washing dishes (2.70 METs) Take care of self; that is eating, dressing, bathing, using the toilet (2.75 METs) Walk a block or two on level ground (2.75 METs) Do moderate work around the house, such as vacuuming, sweeping floors, or carrying in groceries (3.50 METs) DASI Score: 13.45 Patient confirms chest pain or undue shortness of breath with the above physical activity. Clinical Frailty Scale: 3. Well, with treated comorbid disease STOP-Bang Score: Snores loudly Has been observed to stop breathing or choking/gasping during sleep BMI greater than 35 kg/m^2 Has a large neck Denies feeling tired, fatigued, or sleepy during the daytime Denies having high blood pressure Patient 50 years old or younger Non-male patient STOP-Bang Score: 4 I - PHYSICAL EVALUATION AIRWAY Patient intubated: No. Tracheostomy tube not present Mallampati: II. TM distance: >3 FB. Neck ROM: full ROM without neurological symptoms. Mouth opening: adequate. Short neck: no. Thick neck: yes Microretrognathia/Micronagthia/Rec essed Chin: No DENTAL Normal dental observations. Dental findings: teeth intact. II - ANESTHESIA PLAN Beta Son Monitoring Plan Post Procedure Analgesic Plan Prepared for Surgery: optimally prepared for surgery, pending [see comment]. EKG, T&S, PT, PTT, CMP, CBC ordered by surgical service Addendum 01/23/2025 Labs and EKG reviewed and accepted from 01/22/2025 Anemia slightly decreased on review of prior labs CONSULTS: Patient does not require consults for optimization at this time Planned Anesthetic: anesthesia choice The Following Tests/Procedures Have Been Initiated: No orders of the defined types were placed in this encounter. REASON FOR VISIT: Omar Gomez is a 39 year old female who is scheduled for Procedure(s): ROBOTIC LAPAROSCOPIC HERNIA REPAIR VENTRAL INITIAL REDUCIBLE W/MESH GREATER THAN 10cm (N/A) at the request of Jaswant Stokes MD for consultation. My final recommendation will be communicated back to the requesting physician by way of shared medical record or letter. Subjective The patient has the following: COVID-19 Immunization Status Current Care Gaps Covid-19 Vaccine ( season) Never done No completion, postpone, frequency change, or communication history exists for this topic. CHIEF COMPLAINT: Preop exam HPI: Omar Gomez is a 39 year old female. Presents to [facility] today for preop exam. Patient is scheduled for the above procedure on 02/06/2025 . Patient with recurrent incisional hernia. She underwent laparoscopic cholecystectomy and developed an incisional hernia. She underwent open incisional hernia pair with mesh and then had t laparoscopic ovarian surgery and she noticed the hernia recurred not long after that. Endorses pain at the hernia site and at upper midline. Plan for above surgery. Denies fevers, chills, chest pain, and SOB. REVIEW OF SYSTEMS: General: Negative for: weight loss >10% of BW in last 6 months, malaise and fever. Neurological: IIH s/p right transverse sinus stent 10/2023. Positive for: headaches. Negative for: SHIP SCALER tumor, delirium, dementia, hemiplegia, multiple sclerosis, Parkinson's disease, peripheral neuropathy, seizures, TIA and strokes. Respiratory: Negative for: asthma, COPD, current cough, dyspnea, home oxygen, pneumonia within 6 weeks, tobacco use, URI < 2 weeks and obstructive sleep apnea. Cardiovascular: Positive for: anticoagulation therapy (ASA 81 sp TSJ stent, will complete 01/26/25) Negative for: abdominal aortic aneurysm, angina, arrhythmia, CAD, chest pain, CHF, DVT/PE, hyperlipidemia, hypertension, recent NE, murmur/valvular heart disease, PTCA, PVD, open heart surgery and valve surgery. GI: See HPI. Positive for: abdominal pain, GERD and heartburn Negative for: colon cancer, dysphagia, diverticulitis, esophageal stricture, hepatitis, irritable bowel syndrome, inflammatory bowel disease, liver disease, nausea, pancreatitis, history of polyps, rectal cancer and vomiting. : Episode of pylenonephritis 08/2024 Positive for: nephrolithiasis (hx) and urinary tract infection (prone to UTI, last episode 09/2024). Negative for: BPH, decreased stream, dysuria, flank pain, frequent urination, hematuria, hesitancy, urinary incontinence, renal failure and self catheterization. HISTORICAL ARCHEOLOGIST: Negative for abnormal vaginal bleeding, abnormal vaginal discharge. Endocrine: Negative for: diabetes mellitus, diabetic neuropathy, hyperthyroidism, hypothyroidism, hyperparathyroidism and steroid for chronic problem. Hematology: Positive for: bruises/bleeds easily and chronic anti-coagulation/platelet meds. Patient is on anti-coagulation/platelet medication(s): Aspirin. Negative for: anemia, factor V Leiden, hemophilia, thrombocytopenia and von Willebrand disease. Oncology: Hx ovarian tumor sp resection Negative for: CA metastasis and chemo within 30 days. Psych: Positive for: anxiety (managed with effexor daily, ativan PRN, rarely needed lately). Negative for: ADHD, bipolar disorder, depression and drug dependency. Musculoskeletal: Negative for: back pain, joint pain and swelling. Skin: Negative for: lesions, itching and rash. Implanted Devices: No implanted devices. PAST MEDICAL HISTORY Diagnosis Date Adjustment disorder with depressed mood Ectopic (HCC) 12/2022 IIH (idiopathic intracranial hypertension) PMH - PAST MEDICAL HISTORY OF 11/10/93-color vision normal Post depression 07/18/2013 hypertension (HCC) PTSD (post-traumatic stress disorder) Unequal pupils left > right PAST SURGICAL HISTORY Procedure Laterality Date CHOLECYSTECTOMY 2010 COLONOSCOPY FLX DX W/COLLJ SPEC WHEN PFRMD 07/29/2018 Colonoscopy ECTOPIC - TREATMENT 02/12/2023 ESOPHAGOGASTRODUODENOSCOPY TRANSORAL DIAGNOSTIC 07/29/2018 EGD MYRINGOTOMY ASPIR&/EUSTACHIAN TUBE NFLTJ ANES 08/31/2015 Myringotomy/tubes- right ear PAST SURGICAL HISTORY OF tubes in ears, several times PAST SURGICAL HISTORY OF Right 07/2024 stenting and angioplasty of the right TSJ. PAST SURGICAL HISTORY OF laparoscopic ovarian surgery PAST SURGICAL HISTORY OF 2011 open incisional hernia pair with mesh REPAIR UMBILICAL HERNIA 2011 UNSPECIFIED ORAL SURGERY PROCEDURE, BY REPORT 4 teeth pulled [facility] DELIVERY SCHEDULING ORDER D&C FAMILY HISTORY Adopted: Yes Problem Relation Age of Onset Cancer Maternal Aunt Social History Tobacco Use Smoking status: Never Smokeless tobacco: Never Vaping Use Vaping status: Never Used Substance Use Topics Alcohol use: Not Currently Drug use: No Prior to Admission medications as of 01/22/25 1428 Medication Sig Last Dose Taking aspirin 81 mg chewable tablet Take 1 tablet by mouth once daily for 6 days. Stop 01/26/25 Yes metFORMIN ER (GLUCOPHAGE XR) 500 mg 24 hr tablet Take 1 tablet by mouth daily with lunch for 7 days, THEN 1 tablet two times a day with meals. Yes acetaminophen (TYLENOL) 500 mg tablet Take 2 tablets by mouth every 6 hours as needed for pain. Yes LORazepam (ATIVAN) 1 mg tablet Take 1 mg by mouth as needed for anxiety. Yes venlafaxine ER (EFFEXOR XR) 75 mg 24 hr capsule Take 1 capsule by mouth every afternoon. Yes aspirin 325 mg tablet Take 1 tablet by mouth once daily. Patient should start on October 22, 2024. acetaZOLAMIDE SR (DIAMOX SEQUELS) 500 mg capsule Take 1 capsule by mouth every evening. No medication comments found. ALLERGIES Allergen Reactions Tape [Adhesive Tape* Rash EKG tape pleitez skin- other tape gives patient rashes Objective PHYSICAL EXAM: General: alert and oriented, healthy appearance and obese. Pertinent negatives noted - not distressed. Skin: normal color, no rash or lesions. HEENT: EOM intact and pupils equal round. Pertinent negatives noted - no carotid bruit. Cardiovascular: regular rate and rhythm, normal S1 and S2, no rub, murmurs, or gallop. Respiratory: normal breath sounds, no wheezes or crackles. No chest wall deformity or tenderness. Abdomen: hernia. Extremities: no deformity, no edema or tenderness, no joint swelling or clubbing. Neurological: normal cognition and motor skills. Gait normal. No weakness or sensory deficit. PAIN ASSESSMENT: Pain Pain Level: 8 Pain Location: Abdomen-Mid Upper Description: Tightness Duration Amount of Time: 12 Duration Units: Years Frequency: Continuous VITALS: BP 149/89 Pulse 82 Temp (Src) 97.6 (Temporal) Ht 5' 6 (1.68m) Wt 251 lb 15.8 oz (114.3kg) SpO2 98% LMP 12/27/2024 BMI 40.69 kg/(m^2). Diagnostic tests reviewed for today's visit: Lab Value Units Date High Low HB 9.9 g/dL 01/22/2025 15.5 11.5 HCT 32.5 % 01/22/2025 46.0 36.0 WBC 8.71 k/uL 01/22/2025 11.00 3.70 PLT 353 k/uL 01/22/2025 400 150 NA 141 mmol/L 01/22/2025 144 136 K 4.5 mmol/L 01/22/2025 5.1 3.7 GLUC 95 mg/dL 01/22/2025 99 74 BUN 13 mg/dL 01/22/2025 21 7 CREAT 0.68 mg/dL 01/22/2025 0.96 0.58 PTSEC 10.8 sec 01/22/2025 13.0 9.7 INR 1.0 no uni* 01/22/2025 1.3 0.9 APTT 24.5 sec 01/22/2025 32.4 23.0 ALT 14 U/L 01/22/2025 38 7 AST 13 U/L 01/22/2025 35 13 TBILI <0.2 mg/dL 01/22/2025 1.3 0.2 TSH No results within date range. Lab Value Units Date High Low HCGQT No results within date range. UHCG No results within date range. HCG, BODY* No results within date range. Lab Value Units Date High Low ABORHD No results within date range. ABSCREEN No results within date range. No results found for: HBA1C Recent Results (from the past 8760 hours) ECG COMPLETE Collection Time: 01/22/25 3:14 PM Result Value Ventricular Rate 76 Atrial Rate 76 P-R Interval 130 QRS Duration 90 QT Interval 378 QTC Calculation (Bazett) 425 Calculated P [place] 51 Calculated R [place] 65 Calculated T [place] 32 Impression NORMAL SINUS RHYTHM NORMAL ECG No results found for this or any previous visit (from the past 00411 hours). Instructions Given to Patient: Instructions located in the after visit summary. Patient given verbal and written preop instructions and voices comprehension and compliance. SIGNATURE: Astrid Vuong APRN.CNP PATIENT NAME: Omar Gomez DATE: January 23, 2025 TIME: 3:36 PM PAGER/CONTACT #: documented in this encounter [facility] 01-13-2025 Note HNO ID: [id number] Author: SUGEY ALLAN APRN.CNP Service: ? Author Type: Nurse Practitioner Type: Progress Notes Filed: 01/13/2025 17:30 Note Text: [facility]: Cerebrovascular Neurosurgery and Endovascular Surgical Neuroradiology Virtual Visit Patient consents to this virtual visit using travelfox Zoom Video Visit. The visit required patient-provider interaction for the medical decision making as documented below. I have communicated my name and active licensure. The patient's identity and physical location were verified at the time of this visit. Either the patient or their legal help desk representative has been informed of the risks and benefits of -- and alternatives to -- treatment through a remote evaluation and consents to proceed with the evaluation remotely. Omar Gomez [facility]#: [id number] Date of Service: 01/13/2025 Primary Care Provider: No PCP Collaborating Physician: Dr. Chula Morton Subjective Last Office Visit: 10/08/24 NEUS REASON FOR VISIT RFV Omar Gomez is a 39 yof with PMH for migraine, HTN, PTSD, depression, obesity and IIH s/p right transverse sinus stent 10/2023. Patient originally presented to Dr. Morton's clinic on 06/12/24 r/t IIH dx in 2022 with evidence of papilledema, LP OP 33. Patient was initially treated with diamox but had significant side effects. Patient had MRV that showed left transverse sinus stenosis that was recommended for stenting. Angio for treatment on 08/08 showed evidence for left sided pressure gradient of 15 and 14 on the right with follow-up stenting of dominant right transverse sinus. She was discharged on POD 1 after uneventful hospital course. She was last evaluated 10/08/24 with slowly improving vision and improvement in optic nerve edema and recurrent dull headache. Currently she does not feel worse but notes that her headaches have become more severe. When they do occur, they are intense and unresponsive to Tylenol. She has tried hot showers and caffeine for relief, with variable success. Prior to surgery, she used ibuprofen for headache management. She reports two episodes of double vision in the past two weeks, describing her eyes as feeling swollen during these episodes. She also experiences ongoing pressure in her eyes and feels extremely tired, leading her to question the effectiveness of the stent. She does not endorse any numbness, tingling, or weakness. She does not yet have a primary care physician for ongoing health maintenance like BP management. 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 LIST Abdominal Pain, Right Lower Quadrant [facility] Pain Hypertension Pulmonary Nodule Palpitations Major Depressive Disorder Ptsd (Post-Traumatic Stress Disorder) Abdominal Pain Iih (Idiopathic Intracranial Hypertension) Obesity Due to Excess Calories Without Serious Comorbidity Migraine With Aura and Without Status Migrainosus, Not Intractable Idiopathic Intracranial Hypertension 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 PAST SURGICAL HISTORY Procedure Laterality Date CHOLECYSTECTOMY 2010 COLONOSCOPY FLX DX W/COLLJ SPEC WHEN PFRMD 07/29/2018 Colonoscopy ECTOPIC - TREATMENT 02/12/2023 ESOPHAGOGASTRODUODENOSCOPY TRANSORAL DIAGNOSTIC 07/29/2018 EGD MYRINGOTOMY ASPIRAND/EUSTACHIAN TUBE NFLTJ ANES 08/31/2015 Myringotomy/tubes- right ear PAST SURGICAL HISTORY OF tubes in ears REPAIR UMBILICAL HERNIA 2011 UNSPECIFIED ORAL SURGERY PROCEDURE, BY REPORT 4 teeth pulled [facility] DELIVERY SCHEDULING ORDER Allergies: Tape [Adhesive Tape (Rosins)] Medications: Current Outpatient Medications Medication Sig aspirin 325 mg tablet Take 1 tablet by mouth once daily. Patient should start on October 22, 2024. aspirin 81 mg chewable tablet Take 1 tablet by mouth once daily. Patient should start on October 23, 2024. acetaZOLAMIDE SR (DIAMOX SEQUELS) 500 mg capsule Take 1 capsule by mouth every evening. metFORMIN ER (GLUCOPHAGE XR) 500 mg 24 hr tablet Take 1 tablet by mouth daily with lunch for 7 days, THEN 1 tablet two times a day with meals. pantoprazole DR (PROTONIX) 40 mg tablet Take 1 tablet by mouth once daily. acetaminophen (TYLENOL) 500 mg tablet Take 2 tablets by mouth every 6 hours as needed for pain. methocarbamol (ROBAXIN) 500 mg tablet Take 1 tablet by mouth three times a day as needed (Headache). LORazepam (ATIVAN) 1 mg tablet Take (more content not included)... [facility] 01-13-2025 History of Present illness Narrative Images from the original note were not included. Cerebrovascular Center: Cerebrovascular Neurosurgery and Endovascular Surgical Neuroradiology Virtual Visit Patient consents to this virtual visit using travelfox Zoom Video Visit. The visit required patient-provider interaction for the medical decision making as documented below. I have communicated my name and active licensure. The patient's identity and physical location were verified at the time of this visit. Either the patient or their legal help desk representative has been informed of the risks and benefits of -- and alternatives to -- treatment through a remote evaluation and consents to proceed with the evaluation remotely. Omar Crump Gomez [facility]#: [id number] Date of Service: 01/13/2025 Primary Care Provider: No PCP Collaborating Physician: Dr. Chula Morton Subjective Last Office Visit: 10/08/24 NEUS REASON FOR VISIT RFV Omar Gomez is a 39 yof with PMH for migraine, HTN, PTSD, depression, obesity and IIH s/p right transverse sinus stent 10/2023. Patient originally presented to Dr. Morton's clinic on 06/12/24 r/t IIH dx in 2022 with evidence of papilledema, LP OP 33. Patient was initially treated with diamox but had significant side effects. Patient had MRV that showed left transverse sinus stenosis that was recommended for stenting. Angio for treatment on 08/08 showed evidence for left sided pressure gradient of 15 and 14 on the right with follow-up stenting of dominant right transverse sinus. She was discharged on POD 1 after uneventful hospital course. She was last evaluated 10/08/24 with slowly improving vision and improvement in optic nerve edema and recurrent dull headache. Currently she does not feel worse but notes that her headaches have become more severe. When they do occur, they are intense and unresponsive to Tylenol. She has tried hot showers and caffeine for relief, with variable success. Prior to surgery, she used ibuprofen for headache management. She reports two episodes of double vision in the past two weeks, describing her eyes as feeling swollen during these episodes. She also experiences ongoing pressure in her eyes and feels extremely tired, leading her to question the effectiveness of the stent. She does not endorse any numbness, tingling, or weakness. She does not yet have a primary care physician for ongoing health maintenance like BP management. 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 LIST Abdominal Pain, Right Lower Quadrant [facility] Pain Hypertension Pulmonary Nodule Palpitations Major Depressive Disorder Ptsd (Post-Traumatic Stress Disorder) Abdominal Pain Iih (Idiopathic Intracranial Hypertension) Obesity Due to Excess Calories Without Serious Comorbidity Migraine With Aura and Without Status Migrainosus, Not Intractable Idiopathic Intracranial Hypertension 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 PAST SURGICAL HISTORY Procedure Laterality Date CHOLECYSTECTOMY 2010 COLONOSCOPY FLX DX W/COLLJ SPEC WHEN PFRMD 07/29/2018 Colonoscopy ECTOPIC - TREATMENT 02/12/2023 ESOPHAGOGASTRODUODENOSCOPY TRANSORAL DIAGNOSTIC 07/29/2018 EGD MYRINGOTOMY ASPIR&/EUSTACHIAN TUBE NFLTJ ANES 08/31/2015 Myringotomy/tubes- right ear PAST SURGICAL HISTORY OF tubes in ears REPAIR UMBILICAL HERNIA 2011 UNSPECIFIED ORAL SURGERY PROCEDURE, BY REPORT 4 teeth pulled [facility] DELIVERY SCHEDULING ORDER Allergies: Tape [Adhesive Tape (Rosins)] Medications: Current Outpatient Medications Medication Sig aspirin 325 mg tablet Take 1 tablet by mouth once daily. Patient should start on October 22, 2024. aspirin 81 mg chewable tablet Take 1 tablet by mouth once daily. Patient should start on October 23, 2024. acetaZOLAMIDE SR (DIAMOX SEQUELS) 500 mg capsule Take 1 capsule by mouth every evening. metFORMIN ER (GLUCOPHAGE XR) 500 mg 24 hr tablet Take 1 tablet by mouth daily with lunch for 7 days, THEN 1 tablet two times a day with meals. pantoprazole DR (PROTONIX) 40 mg tablet Take 1 tablet by mouth once daily. acetaminophen (TYLENOL) 500 mg tablet Take 2 tablets by mouth every 6 hours as needed for pain. methocarbamol (ROBAXIN) 500 mg tablet Take 1 tablet by mouth three times a day as needed (Headache). LORazepam (ATIVAN) 1 mg tablet Take 1 [...] in the MR contrast administration guidelines link. (Patient not taking: Reported on 07/25/2024) venlafaxine ER (EFFEXOR XR) 75 mg 24 hr capsule Take 1 capsule by mouth every afternoon. Miscellaneous Medical Supply (BLOOD PRESSURE CUFF) 1 Each once daily. No current facility-administered medications for this visit. Social History Tobacco Use Smoking status: Never Smokeless tobacco: Never Vaping Use Vaping status: Never Used Substance Use Topics Alcohol use: Not Currently Drug use: No Objective Patient Entered Questionnaires 06/08/2024 Health Status Impact by Stroke or CVD Impact To a great extent 01/08/2025 10/07/2024 Health Status Change Since Last Visit Change Minimally improved Minimally improved PROMIS/NeuroQoL Score Percentiles 01/08/2025 10/07/2024 06/08/2024 Physical Health Physical Function Percentile 18* 66 21* Sleep Percentile 27* 7 1 Fatigue Percentile 7 1 0 Pain Interference Percentile 10 84 12 01/08/2025 10/07/2024 06/08/2024 PROMIS SOCIAL ROLE SCORE Social Role Satisfaction Percentile 31 24* 31 01/08/2025 10/07/2024 06/08/2024 Mental Health NeuroQol Cognitive Function Percentile 5 General Self-Efficacy Percentile 14 2 1 01/08/2025 10/07/2024 06/08/2024 PROMIS Global Health Scale Physical Health Percentile 15 10 4 Mental Health Percentile 13 1 0 Patient-reported Percentiles provide an indication of how a [...] Summary for PROMIS Physical Function T-score = 41 (Percentile 18) Much difficulty - Do 2 hours of physical labor. Some difficulty - Walk more than a mile (1.6 km). Depression Screening 01/08/2025 10/07/2024 06/08/2024 PHQ-9 Score 19 22 22 Self-Harm Response More than half the days Several days Several days PHQ-9 Scores: PHQ-9 Self-Harm (Item 9) Response: 0 - 9 No to Mild depression 0 - Not at all 10 - 14 Moderate depression 1 - Several Days > 15 Severe depression 2 - More than half the days 3 - Nearly every day 06/08/2024 Sleep Apnea Probability Score Probability (%) 21 (Sleep study not recommended) PHYSICAL EXAMINATION LMP 07/10/2024 (Approximate) Limited in setting of video visit General: Pleasant, well-developed, well-nourished, in no acute distress. HEENT: Normocephalic, atraumatic. Lungs: Respirations even and unlabored. Skin: No rash or ecchymoses visible. Neurological: Awake, alert, oriented to person, place, and time. Speech fluent, no dysarthria. Good attention and insight into illness. Cranial Nerves: Extraocular movements grossly intact. Facial movements appear normal and symmetric. Motor: Moves upper extremities freely. RESULTS 01/08/2025 MRV brain: 1. Persistent nonspecific left transverse/sigmoid junction narrowing. 2. Unclear significance with differential provided above. 3. Patent and stable remaining intracranial deep venous system. 4. Stable partially empty sella. 10/06/2024 Optic Nerve: Minimal residual peripapillary retinal nerve fiber layer rim elevation 07/29/2024 Angiogram Tx: 1. Initial bilateral severe stenosis of both transverse-sigmoid junctions. 2. Pressure gradient of 15 mmHg was recorded on the left side and of 14 mmHg recorded on the right side. 3. Successful transvenous stenting across the stenotic segment and balloon angioplasty, with no residual stenosis of the dominant right transverse sinus. 06/12/2024 IR/LP: Opening pressure was recorded at 22 cm H2O. Closing pressure was recorded at 17 cm H2O (patient could no longer tolerate the procedure) CSF Color: Clear 05/15/2024 MRV brain: Suspect mild segmental stenosis of the left transverse sinus, similar to MRV of 04/26/2023. Unremarkable remaining intracranial MRV. Incidental partially empty sella. Assessment & Plan # IIH (idiopathic intracranial hypertension) (G93.2) Patient underwent stenting in July for right transverse sinus stenosis. Recent MRV shows a well-functioning stent with significant improvement in venous drainage. However, patient reports persistent headaches and occasional double vision, with a sensation of pressure behind the eyes. No current numbness, tingling, or generalized weakness or visual loss. Blood pressure readings have been elevated, with recent measurements of 160/101 mmHg and 153/107 mmHg. - Continue aspirin therapy until 01/26. - Referral to primary care for blood pressure management and general health maintenance. - Follow-up with Dr. Colón on 03/03 to assess for any changes in optic nerve edema or visual carson. - Monitor for increased frequency of double vision or any vision loss; advised to seek emergency care if these symptoms worsen. - Sent note to Dr. Morton to review recent imaging and patient's current symptoms. - Discussed that stenting is to prevent vision loss and prevent IIH complications and ongoing symptoms like residual headaches are not unexpected. SEGOVIA neuro offered again as ordered at last appointment. # Healthcare maintenance (Z00.00) Patient does not have a primary care provider and is not currently on any antihypertensive medication. No history of tobacco, vaping, or drug use. Rare alcohol consumption. No known family history of aneurysms or intracranial bleeding due to adoption. - Referral to primary care for ongoing healthcare maintenance and blood pressure management. - Educated on the importance of regular follow-up for risk factor control. (Of note: some elements may have been copied from a previous note and have been updated/reviewed where appropriate. All portions reflect current medical decision making from today. The above portions of the patient's history were reviewed, confirmed, updated as necessary: allergies, current medications, past family history, past medical history, past social history, past surgical history, problem list, HPI and ROS obtained by others.) I spent a total of 30 minutes on the date of the service which included preparing to see the patient, [id number] patient care, completing clinical documentation, obtaining and/or reviewing separately obtained history, performing a medically appropriate examination, counseling and educating the patient/family/caregiver, communicating with other HCPs (not separately reported), independently interpreting results (not separately reported), and communicating results to the patient/family/caregiver. Recording using CDNlion software for draft documentation of the visit was discussed with the patient/authorized help desk representative; all questions welcomed and answered. Patient/authorized help desk representative agreed to proceed SIGNATURE Sugey Allan APRN.CNP 01/13/[address] Eldon Morton documented in this encounter [facility] 01-08-2025 History of Present illness Narrative Radiology Service Progress Note DATE OF SERVICE: January 08, 2025 TIME: 11:46 AM PATIENT WEIGHT: 240LBS PATIENT IDENTITY VERIFICATION COMPLETED USING TWO (2) STANDARD IDENTIFIERS: Name and Date of confirmed by patient verbally and Name and Date of confirmed by identification band. FALL SCREENING: Has the patient had 2 falls in the last year or 1 fall with injury or currently using an Ambulatory Assistive Device (Walker, Cane, Wheelchair, Crutches, etc.)? No PATIENT GENDER DATA: Assigned female at . status: : No status: NO. ALLERGIES: Reviewed and unchanged CONTRAST ALLERGY: No EXAM: MRI - CONTRAST TYPE: GROUP II IV SITE: Ambulatory: A peripheral IV was started in the Left forearm with a Angio cath: 22 gauge. IV SITE APPEARANCE: Clean,Dry and Intact SIGNATURE: Perla Rivas RN PATIENT NAME: Omar Gomez DATE: January 08, 2025 TIME: 11:46 AM Radiology Service Progress Note PATIENT NAME: Omar Gomez DATE OF SERVICE: January 08, 2025 TIME: 1:11 PM PATIENT IDENTITY VERIFICATION COMPLETED USING TWO (2) IDENTIFIERS: Name and Date of confirmed by patient verbally and Name and Date of confirmed by identification band. FALL SCREENING: Has the patient had 2 falls in the last year or 1 fall with injury or currently using an Ambulatory Assistive Device (Walker, Cane, Wheelchair, Crutches, etc.)? No PATIENT GENDER DATA: Assigned female at . status: : No status: NO. PATIENT RELEVANT IMPLANT DATA REVIEWED: Yes Patient has stent 3T 720g/cm implanted -5cm rule applied, patient brought into scanner on cart PATIENT PRESENTS WITH AN IMPLANTABLE OR ATTACHED PLANT ASSOCIATE: No RADIOLOGY DEPARTMENT: MR; Exam(s) Completed: Head: Sagittal Sinus MRV. Lavender Administered: No PERIPHERAL IV DATA: Site assessment: Clean,Dry and Intact, Site disposition Discontinued SIGNED BY: RT Davis(R) January 08, 2025 1:11 PM documented in this encounter [facility] 01-08-2025 Note HNO ID: [id number] Author: PERLA RIVAS RN Service: Nursing Author Type: Registered Nurse Type: Progress Notes Filed: 01/08/2025 12:07 Note Text: Radiology Service Progress Note DATE OF SERVICE: January 08, 2025 TIME: 11:46 AM PATIENT WEIGHT: 240LBS PATIENT IDENTITY VERIFICATION COMPLETED USING TWO (2) STANDARD IDENTIFIERS: Name and Date of confirmed by patient verbally and Name and Date of confirmed by identification band. FALL SCREENING: Has the patient had 2 falls in the last year or 1 fall with injury or currently using an Ambulatory Assistive Device (Walker, Cane, Wheelchair, Crutches, etc.)? No PATIENT GENDER DATA: Assigned female at . status: : No status: NO. ALLERGIES: Reviewed and unchanged CONTRAST ALLERGY: No EXAM: MRI - CONTRAST TYPE: GROUP II IV SITE: Ambulatory: A peripheral IV was started in the Left forearm with a Angio cath: 22 gauge. IV SITE APPEARANCE: Clean,Dry and Intact SIGNATURE: Perla Rivas RN PATIENT NAME: Omar Gomez DATE: January 08, 2025 TIME: 11:46 AM [facility] 01-08-2025 Note HNO ID: [id number] Author: JOVITA JOHNS RT(R) Service: Radiology Author Type: Organic Chemistry Teacher Type: Progress Notes Filed: 01/08/2025 13:12 Note Text: Radiology Service Progress Note PATIENT NAME: Omar Gomez DATE OF SERVICE: January 08, 2025 TIME: 1:11 PM PATIENT IDENTITY VERIFICATION COMPLETED USING TWO (2) IDENTIFIERS: Name and Date of confirmed by patient verbally and Name and Date of confirmed by identification band. FALL SCREENING: Has the patient had 2 falls in the last year or 1 fall with injury or currently using an Ambulatory Assistive Device (Walker, Cane, Wheelchair, Crutches, etc.)? No PATIENT GENDER DATA: Assigned female at . status: : No status: NO. PATIENT RELEVANT IMPLANT DATA REVIEWED: Yes Patient has stent 3T 720g/cm implanted -5cm rule applied, patient brought into scanner on cart PATIENT PRESENTS WITH AN IMPLANTABLE OR ATTACHED PLANT ASSOCIATE: No RADIOLOGY DEPARTMENT: MR; Exam(s) Completed: Head: Sagittal Sinus MRV. Lavender Administered: No PERIPHERAL IV DATA: Site assessment: Clean,Dry and Intact, Site disposition Discontinued SIGNED BY: RT Davis(R) January 08, 2025 1:11 PM [facility] 11-10-2024 Note HNO ID: [id number] Author: JASWANT ASKEW MD Service: ? Author Type: Physician Type: Progress Notes Filed: 11/10/2024 15:54 Note Text: Consultation requested by Dr. Rhianna Campo for an opinion regarding recurrent incisional hernia. My final recommendations will be communicated back to the requesting physician by way of shared medical record or letter via [place] mail. Omar Gomez is a 39 year old female who presents with recurrent incisional hernia. She underwent laparoscopic cholecystectomy and developed an incisional hernia. She underwent open incisional hernia pair with mesh and what I think was an IPOM configuration. She then underwent laparoscopic ovarian surgery and she noticed the hernia recurred not long after that. She complains of pain and a bulge at the hernia site. Her CT scan shows a defect that is about 9 cm wide. I think I can see the mesh in an IPOM configuration. We discussed the open versus robotic abdominal wall reconstruction study and she would like to participate. Plan for robotic possible open abdominal wall reconstruction. I have seen and evaluated the patient and discussed the case with the resident physician. I agree with the assessment and plan as documented in the resident?s note including a ROS that was reviewed and negative other than what was indicated in our notes. Patient consented for study? Yes STUDY TITLE: Robotic versus Open Ventral Hernia Repair (ROVHR) Trial IRB NO.: # [id number] CONCRETE MIXER OPERATOR HELPER: Julien Avelar MD LIVESTOCK HANDLER: Garo Monteiro MD CONTACT: [email or web address] Consenting was performed by the attending surgeon, in a [id number] manner, during preoperative evaluation in General Surgery clinic. Discussed above research protocol with the patient. The risks, benefits, alternatives, and costs were discussed. The study requirements and follow up procedures were reviewed and the importance of follow up compliance was stressed. All patient questions were addressed and answered. Patient has read and understood the study procedures and requirements. Patient has agreed to proceed with trial participation and consent signed. Copy of the signed consent provided to the patient. INCLUSION CRITERIA Yes No 1. The patient is > 18 years of age [x] [] 2. Midline ventral hernia defects ranging from 7 cm to 15 cm in greatest width as measured by pre-operative CT scan [x] [] 3. Body mass index (BMI) less than or equal to 45 [x] [] 4. Patient deemed either a robotic or an open candidate by the operating surgeon [x] [] EXCLUSION CRITERIA Yes No 1. Age 17 or younger [] [x] 2. Prisoners [] [x] 3. patients [] [x] 4. Emergent cases [] [x] 5. BMI greater than 45 [] [x] 6. Hernia defects less than 7 cm or greater than 15 cm in width as measured by pre-operative CT scan [] [x] ' [facility] 11-10-2024 History of Present illness Narrative Consultation requested by Dr. Rhianna Campo for an opinion regarding recurrent incisional hernia. My final recommendations will be communicated back to the requesting physician by way of shared medical record or letter via [place] mail. Omar Gomez is a 39 year old female who presents with recurrent incisional hernia. She underwent laparoscopic cholecystectomy and developed an incisional hernia. She underwent open incisional hernia pair with mesh and what I think was an IPOM configuration. She then underwent laparoscopic ovarian surgery and she noticed the hernia recurred not long after that. She complains of pain and a bulge at the hernia site. Her CT scan shows a defect that is about 9 cm wide. I think I can see the mesh in an IPOM configuration. We discussed the open versus robotic abdominal wall reconstruction study and she would like to participate. Plan for robotic possible open abdominal wall reconstruction. I have seen and evaluated the patient and discussed the case with the resident physician. I agree with the assessment and plan as documented in the resident s note including a ROS that was reviewed and negative other than what was indicated in our notes. Patient consented for study? Yes STUDY TITLE: Robotic versus Open Ventral Hernia Repair (ROVHR) Trial IRB NO.: # [id number] CONCRETE MIXER OPERATOR HELPER: Julien Avelar MD LIVESTOCK HANDLER: Garo Monteiro MD CONTACT: [email or web address] Consenting was performed by the attending surgeon, in a [id number] manner, during preoperative evaluation in General Surgery clinic. Discussed above research protocol with the patient. The risks, benefits, alternatives, and costs were discussed. The study requirements and follow up procedures were reviewed and the importance of follow up compliance was stressed. All patient questions were addressed and answered. Patient has read and understood the study procedures and requirements. Patient has agreed to proceed with trial participation and consent signed. Copy of the signed consent provided to the patient. INCLUSION CRITERIA Yes No 1. The patient is > 18 years of age [x] [] 2. Midline ventral hernia defects ranging from 7 cm to 15 cm in greatest width as measured by pre-operative CT scan [x] [] 3. Body mass index (BMI) less than or equal to 45 [x] [] 4. Patient deemed either a robotic or an open candidate by the operating surgeon [x] [] EXCLUSION CRITERIA Yes No 1. Age 17 or younger [] [x] 2. Prisoners [] [x] 3. patients [] [x] 4. Emergent cases [] [x] 5. BMI greater than 45 [] [x] 6. Hernia defects less than 7 cm or greater than 15 cm in width as measured by pre-operative CT scan [] [x] ' What is the reason for your visit today? Consult Who is your referring physician? Dr. Askew Are you having poor oral intake? NO Have you had unintentional weight loss of 15 lbs/7 Kg in the last 3-6 months? YES Bowels: regular Wound: clean & dry Temperature: No Drains: No documented in this encounter [facility] 11-10-2024 History and physical note Images from the original note were not included. GENERAL SURGERY HISTORY AND PHYSICAL EXAMINATION SERVICE DATE: 11/10/2024 SERVICE TIME: 1:45PM PRIMARY CARE PHYSICIAN: No primary care provider on file. REASON FOR VISIT: Omar Gomez is a 39 year old female who is being seen for recurrent paraumbilical incisional hernia. 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 It is associated with 6/10 pain, characterized as constant, sharp, exacerbated by leaning forward & alleviated by laying down. The pain is exacerbated by increased PO intake and tender to touch. She endorses intermittent nausea, denies vomiting. She also endorses chronic constipation, BM every 1-2x weeks, since her most recent surgery. 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) Home AC/AP: ASA 81mg Home O2: no Diabetes: no Hx of Stroke/Seizures/NE: no Non-smoker Recent history of SHIP SCALER stent placement (right transverse sinus stent 10/2023) 10/12 IIH FUNCTIONAL STATUS: Walk indoors, such as around the house (1.75 METs) Do light work around the house, such as dusting or washing dishes (2.70 METs) Take care of self, that is eating, dressing, bathing, using the toilet (2.75 METs) Walk a block or two on level ground (2.75 METs) PAST MEDICAL HISTORY Diagnosis Date Adjustment disorder with depressed mood Ectopic 12/2022 IIH (idiopathic intracranial hypertension) PMH - PAST MEDICAL HISTORY OF 11/10/93-color vision normal Post depression 07/18/2013 hypertension PTSD (post-traumatic stress disorder) Unequal pupils [...] Relation Age of Onset Cancer Maternal Aunt SOCIAL HISTORY: Social History Tobacco Use Smoking status: Never Smokeless tobacco: Never Vaping Use Vaping status: Never Used Substance Use Topics Alcohol use: Not Currently Drug use: No MEDICATIONS: Prior to Admission medications as of 11/10/24 1343 Medication Sig Last Dose Taking aspirin 325 mg tablet Take 1 tablet by mouth once daily. Patient should start on October 22, 2024. clopidogrel (PLAVIX) 75 mg tablet Take 1 tablet by mouth once daily for 12 days. aspirin 81 mg chewable tablet Take 1 tablet by mouth once daily. Patient should start on October 23, 2024. acetaZOLAMIDE SR (DIAMOX SEQUELS) 500 mg capsule Take 1 capsule by mouth every evening. metFORMIN ER (GLUCOPHAGE XR) 500 mg 24 hr tablet Take 1 tablet by mouth daily with lunch for 7 days, THEN 1 tablet two times a day with meals. pantoprazole DR (PROTONIX) 40 mg tablet Take 1 tablet by mouth once daily. acetaminophen (TYLENOL) 500 mg tablet Take 2 tablets by mouth every 6 hours as needed for pain. methocarbamol (ROBAXIN) 500 mg tablet Take 1 tablet by mouth three times a day as needed (Headache). LORazepam (ATIVAN) 1 mg tablet Take 1 mg by mouth as needed for anxiety. iv contrast (will be provided with radiology test) [facility] Brain Inject, intravenously, once for 1 dose. [...] in the MR contrast administration guidelines link. Patient not taking: Reported on 07/25/2024 venlafaxine ER (EFFEXOR XR) 75 mg 24 hr capsule Take 1 capsule by mouth every afternoon. Miscellaneous Medical Supply (BLOOD PRESSURE CUFF) 1 Each once daily. No medication comments found. CURRENT ALLERGIES: ALLERGIES Allergen Reactions Tape [Adhesive Tape* Rash EKG tape pleitez skin- other tape gives patient rashes REVIEW OF SYSTEMS: Unremarkable Negative except for as listed above PHYSICAL EXAM: VITALS: BP 168/96 Pulse 79 Temp (Src) 97.2 (Temporal) Ht 5' 6 (1.68m) Wt 250 lb (113.4kg) LMP 07/10/2024 BMI 40.37 kg/(m^2). General: Alert and oriented, soft-spoken Skin: normal color, no rashes/lesions on exposed skin HEENT: EOM in tact, no scleral icterus Cardiovascular: Clear S1 & S2; no UE peripheral pallor/cyanosis Lungs: Normal breath sounds, no wheezing Abdomen: soft, non-tender, no rigidity, small ~2 inch vertical scar inferior to umbilicus + 2-3 visible laparoscopic surgical scars on right side of abdomen and above umbilicus; moderate sized, reducible bulge in 11 o' clock position with respect to umbilicus; Extremities: no obvious deformities or edema of exposed extremities Neurological: ANOx3 Pulses: Carotid & radial pulses 2+ bilaterally LABS No new labs IMAGING 09/19/2024 CTAP: ~8cm+ supraumbilical rectus diastasis ASSESSMENT & PLAN Omar Bhandari is a 39 year old female with IIH s/p transverse sinus stenting (10/2024), HTN, and significant psychiatric comorbidities presenting with abdominal pain secondary to ventral hernia recurring after primary umbilical hernia repair in 2011. On interview, she denies any symptoms of concerning for obstruction requiring acute intervention. Nonetheless, considering her reporting of significant pain in relation to the recurring hernia, as well as review of most recent imaging remarkable for relatively large (>7cm) rectus diastasis, it is reasonable to pursue elective hernia repair via a bilateral tranversus abdominus release (TAR) technique. We also discussed Omar's eligibility for a randomized clinical trial Robotic Versus Open Ventral Hernia Repair, which she is amenable to. SIGNATURE: Andrew Salgado MS III PATIENT NAME: Omar Gomez DATE: November 10, 2024 TIME: 1:47 PM PAGER/CONTACT #: [phone] [facility] 11-10-2024 History and physical note Images from the original note were not included. GENERAL SURGERY HISTORY AND PHYSICAL EXAMINATION SERVICE DATE: 11/10/2024 SERVICE TIME: 1:45PM PRIMARY CARE PHYSICIAN: No primary care provider on file. REASON FOR VISIT: Omar Gomez is a 39 year old female who is being seen for recurrent paraumbilical incisional hernia. 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 It is associated with 6/10 pain, characterized as constant, sharp, exacerbated by leaning forward & alleviated by laying down. The pain is exacerbated by increased PO intake and tender to touch. She endorses intermittent nausea, denies vomiting. She also endorses chronic constipation, BM every 1-2x weeks, since her most recent surgery. 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) Home AC/AP: ASA 81mg Home O2: no Diabetes: no Hx of Stroke/Seizures/NE: no Non-smoker Recent history of SHIP SCALER stent placement (right transverse sinus stent 10/2023) 2/2 IIH FUNCTIONAL STATUS: Walk indoors, such as around the house (1.75 METs) Do light work around the house, such as dusting or washing dishes (2.70 METs) Take care of self, that is eating, dressing, bathing, using the toilet (2.75 METs) Walk a block or two on level ground (2.75 METs) PAST MEDICAL HISTORY Diagnosis Date Adjustment disorder with depressed mood Ectopic 12/2022 IIH (idiopathic intracranial hypertension) PMH - PAST MEDICAL HISTORY OF 11/10/93-color vision normal Post depression 07/18/2013 hypertension PTSD (post-traumatic stress disorder) Unequal pupils [...] Relation Age of Onset Cancer Maternal Aunt SOCIAL HISTORY: Social History Tobacco Use Smoking status: Never Smokeless tobacco: Never Vaping Use Vaping status: Never Used Substance Use Topics Alcohol use: Not Currently Drug use: No MEDICATIONS: Prior to Admission medications as of 11/10/24 1343 Medication Sig Last Dose Taking aspirin 325 mg tablet Take 1 tablet by mouth once daily. Patient should start on October 22, 2024. clopidogrel (PLAVIX) 75 mg tablet Take 1 tablet by mouth once daily for 12 days. aspirin 81 mg chewable tablet Take 1 tablet by mouth once daily. Patient should start on October 23, 2024. acetaZOLAMIDE SR (DIAMOX SEQUELS) 500 mg capsule Take 1 capsule by mouth every evening. metFORMIN ER (GLUCOPHAGE XR) 500 mg 24 hr tablet Take 1 tablet by mouth daily with lunch for 7 days, THEN 1 tablet two times a day with meals. pantoprazole DR (PROTONIX) 40 mg tablet Take 1 tablet by mouth once daily. acetaminophen (TYLENOL) 500 mg tablet Take 2 tablets by mouth every 6 hours as needed for pain. methocarbamol (ROBAXIN) 500 mg tablet Take 1 tablet by mouth three times a day as needed (Headache). LORazepam (ATIVAN) 1 mg tablet Take 1 mg by mouth as needed for anxiety. iv contrast (will be provided with radiology test) [facility] Brain Inject, intravenously, once for 1 dose. [...] in the MR contrast administration guidelines link. Patient not taking: Reported on 07/25/2024 venlafaxine ER (EFFEXOR XR) 75 mg 24 hr capsule Take 1 capsule by mouth every afternoon. Miscellaneous Medical Supply (BLOOD PRESSURE CUFF) 1 Each once daily. No medication comments found. CURRENT ALLERGIES: ALLERGIES Allergen Reactions Tape [Adhesive Tape* Rash EKG tape pleitez skin- other tape gives patient rashes REVIEW OF SYSTEMS: Unremarkable Negative except for as listed above PHYSICAL EXAM: VITALS: BP 168/96 Pulse 79 Temp (Src) 97.2 (Temporal) Ht 5' 6 (1.68m) Wt 250 lb (113.4kg) LMP 07/10/2024 BMI 40.37 kg/(m^2). General: Alert and oriented, soft-spoken Skin: normal color, no rashes/lesions on exposed skin HEENT: EOM in tact, no scleral icterus Cardiovascular: Clear S1 & S2; no UE peripheral pallor/cyanosis Lungs: Normal breath sounds, no wheezing Abdomen: soft, non-tender, no rigidity, small ~2 inch vertical scar inferior to umbilicus + 2-3 visible laparoscopic surgical scars on right side of abdomen and above umbilicus; moderate sized, reducible bulge in 11 o' clock position with respect to umbilicus; Extremities: no obvious deformities or edema of exposed extremities Neurological: ANOx3 Pulses: Carotid & radial pulses 2+ bilaterally LABS No new labs IMAGING 09/19/2024 CTAP: ~8cm+ supraumbilical rectus diastasis ASSESSMENT & PLAN Omar Bhandari is a 39 year old female with IIH s/p transverse sinus stenting (10/2024), HTN, and significant psychiatric comorbidities presenting with abdominal pain secondary to ventral hernia recurring after primary umbilical hernia repair in 2011. On interview, she denies any symptoms of concerning for obstruction requiring acute intervention. Nonetheless, considering her reporting of significant pain in relation to the recurring hernia, as well as review of most recent imaging remarkable for relatively large (>7cm) rectus diastasis, it is reasonable to pursue elective hernia repair via a bilateral tranversus abdominus release (TAR) technique. We also discussed Omar's eligibility for a randomized clinical trial Robotic Versus Open Ventral Hernia Repair, which she is amenable to. SIGNATURE: Andrew Salgado MS III PATIENT NAME: Omar Gomez DATE: November 10, 2024 TIME: 1:47 PM PAGER/CONTACT #: [phone] documented in this encounter [facility] 11-10-2024 Note HNO ID: [id number] Author: BELEN MALLORY MA Service: ? Author Type: Medical Transport Specialist Type: Progress Notes Filed: 11/10/2024 15:54 Note Text: What is the reason for your visit today? Consult Who is your referring physician? Dr. Askew Are you having poor oral intake? NO Have you had unintentional weight loss of 15 lbs/7 Kg in the last 3-6 months? YES Bowels: regular Wound: clean AND dry Temperature: No Drains: No [facility] 10-14-2024 Telephone encounter Note Spoke with patient and recommended being evaluated in ED for urgent imaging. Patient will go to [facility]. Will look for imaging and ED report. [facility] 10-14-2024 Miscellaneous Notes Spoke with patient and recommended being evaluated in ED for urgent imaging. Patient will go to [facility]. Will look for imaging and ED report. documented in this encounter [facility] 10-10-2024 Instructions Sugey Allan [email or web address].[email or web address] - 10/10/2024 1:54 PM EST Call 911 right away if you or someone else has any of these stroke symptoms: Sudden numbness or weakness in the face, arm, or leg, especially on one side of the body. Sudden confusion, trouble speaking, slurred speech, or difficulty understanding speech. Sudden trouble seeing or double vision in one or both eyes. Sudden trouble walking, dizziness, loss of balance, or lack of coordination. Sudden severe headache, worst headache of life, often accompanied by neck stiffness and vomiting. documented in this encounter [facility] 10-08-2024 History of Present illness Narrative Images from the original note were not included. [facility] Post-Op Visit Omar Gomez CC#: [id number] Date of Service: 10/08/2024 Collaborating Physician: Dr. Chula Morton The patient was referred by Dr. Morton for opinion regarding recent sinus stenting. I will provide a written report of my findings to the referring through letter, e-communication, or epic. Subjective Chief Complaint: Intracranial stenosis (IIH) Omar Gomez is a 38 yof with PMH for migraine, HTN, PTSD, depression, obesity and IIH s/p right transverse sinus stent 10/2023. Patient originally presented to Dr. Morton's clinic on 06/12/24 r/t IIH dx in 2022 with evidence of papilledema, LP OP 33. Patient was initially treated with diamox but had significant side effects. Patient had MRV that showed left transverse sinus stenosis that was recommended for stenting. Angio for treatment on 08/08 showed evidence for left sided pressure gradient of 15 and 14 on the right with follow-up stenting of dominant right transverse sinus. She was discharged on POD 1 after uneventful hospital course. Patient is here for initial post operative visit. Interval History: Last seen: at discharge Symptoms: ER visit on 08/14/24 with c/o muffled hearing Similar sx previously occurred during migraine episodes Generally felt unwell Returned to ER on 08/24 with dx of ear infection and UTI Symptoms improving Feels like vision is improving Saw ophthalmology on 10/06- improvement in optic nerve edema Dull headaches have returned since about 3 weeks post op BP- been running better since ER visit AP/AC- Continuing aspirin, Ran out of Plavix on Sunday, was told her insurance wont cover it till next week Works- not currently working Lives- lives with and 2 kids Handed- right handed NEUS ENDOVASC ROS - See HPI Sugey Allan, DAIRY FEED WORKER.ARCHIVAL STUDIES PROFESSOR ACTIVE PROBLEM LIST Abdominal Pain, Right Lower Quadrant [facility] Pain Hypertension Pulmonary Nodule Palpitations Major Depressive Disorder Ptsd (Post-Traumatic Stress Disorder) Abdominal Pain Iih (Idiopathic Intracranial Hypertension) Obesity Due to Excess Calories Without Serious Comorbidity Migraine With Aura and Without Status Migrainosus, Not Intractable Idiopathic Intracranial Hypertension 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 PAST SURGICAL HISTORY Procedure Laterality Date CHOLECYSTECTOMY 2010 COLONOSCOPY FLX DX W/COLLJ SPEC WHEN PFRMD 07/29/2018 Colonoscopy ECTOPIC - TREATMENT 02/12/2023 ESOPHAGOGASTRODUODENOSCOPY TRANSORAL DIAGNOSTIC 07/29/2018 EGD MYRINGOTOMY ASPIR&/EUSTACHIAN TUBE NFLTJ ANES 08/31/2015 Myringotomy/tubes- right ear PAST SURGICAL HISTORY OF tubes in ears REPAIR UMBILICAL HERNIA 2011 UNSPECIFIED ORAL SURGERY PROCEDURE, BY REPORT 4 teeth pulled [facility] DELIVERY SCHEDULING ORDER Allergies: Tape [Adhesive Tape (Rosins)] Medications: Current Outpatient Medications Medication Sig acetaZOLAMIDE SR (DIAMOX SEQUELS) 500 mg capsule Take 1 capsule by mouth every evening. aspirin 325 mg tablet Take 1 tablet by mouth once daily. clopidogrel (PLAVIX) 75 mg tablet Take 1 tablet by mouth once daily. metFORMIN ER (GLUCOPHAGE XR) 500 mg 24 hr tablet Take 1 tablet by mouth daily with lunch for 7 days, THEN 1 tablet two times a day with meals. pantoprazole DR (PROTONIX) 40 mg tablet Take 1 tablet by mouth once daily. acetaminophen (TYLENOL) 500 mg tablet Take 2 tablets by mouth every 6 hours as needed for pain. methocarbamol (ROBAXIN) 500 mg tablet Take 1 tablet by mouth three times a day as needed (Headache). LORazepam (ATIVAN) 1 mg tablet Take 1 [...] in the MR contrast administration guidelines link. (Patient not taking: Reported on 07/25/2024) venlafaxine ER (EFFEXOR XR) 75 mg 24 hr capsule Take 1 capsule by mouth every afternoon. Miscellaneous Medical Supply (BLOOD PRESSURE CUFF) 1 Each once daily. Current Facility-Administered Medications Medication Dose Route Frequency tropicamide 1 % 1 Drop (MYDRIACYL) 1 Drop BOTH EYES As Directed PHENYLephrine 2.5 % 1 Drop (AK-DILATE, JACLYN-SYNEPHRINE) 1 Drop BOTH EYES As Directed fluorescein-benoxinate 0.3-0.4 % 1 Drop (FLURESS) 1 Drop BOTH EYES As Directed proparacaine 0.5 % 1 Drop (ALCAINE) 1 Drop BOTH EYES As Directed Social History Tobacco Use Smoking status: Never Smokeless tobacco: Never Vaping Use Vaping status: Never Used Substance Use Topics Alcohol use: Not Currently Drug use: No Objective Patient Entered Questionnaires 06/08/2024 Health Status Impact by Stroke or CVD Impact To a great extent 10/07/2024 Health Status Change Since Last Visit Change Minimally improved PROMIS/NeuroQoL Score Percentiles 10/07/2024 06/08/2024 Physical Health Physical Function Percentile 66 21* Sleep Percentile 7 1 Fatigue Percentile 1 0 Pain Interference Percentile 84 12 10/07/2024 06/08/2024 PROMIS SOCIAL ROLE SCORE Social Role Satisfaction Percentile 24* 31 10/07/2024 06/08/2024 Mental Health NeuroQol Cognitive Function Percentile 5 General Self-Efficacy Percentile 2 1 10/07/2024 06/08/2024 PROMIS Global Health Scale Physical Health Percentile 10 4 Mental Health Percentile 1 0 Percentiles provide an indication of how [...] Summary for PROMIS Physical Function T-score = 54 (Percentile 66) No difficulty - Do strenuous activities such as backpacking, skiing, playing tennis, bicycling, or jogging. No difficulty - Do heavy work around the house like scrubbing floors, or lifting or moving heavy furniture. Depression Screening 10/07/2024 06/08/2024 04/20/2016 PHQ-9 Score 22 22 18 Self-Harm Response Several days Several days PHQ-9 Scores: PHQ-9 Self-Harm (Item 9) Response: 0 - 9 No to Mild depression 0 - Not at all 10 - 14 Moderate depression 1 - Several Days > 15 Severe depression 2 - More than half the days 3 - Nearly every day 06/08/2024 Sleep Apnea Probability Score Probability (%) 21 (Sleep study not recommended) PHYSICAL EXAMINATION LMP 07/10/2024 (Approximate) Limited in setting of video visit General: Pleasant, well-developed, well-nourished, in no acute distress. HEENT: Normocephalic, atraumatic. Lungs: Respirations even and unlabored. Skin: No rash or ecchymoses visible. Neurological: Awake, alert, oriented to person, place, and time. Speech fluent, no dysarthria. Good attention and insight into illness. Cranial Nerves: Extraocular movements grossly intact. Facial movements appear normal and symmetric. Motor: Moves upper extremities freely. Reports well healed wrist and groin incision IMAGING 07/29/2024 IR angiogram: 1. Initial bilateral severe stenosis of both transverse-sigmoid junctions. 2. Pressure gradient of 15 mmHg was recorded on the left side and of 14 mmHg recorded on the right side. 3. Successful transvenous stenting across the stenotic segment and balloon angioplasty, with no residual stenosis of the dominant right transverse sinus. 06/12/2024 IR LP: Opening pressure was recorded at 22 cm H2O. Closing pressure was recorded at 17 cm H2O (patient could no longer tolerate the procedure 05/15/2024 MRV brain: Suspect mild segmental stenosis of the left transverse sinus, similar to MRV of 04/26/2023. Unremarkable remaining intracranial MRV. Incidental partially empty sella. 04/26/2023 MRI/MRV brain w/o: Partial empty sella, prominent bilateral Meckel's caves, mildly tortuous and prominent bilateral optic nerve sheaths with mildly stenotic left distal transvenous venous sinus, which may be seen in the setting of intracranial hypertension in the appropriate clinical setting. LABS Latest Ref Rng 07/29/2024 ADP Max Aggreg 65 - 93 % Max 44 (L) Arach Max Aggreg 75 - 100 % Max 12 (L) Legend: (L) Low IMPRESSION Omar Gomez is a 38 yof with PMH for migraine, HTN, PTSD, depression, obesity and IIH s/p right transverse sinus stent 10/2023. AND PLAN Symptomatic IIH with noted b/l transverse sinus stenosis s/p right stent Reviewed patient's hospital and post operative course. Reviewed s/s that would necessitate emergent evaluation Patient to continue DAPT x3 months, end date 10/22/2024, then aspirin 81 mg monotherapy until evaluation in January. Patient current off plavix approximately 10 weeks postop. Recommend resuming plavix desean. Will look into insurance issue Called [facility] who stated that fill was too soon after recent script was sent to alternative pharmacy. Called mailed delivery pharmacy who verified they could not cancel script as the medication was delivered to patient's mailbox the day before. Called to notify patient who verified it has been a couple days since she had checked her mailbox. She is instructed to check and restart today if received. Patient to let us know if medication has not been delivered. She agrees. Recommend further surveillance with MRV @ 6 months, if any change in symptoms may need to assess more urgently for in stent stenosis considering brief lapse of DAPT. Sent future message to November to scheduling team. Recommend consult w/headache neurology for further evaluation of ongoing symptoms. Will send phone number via [employer] for scheduling. Continue to f/up with ophthalmology as recommended. I spent a total of 30 minutes on the date of the service which included preparing to see the patient, [id number] patient care, completing clinical documentation, obtaining and/or reviewing separately obtained history, performing a medically appropriate examination, counseling and educating the patient/family/caregiver, ordering medications, tests, or procedures, communicating with other HCPs (not separately reported), independently interpreting results (not separately reported), communicating results to the patient/family/caregiver, and care coordination (not separately reported). SIGNATURE Sugey Allan APRN.ARCHIVAL STUDIES PROFESSOR 10/08/2024 CC Chula Morton MD documented in this encounter [facility] 10-08-2024 Note HNO ID: [id number] Author: SUGEY ALLAN APRN.ARCHIVAL STUDIES PROFESSOR Service: ? Author Type: Nurse Practitioner Type: Progress Notes Filed: 10/10/2024 14:12 Note Text: [facility] Post-Op Visit Omar Gomez [facility]#: [id number] Date of Service: 10/08/2024 Collaborating Physician: Dr. Chula Morton The patient was referred by Dr. Morton for opinion regarding recent sinus stenting. I will provide a written report of my findings to the referring through letter, e-communication, or epic. Subjective Chief Complaint: Intracranial stenosis (IIH) Omar Gomez is a 38 yof with PMH for migraine, HTN, PTSD, depression, obesity and IIH s/p right transverse sinus stent 10/2023. Patient originally presented to Dr. Morton's clinic on 06/12/24 r/t IIH dx in 2022 with evidence of papilledema, LP OP 33. Patient was initially treated with diamox but had significant side effects. Patient had MRV that showed left transverse sinus stenosis that was recommended for stenting. Angio for treatment on 08/08 showed evidence for left sided pressure gradient of 15 and 14 on the right with follow-up stenting of dominant right transverse sinus. She was discharged on POD 1 after uneventful hospital course. Patient is here for initial post operative visit. Interval History: Last seen: at discharge Symptoms: ER visit on 08/14/24 with c/o muffled hearing Similar sx previously occurred during migraine episodes Generally felt unwell Returned to ER on 08/24 with dx of ear infection and UTI Symptoms improving Feels like vision is improving Saw ophthalmology on 10/06- improvement in optic nerve edema Dull headaches have returned since about 3 weeks post op BP- been running better since ER visit AP/AC- Continuing aspirin, Ran out of Plavix on Sunday, was told her insurance wont cover it till next week Works- not currently working Lives- lives with and 2 kids Handed- right handed NEUS ENDOVASC ROS - See HPI Sugey Allan, DAIRY FEED WORKER.ARCHIVAL STUDIES PROFESSOR ACTIVE PROBLEM LIST Abdominal Pain, Right Lower Quadrant [facility] Pain Hypertension Pulmonary Nodule Palpitations Major Depressive Disorder Ptsd (Post-Traumatic Stress Disorder) Abdominal Pain Iih (Idiopathic Intracranial Hypertension) Obesity Due to Excess Calories Without Serious Comorbidity Migraine With Aura and Without Status Migrainosus, Not Intractable Idiopathic Intracranial Hypertension 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 PAST SURGICAL HISTORY Procedure Laterality Date CHOLECYSTECTOMY 2010 COLONOSCOPY FLX DX W/COLLJ SPEC WHEN PFRMD 07/29/2018 Colonoscopy ECTOPIC - TREATMENT 02/12/2023 ESOPHAGOGASTRODUODENOSCOPY TRANSORAL DIAGNOSTIC 07/29/2018 EGD MYRINGOTOMY ASPIRAND/EUSTACHIAN TUBE NFLTJ ANES 08/31/2015 Myringotomy/tubes- right ear PAST SURGICAL HISTORY OF tubes in ears REPAIR UMBILICAL HERNIA 2011 UNSPECIFIED ORAL SURGERY PROCEDURE, BY REPORT 4 teeth pulled [facility] DELIVERY SCHEDULING ORDER Allergies: Tape [Adhesive Tape (Rosins)] Medications: Current Outpatient Medications Medication Sig acetaZOLAMIDE SR (DIAMOX SEQUELS) 500 mg capsule Take 1 capsule by mouth every evening. aspirin 325 mg tablet Take 1 tablet by mouth once daily. clopidogrel (PLAVIX) 75 mg tablet Take 1 tablet by mouth once daily. metFORMIN ER (GLUCOPHAGE XR) 500 mg 24 hr tablet Take 1 tablet by mouth daily with lunch for 7 days, THEN 1 tablet two times a day with meals. pantoprazole DR (PROTONIX) 40 mg tablet Take 1 tablet by mouth once daily. acetaminophen (TYLENOL) 500 mg tablet Take 2 tablets by mouth every 6 hours as needed for pain. methocarbamol (ROBAXIN) 500 mg tablet Take 1 tablet by mouth three times a day as needed (Headache). LORazepam (ATIVAN) 1 mg tablet Take 1 [...] in the MR contrast administration guidelines link. (Patient not taking: Reported on 07/25/2024) venlafaxine ER (EFFEXOR XR) 75 mg 24 hr capsule Take 1 capsule by mouth every afternoon. Miscellaneous Medical Supply (BLOOD PRESSURE CUFF) 1 Each once daily. Current Facility-Administered Medications Medication Dose Route Frequency tropicamide 1 % 1 Drop (MYDRIACYL) 1 Drop BOTH EYES As Directed PHENYLephrine 2.5 % 1 Drop (AK-DILATE, JACLYN-SYNEPHRINE) 1 Drop BOTH EYES As Directed fluorescein-benoxinate 0.3-0.4 % 1 Drop (FLURESS) 1 Drop BOTH EYES As Directed proparacaine 0.5 % 1 Drop (ALCAIN (more content not included)... [facility] 10-08-2024 Note HNO ID: [id number] Author: SUE MEAD LISW Service: ? Author Type: Bread Pan Greaser Type: Progress Notes Filed: 10/08/2024 11:48 Note Text: SOCIAL WORK DISTRESS ASSESSMENT Omar appeared on the PRO report due to high distress (PHQ-9 score 22) with a positive question 9 indicating suicidal ideation. Attempted to contact Omar today for distress assessment. Unable to reach Omar. Left message with contact information. Will make a second attempt to reach Omar. Please contact with further questions or concerns. Unable To Reach Patient MACY Reaves-Demetri PRN Bread Pan Greaser Covering [facility] Neuro Outpatient [facility] 10-06-2024 Telephone encounter Note Received message from Dr Colón that patient is not taking aspirin and plavix states that she is out of medication. Followed up with patient that she had medication sent to [facility] per request 2 weeks ago, patient states she lives near [place] not this pharmacy. New orders placed for HAYDEE to sign now. Reviewed instructions to stop plavix when prescription is complete, continue aspirin until December [facility] 10-06-2024 Miscellaneous Notes Received message from Dr Colón that patient is not taking aspirin and plavix states that she is out of medication. Followed up with patient that she had medication sent to [facility] per request 2 weeks ago, patient states she lives near [place] not this pharmacy. New orders placed for HAYDEE to sign now. Reviewed instructions to stop plavix when prescription is complete, continue aspirin until December documented in this encounter [facility] 10-06-2024 Note Date of Procedure 10/06/2024. Organic Chemistry Teacher Information Rate Analyst: EVIE. Start time: 11:09 AM. Stop time: 11:21 AM. Patient IS allergic to adhesive bandages. Non adhesive bandage was used. . Reliability Right Eye Good. Left Eye Good. Interpretation Right Eye Normal. Left Eye Enlarged Blind Spot, Non-specific defect. Interval Change Right Eye Better. Left Eye Better. [facility] 10-06-2024 Note Date of Procedure 10/06/2024. Organic Chemistry Teacher Information Rate Analyst: SB. Start time: 11:31 AM. Quality Right Eye Good. Left Eye Good. NFL Interpretation Right Eye Normal. Left Eye RNFL Thickening. Ganglion Cell Layer Thickness Right Eye Normal. Left Eye Normal. Interval Change Right Eye Stable. Left Eye Better. Notes Minimal residual peripapillary retinal nerve fiber layer rim elevation [facility] 10-06-2024 Note Date of Procedure 10/06/2024. Organic Chemistry Teacher Information Rate Analyst: SB. Start time: 11:31 AM. Interval Change Right Eye Better. Left Eye Better. Notes Minimal residual optic disc elevation both eyes [facility] 10-06-2024 Note HNO ID: [id number] Author: MIKAEL COLÓN MD Service: ? Author Type: Physician Type: Progress Notes Filed: 10/06/2024 13:41 Note Text: Omar Serrano is a 38 year old right-handed woman who returns for recurrent idiopathic intracranial hypertension (IIH) s/p stenting and angioplasty of the right transverse-sigmoid junction (Dr. Morton, 07/29/24) . At initial consultation on March 26, 2024, [...] she has recurrent rhinorrhea to exclude csf. At her 05/20 virtual visit she reported doing well as she had been able to get increased sleep while not currently working. She saw her primary eye doctor Dr. 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 She was still experiencing some paresthesias on the reduced diamox dose of 1G twice a day - intermittently present for example when cold. She still reported bilateral pulsatile tinnitus. The headaches had decreased in frequency and severity - with positional worsening reported though fortunately not waking her up overnight. She denied transient visual obscurations or nidhi binocular diplopia. Since she had been doing well on that dose with unremarkable repeat BMP at last visit I had her remain on that dosing for the time being with refill sent to her pharmacy on file. MRV of the brain with and without contrast did not reveal an alternative structural etiology underlying the patient's symptoms with only subtle suggestion of intracranial hypertension - with left transverse venous sinus stenosis again noted. Images were reviewed with the patient in detail. I reached out to my colleagues in neurosurgery and NeuroIR regarding next steps. Neurosurgery requested repeat lumbar puncture on which the openin (more content not included)... [facility] 10-06-2024 History of Present illness Narrative Omar Serrano is a 38 year old right-handed woman who returns for recurrent idiopathic intracranial hypertension (IIH) s/p stenting and angioplasty of the right transverse-sigmoid junction (Dr. Morton, 07/29/24) . At initial consultation on March 26, 2024, [...] she has recurrent rhinorrhea to exclude csf. At her 05/20 virtual visit she reported doing well as she had been able to get increased sleep while not currently working. She saw her primary eye doctor Dr. 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 She was still experiencing some paresthesias on the reduced diamox dose of 1G twice a day - intermittently present for example when cold. She still reported bilateral pulsatile tinnitus. The headaches had decreased in frequency and severity - with positional worsening reported though fortunately not waking her up overnight. She denied transient visual obscurations or nidhi binocular diplopia. Since she had been doing well on that dose with unremarkable repeat BMP at last visit I had her remain on that dosing for the time being with refill sent to her pharmacy on file. MRV of the brain with and without contrast did not reveal an alternative structural etiology underlying the patient's symptoms with only subtle suggestion of intracranial hypertension - with left transverse venous sinus stenosis again noted. Images were reviewed with the patient in detail. I reached out to my colleagues in neurosurgery and NeuroIR regarding next steps. Neurosurgery requested repeat lumbar puncture on which the opening pressure was recorded at 22 cm H2O. At her 07/02/2024 return visit she reported no change in vision since last visit, as well as no transient visual obscurations nor binocular diplopia. She did report intermittent blurred vision that improved with blinking -- artificial tears were not being used. She additionally reported persistent bilateral pulsatile tinnitus. She had experienced headaches in the post-LP setting. She was decreased to diamox 500 mg twice a day which she was tolerating - only with paresthesias when cold. Her repeat exam showed improvement in the best corrected visual acuity on the left, with residual blind spot enlargement on the left visual field, and otherwise good afferent visual pathway function both eyes. Her optic disc edema had decreased as compared to the March exam. She was pending cerebral angiogram with NeuroIR on 07/29 with potential stenting if indicated at that time. I placed a repeat BMP with results to be communicated via [employer] though it was evidently cancelled. She noted having recurrent nephrolithiasis with ongoing discomfort so I advised ER presentation and placed a urology consult request. 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 Morton on 07/29/24. They were not as severe as they were prior to stenting. The vision had seemingly remained improved since stenting. She denied new vision loss, diplopia, and transient visual obscurations. She had been off of the diamox since July as she was never instructed to resume diamox post procedure. She also took her last dose of plavix and aspirin 10/05. She additionally reported an episode of significant dizziness that required ED visit. She was also working with a keno writer to discuss weight loss since she had regained what she lost previously. Today's repeat exam showed stable afferent visual pathway function with if anything improvement in her bilateral visual carson that were essentially full today with only nonspecific areas of decreased sensitivity remaining. There was decreased optic nerve edema in both eyes - with only fullness on the right and at most grade 1 on the left. Given her residual headaches and pulsatile tinnitus, she was interested in resuming a small dose of diamox nightly (500 mg). I asked her to please update me in a few weeks via [employer] as to how she was doing on the diamox. I reached out to Dr. Morton's team to reschedule her follow up along with medication clarification. I will plan to see her back in 4-5 months, unless concerns arise in the interim, for which she was provided my contact information and encouraged to reach out. ER presentation is otherwise advised for any acute onset neurological deficits. I have confirmed and edited as necessary the relevant ophthalmic history, ROS, and the neuro exam findings as obtained by others. I have seen and examined Omar Gomez. I have discussed the case and the management of this patient's care with the resident, if applicable. I also have reviewed and agree with the assessment and plan as stated above and agree with all of its relevant components. Mikael Colón MD 1:40 PM 10/06/2024 FOR ADMINISTRATIVE PURPOSES ONLY: My impression of this case is based upon an assessment of the patient's subacute on chronic problems listed above that pose a threat to visual and neurologic function. 44 minutes were spent on total patient care on the day of service that includes both jhyk-vk-pffo and kqe-kugn-ec-face time. This time was separate from any [...] applicable), 5 communicating results to the patient/family, 10 minutes counseling / educating the patient, 5 minutes documenting clinical information into the electronic health record of the patient, 2 minutes ordering tests/medications/procedures, and 7 minutes coordinating care for the patient. I communicated with Dr. Morton regarding the management of this patient. The assessment and plan were discussed extensively with the patient who was amenable and voiced understanding. documented in this encounter [facility] 10-02-2024 Telephone encounter Note Appointments scheduled: 3-month with Rylee Gregory on 01/03/2025 and 6-month with Dr Campo on 05/04/2025. Thank you, Divya Gunderson [facility] 10-02-2024 Miscellaneous Notes Appointments scheduled: 3-month with Rylee Gregory on 01/03/2025 and 6-month with Dr Campo on 05/04/2025. Thank you, Divya Gunderson Last read by Omar Gomez at 2:02 PM on 09/26/2024. Nitza Arreola 1st attempt Mc sent [employer] in [address] Campo in 6 months, needs to see dietary and exercise physiology- and general surg documented in this encounter [facility] 09-30-2024 Telephone encounter Note Duplicate order from Sunday [facility] 09-30-2024 Miscellaneous Notes Duplicate order from Sunday documented in this encounter [facility] 09-29-2024 Telephone encounter Note Last read by Omar Gomez at 2:02 PM on 09/26/2024. Nitza Arreola [facility] 09-26-2024 Telephone encounter Note Refill request pended to HAYDEE for signature for updated pharmacy [facility] 09-26-2024 Miscellaneous Notes Refill request pended to HAYDEE for signature for updated pharmacy CV PHONE Name of caller : Olga Relationship to patient : Provider If not self Will need patient permission to release results or disclose health information with called documented in fyi. Patient identified by Name and Date of . ( Omar Gomez, 1985). Yes Number to return call [phone] Reason for Call: Olga is calling from [facility] regarding refills for Plavix 75mg and Aspirin 325 mg. Please call to verify prescriptions for refills. P.S Patient missed her Post Op with Meena Mikula. Caller was requested a refill from Meena. Sent to provider pool to forward for review. Thank you calling [facility]. You will receive a return call within 48 hours ( or 2 business days if close to the weekend). If you feel that this is an urgent issue and needs immediate attention, it is recommended that you contact your primary care provider office or proceed to your nearest Urgent Care Center of Emergency Room ED for evaluation/treatment. documented in this encounter [facility] 09-26-2024 Telephone encounter Note CV PHONE Name of caller : Olga Relationship to patient : Provider If not self Will need patient permission to release results or disclose health information with called documented in fyi. Patient identified by Name and Date of . ( Omar Gomez, 1985). Yes Number to return call [phone] Reason for Call: Olga is calling from [facility] regarding refills for Plavix 75mg and Aspirin 325 mg. Please call to verify prescriptions for refills. P.S Patient missed her Post Op with Meena Mikula. Caller was requested a refill from [facility]. Sent to provider pool to forward for review. Thank you calling [facility]. You will receive a return call within 48 hours ( or 2 business days if close to the weekend). If you feel that this is an urgent issue and needs immediate attention, it is recommended that you contact your primary care provider office or proceed to your nearest Urgent Care Center of Emergency Room ED for evaluation/treatment. [facility] 09-26-2024 Telephone encounter Note 1st attempt Mc sent [employer] in [address] Campo in 6 months, needs to see dietary and exercise physiology- and general surg [facility] Work Phone: 09-26-2024 Instructions Rhianna Campo MD - 09/26/2024 1:36 PM EST try Intermittent fasting as discussed- eat from Noon to 8 pm- 2 meals + 2 snacks Intermittent fasting : eat from Noon to 8 pm - 12 pm: lunch - 30 gms of protein - 3 pm: snack 1- 15 gms of protein - 5 pm: snack 2- 15 gms of protein - 7-8 pm: dinner - 30 gms of protein Target lean protein intake at 90-100 gm / day- divided into 30 gm with each meal/ snack - always paired with a fibre ( fruit or vegetable or whole grains) - the proteins should be lean- so egg white, white meat chicken or turkey , or vegan proteins like beans/ lentils/ legumes/ tofu / chick peas- Breakfast protein options: cottage cheese , burkinan yogurt, eggs or egg whites , organic crunchy peanut butter( max of 2 tablespoons) - limit protein servings to 30 to 35 gms with each meal Lunch and Dinner protein options : 4 oz fish/ chicken/ turkey , vegan protein: hummus, beans, chick peas, tofu add a Probiotic- PB8 - BUY FROM [employer]: helps with healthy gut microbiome, helps with healthy weight and optimal cardiac health . ------- Chair exercises 3/ week- You tube videdos add resistance training 2/ week ( upper body and lower body )- 10 min sessions on You tube videos documented in this encounter [facility] 09-26-2024 Note HNO ID: [id number] Author: RHIANNA CAMPO MD Service: ? Author Type: Physician Type: Progress Notes Filed: 09/26/2024 13:50 Note Text: [facility] This visit was conducted as a virtual visit. REASON OF VISIT: weight management/obesity and management of its comorbidities REFERRING PHYSICIAN: AURELIA Elizabeth Consultation requested for an opinion regarding Weight Mangement , and my final recommendations will be communicated back to the requesting physician by way of shared medical record or letter via US mail. HISTORY OF PRESENT ILLNESS: Age: [age] year old with Class II Obesity , h/o IIH since 2014- underwent a cerebral angiogram with stenting and angioplasty of right transverse-sigmoid junction on July 29, 2024- on Plavix, Depression- on the SSRI , h/o Lt ? Ovarian cancer ' 2021 - s/p tumor resection - Dr Ferguson , Disordered eating - very restrictive with food intake , H/O Umbilical hernia repair - with recurrence in her abd pain : Patient comes today for follow up of weight management. Weight History - High school graduation weight : 127 pounds - started to gain weight after 2 pregnancies in her 20's then the diagnosis of IIH in 2014 really impacted her weight , she also admits to have a lot of surgical procedures - like Lap jj, 2 C- sections, ectopic , Umbilical hernia - all of which might have impacted her weight - F/H of Obesity : no - Height : 5'6 Goals for weight loss : closer to 160 pounds Discussed disease centric goals : 5% TWL: Quality of life improvement, joint pain reduction, 10% TWL: JAMAR/ Fatty liver risk reduction, >15% CVD and mortality risk reduction - pt aware Weight Loss Medications: -- has previously lost weight when her IIH seemed to resolve in 2018- then seemed to gain weight again when her IIH recurred since last year - never tried AOM's - no h/o prior Pancreatitis/ MEN Type 2/ personal or f/h of Medullary thyroid cancer Diet: -- 24 hr food recall: B: no food L: no food D: 8 pm: pizza - 2 slices - pepperoni , water S: no food - lives with her and her 2 kids ( 14 yrs, 11 yrs ) - In a typical week: eats out/ take out : 1 meal / week Appetite Control: -- most days she skips her meals till dinner time as she is afraid to eat currently , worried about weight gain - binge eating: yes- 1/ week, triggered by stress - late night eating: no - emotional eating : yes - higher cravings for salty foods - portion control: smaller Exercise: -- [place] - more sedentary in the winter months - has LBP which can limit her mobility Sleep: -- Sleep initiation: delayed - Sleep maintenance : interrupted - not always by nocturia , some snoring - wakes up - tired Stress: -- taking a SNRI -having some marital issues - has been very challenging for her - seeing a Psych counselor- weekly, 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 clopidogrel (PLAVIX) 75 mg tablet Take 2 tablets by mouth once daily for 14 days, THEN 1 tablet once daily. acetaminophen (TYLENOL) 500 mg tablet Take 2 tablets by mouth every 6 hours as needed for pain. methocarbamol (ROBAXIN) 500 mg tablet Take 1 tablet by mouth three times a day as needed (Headache). aspirin 325 mg tablet Take 1 tablet by mouth once daily. LORazepam (ATIVAN) 1 mg tablet Take 1 [...] in the MR contrast administration guidelines link. (Patient not taking: Reported on 07/25/2024) venlafaxine ER (EFFEXOR XR) 75 mg 24 hr capsule Take 1 capsule by mouth every afternoon. Miscellaneous Medical Supply (BLOOD PRESSURE CUFF) 1 Each once daily. No current facility-administered medications on file prior to visit. SIGNIFICANT PAST MEDICAL HISTORY, SOCIAL HISTORY AND FAMILY HISTORY: PAST MEDICAL HISTORY Diagnosis Date Adjustment disorder with depressed mood Ectopic 12/2022 IIH (idio (more content not included)... [facility] 09-26-2024 History of Present illness Narrative Images from the original note were not included. [facility] This visit was conducted as a virtual visit. REASON OF VISIT: weight management/obesity and management of its comorbidities REFERRING PHYSICIAN: AURELIA Elizabeth Consultation requested for an opinion regarding Weight Mangement , and my final recommendations will be communicated back to the requesting physician by way of shared medical record or letter via US mail. HISTORY OF PRESENT ILLNESS: Age: [age] year old with Class II Obesity , h/o IIH since 2014- underwent a cerebral angiogram with stenting and angioplasty of right transverse-sigmoid junction on July 29, 2024- on Plavix, Depression- on the SSRI , h/o Lt ? Ovarian cancer ' 2021 - s/p tumor resection - Dr Ferguson , Disordered eating - very restrictive with food intake , H/O Umbilical hernia repair - with recurrence in her abd pain : Patient comes today for follow up of weight management. Weight History - High school graduation weight : 127 pounds - started to gain weight after 2 pregnancies in her 20's then the diagnosis of IIH in 2014 really impacted her weight , she also admits to have a lot of surgical procedures - like Lap jj, 2 C- sections, ectopic , Umbilical hernia - all of which might have impacted her weight - F/H of Obesity : no - Height : 5'6 Goals for weight loss : closer to 160 pounds Discussed disease centric goals : 5% TWL: Quality of life improvement, joint pain reduction, 10% TWL: JAMAR/ Fatty liver risk reduction, >15% CVD and mortality risk reduction - pt aware Weight Loss Medications: -- has previously lost weight when her IIH seemed to resolve in 2018- then seemed to gain weight again when her IIH recurred since last year - never tried AOM's - no h/o prior Pancreatitis/ MEN Type 2/ personal or f/h of Medullary thyroid cancer Diet: -- 24 hr food recall: B: no food L: no food D: 8 pm: pizza - 2 slices - pepperoni , water S: no food - lives with her and her 2 kids ( 14 yrs, 11 yrs ) - In a typical week: eats out/ take out : 1 meal / week Appetite Control: -- most days she skips her meals till dinner time as she is afraid to eat currently , worried about weight gain - binge eating: yes- 1/ week, triggered by stress - late night eating: no - emotional eating : yes - higher cravings for salty foods - portion control: smaller Exercise: -- walks [place] the farm in the summer - more sedentary in the winter months - has LBP which can limit her mobility Sleep: -- Sleep initiation: delayed - Sleep maintenance : interrupted - not always by nocturia , some snoring - wakes up - tired Stress: -- taking a SNRI -having some marital issues - has been very challenging for her - seeing a Psych counselor- weekly, 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 clopidogrel (PLAVIX) 75 mg tablet Take 2 tablets by mouth once daily for 14 days, THEN 1 tablet once daily. acetaminophen (TYLENOL) 500 mg tablet Take 2 tablets by mouth every 6 hours as needed for pain. methocarbamol (ROBAXIN) 500 mg tablet Take 1 tablet by mouth three times a day as needed (Headache). aspirin 325 mg tablet Take 1 tablet by mouth once daily. LORazepam (ATIVAN) 1 mg tablet Take 1 [...] in the MR contrast administration guidelines link. (Patient not taking: Reported on 07/25/2024) venlafaxine ER (EFFEXOR XR) 75 mg 24 hr capsule Take 1 capsule by mouth every afternoon. Miscellaneous Medical Supply (BLOOD PRESSURE CUFF) 1 Each once daily. No current facility-administered medications on file prior to visit. 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 Vital Signs Ht 167.6 cm (5' 6) Wt 108.9 kg (240 lb) LMP 07/10/2024 (Approximate) BMI 38.74 kg/m General: no acute distress, feeling well Eyes: no exophthalmia, no lig lag, extraocular movements intact. No redness. Thyroid: not visibly enlarged Heart: no chest pain Chest: Breathing comfortably Abdomen: feels she is tender around the umbilical hernia site repair Psychiatry: affect is normal Neurologic: alert and oriented to time, space and place PERTINENT LABORATORY AND IMAGING:All pertinent laboratory results were reviewed. Please see HPI for further details. IMPRESSION/PLAN: Encounter Diagnosis ICD-10-CM 1. Central adiposity E65 2. IIH (idiopathic intracranial hypertension) G93.2 3. Episode of recurrent major depressive disorder, unspecified depression episode severity (HCC) F33.9 4. Palpitations R00.2 5. BMI 38.0-38.9,adult Z68.38 6. Disordered eating 7. Sleep disturbance 8. Umbilical hernia Patient comes today for evaluation and weight management and its comorbidities. Patient has a BMI of 38.74 that is OBESITY CLASS II . Patient tried different weight loss modalities in the past including diet and exercise . Pertinent comorbidities include Class II Obesity , h/o IIH since 2014- underwent a cerebral angiogram with stenting and angioplasty of right transverse-sigmoid junction on July 29, 2024- on Plavix, Depression- on the SSRI , h/o Lt ? Ovarian cancer ' 2021 - s/p tumor resection - Dr Ferguson , Disordered eating - very restrictive with food intake , H/O Umbilical hernia repair - with recurrence in her abd pain . Patient quality of life is compromised due to current weight and patient is motivated for weight loss. The main risk factors for current weight include increased consumption of high calorie/process foods, irregular eating patterns, suboptimal physical activity. Our goal is to treat obesity to decrease long-term medical complications, comorbidities and improve lifestyle. I discussed with the patient the possibility of starting an interdisciplinary lifestyle intervention-weight loss program involving improvement of the patient's diet, a personalized exercise program and also consider the possibility of using medications to control patient appetite in order to help patient to lose weight. Patient is in agreement. Plan -- Reviewed principles of energy metabolism, caloric intake and expenditure -- Goals: -- 5-10% weight loss over 6 months is reasonable -- At least 6-month commitment to losing weight -- Lifestyle changes -- Changing eating, sleeping and behavior habits -- Diet -- to see dietitian to discuss nutrition and behavior changes -- Patient will discuss in detail with our dietitian team the best approach and the best nutritional plan -- portion control -- behavior changes -- Appetite control: -- I have also reviewed with the patient the possibility of using weight loss medications in an effort to reduce his appetite. -- I have reviewed the different therapeutic options available including phentermine, phentermine/topiramate, buproprion/naltrexone, and the GLP1 , GLP 1/GIP agonists -- once she is eating more consistently - can add Metformin ER - add Metformin ER 500 mg po q day with food for 7 days then 1 gm po q day with meals - hold off on GLP 1 's for now till she has had a Gen surg opinion for her Abdominal umbilical hernia ?recurrence- ref ord'd - try Intermittent fasting as discussed- eat from Noon to 8 pm- 2 meals + 2 snacks - eat intentionally, avoid skipping meals - advised to avoid processed and ultra processed meals - avoid sugar free foods/ avoid artificial sweeteners - pt aware - Target lean protein intake at 90-100 gm / day- divided into 30 gm with each meal/ snack - always paired with a fibre ( fruit or vegetable or whole grains) - the proteins should be lean- so egg white, white meat chicken or turkey , or vegan proteins like beans/ lentils/ legumes/ tofu / chick peas - Chair exercises 3/ week- You tube videdos add resistance training 2/ week ( upper body and lower body )- 10 min sessions on You tube videos - - HST to r/o JAMAR ord'd \ - add a Probiotic: helps with healthy gut microbiome, helps with healthy weight and optimal cardiac health . -- Exercise -- discussed basic exercise recommendations, the role of exercise on weight loss and maintenance. Discussed the combination of aerobic and resistance exercise. -- most patients benefit from a personalized exercise program if they are in agreement -- Sleep: -- discussed the importance of sleep hygiene -- Stress: -- discussed the effect of stress and its relationship with weight gain. Stress management is very important -- Follow up: -- q 3 months I have reviewed the ROS/Questionnaire with patient and recommend the following: Follow-up with PCP for chronic health issues and preventive health screenings. All questions answered today. I have communicated my name and active licensure. The patient's identity and physical location were verified at the time of this visit. Either the patient or their legal help desk representative has been informed of the risks and benefits of -- and alternatives to -- treatment through a remote evaluation and consents to proceed with the evaluation remotely. Rhianna Campo MD Obesity Medicine Endocrinology and Metabolism [place] [facility] documented in this encounter [facility] 09-22-2024 Note Exam Date Time Procedure Performing Provider Status 09/22/24 10:53 AM US Pelvis Non-OB W/Transvaginal SINAI MORRELL MD; Auth (Verified) [id number] ORIGINAL EXAMINATION: Ultrasound pelvis, 09/22/2024 10:57 am transabdominal and transvaginal COMPARISON: Ultrasound 05/29/[address] 09/19/2024 TECHNIQUE: This report is based on interpretation of permanently recorded ultrasound images. HISTORY: ORDERING SYSTEM PROVIDED HISTORY: Reason for Exam: NEOPLASM OF UNCERTAIN BEHAVIOR OF LEFT OVARY, given history of tumor of the left ovary, patient is off and on left-sided lower quadrant pain, previous history of pelvic surgery FINDINGS: The uterus is 12.4 x 6.5 x 4.7 cm. In the posterior uterus there is a subserosal smaller hypoechoic lesion of 2.3 cm. There is an adjacent intramural posterior uterine lesion of 3.1 cm. These are both statistically likely to be fibroids although ultrasound cannot be histologically specific. The endometrium is 7.7 mm double wall thickness transvaginally which is normal. There are small nabothian cyst in the cervix.. Right ovary: 4.2 x 3.7 x 3.0 cm. There is a 2.5 cm cyst in the ovary with minimal low level internal echoes but no other complex features. There is blood flow in the adjacent ovary. Left ovary: 2.8 x 3.4 x 3.0 cm. This is unremarkable in appearance with no obvious mass. There is blood flow in the ovary. No pelvic free fluid. IMPRESSION: Minimally complex right ovarian cystic lesion is strongly favored to be a hemorrhagic follicle. No follow-up is indicated in a patient of this age. The left ovary appears normal. There are 2 uterine fibroids as described. Interpreted by: Sinai Morrell MD Preliminary Report By: Sinai Morrell MD Electronically signed By Sinai Morrell MD Dictated Date: 09/22/2024 4:27:33 PM Prelim Date: 09/22/2024 4:32:39 PM Sign Date: 09/22/2024 4:32:39 PM [facility]. MICRO - Microbiology PROCEDURE: Urine Culture [*1] SOURCE: Urine BODY SITE: COLLECTED DATE/TIME: 09/19/2024 19:17 EST RECEIVED DATE/TIME: 09/20/2024 11:44 EST START DATE/TIME: 09/20/2024 11:44 EST FREE TEXT SOURCE: FINAL REPORTS Final Report [] Verified Date/Time/Personnel: 09/22/2024 07:51 EST No growth at 48 hours. PRELIMINARY REPORTS Preliminary Report [] Verified Date/Time/Personnel: 09/21/2024 08:59 EST No growth to date Performing Locations *1: This test was performed at: [facility], [address] [address], [phone] , [facility]01-10-2025 Hospital Discharge instructions Patient Education 09/19/2024 20:58:52 Bladder Infection, Female (Adult) Bladder Infection, Female (Adult) Urine is normally doesn't have any bacteria in it. But bacteria can get into the urinary tract fromthe skin around the rectum. Or they can travel in the blood from elsewhere in the body. Once they are in your urinary tract, they can cause infection in the urethra (urethritis), the bladder (cystitis), or the kidneys (pyelonephritis). The most common place for an infection is in the bladder. This is called a bladder infection. This is one of the most common infections in women. Most bladder infections are easily treated. They are not serious unless the infection spreads to the kidney. The phrases bladder infection, UTI, and cystitis are often used to describe the same thing. But they are not always the same. Cystitis is an inflammation of the bladder. The most common cause of cystitis is an infection. Symptoms The infection causes inflammation in the urethra and bladder. This causes many of the symptoms. Themost common symptoms of a bladder infection are: Pain or burning when urinating Having to urinate more often than usual Urgent need to urinate Only a small amount of urine comes out Blood in urine Abdominal discomfort. This is usually in the lower abdomen above the pubic bone. Cloudy urine Strong- or bad-smelling urine Unable to urinate (urinary retention) Unable to hold urine in (urinary incontinence) Fever Loss of appetite Confusion (in older adults) Causes Bladder infections are not contagious. You can't get one from someone else, from a toilet seat, or from sharing a bath. The most common cause of bladder infections is bacteria from the bowels. The bacteria get onto the skin around the opening of the urethra. From there, they can get into the urine and travel up to thebladder, causing inflammation and infection. This usually happens because of: Wiping improperly after urinating. Always wipe from front to back. Bowel incontinence Procedures such as having a catheter inserted Older age Not emptying your bladder. This can allow bacteria a chance to grow in your urine. Dehydration Constipation Sex Use of a diaphragm for control Treatment Bladder infections are diagnosed by a urine test. They are treated with antibiotics and usually clear up quickly without complications. Treatment helps prevent a more serious kidney infection. Medicines Medicines can help in the treatment of a bladder infection: Take antibiotics until they are used up, even if you feel better. It is important to finish them tomake sure the infection has cleared. You can use acetaminophen or ibuprofen for pain, fever, or discomfort, unless another medicine was prescribed. If you have chronic liver or kidney disease, talk with your healthcare provider before using these medicines. Also talk with your provider if you've ever had a stomach ulcer or gastrointestinal bleeding, or are taking blood-thinner medicines. If you are given phenazopydridine to reduce burning with urination, it will cause your urine to become a bright orange color. This can stain clothing. Care and prevention These self-care steps can help prevent future infections: Drink plenty of fluids to prevent dehydration and flush out your bladder. Do this unless you must restrict fluids for other health reasons, or your doctor told you not to. Proper cleaning after going to the bathroom is important. Wipe from front to back after using the toilet to prevent the spread of bacteria. Urinate more often. Don't try to hold urine in for a long time. Wear loose-fitting clothes and cotton underwear. Avoid tight-fitting pants. Improve your diet and prevent constipation. Eat more fresh fruit and vegetables, and fiber, and less junk and fatty foods. Avoid sex until your symptoms are gone. Avoid caffeine, alcohol, and spicy foods. These can irritate your bladder. Urinate right after intercourse to flush out your bladder. If you use control pills and have frequent bladder infections, discuss it with your doctor. Follow-up care Call your healthcare provider if all symptoms are not gone after 3 days of treatment. This is especially important if you have repeat infections. If a culture was done, you will be told if your treatment needs to be changed. If directed, you cancall to find out the results. If X-rays were done, you will be told if the results will affect your treatment. Call 911 Call 911 if any of the following occur: Trouble breathing Hard to wake up or confusion Fainting or loss of consciousness Rapid heart rate When to seek medical advice Call your healthcare provider right away if any of these occur: Fever of 100.4 F (38.0 C) or higher, or as directed by your healthcare provider Symptoms are not better by the third day of treatment Back or belly (abdominal) pain that gets worse Repeated vomiting, or unable to keep medicine down Weakness or dizziness Vaginal discharge Pain, redness, or swelling in the outer vaginal area (labia) [id number] [employer]. [address] [place] [address]. All rights reserved. This information is not intended as a substitute for professional medical care. Always follow yourhealthcare professional's instructions. 09/19/2024 20:58:50 Back and Neck Pain, General General Neck and Back Pain Both neck and back pain are usually caused by injury to the muscles or ligaments of the spine. Sometimes the disks that separate each bone of the spine may cause pain by pressing on a nearby nerve. Back and neck pain may appear after a sudden twisting or bending force (such as in a car accident), or sometimes after a simple awkward movement. In either case, muscle spasm is often present and adds to the pain. Acute neck and back pain usually gets better in 1 to 2 weeks. Pain related to disk disease, arthritis in the spinal joints or spinal stenosis (narrowing of the spinal canal) can become chronic and last for months or years. Back and neck pain are common problems. Most people feel better in 1 or 2 weeks, and most of the rest in 1 to 2 months. Most people can remain active. People have and describe pain differently. Pain can be sharp, stabbing, shooting, aching, cramping, or burning Movement, standing, bending, lifting, sitting, or walking may worsen the pain Pain can be localized to one spot or area, or it can be more generalized Pain can spread or radiate upwards, downwards, to the front, or go down your arms Muscle spasm may occur. Most of the time mechanical problems with the muscles or spine cause the pain. it is usually causedby an injury, whether known or not, to the muscles or ligaments. While illnesses can cause back pain, it is usually not caused by a serious illness. Pain is usually related to physical activity, whether sports, exercise, work, or normal activity. Sometimes it can occur without an identifiable cause. This can happen simply by stretching or moving wrong, without noting pain at the time. Other causes include: Overexertion, lifting, pushing, pulling incorrectly or too aggressively. Sudden twisting, bending or stretching from an accident (car or fall), or accidental movement. Poor posture Poor conditioning, lack of regular exercise Spinal disc disease or arthritis Stress , or illness like appendicitis, bladder or kidney infection, pelvic infections Home care For neck pain: Use a comfortable pillow that supports the head and keeps the spine in a neutral position. The position of the head should not be tilted forward or backward. When in bed, try to find a position of comfort. A firm mattress is best. Try lying flat on your back with pillows under your knees. You can also try lying on your side with your knees bent up towardsyour chest and a pillow between your knees. At first, do not try to stretch out the sore spots. If there is a strain, it is not like the good soreness you get after exercising without an injury. In this case, stretching may make it worse. Don't sit for long periods, as in long car rides or other travel. This puts more stress on the lower back than standing or walking. During the first 24 to 72 hours after an injury, apply an ice pack to the painful area for 20 minutes and then remove it for 20 minutes over a period of 60 to 90 minutes or several times a day. You can alternate ice and heat therapies. Talk with your healthcare provider about the best treatment for your back or neck pain. As a safety precaution, do not use a heating pad at bedtime. Sleepingwith a heating pad can lead to skin pleitez or tissue damage. Therapeutic massage can help relax the back and neck muscles without stretching them. Be aware of safe lifting methods and do not lift anything over 15 pounds until all the pain is gone. Medicines Talk to your healthcare provider before using medicine, especially if you have other medical problems or are taking other medicines. You may use ymyu-jta-cbwsjzn medicine to control pain, unless another pain medicine was prescribed.If you have chronic conditions like diabetes, liver or kidney disease, stomach ulcers, gastrointestinal bleeding, or are taking blood thinner medicines. Be careful if you are given pain medicines, narcotics, or medicine for muscle spasm. They can causedrowsiness, and can affect your coordination, reflexes, and judgment. Do not drive or operate heavy[employer]ascular [employer]s. Follow-up care Follow up with your healthcare provider, or as advised. Physical therapy or further tests may be needed. If X-rays were taken, you will be notified of any new findings that may affect your care. Call 911 Call 911 if any of the following occur: Trouble breathing Confusion Very drowsy or trouble awakening Fainting or loss of consciousness Rapid or very slow heart rate Loss of bowel or bladder control When to seek medical advice Call your healthcare provider right away if any of these occur: Pain becomes worse or spreads into your arms or legs Weakness, numbness or pain in one or both arms or legs Numbness in the groin area Difficulty walking Fever of 100.4 F (38 C) or higher, or as directed by your healthcare provider [id number] [employer]. [address] [place] [address]. All rights reserved. This information is not intended as a substitute for professional medical care. Always follow yourhealthcare professional's instructions. Follow Up Care 09/19/2024 18:46:44 With:Follow up with primary care provider Address:Unknown When:2-4 days [facility] 01-10-2025 Note Discharge Instructions Thank you for allowing [facility] to assist you with your healthcare needs. The following is importantdischarge information regarding your hospital visit. Diagnosis from Today's Visit Back pain UTI (urinary tract infection) What to Do Next Instructions from Your Care Team No qualifying data available. Post Acute Orders No qualifying data available. You Need to Schedule the Following Appointments Follow Up with Follow up with primary care provider When:Within 2-4 days Allergies Tape Burn Medications Please ask your primary doctor or pharmacist before taking any other medication not listed, including over the counter drugs, herbal medications, vitamins and or supplements as they may interact withyour home medications. What How Much When Instructions Last Dose New cephalexin (cephalexin 500 mg oral capsule) 1 cap by mouth Every 12 hours Duration: 10 Days Pickup at [facility]/pharmacy #[id number] Unchanged acetaminophen-oxyCODONE (acetaminophen-oxyCODONE 325 mg-5 mg oral tablet) Unchanged acetaZOLAMIDE (acetaZOLAMIDE 500 mg oral capsule, extended release) TAKE 1 CAPSULE BY MOUTH TWICE A DAY Unchanged ARIPiprazole (ARIPiprazole 2 mg oral tablet) 1 tab(s) by mouth Once a day Unchanged clopidogrel (clopidogrel 75 mg oral tablet) 1 tab(s) by mouth Once a day Unchanged LORazepam (LORazepam 0.5 mg oral tablet) 1 tab(s) by mouth Two (2) times a day as needed for as needed for anxiety Unchanged Misc Medication ([facility] ASPIRIN 325 MG TABLET) TAKE 1 TABLET BY MOUTH EVERY DAY Unchanged ondansetron (Zofran 4 mg oral tablet) 1 tab(s) by mouth Every 6 hours Duration: 5 Days Unchanged pantoprazole (pantoprazole 40 mg oral enteric coated tablet) 1 tab(s) by mouth Once a day Unchanged propranolol (propranolol 10 mg oral tablet) Unchanged venlafaxine (venlafaxine 75 mg oral capsule, extended release) Pharmacy Information [facility]/pharmacy #[id number]: [address] [place], [place] [phone] Please take this list to your next doctor s visit. Bring all medications you take, including over the counter medications, herbals and other supplements with you to your doctor s visit. Patients and families are reminded to discard old lists and to update any records with all medication providers or retail pharmacies. Education Materials Bladder Infection, Female (Adult) Urine is normally doesn't have any bacteria in it. But bacteria can get into the urinary tract fromthe skin around the rectum. Or they can travel in the blood from elsewhere in the body. Once they are in your urinary tract, they can cause infection in the urethra (urethritis), the bladder (cystitis), or the kidneys (pyelonephritis). The most common place for an infection is in the bladder. This is called a bladder infection. This is one of the most common infections in women. Most bladder infections are easily treated. They are not serious unless the infection spreads to the kidney. The phrases bladder infection, UTI, and cystitis are often used to describe the same thing. But they are not always the same. Cystitis is an inflammation of the bladder. The most common cause of cystitis is an infection. Symptoms The infection causes inflammation in the urethra and bladder. This causes many of the symptoms. Themost common symptoms of a bladder infection are: Pain or burning when urinating Having to urinate more often than usual Urgent need to urinate Only a small amount of urine comes out Blood in urine Abdominal discomfort. This is usually in the lower abdomen above the pubic bone. Cloudy urine Strong- or bad-smelling urine Unable to urinate (urinary retention) Unable to hold urine in (urinary incontinence) Fever Loss of appetite Confusion (in older adults) Causes Bladder infections are not contagious. You can't get one from someone else, from a toilet seat, or from sharing a bath. The most common cause of bladder infections is bacteria from the bowels. The bacteria get onto the skin around the opening of the urethra. From there, they can get into the urine and travel up to thebladder, causing inflammation and infection. This usually happens because of: Wiping improperly after urinating. Always wipe from front to back. Bowel incontinence Procedures such as having a catheter inserted Older age Not emptying your bladder. This can allow bacteria a chance to grow in your urine. Dehydration Constipation Sex Use of a diaphragm for control Treatment Bladder infections are diagnosed by a urine test. They are treated with antibiotics and usually clear up quickly without complications. Treatment helps prevent a more serious kidney infection. Medicines Medicines can help in the treatment of a bladder infection: Take antibiotics until they are used up, even if you feel better. It is important to finish them tomake sure the infection has cleared. You can use acetaminophen or ibuprofen for pain, fever, or discomfort, unless another medicine was prescribed. If you have chronic liver or kidney disease, talk with your healthcare provider before using these medicines. Also talk with your provider if you've ever had a stomach ulcer or gastrointestinal bleeding, or are taking blood-thinner medicines. If you are given phenazopydridine to reduce burning with urination, it will cause your urine to become a bright orange color. This can stain clothing. Care and prevention These self-care steps can help prevent future infections: Drink plenty of fluids to prevent dehydration and flush out your bladder. Do this unless you must restrict fluids for other health reasons, or your doctor told you not to. Proper cleaning after going to the bathroom is important. Wipe from front to back after using the toilet to prevent the spread of bacteria. Urinate more often. Don't try to hold urine in for a long time. Wear loose-fitting clothes and cotton underwear. Avoid tight-fitting pants. Improve your diet and prevent constipation. Eat more fresh fruit and vegetables, and fiber, and less junk and fatty foods. Avoid sex until your symptoms are gone. Avoid caffeine, alcohol, and spicy foods. These can irritate your bladder. Urinate right after intercourse to flush out your bladder. If you use control pills and have frequent bladder infections, discuss it with your doctor. Follow-up care Call your healthcare provider if all symptoms are not gone after 3 days of treatment. This is especially important if you have repeat infections. If a culture was done, you will be told if your treatment needs to be changed. If directed, you cancall to find out the results. If X-rays were done, you will be told if the results will affect your treatment. Call 911 Call 911 if any of the following occur: Trouble breathing Hard to wake up or confusion Fainting or loss of consciousness Rapid heart rate When to seek medical advice Call your healthcare provider right away if any of these occur: Fever of 100.4 F (38.0 C) or higher, or as directed by your healthcare provider Symptoms are not better by the third day of treatment Back or belly (abdominal) pain that gets worse Repeated vomiting, or unable to keep medicine down Weakness or dizziness Vaginal discharge Pain, redness, or swelling in the outer vaginal area (labia) [id number] [employer]. [address] [place] [address]. All rights reserved. This information is not intended as a substitute for professional medical care. Always follow yourhealthcare professional's instructions. General Neck and Back Pain Both neck and back pain are usually caused by injury to the muscles or ligaments of the spine. Sometimes the disks that separate each bone of the spine may cause pain by pressing on a nearby nerve. Back and neck pain may appear after a sudden twisting or bending force (such as in a car accident), or sometimes after a simple awkward movement. In either case, muscle spasm is often present and adds to the pain. Acute neck and back pain usually gets better in 1 to 2 weeks. Pain related to disk disease, arthritis in the spinal joints or spinal stenosis (narrowing of the spinal canal) can become chronic and last for months or years. Back and neck pain are common problems. Most people feel better in 1 or 2 weeks, and most of the rest in 1 to 2 months. Most people can remain active. People have and describe pain differently. Pain can be sharp, stabbing, shooting, aching, cramping, or burning Movement, standing, bending, lifting, sitting, or walking may worsen the pain Pain can be localized to one spot or area, or it can be more generalized Pain can spread or radiate upwards, downwards, to the front, or go down your arms Muscle spasm may occur. Most of the time mechanical problems with the muscles or spine cause the pain. it is usually causedby an injury, whether known or not, to the muscles or ligaments. While illnesses can cause back pain, it is usually not caused by a serious illness. Pain is usually related to physical activity, whether sports, exercise, work, or normal activity. Sometimes it can occur without an identifiable cause. This can happen simply by stretching or moving wrong, without noting pain at the time. Other causes include: Overexertion, lifting, pushing, pulling incorrectly or too aggressively. Sudden twisting, bending or stretching from an accident (car or fall), or accidental movement. Poor posture Poor conditioning, lack of regular exercise Spinal disc disease or arthritis Stress , or illness like appendicitis, bladder or kidney infection, pelvic infections Home care For neck pain: Use a comfortable pillow that supports the head and keeps the spine in a neutral position. The position of the head should not be tilted forward or backward. When in bed, try to find a position of comfort. A firm mattress is best. Try lying flat on your back with pillows under your knees. You can also try lying on your side with your knees bent up towardsyour chest and a pillow between your knees. At first, do not try to stretch out the sore spots. If there is a strain, it is not like the good soreness you get after exercising without an injury. In this case, stretching may make it worse. Don't sit for long periods, as in long car rides or other travel. This puts more stress on the lower back than standing or walking. During the first 24 to 72 hours after an injury, apply an ice pack to the painful area for 20 minutes and then remove it for 20 minutes over a period of 60 to 90 minutes or several times a day. You can alternate ice and heat therapies. Talk with your healthcare provider about the best treatment for your back or neck pain. As a safety precaution, do not use a heating pad at bedtime. Sleepingwith a heating pad can lead to skin pleitez or tissue damage. Therapeutic massage can help relax the back and neck muscles without stretching them. Be aware of safe lifting methods and do not lift anything over 15 pounds until all the pain is gone. Medicines Talk to your healthcare provider before using medicine, especially if you have other medical problems or are taking other medicines. You may use hpqi-fiz-qrvztnn medicine to control pain, unless another pain medicine was prescribed.If you have chronic conditions like diabetes, liver or kidney disease, stomach ulcers, gastrointestinal bleeding, or are taking blood thinner medicines. Be careful if you are given pain medicines, narcotics, or medicine for muscle spasm. They can causedrowsiness, and can affect your coordination, reflexes, and judgment. Do not drive or operate heavyVascular [employer]s. Follow-up care Follow up with your healthcare provider, or as advised. Physical therapy or further tests may be needed. If X-rays were taken, you will be notified of any new findings that may affect your care. Call 911 Call 911 if any of the following occur: Trouble breathing Confusion Very drowsy or trouble awakening Fainting or loss of consciousness Rapid or very slow heart rate Loss of bowel or bladder control When to seek medical advice Call your healthcare provider right away if any of these occur: Pain becomes worse or spreads into your arms or legs Weakness, numbness or pain in one or both arms or legs Numbness in the groin area Difficulty walking Fever of 100.4 F (38 C) or higher, or as directed by your healthcare provider [id number] [employer]. [address] [place] [address]. All rights reserved. This information is not intended as a substitute for professional medical care. Always follow yourhealthcare professional's instructions. Additional Information VACCINATE! IT SAVES LIVES! Members of the community who have not yet received the COVID-19 vaccine and would like to receive it can visit one of [facility] vaccine clinics. There are many vaccine clinic locations within the [facility]. For locations and available times, please visit www.gettheshot.coronavirus.[place].gov/. It is important to note that some COVID mobile vaccine clinics are held outdoors and may be canceled in rainy or stormy conditions. To learn more about pediatric vaccinations (ages 5-11), we invite you to visit the [facility] webpage. https://www.[email or web address]/pages/[email or web address]-Jihjtfijmkk-Ejmofzejcb-Twclv-Pld stions.htmlTo learn more about the COVID-19 vaccine, we invite you to visit the CDC website for a list of frequently asked questions. https://www.cdc.gov/coronavirus/2019-ncov/vaccines/faq.html [facility] Patient Portal Access Instructions: Stay connected with your healthcare team and access your personal medical information anytime with the [facility] Patient Portal. If you would like a full copy of your medical records please contact the [facility] Medical Records Department Sunday through Sunday between 8a.m. and 4:30p.m. Please follow the directions below to access the portal: 1.Access the email account you provided upon registration to the [facility].2.Look for an invitation email from [facility].3.Open the email and access the invitation link: Accept Invitation to [facility]4.Fill in the required carson to create your account. Sign into www.[employer] with your username and password that you [...] you will allow to register on the [facility] Patient Portal for access to your information. You can also access the [facility] Patient Portal on the [employer] haydee. Simply click on Health Records under [employer] and then click on the [employer] logo. HOW TO SAFELY DISPOSE OF PRESCRIPTION MEDICATIONS Please use one of the following methods to safely dispose of your unused medications. 1.Use a drug disposal kit: the drug disposal pouch allows you to safely discard your old and unuseddrugs. Ask your nurse to give you one when you are discharged.2.Visit a local take-back location: Many local pharmacies and police departments have programs that collect old and unwanted prescriptiondrugs. Call your local pharmacy or go to http://bit.[employer]/8F5Ij1r to find one close to you.3.Make use of household items: Use cat litter or old coffee grounds to dispose medications if other options arenot available. Mix your drugs with these household products, seal them in an airtight container andthrow it into the garbage. Call [facility]: [phone] to be sure your drugs can be [...] drowsiness, such as benzodiazepines, also known as benzos,including diazepam and alprazolam, muscle relaxants or sleep aids. Never sell or share prescriptionopioids. This is illegal. Store opioids in a secure place and out of reach of others (including children, family, friends and visitors). The last page(s) of this document has been signed and retained as a CHART COPY Signatures Patient Education Materials Bladder Infection, Female (Adult) Back and Neck Pain, General Medication Leaflets My discharge plan and instructions have been reviewed and explained to me and IPATRICIA SHARON E understand my current condition and have read and understand these discharge instructions. I have received a written copy of the plan/instructions. If I have questions, I am aware that I should contact my doctor. Patient/Copy Chief Signature: Date/Time: Relationship to Patient: Witness Name/Signature: Date/Time: [facility]01-10-2025 Note* Exam Date Time Procedure Performing Provider Status 09/19/24 8:[address] Abdomen/Pelvis w/o Contrast DEQUAN THORPE MD; Auth (Verified) [id number] ORIGINAL EXAMINATION: CT OF THE ABDOMEN AND PELVIS WITHOUT CONTRAST09/19/2024 8:08 pm TECHNIQUE: CT of the abdomen and pelvis was performed without the administration of intravenous contrast. Multiplanar reformatted images are provided for review. Automated exposure control, iterative reconstruction, and/or weight based adjustment of the mA/kV was utilized to reduce the radiation dose to as low as reasonably achievable. COMPARISON: CT abdomen pelvis 08/25/2024 HISTORY: ORDERING SYSTEM PROVIDED HISTORY: Reason for Exam: R FLANK PAIN FINDINGS: The included lung bases are clear. There is no visible pleural or pericardial effusion. The heart is normal in size. The liver, spleen, adrenal glands, and pancreas are within normal limits. The gallbladder is surgically absent. The kidneys show no evidence of hydronephrosis or nephrolithiasis. The large and small bowel demonstrate no obstruction. The appendix is normal. No free intraperitoneal fluid or gas is identified. The aorta is normal in caliber. There is no lymphadenopathy. The uterus is unremarkable. Unremarkable urinary bladder. Postsurgical changes in anterior abdominal wall.. There is no acute fracture or aggressive osseous lesion. IMPRESSION: No acute abdominopelvic abnormality. No evidence of obstructive uropathy or nephrolithiasis. I have personally reviewed the images of this examination and agree with the resident's findings and interpretation. Interpreted by: Dequan Richard Preliminary Report By: Kenton Banks Electronically signed By Dequan Richard Dictated Date: 09/19/2024 8:19:56 PM Prelim Date: 09/19/2024 8:27:10 PM Sign Date: 09/19/2024 8:29:33 PM Ordering Provider: ROC BURT [facility]12-24-2024 Telephone encounter Note* Telephone Encounter - Geovanna Reyna - 09/02/2024 9:14 AM EST Pharmacy refill request for Pantoprazole 40 mg tablet Pharmacy on file verified as [facility] Pharmacy # [id number] [facility]12-24-2024 Miscellaneous Notes* Telephone Encounter - Geovanna Reyna - 09/02/2024 9:14 AM EST Pharmacy refill request for Pantoprazole 40 mg tablet Pharmacy on file verified as [facility] Pharm[facility] # [id number] + Plan note Future Scheduled Tests Radiology* US Pelvis Non-OB W/Transvaginal 09/01/24 [facility] 12-17-2024 Note. MICRO - Microbiology PROCEDURE: Urine Culture [O1 *1] SOURCE: Urine BODY SITE: COLLECTED DATE/TIME: 08/24/2024 23:58 EST RECEIVED DATE/TIME: 08/25/2024 15:46 EST START DATE/TIME: 08/25/2024 15:46 EST FREE TEXT SOURCE: FINAL REPORTS Final Report [] Verified Date/Time/Personnel: 08/26/2024 13:27 EST >100,000 cfu/ml Multiple bacterial morphotypes present. Probable Contamination. Suggest recollection if clinically indicated. Order Comments O1: Urine Culture Added by Discern Performing Locations *1: This test was performed at: [address], [facility] , [facility]12-16-2024 Hospital Discharge instructions Patient Education 08/25/2024 01:01:19 Pyelonephritis, Female (Adult) Kidney Infection (Adult Female) An infection in one or both kidneys is called pyelonephritis. It usually happens when bacteria (or rarely, viruses, fungi, or other disease-causing organisms) get into the kidney. The bacteria (or other disease-causing organisms) can enter the kidneys from the bladder or blood traveling from other parts of the body. A kidney infection can become serious. It can cause severe illness, scarring ofthe kidneys, or kidney failure if not treated properly. Common causes for this problem include: Not keeping the genital area clean and dry, which promotes the growth of bacteria Wiping back to front which drags bacteria from the rectum toward the urinary opening (urethra) Wearing tight pants or underwear (this lets moisture build up in the genital area, which helps bacteria grow) Holding urine in for long periods of time Dehydration Kidney infections can cause symptoms similar to a bladder infection. Symptoms include: Pain (or burning) when urinating Having to urinate more often than usual Blood in the urine (pink or red) Abdominal pain or discomfort, usually in the lower abdomen Pain in the side or back Pain above the pubic bone Fever or chills Vomiting Loss of appetite Treatment is oral antibiotics, or in more severe cases, intramuscular or IV antibiotics. These are started right away and may be changed once urine culture results determine the infecting organisms. Treatment helps prevent a more serious kidney infection. Medicines Medicines can help in the treatment of a bladder infection: Take antibiotics until they are used up, even if you feel better. It is important to finish them tomake sure the infection is gone. Unless another medicine was prescribed, you can use gqde-qif-pcovzli medicines for pain, fever, or discomfort. If you have chronic liver of kidney disease, talk with your healthcare provider before using these medicines. Also talk with your provider if you've ever had a stomach ulcer or gastrointestinal (GI) bleeding, or are taking blood thinners. Home care The following are general care guidelines: Stay home from work or school. Rest in bed until your fever breaks and you are feeling better, or as advised by your healthcare provider. Drink lots of fluid unless you must restrict fluids for other medical reasons. This will force the medicine into your urinary system and flush the bacteria out of your body. Ask your healthcare provider how much you should drink. Don't have sex until you have finished all of your medicine and your symptoms are gone. Don't have caffeine, alcohol, or spicy foods. These foods may irritate the kidneys and bladder. Don't take bubble baths. Sensitivity to the chemicals in bubble baths can irritate the urethra. Make sure you wipe from front to back after using the toilet. Wear loose cloths and cotton underwear. Prevention These self-care steps can help prevent future infections: Drink plenty of fluids to prevent dehydration and flush out the bladder. Do this unless you must restrict fluids for other health reasons, or your healthcare provider told you not to. Proper cleaning after going to the bathroom in important. Make sure you wipe from front to back after using the toilet. Urinate more often. Don't try to hold urine in for a long time. Don't wear tight-fitting pants and underwear. Improve your diet to prevent constipation. Eat more fruits, vegetables, and fiber. Eat less junk and fatty foods. Constipation can make a urinary tract infection more likely. Talk with your healthcare provider if you have trouble with bowel movements. Urinate right after intercourse to flush out the bladder. Follow-up care Follow up with your healthcare provider, or as advised. Additional testing may be needed to make sure the infection has cleared. Close follow-up and further testing is very important to find the cause and to prevent future infections. If a urine culture was done, you will be contacted if your treatment needs to be changed. If directed, you may call to find out the results. If you had an X-ray, CT scan, or other diagnostic test, you will be notified of any new findings that may affect your care. Call 911 Call 911 if any of the following occur: Trouble breathing Fainting or loss of consciousness Rapid or very slow heart rate Weakness, dizziness, or fainting Difficulty arousing or confusion When to seek medical advice Call your healthcare provider right away if any of these occur: Fever 100.4 F (38 C) or higher, or as directed by your healthcare provider Not feeling better within 1 to 2 days after starting antibiotics Any symptom that continues after 3 days of treatment Increasing pain in the stomach, back, side, or groin area Repeated vomiting Not able to take prescribed medicine due to nausea or another reason Bloody, dark-colored, or foul smelling urine Trouble urinating or decreased urine output No urine for 8 hours, no tears when crying, sunken eyes, or dry mouth [id number] [employer]. [address] [place] [address], [place] [address]. All rights reserved. This information is not intended as a substitute for professional medical care. Always follow yourhealthcare professional's instructions. Follow Up Care 08/24/2024 23:30:13 With:Follow up with primary care provider Address:Unknown When:2-4 days [facility] 12-16-2024 Note Discharge Instructions Thank you for allowing [facility] to assist you with your healthcare needs. The following is importantdischarge information regarding your hospital visit. Diagnosis from Today's Visit Pyelonephritis Right otitis media What to Do Next Instructions from Your Care Team You have signs of a bladder infection that is ascending to your kidneys. You need to take the antibiotics prescribed to you. You are also prescribed pain medication. You should see improvement in 1 to 2 days but you must complete the course of antibiotics. If you are not getting better after 1 to 2days of antibiotics, if you develop fevers, if you have severe pain, if you cannot tolerate any oral liquids or if you have any concerning symptoms please be reevaluated in the emergency department. No qualifying data available. Post Acute Orders No qualifying data available. You Need to Schedule the Following Appointments Follow Up with Follow up with primary care provider When:Within 2-4 days Allergies Tape Burn Medications Please ask your primary doctor or pharmacist before taking any other medication not listed, including over the counter drugs, herbal medications, vitamins and or supplements as they may interact withyour home medications. What How Much When Why Instructions Last Dose New acetaminophen-hydrocodone ([place] 325- 5 mg oral tablet) 1 tab(s) by mouth Every 6 hours as needed for for pain Pyelonephritis Duration: 3 Days Printed Prescription New cephalexin (cephalexin 500 mg oral capsule) 1 cap by mouth Four (4) times a day Duration: 10 Days Printed Prescription Please take this list to your next doctor s visit. Bring all medications you take, including over the counter medications, herbals and other supplements with you to your doctor s visit. Patients and families are reminded to discard old lists and to update any records with all medication providers or retail pharmacies. Education Materials Kidney Infection (Adult Female) An infection in one or both kidneys is called pyelonephritis. It usually happens when bacteria (or rarely, viruses, fungi, or other disease-causing organisms) get into the kidney. The bacteria (or other disease-causing organisms) can enter the kidneys from the bladder or blood traveling from other parts of the body. A kidney infection can become serious. It can cause severe illness, scarring ofthe kidneys, or kidney failure if not treated properly. Common causes for this problem include: Not keeping the genital area clean and dry, which promotes the growth of bacteria Wiping back to front which drags bacteria from the rectum toward the urinary opening (urethra) Wearing tight pants or underwear (this lets moisture build up in the genital area, which helps bacteria grow) Holding urine in for long periods of time Dehydration Kidney infections can cause symptoms similar to a bladder infection. Symptoms include: Pain (or burning) when urinating Having to urinate more often than usual Blood in the urine (pink or red) Abdominal pain or discomfort, usually in the lower abdomen Pain in the side or back Pain above the pubic bone Fever or chills Vomiting Loss of appetite Treatment is oral antibiotics, or in more severe cases, intramuscular or IV antibiotics. These are started right away and may be changed once urine culture results determine the infecting organisms. Treatment helps prevent a more serious kidney infection. Medicines Medicines can help in the treatment of a bladder infection: Take antibiotics until they are used up, even if you feel better. It is important to finish them tomake sure the infection is gone. Unless another medicine was prescribed, you can use owwu-gxb-cbchypp medicines for pain, fever, or discomfort. If you have chronic liver of kidney disease, talk with your healthcare provider before using these medicines. Also talk with your provider if you've ever had a stomach ulcer or gastrointestinal (GI) bleeding, or are taking blood thinners. Home care The following are general care guidelines: Stay home from work or school. Rest in bed until your fever breaks and you are feeling better, or as advised by your healthcare provider. Drink lots of fluid unless you must restrict fluids for other medical reasons. This will force the medicine into your urinary system and flush the bacteria out of your body. Ask your healthcare provider how much you should drink. Don't have sex until you have finished all of your medicine and your symptoms are gone. Don't have caffeine, alcohol, or spicy foods. These foods may irritate the kidneys and bladder. Don't take bubble baths. Sensitivity to the chemicals in bubble baths can irritate the urethra. Make sure you wipe from front to back after using the toilet. Wear loose cloths and cotton underwear. Prevention These self-care steps can help prevent future infections: Drink plenty of fluids to prevent dehydration and flush out the bladder. Do this unless you must restrict fluids for other health reasons, or your healthcare provider told you not to. Proper cleaning after going to the bathroom in important. Make sure you wipe from front to back after using the toilet. Urinate more often. Don't try to hold urine in for a long time. Don't wear tight-fitting pants and underwear. Improve your diet to prevent constipation. Eat more fruits, vegetables, and fiber. Eat less junk and fatty foods. Constipation can make a urinary tract infection more likely. Talk with your healthcare provider if you have trouble with bowel movements. Urinate right after intercourse to flush out the bladder. Follow-up care Follow up with your healthcare provider, or as advised. Additional testing may be needed to make sure the infection has cleared. Close follow-up and further testing is very important to find the cause and to prevent future infections. If a urine culture was done, you will be contacted if your treatment needs to be changed. If directed, you may call to find out the results. If you had an X-ray, CT scan, or other diagnostic test, you will be notified of any new findings that may affect your care. Call 911 Call 911 if any of the following occur: Trouble breathing Fainting or loss of consciousness Rapid or very slow heart rate Weakness, dizziness, or fainting Difficulty arousing or confusion When to seek medical advice Call your healthcare provider right away if any of these occur: Fever 100.4 F (38 C) or higher, or as directed by your healthcare provider Not feeling better within 1 to 2 days after starting antibiotics Any symptom that continues after 3 days of treatment Increasing pain in the stomach, back, side, or groin area Repeated vomiting Not able to take prescribed medicine due to nausea or another reason Bloody, dark-colored, or foul smelling urine Trouble urinating or decreased urine output No urine for 8 hours, no tears when crying, sunken eyes, or dry mouth [phone] [employer]. [address] [place] [address], [place] [address]. All rights reserved. This information is not intended as a substitute for professional medical care. Always follow yourhealthcare professional's instructions. Additional Information VACCINATE! IT SAVES LIVES! Members of the community who have not yet received the COVID-19 vaccine and would like to receive it can visit one of [facility] vaccine clinics. There are many vaccine clinic locations within the [facility]. For locations and available times, please visit www.gettheshot.coronavirus.[place].gov/. It is important to note that some COVID mobile vaccine clinics are held outdoors and may be canceled in rainy or stormy conditions. To learn more about pediatric vaccinations (ages 5-11), we invite you to visit the [facility] webpage. [email or web address]/[email or web address]-[email or web address]-Gks stions.htmlTo learn more about the COVID-19 vaccine, we invite you to visit the CDC website for a list of frequently asked questions. https://www.cdc.gov/coronavirus/2019-ncov/vaccines/faq.html [facility] Patient Portal Access Instructions: Stay connected with your healthcare team and access your personal medical information anytime with the [facility] Patient Portal. If you would like a full copy of your medical records please contact the [facility] Medical Records Department Sunday through Sunday between 8a.m. and 4:30p.m. Please follow the directions below to access the portal: 1.Access the email account you provided upon registration to the hospital.2.Look for an invitation email from [facility].3.Open the email and access the invitation link: Accept Invitation to [facility]4.Fill in the required carson to create your account. Sign into www.[employer] with your username and password that you [...] you will allow to register on the [facility] Patient Portal for access to your information. You can also access the [facility] Patient Portal on the [employer] haydee. Simply click on Health Records under AddSearch and then click on the [employer] logo. HOW TO SAFELY DISPOSE OF PRESCRIPTION MEDICATIONS Please use one of the following methods to safely dispose of your unused medications. 1.Use a drug disposal kit: the drug disposal pouch allows you to safely discard your old and unuseddrugs. Ask your nurse to give you one when you are discharged.2.Visit a local take-back location: Many local pharmacies and police departments have programs that collect old and unwanted prescriptiondrugs. Call your local pharmacy or go to http://[email or web address]/4D1Xn5i to find one close to you.3.Make use of household items: Use cat litter or old coffee grounds to dispose medications if other options arenot available. Mix your drugs with these household products, seal them in an airtight container andthrow it into the garbage. Call [facility]: [phone] to be sure your drugs can be [...] drowsiness, such as benzodiazepines, also known as benzos,including diazepam and alprazolam, muscle relaxants or sleep aids. Never sell or share prescriptionopioids. This is illegal. Store opioids in a secure place and out of reach of others (including children, family, friends and visitors). The last page(s) of this document has been signed and retained as a CHART COPY Signatures Patient Education Materials Benjamin, Female (Adult) Medication Leaflets My discharge plan and instructions have been reviewed and explained to me and IPATRICIA SHARON E understand my current condition and have read and understand these discharge instructions. I have received a written copy of the plan/instructions. If I have questions, I am aware that I should contact my doctor. Patient/Copy Chief Signature: Date/Time: Relationship to Patient: Witness Name/Signature: Date/Time: [facility]12-16-2024 Note ORIGINAL EXAMINATION: CT OF THE ABDOMEN AND PELVIS WITHOUT CONTRAST 08/25/2024 12:40 am TECHNIQUE: CT of the abdomen and pelvis was performed without the administration of intravenous contrast. Multiplanar reformatted images are provided for review. Automated exposure control, iterative reconstruction, and/or weight based adjustment of the mA/kV was utilized to reduce the radiation dose to as low as reasonably achievable. COMPARISON: CT abdomen pelvis June 12, 2024 HISTORY: ORDERING SYSTEM PROVIDED HISTORY: Reason for Exam: left flank pain hx of kidney stones abdominal pain FINDINGS: Lower Chest: No focal consolidation. Organs: Cholecystectomy. No hydronephrosis or hydroureter. Asymmetric left periureteral fat stranding. No radiopaque stone identified. GI/Bowel: No bowel obstruction, pneumoperitoneum, or ascites. Pelvis: Unremarkable. Peritoneum/Retroperitoneum: Nonaneurysmal abdominal aorta. No enlarged lymph nodes. Bones/Soft Tissues: No acute osseous abnormality. Anterior abdominal wall postsurgical change. IMPRESSION: Asymmetric left periureteral fat stranding, without visualized stone, could reflect recently passed stone unless there is a concern for ascending urinary tract infection. Correlate clinically. Interpreted by: Dequan Richard Preliminary Report By: Dequan Richard Electronically signed By Dequan Richard Dictated Date: 08/25/2024 12:48:03 AM Prelim Date: 08/25/2024 12:51:24 AM Sign Date: 08/25/2024 12:51:24 AM [facility] + Plan note Diagnostic Tests Pending * Urine Culture 08/24/24 [facility] 11-27-2024 NoteHNO ID: [id number] Author: MURPHY KINCAID MD Service: ? Author Type: Resident Type: Progress Notes Filed: 08/06/2024 20:00 Note Text: Patient is POD s/p sinus stenting for IIH, and is on a Dexamethasone taper. Has baseline anxiety which she says has become increasingly severe and she has been unable to sleep for several days. Is otherwise at baseline. Reports that the only thing that has helped with anxiety is Ativan which she has a prescription for through psychiatrist but has run out and won?t be able to get new script over holiday weekend. - we discussed changing Dec dosing so that she takes all pills before the early afternoon to help with sleep - will write short script for 0.5 mg Ativan BID PRN to get her through the iday weekend; she plans to call her established mental health providers early next week [facility] NoteHNO ID: [id number] Author: WILLIAMS JOHNSON APRN.ARCHIVAL STUDIES PROFESSOR Service: Interventional Radiology Author Type: Nurse Practitioner Type: Progress Notes Filed: 07/30/2024 09:06 Note Text: ENDOVASCULAR SURGICAL NEURORADIOLOGY Progress Note SERVICE DATE: 07/30/2024 SERVICE TIME: 08 CHIEF COMPLAINT: IIH HPI: Omar Gomez is a 38 year old female, who is post-procedure day #1 after successful stenting of right transverse sinus stenosis OVERNIGHT EVENTS: persistent right sided headache (improved with PRN medication and positioning) FUNCTIONAL STATUS: Independent Current Facility-Administered Medications Medication Dose Route Frequency Provider Last Rate Last Admin aspirin 325 mg tab(s) 325 mg ORAL DAILY Austin Bustamante MD 325 mg at 07/30/[address] 40 mg tab(s) (PROTONIX) 40 mg ORAL DAILY (6 AM) Austin Bustamante MD 40 mg at 07/30/24621 ondansetron (PF) 4 mg injection (ZOFRAN) 4 mg INTRAVENOUS q 6 H PRN Austin Bustamante MD acetaminophen 1,000 mg tab(s) (TYLENOL) 1,000 mg ORAL q 6 H PRN Austin Bustamante MD 1,000 mg at 07/29/241953 methocarbamol 500 mg tab(s) (ROBAXIN) 500 mg ORAL TID PRN Austin Bustamante MD 500 mg at 07/30/24 0805 magnesium sulfate iv piggyback in sterile water 2 g 50 mL 2 g INTRAVENOUS DAILY Austin Bustamante MD 25 mL/hr at 07/30/24 0804 2 g at 07/30/24 0804 keTORolac 15 mg injection (Toradol) 15 mg INTRAVENOUS q 6 H PRN Austin Bustamante MD 15 mg at 07/29/24 1452 phenazopyridine 100 mg tab(s) (PYRIDIUM) 100 mg ORAL TID after MEALS Austin Bustamante MD 100 mg at 07/30/24 0804 cefTRIAXone iv piggyback 2 g in dextrose (iso-osmotic) 50 mL (ROCEPHIN) 2 g INTRAVENOUS q 24 H Austin Bustamante MD 100 mL/hr at 07/29/24 1450 2 g at 07/29/24 1450 NaCl 0.9% iv flush bag 20 mL INTRAVENOUS PRN Austin Bustamante MD clopidogrel 150 mg tab(s) (PLAVIX) 150 mg ORAL DAILY Serafin Jimenez MD 150 mg at 07/30/24 0804 ALLERGIES Allergen Reactions Tape [Adhesive Tape* Rash EKG tape pleitez skin- other tape gives patient rashes PHYSICAL EXAM: BP 137/81 Pulse 92 Temp (Src) 98.1 (Oral) Resp 18 Wt 239 lb 3.2 oz (108.5kg) SpO2 95% LMP 07/10/2024 O2 Therapy: Room Air GENERAL: Not in acute distress, pleasant female, well-developed, well-nourished ACCESS SITE: Right radial, dressing dry and intact. No bleeding or hematoma. Distal radial pulse palpable Right femoral venous, dressing dry and intact. No bleeding or hematoma. DP pulse palpable. NEUROLOGICAL: Mental status: Alert, awake and oriented x3. Speech, language, attention span, memory and fund of knowledge are intact. Cranial nerves: Pupils equal, reactive. EOMI. Visual carson full. Normal facial sensation. No facial asymmetry. Uvula midline, symmetric palatal elevation. Symmetric shoulder shrug. Tongue midline. Motor: Normal bulk, tone and strength bilaterally. No pronator drift. Sensory: Normal to soft touch, pinprick, temperature bilaterally. Coordination: No dysmetria or ataxia DATA: Diagnostic tests reviewed for today's visit: Most recent labs and imaging results. Hemoglobin (g/dL) Date Value 07/25/2024 11.4 04/20/2016 14.4 Hematocrit (%) Date Value 07/25/2024 37.4 04/20/2016 43.6 WBC (k/uL) Date Value 07/25/2024 10.03 04/20/2016 9.71 Platelet Count Date Value Ref Range Status 07/25/2024 332 150 - 400 k/uL Final Glucose (mg/dL) Date Value 07/25/2024 115 08/14/2019 87 Potassium (mmol/L) Date Value 07/25/2024 4.6 08/14/2019 3.8 Sodium (mmol/L) Date Value 07/25/2024 139 08/14/2019 140 Chloride (mmol/L) Date Value 07/25/2024 109 08/14/2019 108 CO2 (mmol/L) Date Value 07/25/2024 18 08/14/2019 17 Creatinine (mg/dL) Date Value 07/25/2024 0.67 08/14/2019 0.96 BUN (mg/dL) Date Value 07/25/2024 13 08/14/2019 17 Anion Gap (mmol/L) Date Value 07/25/2024 12 08/14/2019 15 Calcium (mg/dL) Date Value 08/14/2019 8.9 Calcium, Total (mg/dL) Date Value 07/25/2024 8.9 ASSESSMENT/PLAN: - Plavix 150mg daily for 2 weeks then transition to 75mg daily for 3 months. Aspirin 325mg daily - Mobilize OOB - Acetaminophen, robaxin and dexamethasone for headache management - If ambulating without issue, headache managed and post procedural labs stable ok for discharge home today. SIGNATURE: Williams Johnson APRN.ARCHIVAL STUDIES PROFESSOR PATIENT NAME: Omar Gomez DATE: July 30, 2024 TIME: 9:04 [facility]11-19-2024 NoteHNO ID: [id number] Author: AUSTIN BUSTAMANTE MD Service: Neuroendovascular Intervention Author Type: Fellow Type: Progress Notes Filed: 07/29/2024 14:46 Note Text: Neuroendovascular Immediate Post-Op Note July 29, 2024 2:43 PM Examination: GEN: NAD RESP: normal effort. NEURO: AAOx3. Speech clear, fluent. PERRLA. Facial sensation intact. No facial droop. Tongue midline. Strength 5/5 throughout (RLE not tested against gravity). Sensation intact to light touch throughout. Intact FTN, HTS. Gait deferred. Access Site: Right radial artery (6Fr); closed w TR band (10 cc) /Right common femoral vein (8Fr); closed with MVP Pulses: Intact Assessment: Successful stenting and angioplasty of the right TSJ. Plan: - PACU --> Neuro SDU - SBP 100-160 mmhg - ASA 325 mg and plavix 75 mg daily (next dose tomorrow at 9 am) - Vascular/Neurological/Access checks as per order set Austin Bustamante MD [facility] Fellow [phone] NoteHNO ID: [id number] Author: IHSAN FRAGOSO MD Service: ? Author Type: Anesthesiologist Type: Anesthesia Procedure Notes Filed: 07/29/2024 11:44 Note Text: ANESTHESIOLOGY PROCEDURE NOTE PIV General Information Procedure Start Time/Medication Administration: 07/29/2024 11:44 AM Procedure End Time: 07/29/2024 11:44 AM Patient Location: OR Staffing Anesthesiologist: Ihsan Fragoso MD CORPORATE COUNSELOR: Shabana Sharp APRN.CORPORATE COUNSELOR Performed by: CORPORATE COUNSELOR Preparation Sterility Preparation: skin prep agent completely dried prior to procedure Sterility Technique Not Completely Performed Due to Extreme Emergency: No Site Prep: alcohol Procedure Details Indication: need for IV access Needle Size/Type: 20 gauge angiocath Orientation: Left Location: Wrist Imaging Guidance Used: No SIGNATURE: Ihsan Duron MD PATIENT NAME: Omar Gomez DATE: July 29, 2024 TIME: 11:44 AM CSN: [id number] NoteHNO ID: [id number] Author: IHSAN FRAGOSO MD Service: ? Author Type: Anesthesiologist Type: Anesthesia Procedure Notes Filed: 07/29/2024 11:39 Note Text: ANESTHESIOLOGY PROCEDURE NOTE Airway General Information Procedure Start Time/Medication Administration: 07/29/2024 11:10 AM Procedure End Time: 07/29/2024 11:38 AM Patient location during procedure: OR Timeout Performed Pre-procedure: timeout performed Consent Obtained: Yes Patient identity confirmed: arm band and patient Staffing Anesthesiologist: Ihsan Fragoso MD CORPORATE COUNSELOR: Shabana Sharp APRN.CORPORATE COUNSELOR Performed by: CATALINA Indications and Patient Condition Indications for airway management: anesthesia Preoxygenated: yes anesthesia circuit Patient position: sniffing Method: asleep Cricoid Pressure: No Manual In-Line Stabilization: Yes Difficult Mask: No Airway Accessory: oral airway Final Airway Details Final airway type: endotracheal airway Final Endotracheal Airway: ETT Cuffed: yes Successful intubation technique: video laryngoscopy Endotracheal tube insertion site: oral Blade size: #3 ETT size (mm): 7.0 Measured from: lips Measurement (cm): 22 Placement verified by: chest auscultation and capnometry Cormack-Lehane Classification: grade I - full view of glottis Number of attempts at approach: 1 Ventilation between attempts: none Failed airway: no Unrecognized esophageal intubation: no Airway not difficult SIGNATURE: Ihsan Duron MD PATIENT NAME: Omar Gomez DATE: July 29, 2024 TIME: 11:38 AM CSN: [id number] Instructions* Patient Instructions* Jenise Fam APRN.[facility] - 07/25/2024 10:52 AM EST Images from the original note were not included. [facility] PATIENT PREOPERATIVE INSTRUCTIONS Dr. Harris has scheduled you for your procedure at this surgery center: [facility] [place] [facility] Scheduling Office: [phone] --[id number] [id number]. Please read below carefully for your personalized instructions. Arrival Time for Surgery: - To obtain your arrival time for surgery, call your physician's office the day before your surgery. - If your surgery is scheduled for Sunday, call the Sunday before. Your surgeon s stagecraft teacher will tell you what time to call the office. - If you have not reached the departmental stagecraft teacher by 5 P.M., call [phone] after 5 P.M. the day before your surgery. Dietary Restrictions: - No solid food after midnight. - You may have 12 ounces of clear liquids (water, clear juices such as apple juice or gatorade, carbonated beverages, clear tea, black coffee, jello) until 2 hours before scheduled arrival at facility. - Do not drink any alcohol after midnight the night before your surgery. - no milk/creamer or other additives like honey - no pulp juices Medications: Unless instructed differently below, stay on all of your medications until your surgery. If you start any new medications after today's visit, please contact your surgeon. Pre-Surgery Med Instructions Medication Instructions aspirin 325 mg tablet Instructions below clopidogrel (PLAVIX) 75 mg tablet Instructions below LORazepam (ATIVAN) 1 mg tablet If needed venlafaxine ER (EFFEXOR XR) 75 mg 24 hr capsule Take the day of surgery with a small sip of water Prior to Procedure On July:Start Aspirin 325 mg daily and take every day including day of procedure On July: Start Clopidogrel (Plavix) 75 mg daily and every day including the day of procedure Please stop Prilosec (omeprazole) or Nexium (esomeprazole) while on plavix due to interaction. Our office has prescriber Pantoprazole 40 mg daily before breakfast for stomach protections If you start any new medications after today's visit, please contact the surgeon's office. Blood Thinning Medications: - Stop NSAIDS (Ibuprofen, Advil, Aleve, Motrin, Celebrex, Mobic, etc.) 7 days before surgery, as directed by your surgeon. - Stop herbals 7 days before surgery. - You may take Tylenol (Acetaminophen) or any of your pain medications that do not contain aspirin or NSAIDS as needed. Important Reminders: - If you use CPAP/BIPAP, bring the machine with you to the surgery center. - If you are prescribed inhalers for breathing, continue using them. -Please be sure to brush your teeth and you can use mouth wash or rinse your mouth if dry. - Candy, mints, and tobacco products are NOT permitted the morning of surgery. - Hearing aids, dentures and glasses may be worn the morning of surgery. - NO jewelry, body piercings, makeup, hairpins or contacts are to be worn the day of surgery. If you develop symptoms such as a fever, cold, or flu, or have other changes to your health within TWO DAYS of scheduled surgery or the morning of surgery, please contact the surgery center above. Personal Belongings: -Please have photo ID and insurance cards. -If you do not have a copy of advance directives on file with us, please bring a copy with you on the day of surgery. - Leave ALL valuables and money at home or with family members. For Outpatient Procedures: - YOU MUST HAVE A RESPONSIBLE APPLIED RESEARCH DIRECTOR TAKE YOU HOME. A ACTING MANAGER OR CLINICAL ADMINISTRATOR CANNOT BE MADE A RESPONSIBLE APPLIED RESEARCH DIRECTOR. - We recommend that a responsible person stays with you overnight to take care of you. - You cannot stay in a hotel alone after outpatient surgery. You will not be permitted to have yoursurgery, if you do not have someone to take care of you. Please be aware that emergency situations arise, which may delay or change your surgical time. If this happens, we will notify you as soon as possible and regret any inconvenience. If you already have an Advance Directive, please fax a copy to [phone] or email to for it to be added to your chart. If you do not have an Advance Directive, you can find the appropriate form and more information at [email or web address]. We recommend that youcomplete the Advance Directive form found on the website and bring it with you the day of your surgery. It can be witnessed and scanned into your chart that day. Jenise Fam APRN.CNP [facility] History and physical note * Jenise Fam APRN.CNP - 07/25/2024 10:47 AM EST Images from the original note were not included. [facility] HISTORY AND PHYSICAL EXAMINATION SERVICE DATE: 07/25/2024 SERVICE TIME: 11:24 AM PRIMARY CARE PHYSICIAN: No primary care provider on file. Assessment Patient has the following medical conditions which may affect aidan-operative course: Migraine with aura and without status migrainosus, not intractable Assessment: R/t her IIH. Following with Dr. Harris, intermittent episodes. Hypertension Assessment: Stable, no rx. Follows with PCP. Last 3 Encounter BP Readings: Date: BP: 07/25/2024 135/89 06/03/2024 164/76 05/15/2024 150/90[Pt here to drive pt home[ PTSD (post-traumatic stress disorder) Assessment: Compliant on rx. Follows PCP. Denies any medical related triggers. Obesity due to excess calories without serious comorbidity Assessment: Body mass index is 39.5 kg/m . Major depressive disorder Assessment: complaint on mood stablizers, follows PCP. Difficult intravenous access Assessment: Advised adequate hydration, noted to have difficulty in the past. Denied any use of central lines placed in the past. US use recommended. Braswell Activity Status Index: METS: Walk indoors, such as around the house (1.75 METs) Do light work around the house, such as dusting or washing dishes (2.70 METs) Take care of self; that is eating, dressing, bathing, using the toilet (2.75 METs) Walk a block or two on level ground (2.75 METs) Do moderate work around the house, such as vacuuming, sweeping floors, or carrying in groceries (3.50 METs) Do yardwork, such as raking leaves, weeding, or pushing a power mower (4.50 METs) Have sexual relations (5.25 METs) Climb a flight of stairs or walk up a hill (5.50 METs) DASI Score: 28.7 Patient denies any chest pain or undue shortness of breath with the above physical activity. Clinical Frailty Scale: 3. Well, with treated comorbid disease STOP-Bang Score: Has or is being treated for high blood pressure BMI greater than 35 kg/m^2 Denies snoring loudly Denies feeling tired, fatigued, or sleepy during the daytime Has not been observed to stop breathing or choking/gasping during sleep Patient 50 years old or younger Does not have a large neck Non-male patient STOP-Bang Score: 2 ANESTHESIA FINDINGS: Intubation History: No history of difficult intubation. No abnormal airway history Significant Anesthesia Considerations: potential difficult IV/vein access Airway History: No history of difficult airway No abnormal airway history I - PHYSICAL EVALUATION AIRWAY Patient intubated: No. Tracheostomy tube not present Mallampati: III. TM distance: >3 FB. Neck ROM: full ROM without neurological symptoms. Mouth opening: adequate. Short neck: no. Thick neck: no Microretrognathia/Micronagthia/Recessed Chin: No DENTAL Dental findings: teeth intact. II - ANESTHESIA PLAN Anesthetic plan additional comments: *PACC/TCI - anesthesia choice. Beta Son Monitoring Plan Post Procedure Analgesic Plan Prepared for Surgery: optimally prepared for surgery, pending [see comment]. ASA and plavix okay tocontinue per neurology from prior TE Surgeon labs pending ADDENDUM: July 25, 2024 3:44 PM Labs and/or EKG reviewed and acceptable for upcoming procedure CONSULTS: Patient does not require consults for optimization at this time Planned Anesthetic: anesthesia choice The Following Tests/Procedures Have Been Initiated: No orders of the defined types were placed in this encounter. REASON FOR VISIT: Omar Gomez is a 38 year old female who is scheduled for Procedure(s): SELECTIVE CATHETER PLACEMENT EACH INTRACRANIAL BRANCH OF THE INTERNAL CAROTID OR VERTEBRAL ARTERIESUNILATERAL W/ ANGIOGRAPHY OF THE SELECTED VESSEL CIRCULATION AND ALL ASSOCIATED RADIOLOGICAL SUPERVISION AND INTERPRETATION (Bilateral) TRANSCATH PLCMNT OF INTRACRANIAL INTRAVASCULAR STENT (Right) at the request of Chula Ortiz MD for consultation. My final recommendation will be communicated back to the requesting physician by way of shared medical record or letter. Subjective The patient has the following: COVID-19 Immunization Status Overdue - Covid-19 Vaccine ( season) Never done No completion, postpone, frequency change, or communication history exists for this topic. CHIEF COMPLAINT: pre op HPI: Patient is a 38 year old female presenting with a hx of IIH for years, since 2014. Reports having visual related symptoms, memory difficulty, dropping objects, migraines. Denies hx of stroke or seizures. Has tried conservative methods with little relief. Patient denies other specific radiating, alleviating, or aggravating factors. REVIEW OF SYSTEMS: General: No weight loss, malaise or fevers. Neurological: Positive for: headaches. Negative for: SHIP SCALER tumor, dementia, impaired sensorium, peripheral neuropathy, seizures, TIA and strokes. Respiratory: Negative for: asthma, bronchitis, COPD, current cough, bronchodilator used daily for the last 3 months, dyspnea, home oxygen, orthopnea, pneumonia within 6 weeks, tobacco use, URI < 2 weeks and obstructive sleep apnea. Cardiovascular: Denies syncope. Negative for: abdominal aortic aneurysm, AICD/PPM, angina, anticoagulation therapy, arrhythmia, atrial fibrillation, CAD, chest pain, CHF, congenital heart defect, DVT/PE, hyperlipidemia, hypertension, recent NE, murmur/valvular heart disease, PTCA, PVD, open heart surgery and valve surgery. GI: Positive for: abdominal pain (intermittent d/t mesh per pt) Negative for: GERD, GI bleed <30 days, hepatitis, liver disease, nausea, vomiting and ETOH >2drinks/day. : Denies kidney disease Negative for: on dialysis, dysuria, frequent urination, hematuria, renal failure and urinary tract infection. 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 Negative for abnormal vaginal bleeding, abnormal vaginal discharge. Endocrine: Negative for: diabetes mellitus, hyperthyroidism and hypothyroidism. Hematology: No history of bleeding or clotting disorder. Patient is not taking anti-coagulation or platelet medications. No history of hematological symptoms or problems. Oncology: No history of CA metastasis, chemo within 30 days, or radiotherapy within 90 days. No history of oncological symptoms or problems. Psych: +ptsd Positive for: depression. Musculoskeletal: Negative for joint pain or swelling, back pain or muscle pain. Skin: Negative for lesions, rash and itching. Implanted Devices: No implanted devices. PAST MEDICAL HISTORY Diagnosis Date Adjustment disorder [...] Never Used Substance Use Topics Alcohol use: Not Currently Drug use: No Prior to Admission medications as of 07/25/24 1057 Medication Sig Last Dose Taking aspirin 325 mg tablet Take 1 tablet by mouth once daily. Taking Yes clopidogrel (PLAVIX) 75 mg tablet Take 1 tablet by mouth once daily. Taking Yes LORazepam (ATIVAN) 1 mg tablet Take 1 mg by mouth as needed for anxiety. Taking Yes venlafaxine ER (EFFEXOR XR) 75 mg 24 hr capsule Take 1 capsule by mouth every afternoon. Taking Yes Miscellaneous Medical Supply (BLOOD PRESSURE CUFF) 1 Each once daily. Taking Yes diazePAM (VALIUM) 5 mg tablet Take 5 mg by mouth every 6 hours as needed for anxiety (Patient took 10mg total). Patient not taking: Reported on 07/25/[address] (PROTONIX) 40 mg tablet Take 1 tablet by mouth once daily. Patient not taking: Reported on 07/25/2024 Not Taking acetaZOLAMIDE SR (DIAMOX SEQUELS) 500 mg capsule Take 2 capsules by mouth two times a day. iv contrast (will be provided with radiology [...] in the MR contrast administration guidelines link. Patient not taking: Reported on 07/25/2024 Not Taking ibuprofen (MOTRIN) 600 mg tablet Take 600 mg by mouth every 6 hours as needed. Patient not taking: Reported on 07/25/2024 Not Taking No medication comments found. ALLERGIES Allergen Reactions Tape [Adhesive Tape* Rash EKG tape pleitez skin- other tape gives patient rashes Objective PHYSICAL EXAM: General: alert and oriented and healthy appearance. Pertinent negatives noted - not distressed. Flat affect . Skin: normal color, no rash or lesions. HEENT: EOM intact and pupils reactive to light. Pertinent negatives noted - no carotid bruit. Left eye pupil dilated, chronic at baseline per pt . Cardiovascular: regular rate and rhythm, normal S1 and S2, no rub, murmurs, or gallop. Respiratory: normal breath sounds, no wheezes or crackles. No chest wall deformity or tenderness. Abdomen: bowel sounds present and soft. Pertinent negatives noted - not tender. Extremities: no deformity, no edema or tenderness, no joint swelling or clubbing. Neurological: normal cognition and motor skills. Gait normal. No weakness or sensory deficit. PAIN ASSESSMENT: VITALS: BP 135/89 Pulse 79 Temp 96.8 Resp 20 Ht 5' 6 (1.68m) Wt 244 lb 11.4 oz (111.0kg) SpO2 100% LMP 06/12/2024 BMI 39.52 kg/(m^2). Diagnostic tests reviewed for today's visit: Lab Value Units Date High Low HB 12.5 g/dL 02/20/2024 15.5 11.5 HCT 37.5 % 02/20/2024 46.0 36.0 WBC 10.45 k/uL 02/20/2024 11.00 3.70 PLT 299 k/uL 02/20/2024 400 150 NA 142 mmol/L 03/26/2024 144 136 K 4.1 mmol/L 03/26/2024 5.1 3.7 GLUC 86 mg/dL 03/26/2024 99 74 BUN 13 mg/dL 03/26/2024 21 7 CREAT 0.81 mg/dL 03/26/2024 0.96 0.58 PTSEC No results within date range. INR No results within date range. APTT No results within date range. ALT No results within date range. AST No results within date range. TBILI No results within date range. TSH No results within date range. Lab Value Units Date High Low HCGQT No results within date range. UHCG No results within date range. HCG, BODY* No results within date range. Lab Value Units Date High Low ABORHD No results within date range. ABSCREEN No results within date range. No results found for: HBA1C No results found for this or any previous visit (from the past 8760 hour(s)). No results found for this or any previous visit (from the past 87683 hour(s)). Instructions Given to Patient: Instructions located in the after visit summary. Patient given verbal and written preop instructions and voices comprehension and compliance. SIGNATURE: Jenise Fam APRN.CNP PATIENT NAME: Omar Gomez DATE: July 25, 2024 TIME: 10:47 AM PAGER/CONTACT #: [facility]11-15-2024 History and physical note* MariannarmandJenise APRN.ARCHIVAL STUDIES PROFESSOR - 07/25/2024 10:47 AM EST Images from the original note were not included. [facility] HISTORY AND PHYSICAL EXAMINATION SERVICE DATE: 07/25/2024 SERVICE TIME: 11:24 AM PRIMARY CARE PHYSICIAN: No primary care provider on file. Assessment Patient has the following medical conditions which may affect aidan-operative course: Migraine with aura and without status migrainosus, not intractable Assessment: R/t her IIH. Following with Dr. Harris, intermittent episodes. Hypertension Assessment: Stable, no rx. Follows with PCP. Last 3 Encounter BP Readings: Date: BP: 07/25/2024 135/89 06/03/2024 164/76 05/15/2024 150/90[Pt here to drive pt home[ PTSD (post-traumatic stress disorder) Assessment: Compliant on rx. Follows PCP. Denies any medical related triggers. Obesity due to excess calories without serious comorbidity Assessment: Body mass index is 39.5 kg/m . Major depressive disorder Assessment: complaint on mood stablizers, follows PCP. Difficult intravenous access Assessment: Advised adequate hydration, noted to have difficulty in the past. Denied any use of central lines placed in the past. US use recommended. Braswell Activity Status Index: METS: Walk indoors, such as around the house (1.75 METs) Do light work around the house, such as dusting or washing dishes (2.70 METs) Take care of self; that is eating, dressing, bathing, using the toilet (2.75 METs) Walk a block or two on level ground (2.75 METs) Do moderate work around the house, such as vacuuming, sweeping floors, or carrying in groceries (3.50 METs) Do yardwork, such as raking leaves, weeding, or pushing a power mower (4.50 METs) Have sexual relations (5.25 METs) Climb a flight of stairs or walk up a hill (5.50 METs) DASI Score: 28.7 Patient denies any chest pain or undue shortness of breath with the above physical activity. Clinical Frailty Scale: 3. Well, with treated comorbid disease STOP-Bang Score: Has or is being treated for high blood pressure BMI greater than 35 kg/m^2 Denies snoring loudly Denies feeling tired, fatigued, or sleepy during the daytime Has not been observed to stop breathing or choking/gasping during sleep Patient 50 years old or younger Does not have a large neck Non-male patient STOP-Bang Score: 2 ANESTHESIA FINDINGS: Intubation History: No history of difficult intubation. No abnormal airway history Significant Anesthesia Considerations: potential difficult IV/vein access Airway History: No history of difficult airway No abnormal airway history I - PHYSICAL EVALUATION AIRWAY Patient intubated: No. Tracheostomy tube not present Mallampati: III. TM distance: >3 FB. Neck ROM: full ROM without neurological symptoms. Mouth opening: adequate. Short neck: no. Thick neck: no Microretrognathia/Micronagthia/Recessed Chin: No DENTAL Dental findings: teeth intact. II - ANESTHESIA PLAN Anesthetic plan additional comments: *PACC/TCI - anesthesia choice. Beta Son Monitoring Plan Post Procedure Analgesic Plan Prepared for Surgery: optimally prepared for surgery, pending [see comment]. ASA and plavix okay tocontinue per neurology from prior TE Surgeon labs pending ADDENDUM: July 25, 2024 3:44 PM Labs and/or EKG reviewed and acceptable for upcoming procedure CONSULTS: Patient does not require consults for optimization at this time Planned Anesthetic: anesthesia choice The Following Tests/Procedures Have Been Initiated: No orders of the defined types were placed in this encounter. REASON FOR VISIT: Omar Gomez is a 38 year old female who is scheduled for Procedure(s): SELECTIVE CATHETER PLACEMENT EACH INTRACRANIAL BRANCH OF THE INTERNAL CAROTID OR VERTEBRAL ARTERIESUNILATERAL W/ ANGIOGRAPHY OF THE SELECTED VESSEL CIRCULATION AND ALL ASSOCIATED RADIOLOGICAL SUPERVISION AND INTERPRETATION (Bilateral) TRANSCATH PLCMNT OF INTRACRANIAL INTRAVASCULAR STENT (Right) at the request of Chula Ortiz MD for consultation. My final recommendation will be communicated back to the requesting physician by way of shared medical record or letter. Subjective The patient has the following: COVID-19 Immunization Status Overdue - Covid-19 Vaccine ( season) Never done No completion, postpone, frequency change, or communication history exists for this topic. CHIEF COMPLAINT: pre op HPI: Patient is a 38 year old female presenting with a hx of IIH for years, since 2014. Reports having visual related symptoms, memory difficulty, dropping objects, migraines. Denies hx of stroke or seizures. Has tried conservative methods with little relief. Patient denies other specific radiating, alleviating, or aggravating factors. REVIEW OF SYSTEMS: General: No weight loss, malaise or fevers. Neurological: Positive for: headaches. Negative for: SHIP SCALER tumor, dementia, impaired sensorium, peripheral neuropathy, seizures, TIA and strokes. Respiratory: Negative for: asthma, bronchitis, COPD, current cough, bronchodilator used daily for the last 3 months, dyspnea, home oxygen, orthopnea, pneumonia within 6 weeks, tobacco use, URI < 2 weeks and obstructive sleep apnea. Cardiovascular: Denies syncope. Negative for: abdominal aortic aneurysm, AICD/PPM, angina, anticoagulation therapy, arrhythmia, atrial fibrillation, CAD, chest pain, CHF, congenital heart defect, DVT/PE, hyperlipidemia, hypertension, recent NE, murmur/valvular heart disease, PTCA, PVD, open heart surgery and valve surgery. GI: Positive for: abdominal pain (intermittent d/t mesh per pt) Negative for: GERD, GI bleed <30 days, hepatitis, liver disease, nausea, vomiting and ETOH >2drinks/day. : Denies kidney disease Negative for: on dialysis, dysuria, frequent urination, hematuria, renal failure and urinary tract infection. 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 Negative for abnormal vaginal bleeding, abnormal vaginal discharge. Endocrine: Negative for: diabetes mellitus, hyperthyroidism and hypothyroidism. Hematology: No history of bleeding or clotting disorder. Patient is not taking anti-coagulation or platelet medications. No history of hematological symptoms or problems. Oncology: No history of CA metastasis, chemo within 30 days, or radiotherapy within 90 days. No history of oncological symptoms or problems. Psych: +ptsd Positive for: depression. Musculoskeletal: Negative for joint pain or swelling, back pain or muscle pain. Skin: Negative for lesions, rash and itching. Implanted Devices: No implanted devices. PAST MEDICAL HISTORY Diagnosis Date Adjustment disorder [...] Never Used Substance Use Topics Alcohol use: Not Currently Drug use: No Prior to Admission medications as of 07/25/24 1057 Medication Sig Last Dose Taking aspirin 325 mg tablet Take 1 tablet by mouth once daily. Taking Yes clopidogrel (PLAVIX) 75 mg tablet Take 1 tablet by mouth once daily. Taking Yes LORazepam (ATIVAN) 1 mg tablet Take 1 mg by mouth as needed for anxiety. Taking Yes venlafaxine ER (EFFEXOR XR) 75 mg 24 hr capsule Take 1 capsule by mouth every afternoon. Taking Yes Miscellaneous Medical Supply (BLOOD PRESSURE CUFF) 1 Each once daily. Taking Yes diazePAM (VALIUM) 5 mg tablet Take 5 mg by mouth every 6 hours as needed for anxiety (Patient took 10mg total). Patient not taking: Reported on 07/25/[address] (PROTONIX) 40 mg tablet Take 1 tablet by mouth once daily. Patient not taking: Reported on 07/25/2024 Not Taking acetaZOLAMIDE SR (DIAMOX SEQUELS) 500 mg capsule Take 2 capsules by mouth two times a day. iv contrast (will be provided with radiology test) [facility] Brain Inject, intravenously, once for 1 dose. [...] in the MR contrast administration guidelines link. Patient not taking: Reported on 07/25/2024 Not Taking ibuprofen (MOTRIN) 600 mg tablet Take 600 mg by mouth every 6 hours as needed. Patient not taking: Reported on 07/25/2024 Not Taking No medication comments found. ALLERGIES Allergen Reactions Tape [Adhesive Tape* Rash EKG tape pleitez skin- other tape gives patient rashes Objective PHYSICAL EXAM: General: alert and oriented and healthy appearance. Pertinent negatives noted - not distressed. Flat affect . Skin: normal color, no rash or lesions. HEENT: EOM intact and pupils reactive to light. Pertinent negatives noted - no carotid bruit. Left eye pupil dilated, chronic at baseline per pt . Cardiovascular: regular rate and rhythm, normal S1 and S2, no rub, murmurs, or gallop. Respiratory: normal breath sounds, no wheezes or crackles. No chest wall deformity or tenderness. Abdomen: bowel sounds present and soft. Pertinent negatives noted - not tender. Extremities: no deformity, no edema or tenderness, no joint swelling or clubbing. Neurological: normal cognition and motor skills. Gait normal. No weakness or sensory deficit. PAIN ASSESSMENT: VITALS: BP 135/89 Pulse 79 Temp 96.8 Resp 20 Ht 5' 6 (1.68m) Wt 244 lb 11.4 oz (111.0kg) SpO2 100% LMP 06/12/2024 BMI 39.52 kg/(m^2). Diagnostic tests reviewed for today's visit: Lab Value Units Date High Low HB 12.5 g/dL 02/20/2024 15.5 11.5 HCT 37.5 % 02/20/2024 46.0 36.0 WBC 10.45 k/uL 02/20/2024 11.00 3.70 PLT 299 k/uL 02/20/2024 400 150 NA 142 mmol/L 03/26/2024 144 136 K 4.1 mmol/L 03/26/2024 5.1 3.7 GLUC 86 mg/dL 03/26/2024 99 74 BUN 13 mg/dL 03/26/2024 21 7 CREAT 0.81 mg/dL 03/26/2024 0.96 0.58 PTSEC No results within date range. INR No results within date range. APTT No results within date range. ALT No results within date range. AST No results within date range. TBILI No results within date range. TSH No results within date range. Lab Value Units Date High Low HCGQT No results within date range. UHCG No results within date range. HCG, BODY* No results within date range. Lab Value Units Date High Low ABORHD No results within date range. ABSCREEN No results within date range. No results found for: HBA1C No results found for this or any previous visit (from the past 8760 hour(s)). No results found for this or any previous visit (from the past 83085 hour(s)). Instructions Given to Patient: Instructions located in the after visit summary. Patient given verbal and written preop instructions and voices comprehension and compliance. SIGNATURE: Jenise Fam APRN.CNP PATIENT NAME: Omar Gomez DATE: July 25, 2024 TIME: 10:47 AM PAGER/CONTACT #: [facility] Discharge instructions Patient Education 07/24/2024 17:53:10 Understanding Headache Pain Understanding Headache Pain Headache pain can start in different structures in the head. The brain itself doesn't hurt, but other parts of the head do. Headache is a common symptom of illness, such as a cold or the flu. At other times, headaches happen without seeming to be connected to any illness. These are known as primaryheadaches. Examples of primary headaches include migraine and tension headaches. Very rarely are headaches a sign of a serious medical problem. What is referred pain? Referred pain has its source in one place, but is felt in another. For example, pain behind the eyes may actually be caused by tense muscles in the neck and shoulders. This means that the place that hurts may not be the part of the head that needs treatment. [id number] [employer]. [address] [place] [address]. All rights reserved. This information is not intended as a substitute for professional medical care. Always follow yourhealthcare professional's instructions. Follow Up Care 07/24/2024 15:54:44 With:Follow up with primary care provider Address:Unknown When:2-4 days [facility] 11-14-2024 Note Discharge Instructions Thank you for allowing [facility] to assist you with your healthcare needs. The following is importantdischarge information regarding your hospital visit. Diagnosis from Today's Visit Headache What to Do Next Instructions from Your Care Team No qualifying data available. Post Acute Orders No qualifying data available. You Need to Schedule the Following Appointments Follow Up with Follow up with primary care provider When:Within 2-4 days Allergies Tape Burn Medications Please ask your primary doctor or pharmacist before taking any other medication not listed, including over the counter drugs, herbal medications, vitamins and or supplements as they may interact withyour home medications. What How Much When Instructions Last Dose Unchanged acetaminophen-oxyCODONE (acetaminophen-oxyCODONE 325 mg-5 mg oral tablet) Unchanged acetaZOLAMIDE (acetaZOLAMIDE 500 mg oral capsule, extended release) TAKE 1 CAPSULE BY MOUTH TWICE A DAY Unchanged ARIPiprazole (ARIPiprazole 2 mg oral tablet) 1 tab(s) by mouth Once a day Unchanged clopidogrel (clopidogrel 75 mg oral tablet) 1 tab(s) by mouth Once a day Unchanged LORazepam (LORazepam 0.5 mg oral tablet) 1 tab(s) by mouth Two (2) times a day as needed for as needed for anxiety Unchanged Misc Medication ([facility] ASPIRIN 325 MG TABLET) TAKE 1 TABLET BY MOUTH EVERY DAY Unchanged ondansetron (Zofran 4 mg oral tablet) 1 tab(s) by mouth Every 6 hours Duration: 5 Days Unchanged pantoprazole (pantoprazole 40 mg oral enteric coated tablet) 1 tab(s) by mouth Once a day Unchanged propranolol (propranolol 10 mg oral tablet) [...] medication providers or retail pharmacies. Education Materials Understanding Headache Pain Headache pain can start in different structures in the head. The brain itself doesn't hurt, but other parts of the head do. Headache is a common symptom of illness, such as a cold or the flu. At other times, headaches happen without seeming to be connected to any illness. These are known as primaryheadaches. Examples of primary headaches include migraine and tension headaches. Very rarely are headaches a sign of a serious medical problem. What is referred pain? Referred pain has its source in one place, but is felt in another. For example, pain behind the eyes may actually be caused by tense muscles in the neck and shoulders. This means that the place that hurts may not be the part of the head that needs treatment. [phone] [employer]. [address] [place] [address], [place] [address]. All rights reserved. This information is not intended as a substitute for professional medical care. Always follow yourhealthcare professional's instructions. Additional Information VACCINATE! IT SAVES LIVES! Members of the community who have not yet received the COVID-19 vaccine and would like to receive it can visit one of [facility] vaccine clinics. There are many vaccine clinic locations within the [facility]. For locations and available times, please visit www.[email or web address].[place].gov/. It is important to note that some COVID mobile vaccine clinics are held outdoors and may be canceled in rainy or stormy conditions. To learn more about pediatric vaccinations (ages 5-11), we invite you to visit the [facility] webpage. https://[email or web address]/pages/[email or web address]-[email or web address]-[email or web address] stions.htmlTo learn more about the COVID-19 vaccine, we invite you to visit the CDC website for a list of frequently asked questions. https://www.cdc.gov/coronavirus/2019-ncov/vaccines/faq.html [facility] Patient Portal Access Instructions: Stay connected with your healthcare team and access your personal medical information anytime with the [facility] Patient Portal. If you would like a full copy of your medical records please contact the [facility] Medical Records Department Sunday through Sunday between 8a.m. and 4:30p.m. Please follow the directions below to access the portal: 1.Access the email account you provided upon registration to the hospital.2.Look for an invitation email from [facility].3.Open the email and access the invitation link: Accept Invitation to [facility]4.Fill in the required carson to create your account. Sign into [email or web address] with your username and password that you [...] you will allow to register on the [facility] Patient Portal for access to your information. You can also access the [facility] Patient Portal on the [employer] haydee. Simply click on Health Records under AddSearch and then click on the [employer] logo. HOW TO SAFELY DISPOSE OF PRESCRIPTION MEDICATIONS Please use one of the following methods to safely dispose of your unused medications. 1.Use a drug disposal kit: the drug disposal pouch allows you to safely discard your old and unuseddrugs. Ask your nurse to give you one when you are discharged.2.Visit a local take-back location: Many local pharmacies and police departments have programs that collect old and unwanted prescriptiondrugs. Call your local pharmacy or go to [email or web address] to find one close to you.3.Make use of household items: Use cat litter or old coffee grounds to dispose medications if other options arenot available. Mix your drugs with these household products, seal them in an airtight container andthrow it into the garbage. Call [facility]: [phone] to be sure your drugs can be [...] drowsiness, such as benzodiazepines, also known as benzos,including diazepam and alprazolam, muscle relaxants or sleep aids. Never sell or share prescriptionopioids. This is illegal. Store opioids in a secure place and out of reach of others (including children, family, friends and visitors). The last page(s) of this document has been signed and retained as a CHART COPY Signatures Patient Education Materials Understanding Headache Pain Medication Leaflets My discharge plan and instructions have been reviewed and explained to me and I,OMAR GOMEZ understand my current condition and have read and understand these discharge instructions. I have received a written copy of the plan/instructions. If I have questions, I am aware that I should contact my doctor. Patient/Copy Chief Signature: Date/Time: Relationship to Patient: Witness Name/Signature: Date/Time: [facility]11-14-2024 Note ORIGINAL EXAMINATION: CT OF THE HEAD WITHOUT QLZCBQFL36/14/2024 5:[address] HEAD/BRAIN WITHOUT CONTRAST EXAM DESCRIPTION: TECHNIQUE: CT of the head was performed without the administration of intravenous contrast. Automated exposure control, iterative reconstruction, and/or weight based adjustment of the mA/kV was utilized to reduce the radiation dose to as low as reasonably achievable. COMPARISON: None available HISTORY: ORDERING SYSTEM PROVIDED HISTORY: Reason for Exam: Altered mental status FINDINGS: The size, density, and morphology of the brain and CSF containing spaces appears normal. There is no evidence of mass, midline shift, hemorrhage, or infract. The ventricles, cortical sulci, and subarachnoid cisterns appear unremarkable. There are no extra-axial fluid collections. No regions of pathologic attenuation are evident. Regions of the orbits and paranasal sinuses included within the field of view are unremarkable. There is no displaced fracture or osseous neoplasm. The extracalvarial soft tissues appear unremarkable. IMPRESSION: No acute intracranial pathology. COMMENT: Changes resultant from ischemia (even significant ischemia) may often be inapparent on CT exam, particularly if imaged early. Additionally, early changes due to neoplastic or inflammatory processes can be subtle to the extent that they are not prospectively noted. Therefore, if symptoms persist, or clinical suspicion for pathology remains, further evaluation may be obtained with MRI. Interpreted by: Leigh Jefferson MD Preliminary Report By: Leigh Jefferson MD Electronically signed By Leigh Jefferson MD Dictated Date: 07/24/2024 5:12:45 PM Prelim Date: 07/24/2024 5:13:58 PM Sign Date: 07/24/2024 5:13:58 PM [facility]ing [facility] NoteSinus rhythm Multiform ventricular premature complexes Probable left atrial enlargement Artifact in lead(s) I,II,III,aVR,aVL,aVF and baseline wander in lead(s) V4 Electronic Signature: BROOK OLIVER MD 07/24/2024 16:49:21[facility] Telephone encounter Note* Telephone Encounter - Mary Choudhury RN - 07/24/2024 12:14 PM EST Spoke to patient states that she is so dizzy with nausea that she is unable to move. Advised that Dr Morton recommends her to go to ED for evaluation. Patient agreed [facility]11-14-2024 Miscellaneous Notes* Telephone Encounter - Mary Choudhury RN - 07/24/2024 12:14 PM EST Spoke to patient states that she is so dizzy with nausea that she is unable to move. Advised that Dr Morton recommends her to go to ED for evaluation. Patient agreed * Telephone Encounter - Karli Charles RN - 07/24/2024 9:58 AM EST Spoke with Omar and stated she should go to the ED to be evaluated for SEGOVIA and dizziness with visual problems. She was apprehensive but understood and said OK. * Telephone Encounter - Karli Charles RN - 07/24/2024 9:25 AM EST Omar called back. 3 days ago she started having a headache 04/19, took tylenol, became nausea, dizzy and slept all day. Said it helped a little bit with some caffeine. States she cannot walk well, she has to hold onto things to walk because of how severe her dizziness is. (She still performs taskslike making dinner, driving kids to school, cleaning the house) Also has constant nausea. Currently02/17 SEGOVIA, has not checked her BP in the past few days but thought about it and does not have access to it currently . Has some blurry vision, fatigue tingling in her feet, and photophobia that started today. Thinks she has been getting worse the more she takes it * Telephone Encounter - Karli Charles RN - 07/24/2024 9:18 AM EST Returned call, pt did not answer, left Vm to call back. * Telephone Encounter - Omar Butcher - 07/24/2024 9:07 AM EST Images from the original note were not included. CV PHONE Name of caller : Omar Relationship to patient : Self If not self Will need patient permission to release results or disclose health information with called documented in fyi. Patient identified by Name and Date of . ( Omar Crump Zach, 1985). Yes Number to return call [phone] Reason for Call: Symptoms Call: Symptoms: patient called stating she was recently put on blood thinners and can't hardly walk, started 3 days ago and it's worse today, patient also states she has a headache Duration: >48 hours Progression: worse Pain level: 7 on a scale of 0-10. Type of pain (feels like): pressure Frequency: constant Location of pain: head [facility] Thank you calling [facility]. You will receive a return call within 48hours ( or 2 business days if close to the weekend). If you feel that this is an urgent issue and needs immediate attention, it is recommended that you contact your primary care provider office or proceed to your nearest Urgent Care Center of Emergency Room ED for evaluation/treatment. [facility] Telephone encounter Note * Telephone Encounter - Karli Charles RN - 07/24/2024 9:58 AM EST Spoke with Omar and stated she should go to the ED to be evaluated for SEGOVIA and dizziness with visual problems. She was apprehensive but understood and said OK. [facility]11-14-[facility] Telephone encounter Note* Telephone Encounter - Karli Charles RN - 07/24/2024 9:25 AM EST Omar called back. 3 days ago she started having a headache 04/19, took tylenol, became nausea, dizzy and slept all day. Said it helped a little bit with some caffeine. States she cannot walk well, she has to hold onto things to walk because of how severe her dizziness is. (She still performs taskslike making dinner, driving kids to school, cleaning the house) Also has constant nausea. Currently6/10 SEGOVIA, has not checked her BP in the past few days but thought about it and does not have access to it currently . Has some blurry vision, fatigue tingling in her feet, and photophobia that started today. Thinks she has been getting worse the more she takes it [facility]11-14-[facility] Telephone encounter Note* Telephone Encounter - Karli Charles RN - 07/24/2024 9:18 AM EST Returned call, pt did not answer, left Vm to call back. [facility]11-14-2024 Telephone encounter Note* Telephone Encounter - Andres Derek Omar - 07/24/2024 9:07 AM EST Images from the original note were not included. CV PHONE Name of caller : Omar Relationship to patient : Self If not self Will need patient permission to release results or disclose health information with called documented in fyi. Patient identified by Name and Date of . ( Omar Serrano, 1985). Yes Number to return call [phone] Reason for Call: Symptoms Call: Symptoms: patient called stating she was recently put on blood thinners and can't hardly walk, started 3 days ago and it's worse today, patient also states she has a headache Duration: >48 hours Progression: worse Pain level: 7 on a scale of 0-10. Type of pain (feels like): pressure Frequency: constant Location of pain: head [facility] Thank you calling [facility]. You will receive a return call within 48hours ( or 2 business days if close to the weekend). If you feel that this is an urgent issue and needs immediate attention, it is recommended that you contact your primary care provider office or proceed to your nearest Urgent Care Center of Emergency Room ED for evaluation/treatment. [facility] Work Phone: [phone]) 153-849311-05-2024 Hospital Discharge instructions Patient Education 07/15/2024 17:04:29 Bruises (Contusions) Bruises (Contusions) A contusion is a bruise. A bruise happens when a blow to your body doesn't break the skin but does break blood vessels beneath the skin. Blood leaking from the broken vessels causes redness and swelling. As it heals, your bruise is likely to turn colors like purple, green, and yellow. This is normal. The bruise should fade in 2 or 3 weeks. Factors that make you more likely to bruise Almost everyone bruises now and then. Certain people do bruise more easily than others. You're moreprone to bruising as you get older. That's because blood vessels become more fragile with age. You're also more likely to bruise if you have a clotting disorder such as hemophilia or take medicines that reduce clotting, including aspirin and coumadin. You are also more likely to bruise if you have liver disease and or drink alcohol daily. When to go to the emergency room (ER) Bruises almost always heal on their own without special treatment. But for some people, a bad bruise can be serious. Seek medical care if you: Have a clotting disorder such as hemophilia Have cirrhosis or other serious liver disease Take blood-thinning medicines such as warfarin What to expect in the ER A doctor will examine your bruise and ask about any health conditions you have. In some cases, you may have a test to check how well your blood clots. Other treatment will depend on your needs. Follow-up care Sometimes a bruise gets worse instead of better. It may become larger and more swollen. This can occur when your body estrada off a small pool of blood under the skin (hematoma). In very rare cases, your doctor may need to drain extra blood from the area. Tip: Apply an ice pack or bag of frozen peas to a bruise. Keep a thin cloth between the ice or frozen peas and your skin. The cold can help reduce redness and swelling. [id number] [employer]. [address] [place] [address]. All rights reserved. This information is not intended as a substitute for professional medical care. Always follow yourhealthcare professional's instructions. Follow Up Care 07/15/2024 16:00:45 With:Follow up with primary care provider Address: When:2-4 days only if needed [facility] 11-05-2024 Note Discharge Instructions Thank you for allowing [facility] to assist you with your healthcare needs. The following is importantdischarge information regarding your hospital visit. What to Do Next Instructions from Your Care Team No qualifying data available. Post Acute Orders No qualifying data available. You Need to Schedule the Following Appointments Follow Up with Follow up with primary care provider When:Within 2-4 days, only if needed Allergies Tape Burn Medications Please ask your primary doctor or pharmacist before taking any other medication not listed, including over the counter drugs, herbal medications, vitamins and or supplements as they may interact withyour home medications. What How Much When Instructions Last Dose Unchanged acetaminophen-oxyCODONE (acetaminophen-oxyCODONE 325 mg-5 mg oral [...] medication providers or retail pharmacies. Education Materials Bruises (Contusions) A contusion is a bruise. A bruise happens when a blow to your body doesn't break the skin but does break blood vessels beneath the skin. Blood leaking from the broken vessels causes redness and swelling. As it heals, your bruise is likely to turn colors like purple, green, and yellow. This is normal. The bruise should fade in 2 or 3 weeks. Factors that make you more likely to bruise Almost everyone bruises now and then. Certain people do bruise more easily than others. You're moreprone to bruising as you get older. That's because blood vessels become more fragile with age. You're also more likely to bruise if you have a clotting disorder such as hemophilia or take medicines that reduce clotting, including aspirin and coumadin. You are also more likely to bruise if you have liver disease and or drink alcohol daily. When to go to the emergency room (ER) Bruises almost always heal on their own without special treatment. But for some people, a bad bruise can be serious. Seek medical care if you: Have a clotting disorder such as hemophilia Have cirrhosis or other serious liver disease Take blood-thinning medicines such as warfarin What to expect in the ER A doctor will examine your bruise and ask about any health conditions you have. In some cases, you may have a test to check how well your blood clots. Other treatment will depend on your needs. Follow-up care Sometimes a bruise gets worse instead of better. It may become larger and more swollen. This can occur when your body estrada off a small pool of blood under the skin (hematoma). In very rare cases, your doctor may need to drain extra blood from the area. Tip: Apply an ice pack or bag of frozen peas to a bruise. Keep a thin cloth between the ice or frozen peas and your skin. The cold can help reduce redness and swelling. [id number] [employer]. [address] [place] [address]. All rights reserved. This information is not intended as a substitute for professional medical care. Always follow yourhealthcare professional's instructions. Additional Information VACCINATE! IT SAVES LIVES! Members of the community who have not yet received the COVID-19 vaccine and would like to receive it can visit one of [facility] vaccine clinics. There are many vaccine clinic locations within the [facility]. For locations and available times, please visit www.[email or web address].[place].gov/. It is important to note that some COVID mobile vaccine clinics are held outdoors and may be canceled in rainy or stormy conditions. To learn more about pediatric vaccinations (ages 5-11), we invite you to visit the [facility] webpage. https://[email or web address]/pages/[email or web address]-Hpsbw-Yjzgljtxhgn-Vmbcnyieox-Eream-Wlb [email or web address].htmlTo learn more about the COVID-19 vaccine, we invite you to visit the CDC website for a list of frequently asked questions. https://www.cdc.gov/coronavirus/2019-ncov/vaccines/faq.html [facility] Patient Portal Access Instructions: Stay connected with your healthcare team and access your personal medical information anytime with the [facility] Patient Portal. If you would like a full copy of your medical records please contact the [facility] Medical Records Department Sunday through Sunday between 8a.m. and 4:30p.m. Please follow the directions below to access the portal: 1.Access the email account you provided upon registration to the [facility].2.Look for an invitation email from [facility].3.Open the email and access the invitation link: Accept Invitation to [facility]4.Fill in the required carson to create your account. Sign into [email or web address] with your username and password that you [...] you will allow to register on the [facility] Patient Portal for access to your information. You can also access the [facility] Patient Portal on the [employer]. Simply click on Health Records under AddSearch and then click on the Network Intelligence logo. HOW TO SAFELY DISPOSE OF PRESCRIPTION MEDICATIONS Please use one of the following methods to safely dispose of your unused medications. 1.Use a drug disposal kit: the drug disposal pouch allows you to safely discard your old and unuseddrugs. Ask your nurse to give you one when you are discharged.2.Visit a local take-back location: Many local pharmacies and police departments have programs that collect old and unwanted prescriptiondrugs. Call your local pharmacy or go to http://bit.Somany Ceramics/6J8Sq2n to find one close to you.3.Make use of household items: Use cat litter or old coffee grounds to dispose medications if other options arenot available. Mix your drugs with these household products, seal them in an airtight container andthrow it into the garbage. Call [facility]: [phone] to be sure your drugs can be [...] drowsiness, such as benzodiazepines, also known as benzos,including diazepam and alprazolam, muscle relaxants or sleep aids. Never sell or share prescriptionopioids. This is illegal. Store opioids in a secure place and out of reach of others (including children, family, friends and visitors). The last page(s) of this document has been signed and retained as a CHART COPY Signatures Patient Education Materials Bruises (Contusions) Medication Leaflets My discharge plan and instructions have been reviewed and explained to me and I,OMAR GOMEZ understand my current condition and have read and understand these discharge instructions. I have received a written copy of the plan/instructions. If I have questions, I am aware that I should contact my doctor. Patient/Copy Chief Signature: Date/Time: Relationship to Patient: Witness Name/Signature: Date/Time: [facility]11-05-2024 Telephone encounter Note* Telephone Encounter - Jonathan Aranda RN - 07/15/2024 9:14 AM EST Called and spoke with patient via phone. Notified her that Dr. Lopez was urgently called to the OR this morning and her appointment would need to be rescheduled. Pt accepted new virtual visit date of 07/23/24 at 10:45am. [facility]11-05-2024 Miscellaneous Notes* Telephone Encounter - Jonathan Aranda RN - 07/15/2024 9:14 AM EST Called and spoke with patient via phone. Notified her that Dr. Lopez was urgently called to the OR this morning and her appointment would need to be rescheduled. Pt accepted new virtual visit date of 07/23/24 at 10:45am. documented in [facility] NoteDate of Procedure 07/02/2024. Organic Chemistry Teacher Information Rate Analyst: JV. Start time: 12:23 PM. Stop time: 12:33 PM. Allergies to adhesive bandages. Reliability Right Eye Good. Left Eye Good. Interpretation Right Eye Non-specific defect. Left Eye Enlarged Blind Spot. Interval Change Right Eye Stable. Left Eye Worse. Notes Residual blind spot enlargement left [id number] NoteDate of Procedure 07/02/2024. Organic Chemistry Teacher Information Rate Analyst: MAICOL. Start time: 12:45 PM. NFL Interpretation Right Eye RNFL Thickening. Left Eye RNFL Thickening. Interval Change Right Eye Better. Left Eye Better. Notes Significantly decreased peripapillary retinal nerve fiber layer thickening with prior [id number] NoteHNO ID: [id number] Author: MIKAEL COLÓN MD Service: ? Author Type: Physician Type: Progress Notes Filed: 07/02/2024 15:21 Note Text: Omar Serrano is a 38 year old right-handed woman [...] she has recurrent rhinorrhea to exclude csf. At her 05/20 virtual visit she reported doing well as she had been able to get increased sleep while not currently working. She saw her primary eye doctor Dr. 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 She was still experiencing some paresthesias on the reduced diamox dose of 1G twice a day - intermittently present for example when cold. She still reported bilateral pulsatile tinnitus. The headaches had decreased in frequency and severity - with positional worsening reported though fortunately not waking her up overnight. She denied transient visual obscurations or nidhi binocular diplopia. Since she had been doing well on that dose with unremarkable repeat BMP at last visit I had her remain on that dosing for the time being with refill sent to her pharmacy on file. MRV of the brain with and without contrast did not reveal an alternative structural etiology underlying the patient's symptoms with only subtle suggestion of intracranial hypertension - with left transverse venous sinus stenosis again noted. Images were reviewed with the patient in detail. I reached out to my colleagues in neurosurgery and NeuroIR regarding next steps. Neurosurgery requested repeat lumbar puncture on which the opening pressure was recorded at 22 cm H2O. ASSESSMENT/PLAN: (G93.2) IIH (idi (more content not included)...[facility] 07-02-2024 History of Present illness Narrative* Mikael Colón MD - 07/02/2024 2:26 PM EDT Omar Serrano is a 38 year old right-handed woman [...] She also reported blurry vision from the righteye. She presented back to the ER in February 2024 and was told to increase the diamox to 1G twice a day. She then saw my Luis M colleague 03/10/24 who noted bilateral optic disc edema and referred her accordingly with instruction to increase to diamox 1.5 twice a day. She reported paresthesias when cold butwas otherwise tolerating the increased diamox dosage. Since [...] products that can provoke and worsen intracranial hypertensionincluding tetracyclines and retinols. I explained the risk of blindness with IIH and the importanceof notifying us if she were to experience any decline in vision, which would warrant immediate presentation. Beta transferrin order placed in the event she has recurrent rhinorrhea to exclude csf. At her 05/20 virtual visit she reported doing well as she had been able to get increased sleep whilenot currently working. She saw her primary eye doctor Dr. 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 She was still experiencing some paresthesias on the reduced diamox dose of 1G twice a day - intermittently present for example when cold. She still reported bilateral pulsatile tinnitus.The headaches had decreased in frequency and severity - with positional worsening reported though fortunately not waking her up overnight. She denied transient visual obscurations or nidhi binocular diplopia. Since she had been doing well on that dose with unremarkable repeat BMP at last visit I had her remain on that dosing for the time being with refill sent to her pharmacy on file. MRV of the brain with and without contrast did not reveal an alternative structural etiology underlying the patient's symptoms with only subtle suggestion of intracranial hypertension - with left transverse venous sinus stenosis again noted. Images were reviewed with the patient in detail. I reached out to my colleagues in neurosurgery and NeuroIR regarding next steps. Neurosurgery requested repeat lumbar puncture on which the opening pressure was recorded at 22 cm H2O. ASSESSMENT/PLAN: (G93.2) IIH (idiopathic intracranial hypertension) (primary encounter diagnosis) (H53.453) Other localized visual field defect, bilateral (H93.A9) Pulsatile tinnitus (R20.2) Paresthesias Today (07/02/2024) she reported no change in vision since last visit, as well as no transient visual obscurations nor binocular diplopia. She did report intermittent blurred vision that improved withblinking -- artificial tears were not being used. She additionally reported persistent bilateral pulsatile tinnitus. She had experienced headaches in the post-LP setting. She was decreased to diamox 500 mg twice a day which she was tolerating - only with paresthesias when cold. Today's repeat exam showed improvement in the best corrected visual acuity on the left, with residual blind spot enlargement on the left visual field, and otherwise good afferent visual pathway function both eyes. Her optic disc edema has decreased as compared to the March exam. She was pending cerebral angiogram with NeuroIR on 07/29 with potential stenting if indicated at that time. I placed a repeat BMP with results to be communicated via travelfox. She noted having recurrent nephrolithiasis with ongoing discomfort so I advised ER presentation andplaced a urology consult request, whose expertise is greatly appreciated. I will then plan to see her back in 3-4 months, unless concerns arise in the interim, for which shewas provided my contact information and encouraged to reach out. ER presentation is otherwise advised for any acute onset neurological deficits. Mikael Colón MD 3:18 PM 07/02/2024 FOR ADMINISTRATIVE PURPOSES ONLY: My impression of this case is based upon an assessment of the patient's subacute on chronic problems listed above that pose a threat to visual and neurologic function. 45 minutes were spent on total patient care on the day of service that includes both fmvj-vs-jeku and ugw-evfv-nm-face time. This time was separate from any of my time spent completing and interpreting the ancillary testing (such as OCT, fundus photos, visual carson) and sensorimotor exam, if applicable. This time was broken downinto: 5 minutes reviewing the patient record before the visit, 10 minutes performing a medically appropriate neuro- ophthalmic history and exam (excluding time spent on the ancillary testing and sensorimotor exam, if applicable), 5 communicating results to the patient/family, 12 minutes counseling /educating the patient, 5 minutes documenting clinical information into the electronic health recordof the patient, 2 minutes ordering tests/medications/procedures, and 6 minutes coordinating care for the patient. I communicated with Dr. Morton regarding the management of this patient. The assessment and plan were discussed extensively with the patient who was amenable and voiced understanding. documented in [facility] Hospital Discharge instructions Patient Education 06/12/2024 23:24:43 [...] the wear and tear of daily living. Certainfactors can make a hernia more likely. These [...] hernia isn t treated, it may become strangulated.This means the area loses blood supply and the tissue may . This requires emergency surgery. Youneed treatment right away. In most cases, a [...] or as directed by your healthcare provider [phone] [employer]. [address] [place] [address]. All rights reserved. This information is not intended as a substitute for professional medical care. Always follow yourhealthcare professional's instructions. 06/12/2024 23:18:10 Abdominal Pain Abdominal [...] find the cause of your pain. If needed,you will have tests. Belly pain has many [...] foods again, start with small amounts of juwu-gy-eyxfgd, low- fat foods. These include apple sauce, toast, or [...] increase stomach acid. Don't use aspirin or kypq-xow-xyomiue pain and fever medicines, if possible. This includes nonsteroidal anti-inflammatory drugs (NSAIDs). Lose excess weight. Finish eating at least 2 hours before you go to bed or lie down. Raise the head of your bed. [phone] [employer]. [address] [place] [address]. All rights reserved. This information is not intended as a substitute for professional medical care. Always follow yourhealthcare professional's instructions. Follow Up Care 06/12/2024 20:57:23 With:Rachael NAGEL Address: [address] [place], [place] [id number]- [phone] [employer] (1) When:3-5 days Comments:Schedule appointment for evaluation.Use Tylenol, Advil or Aleve for pain as needed.Use [place] as prescribed for severe pain as needed.Return to the ED if symptoms worsen. [facility] 10-03-2024 Note Discharge Instructions Thank you for allowing [facility] to assist you with your healthcare needs. The following is importantdischarge information regarding your hospital visit. Diagnosis from Today's Visit Abdominal pain What to Do Next Instructions from Your Care Team No qualifying data available. Post Acute Orders No qualifying data available. You Need to Schedule the Following Appointments Follow Up with Rachael NAGEL When:Within 3-5 days Where:[address] [place] [phone] [phone] [employer] (1) Additional Information: Schedule appointment for evaluation. Use Tylenol, Advil or Aleve for pain as needed. Use [place]field as prescribed for severe pain as needed. Return to the ED if symptoms worsen. Allergies Tape Burn Medications Please ask your primary doctor or pharmacist before taking any other medication not listed, including over the counter drugs, herbal medications, vitamins and or supplements as they may interact withyour home medications. What How Much When Why Instructions Last Dose New acetaminophen-hydrocodone (Plainfield 325- 5 mg oral tablet) 1 tab(s) [...] the wear and tear of daily living. Certainfactors can make a hernia more likely. These [...] hernia isn t treated, it may become strangulated.This means the area loses blood supply and the tissue may . This requires emergency surgery. Youneed treatment right away. In most cases, a [...] or as directed by your healthcare provider [phone] [employer]. [address] [place] [address]. All rights reserved. This information is not intended as a substitute for professional medical care. Always follow yourhealthcare professional's instructions. Abdominal Pain Abdominal pain is [...] find the cause of your pain. If needed,you will have tests. Belly pain has many [...] foods again, start with small amounts of opas-hp-knstze, low- fat foods. These include apple sauce, toast, or [...] increase stomach acid. Don't use aspirin or qxmz-qiz-aawqzxa pain and fever medicines, if possible. This includes nonsteroidal anti-inflammatory drugs (NSAIDs). Lose excess weight. Finish eating at least 2 hours before you go to bed or lie down. Raise the head of your bed. [phone] [employer]. [address] [facility], [place] [address]. All rights reserved. This information is not intended as a substitute for professional medical care. Always follow yourhealthcare professional's instructions. Additional Information VACCINATE! IT SAVES LIVES! Members of the community who have not yet received the COVID-19 vaccine and would like to receive it can visit one of [facility] vaccine clinics. There are many vaccine clinic locations within the [facility]. For locations and available times, please visit www.gettheshot.coronavirus.[place].gov/. It is important to note that some COVID mobile vaccine clinics are held outdoors and may be canceled in rainy or stormy conditions. To learn more about pediatric vaccinations (ages 5-11), we invite you to visit the [facility] webpage. [email or web address] learn more about the COVID-19 vaccine, we invite you to visit the CDC website for a list of frequently asked questions. https://www.cdc.gov/coronavirus/2019-ncov/vaccines/faq.html [facility] Patient Portal Access Instructions: Stay connected with your healthcare team and access your personal medical information anytime with the [facility] Patient Portal. If you would like a full copy of your medical records please contact the [facility] Medical Records Department Sunday through Sunday between 8a.m. and 4:30p.m. Please follow the directions below to access the portal: 1.Access the email account you provided upon registration to the hospital.2.Look for an invitation email from [facility].3.Open the email and access the invitation link: Accept Invitation to [facility]4.Fill in the required carson to create your account. Sign into www.[employer] with your username and password that you [...] you will allow to register on the [facility] Patient Portal for access to your information. You can also access the [facility] Patient Portal on the [employer] haydee. Simply click on Health Records under AddSearch and then click on the Network Intelligence logo. HOW TO SAFELY DISPOSE OF PRESCRIPTION MEDICATIONS Please use one of the following methods to safely dispose of your unused medications. 1.Use a drug disposal kit: the drug disposal pouch allows you to safely discard your old and unuseddrugs. Ask your nurse to give you one when you are discharged.2.Visit a local take-back location: Many local pharmacies and police departments have programs that collect old and unwanted prescriptiondrugs. Call your local pharmacy or go to http://Silentsoft.Somany Ceramics/8R3Cu2d to find one close to you.3.Make use of household items: Use cat litter or old coffee grounds to dispose medications if other options arenot available. Mix your drugs with these household products, seal them in an airtight container andthrow it into the garbage. Call [facility]: [phone] to be sure your drugs can be [...] drowsiness, such as benzodiazepines, also known as benzos,including diazepam and alprazolam, muscle relaxants or sleep aids. Never sell or share prescriptionopioids. This is illegal. Store opioids in a [...] aware that I should contact my doctor. Patient/Copy Chief Signature: Date/Time: Relationship to Patient: Witness Name/Signature: Date/Time: [facility] Lauraarmand [id number] Note ORIGINAL EXAMINATION: CT OF THE ABDOMEN AND PELVIS WITH WYPOJKKC53/3/2024 10:18 pm TECHNIQUE: CT of the abdomen [...] Date: 06/12/2024 11:28:39 PM Ordering Provider: OMEGA [facility] Laura [id number] Note HNO ID: [id number] Author: MARY CHOUDHURY RN Service: ? Author Type: Registered Nurse Type: Progress Notes Filed: 06/12/2024 15:28 Note Text: Spoke to patient to arrange procedure at the end of virtual visit with Dr Morton. Patient agreed to procedure 07/29/[address] Morton. She will have PACC and lab work at [facility] prior. Confirmed pharmacy for Aspirin and Clopidogrel prescriptions. Reviewed pre and post procedure instructions, stated understanding. Will also send via My Chart.[facility]10-03-2024 History of Present illness Narrative* Mary Choudhury RN - 06/12/2024 3:24 PM EDT Spoke to patient to arrange procedure at the end of virtual visit with Dr Morton. Patient agreed to procedure 07/29/[address] Morton. She will have PACC and lab work at [facility] prior. Confirmed pharmacy for Aspirin and Clopidogrel prescriptions. Reviewed pre and post procedure instructions, stated understanding. Will also send via My Chart. documented in this encounterMer[facility] Surgery Surgical operation note* Brief Op Note - Clemente Coates MD - 06/12/2024 12:25 PM EDT BRIEF OPERATIVE / PROCEDURE NOTE LOG ID: [id number] SURGERY/PROCEDURE DATE: 06/12/2024 INCISION/PROCEDURE START TIME: 12:00 PM INCISION CLOSE/PROCEDURE END TIME: 12:17 PM SURGEON(S)/PROCEDURALIST(S) AND DRUG ABUSE COUNSELOR(S): Surgeons and Role: * Clemente Coates MD - Primary * Shahnaz Chang MD No Additional Staff SURGERY/PROCEDURE(S): Diagnostic lumbar puncture ANESTHESIA: Local FINDINGS: Successful diagnostic lumbar puncture ESTIMATED BLOOD LOSS: 0 ml SPECIMENS: clear CSF, sent to lab per orders COMPLICATIONS: None CLOSURE TECHNIQUE: Primary PRE-OP/PRE-PROCEDURE DIAGNOSIS: IIHT POST-OP/POST-PROCEDURE DIAGNOSIS: Same as Preop SIGNATURE: Clemente Coates MD PATIENT NAME: Omar Serrano DATE: June 12, 2024 TIME: 12:25 PM [facility] Work Phone: 1(110) 467-766710-03-2024 Surgical operation note* Brief Op Note - Clemente Coates MD - 06/12/2024 12:25 PM EDT BRIEF OPERATIVE / PROCEDURE NOTE LOG ID: [id number] SURGERY/PROCEDURE DATE: 06/12/2024 INCISION/PROCEDURE START TIME: 12:00 PM INCISION CLOSE/PROCEDURE END TIME: 12:17 PM SURGEON(S)/PROCEDURALIST(S) AND DRUG ABUSE COUNSELOR(S): Surgeons and Role: * Clemente Coates MD - Primary * Shahnaz Chang MD No Additional Staff SURGERY/PROCEDURE(S): Diagnostic lumbar puncture ANESTHESIA: Local FINDINGS: Successful diagnostic lumbar puncture ESTIMATED BLOOD LOSS: 0 ml SPECIMENS: clear CSF, sent to lab per orders COMPLICATIONS: None CLOSURE TECHNIQUE: Primary PRE-OP/PRE-PROCEDURE DIAGNOSIS: IIHT POST-OP/POST-PROCEDURE DIAGNOSIS: Same as Preop SIGNATURE: Clemente Coates MD PATIENT NAME: Omar Serrano DATE: June 12, 2024 TIME: 12:25 PM documented in this encounterMercy [facility]24 Instructions* Patient Education - Bren Henry RN - 06/12/2024 11:50 AM EDT AMBULATORY PATIENT EDUCATION TOPIC: Survival Skills: HEALTH [...] FAMILY RESPONSE: Verbalizes understanding of: POST-PROCEDURE INSTRUCTIONS-Correct actionsto take to reduce post procedure complications FOLLOW-UP PLAN: Complete - No need for follow-up Follow-up with Primary Care SUPPLEMENTAL MATERIAL: None REFERRAL (RECOMMENDATION): None Electronically Signed By: Bren Henry RN In Department: [place] [address] [facility]10-03-2024 Miscellaneous Notes* Patient Education - Bren Henry RN - 06/12/2024 11:50 AM EDT AMBULATORY PATIENT EDUCATION TOPIC: Survival Skills: HEALTH [...] FAMILY RESPONSE: Verbalizes understanding of: POST-PROCEDURE INSTRUCTIONS-Correct actionsto take to reduce post procedure complications FOLLOW-UP PLAN: Complete - No need for follow-up Follow-up with Primary Care SUPPLEMENTAL MATERIAL: None REFERRAL (RECOMMENDATION): None Electronically Signed By: Bren Henry RN In Department: [place] [address] documented in this encounterMercy Health [facility]10-03-2024 NoteHNO ID: [id number] Author: CHULA MORTON MD Service: ? Author Type: Physician Type: Progress Notes Filed: 06/21/2024 12:13 Note Text: [facility] Virtual Visit Consultation is requested by: Mikael Colón [address] [facility] [address] I have communicated my name and active licensure. The patient's identity and physical location were verified at the time of this visit. Either the patient or their legal help desk representative has been informed of the risks and benefits of -- and alternatives to -- treatment through a remote evaluation and consents to proceed with the evaluation remotely. CEREBROVASCULAR HISTORY Omar Serrano is a 38 year old female. Reason [...] Records and neuroimaging personally reviewed by Dr. Morton. LABS Cholesterol: Cholesterol, Total (mg/dL) Date Value [...] Plan reviewed and approved by myself. 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 She is a candidate for venous sinus stenting. Natural history and treatment options discussed. Questions answered and patient would like to proceed. Will place on ASA + Plavix 1 week pre-procedure and continue 3 months post if stent (more content not included)...[facility]10-03-2024 History of Present illness Narrative* Chula Morton MD - 06/12/2024 9:45 AM EDT [facility] Virtual Visit Consultation is requested by: Mikael Colón [address] [facility] [address] I have communicated my name and active licensure. The patient's identity and physical location wereverified at the time of this visit. Either the patient or their legal help desk representative has been informed of the risks and benefits of -- and alternatives to -- treatment through a remote evaluation andconsents to proceed with the evaluation remotely. CEREBROVASCULAR HISTORY Omar Serrano is a 38 year old female. Reason [...] Records and neuroimaging personally reviewed by Dr. Morton. LABS Cholesterol: Cholesterol, Total (mg/dL) Date Value [...] the history and physical examination, reviewed imaging, addedsupplemental notes, and agree with the above documented information. Plan reviewed and approved by myself. Ms. Serrano has evidence of venous sinus stenosis in [...] patient. If there are any concerns, please donot hesitate to contact me. Chula Morton MD Vascular Neurology Endovascular Surgical Neuroradiology Cerebrovascular [facility] Discussion, counseling, coordination of care > 50% of 60 minutes. Questions asked/ answered. Follow-up with results/ adherence to plan/ continued education. Mikael Colón [address] [facility] [id number] To use this Smartlink, specify the provider ID whose address you want to display, e.g., .PROVADDR[1(where 1 is the provider ID). documented in this encounterMer[facility]09-11-2024 Telephone encounter Note * Telephone Encounter - Leslie Asencio - 05/21/2024 3:03 PM EDT Patient verified by name and . Patient accepted next available vv with Dr. Lopez for 07/15/24. Confirmed with RYAN Wilson that the patient would not be able to be seen in 2-4wks. JAQUELINE Cueva [facility]09-11-2024 Miscellaneous Notes* Telephone Encounter - Leslie Asencio - 05/21/2024 3:03 PM EDT Patient verified by name and . Patient accepted next available vv with Dr. Lopez for 07/15/24. Confirmed with RYAN Wilson that the patient would not be able to be seen in 2-4wks. JAQUELINE Cueva * Telephone Encounter - Eulalia Justice PA-C - 05/21/2024 2:[address] Dr. Lopez (next available is fine) Dr. Lopez No imaging (LP is Not needed prior) IIH documented in this encounterMer[facility]09-11-2024 Telephone encounter Note * Telephone Encounter - Eulalia Justice PA-C - 05/21/2024 2:[address]AP[address] Dr. Lopez (next available is fine) Dr. Lopez No imaging (LP is Not needed prior) IIH [facility] Work Phone: [phone]) 950-349909-11-2024 Telephone encounter Note* Telephone Encounter - Nancy Hernández - 05/21/2024 1:16 PM EDT Assessment & Plan Mikael Colón MD filed at 05/20/2024 8:49 AM Status: Signed ??This is a telemedicine visit that was performed using the [employer] virtual platform with the originating site at my work office and the distant site at the patient's home. Verbal consent to participatein a combined audio and video visit was [...] licensure. The patient's identity and physical location wereverified at the time of this visit. Either the patient or their legal help desk representative has been informed of the risks and benefits of -- and alternatives to -- treatment through a remote evaluation andconsents to proceed with the evaluation remotely. Omar Serrano is a 38 year old right-handed woman [...] She also reported blurry vision from the righteye. She presented back to the ER in February 2024 and was told to increase the diamox to 1G twice a day. She then saw my Luis M colleague 03/10/24 who noted bilateral optic disc edema and referred her accordingly with instruction to increase to diamox 1.5 twice a day. She reported paresthesias when cold butwas otherwise tolerating the increased diamox dosage. Since [...] products that can provoke and worsen intracranial hypertensionincluding tetracyclines and retinols. I explained the risk of blindness with IIH and the importanceof notifying us if she were to experience [...] personally reviewed and my interpretation is that itdid not reveal an alternative structural etiology underlying [...] advised for any acute onset neurological deficits. Mikael Colón MD 8:48 AM 05/20/2024 [facility]09-11-2024 Miscellaneous Notes* Telephone Encounter - Nancy Hernández - 05/21/2024 1:16 PM EDT Assessment & Plan Mikael Colón MD filed at 05/20/2024 8:49 AM Status: Signed ??This is a telemedicine visit that was performed using the [employer] platform with the originating site at my work office and the distant site at the patient's home. Verbal consent to participatein a combined audio and video visit was [...] licensure. The patient's identity and physical location wereverified at the time of this visit. Either the patient or their legal help desk representative has been informed of the risks and benefits of -- and alternatives to -- treatment through a remote evaluation andconsents to proceed with the evaluation remotely. Omar Serrano is a 38 year old right-handed woman [...] She also reported blurry vision from the righteye. She presented back to the ER in February 2024 and was told to increase the diamox to 1G twice a day. She then saw my Luis M colleague 03/10/24 who noted bilateral optic disc edema and referred her accordingly with instruction to increase to diamox 1.5 twice a day. She reported paresthesias when cold butwas otherwise tolerating the increased diamox dosage. Since [...] products that can provoke and worsen intracranial hypertensionincluding tetracyclines and retinols. I explained the risk of blindness with IIH and the importanceof notifying us if she were to experience [...] personally reviewed and my interpretation is that itdid not reveal an alternative structural etiology underlying [...] advised for any acute onset neurological deficits. Mikael Colón MD 8:48 AM 05/20/2024 documented in this encounterMercy Health [facility]09-11-2024 Telephone encounter Note * Telephone Encounter - Peyton Webb - 05/21/2024 10:48 AM EDT Imaging up to date in chart for the past year as all done at [facility]. [facility]09-11-2024 Miscellaneous Notes* Telephone Encounter - Peyton Webb - 05/21/2024 10:48 AM EDT Imaging up to date in chart for the past year as all done at [facility]. 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 [facility]09-10-2024 NoteHNO ID: [id number] Author: MIKAEL COLÓN MD Service: ? Author Type: Physician Type: Progress Notes Filed: 05/20/2024 08:49 Note Text: ??This is a telemedicine visit that was performed using the [employer] virtual platform with the originating site at [...] visit. Either the patient or their legal help desk representative has been informed of the risks and benefits of -- and alternatives to -- treatment through a remote evaluation and consents to proceed with the evaluation remotely. mOar Serrano is a 38 year old right-handed woman [...] she has had more (more content not included)...[facility]09-10-[facility]24 History of Present illness Narrative* Mikael Colón MD - 05/20/2024 7:00 AM EDT ??This is a telemedicine visit that was performed using the [employer] virtual platform with the originating site at my work office and the distant site at the patient's home. Verbal consent to participatein a combined audio and video visit was [...] licensure. The patient's identity and physical location wereverified at the time of this visit. Either the patient or their legal help desk representative has been informed of the risks and benefits of -- and alternatives to -- treatment through a remote evaluation andconsents to proceed with the evaluation remotely. Omar Serrano is a 38 year old right-handed woman [...] She also reported blurry vision from the righteye. She presented back to the ER in February 2024 and was told to increase the diamox to 1G twice a day. She then saw my Luis M colleague 03/10/24 who noted bilateral optic disc edema and referred her accordingly with instruction to increase to diamox 1.5 twice a day. She reported paresthesias when cold butwas otherwise tolerating the increased diamox dosage. Since [...] products that can provoke and worsen intracranial hypertensionincluding tetracyclines and retinols. I explained the risk of blindness with IIH and the importanceof notifying us if she were to experience [...] personally reviewed and my interpretation is that itdid not reveal an alternative structural etiology underlying [...] advised for any acute onset neurological deficits. Mikael Colón MD 8:48 AM 05/20/2024 FOR ADMINISTRATIVE PURPOSES ONLY: My impression of this case is based upon an assessment of the the patient's subacute on chronic problems listed above that pose a threat to visual and neurologic function. 37 minutes were spent on total patient care on the day of service that includes [id number] time and non. The majority of thistime was spent counseling and coordinating care. I communicated with her primary care physician regarding the management of this patient. The assessment and plan were discussed extensively with the patient who was amenable and voiced understanding. documented in this encounterMercy Health [facility]09-05-2024 History of Present illness Narrative* Gene Dennison RN - 05/15/2024 4:00 PM EDT Radiology Service Progress Note DATE OF SERVICE: [...] Intact SIGNATURE: Gene Dennison RN PATIENT NAME: Omar Serrano DATE: May 15, 2024 TIME: 3:26 PM * Karli Mathews, RT(R) - 05/15/2024 4:00 PM EDT Radiology Service Progress Note PATIENT NAME: Omar Serrano DATE OF SERVICE: May 15, 2024 TIME: 5:06 PM PATIENT IDENTITY VERIFICATION COMPLETED USING TWO (2) IDENTIFIERS: Name and Date of confirmedby patient verbally and Name and Date of confirmed by identification band. FALL SCREENING: Has the patient had 2 falls in the last year or 1 fall with injury or currently using an Ambulatory Assistive Device (Walker, Cane, Wheelchair, Crutches, etc.)? No PATIENT GENDER DATA: Female. status: : No status: NO. PATIENT RELEVANT IMPLANT DATA REVIEWED: Yes PATIENT PRESENTS WITH AN IMPLANTABLE OR ATTACHED PLANT ASSOCIATE: No RADIOLOGY DEPARTMENT: MR; Exam(s) Completed: Head: Sagittal Sinus MRV PERIPHERAL IV DATA: Site assessment: Clean,Dry and Intact, Site disposition Left IV in for RN to remove SIGNED BY: RT Efe(Bentley) May 15, 2024 5:06 PM documented in this encounterMercy Health [facility] Hospital09-05-2024 NoteHNO ID: [id number] Author: GENE DENNISON RN Service: Nursing Author [...] Intact SIGNATURE: Gene Dennison RN PATIENT NAME: Omar Serrano DATE: May 15, 2024 TIME: 3:26 [facility]09-05-2024 NoteHNO ID: [id number] Author: KARLI MATHEWS RT(Bentley) Service: Radiology Author Type: Technologist Type: Progress Notes Filed: 05/15/2024 17:07 Note Text: Radiology Service Progress Note PATIENT NAME: Omar Serrano DATE OF SERVICE: May 15, 2024 TIME: [...] PATIENT PRESENTS WITH AN IMPLANTABLE OR ATTACHED PLANT ASSOCIATE: No RADIOLOGY DEPARTMENT: MR; Exam(s) Completed: Head: Sagittal Sinus MRV PERIPHERAL IV DATA: Site assessment: Clean,Dry and Intact, Site disposition Left IV in for RN to remove SIGNED BY: RT Efe(R) May 15, 2024 5:06 [facility]09-05-2024 History of Present illness Narrative* Asha Brian RN - 05/15/2024 3:00 PM EDT Radiology Service Progress Note PATIENT NAME: Omar Serrano DATE OF SERVICE: May 15, 2024 TIME: [...] 15, 2024 4:18 PM documented in this encounterMercy Health [facility] Hospital09-05-2024 NoteHNO ID: [id number] Author: ASHA BRIAN RN Service: ? Author Type: Registered Nurse Type: Progress Notes Filed: 05/15/2024 16:21 Note Text: Radiology Service Progress Note PATIENT NAME: Omar Serrano DATE OF SERVICE: May 15, 2024 TIME: [...] Asha Brian RN May 15, 2024 4:18 [facility]08-26-2024 Telephone encounter Note* Telephone Encounter - Will Vasquez RN - 05/05/2024 3:54 PM EDT Radiology Service Pre Anesthesia Telephone Call PATIENT NAME: Omar Serrano DATE OF CALL: May 05, 2024 TIME: 3:54 PM Discussed anxiolysis procedure with patient for upcoming MRI on 05/15. States she thought it was IV but understands that it would be determined and ordered by the Radiologist here that day. Discussed needing to have a route sales delivery driver present. No other questions or concerns at this time. SIGNED BY: Will Vasquez RN May 05, 2024 3:54 PM [facility]08-26-2024 Miscellaneous Notes* Telephone Encounter - Will Vasquez RN - 05/05/2024 3:54 PM EDT Radiology Service Pre Anesthesia Telephone Call PATIENT NAME: Omar Serrano DATE OF CALL: May 05, 2024 TIME: 3:54 PM Discussed anxiolysis procedure with patient for upcoming MRI on 05/15. States she thought it was IV but understands that it would be determined and ordered by the Radiologist here that day. Discussed needing to have a route sales delivery driver present. No other questions or concerns at this time. SIGNED BY: Will Vasquez RN May 05, 2024 3:54 PM documented in this encounterMercy Health [facility] Hospital08-18-2024 NoteHNO ID: [id number] Author: ADWOA MOSLEY APRN.ARCHIVAL STUDIES PROFESSOR Service: ? Author Type: Nurse Practitioner Type: Progress Notes Filed: 04/27/2024 15:19 Note Text: Subjective HPI HPI Omra Serrano is a 38 year old female who [...] REPORT Comment: 4 teeth pulled No date: [facility] DELIVERY SCHEDULING ORDER ALLERGIES Tape [Adhesive [...] WRIST GENERAL 3V PA/LAT/OBL LEFT Adwoa Mosley APRN.KAYYMercy Health [facility]08-18-2024 History of Present illness Narrative* Adwoa Mosley APRN.ARCHIVAL STUDIES PROFESSOR - 04/27/2024 3:13 PM EDT Images from the original note were not included. Subjective HPI HPI Omar Serrano is a 38 year old female who presents today for CC of left wrist injury. This started 2 days ago. Has tried otc medication for relief. Symptoms are worsened by rom. Denies history of surgery or injury to left wrist. Denies numbness and tingling of left hand. Denies possibility ofbeing . .Patient presents with: Trauma: Left arm [...] SURGICAL HISTORY OF Comment: tubes in ears 2012: REPAIR UMBILICAL HERNIA No date: UNSPECIFIED ORAL SURGERY PROCEDURE, BY REPORT Comment: 4 teeth pulled No date: I DELIVERY SCHEDULING ORDER ALLERGIES Tape [Adhesive Tape [...] LEFT Adwoa Mosley APRN.KAYY documented in this encounterMercy Health [facility]08-08-2024 Nurse Note* Nora Gan MA - 04/17/2024 9:38 AM EDT Additional intake questions: Has the patient had fever, nausea, vomiting, diarrhea, constipation, fatigue for > 1 week? No Does the patient have a decreased appetite? No Does patient want to see a Director Of Diversity And Inclusion? No (yes to any of above refer patient to schedulers for dietitian appointment) ) Does patient have any new or increased numbness or tingling of extremities? No Is patient interested in fertility information? No Does patient need any prescription refills? No Does patient have an advanced directive in place? No, Patient referred to [facility]08-08-2024 Nurse Note* Nroa Gan MA - 04/17/2024 9:38 AM EDT Additional intake questions: Has the patient had fever, nausea, vomiting, diarrhea, constipation, fatigue for > 1 week? No Does the patient have a decreased appetite? No Does patient want to see a Director Of Diversity And Inclusion? No (yes to any of above refer patient to schedulers for dietitian appointment) ) Does patient have any new or increased numbness or tingling of extremities? No Is patient interested in fertility information? No Does patient need any prescription refills? No Does patient have an advanced directive in place? No, Patient referred to [facility] documented in this encounterMercy Health [facility]08-08-2024 NoteHNO ID: [id number] Author: EULALIA JUSTICE PA-C Service: ? Author Type: Physician Handle Bender Type: Progress Notes Filed: 04/17/2024 10:28 Note Text: This note was created using [employer]. Subjective Omar Serrano is a 38 year old female here for evaluation of IIH. She was initially dx'd in 2014 with recurrence in 2022. Apparently, she had lack of disc edema reported by her PCP in February of 2023. She presented to the ED in April of 2023 with worsening segovia's. She had an LP with an OP of 33. 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 She was started on diamox 500 mg bid with improvement of the segovia's. She continued to have occasional visual obscurations and blurry vision on the R. February of 2024, she noted recurrence of the pulsatile tinnitus, mostly with standing and more consistent visual obscurations. She went back to the ED and they increased the diamox to 1000mg bid. She was seen by our [place] [facility] who noted b/l disc edema, [...] Continued papilledema despite increasing doses of diamox SEGOVIA's, pulsatile tinnitus MRI shows partially empty sella [...] which included preparing to see the patient, [id number] patient care, completing clinical documentation, obtaining and/or reviewing separately obtained history, performing a medically appropriate examination, counseling and educating the patient/family/caregiver, ordering medications, tests, or procedures, communicating with other HCPs (not separately reported), independently interpreting results (not separately reported), communicating results to the patient/family/caregiver, and care coordination (not separately reported). [facility]08-08-2024 History of Present illness Narrative* Eulalia Justice PA-C - 04/17/2024 9:29 AM EDT This note was created using NoteWriter. Subjective Omar Serrano is a 38 year old female here for evaluation of IIH. She was initially dx'd in 2014 with recurrence in 2022. Apparently, she had lack of disc edema reported by her PCP in February of 2023.She presented to the ED in April of 2023 with worsening segovia's. She had an LP with an OP of 33. MRI showed partially empty sella, b/l priminence of optic nerve sheath and mild stenosis of the L distaltransverse sinus. She was started on diamox 500 mg bid with improvement of the segovia's. She continued to have occasional visual obscurations and blurry vision on the R. February of 2024, she noted recurrence of the pulsatile tinnitus, mostly with standing and more consistent visual obscurations. She went back to the ED and they increased the diamox to 1000mg bid. She was seen by our [place] [facility] who noted b/l disc edema, [...] Continued papilledema despite increasing doses of diamox SEGOVIA's, pulsatile tinnitus MRI shows partially empty sella [...] which included preparing to see the patient, [id number] patient care, completing clinical documentation, obtaining and/or reviewing separately obtained history, performing a medically appropriate examination, counseling and educating the pat ient/family/caregiver, ordering medications, tests, or procedures, communicating with other HCPs (not separately reported), independently interpreting results (not separately reported), communicatingresults to the patient/family/caregiver, and care coordination (not separately reported). documented in this encounterMercy Health [facility]07-17-2024 NoteDate of Procedure 03/26/2024. Organic Chemistry Teacher Information Rate Analyst: Maria Victoria Isaac Start time: 9:18 AM. Stop time: 9:27 AM. Interpretation Right Eye Disc edema. Left Eye Disc edema. Interval Change Right Eye Better. Left Eye Better.[id number] NoteDate of Procedure 03/26/2024. Organic Chemistry Teacher Information Rate Analyst: Start time: 8:53 AM. Stop time: 9:04 AM. I did ask if patient is allergic to adhesive or Bandages. Patient Said:NO . Reliability Right Eye Good. Left Eye Good. Interpretation Right Eye Non-specific defect. Left Eye Non-specific defect. Interval Change Right Eye Better. Left Eye Better. Notes Nonspecific areas of decreased sensitivity both [id number] NoteHNO ID: [id number] Author: MIKAEL COLÓN MD Service: ? Author Type: Physician Type: Progress Notes Filed: 03/26/2024 11:01 Note Text: Omar Serrano is a 38 year old right-handed woman who presents today for recurrent idiopathic intracranial hypertension (IIH). The patient was referred by Dr. Miesha Ruby. At initial consultation on March 26, 2024, [...] she has recurrent rhinorrhea to exclude csf. Mikael Colón MD 10:59 AM 03/26/2024 FOR ADMINISTRATIVE PURPOSES ONLY: My impression of this case is based upon an assessment of the patient's subacute on chronic problems listed above that pose a threat to visual and neurologic function. 51 minutes were spent on total patient care on the day of service that includes both jwxh-dm-drst and xuu-mukw-ir-face time. This time was separate from any [...] the patient/family, 15 mi (more content not included)...[facility] 03-26-2024 History of Present illness Narrative* Mikael Colón MD - 03/26/2024 10:23 AM EDT Omar Serrano is a 38 year old right-handed woman who presents today for recurrent idiopathic intracranial hypertension (IIH). The patient was referred by Dr. Miesha Ruby. At initial consultation on March 26, 2024, [...] 33 cm H2O. Repeat MRV/MRI showed partial emptysella, bilateral prominence of optic nerve sheath, and [...] She also reported blurry vision from the righteye. She presented back to the ER in [...] 1G twice a day given the metabolic acidosisfrom 02/19 while on just 500 mg twice [...] products that can provoke and worsen intracranial hypertensionincluding tetracyclines and retinols. I explained the risk of blindness with IIH and the importanceof notifying us if she were to experience any decline in vision, which would warrant immediate presentation. Beta transferrin order placed in the event she has recurrent rhinorrhea to exclude csf. Mikael Colón MD 10:59 AM 03/26/2024 FOR ADMINISTRATIVE PURPOSES ONLY: My impression of this case is based upon an assessment of the patient's subacute on chronic problems listed above that pose a threat to visual and neurologic function. 51 minutes were spent on total patient care on the day of service that includes both izsl-re-zvik and aho-zusq-nv-face time. This time was separate from any of my time spent completing and interpreting the ancillary testing (such as OCT, fundus photos, visual carson) and sensorimotor exam, if applicable. This time was broken downinto: 5 minutes reviewing the patient record before the visit, 10 minutes performing a medically appropriate neuro- ophthalmic history and exam (excluding time spent on the ancillary testing and sensorimotor exam, if applicable), 5 communicating results to the patient/family, 15 minutes counseling /educating the patient, 5 minutes documenting clinical information into the electronic health recordof the patient, 5 minutes ordering tests/medications/procedures, and 6 minutes coordinating care for the patient. I communicated with Dr. Ruby regarding the management of this patient. The assessmentand plan were discussed extensively with the patient who was amenable and voiced understanding. documented in this encounterMercy Health [facility]07-16-2024 NoteHNO ID: [id number] Author: ADWOA MOSLEY APRN.ARCHIVAL STUDIES PROFESSOR Service: ? Author Type: Nurse Practitioner Type: Progress Notes Filed: 03/25/2024 15:03 Note Text: Subjective HPI HPI Omar Serrano is a 38 year old female who [...] OFLOXACIN 0.3 % EAR DROPS Adwoa Mosley APRN.CNPMercy Health [facility] Hospital07-16-2024 History of Present illness Narrative* dAwoa Mosley APRN.ARCHIVAL STUDIES PROFESSOR - 03/25/2024 3:01 PM EDT Subjective HPI HPI Omar Serrano is a 38 year old female who [...] OFLOXACIN 0.3 % EAR DROPS Adwoa Mosley APRN.ARCHIVAL STUDIES PROFESSOR documented in this encounterMercy Health [facility]07-01-2024 NoteDate of Procedure 03/10/2024. Disc Right Eye Edema. Left Eye Edema. Macula Right Eye Normal. Left Eye Normal. Periphery Right Eye Normal. Left Eye Normal.[id number] NoteDate of Procedure 03/10/2024. Organic Chemistry Teacher Information Rate Analyst: nishant. Start time: 10:29 AM. Quality Right Eye Good. Left Eye Good. NFL Interpretation Right Eye RNFL Thickening. Left Eye RNFL Thickening. Ganglion Cell Layer Thickness Right Eye Normal. Left Eye Diffuse loss. Interval Change Right Eye Worse. Left Eye Worse.[id number] NoteDate of Procedure 03/10/2024. Organic Chemistry Teacher Information Rate Analyst: nishant. Start time: 10:29 AM. Reliability Right Eye Good. Left Eye Good. Interpretation Right Eye Non-specific defect. Left Eye Non-specific defect. Interval Change Right Eye Stable. Left Eye Stable.[id number] NoteHNO ID: [id number] Author: MIESHA RUBY MD Service: ? Author Type: Physician Type: Progress Notes Filed: 03/11/2024 09:08 Note Text: Last eval lystad 04/[address] Rc Novak ([facility]) ;last 02/13/2024 ED follow up from 02/20/24: [...] by others. I have seen and examined Omar Serrano. I have discussed the case and the management of this patient's care with the Resident/Fellow, if applicable. I also have reviewed and agree with the assessment and plan as stated above and agree with all of its relevant components.[facility]07-01-2024 History of Present illness Narrative* Miesha Ruby MD - 03/10/2024 10:57 AM EDT Last eval lystad 04/[address] Rc Novak ([facility]) ;last 02/13/2024 ED follow up from 02/20/24: diamox increased to 1g BID, CT brain unremarkable MRV/MRI 04/2023: partial empty sella, bilateral prominence of optic nerve sheath, and mild stenosis of left distal transverse sinus. 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 I have seen and examined Omar Serrano. I have discussed the case and the management of this patient's care with the Resident/Fellow, if applicable. I also have reviewed and agree with the assessment and plan as stated above and agree withall of its relevant components. [facility] NoteHNO ID: [id number] Author: HATTIE FREDERICK DO Service: Neurology General Author Type: Resident Type: Plan of Care Filed: 02/20/2024 16:04 Note Text: Visuscout Images 02/19[facility] NoteHNO ID: [id number] Author: NIKITA GABRIEL RT(R) Service: Radiology Author Type: Technologist Type: Progress Notes Filed: 02/20/2024 13:16 Note Text: Radiology Service Progress Note PATIENT NAME: Omar Serrano DATE OF SERVICE: February 20, 2024 TIME: [...] PATIENT PRESENTS WITH AN IMPLANTABLE OR ATTACHED PLANT ASSOCIATE: No RADIOLOGY DEPARTMENT: CT; Exam(s) Completed: Brain PERIPHERAL IV DATA: Not applicable SIGNED BY: RT Jo(R) February 20, 2024 1:16 [facility]06-11-2024 Telephone encounter Note* Telephone Encounter - Marianela Haji RN - 02/19/2024 3:39 PM EDT Patient calling regarding concern for worsening pain/pressure in eyes. Patient states she missed ophthalmology appointment today due to miscommunication. Conferenced to Beba in provider office at phone number ([phone]) for assistance. GO TO THE EMERGENCY ROOM OR CALL 911 IF: * You develop any new symptoms * Your condition worsens * You are concerned or anxious about your condition for any other reason. [facility]06-11-2024 Miscellaneous Notes* Telephone Encounter - Marianela Haji RN - 02/19/2024 3:39 PM EDT Patient calling regarding concern for worsening pain/pressure in eyes. Patient states she missed ophthalmology appointment today due to miscommunication. Conferenced to Beba in provider office at phone number ([phone]) for assistance. GO TO THE EMERGENCY ROOM OR CALL 911 IF: * You develop any new symptoms * Your condition worsens * You are concerned or anxious about your condition for any other reason. [facility] Hospital Discharge instructions Patient Education 02/09/2024 10:50:45 Kidney Stone, Passed Kidney Stone, Passed A kidney stone (nephrolithiasis) starts as tiny crystals that form inside the kidney where urine ismade. Most kidney stones enlarge to about 1/8 [...] is to produce 1.5 to 2 quarts ofalmost colorless urine per 24 hours. Unless another [...] hours after your pain stops. Save any stonethat you find in the strainer and bring it to your healthcare provider for analysis. If you do not collect a stone, a 24- hour urine specimen can be done at a [...] a normal calcium diet and talk with yourhealthcare provider if you are taking calcium supplements. It may be detrimental to lower your calcium intake. New research shows that eating calcium-rich and oxalate-rich foods together lowers your risk of stones. This is because eating these foods together binds the minerals in the stomach and int estines before they can reach the kidneys. Limit [...] calcium-rich foods. These foods include dairy, dark leafygreens, soy products, calcium- enriched foods, and others. Reduce the amount of [...] Even if you don't collect the kidney stone,it is possible to analyze a 24-hour urine collection for the cause of this stone. Discuss this withyour healthcare provider. If you had an X-ray, [...] for 8 hours or increasing bladder pressure 7420-2241 [employer]. [address] [place] [address], [place] [address]. All rights reserved. This information is not intended as a substitute for professional medical care. Always follow yourhealthcare professional's instructions. Follow Up Care 02/09/2024 09:38:24 With:Keep your appointment with urology as scheduled. Address:Unknown When:2-4 days Comments:Return to ED if symptoms worsen [facility] 06-01-2024 Note Discharge Instructions Thank you for allowing [facility] to assist you with your healthcare needs. The following is importantdischarge information regarding your hospital visit. What to [...] and or supplements as they may interact withyour home medications. What How Much When Instructions [...] skin rash, fever, swollen glands, muscle aches, severeweakness, unusual bruising, or yellowing of your skin [...] stomach pain, loss of appetite, dark urine, alex- colored stools, jaundice (yellowing of the skin or [...] may report side effects to FDA at 6-953-GYQ-1394. What other drugs will affect naproxen? Ask your doctor before using naproxen if you take an antidepressant. Taking certain antidepressantswith an NSAID may cause you to bruise [...] drugs may affect naproxen, including prescription and wbfg-jix-srunrtp medicines, vitamins, and herbal products. Not all [...] to ensure that the information provided by [employer]. ('[employer]') is accurate, up-to-date, and complete, but no guarantee is made to that effect. Drug information contained herein may be time sensitive. [employer] information has been compiled for use by healthcare practitioners and consumers in the [place] and therefore [employer] does not warrant that uses outside of the [place] are appropriate, unless specifically indicated otherwise. [employer] drug information does not endorse drugs, diagnose patients or recommend therapy. [employer] drug information isan informational resource designed to assist licensed healthcare practitioners in caring for their p atients and/or to serve consumers viewing this service as a supplement to, and not a substitute for, the expertise, skill, knowledge and judgment of healthcare practitioners. The absence of a warningfor a given drug or drug combination in no way should be construed to indicate that the drug or drug combination is safe, effective or appropriate for any given patient. [employer] does not assume any responsibility for any aspect of healthcare administered with the aid of information [employer] provides. The information contained herein is not intended to cover all possible uses, directions, precautions, warnings, drug interactions, allergic reactions, or adverse effects. If you have questions about the drugs you are taking, check with your doctor, nurse or pharmacist. Copyright 3915-9571 [employer]. Version: 22.. Revision Date: 04/12/2023. Education Materials Kidney Stone, Passed A kidney stone (nephrolithiasis) starts as tiny crystals that form inside the kidney where urine ismade. Most kidney stones enlarge to about 1/8 [...] is to produce 1.5 to 2 quarts ofalmost colorless urine per 24 hours. Unless another [...] hours after your pain stops. Save any stonethat you find in the strainer and bring it to your healthcare provider for analysis. If you do not collect a stone, a 24- hour urine specimen can be done at a [...] a normal calcium diet and talk with yourhealthcare provider if you are taking calcium supplements. It may be detrimental to lower your calcium intake. New research shows that eating calcium-rich and oxalate-rich foods together lowers your risk of stones. This is because eating these foods together binds the minerals in the stomach and int estines before they can reach the kidneys. Limit [...] calcium-rich foods. These foods include dairy, dark leafygreens, soy products, calcium- enriched foods, and others. Reduce the amount of [...] Even if you don't collect the kidney stone,it is possible to analyze a 24-hour urine collection for the cause of this stone. Discuss this withyour healthcare provider. If you had an X-ray, [...] for 8 hours or increasing bladder pressure [id number] [employer]. [address] [place] [address]. All rights reserved. This information is not intended as a substitute for professional medical care. Always follow yourhealthcare professional's instructions. Additional Information VACCINATE! IT SAVES LIVES! Members of the community who have not yet received the COVID-19 vaccine and would like to receive it can visit one of [facility] vaccine clinics. There are many vaccine clinic locations within the [facility]. For locations and available times, please visit www.gettheshot.coronavirus.[place].gov/. It is important to note that some COVID mobile vaccine clinics are held outdoors and may be canceled in rainy or stormy conditions. To learn more about pediatric vaccinations (ages 5-11), we invite you to visit the [facility] webpage. https://www.[email or web address]/pages/[email or web address]-Lztcbjyvapa-Zyytkptfza-Dwvly-[email or web address] stions.htmlTo learn more about the COVID-19 vaccine, we invite you to visit the CDC website for a list of frequently asked questions. https://www.cdc.gov/coronavirus/2019-ncov/vaccines/faq.html [facility] Patient Portal Access Instructions: Stay connected with your healthcare team and access your personal medical information anytime with the [facility] Patient Portal. If you would like a full copy of your medical records please contact the [facility] Medical Records Department Sunday through Sunday between 8a.m. and 4:30p.m. Please follow the directions below to access the portal: 1.Access the email account you provided upon registration to the [facility].2.Look for an invitation email from [facility].3.Open the email and access the invitation link: Accept Invitation to [facility]4.Fill in the required carson to create your account. Sign into www.[email or web address] Pop with your username and password that you [...] you will allow to register on the [facility] Patient Portal for access to your information. You can also access the [facility] Patient Portal on the [employer] haydee. Simply click on Health Records under AddSearch and then click on the [employer] logo. HOW TO SAFELY DISPOSE OF PRESCRIPTION MEDICATIONS Please use one of the following methods to safely dispose of your unused medications. 1.Use a drug disposal kit: the drug disposal pouch allows you to safely discard your old and unuseddrugs. Ask your nurse to give you one when you are discharged.2.Visit a local take-back location: Many local pharmacies and police departments have programs that collect old and unwanted prescriptiondrugs. Call your local pharmacy or go to http://[employer]/8Z7Zj5y to find one close to you.3.Make use of household items: Use cat litter or old coffee grounds to dispose medications if other options arenot available. Mix your drugs with these household products, seal them in an airtight container andthrow it into the garbage. Call [facility]: [phone] to be sure your drugs can be [...] drowsiness, such as benzodiazepines, also known as benzos,including diazepam and alprazolam, muscle relaxants or sleep aids. Never sell or share prescriptionopioids. This is illegal. Store opioids in a secure place and out of reach of others (including children, family, friends and visitors). The last page(s) of this document has been signed and retained as a CHART COPY Signatures Patient Education Materials Kidney Stone, Passed Medication Leaflets naproxen My discharge plan and instructions have been reviewed and explained to me and I,OMAR GOMEZ understand my current condition and have read and understand these discharge instructions. I have received a written copy of the plan/instructions. If I have questions, I am aware that I should contact my doctor. Patient/Copy Chief Signature: Date/Time: Relationship to Patient: Witness Name/Signature: Date/Time: [facility]06-01-2024 Note ORIGINAL EXAMINATION: CT OF THE ABDOMEN [...] Sign Date: 02/09/2024 10:33:24 AM Ordering Provider: [facility]05-21-2024 Hospital Discharge instructions Patient Education 01/28/2024 23:08:54 [...] the pain will often stop. But it maycome back as the stone continues to pass [...] another one in the future. There are 4types of kidney stones. Eighty percent are calcium stones mostly calcium oxalate but also some withcalcium phosphate. The other 3 types include uric [...] stones dissolve into sand-like particles and pass rightthrough the strainer. In that case, you won [...] disease, talk with your healthcare provider before takingthese medicines. Also talk with your provider if you've had a stomach ulcer or GI bleeding. Preventing stones Each year for the next 5 to 7 years, you are at risk that a new stone will form. Your risk is a 50%chance over this time period. The risk is [...] advice until the cause of your stone isfound. Things that help: The most important thing [...] for stones by binding the minerals in thestomach and intestines before they can reach the [...] your diet may lower your risk for uricacid stones. Avoid excess sugar (sucrose) and fructose [...] for 8 hours and increasing bladder pressure 5739-8967 [employer]. [address] [place] [address], [place] [address]. All rights reserved. This information is not intended as a substitute for professional medical care. Always follow yourhealthcare professional's instructions. Follow Up Care 01/28/2024 19:41:00 With:LETICIA REN MD Address: [address] [place], [place] [address] [address] [place] [address] [phone] When:2-4 days [facility] 05-20-2024 Emergency department Discharge summary Discharge Instructions Thank you for allowing [facility] to assist you with your healthcare needs. The following is importantdischarge information regarding your hospital visit. Diagnosis from Today's Visit Kidney stone What to Do Next Instructions from Your Care Team Discharge Return to Work, School, or Sports (Return to Work, School, or Sports) - Ordered -- 01/30/24, May return to: work, 01/28/24 23:09:00 EDT Post Acute Orders No qualifying data available. You Need to Schedule the Following Appointments Follow Up with LETICIA REN MD When: When:Within 2-4 days [facility] [address] [place] [address] [phone] Allergies Tape Burn Medications Please ask your primary doctor or pharmacist before taking any other medication not listed, including over the counter drugs, herbal medications, vitamins and or supplements as they may interact withyour home medications. What How Much When Why [...] the pain will often stop. But it maycome back as the stone continues to pass [...] another one in the future. There are 4types of kidney stones. Eighty percent are calcium stones mostly calcium oxalate but also some withcalcium phosphate. The other 3 types include uric [...] stones dissolve into sand-like particles and pass rightthrough the strainer. In that case, you won [...] disease, talk with your healthcare provider before takingthese medicines. Also talk with your provider if you've had a stomach ulcer or GI bleeding. Preventing stones Each year for the next 5 to 7 years, you are at risk that a new stone will form. Your risk is a 50%chance over this time period. The risk is [...] advice until the cause of your stone isfound. Things that help: The most important thing [...] for stones by binding the minerals in thestomach and intestines before they can reach the [...] your diet may lower your risk for uricacid stones. Avoid excess sugar (sucrose) and fructose [...] for 8 hours and increasing bladder pressure [id number] [employer]. [address] [place] [address], [place] [address]. All rights reserved. This information is not intended as a substitute for professional medical care. Always follow yourhealthcare professional's instructions. Additional Information VACCINATE! IT SAVES LIVES! Members of the community who have not yet received the COVID-19 vaccine and would like to receive it can visit one of [facility] vaccine clinics. There are many vaccine clinic locations within the [facility]. For locations and available times, please visit www.[email or web address].[place].gov/. It is important to note that some COVID mobile vaccine clinics are held outdoors and may be canceled in rainy or stormy conditions. To learn more about pediatric vaccinations (ages 5-11), we invite you to visit the [facility] webpage. https://[email or web address]/[email or web address] [email or web address].htmlTo learn more about the COVID-19 vaccine, we invite you to visit the CDC website for a list of frequently asked questions. https://www.cdc.gov/coronavirus/2019-ncov/vaccines/faq.html [facility] Patient Portal Access Instructions: Stay connected with your healthcare team and access your personal medical information anytime with the [facility] Patient Portal. If you would like a full copy of your medical records please contact the [facility] Medical Records Department Sunday through Sunday between 8a.m. and 4:30p.m. Please follow the directions below to access the portal: 1.Access the email account you provided upon registration to the hospital.2.Look for an invitation email from [facility].3.Open the email and access the invitation link: Accept Invitation to [facility]4.Fill in the required carson to create your account. Sign into www.[employer] with your username and password that you [...] you will allow to register on the [facility] Patient Portal for access to your information. You can also access the [facility] Patient Portal on the [employer] haydee. Simply click on Health Records under AddSearch and then click on the [employer] logo. HOW TO SAFELY DISPOSE OF PRESCRIPTION MEDICATIONS Please use one of the following methods to safely dispose of your unused medications. 1.Use a drug disposal kit: the drug disposal pouch allows you to safely discard your old and unuseddrugs. Ask your nurse to give you one when you are discharged.2.Visit a local take-back location: Many local pharmacies and police departments have programs that collect old and unwanted prescriptiondrugs. Call your local pharmacy or go to http://Silentsoft.[employer]/2C3Hq9n to find one close to you.3.Make use of household items: Use cat litter or old coffee grounds to dispose medications if other options arenot available. Mix your drugs with these household products, seal them in an airtight container andthrow it into the garbage. Call [facility]: [phone] to be sure your drugs can be [...] drowsiness, such as benzodiazepines, also known as benzos,including diazepam and alprazolam, muscle relaxants or sleep aids. Never sell or share prescriptionopioids. This is illegal. Store opioids in a secure place and out of reach of others (including children, family, friends and visitors). The last page(s) of this document has been signed and retained as a CHART COPY Signatures Patient Education Materials Kidney Stone w/ Colic Medication Leaflets My discharge plan and instructions have been reviewed and explained to me and I,OMAR GOMEZ understand my current condition and have read and understand these discharge instructions. I have received a written copy of the plan/instructions. If I have questions, I am aware that I should contact my doctor. Patient/Copy Chief Signature: Date/Time: Relationship to Patient: Witness Name/Signature: Date/Time: [facility]05-20-2024 Note ORIGINAL EXAMINATION: CT OF THE ABDOMEN [...] Sign Date: 01/28/2024 10:50:14 PM Ordering Provider: [facility]04-30-2024 Instructions* Patient Instructions* Ayleen Pichardo - 01/08/2024 3:02 PM EDT Images from the original note were not included. Powerstep Original Full length. Can purchase at [facility] and boots,shoes and more here in [place], [employer] in [place] or [place]. Also can find in [place] in [facility]. Powersteps can also be purchased online, [...] in younger people who are on their feeta lot, such as athletes or soldiers. The plantar fascia is a strong band of connective tissue that extends from the base of the toes, along the bottom of the foot, to the bottom of the heel (calcaneous bone); it acts like a bowstring tomaintain the arch of the foot. What are heel spurs? The inflammatory reaction of the heel bone may produce spike-like projections of new bone, called heel spurs. The spurs sometimes show on X-rays. They neither cause the initial pain nor do they causethe initial problem. However, later, having to walk [...] time on their feet, such as nurses, tuft machine operator/waiters, andmail carriers, often experience plantar fasciitis. Athletes involved [...] Those who are overweight are prone to plantarfasciitis. This is true even for sedentary people [...] feet (rolled inward) * Sudden increase in activity* Family tendency * Poor shoe support * Worn out or poorly fitted shoes * Increasing age * Walking,standing or running for long periods of time, especially on hard surfaces. How is the Injury Treated? Rest Your Feet: Limit, or if possible, stop activities that are causing your heel pain. Try to avoid running or walking on hard surfaces, such as concrete. Use pain as your guide. If your foot is toopainful, rest it. Ice: Ice the sore area for 30 to 60 minutes, several times a day, to reduce inflammation and relieve pain. Apply a plastic bag of crushed ice (or a bag of frozen peas) over a towel. Ice the sore areafor 15 minutes after activity/exercise. Application of heat is not generally recommended, as heat ex pands the bone and connective tissue, perhaps exerting greater pressure on nerves and thereby increasing pain. If heat is used, follow it with ice. Medication: If your condition developed recently, anti-inflammatory/analgesic medication, combined with heel pads (see below) may be all that is necessary to relieve pain and to reduce inflammation. If no pain relief has occurred after 2- 3 weeks, however, your doctor may inject either [...] choose the one that fits the best. [place] with your athletic shoes to find a pair that is comfortable and causes fewer symptoms. Put your shoes on as soon as you get out of bed; going barefoot or wearing slippers may make your pain worse. Good brands include (but are not limited to): New Balance, Asics, Saucony, SAS and Merrel s. Taping: Your doctor may tape your foot to maintain the arch. This takes some of the tension off theplantar fascia. Weight Loss: If your weight is [...] chair, barefoot. Place the ankle of the affectedfoot on your opposite knee. Using the same [...] and repeat the exercise. [facility] History of Present illness Narrative* Ayleen Pichardo - 01/08/2024 2:56 PM EDT Consultation requested by Dr. Hernandez for an opinion regarding left ankle pain. [...] pain so she went to the ER ([facility]). She was recommended air cast, rest and nsaid. Pain failed to improve. Patient later presented to urgent care a few weeks later. She was recmmended the same treatment She continues to use the air cast but only off and on. She states the air cast is hard to wear witha work boot. Patient is currently taking ibuprofen [...] consider steroid injection. Ayleen Pichardo DPM Podiatry [address] [facility] [address] Dept: [phone] Dept * Thi Jones LPN - 01/08/2024 2:46 PM EDT AMB ROOMING INTAKE FLOWSHEET DATA Pain Pain Level: 5 Description: Throbbing Duration Amount of Time: 5 Duration Units: Weeks Frequency: Continuous Intervention/Comfort measure: Relaxation, Reposition, Medication Patient presents with: Left Ankle - New, Swelling, Pain Thi Jones LPN documented in this encounterMer[facility]04-04-[facility] History of Present illness Narrative* Dominga May RT(R) - 12/13/2023 4:30 PM EDT Radiology Service Progress Note PATIENT NAME: Omar Serrano DATE OF SERVICE: December 13, 2023 TIME: 4:25 PM PATIENT IDENTITY VERIFICATION COMPLETED USING TWO (2) IDENTIFIERS: Name and Date of confirmedby patient verbally. FALL SCREENING: Has the patient had 2 falls in the last year or 1 fall with injury or currently using an Ambulatory Assistive Device (Walker, Cane, Wheelchair, Crutches, etc.)? No PATIENT GENDER DATA: Female. status: : No status: NO. PATIENT RELEVANT IMPLANT DATA REVIEWED: Yes PATIENT PRESENTS WITH AN IMPLANTABLE OR ATTACHED PLANT ASSOCIATE: No RADIOLOGY DEPARTMENT: General X-ray: Exam(s) Completed: Lower Extremity X- Ray(s): Ankle, Left and Foot, Left PERIPHERAL IV DATA: Not applicable SIGNED BY: Dominga May, RT(R) December 13, 2023 4:25 PM documented in this encounterMer[facility]04-04-[facility] History of Present illness Narrative* Danielle Hernandez APRN.ARCHIVAL STUDIES PROFESSOR - 12/13/2023 4:18 PM EDT This note was created using NoteWriter. Subjective Omar Serrano is a 38 year old female. 38 [...] history is provided by the patient. No humanities and languages professor was used. Trauma This is a new problem. The current episode started 1 to 4 weeks ago. The problem occurs constantly.The problem has been unchanged. Pertinent negatives include [...] M25.572 (primary diagnosis) + injury 3 weeks [employer] Seen @ [facility] But they didn't really do a good job - XR FOOT GENERAL 3V AP/LAT/OBL LEFT-negative - XR ANKLE GENERAL 3V AP/LAT/OBL LEFT-negative RICE therapy Use home aircast Ortho consult placed related to continued pain 2. 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 Fall, initial encounter - ICD9: E888.9, ICD10: W19.XXXA X 3 weeks ago Mechanical - XR FOOT GENERAL 3V AP/LAT/OBL LEFT - XR ANKLE GENERAL 3V AP/LAT/OBL LEFT Danielle Hernandez APRN.ARCHIVAL STUDIES PROFESSOR documented in this encounterMer[facility]09-[facility] Note ORIGINAL HISTORY: Pelvic pain, ovarian tumor [...] Sign Date: 05/29/2023 3:59:47 PM Ordering Provider: [facility]08-25-2023 History of Present illness Narrative* Judi Flores MD - 05/04/2023 11:50 AM EDT Reviewed Epic, chart, labs, imaging studies. Recurrent IIH Has been following with her local Ophth, Dr. Novak Last seen 02/27/23 and had no disc edema, residual pallor, Spontaneous venous pulsations are presentbilaterally. Since then has been having transient vision [...] by others. I have seen and examined Omar Serrano. I have discussed the case and the management of this patient's care with the Resident/Fellow, if applicable. I also have reviewed and agree with the assessment and plan as stated above and agree withall of its relevant components.The nature of the patient's eye disease, its relationship to systemic health, and its prognosis have been explained to the patient/family. The treatment options/risks/benefits have been discussed. Questions answered. Judi Flores MD documented in this encounterMer[facility]06-26-[facility]23 Hospital Discharge instructions Patient Education 03/05/2023 21:31:11 [...] to nausea. Constipation, diarrhea, and a fever maygo along with the pain. The pain may [...] also be good. Sports drinks may also help,especially if they are not too acidic. Don't [...] meats. These foods will pass more easily throughthe intestine. Don t have whole-grain foods, whole [...] or water and you are getting dehydrated 5425-[address] [employer] [place] [address]. All rights reserved. This information is not intended as a substitute for professional medical care. Always follow yourhealthcare professional's instructions. 03/05/2023 21:31:05 Pelvic Pain, Unknown [...] manage your pain. These can include: Taking uwuw-lzw-ymgzcvf pain medicine. Stronger pain medicine may also [...] Abnormal vaginal bleeding (especially bleeding after menopause) 9337-7873 [employer]. [address] [place] [address]. All rights reserved. This information is not intended as a substitute for professional medical care. Always follow yourhealthcare professional's instructions. Follow Up Care 03/05/2023 20:47:33 With:SEEMA BULLOCK DO Address: [address] [place] [phone] When:2-4 days [facility] 06-26-[facility]23 Note Discharge Instructions Thank you for allowing [facility] to assist you with your healthcare needs. The following is importantdischarge information regarding your hospital visit. Diagnosis from Today's Visit Abdominal pain Pain in left leg Leg pain-swelling What to Do Next Instructions from Your Care Team No qualifying data available. Post Acute Orders No qualifying data available. You Need to Schedule the Following Appointments Follow Up with SEEMA BULLOCK DO When Within 2-4 days Where: [address] [place] [phone] Allergies Tape Medications Please ask your primary doctor or pharmacist before taking any other medication not listed, including over the counter drugs, herbal medications, vitamins and or supplements as they may interact withur home medications. What How Much When Why [...] to nausea. Constipation, diarrhea, and a fever maygo along with the pain. The pain may [...] also be good. Sports drinks may also help,especially if they are not too acidic. Don't [...] meats. These foods will pass more easily throughthe intestine. Don t have whole-grain foods, whole [...] or water and you are getting dehydrated 2917-3816 [employer]. [address] [place] [address]. All rights reserved. This information is not intended as a substitute for professional medical care. Always follow yourhealthcare professional's instructions. Pelvic Pain, Uncertain Cause Pelvic [...] manage your pain. These can include: Taking ydts-lch-flkqyss pain medicine. Stronger pain medicine may also [...] Abnormal vaginal bleeding (especially bleeding after menopause) 5925-7[address] [employer]. [address] [place] [address], [place] [address]. All rights reserved. This information is not intended as a substitute for professional medical care. Always follow yourhealthcare professional's instructions. Additional Information VACCINATE! IT SAVES LIVES! Members of the community who have not yet received the COVID-19 vaccine and would like to receive it can visit one of [facility] vaccine clinics. There are many vaccine clinic locations within the [facility]. For locations and available times, please visit [email or web address]/. It is important to note that some COVID mobile vaccine clinics are held outdoors and may be canceled in rainy or stormy conditions. To learn more about pediatric vaccinations (ages 5-11), we invite you to visit the [facility] webpage. [email or web address]/[email or web address] [email or web address] learn more about the COVID-19 vaccine, we invite you to visit the CDC website for a list of frequently asked questions. https://www.cdc.gov/coronavirus/2019-ncov/vaccines/faq.html [facility] Patient Portal Access Instructions: Stay connected with your healthcare team and access your personal medical information anytime with the [facility] Patient Portal. If you would like a full copy of your medical records please contact the [facility] Medical Records Department Sunday through Sunday between 8a.m. and 4:30p.m. Please follow the directions below to access the portal: 1.Access the email account you provided upon registration to the [facility].2.Look for an invitation email from [facility].3.Open the email and access the invitation link: Accept Invitation to [facility] [employer]4.Fill in the required carson to create your account. Sign into www.[employer] with your username and password that you [...] you will allow to register on the [facility] Patient Portal for access to your information. You can also access the [facility] Patient Portal on the [employer] haydee. Simply click on Health Records under [employer] and then click on the [employer] logo. HOW TO SAFELY DISPOSE OF PRESCRIPTION MEDICATIONS Please use one of the following methods to safely dispose of your unused medications. 1.Use a drug disposal kit: the drug disposal pouch allows you to safely discard your old and unuseddrugs. Ask your nurse to give you one when you are discharged.2.Visit a local take-back location: Many local pharmacies and police departments have programs that collect old and unwanted prescriptiondrugs. Call your local pharmacy or go to [email or web address] to find one close to you.3.Make use of household items: Use cat litter or old coffee grounds to dispose medications if other options arenot available. Mix your drugs with these household products, seal them in an airtight container andthrow it into the garbage. Call [facility]: [phone] to be sure your drugs can be [...] drowsiness, such as benzodiazepines, also known as benzos,including diazepam and alprazolam, muscle relaxants or sleep aids. Never sell or share prescriptionopioids. This is illegal. Store opioids in a [...] been reviewed and explained to me and I,OMAR SERRANO understand my current condition and have read and understand these discharge instructions. I have received a written copy of the plan/instructions. If I have questions, I am aware that I should contact my doctor. Patient/Copy Chief Signature: Date/Time: Relationship to Patient: Witness Name/Signature: [facility] History of Present illness Narrative * Adwoa Mosley APRN.KAYY - 03/05/2023 7:50 PM EDT Patient triaged at [facility]. Here today with severe abdominal pain and left leg pain. Recent abdominal surgery. Was seen in ER earlier today, left leg ultrasound negative. Is in tears in pain. I discussed limitations of [facility]. I advised to call surgeons office or return to Er. documented in this [facility] Hospital Discharge instructions Patient Education 02/12/2023 23:08:29 [...] You will be given pain medicines to controlthe pain. Tiredness. This is a normal part of the recovery process. Your energy level will return to normal over the next several weeks. Problems passing stool (constipation). Follow these instructions at home: Medicines Take lgzk-jir-sfntkix and prescription medicines only as told by [...] and water are not available, use hand contracts law professor. ?Change your dressing as told by your [...] care provider may recommend that you: ?Take ckik-sto-tzuibcn or prescription medicines. ?Eat foods that are [...] 06/17/2014 Document Revised: 08/09/2018 Document Reviewed: 10/16/2017 [employer] Patient Education 2020 [employer]. 02/12/2023 23:08:15 Diagnostic Laparoscopy, Care After Laparoscopy, [...] have mild cramping and fluid coming from thevagina for a few days after the procedure. Follow these instructions at home: Medicines Take vwhe-tip-dnjhevg and prescription medicines only as told by your health care provider. If you were prescribed an antibiotic medicine, take it as told by your health care provider. Do notstop taking the antibiotic even if you start [...] and water are not available, use hand contracts law professor. ?Change your dressing as told by your [...] to keep your urine pale yellow. ?Take eeaz-eyc-cheersu or prescription medicines. ?Eat foods that are [...] 08/07/2016 Document Revised: 08/09/2018 Document Reviewed: 02/20/2018 [employer] Patient Education 2020 [employer]. 02/12/2023 23:08:15 Salpingectomy Salpingectomy Salpingectomy, also called tubectomy, is the surgical removal of one of the fallopian tubes. The fallopian tubes are where eggs travel from the ovaries to the uterus. Removing one fallopian tube doesnot prevent you from becoming . It also [...] will allow your surgeon to make several smallincisions in the abdomen instead of one large incision. A robot-assisted method that involves using a computer to control surgical instruments that are attached to robotic arms. Tell a health care provider about: Any allergies you have. All medicines you are taking, including vitamins, herbs, eye drops, creams, and riui-qrn-lbxcrhx medicines. Any problems you or family members [...] provider tells you to take them. ?Taking rzmh-wcj-moombnv medicines, vitamins, herbs, and supplements. Staying hydrated [...] for at least 4 weeks before the procedure.These products include cigarettes, e-cigarettes, and chewing tobacco. [...] blood oxygen level will be monitored until youleave the hospital. You may continue to receive [...] with an open incision, a laparoscope, or computer- controlled instruments. Depending on the type of procedure you are having, one incision or several small incisions will be made in your abdomen. Your blood pressure, heart rate, breathing rate, and blood oxygen level will be monitored until youleave the hospital. Plan to have someone take you home from the hospital or clinic. This information is not intended to replace advice given to you by your health care provider. Make sure you discuss any questions you have with your health care provider. Document Released: 01/13/2010 Document Revised: 08/18/2019 Document Reviewed: 08/18/2019 [employer] Patient Education 2020 [employer]. 02/12/2023 23:08:15 Ruptured Ectopic Ruptured Ectopic An ectopic is when a fertilized egg attaches (implants) outside of the uterus, usually linda fallopian tube. A ruptured ectopic is when [...] not treated immediately, it can lead to bloodloss, shock, or even . What are the [...] and you develop symptoms of a rupture. Theseinclude: ?Fever or chills. ?Shoulder pain. ?Vaginal bleeding. ?Nausea and vomiting. ?Severe abdominal pain or cramping. ?Feeling light-headed or fainting. Summary An ectopic is when a fertilized egg attaches (implants) outside of the uterus, usually linda fallopian tube. A ruptured ectopic is when the fallopian tube tears or bursts. Ruptured ectopic is a medical emergency. If not treated immediately, it can lead to bloodloss, shock, or even . This condition is [...] 08/24/2001 Document Revised: 08/09/2018 Document Reviewed: 11/14/2017 [employer] Patient Education 2020 [employer]. 02/12/2023 23:08:15 Ovarian Cyst Ovarian Cyst An [...] cyst. Follow these instructions at home: Take fbod-gvs-hqvlssn and prescription medicines only as told by [...] 08/27/2006 Document Revised: 11/25/2018 Document Reviewed: 01/28/2017 [employer] Patient Education 2020 [employer]. Follow Up Care 02/12/2023 17:18:26 With:SEEMA BULLOCK DO Address: [address] [place] [phone] When: Unknown Comments:Follow up in at office in 2 weeks With:SEEMA BULLOCK Address: [address] [place] [phone] Business (1) When:Within 2 Week(s) [facility] 06-05-2023 Summary of episode note Discharge Instructions Thank you for allowing [facility] to assist you with your healthcare needs. The following is importantdischarge information regarding your hospital visit. Your Care Team PHYSICIAN, NONE Your Diagnosis Abdominal pain H/O unilateral salpingectomy Ovarian cyst, left Ruptured right tubal ectopic causing hemoperitoneum Status post laparoscopy, Status post ovarian cystectomy What to do next Follow Up Appointments Follow Up with SEEMA BULLOCK DO When Why: Follow up in at office in 2 weeks Where: [address] [place] [phone] Follow Up with SEEMA BULLOCK When In 2 weeks Where: [address] [place] [phone] Business (1) The Following Activity and Diet Have Been Ordered for You Discharge Activity - Ordered -- Sexual [place] Restricted, 2 weeks, 02/12/23 22:46:00 EDT Discharge [...] and or supplements as they may interact withyour home medications. What How Much When Why Instructions Last Dose Changed acetaminophen-oxyCODONE (acetaminophen-oxyCODONE 325 mg-5 mg oral tablet) 1 tab(s) by mouth Every 4 hours as needed for for pain Status post laparoscopy Status post ovarian cystectomy Duration: 3 [facility] Changed ibuprofen (ibuprofen 600 mg oral tablet) 1 tab(s) by mouth Every 6 hours as needed for as needed for pain [facility] Changed ondansetron (Zofran 4 mg oral tablet) 1 tab(s) by mouth Every 6 hours Duration: 5 Days [facility] Unchanged LORazepam (LORazepam 0.5 mg oral [...] by mouth Once a day [facility] Information [facility] [address] [place], [place] [phone] Please take this list to your next [...] You will be given pain medicines to controlthe pain. Tiredness. This is a normal part of the recovery process. Your energy level will return to normal over the next several weeks. Problems passing stool (constipation). Follow these instructions at home: Medicines Take vrii-hzf-ywwejnt and prescription medicines only as told by [...] and water are not available, use hand contracts law professor. ? Change your dressing as told by [...] provider may recommend that you: ? Take kncl-chs-cprmiet or prescription medicines. ? Eat foods that [...] 06/17/2014 Document Revised: 08/09/2018 Document Reviewed: 10/16/2017 [employer] Patient Education 2020 [employer] Laparoscopy, Care After This sheet gives [...] have mild cramping and fluid coming from thevagina for a few days after the procedure. Follow these instructions at home: Medicines Take nksq-vws-auoxjwc and prescription medicines only as told by your health care provider. If you were prescribed an antibiotic medicine, take it as told by your health care provider. Do notstop taking the antibiotic even if you start [...] and water are not available, use hand contracts law professor. ? Change your dressing as told by [...] keep your urine pale yellow. ? Take tykh-sli-wzkdjtw or prescription medicines. ? Eat foods that [...] 08/07/2016 Document Revised: 08/09/2018 Document Reviewed: 02/20/2018 [employer] Patient Education 2020 [employer]. Salpingectomy Salpingectomy, also called tubectomy, is the surgical removal of one of the fallopian tubes. The fallopian tubes are where eggs travel from the ovaries to the uterus. Removing one fallopian tube doesnot prevent you from becoming . It also [...] will allow your surgeon to make several smallincisions in the abdomen instead of one large incision. A robot-assisted method that involves using a computer to control surgical instruments that are attached to robotic arms. Tell a health care provider about: Any allergies you have. All medicines you are taking, including vitamins, herbs, eye drops, creams, and tjqc-usz-lmsnhkq medicines. Any problems you or family members [...] tells you to take them. ? Taking uaac-xhu-lssczgm medicines, vitamins, herbs, and supplements. Staying hydrated [...] for at least 4 weeks before the procedure.These products include cigarettes, e-cigarettes, and chewing tobacco. [...] blood oxygen level will be monitored until youleave the hospital. You may continue to receive [...] with an open incision, a laparoscope, or computer- controlled instruments. Depending on the type of procedure you are having, one incision or several small incisions will be made in your abdomen. Your blood pressure, heart rate, breathing rate, and blood oxygen level will be monitored until youleave the hospital. Plan to have someone take you home from the hospital or clinic. This information is not intended to replace advice given to you by your health care provider. Make sure you discuss any questions you have with your health care provider. Document Released: 01/13/2010 Document Revised: 08/18/2019 Document Reviewed: 08/18/2019 [employer] Patient Education 2020 [employer] Ruptured Ectopic An ectopic is when a fertilized egg attaches (implants) outside of the uterus, usually linda fallopian tube. A ruptured ectopic is when [...] not treated immediately, it can lead to bloodloss, shock, or even . What are the [...] and you develop symptoms of a rupture. Theseinclude: ? Fever or chills. ? Shoulder pain. ? Vaginal bleeding. ? Nausea and vomiting. ? Severe abdominal pain or cramping. ? Feeling light-headed or fainting. Summary An ectopic is when a fertilized egg attaches (implants) outside of the uterus, usually linda fallopian tube. A ruptured ectopic is when the fallopian tube tears or bursts. Ruptured ectopic is a medical emergency. If not treated immediately, it can lead to bloodloss, shock, or even . This condition is [...] 08/24/2001 Document Revised: 08/09/2018 Document Reviewed: 11/14/2017 [employer] Patient Education 2020 [employer]. Ovarian Cyst An ovarian cyst is a [...] cyst. Follow these instructions at home: Take agyu-xte-fedebvf and prescription medicines only as told by [...] 08/27/2006 Document Revised: 11/25/2018 Document Reviewed: 01/28/2017 [employer] Patient Education 2020 [employer]. Additional Information VACCINATE! IT SAVES LIVES! Members of the community who have not yet received the COVID-19 vaccine and would like to receive it can visit one of [facility] vaccine clinics. There are many vaccine clinic locations within the [facility]. For locations and available times, please visit [email or web address] It is important to note that some COVID mobile vaccine clinics are held outdoors and may be canceled in rainy or stormy conditions. To learn more about pediatric vaccinations (ages 5-11), we invite you to visit the [facility] Childrens webpage. https://www.[email or web address].org/pages/[email or web address]-Fvbdg-Gykfcnndhco-Yncljzzjlo-Vxauy-Gac stions.htmlTo learn more about the COVID-19 vaccine, we invite you to visit the CDC website for a list of frequently asked questions.https://www.cdc.gov/coronavirus/2019-ncov/vaccines/faq.html [facility] Patient Portal Access Instructions: Stay connected with your healthcare team and access your personal medical information anytime with the [facility] Patient Portal. Please follow the directions below to create your [facility] account: 1.Access the email account you provided upon registration to the hospital/physician office.2.Look for an invitation email from [facility].3.Open the email and access the invitation link: [facility] to [facility].4.Fill in the required carson to create your account. To access your account, visit [email or web address]. Click the blue button labeled Access Patient Portal and then log in with the username and password that you created in the steps above. You will be able to view your test results, lab results, a summary of your visits, upcoming appointments and more. There is also a convenient messaging option where you can send secure messages to your p rovider. In addition, you will have the ability to download any documents or summaries to your computer and/or send the information securely to a physician. Remember that your healthcare information is confidential, so carefully consider who you will allowto register on the [facility] Patient Portal for access to your information. You can also access the [facility] Patient Portal on the [facility] haydee. Simply click on Patient Portal and then log into your account. If you would like to receive a full copy of your medical records, please contact the [facility] Medical Records Department by calling [phone], Sunday through Sunday between 8 a.m. and 4:30 p.m. HOW TO SAFELY DISPOSE OF PRESCRIPTION MEDICATIONS Please use one of the following methods to safely dispose of your unused medications. 1.Use a drug disposal kit: the drug disposal pouch allows you to safely discard your old and unuseddrugs. Ask your nurse to give you one when you are discharged.2.Visit a local take-back location: Many local pharmacies and police departments have programs that collect old and unwanted prescriptiondrugs. Call your local pharmacy or go to http://bit.Som[employer]amics/2D9Up2x to find one close to you.3.Make use of household items: Use cat litter or old coffee grounds to dispose medications if other options arenot available. Mix your drugs with these household products, seal them in an airtight container andthrow it into the garbage. Call [facility]: [phone] to be sure your drugs can be [...] been reviewed and explained to me and I,BEVERLYMIRTA OMAR Crump understand my current condition and have read and understand these discharge instructions. I have received a written copy of the plan/instructions. If I have questions, I am aware that I should contact my doctor. Patient/Copy Chief Signature: Date/Time: Relationship to Patient: Witness Name/Signature: Date/Time: [facility]06-05-2023 Anesthesiology Consult note Patient: OLIVIA SERRANOORIN Crump Age: 37 years Sex: Female : 1985 [...] by MADHAV BROWN on 02/12/2023 10:53 PM [facility]06-05-2023 Anesthesiology Consult note Patient: OMAR SERRANO Age: 37 years Sex: Female : [...] Problem list: Medical Anxiety / SNOMED CT 28392687 / Confirmed Ectopic / SNOMED CT 76669069 / Confirmed Hypertension / SNOMED CT 47813051 / Confirmed Kidney stone / SNOMED CT [id number] / Confirmed Ovarian cyst / SNOMED CT [id number] / Confirmed Possible , not confirmed / SNOMED CT [id number] / Possible, Active Problems (6) Anxiety Ectopic Hypertension Kidney stone Ovarian cyst Possible , not confirmed Histories Past Medical History: Active Anxiety (72988223) Hypertension (17242011) Ovarian cyst ([id number]), cerebral pseudotumor, Family History: Patient was adopted. History is unknown. Procedure history: section (82919576). Cholecystectomy (45216256). Hernia (567815659). Social History Social & Psychosocial Habits Alcohol [...] Last Charted Temp Oral36.7 DegC (FEB 12 17:) Resp Rate 18 br/min (FEB 12 17:) SBPH 148mmHg (FEB 12 17:) DBPC 104mmHg (FEB 12 17:) Measurements from flowsheet : Measurements 02/12/2023 17:27 EDT Height 167.6 cm Admission Weight 106.8 kg Mcmillan Body Weight 59.26 kg Pain assessment: Pain [...] ED Patient History Form 02/12/2023 18:13 EDT [place] [facility] Note (Modified) 02/12/2023 17:27 EDT Height 167.6 cm Admission Weight 106.8 kg Mcmillan Body Weight 59.26 kg Temperature Oral 36.7 [...] Level of Consciousness Alert Eye Opening Response [place] Spontaneously Best Motor Response [place] Obeys simple commands Best Verbal Response Eduin Oriented [place] Coma Score 15 Violence Risk Confused No [...] No Weight Loss No Preferred Written Language Angolan Preferred Spoken Language Angolan Tracking Group ED AO Tracking Group Tracking [...] 877.5 mIU/mL NA 02/12/2023 10:51 EDT CSummary JOHANN . Assessment and Plan [place] Society [employer] Anesthesiologists (ASA) physical status classification: Class III, E. Anesthetic Preoperative Plan Premedication: intravenous. Anesthetic technique: General. Induction: intravenously. Maintenance airway: Oral endotracheal tube. Postoperative pain management: Per surgeon. Risks discussed: nausea, vomiting, headache, sore throat, dental injury, hypotension, allergic reaction, serious complications. Informed consent: signed by patient. Digitally Signed by MADHAV BROWN on 02/12/2023 08:42 PM [facility]06-05-2023 Evaluation + Plan note Diagnostic Tests Pending * Basic Metabolic Panel 02/12/23 * Complete Blood Count 02/12/23 [facility] 05-31-2023 Hospital Discharge instructions Patient Education 02/07/2023 19:27:55 [...] the weeks after the methotrexate injection. This isto make sure your hormone level (HCG) is getting lower. This shows that the hasended and the fetus is no longer growing. [...] B9), or penicillin until your HCG level isback to zero. Don t take aspirin or other anti-inflammatory medicines, such as ibuprofen and naproxen, for 1 weekafter methotrexate treatment or until your healthcare provider [...] or as directed by your healthcare provider [id number] [employer]. [address] [place] [address], [place] [address]. All rights reserved. This information is not intended as a substitute for professional medical care. Always follow yourhealthcare professional's instructions. Follow Up Care 02/07/2023 16:56:38 With:SEEMA BULLOCK DO Address: [address] [place] [address] [address] [place] [address] [phone] [facility]2 [facility] Note Discharge Instructions Thank you for allowing [facility] to assist you with your healthcare needs. The following is importantdischarge information regarding your hospital visit. Diagnosis from [...] BULLOCK DO When Within 1-2 days Where: [address] [place] [address] [address] [place] [phone] Allergies Tape Medications Please ask your primary doctor or pharmacist before taking any other medication not listed, including over the counter drugs, herbal medications, vitamins and or supplements as they may interact withyour home medications. What How Much When Why Instructions Last Dose New oxyCODONE (oxyCODONE 5 mg oral tablet ( IMMEDIATErelease )) 1 tab(s) by mouth Every 6 [...] To use ondansetron oral soluble film (strip) (Julián): Keep the strip in the foil pouch [...] provided, or with a special dose-measuring spoon ormedicine cup. If you do not have a [...] the body--agitation, hallucinations, fever, fast heart rate, overactivereflexes, nausea, vomiting, diarrhea, loss of coordination, fainting. Common side effects may include: diarrhea or constipation; headache; drowsiness; or tired feeling. This is not a complete list of side effects and others may occur. Call your doctor for medical advice about side effects. You may report side effects to FDA at 5-261-BLT-4679. What other drugs will affect ondansetron? Ondansetron [...] interact with ondansetron. This includes prescription and biuc-xkc-jqrptqg medicines, vitamins, and herbal products. Give a [...] to ensure that the information provided by [employer]. ('Mult[employer]') is accurate, up-to-date, and complete, but no guarantee is made to that effect. Drug information contained herein may be time sensitive. [employer] information has been compiled for use by healthcare practitioners and consumers in the [place] and therefore [employer] does not warrant that uses outside of the [place] are appropriate, unless specifically indicated otherwise. [employer] drug information does not endorse drugs, diagnose patients or recommend therapy. [employer] drug information isan informational resource designed to assist licensed healthcare practitioners in caring for their p atients and/or to serve consumers viewing this service as a supplement to, and not a substitute for, the expertise, skill, knowledge and judgment of healthcare practitioners. The absence of a warningfor a given drug or drug combination in no way should be construed to indicate that the drug or drug combination is safe, effective or appropriate for any given patient. [employer] does not assume any responsibility for any aspect of healthcare administered with the aid of information [employer] provides. The information contained herein is not intended to cover all possible uses, directions, precautions, warnings, drug interactions, allergic reactions, or adverse effects. If you have questions about the drugs you are taking, check with your doctor, nurse or pharmacist. Copyright 6615-3700 [employer]. Version: 13.01. Revision Date: 06/30/2016. oxycodone (ox i KOE [...] The extended-release form of oxycodone is for nayguk-vfd-nithq treatment of pain and should not be [...] people under 18. OxyContin should not be givento a child younger than 11 years old. [...] someone with a history of drug abuse oraddiction. MISUSE CAN CAUSE ADDICTION, OVERDOSE, OR . Keep the medication in a place where others cannot get to it. Selling or giving away opioid medicine is against the law. Stop taking all other hapcqk-rtv-mqmlr opioid pain medicines when you start taking extended-releaseoxycodone. Take oxycodone with food. Swallow the capsule or tablet whole to avoid exposure to a potentially fatal overdose. Do not crush, chew, break, open, or dissolve. If you cannot swallow a capsule whole, open it and sprinkle the medicine into a spoonful of puddingor applesauce. Swallow the mixture right away without [...] suddenly. Follow your doctor's instructions about tapering yourdose. Store at room temperature, away from heat, [...] where to locate a drug take-back disposal program.If there is no take-back program, flush the [...] Poison Help line at . An opioid overdosecan be fatal, especially in a child or [...] health department. Make sure any person caring foryou knows where you keep naloxone and how [...] if you have slow breathing with long pauses,blue colored lips, or if you are hard [...] may report side effects to FDA at 5-479-VPO-5379. What other drugs will affect oxycodone? You [...] drugs may affect oxycodone. This includes prescription fncnspl-mgw-jzgnrop medicines, vitamins, and herbal products. Not all [...] to ensure that the information provided by [employer]. ('[employer]um') is accurate, up-to-date, and complete, but no guarantee is made to that effect. Drug information contained herein may be time sensitive. [employer] information has been compiled for use by healthcare practitioners and consumers in the [place] and therefore [employer]! does not warrant that uses outside of the [place] are appropriate, unless specifically indicated otherwise. [employer] drug information does not endorse drugs, diagnose patients or recommend therapy. [employer] drug information isan informational resource designed to assist licensed healthcare practitioners in caring for their p atients and/or to serve consumers viewing this service as a supplement to, and not a substitute for, the expertise, skill, knowledge and judgment of healthcare practitioners. The absence of a warningfor a given drug or drug combination in no way should be construed to indicate that the drug or drug combination is safe, effective or appropriate for any given patient. [facility] does not assume any responsibility for any aspect of healthcare administered with the aid of information [facility] provides. The information contained herein is not intended to cover all possible uses, directions, precautions, warnings, drug interactions, allergic reactions, or adverse effects. If you have questions about the drugs you are taking, check with your doctor, nurse or pharmacist. Copyright 9534-1050 Estefani [facility]Movie[facility]. Version: 14.. Revision Date: 10/07/2020. Education Materials Methotrexate for [...] the weeks after the methotrexate injection. This isto make sure your hormone level (HCG) is getting lower. This shows that the hasended and the fetus is no longer growing. [...] B9), or penicillin until your HCG level isback to zero. Don t take aspirin or other anti-inflammatory medicines, such as ibuprofen and naproxen, for 1 weekafter methotrexate treatment or until your healthcare provider [...] or as directed by your healthcare provider 2952-4050 [employer]. [address] [place] [address]. All rights reserved. This information is not intended as a substitute for professional medical care. Always follow yourhealthcare professional's instructions. Additional Information VACCINATE! IT SAVES LIVES! Members of the community who have not yet received the COVID-19 vaccine and would like to receive it can visit one of [facility] vaccine clinics. There are many vaccine clinic locations within the [facility]. For locations and available times, please visit www.gettheshot.coronavirus.[place].gov/. It is important to note that some COVID mobile vaccine clinics are held outdoors and may be canceled in rainy or stormy conditions. To learn more about pediatric vaccinations (ages 5-11), we invite you to visit the [facility] webpage. https://www.[email or web address].org/pages/5389-Cqqcy-Rnqhebghtgy-Jovnlbojny-Amnhh-Ovb stions.htmlTo learn more about the COVID-19 vaccine, we invite you to visit the CDC website for a list of frequently asked questions. https://www.cdc.gov/coronavirus/2019-ncov/vaccines/faq.html [facility] Patient Portal Access Instructions: Stay connected with your healthcare team and access your personal medical information anytime with the [facility] Patient Portal. If you would like a full copy of your medical records please contact the [facility] Medical Records Department Sunday through Sunday between 8a.m. and 4:30p.m. Please follow the directions below to access the portal: 1.Access the email account you provided upon registration to the [facility].2.Look for an invitation email from [facility].3.Open the email and access the invitation link: Accept Invitation to [facility]4.Fill in the required carson to create your account. Sign into www.[employer] with your username and password that you [...] you will allow to register on the [facility] Patient Portal for access to your information. You can also access the [facility] Patient Portal on the [employer] haydee. Simply click on Health Records under [employer] and then click on the [employer] logo. HOW TO SAFELY DISPOSE OF PRESCRIPTION MEDICATIONS Please use one of the following methods to safely dispose of your unused medications. 1.Use a drug disposal kit: the drug disposal pouch allows you to safely discard your old and unuseddrugs. Ask your nurse to give you one when you are discharged.2.Visit a local take-back location: Many local pharmacies and police departments have programs that collect old and unwanted prescriptiondrugs. Call your local pharmacy or go to http://Silentsoft.Somany [employer]amics/6J1Bb9g to find one close to you.3.Make use of household items: Use cat litter or old coffee grounds to dispose medications if other options arenot available. Mix your drugs with these household products, seal them in an airtight container andthrow it into the garbage. Call [facility]: [phone] to be sure your drugs can be [...] drowsiness, such as benzodiazepines, also known as benzos,including diazepam and alprazolam, muscle relaxants or sleep aids. Never sell or share prescriptionopioids. This is illegal. Store opioids in a secure place and out of reach of others (including children, family, friends and visitors). The last page(s) of this document has been signed and retained as a CHART COPY Signatures Patient Education Materials Methotrexate for Ectopic Medication Leaflets ondansetron (oral), oxycodone My discharge plan and instructions have been reviewed and explained to me and IZACH SHARON E understand my current condition and have read and understand these discharge instructions. I have received a written copy of the plan/instructions. If I have questions, I am aware that I should contact my doctor. Patient/Copy Chief Signature: Date/Time: Relationship to Patient: Witness Name/Signature: Date/Time: [facility]04-05-2023 History of Present illness Narrative * Cresencio Conrad PA-C - 12/13/2022 3:26 PM EDT Patient presents to [facility] care triage with a chief complaint of [...] was called and she was transferred to [facility]. 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 [facility] Evaluation + Plan note Future Appointments Appointment Date:05/23/2023 03:00:00 PM Scheduled Provider:CALISTA BAUM MD Location:HISTORICAL ARCHEOLOGIST ONC Appointment Type:Telephone [facility] Evaluation + Plan note Future Appointments Appointment Date:05/29/2023 01:00:00 PM Scheduled Provider: Location:RAD Appointment Type:US Pelvis Non-OB W/Transvaginal Appointment Date:05/31/2023 10:50:00 AM Scheduled Provider:CALISTA BAUM MD Location:HISTORICAL ARCHEOLOGIST ONC Appointment Type:SO OV Follow Up Future Scheduled Tests Radiology* US Pelvis Non-OB W/Transvaginal 05/29/23 [facility] Evaluation + Plan note Future Appointments Appointment Date:05/31/2023 10:50:00 AM Scheduled Provider:CALISTA BAUM MD Location:HISTORICAL ARCHEOLOGIST ONC Appointment Type:SO OV Follow Up [facility] Evaluation + Plan note Future Appointments Appointment Date:09/22/2024 10:00:00 AM Scheduled Provider: Location:RAD Appointment Type:US Pelvis Non-OB Complete Diagnostic Tests Pending * Urine Culture 09/19/24 Future Scheduled Tests Radiology* US Pelvis Non-OB Complete 09/22/24 * US Pelvis Non-OB W/Transvaginal 09/01/24 [facility] Evehqjrvaa note* Diagnosis Near syncope- Primary Syncope and collapse Fever, unspecified fever cause [facility] Severe pain- Primary [facility] Diagnosis IIH (idiopathic intracranial hypertension)- Primary Benign intracranial hypertension Papilledema associated with increased intracranial pressure Migraine with aura and without status migrainosus, not intractable Migraine with aura, without mention of intractable migraine without mention of status migrainosus [facility] Diagnosis Acute left ankle pain- Primary Foot pain, left Pain in limb Fall, initial encounter [facility] Diagnosis Sprain of left ankle, unspecified ligament, initial encounter- Primary Acute left ankle pain Foot pain, left Pain in limb Plantar fasciitis of left foot Plantar fascial fibromatosis [facility] Diagnosis Idiopathic intracranial hypertension- Primary Benign intracranial hypertension Iris transillumination of left eye [facility] Diagnosis Acute otitis externa of left ear, unspecified type- Primary Otorrhea of left ear Otorrhea, unspecified IIH (idiopathic intracranial hypertension)- Primary Benign intracranial hypertension Other localized visual field defect, bilateral [facility] Diagnosis IIH (idiopathic intracranial hypertension)- Primary Benign intracranial hypertension Other localized visual field defect, bilateral Pulsatile tinnitus Unspecified tinnitus History of metabolic acidosis Personal history of other endocrine, metabolic, and immunity disorders Rhinorrhea Other diseases of nasal cavity and sinuses [facility] Diagnosis IIH (idiopathic intracranial hypertension)- Primary Benign intracranial hypertension [facility]* Diagnosis Hypertension- Primary Unspecified essential [...] initial encounter- Primary [facility] Diagnosis Hypertension- Primary Unspecified essential [...] tinnitus Unspecified tinnitus [facility] Diagnosis Hypertension- Primary Unspecified essential [...] tinnitus Unspecified tinnitus [facility] Diagnosis Hypertension- Primary Unspecified essential [...] Fall, initial encounter [facility] Diagnosis Hypertension- Primary Unspecified essential [...] increased intracranial pressure [facility] Diagnosis Hypertension- Primary Unspecified essential [...] Benign intracranial hypertension [facility] Diagnosis Hypertension- Primary Unspecified essential [...] increased intracranial pressure [facility] Diagnosis Hypertension- Primary Unspecified essential [...] field defect, bilateral Pulsatile tinnitus Unspecified tinnitus Paresthesias Disturbance of skin sensation Nephrolithiasis Calculus of kidney IIH (idiopathic intracranial hypertension) Benign intracranial hypertension Papilledema associated with increased intracranial pressure [facility] Diagnosis Hypertension- Primary Unspecified essential hypertension Pain Generalized pain Post depression Mental disorders of mother, Pulmonary nodule Solitary pulmonary nodule Pulmonary nodule- Primary Solitary pulmonary nodule Post depression Mental disorders of mother, Hypertension Unspecified essential hypertension Major depressive disorder- Primary Major depressive disorder, single episode, unspecified Panic attacks Panic disorder without agoraphobia Pre-op evaluation- Primary Preoperative examination, unspecified IIH (idiopathic intracranial hypertension) Benign intracranial hypertension Papilledema associated with increased intracranial pressure Migraine with aura and without status migrainosus, not intractable Migraine with aura, without mention of intractable migraine without mention of status migrainosus Hypertension, unspecified type PTSD (post-traumatic stress disorder) Posttraumatic stress disorder Obesity due to excess calories without serious comorbidity, unspecified class Episode of recurrent major depressive disorder, unspecified depression episode severity (HCC) Difficult intravenous access Other specified conditions influencing health status IIH (idiopathic intracranial hypertension) Benign intracranial hypertension Papilledema associated with increased intracranial pressure * Assessment & Plan Note - Jenise Fam APRN.CNP - 07/25/2024 11:09 AM EST Associated Problem(s): Difficult intravenous access Assessment: Advised adequate hydration, noted to have difficulty in the past. Denied any use of central lines placed in the past. US use recommended. * Assessment & Plan Note - Jenise Fam APRN.CNP - 07/25/2024 11:02 AM EST Associated Problem(s): Major depressive disorder Assessment: complaint on mood stablizers, follows PCP. * Assessment & Plan Note - Jenise Fam APRN.CNP - 07/25/2024 10:56 AM EST Associated Problem(s): Obesity due to excess calories without serious comorbidity Assessment: Body mass index is 39.5 kg/m . * Assessment & Plan Note - Jenise Fam APRN.CNP - 07/25/2024 10:55 AM EST Associated Problem(s): PTSD (post-traumatic stress disorder) Assessment: Compliant on rx. Follows PCP. Denies any medical related triggers. * Assessment & Plan Note - Jenise Fam APRN.CNP - 07/25/2024 10:54 AM EST Associated Problem(s): Hypertension Assessment: Stable, no rx. Follows with PCP. Last 3 Encounter BP Readings: Date: BP: 07/25/2024 135/89 06/03/2024 164/76 05/15/2024 150/90[Pt here to drive pt home[ * Assessment & Plan Note - Jenise Fam APRN.CNP - 07/25/2024 10:54 AM EST Associated Problem(s): Migraine with aura and without status migrainosus, not intractable Assessment: R/t her IIH. Following with Dr. Harris, intermittent episodes. [facility] Hypertension- Primary Unspecified essential hypertension Pain Generalized pain Post depression Mental disorders of mother, Pulmonary nodule Solitary pulmonary nodule Pulmonary nodule- Primary Solitary pulmonary nodule Post depression Mental disorders of mother, Hypertension Unspecified essential hypertension Major depressive disorder- Primary Major depressive disorder, single episode, unspecified Panic attacks Panic disorder without agoraphobia Pre-op evaluation- Primary Preoperative examination, unspecified IIH (idiopathic intracranial hypertension) Benign intracranial hypertension Papilledema associated with increased intracranial pressure Migraine with aura and without status migrainosus, not intractable Migraine with aura, without mention of intractable migraine without mention of status migrainosus Hypertension, unspecified type PTSD (post-traumatic stress disorder) Posttraumatic stress disorder Obesity due to excess calories without serious comorbidity, unspecified class Episode of recurrent major depressive disorder, unspecified depression episode severity (HCC) Difficult intravenous access Other specified conditions influencing health status IIH (idiopathic intracranial hypertension)- Primary Benign intracranial hypertension IIH (idiopathic intracranial hypertension) Benign intracranial hypertension Papilledema associated with increased intracranial pressure [facility] Diagnosis Hypertension- Primary Unspecified essential hypertension Pain Generalized pain Post depression Mental disorders of mother, Pulmonary nodule Solitary pulmonary nodule Pulmonary nodule- Primary Solitary pulmonary nodule Post depression Mental disorders of mother, Hypertension Unspecified essential hypertension Major depressive disorder- Primary Major depressive disorder, single episode, unspecified Panic attacks Panic disorder without agoraphobia Pre-op evaluation- Primary Preoperative examination, unspecified IIH (idiopathic intracranial hypertension) Benign intracranial hypertension Papilledema associated with increased intracranial pressure Migraine with aura and without status migrainosus, not intractable Migraine with aura, without mention of intractable migraine without mention of status migrainosus Hypertension, unspecified type PTSD (post-traumatic stress disorder) Posttraumatic stress disorder Obesity due to excess calories without serious comorbidity, unspecified class Episode of recurrent major depressive disorder, unspecified depression episode severity (HCC) Difficult intravenous access Other specified conditions influencing health status Episode of recurrent major depressive disorder, unspecified depression episode severity (HCC)- Primary [facility] Diagnosis Hypertension- Primary Unspecified essential hypertension Pain Generalized pain Post depression Mental disorders of mother, Pulmonary nodule Solitary pulmonary nodule Pulmonary nodule- Primary Solitary pulmonary nodule Post depression Mental disorders of mother, Hypertension Unspecified essential hypertension Major depressive disorder- Primary Major depressive disorder, single episode, unspecified Panic attacks Panic disorder without agoraphobia Pre-op evaluation- Primary Preoperative examination, unspecified IIH (idiopathic intracranial hypertension) Benign intracranial hypertension Papilledema associated with increased intracranial pressure Migraine with aura and without status migrainosus, not intractable Migraine with aura, without mention of intractable migraine without mention of status migrainosus Hypertension, unspecified type PTSD (post-traumatic stress disorder) Posttraumatic stress disorder Obesity due to excess calories without serious comorbidity, unspecified class Episode of recurrent major depressive disorder, unspecified depression episode severity (HCC) Difficult intravenous access Other specified conditions influencing health status IIH (idiopathic intracranial hypertension) Benign intracranial hypertension Papilledema associated with increased intracranial pressure [facility] Diagnosis Hypertension- Primary Unspecified essential hypertension Pain Generalized pain Post depression Mental disorders of mother, Pulmonary nodule Solitary pulmonary nodule Pulmonary nodule- Primary Solitary pulmonary nodule Post depression Mental disorders of mother, Hypertension Unspecified essential hypertension Major depressive disorder- Primary Major depressive disorder, single episode, unspecified Panic attacks Panic disorder without agoraphobia Pre-op evaluation- Primary Preoperative examination, unspecified IIH (idiopathic intracranial hypertension) Benign intracranial hypertension Papilledema associated with increased intracranial pressure Migraine with aura and without status migrainosus, not intractable Migraine with aura, without mention of intractable migraine without mention of status migrainosus Hypertension, unspecified type PTSD (post-traumatic stress disorder) Posttraumatic stress disorder Obesity due to excess calories without serious comorbidity, unspecified class Episode of recurrent major depressive disorder, unspecified depression episode severity (HCC) Difficult intravenous access Other specified conditions influencing health status Central adiposity- Primary IIH (idiopathic intracranial hypertension) Benign intracranial hypertension Episode of recurrent major depressive disorder, unspecified depression episode severity (HCC) Palpitations BMI 38.0-38.9,adult Body Mass Index 38.0-38.9, adult Avoidant-restrictive food intake disorder (ARFID) Disturbance in sleep behavior Sleep disturbance, unspecified Umbilical hernia without obstruction or gangrene Umbilical hernia without mention of obstruction or gangrene [facility] Diagnosis Hypertension- Primary Unspecified essential hypertension Pain Generalized pain Post depression Mental disorders of mother, Pulmonary nodule Solitary pulmonary nodule Pulmonary nodule- Primary Solitary pulmonary nodule Post depression Mental disorders of mother, Hypertension Unspecified essential hypertension Major depressive disorder- Primary Major depressive disorder, single episode, unspecified Panic attacks Panic disorder without agoraphobia Pre-op evaluation- Primary Preoperative examination, unspecified IIH (idiopathic intracranial hypertension) Benign intracranial hypertension Papilledema associated with increased intracranial pressure Migraine with aura and without status migrainosus, not intractable Migraine with aura, without mention of intractable migraine without mention of status migrainosus Hypertension, unspecified type PTSD (post-traumatic stress disorder) Posttraumatic stress disorder Obesity due to excess calories without serious comorbidity, unspecified class Episode of recurrent major depressive disorder, unspecified depression episode severity (HCC) Difficult intravenous access Other specified conditions influencing health status IIH (idiopathic intracranial hypertension) Benign intracranial hypertension Papilledema associated with increased intracranial pressure [facility] Hypertension- Primary Unspecified essential hypertension Pain Generalized pain Post depression Mental disorders of mother, Pulmonary nodule Solitary pulmonary nodule Pulmonary nodule- Primary Solitary pulmonary nodule Post depression Mental disorders of mother, Hypertension Unspecified essential hypertension Major depressive disorder- Primary Major depressive disorder, single episode, unspecified Panic attacks Panic disorder without agoraphobia Pre-op evaluation- Primary Preoperative examination, unspecified IIH (idiopathic intracranial hypertension) Benign intracranial hypertension Papilledema associated with increased intracranial pressure Migraine with aura and without status migrainosus, not intractable Migraine with aura, without mention of intractable migraine without mention of status migrainosus Hypertension, unspecified type PTSD (post-traumatic stress disorder) Posttraumatic stress disorder Obesity due to excess calories without serious comorbidity, unspecified class Episode of recurrent major depressive disorder, unspecified depression episode severity (HCC) Difficult intravenous access Other specified conditions influencing health status IIH (idiopathic intracranial hypertension)- Primary Benign intracranial hypertension Other localized visual field defect, left eye Pulsatile tinnitus Unspecified tinnitus Disorder of intracranial venous sinus [facility] Diagnosis Hypertension- Primary Unspecified essential hypertension Pain Generalized pain Post depression Mental disorders of mother, Pulmonary nodule Solitary pulmonary nodule Pulmonary nodule- Primary Solitary pulmonary nodule Post depression Mental disorders of mother, Hypertension Unspecified essential hypertension Major depressive disorder- Primary Major depressive disorder, single episode, unspecified Panic attacks Panic disorder without agoraphobia Pre-op evaluation- Primary Preoperative examination, unspecified IIH (idiopathic intracranial hypertension) Benign intracranial hypertension Papilledema associated with increased intracranial pressure Migraine with aura and without status migrainosus, not intractable Migraine with aura, without mention of intractable migraine without mention of status migrainosus Hypertension, unspecified type PTSD (post-traumatic stress disorder) Posttraumatic stress disorder Obesity due to excess calories without serious comorbidity, unspecified class Episode of recurrent major depressive disorder, unspecified depression episode severity (HCC) Difficult intravenous access Other specified conditions influencing health status IIH (idiopathic intracranial hypertension) Benign intracranial hypertension Papilledema associated with increased intracranial pressure [facility] Diagnosis Hypertension- Primary Unspecified essential hypertension Pain Generalized pain Post depression Mental disorders of mother, Pulmonary nodule Solitary pulmonary nodule Pulmonary nodule- Primary Solitary pulmonary nodule Post depression Mental disorders of mother, Hypertension Unspecified essential hypertension Major depressive disorder- Primary Major depressive disorder, single episode, unspecified Panic attacks Panic disorder without agoraphobia Pre-op evaluation- Primary Preoperative examination, unspecified IIH (idiopathic intracranial hypertension) Benign intracranial hypertension Papilledema associated with increased intracranial pressure Migraine with aura and without status migrainosus, not intractable Migraine with aura, without mention of intractable migraine without mention of status migrainosus Hypertension, unspecified type PTSD (post-traumatic stress disorder) Posttraumatic stress disorder Obesity due to excess calories without serious comorbidity, unspecified class Episode of recurrent major depressive disorder, unspecified depression episode severity (HCC) Difficult intravenous access Other specified conditions influencing health status IIH (idiopathic intracranial hypertension)- Primary Benign intracranial hypertension Other complicated headache syndrome Intracranial vascular stenosis Cerebrovascular disease, unspecified Papilledema associated with increased intracranial pressure [facility] Diagnosis Hypertension- Primary Unspecified essential hypertension Pain Generalized pain Post depression Mental disorders of mother, Pulmonary nodule Solitary pulmonary nodule Pulmonary nodule- Primary Solitary pulmonary nodule Post depression Mental disorders of mother, Hypertension Unspecified essential hypertension Major depressive disorder- Primary Major depressive disorder, single episode, unspecified Panic attacks Panic disorder without agoraphobia Pre-op evaluation- Primary Preoperative examination, unspecified IIH (idiopathic intracranial hypertension) Benign intracranial hypertension Papilledema associated with increased intracranial pressure Migraine with aura and without status migrainosus, not intractable Migraine with aura, without mention of intractable migraine without mention of status migrainosus Hypertension, unspecified type PTSD (post-traumatic stress disorder) Posttraumatic stress disorder Obesity due to excess calories without serious comorbidity, unspecified class Episode of recurrent major depressive disorder, unspecified depression episode severity (HCC) Difficult intravenous access Other specified conditions influencing health status Recurrent incisional hernia- Primary IIH (idiopathic intracranial hypertension) Benign intracranial hypertension Episode of recurrent major depressive disorder, unspecified depression episode severity (HCC) Palpitations BMI 38.0-38.9,adult Body Mass Index 38.0-38.9, adult Central adiposity Avoidant-restrictive food intake disorder (ARFID) Disturbance in sleep behavior Sleep disturbance, unspecified Umbilical hernia without obstruction or gangrene Umbilical hernia without mention of obstruction or gangrene [facility] Diagnosis Hypertension- Primary Unspecified essential hypertension Pain Generalized pain Post depression Mental disorders of mother, Pulmonary nodule Solitary pulmonary nodule Pulmonary nodule- Primary Solitary pulmonary nodule Post depression Mental disorders of mother, Hypertension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 AP/LAT/OBL LEFT RADEX ANKLE COMPLETE MINIMUM 3 VIEWS Danielle Hernandez, DAIRY FEED WORKER.ARCHIVAL STUDIES PROFESSOR [address] [place] [address] [place] [address] Referral ID Status Reason Start Date Expiration Date V isits Requested Visits Authorized [id number] Closed Auto-Generate d Referral 12/13/2023 01/11/2025 1 1 Specialty Diagnoses / Procedures Referred By Contac t Referred To Contact XR IMAGING Diagnoses Acute left ankle pain Foot pain, left Fall, initial encounter Procedures XR FOOT GENERAL 3V AP/LAT/OBL LEFT RADEX FOOT COMPLETE MINIMUM 3 VIEWS Danielle Hernandez, DAIRY FEED WORKER.ARCHIVAL STUDIES PROFESSOR [address] [place] [address] [place] [address] Referral ID Status Reason Start Date Expiration Date V isits Requested Visits Authorized [id number] Closed Auto-Generate d Referral 12/13/2023 01/11/2025 1 1 Additional Source Comments INFORMATION SOURCE (unrecogn ized section and content) DATE CREATED AUTHOR 03/06/2018 [facility] DATE CREATED AUTHOR AUTHOR'S ORGANIZ ATION 07/07/2019 [facility] DATE CREATED AUTHOR AUTHOR'S ORGANIZ ATION 03/10/2024 [facility] ([place]) DATE CREATED AUTHOR AUTHOR'S ORGANIZ ATION 07/28/2024 [facility] DATE CREATED AUTHOR AUTHOR'S ORGANIZ ATION 01/01/2025 [facility] DATE CREATED AUTHOR AUTHOR'S ORGANIZ ATION 01/16/2025 [facility] DATE CREATED AUTHOR AUTHOR'S ORGANIZ ATION 02/06/2025 [facility] DATE CREATED AUTHOR AUTHOR'S ORGANIZ ATION 02/09/2025 [facility] Reason for Visit (unrecogniz ed section and content) Reason Comments Radiology MRI Specialty Diagnoses / Procedures Referred By Contac t Referred To Contact MR IMAGING Diagnoses IIH (idiopathic intracranial hypertension) Pulsatile tinnitus Procedures MRV BRAIN WO/W IVCON MRV BRAIN WO/W IVCON MRA; HEAD W & WO CONTRAST Mikael Colón MD [address] [place] [address] [place] [address] Referral ID Status Reason Start Date Expiration Date V isits Requested Visits Authorized [id number] Closed Auto-Generate d Referral 04/30/2024 05/30/2024 3 3 Reason Comments Headache recent discharge [facility], history of pseudo tumor cerebral, transfer from [place] Dizziness Reason Comments Reason Comments Idiopathic intracranial hypertension Reason Comments Trauma Left ankle,swelling and bruising on outside of ankle x 3 weeks Reason Comments New Swelling Pain Specialty Diagnoses / Procedures Referred By Contac t Referred To Contact Orthopedics Diagnoses Acute left ankle pain Foot pain, left Fall, initial encounter Procedures CONSULT PANEL TO ORTHOPAEDICS OFFICE/OUTPATIENT NEW HIGH MDM 60 MINUTES Danielle Hernandez, DAIRY FEED WORKER.ARCHIVAL STUDIES PROFESSOR [address] [place] [address] Referral ID Status Reason Start Date Expiration Date V isits Requested Visits Authorized [id number] Closed PCP Requested Referral 12/13/2023 12/12/2024 1 [...] [facility] [address] [place] [address] Referral ID Status Reason Start Date Expiration Date Visits Re quested Visits Authorized [id number] 1 1 Reason Comments New Patient Reason Comments IIH (idiopathic intracranial hypertensio n) Reason Comments Symptoms patient called stati ng she was recently put on blood thinners and can't hardly walk, started 3 days ago and it's worse today, patient also states she has a headache Reason Comments Anesthesia Consult Specialty Diagnoses / Procedures Referred By Contac t Referred To Contact Diagnoses IIH (idiopathic intracranial hypertension) Papilledema associated with increased intracranial pressure Procedures REFER TO PACC / [facility] - PREOPERATIVE OPTIMIZATION OFFICE/OUTPATIENT NEW HIGH MDM 60 MINUTES Meena Murray APRN.ARCHIVAL STUDIES PROFESSOR [address] [place] [address] Referral ID Status Reason Start Date Expiration Date V isits Requested Visits Authorized [id number] Closed PCP Requested Referral 07/25/2024 06/12/2025 1 1 Reason Comments Opened In Error should be refill req uest Reason Onset Date Comments Refill Request 09/02/2024 Reason Comments Medical Weight Management Specialty Diagnoses / Procedures Referred By Contac t Referred To Contact Diagnoses IIH (idiopathic intracranial hypertension) Procedures ENDOCRINE MEDICAL WEIGHT MANAGEMENT OFFICE/OUTPATIENT NEW HIGH MDM 60 MINUTES Eulalia Justice PA-C [address] [place] [address] Referral ID Status Reason Start Date Expiration Date V isits Requested Visits Authorized [id number] Closed PCP Requested Referral 04/17/2024 04/17/2025 1 1 Reason Comments Refill Request Reason Comments medication refill Reason Comments Layer Up - Other Medications Reason Comments IIH (idiopathic intracranial hypertensio n) Reason Comments Intracranial Stenosis Reason Comments Consult Specialty Diagnoses / Procedures Referred By Contac t Referred To Contact General Surgery Diagnoses IIH (idiopathic intracranial hypertension) Episode of recurrent major depressive disorder, unspecified depression episode severity (HCC) Palpitations BMI 38.0-38.9,adult Central adiposity Avoidant-restrictive food intake disorder (ARFID) Disturbance in sleep behavior Umbilical hernia without obstruction or gangrene Procedures CONSULT TO GENERAL SURGERY OFFICE/OUTPATIENT [facility] [address] [place] [address] [place] [address] Phone: tel: fax: Referral ID Status Reason Start Date Expiration Date V isits Requested Visits Authorized [id number] Closed PCP Requested Referral 09/26/2024 09/26/2025 1 1 Reason Comments 05.30.25 Cure Robotic Complex AWR 5 hours los 2 Specialty Diagnoses / Procedures [facility] To Contact [facility] Diagnoses Intracranial vascular stenosis Procedures MRV BRAIN WO/W IVCON MRA; HEAD W & WO CONTRAST Sugey Allan, DAIRY FEED WORKER.ARCHIVAL STUDIES PROFESSOR [address] [place] [address] Phone: tel: fax: [place] [address] Referral ID Status Reason Start Date Expiration Date V isits Requested Visits Authorized [id number] Closed Auto-Generate d Referral 12/26/2024 01/25/2025 1 1 Reason Comments Follow Up Specialty Diagnoses / Procedures [facility] Referred To Contact Cerebrovascular / NEUROSURGERY Diagnoses 6 mo transvenous sinus stent follow up Procedures VIDEO SPEC EST Sugey Allan, DAIRY FEED WORKER.ARCHIVAL STUDIES PROFESSOR [address] [place] [address] Phone: tel: fax: Sugey Allan, DAIRY FEED WORKER.ARCHIVAL STUDIES PROFESSOR [address] [place] [address] Phone: tel:[phone] fax:[phone] Referral ID Status Reason Start Date Expiration Date V isits Requested Visits Authorized [id number] New Request 01/13/2025 04/13/2025 1 1 Reason Comments Toothache Care Team (unrecognized sect ion and content) Care Team Personnel Name: PHYSICIAN, NONE Position: Physician Member Role: Primary Care Physician Care Team Related Persons Name: NONE, Name: BRENNA GOMEZ Address: Home [address] [place] [address] Name: TALISHA GOMEZ Name: [id number] FARRIS Source Comments (unrecognize d section and content) In the event this informatio n is protected by the Federal Confidentiality of Alcohol and Drug Abuse Patient Records regulations: The Federal rules restrict any use of the information to criminally investigate or prosecute any alcohol or drug abuse patient.[facility] HospitalIn the event this information is protected by the Federal Confidentiality of Alcohol and Drug Abuse Patient Records regulations: The Federal rules restrict any use of the information to criminally investigate or prosecute any alcohol or drug abuse patient.[facility] HospitalIn the event this information is protected by the Federal Confidentiality of Alcohol and Drug Abuse Patient Records regulations: The Federal rules restrict any use of the information to criminally investigate or prosecute any alcohol or drug abuse patient.[facility] HospitalIn the event this information is protected by the Federal Confidentiality of Alcohol and Drug Abuse Patient Records regulations: The Federal rules restrict any use of the information to criminally investigate or prosecute any alcohol or drug abuse patient.[facility] HospitalIn the event this information is protected by the Federal Confidentiality of Alcohol and Drug Abuse Patient Records regulations: The Federal rules restrict any use of the information to criminally investigate or prosecute any alcohol or drug abuse patient.[facility] HospitalIn the event this information is protected by the Federal Confidentiality of Alcohol and Drug Abuse Patient Records regulations: The Federal rules restrict any use of the information to criminally investigate or prosecute any alcohol or drug abuse patient.[facility] HospitalIn the event this information is protected by the Federal Confidentiality of Alcohol and Drug Abuse Patient Records regulations: The Federal rules restrict any use of the information to criminally investigate or prosecute any alcohol or drug abuse patient.[facility] HospitalIn the event this information is protected by the Federal Confidentiality of Alcohol and Drug Abuse Patient Records regulations: The Federal rules restrict any use of the information to criminally investigate or prosecute any alcohol or drug abuse patient.[facility] HospitalIn the event this information is protected by the Federal Confidentiality of Alcohol and Drug Abuse Patient Records regulations: The Federal rules restrict any use of the information to criminally investigate or prosecute any alcohol or drug abuse patient.[facility] HospitalIn the event this information is protected by the Federal Confidentiality of Alcohol and Drug Abuse Patient Records regulations: The Federal rules restrict any use of the information to criminally investigate or prosecute any alcohol or drug abuse patient.[facility] HospitalIn the event this information is protected by the Federal Confidentiality of Alcohol and Drug Abuse Patient Records regulations: The Federal rules restrict any use of the information to criminally investigate or prosecute any alcohol or drug abuse patient.[facility] HospitalIn the event this information is protected by the Federal Confidentiality of Alcohol and Drug Abuse Patient Records regulations: The Federal rules restrict any use of the information to criminally investigate or prosecute any alcohol or drug abuse patient.[facility] HospitalIn the event this information is protected by the Federal Confidentiality of Alcohol and Drug Abuse Patient Records regulations: The Federal rules restrict any use of the information to criminally investigate or prosecute any alcohol or drug abuse patient.[facility] HospitalIn the event this information is protected by the Federal Confidentiality of Alcohol and Drug Abuse Patient Records regulations: The Federal rules restrict any use of the information to criminally investigate or prosecute any alcohol or drug abuse patient.[facility] HospitalIn the event this information is protected by the Federal Confidentiality of Alcohol and Drug Abuse Patient Records regulations: The Federal rules restrict any use of the information to criminally investigate or prosecute any alcohol or drug abuse patient.[facility] HospitalIn the event this information is protected by the Federal Confidentiality of Alcohol and Drug Abuse Patient Records regulations: The Federal rules restrict any use of the information to criminally investigate or prosecute any alcohol or drug abuse patient.[facility] HospitalIn the event this information is protected by the Federal Confidentiality of Alcohol and Drug Abuse Patient Records regulations: The Federal rules restrict any use of the information to criminally investigate or prosecute any alcohol or drug abuse patient.[facility] HospitalIn the event this information is protected by the Federal Confidentiality of Alcohol and Drug Abuse Patient Records regulations: The Federal rules restrict any use of the information to criminally investigate or prosecute any alcohol or drug abuse patient.[facility] HospitalIn the event this information is protected by the Federal Confidentiality of Alcohol and Drug Abuse Patient Records regulations: The Federal rules restrict any use of the information to criminally investigate or prosecute any alcohol or drug abuse patient.[facility] HospitalIn the event this information is protected by the Federal Confidentiality of Alcohol and Drug Abuse Patient Records regulations: The Federal rules restrict any use of the information to criminally investigate or prosecute any alcohol or drug abuse patient.[facility] HospitalIn the event this information is protected by the Federal Confidentiality of Alcohol and Drug Abuse Patient Records regulations: The Federal rules restrict any use of the information to criminally investigate or prosecute any alcohol or drug abuse patient.[facility] HospitalIn the event this information is protected by the Federal Confidentiality of Alcohol and Drug Abuse Patient Records regulations: The Federal rules restrict any use of the information to criminally investigate or prosecute any alcohol or drug abuse patient.[facility] HospitalIn the event this information is protected by the Federal Confidentiality of Alcohol and Drug Abuse Patient Records regulations: The Federal rules restrict any use of the information to criminally investigate or prosecute any alcohol or drug abuse patient.[facility] HospitalIn the event this information is protected by the Federal Confidentiality of Alcohol and Drug Abuse Patient Records regulations: The Federal rules restrict any use of the information to criminally investigate or prosecute any alcohol or drug abuse patient.[facility] HospitalIn the event this information is protected by the Federal Confidentiality of Alcohol and Drug Abuse Patient Records regulations: The Federal rules restrict any use of the information to criminally investigate or prosecute any alcohol or drug abuse patient.[facility] HospitalIn the event this information is protected by the Federal Confidentiality of Alcohol and Drug Abuse Patient Records regulations: The Federal rules restrict any use of the information to criminally investigate or prosecute any alcohol or drug abuse patient.[facility] HospitalIn the event this information is protected by the Federal Confidentiality of Alcohol and Drug Abuse Patient Records regulations: The Federal rules restrict any use of the information to criminally investigate or prosecute any alcohol or drug abuse patient.[facility] HospitalIn the event this information is protected by the Federal Confidentiality of Alcohol and Drug Abuse Patient Records regulations: The Federal rules restrict any use of the information to criminally investigate or prosecute any alcohol or drug abuse patient.[facility] HospitalIn the event this information is protected by the Federal Confidentiality of Alcohol and Drug Abuse Patient Records regulations: The Federal rules restrict any use of the information to criminally investigate or prosecute any alcohol or drug abuse patient.[facility] HospitalIn the event this information is protected by the Federal Confidentiality of Alcohol and Drug Abuse Patient Records regulations: The Federal rules restrict any use of the information to criminally investigate or prosecute any alcohol or drug abuse patient.[facility] HospitalIn the event this information is protected by the Federal Confidentiality of Alcohol and Drug Abuse Patient Records regulations: The Federal rules restrict any use of the information to criminally investigate or prosecute any alcohol or drug abuse patient.[facility] HospitalIn the event this information is protected by the Federal Confidentiality of Alcohol and Drug Abuse Patient Records regulations: The Federal rules restrict any use of the information to criminally investigate or prosecute any alcohol or drug abuse patient.[facility] HospitalIn the event this information is protected by the Federal Confidentiality of Alcohol and Drug Abuse Patient Records regulations: The Federal rules restrict any use of the information to criminally investigate or prosecute any alcohol or drug abuse patient.[facility] HospitalIn the event this information is protected by the Federal Confidentiality of Alcohol and Drug Abuse Patient Records regulations: The Federal rules restrict any use of the information to criminally investigate or prosecute any alcohol or drug abuse patient.[facility] HospitalIn the event this information is protected by the Federal Confidentiality of Alcohol and Drug Abuse Patient Records regulations: The Federal rules restrict any use of the information to criminally investigate or prosecute any alcohol or drug abuse patient.[facility] HospitalIn the event this information is protected by the Federal Confidentiality of Alcohol and Drug Abuse Patient Records regulations: The Federal rules restrict any use of the information to criminally investigate or prosecute any alcohol or drug abuse patient.[facility] HospitalIn the event this information is protected by the Federal Confidentiality of Alcohol and Drug Abuse Patient Records regulations: The Federal rules restrict any use of the information to criminally investigate or prosecute any alcohol or drug abuse patient.[facility] HospitalIn the event this information is protected by the Federal Confidentiality of Alcohol and Drug Abuse Patient Records regulations: The Federal rules restrict any use of the information to criminally investigate or prosecute any alcohol or drug abuse patient.[facility] HospitalIn the event this information is protected by the Federal Confidentiality of Alcohol and Drug Abuse Patient Records regulations: The Federal rules restrict any use of the information to criminally investigate or prosecute any alcohol or drug abuse patient.[facility] HospitalIn the event this information is protected by the Federal Confidentiality of Alcohol and Drug Abuse Patient Records regulations: The Federal rules restrict any use of the information to criminally investigate or prosecute any alcohol or drug abuse patient.[facility] HospitalIn the event this information is protected by the Federal Confidentiality of Alcohol and Drug Abuse Patient Records regulations: The Federal rules restrict any use of the information to criminally investigate or prosecute any alcohol or drug abuse patient.[facility] HospitalIn the event this information is protected by the Federal Confidentiality of Alcohol and Drug Abuse Patient Records regulations: The Federal rules restrict any use of the information to criminally investigate or prosecute any alcohol or drug abuse patient.[facility] HospitalIn the event this information is protected by the Federal Confidentiality of Alcohol and Drug Abuse Patient Records regulations: The Federal rules restrict any use of the information to criminally investigate or prosecute any alcohol or drug abuse patient.[facility] HospitalIn the event this information is protected by the Federal Confidentiality of Alcohol and Drug Abuse Patient Records regulations: The Federal rules restrict any use of the information to criminally investigate or prosecute any alcohol or drug abuse patient.[facility] HospitalIn the event this information is protected by the Federal Confidentiality of Alcohol and Drug Abuse Patient Records regulations: The Federal rules restrict any use of the information to criminally investigate or prosecute any alcohol or drug abuse patient.[facility] HospitalIn the event this information is protected by the Federal Confidentiality of Alcohol and Drug Abuse Patient Records regulations: The Federal rules restrict any use of the information to criminally investigate or prosecute any alcohol or drug abuse patient.[facility] HospitalIn the event this information is protected by the Federal Confidentiality of Alcohol and Drug Abuse Patient Records regulations: The Federal rules restrict any use of the information to criminally investigate or prosecute any alcohol or drug abuse patient.[facility] HospitalIn the event this information is protected by the Federal Confidentiality of Alcohol and Drug Abuse Patient Records regulations: The Federal rules restrict any use of the information to criminally investigate or prosecute any alcohol or drug abuse patient.[facility] HospitalIn the event this information is protected by the Federal Confidentiality of Alcohol and Drug Abuse Patient Records regulations: The Federal rules restrict any use of the information to criminally investigate or prosecute any alcohol or drug abuse patient.[facility] HospitalIn the event this information is protected by the Federal Confidentiality of Alcohol and Drug Abuse Patient Records regulations: The Federal rules restrict any use of the information to criminally investigate or prosecute any alcohol or drug abuse patient.[facility] HospitalIn the event this information is protected by the Federal Confidentiality of Alcohol and Drug Abuse Patient Records regulations: The Federal rules restrict any use of the information to criminally investigate or prosecute any alcohol or drug abuse patient.[facility] HospitalIn the event this information is protected by the Federal Confidentiality of Alcohol and Drug Abuse Patient Records regulations: The Federal rules restrict any use of the information to criminally investigate or prosecute any alcohol or drug abuse patient.[facility] Care Teams (unrecognized sec tion and content) Manager [employer] Relationship Specialty Start Date End Date Rc Novak [address] [place], [place] [id number] Referring Ophthalmology 09/22/20 Manager [employer] Relationship Specialty Start Date End Date Rc Novak [address] [place], [place] [address] Referring Ophthalmology 09/22/20 Manager [employer] Relationship Specialty Start Date End Date Rc Novak [address] [facility] [place] [address] Referring Ophthalmology 09/22/20 Manager [employer] Relationship Specialty Start Date End Date Kemar Mantilla MD [address] [facility] [address] [place], [place] [address] PCP - General Family Medicine 09/13/23 Rc Novak MD [facility] [place], [place] [address] Referring Ophthalmology 09/22/20 Manager [employer] Relationship Specialty Start Date End Date Kemar Mantilla MD [address] [facility] [address] [place], [place] [address] PCP - General Family Medicine 09/13/23 Rc Novak MD [facility] [place], [place] [address] Referring Ophthalmology 09/22/20 Manager [employer] Relationship Specialty Start Date End Date Kemar Mantilla MD [address] [facility] [address] [place], [place] [address] PCP - General Family Medicine 09/13/23 Rc Novak MD [address] [place], [place] [address] Referring Ophthalmology 09/22/20 Manager [employer] Relationship Specialty Start Date End Date Rc Novak MD [address] [place], [place] [address]761 Referring Ophthalmology 09/22/20 Manager [employer] Relationship Specialty Start Date End Date Rc Novak MD [address] [facility] [place] [address] Referring Ophthalmology 09/22/20 Manager [employer] Relationship Specialty Start Date End Date Rc Novak MD [address] [facility] [place] [address] Referring Ophthalmology 09/22/20 Manager [employer] Relationship Specialty Start Date End Date Rc Novak MD [address] [facility] [address] Referring Ophthalmology 09/22/20 Manager [employer] Relationship Specialty Start Date End Date Rc Novak MD [facility] [facility], [place] [address] Referring Ophthalmology 09/22/20 Manager [employer] Relationship Specialty Start Date End Date Rc Novak MD [facility] [facility] [place] [address] Referring Ophthalmology 09/22/20 Manager [employer] Relationship Specialty Start Date End Date Rc Novak MD [address] [facility] [place] [address] Referring Ophthalmology 09/22/20 Manager [employer] Relationship Specialty Start Date End Date Rc Novak MD [address] [facility] [address] Referring Ophthalmology 09/22/20 Manager [employer] Relationship Specialty Start Date End Date Rc Novak MD [address] [facility] [address] Referring Ophthalmology 09/22/20 Manager [employer] Relationship Specialty Start Date End Date Rc Novak MD [address] [place], [place] [address] Referring Ophthalmology 09/22/20 Mikael Colón MD [address] [place] [address] Referring Ophthalmology 05/21/24 Manager [employer] Relationship Specialty Start Date End Date Rc Novak MD [address] [place], [place] [address] Referring Ophthalmology 09/22/20 Mikael Colón MD [address] [place] [address] Referring Ophthalmology 05/21/24 Manager [employer] Relationship Specialty Start Date End Date cR Novak MD [address] [place] [address] Referring Ophthalmology 09/22/20 Mikael Colón MD [address] [place] [address] Referring Ophthalmology 05/21/24 Manager [employer] Relationship Specialty Start Date End Date Kemar Mantilla MD [address] [place] [address] [place] [address] PCP - General Family Medicine 09/13/23 02/19/24 Rc Novak MD [address] [place] [address] Referring Ophthalmology 09/22/20 Manager [employer] Relationship Specialty Start Date End Date Rc Novak MD [address] [place] [address] Referring Ophthalmology 09/22/20 Mikael Colón MD [address] [place] [address] Referring Ophthalmology 05/21/24 Manager [employer] Relationship Specialty Start Date End Date Rc Novak MD [address] [place] [address] Referring Ophthalmology 09/22/20 Mikael Colón MD [address] [place] [address] Referring Ophthalmology 05/21/24 Manager [employer] Relationship Specialty Start Date End Date Rc Novak MD [address] [place] [address] Referring Ophthalmology 09/22/20 Mikael Colón MD [address] [place] [address] Referring Ophthalmology 05/21/24 Manager [employer] Relationship Specialty Start Date End Date Rc Novak MD [address] [place] [address] Referring Ophthalmology 09/22/20 Mikael Colón MD [address] [place] [address] Referring Ophthalmology 05/21/24 Manager [employer] Relationship Specialty Start Date End Date Rc Novak MD [address] [place] [address] Referring Ophthalmology 09/22/20 Mikael Colón MD [address] [place] [address] Referring Ophthalmology 05/21/24 Manager [employer] Relationship Specialty Start Date End Date Rc Novak MD [address] [place] [address] Referring Ophthalmology 09/22/20 Mikael Colón MD [address] [place] [address] Referring Ophthalmology 05/21/24 Manager [employer] Relationship Specialty Start Date End Date Rc Novak MD [address] [place] [address] Referring Ophthalmology 09/22/20 Mikael Colón MD [address] [place] [address] Referring Ophthalmology 05/21/24 Manager [employer] Relationship Specialty Start Date End Date Rc Novak MD [address] [place] [address] Referring Ophthalmology 09/22/20 Mikael Colón MD [address] [place] [address] Referring Ophthalmology 05/21/24 Manager [employer] Relationship Specialty Start Date End Date Rc Novak MD [address] [place] [address] Referring Ophthalmology 09/22/20 Mikael Colón MD [address] [place] [address] Referring Ophthalmology 05/21/24 Manager [employer] Relationship Specialty Start Date End Date Rc Novak MD [address] [place] [address] Referring Ophthalmology 09/22/20 Mikael Colón MD [address] [place] [address] Referring Ophthalmology 05/21/24 Manager [employer] Relationship Specialty Start Date End Date Rc Novak MD [address] [place] [address] Referring Ophthalmology 09/22/20 Mikael Colón MD [address] [place] [address] Referring Ophthalmology 05/21/24 Manager [employer] Relationship Specialty Start Date End Date Rc Novak MD [address] [place] [address] Referring Ophthalmology 09/22/20 Mikael Colón MD [address] [place] [address] Referring Ophthalmology 05/21/24 Manager [employer] Relationship Specialty Start Date End Date Rc Novak MD [address] [place] [address] Referring Ophthalmology 09/22/20 Mikael Colón MD [address] [place] [address] Referring Ophthalmology 05/21/24 Manager [employer] Relationship Specialty Start Date End Date Rc Novak MD [address] [place] [address] Referring Ophthalmology 09/22/20 Mikael Colón MD [address] [place] [address] Referring Ophthalmology 05/21/24 Manager [employer] Relationship Specialty Start Date End Date Rc Novak MD [address] [place] [address] Referring Ophthalmology 09/22/20 Mikael Colón MD [address] [place] [address] Referring Ophthalmology 05/21/24 Manager [employer] Relationship Specialty Start Date End Date Rc Novak MD [address] [place] [address] Referring Ophthalmology 09/22/20 Mikael Colón MD [address] [place] [address] Referring Ophthalmology 05/21/24 Manager [employer] Relationship Specialty Start Date End Date Rc Novak MD [address] [place] [address] Referring Ophthalmology 09/22/20 Mikael Colón MD [address] [place] [address] Referring Ophthalmology 05/21/24 Manager [employer] Relationship Specialty Start Date End Date Rc Novak MD [address] [place] [address] Referring Ophthalmology 09/22/20 Mikael Colón MD [address] [place] [address] Referring Ophthalmology 05/21/24 Manager [employer] Relationship Specialty Start Date End Date Rc Novak MD [address] [place] [address] Referring Ophthalmology 09/22/20 Mikael Colón MD [address] [place] [address] Referring Ophthalmology 05/21/24 Manager [employer] Relationship Specialty Start Date End Date Rc Novak MD [address] [place] [address] Referring Ophthalmology 09/22/20 Mikael Colón MD [address] [place] [address] Referring Ophthalmology 05/21/24 Manager [employer] Relationship Specialty Start Date End Date Rc Novak MD [address] [place] [address] Referring Ophthalmology 09/22/20 Mikael Colón MD [address] [place] [address] Referring Ophthalmology 05/21/24 Manager [employer] Relationship Specialty Start Date End Date Rc Noavk MD [address] [place] [address] Referring Ophthalmology 09/22/20 Mikael Colón MD [address] [place] [address] Referring Ophthalmology 05/21/24 Manager [employer] Relationship Specialty Start Date End Date Rc Novak MD [address] [place] [address] Referring Ophthalmology 09/22/20 Mikael Colón MD [address] [place] [address] Referring Ophthalmology 05/21/24 Manager [employer] Sales Relationship Specialty Start Date End Date Rc Novak MD [address] [place] [address] Referring Ophthalmology 09/22/20 Mikael Colón MD [address] [place] [address] Referring Ophthalmology 05/21/24 Manager [employer] Sales Relationship Specialty Start Date End Date Rc Novak MD [address] [place] [address] Referring Ophthalmology 09/22/20 Mikael Colón MD [address] [place] [address] Referring Ophthalmology 05/21/24 Manager [employer] Sales Relationship Specialty Start Date End Date Rc Novak MD [address] [place] [address] Referring Ophthalmology 09/22/20 Mikael Colón MD [address] [place] [address] Referring Ophthalmology 05/21/24 Manager [employer] Sales Relationship Specialty Start Date End Date Rc Novak MD [address] [place] [address] Referring Ophthalmology 09/22/20 Mikael Colón MD [address] [place] [address] Referring Ophthalmology 05/21/24 Manager [employer] Sales Relationship Specialty Start Date End Date Marzena Banks MD [address] [place] [address] PCP - General Family Medicine 01/28/25 Rc Novak MD [address] [place] [address] Referring Ophthalmology 09/22/20 Mikael Colón MD [address] [place] [address] Referring Ophthalmology 05/21/24 Scheduled Active and Recently [...] on Paulina 06/12/24 at 1200, Until Paulina 10 at 1225, Intraprocedure 1200 (Given - Provid [...] BE BASED ON THE PRIMARY CLINICAL RECORDS. [facility]. provides no warranty or guarantee of the accuracy or completeness of information in this document.
[2025-02-11 06:03] LABS: Absolute Lymphocyte Count 2.07 X10^3/uL (0.83-4.51); Absolute Neutrophil Count 9.4 X10^3/uL (2.0-7.7); Basophil# 0.04 X10^3/uL; Basophil% 0.3 % (0-1); Eosinophil# 0.41 X10^3/uL; Eosinophils% 3.2 % (0-5); Hematocrit 33.4 % (37-47); Hemoglobin 10.1 g/dL (12.0-15.0); Lymphocyte # 2.07 X10^3/ul (0.83-4.51); Lymphocyte % 15.9 % (19-41); Mean Corp Hgb Conc 30.2 g/dL (32-36); Mean Corpuscular Hgb 21.7 pg (27.0-32.0); Mean Corpuscular Volume 71.7 fL (81-99); Mean Platelet Vol. 8.9 fl (6.2-12.0); Monocyte% 7.7 % (0-10); NRBC Flagged by Analyzer 0 % (0-5); Neutrophil # 9.42 X10^3/uL (2.7-7.7); Neutrophil % 72.4 % (47-70); Platelet Count 333 K/mm3 (150-450); RBC Distribution Width CV 15.7 % (11.6-14.6); RBC Distribution Width SD 39.7 fl (35.1-43.9); Red Blood Count 4.66 M/mm3 (4.2-5.4)
--- NOTE | 2025-02-11 06:14 | ED.RN ---
2 nurses attempted to start IV on this patient, unsuccessful at this time. Dr. Abdullahi at bedside with ultrasound to look for IV.
[2025-02-11 06:24] LABS: AST(SGOT) 73 U/L (<=31); Alanine Aminotransfer ALT/SGPT 65 U/L (<=34); Albumin, Serum 3.5 g/dL (3.5-5.0); Alkaline Phosphatase 106 U/L (35-104); Anion Gap 13 (5-15); BUN 11 mg/dL (4-19); BUN/Creat Ratio 14.9 RATIO (10-20); Bilirubin, Direct 0.08 mg/dL (0.00-0.30); Calcium,Total 8.6 mg/dL (7.6-11.0); Carbon Dioxide 20.8 mmol/L (21.0-32.0); Chloride 104 mmol/L (98-108); Creatinine, Serum 0.74 mg/dL (0.70-1.20); EST Glomerular Filtration Rate 107 (>60); Estimated Creatinine Clearance 132.08 ml/min (50-250); Globulin 3.5 g/dL (2.2-4.2); Glucose 101 mg/dL (70-99); Lactic Acid 1.4 mmol/L (0.0-2.0); Lipase 14 U/L (13-75); Sodium Level 138 mmol/L (133-145); Total Bilirubin 0.32 mg/dL (0.00-1.30)
[2025-02-11] MEDS: 0.9% Normal Saline (1000mL) 1,000 ML 999 ML IV (06:45)
[2025-02-11] MEDS: Ondansetron ODT 4 MG Tablet PO (07:00)
[2025-02-11] MEDS: HYDROmorphone 1 MG/ML Syringe 2 MG IM (07:00)
[2025-02-11 07:31] LABS: Mucous, Urine 0 SEEN /hpf (<or=2+); Red Blood Cells-Urine 0 SEEN /hpf (0-5)
[2025-02-11 07:44] LABS: Color, Urine Yellow (Yellow); Glucose, Dipstick Normal (Normal); Ketone-Dipstick Negative (Negative); Leukocyte Esterase-Dipstick Negative /ul (Negative); Nitrite-Dipstick Negative (Negative); Occult Blood-Urine Negative /ul (Negative); Protein-Dipstick 15 mg/dl (Negative); Specific Gravity, Urine 1.015 (1.002-1.030); Urine Bilirubin Dipstick Negative (Negative); Urine Clarity Clear (Clear); Urine Urobilinogen Normal (Normal)
[2025-02-11 07:55] LABS: Bacteria 2+ /hpf (None Seen); Squamous Epithelial Cells - UA 5-10 SEEN /hpf (5-10); White Blood Cells 0-5 SEEN /hpf (0-5)
[2025-02-11] MEDS: Ondansetron 4 MG/2 ML Vial IV (11:26)
[2025-02-11] MEDS: HYDROmorphone 1 MG/ML Syringe IV (11:26)
--- NOTE | 2025-02-11 12:20 | CM.ED ---
Social Work SW met with patient due to face sheet showing that patient does not have a PCP. Patient stated that she has found a primary care physician and her first appointment is upcoming. Patient denied need for additional resources. Anastasiya Salter, [employer] FICO ARCHITECT, LUMBER SORTER
== END 2025-02-11 11:37 | disposition home or self-care (01) ==
PROVIDERS: Emergency Provider Emergency Medicine; Visit Provider Emergency Medicine
DX: G89.18 Other acute postprocedural pain (principal); R10.9 Unspecified abdominal pain; Y83.8 Other surgical procedures as the cause of abnormal reaction of the patient, or of later complication, without mention of misadventure at the time of the procedure; R11.2 Nausea with vomiting, unspecified; R19.7 Diarrhea, unspecified; E66.9 Obesity, unspecified; Z98.890 Other specified postprocedural states; Z79.899 Other long term (current) drug therapy
CPT/HCPCS: 74177; 80048; 80076; 81001; 83605; 83690; 85025; 96372; 96374; 96375; 99283; Q9967; A4216; J2405

== ENCOUNTER 2025-02-26 20:44 | Emergency (ER) | payer MEDICAID, SELFPAY ==
[2025-02-26 20:45] VITALS: BP 153/114; PULSE 98; RESP 16; TEMP 35.9; O2SAT 99; BMI 38.5
[2025-02-26 20:54] VITALS: BP 172/107; PULSE 87; RESP 16; TEMP 36.9; O2SAT 99
[2025-02-26] MEDS: Ondansetron 4 MG/2 ML Vial IV (21:12)
[2025-02-26] MEDS: Ketorolac 15 MG/ML Vial IV (21:12)
[2025-02-26 21:23] LABS: Absolute Neutrophil Count 6.3 X10^3/uL (2.0-7.7); Basophil# 0.09 X10^3/uL; Basophil% 0.9 % (0-1); Eosinophil# 0.35 X10^3/uL; Eosinophils% 3.6 % (0-5); Hematocrit 34.8 % (37-47); Hemoglobin 10.5 g/dL (12.0-15.0); Lymphocyte % 22.6 % (19-41); Mean Corp Hgb Conc 30.2 g/dL (32-36); Mean Corpuscular Hgb 21.3 pg (27.0-32.0); Mean Corpuscular Volume 70.6 fL (81-99); Mean Platelet Vol. 9.2 fl (6.2-12.0); Monocyte# 0.79 X10^3/uL; Monocyte% 8.1 % (0-10); NRBC Flagged by Analyzer 0 % (0-5); Neutrophil # 6.26 X10^3/uL (2.7-7.7); Neutrophil % 64.4 % (47-70); Platelet Count 404 K/mm3 (150-450); RBC Distribution Width CV 15.9 % (11.6-14.6); RBC Distribution Width SD 39.1 fl (35.1-43.9); Red Blood Count 4.93 M/mm3 (4.2-5.4); White Blood Count 9.7 K/mm3 (4.4-11.0)
[2025-02-26 21:27] LABS: Red Blood Cells-Urine 0 SEEN /hpf (0-5)
[2025-02-26 21:31] LABS: Color, Urine Yellow (Yellow); Glucose, Dipstick Normal (Normal); Internal QC Validated? YES +Cl - CLEAR BKGD; Ketone-Dipstick Negative (Negative); Leukocyte Esterase-Dipstick Negative /ul (Negative); Nitrite-Dipstick Negative (Negative); Occult Blood-Urine Negative /ul (Negative); Pregnancy, Urine Negative Negative; Protein-Dipstick 30 mg/dl (Negative); Specific Gravity, Urine 1.025 (1.002-1.030); Urine Bilirubin Dipstick Negative (Negative); Urine Clarity Sl. Cloudy (Clear); Urine Urobilinogen Normal (Normal)
--- NOTE | 2025-02-26 21:34 | EX.ED.DYSGE1 ---
HPI <AURELIA Guillen - Last Filed: 02/26/25 21:45> History of Present Illness Chief Complaint: Flank Pain Narrative Narrative: 39-year-old female has had 3 days of intermittent right flank pain that comes in waves. Feels worse with sitting or standing. She has had occasional nausea but no vomiting. No fever or chills. Once in a while she will have dysuria but denies frequency or hematuria. She states she has had kidney stones in the past and this feels similar. She required a stent and several surgeries for kidney stone with Dr. Ren before. She also recently had a ventral hernia repair with mesh on February 06 and states that area just feels sore but no worse than usual. PFSH <AURELIA Guillen - Last Filed: 02/26/25 21:45> [facility] Medical History Left ureteral calculus Bruising Easy bruising History of IBS Heartburn Shortness of breath on exertion Non-smoker History of echocardiogram Cardiology follow-up encounter Generalized anxiety disorder PTSD (post-traumatic stress disorder) Major depressive disorder, recurrent severe without psychotic features Migraines Kidney stones Ovarian cyst Home Medications ?Medication ?Instructions ?Recorded ?Last Taken ?Type acetazolamide 500 mg 500 mg PO BID PSEUDOTUMOR 06/23/21 Unknown History capsule,extended release phenazopyridine 200 mg tablet 200 mg PO TID 6 doses #6 tabs 06/26/23 Unknown Rx (Pyridium) naproxen 500 mg tablet 500 mg PO BID PRN #14 tabs 12/14/23 Unknown Rx aripiprazole 2 mg tablet 2 mg PO QHS 07/02/24 Unknown History ondansetron 4 mg disintegrating 4 mg PO Q8H PRN PRN Nausea #10 tabs 08/14/24 Unknown Rx tablet amoxicillin 500 mg tablet 500 mg PO TID #30 tabs 02/02/25 Unknown Rx levofloxacin 750 mg tablet 750 mg PO DAILY 7 days #7 tabs 02/27/25 Unknown Rx ondansetron 4 mg disintegrating 4 mg PO Q8H PRN PRN Nausea 3 days 02/27/25 Unknown Rx tablet #9 tabs oxycodone-acetaminophen 5 mg-325 1 tab PO Q8H PRN pain 1 day #3 tabs 02/27/25 Unknown Rx mg tablet (Percocet) Allergy/AdvReac Type Severity Reaction Status Date / Time adhesive tape AdvReac Other Verified 02/11/25 05:25 Family History no significant family his Surgical History H/O hernia repair 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 CVS: Negative for chest pain. Respiratory: Negative for shortness of breath. GI: Negative for abdominal pain, vomiting, diarrhea, constipation, melena, hematochezia. : Positive for dysuria. EXAM <AURELIA Guillen - Last Filed: 02/26/25 21:45> Physical Exam Narrative Exam Narrative: CONST: Patient sitting in no acute distress. EYES: Normal inspection. NECK: Normal inspection. RESP: No respiratory distress, CTAB. CVS: Regular rate and rhythm, no murmur, no gallop. ABD: Soft and nontender, no guarding or rebound, nondistended. Healing laparoscopic incisions from recent surgery. Back: Normal inspection, no CVA tenderness. SKIN: Color normal, no rash, warm, dry, intact. EXTREMITIES: Normal appearance, no pedal edema. NEURO: Alert and answering questions appropriately. PSYCH: Normal affect. Const Vital Signs: 02/26/25 20:45 02/26/25 20:54 02/26/25 21:46 Temperature 96.6 F L 98.4 F 98.4 F Temperature Source Temporal Oral Oral Pulse Rate 98 87 80 Respiratory Rate 16 16 16 Blood Pressure 153/114 H 172/107 H 123/82 H Blood Pressure Mean 127 128 95 Pulse Ox 99 99 98 Oxygen Delivery Method Room Air Room Air Room Air 02/26/25 22:44 02/27/25 00:00 02/27/25 00:26 Temperature 98.4 F Temperature Source Pulse Rate 77 72 71 Respiratory Rate 16 16 16 Blood Pressure 123/83 H 126/86 H 121/86 H Blood Pressure Mean 96 99 97 Pulse Ox 98 97 96 Oxygen Delivery Method Room Air Room Air <Dr. Moreno Ruiz DO - Last Filed: 02/27/25 03:11> Physical Exam Narrative Exam Narrative: CONST: Patient sitting in no acute distress. EYES: Normal inspection. NECK: Normal inspection. RESP: No respiratory distress, CTAB. CVS: Regular rate and rhythm, no murmur, no gallop. ABD: Soft and nontender, no guarding or rebound, nondistended. Healing laparoscopic incisions from recent surgery. Back: Normal inspection, <del>no</del> <del>CVA</del> <del>tenderness.</del> SKIN: Color normal, no rash, warm, dry, intact. EXTREMITIES: Normal appearance, no pedal edema. NEURO: Alert and answering questions appropriately. PSYCH: Normal affect. Const Vital Signs: 02/26/25 20:45 02/26/25 20:54 02/26/25 21:46 Temperature 96.6 F L 98.4 F 98.4 F Temperature Source Temporal Oral Oral Pulse Rate 98 87 80 Respiratory Rate 16 16 16 Blood Pressure 153/114 H 172/107 H 123/82 H Blood Pressure Mean 127 128 95 Pulse Ox 99 99 98 Oxygen Delivery Method Room Air Room Air Room Air 02/26/25 22:44 02/27/25 00:00 02/27/25 00:26 Temperature 98.4 F Temperature Source Pulse Rate 77 72 71 Respiratory Rate 16 16 16 Blood Pressure 123/83 H 126/86 H 121/86 H Blood Pressure Mean 96 99 97 Pulse Ox 98 97 96 Oxygen Delivery Method Room Air Room Air [facility] <AURELIA Guillen - Last Filed: 02/26/25 21:45> [facility] Narrative Medical decision making narrative: 39-year-old female presents with 3 days of right flank pain and intermittent dysuria. She has a history of kidney stones. She appears well and nontoxic. She is hypertensive with otherwise stable vital signs. Normal cardiopulmonary exam. Abdomen soft and nontender. No reproducible CVA tenderness. CBC shows normal white count of 9.7 and hemoglobin of 10.5 which is her baseline. Renal function is normal. Lab Data Attestation: I reviewed the patient's lab results. Labs: Laboratory Results - last 24 hr 02/26/25 02/26/25 21:15 21:20 WBC 9.7 RBC 4.93 Hgb 10.5 L Hct 34.8 L MCV 70.6 L MCH 21.3 L MCHC 30.2 L RDW Std Deviation 39.1 RDW Coeff of Theresa 15.9 H Plt Count 404 MPV 9.2 Immature Gran % (Auto) 0.400 Neut % (Auto) 64.4 Lymph % (Auto) 22.6 Divide % (Auto) 8.1 Eos % (Auto) 3.6 Baso % (Auto) 0.9 Absolute Neuts (auto) 6.3 Absolute Lymphs (auto) 2.20 Nucleated RBC % 0 Sodium 139 Potassium 3.7 Chloride 107 Carbon Dioxide 18.7 L Anion Gap 13 BUN 15 Creatinine 0.76 Estim Creat Clear Calc 126.34 Est GFR (MDRD) Non-Af 103 BUN/Creatinine Ratio 19.0 Glucose 124 H Calcium 8.7 Urine Color Yellow Urine Clarity Sl. Cloudy Urine pH 5.0 Ur Specific [place] 1.025 Urine Protein 30 H Urine Glucose (UA) Normal Urine Ketones Negative Urine Occult Blood Negative Urine Nitrite Negative Urine Bilirubin Negative Urine Urobilinogen Normal Ur Leukocyte Esterase Negative Urine RBC 0 SEEN Urine WBC 0-5 SEEN Ur Squamous Epith Cells 10-25 SEEN Urine Bacteria 3+ Urine Mucus 1+ Urine Test Negative Radiography Diagnostic Testing: Clinical Impression(s) from Imaging Studies Abdomen/Pelvis CT 02/26/25 21:46 IMPRESSION: Small esophageal hiatal hernia. Hepatomegaly and hepatic steatosis. Small anterior abdominal wall hernia. Reading Location: [id number] <Dr. Moreno CallahanMaico, DO - Last Filed: 02/27/25 03:11> [facility] Narrative Medical decision making narrative: 39-year-old female presents with 3 days of right flank pain and intermittent dysuria. She has a history of kidney stones. She appears well and nontoxic. She is hypertensive with otherwise stable vital signs. Normal cardiopulmonary exam. Abdomen soft and nontender. <del>No</del> <del>reproducible</del> <del>CVA</del> <del>tenderness</del>. CBC shows normal white count of 9.7 and hemoglobin of 10.5 which is her baseline. Renal function is normal. Supervisory Physician Note Patient was seen and examined with the Advanced Practice Provider. Nursing notes and vital signs have been reviewed. Pertinent old records have been reviewed. I agree with the essential elements of the NURY's history, physical exam, assessment, and plan. The differential diagnosis and management options were discussed with the NURY. I participated in determining and agree with the management, procedures, final impression and disposition as documented. See changes noted by me. Please see addendum or separate note for any additional details. 39-year-old female with past medical history of urolithiasis, anxiety, PTSD, history of recent ventral hernia repair in January presents for evaluation of right flank pain. Pain has been ongoing for several days and intermittent. Fluctuates in intensity. Associated symptom is nausea. States it feels similar to her urolithiasis. Denies any fever, chills, shortness of breath, chest pain, diarrhea, constipation, hematuria. Occasionally has dysuria. Gen: A&O x3 Head: Normocephalic, atraumatic Eyes: No sclera icterus, conjunctiva clear ENT: Moist mucous membranes Neck: Trachea midline, No JVD CV: RRR, no murmurs, no peripheral edema Resp: Lungs CTA BL, no w/r/c GI: Abd soft, non-distended, non-tender, no r/r/g, previous surgical incisions healed : CVA tenderness on the right Musc: Full ROM, no deformity Skin: Warm, dry Neuro: Alert, oriented, grossly intact, sensation intact Psych: Cooperative, appropriate mood and affect Differential diagnosis includes but is not limited to urolithiasis, UTI, pyelonephritis. Low suspicion for other intra-abdominal pathology. Toradol and Zofran ordered for symptoms. Laboratory workup ordered including CT abdomen pelvis without contrast. CBC without leukocytosis. Patient has baseline anemia with hemoglobin of 10.5. Platelet count unremarkable. BMP relatively unremarkable without significant electrolyte abnormality or XENIA. CT abdomen pelvis shows small esophageal hiatal hernia. Hepatomegaly with hepatic steatosis. Small anterior abdominal wall hernia. No lower urolithiasis. UA is positive for bacteria but negative for nitrates, leuk esterase, WBC. Not a clean sample with multiple squamous epithelial cells. Urine culture sent. Although this is not consistent with UTI, patient has CVA tenderness on physical exam concerning for pyelonephritis. She endorses intermittent dysuria therefore we will treat for possible UTI/pyelonephritis. On reevaluation, patient in tears stating that her pain is not improved. At this point in time, no clear etiology to explain patient's pain. Will give dose of Rocephin with morphine. On reevaluation, patient states her pain is improved. Patient is stable to discharge home. Will place her on a 7-day course of Levaquin for possible pyelonephritis/UTI. She is requesting pain medicine as she states Tylenol and ibuprofen are not working at home. Will prescribe only 1 day worth of Percocet for severe pain. Return precautions explained. Recommended following up with PCP. She confirmed understanding the plan. Impression: 1. Right flank pain/CVA tenderness 2. Bacteriuria with possible UTI/pyelonephritis Lab Data Labs: Laboratory Results - last 24 hr 02/26/25 02/26/25 21:15 21:20 WBC 9.7 RBC 4.93 Hgb 10.5 L Hct 34.8 L MCV 70.6 L MCH 21.3 L MCHC 30.2 L RDW Std Deviation 39.1 RDW Coeff of Theresa 15.9 H Plt Count 404 MPV 9.2 Immature Gran % (Auto) 0.400 Neut % (Auto) 64.4 Lymph % (Auto) 22.6 Divide % (Auto) 8.1 Eos % (Auto) 3.6 Baso % (Auto) 0.9 Absolute Neuts (auto) 6.3 Absolute Lymphs (auto) 2.20 Nucleated RBC % 0 Sodium 139 Potassium 3.7 Chloride 107 Carbon Dioxide 18.7 L Anion Gap 13 BUN 15 Creatinine 0.76 Estim Creat Clear Calc 126.34 Est GFR (MDRD) Non-Af 103 BUN/Creatinine Ratio 19.0 Glucose 124 H Calcium 8.7 Urine Color Yellow Urine Clarity Sl. Cloudy Urine pH 5.0 Ur Specific [place] 1.025 Urine Protein 30 H Urine Glucose (UA) Normal Urine Ketones Negative Urine Occult Blood Negative Urine Nitrite Negative Urine Bilirubin Negative Urine Urobilinogen Normal Ur Leukocyte Esterase Negative Urine RBC 0 SEEN Urine WBC 0-5 SEEN Ur Squamous Epith Cells 10-25 SEEN Urine Bacteria 3+ Urine Mucus 1+ Urine Test Negative Radiography Diagnostic Testing: Clinical Impression(s) from Imaging Studies Abdomen/Pelvis CT 02/26/25 21:46 IMPRESSION: Small esophageal hiatal hernia. Hepatomegaly and hepatic steatosis. Small anterior abdominal wall hernia. Reading Location: [place] [id number] Discharge Plan Triage Chief Complaint: Flank Pain ED Midlevel Provider: Judi Burton ED Provider: Moreno Ruiz Dx/Rx/DC Orders Clinical Impression: Pyelonephritis Instructions: ED Pyelonephritis, Female (Adult) Prescriptions: New levofloxacin 750 mg tablet 750 mg PO DAILY 7 Days Qty: 7 0RF ondansetron 4 mg tablet,disintegrating 4 mg PO Q8H PRN PRN (Reason: Nausea) 3 Days Qty: 9 0RF oxycodone-acetaminophen [Percocet] 5-325 mg tablet 1 tab PO Q8H PRN (Reason: pain) 1 Days Qty: 3 0RF Discontinued ondansetron 4 mg tablet,disintegrating 4 mg PO Q8H PRN PRN (Reason: Nausea) Qty: 10 0RF No Action acetazolamide 500 mg capsule, extended release 500 mg PO BID phenazopyridine [Pyridium] 200 mg tablet 200 mg PO TID Qty: 6 0RF naproxen 500 mg tablet 500 mg PO BID PRN Qty: 14 0RF amoxicillin 500 mg tablet 500 mg PO TID Qty: 30 0RF aripiprazole 2 mg tablet 2 mg PO QHS ondansetron 4 mg tablet,disintegrating 4 mg PO Q8H PRN PRN (Reason: Nausea) Qty: 10 0RF Primary Care Provider: Care Physician,No Primary Referrals: Care Physician,No Primary [Primary Care Provider] - Activity Restrictions/Additional Instructions: Follow-up with your primary care physician. If you do not have a primary care physician follow-up with the provider listed above. Return back to the ED if symptoms change or worsen. Do not combine Percocet with other narcotics Print Language: Chinese Disposition Disposition: Home, Self Care Discharge Date/Time: 02/27/25 00:40
[2025-02-26 21:43] LABS: Anion Gap 13 (5-15); BUN 15 mg/dL (4-19); Calcium,Total 8.7 mg/dL (7.6-11.0); Carbon Dioxide 18.7 mmol/L (21.0-32.0); Chloride 107 mmol/L (98-108); Creatinine, Serum 0.76 mg/dL (0.70-1.20); EST Glomerular Filtration Rate 103 (>60); Estimated Creatinine Clearance 126.34 ml/min (50-250); Glucose 124 mg/dL (70-99); Potassium 3.7 mmol/L (3.3-5.1); Sodium Level 139 mmol/L (133-145)
[2025-02-26 21:46] VITALS: BP 123/82; PULSE 80; RESP 16; TEMP 36.9; O2SAT 98
--- NOTE | 2025-02-26 21:46 | CT_ITS ---
PROCEDURE: ABDOMEN/PELVIS WITHOUT CONT 02/26/2025 REASON FOR EXAM: RIGHT FLANK PAIN TECHNIQUE: ABDOMEN/PELVIS WITHOUT CONT Noncontrast technique limits evaluation of the abdominal and pelvic viscera. Coronal and Sagittal reconstruction series were provided. One or more dose reduction techniques were used (e.g., Automated exposure control, adjustment of the mA and/or kV according to patient size, use of iterative reconstruction technique). COMPARISON: 02/11/2025. FINDINGS: Small anterior abdominal wall fat containing ventral hernia. No acute osseous abnormalities. Normal caliber aorta. No suspicious lymphadenopathy. Hepatomegaly and hepatic steatosis. The gallbladder is surgically absent. The pancreas, spleen, and adrenals are unremarkable. No renal or ureteral calculi. No hydroureteronephrosis. The reproductive organs are unremarkable. Normal caliber large and small bowel. Small esophageal hiatal hernia. CT/Abdomen/Pelvis without Cont IMPRESSION: Small esophageal hiatal hernia. Hepatomegaly and hepatic steatosis. Small anterior abdominal wall hernia. Reading Location: [id number]
--- OUTSIDE RECORDS SUMMARY | 2025-02-26 21:48 | XMS RPT_ITS | CCD ---
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 Name Role Phone LOUIS ASKEWChrista Unavailable Unavailable GANTA, SASHA CChrista Unavailable Unavailable GANTA, SASHA CChrista Unavailable Unavailable Dasha Liang Primary Care Provider PHYSICIAN, NONE Primary Care Physician Unavailab Rc West Unavailable Rc Novak MD Unavailable [phone] Kemar Mantilla MD Primary Care Provider Kemar Mantilla MD Primary Care Provider PHYSICIAN, [...] Unavailable Marzena Banks MD Primary Care Provider MIKAEL COLÓN Referring Unavailable RHIANNA CAMPO Attending Unavailable EULALIA JUSTICE Referring Unavailable MIKAEL COLÓN Attending Unavailable CHULA MORTON Admitting Unavailable CHULA MORTON Attending Unavailable DE GILL Attending Unavaila ble OMAR FERREIRA Referring Unavailable JASWANT ASKEW Admitting Unavailable NISHI, MARZENA Primary Care Unavailable LEIGH NOWAK Attending Unavailable NISHI, MARZENA Primary Care Unavailable RYLEE MCDONALD Attending Unavailable RYLEE MCDONALD Referring Unavailable NISHI, MARZENA Primary Care Unavailable SUGEY ALLAN Attending Unavailable MIKAEL COLÓN Referring Unavailable ELDON, MIKAEL Referring Unavailable MIKAEL COLÓN Attending Unavailable CHULA MORTON Attending Unavailable MIKAEL COLÓN Referring Unavailable MIKAEL COLÓN Attending Unavailable MIESHA RUBY Attending Unavailable RC NOVAK Referring Unavaila KEMAR Maloney Primary Care Unavailable SUGEY ALLAN Referring Unavailable HANNA, OMAR Referring Unavailable JASWANT ASKEW Attending Unavailable RHIANNA CAMPO Referring Unavailable MIKAEL COLÓN Attending Unavailable MIESHA RUBY Referring Unavailable ANGELO PASCUAL Admitting Unavailable ANGELO PASCUAL Attending Unavailable EULALIA JUSTICE Attending Unavailable CRESENCIO BOYLE Referring Unavailable MIKAEL COLÓN Referring Unavailable HANNA, OMAR Referring Unavailable HANNA, OMAR Referring Unavailable OMAR FERREIRA Attending Unavailable NISHI, MARZENA Primary Care Unavailable Jesse Abdullahi Attending Unavailable Care Physician, No Primary Primary Care Unava ilable Care Physician, No Primary Primary Care Unava ilable Williams Parekh Attending Unavailable Care Physician, No Primary Primary Care Unava ilable Herve Awad Attending Unavailable Care Physician, No Primary Primary Care Unava ilable Norris Saeed Attending Unavailable Care Physician, No Primary Primary Care Unava ilable Pranav Biggs Attending Unavailable Allergies Allergy Classification Reported Allergen(s) Allergy Type Date of Onset Reaction(s) Facility (20 sources) Adhesive Tape Allergy to substance Burn injury (morphologic abnormality) [facility] (20 sources) Adhesive Tape; Translations: [ADHESIVE TAPE (ROSINS)] Propensity to adverse reactions to substance 3 Rash [facility] (1 source) Adhesive Tape Drug allergy (disorder) 5 [facility] Medications Current Medications Medication Drug Class(es) [...] every six hours as needed for pain [place] 325- 5 mg oral tablet Dose = 1 tab(s), Oral, q6h, PRN for pain, X 3 day(s), # 12 tab(s), 0 Refill(s), Pyelonephritis, 106.8 Start Date: 08/25/24 Stop Date: 08/28/24 Status: Ordered Start: 06-12-2024 End: 06-15-2024 take 1 tablet by mouth every six hours as needed for pain [place] 325- 5 mg oral tablet Dose = [...] day(s), # 18 tab(s), 0 Refill(s), Pharmacy: [facility]/pharmacy #[id number], Status post laparoscopy Status post ovarian [...] 1 tablet by forrest th twice daily. Amoxicillin (5 sources) Penicillin-class Antibacterial AMOXICILLIN ORAL Take by mouth. Active ARIPiprazole 2 mg oral tablet (4 sources) [...] 0 Refill(s), 09/29/24 8:58:00 PM EST, Pharmacy: [facility]/pharmacy #[id number], 167.6, cm, 07/24/24 16:06:00 EST, Height, [...] 04/17/2024 Active take 1 tablet by forrest every six hours as needed diazePAM (VALIUM) [...] pain, # 30 tab(s), 1 Refill(s), Pharmacy: [facility]/pharmacy #[id number], 167.6, cm, 03/15/21 15:21:00 EDT, Height, [...] hydrochloride 500 mg extended release oral tablet (20 sources) Biguanide Start: 09-26-19 End: 01-02-20 take [...] with meals. 187 tablet 2 09/26/2024 Active methocarbamol 500 mg oral tablet (20 sources) Muscle Relaxant Start: 02-14-20 End: 02-19-20 take 1 tablet by mouth three times daily methocarbamol (ROBAXIN) 500 mg tablet Indications: Postoperative visit Take 1 tablet by mouth three times a day for 5 days. 15 tablet 02/13/2025 02/18/2025 Active Start: 07-30-2024 End: 01-22-2025 take 1 tablet by mouth every eight hours as needed methocarbamol (ROBAXIN) 500 mg tablet Take 1 tablet by mouth three times a day as needed (Headache). 30 tablet 07/30/2024 01/22/2025 Discontinued naproxen 500 mg delayed release oral tablet [...] q6h, # 20 tab(s), 0 Refill(s), Pharmacy: [facility]/pharmacy #[id number], 167.6, cm, 02/12/23 17:27:00 EDT, Height, kg, 02/12/23 17:27:00 EDT, Dosing Weight Start Date: 02/12/23 Stop Date: 02/17/23 Status: Ordered Quantity: 20.0 Unit: tab(s) Repeat number: 1 Start: 01-28-2023 End: 02-02-2023 Zofran 4 mg oral tablet Dose : 4 mg = 1 tab(s), Oral, q6h, # 20 tab(s), 0 Refill(s), [id number] 167.3, cm, 01/28/23 0:24:00 EDT, Height Start Date: 01/28/23 Stop Date: 02/02/23 Status: Ordered Start: 05-26-2019 End: 05-26-2019 ondansetron (ZOFRAN) injecti on 4 mg Start: 05-22-2019 ondansetron (Z OFRAN) injection 4 mg oxyCODONE hydrochloride 5 mg oral tablet (7 sources) Opioid Agonist Start: 02-13-2025 End: 02-18-2025 take 1 tablet by mouth every eight hours as needed for pain oxyCODONE IR (ROXICODONE) 5 mg immediate release tablet Indications: Postoperative visit Take 1 tablet by mouth every 8 hours as needed for pain for up to 5 days. 10 tablet 02/13/2025 02/18/2025 Active Start: 02-12-2023 oxyCODONE 5 mg oral tablet [...] tablet (20 sources) Proton Pump Inhibitor Start: 06-12-2024 End: 01-22-2025 pantoprazole 40 mg oral enteric coated tablet Dose : 40 mg = 1 tab(s), Oral, qDay, # 30 tab(s), 0 Refill(s) Start Date: 07/24/24 Status: Ordered phenylephrine hydrochloride 25 mg/ml ophthalmic [...] 02/09/24 Status: Ordered Repeat number: 1 sennosides, [facility] 8.6 mg oral tablet (1 source) Start: [...] 1 Start: 12-31-2023 take 1 capsule by [facility] every hour venlafaxine ER (EFFEXOR XR) 75 [...] 0 Refill(s) Start Date: 07/24/24 Status: Ordered gabapentin 300 mg oral capsule (1 source) [...] source) RNA Synthetase Inhibitor Antibacterial End: 05-22-20 19 mupirocin (BACTROBAN) 2 % ointment Apply topically 3 times daily Apply topically 3 times daily. 0 05/22/2019 Discontinued omeprazole 20 mg delayed release oral capsule (1 source) Proton Pump Inhibitor Start: 07-29-20 18 take 2 capsules by mouth once daily omeprazole (PRILOSEC) 20 mg capsule Take 2 capsules by mouth once daily. 60 capsule 3 07/29/2018 Active Comment on above: Take 2 capsules by m out once daily. VIT/IRON FUMARATE/FA ( VITAMIN ORAL) (1 source) VIT/IRO N FUMARATE/FA ( VITAMIN ORAL) Take by mouth. 0 Active Comment on above: Take by mouth. QUEtiapine 25 mg oral tablet (1 source) Atypical Antipsychotic Start: 11-20-19 End: 05-22-20 19 take 1.5 tablets by mouth once daily QUEtiapine (SEROQUEL) 25 MG tablet Take 1.5 tablets by mouth nightly 45 tablet 0 11/19/2017 05/22/2019 Discontinued Problems Active Problems Problem Classification Problem Date Documented Date Episodic/Chronic Abdominal hernia (16 sources) Umbilical hernia; Translations: [Umbilical hernia without obstruction or gangrene] Onset: 11-10-2024 09-26-2024 Episodic Acute and unspecified renal failure (3 sources) Acute injury of kidney; Translations: [XENIA (acute kidney injury)] 05-24-2019 Anxiety disorders (20 sources) Anxiety; Translations: [Posttraumatic stress disorder] Onset: 11-25-2013 12-07-2013 Chronic Calculus of urinary tract (20 sources) Kidney stone; Translations: [Calculus of kidney] Onset: 01-28-2024 01-01-2015 Episodic Disorders of lipid metabolism (3 sources) Hyperlipidemia; Translations: [Other hyperlipidemia] Onset: 05-23-2019 05-23-2019 Chronic Disorders of teeth and jaw (1 source) Other specified disorders of teeth and supporting structures; Translations: [Other specified disorders of teeth and supporting structures] Onset: 02-06-2025 Episodic E Codes: Fall (2 sources) Fall; Translations: [Unspecified fall, initial encounter] 12-13-2023 Episodic Ectopic (10 sources) Ectopic ; Translations: [Unspecified ectopic without intrauterine ] Onset: 02-07-2023 01-28-2023 Episodic Esophageal disorders (8 sources) Gastro-esophageal reflux disease with esophagitis; Translations: [Gastroesophageal reflux disease with esophagitis without hemorrhage] Onset: 01-23-2025 01-23-2025 Chronic Esophageal disorders (1 source) Esophageal disorders; Translations: [Gastroesophageal reflux disease with esophagitis without hemorrhage] Onset: 01-23-2025 Essential hypertension (20 sources) Hypertensive disorder; Translations: [Essential (primary) hypertension] Onset: 07-18-2013 12-07-2013 Chronic Fever of unknown origin (1 source) Fever; Translations: [Fever, unspecified] Episodic Headache; including migraine (20 sources) Migraine with aura; Translations: [Migraine with aura, not intractable, without status migrainosus] Onset: 02-27-2023 02-27-2023 Chronic Miscellaneous mental health disorders (3 sources) Avoidant restrictive food intake disorder; Translations: [Avoidant/restrictive food intake disorder] Onset: 11-10-2024 09-26-2024 Chronic Mood disorders (20 sources) Depressive disorder; Translations: [Severe recurrent major depression without psychotic features] Onset: 11-25-2013 05-22-2019 Chronic Nausea and vomiting (5 sources) Postoperative nausea and vomiting; Translations: [Nausea with vomiting, unspecified] Onset: 02-06-2025 02-06-2025 Episodic Other aftercare (2 sources) Postoperative visit; Translations: [Encounter for other specified surgical aftercare] 02-13-2025 Episodic Other aftercare (1 source) Encounter for other specified surgical aftercare; Translations: [Postoperative visit] Onset: 02-13-2025 Episodic Other and ill-defined cerebrovascular disease (20 sources) Disorder of intracranial venous sinus; Translations: [Cerebrovascular disease, unspecified] Onset: 06-21-2024 06-21-2024 Chronic Other and ill-defined cerebrovascular disease (3 sources) Cerebrovascular disease; Translations: [Cerebrovascular disease, unspecified] 10-08-2024 Chronic Other and ill-defined cerebrovascular disease (2 sources) Cerebrovascular disease, unspecified; Translations: [Intracranial vascular stenosis] Onset: 07-29-2024 Chronic Other complications of (1 source) Chemical [...] [Papilledema associated with increased intracranial pressure] Onset: 07-25-2024 Chronic Other eye disorders (1 source) Iris [...] 11-24-2020 05-24-2019 Chronic Other nervous system disorders (1 source) Raised intracranial pressure; Translations: [Benign intracranial hypertension] 06-21-2024 Chronic Other nervous system disorders (3 sources) Benign intracranial hypertension; Translations: [IIH (idiopathic intracranial hypertension)] Onset: 11-24-2020 Chronic Other nervous system disorders (1 source) Paresthesia; Translations: [Paresthesia of skin] 07-02-2024 Episodic Other nervous system disorders (5 sources) Postoperative pain ; Translations: [Other acute postprocedural pain] Onset: 02-06-2025 02-06-2025 Episodic Other nervous system disorders (1 source) Other acute postprocedural pain; Translations: [Post-op pain] Onset: 02-06-2025 Episodic Other non-traumatic joint disorders (3 sources) Acute ankle pain; Translations: [Pain in left ankle and joints of left foot] 12-13-2023 Episodic Other non-traumatic joint disorders (1 source) Pain in left wrist; Translations: [Left wrist pain] Onset: 02-16-2025 Episodic Other non-traumatic joint disorders (4 sources) Pain of left wrist; Translations: [Pain in left wrist] 02-16-2025 Episodic Other nutritional; endocrine; and metabolic disorders [...] calories without serious comorbidity, unspecified class] Onset: 11-24-2020 Chronic Other nutritional; endocrine; and metabolic disorders (2 sources) Body mass index 30+ - obesity; Translations: [Body mass index (BMI) 38.0-38.9, adult] 09-26-2024 Chronic Other nutritional; endocrine; and metabolic disorders (2 sources) Body fat unevenly distributed; Translations: [Localized adiposity] 09-26-2024 Chronic Other nutritional; endocrine; and metabolic disorders (11 sources) Body mass index 40+ - severely obese; Translations: [Obesity, Class III, BMI 40-49.9 (morbid obesity)] Onset: 01-28-2025 01-28-2025 Chronic Other nutritional; endocrine; and metabolic disorders (1 source) Body mass index (BMI) 38.0-38.9, adult; Translations: [BMI 38.0-38.9,adult] Onset: 11-10-2024 Chronic Other nutritional; endocrine; and metabolic disorders (1 source) Localized adiposity; Translations: [Central adiposity] Onset: 11-10-2024 Chronic Other nutritional; endocrine; and metabolic disorders [...] disorder, unspecified] 09-26-2024 Episodic Residual codes; unclassified (8 sources) At risk of apnea; Translations: [Other specified personal risk factors, not elsewhere classified] Onset: 01-23-2025 01-23-2025 Episodic Residual codes; unclassified (5 sources) History of hernia repair; Translations: [Other specified postprocedural states] Onset: 02-06-2025 02-06-2025 Episodic Residual codes; unclassified (1 source) Other specified personal risk factors, not elsewhere classified; Translations: [At risk for sleep apnea] Onset: 01-23-2025 Episodic Spondylosis; intervertebral disc disorders; other back problems (1 source) Backache; Translations: [Dorsalgia, unspecified] Onset: 09-19-2024 Episodic Spontaneous (1 source) Incomplete miscarriage with complication; Translations: [Incomplete spontaneous with other complications] Episodic Sprains and strains (1 source) Sprain of left ankle; Translations: [Sprain of unspecified ligament of left ankle, initial encounter] 01-08-2024 Episodic Superficial injury; contusion (1 source) Contusion of abdominal wall, initial encounter; Translations: [Contusion of abdominal wall, initial encounter] Onset: 12-26-2024 Episodic Syncope (6 sources) Near syncope; Translations: [Syncope and collapse] Onset: 02-08-2025 Episodic Unclassified (1 source) Unknown / UNK(Unknown) Onset: 03-22-2017 Unclassified (11 sources) 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 Unclassified (3 sources) Preprocedural examination done 11-13-2024 Unclassified (1 source) Patient encounter status 01-13-2025 Urinary tract infections (2 sources) Urinary tract infectious disease; Translations: [Urinary tract infection, site not specified] Onset: 08-25-2024 Episodic Past or Other Problems Problem Classification [...] [History of metabolic acidosis] Onset: 03-26-2024 Episodic Otitis media and related conditions (1 source) Otitis media; Translations: [Otitis media, unspecified, right ear] Onset: 08-25-2024 Episodic Residual codes; unclassified (20 sources) Pain; Translations: [Pain, unspecified] Onset: 07-18-2013 07-18-2013 Episodic Residual codes; unclassified (20 sources) Difficult venous access; Translations: [Other specified health status] Onset: 07-25-2024 07-25-2024 Episodic Residual codes; unclassified (2 sources) Other specified health status; Translations: [Difficult intravenous access] Onset: 07-25-2024 Episodic Residual codes; unclassified (1 source) Sleep disorder, unspecified; Translations: [Disturbance in sleep behavior] Onset: 11-10-2024 Episodic Residual codes; unclassified (1 source) Illness, unspecified; Translations: [Illness, unspecified] Onset: 09-11-2024 Episodic Unclassified (1 source) UPPER BACK PAIN Onset: 03-22-2017 Results Test Name Value Interpretation Reference Range Facility [facility] 02-16-2025 CNOV Office Visit (UCWSTR ) OMAR GOMEZ ([id number]) 1985 F Date Time Provider Department 02/16/25 1:30 PM RYLEE MCDONALD [facility] During your visit today, we recorded the following information about you: Temperature Pulse Respiration Blood pressure 98.5 degrees 90/minute 18/minute 130/90 Weight 109.1 kg Rylee Mcdonald APRN.[employer] 02/16/2025 1:59 PM Signed Subjective The history is provided by the patient. No complaint investigator was used. HPI Omar Gomez is a 39 year old female who presents today for CC of left wrist pain, swelling. Left Wrist Pain and Swelling: - Onset following hernia surgery on Sunday. - Noted a painful lump in the left hand, with persistent numbness in the fingers. - Initially, all three fingers were numb; sensation has returned to some fingers. - Pain extends down the wrist and up the arm; difficulty fully extending the arm. - Denies known trauma; suspects possible injury during surgery. - IV was placed in the left hand during surgery; multiple puncture carson noted. - Applied a wrist brace for support and compression. - injured a few weeks ago, never had it checked - hit it against the corner of a wall. BP 130/90 Pulse 90 Temp 36.9 ?C (98.5 ?F) Resp 18 Wt 109.1 kg (240 lb 8.4 oz) LMP 01/22/2025 SpO2 99% BMI 38.82 kg/m? Social History Tobacco Use Smoking status: Never Smokeless tobacco: Never Vaping Use Vaping status: Never Used Substance Use Topics Alcohol use: Not Currently Drug use: No PAST MEDICAL HISTORY Diagnosis Date Adjustment disorder with depressed mood Ectopic (HCC) 12/2022 IIH (idiopathic intracranial hypertension) PMH - PAST MEDICAL HISTORY OF 11/10/93-color vision normal Post depression 07/18/2013 hypertension (HCC) PTSD (post-traumatic stress disorder) Unequal pupils left > right I have confirmed and edited as necessary, the PSYCHIATRIC Review of Systems Constitutional: Negative for chills and fever. Musculoskeletal: Positive for joint pain (left wrist). Negative for myalgias. Skin: Negative for itching and rash. All other systems reviewed and are negative. Objective Physical Exam Vitals and nursing note reviewed. Cardiovascular: Pulses: Radial pulses are 2+ on the right side and 2+ on the left side. Pulmonary: Effort: Pulmonary effort is normal. Musculoskeletal: Right wrist: Normal. Left wrist: Swelling and tenderness present. No lacerations, bony tenderness, snuff box tenderness or crepitus. Normal range of motion. Normal pulse. Hands: Comments: 3 puncture carson on the back of the hand, with bruising noted, small pea size lump along 2nd metacarpal area. Mild swelling, non pitting. Skin: General: Skin is warm and dry. Neurological: Mental Status: She is alert and oriented to person, place, and time. Sensory: Sensation is intact. Motor: Motor function is intact. Psychiatric: Mood and Affect: Affect normal. Recording using AP[employer] Green software for draft documentation of the visit was discussed with the patient/authorized lead generation representative; all questions welcomed and answered. Patient/authorized lead generation representative agreed to proceed History and Record Review External record(s) reviewed: prior outpatient record. ASSESSMENT/PLAN: 1. Left wrist pain - ICD9: 719.43, ICD10: M25.532 Appears to be strain, swelling from IV sticks, no bony abnormality Rest, ice, elevation, wrist compression (susy wrap or splint). Tylenol (generic acetaminophen) 500 mg-2 tabs every 8 hrs. as needed for fever and aches Ibuprofen 600 mg (3-200mg tablets) every 6 hours if pain persists beyond 10-14 days there are times where a repeat x-ray is needed to rule out occult fracture Follow up with ortho as needed - XR WRIST GENERAL 3V PA/LAT/OBL LEFT FINDINGS: No acute fracture or dislocation identified. Joint spaces preserved. IMPRESSION: No radiographic evidence of acute osseous injury. Transcribe Date/Time: Feb 16 2025 1:24P Interpreted by : MD Rylee SNEED APRN.Rylee Regalado APRN.CNP 02/16/2025 1:59 PM Signed Appears to be strain, swelling from IV sticks, no bony abnormality Rest, ice, elevation, wrist compression (susy wrap or splint). Tylenol (generic acetaminophen) 500 mg-2 tabs every 8 hrs. as needed for fever and aches Ibuprofen 600 mg (3-200mg tablets) every 6 hours if pain persists beyond 10-14 days there are times where a repeat x-ray is needed to rule out occult fracture Follow up with ortho as needed Allergies As of Date: 02/16/2025 Noted Allergy Reaction TAPE (ADHESIVE TAPE (ROSINS)) 07/18/2013 2 - Rash Comments: EKG tape pleitez skin- other tape gives patient rashes Date Reviewed: 02/16/2025 Reviewed by: Sonya Crowder MA - Fully Assessed Reason for Visit: Wrist/forearm Injury [1749] Cmt: Left wrist injury fell I week ago Primary Visit Diagnosis:Left (more content not included)... Normal [facility] XR WRIST 3V PA/LAT/OBL LTon 02-16-2025 XR WRIST 3V PA/LAT/OBL LT * * *Final Report* * * DATE OF EXAM: Feb 16 2025 1:21PM WOX [id number] - XR WRIST 3V PA/LAT/OBL LT / PROCEDURE REASON: Left wrist pain * * * * Physician Interpretation * * * * TITLE: XR WRIST 3V PA/LAT/OBL LT CLINICAL INDICATION: Wrist pain TECHNIQUE: 3 view radiographic study of the left wrist COMPARISON: None FINDINGS: No acute fracture or dislocation identified. Joint spaces preserved. IMPRESSION: No radiographic evidence of acute osseous injury. Print Binding Worker: LAITH Transcribe Date/Time: Feb 16 2025 1:24P Dictated by : BERNADETTE KRISHNAN MD This examination was interpreted and the report reviewed and electronically signed by: BERNADETTE KRISHNAN MD on Feb 16 2025 1:25PM EST [id number] Normal [facility] XR Wrist - left PA and Later al and Obliqueon 02-16-2025 IMPRESSION: No radiographic evidence of acute osseous injury. Print Binding Worker: LAITH Transcribe Date/Time: Feb 16 2025 1:24P Dictated by : BERNADETTE KRISHNAN MD This examination was interpreted and the report reviewed and electronically signed by: BERNADETTE KRISHNAN MD on Feb 16 2025 1:25PM EST DIVISION OF RADIOLOGY * * *Final Report* * * DATE OF EXAM: Feb 16 2025 1:21PM WOX [id number] - XR WRIST 3V PA/LAT/OBL LT / PROCEDURE REASON: Left wrist pain * * * * Physician Interpretation * * * * TITLE: XR WRIST 3V PA/LAT/OBL LT CLINICAL INDICATION: Wrist pain TECHNIQUE: 3 view radiographic study of the left wrist COMPARISON: None FINDINGS: No acute fracture or dislocation identified. Joint spaces preserved. DIVISION OF RADIOLOGY Provider, [facility] - 02/16/2025 * * *Final Report* * * DATE OF EXAM: Feb 16 2025 1:21PM WOX [id number] - XR WRIST 3V PA/LAT/OBL LT / PROCEDURE REASON: Left wrist pain * * * * Physician Interpretation * * * * TITLE: XR WRIST 3V PA/LAT/OBL LT CLINICAL INDICATION: Wrist pain TECHNIQUE: 3 view radiographic study of the left wrist COMPARISON: None FINDINGS: No acute fracture or dislocation identified. Joint spaces preserved. IMPRESSION IMPRESSION: No radiographic evidence of acute osseous injury. Print Binding Worker: [employer] Transcribe Date/Time: Feb 16 2025 1:24P Dictated by : BERNADETTE KRISHNAN MD This examination was interpreted and the report reviewed and electronically signed by: BERNADETTE KRISHNAN MD on Feb 16 2025 1:25PM EST [facility] Radiology Study observation (narrative) [facility] XR Wrist - left PA and Later al and ObliqueOrdered By: [facility] Provider on 02-16-2025 [facility] CNOVon 02-13-2025 CNOV Office Visit (GENSMN ) OMAR GOMEZ ([id number]) 1985 F Date Time Provider Department 02/13/25 9:00 AM OMAR FERREIRA During your visit today, we recorded the following information about you: Temperature Pulse Blood pressure Weight 98.5 degrees 90/minute 147/94 109.8 kg Height Last Period 1.676 m 01/22/25 Omar Ferreira APRN.[employer] 02/13/2025 12:01 PM Signed Error in opening Gaviota Paniagua 02/13/2025 11:40 AM Signed What is the reason for your visit today? est Who is your referring physician? Omar Ferreira Are you having poor oral intake? NO Have you had unintentional weight loss of 15 lbs/7 Kg in the last 3-6 months? NO Bowels: diarrhea Wound: clean AND dry Temperature: No Drains: Yes Omar Bazzi APRN.[employer] 02/13/2025 12:[address] [facility] [facility] Date: February 13, 2025 Omar Gomez 39 year old female CHIEF COMPLAINT: Patient presents for follow up from surgery. HPI: Here for follow up after robotic bilateral TAR, incisional hernia repair with mesh and excision of prior abdominal wall mesh on 02/06/2025 by . Oamr reports significant pain, particularly on the right side, since her robotic surgery. She was discharged on 02/08 and has been managing a drain, which has been producing decreasing amounts of fluid, with the last entries showing 30 mL. She reports diarrhea twice daily and a lack of appetite, though she is able to eat intermittently. She denies emesis. She is attempting to ambulate around the house but describes her gait as resembling that of an old woman due to pain. She is not sleeping well. Surgery Date and Procedure: 02/06/2025 1. Left myofascial advancement flap 2. Right myofascial advancement flap 3. Robotic incisional hernia repair with mesh 4. Excision of prior abdominal wall mesh Randomized Controlled Trial: Robotic versus Open Ventral Hernia Repair (ROVHR) Trial Current Medications: Current Outpatient Medications Medication Sig Dispense Refill AMOXICILLIN ORAL Take by mouth. aspirin 81 mg chewable tablet Take 1 tablet by mouth once daily for 6 days. Stop 01/26/25 6 tablet 0 [Paused] aspirin 325 mg tablet Take 1 tablet by mouth once daily. Patient should start on October 22, 2024. 90 tablet 0 acetaZOLAMIDE SR (DIAMOX SEQUELS) 500 mg capsule Take 1 capsule by mouth every evening. 30 capsule 5 metFORMIN ER (GLUCOPHAGE XR) 500 mg 24 hr tablet Take 1 tablet by mouth daily with lunch for 7 days, THEN 1 tablet two times a day with meals. 187 tablet 2 acetaminophen (TYLENOL) 500 mg tablet Take 2 tablets by mouth every 6 hours as needed for pain. LORazepam (ATIVAN) 1 mg tablet Take 1 mg by mouth as needed for anxiety. venlafaxine ER (EFFEXOR XR) 75 mg 24 hr capsule Take 1 capsule by mouth every afternoon. No current facility-administered medications for this visit. REVIEW OF SYSTEMS: Constitutional: (+) decreased appetite, (+) insomnia Gastrointestinal: (+) right-sided abdominal pain, (+) diarrhea, (-) vomiting Musculoskeletal: (+) difficulty ambulating PHYSICAL EXAM: BP 147/94 Pulse 90 Temp 36.9 ?C (98.5 ?F) (Temporal) Ht 167.6 cm (5' 6) Wt 109.8 kg (242 lb 1.6 oz) LMP 01/22/2025 BMI 39.08 kg/m? General: No acute distress. Abd: Small incisions with adhesive, L RAYMUNDO drain SURGICAL PATHOLOGY: N/A ASSESSMENT/PLAN: 1. Postoperative visit (Z48.89) Patient is experiencing significant pain, particularly on the right side, likely due to the presence of a surgical drain. CT scan shows no evidence of fluid collection, clotting, or abscess. Patient has robotic incisions with adhesive. Reports of diarrhea and decreased appetite, but no emesis. Ambulation is limited due to pain. - Removed surgical drain; expect reduction in pain within 24 hours. - Provided wound care instructions: allow soap and water to run over the incision sites during showering, avoid rubbing for the first week, and apply a band-aid after drying. - Recommended Metamucil to help manage diarrhea. - Advised high-protein diet to aid healing; suggested protein-rich foods and shakes. - Encouraged ambulation as tolerated. - Prescribed oxycodone and a muscle relaxant (Robaxin or Flexeril) to reduce pain - Scheduled a virtual follow-up visit on the . Omar Ferreira, MSN, [employer] February 13, 2025 Allergies As of Date: 02/13/2025 Noted Allergy Reaction TAPE (ADHESIVE TAPE (ROSINS)) 07/18/2013 2 - Rash Comments: EKG tape pleitez skin- other tape gives patient rashes Date Reviewed: 02/13/2025 Reviewed by: Gaviota Paniagua - Fully Assessed Reason for Visit: Established Patient [175] Cmt: Primary Visit Diagnosis:Postoperative visit [Z48.89] Order(s):oxyCODONE IR (ROXICODONE) 5 mg immediate release tabletTake 1 tablet by mouth every 8 hours as needed for pain for up to 5 days.Disp: 10 table (more content not included)... Normal [facility] Abdomen/Pelvis W IV Cont ONL Yon 02-11-2025 Abdomen/Pelvis W IV Cont ONLY [facility] Imaging Services [address] [place] [address] Abdomen/Pelvis W IV Cont ONLY MR#: [id number] Acct: [id number] Name: OMAR GOMEZ Rep #: [id number] : 1985 F 39 From: Joel Saeed MD PCP: Care Physician,No Primary Status: REG ER Study: Abdomen/Pelvis W IV Cont ONLY Date of Exam: Exam# [id number] Ordering Dr: Jesse Abdullahi DO EXAM: CT Abdomen and Pelvis With Intravenous Contrast CLINICAL INDICATION: POSTOPERATIVE ABDOMINAL PAIN TECHNIQUE: Axial computed tomography images of the abdomen and pelvis with intravenous contrast. This CT exam was performed using one or more of the following dose reduction techniques: automated exposure control, adjustment of the mA and/or kV according to patient size, and/or use of iterative reconstruction technique. COMPARISON: CT Abdomen Pelvis dated 08/14/2024 FINDINGS: LUNG BASES: Dependent atelectasis, bilaterally. MEDIASTINUM: Small esophageal hiatal hernia. ABDOMEN: LIVER: Hepatomegaly with fatty infiltration. GALLBLADDER AND BILE DUCTS: Gallbladder is surgically absent. No ductal dilation. PANCREAS: Unremarkable. No mass. No ductal dilation. SPLEEN: Unremarkable. No splenomegaly. ADRENALS: Unremarkable. No mass. KIDNEYS AND URETERS: Unremarkable. No solid mass. No hydronephrosis. STOMACH AND BOWEL: Unremarkable. No obstruction. No mucosal thickening. PELVIS: APPENDIX: No findings to suggest acute appendicitis. BLADDER: Unremarkable. No mass. REPRODUCTIVE: Unremarkable as visualized. ABDOMEN and PELVIS: INTRAPERITONEAL SPACE: Unremarkable. No free air. No significant fluid collection. BONES/JOINTS: No acute fracture. No dislocation. SOFT TISSUES: Anterior ventral hernia containing fat. VASCULATURE: Unremarkable. No abdominal aortic aneurysm. LYMPH NODES: Unremarkable. No enlarged lymph nodes. TUBES, LINES AND DEVICES: Peritoneal dialysis catheter with the catheter path appearing to be in the muscle. Catheter does not course into the abdominal cavity. Clinical correlation is recommended. CT/Abdomen/Pelvis W IV Cont ONLY IMPRESSION: 1. Small esophageal hiatal hernia. 2. Hepatomegaly with fatty infiltration. 3. Anterior ventral hernia containing fat. 4. Peritoneal dialysis catheter with the catheter path appearing to be in the muscle. Catheter does not course into the abdominal cavity. Clinical correlation is recommended. Reading Location: [facility] CC: Jesse Abdullahi DO; No Primary Care Physician Print Binding Worker: Signed Normal [facility] Basic Metabolic Profile (BMP )on 02-11-2025 BUN/CRE 14.9 RATIO Normal 10-20 [facility] Comment on above: Performed By: #### L 501.2450, L500.3400, L500.2500 ####[facility] [address] [place], [address] Calcium [Mass/Vol] 8.6 mg/dL Normal 7.6-11.0 [facility] Comment on above: Performed By: #### L 501.2450, L500.3400, L500.2500 ####[facility] [address] [place], [address] Chloride [Moles/Vol] 104 mmol/L Normal 98-108 [facility] Comment on above: Performed By: #### L 501.2450, L500.3400, L500.2500 ####[facility] [address] [place], [address] CO2 [Moles/Vol] 20.8 mmol/L Low 21.0-32.0 [facility] Comment on above: Performed By: #### L 501.2450, L500.3400, L500.2500 ####[facility] [address] [place], [address] Creatinine [Mass/Vol] 0.74 mg/dL Normal 0.70-1.20 [facility] Comment on above: Performed By: #### L 501.2450, L500.3400, L500.2500 ####[facility] [address] [place], [address] ECRCL 132.08 ml/min Normal 50-250 [facility] Comment on above: Performed By: #### L 501.2450, L500.3400, L500.2500 ####[facility] [address] [place], [address] GAP 13 Normal 5-15 [facility] Comment on above: Performed By: #### L 501.2450, L500.3400, L500.2500 ####[facility] [address] [place], [address] GFR/1.73 sq M.predicted among non-blacks MDRD (S/P/Bld) [Vol rate/Area] 107 mL/min/{1.73_m2} Normal >60 [facility] Comment on above: Result Comment: mL/m in/1.73m2 CKD-EPI Creatinine Equation (2020) Performed By: #### L 501.2450, L500.3400, L500.2500 ####[facility] [address] [place], [address] Glucose [Mass/Vol] 101 mg/dL High 70-99 [facility] Comment on above: Performed By: #### L 501.2450, L500.3400, L500.2500 ####[facility] [address] [place], [address] Potassium [Moles/Vol] 4.0 mmol/L Normal 3.3-5.1 [facility] Comment on above: Result Comment: Hemo lysis present, Results??could be affected. ?? Performed By: #### L 501.2450, L500.3400, L500.2500 ####[facility] [address] [place], [address] Sodium [Moles/Vol] 138 mmol/L Normal 133-145 [facility] Comment on above: Performed By: #### L 501.2450, L500.3400, L500.2500 ####[facility] [address] [place], [address] Urea nitrogen [Mass/Vol] 11 mg/dL Normal 4-19 [facility] Comment on above: Performed By: #### L 501.2450, L500.3400, L500.2500 ####[facility] [address] [place], [address] CBC W/Diff, Automatedon 06-0 4-5 Absolute Lymph 2.07 X10 3/uL Normal 0.83-4.51 [facility] Comment on above: Performed By: #### L 100.0100, L503.6005 ####[facility] [address] [place], [address] Absolute Neut 9.4 X10 3/uL High 2.0-7.7 [facility] Comment on above: Performed By: #### L 100.0100, L503.6005 ####[facility] [address] [place], [address] Basophils/100 WBC (Bld) 0.3 % Normal 0-1 [facility] Comment on above: Performed By: #### L 100.0100, L503.6005 ####[facility] [address] [place], [address] Eosinophils/100 WBC (Bld) 3.2 % Normal 0-5 [facility] Comment on above: Performed By: #### L 100.0100, L503.6005 ####[facility] [address] [place], [address] Erythrocyte distribution width (RBC) [Ratio] 15.7 % High 11.6-14.6 [facility] Comment on above: Performed By: #### L 100.0100, L503.6005 ####[facility] [address] [place], [address] Hematocrit (Bld) [Volume fraction] 33.4 % Low 37-47 [facility] Comment on above: Performed By: #### L 100.0100, L503.6005 ####[facility] [address] [place], [address] Hemoglobin (Bld) [Mass/Vol] 10.1 g/dL Low 12.0-15.0 [facility] Comment on above: Performed By: #### L 100.0100, L503.6005 ####[facility] [address] [place], [address] IG% 0.500 Normal 0.0-0.9 [facility] Comment on above: Result Comment: IG% - Immature Granulocytes (promyelocytes, myelocytes and metamyelocytes) > 1% indicates that a LEFT SHIFT is Present. Performed By: #### L 100.0100, L503.6005 ####[facility] [address] [place], [address] Lymphocytes/100 WBC (Bld) 15.9 % Low 19-41 [facility] Comment on above: Performed By: #### L 100.0100, L503.6005 ####[facility] [address] [place], [address] MCH (RBC) [Entitic mass] 21.7 pg Low 27.0-32.0 [facility] Comment on above: Performed By: #### L 100.0100, L503.6005 ####[facility] [address] [place], [address] MCHC (RBC) [Mass/Vol] 30.2 g/dL Low 32-36 [facility] Comment on above: Performed By: #### L 100.0100, L503.6005 ####[facility] [address] [place], [address] MCV (RBC) [Entitic vol] 71.7 fL Low 81-99 [facility] Comment on above: Performed By: #### L 100.0100, L503.6005 ####[facility] [address] [place], [address] Monocytes/100 WBC (Bld) 7.7 % Normal 0-10 [facility] Comment on above: Performed By: #### L 100.0100, L503.6005 ####[facility] [address] [place], [address] Neutrophils/100 WBC (Bld) 72.4 % High 47-70 [facility] Comment on above: Performed By: #### L 100.0100, L503.6005 ####[facility] [address] [place], [address] Nucleated RBC (Bld) [#/Vol] 0 10*3/uL Normal 0-5 [facility] Comment on above: Performed By: #### L 100.0100, L503.6005 ####[facility] [address] [place], [address] Platelet mean volume (Bld) [Entitic vol] 8.9 fL Normal 6.2-12.0 [facility] Comment on above: Performed By: #### L 100.0100, L503.6005 ####[facility] [address] [place], [address] Platelets (Bld) [#/Vol] 333 10*3/uL Normal 150-450 [facility] Comment on above: Performed By: #### L 100.0100, L503.6005 ####[facility] [address] [place], [address] RBC (Bld) [#/Vol] 4.66 10*6/uL Normal 4.2-5.4 [facility] Comment on above: Performed By: #### L 100.0100, L503.6005 ####[facility] [address] [place], [address] RDW SD 39.7 fl Normal 35.1-43.9 [facility] Comment on above: Performed By: #### L 100.0100, L503.6005 ####[facility] [address] [place], [address] WBC (Bld) [#/Vol] 13.0 10*3/uL High 4.4-11.0 [facility] Comment on above: Performed By: #### L 100.0100, L503.6005 ####[facility] [address] [place], [address] Emergency Department Summary on 02-11-2025 Emergency Department Summary [facility] Medical Records Department [address] [place] [address] Emergency Department Summary 02/11/25 MR#: [id number] Acct: [id number] Name: OMAR GOMEZ Rep #: [id number] : 1985 39 From: Jesse Abdullahi DO PCP: Care Physician,No Primary Status:REG ER Location: ED ADDENDUM by Dr. Kennedy Trevino MD on 02/11/25 at 1113 Clinical Impression(s) from Imaging Studies Abdomen/Pelvis CT 02/11/25 05:44 IMPRESSION: 1. Small esophageal hiatal hernia. 2. Hepatomegaly with fatty infiltration. 3. Anterior ventral hernia containing fat. 4. Peritoneal dialysis catheter with the catheter path appearing to be in the muscle. Catheter does not course into the abdominal cavity. Clinical correlation is recommended. Reading Location: [facility] Patient checked out to me pending CT results. This took several hours. I reviewed the images and the results, I disagree with 1 part of them; radiology interpreted the catheter as a peritoneal dialysis catheter that is abnormally placed. The patient is not a dialysis patient, this is a surgical drain, it is sitting in the abdominal wall, it is actively draining the patient has been emptied her drain periodically, it appears to be working properly, and I do not think its placement is an issue. She has more pain on the right and may be because the end of the drain lies in the right mid abdominal wall. Her abdomen is nonsurgical right now, and other than small periumbilical fat-containing hernia areas, the CT is benign. I relayed this information to the patient. She has oxycodone at home, I am giving her another dose of pain medication prior to discharge, she is advised to contact her surgeon and I discussed with the CT to send the pictures to the [facility] beverage server so they have access to them when she follows up, her next follow-up is scheduled for 2 days. 02/11/25 1113 Cosigner Signature (if applicable): cc: No Primary Care Physician * Signed HPI History of Present Illness Chief Complaint: Abd Pain Informant: patient Narrative Narrative: Patient is a 39-year-old female with past medical history of anxiety PTSD and previous kidney stones. She recently underwent abdominal surgery at [facility] on February 06 and had multiple abdominal hernias repaired laparoscopically. Patient states she was kept in the hospital till Sunday and discharged home. She states she had pain but it was bearable. She reports that on Sunday she developed increasing pain mainly along the right side of her abdomen with bouts of nausea and vomiting. She states she took the oxycodone which was prescribed after surgery without much symptom improvement. She does states she contacted her surgeon on Sunday because of the increasing pain and reportedly was advised that she would be contacted the next day to see how she was feeling. The patient states that throughout the night the symptoms have continuously worsened and they have not improved with taking the oxycodone and therefore she comes in for evaluation. She denies any fevers or chills or dysuria. She states there is no blood or discoloration to her emesis. She reports that she has been on a laxative and is having diarrhea and therefore denies any constipation. [facility] Medical History Left ureteral calculus Bruising [...] / Time adhesive tape AdvReac Other Verified 02/11/25 05:25 Surgical History (Updated 02/11/25 @ 05:26 by Vishal Rao) H/O hernia repair S/P MANAGER SITE shunt Hx of cystoscopy History of urethral stent Hx of dilation and curettage Hx of tympanostomy tubes H (more content not included)... Normal [facility] Lactic Acidon 02-11-2025 Lactate [Moles/Vol] 1.4 mmol/L Normal 0.0-2.0 [facility] Comment on above: Order Comment: Y Performed By: #### L 100.0100, L503.6005 ####[facility] [address] [place], [address] Lipaseon 02-11-2025 Lipase [Catalytic activity/Vol] 14 U/L Normal 13-75 [facility] Comment on above: Result Comment: Serg canales note: LIPASE revised reference range effective 22. New Lipase methodology. Expected to produce lower values than the previous assay method. NEW Reference Range: 13 - 75 U/L Performed By: #### L 500.2500, L100.0100, L501.4020 #### [facility] [address] [place], [address] Liver Profileon 02-11-2025 Albumin [Mass/Vol] 3.5 g/dL Normal 3.5-5.0 [facility] Comment on above: Performed By: #### L 500.2500, L100.0100, L501.4020 #### [facility] [address] [place], [address] ALK PHOS 106 U/L High 35-104 [facility] Comment on above: Performed By: #### L 500.2500, L100.0100, L501.4020 #### [facility] [address] [place], [address] ALT [Catalytic activity/Vol] 65 U/L High <=34 [facility] Comment on above: Performed By: #### L 500.2500, L100.0100, L501.4020 #### [facility] [address] [place], [address] AST [Catalytic activity/Vol] 73 U/L High <=31 [facility] Comment on above: Result Comment: Hemo lysis present, Results??could be affected. ?? Performed By: #### L 500.2500, L100.0100, L501.4020 #### [facility] [address] [place], [address] Bilirubin [Mass/Vol] 0.32 mg/dL Normal 0.00-1.30 [facility] Comment on above: Performed By: #### L 500.2500, L100.0100, L501.4020 #### [facility] [address] [place], [address] Bilirubin.direct [Mass/Vol] 0.08 mg/dL Normal 0.00-0.30 [facility] Comment on above: Result Comment: Hemo lysis present, Results??could be affected. ?? Performed By: #### L 500.2500, L100.0100, L501.4020 #### [facility] [address] [place], [address] Globulin (S) [Mass/Vol] 3.5 g/dL Normal 2.2-4.2 [facility] Comment on above: Performed By: #### L 500.2500, L100.0100, L501.4020 #### [facility] [address] [place], [address] T PROT 7.0 g/dL Normal 5.9-8.4 [facility] Comment on above: Performed By: #### L 500.2500, L100.0100, L501.4020 #### [facility] [address] [place], [address] Urinalysis, Completeon 02-11 BACTERIA 2+ /hpf Normal None Seen [facility] Comment on above: Order Comment: COLLE CTOR TO SPECIFY Performed By: #### L 400.0001 ####[facility] [address] [place], [address] EPI,SQUAMOUS 5-10 SEEN Normal 5-10 [facility] Comment on above: Order Comment: COLLE CTOR TO SPECIFY Performed By: #### L 400.0001 ####[facility] [address] [place], [address] WBC 0-5 SEEN Normal 0-5 [facility] Comment on above: Order Comment: ERIC CTOR TO SPECIFY Performed By: #### L 400.0001 ####[facility] [address] [place], [address] Mucus Ql (Urine sed) 0 SEEN Normal [facility] Comment on above: Order Comment: ERIC CTOR TO SPECIFY Performed By: #### L 400.0001 ####[facility] [address] [place], [address] RBC 0 SEEN Normal 0-5 [facility] Comment on above: Order Comment: ERIC CTOR TO SPECIFY Performed By: #### L 400.0001 ####[facility] [address] [place], [address] Basic metabolic 2000 panelon 02-08-2025 Anion gap [Moles/Vol] 17 mmol/L High 8-15 [facility] Comment on above: Order Comment: Speci men Type: BLOOD SPECIMEN Ordering Facility: [facility] Address: [address] [place] [address] Performed By: #### A SPCL, ASPCLP #### [facility] CLIA [id number] [address] [place] [address] [place] Calcium [Mass/Vol] 8.1 mg/dL Low 8.5-10.2 [facility] Comment on above: Order Comment: Speci men Type: BLOOD SPECIMEN Ordering Facility: [facility] Address: [address] [place] [address] Performed By: #### A SPCL, ASPCLP #### [facility] CLIA [id number] [address] [place] [address] [place] Chloride [Moles/Vol] 101 mmol/L Normal 98-107 [facility] Comment on above: Order Comment: Speci men Type: BLOOD SPECIMEN Ordering Facility: [facility] Address: [address] [place] [address] Performed By: #### A SPCL, ASPCLP #### [facility] CLIA [id number] [address] [place] [address] [place] CO2 [Moles/Vol] 21 mmol/L Low 22-30 [facility] Comment on above: Order Comment: Speci men Type: BLOOD SPECIMEN Ordering Facility: [facility] Address: [address] [place] [address] Performed By: #### A SPCL, ASPCLP #### [facility] CLIA [id number] [address] [place] [address] [place] Creatinine [Mass/Vol] 0.71 mg/dL Normal 0.58-0.96 [facility] Comment on above: Order Comment: Speci men Type: BLOOD SPECIMEN Ordering Facility: [facility] Address: [address] [place] [address] Performed By: #### A SPCL, ASPCLP #### [facility] CLIA [id number] [address] [place] [address] [place] Creatinine and Glomerular filtration rate.predicted panel (S/P/Bld) 112 mL/min/1.73m??? Normal >=60 [facility] Comment on above: Order Comment: Speci men Type: BLOOD SPECIMEN Ordering Facility: [facility] Address: [address] [place] [address] Result Comment: Bhavya mated Glomerular Filtration Rate [...] accurately reflect actual GFR. Performed By: #### A SPCL, ASPCLP #### [facility] CLIA [id number] [address] [place] [address] [place] Glucose [Mass/Vol] 29 mg/dL Critically low 74-99 [facility] Comment on above: Order Comment: Speci men Type: BLOOD SPECIMEN Ordering Facility: [facility] Address: [address] [place] [address] Result Comment: The [place] [employer] (ADA) provides guidance for cutoff [...] Standards of Medical Care in Diabetes 2016, [place] [employer]. Diabetes Care. 2016.39(Suppl 1). Performed By: #### A SPCL, ASPCLP #### [facility] CLIA [id number] [address] [place] [address] [place] Potassium [Moles/Vol] 4.2 mmol/L Normal 3.7-5.1 [facility] Comment on above: Order Comment: Speci men Type: BLOOD SPECIMEN Ordering Facility: [facility] Address: [address] [place] [address] Performed By: #### A SPCL, ASPCLP #### [facility] CLIA [id number] [address] [place] [address] [place] Sodium [Moles/Vol] 139 mmol/L Normal 136-144 [facility] Comment on above: Order Comment: Speci men Type: BLOOD SPECIMEN Ordering Facility: [facility] Address: [address] [place] [address] Performed By: #### A SPCL, ASPCLP #### [facility] CLIA [id number] [address] [place] [address] [place] Urea nitrogen [Mass/Vol] 10 mg/dL Normal 7-21 [facility] Comment on above: Order Comment: Speci men Type: BLOOD SPECIMEN Ordering Facility: [facility] Address: [address] [place] [address] Performed By: #### A SPCL, ASPCLP #### [facility] CLIA [id number] [address] [place] [address] [place] CBC W Auto Differential pane l (Bld)on 02-08-2025 Basophils (Bld) [#/Vol] 0.04 10*3/uL Normal <0.11 [facility] Comment on above: Order Comment: Speci men Type: BLOOD SPECIMEN Ordering Facility: [facility] Address: [address] [place] [address] Performed By: #### A SPCL, ASPCLP #### [facility] CLIA [id number] [address] [place] [address] [place] Basophils/100 WBC (Bld) 0.4 % Normal [facility] Comment on above: Order Comment: Speci men Type: BLOOD SPECIMEN Ordering Facility: [facility] Address: [address] [place] [address] Performed By: #### A SPCL, ASPCLP #### [facility] CLIA [id number] [address] [place] [address] [place] Differential cell count method Nom (Bld) Auto Normal [facility] Comment on above: Order Comment: Speci men Type: BLOOD SPECIMEN Ordering Facility: [facility] Address: [address] [place] [address] Performed By: #### A SPCL, ASPCLP #### [facility] CLIA [id number] [address] [place] [address] [place] Eosinophils (Bld) [#/Vol] 0.33 10*3/uL Normal <0.46 [facility] Comment on above: Order Comment: Speci men Type: BLOOD SPECIMEN Ordering Facility: [facility] Address: [address] [place] [address] Performed By: #### A SPCL, ASPCLP #### [facility] CLIA [id number] [address] [place] [address] [place] Eosinophils/100 WBC (Bld) 3.0 % Normal [facility] Comment on above: Order Comment: Speci men Type: BLOOD SPECIMEN Ordering Facility: [facility] Address: [address] [place] [address] Performed By: #### A SPCL, ASPCLP #### [facility] CLIA [id number] [address] [place] [address] [place] Erythrocyte distribution width (RBC) [Ratio] 16.4 % High 11.5-15.0 [facility] Comment on above: Order Comment: Speci men Type: BLOOD SPECIMEN Ordering Facility: [facility] Address: [address] [place] [address] Performed By: #### A SPCL, ASPCLP #### [facility] CLIA [id number] [address] [place] [address] [place] Hematocrit (Bld) [Volume fraction] 32.6 % Low 36.0-46.0 [facility] Comment on above: Order Comment: Speci men Type: BLOOD SPECIMEN Ordering Facility: [facility] Address: [address] [place] [address] Performed By: #### A SPCL, ASPCLP #### [facility] CLIA [id number] [address] [place] [address] [place] Hemoglobin (Bld) [Mass/Vol] 8.9 g/dL Low 11.5-15.5 [facility] Comment on above: Order Comment: Speci men Type: BLOOD SPECIMEN Ordering Facility: [facility] Address: [address] [place] [address] Performed By: #### A SPCL, ASPCLP #### [facility] CLIA [id number] [address] [place] [address] [place] Immature granulocytes (Bld) [#/Vol] 0.04 10*3/uL Normal <0.10 [facility] Comment on above: Order Comment: Speci men Type: BLOOD SPECIMEN Ordering Facility: [facility] Address: [address] [place] [address] Performed By: #### A SPCL, ASPCLP #### [facility] CLIA [id number] [address] [place] [address] [place] Immature granulocytes/100 WBC (Bld) 0.4 % Normal [facility] Comment on above: Order Comment: Speci men Type: BLOOD SPECIMEN Ordering Facility: [facility] Address: [address] [place] [address] Performed By: #### A SPCL, ASPCLP #### [facility] CLIA [id number] [address] [place] [address] [place] Lymphocytes (Bld) [#/Vol] 1.78 10*3/uL Normal 1.00-4.00 [facility] Comment on above: Order Comment: Speci men Type: BLOOD SPECIMEN Ordering Facility: [facility] Address: [address] [place] [address] Performed By: #### A SPCL, ASPCLP #### [facility] CLIA [id number] [address] [place] [address] [place] Lymphocytes/100 WBC (Bld) 16.1 % Normal [facility] Comment on above: Order Comment: Speci men Type: BLOOD SPECIMEN Ordering Facility: [facility] Address: [address] [place] [address] Performed By: #### A SPCL, ASPCLP #### [facility] CLIA [id number] [address] [place] [address] [place] MCH (RBC) [Entitic mass] 21.2 pg Low 26.0-34.0 [facility] Comment on above: Order Comment: Speci men Type: BLOOD SPECIMEN Ordering Facility: [facility] Address: [address] [place] [address] Performed By: #### A SPCL, ASPCLP #### [facility] CLIA [id number] [address] [place] [address] [place] MCHC (RBC) [Mass/Vol] 27.3 g/dL Low 30.5-36.0 [facility] Comment on above: Order Comment: Speci men Type: BLOOD SPECIMEN Ordering Facility: [facility] Address: [address] [place] [address] Performed By: #### A SPCL, ASPCLP #### [facility] CLIA [id number] [address] [place] [address] [place] MCV (RBC) [Entitic vol] 77.6 fL Low 80.0-100.0 [facility] Comment on above: Order Comment: Speci men Type: BLOOD SPECIMEN Ordering Facility: [facility] Address: [address] [place] [address] Performed By: #### A SPCL, ASPCLP #### [facility] CLIA [id number] [address] [place] [address] [place] Monocytes (Bld) [#/Vol] 0.86 10*3/uL Normal <0.87 [facility] Comment on above: Order Comment: Speci men Type: BLOOD SPECIMEN Ordering Facility: [facility] Address: [address] [place] [address] Performed By: #### A SPCL, ASPCLP #### [facility] CLIA [id number] [address] [place] [address] [place] Monocytes/100 WBC (Bld) 7.8 % Normal [facility] Comment on above: Order Comment: Speci men Type: BLOOD SPECIMEN Ordering Facility: [facility] Address: [address] [place] [address] Performed By: #### A SPCL, ASPCLP #### [facility] CLIA [id number] [address] [place] [address] [place] Neutrophils (Bld) [#/Vol] 8.03 10*3/uL High 1.45-7.50 [facility] Comment on above: Order Comment: Speci men Type: BLOOD SPECIMEN Ordering Facility: [facility] Address: [address] [place] [address] Performed By: #### A SPCL, ASPCLP #### [facility] CLIA [id number] [address] [place] [address] [place] Neutrophils/100 WBC (Bld) 72.3 % Normal [facility] Comment on above: Order Comment: Speci men Type: BLOOD SPECIMEN Ordering Facility: [facility] Address: [address] [place] [address] Performed By: #### A SPCL, ASPCLP #### [facility] CLIA [id number] [address] [place] [address] [place] Nucleated RBC (Bld) [#/Vol] 10*3/uL Normal <0.01 [facility] Comment on above: Order Comment: Speci men Type: BLOOD SPECIMEN Ordering Facility: [facility] Address: [address] [place] [address] Performed By: #### A SPCL, ASPCLP #### [facility] CLIA [id number] [address] [place] [address] [place] Nucleated RBC/100 WBC (Bld) [Ratio] 0.0 /100 WBC Normal [facility] Comment on above: Order Comment: Speci men Type: BLOOD SPECIMEN Ordering Facility: [facility] Address: [address] [place] [address] Performed By: #### A SPCL, ASPCLP #### [facility] CLIA [id number] [address] [place] [address] [place] Platelet mean volume (Bld) [Entitic vol] 9.9 fL Normal 9.0-12.7 [facility] Comment on above: Order Comment: Speci men Type: BLOOD SPECIMEN Ordering Facility: [facility] Address: [address] [place] [address] Performed By: #### A SPCL, ASPCLP #### [facility] CLIA [id number] [address] [place] [address] [place] Platelets (Bld) [#/Vol] 297 10*3/uL Normal 150-400 [facility] Comment on above: Order Comment: Speci men Type: BLOOD SPECIMEN Ordering Facility: [facility] Address: [address] [place] [address] Performed By: #### A SPCL, ASPCLP #### [facility] CLIA [id number] [address] [place] [address] [place] RBC (Bld) [#/Vol] 4.20 10*6/uL Normal 3.90-5.20 [facility] Comment on above: Order Comment: Speci men Type: BLOOD SPECIMEN Ordering Facility: [facility] Address: [address] [place] [address] Performed By: #### A SPCL, ASPCLP #### [facility] CLIA [id number] [address] [place] [address] [place] WBC (Bld) [#/Vol] 11.08 10*3/uL High 3.70-11.00 [facility] Comment on above: Order Comment: Speci men Type: BLOOD SPECIMEN Ordering Facility: [facility] Address: [address] [place] [address] Performed By: #### A SPCL, ASPCLP #### [facility] CLIA [id number] [address] [place] [address] [place] CRP SerPl-mCncon 02-08-2025 CRP [Mass/Vol] 3.7 mg/dL High <0.9 [facility] Comment on above: Order Comment: Speci men Type: BLOOD SPECIMEN Ordering Facility: [facility] Address: [address] [place] [address] Performed By: #### A SPCL, ASPCLP #### [facility] CLIA [id number] [address] [place] [address] [place] MEDICAL EMERon 02-08-2025 MEDICAL SARAH HNO ID: [id number] Author: Bentley BARAJAS MD Service: Anesthesiology Author [...] Started to become dizzy with increased nausea. Mayuri was able to lay herself down onto bathroom floor and called for . said door was closed, but he was just outside. She was helped back to her feet and assisted back to bed. Mayuri did not pass out, nor did she hit her head or any other body part. Mayuri has a history of palpitations, and many [...] 4 teeth pulled WHI DELIVERY SCHEDULING ORDER [facility] PERTINENT PHYSICAL EXAM and INITIAL ASSESSMENT (For [...] and EOM's intact Lungs: clear Peripheral 02/07/252299 [facility] Short Right Forearm 22 Gauge (Active) Placement Date/Time: 02/07/252299 Line, Drain, Airway Placed by: [facility] Type of Peripheral Line: Short Location: Right [...] February 08, 2025 TIME: 6:17 AM Normal [facility] Magnesium SerPl-mCncon 02-08 Magnesium [Mass/Vol] 2.3 mg/dL Normal 1.7-2.3 [facility] Comment on above: Order Comment: Speci men Type: BLOOD SPECIMEN Ordering Facility: [facility] Address: [address] [place] [address] Performed By: #### A SPCL, ASPCLP #### [facility] CLIA [id number] [address] [place] [address] NURSING PROGon 02-08-2025 NURSING PROG HNO ID: [id number] Author: DELPHINE VILLALTA RN Service: Nursing Author Type: Registered Nurse Type: Nursing Progress Note Filed: 02/08/2025 06:09 Note Text: Nursing Progress Note [employer] Coordinator Assessment Note Patient Name: Omar Gomez Patient Location: H071 [id number]/H071-21 Patient Vitals for the past 4 hrs: BP Temp Temp src Pulse Resp SpO2 02/08/25 0550 135/86 36.8 ?C (98.2 ?F) Oral 74 16 96 % Status Change Related to: Cardiac Issues (See Nursing Clinical Assessment For Details) The Following People Were Notified: Code/Rapid Response Team;Personal Attendant/Provider: Ronak Escalante See Documentation Related to: Code/Rapid Response;Labs;Point of Care Testing Additional Comments : Patient stated that she was feeling dizzy/nauseus on toilet and laid down to prevent loss of consciousness, EKG and BGL taken This note was completed by: Delphine Villalta RN Normal [facility] Phosphate SerPl-mCncon 02-08 Phosphate [Mass/Vol] 2.9 mg/dL Normal 2.7-4.8 [facility] Comment on above: Order Comment: Speci men Type: BLOOD SPECIMEN Ordering Facility: [facility] Address: [address] [place] [address] Performed By: #### A SPCL, ASPCLP #### [facility] CLIA [id number] [address] [place], [place] [address] [place] Basic metabolic 2000 panelon 02-07-2025 Anion gap [Moles/Vol] 12 mmol/L Normal 8-15 [facility] Comment on above: Order Comment: Speci men Type: BLOOD SPECIMEN Ordering Facility: [facility] Address: [address] [place] [address] Performed By: #### 2 2, , 1988-01, 2776-09 #### [facility] CLIA [id number] [address] [place] [address] [place] Calcium [Mass/Vol] 7.9 mg/dL Low 8.5-10.2 [facility] Comment on above: Order Comment: Speci men Type: BLOOD SPECIMEN Ordering Facility: [facility] Address: [address] [place] [address] Performed By: #### 2 2, , 1988-01, 2776-09 #### [facility] CLIA [id number] [address] [place] [address] [place] Chloride [Moles/Vol] 107 mmol/L Normal 98-107 [facility] Comment on above: Order Comment: Speci men Type: BLOOD SPECIMEN Ordering Facility: [facility] Address: [address] [place] [address] Performed By: #### 2 432-2, , 1988-01, 2776-09 #### [facility] CLIA [id number] [address] [place], [place] [address] [place] CO2 [Moles/Vol] 20 mmol/L Low 22-30 [facility] Comment on above: Order Comment: Evaristo griffin Type: BLOOD SPECIMEN Ordering Facility: [facility] Address: [address] [place] [address] Performed By: #### 2 4321-2, , 2776-09 #### [facility] CLIA [id number] [address] [place] [address] [place] Creatinine [Mass/Vol] 0.64 mg/dL Normal 0.58-0.96 [facility] Comment on above: Order Comment: Carolinai men Type: BLOOD SPECIMEN Ordering Facility: [facility] Address: [address] [place] [address] Performed By: #### 2 432-2, , 2776-09 #### [facility] CLIA [id number] [address] [place] [address] [place] Creatinine and Glomerular filtration rate.predicted panel (S/P/Bld) 117 mL/min/1.73m??? Normal >=60 [facility] Comment on above: Order Comment: Evaristo griffin Type: BLOOD SPECIMEN Ordering Facility: [facility] Address: [address] [place] [address] Result Comment: Bhavya mated Glomerular Filtration Rate [...] actual GFR. Performed By: #### 2 4321-2, , 2776-09 #### [facility] CLIA [id number] [address] [place], [place] [address] [place] Glucose [Mass/Vol] 99 mg/dL Normal 74-99 [facility] Comment on above: Order Comment: Carolinai men Type: BLOOD SPECIMEN Ordering Facility: [facility] Address: [address] [place], [place] [address] Result Comment: The [place] [employer] (ADA) provides guidance for cutoff [...] Standards of Medical Care in Diabetes 2016, [place] [employer]. Diabetes Care. 2016.39(Suppl 1). Performed By: #### 2 4320-10, , 2776-09 #### [facility] CLIA [id number] [address] [place] [address] [place] Potassium [Moles/Vol] 4.0 mmol/L Normal 3.7-5.1 [facility] Comment on above: Order Comment: Speci men Type: BLOOD SPECIMEN Ordering Facility: [facility] Address: [address] [place] [address] Performed By: #### 2 4320-10, , 2776-09 #### [facility] CLIA [id number] [address] [place], [place] [address] [place] Sodium [Moles/Vol] 139 mmol/L Normal 136-144 [facility] Comment on above: Order Comment: Speci men Type: BLOOD SPECIMEN Ordering Facility: [facility] Address: [address] [place], [place] [address] Performed By: #### 2 4320-10, , 2776-09 #### [facility] CLIA [id number] [address] [place] [address] [place] Urea nitrogen [Mass/Vol] 8 mg/dL Normal 7-21 [facility] Comment on above: Order Comment: Speci men Type: BLOOD SPECIMEN Ordering Facility: [facility] Address: [address] [place] [address] Performed By: #### 2 4321-2, 27935-5, 1987-5, 2777-1 #### [facility] CLIA [id number] [address] [place] [address] [place] CBC W Auto Differential pane l (Bld)on 02-07-2025 Basophils (Bld) [#/Vol] 0.06 10*3/uL Normal <0.11 [facility] Comment on above: Order Comment: Speci men Type: BLOOD SPECIMEN Ordering Facility: [facility] Address: [address] [place] [address] Performed By: #### 5 7021-8 #### [facility] CLIA [id number] [address] [place] [address] [place] Basophils/100 WBC (Bld) 0.4 % Normal [facility] Comment on above: Order Comment: Speci men Type: BLOOD SPECIMEN Ordering Facility: [facility] Address: [address] [place] [address] Performed By: #### 5 7021-8 #### [facility] CLIA [id number] [address] [place] [address] [place] Differential cell count method Nom (Bld) Auto Normal [facility] Comment on above: Order Comment: Speci men Type: BLOOD SPECIMEN Ordering Facility: [facility] Address: [address] [place] [address] Performed By: #### 5 7021-8 #### [facility] CLIA [id number] [address] [place] [address] [place] Eosinophils (Bld) [#/Vol] 0.08 10*3/uL Normal <0.46 [facility] Comment on above: Order Comment: Speci men Type: BLOOD SPECIMEN Ordering Facility: [facility] Address: [address] [place] [address] Performed By: #### 5 7021-8 #### [facility] CLIA [id number] [address] [place] [address] [place] Eosinophils/100 WBC (Bld) 0.6 % Normal [facility] Comment on above: Order Comment: Speci men Type: BLOOD SPECIMEN Ordering Facility: [facility] Address: [address] [place] [address] Performed By: #### 5 7021-8 #### [facility] CLIA [id number] [address] [place] [address] [place] Erythrocyte distribution width (RBC) [Ratio] 15.7 % High 11.5-15.0 [facility] Comment on above: Order Comment: Speci men Type: BLOOD SPECIMEN Ordering Facility: [facility] Address: [address] [place] [address] Performed By: #### 5 7021-8 #### [facility] CLIA [id number] [address] [place] [address] [place] Hematocrit (Bld) [Volume fraction] 29.2 % Low 36.0-46.0 [facility] Comment on above: Order Comment: Speci men Type: BLOOD SPECIMEN Ordering Facility: [facility] Address: [address] [place] [address] Performed By: #### 5 7021-8 #### [facility] CLIA [id number] [address] [place] [address] [place] Hemoglobin (Bld) [Mass/Vol] 8.5 g/dL Low 11.5-15.5 [facility] Comment on above: Order Comment: Speci men Type: BLOOD SPECIMEN Ordering Facility: [facility] Address: [address] [place] [address] Performed By: #### 5 7021-8 #### [facility] CLIA [id number] [address] [place] [address] [place] Immature granulocytes (Bld) [#/Vol] 0.07 10*3/uL Normal <0.10 [facility] Comment on above: Order Comment: Speci men Type: BLOOD SPECIMEN Ordering Facility: [facility] Address: [address] [place] [address] Performed By: #### 5 7021-8 #### [facility] CLIA [id number] [address] [place] [address] [place] Immature granulocytes/100 WBC (Bld) 0.5 % Normal [facility] Comment on above: Order Comment: Speci men Type: BLOOD SPECIMEN Ordering Facility: [facility] Address: [address] [place] [address] Performed By: #### 5 7021-8 #### [facility] CLIA [id number] [address] [place] [address] [place] Lymphocytes (Bld) [#/Vol] 2.13 10*3/uL Normal 1.00-4.00 [facility] Comment on above: Order Comment: Speci men Type: BLOOD SPECIMEN Ordering Facility: [facility] Address: [address] [place] [address] Performed By: #### 5 7021-8 #### [facility] CLIA [id number] [address] [place] [address] [place] Lymphocytes/100 WBC (Bld) 15.7 % Normal [facility] Comment on above: Order Comment: Speci men Type: BLOOD SPECIMEN Ordering Facility: [facility] Address: [address] [place] [address] Performed By: #### 5 7021-8 #### [facility] CLIA [id number] [address] [place] [address] [place] MCH (RBC) [Entitic mass] 21.3 pg Low 26.0-34.0 [facility] Comment on above: Order Comment: Speci men Type: BLOOD SPECIMEN Ordering Facility: [facility] Address: [address] [place] [address] Performed By: #### 5 7021-8 #### [facility] CLIA [id number] [address] [place] [address] [place] MCHC (RBC) [Mass/Vol] 29.1 g/dL Low 30.5-36.0 [facility] Comment on above: Order Comment: Speci men Type: BLOOD SPECIMEN Ordering Facility: [facility] Address: [address] [place] [address] Performed By: #### 5 7021-8 #### [facility] CLIA [id number] [address] [place] [address] [place] MCV (RBC) [Entitic vol] 73.2 fL Low 80.0-100.0 [facility] Comment on above: Order Comment: Speci men Type: BLOOD SPECIMEN Ordering Facility: [facility] Address: [address] [place] [address] Performed By: #### 5 7021-8 #### [facility] CLIA [id number] [address] [place] [address] [place] Monocytes (Bld) [#/Vol] 1.05 10*3/uL High <0.87 [facility] Comment on above: Order Comment: Speci men Type: BLOOD SPECIMEN Ordering Facility: [facility] Address: [address] [place] [address] Performed By: #### 5 7021-8 #### [facility] CLIA [id number] [address] [place] [address] [place] Monocytes/100 WBC (Bld) 7.7 % Normal [facility] Comment on above: Order Comment: Speci men Type: BLOOD SPECIMEN Ordering Facility: [facility] Address: [address] [place] [address] Performed By: #### 5 7021-8 #### [facility] CLIA [id number] [address] [place] [address] [place] Neutrophils (Bld) [#/Vol] 10.16 10*3/uL High 1.45-7.50 [facility] Comment on above: Order Comment: Speci men Type: BLOOD SPECIMEN Ordering Facility: [facility] Address: [address] [place] [address] Performed By: #### 5 7021-8 #### [facility] CLIA [id number] [address] [place] [address] [place] Neutrophils/100 WBC (Bld) 75.1 % Normal [facility] Comment on above: Order Comment: Speci men Type: BLOOD SPECIMEN Ordering Facility: [facility] Address: [address] [place] [address] Performed By: #### 5 7021-8 #### [facility] CLIA [id number] [address] [place] [address] [place] Nucleated RBC (Bld) [#/Vol] 10*3/uL Normal <0.01 [facility] Comment on above: Order Comment: Speci men Type: BLOOD SPECIMEN Ordering Facility: [facility] Address: [address] [place] [address] Performed By: #### 5 7021-8 #### [facility] CLIA [id number] [address] [place] [address] [place] Nucleated RBC/100 WBC (Bld) [Ratio] 0.0 /100 WBC Normal [facility] Comment on above: Order Comment: Speci men Type: BLOOD SPECIMEN Ordering Facility: [facility] Address: [address] [place] [address] Performed By: #### 5 7021-8 #### [facility] CLIA [id number] [address] [place] [address] [place] Platelet mean volume (Bld) [Entitic vol] 9.0 fL Normal 9.0-12.7 [facility] Comment on above: Order Comment: Speci men Type: BLOOD SPECIMEN Ordering Facility: [facility] Address: [address] [place] [address] Performed By: #### 5 7021-8 #### [facility] CLIA [id number] [address] [place] [address] [place] Platelets (Bld) [#/Vol] 261 10*3/uL Normal 150-400 [facility] Comment on above: Order Comment: Speci men Type: BLOOD SPECIMEN Ordering Facility: [facility] Address: [address] [place] [address] Performed By: #### 5 7021-8 #### [facility] CLIA [id number] [address] [place] [address] [place] RBC (Bld) [#/Vol] 3.99 10*6/uL Normal 3.90-5.20 [facility] Comment on above: Order Comment: Speci men Type: BLOOD SPECIMEN Ordering Facility: [facility] Address: [address] [place] [address] Performed By: #### 5 7021-8 #### [facility] CLIA [id number] [address] [place] [address] [place] WBC (Bld) [#/Vol] 13.55 10*3/uL High 3.70-11.00 [facility] Comment on above: Order Comment: Speci men Type: BLOOD SPECIMEN Ordering Facility: [facility] Address: [address] [place] [address] Performed By: #### 5 7021-8 #### [facility] CLIA [id number] [address] [place] [address] [place] CRP SerPl-mCncon 02-07-2025 CRP [Mass/Vol] 1.8 mg/dL High <0.9 [facility] Comment on above: Order Comment: Speci men Type: BLOOD SPECIMEN Ordering Facility: [facility] Address: [address] [place] [address] Performed By: #### 2 4321-2, , 1986-01, 2776-09 #### [facility] CLIA [id number] [address] [place] [address] [facility] Magnesium SerPl-mCncon 02-07 Magnesium [Mass/Vol] 2.4 mg/dL High 1.7-2.3 [facility] Comment on above: Order Comment: Speci men Type: BLOOD SPECIMENOrdering Facility: [facility] Address: [address] [place] [address] Performed By: #### 2 4321-2, , 1986-01, 2776-09 ####[facility] [id number] [place] [id number] [facility] PT EDon 02-07-2025 PT ED HNO ID: [id number] Author: EVON DAILEY DTR Service: Nutrition Therapy Author Type: Fabric Worker Supervisor Type: Patient Education Filed: 02/07/2025 06:37 Note [...] 07, 2025 TIME: 6:36 AM PAGER: Normal [facility] Phosphate SerPl-mCncon 02-07 Phosphate [Mass/Vol] 3.1 mg/dL Normal 2.7-4.8 [facility] Comment on above: Order Comment: Speci men Type: BLOOD SPECIMENOrdering Facility: [facility] Address: [address] [place] [address] Performed By: #### 2 4321-2, , 1986-01, 2776-09 ####[facility] [id number] [place] [id number] [place] ANES POSTPROC EVALon 025 ANES POSTPROC EVAL HNO ID: [id number] Author: MIESHA NOLAN MD, PhD Service: ? Author Type: Physician Type: Anesthesia Postprocedure Evaluation Filed: 02/06/2025 17:18 Note Text: POST ANESTHESIA EVALUATION NOTE : 1985 Procedure Summary Date: 02/06/25 Room / Location: [address] [facility] Anesthesia Start: 103 Anesthesia Stop: 1654 Procedure: ROBOTIC LAPAROSCOPIC HERNIA REPAIR VENTRAL INITIAL [...] February 06, 2025 TIME: 5:18 PM CSN: [id number] Normal [facility] ANES PRE-OPon 02-06-2025 ANES PRE-OP HNO ID: [id number] Author: MIESHA NOLAN MD, PhD Service: ? [...] Yes Vitals Value Taken Time BP 161/89 02/06/25914 Pulse 96 02/06/25914 Resp 16 02/06/25914 Temp 36.6 ?C (97.9 ?F) 02/06/25914 SpO2 96 % 02/06/25914 Facility-Administered Medications as of 02/06/2025 Medication Dose [...] February 06, 2025 TIME: 9:40 AM CSN: [id number] [facility] HNO [facility]: [id number] Author: JASWANT ASKEW MD Service: General Surgery Author Type: Resident Type: Discharge Summary Filed: 02/12/2025 15:35 Note Text: Attestation signed by Jaswant Askew MD at 02/12/2025 3:35 PM Jaswant Askew MD GENERAL SURGERY DISCHARGE SUMMARY PATIENT NAME: Omar Gomez ADMISSION DATE: 02/06/2025 DISCHARGE DATE: 02/08/25 ATTENDING PHYSICIAN: Leigh Nowak MD Code Status: Not on file Highest Readmission Risk Score: 3 The 30 day readmissions risk score is derived from an internally validated risk model which evaluates patient level characteristics, utilization history, medication orders and lab results up until the day of discharge. Patients with a score of 39 or above are considered highest risk for readmission. Specific patient level drivers will be listed at the bottom of the summary. 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 Askew. The patient tolerated the procedure well, and surgery went as expected. See separate operative report for full OR details. The patient recovered in the PACU, and then was transferred to a [facility]. Hospital course as follows: 02/07- POD1. Delgado removed, CLD started, IV WILDLIFE PHOTOGRAPHER discontinued 02/08- Advanced to GIS, phenergan added for nausea. Patient's pain was controlled, she was voiding independently, having BM. She was discharged home in stable condition. Active Hospital Problems Diagnosis POA Incisional hernia of anterior abdominal wall without obstruction or gangrene Yes PONV (postoperative nausea and vomiting) Yes S/P hernia surgery No Post-op pain No Morbid obesity with BMI of 40.0-44.9, adult (HCC) No Obesity, Class III, BMI >= 40 Yes Major depressive disorder Yes Hypertension Yes Resolved Hospital Problems No resolved problems to display. Transitions of Care Critical Issues: LABS AND PROCEDURES PENDING AT DISCHARGE: No pending results. CONSULTING TEAMS DURING HOSPITALIZATION: None Treatment Team: Attending Provider: Leigh Nowak MD Primary Service: BUDDY LAI PATIENT CONDITION AT DISCHARGE: Stable DISCHARGE DISPOSITION: Home DAY OF DISCHARGE EXAM Well appearing, NAD AANDO X3 No visible rashes or skin deformities EOMI Hearing intact RRR Normal work of breathing on RA Abdomen soft, round, incisions c/d/I No visible MSK deformities INFORMATION PROVIDED TO PATIENT: DCI DIET: Low soft-fiber diet: No fresh fruits, whole grains, foods difficult to digest, or vegetables (unless they are well-cooked) ACTIVITY: Lifting restricted to < 10 lbs for 4-6 weeks May shower, do not scrub incision No driving while on narcotics May walk and use stairs as tolerated WOUND/SURGICAL SITE CARE: None ALLERGIES Allergen Reactions Tape [Adhesive Tape* Rash EKG tape pleitez skin- other tape gives patient rashes DISCHARGE MEDICATION: Medication List ASK your doctor about these medications acetaminophen 500 mg tablet Commonly known as: TYLENOL Take 2 tablets by mouth every 6 hours as needed for pain. acetaZOLAMIDE SR 500 mg capsule Commonly known as: DIAMOX SEQUELS Take 1 capsule by mouth every evening. AMOXICILLIN ORAL * aspirin 325 mg tablet Take 1 tablet by mouth once daily. Patient should start on October 22, 2024. * aspirin 81 mg chewable tablet Take 1 tablet by mouth once daily for 6 days. Stop 01/26/25 LORazepam 1 mg tablet Commonly known as: ATIVAN metFORMIN ER 500 mg 24 hr tablet Commonly known as: GLUCOPHAGE XR Take 1 tablet by mouth daily with lunch for 7 days, THEN 1 tablet two times a day with meals. Start taking on: September 26, 2024 venlafaxine ER 75 mg 24 hr capsule Commonly known as: EFFEXOR XR * This list has 2 medication(s) that are the same as other medications prescribed for you. Read the directions carefully, and ask your doctor or other care provider to review them with you. PLAN OF CARE: Plan of care discussed with Provider, RN, Patient and Care Management FUTURE APPOINTMENTS: Future Appointments Date Time Provider Department Center 02/25/2025 2:30 PM Joseluis Vasquez, Porcelain Buildup Assistant [facility] Main - C Bld 03/03/2025 12:00 PM Mikael Colón MD [facility] Main - I Bld 04/08/2025 11:00 AM Marzena Banks MD [facility] 05/04/2025 2:40 PM Rhianna Campo MD [facility] The patient's risk for 30-day readmission is determined using the following contributing factors: Predictive Model (more content not included)... Normal [facility] NURSING PROGon 02-06-2025 NURSING PROG HNO ID: [id number] Author: GHAZALA CASTAÑEDA RN Service: Nursing Author Type: Registered Nurse Type: Nursing Progress Note Filed: 02/06/2025 19:51 Note Text: Transfer Note: PATIENT NAME: Omar Gomez Patient Location: [place] [address]/71-21 Room: [place] [address] Patient transferred into room/unit 1-21 in stable condition. Patient is drowsy but easily arousable. at bedside and will stay overnight. Actions taken: Vital signs taken. Incentive spirometer provided. Patient is able to use it properly. Bed in lowest position. Call light in reach. Bed alarm engaged. Will continue to monitor and check with patient. Patient belongings with patient. Normal [facility] NURSING PROG HNO ID: [id number] Author: BRIAN SUN, Research Coordinator Service: ? Author Type: Research Type: Nursing Progress Note Filed: 02/06/2025 09:25 Note Text: Summary: TRIAL PATIENT Please do not discuss surgical approach (open or robotic) with patient Patient consented for study? Yes STUDY TITLE: Robotic versus Open Ventral Hernia Repair (ROVHR) Trial IRB NO.: # [id number] TECHNICAL SALES CONSULTANT: Julien Avelar MD WAITER/WAITRESS FORMAL: Brian Sun MD CONTACT: [email or web address] Re-consenting was performed by the library services coordinator, in a [id number] manner, during preoperative evaluation. Discussed above research [...] by pre-operative CT scan [] [x] tr Edwards [facility] OPERATIVE NOon 02-06-2025 OPERATIVE NO HNO ID: [id number] Author: JASWANT ASKEW MD Service: General Surgery Author Type: Physician Type: Operative Report Filed: 02/06/2025 16:32 Note Text: OPERATIVE REPORT Name: Omar Gomez : 1985 MR#: [id number] Date of Service: 02/06/2025 Start time: 1115 Stop time: 1615 Preoperative Diagnosis: Symptomatic recurrent incarcerated incisional hernia Postoperative Diagnosis: Symptomatic recurrent incarcerated incisional hernia Procedure Performed: 1. Left myofascial advancement flap 2. Right myofascial advancement flap 3. Robotic incisional hernia repair with mesh 4. Excision of prior abdominal wall mesh Surgeon: Jaswant Askew MD Elementary Math Tutor: Padilla Tuttle MD Anesthesia: General EBL: 10 [...] the operation. She was enrolled in the ROV trial. Findings: Hernia measurements: 7 cm wide [...] three of (more content not included)... Normal [facility] Emergency Department Summary on 02-02-2025 Emergency Department Summary [facility] Medical Records Department [address] [place] [address] Emergency Department Summary 02/02/25 MR#: [id number] Acct: [id number] Name: OMAR GOMEZ Rep #: [id number] : 1985 39 From: Pranav Biggs DO [...] Patient denies any hot or cold sensitivity. [facility] Medical History (Updated 02/02/25 @ 18:48 [...] (Updated 02/02/25 @ 18:[address] Pranav Biggs, DO) S/P MANAGER SITE shunt Hx of cystoscopy History of urethral [...] deficits note (more content not included)... Normal [facility] CBC W Auto Differential pane l (Bld)on 01-22-2025 Basophils (Bld) [#/Vol] 0.06 10*3/uL Normal <0.11 [facility] Comment on above: Order Comment: Speci men Type: BLOOD SPECIMEN Order[facility] Facility[facility] Address: [address] [place] [address] Performed By: #### 5 7021-8 #### [facility] CLIA [id number] [address] [place] [address] [place] Basophils/100 WBC (Bld) 0.7 % Normal [facility] Comment on above: Order Comment: Speci men Type: BLOOD SPECIMEN Ordering Facility: [facility] Address: [address] [place] [address] Performed By: #### 5 7021-8 #### [facility] CLIA [id number] [address] [place] [address] [place] Differential cell count method Nom (Bld) Auto Normal [facility] Comment on above: Order Comment: Speci men Type: BLOOD SPECIMEN Order[facility] Facility[facility] Address: [address] [place] [address] Performed By: #### 5 7021-8 #### [facility] CLIA [id number] [address] [place] [address] [place] Eosinophils (Bld) [#/Vol] 0.14 10*3/uL Normal <0.46 [facility] Comment on above: Order Comment: Speci men Type: BLOOD SPECIMEN Order[facility] Facility: [facility] Address: [address] [place] [address] Performed By: #### 5 7021-8 #### [facility] CLIA [id number] [address] [place] [address] [place] Eosinophils/100 WBC (Bld) 1.6 % Normal [facility] Comment on above: Order Comment: Speci men Type: BLOOD SPECIMEN Order[facility] Facility: [facility] Address: [address] [place] [address] Performed By: #### 5 7021-8 #### [facility] CLIA [id number] [address] [place] [address] [place] Erythrocyte distribution width (RBC) [Ratio] 16.4 % High 11.5-15.0 [facility] Comment on above: Order Comment: Speci men Type: BLOOD SPECIMEN Order[facility] Facility: [facility] Address: [address] [place] [address] Performed By: #### 5 7021-8 #### [facility] CLIA [id number] [address] [place] [address] [place] Hematocrit (Bld) [Volume fraction] 32.5 % Low 36.0-46.0 [facility] Comment on above: Order Comment: Speci men Type: BLOOD SPECIMEN Order[facility] Facility: [facility] Address: [address] [place] [address] Performed By: #### 5 7021-8 #### [facility] CLIA [id number] [address] [place] [address] [place] Hemoglobin (Bld) [Mass/Vol] 9.9 g/dL Low 11.5-15.5 [facility] Comment on above: Order Comment: Speci men Type: BLOOD SPECIMEN Order[facility] Facility: [facility] Address: [address] [place] [address] Performed By: #### 5 7021-8 #### [facility] CLIA [id number] [address] [place] [address] [place] Immature granulocytes (Bld) [#/Vol] 0.03 10*3/uL Normal <0.10 [facility] Comment on above: Order Comment: Speci men Type: BLOOD SPECIMEN Order[facility] Facility: [facility] Address: [address] [place] [address] Performed By: #### 5 7021-8 #### [facility] CLIA [id number] [address] [place] [address] [place] Immature granulocytes/100 WBC (Bld) 0.3 % Normal [facility] Comment on above: Order Comment: Speci men Type: BLOOD SPECIMEN Order[facility] Facility: [facility] Address: [address] [place] [address] Performed By: #### 5 7021-8 #### [facility] CLIA [id number] [address] [place] [address] [place] Lymphocytes (Bld) [#/Vol] 2.40 10*3/uL Normal 1.00-4.00 [facility] Comment on above: Order Comment: Speci men Type: BLOOD SPECIMEN Order[facility] Facility: [facility] Address: [address] [place] [address] Performed By: #### 5 7021-8 #### [facility] CLIA [id number] [address] [place] [address] [place] Lymphocytes/100 WBC (Bld) 27.6 % Normal [facility] Comment on above: Order Comment: Speci men Type: BLOOD SPECIMEN Order[facility] Facility: [facility] Address: [address] [place] [address] Performed By: #### 5 7021-8 #### [facility] CLIA [id number] [address] [place] [address] [place] MCH (RBC) [Entitic mass] 21.5 pg Low 26.0-34.0 [facility] Comment on above: Order Comment: Speci men Type: BLOOD SPECIMEN Order[facility] Facility[facility] Address: [address] [place] [address] Performed By: #### 5 7021-8 #### [facility] CLIA [id number] [address] [place] [address] [place] MCHC (RBC) [Mass/Vol] 30.5 g/dL Normal 30.5-36.0 [facility] Comment on above: Order Comment: Speci men Type: BLOOD SPECIMEN Order[facility] Facility[facility] Address: [address] [place] [address] Performed By: #### 5 7021-8 #### [facility] CLIA [id number] [address] [place] [address] [place] MCV (RBC) [Entitic vol] 70.5 fL Low 80.0-100.0 [facility] Comment on above: Order Comment: Speci men Type: BLOOD SPECIMEN Order[facility] Facility[facility] Address: [address] [place] [address] Performed By: #### 5 7021-8 #### [facility] CLIA [id number] [address] [place] [address] [place] Monocytes (Bld) [#/Vol] 0.68 10*3/uL Normal <0.87 [facility] Comment on above: Order Comment: Speci men Type: BLOOD SPECIMEN Order[facility] Facility[facility] Address: [address] [place] [address] Performed By: #### 5 7021-8 #### [facility] CLIA [id number] [address] [place] [address] [place] Monocytes/100 WBC (Bld) 7.8 % Normal [facility] Comment on above: Order Comment: Speci men Type: BLOOD SPECIMEN Order[facility] Facility[facility] Address: [address] [place] [address] Performed By: #### 5 7021-8 #### [facility] CLIA [id number] [address] [place] [address] [place] Neutrophils (Bld) [#/Vol] 5.40 10*3/uL Normal 1.45-7.50 [facility] Comment on above: Order Comment: Speci men Type: BLOOD SPECIMEN Order[facility] Facility[facility] Address: [address] [place] [address] Performed By: #### 5 7021-8 #### [facility] CLIA [id number] [address] [place] [address] [place] Neutrophils/100 WBC (Bld) 62.0 % Normal [facility] Comment on above: Order Comment: Speci men Type: BLOOD SPECIMEN Order[facility] Facility[facility] Address: [address] [place] [address] Performed By: #### 5 7021-8 #### [facility] CLIA [id number] [address] [place] [address] [place] Nucleated RBC (Bld) [#/Vol] 10*3/uL Normal <0.01 [facility] Comment on above: Order Comment: Speci men Type: BLOOD SPECIMEN Order[facility] Facility[facility] Address: [address] [place] [address] Performed By: #### 5 7021-8 #### [facility] CLIA [id number] [address] [place] [address] [place] Nucleated RBC/100 WBC (Bld) [Ratio] 0.0 /100 WBC Normal [facility] Comment on above: Order Comment: Speci men Type: BLOOD SPECIMEN Order[facility] Facility[facility] Address: [address] [place] [address] Performed By: #### 5 7021-8 #### [facility] CLIA [id number] [address] [place] [address] [place] Platelet mean volume (Bld) [Entitic vol] 9.1 fL Normal 9.0-12.7 [facility] Comment on above: Order Comment: Speci men Type: BLOOD SPECIMEN Order[facility] Facility[facility] Address: [address] [place] [address] Performed By: #### 5 7021-8 #### [facility] CLIA [id number] [address] [id number] [address] [place] Platelets (Bld) [#/Vol] 353 10*3/uL Normal 150-400 [facility] Comment on above: Order Comment: Speci men Type: BLOOD SPECIMEN Order[facility] Facility[facility] Address: [address] [place] [address] Performed By: #### 5 7021-8 #### [facility] CLIA [id number] [address] [place] [address] [place] RBC (Bld) [#/Vol] 4.61 10*6/uL Normal 3.90-5.20 [facility] Comment on above: Order Comment: Speci men Type: BLOOD SPECIMEN Order[facility] Facility[facility] Address: [address] [place] [address] Performed By: #### 5 7021-8 #### [facility] CLIA [id number] [address] [place] [address] [place] WBC (Bld) [#/Vol] 8.71 10*3/uL Normal 3.70-11.00 [facility] Comment on above: Order Comment: Speci men Type: BLOOD SPECIMEN Order[facility] Facility[facility] Address: [address] [place] [address] Performed By: #### 5 7021-8 #### [facility] CLIA [id number] [address] [place] [address] [place] CNOVon 01-22-2025 CNOV Office Visit (GENBETIN ) OMAR GOMEZ ([id number]) 1985 F Date Time Provider Department 01/22/25 4:00 PM DE GILL During your visit today, we recorded the following information about you: De Gill, PhD 01/22/2025 4:41 PM Signed [facility] [place] Name: Omar Gomez MR#: [id number] Date: 01/22/2025 Time: ? hour Referred by: [...] De Marshall, Ph.D. Referring Provider: OMAR FERREIRA [[id number]] Allergies As of Date: 01/22/2025 Noted Allergy Reaction TAPE (ADHESIVE TAPE (ROSINS)) 07/18/2013 2 - Rash Comments: EKG tape pleitez skin- other tape gives patient rashes Date Reviewed: 01/22/2025 Reviewed by: Astrid Vuong APRN.[employer]AIN MANAGER - Fully Assessed Primary Visit Diagnosis:Abdominal pain, [...] Status:Closed by DE GILL on 01/22/25 Normal [facility] Comprehensive metabolic 2000 panelon 01-22-2025 Albumin [Mass/Vol] 3.8 g/dL Low 3.9-4.9 [facility] Comment on above: Order Comment: Speci men Type: BLOOD SPECIMEN Ordering Facility: [facility] Address: [address] [id number] Performed By: #### 5 7021-8 #### [facility] CLIA [id number] [address] [place], [place] [id number] [place] ALP [Catalytic activity/Vol] 103 U/L Normal 34-123 [facility] Comment on above: Order Comment: Speci men Type: BLOOD SPECIMEN Ordering Facility: [facility] Address: [address] [place] [address] Performed By: #### 5 7021-8 #### [facility] CLIA [id number] [address] [place] [address] [place] ALT [Catalytic activity/Vol] 14 U/L Normal 7-38 [facility] Comment on above: Order Comment: Speci men Type: BLOOD SPECIMEN Ordering Facility: [facility] Address: [address] [place] [address] Performed By: #### 5 7021-8 #### [facility] CLIA [id number] [address] [place], [place] [address] [place] Anion gap [Moles/Vol] 11 mmol/L Normal 8-15 [facility] Comment on above: Order Comment: Speci men Type: BLOOD SPECIMEN Ordering Facility: [facility] Address: [address] [place] [address] Performed By: #### 5 7021-8 #### [facility] CLIA [id number] [address] [place], [place] [address] [place] AST [Catalytic activity/Vol] 13 U/L Normal 13-35 [facility] Comment on above: Order Comment: Speci men Type: BLOOD SPECIMEN Ordering Facility: [facility] Address: [address] [place], [place] [id number] Performed By: #### 5 7021-8 #### [facility] CLIA [id number] [address] [place], [place] [address] [place] Bilirubin [Mass/Vol] mg/dL Low 0.2-1.3 [facility] Comment on above: Order Comment: Speci men Type: BLOOD SPECIMEN Ordering Facility: [facility] Address: [address] [place] [address] Performed By: #### 5 7021-8 #### [facility] CLIA [id number] [address] [place] [address] [place] Calcium [Mass/Vol] 9.2 mg/dL Normal 8.5-10.2 [facility] Comment on above: Order Comment: Speci men Type: BLOOD SPECIMEN Ordering Facility: [facility] Address: [address] [place] [address] Performed By: #### 5 7021-8 #### [facility] CLIA [id number] [address] [place] [address] [place] Chloride [Moles/Vol] 109 mmol/L High 98-107 [facility] Comment on above: Order Comment: Speci men Type: BLOOD SPECIMEN Ordering Facility: [facility] Address: [address] [place] [address] Performed By: #### 5 7021-8 #### [facility] CLIA [id number] [address] [place] [address] [place] CO2 [Moles/Vol] 21 mmol/L Low 22-30 [facility] Comment on above: Order Comment: Speci men Type: BLOOD SPECIMEN Ordering Facility: [facility] Address: [address] [place] [address] Performed By: #### 5 7021-8 #### [facility] CLIA [id number] [address] [place] [address] [place] Creatinine [Mass/Vol] 0.68 mg/dL Normal 0.58-0.96 [facility] Comment on above: Order Comment: Speci men Type: BLOOD SPECIMEN Ordering Facility: [facility] Address: [address] [address] Performed By: #### 5 7021-8 #### [facility] CLIA [id number] [address] [place] [address] [place] Creatinine and Glomerular filtration rate.predicted panel (S/P/Bld) 115 mL/min/1.73m??? Normal >=60 [facility] Comment on above: Order Comment: Evaristo griffin Type: BLOOD SPECIMEN Ordering Facility: [facility] Address: [address] [place] [address] Result Comment: Bhavya mated Glomerular Filtration Rate [...] GFR. Performed By: #### 5 7021-8 #### [facility] CLIA [id number] [address] [place] [address] [place] Glucose [Mass/Vol] 95 mg/dL Normal 74-99 [facility] Comment on above: Order Comment: Evaristo griffin Type: BLOOD SPECIMEN Ordering Facility: [facility] Address: [address] [place] [address] Result Comment: The [place] Diabetes Association (ADA) provides guidance for cutoff [...] Standards of Medical Care in Diabetes 2016, [place] [employer] Association. Diabetes Care. 2016.39(Suppl 1). Performed By: #### 5 7021-8 #### [facility] CLIA [id number] [address] [place] [address] [place] Potassium [Moles/Vol] 4.5 mmol/L Normal 3.7-5.1 [facility] Comment on above: Order Comment: Speci men Type: BLOOD SPECIMEN Ordering Facility: [facility] Address: [address] [place] [address] Performed By: #### 5 7021-8 #### [facility] CLIA [id number] [address] [place] [address] [place] Protein [Mass/Vol] 7.1 g/dL Normal 6.3-8.0 [facility] Comment on above: Order Comment: Speci men Type: BLOOD SPECIMEN Ordering Facility: [facility] Address: [address] [place] [address] Performed By: #### 5 7021-8 #### [facility] CLIA [id number] [address] [place] [address] [place] Sodium [Moles/Vol] 141 mmol/L Normal 136-144 [facility] Comment on above: Order Comment: Speci men Type: BLOOD SPECIMEN Ordering Facility: [facility] Address: [address] [place] [address] Performed By: #### 5 7021-8 #### [facility] CLIA [id number] [address] [place] [address] [place] Urea nitrogen [Mass/Vol] 13 mg/dL Normal 7-21 [facility] Comment on above: Order Comment: Speci men Type: BLOOD SPECIMEN Ordering Facility: [facility] Address: [address] [place] [address] Performed By: #### 5 7021-8 #### [facility] CLIA [id number] [address] [place] [address] [place] HISTORY PHYSICALon 5 HISTORY PHYSICAL HNO ID: [id number] Author: ASTRID VUONG APRN.[employer]A FOUNTAIN MANAGER Service: ? Author Type: Nurse Practitioner Type: [...] Follows with Cerebrovascular LV 01/2025 Sugey Allan TITLE I ASSISTANT ASA 81 sp TSJ stent, will complete [...] fevers, c (more content not included)... Normal [facility] PT panel Coag (PPP)on 2024 INR Coag (PPP) [Relative time] 1.0 {INR} Normal 0.9-1.3 [facility] Comment on above: Order Comment: Evaristo griffin Type: BLOOD SPECIMEN Ordering Facility: [facility] Address: [address] [place] [address] Result Comment: Rosenda min K Antagonist (VKA) Therapeutic Range: INR 2 to 3 (Target INR of 2.5) Note: For patients treated with VKA drugs, such as warfarin, the [place] [employer] 2012 Guideline recommends [...] Chest 2012, 141:7S-47S Veronique HENRY et al. [facility] 2017, 70: 252-289 Performed By: #### 5 7021-8 #### [facility] CLIA [id number] [address] [place] [address] [place] PT Coag (PPP) [Time] 10.8 s Normal 9.7-13.0 [facility] Comment on above: Order Comment: Evaristo griffin Type: BLOOD SPECIMEN Ordering Facility[facility] Address: [address] [place] [address] Performed By: #### 5 7021-8 #### [facility] CLIA [id number] [address] [place] [address] [place] TYPE AND SCREEN,30 DAYon ABO O Normal [facility] Comment on above: Order Comment: Speci men Type: BLOOD SPECIMENOrdering Facility: [facility] Address: [address] [place] [address] Performed By: #### T SCR30 ####[facility] BLOOD BANKCLIA [id number] [place] [address] [place] Rh Nom (Bld) Positive Normal [facility] Comment on above: Order Comment: Speci men Type: BLOOD SPECIMENOrdering Facility: [facility] Address: [address] [place] [address] Performed By: #### T SCR30 ####[facility] BLOOD BANKIA [id number] [place] [address] [place] aPTT PPPon 01-22-2025 aPTT Coag (PPP) [Time] 24.5 s Normal 23.0-32.4 [facility] Comment on above: Order Comment: Speci men Type: BLOOD SPECIMEN Ordering Facility: [facility] Address: [address] [place] [address] Performed By: #### 5 7021-8 #### [facility] CLIA [id number] [address] [place], [place] [address] [place] [address] [place] MRA Head veins WO and W cont rast Tiffany 01-08-2025 IMPRESSION: 1. Persistent nonspecific left transverse/sigmoid junction narrowing. 2. Unclear significance with differential provided above. 3. Patent and stable remaining intracranial deep venous system. 4. Stable partially empty sella. Print Binding Worker: PSCB Transcribe Date/Time: Jan 08 2025 1:21P Dictated by : DESTINY ROQUE MD This examination was interpreted and the report reviewed and electronically signed by: DESTINY ROQUE MD on Jan 08 2025 1:25PM [facility] DIVISION OF RADIOLOGY * * *Final [...] MR venogram examination. DIVISION OF RADIOLOGY Provider, [facility] - 01/08/2025 * * *Final Report* * * DATE OF EXAM: Jan 08 2025 1:14PM [facility] 0336 - MRV BRAIN WO/W IVCON / [...] venous system. 4. Stable partially empty sella. Print Binding Worker: LAITH Transcribe Date/Time: Jan 08 2025 1:21P Dictated by : DESTINY ROQUE MD This examination was interpreted and the report reviewed and electronically signed by: DESTINY ROQUE MD on Jan 08 2025 1:25PM EST [facility] Radiology Study observation (narrative) [facility] MRA Head veins WO and W cont rast IVOrdered By: Ccf Provider on 01-08-2025 [facility] MRV BRAIN WO/W IVCONon 01-08 MRV BRAIN [...] venous system. 4. Stable partially empty sella. 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 Normal [facility] HISTORY PHYSICALon HISTORY PHYSICAL HNO ID: [id number] Author: ?, ?, ? Service: ? 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 Normal [facility] OMAR GOMEZ ([id number]) 1985 F Date Time Provider Department 10/14/24 SUGEY ALLAN [facility] During your visit today, we recorded the following information about you: Sophia Camarena, RN 10/14/2024 9:30 AM Signed Spoke with patient and recommended being evaluated in ED for urgent imaging. Patient will go to [facility]. Will look for imaging and ED [...] contrast (will be provided with radiology test) [facility] Brain Inject, intravenously, once for 1 dose. [...] Encounter Status:Closed by SOPHIA CAMARENA on 10/14/24 [facility] 10-06-20[facility]MAR [facility]OME[facility] ([id number]) 1985 F Date Time Provider Department 10/06/24 [facility] During your visit today, we recorded the following information about you: Mary Choudhury RN 10/06/2024 1:10 PM Signed Received message from Dr Colón that patient is not taking aspirin and plavix states that she is out of medication. Followed up with patient that she had medication sent to [facility] per request 2 weeks ago, patient states she lives near [facility] pharmacy. New orders placed for HAYDEE to sign now. Reviewed instructions to stop plavix when prescription is complete, continue aspirin until December Allergies As of Date: 10/06/2024 Noted Allergy Reaction TAPE (ADHESIVE TAPE (ROSINS)) 07/18/2013 2 - Rash Comments: EKG tape pleitez skin- other tape gives patient rashes Date Reviewed: 10/06/2024 Reviewed by: Mikael Colón MD - Fully Assessed Reason for Visit: Cisco Network Engineer - Other [3602] Cmt: Medications Prescriptions as of 10/06/2024 - [...] Status:Closed by MARY CHOUDHURY on 10/06/24 Normal [facility] OCT OPTIC NERVE CIRRUS OU (B OTH EYES)on 10-06-2024 [facility] Radiology Study observation (narrative) [facility] OPTIC DISC PHOTO OU (BOTH EY ES)on 10-06-2024 [facility] Radiology Study observation (narrative) [facility] VISUAL FIELD 24-2 OU (BOTH E YES)on 10-06-2024 [facility] Radiology Study observation (narrative) [facility] CNPNon 09-26-2024 [facility] OMAR GOME[facility] ([id number]) 1985 F Date Time Provider Department 09/26/24 CHULA MORTON [facility] During your visit today, we recorded [...] Gomez, 1985). Yes Number to return call [phone] Reason for Call: Olga is calling from [facility] regarding refills for Plavix 75mg and Aspirin 325 mg. Please call to verify prescriptions for refills. P.S Patient missed her Post Op with [facility]. Caller was requested a refill from Meena. Sent to provider [place] to forward for review. Thank you calling [facility]. You will receive a return call within 48 hours ( or 2 business days if close to the weekend). If you feel that this is an urgent issue and needs immediate attention, it is recommended that you contact your primary care provider office or proceed to your nearest Urgent Care Center of Emergency Room ED for evaluation/treatment. Mary Choudhury RN 09/26/2024 4:52 PM Signed Refill request pended [...] Encounter Status:Closed by MARY CHOUDHURY on 09/26/[address] [facility] Telephone (PATRICIAKW) OMAR GOMEZ ([id number]) 1985 F Date Time Provider Department 09/26/24 RHIANNA CAMPO During your visit today, we recorded the following information about you: Miranda Garibay 09/26/2024 2:00 PM Signed 1st attempt Mc sent Bioinformaticist [place] [address] Campo in [...] Status:Closed by DIVYA GUNDERSON on 10/02/24 Normal [facility] US PELVIS NON-OB W/TRANSVAGI NALon 09-22-2024 [...] 4:32:39 PM Ordering Provider: SEEMA BULLOCK Normal [facility] .Urinalysis Microscopic (AO) on 09-19-2024 UA Bacteria 2+ /hpf Abnormal [facility] Comment on above: Performed By: #### U A PREGU, UAMICAO #### [address] [address] UA RBC 0-5 Abnormal None Seen [facility] Comment on above: Performed By: #### U A, PREGU, UAMICAO #### [address] [address] UA Squam Epithelial 10-15 Abnormal None Seen [facility] Comment on above: Performed By: #### U A, PREGU, UAMICAO #### [address] [address] UA WBC 5-10 Abnormal None Seen [facility] Comment on above: Performed By: #### U A, PREGU, UAMICAO #### [address] [address] [address] ABDOMEN/PELVIS W/O CONTRA STon 09-19-2024 CT [...] Date: 09/19/2024 8:29:33 PM Ordering Provider: ROC Edwards [facility] LABORATORYOrdered By: Elisabeth Wagner on 09-19-2024 [...] HCG ( test) Ql (U) Negative Normal [facility] Comment on above: Performed By: #### U A, PREGU, UAMICAO #### [address] [address] test (u) int Not detected Invalid Interpretation Code [facility] Comment on above: Performed By: #### U A, PREGU, UAMICAO #### [address] [address] UAon 09-19-2024 Color (U) Yellow Normal [facility] Comment on above: Performed By: #### U A, PREGU, UAMICAO #### [address] [address] Glucose (U) [Mass/Vol] Negative Normal Negative [facility] Comment on above: Performed By: #### U A, PREGU, UAMICAO #### [address] [place] [address] Ketones Ql (U) Negative Normal Negative [facility] Comment on above: Performed By: #### U A, PREGU, UAMICAO #### [address] [place] [address] UA Appear Cloudy Abnormal Clear [facility] Comment on above: Performed By: #### U A, PREGU, UAMICAO #### [address] [place] [address] UA Blood Negative Normal Negative [facility] Comment on above: Performed By: #### U A, PREGU, UAMICAO #### [address] [place] [address] UA Leuk Est Negative Normal Negative [facility] Comment on above: Performed By: #### U A, PREGU, UAMICAO #### [address] [place] [address] UA Nitrite Negative Normal Negative [facility] Comment on above: Performed By: #### U A, PREGU, UAMICAO #### [address] [place] [address] UA pH 5.5 Normal 5.0 - 8.0 [facility] Comment on above: Performed By: #### U A, PREGU, UAMICAO #### [place] [address] UA Protein Negative Normal Negative [facility] Comment on above: Performed By: #### U A, PREGU, UAMICAO #### [address] [place] [address] UA Spec Grav 1.010 Abnormal 1.015-1.025 [facility] Comment on above: Performed By: #### U A, PREGU, UAMICAO #### [address] [address] UA Specimen Type Clean Catch Normal [facility] Comment on above: Performed By: #### U BAKARI Landry UAMICAO #### [address] [address] UA Urobilinogen 0.2 E.U./dL Normal 0.2-1.0 [facility] Comment on above: Performed By: #### BAKARI Josue UAMICAO #### [address] [address] Urobilinogen (U) [Mass/Vol] Negative Normal Negative [facility] Comment on above: Performed By: #### BAKARI Josue UAMICAO #### [address] [address] .Auto Diffon 08-25-2024 Basophil, Absolute 0.1 10 3/mcL Normal 0.0-0.2 [facility] Comment on above: Performed By: #### A JORGE HERNANDEZ, BMP, GFR, CBC, ADIFF ####[address] [address] Basophils/100 WBC (Bld) 0.8 % Normal 0.0-2.5 [facility] Comment on above: Performed By: #### A JORGE HERNANDEZ, BMP, GFR, CBC, ADIFF ####[address] [address] Eosinophil, Absolute 0.3 10 3/mcL Normal 0.0-0.7 [facility] Comment on above: Performed By: #### A JORGE HERNANDEZ, HORTENSIA, GFR, CBC, ADIFF ####[address] [address] Eosinophils/100 WBC (Bld) 2.5 % Normal 0.0-7.0 [facility] Comment on above: Performed By: #### A JORGE HERNANDEZ, BMP, GFR, CBC, ADIFF ####[address] [address] Lymphocyte, Absolute 2.5 10 3/mcL Normal 0.9-4.3 [facility] Comment on above: Performed By: #### A JORGE HERNANDEZ, HORTENSIA, GFR, CBC, ADIFF ####[address] [place], [place] [address] Lymphocytes/100 WBC (Bld) 25.0 % Normal 20.0-40.0 [facility] Comment on above: Performed By: #### A JORGE HERNANDEZ, HORTENSIA, GFR, CBC, ADIFF ####[facility] [place], [place] [address] Monocyte, Absolute 0.8 10 3/mcL Normal 0.1-1.4 [facility] Comment on above: Performed By: #### A JORGE HERNANDEZ, HORTENSIA, GFR, CBC, ADIFF ####[address] [place] [address] [place], [place] [address] Monocytes/100 WBC (Bld) 7.8 % Normal 2.0-13.0 [facility] Comment on above: Performed By: #### A JORGE HERNANDEZ, HORTENSIA, GFR, CBC, ADIFF ####[address] [place], [place] [address] Neutrophils/100 WBC (Bld) 63.9 % Normal 50.0-75.0 [facility] Comment on above: Performed By: #### A JORGE HERNANDEZ, HORTENSIA, GFR, CBC, ADIFF ####[address] [place], [place] [address] .GFRon 08-25-2024 GFR 89 ml/min/1.73sqm Normal [facility] Comment on above: Result Comment: GFR [...] JORGE HERNANDEZ, BMP, GFR, CBC, ADIFF ####[address] [place], [place] [address] GFR Non- 74 ml/min/1.73sqm Normal [facility] Comment on above: Result Comment: GFR [...] A JORGE HERNANDEZ, HORTENSIA, GFR, CBC, ADIFF ####[place] [address] [place], [place] [address] .MDWon 08-25-2024 Monocyte Distribution Width 18.61 Normal 0.00-20.00 [facility] Comment on above: Result Comment: For ED adult patients suspected of sepsis, MDW<=20.0 does not rule out sepsis or risk of sepsis Performed By: #### A JORGE HERNANDEZ, HORTENSIA, GFR, CBC, ADIFF ####[address] [place], [place] [address] .NEUABSon 08-25-2024 Neutrophil, Absolute 6.4 10 3/mcL Normal 2.3-8.1 [facility] Comment on above: Performed By: #### A JORGE HERNANDEZ, BMP, GFR, CBC, ADIFF ####[address] [place], [place] [address] .Urinalysis Microscopic (AO) on 08-25-2024 UA Bacteria 4+ /hpf Abnormal [facility] Comment on above: Performed By: #### U Gris PREGU, UAMICAO #### [address] [place], [place] [address] UA RBC 5-10 Abnormal None Seen [facility] Comment on above: Performed By: #### U Gris PREGU, UAMICAO #### [address] [place], [place] [address] UA Squam Epithelial 15-25 Abnormal None Seen [facility] Comment on above: Performed By: #### U Gris PREGU, UAMICAO #### [address] [place], [place] [address] UA WBC LOADED Abnormal None Seen [facility] Comment on above: Performed By: #### BAKARI Josue, UAMICAO #### [address] [place], [place] [address] BMPon 08-25-2024 BUN/Creatinine Ratio 21 ratio Normal 7-27 [facility] Comment on above: Performed By: #### A JORGE HERNANDEZ, HORTENSIA, GFR, CBC, ADIFF ####[address] [address] Calcium [Mass/Vol] 8.4 mg/dL Normal 8.4-10.2 [facility] Comment on above: Performed By: #### A JORGE HERNANDEZ, HORTENSIA, GFR, CBC, ADIFF ####[facility] [place], [place] [address] Chloride [Moles/Vol] 108 mmol/L High 98-107 [facility] Comment on above: Performed By: #### A JORGE HERNANDEZ, HORTENSIA, GFR, CBC, ADIFF ####[address] [address] CO2 [Moles/Vol] 23 mmol/L Normal 22-29 [facility] Comment on above: Performed By: #### A JORGE HERNANDEZ, HORTENSIA, GFR, CBC, ADIFF ####[address] [place], [place] [address] Creatinine [Mass/Vol] 0.87 mg/dL Normal 0.55-1.02 [facility] Comment on above: Result Comment: Test ing performed on Siemens Dimension EXL analyzer using a modified kinetic Gino technique. Performed By: #### A JORGE HERNANDEZ, HORTENSIA, GFR, CBC, ADIFF ####[address] [address] [place], [place] [address] Electrolyte Balance 13.0 mEq/L Normal 4.0-15.0 [facility] Comment on above: Performed By: #### A JORGE HERNANDEZ, HORTENSIA, GFR, CBC, ADIFF ####[address] [place], [place] [address] Glucose [Mass/Vol] 119 mg/dL High 70-105 [facility] Comment on above: Performed By: #### A JORGE HERNANDEZ, HORTENSIA, GFR, CBC, ADIFF ####[address] [place], [place] [address] Potassium [Moles/Vol] 3.9 mmol/L Normal 3.5-5.1 [facility] Comment on above: Performed By: #### A JORGE HERNANDEZ, HORTENSIA, GFR, CBC, ADIFF ####[address] [place], [place] [address] Sodium [Moles/Vol] 144 mmol/L Normal 136-145 [facility] Comment on above: Performed By: #### A JORGE HERNANDEZ, HORTENSIA, GFR, CBC, ADIFF ####[address] [place], [place] [address] Urea nitrogen [Mass/Vol] 18 mg/dL Normal 7-18 [facility] Comment on above: Performed By: #### A JORGE HERNANDEZ, HORTENSIA, GFR, CBC, ADIFF ####[address] [place], [place] [address] CBCon 08-25-2024 Erythrocyte distribution width (RBC) [Ratio] 16.2 % High 11.5-15.5 [facility] Comment on above: Performed By: #### A JORGE HERNANDEZ, HORTENSIA, GFR, CBC, ADIFF ####[address] [place], [place] [address] Hematocrit (Bld) [Volume fraction] 34.0 % Normal 34.0-46.0 [facility] Comment on above: Performed By: #### A JORGE HERNANDEZ, HORTENSIA, GFR, CBC, ADIFF ####[address] [place], [place] [address] Hgb 11.3 G/dL Low 12.0-16.0 [facility] Comment on above: Performed By: #### A JORGE HERNANDEZ, HORTENSIA, GFR, CBC, ADIFF ####[address] [place], [place] [address] MCH (RBC) [Entitic mass] 24.8 pg Low 27.0-33.0 [facility] Comment on above: Performed By: #### A JORGE HERNANDEZ, HORTENSIA, GFR, CBC, ADIFF ####[address] [place], [place] [address] MCHC 33.1 G/dL Normal 32.0-36.0 [facility] Comment on above: Performed By: #### A JORGE HERNANDEZ, HORTENSIA, GFR, CBC, ADIFF ####[address] [place], [place] [address] MCV (RBC) [Entitic vol] 74.9 fL Low 80.0-99.0 [facility] Comment on above: Performed By: #### A JORGE HERNANDEZ, HORTENSIA, GFR, CBC, ADIFF ####[address] [place], [place] [address] Platelet 277 10 3/mcL Normal 150-450 [facility] Comment on above: Performed By: #### A JORGE HERNANDEZ, HORTENSIA, GFR, CBC, ADIFF ####[address] [place], [place] [address] Platelet mean volume (Bld) [Entitic vol] 6.7 fL Normal 6.6-10.5 [facility] Comment on above: Performed By: #### A JORGE HERNANDEZ, HORTENSIA, GFR, CBC, ADIFF ####[facility] [place], [place] [address] RBC 4.54 10 6/mcL Normal 4.10-5.30 [facility] Comment on above: Performed By: #### A JORGE HERNANDEZ, BMP, GFR, CBC, ADIFF ####[facility] [place], [place] [address] WBC 10.0 10 3/mcL Normal 4.5-10.8 [facility] Comment on above: Performed By: #### A JORGE HERNANDEZ, BMP, GFR, CBC, ADIFF ####[facility] [place], [place] [address] CT ABDOMEN/PELVIS W/O CONTRA STon 08-25-2024 CT [...] 08/25/2024 12:51:24 AM Ordering Provider: BROOK OLIVER Normal [facility] PREGUon 08-25-2024 HCG ( test) Ql (U) Negative Normal [facility] Comment on above: Performed By: #### U A, PREGU, UAMICAO #### [place] [address] test (u) int Not detected Invalid Interpretation Code [facility] Comment on above: Performed By: #### U A, PREGU, UAMICAO #### [place] [address] UAon 08-25-2024 Color (U) Yellow Normal [facility] Comment on above: Performed By: #### U A, PREGU, UAMICAO #### [place] [address] Glucose (U) [Mass/Vol] Negative Normal Negative [facility] Comment on above: Performed By: #### U A, PREGU, UAMICAO #### [place] [address] Ketones Ql (U) Negative Normal Negative [facility] Comment on above: Performed By: #### U A, PREGU, UAMICAO #### [place] [address] UA Appear Slightly Cloudy Abnormal Clear [facility] Comment on above: Performed By: #### U A, PREGU, UAMICAO #### [address] [address] UA Blood Small Abnormal Negative [facility] Comment on above: Performed By: #### U A, PREGU, UAMICAO #### [address] [address] UA Leuk Est Trace Abnormal Negative [facility] Comment on above: Performed By: #### U A, PREGU, UAMICAO #### [place] [id number] UA Nitrite Positive Abnormal Negative [facility] Comment on above: Performed By: #### U A, PREGU, UAMICAO #### [place] [address] UA pH 6.0 Normal 5.0 - 8.0 [facility] Comment on above: Performed By: #### U A, PREGU, UAMICAO #### [place] [address] UA Protein 30 mg/dL Normal Negative [facility] Comment on above: Performed By: #### U A, PREGU, UAMICAO #### [place] [address] UA Spec Grav >=1.030 Abnormal 1.015-1.025 [facility] Comment on above: Performed By: #### U A, PREGU, UAMICAO #### [place] [address] UA Specimen Type Clean Catch Normal [facility] Comment on above: Performed By: #### U A, PREGU, UAMICAO #### [place] [address] UA Urobilinogen 0.2 E.U./dL Normal 0.2-1.0 [facility] Comment on above: Performed By: #### U A, PREGU, UAMICAO #### [place] [address] Urobilinogen (U) [Mass/Vol] Negative Normal Negative [facility] Comment on above: Performed By: #### U A, PREGU, UAMICAO #### [place] [address] LABORATORYOrdered By: Daniela Mcleod on 08-24-2024 Appearance [...] 12 Lead EKGon 08-14-2024 12 Lead EKG [facility] Cardiovascular Services [address] [place] [address] 12 Lead EKG 08/14/24 1659 MR#: [id number] Acct: [id number] Name: OMAR GOMEZ Rep #: [id number] : 1985 38 From: Maco Amin MD [...] rhythm Normal ECG Confirmed by Maco Amin ([id number]), editorial assistant AMARI BOONE ([id number]) on 08/15/2024 1:47:57 PM Referred By: Confirmed By: Maco Amin 08/15/24 1347 Date Maco Amin MD CC: Dr. Norris Saeed DO; AURELIA Hoang; No Primary Care Physician Signed Normal [facility] Abdomen/Pelvis W IV Cont ONL Yon 08-14-2024 Abdomen/Pelvis W IV Cont ONLY [facility] Imaging Services [address] [place], [place] [id number] Abdomen/Pelvis W IV Cont ONLY MR#: [id number] Acct: [id number] Name: OMAR GOMEZ Rep #: [id number] : 1985 F 38 From: De Hill MD PCP: Care Physician,No Primary Status: REG ER Study: Abdomen/Pelvis W IV Cont ONLY Date of Exam: Exam# [id number] Ordering Dr: Mariama Amador [id number] EXAM: CT ABDOMEN AND PELVIS WITH INTRAVENOUS [...] Signed: De Hill MD at 20:40 EST Reading Location ID and State: [facility] / [place] Tel , Service support , CC: AURELIA Hoang; No Primary Care Physician Print Binding Worker: Signed Normal [facility] Basic Metabolic Profile (BMP )on 08-14-2024 BUN/CRE 24.4 RATIO High 10-20 [facility] Comment on above: Order Comment: 'TROP ' Serial specimen #1, #2 or #3: 1 Performed By: #### L 500.2500, L100.0100, L501.4020 #### [facility] [address] [place], [address] CA,Total 8.8 mg/dL Normal 8.5-10.1 [facility] Comment on above: Order Comment: 'TROP ' Serial specimen #1, #2 or #3: 1 Performed By: #### L 500.2500, L100.0100, L501.4020 #### [facility] [address] [place], [address] Chloride [Moles/Vol] 107 mmol/L Normal 98-107 [facility] Comment on above: Order Comment: 'TROP ' Serial specimen #1, #2 or #3: 1 Performed By: #### L 500.2500, L100.0100, L501.4020 #### [facility] [address] [place], [address] CO2 [Moles/Vol] 27.0 mmol/L Normal 21.0-32.0 [facility] Comment on above: Order Comment: 'TROP ' Serial specimen #1, #2 or #3: 1 Performed By: #### L 500.2500, L100.0100, L501.4020 #### [facility] [address] [place], [address] Creatinine [Mass/Vol] 0.86 mg/dL Normal 0.55-1.02 [facility] Comment on above: Order Comment: 'TROP ' Serial specimen #1, #2 or #3: 1 Result Comment: The validity of the calculated GFR GFRAA in patients over 70 years has not been determined. Clinical correlation is essential. Performed By: #### L 500.2500, L100.0100, L501.4020 #### [facility] [address] [place], [address] ECRCL 113.48 ml/min Normal [facility] Comment on above: Order Comment: 'TROP ' Serial specimen #1, #2 or #3: 1 Performed By: #### L 500.2500, L100.0100, L501.4020 #### [facility] [address] [place], [address] EST GFR - AA 96 mL/min Normal >60 [facility] Comment on above: Order Comment: 'TROP ' Serial specimen #1, #2 or #3: 1 Result Comment: Afri can [place] GFR Calc Performed By: #### L 500.2500, L100.0100, L501.4020 #### [facility] [address] [place], [address] GAP 6 Normal 5-15 [facility] Comment on above: Order Comment: 'TROP ' Serial specimen #1, #2 or #3: 1 Performed By: #### L 500.2500, L100.0100, L501.4020 #### [facility] [address] [place], [address] GFR/1.73 sq M.predicted among non-blacks MDRD (S/P/Bld) [Vol rate/Area] 79 mL/min/{1.73_m2} Normal >60 [facility] Comment on above: Order Comment: 'TROP ' Serial specimen #1, #2 or #3: 1 Result Comment: Non- GFR Calc Performed By: #### L 500.2500, L100.0100, L501.4020 #### [facility] [address] [place], [address] Glucose [Mass/Vol] 86 mg/dL Normal 74-106 [facility] Comment on above: Order Comment: 'TROP ' Serial specimen #1, #2 or #3: 1 Performed By: #### L 500.2500, L100.0100, L501.4020 #### [facility] [address] [place], [address] Potassium [Moles/Vol] 3.6 mmol/L Normal 3.5-5.1 [facility] Comment on above: Order Comment: 'TROP ' Serial specimen #1, #2 or #3: 1 Result Comment: Mode rate Hemolysis, Result may be falsely increased. Performed By: #### L 500.2500, L100.0100, L501.4020 #### [facility] [address] [place], [address] Sodium [Moles/Vol] 140 mmol/L Normal 136-145 [facility] Comment on above: Order Comment: 'TROP ' Serial specimen #1, #2 or #3: 1 Performed By: #### L 500.2500, L100.0100, L501.4020 #### [facility] [address] [place], [address] Urea nitrogen [Mass/Vol] 21 mg/dL High 7-18 [facility] Comment on above: Order Comment: 'TROP ' Serial specimen #1, #2 or #3: 1 Performed By: #### L 500.2500, L100.0100, L501.4020 #### [facility] [address] [place], [address] CBC W/Diff, Automatedon 12-0 SMEAR COMMENT SCANNED Normal [facility] Comment on above: Performed By: #### L 500.2500, L100.0100, L501.4020 #### [facility] [address] [place], [address] D-Dimer Quantitative (DVT/PE )on 08-14-2024 D-DIMER QUANT 0.29 FEU/ug/m Normal 0.27-0.49 [facility] Comment on above: Result Comment: NORM AL D-Dimer level (<0.50) indicates no DVT or PE. Performed By: #### L 300.8000 #### [facility] [address] [place], [address] Emergency Department Summary on 08-14-2024 Emergency Department Summary [facility] Medical Records Department [address] [place] [address] Emergency Department Summary 08/14/24 MR#: [id number] Acct: [id number] Name: OMAR GOMEZ Rep #: [id number] : 1985 38 From: Mariama MOSES PCP: Care Physician,No Primary Status:DEP ER Location: ED HPI History of Present Illness Chief Complaint: General Illness Narrative Narrative: Patient presenting today with multiple vague symptoms. She has a PMH of pseudotumor cerebri, and had a stenting of right transverse sinus stenosis performed on 07/29/[address] Praveen Newby, and migraine hx. she was discharged home [...] shortness of breath, abdominal pain, and vomiting. [facility] Medical History Left ureteral calculus Bruising [...] to inspection (more content not included)... Normal [facility] L501.4020on 08-14-2024 TROPONIN-I HS 7 pg/mL Normal 3.0-54.0 [facility] Comment on above: Order Comment: 'TROP ' Serial specimen #1, #2 or #3: 1 Result Comment: Serg canales Note: New Test Units and Gender Specific Reference Ranges. For more information see Policy Stat Procedure [place] High Sensitivity Troponin (TNIH) and attachments. Performed By: #### L 500.2500, L100.0100, L501.4020 #### [facility] [address] [place], [address] Lipaseon 08-14-2024 Lipase [Catalytic activity/Vol] 31 U/L Normal 13-75 [facility] Comment on above: Result Comment: Serg canales note: LIPASE revised reference range effective 22. New Lipase methodology. Expected to produce lower values than the previous assay method. NEW Reference Range: 13 - 75 U/L Performed By: #### L 500.3400, L501.2450 ####[facility] [address] [place], [address] Liver Profileon 08-14-2024 Albumin [Mass/Vol] 3.1 g/dL Low 3.2-5.0 [facility] Comment on above: Performed By: #### L 500.3400, L501.2450 ####[facility] [address] [place], [address] ALK P 87 U/L Normal 45-117 [facility] Comment on above: Performed By: #### L 500.3400, L501.2450 ####[facility] [address] [place], [address] ALT [Catalytic activity/Vol] 23 U/L Normal 13-56 [facility] Comment on above: Performed By: #### L 500.3400, L501.2450 ####[facility] [address] [place], [address] AST [Catalytic activity/Vol] 10 U/L Low 15-37 [facility] Comment on above: Result Comment: Slig ht Hemolysis, Result may be falsely increased. Performed By: #### L 500.3400, L501.2450 ####[facility] [address] [place], [address] Bilirubin [Mass/Vol] 0.50 mg/dL Normal 0.20-1.00 [facility] Comment on above: Result Comment: For patients on eltrombopag therapy, use of Dimension [place] TBIL is not recommended. Performed By: #### L 500.3400, L501.2450 ####[facility] [address] [place], [address] Bilirubin.direct [Mass/Vol] 0.09 mg/dL Normal 0.00-0.30 [facility] Comment on above: Performed By: #### L 500.3400, L501.2450 ####[facility] [address] [place], [address] Globulin (S) [Mass/Vol] 4.0 g/dL Normal 2.2-4.2 [facility] Comment on above: Performed By: #### L 500.3400, L501.2450 ####[facility] [address] [place], [address] T PROT 7.1 g/dL Normal 6.4-8.2 [facility] Comment on above: Performed By: #### L 500.3400, L501.2450 ####[facility] [address] [place], [address] ,Serum,hCG Quali.on 08-14-2024 HCG, SERUM QUAL Negative Normal [facility] Comment on above: Performed By: #### L 700.6800 ####[facility] [address] [place], [address] Urinalysis, Completeon 08-14 BACTERIA 3+ /hpf Normal None Seen [facility] Comment on above: Order Comment: COLLE CTOR TO SPECIFY Performed By: #### L 400.0001 ####[facility] [address] [place], [address] Mucus Ql (Urine sed) 2+ /hpf Normal [facility] Comment on above: Order Comment: COLLE CTOR TO SPECIFY Performed By: #### L 400.0001 ####[facility] [address] [place], [address] EPI,SQUAMOUS 10-25 SEEN Normal 5-10 [facility] Comment on above: Order Comment: ERIC CTOR TO SPECIFY Performed By: #### L 400.0001 ####[facility] [address] [place], [address] WBC 0-5 SEEN Normal 0-5 [facility] Comment on above: Order Comment: ERIC CTOR TO SPECIFY Performed By: #### L 400.0001 ####[facility] [address] [place], [address] BILIRUBIN URINE Negative Normal Negative [facility] Comment on above: Order Comment: ERIC CTOR TO SPECIFY Performed By: #### L 400.0001 ####[facility] [address] [place], [address] Clarity (U) Clear Normal Clear [facility] Comment on above: Order Comment: ERIC CTOR TO SPECIFY Performed By: #### L 400.0001 ####[facility] [address] [place], [address] Color (U) Straw Normal Yellow [facility] Comment on above: Order Comment: ERIC CTOR TO SPECIFY Performed By: #### L 400.0001 ####[facility] [address] [place], [address] GLUCOSE, UR Normal Normal Normal [facility] Comment on above: Order Comment: ERIC CTOR TO SPECIFY Performed By: #### L 400.0001 ####[facility] [address] [place], [address] KETONE UR Negative Normal Negative [facility] Comment on above: Order Comment: ERIC CTOR TO SPECIFY Performed By: #### L 400.0001 ####[facility] [address] [place], [address] LEUK ESTERASE Negative Normal Negative [facility] Comment on above: Order Comment: COLLE CTOR TO SPECIFY Performed By: #### L 400.0001 ####[facility] [address] [place], [address] Nitrite Ql (U) Negative Normal Negative [facility] Comment on above: Order Comment: COLLE CTOR TO SPECIFY Performed By: #### L 400.0001 ####[facility] [address] [place], [address] OCCULT BLOOD-UR Negative Normal Negative [facility] Comment on above: Order Comment: ERIC CTOR TO SPECIFY Performed By: #### L 400.0001 ####[facility] [address] [place], [address] pH UR 5.0 Normal 5.0 - 8.0 [facility] Comment on above: Order Comment: ERIC CTOR TO SPECIFY Performed By: #### L 400.0001 ####[facility] [address] [place], [address] PROT DIPSTX Negative Normal Negative [facility] Comment on above: Order Comment: ERIC CTOR TO SPECIFY Performed By: #### L 400.0001 ####[facility] [address] [place], [address] SP.GR. DIPSTX 1.030 Normal 1.002-1.030 [facility] Comment on above: Order Comment: ERIC CTOR TO SPECIFY Performed By: #### L 400.0001 ####[facility] [address] [place], [address] UROBILI Normal Normal Normal [facility] Comment on above: Order Comment: ERIC CTOR TO SPECIFY Performed By: #### L 400.0001 ####[facility] [address] [place], [address] RBC 0 SEEN Normal 0-5 [facility] Comment on above: Order Comment: ERIC CTOR TO SPECIFY Performed By: #### L 400.0001 ####[facility] [address] [place], [address] Pancho 08-06-2024 [facility] Telephone ([facility]) OMAR GOMEZ ([id number]) 1985 F Date Time Provider Department 08/06/24 MURPHY KINCAID [facility] During your visit today, we recorded [...] Status:Closed by MURPHY KINCAID on 08/06/24 Normal [facility] CNCOon 07-31-2024 CNCO Letter Text Normal [facility] Basic metabolic 2000 panelon 07-30-2024 Anion gap [Moles/Vol] 13 mmol/L Normal 8-15 [facility] Comment on above: Order Comment: Speci men Type: BLOOD SPECIMEN Ordering Facility: [facility] Address: [address] [place] [address] Performed By: #### 5 7021-8 #### [facility] CLIA [id number] [address] [place] [address] [place] Calcium [Mass/Vol] 8.6 mg/dL Normal 8.5-10.2 [facility] Comment on above: Order Comment: Speci men Type: BLOOD SPECIMEN Ordering Facility: [facility] Address: [address] [place] [address] Performed By: #### 5 7021-8 #### [facility] CLIA [id number] [address] [place] [address] [place] Chloride [Moles/Vol] 108 mmol/L High 98-107 [facility] Comment on above: Order Comment: Speci men Type: BLOOD SPECIMEN Ordering Facility: [facility] Address: [address] [place] [address] Performed By: #### 5 7021-8 #### [facility] CLIA [id number] [address] [place] [address] [place] CO2 [Moles/Vol] 17 mmol/L Low 22-30 [facility] Comment on above: Order Comment: Speci men Type: BLOOD SPECIMEN Ordering Facility: [facility] Address: [address] [place] [address] Performed By: #### 5 7021-8 #### [facility] CLIA [id number] [address] [place] [address] [place] Creatinine [Mass/Vol] 0.65 mg/dL Normal 0.58-0.96 [facility] Comment on above: Order Comment: Speci men Type: BLOOD SPECIMEN Ordering Facility: [facility] Address: [address] [place] [address] Performed By: #### 5 7021-8 #### [facility] CLIA [id number] [address] [place] [address] [place] Creatinine and Glomerular filtration rate.predicted panel (S/P/Bld) 117 mL/min/1.73m??? Normal >=60 [facility] Comment on above: Order Comment: Evaristo griffin Type: BLOOD SPECIMEN Ordering Facility: [facility] Address: [address] [place] [address] Result Comment: Bhavya mated Glomerular Filtration Rate [...] GFR. Performed By: #### 5 7021-8 #### [facility] CLIA [id number] [address] [place] [address] [place] Glucose [Mass/Vol] 182 mg/dL High 74-99 [facility] Comment on above: Order Comment: Evaristo griffin Type: BLOOD SPECIMEN Ordering Facility: [facility] Address: [address] [place] [address] Result Comment: The [place] Diabetes Association (ADA) provides guidance for cutoff [...] Standards of Medical Care in Diabetes 2016, [place] [employer]. Diabetes Care. 2016.39(Suppl 1). Performed By: #### 5 7021-8 #### [facility] CLIA [id number] [address] [place] [address] [place] Potassium [Moles/Vol] 4.5 mmol/L Normal 3.7-5.1 [facility] Comment on above: Order Comment: Speci men Type: BLOOD SPECIMEN Ordering Facility: [facility] Address: [address] [place] [address] Performed By: #### 5 7021-8 #### [facility] CLIA [id number] [address] [place] [address] [place] Sodium [Moles/Vol] 138 mmol/L Normal 136-144 [facility] Comment on above: Order Comment: Speci men Type: BLOOD SPECIMEN Ordering Facility: [facility] Address: [address] [place] [address] Performed By: #### 5 7021-8 #### [facility] CLIA [id number] [address] [place] [address] [place] Urea nitrogen [Mass/Vol] 11 mg/dL Normal 7-21 [facility] Comment on above: Order Comment: Speci men Type: BLOOD SPECIMEN Ordering Facility: [facility] Address: [address] [place] [address] Performed By: #### 5 7021-8 #### [facility] CLIA [id number] [address] [place] [address] [place] CBC panel Auto (Bld)on 07-30 Erythrocyte distribution width (RBC) [Ratio] 15.3 % High 11.5-15.0 [facility] Comment on above: Order Comment: Speci men Type: BLOOD SPECIMEN Ordering Facility: [facility] Address: [address] [place] [address] Performed By: #### 5 7021-8 #### [facility] CLIA [id number] [address] [place] [address] [place] Hematocrit (Bld) [Volume fraction] 35.7 % Low 36.0-46.0 [facility] Comment on above: Order Comment: Speci men Type: BLOOD SPECIMEN Ordering Facility: [facility] Address: [address] [place] [address] Performed By: #### 5 7021-8 #### [facility] CLIA [id number] [address] [place] [address] [place] Hemoglobin (Bld) [Mass/Vol] 11.1 g/dL Low 11.5-15.5 [facility] Comment on above: Order Comment: Speci men Type: BLOOD SPECIMEN Ordering Facility: [facility] Address: [address] [place] [address] Performed By: #### 5 7021-8 #### [facility] CLIA [id number] [address] [place] [address] [place] MCH (RBC) [Entitic mass] 24.0 pg Low 26.0-34.0 [facility] Comment on above: Order Comment: Speci men Type: BLOOD SPECIMEN Ordering Facility: [facility] Address: [address] [place] [address] Performed By: #### 5 7021-8 #### [facility] CLIA [id number] [address] [place] [address] [place] MCHC (RBC) [Mass/Vol] 31.1 g/dL Normal 30.5-36.0 [facility] Comment on above: Order Comment: Speci men Type: BLOOD SPECIMEN Ordering Facility: [facility] Address: [address] [place] [address] Performed By: #### 5 7021-8 #### [facility] CLIA [id number] [address] [place] [address] [place] MCV (RBC) [Entitic vol] 77.1 fL Low 80.0-100.0 [facility] Comment on above: Order Comment: Speci men Type: BLOOD SPECIMEN Ordering Facility: [facility] Address: [address] [place] [address] Performed By: #### 5 7021-8 #### [facility] CLIA [id number] [address] [place] [address] [place] Nucleated RBC (Bld) [#/Vol] 10*3/uL Normal <0.01 [facility] Comment on above: Order Comment: Speci men Type: BLOOD SPECIMEN Ordering Facility: [facility] Address: [address] [place] [address] Performed By: #### 5 7021-8 #### [facility] CLIA [id number] [address] [place] [address] [place] Platelet mean volume (Bld) [Entitic vol] 9.5 fL Normal 9.0-12.7 [facility] Comment on above: Order Comment: Speci men Type: BLOOD SPECIMEN Ordering Facility: [facility] Address: [address] [place] [address] Performed By: #### 5 7021-8 #### [facility] CLIA [id number] [address] [place] [address] [place] Platelets (Bld) [#/Vol] 360 10*3/uL Normal 150-400 [facility] Comment on above: Order Comment: Speci men Type: BLOOD SPECIMEN Ordering Facility: [facility] Address: [address] [place] [address] Performed By: #### 5 7021-8 #### [facility] CLIA [id number] [address] [place], [place] [address] [place] RBC (Bld) [#/Vol] 4.63 10*6/uL Normal 3.90-5.20 [facility] Comment on above: Order Comment: Speci men Type: BLOOD SPECIMEN Ordering Facility: [facility] Address: [address] [place] [address] Performed By: #### 5 7021-8 #### [facility] CLIA [id number] [address] [place], [place] [address] [place] WBC (Bld) [#/Vol] 18.07 10*3/uL High 3.70-11.00 [facility] Comment on above: Order Comment: Evaristo griffin Type: BLOOD SPECIMEN Ordering Facility: [facility] Address: [address] [place] [address] Performed By: #### 5 7021-8 #### [facility] CLIA [id number] [address] [place] [address] [place] CNDSon 07-30-2024 CNDS HNO ID: [id number] Author: CHULA MORTON MD Service: Neurosurgery Author Type: Physician Elementary Math Tutor Type: Discharge Summary Filed: 08/01/2024 15:05 Note Text: Attestation signed by Chula Morton MD at 08/01/2024 3:05 PM Staff: Agree with the above documented information. Plan reviewed and approved by myself. Chula Morton MD Date of Service: July 30, 2024 DISCHARGE SUMMARY NEURO STROKE PATIENT NAME: Omar Gomez ADMISSION DATE: 07/29/2024 DISCHARGE DATE: 07/30/2024 Attending Physician: Chlua Morton MD PCP: No primary care provider [...] depression, adjustment disorder electively admitted to the [facility] to treat her known IIH. After [...] Medication Compliance (more content not included)... Normal [facility] ANES POSTPROC EVALon 024 ANES POSTPROC EVAL HNO ID: [id number] Author: IHSAN FRAGOSO MD Service: ? Author Type: Anesthesiologist Type: Anesthesia Postprocedure Evaluation Filed: 07/29/2024 14:07 Note Text: POST ANESTHESIA EVALUATION NOTE : 1985 Procedure Summary Date: 07/29/24 Room / Location: [id number] / ANGIO HB6 Anesthesia Start: 1042 Anesthesia Stop: Procedures: SELECTIVE CATHETER PLACEMENT EACH [...] July 29, 2024 TIME: 1:52 PM CSN: [id number] Normal [facility] ANES PRE-OPon 07-29-2024 ANES PRE-OP HNO ID: [id number] Author: IHSAN FRAGOSO MD Service: ? Author [...] OF INTRACRANIAL INTRAVASCULAR STENT (Right: Brain) Location: [id number] / MC ANGIO HB6 Surgeons: Chula Morton [...] July 29, 2024 TIME: 10:46 AM CSN: [id number] Normal [facility] ASP/CLOBI RESISTANCE INTERPo n 07-29-2024 Heparin Ab Platelet aggregation Ql (PPP) Reviewed by Kristel Finney MD, PhD [facility] Comment on above: Order Comment: Speci men Type: BLOOD SPECIMEN Ordering Facility: [facility] Address: [address] [place] [address] Performed By: #### A SPCL, ASPCLP #### [facility] CLIA [id number] [address] [place] [address] [place] INTERPRETATION(ASPIR IN/CLOPIDOGREL RESISTANCE) Normal [facility] Comment on above: Order Comment: Eavristo griffin Type: BLOOD SPECIMEN Ordering Facility: [facility] Address: [address] [place] [address] Result Comment: Abno rmal - see comment below. The aggregation results indicate a therapeutic response to aspirin. If the patient is on aspirin therapy, the degree of platelet inhibition indicates aspirin responsiveness because the arachidonic acid aggregation is <20 percent and the ADP aggregation is <70 percent. These parameters were developed at the [facility] utilizing the assay and reagents performed on this patient's platelets. Blanca MOSES. Ning MOSES. Sherry MAURER. A prospective, blinded determination of the natural history of aspirin resistance among stable patients with cardiovascular disease. Journal of the [place] [employer]. 41(6):961-5, 2002. If the patient is on clopidogrel therapy, [...] Performed By: #### A SPCL, ASPCLP #### [facility] CLIA [id number] [address] [place] [address] [place] ASPIRIN/CLOPIDOGREL RESISTAN CEon 07-29-2024 Platelet aggregation ADP induced High dose (PRP) [Rel units/Vol] 44 % Max Low 65-93 [facility] Comment on above: Order Comment: Evaristo griffin Type: BLOOD SPECIMEN Ordering Facility: [facility] Address: [address] [place] [address] Result Comment: See clinically significant comment below. For patients on clopidogrel, ADP aggregation >40% suggests clopidogrel resistance. Performed By: #### A SPCL, ASPCLP #### [facility] CLIA [id number] [address] [place] [address] [place] Platelet aggregation arachidonate induced 500 ug/mL (PRP) [Rel units/Vol] 12 % Max Low 75-100 [facility] Comment on above: Order Comment: Speci men Type: BLOOD SPECIMEN Ordering Facility: [facility] Address: [address] [place] [address] Performed By: #### A SPCL, ASPCLP #### [facility] CLIA [id number] [address] [place] [address] [place] BRIEF OP NOTon 07-29-2024 BRIEF OP NOT HNO ID: [id number] Author: AUSTIN BUSTAMANTE MD Service: Neuroendovascular Intervention Author Type: Fellow Type: Brief Op Note Filed: 07/29/2024 14:29 Note Text: BRIEF OP/PROCEDURE NOTE NEURO INTERVENTIONAL PROCEDURE DATE: July 29, 2024 LOG ID: [id number] Surgery/Procedure Date: 07/29/2024 Incision/Procedure Start Time: 11:50 AM Incision Close/Procedure End Time: 1:30 PM Anesthesia: General PRIMARY PROCEDURALIST: Rachael Morton M.D. SHEET FED PRINTER(S): Austin Bustamante MD CASE STATUS: Inpatient/Emergent PROCEDURE: [...] July 29, 2024 TIME: 1:51 PM Normal [facility] IR CAROTIDon 07-29-2024 IR CAROTID * * *Final Report* * * DATE OF EXAM: Jul 29 2024 1:30PM [facility] 0740 - IR CAROTID / PROCEDURE REASON: [...] END TIME: 1330 ATTENDING: Chula Morton MD SHEET FED PRINTER (FELLOW): Austin Bustamante MD ANGIOGRAPHY MATERIALS: Guidewire: 0.035 inch angled tapered Glidewire Arterial: Diagnostic catheter: 5 Nigerian Sutton catheter catheter Venous: Diagnostic catheter: 5 Nigerian Vert Catheter Guide catheter: 8 Fr x [...] Seldinger technique under ultrasound guidance. A 5 Nigerian Prelude IDeal sheath introducer sheath was inserted [...] carotid ar (more content not included)... Normal [facility] IR CAROTID CERVICALon 2023 IR CAROTID CERVICAL * * *Final Report* * * DATE OF EXAM: Jul 29 2024 1:30PM NDA 0857 - IR CAROTID CERVICAL / PROCEDURE [...] TIME: 1150 PROCEDURE END TIME: 1330 ATTENDING: Cuhla Morton MD SHEET FED PRINTER (FELLOW): Austin Bustamante MD ANGIOGRAPHY MATERIALS: Guidewire: 0.035 inch angled tapered Glidewire Arterial: Diagnostic catheter: 5 Nigerian Sutton catheter catheter Venous: Diagnostic catheter: 5 Nigerian Vert Catheter Guide catheter: 8 Fr x [...] Seldinger technique under ultrasound guidance. A 5 Nigerian Prelude IDeal sheath introducer sheath was inserted [...] internal c (more content not included)... Normal [facility] IR NEUROVASCULAR STENTon IR NEUROVASCULAR STENT * * *Final Report* * * DATE OF EXAM: Jul 29 2024 1:30PM [facility] 0780 - IR NEUROVASCULAR STENT / PROCEDURE [...] END TIME: 1330 ATTENDING: Chula Morton MD SHEET FED PRINTER (FELLOW): Austin Bustamante MD ANGIOGRAPHY MATERIALS: Guidewire: 0.035 inch angled tapered Glidewire Arterial: Diagnostic catheter: 5 Nigerian Sutton catheter catheter Venous: Diagnostic catheter: 5 Nigerian Vert Catheter Guide catheter: 8 Fr x [...] Seldinger technique under ultrasound guidance. A 5 Nigerian Prelude IDeal sheath introducer sheath was inserted [...] internal caroti (more content not included)... Normal [facility] Urinalysis complete panel (U )on 07-29-2024 Bacteria LM.HPF (Urine sed) [#/Area] Negative Normal Negative [facility] Comment on above: Order Comment: Speci men Type: URINE SPECIMEN Ordering Facility: [facility] Address: [address] [place] [address] Performed By: #### 2 4356-8 #### [facility] CLIA [id number] [address] [place] [address] [place] Bilirubin Ql (U) Negative Normal Negative [facility] Comment on above: Order Comment: Speci men Type: URINE SPECIMEN Ordering Facility: [facility] Address: [address] [place] [address] Performed By: #### 2 4356-8 #### [facility] CLIA [id number] [address] [place] [address] [place] Clarity (Unsp spec) Cloudy Abnormal Clear [facility] Comment on above: Order Comment: Speci men Type: URINE SPECIMEN Ordering Facility: [facility] Address: [address] [place] [address] Performed By: #### 2 4356-8 #### [facility] CLIA [id number] [address] [place] [address] [place] Color (U) Dark Yellow Abnormal Yellow [facility] Comment on above: Order Comment: Speci men Type: URINE SPECIMEN Ordering Facility: [facility] Address: [address] [place] [address] Performed By: #### 2 4356-8 #### [facility] CLIA [id number] [address] [place] [address] [place] Epithelial cells LM.HPF (Urine sed) [#/Area] None Seen Normal [facility] Comment on above: Order Comment: Speci men Type: URINE SPECIMEN Ordering Facility: [facility] Address: [address] [place], [place] [address] Performed By: #### 2 4356-8 #### [facility] CLIA [id number] [address] [place] [address] [place] Glucose Test strip (U) [Mass/Vol] Negative Normal Negative [facility] Comment on above: Order Comment: Speci men Type: URINE SPECIMEN Ordering Facility: [facility] Address: [address] [place] [address] Performed By: #### 2 4356-8 #### [facility] CLIA [id number] [address] [place] [address] [place] Hemoglobin Ql (U) Negative Normal Negative [facility] Comment on above: Order Comment: Speci men Type: URINE SPECIMEN Ordering Facility: [facility] Address: [address] [place] [address] Performed By: #### 2 4356-8 #### [facility] CLIA [id number] [address] [place] [address] [place] Hyaline casts (Urine sed) [#/Area] 0 /[LPF] Normal 0 /LPF [facility] Comment on above: Order Comment: Speci men Type: URINE SPECIMEN Ordering Facility: [facility] Address: [address] [place] [address] Performed By: #### 2 4356-8 #### [facility] CLIA [id number] [address] [place] [address] [place] Ketones Ql (U) Trace Abnormal Negative [facility] Comment on above: Order Comment: Speci men Type: URINE SPECIMEN Ordering Facility: [facility] Address: [address] [place] [address] Performed By: #### 2 4356-8 #### [facility] CLIA [id number] [address] [place] [address] [place] Leukocyte esterase Test strip Ql (U) Negative Normal Negative [facility] Comment on above: Order Comment: Speci men Type: URINE SPECIMEN Ordering Facility: [facility] Address: [address] [place] [address] Performed By: #### 2 4356-8 #### [facility] CLIA [id number] [address] [place] [address] [place] Nitrite Ql (U) Negative Normal Negative [facility] Comment on above: Order Comment: Speci men Type: URINE SPECIMEN Ordering Facility: [facility] Address: [address] [place] [address] Performed By: #### 2 4356-8 #### [facility] CLIA [id number] [address] [place] [address] [place] pH (U) 8.0 [pH] Normal <8.5 [facility] Comment on above: Order Comment: Speci men Type: URINE SPECIMEN Ordering Facility: [facility] Address: [address] [place] [address] Performed By: #### 2 4356-8 #### [facility] CLIA [id number] [address] [place] [address] [place] Protein (U) [Mass/Vol] Negative Normal Negative [facility] Comment on above: Order Comment: Speci men Type: URINE SPECIMEN Ordering Facility: [facility] Address: [address] [place] [address] Performed By: #### 2 4356-8 #### [facility] CLIA [id number] [address] [place] [address] [place] RBC LM.HPF (Urine sed) [#/Area] 3-5 /HPF Abnormal 0-2 /HPF [facility] Comment on above: Order Comment: Speci men Type: URINE SPECIMEN Ordering Facility: [facility] Address: [address] [place] [address] Performed By: #### 2 4356-8 #### [facility] CLIA [id number] [address] [place] [address] [place] Specific gravity (U) [Rel density] 1.018 Normal 1.005-1.030 [facility] Comment on above: Order Comment: Speci men Type: URINE SPECIMEN Ordering Facility: [facility] Address: [address] [place] [address] Performed By: #### 2 4356-8 #### [facility] CLIA [id number] [address] [place] [address] [place] Urobilinogen Ql (U) 1.0 EU/dL Normal 0.2-1.0 EU/dL [facility] Comment on above: Order Comment: Speci men Type: URINE SPECIMEN Ordering Facility: [facility] Address: [address] [place] [address] Performed By: #### 2 4356-8 #### [facility] CLIA [id number] [address] [place] [address] [place] WBC LM.HPF (Urine sed) [#/Area] 0-5 /HPF Normal 0-5 /HPF [facility] Comment on above: Order Comment: Speci men Type: URINE SPECIMEN Ordering Facility: [facility] Address: [address] [place] [address] Performed By: #### 2 4356-8 #### [facility] CLIA [id number] [address] [place] [address] [place] B-[facility] 4 HCG.beta subunit Qn m[IU]/mL Normal <5.0 [facility] Comment on above: Order Comment: Speci men Type: BLOOD SPECIMEN Ordering Facility: [facility] Address: [address] [place] [address] Result Comment: Nega tive Performed By: #### 2 1198-7 #### [facility] CLIA [id number] [address] [place] [address] [place] Basic metabolic 2000 panelon 07-25-2024 Anion gap [Moles/Vol] 12 mmol/L Normal - [facility] Comment on above: Order Comment: Speci men Type: BLOOD SPECIMEN Ordering Facility: [facility] Address: [address] [place] [address] Performed By: #### 2 4321-2 #### [facility] CLIA [id number] [address] [place] [address] [place] Calcium [Mass/Vol] 8.9 mg/dL Normal 8.5-10.2 [facility] Comment on above: Order Comment: Speci men Type: BLOOD SPECIMEN Ordering Facility: [facility] Address: [address] [place] [address] Performed By: #### 2 4321-2 #### [facility] CLIA [id number] [address] [place] [address] [place] Chloride [Moles/Vol] 109 mmol/L High 98-107 [facility] Comment on above: Order Comment: Speci men Type: BLOOD SPECIMEN Ordering Facility: [facility] Address: [address] [place] [address] Performed By: #### 2 4321-2 #### [facility] CLIA [id number] [address] [place] CO2 [Moles/Vol] 18 mmol/L Low 22-30 [facility] Comment on above: Order Comment: Speci men Type: BLOOD SPECIMEN Ordering Facility: [facility] Address: [address] [place] [address] Performed By: #### 2 4321-2 #### [facility] CLIA [id number] [address] [place] [address] [place] Creatinine [Mass/Vol] 0.67 mg/dL Normal 0.58-0.96 [facility] Comment on above: Order Comment: Speci men Type: BLOOD SPECIMEN Ordering Facility: [facility] Address: [address] [place] [address] Performed By: #### 2 4321-2 #### [facility] CLIA [id number] [address] Creatinine and Glomerular filtration rate.predicted panel (S/P/Bld) 116 mL/min/1.73m??? Normal >=60 [facility] Comment on above: Order Comment: Speci men Type: BLOOD SPECIMEN Ordering Facility: [facility] Address: [address] [place] [address] Result Comment: Bhavya mated Glomerular Filtration Rate [...] GFR. Performed By: #### 2 4321-2 #### [facility] CLIA [id number] [address] [place] [address] [place] Glucose [Mass/Vol] 115 mg/dL High 74-99 [facility] Comment on above: Order Comment: Evaristo griffin Type: BLOOD SPECIMEN Ordering Facility: [facility] Address: [address] [place] [address] Result Comment: The [place] [employer] Association (ADA) provides guidance for cutoff [...] Standards of Medical Care in Diabetes 2016, [place] [employer]. Diabetes Care. 2016.39(Suppl 1). Performed By: #### 2 4321-2 #### [facility] CLIA [id number] [address] [place] [address] [place] Potassium [Moles/Vol] 4.6 mmol/L Normal 3.7-5.1 [facility] Comment on above: Order Comment: Evaristo griffin Type: BLOOD SPECIMEN Ordering Facility: [facility] Address: [address] [address] Performed By: #### 2 4321-2 #### [facility] CLIA [id number] [address] [place] [address] [place] Sodium [Moles/Vol] 139 mmol/L Normal 136-144 [facility] Comment on above: Order Comment: Evaristo griffin Type: BLOOD SPECIMEN Ordering Facility: [facility] Address: [address] [address] Performed By: #### 2 4321-2 #### [facility] CLIA [id number] [address] [place] Urea nitrogen [Mass/Vol] 13 mg/dL Normal 7-21 [facility] Comment on above: Order Comment: Speci men Type: BLOOD SPECIMEN Ordering Facility: [facility] Address: [address] [place] [address] Performed By: #### 2 4321-2 #### [facility] CLIA [id number] [address] [place] CBC panel Auto (Bld)on 07-25 Erythrocyte distribution width (RBC) [Ratio] 15.0 % Normal 11.5-15.0 [facility] Comment on above: Order Comment: Speci men Type: BLOOD SPECIMEN Ordering Facility: [facility] Address: [address] [place] [address] Performed By: #### 5 8410-2 #### [facility] CLIA [id number] [address] [place] Hematocrit (Bld) [Volume fraction] 37.4 % Normal 36.0-46.0 [facility] Comment on above: Order Comment: Speci men Type: BLOOD SPECIMEN Ordering Facility: [facility] Address: [address] [place] [address] Performed By: #### 5 8410-2 #### [facility] CLIA [id number] [address] [place] Hemoglobin (Bld) [Mass/Vol] 11.4 g/dL Low 11.5-15.5 [facility] Comment on above: Order Comment: Speci men Type: BLOOD SPECIMEN Ordering Facility: [facility] Address: [address] [place] [address] Performed By: #### 5 8410-2 #### [facility] CLIA [id number] [address] [place] MCH (RBC) [Entitic mass] 23.9 pg Low 26.0-34.0 [facility] Comment on above: Order Comment: Speci men Type: BLOOD SPECIMEN Ordering Facility: [facility] Address: [address] [place] [address] Performed By: #### 5 8410-2 #### [facility] CLIA [id number] [address] MCHC (RBC) [Mass/Vol] 30.5 g/dL Normal 30.5-36.0 [facility] Comment on above: Order Comment: Speci men Type: BLOOD SPECIMEN Ordering Facility: [facility] Address: [address] [place] [address] Performed By: #### 5 8410-2 #### [facility] CLIA [id number] [address] [place] MCV (RBC) [Entitic vol] 78.4 fL Low 80.0-100.0 [facility] Comment on above: Order Comment: Speci men Type: BLOOD SPECIMEN Ordering Facility: [facility] Address: [address] [place] [address] Performed By: #### 5 8410-2 #### [facility] CLIA [id number] [address] Nucleated RBC (Bld) [#/Vol] 10*3/uL Normal <0.01 [facility] Comment on above: Order Comment: Speci men Type: BLOOD SPECIMEN Ordering Facility: [facility] Address: [address] [place] [address] Performed By: #### 5 8410-2 #### [facility] CLIA [id number] [address] [place] Platelet mean volume (Bld) [Entitic vol] 9.0 fL Normal 9.0-12.7 [facility] Comment on above: Order Comment: Speci men Type: BLOOD SPECIMEN Ordering Facility: [facility] Address: [address] [place] [address] Performed By: #### 5 8410-2 #### [facility] CLIA [id number] [address] Platelets (Bld) [#/Vol] 332 10*3/uL Normal 150-400 [facility] Comment on above: Order Comment: Speci men Type: BLOOD SPECIMEN Ordering Facility: [facility] Address: [address] [place] [address] Performed By: #### 5 8410-2 #### [facility] CLIA [id number] [address] [place] RBC (Bld) [#/Vol] 4.77 10*6/uL Normal 3.90-5.20 [facility] Comment on above: Order Comment: Speci men Type: BLOOD SPECIMEN Ordering Facility: [facility] Address: [address] [place] [address] Performed By: #### 5 8410-2 #### [facility] CLIA [id number] [address] WBC (Bld) [#/Vol] 10.03 10*3/uL Normal 3.70-11.00 [facility] Comment on above: Order Comment: Speci men Type: BLOOD SPECIMEN Ordering Facility: [facility] Address: [address] [place] [address] Performed By: #### 5 8410-2 #### [facility] CLIA [id number] [address] CONFIRM BLOOD TYPEon 024 ABO O [facility] Comment on above: Order Comment: Speci men Type: BLOOD SPECIMEN Ordering Facility: [facility] Address: [address] [place] [address] Performed By: #### C ONABO #### [facility] CLIA [id number] [address] Rh Nom (Bld) Positive [facility] Comment on above: Order Comment: Speci men Type: BLOOD SPECIMEN Ordering Facility: [facility] Address: [address] [place] [address] Performed By: #### C ONABO #### [facility] CLIA [id number] [address] HISTORY PHYSICALon HISTORY PHYSICAL HNO ID: [id number] Author: JENISE FAM APRN.[employer] Service: ? Author Type: Nurse Practitioner Type: [...] or fevers. N (more content not included)... Normal [facility] TYPE AND SCREEN,30 DAYon ABO O [facility] Comment on above: Order Comment: Speci men Type: BLOOD SPECIMEN Ordering Facility: [facility] Address: [address] [place] [address] Performed By: #### T SCR30 #### [facility] CLIA [id number] [address] Rh Nom (Bld) Positive [facility] Comment on above: Order Comment: Speci men Type: BLOOD SPECIMEN Ordering Facility: [facility] Address: [address] [place] [address] Performed By: #### T SCR30 #### [facility] CLIA [id number] [address] .Auto Diffon 07-24-2024 Basophil, Absolute 0.1 10 3/mcL Normal 0.0-0.2 [facility] Comment on above: Performed By: #### U A, PREGU, UAMICAO #### [address] [address] Basophils/100 WBC (Bld) 0.8 % Normal 0.0-2.5 [facility] Comment on above: Performed By: #### U A, PREGU, UAMICAO #### [address] [address] Eosinophil, Absolute 0.2 10 3/mcL Normal 0.0-0.7 [facility] Comment on above: Performed By: #### U A, PREGU, UAMICAO #### [address] [address] Eosinophils/100 WBC (Bld) 1.5 % Normal 0.0-7.0 [facility] Comment on above: Performed By: #### U A, PREGU, UAMICAO #### [address] [address] Lymphocyte, Absolute 2.5 10 3/mcL Normal 0.9-4.3 [facility] Comment on above: Performed By: #### U A PREGU, UAMICAO #### [address] [address] Lymphocytes/100 WBC (Bld) 21.7 % Normal 20.0-40.0 [facility] Comment on above: Performed By: #### U A PREGU UAMICAO #### [address] [address] Monocyte, Absolute 0.8 10 3/mcL Normal 0.1-1.4 [facility] Comment on above: Performed By: #### U A PREGU UAMICAO #### [address] [address] Monocytes/100 WBC (Bld) 7.1 % Normal 2.0-13.0 [facility] Comment on above: Performed By: #### U Gris PREGU UAMICAO #### [address] [address] Neutrophils/100 WBC (Bld) 68.9 % Normal 50.0-75.0 [facility] Comment on above: Performed By: #### U Gris PREGU UAMICAO #### [address] [address] .GFRon 07-24-2024 GFR 76 ml/min/1.73sqm Normal [facility] Comment on above: Result Comment: GFR [...] mL/min/1.73 square meters Performed By: #### U A, PREGU, UAMICAO #### [address] [address] GFR Non- 63 ml/min/1.73sqm Normal [facility] Comment on above: Result Comment: GFR [...] mL/min/1.73 square meters Performed By: #### U A, PREGU, UAMICAO #### [place] [address] .MDWon 07-24-2024 Monocyte Distribution Width 17.71 Normal 0.00-20.00 [facility] Comment on above: Result Comment: For ED adult patients suspected of sepsis, MDW<=20.0 does not rule out sepsis or risk of sepsis Performed By: #### U A, PREGU, UAMICAO #### [place] [address] .NEUABSon 07-24-2024 Neutrophil, Absolute 8.0 10 3/mcL Normal 2.3-8.1 [facility] Comment on above: Performed By: #### U A, PREGU, UAMICAO #### [place] [address] .Urinalysis Microscopic (AO) on 07-24-2024 UA Bacteria 1+ /hpf Abnormal [facility] Comment on above: Performed By: #### U A, PREGU, UAMICAO #### [place] [address] UA CA Ox Crystal 2+ /hpf Normal [facility] Comment on above: Performed By: #### U A, PREGU, UAMICAO #### [address] [address] UA RBC 0-5 Abnormal None Seen [facility] Comment on above: Performed By: #### U A, PREGU, UAMICAO #### [address] [address] UA Squam Epithelial 15-25 Abnormal None Seen [facility] Comment on above: Performed By: #### U A, PREGU, UAMICAO #### [address] [address] UA WBC 0-5 Abnormal None Seen [facility] Comment on above: Performed By: #### U A, PREGU, UAMICAO #### [address] [address] BMPon 07-24-2024 BUN/Creatinine Ratio 13 ratio Normal 7-27 [facility] Comment on above: Performed By: #### U A, PREGU, UAMICAO #### [address] [address] Calcium [Mass/Vol] 8.7 mg/dL Normal 8.4-10.2 [facility] Comment on above: Performed By: #### U A, PREGU, UAMICAO #### [address] [address] Chloride [Moles/Vol] 104 mmol/L Normal 98-107 [facility] Comment on above: Performed By: #### U A, PREGU, UAMICAO #### [address] [address] CO2 [Moles/Vol] 27 mmol/L Normal 22-29 [facility] Comment on above: Performed By: #### U A, PREGU, UAMICAO #### [address] [address] Creatinine [Mass/Vol] 1.00 mg/dL Normal 0.55-1.02 [facility] Comment on above: Result Comment: Test ing performed on Siemens Dimension EXL analyzer using a modified kinetic Gino technique. Performed By: #### BAKARI Josue UAMICPEDRITO #### [address] [address] Electrolyte Balance 11.0 mEq/L Normal 4.0-15.0 [facility] Comment on above: Performed By: #### BAKARI Josue UAMICAO #### [address] [address] Glucose [Mass/Vol] 105 mg/dL Normal 70-105 [facility] Comment on above: Performed By: #### BAKARI Josue UAMICPEDRITO #### [address] [address] Potassium [Moles/Vol] 4.1 mmol/L Normal 3.5-5.1 [facility] Comment on above: Performed By: #### BAKARI Josue UAMICPEDIRTO #### [address] [address] Sodium [Moles/Vol] 142 mmol/L Normal 136-145 [facility] Comment on above: Performed By: #### BAKARI Josue UAMICPEDRITO #### [address] [address] Urea nitrogen [Mass/Vol] 13 mg/dL Normal 7-18 [facility] Comment on above: Performed By: #### BAKARI Josue UAMICPEDRITO #### [address] [address] CBCon 07-24-2024 Erythrocyte distribution width (RBC) [Ratio] 15.8 % High 11.5-15.5 [facility] Comment on above: Performed By: #### BAKARI Josue UAMICAO #### [address] [address] Hematocrit (Bld) [Volume fraction] 37.4 % Normal 34.0-46.0 [facility] Comment on above: Performed By: #### U BAKARI Landry UAMICAO #### [address] [address] Hgb 12.2 G/dL Normal 12.0-16.0 [facility] Comment on above: Performed By: #### BAKARI Josue UAMICPEDRITO #### [address] [address] MCH (RBC) [Entitic mass] 24.4 pg Low 27.0-33.0 [facility] Comment on above: Performed By: #### BAKARI Josue UAMICPEDRITO #### [address] [address] MCHC 32.5 G/dL Normal 32.0-36.0 [facility] Comment on above: Performed By: #### BAKARI Josue UAMICPEDRITO #### [address] [address] MCV (RBC) [Entitic vol] 74.9 fL Low 80.0-99.0 [facility] Comment on above: Performed By: #### BAKARI Josue UAMICPEDRITO #### [address] [address] Platelet 347 10 3/mcL Normal 150-450 [facility] Comment on above: Performed By: #### BAKARI Josue UAMICPEDRITO #### [address] [address] Platelet mean volume (Bld) [Entitic vol] 7.1 fL Normal 6.6-10.5 [facility] Comment on above: Performed By: #### BAKARI Josue UAMICPEDRITO #### [address] [address] RBC 4.99 10 6/mcL Normal 4.10-5.30 [facility] Comment on above: Performed By: #### BAKARI Josue UAMICAO #### [address] [address] WBC 11.7 10 3/mcL High 4.5-10.8 [facility] Comment on above: Performed By: #### Corrina BAKARI Landry UAMICAO #### [address] [place], [place] [address] Pancho 07-24-2024 CNPN Telephone (NECVS8) OMAR SERRANO ([id number]) 1985 F Date Time Provider Department 07/24/24 [...] Serrano, 1985). Yes Number to return call [phone] Reason for Call: Symptoms Call: Symptoms: patient [...] pain: head [facility] Thank you calling [facility] [place]. You will receive a return call within [...] Returned call, pt did not answer, left to call back. Karli Charles RN 07/24/2024 [...] the house) Also has constant nausea. Currently 6/10 SEGOVIA, has not checked her BP in [...] intracranial h (more content not included)... Normal [facility] CT HEAD OR BRAIN W/O CONTRAS Ton 07-24-2024 CT HEAD OR BRAIN W/O CONTRAST ORIGINAL EXAMINATION: CT OF THE HEAD WITHOUT WQRGXYVU99/14/2024 5:[address] HEAD/BRAIN WITHOUT CONTRAST EXAM [...] 07/24/2024 5:13:58 PM Ordering Provider: BROOK Edwards [facility] LABORATORYOrdered By: SYSTEM SYSTEM on 07-24-2024 [...] HCG ( test) Ql (U) Negative Normal [facility] Comment on above: Performed By: #### U A, PREGU, UAMICAO #### [place] [address] test (u) int Not detected Invalid Interpretation Code [facility] Comment on above: Performed By: #### U A, PREGU, UAMICAO #### [place] [address] UAon 07-24-2024 Color (U) Yellow Normal [facility] Comment on above: Performed By: #### U A, PREGU, UAMICAO #### [place] [address] Glucose (U) [Mass/Vol] Negative Normal Negative [facility] Comment on above: Performed By: #### U A, PREGU, UAMICAO #### [place] [address] Ketones Ql (U) Trace Abnormal Negative [facility] Comment on above: Performed By: #### U A, PREGU, UAMICAO #### [place] [address] UA Appear Clear Normal Clear [facility] Comment on above: Performed By: #### U A, PREGU, UAMICAO #### [place] [address] UA Blood Negative Normal Negative [facility] Comment on above: Performed By: #### U A, PREGU, UAMICAO #### [place] [address] UA Leuk Est Negative Normal Negative [facility] Comment on above: Performed By: #### U A, PREGU, UAMICAO #### [place] [address] UA Nitrite Negative Normal Negative [facility] Comment on above: Performed By: #### U A, PREGU, UAMICAO #### [place] [address] UA pH 5.5 Normal 5.0 - 8.0 [facility] Comment on above: Performed By: #### U A, PREGU, UAMICAO #### [address] [address] UA Protein 30 mg/dL Normal Negative [facility] Comment on above: Performed By: #### U A PREGU, UAMICAO #### [address] [place], [place] [address] UA Spec Grav >=1.030 Abnormal 1.015-1.025 [facility] Comment on above: Performed By: #### U A PREGU, UAMICAO #### [address] [address] UA Specimen Type Clean Catch Normal [facility] Comment on above: Performed By: #### U A, PREGU, UAMICAO #### [address] [place], [place] [address] UA Urobilinogen 0.2 E.U./dL Normal 0.2-1.0 [facility] Comment on above: Performed By: #### U A PREGU, UAMICAO #### [address] [address] Urobilinogen (U) [Mass/Vol] Negative Normal Negative [facility] Comment on above: Performed By: #### U A PREGU, UAMICAO #### [address] [address] Pancho [facility] OMAR SERRANO ([id number]) 1985 F Date Time Provider Department 07/15/24 [facility] During your visit today, we recorded the [...] Status:Closed by JONATHAN ARANDA on 07/15/24 Normal [facility] Abdomen/Pelvis without Conto n 07-02-2024 Abdomen/Pelvis without Cont [facility] Imaging Services [address] [place] [address] Abdomen/Pelvis without Cont MR#: [id number] Acct: [id number] Name: OMAR GOMEZ Rep #: [id number] : 1985 F 38 From: Gary Hatch DO PCP: Care Physician,No Primary Status: REG ER Study: Abdomen/Pelvis without Cont Date of Exam: 06/11 12/01 Exam# [id number] Ordering Dr: Herve Awad DO [id number] STUDY: CT ABDOMEN AND PELVIS WITHOUT CONTRAST [...] Signed: Gary Hatch DO at 21:01 EDT , CC: Dr. Herve Awad DO; No Primary Care Physician Print Binding Worker: Signed Normal [facility] Basic Metabolic Profile (BMP )on 07-02-2024 BUN/CRE 20.1 RATIO High 06-29 [facility] Comment on above: Performed By: #### L 700.6800, L100.0100, L500.2500 #### [facility] [address] [place], [address] CA,Total 8.8 mg/dL Normal 8.5-10.1 [facility] Comment on above: Performed By: #### L 700.6800, L100.0100, L500.2500 #### [facility] [address] [place], [address] Chloride [Moles/Vol] 113 mmol/L High 98-107 [facility] Comment on above: Performed By: #### L 700.6800, L100.0100, L500.2500 #### [facility] [address] [place], [address] CO2 [Moles/Vol] 21.0 mmol/L Normal 21.0-32.0 [facility] Comment on above: Performed By: #### L 700.6800, L100.0100, L500.2500 #### [facility] [address] [place], [address] Creatinine [Mass/Vol] 0.84 mg/dL Normal 0.55-1.02 [facility] Comment on above: Result Comment: The validity of the calculated GFR GFRAA in patients over 70 years has not been determined. Clinical correlation is essential. Performed By: #### L 700.6800, L100.0100, L500.2500 #### [facility] [address] [place], [address] ECRCL 114.06 ml/min Normal [facility] Comment on above: Performed By: #### L 700.6800, L100.0100, L500.2500 #### [facility] [address] [place], [address] EST GFR - AA 98 mL/min Normal >60 [facility] Comment on above: Result Comment: Afri can Nicaraguan GFR Calc Performed By: #### L 700.6800, L100.0100, L500.2500 #### [facility] [address] [place], [address] GAP 7 Normal 5-15 [facility] Comment on above: Performed By: #### L 700.6800, L100.0100, L500.2500 #### [facility] [address] [place], [address] GFR/1.73 sq M.predicted among non-blacks MDRD (S/P/Bld) [Vol rate/Area] 81 mL/min/{1.73_m2} Normal >60 [facility] Comment on above: Result Comment: Non- GFR Calc Performed By: #### L 700.6800, L100.0100, L500.2500 #### [facility] [address] [place], [address] Glucose [Mass/Vol] 116 mg/dL High 74-106 [facility] Comment on above: Result Comment: Fast ing Glucose result from 100 to 125 mg/dL suggests IMPAIRED HOMEOSTASIS per A.D.A. criteria. Performed By: #### L 700.6800, L100.0100, L500.2500 #### [facility] [address] [place], [address] Potassium [Moles/Vol] 3.9 mmol/L Normal 3.5-5.1 [facility] Comment on above: Performed By: #### L 700.6800, L100.0100, L500.2500 #### [facility] [address] [place], [address] Sodium [Moles/Vol] 140 mmol/L Normal 136-145 [facility] Comment on above: Performed By: #### L 700.6800, L100.0100, L500.2500 #### [facility] [address] [place], [address] Urea nitrogen [Mass/Vol] 17 mg/dL Normal 7-18 [facility] Comment on above: Performed By: #### L 700.6800, L100.0100, L500.2500 #### [facility] [address] [place], [address] CBC W/Diff, Automatedon 10-2 PLT EST ADEQUATE Normal ADEQ [facility] Comment on above: Performed By: #### L 700.6800, L100.0100, L500.2500 #### [facility] [address] [place], [address] SMEAR COMMENT SCANNED Normal [facility] Comment on above: Performed By: #### L 700.6800, L100.0100, L500.2500 #### [facility] [address] [place], [address] Emergency Department Summary on 07-02-2024 Emergency Department Summary [facility] Medical Records Department [address] [place] [address] Emergency Department Summary 07/02/24 MR#: [id number] Acct: [id number] Name: OMAR GOMEZ Rep #: [id number] : 1985 38 From: Herve Awad DO [...] 98 100 Oxygen Delivery Method Room Air [facility] Narrative Medical decision making narrative: HISTORY OF [...] reviewed, Vital signs reviewed Constitutional: please see [facility] HENT: MMM Eyes: Pupils equal round and [...] History obtained from others: none Consults: none [facility] Narrative: Patient was initially hemodynamically stable, afebrile [...] inflammation sug (more content not included)... Normal [facility] OCT OPTIC NERVE CIRRUS OU (B OTH EYES)on 07-02-2024 [facility] Radiology Study observation (narrative) [facility] ,Serum,hCG Quali.on 07-02-2024 HCG, SERUM QUAL Negative Normal [facility] Comment on above: Performed By: #### L 700.6800, L100.0100, L500.2500 #### [facility] [address] [place], [address] Urinalysis, Completeon 07-02 RBC 0-5 SEEN Normal 0-5 [facility] Comment on above: Order Comment: CLEAN CATCH Performed By: #### L 400.0001 #### [facility] [address] [place], [address] WBC 0-5 SEEN Normal 0-5 [facility] Comment on above: Order Comment: CLEAN CATCH Performed By: #### L 400.0001 #### [facility] [address] [place], [address] EPI,SQUAMOUS 0-5 SEEN Normal 5-10 [facility] Comment on above: Order Comment: CLEAN CATCH Performed By: #### L 400.0001 #### [facility] [address] [place], [address] EPI,TRANSITION 0-5 SEEN Normal 0-5 [facility] Comment on above: Order Comment: CLEAN CATCH Performed By: #### L 400.0001 #### [facility] [address] [place], [address] BACTERIA 1+ /hpf Normal None Seen [facility] Comment on above: Order Comment: CLEAN CATCH Performed By: #### L 400.0001 #### [facility] [address] [place], [address] VISUAL FIELD 24-2 OU (BOTH E YES)on 07-02-2024 [facility] Radiology Study observation (narrative) [facility] .Auto Diffon 06-12-2024 Basophil, Absolute 0.1 10 3/mcL Normal 0.0-0.2 [facility] Comment on above: Performed By: #### U A, PREGU, UAMICAO #### [address] [address] Basophils/100 WBC (Bld) 1.1 % Normal 0.0-2.5 [facility] Comment on above: Performed By: #### U A, PREGU, UAMICAO #### [address] [address] Eosinophil, Absolute 0.1 10 3/mcL Normal 0.0-0.7 [facility] Comment on above: Performed By: #### U A, PREGU, UAMICAO #### [address] [address] Eosinophils/100 WBC (Bld) 0.6 % Normal 0.0-7.0 [facility] Comment on above: Performed By: #### U A, PREGU, UAMICAO #### [address] [address] Lymphocyte, Absolute 3.3 10 3/mcL Normal 0.9-4.3 [facility] Comment on above: Performed By: #### U A, PREGU, UAMICAO #### [address] [address] Lymphocytes/100 WBC (Bld) 33.3 % Normal 20.0-40.0 [facility] Comment on above: Performed By: #### U A, PREGU, UAMICAO #### [address] [address] Monocyte, Absolute 0.8 10 3/mcL Normal 0.1-1.4 [facility] Comment on above: Performed By: #### U A, PREGU, UAMICAO #### [address] [address] Monocytes/100 WBC (Bld) 7.8 % Normal 2.0-13.0 [facility] Comment on above: Performed By: #### BAKARI Josue UAMICAO #### [address] [address] Neutrophils/100 WBC (Bld) 57.2 % Normal 50.0-75.0 [facility] Comment on above: Performed By: #### BAKARI Josue UAMICAO #### [address] [address] .GFRon 06-12-2024 GFR 81 ml/min/1.73sqm Normal [facility] Comment on above: Result Comment: GFR [...] 15 mL/min/1.73 square meters Performed By: #### BAKARI Josue UAMICPEDRITO #### [address] [address] GFR Non- 67 ml/min/1.73sqm Normal [facility] Comment on above: Result Comment: GFR [...] mL/min/1.73 square meters Performed By: #### U A, PREGU, UAMICAO #### [place] [address] .MDWon 06-12-2024 Monocyte Distribution Width 17.82 Normal 0.00-20.00 [facility] Comment on above: Result Comment: For ED adult patients suspected of sepsis, MDW<=20.0 does not rule out sepsis or risk of sepsis Performed By: #### U A, PREGU, UAMICAO #### [place] [address] .NEUABSon 06-12-2024 Neutrophil, Absolute 5.7 10 3/mcL Normal 2.3-8.1 [facility] Comment on above: Performed By: #### U A, PREGU, UAMICAO #### [place] [address] .Urinalysis Microscopic (AO) on 06-12-2024 UA Bacteria 1+ /hpf Abnormal [facility] Comment on above: Performed By: #### U A, PREGU, UAMICAO #### [place] [address] UA RBC 5-10 Abnormal None Seen [facility] Comment on above: Performed By: #### U A, PREGU, UAMICAO #### [place] [address] UA Squam Epithelial 0-5 Abnormal None Seen [facility] Comment on above: Performed By: #### U A, PREGU, UAMICAO #### [place] [address] UA WBC 0-5 Abnormal None Seen [facility] Comment on above: Performed By: #### U A, PREGU, UAMICAO #### [place] [address] BRIEF OP NOTon 06-12-2024 BRIEF OP NOT HNO ID: [id number] Author: CLEMENTE COATES MD Service: ? Author Type: Fellow Type: Brief Op Note Filed: 06/12/2024 12:26 Note Text: BRIEF OPERATIVE / PROCEDURE NOTE LOG ID: [id number] SURGERY/PROCEDURE DATE: 06/12/2024 INCISION/PROCEDURE START TIME: 12:00 PM INCISION CLOSE/PROCEDURE END TIME: 12:17 PM SURGEON(S)/PROCEDURALIST(S) AND SHEET FED PRINTER(S): Surgeons and Role: * Clemente Coates MD [...] June 12, 2024 TIME: 12:25 PM Normal [facility] Bacteria CSF Culton 06-12-20 24 Bacteria identified Cx Nom (CSF) CULTURE, CSF: No growth 5 days GRAM STAIN: No organisms seen No Polymorphonuclear Leukocytes No Mononuclear cells Gram stain performed on cytospun specimen. Normal [facility] Comment on above: Performed By: #### 6 06-4 ####[facility] LABCLIA [id number] [place] [address] [place] CBCon 06-12-2024 Erythrocyte distribution width (RBC) [Ratio] 14.7 % Normal 11.5-15.5 [facility] Comment on above: Performed By: #### U AJONAU UAMICAO #### [address] [address] Hematocrit (Bld) [Volume fraction] 34.4 % Normal 34.0-46.0 [facility] Comment on above: Performed By: #### U AJONAU UAMICAO #### [address] [place], [place] [address] Hgb 11.4 G/dL Low 12.0-16.0 [facility] Comment on above: Performed By: #### U A PREGU, UAMICAO #### [address] [address] MCH (RBC) [Entitic mass] 24.8 pg Low 27.0-33.0 [facility] Comment on above: Performed By: #### U A, PREGU, [place]AM[place]O #### [place] [address] MCHC 33.0 G/dL Normal 32.0-36.0 [facility] Comment on above: Performed By: #### U A, PREGU, UAMICAO #### [id number] MCV (RBC) [Entitic vol] 75.2 fL Low 80.0-99.0 [facility] Comment on above: Performed By: #### U A PREGU, UAMICAO #### [place] [address] Platelet 315 10 3/mcL Normal 150-450 [facility] Comment on above: Performed By: #### U Gris PREGU, UAMICAO #### [place] [address] Platelet mean volume (Bld) [Entitic vol] 7.3 fL Normal 6.6-10.5 [facility] Comment on above: Performed By: #### U A PREGU, UAMICAO #### [place] [address] RBC 4.58 10 6/mcL Normal 4.10-5.30 [facility] Comment on above: Performed By: #### U A PREGU, UAMICAO #### [place] [id number] WBC 10.0 10 3/mcL Normal 4.5-10.8 [facility] Comment on above: Performed By: #### U A PREGU, UAMICAO #### [place] [id number] CMPon 06-12-2024 Albumin Level 3.1 G/dL Low 3.5-5.0 [facility] Comment on above: Performed By: #### BAKARI Josue UAJENNI #### [place] [address] Albumin/Globulin [Mass ratio] 0.9 {ratio} Low 1.1-2.5 [facility] Comment on above: Performed By: #### BAKARI Josue UAMICPEDRITO #### [place] [address] ALP [Catalytic activity/Vol] 114 U/L Normal 40-135 [facility] Comment on above: Performed By: #### BAKARI Josue UAJENNI #### [place] [address] ALT [Catalytic activity/Vol] 25 U/L Normal 14-59 [facility] Comment on above: Performed By: #### BAKARI Josue UAMICAO #### [place] [address] AST [Catalytic activity/Vol] 16 U/L Normal 10-40 [facility] Comment on above: Performed By: #### BAKARI Josue UAJENNI #### [place] [address] Bili Total 0.2 mg/dL Normal 0.2-1.0 [facility] Comment on above: Result Comment: Use of this assay is not recommended for patients undergoing treatment with eltrombopag due to the potential for falsely elevated results. Performed By: #### BAKARI Josue UAMICAO #### [place] [address] BUN/Creatinine Ratio 14 ratio Normal 7-27 [facility] Comment on above: Performed By: #### BAKARI Josue UAMICPEDRITO #### [place] [address] Calcium [Mass/Vol] 8.3 mg/dL Low 8.4-10.2 [facility] Comment on above: Performed By: #### U A, PREGU, UAMICAO #### [address] [address] Chloride [Moles/Vol] 106 mmol/L Normal 98-107 [facility] Comment on above: Performed By: #### U A PREGU, UAMICAO #### [address] [address] CO2 [Moles/Vol] 28 mmol/L Normal 22-29 [facility] Comment on above: Performed By: #### U A PREGU, UAMICAO #### [address] [address] Creatinine [Mass/Vol] 0.95 mg/dL Normal 0.55-1.02 [facility] Comment on above: Result Comment: Test ing performed on Siemens Dimension EXL analyzer using a modified kinetic Gino technique. Performed By: #### U A PREGU, UAMICAO #### [place] [address] Electrolyte Balance 9.0 mEq/L Normal 4.0-15.0 [facility] Comment on above: Performed By: #### U A PREGU, UAMICAO #### [place] [address] Globulin 3.6 G/dL Normal [facility] Comment on above: Performed By: #### U A PREGU, UAMICAO #### [place] [address] Glucose [Mass/Vol] 115 mg/dL High 70-105 [facility] Comment on above: Performed By: #### U A PREGU, UAMICAO #### [address] [address] Potassium [Moles/Vol] 3.5 mmol/L Normal 3.5-5.1 [facility] Comment on above: Performed By: #### U A, PREGU, UAMICAO #### [place] [address] Sodium [Moles/Vol] 143 mmol/L Normal 136-145 [facility] Comment on above: Performed By: #### U A PREGU, UAMICAO #### [place] [address] [place], [place] [address] Total Protein 6.7 G/dL Normal 6.4-8.2 [facility] Comment on above: Performed By: #### U A PREGU, UAMICAO #### [place] [address] [place], [place] [address] Urea nitrogen [Mass/Vol] 13 mg/dL Normal 7-18 [facility] Comment on above: Performed By: #### U A PREGU, UAMICAO #### [address] [address] CSF MANUAL DIFFon 06-12-2024 DIF TTL, CSF 51 cells counted Normal [facility] Comment on above: Order Comment: Speci men Type: CEREBROSPINAL FLUID SPECIMENOrdering Facility: [facility] Address: [address] [place] [address] Result Comment: Less than 100 cells were counted due to low cellularity of the specimen; therefore, the total differential percentage may be subject to rounding error. Performed By: #### 3 4563-7, [id number] ####[facility] LABCLIA [id number] [place] [address] [place] LYMPH%, CSF 73 % Normal 50-90 [facility] Comment on above: Order Comment: Speci men Type: CEREBROSPINAL FLUID SPECIMENOrdering Facility: [facility] Address: [address] [place] [address] Performed By: #### 3 4563-7, [id number] ####[facility] LABCLIA [id number] [place] [address] [place] MONO%, CSF 16 % Normal 10-50 [facility] Comment on above: Order Comment: Speci men Type: CEREBROSPINAL FLUID SPECIMENOrdering Facility: [facility] Address: [address] [place] [address] Performed By: #### 3 4563-7, [id number] ####[facility] LABCLIA [id number] [place] [id number] [place] NEUT%, CSF 2 % Normal 0-3 [facility] Comment on above: Order Comment: Speci men Type: CEREBROSPINAL FLUID SPECIMENOrdering Facility: [facility] Address: [address] [place] [address] Performed By: #### 3 4563-7, [id number] ####[facility] LABCLIA [id number] [place] [address] [place] REAC LYMPH %, CSF 10 % Normal [facility] Comment on above: Order Comment: Speci men Type: CEREBROSPINAL FLUID SPECIMENOrdering Facility: [facility] Address: [address] [place] [address] Performed By: #### 3 4563-7, [id number] ####[facility] LABCLIA [id number] [place] [address] [place] [address] ABD/PELVIS W/ IV CONTRAST ONLYon 06-12-2024 CT ABD/PELVIS W/ IV CONTRAST ONLY ORIGINAL EXAMINATION: CT OF THE ABDOMEN AND PELVIS WITH RBJWRQUP61/3/2024 10:18 pm TECHNIQUE: CT of the abdomen [...] 06/12/2024 11:28:39 PM Ordering Provider: OMEGA HARRIS [facility] Cell count panel (CSF)Ordere d By: Iris Bah on 06-12-2024 Clarity (CSF) Clear Clear [facility] Clarity (Unsp spec) Not Indicated Clear [facility] Color (CSF) Colorless Colorless [facility] Color (Spun CSF) Not Indicated Colorless [facility] CSF Tube Number Sterile Container [facility] Interpretation and review of laboratory results Abnormal [facility] RBC Manual cnt (CSF) [#/Vol] 12 High [facility] WBC Manual cnt (CSF) [#/Vol] 0 [facility] Cell count panel (CSF)on Clarity (CSF) Clear Normal Clear [facility] Comment on above: Order Comment: Speci men Type: CEREBROSPINAL FLUID SPECIMENOrdering Facility: [facility] Address: [address] [place] [address] Performed By: #### 3 4563-7, [id number] ####[facility] LABCLIA [id number] [place] [address] [place] Clarity (Unsp spec) Not Indicated Normal Clear [facility] Comment on above: Order Comment: Speci men Type: CEREBROSPINAL FLUID SPECIMENOrdering Facility: [facility] Address: [address] [place] [address] Performed By: #### 3 4563-7, [id number] ####[facility] LABCLIA [id number] [address] [place] Color (CSF) Colorless Normal Colorless [facility] Comment on above: Order Comment: Speci men Type: CEREBROSPINAL FLUID SPECIMENOrdering Facility: [facility] Address: [address] [place] [address] Performed By: #### 3 4563-7, [id number] ####[facility] LABCLIA [id number] [place] [address] [place] Color (Spun CSF) Not Indicated Normal Colorless [facility] Comment on above: Order Comment: Speci men Type: CEREBROSPINAL FLUID SPECIMENOrdering Facility: [facility] Address: [address] [place] [address] Performed By: #### 3 4563-7, [id number] ####[facility] LABCLIA [id number] [place] [address] [place] CSF TUBE NUMBER Sterile Container Normal Cl [facility] Comment on above: Order Comment: Speci men Type: CEREBROSPINAL FLUID SPECIMENOrdering Facility: [facility] Address: [address] [place] [address] Performed By: #### 3 4563-7, [id number] ####[facility] LABCLIA [id number] [place] [address] [place] RBC Manual cnt (CSF) [#/Vol] 12 cells/uL High 0-5 [facility] Comment on above: Order Comment: Speci men Type: CEREBROSPINAL FLUID SPECIMENOrdering Facility: [facility] Address: [address] [place] [address] Performed By: #### 3 4563-7, [id number] ####[facility] LABCLIA [id number] [place] [address] [place] WBC Manual cnt (CSF) [#/Vol] 0 cells/uL Normal 0-5 [facility] Comment on above: Order Comment: Speci men Type: CEREBROSPINAL FLUID SPECIMENOrdering Facility: [facility] Address: [address] [place] [address] Performed By: #### 3 4563-7, [id number] ####[facility] LABCLIA [id number] [facility] [place] [address] [place] GLUCOSE CSFon 06-12-2024 Glucose (CSF) [Mass/Vol] 63 mg/dL 40 - 70 mg/dL [facility] Comment on above: Lumbar CSF glucose v alues of healthy patients are approximately 60% of the plasma values and must always be compared with a concurrently measured plasma value for adequate clinical interpretation. References: 1. Glucose HK (GLUC3) [package insert V 12.0 Ivorian]. [facility], [place], [place]. January 2016. 2. Jo Ann Scott., He, H. (2015). Chapter 7: Glucose and Lactate. Marisol. Chreyl et al.(eds.), Cerebrospinal Fluid in Clinical Neurology. [place]: [employer]. Glucose CSF-mCncon Glucose (CSF) [Mass/Vol] 63 mg/dL Normal 40-70 [facility] Comment on above: Order Comment: Speci men Type: CEREBROSPINAL FLUID SPECIMEN [facility] Address: [address] [place] [address] Result Comment: Lumb ar CSF glucose values of healthy patients are approximately 60% of the plasma values and must always be compared with a concurrently measured plasma value for adequate clinical interpretation. References: 1. Glucose HK (GLUC3) [package insert V 12.0 Ivorian]. [facility], [place], [place]. January 2016. 2. Bing Scott, He, H. (2015). Chapter 7: Glucose and Lactate. Marisol. Cheryl et al.(eds.), Cerebrospinal Fluid in Clinical Neurology. [place]: [employer]. Performed By: #### 2 342-4, 2880-3 #### [facility] CLIA [id number] [address] [place], [place] [address] [place] [address] [place] IR LP FOR [...] for approximately 60 minutes. Immediate Complications: None ([id number]). Procedure End Time and Sign Out Time: 1217 IMPRESSION: TECHNICALLY SUCCESSFUL DIAGNOSTIC AND THERAPEUTIC LUMBAR PUNCTURE. Attending Physician: Dr. Selene Chang. Elementary Math Tutor: Dr. Jose Manuel Coates The procedure was performed by the: the chemist assistant, and the attending radiologist was not present but immediately available to furnish services during the entire procedure. Print Binding Worker: LAITH Transcribe Date/Time: Jun 12 2024 1:06P Dictated by : CLEMENTE COATES MD This examination was interpreted and the report reviewed and electronically signed by: SHAHNAZ CHANG MD on Jun 12 2024 1:22PM EST Normal [facility] LABORATORYOrdered By: SYSTEM SYSTEM on 06-12-2024 [...] 06-12-2024 Lipase Level 35 U/L Normal 16-77 [facility] Comment on above: Performed By: #### U A, PREGU, UAMICAO #### [address] [address] NURSING PROGon 06-12-2024 NURSING PROG HNO ID: [id number] Author: LIBBY CARRERO RN Service: Nursing Author Type: Registered Nurse Type: Nursing Progress Note Filed: 06/13/2024 08:56 Note Text: Attempted post procedure phone call. Left VM for patient to return call to [phone] with any questions/concerns. Libby Carrero RN Normal [facility] No Panel Informationon 06-12 Interpretation and review of laboratory results Normal [facility] PREGUon 06-12-2024 HCG ( test) Ql (U) Negative Normal [facility] Comment on above: Performed By: #### U A, PREGU, UAMICAO #### [address] [address] test (u) int Not detected Invalid Interpretation Code [facility] Comment on above: Performed By: #### U A, PREGU, UAMICAO #### [address] [place] [address] PROTEIN CSFon 06-12-2024 Protein (CSF) [Mass/Vol] 23 mg/dL 15 - 45 mg/dL [facility] PT EDon 06-12-2024 PT ED HNO ID: [id number] Author: BREN HENRY RN Service: Nursing Author Type: Registered Nurse [...] Signed By: Bren Henry RN In Department: HOSP MAIN FB36 Normal [facility] Prot CSF-mCncon 06-12-2024 Protein (CSF) [Mass/Vol] 23 mg/dL Normal 15-45 [facility] Comment on above: Order Comment: Speci men Type: CEREBROSPINAL FLUID SPECIMEN [facility] Address: [address] [place] [address] Performed By: #### 2 342-4, 2880-3 #### [facility] CLIA [id number] [address] [place] [address] [place] UAon 06-12-2024 Color (U) Yellow Normal [facility] Comment on above: Performed By: #### U A PREGU UAMICAO #### [address] [address] Glucose (U) [Mass/Vol] Negative Normal Negative [facility] Comment on above: Performed By: #### U A, PREGU, UAMICAO #### [address] [address] Ketones Ql (U) Negative Normal Negative [facility] Comment on above: Performed By: #### U A, PREGU, UAMICAO #### [place] [address] UA Appear Slightly Cloudy Abnormal Clear [facility] Comment on above: Performed By: #### U A, PREGU, UAMICAO #### [place] [address] UA Blood Moderate Abnormal Negative [facility] Comment on above: Performed By: #### U A, PREGU, UAMICAO #### [place] [address] UA Leuk Est Negative Normal Negative [facility] Comment on above: Performed By: #### U A, PREGU, UAMICAO #### [place] [address] UA Nitrite Negative Normal Negative [facility] Comment on above: Performed By: #### U A, PREGU, UAMICAO #### [place] [address] UA pH 6.5 Normal 5.0 - 8.0 [facility] Comment on above: Performed By: #### U A, PREGU, UAMICAO #### [place] [address] UA Protein Negative Normal Negative [facility] Comment on above: Performed By: #### U A, PREGU, UAMICAO #### [place] [address] UA Spec Grav >=1.030 Abnormal 1.015-1.025 [facility] Comment on above: Performed By: #### U A, PREGU, UAMICAO #### [place] [address] UA Specimen Type Void Normal [facility] Comment on above: Performed By: #### U A, PREGU, UAMICAO #### [place] [address] UA Urobilinogen 0.2 E.U./dL Normal 0.2-1.0 [facility] Comment on above: Performed By: #### U A PREGU UAMICAO #### [facility] [address] [place], [place] [address] Urobilinogen (U) [Mass/Vol] Negative Normal Negative [facility] Comment on above: Performed By: #### U A, PREGU, UAMICAO #### [facility] [address] [place], [place] [address] CNPNon 05-21-2024 CNPN Telephone (NSCAMN) OMAR SERRANO ([id number]) 1985 F Date Time Provider Department 05/21/24 [facility] During your visit today, we recorded the following information about you: Eulalia Justice PA-C 05/21/2024 2:17 PM Signed ASAPwith [...] Encounter Status:Closed by EULALIA JUSTICE on 05/21/24 [facility] Telephone (NSEN) ZACHOMAR Alisia ([id number]) 1985 F Date Time Provider Department 05/21/24 [facility] During your visit today, we recorded the [...] the past year as all done at [facility]. 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 Unremarkable remaining intracranial MRV. Incidental partially empty sella. Print Binding Worker: [facility] Transcribe Date/Time: May 15 2024 5:10P Dictated by : AYLEEN SHAIKH MD This examination was interpreted and the report reviewed and electronically signed by: AYLEEN SHAIKH MD on May 15 2024 5:16PM [facility] DIVISION OF RADIOLOGY * * *Final [...] or stenosis - Headache, papilledema TECHNIQUE: 2-D/3-D [id number] intracranial MRV. 3-D post-processed images were created, [...] sagittal T1 images. DIVISION OF RADIOLOGY Provider, [facility] - 05/15/2024 * * *Final Report* [...] or stenosis - Headache, papilledema TECHNIQUE: 2-D/3-D [id number] intracranial MRV. 3-D post-processed images were created, [...] remaining intracranial MRV. Incidental partially empty sella. Print Binding Worker: PSCB Transcribe Date/Time: May 15 2024 5:10P Dictated by : AYLEEN SHAIKH MD This examination was interpreted and the report reviewed and electronically signed by: AYLEEN SHAIKH MD on May 15 2024 5:16PM EST [facility] Radiology Study observation (narrative) [facility] MRA Head veins WO and W cont rast IVOrdered By: Ccf Provider on 05-15-2024 [facility] MRV BRAIN WO/W IVCONon 05-15 MRV BRAIN [...] or stenosis - Headache, papilledema TECHNIQUE: 2-D/3-D [id number] intracranial MRV. 3-D post-processed images were created, [...] remaining intracranial MRV. Incidental partially empty sella. Print Binding Worker: LAITH Transcribe Date/Time: May 15 2024 5:10P Dictated by : AYLEEN SHAIKH MD This examination was interpreted and the report reviewed and electronically signed by: AYLEEN SHAIKH MD on May 15 2024 5:16PM EST [id number] Normal [facility] CNPNon 05-05-2024 CNPN Telephone (MRIQ) OMAR SERRANO ([id number]) 1985 F Date Time Provider Department 05/05/24 [...] that day. Discussed needing to have a regional dedicated truck driver present. No other questions or concerns [...] intracranial hypertension [G93.2] 04/26/2023 Encounter Status:Closed by WLIL VASQUEZ on 05/05/24 Normal [facility] Emergency Department Summary on 04-28-2024 Emergency Department Summary [facility] Medical Records Department [address] [place] [address] Emergency Department Summary 04/28/24 MR#: [id number] Acct: [id number] Name: OMAR GOMEZ Rep #: [id number] : 1985 38 From: Williams Parekh DO [...] did not have an x-ray machine yesterday. [facility] Medical History Left ureteral calculus Bruising [...] status grossly (more content not included)... Normal [facility] CNOVon 04-27-2024 CNOV Office Visit (UCWSTR ) OMAR SERRANO ([id number]) 1985 F Date Time Provider Department 04/27/24 3:00 PM ADWOA MOSLEY [facility] During your visit today, we recorded the following information about you: Temperature Pulse Respiration Blood pressure 98.1 degrees 70/minute 18/minute 132/90 Weight 104.8 kg Adwoa Mosley APRN.CNP 04/27/2024 3:19 PM Signed Subjective HPI HPI Omar Crump Zach is a 38 year old female who [...] REPORT Comment: 4 teeth pulled No date: [facility] DELIVERY SCHEDULING ORDER ALLERGIES Tape [Adhesive Tape [...] WRIST GENERAL 3V PA/LAT/OBL LEFT Adwoa Mosley APRN.[employer] MANAGER Allergies As of Date: 04/27/2024 Noted Allergy [...] [S69.92XA] Order(s):XR WRIST GENERAL 3V PA/LAT/OBL LEFT [[id number]] Order #: [id number] Prescriptions as of 04/27/2024 - LORazepam (ATIVAN) [...] guidelines link. (more content not included)... Normal [facility] CNOVon 04-17-2024 CNOV Office Visit (NSCAMN ) OMAR SERRANO ([id number]) 1985 F Date Time Provider Department 04/17/24 9:30 AM EULALIA JUSTICE [facility] During your visit today, we recorded the following information about you: Temperature Pulse Respiration Blood pressure 98 degrees 65/minute 18/minute 140/95 Weight Height Last Period 106.3 kg 1.67 m 04/10/24 Eulalia Justice PA-C 04/17/2024 10:28 AM Signed This note was created using Nirvahariter. Subjective Omar Serrano is a 38 year [...] 1000mg bid. She was seen by our [facility] who noted b/l disc edema, [...] which included preparing to see the patient, uwlw-te-hlzh patient care, completing clinical documentation, obtaining and/or [...] No Does patient want to see a Business Intelligence Director? No (yes to any of above refer [...] Nora Gan MA Referring Provider: CRESENCIO BOYLE [[id number]] Allergies As of Date: 04/17/2024 Noted Allergy Reaction TAPE (ADHESIVE TAPE (ROSINS)) 07/18/2013 2 - Rash Comments: EKG tape pleitez skin- other tape gives patient rashes Date Reviewed: 04/17/2024 Reviewed by: Noar Gan MA - Fully Assessed Reason for Visit: New Patient [172] Primary Visit Diagnosis:IIH (idiopathic intracranial hypertension) [G93.2] Order(s):ENDOCRINE MEDICAL WEIGHT MANAGEMENT [[id number]] Order #: [id number]: 1 FUTURE IR LP FOR DRAINAGE (PRESSURE) [[id number]] Order #: [id number] [] diazePAM (VALIUM) 5 mg tabletTake 1-2 tablets by mouth one time only for 1 dose.Di (more content not included)... Normal [facility] Basic metabolic 2000 panelon 03-26-2024 Anion gap [Moles/Vol] 12 mmol/L Normal 8-15 [facility] Comment on above: Order Comment: Speclydia griffin Type: BLOOD SPECIMEN [facility] Address: [address] [place] [address] Performed By: #### A SPCL, ASPCLP #### [facility] CLIA [id number] [address] [place] [address] [place] Calcium [Mass/Vol] 9.1 mg/dL Normal 8.5-10.2 [facility] Comment on above: Order Comment: Evaristo griffin Type: BLOOD SPECIMEN [facility] Address: [address] [place] [address] Performed By: #### A SPCL, ASPCLP #### [facility] CLIA [id number] [address] [place] [address] [place] Chloride [Moles/Vol] 106 mmol/L Normal 98-107 [facility] Comment on above: Order Comment: Evaristo griffin Type: BLOOD SPECIMEN [facility] Address: [address] [place] [address] Performed By: #### A SPCL, ASPCLP #### [facility] CLIA [id number] [address] [place] [address] [place] CO2 [Moles/Vol] 24 mmol/L Normal 22-30 [facility] Comment on above: Order Comment: Speci men Type: BLOOD SPECIMEN [facility] Address: [address] [place] [address] Performed By: #### A SPCL, ASPCLP #### [facility] CLIA [id number] [address] [place] [address] [place] Creatinine [Mass/Vol] 0.81 mg/dL Normal 0.58-0.96 [facility] Comment on above: Order Comment: Carolinai men Type: BLOOD SPECIMEN Ordering Facility: [facility] Address: [address] [place] [address] Performed By: #### A SPCL, ASPCLP #### [facility] [place] [id number] [address] [place] [address] [place] Creatinine and Glomerular filtration rate.predicted panel (S/P/Bld) 97 mL/min/1.73m??? Normal >=60 [facility] Comment on above: Order Comment: Speci men Type: BLOOD SPECIMEN Ordering Facility: [facility] Address: [address] [place] [address] Result Comment: Bhavya mated Glomerular Filtration Rate [...] accurately reflect actual GFR. Performed By: #### A SPCL, ASPCLP #### [facility] CLIA [id number] [address] [place] [address] [place] Glucose [Mass/Vol] 86 mg/dL Normal 74-99 [facility] Comment on above: Order Comment: Carolinai men Type: BLOOD SPECIMEN Ordering Facility: [facility] Address: [address] [id number] Result Comment: The [place] Diabetes Association (ADA) provides guidance for cutoff [...] Standards of Medical Care in Diabetes 2016, [place] [employer]. Diabetes Care. 2016.39(Suppl 1). Performed By: #### A SPCL, ASPCLP #### [facility] CLIA [id number] [address] [place] [address] [place] Potassium [Moles/Vol] 4.1 mmol/L Normal 3.7-5.1 [facility] Comment on above: Order Comment: Speci men Type: BLOOD SPECIMEN Ordering Facility: [facility] Address: [address] [place] [address] Performed By: #### A SPCL, ASPCLP #### [facility] CLIA [id number] [address] [place] [address] [place] Sodium [Moles/Vol] 142 mmol/L Normal 136-144 [facility] Comment on above: Order Comment: Speci men Type: BLOOD SPECIMEN Ordering Facility: [facility] Address: [address] [place] [address] Performed By: #### A SPCL, ASPCLP #### [facility] CLIA [id number] [address] [place] [address] [place] Urea nitrogen [Mass/Vol] 13 mg/dL Normal 7-21 [facility] Comment on above: Order Comment: Speci men Type: BLOOD SPECIMEN Ordering Facility: [facility] Address: [address] [place] [address] Performed By: #### A SPCL, ASPCLP #### [facility] CLIA [id number] [address] [place] [address] [place] [facility] OPTIC DISC PHOTO OU (BOTH EY ES)on 03-26-2024 [facility] Radiology Study observation (narrative) [facility] VISUAL FIELD 24-2 OU (BOTH E YES)on 03-26-2024 [facility] Radiology Study observation (narrative) [facility] CNOVon 03-25-2024 CNOV Office Visit (UCWSTR ) OMAR SERRANO ([id number]) 1985 F Date Time Provider Department 03/25/24 1:45 PM ADWOA MOSLEY [facility] During your visit today, we recorded the following information about you: Temperature Pulse Respiration Blood pressure 98.5 degrees 94/minute 18/minute 139/94 Weight 106.7 kg Adwoa Mosley APRN.[employer] 03/25/2024 3:03 PM Signed Subjective HPI HPI Omar Crump Zach is a 38 year old female who [...] - OFLOXACIN 0.3 % EAR DROPS Adwoa Mosley, BEKAH.[employer] Allergies As of Date: 03/25/2024 Noted Allergy [...] 07/18/2013 Post (more content not included)... Normal [facility] FUNDUS PHOTOS OU (BOTH EYES) on 03-10-2024 [facility] Radiology Study observation (narrative) [facility] OCT OPTIC NERVE CIRRUS OU (B OTH EYES)on 03-10-2024 [facility] Radiology Study observation (narrative) [facility] VISUAL FIELD 30-2 OU (BOTH E YES)on 03-10-2024 [facility] Radiology Study observation (narrative) [facility] Basic metabolic 2000 panelon 02-20-2024 Anion gap [Moles/Vol] 13 mmol/L Normal 8-15 [facility] Comment on above: Order Comment: Speci men Type: BLOOD SPECIMEN Ordering Facility: [facility] Address: [address] [place] [address] Performed By: #### 5 7021-8 #### [facility] CLIA [id number] [address] [place] [address] [place] Calcium [Mass/Vol] 9.0 mg/dL Normal 8.5-10.2 [facility] Comment on above: Order Comment: Speci men Type: BLOOD SPECIMEN Ordering Facility: [facility] Address: [address] [place] [address] Performed By: #### 5 7021-8 #### [facility] CLIA [id number] [address] [place] [address] [place] Chloride [Moles/Vol] 113 mmol/L High 98-107 [facility] Comment on above: Order Comment: Speci men Type: BLOOD SPECIMEN Ordering Facility: [facility] Address: [address] [place] [address] Performed By: #### 5 7021-8 #### [facility] CLIA [id number] [address] [place] [address] [place] CO2 [Moles/Vol] 17 mmol/L Low 22-30 [facility] Comment on above: Order Comment: Speci men Type: BLOOD SPECIMEN Ordering Facility: [facility] Address: [address] [place] [address] Performed By: #### 5 7021-8 #### [facility] CLIA [id number] [address] [place] [address] [place] Creatinine [Mass/Vol] 0.80 mg/dL Normal 0.58-0.96 [facility] Comment on above: Order Comment: Speci men Type: BLOOD SPECIMEN Ordering Facility: [facility] Address: [address] [place] [address] Performed By: #### 5 7021-8 #### [facility] CLIA [id number] [address] [place] [address] [place] Creatinine and Glomerular filtration rate.predicted panel (S/P/Bld) 98 mL/min/1.73m??? Normal >=60 [facility] Comment on above: Order Comment: Evaristo griffin Type: BLOOD SPECIMEN Ordering Facility: [facility] Address: [address] [place] [address] Result Comment: Bhavya mated Glomerular Filtration Rate [...] GFR. Performed By: #### 5 7021-8 #### [facility] CLIA [id number] [address] [place] [address] [place] Glucose [Mass/Vol] 120 mg/dL High 74-99 [facility] Comment on above: Order Comment: Evaristo griffin Type: BLOOD SPECIMEN Ordering Facility: [facility] Address: [address] [place] [address] Result Comment: The [place] Diabetes Association (ADA) provides guidance for cutoff [...] Standards of Medical Care in Diabetes 2016, [place] [employer]. Diabetes Care. 2016.39(Suppl 1). Performed By: #### 5 7021-8 #### [facility] CLIA [id number] [address] [place] [address] [place] Potassium [Moles/Vol] 3.5 mmol/L Low 3.7-5.1 [facility] Comment on above: Order Comment: Speci men Type: BLOOD SPECIMEN Ordering Facility: [facility] Address: [address] [place] [address] Performed By: #### 5 7021-8 #### [facility] CLIA [id number] [address] [place] [address] [place] Sodium [Moles/Vol] 143 mmol/L Normal 136-144 [facility] Comment on above: Order Comment: Speci men Type: BLOOD SPECIMEN Ordering Facility: [facility] Address: [address] [place] [address] Performed By: #### 5 7021-8 #### [facility] CLIA [id number] [address] [place] [address] [place] Urea nitrogen [Mass/Vol] 15 mg/dL Normal 7-21 [facility] Comment on above: Order Comment: Speci men Type: BLOOD SPECIMEN Ordering Facility: [facility] Address: [address] [place] [address] Performed By: #### 5 7021-8 #### [facility] CLIA [id number] [address] [place] [address] [place] CBC W Auto Differential pane l (Bld)on 02-20-2024 Basophils (Bld) [#/Vol] 0.09 10*3/uL Normal <0.11 [facility] Comment on above: Order Comment: Speci men Type: BLOOD SPECIMEN Ordering Facility: [facility] Address: [address] [place] [address] Performed By: #### 5 7021-8 #### [facility] CLIA [id number] [address] [place] [address] [place] Basophils/100 WBC (Bld) 0.9 % Normal [facility] Comment on above: Order Comment: Speci men Type: BLOOD SPECIMEN Ordering Facility: [facility] Address: [address] [place] [address] Performed By: #### 5 7021-8 #### [facility] CLIA [id number] [address] [place] [address] [place] Differential cell count method Nom (Bld) Auto Normal [facility] Comment on above: Order Comment: Speci men Type: BLOOD SPECIMEN Ordering Facility: [facility] Address: [address] [place] [address] Performed By: #### 5 7021-8 #### [facility] CLIA [id number] [address] [place] [address] [place] Eosinophils (Bld) [#/Vol] 0.14 10*3/uL Normal <0.46 [facility] Comment on above: Order Comment: Speci men Type: BLOOD SPECIMEN Ordering Facility: [facility] Address: [address] [place] [address] Performed By: #### 5 7021-8 #### [facility] CLIA [id number] [address] [place] [address] [place] Eosinophils/100 WBC (Bld) 1.3 % Normal [facility] Comment on above: Order Comment: Speci men Type: BLOOD SPECIMEN Ordering Facility: [facility] Address: [address] [place] [address] Performed By: #### 5 7021-8 #### [facility] CLIA [id number] [address] [place] [address] [place] Erythrocyte distribution width (RBC) [Ratio] 14.6 % Normal 11.5-15.0 [facility] Comment on above: Order Comment: Speci men Type: BLOOD SPECIMEN Ordering Facility: [facility] Address: [address] [place] [address] Performed By: #### 5 7021-8 #### [facility] CLIA [id number] [address] [place] [address] [place] Hematocrit (Bld) [Volume fraction] 37.5 % Normal 36.0-46.0 [facility] Comment on above: Order Comment: Speci men Type: BLOOD SPECIMEN Ordering Facility: [facility] Address: [address] [place] [address] Performed By: #### 5 7021-8 #### [facility] CLIA [id number] [address] [place] [address] [place] Hemoglobin (Bld) [Mass/Vol] 12.5 g/dL Normal 11.5-15.5 [facility] Comment on above: Order Comment: Speci men Type: BLOOD SPECIMEN Ordering Facility: [facility] Address: [address] [place] [address] Performed By: #### 5 7021-8 #### [facility] CLIA [id number] [address] [place] [address] [place] Immature granulocytes (Bld) [#/Vol] 0.03 10*3/uL Normal <0.10 [facility] Comment on above: Order Comment: Speci men Type: BLOOD SPECIMEN Ordering Facility: [facility] Address: [address] [place] [address] Performed By: #### 5 7021-8 #### [facility] CLIA [id number] [address] [place] [address] [place] Immature granulocytes/100 WBC (Bld) 0.3 % Normal [facility] Comment on above: Order Comment: Speci men Type: BLOOD SPECIMEN Ordering Facility: [facility] Address: [address] [place] [address] Performed By: #### 5 7021-8 #### [facility] CLIA [id number] [address] [place] [address] [place] Lymphocytes (Bld) [#/Vol] 2.26 10*3/uL Normal 1.00-4.00 [facility] Comment on above: Order Comment: Speci men Type: BLOOD SPECIMEN Ordering Facility: [facility] Address: [address] [place] [address] Performed By: #### 5 7021-8 #### [facility] CLIA [id number] [address] [place] [address] [place] Lymphocytes/100 WBC (Bld) 21.6 % Normal [facility] Comment on above: Order Comment: Speci men Type: BLOOD SPECIMEN Ordering Facility: [facility] Address: [address] [place] [address] Performed By: #### 5 7021-8 #### [facility] CLIA [id number] [address] [place] [address] [place] MCH (RBC) [Entitic mass] 25.4 pg Low 26.0-34.0 [facility] Comment on above: Order Comment: Speci men Type: BLOOD SPECIMEN Ordering Facility: [facility] Address: [address] [place] [address] Performed By: #### 5 7021-8 #### [facility] CLIA [id number] [address] [place] [address] [place] MCHC (RBC) [Mass/Vol] 33.3 g/dL Normal 30.5-36.0 [facility] Comment on above: Order Comment: Speci men Type: BLOOD SPECIMEN Ordering Facility: [facility] Address: [address] [place] [address] Performed By: #### 5 7021-8 #### [facility] CLIA [id number] [address] [place] [address] [place] MCV (RBC) [Entitic vol] 76.1 fL Low 80.0-100.0 [facility] Comment on above: Order Comment: Speci men Type: BLOOD SPECIMEN Ordering Facility: [facility] Address: [address] [place] [address] Performed By: #### 5 7021-8 #### [facility] CLIA [id number] [address] [place] [address] [place] Monocytes (Bld) [#/Vol] 0.62 10*3/uL Normal <0.87 [facility] Comment on above: Order Comment: Speci men Type: BLOOD SPECIMEN Ordering Facility: [facility] Address: [address] [place] [address] Performed By: #### 5 7021-8 #### [facility] CLIA [id number] [address] [place] [address] [place] Monocytes/100 WBC (Bld) 5.9 % Normal [facility] Comment on above: Order Comment: Speci men Type: BLOOD SPECIMEN Ordering Facility: [facility] Address: [address] [place] [address] Performed By: #### 5 7021-8 #### [facility] CLIA [id number] [address] [place] [address] [place] Neutrophils (Bld) [#/Vol] 7.31 10*3/uL Normal 1.45-7.50 [facility] Comment on above: Order Comment: Speci men Type: BLOOD SPECIMEN Ordering Facility: [facility] Address: [address] [place] [address] Performed By: #### 5 7021-8 #### [facility] CLIA [id number] [address] [place] [address] [place] Neutrophils/100 WBC (Bld) 70.0 % Normal [facility] Comment on above: Order Comment: Speci men Type: BLOOD SPECIMEN Ordering Facility: [facility] Address: [address] [place] [address] Performed By: #### 5 7021-8 #### [facility] CLIA [id number] [address] [place] [address] [place] Nucleated RBC (Bld) [#/Vol] 10*3/uL Normal <0.01 [facility] Comment on above: Order Comment: Speci men Type: BLOOD SPECIMEN Ordering Facility: [facility] Address: [address] [place] [address] Performed By: #### 5 7021-8 #### [facility] CLIA [id number] [address] [place] [address] [place] Nucleated RBC/100 WBC (Bld) [Ratio] 0.0 /100 WBC Normal [facility] Comment on above: Order Comment: Speci men Type: BLOOD SPECIMEN Ordering Facility: [facility] Address: [address] [place] [address] Performed By: #### 5 7021-8 #### [facility] CLIA [id number] [address] [place] [address] [place] Platelet mean volume (Bld) [Entitic vol] 9.4 fL Normal 9.0-12.7 [facility] Comment on above: Order Comment: Speci men Type: BLOOD SPECIMEN Ordering Facility: [facility] Address: [address] [place] [address] Performed By: #### 5 7021-8 #### [facility] CLIA [id number] [address] [place] [address] [place] Platelets (Bld) [#/Vol] 299 10*3/uL Normal 150-400 [facility] Comment on above: Order Comment: Speci men Type: BLOOD SPECIMEN Ordering Facility: [facility] Address: [address] [place] [address] Performed By: #### 5 7021-8 #### [facility] CLIA [id number] [address] [place] [address] [place] RBC (Bld) [#/Vol] 4.93 10*6/uL Normal 3.90-5.20 [facility] Comment on above: Order Comment: Speci men Type: BLOOD SPECIMEN Ordering Facility: [facility] Address: [address] [place] [address] Performed By: #### 5 7021-8 #### [facility] CLIA [id number] [address] [place], [place] [address] [place] [id number] [place] WBC (Bld) [#/Vol] 10.45 10*3/uL Normal 3.70-11.00 [facility] Comment on above: Order Comment: Speci men Type: BLOOD SPECIMEN Ordering Facility: [facility] Address: [address] [place], [place] [address] Performed By: #### 5 7021-8 #### [facility] CLIA [id number] [address] [place], [place] [id number] [facility] CONSULTon 02-20-2024 CONSULT HNO ID: [id number] Author: FRANCES SINGH DO Service: Neurology General [...] her shoulder blades. Saw her opthomaologist in [place] for these symptoms about 3 days ago, [...] follows with local opthamoloigst Dr. Novak in [place]. In the ED CT Brain showed no [...] noted on (more content not included)... Normal [facility] CT BRAIN WO IVCONon 02-20-[address] BRAIN WO IVCON * * *Final Report* * * DATE OF EXAM: Feb 20 2024 1:15PM [facility] 0504 - CT BRAIN WO IVCON / [...] sella configuration. IMPRESSION: No acute intracranial abnormality. Print Binding Worker: PSCB Transcribe Date/Time: Feb 20 2024 1:17P Dictated by : MIKAEL JONES MD This examination was interpreted and the report reviewed and electronically signed by: WILLIAMS BANKS MD on Feb 20 2024 1:27PM EST [id number] Normal [facility] ED PROV NOTEon 02-20-2024 ED PROV NOTE HNO ID: [id number] Author: CRESENCIO BOYLE PA-C Service: Emergency Medicine Author Type: Physician Elementary Math Tutor Type: ED Provider Notes Filed: 02/20/2024 22:00 [...] (ANC) 7.31 Lymph% 21.6 Abs Lymph 2.26 [place]% 5.9 Abs [place] 0.62 Eosin% 1.3 Abs Eosin 0.14 Baso% [...] [NG] ED Course User Index [NG] Enrique Nñuez MD Clinical Impressions as of 02/20/242199 IIH (idiopathic intracranial hypertension) Pressure in head Hypokalemia Medical Decision Making SIGNATURE: Cresencio Boyle PA-C PATIENT NAME: Omar Serrano DATE: February 20, 2024 TIME: 3:06 PM PAGER/CONTACT #: CRESENCIO BOYLE 02/20/24 2200 Normal [facility] ED PROV NOTE HNO ID: [id number] Author: DI BOWENS MD Service: Emergency Medicine [...] been unable to get in with her neuro-senior grants officer due to the doctor retiring. Patient describes the headache as starting in the frontotemporal region and migrating to the occipital and cervical region. Patient states that there has been no change in her vision however states that she has not seen an senior grants officer since her previous flareup when she presented to the ED a year ago. Patient is also stating that she is having associated chest tightness that is nonreproducible and nonpositional and does not radiate. History provided by: Patient plate take out worker used: No PAST MEDICAL HISTORY Diagnosis Date [...] (ANC) 7.31 Lymph% 21.6 Abs Lymph 2.26 [place]% 5.9 Abs [place] 0.62 Eosin% 1.3 Abs Eosin 0.14 Baso% 0.9 Abs Baso 0.09 Immature Gran % 0.3 IMMATURE GRANS (ABS) 0.03 NRBC 0.0 Absolute nRBC <0.01 DTYPE Auto No anemia or leukocytosis noted on CBC [NG] 1230 Magnesium: 2.2 wnl [NG] 1230 Potassium(!): (more content not included)... Normal [facility] ED Triage Noteon 02-20-2024 ED Triage Note HNO ID: [id number] Author: MARII FIERRO MD Service: Emergency Medicine [...] URINE HCG(POC) SIGNATURE: Marii Fierro MD Normal [facility] Magnesium SerPl-mCncon 02-19 Magnesium [Mass/Vol] 2.2 mg/dL Normal 1.7-2.3 [facility] Comment on above: Order Comment: Speci men Type: BLOOD SPECIMEN Order[facility] Facility[facility] Address: [address] [place] [address] Performed By: #### 5 7021-8 #### [facility] CLIA [id number] [address] [place] [address] [place] .Auto Diffon 02-09-2024 Basophil, Absolute 0.1 10 3/mcL Normal 0.0-0.2 [facility] ([place]) Comment on above: Performed By: #### A DIFFMANUELITO ANEU, MDW #### [place] [address] [address] Basophils/100 WBC (Bld) 0.7 % Normal 0.0-2.5 [facility] ([place]) Comment on above: Performed By: #### A DIFFMANUELITO ANEU, MDW #### [address] [address] Eosinophil, Absolute 0.2 10 3/mcL Normal 0.0-0.4 [facility] ([place]) Comment on above: Performed By: #### A MANUELITO BOWLES ANEU, MDW #### Laura [address] [address] Eosinophils/100 WBC (Bld) 1.8 % Normal 0.0-7.0 [facility] ([place]) Comment on above: Performed By: #### A DIFFMANUELITO ANEU, MDW #### [address] [address] Lymphocyte, Absolute 3.1 10 3/mcL Normal 0.8-3.9 [facility] ([place]) Comment on above: Performed By: #### A DIFF, CBCDORENE MDW #### [address] [address] Lymphocytes/100 WBC (Bld) 29.7 % Normal 10.0-50.0 [facility] ([place]) Comment on above: Performed By: #### A DIFF, CBCDORENE MDW #### [address] [address] Monocyte, Absolute 0.8 10 3/mcL Normal 0.2-1.0 [facility] ([place]) Comment on above: Performed By: #### A DIFF, CBCDORENE MDW #### [address] [address] Monocytes/100 WBC (Bld) 7.7 % Normal 1.7-13.0 [facility] ([place]) Comment on above: Performed By: #### A DIFF, CBCDORENE MDW #### [address] [address] Neutrophils/100 WBC (Bld) 60.1 % Normal 37.0-80.0 [facility] ([place]) Comment on above: Performed By: #### A DIFF, CBCDORENE MDW #### [address] [address] .GFRon 02-09-2024 GFR Non- 186 ml/min/1.73sqm Normal [facility] ([place]) Comment on above: Result Comment: GFR Population [...] Performed By: #### G , CRE #### [address] [address] GFR 225 ml/min/1.73sqm Normal [facility] ([place]) Comment on above: Result Comment: GFR Population [...] Performed By: #### G , CRE #### [address] [address] .MDWon 02-09-2024 Monocyte Distribution Width 14.95 Normal 0.00-20.00 [facility] ([place]) Comment on above: Result Comment: For ED adult patients suspected of sepsis, MDW<=20.0 does not rule out sepsis or risk of sepsis Performed By: #### A DIFF, CBC, DORENE MDW #### [address] [address] .NEUABSon 02-09-2024 Neutrophil, Absolute 6.3 10 3/mcL High 2.9-6.2 [facility] ([place]) Comment on above: Performed By: #### A DIFF, CBC, ANEU, MDW #### [address] [address] .Urinalysis Microscopic (AO) on 02-09-2024 UA Amorphus 4+ /hpf Normal [facility] ([place]) Comment on above: Performed By: #### A DIFF, DORENE BILLINGS MDW #### [address] [address] UA RBC 0-5 Abnormal None Seen [facility] ([place]) Comment on above: Performed By: #### A DIFF, DORENE BILLINGS MDW #### [address] [address] UA Squam Epithelial 5-10 Abnormal None Seen [facility] ([place]) Comment on above: Performed By: #### A DIFF, DORENE BILLINGS MDW #### [address] [address] UA WBC 0-5 Abnormal None Seen [facility] ([place] Comment on above: Performed By: #### A DIFF, DORENE BILLINGS MDW #### [address] [address] CBCon 02-09-2024 Erythrocyte distribution width (RBC) [Ratio] 15.4 % High 11.5-14.5 [facility] ([place]) Comment on above: Performed By: #### A DIFFMANUELITO ANEU, MDW #### [address] [address] Hematocrit (Bld) [Volume fraction] 39.0 % Normal 37.0-47.0 [facility] ([place]) Comment on above: Performed By: #### A DIFFMANUELITO ANEU, MDW #### [address] [address] Hgb 12.6 G/dL Normal 12.0-16.0 [facility] ([place] Comment on above: Performed By: #### A DIFFMANUELITO ANEU, MDW #### [address] [address] MCH (RBC) [Entitic mass] 25.5 pg Low 27.0-31.2 [facility] ([place]) Comment on above: Performed By: #### A DIFF, CBCDORENE MDW #### [address] [address] MCHC 32.3 G/dL Low 33.0-37.0 [facility] ([place] Comment on above: Performed By: #### A MANUELITO BOWLES ANEU, MDW #### [address] [address] MCV (RBC) [Entitic vol] 78.9 fL Low 80.0-94.0 [facility] ([place]) Comment on above: Performed By: #### A MANUELITO BOWLES ANEU, MDW #### [address] [address] Platelet 324 10 3/mcL Normal 130-400 [facility] ([place]) Comment on above: Performed By: #### A MANUELITO BOWLES ANEU, MDW #### [address] [address] Platelet mean volume (Bld) [Entitic vol] 7.9 fL Normal 7.4-10.4 [facility] ([place]) Comment on above: Performed By: #### A MANUELITO BOWLES ANEU, MDW #### [address] [address] RBC 4.94 10 6/mcL Normal 4.20-5.40 [facility] ([place]) Comment on above: Performed By: #### A DIFFMANUELITO ANEU, MDW #### [address] [address] WBC 10.5 10 3/mcL Normal 4.6-10.8 [facility] ([place]) Comment on above: Performed By: #### A DIFFMANUELITO ANEU, MDW #### [address] [address] CREon 02-09-2024 Creatinine [Mass/Vol] 0.39 mg/dL Low 0.55-1.02 [facility] ([place]) Comment on above: Performed By: #### G FR, CRE #### [address] [address] [address] ABDOMEN/PELVIS W/O CONTRA STon 02-09-2024 CT [...] 02/09/2024 10:33:24 AM Ordering Provider: JOHN CORDOVA Pending [facility] To [facility] ([place]) LABORATORYOrdered By: SYSTEM SYSTEM on 02-09-2024 Creatinine [...] HCG ( test) Ql (U) Negative Normal [facility] ([place] Comment on above: Performed By: #### U AMICAO, UA, PREGU #### [address] [address] test (u) int Not detected Invalid Interpretation Code [facility] ([place] Comment on above: Performed By: #### U AMICAO, UA, PREGU #### [address] [address] UAon 02-09-2024 Color (U) Yellow Normal [facility] ([place] Comment on above: Performed By: #### A DIFF, CBCDORENE MDW #### [address] [address] Glucose (U) [Mass/Vol] Negative Normal Negative [facility] ([place] Comment on above: Performed By: #### A DIFF, DORENE BILLINGS MDW #### [address] [address] Ketones Ql (U) Negative Normal Negative [facility] ([place] Comment on above: Performed By: #### A DIFF, DORENE BILLINGS MDW #### [address] [address] UA Appear Turbid Abnormal Clear [facility] ([place] Comment on above: Performed By: #### A DIFF, DORENE BILLINGS MDW #### [address] [address] UA Blood Large Abnormal Negative [facility] ([place] Comment on above: Performed By: #### A DIFF, DORENE BILLINGS MDW #### [address] [address] UA Leuk Est Negative Normal Negative [facility] ([place]) Comment on above: Performed By: #### A DIFF, DORENE BILLINGS MDW #### [place] [address] [address] UA Nitrite Negative Normal Negative [facility] ([place] Comment on above: Performed By: #### A DIFF, DORENE BILLINGS MDW #### [address] [address] UA pH 7.0 Normal 5.0 - 8.0 [facility] ([place]) Comment on above: Performed By: #### A DIFF, CBCDORENE MDW #### [place] [address] [address] UA Protein Negative Normal Negative [facility] ([place] Comment on above: Performed By: #### A MANUELITO BOWLES ANEU, MDW #### [address] [address] UA Spec Grav 1.020 Normal 1.015-1.025 [facility] ([place]) Comment on above: Performed By: #### A MANUELITO BOWLES ANEU, MDW #### [address] [address] UA Specimen Type Void Normal [facility] ([place] Comment on above: Performed By: #### A MANUELITO BOWLES ANEU, MDW #### [address] [address] UA Urobilinogen 0.2 E.U./dL Normal 0.2-1.0 [facility] ([place] Comment on above: Performed By: #### A MANUELITO BOWLES ANEU, MDW #### [address] [address] Urobilinogen (U) [Mass/Vol] Negative Normal Negative [facility] ([place] Comment on above: Performed By: #### A MANUELITO BOWLES ANEU, MDW #### [address] [address] [address] ABDOMEN/PELVIS W/O CONTRA STon 01-28-2024 CT [...] 01/28/2024 10:50:14 PM Ordering Provider: ROC BURT P[facility] ([place] LABORATORYOrdered By: Prabhjot Nicole on 01-28-2024 Appearance [...] HCG ( test) Ql (U) Negative Normal [facility] ([place] Comment on above: Performed By: #### A MANUELITO BOWLES ANEU, MDW #### [place] [address] test (u) int Not detected Invalid Interpretation Code [facility] ([place] Comment on above: Performed By: #### A DIFFMANUELITO ANEU, MDW #### [place] [address] UAon 01-28-2024 Color (U) Yellow Normal [facility] ([place] Comment on above: Performed By: #### A MANUELITO BOWLES ANEU, MDW #### [place] [address] Glucose (U) [Mass/Vol] Negative Normal Negative [facility] ([place] Comment on above: Performed By: #### A MANUELITO BOWLES ANEU, MDW #### [place] [address] Ketones Ql (U) Negative Normal Negative [facility] ([place] Comment on above: Performed By: #### A MANUELITO BOWLES ANEU, MDW #### [place] [address] UA Appear Clear Normal Clear [facility] ([place] Comment on above: Performed By: #### A DIFFMANUELITO ANEU, MDW #### [place] [address] UA Blood Negative Normal Negative [facility] ([place] Comment on above: Performed By: #### A DIFFMANUELITO ANEU, MDW #### [place] [address] UA Leuk Est Negative Normal Negative [facility] ([place] Comment on above: Performed By: #### A DIFFMANUELITO ANEU, MDW #### [place] [address] UA Nitrite Negative Normal Negative [facility] ([place] Comment on above: Performed By: #### A DIFFMANUELITO ANEU, MDW #### [address] [address] UA pH 5.5 Normal 5.0 - 8.0 [facility] ([place]) Comment on above: Performed By: #### A MANUELITO BOWLES ANEU, MDW #### [address] [address] UA Protein Negative Normal Negative [facility] ([place] Comment on above: Performed By: #### A MANUELITO BOWLES ANEU, MDW #### [address] [address] UA Spec Grav >=1.030 Abnormal 1.015-1.025 [facility] ([place] Comment on above: Performed By: #### A MANUELITO BOWLES ANEU, MDW #### [address] [address] UA Specimen Type Clean Catch Normal [facility] ([place]) Comment on above: Performed By: #### A MANUELITO BOWLES ANEU, MDW #### [address] [address] UA Urobilinogen 0.2 E.U./dL Normal 0.2-1.0 [facility] ([place]) Comment on above: Performed By: #### A MANUELITO BOWLES ANEU, MDW #### [address] [address] Urobilinogen (U) [Mass/Vol] Negative Normal Negative [facility] ([place] Comment on above: Performed By: #### A MANUELITO BOWLES ANEU, MDW #### [address] [address] No Panel Informationon 12-12 IMPRESSION: NO ACUTE FRACTURE INVOLVING THE LEFT FOOT OR ANKLE Print Binding Worker: LAITH Transcribe Date/Time: Dec 13 2023 4:37P Dictated by : BARBARA QUEEN MD This examination was interpreted and the report reviewed and electronically signed by: BARBARA QUEEN MD on Dec 13 2023 4:40PM [facility] DIVISION OF RADIOLOGY Radiology Study observation (narrative) [facility] No Panel InformationOrdered By: Ccf Provider on 12-13-2023 [facility] XR Ankle - left AP and Later [...] mineralization and alignment. DIVISION OF RADIOLOGY Provider, [facility] - 12/13/2023 * * *Final Report* [...] FRACTURE INVOLVING THE LEFT FOOT OR ANKLE Print [facility] Transcribe Date/Time: Dec 13 2023 4:37P Dictated by : BARBARA QUEEN MD This examination was interpreted and the report reviewed and electronically signed by: BARBARA QUEEN MD on Dec 13 2023 4:40PM [facility] XR Foot - left AP and Latera l and obliqueon 04-04-2024 * * *Final Report* * * DATE [...] mineralization and alignment. DIVISION OF RADIOLOGY Provider, [facility] - 12/13/2023 * * *Final Report* [...] FRACTURE INVOLVING THE LEFT FOOT OR ANKLE Print Binding [facility] Transcribe Date/Time: Dec 13 2023 4:37P Dictated by : BARBARA QUEEN MD This examination was interpreted and the report reviewed and electronically signed by: BARBARA QUEEN MD on Dec 13 2023 4:40PM [facility] PELVIS NON-OB W/TRANSVAGI NALon 05-29-2023 US PELVIS [...] 05/29/2023 3:59:47 PM Ordering Provider: CALISTA BAUM Pending [facility] To [facility] ([place]) LABORATORYOrdered By: SYSTEM SYSTEM on 02-12-2023 HCG [...] No fungus isolated after 21 days. Normal [facility] Comment on above: Performed By: #### P T, CMP3M, HEMDF, MG3 #### [address] [place] [address] [address] [place], [place] Basic Metabolic Panelon 05-12 Calcium [Mass/Vol] 9.3 mg/dL Normal 8.4-10.4 [facility] Comment on above: Performed By: #### P T, CMP3M, HEMDF, MG3 #### [address] [place] [address] [place], [place] Glucose [Mass/Vol] 77 mg/dL Normal 70-100 [facility] Comment on above: Performed By: #### P T, CMP3M, HEMDF, MG3 #### [address] Urea nitrogen [Mass/Vol] 11 mg/dL Normal 7-20 [facility] Comment on above: Performed By: #### P T, CMP3M, HEMDF, MG3 #### [place] [address] [address] [place], [place] Anion gap [Moles/Vol] 11 Normal [facility] Comment on above: Performed By: #### P T, CMP3M, HEMDF, MG3 #### [address] CO2 [Moles/Vol] 20 mmol/L Low 22-30 [facility] Comment on above: Performed By: #### P T, CMP3M, HEMDF, MG3 #### [address] Creatinine [Mass/Vol] 0.97 mg/dL Normal 0.52-1.25 [facility] Comment on above: Performed By: #### P T, CMP3M, HEMDF, MG3 #### [facility] [address] [place], [place] GFR/1.73 sq M predicted among blacks MDRD (S/P/Bld) [Vol rate/Area] mL/min/{1.73_m2} Normal >60 [facility] Comment on above: Performed By: #### P T, CMP3M, HEMDF, MG3 #### [facility] [address] [place], [place] GFR/1.73 sq M predicted among non-blacks MDRD (S/P/Bld) [Vol rate/Area] mL/min/{1.73_m2} Normal >60 [facility] Comment on above: Result Comment: Sour ce- MDRD equation with creatinine calibration to IDMS(NKDEP) eGFR not recommended for drug dose adjustment Performed By: #### P T, CMP3M, HEMDF, MG3 #### [place] [address] [address] [place], [place] Potassium [Moles/Vol] 4.0 mmol/L Normal 3.5-5.1 [facility] Comment on above: Performed By: #### P T, CMP3M, HEMDF, MG3 #### [facility] [address] [place], [place] Chloride [Moles/Vol] 112 mmol/L High 98-107 [facility] Comment on above: Performed By: #### P T, CMP3M, HEMDF, MG3 #### [facility] [address] [place], [place] Sodium [Moles/Vol] 143 mmol/L Normal 135-145 [facility] Comment on above: Performed By: #### P T, CMP3M, HEMDF, MG3 #### [facility] [address] [place], [place] HIV 1,2 Ab; p24 Agon 019 HIV 1,2 Ab; p24 Ag NONREACTIVE Normal Nonreactive [facility] Comment on above: Result Comment: Resu lts [...] #### P T, CMP3M, HEMDF, MG3 #### [facility] [address] [place], [place] CULTURE AND STAIN - FLUIDon 05-28-2019 CULTURE AND STAIN - FLUID CULTURE & STAIN - FLUID --> Status: F No growth at 5 days. Normal [facility] Comment on above: Order Comment: Speci men Source Comment:Spinal Fluid Performed By: #### P T, CMP3M, HEMDF, MG3 #### [facility] [address] [place], [place] VDRL wReflex to Titer, CSFon 05-27-2019 VDRL wReflex, CSF Non Reactive Normal Non Reactive [facility] Comment on above: Result Comment: Tenisha use the VDRL was Non Reactive, the VDRL titer was not performed. Performed by [facility], [address] [place] [id number] [email or web address], Colby Castellano MD - Lab. Director Performed By: #### P T, CMP3M, HEMDF, MG3 #### [facility] [address] [place], [place] CULTURE MYCOBACTERIAon 05-26 CULTURE MYCOBACTERIA CULTURE MYCOBACTERI A --> Status: F No acid-fast bacilli isolated after 6 weeks incubation. STAIN ACID-FAST --> Status: F No acid-fast bacilli seen in smear. - Method: Fluorescent Stain - Method: Fluorescent Stain Normal [facility] Comment on above: Performed By: #### P T, CMP3M, HEMDF, MG3 #### [facility] [address] [place], [place] RPR, Qualon 05-26-2019 RPR, Qual NONREACTIVE Normal Non-Reactive [facility] Comment on above: Performed By: #### P T, CMP3M, HEMDF, MG3 #### [place] [address] [address] [place], [place] Basic Metabolic Panelon 05-11 Anion gap [Moles/Vol] 9 Normal [facility] Comment on above: Performed By: #### P T, CMP3M, HEMDF, MG3 #### [place] [address] [address] [place], [place] Calcium [Mass/Vol] 8.8 mg/dL Normal 8.4-10.4 [facility] Comment on above: Performed By: #### P T, CMP3M, HEMDF, MG3 #### [place] [address] [address] [place], [place] CO2 [Moles/Vol] 18 mmol/L Low 22-30 [facility] Comment on above: Performed By: #### P T, CMP3M, HEMDF, MG3 #### [place] [address] [address] [place], [place] Glucose [Mass/Vol] 86 mg/dL Normal 70-100 [facility] Comment on above: Performed By: #### P T, CMP3M, HEMDF, MG3 #### [place] [address] [address] [place], [place] Urea nitrogen [Mass/Vol] 29 mg/dL High 7-20 [facility] Comment on above: Performed By: #### P T, CMP3M, HEMDF, MG3 #### [place] [address] [address] [place], [place] Creatinine [Mass/Vol] 1.08 mg/dL Normal 0.52-1.25 [facility] Comment on above: Performed By: #### P T, CMP3M, HEMDF, MG3 #### [place] [address] [address] [place], [place] GFR/1.73 sq M predicted among blacks MDRD (S/P/Bld) [Vol rate/Area] mL/min/{1.73_m2} Normal >60 [facility] Comment on above: Performed By: #### P T, CMP3M, HEMDF, MG3 #### [facility] [address] [place] [address] GFR/1.73 sq M predicted among non-blacks MDRD (S/P/Bld) [Vol rate/Area] 59.0 mL/min/{1.73_m2} Normal >60 [facility] Comment on above: Result Comment: Sour ce- MDRD equation with creatinine calibration to IDMS(NKDEP) eGFR not recommended for drug dose adjustment Performed By: #### P T, CMP3M, HEMDF, MG3 #### [facility] [address] [place], [place] Potassium [Moles/Vol] 3.8 mmol/L Normal 3.5-5.1 [facility] Comment on above: Performed By: #### P T, CMP3M, HEMDF, MG3 #### [facility] [address] [place], [place] Chloride [Moles/Vol] 113 mmol/L High 98-107 [facility] Comment on above: Performed By: #### P T, CMP3M, HEMDF, MG3 #### [facility] [address] [place], [place] Sodium [Moles/Vol] 140 mmol/L Normal 135-145 [facility] Comment on above: Performed By: #### P T, CMP3M, HEMDF, MG3 #### [facility] [address] [place], [place] Basic Metabolic Panel w/ Ref levon to MGon 05-25-2019 Anion gap [Moles/Vol] 9 mmol/L [facility], [place] Calcium [Mass/Vol] 8.8 mg/dL 8.4 - 10. 4 mg/dL [facility], [place] Chloride [Moles/Vol] 113 mmol/L High 98 - 10 7 mmol/L [facility], [place] CO2 [Moles/Vol] 18 mmol/L Low 22 - 30 mmol/L [facility], [place] Creatinine [Mass/Vol] 1.08 mg/dL 0.52 - 1.25 mg/dL [place], [place] EGFR IF NonAfrican [place] 59.0 mL/min >60 [place], [place] Comment on above: Source- MDRD equatio n with creatinine calibration to IDMS(NKDEP) eGFR not recommended for drug dose adjustment GFR/1.73 sq M predicted among blacks MDRD (S/P/Bld) [Vol rate/Area] mL/min/{1.73_m2} >60 mL/min [place], [place] Glucose [Mass/Vol] 86 mg/dL 70 - 100 mg/dL [place] Interpretation and review of laboratory results Abnormal [place] Potassium [Moles/Vol] 3.8 mmol/L 3.5 - 5.1 mmol/L [place] Sodium [Moles/Vol] 140 mmol/L 135 - 145 mmol/L [place] Urea nitrogen [Mass/Vol] 29 mg/dL High 7 - 20 mg/dL [place] CBC auto differentialon 05-11 Absolute Baso # 0.1 10*3/uL 0 - 0.2 10*3/uL [place] Absolute Neut # 6.1 10*3/uL 1.8 - 7 10*3/uL [place] Basophils/100 WBC (Bld) 0.8 % 0 - 2 % [place] Eosinophils (Bld) [#/Vol] 0.1 10*3/uL 0 - 0.5 10*3/uL [place] Eosinophils/100 WBC (Bld) 1.1 % 1 - 6 % [place] Erythrocyte distribution width (RBC) [Ratio] 13.4 % 11.5 - 14.5 % [place] Granulocytes/100 WBC (Bld) 56.8 % 40 - 80 % [place] Hematocrit (Bld) [Volume fraction] 42.9 % 35 - 47 % [place] Hemoglobin (Bld) [Mass/Vol] 14.7 g/dL 11.7 - 16 g/dL [place] Interpretation and review of laboratory results Abnormal [place] Lymphocytes (Bld) [#/Vol] 3.5 10*3/uL 1 - 4.3 10*3/uL [place] Lymphocytes/100 WBC (Bld) 32.8 % 20 - 40 % [place] MCH (RBC) [Entitic mass] 28.5 pg 26 - 34 pg [place] MCHC (RBC) [Mass/Vol] 34.3 % 32 - 36 % [place] MCV (RBC) [Entitic vol] 83.2 fL 79 - 98 fL [place] Monocytes (Bld) [#/Vol] 0.9 10*3/uL High 0 - 0.8 10*3/uL [place] Monocytes/100 WBC (Bld) 8.5 % 2 - 10 % [place] Platelet mean volume (Bld) [Entitic vol] 7.7 fL 7.4 - 10.4 fL [place] Platelets (Bld) [#/Vol] 294 10*3/uL 140 - 440 10*3/uL [place] RBC (Bld) [#/Vol] 5.15 10*6/uL 3.8 - 5.2 10*6/uL [place] WBC (Bld) [#/Vol] 10.7 10*3/uL 3.6 - 10.7 10*3/uL [place] Test Performed by [facility], [address] [place] [address] [place], [place] Complete Urinalysison 2018 Appearance (U) Clear Normal [facility] Comment on above: Result Comment: Refe rence Range: Clear Performed By: #### P T, CMP3M, HEMDF, MG3 #### [address] [address] [place] [address] Bilirubin,Urine Negative Normal [facility] Comment on above: Result Comment: Refe rence Range: Negative Performed By: #### P T, CMP3M, HEMDF, MG3 #### [facility] [address] [place] [address] Color (U) Light-Yellow Normal [facility] Comment on above: Result Comment: Refe rence Range: Lt. Yellow Performed By: #### P T, CMP3M, HEMDF, MG3 #### [address] [address] [address] [place], [place] Glucose Ql (U) Normal Normal [facility] Comment on above: Result Comment: Refe rence Range: Normal (<70) Performed By: #### P T, CMP3M, HEMDF, MG3 #### [address] [address] [address] [place], [place] Ketone,Urine Negative Normal [facility] Comment on above: Result Comment: Refe rence Range: Negative Performed By: #### P T, CMP3M, HEMDF, MG3 #### [address] [address] [address] [place], [place] Leukocytes,Urine Negative Normal [facility] Comment on above: Result Comment: Refe rence Range: Negative Performed By: #### P T, CMP3M, HEMDF, MG3 #### [address] [address] [address] [place], [place] Nitrites,Urine Negative Normal [facility] Comment on above: Result Comment: Refe rence Range: Negative Performed By: #### P T, CMP3M, HEMDF, MG3 #### [address] Occult Blood,Urine Negative Normal [facility] Comment on above: Result Comment: Refe rence Range: Negative Performed By: #### P T, CMP3M, HEMDF, MG3 #### [address] [address] [address] [place], [place] pH (U) 5.5 Normal 5.0-8.0 [facility] Comment on above: Performed By: #### P T, CMP3M, HEMDF, MG3 #### [address] [address] [address] [place], [place] Protein (U) [Mass/Vol] Negative Normal [facility] Comment on above: Result Comment: Refe rence Range: Negative Performed By: #### P T, CMP3M, HEMDF, MG3 #### [address] [address] [address] [place], [place] Specific Adger,Urine 1.027 Normal 1.005-1.030 [facility] Comment on above: Performed By: #### P T, CMP3M, HEMDF, MG3 #### [address] [address] [address] [place], [place] Urobilinogen,Urine Normal Normal [facility] Comment on above: Result Comment: Refe rence Range: Normal (0-1) Performed By: #### P T, CMP3M, HEMDF, MG3 #### [address] [place], [place] Hemogram w/ Autodiffon 05-25 Abs Baso Cnt 0.1 10*3/uL Normal 0.0-0.2 [facility] Comment on above: Performed By: #### P T, CMP3M, HEMDF, MG3 #### [address] Abs Neutrophile Cnt 6.1 10*3/uL Normal 1.8-7.0 [facility] Comment on above: Performed By: #### P T, CMP3M, HEMDF, MG3 #### [address] Basophils/100 WBC (Bld) 0.8 % Normal 0.0-2.0 [facility] Comment on above: Performed By: #### P T, CMP3M, HEMDF, MG3 #### [address] [address] [place], [place] Eosinophils (Bld) [#/Vol] 0.1 10*3/uL Normal 0.0-0.5 [facility] Comment on above: Performed By: #### P T, CMP3M, HEMDF, MG3 #### [address] Eosinophils/100 WBC (Bld) 1.1 % Normal 1.0-6.0 [facility] Comment on above: Performed By: #### P T, CMP3M, HEMDF, MG3 #### [address] Erythrocyte distribution width (RBC) [Ratio] 13.4 % Normal 11.5-14.5 [facility] Comment on above: Performed By: #### P T, CMP3M, HEMDF, MG3 #### [address] [address] [address] [place], [place] Granulocytes/100 WBC (Bld) 56.8 % Normal 40.0-80.0 [facility] Comment on above: Performed By: #### P T, CMP3M, HEMDF, MG3 #### [address] [address] [address] [place], [place] Hematocrit (Bld) [Volume fraction] 42.9 % Normal 35.0-47.0 [facility] Comment on above: Performed By: #### P T, CMP3M, HEMDF, MG3 #### [address] [address] [address] [place] Hemoglobin (Bld) [Mass/Vol] 14.7 g/dL Normal 11.7-16.0 [facility] Comment on above: Performed By: #### P T, CMP3M, HEMDF, MG3 #### [address] [address] [address] [place], [place] Lymphocytes (Bld) [#/Vol] 3.5 10*3/uL Normal 1.0-4.3 [facility] Comment on above: Performed By: #### P T, CMP3M, HEMDF, MG3 #### [address] [address] [address] [place], [place] Lymphocytes/100 WBC (Bld) 32.8 % Normal 20.0-40.0 [facility] Comment on above: Performed By: #### P T, CMP3M, HEMDF, MG3 #### [address] [address] [address] [place], [place] MCH (RBC) [Entitic mass] 28.5 pg Normal 26.0-34.0 [facility] Comment on above: Performed By: #### P T, CMP3M, HEMDF, MG3 #### [address] [address] [address] [place] MCHC (RBC) [Mass/Vol] 34.3 % Normal 32.0-36.0 [facility] Comment on above: Performed By: #### P T, CMP3M, HEMDF, MG3 #### [address] [address] [address] [place] MCV (RBC) [Entitic vol] 83.2 fL Normal 79.0-98.0 [facility] Comment on above: Performed By: #### P T, CMP3M, HEMDF, MG3 #### [address] [address] [address] [place], [place] Monocytes (Bld) [#/Vol] 0.9 10*3/uL High 0.0-0.8 [facility] Comment on above: Performed By: #### P T, CMP3M, HEMDF, MG3 #### [address] [address] [address] [place], [place] Monocytes/100 WBC (Bld) 8.5 % Normal 2.0-10.0 [facility] Comment on above: Performed By: #### P T, CMP3M, HEMDF, MG3 #### [address] [address] [address] [place], [place] Platelet mean volume (Bld) [Entitic vol] 7.7 fL Normal 7.4-10.4 [facility] Comment on above: Performed By: #### P T, CMP3M, HEMDF, MG3 #### [address] [address] [address] [place], [place] Platelets (Bld) [#/Vol] 294 10*3/uL Normal 140-440 [facility] Comment on above: Performed By: #### P T, CMP3M, HEMDF, MG3 #### [address] [address] [address] [place], [place] RBC (Bld) [#/Vol] 5.15 10*6/uL Normal 3.80-5.20 [facility] Comment on above: Performed By: #### P T, CMP3M, HEMDF, MG3 #### [address] [address] [address] [place] WBC (Bld) [#/Vol] 10.7 10*3/uL Normal 3.6-10.7 [facility] Comment on above: Performed By: #### P T, CMP3M, HEMDF, MG3 #### [facility] [address] [place] [address] Magnesiumon 05-25-2019 Magnesium [Mass/Vol] 2.1 mg/dL Normal 1.6-2.3 [facility] Comment on above: Performed By: #### P T, CMP3M, HEMDF, MG3 #### [address] [address] [place] [address] Magnesium [Mass/Vol] 2.1 mg/dL 1.6 - 2 .3 mg/dL [facility], [place] Otheron 05-25-2019 Test Performed by [facility], [address] [place] [address] [place], [place] Basic Metabolic Panelon 05-11 Anion gap [Moles/Vol] 13 Normal [facility] Comment on above: Performed By: #### P T, CMP3M, HEMDF, MG3 #### [place] [address], [place] Calcium [Mass/Vol] 9.7 mg/dL Normal 8.4-10.4 [facility] Comment on above: Performed By: #### P T, CMP3M, HEMDF, MG3 #### [address] [place] [address] CO2 [Moles/Vol] 15 mmol/L Low 22-30 [facility] Comment on above: Performed By: #### P T, CMP3M, HEMDF, MG3 #### [address] [place] [address] Glucose [Mass/Vol] 109 mg/dL High 70-100 [facility] Comment on above: Result Comment: Mode rately hemolysed, interpret with caution. Performed By: #### P T, CMP3M, HEMDF, MG3 #### [address] [place] [address] Urea nitrogen [Mass/Vol] 26 mg/dL High 7-20 [facility] Comment on above: Performed By: #### P T, CMP3M, HEMDF, MG3 #### [address] [place], [place] Creatinine [Mass/Vol] 1.06 mg/dL Normal 0.52-1.25 [facility] Comment on above: Performed By: #### P T, CMP3M, HEMDF, MG3 #### [address] [place], [place] GFR/1.73 sq M predicted among blacks MDRD (S/P/Bld) [Vol rate/Area] mL/min/{1.73_m2} Normal >60 [facility] Comment on above: Performed By: #### P T, CMP3M, HEMDF, MG3 #### [address] [place], [place] GFR/1.73 sq M predicted among non-blacks MDRD (S/P/Bld) [Vol rate/Area] mL/min/{1.73_m2} Normal >60 [facility] Comment on above: Result Comment: Sour ce- MDRD equation with creatinine calibration to IDMS(NKDEP) eGFR not recommended for drug dose adjustment Performed By: #### P T, CMP3M, HEMDF, MG3 #### [address] [place], [place] Chloride [Moles/Vol] 112 mmol/L High 98-107 [facility] Comment on above: Performed By: #### P T, CMP3M, HEMDF, MG3 #### [address] [place], [place] Potassium [Moles/Vol] 5.1 mmol/L Normal 3.5-5.1 [facility] Comment on above: Result Comment: Mode rately hemolysed, interpret with caution. Performed By: #### P T, CMP3M, HEMDF, MG3 #### [address] [place], [place] Sodium [Moles/Vol] 140 mmol/L Normal 135-145 [facility] Comment on above: Performed By: #### P T, CMP3M, HEMDF, MG3 #### [facility] [address] [place] [address] Basic Metabolic Panel w/ Ref levon to MGon 05-24-2019 Anion gap [Moles/Vol] 13 mmol/L [place] Calcium [Mass/Vol] 9.7 mg/dL 8.4 - 10. 4 mg/dL [place] Chloride [Moles/Vol] 112 mmol/L High 98 - 10 7 mmol/L [place] CO2 [Moles/Vol] 15 mmol/L Low 22 - 30 mmol/L [place] Creatinine [Mass/Vol] 1.06 mg/dL 0.52 - 1.25 mg/dL [place] EGFR IF NonAfrican [place]ar[place] >60.0 >60 mL/min [place] Comment on above: Source- MDRD equatio n with creatinine calibration to IDMS(NKDEP) eGFR not recommended for drug dose adjustment GFR/1.73 sq M predicted among blacks MDRD (S/P/Bld) [Vol rate/Area] mL/min/{1.73_m2} >60 mL/min [place] Glucose [Mass/Vol] 109 mg/dL High 70 - 100 mg/dL [place] Comment on above: Moderately hemolysed , interpret with caution. Potassium [Moles/Vol] 5.1 mmol/L 3.5 - 5.1 mmol/L [place] Comment on above: Moderately hemolysed , interpret with caution. Sodium [Moles/Vol] 140 mmol/L 135 - 145 mmol/L [place] Urea nitrogen [Mass/Vol] 26 mg/dL High 7 - 20 mg/dL [place] Magnesiumon 05-24-2019 Magnesium [Mass/Vol] 2.5 mg/dL High 1.6-2.3 [facility] Comment on above: Result Comment: Mode rately hemolysed, interpret with caution. Performed By: #### P T, CMP3M, HEMDF, MG3 #### [facility] [address] [address] Magnesium [Mass/Vol] 2.5 mg/dL High 1.6 - 2 .3 mg/dL [place] Comment on above: Moderately hemolysed , interpret with caution. Otheron 05-24-2019 Interpretation and review of laboratory results Abnormal [place] Test Performed by [facility], [address] [place] [address] [place] Urinalysison 05-24-2019 Appearance (U) Clear [place] Comment on above: Reference Range: Sean ar Bilirubin Urine Negative mg/dL [place] Comment on above: Reference Range: Neg ative Color (U) Light-Yellow [place] Comment on above: Reference Range: Lt. Yellow Glucose, Ur Normal mg/dL [place] Comment on above: Reference Range: Nor mal (<70) Ketones Ql (U) Negative mg/dL [place] Comment on above: Reference Range: Neg ative LEUKOCYTES, UA Negative Min/uL [place] Comment on above: Reference Range: Neg ative Nitrite, Urine Negative [place] Comment on above: Reference Range: Neg ative Occult Blood,Urine Negative mg/dL [place] Comment on above: Reference Range: Neg ative pH (U) 5.5 [pH] [place] Protein (U) [Mass/Vol] Negative mg/dL [place] Comment on above: Reference Range: Neg ative Specific Adger, Urine 1.027 [place] Urobilinogen, Urine Normal mg/dL [place] Comment on above: Reference Range: Nor mal (0-1) Test Performed by [facility], [address] [place] [id number] [place] [address] Add On Lab Teston 05-23-2019 Sodium [Moles/Vol] Accepted [place] Comment on above: Specimen available & acceptable for analysis. Test Performed by [facility], [address] [place] [id number] [place] [address] Add on test from HISon 05-23 Add on test from HIS Accepted Normal [facility] Comment on above: Result Comment: Spec imen available & acceptable for analysis. Performed By: #### P T, CMP3M, HEMDF, MG3 #### [facility] [address] [place], [place] Basic Metabolic Panelon 05-11 Calcium [Mass/Vol] 9.4 mg/dL Normal 8.4-10.4 [facility] Comment on above: Performed By: #### P T, CMP3M, HEMDF, MG3 #### [facility] [address] [place], [place] Glucose [Mass/Vol] 123 mg/dL High 70-100 [facility] Comment on above: Performed By: #### P T, CMP3M, HEMDF, MG3 #### [address] [place], [place] Anion gap [Moles/Vol] 12 Normal [facility] Comment on above: Performed By: #### P T, CMP3M, HEMDF, MG3 #### [address] [place], [place] CO2 [Moles/Vol] 20 mmol/L Low 22-30 [facility] Comment on above: Performed By: #### P T, CMP3M, HEMDF, MG3 #### [address] [place], [place] Creatinine [Mass/Vol] 0.75 mg/dL Normal 0.52-1.25 [facility] Comment on above: Performed By: #### P T, CMP3M, HEMDF, MG3 #### [facility] [address] [place], [place] GFR/1.73 sq M predicted among blacks MDRD (S/P/Bld) [Vol rate/Area] mL/min/{1.73_m2} Normal >60 [facility] Comment on above: Performed By: #### P T, CMP3M, HEMDF, MG3 #### [facility] [address] [place], [place] GFR/1.73 sq M predicted among non-blacks MDRD (S/P/Bld) [Vol rate/Area] mL/min/{1.73_m2} Normal >60 [facility] Comment on above: Result Comment: Sour ce- MDRD equation with creatinine calibration to IDMS(NKDEP) eGFR not recommended for drug dose adjustment Performed By: #### P T, CMP3M, HEMDF, MG3 #### [address] [place], [place] Urea nitrogen [Mass/Vol] 10 mg/dL Normal 7-20 [facility] Comment on above: Performed By: #### P T, CMP3M, HEMDF, MG3 #### [address] [place], [place] Potassium [Moles/Vol] 4.0 mmol/L Normal 3.5-5.1 [facility] Comment on above: Performed By: #### P T, CMP3M, HEMDF, MG3 #### [address] [place], [place] Chloride [Moles/Vol] 108 mmol/L High 98-107 [facility] Comment on above: Performed By: #### P T, CMP3M, HEMDF, MG3 #### [address] [place], [place] Sodium [Moles/Vol] 139 mmol/L Normal 135-145 [facility] Comment on above: Performed By: #### P T, CMP3M, HEMDF, MG3 #### [address] [place], [place] Basic Metabolic Panel w/ Ref levon to MGon 05-23-2019 Anion gap [Moles/Vol] 12 mmol/L [facility], [place] Calcium [Mass/Vol] 9.4 mg/dL 8.4 - 10. 4 mg/dL [facility], [place] Chloride [Moles/Vol] 108 mmol/L High 98 - 10 7 mmol/L [facility], [place] CO2 [Moles/Vol] 20 mmol/L Low 22 - 30 mmol/L [facility], [place] Creatinine [Mass/Vol] 0.75 mg/dL 0.52 - 1.25 mg/dL [place] EGFR IF NonAfrican [place]ar[place]uan >60.0 >60 mL/min [place] Comment on above: Source- MDRD equatio n with creatinine calibration to IDCA(NKDEP) eGFR not recommended for drug dose adjustment GFR/1.73 sq M predicted among blacks MDRD (S/P/Bld) [Vol rate/Area] mL/min/{1.73_m2} >60 mL/min [place] Glucose [Mass/Vol] 123 mg/dL High 70 - 100 mg/dL [place] Potassium [Moles/Vol] 4.0 mmol/L 3.5 - 5.1 mmol/L [place] Sodium [Moles/Vol] 139 mmol/L 135 - 145 mmol/L [place] Urea nitrogen [Mass/Vol] 10 mg/dL 7 - 20 mg/dL [place] CBC auto differentialon 05-11 Absolute Baso # 0.0 10*3/uL 0 - 0.2 10*3/uL [place] Absolute Neut # 11.6 10*3/uL High 1.8 - 7 10*3/uL [place] Basophils/100 WBC (Bld) 0.3 % 0 - 2 % [place] Eosinophils (Bld) [#/Vol] 0.0 10*3/uL 0 - 0.5 10*3/uL [place] Eosinophils/100 WBC (Bld) 0.1 % Low 1 - 6 % [place] Erythrocyte distribution width (RBC) [Ratio] 13.6 % 11.5 - 14.5 % [place] Granulocytes/100 WBC (Bld) 88.7 % High 40 - 80 % [place] Hematocrit (Bld) [Volume fraction] 42.6 % 35 - 47 % [place] Hemoglobin (Bld) [Mass/Vol] 14.6 g/dL 11.7 - 16 g/dL [place] Interpretation and review of laboratory results Abnormal [place] Lymphocytes (Bld) [#/Vol] 1.3 10*3/uL 1 - 4.3 10*3/uL [place] Lymphocytes/100 WBC (Bld) 9.8 % Low 20 - 40 % [place] MCH (RBC) [Entitic mass] 28.3 pg 26 - 34 pg [place] MCHC (RBC) [Mass/Vol] 34.2 % 32 - 36 % [place] MCV (RBC) [Entitic vol] 82.8 fL 79 - 98 fL [place] Monocytes (Bld) [#/Vol] 0.1 10*3/uL 0 - 0.8 10*3/uL [place] Monocytes/100 WBC (Bld) 1.1 % Low 2 - 10 % [place] Platelet mean volume (Bld) [Entitic vol] 8.2 fL 7.4 - 10.4 fL [place] Platelets (Bld) [#/Vol] 307 10*3/uL 140 - 440 10*3/uL [place] RBC (Bld) [#/Vol] 5.14 10*6/uL 3.8 - 5.2 10*6/uL [place] WBC (Bld) [#/Vol] 13.1 10*3/uL High 3.6 - 10.7 10*3/uL [place] Test Performed by [facility], [address] [place] [address] [place] CSF cell count with differen tialon 05-23-2019 Appearance (U) see below [place] Comment on above: Clear and colorless Nucleated Cells, CSF 0 {cells}/uL 0 - 5 {cells}/uL [place] Red blood cells count, CSF 41 {RBC}/uL [place] Sodium [Moles/Vol] see below [place] Comment on above: Clear and colorless Test Performed by [facility], [address] [place] [address] [place] Cell Count,CSFon 05-23-2019 Appearance (U) see below [facility] Comment on above: Result Comment: Shahla r and colorless Performed By: #### T HC4, CSFP3, DRGA4, CSFG3, HCGUR, CSFCC #### [address] [place], [place] Nucleated Cells,CSF 0 {cells}/uL Normal 0-5 [facility] Comment on above: Performed By: #### T HC4, CSFP3, DRGA4, CSFG3, HCGUR, CSFCC #### [address] [place], [place] RBC Count,CSF 41 {RBC}/uL Normal [facility] Comment on above: Performed By: #### T HC4, CSFP3, DRGA4, CSFG3, HCGUR, CSFCC #### [address] [place], [place] Supernatant see below Normal [facility] Comment on above: Result Comment: Shahla r and colorless Performed By: #### T HC4, CSFP3, DRGA4, CSFG3, HCGUR, CSFCC #### [address] [place], [place] Drugs of Abuseon 05-23-2019 Phencyclidine (PCP), Ur Negative [facility] Comment on above: Result Comment: The expected [...] HC4, CSFP3, DRGA4, CSFG3, HCGUR, CSFCC #### [address] [place], [place] Methadone, Ur Negative [facility] Comment on above: Performed By: #### T HC4, CSFP3, DRGA4, CSFG3, HCGUR, CSFCC #### [facility] [address] [place] [address] Opiates, Ur Positive Normal [facility] Comment on above: Performed By: #### T HC4, CSFP3, DRGA4, CSFG3, HCGUR, CSFCC #### [facility] [address] [place] [address] Cocaine, Ur Negative Normal [facility] Comment on above: Performed By: #### T HC4, CSFP3, DRGA4, CSFG3, HCGUR, CSFCC #### [facility] [address] [place] [address] Barbiturates, Ur Negative Normal [facility] Comment on above: Performed By: #### T HC4, CSFP3, DRGA4, CSFG3, HCGUR, CSFCC #### [facility] [address] [place] [address] Benzodiazepines, Ur Negative Normal [facility] Comment on above: Performed By: #### T HC4, CSFP3, DRGA4, CSFG3, HCGUR, CSFCC #### [facility] [address] [place] [address] Amphetamines, Ur Negative Normal [facility] Comment on above: Performed By: #### T HC4, CSFP3, DRGA4, CSFG3, HCGUR, CSFCC #### [facility] [address] [place] [address] Oxycodone/Oxymorphin e,Ur Negative Normal [facility] Comment on above: Performed By: #### T HC4, CSFP3, DRGA4, CSFG3, HCGUR, CSFCC #### [facility] [address] [place] [address] Glucose CSFon 05-23-2019 Glucose, CSF 73 mg/dL High 40 - 70 mg/dL [facility], [place] Interpretation and review of laboratory results Abnormal [facility], [place] Test Performed by [facility], [address] [place] [address] [facility], [place] Glucose, CSFon 05-23-2019 Appearance (U) see below Normal [facility] Comment on above: Result Comment: Shahla r and colorless Performed By: #### P T, CMP3M, HEMDF, MG3 #### [address] [address] Supernatant see below Normal [facility] Comment on above: Result Comment: Shahla r and colorless Performed By: #### P T, CMP3M, HEMDF, MG3 #### [address] [address] Glucose, CSF 73 mg/dL High 40-70 [facility] Comment on above: Performed By: #### P T, CMP3M, HEMDF, MG3 #### [address] [address] Gram stain CSFon 05-23-2019 INR Coag (Bld) [Relative time] Cytocentrifugation performed. Rare polymorphonuclear cells/lpf. No organisms seen. [place] Test Performed by [address] [address] Specimen Source Comment:Spinal Fluid [place] Hemoglobin A1Con 05-23-2019 HbA1c (Bld) [Mass fraction] 5.2 % Normal 4.0-5.7 [facility] Comment on above: Result Comment: --Hg bA1C levels may not be accurate in patients who have renal disease, received recent blood transfusions, are anemic, or who have dyshemoglobinemia. Performed By: #### P T, CMP3M, HEMDF, MG3 #### [address] [place] [address] HbA1c (Bld) [Mass fraction] 103 mg/dL Normal [facility] Comment on above: Performed By: #### P T, CMP3M, HEMDF, MG3 #### [address] [address] eAG 103 mg/dL [place] HbA1c (Bld) [Mass fraction] 5.2 % 4 - 5.7 % [place] Comment on above: --HgbA1C levels may not be accurate in patients who have renal disease, received recent blood transfusions, are anemic, or who have dyshemoglobinemia. Test Performed by [facility], [address] [place] [address] [facility] [place], [place] Hemogram w/ Autodiffon 05-23 Abs Baso Cnt 0.0 10*3/uL Normal 0.0-0.2 [facility] Comment on above: Performed By: #### P T, CMP3M, HEMDF, MG3 #### [address] [address] Abs Neutrophile Cnt 11.6 10*3/uL High 1.8-7.0 [facility] Comment on above: Performed By: #### P T, CMP3M, HEMDF, MG3 #### [address] [address] Basophils/100 WBC (Bld) 0.3 % Normal 0.0-2.0 [facility] Comment on above: Performed By: #### P T, CMP3M, HEMDF, MG3 #### [address] [address] Eosinophils (Bld) [#/Vol] 0.0 10*3/uL Normal 0.0-0.5 [facility] Comment on above: Performed By: #### P T, CMP3M, HEMDF, MG3 #### [address] [address] Eosinophils/100 WBC (Bld) 0.1 % Low 1.0-6.0 [facility] Comment on above: Performed By: #### P T, CMP3M, HEMDF, MG3 #### [address] [address] Erythrocyte distribution width (RBC) [Ratio] 13.6 % Normal 11.5-14.5 [facility] Comment on above: Performed By: #### P T, CMP3M, HEMDF, MG3 #### [address] [address] Granulocytes/100 WBC (Bld) 88.7 % High 40.0-80.0 [facility] Comment on above: Performed By: #### P T, CMP3M, HEMDF, MG3 #### [address] [place], [place] Hematocrit (Bld) [Volume fraction] 42.6 % Normal 35.0-47.0 [facility] Comment on above: Performed By: #### P T, CMP3M, HEMDF, MG3 #### [address] [place], [place] Hemoglobin (Bld) [Mass/Vol] 14.6 g/dL Normal 11.7-16.0 [facility] Comment on above: Performed By: #### P T, CMP3M, HEMDF, MG3 #### [address] [place], [place] Lymphocytes (Bld) [#/Vol] 1.3 10*3/uL Normal 1.0-4.3 [facility] Comment on above: Performed By: #### P T, CMP3M, HEMDF, MG3 #### [address] [place], [place] Lymphocytes/100 WBC (Bld) 9.8 % Low 20.0-40.0 [facility] Comment on above: Performed By: #### P T, CMP3M, HEMDF, MG3 #### [address] [place], [place] MCH (RBC) [Entitic mass] 28.3 pg Normal 26.0-34.0 [facility] Comment on above: Performed By: #### P T, CMP3M, HEMDF, MG3 #### [address] [place], [place] MCHC (RBC) [Mass/Vol] 34.2 % Normal 32.0-36.0 [facility] Comment on above: Performed By: #### P T, CMP3M, HEMDF, MG3 #### [address] [place], [place] MCV (RBC) [Entitic vol] 82.8 fL Normal 79.0-98.0 [facility] Comment on above: Performed By: #### P T, CMP3M, HEMDF, MG3 #### [facility] [address] [place], [place] Monocytes (Bld) [#/Vol] 0.1 10*3/uL Normal 0.0-0.8 [facility] Comment on above: Performed By: #### P T, CMP3M, HEMDF, MG3 #### [facility] [address] [place], [place] Monocytes/100 WBC (Bld) 1.1 % Low 2.0-10.0 [facility] Comment on above: Performed By: #### P T, CMP3M, HEMDF, MG3 #### [address] [place], [place] Platelet mean volume (Bld) [Entitic vol] 8.2 fL Normal 7.4-10.4 [facility] Comment on above: Performed By: #### P T, CMP3M, HEMDF, MG3 #### [address] [place], [place] Platelets (Bld) [#/Vol] 307 10*3/uL Normal 140-440 [facility] Comment on above: Performed By: #### P T, CMP3M, HEMDF, MG3 #### [address] [place], [place] RBC (Bld) [#/Vol] 5.14 10*6/uL Normal 3.80-5.20 [facility] Comment on above: Performed By: #### P T, CMP3M, HEMDF, MG3 #### [address] [place], [place] WBC (Bld) [#/Vol] 13.1 10*3/uL High 3.6-10.7 [facility] Comment on above: Performed By: #### P T, CMP3M, HEMDF, MG3 #### [address] [place], [place] Lipid Panelon 05-23-2019 Cholesterol in HDL [Mass/Vol] 39 mg/dL Low 40-60 [facility] Comment on above: Performed By: #### P T, CMP3M, HEMDF, MG3 #### [facility] [address] [place] [address] Cholesterol.total/Ch olesterol in HDL [Mass ratio] 5 Normal [facility] Comment on above: Result Comment: Ref Range: < 3 Low Risk for CHD 3-6 Mod Risk for CHD > 6 High Risk for CHD Performed By: #### P T, CMP3M, HEMDF, MG3 #### [facility] [address] [place] [address] Protein [Mass/Vol] 135 mg/dL Abnormal <100 [facility] Comment on above: Performed By: #### P T, CMP3M, HEMDF, MG3 #### [facility] [address] [place] [address] Triglyceride [Mass/Vol] 106 mg/dL Normal <150 [facility] Comment on above: Performed By: #### P T, CMP3M, HEMDF, MG3 #### [facility] [address] [place] [address] Cholesterol [Mass/Vol] 195 mg/dL Normal < 200 [facility] Comment on above: Performed By: #### P T, CMP3M, HEMDF, MG3 #### [facility] [address] [place] [address] Cholesterol [Mass/Vol] 195 mg/dL <200 [place] Cholesterol in HDL [Mass/Vol] 39 mg/dL Low 40 - 60 mg/dL [place] Cholesterol in LDL [Mass/Vol] 135 mg/dL Abnormal <100 [place] Cholesterol.total/Ch olesterol in HDL [Mass ratio] 5 {ratio} [place] Comment on above: Ref Range: < 3 Low Risk for CHD 3-6 Mod Risk for CHD > 6 High Risk for CHD Triglyceride [Mass/Vol] 106 mg/dL <150 [place] MENINGITIS/ENCEPHALITIS PCR PANELon 05-23-2019 MENINGITIS/ENCEPHALI TIS PCR PANEL MENINGITIS/ENCEPHALITIS PCR PANEL --> Status: F NEGATIVE: No targets were detected by the [employer] Meningitis/Encephalitis PCR Panel. The [employer] Meningitis/Encephalitis Panel [...] and epidemiological data. Meningitis/Encephalitis PCR Panel. The [employer] Meningitis/Encephalitis Panel detects the following targets: Escherichia [...] other clinical, laboratory, and epidemiological data. Normal [facility] Comment on above: Order Comment: Speci men Source Comment:CSF Performed By: #### P T, CMP3M, HEMDF, MG3 #### [facility] [address] [place] [address] MRA Head w/o Contraston 05-11 MRA Head w/o Contrast Patient Name: OMAR SERRANO MRI Exam Date/Time 05/22/2019 22:25:30 EDT Exam MRA Head w/o Contrast Ordering Physician Shawna TEMPLETON JOHN C Accession Number [id number] CPT4 Codes 90383 () Reason For Exam headache Report MRI [...] Transcribed Date and Time: 05/22/2019 10:40 Normal [facility] MRA Neck w/ + w/o Contraston 05-23-2019 MRA Neck w/ + w/o Contrast Patient Name: OMAR SERRANO MRI Exam Date/Time 05/22/2019 22:25:30 EDT Exam MRA Neck w/ + w/o Contrast Ordering Physician Shawna TEMPLETON JOHN C Accession Number [id number] CPT4 Codes 70092 () Reason For Exam headache Report MRI [...] Transcribed Date and Time: 05/22/2019 10:40 Normal [facility] MRI Brain w/ + w/o Contrasto n 05-23-2019 MRI Brain w/ + w/o Contrast Patient Name: OMAR SERRANO MRI Exam Date/Time 05/22/2019 22:25:30 EDT Exam MRI Brain w/ + w/o Contrast Ordering Physician Shawna TEMPLETON, MAURICIO Elkins Accession Number [id number] CPT4 Codes 48885 () Reason For Exam headache Report MRI [...] Transcribed Date and Time: 05/22/2019 10:40 Normal [facility] MRV Headon 05-23-2019 MRV Head Patient Name: OMAR SERRANO MRI Exam Date/Time 05/22/2019 22:25:30 EDT Exam MRV Head Ordering Physician Shawna TEMPLETON MAURICIO Elkins Accession Number [id number] CPT4 Codes 07962 () Reason For Exam headache Report MRI [...] Transcribed Date and Time: 05/22/2019 10:40 Normal [facility] Magnesiumon 05-23-2019 Magnesium [Mass/Vol] 2.8 mg/dL High 1.6-2.3 [facility] [employer] [facility] Comment on above: Performed By: #### P T, CMP3M, HEMDF, MG3 #### [facility] [employer] [facility] [address] [place] [address] Magnesium [Mass/Vol] 2.8 mg/dL High 1.6 - 2 .3 mg/dL [facility], [place] Medical Cytology 9 Medical Cytology [facility] [id number] DEPARTMENT OF PATHOLOGY AND [facility], [facility]. LABORATORY MEDICINE [address] [place] [address] [phone] FINAL MEDICAL CYTOLOGY REPORT NAME: OMAR SERRANO : 1985 33 Y F BILLING NO.: [id number] LOCATION: [address] [place] [address] [facility] PROCEDURE 05/23/2019 DATE: PHYSICIAN: MAURICIO TEMPLETON MD [...] characteristics determined by the clinical laboratories of [facility]. They have not been cleared by [...] negativity on decalcified specimens. Case reviewed at [address] [address] [place] [address]. DEPARTMENT OF PATHOLOGY AND LABORATORY MEDICINE [place], [place] [address] Normal [facility] Meningitis/Encephalitis Pane l, CSFon 05-23-2019 Meningitis Encephalitis Panel NEGATIVE: No targets were detected by the [employer] Meningitis/Encephalitis PCR Panel. The [employer] Meningitis/Encephalitis Panel [...] with other clinical, laboratory, and epidemiological data. [email or web address] Test Performed by [facility], [address] [place] [address] Specimen Source Comment:[facility] Met[facility] Panelon 05-23-2019 Sodium [Moles/Vol] see below [email or web address] Comment on above: Clear and colorless Otheron 05-23-2019 Interpretation and review of laboratory results Abnormal [email or web address] Test Performed by [facility], [facility] [place] [address] [facility] Protein CSFon 05-23-2019 Protein, CSF 39.6 mg/dL 12 - 60 mg/dL [facility] Performed by [facility], [facility] [place] [address] [facility] [place] [place] Protein, CSFon 05-23-2019 Protein, CSF 39.6 mg/dL Normal 12.0-60.0 [facility] Comment on above: Performed By: #### T HC4, CSFP3, DRGA4, CSFG3, HCGUR, CSFCC #### [facility] [address] [place] [address] STAIN GRAMon 05-23-2019 STAIN GRAM STAIN GRAM --> Statu s: F Cytocentrifugation performed. Rare polymorphonuclear cells/lpf. No organisms seen. Rare polymorphonuclear cells/lpf. No organisms seen. Normal [facility] Comment on above: Order Comment: Speci men Source Comment:Spinal Fluid Performed By: #### P T, CMP3M, HEMDF, MG3 #### [facility] [address] [place] [address] THC, Urineon 05-23-2019 THC, Ur Negative Normal [facility] Comment on above: Result Comment: Thre shold= 50 ng/mL Performed By: #### T HC4, CSFP3, DRGA4, CSFG3, HCGUR, CSFCC #### [facility] [address] [place] [address] XA SPECIAL PROCEDUREon 05-23 Jose, [facility] Incoming Radiology Results From [facility] - 05/23/2019 5:46 PM EDT Patient Name: OMAR SERRANO ---Special Procedures--- Exam Date/Time 05/23/2019 17:29:59 EDT Exam XA Special Angiography Procedure Ordering Physician NEIL PORTER, SHAYY Zhang Accession Number [id number] Reason For Exam lumbar puncture with opening [...] KEVIN Transcribed Date and Time: 05/23/2019 5:26 [place], [place] Patient Name: OMAR SERRANO ---Special Procedures--- Exam Date/Time 05/23/2019 17:29:59 EDT Exam XA Special Angiography Procedure Ordering Physician NEIL PORTER REBECCA K. Accession Number [id number] Reason For Exam lumbar puncture with opening [...] KEVIN Transcribed Date and Time: 05/23/2019 5:26 [place] XA Special Angiography [facility] XA Special Angiography Procedure Patient Name: OMAR SERRANO Special Procedures Exam Date/Time 05/23/2019 17:29:59 EDT Exam XA Special Angiography Procedure Ordering Physician NEIL PORTER, SHAYY Vicente Accession Number [id number] Reason For Exam lumbar puncture with opening [...] Transcribed Date and Time: 05/23/2019 5:26 Normal [facility] Add On Lab Teston 05-22-2019 Sodium [Moles/Vol] Accepted [place], [place] Comment on above: Specimen available & acceptable for analysis. Test Performed by [facility], [address] [place] [address] [place], [place] Add on test from [facility]on 05-22 Add on test from [facility] Accepted Normal [facility] Comment on above: Result Comment: Spec imen available & acceptable for analysis. Performed By: #### A DDON #### [address] [address] CBC auto differentialon 05-11 Absolute Baso # 0.1 10*3/uL 0 - 0.2 10*3/uL [place] Absolute Neut # 9.8 10*3/uL High 1.8 - 7 10*3/uL [place] Basophils/100 WBC (Bld) 0.7 % 0 - 2 % [place] Eosinophils (Bld) [#/Vol] 0.1 10*3/uL 0 - 0.5 10*3/uL [place] Eosinophils/100 WBC (Bld) 0.7 % Low 1 - 6 % [place] Erythrocyte distribution width (RBC) [Ratio] 13.4 % 11.5 - 14.5 % [place] Granulocytes/100 WBC (Bld) 69.0 % 40 - 80 % [place] Hematocrit (Bld) [Volume fraction] 42.2 % 35 - 47 % [place] Hemoglobin (Bld) [Mass/Vol] 14.4 g/dL 11.7 - 16 g/dL [place] Interpretation and review of laboratory results Abnormal [place] Lymphocytes (Bld) [#/Vol] 3.2 10*3/uL 1 - 4.3 10*3/uL [place] Lymphocytes/100 WBC (Bld) 22.2 % 20 - 40 % [place] MCH (RBC) [Entitic mass] 28.1 pg 26 - 34 pg [place] MCHC (RBC) [Mass/Vol] 34.2 % 32 - 36 % [place] MCV (RBC) [Entitic vol] 82.1 fL 79 - 98 fL [place] Monocytes (Bld) [#/Vol] 1.1 10*3/uL High 0 - 0.8 10*3/uL [place] Monocytes/100 WBC (Bld) 7.4 % 2 - 10 % [place] Platelet mean volume (Bld) [Entitic vol] 7.6 fL 7.4 - 10.4 fL [place] Platelets (Bld) [#/Vol] 271 10*3/uL 140 - 440 10*3/uL [place] RBC (Bld) [#/Vol] 5.14 10*6/uL 3.8 - 5.2 10*6/uL [place] WBC (Bld) [#/Vol] 14.2 10*3/uL High 3.6 - 10.7 10*3/uL [place] Test Performed by [facility], [address] [place] [id number] [place] [address] Cannabinoid, Urine, Screenin g, Critical Careon 05-22-2019 THC Negative [place] Comment on above: Threshold= 50 ng/mL Test Performed by [facility], [address] [place] [id number] [place] [address] Comp Panel with Mg Reflexon 05-22-2019 ALT [Catalytic activity/Vol] 15 U/L Normal 13-69 [facility] Comment on above: Performed By: #### P T, CMP3M, HEMDF, MG3 #### [address] [address] Calcium [Mass/Vol] 9.1 mg/dL Normal 8.4-10.4 [facility] Comment on above: Performed By: #### P T, CMP3M, HEMDF, MG3 #### [place] [address] [address], [place] ALP [Catalytic activity/Vol] 103 U/L Normal 38-126 [facility] Comment on above: Performed By: #### P T, CMP3M, HEMDF, MG3 #### [place] [address] [address], [place] Anion gap [Moles/Vol] 10 Normal [facility] Comment on above: Performed By: #### P T, CMP3M, HEMDF, MG3 #### [place] [address] [address] [place], [place] AST [Catalytic activity/Vol] 19 U/L Normal 15-46 [facility] Comment on above: Performed By: #### P T, CMP3M, HEMDF, MG3 #### [place] [address] [place], [place] Bilirubin [Mass/Vol] 0.7 mg/dL Normal 0.2-1.3 [facility] Comment on above: Performed By: #### P T, CMP3M, HEMDF, MG3 #### [place] [address] [address] [place], [place] CO2 [Moles/Vol] 21 mmol/L Low 22-30 [facility] Comment on above: Performed By: #### P T, CMP3M, HEMDF, MG3 #### [place] [address] [address] [place], [place] Creatinine [Mass/Vol] 0.67 mg/dL Normal 0.52-1.25 [facility] Comment on above: Performed By: #### P T, CMP3M, HEMDF, MG3 #### [place] [address] [address] [place], [place] GFR/1.73 sq M predicted among blacks MDRD (S/P/Bld) [Vol rate/Area] mL/min/{1.73_m2} Normal >60 [facility] Comment on above: Performed By: #### P T, CMP3M, HEMDF, MG3 #### [place] [address] [address] [place], [place] GFR/1.73 sq M predicted among non-blacks MDRD (S/P/Bld) [Vol rate/Area] mL/min/{1.73_m2} Normal >60 [facility] Comment on above: Result Comment: Sour ce- MDRD equation with creatinine calibration to IDMS(NKDEP) eGFR not recommended for drug dose adjustment Performed By: #### P T, CMP3M, HEMDF, MG3 #### [place] [address] [address] [place], [place] Glucose [Mass/Vol] 94 mg/dL Normal 70-100 [facility] Comment on above: Performed By: #### P T, CMP3M, HEMDF, MG3 #### [place] [address] [address] [place], [place] Protein [Mass/Vol] 7.9 g/dL Normal 6.3-8.2 [facility] Comment on above: Performed By: #### P T, CMP3M, HEMDF, MG3 #### [place] [address] [place], [place] Urea nitrogen [Mass/Vol] 10 mg/dL Normal 7-20 [facility] Comment on above: Performed By: #### P T, CMP3M, HEMDF, MG3 #### [place] [address] [address] [place], [place] Potassium [Moles/Vol] 4.0 mmol/L Normal 3.5-5.1 [facility] Comment on above: Performed By: #### P T, CMP3M, HEMDF, MG3 #### [place] [address] [address] [place], [place] Albumin [Mass/Vol] 4.2 g/dL Normal 3.5-5.0 [facility] Comment on above: Performed By: #### P T, CMP3M, HEMDF, MG3 #### [place] [address] [address] [place], [place] Sodium [Moles/Vol] 140 mmol/L Normal 135-145 [facility] Comment on above: Performed By: #### P T, CMP3M, HEMDF, MG3 #### [facility] [address] [place] [address] Chloride [Moles/Vol] 109 mmol/L High 98-107 [facility] Comment on above: Performed By: #### P T, CMP3M, HEMDF, MG3 #### [facility] [address] [place] [address] Comprehensive Metabolic Pane l w/ Reflex to MGon 05-22-2019 Albumin [Mass/Vol] 4.2 g/dL 3.5 - 5 g/dL [place] ALP [Catalytic activity/Vol] 103 U/L 38 - 126 U/L [place] ALT [Catalytic activity/Vol] 15 U/L 13 - 69 U/L [place] Anion gap [Moles/Vol] 10 mmol/L [place] AST [Catalytic activity/Vol] 19 U/L 15 - 46 U/L [place] Bilirubin Ql (U) 0.7 mg/dL 0.2 - 1.3 mg/dL [place] Calcium [Mass/Vol] 9.1 mg/dL 8.4 - 10. 4 mg/dL [place] Chloride [Moles/Vol] 109 mmol/L High 98 - 10 7 mmol/L [place] CO2 [Moles/Vol] 21 mmol/L Low 22 - 30 mmol/L [place] Creatinine [Mass/Vol] 0.67 mg/dL 0.52 - 1.25 mg/dL [place] EGFR IF NonAfrican [place] >60.0 >60 mL/min [place] Comment on above: Source- MDRD equatio n with creatinine calibration to IDMS(NKDEP) eGFR not recommended for drug dose adjustment GFR/1.73 sq M predicted among blacks MDRD (S/P/Bld) [Vol rate/Area] mL/min/{1.73_m2} >60 mL/min [place] Glucose [Mass/Vol] 94 mg/dL 70 - 100 mg/dL [place] Interpretation and review of laboratory results Abnormal [place] Potassium [Moles/Vol] 4.0 mmol/L 3.5 - 5.1 mmol/L [place] Protein [Mass/Vol] 7.9 g/dL 6.3 - 8.2 g/dL [place] Sodium [Moles/Vol] 140 mmol/L 135 - 145 mmol/L [place] Urea nitrogen [Mass/Vol] 10 mg/dL 7 - 20 mg/dL [place] HCG,Urine Qualon 05-22-2019 Beta HCG ( test) Ql (U) Negative Normal Negative [facility] Comment on above: Result Comment: Preg arya is the most common reason for HCG in urine, although choriocarcinoma, hydatidiform mole, and certain nontropho- blastic malignancies also result in detectable urinary HCG levels. Sensitivity = 20mIU/mL. Performed By: #### T HC4, CSFP3, DRGA4, CSFG3, HCGUR, CSFCC #### [place] [address] [address], [place] Hemogram w/ Autodiffon 05-22 Abs Baso Cnt 0.1 10*3/uL Normal 0.0-0.2 [facility] Comment on above: Performed By: #### P T, CMP3M, HEMDF, MG3 #### [place] [address] [address] [place], [place] Abs Neutrophile Cnt 9.8 10*3/uL High 1.8-7.0 [facility] Comment on above: Performed By: #### P T, CMP3M, HEMDF, MG3 #### [place] [address] [place], [place] Basophils/100 WBC (Bld) 0.7 % Normal 0.0-2.0 [facility] Comment on above: Performed By: #### P T, CMP3M, HEMDF, MG3 #### [place] [address] [place], [place] Eosinophils (Bld) [#/Vol] 0.1 10*3/uL Normal 0.0-0.5 [facility] Comment on above: Performed By: #### P T, CMP3M, HEMDF, MG3 #### [place] [address] [address] [place], [place] Eosinophils/100 WBC (Bld) 0.7 % Low 1.0-6.0 [facility] Comment on above: Performed By: #### P T, CMP3M, HEMDF, MG3 #### [place] [address] [place], [place] Erythrocyte distribution width (RBC) [Ratio] 13.4 % Normal 11.5-14.5 [facility] Comment on above: Performed By: #### P T, CMP3M, HEMDF, MG3 #### [place] [address] [address] [place], [place] Granulocytes/100 WBC (Bld) 69.0 % Normal 40.0-80.0 [facility] Comment on above: Performed By: #### P T, CMP3M, HEMDF, MG3 #### [place] [address] [address] [place], [place] Hematocrit (Bld) [Volume fraction] 42.2 % Normal 35.0-47.0 [facility] Comment on above: Performed By: #### P T, CMP3M, HEMDF, MG3 #### [place] [address] [address] [place], [place] Hemoglobin (Bld) [Mass/Vol] 14.4 g/dL Normal 11.7-16.0 [facility] Comment on above: Performed By: #### P T, CMP3M, HEMDF, MG3 #### [place] [address] [address] [place], [place] Lymphocytes (Bld) [#/Vol] 3.2 10*3/uL Normal 1.0-4.3 [facility] Comment on above: Performed By: #### P T, CMP3M, HEMDF, MG3 #### [place] [address] [place], [place] Lymphocytes/100 WBC (Bld) 22.2 % Normal 20.0-40.0 [facility] Comment on above: Performed By: #### P T, CMP3M, HEMDF, MG3 #### [place] [address] [address] [place], [place] MCH (RBC) [Entitic mass] 28.1 pg Normal 26.0-34.0 [facility] Comment on above: Performed By: #### P T, CMP3M, HEMDF, MG3 #### [place] [address] [address] [place], [place] MCHC (RBC) [Mass/Vol] 34.2 % Normal 32.0-36.0 [facility] Comment on above: Performed By: #### P T, CMP3M, HEMDF, MG3 #### [place] [address] [address] [place], [place] MCV (RBC) [Entitic vol] 82.1 fL Normal 79.0-98.0 [facility] Comment on above: Performed By: #### P T, CMP3M, HEMDF, MG3 #### [place] [address] [address] [place], [place] Monocytes (Bld) [#/Vol] 1.1 10*3/uL High 0.0-0.8 [facility] Comment on above: Performed By: #### P T, CMP3M, HEMDF, MG3 #### [place] [address] [place], [place] Monocytes/100 WBC (Bld) 7.4 % Normal 2.0-10.0 [facility] Comment on above: Performed By: #### P T, CMP3M, HEMDF, MG3 #### [place] [address] [address] [place], [place] Platelet mean volume (Bld) [Entitic vol] 7.6 fL Normal 7.4-10.4 [facility] Comment on above: Performed By: #### P T, CMP3M, HEMDF, MG3 #### [address] Platelets (Bld) [#/Vol] 271 10*3/uL Normal 140-440 [facility] Comment on above: Performed By: #### P T, CMP3M, HEMDF, MG3 #### [facility] [address], [place] RBC (Bld) [#/Vol] 5.14 10*6/uL Normal 3.80-5.20 [facility] Comment on above: Performed By: #### P T, CMP3M, HEMDF, MG3 #### [facility] [address] [place] [address] WBC (Bld) [#/Vol] 14.2 10*3/uL High 3.6-10.7 [facility] Comment on above: Performed By: #### P T, CMP3M, HEMDF, MG3 #### [facility] [address], [place] MRA HEAD WO CONTRASTon 05-22 Patient Name: OMAR SERRANO ---MRI--- Exam Date/Time 05/22/2019 22:25:30 EDT Exam MRA Head w/o Contrast Ordering Physician Shawna TEMPLETON JOHN C Accession Number [id number] CPT4 Codes 50531 () Reason For Exam headache Report MRI [...] WENDELL Transcribed Date and Time: 05/22/2019 10:40 [place], [place] [facility] Incoming Radiology Results From [facility] - 05/22/2019 10:42 PM EDT Patient Name: OMAR SERRANO ---MRI--- Exam Date/Time 05/22/2019 22:25:30 EDT Exam MRA Head w/o Contrast Ordering Physician Shawna TEMPLETON JOHN C Accession Number [id number] CPT4 Codes 20768 () Reason For Exam headache Report MRI [...] WENDELL Transcribed Date and Time: 05/22/2019 10:40 [place] MRA NECK W WO CONTRASTon [facility] Incoming Radiology Results From [facility] - 05/22/2019 10:42 PM EDT Patient Name: OMAR SERRANO ---MRI--- Exam Date/Time 05/22/2019 22:25:30 EDT Exam MRA Neck w/ + w/o Contrast Ordering Physician Shawna TEMPLETON JOHN C Accession Number [id number] CPT4 Codes 29938 () Reason For Exam headache Report MRI [...] WENDELL Transcribed Date and Time: 05/22/2019 10:40 [place] Patient Name: OMAR SERRANO ---MRI--- Exam Date/Time 05/22/2019 22:25:30 EDT Exam MRA Neck w/ + w/o Contrast Ordering Physician Shawna TEMPLETON JOHN C Accession Number [id number] CPT4 Codes 55023 () Reason For Exam headache Report MRI [...] WENDELL Transcribed Date and Time: 05/22/2019 10:40 [place] MRI BRAIN W WO CONTRASTon [facility] Incoming Radiology Results From [facility] - 05/22/2019 10:42 PM EDT Patient Name: OMAR SERRANO ---MRI--- Exam Date/Time 05/22/2019 22:25:30 EDT Exam MRI Brain w/ + w/o Contrast Ordering Physician Shawna TEMPLETON JOHN C Accession Number [id number] CPT4 Codes 81594 () Reason For Exam headache Report MRI [...] WENDELL Transcribed Date and Time: 05/22/2019 10:40 [place] Patient Name: OMAR SERRANO ---MRI--- Exam Date/Time 05/22/2019 22:25:30 EDT Exam MRI Brain w/ + w/o Contrast Ordering Physician Shawna TEMPLETON, MAURICIO Elkins Accession Number [id number] CPT4 Codes 26864 () Reason For Exam headache Report MRI [...] WENDELL Transcribed Date and Time: 05/22/2019 10:40 [facility], [place] MRV HEAD W WO CONTRASTon Patient Name: OMAR SERRANO ---MRI--- Exam Date/Time 05/22/2019 22:25:30 EDT Exam MRV Head Ordering Physician Shawna TEMPLETON JOHN C Accession Number [id number] CPT4 Codes 89252 () Reason For Exam headache Report MRI [...] WENDELL Transcribed Date and Time: 05/22/2019 10:40 [facility], [place] [facility] Incoming Radiology Results From [facility] - 05/22/2019 10:42 PM EDT Patient Name: OMAR SERRANO ---MRI--- Exam Date/Time 05/22/2019 22:25:30 EDT Exam MRV Head Ordering Physician Shawna TEMPLETON JOHN C Accession Number [id number] CPT4 Codes 10129 () Reason For Exam headache Report MRI [...] WENDELL Transcribed Date and Time: 05/22/2019 10:40 [place] Magnesiumon 05-22-2019 Magnesium [Mass/Vol] 2.2 mg/dL Normal 1.6-2.3 [facility] Comment on above: Performed By: #### P T, CMP3M, HEMDF, MG3 #### [place] [address] [place] [address] Magnesium [Mass/Vol] 2.2 mg/dL 1.6 - 2 .3 mg/dL [place] Otheron 05-22-2019 Test Performed by [facility], [address] [place] [address] , Urineon 9 Beta HCG ( test) Ql (U) Negative Negative NA [place] Comment on above: is the mos t common reason for HCG in urine, although choriocarcinoma, hydatidiform mole, and certain nontropho- blastic malignancies also result in detectable urinary HCG levels. Sensitivity = 20mIU/mL. Test Performed by [facility], [address] [place] [address] Prothrombin Timeon 9 INR Coag (PPP) [Relative time] 1.0 Normal 0.9-1.1 [facility] Comment on above: Result Comment: Willie [...] #### P T, CMP3M, HEMDF, MG3 #### [facility] [address] [place] [address] PT Coag (PPP) [Time] 10.6 s Normal 9.0-12.0 [facility] Comment on above: Result Comment: . Performed By: #### P T, CMP3M, HEMDF, MG3 #### [address] [address] Protime-INRon 05-22-2019 INR Coag (PPP) [Relative time] 1.0 {INR} [place] Comment on above: Recommended Anticoag ulant [...] [Time] 10.6 s 9 - 12 s [place], [place] Comment on above: . Test Performed by [facility], [address] [place] [id number] [place] [address] URINE DRUG SCREENon 05-22-20 19 Amphetamines, urine Negative [facility], [place] Barbiturates, Ur Negative [facility], [place] Benzodiazepine Ur Qual Negative [facility], [place] Cocaine Metabolites, Ur Negative [facility], [place] Methadone, Urine Negative [facility], [place] Opiates, Urine Positive [facility], [place] Oxycodone Screen, Ur Negative [facility], [place] PCP, Urine Negative [facility], [place] Comment on above: The expected value f [...] confirmation under separate order. Test Performed by [facility], [address] [place] [address] [facility], [place] [facility] Note on 03-22-2017 [facility] Note Normal [facility] Patient Summary Documentson 03-22-2017 Patient Summary Documents Normal [facility] XR CHEST 2 VIEWSon 7 [...] PM Sign Date: 03/22/2017 12:39:16 PM Normal [facility] No Panel Information [facility] Vital Signs Date Time Vital Sign Value Performing Clinician Facility 02-16-2025 13:02-0400 Body mass index (BMI) [Ratio] 38.82 kg/m2 Rylee Mcdonald APRN.KAYY Work Phone: [facility] 02-16-2025 13:02-0400 Body temperature 98.49 [degF] Rylee Mcdonald APRN.[employer] Work Phone: [facility] 02-16-2025 13:02-0400 Body weight 109.1 kg Rylee Mcdonald APRN.[employer] Work Phone: [facility] 02-16-2025 13:02-0400 Diastolic blood pressure 90 mm[Hg] Rylee Mcdonald APRN.[employer] Work Phone: [facility] 02-16-2025 13:02-0400 Heart rate 90 /min Rylee Mcdonald APRN.[employer] Work Phone: [facility] 02-16-2025 13:02-0400 Respiratory rate 18 /min Rylee Mcdonald APRN.[employer] Work Phone: [facility] 02-16-2025 13:02-0400 SaO2% (BldA) [Mass fraction] 99 % Rylee Mcdonald PERINATAL SPECIALIST.[employer] Work Phone: [facility] 02-16-2025 13:02-0400 Systolic blood pressure 130 mm[Hg] Rylee Mcdonald PERINATAL SPECIALIST.[employer] Work Phone: [facility] 02-13-2025 10:37-0400 Body height 167.6 cm Omar Ferreira PERINATAL SPECIALIST.[employer] Work Phone: [facility] 02-13-2025 10:37-0400 Body mass index (BMI) [Ratio] 39.08 kg/m2 Omar Miles PERINATAL SPECIALIST.[employer] Work Phone: [facility] 02-13-2025 10:37-0400 Body temperature 98.49 [degF] Omar Miles PERINATAL SPECIALIST.[employer] Work Phone: [facility] 02-13-2025 10:37-0400 Body weight 109.82 kg Omarbri Ferreira PERINATAL SPECIALIST.[employer] Work Phone: [facility] 02-13-2025 10:37-0400 Diastolic blood pressure 94 mm[Hg] Omar Miles PERINATAL SPECIALIST.[employer] Work Phone: [facility] 02-13-2025 10:37-0400 Heart rate 90 /min Omar Miles PERINATAL SPECIALIST.[employer] Work Phone: [facility] 02-13-2025 10:37-0400 Systolic blood pressure 147 mm[Hg] Omar Hanna PERINATAL SPECIALIST.[employer] Work Phone: [facility] 01-22-2025 13:53-0400 Body height 167.6 cm [facility] 9 Work Phone: [facility] 01-22-2025 13:53-0400 Body mass index (BMI) [Ratio] 40.67 kg/m2 [facility] 9 Work Phone: [facility] 01-22-2025 13:53-0400 Body temperature 97.59 [degF] [facility] 9 Work Phone: [facility] 01-22-2025 13:53-0400 Body weight 114.3 kg [facility] 9 Work Phone: [facility] 01-22-2025 13:53-0400 Diastolic blood pressure 89 mm[Hg] [facility] 9 Work Phone: [facility] 01-22-2025 13:53-0400 Heart rate 82 /min [facility] 9 Work Phone: [facility] 01-22-2025 13:53-0400 SaO2% (BldA) [Mass fraction] 98 % Pac 9 Work Phone: [facility] 01-22-2025 13:53-0400 Systolic blood pressure 149 mm[Hg] [facility] 9 Work Phone: [facility] 11-10-2024 13:41-0500 Body height 167.6 cm Jaswant Askew MD Work Phone: [facility] 11-10-2024 13:41-0500 Body mass index (BMI) [Ratio] 40.35 kg/m2 Jaswant Askew MD Work Phone: [facility] 11-10-2024 13:41-0500 Body temperature 97.2 [degF] Jaswant Askew MD Work Phone: [facility] 11-10-2024 13:41-0500 Body weight 113.4 kg Jaswant Askew MD Work Phone: [facility] 11-10-2024 13:41-0500 Diastolic blood pressure 96 mm[Hg] Jaswant Askew MD Work Phone: [facility] 11-10-2024 13:41-0500 Heart rate 79 /min Jaswant Askew MD Work Phone: [facility] 11-10-2024 13:41-0500 Systolic blood pressure 168 mm[Hg] Jaswant Askew MD Work Phone: [facility] 09-26-2024 13:12-0500 Body height 167.6 cm Rhianna Campo MD Work Phone: [facility] 09-26-2024 13:12-0500 Body mass index (BMI) [Ratio] 38.74 kg/m2 Rhianna Campo MD Work Phone: [facility] 09-26-2024 13:12-0500 Body weight 108.86 kg Rhianna Campo MD Work Phone: [facility] 09-19-2024 18:49-0500 Blood Pressure Cuff Size ROC BURT MD [facility] 09-19-2024 18:49-0500 Blood Pressure Location ROC BURT MD [facility] 09-19-2024 18:49-0500 Blood Pressure Method ROC BURT MD [facility] 09-19-2024 18:49-0500 Body temperature 98.42 [degF] ROC BURT MD [facility] 09-19-2024 18:49-0500 Diastolic Blood Pressure Non-Invasive 100 mm[Hg] ROC BURT MD [facility] 09-19-2024 18:49-0500 Heart rate 89 /min ROC BURT MD [facility] 09-19-2024 18:49-0500 Respiratory rate 16 /min ROC BURT MD [facility] 09-19-2024 18:49-0500 Systolic Blood Pressure Non-Invasive 162 mm[Hg] ROC BURT MD [facility] 08-25-2024 01:14-0500 Diastolic Blood Pressure Non-Invasive 98 mm[Hg] BROOK OLIVER MD [facility] 08-25-2024 01:14-0500 Heart rate 89 /min BROOK OLIVER MD [facility] 08-25-2024 01:14-0500 Reason For Taking VItal Signs BROOK OLIVER MD [facility] 08-25-2024 01:14-0500 Respiratory rate 15 /min BROOK OLIVER MD [facility] 08-25-2024 01:14-0500 Systolic Blood Pressure Non-Invasive 142 mm[Hg] BROOK OLIVER MD [facility] 08-25-2024 00:45-0500 Diastolic Blood Pressure Non-Invasive 87 mm[Hg] BROOK OLIVER MD [facility] 08-25-2024 00:45-0500 Heart rate 76 /min BROOK OLIVER MD [facility] 08-25-2024 00:45-0500 Reason For Taking VItal Signs BROOK OLIVER MD [facility] 08-25-2024 00:45-0500 Respiratory rate 16 /min BROOK OLIVER MD [facility] 08-25-2024 00:45-0500 Systolic Blood Pressure Non-Invasive 139 mm[Hg] BROOK OLIVER MD [facility] 08-24-2024 23:35-0500 Body temperature 97.7 [degF] BROOK OLIVER MD [facility] 08-24-2024 23:35-0500 Diastolic Blood Pressure Non-Invasive 92 mm[Hg] BROOK OLIVER MD [facility] 08-24-2024 23:35-0500 Heart rate 92 /min BROOK OLIVER MD [facility] 08-24-2024 23:35-0500 Respiratory rate 16 /min BROOK OLIVER MD [facility] 08-24-2024 23:35-0500 Systolic Blood Pressure Non-Invasive 186 mm[Hg] BROOK OLIVER MD [facility] 07-25-2024 10:49-0500 Body height 167.6 cm Pacc 1 Work Phone: [facility] 07-25-2024 10:49-0500 Body mass index (BMI) [Ratio] 39.5 kg/m2 Pacc 1 Work Phone: [facility] 07-25-2024 10:49-0500 Body temperature 96.8 [degF] Pacc 1 Work Phone: [facility] 07-25-2024 10:49-0500 Body weight 111 kg Pacc 1 Work Phone: [facility] 07-25-2024 10:49-0500 Diastolic blood pressure 89 mm[Hg] Pacc 1 Work Phone: [facility] 07-25-2024 10:49-0500 Heart rate 79 /min Pacc 1 Work Phone: [facility] 07-25-2024 10:49-0500 Respiratory rate 20 /min Pacc 1 Work Phone: [facility] 07-25-2024 10:49-0500 SaO2% (BldA) [Mass fraction] 100 % Pacc 1 Work Phone: [facility] 07-25-2024 10:49-0500 Systolic blood pressure 135 mm[Hg] Pacc 1 Work Phone: [facility] 07-24-2024 18:50-0500 Diastolic Blood Pressure Non-Invasive 91 mm[Hg] BROOK OLIVER MD [facility] 07-24-2024 18:50-0500 Heart rate 92 /min BROOK OLIVER MD [facility] 07-24-2024 18:50-0500 Respiratory rate 16 /min BROOK OLIVER MD [facility] 07-24-2024 18:50-0500 Systolic Blood Pressure Non-Invasive 137 mm[Hg] BROOK OLIVER MD [facility] 07-24-2024 16:06-0500 Body height 167.6 cm BROOK OLIVER MD [facility] 07-24-2024 16:06-0500 Body temperature 97.16 [degF] BROOK OLIVER MD [facility] 07-24-2024 16:06-0500 Body weight 106.8 kg BROOK OLIVER MD [facility] 07-24-2024 16:06-0500 Diastolic Blood Pressure Non-Invasive 99 mm[Hg] BROOK OLIVER MD [facility] 07-24-2024 16:06-0500 Heart rate 89 /min BROOK OLIVER MD [facility] 07-24-2024 16:06-0500 Respiratory rate 16 /min BROOK OLIVER MD [facility] 07-24-2024 16:06-0500 Systolic Blood Pressure Non-Invasive 140 mm[Hg] BROOK OLIVER MD [facility] 07-15-2024 17:22-0500 Diastolic Blood Pressure Non-Invasive 102 mm[Hg] DR DELROY ZHOU MD [facility] 07-15-2024 17:22-0500 Heart rate 94 /min DR DELROY ZHOU MD [facility] 07-15-2024 17:22-0500 Respiratory rate 16 /min DR DELROY ZHOU MD [facility] 07-15-2024 17:22-0500 Systolic Blood Pressure Non-Invasive 155 mm[Hg] DR DELROY ZHOU MD [facility] 07-15-2024 15:51-0500 Body temperature 98.06 [degF] DR DELROY ZHOU MD [facility] 07-15-2024 15:51-0500 Body weight 108.[address] DELROY ZHOU MD [facility] 07-15-2024 15:51-0500 Diastolic Blood Pressure Non-Invasive 95 mm[Hg] DR DELROY ZHOU MD [facility] 07-15-2024 15:51-0500 Heart rate 100 /min DR DELROY ZHOU MD [facility] 07-15-2024 15:51-0500 Respiratory rate 16 /min DR DELROY ZHOU MD [facility] 07-15-2024 15:51-0500 Systolic Blood Pressure Non-Invasive 141 mm[Hg] DR DELROY ZHOU MD [facility] 06-12-2024 22:43-0400 Diastolic Blood Pressure Non-Invasive 90 mm[Hg] OMEGA HARRIS MD [facility] 06-12-2024 22:43-0400 Heart rate 65 /min OMEGA HARRIS MD [facility] 06-12-2024 22:43-0400 Reason For Taking VItal Signs OMEGA HARRIS MD [facility] 06-12-2024 22:43-0400 Respiratory rate 16 /min OMEGA HARRIS MD [facility] 06-12-2024 22:43-0400 Systolic Blood Pressure Non-Invasive 146 mm[Hg] OMEGA HARRIS MD [facility] 06-12-2024 21:02-0400 Body temperature 98.24 [degF] OMEGA HARRIS MD [facility] 06-12-2024 21:02-0400 Diastolic Blood Pressure Non-Invasive 111 mm[Hg] OMEGA HARRIS MD [facility] 06-12-2024 21:02-0400 Heart rate 77 /min OMEGA HARRIS MD [facility] 06-12-2024 21:02-0400 Respiratory rate 16 /min OMEGA HARRIS MD [facility] 06-12-2024 21:02-0400 Systolic Blood Pressure Non-Invasive 172 mm[Hg] OMEGA HARRIS MD [facility] 06-12-2024 12:25-0400 Diastolic blood pressure 76 mm[Hg] Helwa Taweel PA-C Work Phone: [facility] 06-12-2024 12:25-0400 Heart rate 71 /min Helwa Taweel PA-C Work Phone: [facility] 06-12-2024 12:25-0400 SaO2% (BldA) [Mass fraction] 99 % Helwa Taweel PA-C Work Phone: [facility] 06-12-2024 12:25-0400 Systolic blood pressure 164 mm[Hg] Helwa Taweel PA-C Work Phone: [facility] 06-12-2024 10:50-0400 Body temperature 97.81 [degF] Helwa Taweel PA-C Work Phone: [facility] 06-12-2024 10:50-0400 Respiratory rate 16 /min Helwa Taweel PA-C Work Phone: [facility] 04-27-2024 15:01-0400 Body mass index (BMI) [Ratio] 37.58 kg/m2 Adwoa Mosley PERINATAL SPECIALIST.[employer] MA[employer]GER Work Phone: [facility] 04-27-2024 15:01-0400 Body temperature 98.1 [degF] Adwoa Mosley PERINATAL SPECIALIST.[employer]AIN MANAGER Work Phone: [facility] 04-27-2024 15:01-0400 Body weight 104.8 kg Adwoa Mosley PERINATAL SPECIALIST.[employer] MANAGER Work Phone: [facility] 04-27-2024 15:01-0400 Diastolic blood pressure 90 mm[Hg] Adwoa Mosley PERINATAL SPECIALIST.[employer] MANAGER Work Phone: [facility] 04-27-2024 15:01-0400 Heart rate 70 /min Adwoa Mosley PERINATAL SPECIALIST.[employer] MANAGER Work Phone: [facility] 04-27-2024 15:01-0400 Respiratory rate 18 /min Adwoa Mosley PERINATAL SPECIALIST.[employer] MANAGER Work Phone: [facility] 04-27-2024 15:01-0400 SaO2% (BldA) [Mass fraction] 100 % Adwoa Mosley PERINATAL SPECIALIST.[employer]AIN MANAGER Work Phone: [facility] 04-27-2024 15:01-0400 Systolic blood pressure 132 mm[Hg] Adwoa Mosley APRN.[employer] MANAGER Work Phone: [facility] 04-17-2024 09:38-0400 Body height 167 cm Eulalia Hughesk PA-C Work Phone: [facility] 04-17-2024 09:38-0400 Body mass index (BMI) [Ratio] 38.12 kg/m2 Eulalia Glassubek PA-C Work Phone: [facility] 04-17-2024 09:38-0400 Body temperature 98.01 [degF] Eulalia Jakubek PA-C Work Phone: [facility] 04-17-2024 09:38-0400 Body weight 106.3 kg Eulalia Glassubek PA-C Work Phone: [facility] 04-17-2024 09:38-0400 Diastolic blood pressure 95 mm[Hg] Eulalia Glassubek PA-C Work Phone: [facility] Comment on above: provider notified 04-17-2024 09:38-0400 Heart rate 65 /min Eulalia Glassubek PA-C Work Phone: [facility] 04-17-2024 09:38-0400 Respiratory rate 18 /min Eulalia Jakubek PA-C Work Phone: [facility] 04-17-2024 09:38-0400 SaO2% (BldA) [Mass fraction] 100 % Eulalia Glassubek PA-C Work Phone: [facility] 04-17-2024 09:38-0400 Systolic blood pressure 140 mm[Hg] Eulalia Jakubek PA-C Work Phone: [facility] Comment on above: provider notified 03-25-2024 13:50-0400 Body mass index (BMI) [Ratio] 37.97 kg/m2 Adwoa Mosley APRN.[employer] MANAGER Work Phone: [facility] 03-25-2024 13:50-0400 Body temperature 98.49 [degF] Adwoa Dimitri PERINATAL SPECIALIST.[employer] MANAGER Work Phone: [facility] 03-25-2024 13:50-0400 Body weight 106.7 kg Adwoa Mosley PERINATAL SPECIALIST.[employer] MANAGER Work Phone: [facility] 03-25-2024 13:50-0400 Diastolic blood pressure 94 mm[Hg] Adwoa Mosley PERINATAL SPECIALIST.[employer] MANAGER Work Phone: [facility] 03-25-2024 13:50-0400 Heart rate 94 /min Adwoa Mosley PERINATAL SPECIALIST.[employer] MANAGER Work Phone: [facility] 03-25-2024 13:50-0400 Respiratory rate 18 /min Adwoa Mosley PERINATAL SPECIALIST.[employer] MANAGER Work Phone: [facility] 03-25-2024 13:50-0400 SaO2% (BldA) [Mass fraction] 97 % Adwoa Mosley PERINATAL SPECIALIST.[employer] MANAGER Work Phone: [facility] 03-25-2024 13:50-0400 Systolic blood pressure 139 mm[Hg] Adwoa Mosley PERINATAL SPECIALIST.[employer] MANAGER Work Phone: [facility] 02-09-2024 11:05-0400 Diastolic Blood Pressure Non-Invasive 86 mm[Hg] DR JOHN CORDOVA MD [facility] 02-09-2024 11:05-0400 Heart rate 62 /min DR JOHN CORDOVA MD [facility] 02-09-2024 11:05-0400 Respiratory rate 16 /min DR JOHN CORDOVA MD [facility] 02-09-2024 11:05-0400 Systolic Blood Pressure Non-Invasive 142 mm[Hg] DR JOHN CORDOVA MD [facility] 02-09-2024 09:37-0400 Blood Pressure Cuff Size DR JOHN CORDOVA MD [facility] 02-09-2024 09:37-[address] JOHN CORDOVA MD [facility] 02-09-2024 09:37-[address] JOHN CORDOVA MD [facility] 02-09-2024 09:37-0400 Body temperature 97.52 [degF] DR JOHN CORDOVA MD [facility] 02-09-2024 09:37-0400 Diastolic Blood Pressure Non-Invasive 100 mm[Hg] DR JOHN CORDOVA MD [facility] 02-09-2024 09:37-0400 Heart rate 70 /min DR JOHN CORDOVA MD [facility] 02-09-2024 09:37-0400 Respiratory rate 18 /min DR JOHN CORDOVA MD [facility] 02-09-2024 09:37-0400 Systolic Blood Pressure Non-Invasive 148 mm[Hg] DR JOHN CORDOVA MD [facility] 01-28-2024 19:43-0400 Body temperature 98.06 [degF] ROC BURT MD [facility] 01-28-2024 19:43-0400 Body weight 106.8 kg ROC BURT MD [facility] 01-28-2024 19:43-0400 Diastolic Blood Pressure Non-Invasive 87 mm[Hg] ROC BURT MD [facility] 01-28-2024 19:43-0400 Heart rate 75 /min ROC BURT MD [facility] 01-28-2024 19:43-0400 Respiratory rate 16 /min ROC BURT MD [facility] 01-28-2024 19:43-0400 Systolic Blood Pressure Non-Invasive 122 mm[Hg] ROC BURT MD [facility] 12-13-2023 16:16-0400 Body temperature 97.5 [degF] Danielle Hernandez PERINATAL SPECIALIST.[employer] MANAGER Work Phone: [facility] 12-13-2023 16:16-0400 Body weight 104 kg Danielle Hernandze PERINATAL SPECIALIST.[employer] MANAGER Work Phone: [facility] 12-13-2023 16:16-0400 Diastolic blood pressure 96 mm[Hg] Danielle Hernandez PERINATAL SPECIALIST.[employer] MANAGER Work Phone: [facility] 12-13-2023 16:16-0400 Heart rate 83 /min Danielle Hernandez PERINATAL SPECIALIST.[employer] MANAGER Work Phone: [facility] 12-13-2023 16:16-0400 Respiratory rate 18 /min Danielle Hernandez PERINATAL SPECIALIST.[employer] MANAGER Work Phone: [facility] 12-13-2023 16:16-0400 SaO2% (BldA) [Mass fraction] 100 % Danielle Hernandez PERINATAL SPECIALIST.[employer] MANAGER Work Phone: [facility] 12-13-2023 16:16-0400 Systolic blood pressure 146 mm[Hg] Danielle Hernandez PERINATAL SPECIALIST.[employer] MANAGER Work Phone: [facility] 03-05-2023 21:30-0400 Diastolic Blood Pressure Non-Invasive 100 1 ROC BURT MD [facility] 03-05-2023 21:30-0400 Heart rate 84 /min ROC BURT MD [facility] 03-05-2023 21:30-0400 Respiratory rate 18 /min ROC BURT MD [facility] 03-05-2023 21:30-0400 Systolic Blood Pressure Non-Invasive 152 1 ROC BURT MD [facility] 03-05-2023 20:59-0400 Blood Pressure Cuff Size ROC BURT MD [facility] 03-05-2023 20:59-0400 Blood Pressure Location ROC BURT MD [facility] 03-05-2023 20:59-0400 Blood Pressure Method ROC BURT MD [facility] 03-05-2023 20:59-0400 Body temperature 98.6 [degF] ROC BURT MD [facility] 03-05-2023 20:59-0400 Diastolic Blood Pressure Non-Invasive 104 1 ROC BURT MD [facility] 03-05-2023 20:59-0400 Heart rate 84 /min ROC BURT MD [facility] 03-05-2023 20:59-0400 Respiratory rate 18 /min ROC BURT MD [facility] 03-05-2023 20:59-0400 Systolic Blood Pressure Non-Invasive 184 1 ROC BURT MD [facility] 02-12-2023 23:41-0400 Diastolic Blood Pressure Non-Invasive [address] [facility] 02-12-2023 23:41-0400 Heart rate 76 /min [facility] 02-12-2023 23:41-0400 Respiratory rate 13 /min NONE [facility] 02-12-2023 23:41-0400 Systolic Blood Pressure Non-Invasive [address] [facility] 02-12-2023 23:30-0400 Diastolic Blood Pressure Non-Invasive [address] [facility] 02-12-2023 23:30-0400 Respiratory rate 15 /min NONE [facility] 02-12-2023 23:30-0400 Systolic Blood Pressure Non-Invasive [address] [facility] 02-12-2023 23:16-0400 Diastolic Blood Pressure Non-Invasive [address] [facility] 02-12-2023 23:16-0400 Heart rate 72 /min NONE [facility] 02-12-2023 23:16-0400 Systolic Blood Pressure Non-Invasive [address] [facility] 02-12-2023 23:02-0400 Heart rate 87 /min NONE [facility] 02-12-2023 22:48-0400 Body temperature 96.08 [degF] NONE [facility] 02-12-2023 22:45-0400 Respiratory Rate - Anes 0 br/min NONE [facility] 02-12-2023 22:40-0400 Respiratory Rate - Anes 12 br/min NONE [facility] 02-12-2023 22:35-0400 Respiratory Rate - Anes 16 br/min NONE [facility] 02-12-2023 22:30-0400 Body temperature 95.67 [degF] NONE [facility] 02-12-2023 22:25-0400 Body temperature 95.45 [degF] NONE [facility] 02-12-2023 22:20-0400 Body temperature 95.43 [degF] NONE [facility] 02-12-2023 20:29-0400 Body temperature 96.98 [degF] NONE [facility] 02-12-2023 20:29-0400 Heart rate 78 /min NONE [facility] 02-12-2023 20:29-0400 Respiratory rate 21 /min NONE [facility] 02-12-2023 17:27-0400 Body height 167.[address] [facility] 02-12-2023 17:27-0400 Body temperature 98.06 [degF] NONE [facility] 02-12-2023 17:27-0400 Body weight 106.[address] [facility] 02-12-2023 17:27-0400 Heart rate 79 /min NONE [facility] 02-07-2023 19:37-0400 Body temperature 98.24 [degF] DR INDIA TUTTLE MD [facility] 02-07-2023 19:37-0400 Diastolic Blood Pressure Non-Invasive [address] INDIA TUTTLE MD [facility] 02-07-2023 19:37-0400 Heart rate 80 /min DR INDIA TUTTLE MD [facility] 02-07-2023 19:37-0400 Respiratory rate 20 /min DR INDIA TUTTLE MD [facility] 02-07-2023 19:37-0400 Systolic Blood Pressure Non-Invasive [address] INDIA TUTTLE MD [facility] 02-07-2023 17:00-0400 Body temperature 98.42 [degF] DR INDIA TUTTLE MD [facility] 02-07-2023 17:00-0400 Diastolic Blood Pressure Non-Invasive [address] INDIA TUTTLE MD [facility] 02-07-2023 17:00-0400 Heart rate 89 /min DR INDIA TUTTLE MD [facility] 02-07-2023 17:00-0400 Respiratory rate 16 /min DR INDIA TUTTLE MD [facility] 02-07-2023 17:00-0400 Systolic Blood Pressure Non-Invasive [address] INDIA TUTTLE MD [facility] 12-13-2022 15:09-0400 Body temperature 101.41 [degF] Cresencio Athy PA-C Work Phone: [facility] 12-13-2022 15:09-0400 Diastolic blood pressure 88 mm[Hg] Cresencio Athy PA-C Work Phone: [facility] 12-13-2022 15:09-0400 Heart rate 120 /min Cresencio Athy PA-C Work Phone: [facility] 12-13-2022 15:09-0400 Respiratory rate 19 /min Cresencio Athy PA-C Work Phone: [facility] 12-13-2022 15:09-0400 SaO2% (BldA) [Mass fraction] 98 % Cresencio Athy PA-C Work Phone: [facility] 12-13-2022 15:09-0400 Systolic blood pressure 150 mm[Hg] Cresencio Athy PA-C Work Phone: [facility] 05-26-2019 21:00-0400 BP Diastolic 81 mm[Hg] [facility] [place] 05-26-2019 21:00-0400 BP Systolic 124 mm[Hg] [facility] [place] 05-26-2019 21:00-0400 Pulse (Heart Rate) 81 /min [facility] 05-26-2019 21:00-0400 Pulse Oximetry 100 % [facility] [place] 05-26-2019 17:35-0400 Respiratory Rate 18 /min [facility] 05-26-2019 15:11-0400 BMI (Body Mass Index) 37.93 kg/m2 [facility] 05-26-2019 15:11-0400 Body Temperature 97.9 [degF] [facility] 05-26-2019 15:11-0400 Body weight 106.59 kg [facility] [place] 05-26-2019 15:11-0400 Height 167.6 cm [facility] [place] 05-25-2019 09:05-0400 Body Temperature 99.1 [degF] [facility] [place] 05-25-2019 09:05-0400 BP Diastolic 79 mm[Hg] [facility], [place] 05-25-2019 09:05-0400 BP Systolic 121 mm[Hg] [facility] 05-25-2019 09:05-0400 Pulse (Heart Rate) 70 /min [facility] 05-25-2019 09:05-0400 Pulse Oximetry 98 % [facility] 05-25-2019 09:05-0400 Respiratory Rate 18 /min [facility] 05-24-2019 06:15-0400 BMI (Body Mass Index) 37.12 kg/m2 [place], [place] 05-24-2019 06:15-0400 Body weight 104.33 kg [facility] 05-22-2019 18:34-0400 Height 167.6 cm [place], [place] Encounters Encounter Date Encounter Type Care Provider Facility Start: 02-24-2025 End: 02-24-2025 Admission to same day surgery center Omar Ferreira APRN.CNP Work Phone: General Surgery Comment on above: Postoperative visit (Primary Dx) Start: 02-24-2025 End: 02-24-2025 Telemedicine consultation with patient Omar Ferreira NURA Work Phone: General Surgery Start: 02-16-2025 End: 02-16-2025 Patient encounter procedure Rylee Mcdonald PERINATAL SPECIALIST.[employer] MANAGER Work Phone: [facility] Comment on above: Left wrist pain (Bailey stephon Dx) Start: 02-16-2025 End: 02-16-2025 Subsequent hospital visit by physician Xr [facility] Work Phone: Radiology Comment on above: Left wrist pain [M25 .532] Start: 02-16-2025 End: 02-16-2025 ambulatory MARZENA BANSK Facility:[facility] Start: 02-13-2025 End: 02-16-2025 ambulatory OMAR FERREIRA Facility:[facility] Start: 02-13-2025 End: 02-13-2025 Patient encounter procedure Omar Ferreira PERINATAL SPECIALIST.[employer]OUNTAIN MANAGER Work Phone: General Surgery Comment on above: Postoperative visit (Primary Dx) Start: 02-11-2025 End: 02-11-2025 ambulatory Tami Botello RN NURSE [facility] Comment on above: Abdominal Pain Start: 02-11-2025 End: 02-11-2025 Emergency department patient visit Jessetessie Abdullahi Facility:[facility] Start: 02-06-2025 End: 02-08-2025 Evaluation and management of inpatient JASWANT ASKEW Facility:[facility] Start: 02-02-2025 End: 02-02-2025 Emergency department patient visit No Primary Care Physician Facility:[facility] Start: 02-02-2025 End: 02-02-2025 ambulatory Norma Reddy RN NURSE [facility]AUFFEUR Comment on above: Toothache Start: 01-22-2025 End: 01-22-2025 ambulatory DE GALLEGOS Facility:[facility] Start: 01-22-2025 End: 01-22-2025 Admission to establishment Pac Main 9 Work Phone: Pre Anesthesia Start: [...] Start: 01-22-2025 End: 01-22-2025 Preprocedural examination done [facility] Work Phone: [facility] Work Phone: Start: 01-22-2025 End: 01-22-2025 ambulatory OMAR FERREIRA Facility:[facility] Start: 01-22-2025 Encounter for other preprocedural examination MIKAEL COLÓN [facility] Start: 01-13-2025 Encounter for genera l adult medical examination without abnormal findings SUGEY ALLAN [facility] Start: 01-13-2025 End: 01-13-2025 ambulatory Sugey Allan APRN.CNP Work Phone: NEUROLOGY Comment on above: IIH (idiopathic intr acranial hypertension) (Primary Dx); Healthcare maintenance Start: 01-13-2025 End: 01-13-2025 Patient encounter status Sugey Allan APRN.CNP Work Phone: [facility] Start: 01-13-2025 End: 01-13-2025 Telemedicine consultation with patient Sugey Allan APRN.CNP Work Phone: NEUROLOGY Start: 01-08-2025 ambulatory SUGEY ALLAN Facilit y:[facility] Start: 01-08-2025 End: 01-08-2025 Subsequent hospital visit by physician Mri 6 Radio Main Q (I-Stat/1.5t/3t) Work Phone: MRI Q Comment on above: Intracranial vascula r stenosis [I67.9] Start: 12-26-2024 End: 12-26-2024 Emergency department patient visit NONE PHYSICIAN Facility:[facility] Start: 11-14-2024 End: 11-14-2024 E-mail encounter from caregiver Chula Morton MD Work Phone: [facility] Start: 11-14-2024 End: 11-14-2024 Patient encounter procedure Chula Morton MD Work Phone: [facility] Comment on above: Cerebrovascular Neur ology Appointment Reminder Start: 11-12-2024 End: 11-13-2024 ambulatory Jaswant Askew MD Work Phone: [facility] Comment on above: 02.06.25 Cure (Robot ic Complex AWR 5 hours los 2) Start: 11-12-2024 End: 11-13-2024 Preprocedural examination done Jaswant Askew MD Work Phone: [facility] Start: 11-10-2024 End: 11-10-2024 Patient encounter procedure [...] Start: 11-10-2024 End: 11-10-2024 ambulatory JASWANT ASKEW Facility:[facility] Start: 10-14-2024 End: 10-14-2024 Telephone encounter Sugey Allan APRN.CNP Work Phone: [facility] Start: 10-10-2024 End: 10-10-2024 E-mail encounter from caregiver Sugey Allan APRN.CNP Work Phone: [facility] Start: 10-10-2024 End: 10-10-2024 Follow-up encounter Sugey Allan APRN.CNP Work Phone: [facility] Comment on above: Follow up Start: 10-08-2024 End: 10-08-2024 Social Work Sue CAVAZOS Psychiatry Comment on above: IIH (idiopathic intr acranial hypertension) (Primary Dx); Other complicated headache syndrome; Intracranial vascular stenosis; Papilledema associated with increased intracranial pressure Start: 10-06-2024 End: 10-06-2024 Patient Update Chula Morton MD Work Phone: [facility] Comment on above: medication refill [employer] - [employer] ther (Medications) IIH (idiopathic intr acranial hypertension) (Primary Dx); Other localized visual field defect, left eye; Pulsatile tinnitus; Disorder of intracranial venous sinus Start: 09-30-2024 End: 10-08-2024 Refill Sugey Allan APRN.CNP Work Phone: [facility] Comment on above: Refill Request Start: 09-26-2024 End: 10-02-2024 [facility] Rhianna Campo MD Work Phone: Endocrinology [place] Comment on above: Central adiposity (P rimary Dx); IIH (idiopathic intracranial hypertension); Episode of recurrent major depressive disorder, unspecified depression episode severity (HCC); Palpitations; BMI 38.0-38.9,adult; Avoidant-restrictive food intake disorder (ARFID); Disturbance in sleep behavior; Umbilical hernia without obstruction or gangrene Refill Request Appointment Start: 09-22-2024 End: 09-22-2024 ambulatory NONE PHYSICIAN Facility[facility] Start: 09-22-2024 End: 09-22-2024 Patient encounter procedure SEEMA BULLOCK DO [facility] Start: 09-19-2024 End: 09-19-2024 Emergency department patient visit ROC BURT MD [facility] Start: 09-02-2024 End: 09-02-2024 Telephone encounter Chula Morton MD Work Phone: [facility] Comment on above: Opened In Error (debbi bowens be refill request) Refill Request Start: 08-29-2024 ambulatory NONE PHYSICIAN Facility :[facility] Start: 08-24-2024 End: 08-25-2024 Emergency department patient visit NONE PHYSICIAN Facility:[facility] Start: 08-14-2024 End: 08-14-2024 Emergency department patient visit No Primary Care Physician Facility:[facility] Start: 08-06-2024 End: 08-06-2024 Telephone encounter Murphy Kincaid MD Work Phone: Endovascular Center Start: 07-29-2024 Evaluation and manag ement of inpatient CHULA MORTON Facility:[facility] Start: 07-25-2024 End: 07-25-2024 Preprocedural examination done [place] [address] Work Phone: [facility] Work Phone: Start: 07-25-2024 Encounter for other preprocedural examination UNKNOWN PROVIDER [facility] Start: 07-25-2024 End: 07-25-2024 PAT [place] [address] Work Phone: Pre Anesthesia Comment on above: [...] Emergency department patient visit BROOK OLIVER MD [facility] Start: 07-24-2024 End: 07-24-2024 Telephone encounter Chula Morton MD Work Phone: [facility] Comment on above: Symptoms (patient ca lled stating she was recently put on blood thinners and can't hardly walk, started 3 days ago and it's worse today, patient also states she has a headache /) Start: 07-15-2024 End: 07-15-2024 Emergency department patient visit DR DELROY ZHOU MD [facility] Start: 07-15-2024 End: 07-15-2024 Telephone encounter Nicolas Lopez MD Work Phone: [facility] Start: 07-02-2024 End: 07-02-2024 Emergency department patient visit No Primary Care Physician Facility:[facility] Start: 07-02-2024 End: 07-02-2024 lalita COLÓN Facility:[facility] Start: 07-02-2024 End: 07-02-2024 Patient encounter procedure Mikael Colón MD Work Phone: Ophthalmology Comment on above: IIH (idiopathic intr acranial hypertension) (Primary Dx); Other localized visual field defect, bilateral; Pulsatile tinnitus; Paresthesias; Nephrolithiasis Start: 06-12-2024 End: 06-12-2024 Emergency department patient visit OMEGA HARRIS MD [facility] Start: 06-12-2024 End: 06-12-2024 E-mail encounter from caregiver Chula Morton MD Work Phone: Endovascular Center Start: 06-12-2024 End: 06-12-2024 Subsequent hospital visit by physician Angelo Pascual PA-C Work Phone: [place] [phone] Comment on above: IIH (idiopathic intr acranial [...] End: 05-15-2024 Subsequent hospital visit by physician [place] [employer] Work Phone: MRI [...] 04-28-2024 End: 04-28-2024 Emergency department patient visit No Primary Care Physician Facility:[facility] Start: 04-27-2024 End: 04-27-2024 ambulatory MIKAEL COLÓN Facility:[facility] Start: 04-27-2024 End: 04-27-2024 Patient encounter procedure Adwoa Mosley APRN.CNP Work Phone: [facility] Comment on above: Injury of left wrist , initial encounter (Primary Dx) Start: 04-21-2024 ambulatory Eulalia villalpando PA-C Work Phone: [facility] Comment on above: Scheduling. Start: 04-17-2024 End: 04-17-2024 ambulatory EULALIA JUSTICE Facility:[facility] Start: 04-17-2024 End: 04-17-2024 Patient encounter procedure Eulalia MOSES-C Work Phone: [facility] Comment on above: IIH (idiopathic intr acranial hypertension) (Primary Dx) Start: 03-26-2024 End: 03-26-2024 ambulatory MIKAEL COLÓN Facility:[facility] Start: 03-26-2024 End: 03-26-2024 ambulatory MIKAEL COLÓN Facility:[facility] Start: 03-26-2024 End: 03-26-2024 Patient encounter procedure Mikael Colón MD Work Phone: Ophthalmology Comment on above: IIH (idiopathic intr acranial hypertension) (Primary Dx); Other localized visual field defect, bilateral; Pulsatile tinnitus; History of metabolic acidosis; Rhinorrhea Start: 03-25-2024 End: 03-25-2024 ambulatory MIKAEL COLÓN Facility:[facility] Start: 03-25-2024 End: 03-25-2024 Patient encounter procedure Adwoa Mosley APRN.CNP Work Phone: [facility] Comment on above: Acute otitis externa of left ear, unspecified type (Primary Dx); Otorrhea of left ear Start: 03-10-2024 End: 03-10-2024 ambulatory MIESHA RUBY Facility:[facility] Start: 03-10-2024 End: 03-10-2024 Patient encounter procedure Miesha Ruby MD Work Phone: Ophthalmology Comment on above: Idiopathic intracran ial hypertension (Primary Dx); Iris transillumination of left eye Start: 02-20-2024 Emergency department patient visit KEMAR MANTILLA Facility:[facility] Start: 02-19-2024 ambulatory Marianela Haji RN ENRIQUE SE [facility] Start: 02-19-2024 Patient encounter procedure Marianela Haji RN NURSE [facility]AUFFEUR Comment on above: Clinical Update Start: 02-09-2024 End: 02-09-2024 Emergency department patient visit DR JOHN CORDOVA MD [facility] Start: 01-28-2024 End: 01-28-2024 Emergency department patient visit ROC BURT MD [facility] Start: 01-08-2024 End: 01-08-2024 Patient encounter procedure Ayleen Pichardo Work Phone: Podiatry Comment on above: Sprain of left ankle , unspecified ligament, initial encounter (Primary Dx); Acute left ankle pain; Foot pain, left; Plantar fasciitis of left foot Start: 12-13-2023 End: 12-13-2023 Subsequent hospital visit by physician Jenna [facility] Cristina Work Phone: Radiology Comment on above: Acute left ankle alaina n [M25.572] Start: 12-13-2023 End: 12-13-2023 Patient encounter procedure Danielle David PERINATAL SPECIALIST.[employer]AIN MANAGER Work Phone: [facility] Comment on above: Acute left ankle alaina n (Primary Dx); Foot pain, left; Fall, initial encounter Start: 05-31-2023 End: 05-31-2023 ambulatory NONE PHYSICIAN Facility:A Start: 05-31-2023 End: 05-31-2023 Encounter for other specified special examinations ANGELICA VALDES PERINATAL SPECIALIST-[employer]OUNTAIN MANAGER Facility:A Start: 05-31-2023 End: 05-31-2023 Patient encounter procedure ANGELICA VALDES PERINATAL SPECIALIST-[employer]A FOUNTAIN MANAGER [facility] Start: 05-29-2023 End: 05-29-2023 ambulatory NONE PHYSICIAN Facility:B Start: 05-29-2023 End: 05-29-2023 Patient encounter procedure CALISTA BAUM MD [facility] Start: 05-23-2023 End: 05-23-2023 ambulatory NONE PHYSICIAN Facility:A Start: 05-23-2023 End: 05-23-2023 Patient encounter procedure CALISTA BAUM MD [facility] Start: 05-04-2023 End: 05-04-2023 Patient encounter procedure Judi Flores MD Work Phone: Ophthalmology Comment on above: IIH (idiopathic intr acranial hypertension) (Primary Dx); Papilledema associated with increased intracranial pressure; Migraine with aura and without status migrainosus, not intractable Start: 03-12-2023 End: 03-12-2023 ambulatory NONE PHYSICIAN Facility:A Start: 03-12-2023 End: 03-12-2023 Patient encounter procedure CALISTA BAUM MD [facility] Start: 03-05-2023 End: 03-05-2023 Emergency department patient visit ROC BURT MD [facility] Start: 03-05-2023 End: 03-05-2023 Patient encounter procedure Adwoa Mosley APRN.[facility] Work Phone: [facility] Comment on above: Severe pain (Primary Dx) Start: 02-12-2023 End: 02-13-2023 SAME DAY STAY NONE PHYSICIAN [facility] Start: 02-12-2023 End: 02-12-2023 Patient encounter procedure RENEE MYERS APRN [facility] Start: 02-12-2023 End: 03-08-2024 Lab-Standing Order RENEE MYERS APRN [facility] Start: 02-09-2023 End: 02-09-[address] DELROY ZHOU MD [facility] Start: 02-07-2023 End: 02-07-2023 Emergency department patient visit DR INDIA TUTTLE MD [facility] Start: 02-06-2023 End: 02-06-2023 Patient encounter procedure NONE PHYSICIAN [facility] Start: 12-13-2022 End: 12-13-2022 Patient encounter procedure Cresencio Conrad PA-C Work Phone: [facility] Comment on above: Near syncope (Primar y Dx); Fever, unspecified fever cause Start: 11-07-2022 End: 11-07-2022 Patient encounter procedure KWAME hCo AVERY PERINATAL SPECIALIST-CNM [facility] Start: 05-26-2019 End: 05-26-2019 Emergency department patient visit Gene T Saurabh Work Phone: [facility] Emergency Dept Comment on above: Acute nonintractable headache, unspecified headache type (Primary Dx) Start: 05-22-2019 End: 05-25-2019 Evaluation and management of inpatient Serafin Long Work Phone: [facility] 3W TELEMETRY Start: 03-22-2017 End: 03-22-2017 Emergency department patient visit LOUIS RuckerChrista ASKEW Facility:[facility] Start: 12-16-2007 Patient encounter status Cresencio Conrad PA-C Work Phone: [facility] Work Phone: Procedures Date Procedure Procedure Detail Performing Clinician Start: 02-16-2025 Radex wrist complete minimum 3 views Rylee Mcdonald PERINATAL SPECIALIST.[employer] MANAGER Work Phone: Start: 01-22-2025 Antibody screen MIKAEL CLEMENTS Comment on above: Order Comment: Speci men Type: BLOOD SPECIMENOrdering Facility: [facility] Address: [address] [place] [address] Performed By: #### T SCR30 ####CC MAIN BLOOD BANKCLIA [id number] [place] [address] [place] Start: 01-08-2025 Mra head w/o & w/con trast material Sugey Allan PERINATAL SPECIALIST.[employer] MANAGER Work Phone: Start: 10-06-2024 End: 10-06-2024 Visual field xm uni/bi w/interp extended exam Mikael Colón MD Work Phone: Start: 07-25-2024 Antibody screen UNKNOWN PROVIDER Comment on above: Order Comment: Speci men Type: BLOOD SPECIMEN Ordering Facility: [facility] Address: [facility] [place] [id number] Performed By: #### T SCR30 #### [place] [facility] [id number] [address] [place] [address] [facility] Start: 07-02-2024 End: 07-02-2024 Visual field xm uni/bi w/interp extended exam Mikael Colón MD Work Phone: Start: 06-12-2024 Cell count misc body fluids w/differential count Eulalia Potts [employer] Work Phone: Start: 06-12-2024 CSF ROUT ANALYSIS Eulalia Potts [employer] Work Phone: Start: 06-12-2024 Cul bact xcpt urine blood/stool aerobic isol Eulalia Potts [employer] Work Phone: Start: 06-12-2024 Glucose body fluid o ther than blood Eulalia Potts [employer] Work Phone: Start: 05-15-2024 Mra head w/o [...] ankle complete minimum 3 views Danielle Hernandez PERINATAL SPECIALIST.[employer]AIN MANAGER Work Phone: Start: 05-04-2023 Fundus photography w/interpretation [...] Phone: Start: 05-23-2019 ADD ON LAB TEST Russelzafargerardo Keyon Chace Work Phone: Start: 05-23-2019 Cell count misc body fluids w/differential count Mauricio Templeton Work Phone: Start: 05-23-2019 Glucose body fluid o ther than blood Mauricio Templeton Work Phone: Start: 05-23-2019 Protein total xcpt refractometry oth src Mauricio Templeton Work Phone: Start: 05-23-2019 Smr prim src gram/gi emsa stain bct fungi/cell Mauricio Templeton Work Phone: Start: 05-23-2019 MENINGITIS/ENCEPHALI TIS PANEL, CSF Mee S Deoras Work Phone: Start: 09-13-2019 XA SPECIAL ANGIOGRAP HY PROCEDURE Shayy K. Gezzar Work Phone: Start: 05-23-2019 Assay of magnesium [...] Phone: Start: 05-22-2019 Assay of magnesium Mauricio Templeton Work Phone: Start: 05-22-2019 Blood count complete auto&auto difrntl wbc Mauricio Templeton Work Phone: Start: 05-22-2019 Prothrombin time Mauricio Templeton Work Phone: section KWAME MURILLO PERINATAL SPECIALIST-CNM section CALISTA JARQUIN MD Comment on above: Cholecystectomy KWAME ARCINIEGA PSOJanes PERINATAL SPECIALIST-CNM Hernia of abdominal cavity (disorder) KWAME VARELA PERINATAL SPECIALIST-CNM Repair of umbilical hernia Demetri BAUM MD Tympanostomy CALISTA Pemberton Plan of Treatment Date Care Activity Detail Author Start: 05-11-2025 Influenza vaccination Influenza Vaccine (Season Ended) [facility] Start: 05-04-2025 End: 05-04-2025 Patient encounter procedure 05/04/2025 2:40 PM EDT Office Visit [facility] [place] [id number] [place] [phone] [place] [address] [place] [address] Follow Up [facility] [place] Comment on above: Follow Up Start: 04-08-2025 End: 04-08-2025 Patient encounter procedure 04/08/2025 11:00 AM EDT Office Visit [facility] [place] [address] [address] Marzena Banks MD [address] [place] [address] establish care [facility] [place] Comment on above: establish care Start: 03-03-2025 End: 03-03-2025 Patient encounter procedure Ophthalmology Comment on above: Please schedule this patient for a 4-5 m cox branson return to clinic visit, the indication is IIH Start: 02-25-2025 End: 02-25-2025 ambulatory 02/25/2025 2:30 PM EDT [facility]ocr[facility]ology [address] [place] [address] Joseluis Vasquez, Porcelain Buildup Assistant [facility] Comment on above: Na Start: 02-13-2025 End: 02-13-2025 Patient encounter procedure 02/13/2025 9:00 AM EDT Office Visit [facility] Ophthalmology [address] [place] [address] Mikael Colón MD [address] [place] [address] mcelroy next available, IIH evaluation. Ophthalmology Comment on above: Return for dr mcelroy next available, IIH evaluation. Start: 02-06-2025 End: 02-06-2025 Admission to same day surgery center 02/06/2025 10:45 AM EDT - 02/06/2025 4:15 PM EDT Surgery Admitting [address] [place] [address] [place] [address] [place] [address] ROBOTIC LAPAROSCOPIC HERNIA REPAIR VENTRAL INITIAL REDUCIBLE W/MESH GREATER THAN 10cm Admitting Comment on above: ROBOTIC LAPAROSCOPIC HERNIA REPAIR VENTR AL INITIAL REDUCIBLE W/MESH GREATER THAN 10cm Start: 02-06-2025 End: 02-06-2025 ROBOTIC LAPAROSCOPIC HERNIA REPAIR VENTRAL INITIAL REDUCIBLE W/MESH GREATER THAN 10cm ROBOTIC LAPAROSCOPIC HERNIA REPAIR VENTRAL INITIAL REDUCIBLE W/MESH GREATER THAN 10cm Preoperative examination Recurrent incisional hernia 02/06/2025 10:45 AM EDT [facility] Start: 02-06-2025 Subsequent hospital visit by physician 02/06/2025 10:45 AM EDT Hospital Encounter Admitting [address] [place] [address] Jaswant Askew MD [address] [place] [address] Preoperative examination [Z01.818], Recurrent incisional hernia [K43.2] Admitting Comment on above: Preoperative examination [Z01.818], Recu rrent incisional hernia [K43.2] Start: 02-06-2025 End: 02-06-2025 Admission to same day surgery center 02/06/2025 7:30 AM EDT - 02/06/2025 12:45 PM EDT Surgery Admitting [address] [place] [address] Jaswant Askew MD [address] [place] [address] ROBOTIC LAPAROSCOPIC HERNIA REPAIR VENTRAL INITIAL REDUCIBLE W/MESH GREATER THAN 10cm Admitting Comment on above: ROBOTIC LAPAROSCOPIC HERNIA REPAIR VENTR AL INITIAL REDUCIBLE W/MESH GREATER THAN 10cm Start: 02-06-2025 End: 02-06-2025 ROBOTIC LAPAROSCOPIC HERNIA REPAIR VENTRAL INITIAL REDUCIBLE W/MESH GREATER THAN 10cm ROBOTIC LAPAROSCOPIC HERNIA REPAIR VENTRAL INITIAL REDUCIBLE W/MESH GREATER THAN 10cm Preoperative examination Recurrent incisional hernia 02/06/2025 7:30 AM EDT [facility] Start: 02-06-2025 Subsequent hospital visit by physician 02/06/2025 7:30 AM EDT Hospital Encounter Admitting [address] [place] [address] Jaswant Askew MD [address] [place] [address] Preoperative examination [Z01.818], Recurrent incisional hernia [K43.2] Admitting Comment on above: Preoperative examination [Z01.818], Recu rrent incisional hernia [K43.2] Start: 01-22-2025 End: 01-22-2025 ambulatory 01/22/2025 3:10 PM EDT Procedure Cardiology [address] [address] pre op Cardiology Comment on above: pre op Start: 01-22-2025 End: 01-22-2025 Patient encounter procedure [facility] Comment on above: pre op Start: 01-22-2025 End: 01-22-2025 Anesthesia consultation 01/22/2025 2:00 PM EDT PAT Pre Anesthesia [address] [address] [address] [place] [address] pre op Pre Anesthesia Comment on above: pre op Start: 01-13-2025 End: 01-13-2025 Follow-up encounter 01/13/2025 10:20 AM EDT [facility] NEUROLOGY [address] [address] Sugey Allan, PERINATAL SPECIALIST.[employer]OUNTAIN MANAGER [address] [place] [address] 6 mo transvenous sinus stent follow up NEUROLOGY Comment on above: 6 mo transvenous sinus stent follow up Start: 01-08-2025 End: 11-07-2025 MRA Head veins WO and W contrast IV MRV BRAIN WO/W IVCON Radiology Routine Intracranial vascular stenosis Expected: 01/08/2025 (Approximate), Expires: 11/07/2025 [facility] Work Phone: Comment on above: Expected: 01/08/2025 (Approximate), Expi res: 11/07/2025 Start: 01-08-2025 End: 01-08-2025 Patient encounter procedure 01/08/2025 11:10 AM EDT Appointment MRI Q [address] [address] Procedure: MRV BRAIN WO/W IVCON MRI Q Comment on above: Procedure: MRV BRAIN WO/W IVCON Start: 01-06-2025 End: 01-06-2025 Patient encounter procedure 01/06/2025 2:00 PM EDT Office Visit Endocrin[facility] [place] [address] [place] [address] Rylee Gregory, PERINATAL SPECIALIST.[employer]A FOUNTAIN MANAGER [address] [place] [address] Follow Up [facility]ocr[facility] [place] Comment on above: Follow Up Start: 12-30-2024 End: 04-13-2025 aPTT in Platelet poor plasma by Coagulation assay ACTIVATED PARTIAL THROMBOPLASTIN TIME Lab Routine Preoperative examination Recurrent incisional hernia Expected: 12/30/2024, Expires: 04/13/2025 [facility] Comment on above: Expected: 12/30/2024, Expires: Start: 12-30-2024 End: 04-13-2025 CBC W Auto Differential panel - Blood COMPLETE BLOOD COUNT AND DIFFERENTIAL Lab Routine Preoperative examination Recurrent incisional hernia Expected: 12/30/2024, Expires: 04/13/2025 [facility] Comment on above: Expected: 12/30/2024, Expires: Start: 12-30-2024 End: 04-13-2025 Comprehensive metabolic 2000 panel - Serum or Plasma COMPREHENSIVE METABOLIC PANEL Lab Routine Preoperative examination Recurrent incisional hernia Expected: 12/30/2024, Expires: 04/13/2025 [facility] Comment on above: Expected: 12/30/2024, Expires: Start: 12-30-2024 End: 04-13-2025 PT panel - Platelet poor plasma by Coagulation assay PROTHROMBIN TIME Lab Routine Preoperative examination Recurrent incisional hernia Expected: 12/30/2024, Expires: 04/13/2025 [facility] Comment on above: Expected: 12/30/2024, Expires: Start: 12-30-2024 End: 04-13-2025 TYPE AND SCREEN,30 DAY TYPE AND SCREEN,30 DAY Blood Bank Routine Preoperative examination Recurrent incisional hernia Expected: 12/30/2024, Expires: 04/13/2025 [facility] Comment on above: Expected: 12/30/2024, Expires: Start: 12-02-2024 End: 12-02-2024 ambulatory 12/02/2024 1:30 PM EDT [facility] Patient Outreach Endocrinology [address] [place] [address] Joseluis Vasquez, Porcelain Buildup Assistant N/A Endocrinology Comment on above: N/A Start: 11-10-2024 End: 11-10-2024 Patient encounter procedure 11/10/2024 1:30 PM EST Office Visit General Surgery [address] [address] Jaswant Askew MD [address] [place] [address] IIH (idiopathic intracranial hypertension) [G93.2] General Surgery Comment on above: IIH (idiopathic intracranial hypertensio n) [G93.2] Start: 10-22-2024 End: 10-22-2024 Patient encounter procedure 10/22/2024 10:00 AM EST Office Visit General Surgery [address] [address] Gene Keller MD [address] [place] [address] IIH (idiopathic intracranial hypertension) [G93.2] General Surgery Comment on above: IIH (idiopathic intracranial hypertensio n) [G93.2] Start: 10-06-2024 End: 10-06-2024 Patient encounter procedure 10/06/2024 11:00 AM EST Office Visit [facility] Ophthalmology [address] [address] Mikael Colón MD [address] [place] [address] Please schedule this patient for a 3-4 month return to clinic visit, the indication is IIH Ophthalmology Comment on above: Please schedule this patient for a 3-4 m cox branson return to clinic visit, the indication is IIH Start: 09-26-2024 End: 09-26-2024 ambulatory 09/26/2024 1:00 PM EST [facility] [address] [place] [address] [place] [address] [place] [address] Weight loss [facility] [place] Comment on above: Weight loss Start: 09-13-2024 Annual PCP Team Chronic Disease Visit Annual PCP Team Chronic Disease Visit [facility] Start: 09-12-2024 End: 09-12-2024 ambulatory 09/12/2024 10:40 AM EST [facility] [address] [place] [address] [place] [address] [place] [address] Weight loss [facility]ocr[facility] [place] Comment on above: Weight loss Start: 08-28-2024 End: 08-28-2024 ambulatory 08/28/2024 10:00 AM EST [facility]OLOG[facility] [address] [facility] [place] [address] Meena Murray APRN.[employer]A FOUNTAIN MANAGER [address] [place] [address] Dx: Hospital DC post op Est patient vv per haiku sent by mary choudhury 06/12/24 NEUROLOGY Comment on above: Dx: Hospital DC post op Est patient vv p er haiku sent by mary choudhury 06/12/24 Start: 07-31-2024 End: 07-31-2024 Patient encounter procedure 07/31/2024 8:15 AM EST Office Visit Urology [address] [address] Mauricio Naranjo MD [address] [place] [address] Nephrolithiasis Urology Comment on above: Nephrolithiasis Start: 07-29-2024 End: 07-29-2024 Admission to same day surgery center 07/29/2024 8:00 AM EST - 07/29/2024 10:15 AM EST Surgery Angio [address] [place] [address] Chula Morton MD [address] [place], [place] [id number] SELECTIVE CATHETER PLACEMENT EACH INTRACRANIAL BRANCH OF [...] HB6 Start: 07-25-2024 End: 10-24-2024 ASPIRIN/CLOPIDOGREL RESISTANCE [facility] Comment on above: Expected: 07/25/2024, Expires: Start: 07-25-2024 End: 10-24-2024 Basic metabolic 2000 panel - Serum or Plasma BASIC METABOLIC PANEL Lab Routine IIH (idiopathic intracranial hypertension) Papilledema associated with increased intracranial pressure Expected: 07/25/2024, Expires: 10/24/2024 [facility] Comment on above: Expected: 07/25/2024, Expires: Start: 07-25-2024 End: 10-24-2024 CBC panel - Blood by Automated count COMPLETE BLOOD COUNT Lab Routine IIH (idiopathic intracranial hypertension) Papilledema associated with increased intracranial pressure Expected: 07/25/2024, Expires: 10/24/2024 [facility] Work Phone: Comment on above: Expected: 07/25/2024, Expires: Start: 07-25-2024 End: 10-24-2024 Choriogonadotropin.beta subunit [Units/volume] in Serum or Plasma HCG QUANTITATIVE Lab Routine IIH (idiopathic intracranial hypertension) Papilledema associated with increased intracranial pressure Expected: 07/25/2024, Expires: 10/24/2024 [facility] Comment on above: Expected: 07/25/2024, Expires: Start: 07-25-2024 End: 10-24-2024 CONFIRM BLOOD TYPE CONFIRM BLOOD TYPE Blood Bank Routine IIH (idiopathic intracranial hypertension) Papilledema associated with increased intracranial pressure Expected: 07/25/2024, Expires: 10/24/2024 [facility] Comment on above: Expected: 07/25/2024, Expires: Start: 07-25-2024 End: 10-24-2024 TYPE AND SCREEN,30 DAY TYPE AND SCREEN,30 DAY Blood Bank Routine IIH (idiopathic intracranial hypertension) Papilledema associated with increased intracranial pressure Expected: 07/25/2024, Expires: 10/24/2024 [facility] Comment on above: Expected: 07/25/2024, Expires: Start: 07-25-2024 End: 07-25-2024 ambulatory 07/25/2024 11:30 AM EST Results Only [facility] [address] [place] [address] Pre Op [facility] Comment on above: Pre Op Start: 07-25-2024 End: 07-25-2024 Anesthesia consultation 07/25/2024 10:40 AM EST PAT Pre Anesthesia [address] [place] [address] 1, [address] [place] [address] [place] [address] Pre Op Pre Anesthesia Comment on above: Pre Op Start: 07-23-2024 End: 07-23-2024 ambulatory 07/23/2024 10:45 AM EST [facility] [address] [place] [address] [place] [address] [place] [address] Lopez (next available is fine) [facility] [place] Comment on above: ASAPwith Dr. Lopez (next available is fine) Start: 07-15-2024 End: 07-15-2024 ambulatory 07/15/2024 10:45 AM EST [facility] [address] [place] [address] [place] [address] [facility] [place] [address] Lopez (next available is fine) Formerly [facility], [facility] Comment on above: ASAPwith Dr. Lopez (next available is fine) Start: 07-02-2024 End: 10-01-2024 Basic metabolic 2000 panel - Serum or Plasma BASIC METABOLIC PANEL Lab Routine Paresthesias Expected: 07/02/2024, Expires: 10/01/2024 [facility] Work Phone: Comment on above: Expected: 07/02/2024, Expires: Start: 07-02-2024 End: 07-02-2024 Patient encounter procedure 07/02/2024 11:30 AM EDT Office Visit [facility] [address] [address] Mikael Colón MD [address] [place], [place] [id number] Please schedule 3 month return to clinic visit, per Dr. Colón Ophthalmology Comment on above: Please schedule 3 month return to clinic visit, per Dr. Colón Start: 06-12-2024 End: 06-12-2024 Diagnostic lumbar spinal puncture SPINAL PUNCTURE LUMBAR DIAGNOSTIC IIH (idiopathic intracranial hypertension) 06/12/2024 11:20 AM EDT [facility] HB6 Start: 06-12-2024 End: 06-12-2024 ambulatory 06/12/2024 9:40 AM EDT [facility] [address] [place] [address] Chula Morton MD [address] [place], [place] [id number] [facility] Comment on above: IIH Start: 05-20-2024 End: 05-20-2024 ambulatory 05/20/2024 7:00 AM EDT [facility] [address] [address] Mikael Colón MD [address] [place], [place] [id number] MRI results [facility] Ophthalmology Comment on above: MRI results VV Start: 05-20-2024 End: 05-20-2024 Patient encounter procedure 05/20/2024 7:00 AM EDT Office Visit [facility] [address] [address] Mikael Colón MD [address] [place] [address] MRI results [facility] Ophthal[facility] Comment on above: MRI results VV Start: 05-15-2024 End: 05-15-2024 Patient encounter procedure MRI Q Comment on above: MRV BRAIN WO/W IVCON Start: 05-11-2024 Covid-19 Vaccine ( season) Covid-19 Vaccine () [facility] Start: 05-11-2024 Covid-19 Vaccine () Covid-19 Vaccine () [facility] Start: 05-11-2024 Influenza vaccination [facility] Start: 04-17-2024 End: 04-17-2024 Patient encounter procedure 04/17/2024 9:30 AM EDT Office Visit [facility] [place] [address] [place] [address] Eulalia Justice PA-C [address] [place] [address] pseudotumor cerebri; headaches [facility] Comment on above: pseudotumor cerebri; headaches Start: 03-26-2024 End: 06-25-2024 Basic metabolic 2000 panel - Serum or Plasma [facility] Comment on above: Expected: 03/26/2024, Expires: Start: 03-26-2024 End: 03-26-2024 Patient encounter procedure 03/26/2024 8:30 AM EDT Office Visit [facility] [address] [address] Mikael Colón MD [address] [place] [address] Colón next available, II evaluation. Being referred by Dr. Miesha Ruby Ophthalmology Comment on above: Return for Dr. Colón next available, II evaluation. Being referred by Dr. Miesha Ruby Start: 02-20-2024 End: 02-20-2024 Patient encounter procedure 02/20/2024 8:15 AM EDT Office Visit [facility] [address] [place] [address] [place] [address] [place] [address] pain/pressure in eye/pseudotumor - Dr. Flores patient Ophthalmology Comment on above: pain/pressure in eye/pseudotumor - Dr. Tammie muse patient Start: 01-24-2024 End: 01-24-2024 ambulatory 01/24/2024 2:00 PM EDT OT/PT/Speech Visit [facility] [address] [place] [id number] [place], PT [address] [place] [address] Sprain of left ankle, unspecified ligament, initial encounter [S93.402A] [facility] Comment on above: Sprain of left ankle, unspecified ligame nt, initial encounter [S93.402A] Start: 05-11-2023 Covid-19 Vaccine ( season) Covid-19 Vaccine ( season) [facility] Start: 05-11-2023 Influenza vaccination [facility] Start: 09-14-2020 PAP TESTING PAP TESTING [facility] Start: 09-14-2020 Screening for malignant neoplasm of cervix Pap Testing [facility] Start: 05-25-2020 Creatinine monitoring Creatinine monitoring [place], [place] Start: 05-25-2020 Potassium monitoring Potassium monitoring [place], [place] Start: 05-23-2020 Creatinine monitoring Creatinine monitoring [place], [place] Start: 05-23-2020 Potassium monitoring Potassium monitoring [place], [place] Start: 05-29-2019 End: 05-29-2019 Office Visit 05/29/2019 Office Visit Internal Medicine Maco Person MD [address] [place] [address] [phone] [facility] [place] Start: 05-11-2019 Influenza vaccination Flu vaccine (#1) [place], [place] Start: 09-14-2018 Screening for malignant neoplasm of cervix Cervical Cancer Screening [facility] Start: 11-10-2017 HPV TESTING HPV TESTING [facility] Start: 11-10-2017 Screening for malignant neoplasm of cervix HPV Testing [facility] Start: 11-10-2008 Cervical cancer screen Cervical cancer screen [place], [place] Start: 11-10-2005 ANNUAL PCP TEAM CHRONIC DISEASE VISIT ANNUAL PCP TEAM CHRONIC DISEASE VISIT [facility] Start: 11-10-2005 BP CONTROLLED (<130/80) BP CONTROLLED (<130/80) [facility] Start: 11-10-2005 HEPATITIS C SCREENING HEPATITIS C SCREENING [facility] Start: 11-10-2005 Hepatitis C screening Hepatitis C Screening [facility] Start: 11-10-2005 HIV SCREENING HIV SCREENING [facility] Start: 11-10-2005 HIV screening HIV Screening [facility] Start: 11-07-2005 HEPATITIS B (2 of 3 - 3-dose series) HEPATITIS B (2 of 3 - 3-dose series) [facility] Start: 11-07-2005 Hepatitis B Vaccine (2 of 3 - 3-dose series) Hepatitis B Vaccine (2 of 3 - 3-dose series) [facility] Start: 11-17-2003 Urine microalbumin profile [facility] Start: 11-10-2002 HIV screen HIV screen [place], [place] Start: 11-10-2000 Varicella Vaccine (1 of 2 - 13+ 2-dose series) Varicella Vaccine (1 of 2 - 13+ 2-dose series) [place] Start: 11-10-1998 DTaP/Tdap/Td vaccine (5 - Tdap) DTaP/Tdap/Td vaccine (5 - Tdap) [place] Start: 05-13-1988 COVID-19 VACCINE (#1) COVID-19 VACCINE (#1) [facility] End: 05-23-2019 AFB culture AFB culture Microbiology Routine Once for 1 Occurrences starting 05/23/2019 until 05/23/2019 [facility] Comment on above: Once for 1 Occurrences starting 05/23/20 19 until 05/23/2019 AFB culture AFB culture Micr obiology Routine 05/23/2019 5:28 PM EDT [facility] SANTANA End: 05-23-2019 AFB Stain AFB Stain Microbiology Routine Once for 1 Occurrences starting 05/23/2019 until 05/23/2019 [facility] Comment on above: Once for 1 Occurrences starting 05/23/20 19 until 05/23/2019 AFB Stain AFB Stain Microb iology Routine 05/23/2019 5:28 PM EDT [facility] Bacteria identified in Cerebral spinal fluid by Culture CSF CULTURE AND STAIN Microbiology Routine IIH (idiopathic intracranial hypertension) 06/12/2024 12:06 PM EDT [facility] Work Phone: Basic Metabolic Pane l w/ Reflex to MG Basic Metabolic Panel w/ Reflex to MG Lab Routine Daily until discontinued starting 05/23/2019, 3 completed [facility] Comment on above: Daily until discontinued starting 2018, 3 completed Beta-2 transferrin [Presence] in Body fluid BETA-2 TRANSFERRIN Lab Routine Rhinorrhea Ordered: 03/26/2024 [facility] Work Phone: Comment on above: Ordered: 03/26/2024 Body Fluid Culture Body Fluid Cu lture Microbiology Routine 05/23/2019 6:18 PM EDT [facility] CBC auto differential CBC auto d ifferential Lab Routine Daily until discontinued starting 05/22/2019, 3 completed [facility] Comment on above: Daily until discontinued starting 2018, 3 completed CSF MANUAL DIFF CSF MANUAL DIFF Lab Routine IIH (idiopathic intracranial hypertension) 06/12/2024 12:06 PM EDT [facility] End: 05-22-2019 Cytology, Non-Sack Keeper Cytology, Non-Sack Keeper Lab Routine One Time for 1 Occurrences starting 05/22/2019 until 05/22/2019 [facility] Comment on above: One Time for 1 Occurrences starting 05/11 until 05/22/2019 End: 11-12-2025 ECG COMPLETE ECG COMPLETE ECG Routine Preoperative examination Recurrent incisional hernia 1 Occurrences starting 11/13/2024 until 11/12/2025 [facility] Comment on above: 1 Occurrences starting 11/13/2024 until 11/12/2025 End: 05-23-2019 Fungus Culture Fungus Culture Microbiology Routine Once for 1 Occurrences starting 05/23/2019 until 05/23/2019 [facility] Comment on above: Once for 1 Occurrences starting 05/23/20 19 until 05/23/2019 Fungus Culture Fungus Culture Microbiology Routine 05/23/2019 5:28 PM EDT [facility] End: 09-26-2025 HOME SLEEP APNEA TEST (HSAT) HOME SLEEP APNEA TEST (HSAT) Procedures Routine IIH (idiopathic intracranial hypertension) Episode of recurrent major depressive disorder, unspecified depression episode severity (HCC) BMI 38.0-38.9,adult Central adiposity Avoidant-restrictive food intake disorder (ARFID) Disturbance in sleep behavior 1 Occurrences starting 09/26/2024 until 09/26/2025 [facility] Work Phone: Comment on above: 1 Occurrences starting 09/26/2024 until 09/26/2025 Initiate Oxygen Ther apy Protocol Initiate Oxygen Therapy Protocol Respiratory Care Routine Daily until discontinued starting 05/22/2019 [facility] Comment on above: Daily until discontinued starting 2018 IR CEREBRAL ARCH & T HREE VESSEL IR CEREBRAL ARCH & THREE VESSEL Radiology Routine IIH (idiopathic intracranial hypertension) Papilledema associated with increased intracranial pressure Ordered: 06/12/2024 [facility] Comment on above: Ordered: 06/12/2024 End: 05-22-2019 Lumbar Puncture Lumbar Puncture Procedures Routine One Time for 1 Occurrences starting 05/22/2019 until 05/22/2019 [facility] Comment on above: One Time for 1 Occurrences starting 05/11 until 05/22/2019 Magnesium [Mass/Vol] Magnesium L ab Routine Daily until discontinued starting 05/22/2019, 4 completed [facility] Comment on above: Daily until discontinued starting 2018, 4 completed End: 04-26-2025 MRA Head veins WO and W contrast IV MRV BRAIN WO/W IVCON Radiology DESEAN IIH (idiopathic intracranial hypertension) Pulsatile tinnitus 1 Occurrences starting 03/26/2024 until 04/26/2025 [facility] Comment on above: 1 Occurrences starting 03/26/2024 until 04/26/2025 REFER FOR ADMIT INTERVIEW REFER FOR ADMIT INTERVIEW Procedures Routine Preoperative examination Recurrent incisional hernia Ordered: 11/13/2024 [facility] Work Phone: Comment on above: Ordered: 11/13/2024 RF Guidance for flui d aspiration of Lumbar spine space IR LP FOR DRAINAGE (PRESSURE) Radiology Routine IIH (idiopathic intracranial hypertension) Ordered: 04/17/2024 [facility] Work Phone: Comment on above: Ordered: 04/17/2024 RF Stent Views W contrast intra stent IR NEUROVASCULAR STENT Radiology Routine IIH (idiopathic intracranial hypertension) Papilledema associated with increased intracranial pressure Ordered: 06/12/2024 [facility] Comment on above: Ordered: 06/12/2024 End: 05-25-2019 RPR WITH FTA REFLEX RPR WITH FTA REFLEX Lab Routine Tomorrow AM for 1 Occurrences starting 05/25/2019 until 05/25/2019 [facility] Comment on above: Tomorrow AM for 1 Occurrences starting 0 05/25/2019 until 05/25/2019 RPR WITH FTA REFLEX RPR WITH FTA REFLEX Lab Routine 05/25/2019 6:45 AM EDT [facility] Slctv cath intrcrnl brnch angio intrl carot/vert [...] for 1 Occurrences starting 05/22/2019 until 05/22/2019 [facility] Comment on above: One Time for 1 Occurrences starting 05/11 until 05/22/2019 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 aircraft 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 roboticist w/balo angiop if pfrmd TRANSCATH PLCMNT OF INTRACRANIAL INTRAVASCULAR STENT IIH (idiopathic intracranial hypertension) Papilledema associated with increased intracranial pressure [facility] HB6 End: 05-23-2019 VDRL, CSF WITH REFLEX TO TITER VDRL, CSF WITH REFLEX TO TITER Lab Routine One Time for 1 Occurrences starting 05/23/2019 until 05/23/2019 [facility] Comment on above: One Time for 1 Occurrences starting 05/11 until 05/23/2019 VDRL, CSF WITH REFLE X TO TITER VDRL, CSF WITH REFLEX TO TITER Lab Routine 05/23/2019 6:18 PM EDT [facility] X[facility] Wrist - left PA a nd Lateral and Oblique XR WRIST GENERAL 3V PA/LAT/OBL LEFT Radiology STAT Injury of left wrist, initial encounter Ordered: 04/27/2024 [facility] Work Phone: Comment on above: Ordered: 04/27/2024 [facility] Immunizations Immunization Date Immunization Notes Care Provider Keon goss 10-10-2005 hepatitis B vaccine, pediatric or pediatric/adolescent dosage Cresencio Conrad PA-C Work Phone: [facility] Work Phone: 10-10-2005 hepatitis B vaccine, unspecified formulation Cresencio Conrad PA-C Work Phone: [facility] 11-16-2003 tetanus and diphther ia toxoids, adsorbed, preservative free, for adult use (2 Lf of tetanus toxoid and 2 Lf of diphtheria toxoid) Cresencio Conrad PA-C Work Phone: [facility] Work Phone: 04-25-1999 measles, mumps and rubella virus vaccine Cresencio Conrad PA-C Work Phone: [facility] Work Phone: 11-10-1993 trivalent poliovirus vaccine, live, oral Cresencio [employer]RE[employer] Work Phone: [facility] Work Phone: 11-10-1993 tuberculin skin test ; purified protein derivative solution, intradermal Adwoa Mosley APRN.CNP Work Phone: [facility] 05-24-1992 diphtheria, tetanus toxoids and pertussis vaccine Cresencio Conrad PA-C Work Phone: [facility] Work Phone: 10-07-1990 diphtheria, tetanus toxoids and pertussis vaccine Cresencio Conrad PA-C Work Phone: [facility] Work Phone: 10-07-1990 trivalent poliovirus vaccine, live, oral Cresencio Conrad PA-C Work Phone: [facility] Work Phone: 01-21-1990 diphtheria, tetanus toxoids and pertussis vaccine Cresencio Conrad PA-C Work Phone: [facility] Work Phone: 01-21-1990 haemophilus influenz ae type b vaccine, HbOC conjugate Cresencio Conrad PA-C Work Phone: [facility] Work Phone: 01-21-1990 trivalent poliovirus vaccine, live, oral Cresencio Conrad PA-C Work Phone: [facility] Work Phone: 11-13-1989 diphtheria, tetanus toxoids and pertussis vaccine Cresencio Conrad PA-C Work Phone: [facility] Work Phone: 11-13-1989 measles, mumps and rubella virus vaccine Cresencio Conrad PA-C Work Phone: [facility] Work Phone: 11-13-1989 trivalent poliovirus vaccine, live, oral Cresencio Conrad PA-C Work Phone: [facility] Work Phone: Payers Date Payer Category Payer Unknown [id number] 2024 Self-pay 2022 Medicaid [id number] 2022 Unknown [id number] 2013 Unknown [id number] 1987 Unknown [id number] 2.16.8 [id number] 1987 Unknown [id number] 2.16.8 [id number] 1987 Unknown [id number] 2.16.8 [id number] 1987 Unknown [id number] 2.16.8 [id number] 1987 Unknown [id number] 2.16.8 [id number] 1987 Unknown [id number] 2.16.8 40.1.321329.3.579.2.7 1987 Unknown [id number] 2.16.8 40.1.045968.3.579.2.7 1987 Unknown [id number] 2.16.8 40.1.743561.3.579.2.7 1987 Unknown [id number] 2.16.8 [id number] 1987 Unknown [id number] 2.16.8 [id number] 1987 Unknown [id number] 2.16.8 [id number] 1987 Unknown [id number] 2.16.8 [id number] 1987 Unknown [id number] 2.16.8 [id number] 1987 Unknown [id number] 2.16.8 [id number] Unknown [id number] 2.16.8 [id number] Unknown [id number] 2.16.8 [id number] Unknown [id number] 2.16.8 [id number] Unknown [id number] 2.16.8 [id number] Unknown [id number] 2.16.8 [id number] Social History Date Type Detail Facility Start: 05-26-2019 End: 02-27-2023 Tobacco smoking status NHIS Never smoker [facility] Start: 05-26-2019 End: 02-27-2023 Alcohol intake Yes [facility] Start: 05-22-2019 Alcohol Comment rarely Tiffanie Cherry [facility] [place] Start: 1985 Sex Assigned At Not on file [place], [place] Sex Assigned At [facility] History of tobacco use Cigarette Smoker C [facility] Start: 12-13-2022 End: 02-27-2023 Cigarettes smoked current (pack per day) - Reported 0.5 [facility] Start: 12-13-2022 End: 02-27-2023 Tobacco use and exposure Smokeless tobacco non-user [facility] Start: 12-13-2022 End: 07-02-2024 Alcohol intake Current drinker of alcohol (finding) [facility] Start: 07-18-2013 Alcohol Comment very rare [facility] National Score (1-10 0), lower number is lower risk 99 [facility] Start: 07-25-2024 End: 02-13-2025 Alcoholic beverage intake Ex-drinker (finding) [facility] Start: 04-29-2010 Sex Female (finding) [facility] Medical Equipment Procedure Code Equipment Code Equipment Origin al Text Equipment Identifier Dates Mesh-05/26/2011 [id number] Start: 05-26-2011 Device Closure Vascade Mvp Multi-Site Femoral Collagen Patch - [id number] Start: 07-29-2024 Stent Zilver 518 9mm 5fr Nitinol 60mm 125cm Vascular Self Expand Flexible - [id number] Start: 07-29-2024 Comment on above: Description: MRI con ditional at: 3T, 720G/cm 1.5 W/kg at 1.5 July 3 W/kg at 3 July Mesh Prolene Squ are Flat [id number] Surgical Knit Nonabsorbable Nonreactive - [id number] Start: 02-06-2025 Functional Status Date Assessment Result Facility 02-08-2025 Are you deaf, or do you have serious difficulty hearing No 02/08/2025 4:32 PM EDKaran Bradley RN No [facility] 02-08-2025 Are you blind, or do you have serious difficulty seeing, even when wearing glasses No 02/08/2025 4:32 PM EDKaran Bradley RN No [facility] 02-08-2025 Do you have serious difficulty walking or climbing stairs No 02/08/2025 4:32 PM EDKaran Bradley RN No [facility] 02-08-2025 Do you have difficul ty dressing or bathing No 02/08/2025 4:32 PM EDKaran Bradley RN No [facility] 02-08-2025 Because of a physica l, mental, or emotional condition, do you have difficulty doing errands alone such as visiting a physician's office or shopping No 02/08/2025 4:32 PM Karan Garcia RN No [facility] 09-19-2024 Functional Status Independent [facility] 09-19-2024 Functional Status Ambulation in [place]ier[place], Ambulation in Room [facility] 08-25-2024 Functional Status Activity Veritoreyes coppola Independent [facility] 08-24-2024 Functional Status Standard Safet y ID band on, Allergy Band on, Call device within reach, Bed in low position, Wheels locked, Upper/Half-Length side-rails up, Phone within reach, personal items within reach, Bedside Cart Locked, Visitor at bedside [facility] 07-30-2024 Are you deaf, or do you have serious difficulty hearing No 07/30/2024 11:17 AM Ronak Vivas, RN No [facility] 07-30-2024 Are you blind, or do you have serious difficulty seeing, even when wearing glasses No 07/30/2024 11:17 AM Ronak Vivas, RN No [facility] 07-30-2024 Do you have serious difficulty walking or climbing stairs No 07/30/2024 11:17 AM Ronak Vivas, RN No [facility] 07-30-2024 Do you have difficul ty dressing or bathing No 07/30/2024 11:17 AM Ronak Vivas, RN No [facility] 07-30-2024 Because of a physica l, mental, or emotional condition, do you have difficulty doing errands alone such as visiting a physician's office or shopping No 07/30/2024 11:17 AM Roank Vivas, HAN No [facility] 07-24-2024 Functional Status Up ad parul [facility] 07-24-2024 Functional Status Standard Safet y ID band on, Call device within reach, Bed in low position, Wheels locked [facility] 07-15-2024 Functional Status Independent [facility] 06-12-2024 Functional Status Assistive Device None A [facility] 06-12-2024 Functional Status ID band on [facility] 02-09-2024 Functional Status Independent [facility] 02-09-2024 Functional Status ID band on, Call device within reach, Bed in low position, Wheels locked, Visitor at bedside [facility] 01-28-2024 Functional Status Standard Safet y ID band on, Call device within reach, Bed in low position, Wheels locked, Upper/Half-Length side-rails up, Bedside Cart Locked, Safety level maintained [facility] 03-05-2023 Functional Status ID band on, Call device within reach, Bed in low position, Wheels locked, personal items within reach, Bedside Cart Locked, Visitor at bedside, Safety level maintained [facility] 02-12-2023 Functional Status ice chips and sips take n [facility] 02-12-2023 Functional Status [facility] 02-12-2023 Functional Status [facility] 02-07-2023 Functional Status ID band on, Call device within reach, Bed in low position, Wheels locked, Upper/Half-Length side-rails up, Visitor at bedside [facility] Mental Status Date Assessment Result Facility 02-08-2025 Because of a physica l, mental, or emotional condition, do you have serious difficulty concentrating, remembering, or making decisions No 02/08/2025 4:32 PM Karan Garcia RN No [facility] 09-19-2024 Mental Status Orientation Oriented x 4 [facility] 09-19-2024 Mental Status [facility] 08-25-2024 Mental Status Orientation Oriented x 4 [facility] 08-24-2024 Mental Status [facility] 07-30-2024 Because of a physica l, mental, or emotional condition, do you have serious difficulty concentrating, remembering, or making decisions No 07/30/2024 11:17 AM Ronak Vivas, HAN [facility] 07-24-2024 Mental Status Orientation Oriented x 4 [facility] 07-24-2024 Mental Status [facility] 07-15-2024 Mental Status Oriented x 4 [facility] 06-12-2024 Mental Status Orientation Oriented x 4 [facility] 06-12-2024 Mental Status [facility] 02-09-2024 Mental Status Orientation Oriented x 4 [facility] 02-09-2024 Mental Status [facility] 01-28-2024 Mental Status Orientation Oriented x 4 [facility] 03-05-2023 Mental Status Orientation Oriented x 4 [facility] 02-12-2023 Mental Status Orientation Foll ows simple commands [facility] 02-12-2023 Mental Status [facility] 02-12-2023 Mental Status [facility] 02-07-2023 Mental Status Orientation Oriented x 4 [facility] 02-07-2023 Mental Status [facility] Clinical Notes 12-13-2022 to 02-24-2025 Omar Ferreira APRN.[employer] - 02/24/2025 11:46 AM EDTPatient InstructionsBelen Zamora RT(R) - 02/16/2025 1:20 PM Rylee Antunez APRN.[employer] - 02/16/2025 1:11 PM EDTPatient Instructions Note Date & Type Note Facility 02-24-2025 History of Present illness Narrative Images from the original note were not included. [facility] Clinic Date: February 24, 2025 Omar Gomez 39 year old female CHIEF COMPLAINT: Patient presents virtually for follow up from surgery. HPI: Here virtually for follow up after robotic bilateral TAR, incisional hernia repair with mesh and excision of prior abdominal wall mesh on 02/06/2025 by . Omar reports persistent sharp abdominal pain since the surgery, though it has improved in intensity since her drain was removed at her last visit (02/13). She describes the pain as intermittent and manageable with Tylenol and ibuprofen. She has also been using hot showers for relief, but is unsure of their effectiveness. She was previously prescribed Robaxin and oxycodone, but notes that Robaxin was only effective when taken with oxycodone. Omar still has some Robaxin remaining and is not currently using oxycodone. She denies fevers, and is able to eat without nausea or vomiting. She reports normal bowel movements and urination. Omar had previously experienced diarrhea, which has since resolved without the use of Metamucil. She is able to engage in activities such as cleaning her house and fishing, but finds walking difficult. She denies feeling tired after activities. Omar inquires about when she can resume going to the gym and riding her bike with her children. She also notes that her RAYMUNDO drain removal site has not fully closed yet, but is not draining significantly. She has been keeping a gauze over the site. Surgery Date and Procedure: 02/06/2025 1. Left myofascial advancement flap 2. Right myofascial advancement flap 3. Robotic incisional hernia repair with mesh 4. Excision of prior abdominal wall mesh Randomized Controlled Trial: Robotic versus Open Ventral Hernia Repair (ROVHR) Trial Current Medications: Current Outpatient Medications Medication Sig Dispense Refill AMOXICILLIN ORAL Take by mouth. (Patient not taking: Reported on 02/16/2025) aspirin 81 mg chewable tablet Take 1 tablet by mouth once daily for 6 days. Stop 01/26/25 6 tablet 0 aspirin 325 mg tablet Take 1 tablet by mouth once daily. Patient should start on October 22, 2024. 90 tablet 0 acetaZOLAMIDE SR (DIAMOX SEQUELS) 500 mg capsule Take 1 capsule by mouth every evening. 30 capsule 5 metFORMIN ER (GLUCOPHAGE XR) 500 mg 24 hr tablet Take 1 tablet by mouth daily with lunch for 7 days, THEN 1 tablet two times a day with meals. 187 tablet 2 acetaminophen (TYLENOL) 500 mg tablet Take 2 tablets by mouth every 6 hours as needed for pain. LORazepam (ATIVAN) 1 mg tablet Take 1 mg by mouth as needed for anxiety. venlafaxine ER (EFFEXOR XR) 75 mg 24 hr capsule Take 1 capsule by mouth every afternoon. No current facility-administered medications for this visit. REVIEW OF SYSTEMS: Constitutional: (-) fever, (-) fatigue Gastrointestinal: (+) sharp abdominal pain, (+) diarrhea, (-) nausea, (-) vomiting Genitourinary: (-) dysuria Musculoskeletal: (+) difficulty walking Skin: (+) wound drainage PHYSICAL EXAM: LMP 01/22/2025 - VV General: No acute distress. Abd: Incisions healing well, adhesive peeling off, no signs of infection. SURGICAL PATHOLOGY: N/A ASSESSMENT/PLAN: 1. Postoperative visit (Z48.89) Patient is 18 days post-surgery with expected sharp pains, likely due to muscle spasms. Incisions are healing well with no signs of infection. Patient is ambulating and engaging in light activities without significant fatigue. No fevers, nausea, or vomiting reported. Bowel movements and urination are normal. RAYMUNDO drain removal site is healing appropriately. - Advised that sharp pains may persist for approximately 6 more weeks but should decrease in severity. - Continue current pain management with Tylenol and ibuprofen; no further narcotic refills planned. - Encouraged use of heat therapy as needed. - Advised to gradually increase activity levels as tolerated, with no specific lifting restrictions - Instructed to leave the drainage site open to air to facilitate healing. -Follow up in 1 year or sooner SLICK Weber, [employer]GER February 24, 2025 documented in this encounter [facility] 02-16-2025 Instructions Rylee Mcdonald APRN.CNP - 02/16/2025 1:59 PM EDT Appears to be strain, swelling from IV sticks, no bony abnormality Rest, ice, elevation, wrist compression (susy wrap or splint). Tylenol (generic acetaminophen) 500 mg-2 tabs every 8 hrs. as needed for fever and aches Ibuprofen 600 mg (3-200mg tablets) every 6 hours if pain persists beyond 10-14 days there are times where a repeat x-ray is needed to rule out occult fracture Follow up with ortho as needed documented in this encounter [facility] 02-16-2025 History of Present illness Narrative Radiology Service Progress Note PATIENT NAME: Omar Gomez DATE OF SERVICE: February 16, 2025 TIME: 1:15 PM PATIENT IDENTITY VERIFICATION COMPLETED USING TWO [...] PATIENT RELEVANT IMPLANT DATA REVIEWED: Not Applicable PATIENT PRESENTS WITH AN IMPLANTABLE OR ATTACHED FIRE TENDER: No RADIOLOGY DEPARTMENT: General X-ray: Exam(s) Completed: Upper Extremity X-Ray(s): Wrist, left PERIPHERAL IV DATA: Not applicable SIGNED BY: RT Louis(R) February 16, 2025 1:15 PM documented in this encounter [facility] 02-16-2025 Note HNO ID: [id number] Author: BELEN ZAMORA RT([place]) Service: Radiology Author Type: Technologist Type: Progress Notes Filed: 02/16/2025 13:21 Note Text: Radiology Service Progress Note PATIENT NAME: Omar Gomez DATE OF SERVICE: February 16, 2025 TIME: 1:15 PM PATIENT IDENTITY VERIFICATION COMPLETED USING TWO [...] PATIENT RELEVANT IMPLANT DATA REVIEWED: Not Applicable PATIENT PRESENTS WITH AN IMPLANTABLE OR ATTACHED FIRE TENDER: No RADIOLOGY DEPARTMENT: General X-ray: Exam(s) Completed: Upper Extremity X-Ray(s): Wrist, left PERIPHERAL IV DATA: Not applicable SIGNED BY: RT Louis(R) February 16, 2025 1:15 PM [facility] 02-16-2025 Note HNO ID: [id number] Author: RYLEE MCDONALD APRN.[employer]GER Service: ? Author Type: Nurse Practitioner Type: Progress Notes Filed: 02/16/2025 13:59 Note Text: Subjective The history is provided by the patient. No complaint investigator was used. HPI Omar Gomez is a 39 year old female who presents today for CC of left wrist pain, swelling. Left Wrist Pain and Swelling: - Onset following hernia surgery on Sunday. - Noted a painful lump in the left hand, with persistent numbness in the fingers. - Initially, all three fingers were numb; sensation has returned to some fingers. - Pain extends down the wrist and up the arm; difficulty fully extending the arm. - Denies known trauma; suspects possible injury during surgery. - IV was placed in the left hand during surgery; multiple puncture carson noted. - Applied a wrist brace for support and compression. - injured a few weeks ago, never had it checked - hit it against the corner of a wall. BP 130/90 Pulse 90 Temp 36.9 ?C (98.5 ?F) Resp 18 Wt 109.1 kg (240 lb 8.4 oz) LMP 01/22/2025 SpO2 99% BMI 38.82 kg/m? Social History Tobacco Use Smoking status: Never Smokeless tobacco: Never Vaping Use Vaping status: Never Used Substance Use Topics Alcohol use: Not Currently Drug use: No PAST MEDICAL HISTORY Diagnosis Date Adjustment disorder with depressed mood Ectopic (HCC) 12/2022 IIH (idiopathic intracranial hypertension) PMH - PAST MEDICAL HISTORY OF 11/10/93-color vision normal Post depression 07/18/2013 hypertension (HCC) PTSD (post-traumatic stress disorder) Unequal pupils left > right I have confirmed and edited as necessary, the PSYCHIATRIC Review of Systems Constitutional: Negative for chills and fever. Musculoskeletal: Positive for joint pain (left wrist). Negative for myalgias. Skin: Negative for itching and rash. All other systems reviewed and are negative. Objective Physical Exam Vitals and nursing note reviewed. Cardiovascular: Pulses: Radial pulses are 2+ on the right side and 2+ on the left side. Pulmonary: Effort: Pulmonary effort is normal. Musculoskeletal: Right wrist: Normal. Left wrist: Swelling and tenderness present. No lacerations, bony tenderness, snuff box tenderness or crepitus. Normal range of motion. Normal pulse. Hands: Comments: 3 puncture carson on the back of the hand, with bruising noted, small pea size lump along 2nd metacarpal area. Mild swelling, non pitting. Skin: General: Skin is warm and dry. Neurological: Mental Status: She is alert and oriented to person, place, and time. Sensory: Sensation is intact. Motor: Motor function is intact. Psychiatric: Mood and Affect: Affect normal. Recording using AP[employer] Green software for draft documentation of the visit was discussed with the patient/authorized lead generation representative; all questions welcomed and answered. Patient/authorized lead generation representative agreed to proceed History and Record Review External record(s) reviewed: prior outpatient record. ASSESSMENT/PLAN: 1. Left wrist pain - ICD9: 719.43, ICD10: M25.532 Appears to be strain, swelling from IV sticks, no bony abnormality Rest, ice, elevation, wrist compression (susy wrap or splint). Tylenol (generic acetaminophen) 500 mg-2 tabs every 8 hrs. as needed for fever and aches Ibuprofen 600 mg (3-200mg tablets) every 6 hours if pain persists beyond 10-14 days there are times where a repeat x-ray is needed to rule out occult fracture Follow up with ortho as needed - XR WRIST GENERAL 3V PA/LAT/OBL LEFT FINDINGS: No acute fracture or dislocation identified. Joint spaces preserved. IMPRESSION: No radiographic evidence of acute osseous injury. Transcribe Date/Time: Feb 16 2025 1:24P Interpreted by : MD Rylee SNEED APRN.[employer]GER [facility] 02-16-2025 History of Present illness Narrative Images from the original note were not included. Subjective The history is provided by the patient. No complaint investigator was used. HPI Omar Gomez is a 39 year old female who presents today for CC of left wrist pain, swelling. Left Wrist Pain and Swelling: - Onset following hernia surgery on Sunday. - Noted a painful lump in the left hand, with persistent numbness in the fingers. - Initially, all three fingers were numb; sensation has returned to some fingers. - Pain extends down the wrist and up the arm; difficulty fully extending the arm. - Denies known trauma; suspects possible injury during surgery. - IV was placed in the left hand during surgery; multiple puncture carson noted. - Applied a wrist brace for support and compression. - injured a few weeks ago, never had it checked - hit it against the corner of a wall. BP 130/90 Pulse 90 Temp 36.9 C (98.5 F) Resp 18 Wt 109.1 kg (240 lb 8.4 oz) LMP 01/22/2025 SpO2 99% BMI 38.82 kg/m Social History Tobacco Use Smoking status: Never Smokeless tobacco: Never Vaping Use Vaping status: Never Used Substance Use Topics Alcohol use: Not Currently Drug use: No PAST MEDICAL HISTORY Diagnosis Date Adjustment disorder with depressed mood Ectopic (HCC) 12/2022 IIH (idiopathic intracranial hypertension) PMH - PAST MEDICAL HISTORY OF 11/10/93-color vision normal Post depression 07/18/2013 hypertension (HCC) PTSD (post-traumatic stress disorder) Unequal pupils left > right I have confirmed and edited as necessary, the PSYCHIATRIC Review of Systems Constitutional: Negative for chills and fever. Musculoskeletal: Positive for joint pain (left wrist). Negative for myalgias. Skin: Negative for itching and rash. All other systems reviewed and are negative. Objective Physical Exam Vitals and nursing note reviewed. Cardiovascular: Pulses: Radial pulses are 2+ on the right side and 2+ on the left side. Pulmonary: Effort: Pulmonary effort is normal. Musculoskeletal: Right wrist: Normal. Left wrist: Swelling and tenderness present. No lacerations, bony tenderness, snuff box tenderness or crepitus. Normal range of motion. Normal pulse. Hands: Comments: 3 puncture carson on the back of the hand, with bruising noted, small pea size lump along 2nd metacarpal area. Mild swelling, non pitting. Skin: General: Skin is warm and dry. Neurological: Mental Status: She is alert and oriented to person, place, and time. Sensory: Sensation is intact. Motor: Motor function is intact. Psychiatric: Mood and Affect: Affect normal. Recording using APGR Green software for draft documentation of the visit was discussed with the patient/authorized lead generation representative; all questions welcomed and answered. Patient/authorized lead generation representative agreed to proceed History and Record Review External record(s) reviewed: prior outpatient record. ASSESSMENT/PLAN: 1. Left wrist pain - ICD9: 719.43, ICD10: M25.532 Appears to be strain, swelling from IV sticks, no bony abnormality Rest, ice, elevation, wrist compression (susy wrap or splint). Tylenol (generic acetaminophen) 500 mg-2 tabs every 8 hrs. as needed for fever and aches Ibuprofen 600 mg (3-200mg tablets) every 6 hours if pain persists beyond 10-14 days there are times where a repeat x-ray is needed to rule out occult fracture Follow up with ortho as needed - XR WRIST GENERAL 3V PA/LAT/OBL LEFT FINDINGS: No acute fracture or dislocation identified. Joint spaces preserved. IMPRESSION: No radiographic evidence of acute osseous injury. Transcribe Date/Time: Feb 16 2025 1:24P Interpreted by : MD Rylee SNEED APRN.[employer]GER documented in this encounter [facility] 02-13-2025 Note HNO ID: [id number] Author: OMAR FERREIRA APRN.[employer] MANAGER Service: ? Author Type: Nurse Practitioner Type: Progress Notes Filed: 02/13/2025 12:01 Note Text: [facility] Clinic Date: February 13, 2025 Omar Gomez 39 year old female CHIEF COMPLAINT: Patient presents for follow up from surgery. HPI: Here for follow up after robotic bilateral TAR, incisional hernia repair with mesh and excision of prior abdominal wall mesh on 02/06/2025 by . Omar reports significant pain, particularly on the right side, since her robotic surgery. She was discharged on 02/08 and has been managing a drain, which has been producing decreasing amounts of fluid, with the last entries showing 30 mL. She reports diarrhea twice daily and a lack of appetite, though she is able to eat intermittently. She denies emesis. She is attempting to ambulate around the house but describes her gait as resembling that of an old woman due to pain. She is not sleeping well. Surgery Date and Procedure: 02/06/2025 1. Left myofascial advancement flap 2. Right myofascial advancement flap 3. Robotic incisional hernia repair with mesh 4. Excision of prior abdominal wall mesh Randomized Controlled Trial: Robotic versus Open Ventral Hernia Repair (ROVHR) Trial Current Medications: Current Outpatient Medications Medication Sig Dispense Refill AMOXICILLIN ORAL Take by mouth. aspirin 81 mg chewable tablet Take 1 tablet by mouth once daily for 6 days. Stop 01/26/25 6 tablet 0 [Paused] aspirin 325 mg tablet Take 1 tablet by mouth once daily. Patient should start on October 22, 2024. 90 tablet 0 acetaZOLAMIDE SR (DIAMOX SEQUELS) 500 mg capsule Take 1 capsule by mouth every evening. 30 capsule 5 metFORMIN ER (GLUCOPHAGE XR) 500 mg 24 hr tablet Take 1 tablet by mouth daily with lunch for 7 days, THEN 1 tablet two times a day with meals. 187 tablet 2 acetaminophen (TYLENOL) 500 mg tablet Take 2 tablets by mouth every 6 hours as needed for pain. LORazepam (ATIVAN) 1 mg tablet Take 1 mg by mouth as needed for anxiety. venlafaxine ER (EFFEXOR XR) 75 mg 24 hr capsule Take 1 capsule by mouth every afternoon. No current facility-administered medications for this visit. REVIEW OF SYSTEMS: Constitutional: (+) decreased appetite, (+) insomnia Gastrointestinal: (+) right-sided abdominal pain, (+) diarrhea, (-) vomiting Musculoskeletal: (+) difficulty ambulating PHYSICAL EXAM: BP 147/94 Pulse 90 Temp 36.9 ?C (98.5 ?F) (Temporal) Ht 167.6 cm (5' 6) Wt 109.8 kg (242 lb 1.6 oz) LMP 01/22/2025 BMI 39.08 kg/m? General: No acute distress. Abd: Small incisions with adhesive, L RAYMUNDO drain SURGICAL PATHOLOGY: N/A ASSESSMENT/PLAN: 1. Postoperative visit (Z48.89) Patient is experiencing significant pain, particularly on the right side, likely due to the presence of a surgical drain. CT scan shows no evidence of fluid collection, clotting, or abscess. Patient has robotic incisions with adhesive. Reports of diarrhea and decreased appetite, but no emesis. Ambulation is limited due to pain. - Removed surgical drain; expect reduction in pain within 24 hours. - Provided wound care instructions: allow soap and water to run over the incision sites during showering, avoid rubbing for the first week, and apply a band-aid after drying. - Recommended Metamucil to help manage diarrhea. - Advised high-protein diet to aid healing; suggested protein-rich foods and shakes. - Encouraged ambulation as tolerated. - Prescribed oxycodone and a muscle relaxant (Robaxin or Flexeril) to reduce pain - Scheduled a virtual follow-up visit on the 17. Omar Ferreira, MSN, [employer]GER February 13, 2025 [facility] 02-13-2025 History of Present illness Narrative [facility] Clinic Date: February 13, 2025 Omar Gomez 39 year old female CHIEF COMPLAINT: Patient presents for follow up from surgery. HPI: Here for follow up after robotic bilateral TAR, incisional hernia repair with mesh and excision of prior abdominal wall mesh on 02/06/2025 by . Omar reports significant pain, particularly on the right side, since her robotic surgery. She was discharged on 02/08 and has been managing a drain, which has been producing decreasing amounts of fluid, with the last entries showing 30 mL. She reports diarrhea twice daily and a lack of appetite, though she is able to eat intermittently. She denies emesis. She is attempting to ambulate around the house but describes her gait as resembling that of an old woman due to pain. She is not sleeping well. Surgery Date and Procedure: 02/06/2025 1. Left myofascial advancement flap 2. Right myofascial advancement flap 3. Robotic incisional hernia repair with mesh 4. Excision of prior abdominal wall mesh Randomized Controlled Trial: Robotic versus Open Ventral Hernia Repair (ROVHR) Trial Current Medications: Current Outpatient Medications Medication Sig Dispense Refill AMOXICILLIN ORAL Take by mouth. aspirin 81 mg chewable tablet Take 1 tablet by mouth once daily for 6 days. Stop 01/26/25 6 tablet 0 [Paused] aspirin 325 mg tablet Take 1 tablet by mouth once daily. Patient should start on October 22, 2024. 90 tablet 0 acetaZOLAMIDE SR (DIAMOX SEQUELS) 500 mg capsule Take 1 capsule by mouth every evening. 30 capsule 5 metFORMIN ER (GLUCOPHAGE XR) 500 mg 24 hr tablet Take 1 tablet by mouth daily with lunch for 7 days, THEN 1 tablet two times a day with meals. 187 tablet 2 acetaminophen (TYLENOL) 500 mg tablet Take 2 tablets by mouth every 6 hours as needed for pain. LORazepam (ATIVAN) 1 mg tablet Take 1 mg by mouth as needed for anxiety. venlafaxine ER (EFFEXOR XR) 75 mg 24 hr capsule Take 1 capsule by mouth every afternoon. No current facility-administered medications for this visit. REVIEW OF SYSTEMS: Constitutional: (+) decreased appetite, (+) insomnia Gastrointestinal: (+) right-sided abdominal pain, (+) diarrhea, (-) vomiting Musculoskeletal: (+) difficulty ambulating PHYSICAL EXAM: BP 147/94 Pulse 90 Temp 36.9 C (98.5 F) (Temporal) Ht 167.6 cm (5' 6) Wt 109.8 kg (242 lb 1.6 oz) LMP 01/22/2025 BMI 39.08 kg/m General: No acute distress. Abd: Small incisions with adhesive, L RAYMUNDO drain SURGICAL PATHOLOGY: N/A ASSESSMENT/PLAN: 1. Postoperative visit (Z48.89) Patient is experiencing significant pain, particularly on the right side, likely due to the presence of a surgical drain. CT scan shows no evidence of fluid collection, clotting, or abscess. Patient has robotic incisions with adhesive. Reports of diarrhea and decreased appetite, but no emesis. Ambulation is limited due to pain. - Removed surgical drain; expect reduction in pain within 24 hours. - Provided wound care instructions: allow soap and water to run over the incision sites during showering, avoid rubbing for the first week, and apply a band-aid after drying. - Recommended Metamucil to help manage diarrhea. - Advised high-protein diet to aid healing; suggested protein-rich foods and shakes. - Encouraged ambulation as tolerated. - Prescribed oxycodone and a muscle relaxant (Robaxin or Flexeril) to reduce pain - Scheduled a virtual follow-up visit on the . Omar Ferreira, MSN, [employer] MANAGER February 13, 2025 What is the reason for your visit today? est Who is your referring physician? Omar Ferreira Are you having poor oral intake? NO Have you had unintentional weight loss of 15 lbs/7 Kg in the last 3-6 months? NO Bowels: diarrhea Wound: clean & dry Temperature: No Drains: Yes RAYMUNDO Error in opening documented in this encounter [facility] 02-13-2025 Note HNO ID: [id number] Author: ?, ?, ? Service: ? Author Type: ? Type: Progress Notes Filed: 02/13/2025 11:40 Note Text: What is the reason for your visit today? est Who is your referring physician? Omar Ferreira Are you having poor oral intake? NO Have you had unintentional weight loss of 15 lbs/7 Kg in the last 3-6 months? NO Bowels: diarrhea Wound: clean AND dry Temperature: No Drains: Yes RAYMUNDO [facility] 02-13-2025 Note HNO ID: [id number] Author: OMAR FERREIRA APRN.CNP Service: ? Author Type: Nurse Practitioner Type: Progress Notes Filed: 02/13/2025 12:01 Note Text: Error in opening [facility] 02-11-2025 Telephone encounter Note Reason for Call: pt c/o severe abdominal pain. Pt states that she recently has surgery Outcome: Go to the ED now Reason for Disposition [1] SEVERE pain (e.g., excruciating) AND [2] present > 1 hour Protocols used: Abdominal Pain - [id number] [facility] 02-11-2025 Miscellaneous Notes Reason for Call: pt c/o severe abdominal pain. Pt states that she recently has surgery Outcome: Go to the ED now Reason for Disposition [1] SEVERE pain (e.g., excruciating) AND [2] present > 1 hour Protocols used: Abdominal Pain - [id number] documented in this encounter [facility] 02-08-2025 Note HNO ID: [id number] Author: RONAK ESCALANTE MD Service: General Surgery Author Type: Resident Type: Progress Notes Filed: 02/09/2025 14:34 Note Text: Documentation Query Please clarify the diagnosis associated with the clinical indicators. Anemia This document will become part of the patient's medical record. [facility] 02-08-2025 Note HNO ID: [id number] Author: KARAN GONZALES RN Service: Nursing Author Type: Registered Nurse Type: Nursing Progress Note Filed: 02/08/2025 16:43 Note Text: 1130 RAYMUNDO drain care and maintenance education given to patient per order. [facility] 02-08-2025 Note HNO ID: [id number] Author: RONAK ESCALANTE MD Service: General Surgery [...] postoperative dressings. 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 Hold home lorazepam, continue [...] General Surgery - PGY 1 Service Pager: [phone] (Bret) INTERVAL EVENTS / PERTINENT REVIEW OF [...] and Airways Line Duration Peripheral 02/07/25 2300 [facility] Short Right Forearm 22 Gauge <1 day Drain Duration Drain/Tube 02/06/25 1614 [facility] Ernie Diaz Left Lower Quadrant Abdomen Drain #1 2 days SURGERY/PROCEDURE: Procedure(s) and Anesthesia Type: * ROBOTIC LAPAROSCOPIC HERNIA REPAIR VENTRAL INITIAL REDUCIBLE W/MESH GREATER THAN 10cm - General [facility] 02-07-2025 Note HNO ID: [id number] Author: RONAK ESCALANTE MD Service: General Surgery [...] postoperative dressings. 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 Hold home lorazepam, continue [...] General Surgery - PGY 1 Service Pager: [phone] (Bret) INTERVAL EVENTS / PERTINENT REVIEW OF [...] <1 day Drain Duration Drain/Tube 02/06/25 1614 [facility] Ernie Diaz Left Lower Quadrant Abdomen Drain #1 <1 day Indwelling Urinary Catheter 02/06/25 1100 [facility] Delgado 16 Fr <1 day SURGERY/PROCEDURE: Procedure(s) and Anesthesia Type: * ROBOTIC LAPAROSCOPIC HERNIA REPAIR VENTRAL INITIAL REDUCIBLE W/MESH GREATER THAN 10cm - General [facility] 02-07-2025 Note HNO ID: [id number] Author: MARVNI HENRIQUEZ MD Service: General Surgery Author Type: [...] Henriquez MD General Surgery Resident Night Pager [phone] [facility] 02-06-2025 Note HNO ID: [id number] Author: SHONDA RAO APRN.OIL PAINTER Service: ? Author Type: Nurse Manager Voice Type: Anesthesia Procedure Notes Filed: 02/06/2025 11:31 Note Text: ANESTHESIOLOGY PROCEDURE NOTE PIV General Information Procedure Start Time/Medication Administration: 02/06/2025 10:50 AM Procedure End Time: 02/06/2025 10:50 AM Patient Location: OR Staffing OIL PAINTER: Shonda Rao APRN.OIL PAINTER Performed by: CATALINA Preparation Site Prep: alcohol Procedure Details Indication: need for IV access Needle Size/Type: 18 gauge angiocath Orientation: Right Location: Hand Imaging Guidance Used: No SIGNATURE: Shonda Rao APRN.CRNA PATIENT NAME: Omar Gomez DATE: February 06, 2025 TIME: 11:30 AM CSN: [id number] [facility] 02-06-2025 Note HNO ID: [id number] Author: SHONDA RAO APRN.OIL PAINTER Service: ? Author Type: Nurse Manager Voice Type: Anesthesia Procedure Notes Filed: 02/06/2025 11:25 Note Text: ANESTHESIOLOGY PROCEDURE NOTE Airway General Information Procedure Start Time/Medication Administration: 02/06/2025 10:50 AM Procedure End Time: 02/06/2025 10:50 AM Patient location during procedure: OR Timeout Performed Pre-procedure: timeout performed Consent Obtained: Yes Patient identity confirmed: arm band and patient Staffing OIL PAINTER: Shonda Rao APRN.OIL PAINTER Performed by: CATALINA Indications and Patient Condition Indications for airway management: anesthesia and airway protection Preoxygenated: yes anesthesia circuit Method: asleep Cricoid Pressure: No Manual In-Line Stabilization: No Difficult Mask: No Final Airway Details Final airway type: endotracheal airway Final Endotracheal Airway: ETT Cuffed: yes Successful intubation technique: video laryngoscopy Devices used: Locu Endotracheal tube insertion site: oral Blade size: #3 ETT size (mm): 7.0 Measured from: lips Measurement (cm): 22 Placement verified by: capnometry Cormack-Lehane Classification: grade I - full view of glottis Number of attempts at approach: 1 Failed airway: no Airway not difficult SIGNATURE: Shonda Rao APRN.CRNA PATIENT NAME: Omar Gomez DATE: February 06, 2025 TIME: 11:24 AM CSN: [id number] [facility] 02-02-2025 Telephone encounter Note Reason for Call: Patient calling with concern for wisdom tooth pain x 1 week that is worsening today. Outcome: Advised to SEE DENTIST/PCP WITHIN 24 HOURS. Patient verbalized understanding and is agreeable to the plan. Transferred to [facility] at the appointment center for scheduling. Reason [...] are not effective for pain. Protocols used: [id number]-CJ [facility] 02-02-2025 Miscellaneous Notes Reason for Call: Patient calling with concern for wisdom tooth pain x 1 week that is worsening today. Outcome: Advised to SEE DENTIST/PCP WITHIN 24 HOURS. Patient verbalized understanding and is agreeable to the plan. Transferred to [facility] at the appointment center for scheduling. Reason [...] are not effective for pain. Protocols used: [id number] documented in this encounter [facility] 01-22-2025 Note HNO ID: [id number] Author: DE GILL, PhD Service: ? Author Type: Psychologist Type: Progress Notes Filed: 01/22/2025 16:41 Note Text: Behavioral [facility] [place] Name: Omar Gomez MR#: [id number] Date: 01/22/2025 Time: ? hour Referred by: [...] could be seen again. De Marshall, Ph.D. [facility] 01-22-2025 History of Present illness Narrative Behavioral [facility] [place] Name: Omar Gomez MR#: [id number] Date: 01/22/2025 Time: hour Referred by: Dr. [...] De Marshall, Ph.D. documented in this encounter [facility] 01-22-2025 Instructions Astrid Vuong APRN.SODA FOUNTAIN MANAGER - 01/22/2025 2:45 PM EDT Images from the original note were not included. [facility] Pre[facility]Anesthesia Consultation [facility] PATIENT PREOPERATIVE INSTRUCTIONS Omar Ferreira APRN.C* has scheduled you for your procedure at this surgery center: If no call by 4pm the day before surgery, please call this number. [facility] [place] Scheduling Office: [phone] --[address] [place] [address]. Please read below carefully for your personalized [...] office. If you are currently using a uwey-hng-cdip injectable or oral medication for diabetes or [...] Procedures: - YOU MUST HAVE A RESPONSIBLE RECRUITING ADMINISTRATOR TAKE YOU HOME. A THROUGH FREIGHT ENGINEER OR COMPLIANCE OFFICER CANNOT BE MADE A RESPONSIBLE RECRUITING ADMINISTRATOR. - We recommend that a responsible person [...] call the Sunday before. Your surgeon s batter out will tell you what time to call the office. - If you have not reached the departmental batter out by 5 P.M., call [phone] after 5 P.M. the day before your surgery. Please be aware that emergency situations arise, which may delay or change your surgical time. If this happens, we will notify you as soon as possible and regret any inconvenience. If you already have an Advance Directive, please fax a copy to [phone] or email to for it to be [...] Astrid Vuong APRN.KAYY documented in this encounter [facility] 01-22-2025 History and physical note Images from [...] Follows with [facility] 01/2025 Sugey Allan TITLE I ASSISTANT ASA 81 sp TSJ stent, will complete [...] stent 10/2023. Positive for: headaches. Negative for: LAW ENFORCEMENT INSTRUCTOR tumor, delirium, dementia, hemiplegia, multiple sclerosis, Parkinson's [...] chest pain, CHF, DVT/PE, hyperlipidemia, hypertension, recent NM, murmur/valvular heart disease, PTCA, PVD, open heart [...] urinary incontinence, renal failure and self catheterization. MANUFACTURING GROUP LEADER: Negative for abnormal vaginal bleeding, abnormal vaginal [...] 378 QTC Calculation (Bazett) 425 Calculated P [place] 51 Calculated R [place] 65 Calculated T [place] 32 Impression NORMAL SINUS RHYTHM NORMAL ECG No results found for this or any previous visit (from the past 00275 hours). Instructions Given to Patient: Instructions located in the after visit summary. Patient given verbal and written preop instructions and voices comprehension and compliance. SIGNATURE: Astrid Vuong APRN.CNP PATIENT NAME: Omar Gomez DATE: January 23, 2025 TIME: 3:36 PM PAGER/CONTACT #: [facility] 01-22-2025 History and physical note Images from [...] Follows with [facility] 01/2025 Sugey Allan TITLE I ASSISTANT ASA 81 sp TSJ stent, will complete [...] stent 10/2023. Positive for: headaches. Negative for: LAW ENFORCEMENT INSTRUCTOR tumor, delirium, dementia, hemiplegia, multiple sclerosis, Parkinson's [...] chest pain, CHF, DVT/PE, hyperlipidemia, hypertension, recent NM, murmur/valvular heart disease, PTCA, PVD, open heart [...] urinary incontinence, renal failure and self catheterization. MANUFACTURING GROUP LEADER: Negative for abnormal vaginal bleeding, abnormal vaginal [...] 378 QTC Calculation (Bazett) 425 Calculated P [place] 51 Calculated R [place] 65 Calculated T [place] 32 Impression NORMAL SINUS RHYTHM NORMAL ECG No results found for this or any previous visit (from the past 99002 hours). Instructions Given to Patient: Instructions located in the after visit summary. Patient given verbal and written preop instructions and voices comprehension and compliance. SIGNATURE: Astrid Vuong APRN.CNP PATIENT NAME: Omar Gomez DATE: January 23, 2025 TIME: 3:36 PM PAGER/CONTACT #: documented in this encounter [facility] 01-13-2025 Note HNO ID: [id number] Author: SUGEY ALLAN APRN.CNP Service: ? Author Type: Nurse Practitioner Type: Progress Notes Filed: 01/13/2025 17:30 Note Text: Cerebrovascular Center: Cerebrovascular Neurosurgery and Endovascular Surgical Neuroradiology Virtual Visit Patient consents to this virtual visit using [employer] Zoom Video Visit. The visit required patient-provider interaction for the medical decision making as documented below. I have communicated my name and active licensure. The patient's identity and physical location were verified at the time of this visit. Either the patient or their legal lead generation representative has been informed of the risks and benefits of -- and alternatives to -- treatment through a remote evaluation and consents to proceed with the evaluation remotely. Omar Gomez [facility]#: [id number] Date of Service: 01/13/2025 Primary Care Provider: [...] Neurological: (-) numbness/tingling, (-) weakness Sugey Allan, PERINATAL SPECIALIST.SODA FOUNTAIN MANAGER ACTIVE PROBLEM LIST Abdominal Pain, Right Lower [...] mg tablet Take (more content not included)... [facility] 01-13-2025 History of Present illness Narrative Images from the original note were not included. Cerebrovascular Center: Cerebrovascular Neurosurgery and Endovascular Surgical Neuroradiology Virtual Visit Patient consents to this virtual visit using [employer] Zoom Video Visit. The visit required patient-provider interaction for the medical decision making as documented below. I have communicated my name and active licensure. The patient's identity and physical location were verified at the time of this visit. Either the patient or their legal lead generation representative has been informed of the risks and benefits of -- and alternatives to -- treatment through a remote evaluation and consents to proceed with the evaluation remotely. Omar Gomez [facility]#: [id number] Date of Service: 01/13/2025 Primary Care Provider: No PCP Collaborating Physician: Dr. 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 Patient originally presented to Dr. Morton's clinic on 10/3/24 r/t IIH dx in 2022 with evidence [...] Neurological: (-) numbness/tingling, (-) weakness Sugey Allan, PERINATAL SPECIALIST.SODA FOUNTAIN MANAGER ACTIVE PROBLEM LIST Abdominal Pain, Right Lower [...] contrast (will be provided with radiology test) [facility] Brain Inject, intravenously, once for 1 dose. [...] which included preparing to see the patient, juhm-rx-zqmw patient care, completing clinical documentation, obtaining and/or reviewing separately obtained history, performing a medically appropriate examination, counseling and educating the patient/family/caregiver, communicating with other HCPs (not separately reported), independently interpreting results (not separately reported), and communicating results to the patient/family/caregiver. Recording using [employer] Green software for draft documentation of the visit was discussed with the patient/authorized lead generation representative; all questions welcomed and answered. Patient/authorized lead generation representative agreed to proceed SIGNATURE Sugey Allan APRN.CNP 01/13/[address] Eldon Morton documented in this encounter [facility] 01-08-2025 History of Present illness Narrative Radiology [...] PATIENT PRESENTS WITH AN IMPLANTABLE OR ATTACHED FIRE TENDER: No RADIOLOGY DEPARTMENT: MR; Exam(s) Completed: Head: Sagittal Sinus MRV. Lavender Administered: No PERIPHERAL IV DATA: Site assessment: Clean,Dry and Intact, Site disposition Discontinued SIGNED BY: RT Davis([place]) January 08, 2025 1:11 PM documented in this encounter [facility] 01-08-2025 Note HNO ID: [id number] Author: JOVITA JOHNS RT(R) Service: Radiology Author Type: Blow Pit Operator Type: Progress Notes Filed: 01/08/2025 13:12 Note [...] PATIENT PRESENTS WITH AN IMPLANTABLE OR ATTACHED FIRE TENDER: No RADIOLOGY DEPARTMENT: MR; Exam(s) Completed: Head: Sagittal Sinus MRV. Lavender Administered: No PERIPHERAL IV DATA: Site assessment: Clean,Dry and Intact, Site disposition Discontinued SIGNED BY: RT Davis(R) January 08, 2025 1:11 PM [facility] 01-08-2025 Note HNO ID: [id number] Author: PERLA RIVAS RN Service: Nursing Author [...] DATE: January 08, 2025 TIME: 11:46 AM [facility] 11-10-2024 Note HNO ID: [id number] Author: JASWANT ASKEW MD Service: ? Author [...] (ROVHR) Trial IRB NO.: # [id number] SR TECHNICAL SALES CONSULTANT: Julien Avelar MD WAITER/WAITRESS FORMAL: Garo Monteiro MD CONTACT: [email or web address] Consenting was performed by the attending surgeon, in a inno-fc-acke manner, during preoperative evaluation in General Surgery [...] by pre-operative CT scan [] [x] ' [facility] 11-10-2024 History of Present illness Narrative [...] (ROVHR) Trial IRB NO.: # [id number] SR TECHNICAL SALES CONSULTANT: Julien Avelar MD WAITER/WAITRESS FORMAL: Garo Monteiro MD CONTACT: [email or web address] Consenting was performed by the attending surgeon, in a ftqm-yx-fhfj manner, during preoperative evaluation in General Surgery [...] No Drains: No documented in this encounter [facility] 11-10-2024 History and physical note Images from [...] (2010), umbilical hernia repair with mesh (2011, [facility]), 2 C-sections (2009, 2012), 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 SIGNATURE: Andrew Salgado, MS III PATIENT NAME: Omar Gomez DATE: November 10, 2024 TIME: 1:47 PM PAGER/CONTACT #: [phone] documented in this encounter [facility] 11-10-2024 Note HNO ID: [id number] Author: BELEN MALLORY MA Service: ? Author Type: Child Care Development Specialist Type: Progress Notes Filed: 11/10/2024 15:54 Note Text: What is the reason for your visit today? Consult Who is your referring physician? Dr. Askew Are you having poor oral intake? NO Have you had unintentional weight loss of 15 lbs/7 Kg in the last 3-6 months? YES Bowels: regular Wound: clean AND dry Temperature: No Drains: No [facility] 10-14-2024 Telephone encounter Note Spoke with patient and recommended being evaluated in ED for urgent imaging. Patient will go to [facility]. Will look for imaging and ED report. [facility] 10-14-2024 Miscellaneous Notes Spoke with patient and recommended being evaluated in ED for urgent imaging. Patient will go to [facility]. Will look for imaging and ED report. documented in this encounter [facility] 10-10-2024 Instructions Sugey Allan APRN.KAYY - 10/10/2024 [...] stiffness and vomiting. documented in this encounter [facility] 10-08-2024 History of Present illness Narrative Images from the original note were not included. [facility] Cerebrovascular Neurosurgery and Neurointerventional Radiology Post-Op Visit Omar Gomez CC#: [id number] Date of Service: 10/08/2024 Collaborating Physician: Dr. [...] ENDOVASC ROS - See HPI Sugey Allan, PERINATAL SPECIALIST.SODA FOUNTAIN MANAGER ACTIVE PROBLEM LIST Abdominal Pain, Right Lower [...] desean. Will look into insurance issue Called [facility] who stated that fill was too soon [...] ongoing symptoms. Will send phone number via [employer] for scheduling. Continue to f/up with ophthalmology as recommended. I spent a total of 30 minutes on the date of the service which included preparing to see the patient, ahdn-sj-yyvm patient care, completing clinical documentation, obtaining and/or reviewing separately obtained history, performing a medically appropriate examination, counseling and educating the patient/family/caregiver, ordering medications, tests, or procedures, communicating with other HCPs (not separately reported), independently interpreting results (not separately reported), communicating results to the patient/family/caregiver, and care coordination (not separately reported). SIGNATURE Sugey Allan APRN.CNP 10/08/2024 CC Chula Morton MD documented in this encounter [facility] 10-08-2024 Note HNO ID: [id number] Author: SUGEY ALLAN APRN.CNP Service: ? Author Type: Nurse Practitioner Type: Progress Notes Filed: 10/10/2024 14:12 Note Text: [facility] for Cerebrovascular Neurosurgery and Neurointerventional Radiology Post-Op Visit Omar Gomez [facility]#: [id number] Date of Service: 10/08/2024 Collaborating Physician: Dr. [...] ENDOVASC ROS - See HPI Sugey Allan, PERINATAL SPECIALIST.SODA FOUNTAIN MANAGER ACTIVE PROBLEM LIST Abdominal Pain, Right Lower [...] contrast (will be provided with radiology test) [facility] Brain Inject, intravenously, once for 1 dose. [...] 1 Drop (ALCAIN (more content not included)... [facility] 10-08-2024 Note HNO ID: [id number] Author: SUE MEAD LISW Service: ? Author Type: Analytical Manager Type: Progress Notes Filed: 10/08/2024 11:48 Note [...] questions or concerns. Unable To Reach Patient LADAN Reaves PRN Analytical Manager Covering [facility] Neuro Outpatient [facility] 10-06-2024 Telephone encounter Note Received message from Dr Colón that patient is not taking aspirin and plavix states that she is out of medication. Followed up with patient that she had medication sent to [facility] per request 2 weeks ago, patient states she lives near [facility] this pharmacy. New orders placed for HAYDEE to sign now. Reviewed instructions to stop plavix when prescription is complete, continue aspirin until December [facility] 10-06-2024 Miscellaneous Notes Received message from Dr Colón that patient is not taking aspirin and plavix states that she is out of medication. Followed up with patient that she had medication sent to [facility] per request 2 weeks ago, patient states she lives near [place] not this pharmacy. New orders placed for HAYDEE to sign now. Reviewed instructions to stop plavix when prescription is complete, continue aspirin until December documented in this encounter [facility] 10-06-2024 Note Date of Procedure 10/06/2024. Blow Pit Operator Information Corporate Human Resources Manager: RW. Start time: 11:09 AM. Stop time: 11:21 AM. Patient IS allergic to adhesive bandages. Non adhesive bandage was used. . Reliability Right Eye Good. Left Eye Good. Interpretation Right Eye Normal. Left Eye Enlarged Blind Spot, Non-specific defect. Interval Change Right Eye Better. Left Eye Better. [facility] 10-06-2024 Note Date of Procedure 10/06/2024. Blow Pit Operator Information Corporate Human Resources Manager: SB. Start time: 11:31 AM. Quality Right Eye Good. Left Eye Good. NFL Interpretation Right Eye Normal. Left Eye RNFL Thickening. Ganglion Cell Layer Thickness Right Eye Normal. Left Eye Normal. Interval Change Right Eye Stable. Left Eye Better. Notes Minimal residual peripapillary retinal nerve fiber layer rim elevation [facility] 10-06-2024 Note Date of Procedure 10/06/2024. Blow Pit Operator Information Corporate Human Resources Manager: SB. Start time: 11:31 AM. Interval Change Right Eye Better. Left Eye Better. Notes Minimal residual optic disc elevation both eyes [facility] 10-06-2024 Note HNO ID: [id number] Author: MIKAEL COLÓN MD Service: ? Author [...] which the openin (more content not included)... [facility] 10-06-2024 History of Present illness Narrative [...] BMP with results to be communicated via [employer] though it was evidently cancelled. She noted [...] visit. She was also working with a automotive instructor to discuss weight loss since she had [...] update me in a few weeks via [employer] as to how she was doing on [...] others. I have seen and examined Omar Crump Gomez. I have discussed the case and [...] the day of service that includes both qfgy-mg-dpdm and jzi-vbmo-vr-face time. This time was separate from any [...] and voiced understanding. documented in this encounter [facility] 10-02-2024 Telephone encounter Note Appointments scheduled: 3-month with Rylee Gregory on 01/03/2025 and 6-month with Dr Campo on 05/04/2025. Thank you, Divya Gunderson [facility] 10-02-2024 Miscellaneous Notes Appointments scheduled: 3-month with Rylee Gregory on 01/03/2025 and 6-month with Dr Campo on 05/04/2025. Thank you, Divya Gunderson Last read by Omar Gomez at 2:02 PM on 09/26/2024. Nitza Arreola 1st attempt Mc sent Bioinformaticist in [address] Campo in 6 months, needs to see dietary and exercise physiology- and general surg documented in this encounter [facility] 09-30-2024 Telephone encounter Note Duplicate order from Sunday [facility] 09-30-2024 Miscellaneous Notes Duplicate order from Sunday documented in this encounter [facility] 09-29-2024 Telephone encounter Note Last read by Omar Gomez at 2:02 PM on 09/26/2024. Nitza Arreola [facility] 09-26-2024 Telephone encounter Note Refill request pended to HAYDEE for signature for updated pharmacy [facility] 09-26-2024 Miscellaneous Notes Refill request pended to HAYDEE for signature for updated pharmacy CV PHONE Name of caller : Olga Relationship to patient : Provider If not self Will need patient permission to release results or disclose health information with called documented in fyi. Patient identified by Name and Date of . ( Omar Gomez, 1985). Yes Number to return call [phone] Reason for Call: Olga is calling from [facility] regarding refills for Plavix 75mg and Aspirin 325 mg. Please call to verify prescriptions for refills. P.S Patient missed her Post Op with Meena Mikula. Caller was requested a refill from Meena. Sent to provider pool to forward for review. Thank you calling [facility]. You will receive a return call within 48 hours ( or 2 business days if close to the weekend). If you feel that this is an urgent issue and needs immediate attention, it is recommended that you contact your primary care provider office or proceed to your nearest Urgent Care Center of Emergency Room ED for evaluation/treatment. documented in this encounter [facility] 09-26-2024 Telephone encounter Note CV PHONE Name of caller : Olga Relationship to patient : Provider If not self Will need patient permission to release results or disclose health information with called documented in fyi. Patient identified by Name and Date of . ( Omar Gomez, 1985). Yes Number to return call [phone] Reason for Call: [facility] for Plavix 75mg and Aspirin 325 mg. Please call to verify prescriptions for refills. P.S Patient missed her Post Op with Meena Mikula. Caller was requested a refill from Meena. Sent to provider pool to forward for review. Thank you calling [facility]. You will receive a return call within 48 hours ( or 2 business days if close to the weekend). If you feel that this is an urgent issue and needs immediate attention, it is recommended that you contact your primary care provider office or proceed to your nearest Urgent Care Center of Emergency Room ED for evaluation/treatment. [facility] 09-26-2024 Telephone encounter Note 1st attempt Mc sent Bioinformaticist [place] [address] Campo in 6 months, needs to see dietary and exercise physiology- and general surg [facility] Work Phone: 01-17-2025 Instructions Rhianna Campo MD - 09/26/2024 1:36 [...] peas- Breakfast protein options: cottage cheese , ethiopian yogurt, eggs or egg whites , organic crunchy peanut butter( max of 2 tablespoons) - limit protein servings to 30 to 35 gms with each meal Lunch and Dinner protein options : 4 oz fish/ chicken/ turkey , vegan protein: hummus, beans, chick peas, tofu add a Probiotic- PB8 - BUY FROM [employer]: helps with healthy gut microbiome, helps with healthy weight and optimal cardiac health . ------- Chair exercises 3/ week- You tube videdos add resistance training 2/ week ( upper body and lower body )- 10 min sessions on You tube videos documented in this encounter [facility] 09-26-2024 Note HNO ID: [id number] Author: RHIANNA CAMPO MD Service: ? Author [...] weekly, planning to start equine therapy - funeral home general manager Pertinent Labs TSH Date Value Ref Range [...] 12/2022 IIH (idio (more content not included)... [facility] 09-26-2024 History of Present illness Narrative [...] weekly, planning to start equine therapy - funeral home general manager Pertinent Labs TSH Date Value Ref Range [...] contrast (will be provided with radiology test) [facility] Brain Inject, intravenously, once for 1 dose. [...] visit. Either the patient or their legal lead generation representative has been informed of the risks and benefits of -- and alternatives to -- treatment through a remote evaluation and consents to proceed with the evaluation remotely. Rhianna Campo MD Obesity Medicine Endocrinology and Metabolism [place] [facility] documented in this encounter [facility] 09-22-2024 Note Exam Date Time Procedure Performing Provider Status 09/22/24 10:53 AM US Pelvis Non-OB W/Transvaginal SINAI MORRELL MD; Auth (Verified) [id number] ORIGINAL EXAMINATION: Ultrasound pelvis, 09/22/2024 10:57 am [...] 09/22/2024 4:32:39 PM Ordering Provider: SEEMA BULLOCK [facility]01-13-2025 Note. MICRO - Microbiology PROCEDURE: Urine Culture [...] Locations *1: This test was performed at: [facility], [address] [place] [address], [facility]- , [facility]01-10-2025 Hospital Discharge instructions Patient Education 09/19/2024 [...] swelling in the outer vaginal area (labia) [id number] [employer]. [address] [place] [address], [place] [address]. All rights reserved. This information is not [...] are taking other medicines. You may use xxei-htk-xjisrdd medicine to control pain, unless another pain medicine was prescribed.If you have chronic conditions like diabetes, liver or kidney disease, stomach ulcers, gastrointestinal bleeding, or are taking blood thinner medicines. Be careful if you are given pain medicines, narcotics, or medicine for muscle spasm. They can causedrowsiness, and can affect your coordination, reflexes, and judgment. Do not drive or operate heavymachinery. Follow-up care Follow up with your healthcare [...] or as directed by your healthcare provider [phone] [employer]. [address] [place] [address]. All rights reserved. This information is not intended as a substitute for professional medical care. Always follow yourhealthcare professional's instructions. Follow Up Care 09/19/2024 18:46:44 With:Follow up with primary care provider Address:Unknown When:2-4 days [facility] 01-10-2025 Note Discharge Instructions Thank you for allowing [facility] to assist you with your healthcare needs. [...] 12 hours Duration: 10 Days Pickup at [facility]/pharmacy #[id number] Unchanged acetaminophen-oxyCODONE (acetaminophen-oxyCODONE 325 mg-5 mg oral [...] as needed for anxiety Unchanged Misc Medication ([facility] ASPIRIN 325 MG TABLET) TAKE 1 TABLET BY MOUTH EVERY DAY Unchanged ondansetron (Zofran 4 mg oral tablet) 1 tab(s) by mouth Every 6 hours Duration: 5 Days Unchanged pantoprazole (pantoprazole 40 mg oral enteric coated tablet) 1 tab(s) by mouth Once a day Unchanged propranolol (propranolol 10 mg oral tablet) Unchanged venlafaxine (venlafaxine 75 mg oral capsule, extended release) Pharmacy Information [facility]/pharmacy #[id number]: [address], [place] [phone] Please take this list to your next [...] swelling in the outer vaginal area (labia) [phone] [employer]. [address] [place] [address]. All rights reserved. This information is not [...] are taking other medicines. You may use bnhq-uul-klqucmm medicine to control pain, unless another pain medicine was prescribed.If you have chronic conditions like diabetes, liver or kidney disease, stomach ulcers, gastrointestinal bleeding, or are taking blood thinner medicines. Be careful if you are given pain medicines, narcotics, or medicine for muscle spasm. They can causedrowsiness, and can affect your coordination, reflexes, and judgment. Do not drive or operate heavymachinery. Follow-up care Follow up with your healthcare [...] or as directed by your healthcare provider [phone] [employer]. [address] [place] [address]. All rights reserved. This information is not intended as a substitute for professional medical care. Always follow yourhealthcare professional's instructions. Additional Information VACCINATE! IT SAVES LIVES! Members of the community who have not yet received the COVID-19 vaccine and would like to receive it can visit one of [facility] vaccine clinics. There are many vaccine clinic locations within the [facility]. For locations and available times, please visit www.gettheshot.coronavirus.[place].gov/. It is important to note that some COVID mobile vaccine clinics are held outdoors and may be canceled in rainy or stormy conditions. To learn more about pediatric vaccinations (ages 5-11), we invite you to visit the [facility] webpage. https://www.[facility].org/pages/4836-Uplbj-Zsrohfskycs-Wwnovzmbai-Wfkrd-Zin stions.htmlTo learn more about the COVID-19 vaccine, we invite you to visit the CDC website for a list of frequently asked questions. https://www.cdc.gov/coronavirus/2019-ncov/vaccines/faq.html [facility] Patient Portal Access Instructions: Stay connected with your healthcare team and access your personal medical information anytime with the [facility] Patient Portal. If you would like a full copy of your medical records please contact the [facility] Medical Records Department Sunday through Sunday between 8a.m. and 4:30p.m. Please follow the directions below to access the portal: 1.Access the email account you provided upon registration to the [facility].2.Look for an invitation email from [facility].3.Open the email and access the invitation link: Accept Invitation to [facility].Fill in the required carson to create your account. Sign into [email or web address] with your username and password that you [...] you will allow to register on the [facility] Patient Portal for access to your information. You can also access the [facility] Patient Portal on the [employer] haydee. Simply click on Health Records under [employer] and then click on the Laura logo. [...] Call your local pharmacy or go to http://bit.ly/0Q0Yz2o to find one close to you.3.Make use of household items: Use cat litter or old coffee grounds to dispose medications if other options arenot available. Mix your drugs with these household products, seal them in an airtight container andthrow it into the garbage. Call [facility]: [phone] to be sure your drugs can be [...] aware that I should contact my doctor. Patient/Attorney Lawyer Signature: Date/Time: Relationship to Patient: Witness Name/Signature: Date/Time: [facility]01-10-2025 Note* Exam Date Time Procedure Performing Provider Status 09/19/24 8:[address] Abdomen/Pelvis w/o Contrast DEQUAN THORPE MD; Auth (Verified) [id number] ORIGINAL EXAMINATION: CT OF THE ABDOMEN AND [...] Sign Date: 09/19/2024 8:29:33 PM Ordering Provider: [facility]12-24-2024 Telephone encounter Note* Telephone Encounter - Geovanna Reyna - 09/02/2024 9:14 AM EST Pharmacy refill request for Pantoprazole 40 mg tablet Pharmacy on file verified as [facility] Pharmacy # [id number] [facility]12-24-2024 Miscellaneous Notes* Telephone Encounter - Daphnie Shahid Geovanna Landry - 09/02/2024 9:14 AM EST Pharmacy refill request for Pantoprazole 40 mg tablet Pharmacy on file verified as [facility] Pharmacy # [id number] documented in [facility] Evaluation + Plan note Future Scheduled Tests Radiology* US Pelvis Non-OB W/Transvaginal 09/01/24 [facility] 12-17-2024 Note. MICRO - Microbiology PROCEDURE: Urine [...] Locations *1: This test was performed at: [address], [facility] , [facility]12-16-2024 Hospital Discharge instructions Patient Education 08/25/2024 [...] another medicine was prescribed, you can use jeru-upm-qtrqwre medicines for pain, fever, or discomfort. If [...] when crying, sunken eyes, or dry mouth [phone] [employer]. [address] [place] [address]. All rights reserved. This information is not intended as a substitute for professional medical care. Always follow yourhealthcare professional's instructions. Follow Up Care 08/24/2024 23:30:13 With:Follow up with primary care provider Address:Unknown When:2-4 days [facility] 12-16-2024 Note Discharge Instructions Thank you for allowing [facility] to assist you with your healthcare needs. [...] When Why Instructions Last Dose New acetaminophen-hydrocodone ([place] 325- 5 mg oral tablet) 1 tab(s) [...] another medicine was prescribed, you can use lmff-bkm-gysihnn medicines for pain, fever, or discomfort. If [...] when crying, sunken eyes, or dry mouth [phone] [employer]. [address] [place] [address]. All rights reserved. This information is not intended as a substitute for professional medical care. Always follow yourhealthcare professional's instructions. Additional Information VACCINATE! IT SAVES LIVES! Members of the community who have not yet received the COVID-19 vaccine and would like to receive it can visit one of [facility] vaccine clinics. There are many vaccine clinic locations within the [facility]. For locations and available times, please visit www.gettheshot.coronavirus.[place].gov/. It is important to note that some COVID mobile vaccine clinics are held outdoors and may be canceled in rainy or stormy conditions. To learn more about pediatric vaccinations (ages 5-11), we invite you to visit the [facility] webpage. https://www.[facility].org/pages/5937-Ruysd-Fhrnqptllwb-Zkrxlpnfax-Ywzuy-Bur stions.htmlTo learn more about the COVID-19 vaccine, we invite you to visit the CDC website for a list of frequently asked questions. https://www.cdc.gov/coronavirus/2019-ncov/vaccines/faq.html [facility] Patient Portal Access Instructions: Stay connected with your healthcare team and access your personal medical information anytime with the [facility] Patient Portal. If you would like a full copy of your medical records please contact the [facility] Medical Records Department Sunday through Sunday between 8a.m. and 4:30p.m. Please follow the directions below to access the portal: 1.Access the email account you provided upon registration to the [facility].2.Look for an invitation email from [facility].3.Open the email and access the invitation link: Accept Invitation to [facility]4.Fill in the required carson to create your account. Sign into [email or web address] with your username and password that you [...] you will allow to register on the [facility] Patient Portal for access to your information. You can also access the [facility] Patient Portal on the [employer] haydee. Simply click on Health Records under [employer] and then click on the [employer] logo. HOW TO SAFELY DISPOSE OF PRESCRIPTION [...] Call your local pharmacy or go to http://[employer].Easiaid/4G9Cs7b to find one close to you.3.Make use of household items: Use cat litter or old coffee grounds to dispose medications if other options arenot available. Mix your drugs with these household products, seal them in an airtight container andthrow it into the garbage. Call [facility]: [phone] to be sure your drugs can be [...] aware that I should contact my doctor. Patient/Attorney Lawyer Signature: Date/Time: Relationship to Patient: Witness Name/Signature: Date/Time: [facility]12-16-2024 Note ORIGINAL EXAMINATION: CT OF THE ABDOMEN [...] Date: 08/25/2024 12:51:24 AM [facility]ing [facility] Evaluation + Plan note Diagnostic Tests Pending * Urine Culture 08/24/24 [facility] 11-27-2024 NoteHNO ID: [id number] Author: MURPHY KINCAID MD Service: ? Author [...] BID PRN to get her through the holiday weekend; she plans to call her established mental health providers early next week [facility] NoteHNO ID: [id number] Author: WILLIAMS JOHNSON APRN.[employer]A FOUNTAIN MANAGER Service: Interventional Radiology Author Type: Nurse Practitioner Type: Progress Notes Filed: 07/30/2024 09:06 Note Text: ENDOVASCULAR SURGICAL NEURORADIOLOGY Progress Note SERVICE DATE: 07/30/2024 SERVICE TIME: 804 CHIEF COMPLAINT: IIH HPI: Omar Gomez is [...] Austin Bustamante MD 325 mg at 07/30/[address] 40 mg tab(s) (PROTONIX) 40 mg ORAL DAILY (6 AM) Austin Bustamante MD 40 mg at 07/30/24 06 ondansetron (PF) 4 mg injection (ZOFRAN) 4 mg INTRAVENOUS q 6 H PRN Austin Bustamante MD acetaminophen 1,000 mg tab(s) (TYLENOL) 1,000 mg ORAL q 6 H PRN Austin Bustamante MD 1,000 mg at 07/29/241953 methocarbamol 500 mg tab(s) (ROBAXIN) 500 mg ORAL TID PRN Austin Bustamante MD 500 mg at 07/30/24 08 magnesium sulfate iv piggyback in sterile water [...] for discharge home today. SIGNATURE: Williams Johnson APRN.KAYY PATIENT NAME: Omar Gomez DATE: July 30, 2024 TIME: 9:04 [facility]11-19-2024 NoteHNO ID: [id number] Author: AUSTIN BUSTAMANTE MD Service: Neuroendovascular Intervention [...] as per order set Austin Bustamante MD ES Fellow [phone]24 NoteHNO ID: [id number] Author: IHSAN FRAGOSO MD Service: ? Author Type: Anesthesiologist Type: Anesthesia Procedure Notes Filed: 07/29/2024 11:44 Note Text: ANESTHESIOLOGY PROCEDURE NOTE PIV General Information Procedure Start Time/Medication Administration: 07/29/2024 11:44 AM Procedure End Time: 07/29/2024 11:44 AM Patient Location: OR Staffing Anesthesiologist: Ihsan Fragoso MD OIL PAINTER: Shabana Sharp APRN.OIL PAINTER Performed by: OIL PAINTER Preparation Sterility Preparation: skin prep agent completely dried prior to procedure Sterility Technique Not Completely Performed Due to Extreme Emergency: No Site Prep: alcohol Procedure Details Indication: need for IV access Needle Size/Type: 20 gauge angiocath Orientation: Left Location: Wrist Imaging Guidance Used: No SIGNATURE: Ihsan Duron MD PATIENT NAME: Omar Gomez DATE: July 29, 2024 TIME: 11:44 AM CSN: [id number] [facility] Hospital11-19-2024 NoteHNO ID: [id number] Author: IHSAN FRAGOSO MD Service: ? Author Type: Anesthesiologist Type: Anesthesia Procedure Notes Filed: 07/29/2024 11:39 Note Text: ANESTHESIOLOGY PROCEDURE NOTE Airway General Information Procedure Start Time/Medication Administration: 07/29/2024 11:10 AM Procedure End Time: 07/29/2024 11:38 AM Patient location during procedure: OR Timeout Performed Pre-procedure: timeout performed Consent Obtained: Yes Patient identity confirmed: arm band and patient Staffing Anesthesiologist: Ihsan Fragoso MD OIL PAINTER: Shabana Sharp APRN.OIL PAINTER Performed by: OIL PAINTER Indications and Patient Condition Indications for airway [...] July 29, 2024 TIME: 11:38 AM CSN: [id number]11-15-2024 Instructions* Patient Instructions* Jenise Fam APRN.[facility] - 07/25/2024 10:52 AM EST Images from the original note were not included. [facility] Pre-Anesthesia Consultation Clinic PATIENT PREOPERATIVE INSTRUCTIONS Dr. Harris has scheduled you for your procedure at this surgery center: [facility] [place] Scheduling Office: [phone] --[address] [place] [address]. Please read below carefully for your personalized instructions. Arrival Time for Surgery: - To obtain your arrival time for surgery, call your physician's office the day before your surgery. - If your surgery is scheduled for Sunday, call the Sunday before. Your surgeon s batter out will tell you what time to call the office. - If you have not reached the departmental batter out by 5 P.M., call [phone] after 5 P.M. the day before your [...] Procedures: - YOU MUST HAVE A RESPONSIBLE RECRUITING ADMINISTRATOR TAKE YOU HOME. A THROUGH FREIGHT ENGINEER OR COMPLIANCE OFFICER CANNOT BE MADE A RESPONSIBLE RECRUITING ADMINISTRATOR. - We recommend that a responsible person [...] Advance Directive, please fax a copy to [phone] or email to for it to be [...] day. Jenise Fam APRN.CNP documented in [facility] History and physical note * Jenise Fam [...] fevers. Neurological: Positive for: headaches. Negative for: LAW ENFORCEMENT INSTRUCTOR tumor, dementia, impaired sensorium, peripheral neuropathy, seizures, [...] congenital heart defect, DVT/PE, hyperlipidemia, hypertension, recent NM, murmur/valvular heart disease, PTCA, PVD, open heart surgery and valve surgery. GI: Positive for: abdominal pain (intermittent d/t mesh per pt) Negative for: GERD, GI bleed <30 days, hepatitis, liver disease, nausea, vomiting and ETOH >2drinks/day. : Denies kidney disease Negative for: on dialysis, dysuria, frequent urination, hematuria, renal failure and urinary tract infection. 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 Negative for abnormal vaginal bleeding, [...] contrast (will be provided with radiology test) [facility] Brain Inject, intravenously, once for 1 dose. [...] or any previous visit (from the past 74528 hour(s)). Instructions Given to Patient: Instructions located in the after visit summary. Patient given verbal and written preop instructions and voices comprehension and compliance. SIGNATURE: Jenise Fam APRN.CNP PATIENT NAME: Oamr Gomez DATE: July 25, 2024 TIME: 10:47 AM PAGER/CONTACT #: [facility]11-15-2024 History and physical note* Jenise Fam APRN.CNP - 07/25/2024 10:47 AM [...] fevers. Neurological: Positive for: headaches. Negative for: LAW ENFORCEMENT INSTRUCTOR tumor, dementia, impaired sensorium, peripheral neuropathy, seizures, [...] congenital heart defect, DVT/PE, hyperlipidemia, hypertension, recent NM, murmur/valvular heart disease, PTCA, PVD, open heart surgery and valve surgery. GI: Positive for: abdominal pain (intermittent d/t mesh per pt) Negative for: GERD, GI bleed <30 days, hepatitis, liver disease, nausea, vomiting and ETOH >2drinks/day. : Denies kidney disease Negative for: on dialysis, dysuria, frequent urination, hematuria, renal failure and urinary tract infection. 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 Negative for abnormal vaginal bleeding, [...] contrast (will be provided with radiology test) [facility] Brain Inject, intravenously, once for 1 dose. [...] or any previous visit (from the past 57904 hour(s)). Instructions Given to Patient: Instructions located in the after visit summary. Patient given verbal and written preop instructions and voices comprehension and compliance. SIGNATURE: Jenise Fam APRN.CNP PATIENT NAME: Omar Gomez DATE: July 25, 2024 TIME: 10:47 AM PAGER/CONTACT #: documented in this encounterUniversity [facility] Hospital Discharge instructions Patient Education 07/24/2024 17:53:10 [...] part of the head that needs treatment. 3425-0638 [employer]. [address] [place] [address]. All rights reserved. This information is not intended as a substitute for professional medical care. Always follow yourhealthcare professional's instructions. Follow Up Care 07/24/2024 15:54:44 With:Follow up with primary care provider Address:Unknown When:2-4 days [facility] 11-14-2024 Note Discharge Instructions Thank you for allowing [facility] to assist you with your healthcare needs. [...] part of the head that needs treatment. [phone] [employer]. [address] [place] [address], [place] [address]. All rights reserved. This information is not intended as a substitute for professional medical care. Always follow yourhealthcare professional's instructions. Additional Information VACCINATE! IT SAVES LIVES! Members of the community who have not yet received the COVID-19 vaccine and would like to receive it can visit one of [facility] vaccine clinics. There are many vaccine clinic locations within the [facility]. For locations and available times, please visit www.gettheshot.coronavirus.[place].gov/. It is important to note that some COVID mobile vaccine clinics are held outdoors and may be canceled in rainy or stormy conditions. To learn more about pediatric vaccinations (ages 5-11), we invite you to visit the [employer] webpage. https://www.[employer]s.org/pages/6254-Eznxc-Upktpiefnpi-Khfighqvtg-Xxlhs-Qvk stions.htmlTo learn more about the COVID-19 vaccine, we invite you to visit the CDC website for a list of frequently asked questions. https://www.cdc.gov/coronavirus/2019-ncov/vaccines/faq.html [facility] Patient Portal Access Instructions: Stay connected with your healthcare team and access your personal medical information anytime with the [employer] Patient Portal. If you would like a full copy of your medical records please contact the [facility] Medical Records Department Sunday through Sunday between 8a.m. and 4:30p.m. Please follow the directions below to access the portal: 1.Access the email account you provided upon registration to the hospital.2.Look for an invitation email from [facility].3.Open the email and access the invitation link: Accept Invitation to [facility]4.Fill in the required carson to create your account. Sign into [email or web address] with your username and password that you [...] you will allow to register on the [employer] Patient Portal for access to your information. You can also access the [employer] Patient Portal on the [employer]. Simply click on Health Records under [employer] and then click on the [employer] logo. HOW TO SAFELY DISPOSE OF PRESCRIPTION [...] Call your local pharmacy or go to http://[employer].Easiaid/6X5Wt3s to find one close to you.3.Make use of household items: Use cat litter or old coffee grounds to dispose medications if other options arenot available. Mix your drugs with these household products, seal them in an airtight container andthrow it into the garbage. Call [facility]: [phone] to be sure your drugs can be [...] aware that I should contact my doctor. Patient/Attorney Lawyer Signature: Date/Time: Relationship to Patient: Witness Name/Signature: Date/Time: [facility]11-14-2024 Note ORIGINAL EXAMINATION: CT OF THE HEAD WITHOUT HPBTFRAC68/14/2024 5:[address] HEAD/BRAIN WITHOUT CONTRAST EXAM [...] Date: 07/24/2024 5:13:58 PM [facility]ing [facility] NoteSinus rhythm Multiform ventricular premature complexes Probable left atrial enlargement Artifact in lead(s) I,II,III,aVR,aVL,aVF and baseline wander in lead(s) V4 Electronic Signature: BROOK OLIVER MD 07/24/2024 16:49:21[facility] 11-14-2024 Telephone encounter Note* Telephone Encounter - Mary Choudhury RN - 07/24/2024 12:14 PM EST Spoke to patient states that she is so dizzy with nausea that she is unable to move. Advised that Dr Morton recommends her to go to ED for evaluation. Patient agreed [facility]11-14-2024 Miscellaneous Notes* Telephone Encounter - Mary Choudhury [...] S[birth year], 1985). Yes Number to return call [phone] Reason for Call: Symptoms Call: Symptoms: patient [...] pain: head [facility] Thank you [facility]. You will receive a return call within 48hours ( or 2 business days if close to the weekend). If you feel that this is an urgent issue and needs immediate attention, it is recommended that you contact your primary care provider office or proceed to your nearest Urgent Care Center of Emergency Room ED for evaluation/treatment. documented in this encounterUniversity Hospitals [facility]11-14-2024 Telephone encounter Note * Telephone Encounter - Karli Charles RN - 07/24/2024 9:58 AM EST Spoke with Omar and stated she should go to the ED to be evaluated for SEGOVIA and dizziness with visual problems. She was apprehensive but understood and said OK. [facility]11-14-2024 Telephone encounter Note* Telephone Encounter - Karli [...] getting worse the more she takes it [facility]11-14-2024 Telephone encounter Note* Telephone Encounter - Karli Charles RN - 07/24/2024 9:18 AM EST Returned call, pt did not answer, left Vm to call back. [facility]11-14-2024 Telephone encounter Note* Telephone Encounter - Andres DerekOmar - 07/24/2024 9:07 AM EST Images from the original note were not included. CV PHONE Name of caller : Omar Relationship to patient : Self If not self Will need patient permission to release results or disclose health information with called documented in fyi. Patient identified by Name and Date of . ( Omar Serrano, 1985). Yes Number to return call [phone] Reason for Call: Symptoms Call: Symptoms: patient called stating she was recently put on blood thinners and can't hardly walk, started 3 days ago and it's worse today, patient also states she has a headache Duration: >48 hours Progression: worse Pain level: 7 on a scale of 0-10. Type of pain (feels like): pressure Frequency: constant Location of pain: head Pharmacy: [facility] Thank you calling [facility] [place]. You will receive a return call within 48hours ( or 2 business days if close to the weekend). If you feel that this is an urgent issue and needs immediate attention, it is recommended that you contact your primary care provider office or proceed to your nearest Urgent Care Center of Emergency Room ED for evaluation/treatment. [facility] Work Phone: 1(253) 627-838011-05-2024 Hospital Discharge instructions Patient Education 07/15/2024 17:04:29 [...] cold can help reduce redness and swelling. 2393-7516 [employer]. [address] [place] [address], [place] [address]. All rights reserved. This information is not intended as a substitute for professional medical care. Always follow yourhealthcare professional's instructions. Follow Up Care 07/15/2024 16:00:45 With:Follow up with primary care provider Address: When:2-4 days only if needed [facility] 11-05-2024 Note Discharge Instructions Thank you for allowing [facility] to assist you with your healthcare needs. [...] cold can help reduce redness and swelling. 6552-7624 [employer]. [address] [place] [address]. All rights reserved. This information is not intended as a substitute for professional medical care. Always follow yourhealthcare professional's instructions. Additional Information VACCINATE! IT SAVES LIVES! Members of the community who have not yet received the COVID-19 vaccine and would like to receive it can visit one of [facility] vaccine clinics. There are many vaccine clinic locations within the [facility]. For locations and available times, please visit www.gettheshot.coronavirus.[place].gov/. It is important to note that some COVID mobile vaccine clinics are held outdoors and may be canceled in rainy or stormy conditions. To learn more about pediatric vaccinations (ages 5-11), we invite you to visit the [facility] webpage. https://www.[facility].org/pages/4238-Uzpme-Dbavutdkgsv-Zvxnljbkpk-Vansk-Xmr stions.htmlTo learn more about the COVID-19 vaccine, we invite you to visit the CDC website for a list of frequently asked questions. https://www.cdc.gov/coronavirus/2019-ncov/vaccines/faq.html [facility] Access Instructions: Stay connected with your healthcare team and access your personal medical information anytime with the [facility] [employer] Patient Portal. If you would like a full copy of your medical records please contact the [facility] Medical Records Department Sunday through Sunday between 8a.m. and 4:30p.m. Please follow the directions below to access the portal: 1.Access the email account you provided upon registration to the [facility].2.Look for an invitation email from [facility].3.Open the email and access the invitation link: Accept Invitation to [employer]4.Fill in the required carson to create your account. Sign into [email or web address] with your username and password that you [...] you will allow to register on the [employer] Patient Portal for access to your information. You can also access the [employer] Patient Portal on the [employer]. Simply click on Health Records under [employer] and then click on the [employer] logo. HOW TO SAFELY DISPOSE OF PRESCRIPTION [...] Call your local pharmacy or go to http://[employer].Easiaid/0W9Qg6l to find one close to you.3.Make use of household items: Use cat litter or old coffee grounds to dispose medications if other options arenot available. Mix your drugs with these household products, seal them in an airtight container andthrow it into the garbage. Call [facility]: [phone] to be sure your drugs can be [...] aware that I should contact my doctor. Patient/Attorney Lawyer Signature: Date/Time: Relationship to Patient: Witness Name/Signature: Date/Time: [facility]11-05-2024 Telephone encounter Note* Telephone Encounter - Jonathan Aranda RN - 07/15/2024 9:14 AM EST Called and spoke with patient via phone. Notified her that Dr. Lopez was urgently called to the OR this morning and her appointment would need to be rescheduled. Pt accepted new virtual visit date of 07/23/24 at 10:45am. [facility]11-05-2024 Miscellaneous Notes* Telephone Encounter - Jonathan Aranda RN - 07/15/2024 9:14 AM EST Called and spoke with patient via phone. Notified her that Dr. Lopez was urgently called to the OR this morning and her appointment would need to be rescheduled. Pt accepted new virtual visit date of 07/23/24 at 10:45am. documented in this encounterUniversity Hospitals [facility] Center10-23-2024 NoteDate of Procedure 07/02/2024. Blow Pit Operator Information Corporate Human Resources Manager: JV. Start time: 12:23 PM. Stop time: 12:33 PM. Allergies to adhesive bandages. Reliability Right Eye Good. Left Eye Good. Interpretation Right Eye Non-specific defect. Left Eye Enlarged Blind Spot. Interval Change Right Eye Stable. Left Eye Worse. Notes Residual blind spot enlargement left [id number] NoteDate of Procedure 07/02/2024. Blow Pit Operator Information Corporate Human Resources Manager: MAICOL. Start time: 12:45 PM. NFL Interpretation Right Eye RNFL Thickening. Left Eye RNFL Thickening. Interval Change Right Eye Better. Left Eye Better. Notes Significantly decreased peripapillary retinal nerve fiber layer thickening with prior [id number] NoteHNO ID: [id number] Author: MIKAEL COLÓN MD Service: ? Author [...] ASSESSMENT/PLAN: (G93.2) IIH (idi (more content not included)...[facility] 07-02-2024 History of Present illness Narrative* [...] BMP with results to be communicated via [employer]. She noted having recurrent nephrolithiasis with ongoing [...] the day of service that includes both qsrs-sf-vubp and mae-azkg-kf-face time. This time was separate from any [...] amenable and voiced understanding. documented in this encounterUniversity Hospitals [facility]point [facility] Center10-04-2024 Hospital Discharge instructions Patient Education 06/12/2024 23:24:43 [...] or as directed by your healthcare provider 9176-8451 [employer]. [address] [place] [address]. All rights reserved. This information is not [...] foods again, start with small amounts of bygs-ab-wlzajw, low- fat foods. These include apple sauce, [...] increase stomach acid. Don't use aspirin or mhgy-gcm-jppuuzf pain and fever medicines, if possible. This includes nonsteroidal anti-inflammatory drugs (NSAIDs). Lose excess weight. Finish eating at least 2 hours before you go to bed or lie down. Raise the head of your bed. 7629-3146 [employer]. [address] [place] [address], [place] [address]. All rights reserved. This information is not intended as a substitute for professional medical care. Always follow yourhealthcare professional's instructions. Follow Up Care 06/12/2024 20:57:23 With:Rachael NAGEL Address: [address] [place], [place] [id number]- [phone] [employer] (1) When:3-5 days Comments:Schedule appointment for evaluation.Use Tylenol, Advil or Aleve for pain as needed.Use [place] as prescribed for severe pain as needed.Return to the ED if symptoms worsen. [facility] 10-03-2024 Note Discharge Instructions Thank you for allowing [facility] to assist you with your healthcare needs. The following is importantdischarge information regarding your hospital visit. Diagnosis from Today's Visit Abdominal pain What to Do Next Instructions from Your Care Team No qualifying data available. Post Acute Orders No qualifying data available. You Need to Schedule the Following Appointments Follow Up with Rachael NAGEL When:Within 3-5 days Where:[address] [place] [phone] [phone] [employer] (1) Additional Information: Schedule appointment for evaluation. Use Tylenol, Advil or Aleve for pain as needed. Use [place] as prescribed for severe pain as needed. Return to the ED if symptoms worsen. Allergies Tape Burn Medications Please ask your primary doctor or pharmacist before taking any other medication not listed, including over the counter drugs, herbal medications, vitamins and or supplements as they may interact withyour home medications. What How Much When Why Instructions Last Dose New acetaminophen-hydrocodone (Virginia 325- 5 mg oral tablet) 1 tab(s) [...] or as directed by your healthcare provider 1608-9078 [employer]. [address] [place] [address], [place] [address]. All rights reserved. This information is not [...] foods again, start with small amounts of uszc-qh-cwuhbc, low- fat foods. These include apple sauce, [...] increase stomach acid. Don't use aspirin or oivw-avg-ibvbqut pain and fever medicines, if possible. This includes nonsteroidal anti-inflammatory drugs (NSAIDs). Lose excess weight. Finish eating at least 2 hours before you go to bed or lie down. Raise the head of your bed. 2292-4416 [employer]. [address] [place] [address]. All rights reserved. This information is not intended as a substitute for professional medical care. Always follow yourhealthcare professional's instructions. Additional Information VACCINATE! IT SAVES LIVES! Members of the community who have not yet received the COVID-19 vaccine and would like to receive it can visit one of [facility] vaccine clinics. There are many vaccine clinic locations within the [facility]. For locations and available times, please visit www.gettheshot.coronavirus.[place].gov/. It is important to note that some COVID mobile vaccine clinics are held outdoors and may be canceled in rainy or stormy conditions. To learn more about pediatric vaccinations (ages 5-11), we invite you to visit the [facility] webpage. https://www.[facility].org/pages/0604-Jyigj-Tkwtfcrlajx-Jcqwikaanm-Qgolh-Svm stions.htmlTo learn more about the COVID-19 vaccine, we invite you to visit the CDC website for a list of frequently asked questions. https://www.cdc.gov/coronavirus/2019-ncov/vaccines/faq.html [facility] Patient Portal Access Instructions: Stay connected with your healthcare team and access your personal medical information anytime with the [employer] Patient Portal. If you would like a full copy of your medical records please contact the [facility] Medical Records Department Sunday through Sunday between 8a.m. and 4:30p.m. Please follow the directions below to access the portal: 1.Access the email account you provided upon registration to the [facility].2.Look for an invitation email from [facility].3.Open the email and access the invitation link: Accept Invitation to [facility]4.Fill in the required carson to create your account. Sign into [email or web address] with your username and password that you [...] you will allow to register on the [employer] Patient Portal for access to your information. You can also access the [employer] Patient Portal on the [employer]. Simply click on Health Records under [employer] and then click on the [employer] logo. HOW TO SAFELY DISPOSE OF PRESCRIPTION [...] Call your local pharmacy or go to http://[employer].Easiaid/9O0Uu9c to find one close to you.3.Make use of household items: Use cat litter or old coffee grounds to dispose medications if other options arenot available. Mix your drugs with these household products, seal them in an airtight container andthrow it into the garbage. Call [facility]: [phone] to be sure your drugs can be [...] aware that I should contact my doctor. Patient/Attorney Lawyer Signature: Date/Time: Relationship to Patient: Witness Name/Signature: Date/Time: [facility] [id number] Note ORIGINAL EXAMINATION: CT OF THE ABDOMEN AND PELVIS WITH XRPVDRGH67/3/2024 10:18 pm TECHNIQUE: CT of the abdomen [...] Sign Date: 06/12/2024 11:28:39 PM [facility]ing [facility] Note HNO ID: [id number] Author: MARY CHOUDHURY RN Service: ? Author Type: Registered Nurse Type: Progress Notes Filed: 06/12/2024 15:28 Note Text: Spoke to patient to arrange procedure at the end of virtual visit with Dr Morton. Patient agreed to procedure 07/29/[address] Morton. She will have PACC and lab work at [facility] prior. Confirmed pharmacy for Aspirin and Clopidogrel prescriptions. Reviewed pre and post procedure instructions, stated understanding. Will also send via My Chart.[facility]10[facility] History of Present illness Narrative* Mary Choudhury RN - 06/12/2024 3:24 PM EDT Spoke to patient to arrange procedure at the end of virtual visit with Dr Morton. Patient agreed to procedure 07/29/[address] Morton. She will have PACC and lab work at [facility] prior. Confirmed pharmacy for Aspirin and Clopidogrel prescriptions. Reviewed pre and post procedure instructions, stated understanding. Will also send via My Chart. documented in this encounterUniversity Hospitals [facility]point Medical Center10-03-2024 Surgery Surgical operation note* Brief Op Note - Clemente Coates MD - 06/12/2024 12:25 PM EDT BRIEF OPERATIVE / PROCEDURE NOTE LOG ID: [id number] SURGERY/PROCEDURE DATE: 06/12/2024 INCISION/PROCEDURE START TIME: 12:00 PM INCISION CLOSE/PROCEDURE END TIME: 12:17 PM SURGEON(S)/PROCEDURALIST(S) AND SHEET FED PRINTER(S): Surgeons and Role: * Clemente Coates MD [...] DATE: June 12, 2024 TIME: 12:25 PM [facility] Work Phone: 1(224) 525-984410-03-2024 Surgical operation note* Brief Op Note - Clemente Coates MD - 06/12/2024 12:25 PM EDT BRIEF OPERATIVE / PROCEDURE NOTE LOG ID: [id number] SURGERY/PROCEDURE DATE: 06/12/2024 INCISION/PROCEDURE START TIME: 12:00 PM INCISION CLOSE/PROCEDURE END TIME: 12:17 PM SURGEON(S)/PROCEDURALIST(S) AND SHEET FED PRINTER(S): Surgeons and Role: * Clemente Coates MD [...] 2024 TIME: 12:25 PM documented in this encounterUniversity Hospitals Tripoint Medical Center10-03-2024 Instructions* Patient Education - Bren Henry RN [...] Signed By: Bren Henry RN In Department: [facility] FB36 [facility]10-03-2024 Miscellaneous Notes* Patient Education - Bren Henry [...] Signed By: Bren Henry RN In Department: [facility] FB36 documented in this encounterUniversity Hospitals Tripoint Medical Center10-03-2024 NoteHNO ID: [id number] Author: CHULA MORTON MD Service: ? Author Type: Physician Type: Progress Notes Filed: 06/21/2024 12:13 Note Text: [facility] Virtual Visit Consultation is requested by: Mikael Colón [address] [facility] [address] I have communicated my name and active licensure. The patient's identity and physical location were verified at the time of this visit. Either the patient or their legal lead generation representative has been informed of the risks [...] months post if stent (more content not included)...[facility]10-03-2024 History of Present illness Narrative* Chula Morton MD - 06/12/2024 9:45 AM EDT [facility] Virtual Visit Consultation is requested by: Mikael Colón [address] [facility] [address] I have communicated my name and active licensure. The patient's identity and physical location wereverified at the time of this visit. Either the patient or their legal lead generation representative has been informed of the risks [...] Vascular Neurology Endovascular Surgical Neuroradiology Cerebrovascular Center [facility] Discussion, counseling, coordination of care > 50% of 60 minutes. Questions asked/ answered. Follow-up with results/ adherence to plan/ continued education. FOUZIA Colón [address] [facility] [address] To use this Smartlink, specify the provider ID whose address you want to display, e.g., .PROVADDR[1(where 1 is the provider ID). documented in this encounterUniversity Hospitals Tripoint Medical Center09-11-2024 Telephone encounter Note * Telephone Encounter - Leslie Asencio - 05/21/2024 3:03 PM EDT Patient verified by name and . Patient accepted next available vv with Dr. Lopez for 07/15/24. Confirmed with RYAN Wilson that the patient would not be able to be seen in 2-4wks. JAQUELINE Cueva [facility]09-11-2024 Miscellaneous Notes* Telephone Encounter - Leslie Asencio [...] Not needed prior) IIH documented in this encounterUniversity Hospitals Tripoint Medical Center09-11-2024 Telephone encounter Note * Telephone Encounter - Eulalia Justice PA-C - 05/21/2024 2:[address] Lopez (next available is fine) Dr. Lopez No imaging (LP is Not needed prior) IIH [facility] Work Phone: [phone] Telephone encounter Note* Telephone Encounter - Nancy Hernández - 05/21/2024 1:16 PM EDT Assessment & Plan Mikael Colón MD filed at 05/20/2024 8:49 AM Status: Signed ??This is a telemedicine visit that was performed using the [employer] virtual platform with the originating site at [...] visit. Either the patient or their legal lead generation representative has been informed of the risks [...] deficits. Mikael Colón MD 8:48 AM 05/20/2024 [facility]09-11-2024 Miscellaneous Notes* Telephone Encounter - Nancy Hernández - 05/21/2024 1:16 PM EDT Assessment & Plan Mikael Colón MD filed at 05/20/2024 8:49 AM Status: Signed ??This is a telemedicine visit that was performed using the [employer] virtual platform with the originating site at [...] visit. Either the patient or their legal lead generation representative has been informed of the risks [...] MD 8:48 AM 05/20/2024 documented in this encounterUniversity Hospitals Tripoint Medical Center09-11-2024 Telephone encounter Note * Telephone Encounter - Peyton Webb - 05/21/2024 10:48 AM EDT Imaging up to date in chart for the past year as all done at [facility]. [facility]09-11-2024 Miscellaneous Notes* Telephone Encounter - Peyton Webb - 05/21/2024 10:48 AM EDT Imaging up to date in chart for the past year as all done at [facility]. 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 [facility]09-10-2024 NoteHNO ID: [id number] Author: MIKAEL COLÓN MD Service: ? Author Type: Physician Type: Progress Notes Filed: 05/20/2024 08:49 Note Text: ??This is a telemedicine visit that was performed using the [employer] virtual platform with the originating site at [...] visit. Either the patient or their legal lead generation representative has been informed of the risks [...] she has had more (more content not included)...[facility]09-10-2024 History of Present illness Narrative* Mikael Colón MD - 05/20/2024 7:00 AM EDT ??This is a telemedicine visit that was performed using the AnchorFree virtual platform with the originating site at [...] visit. Either the patient or their legal lead generation representative has been informed of the risks [...] on the day of service that includes gxsq-vk-yupk time and non. The majority of thistime was spent counseling and coordinating care. I communicated with her primary care physician regarding the management of this patient. The assessment and plan were discussed extensively with the patient who was amenable and voiced understanding. documented in this encounterUniversity Hospitals Tripoint Medical Center09-05-2024 History of Present illness Narrative* Gene DennisonHAN - 05/15/2024 4:00 PM EDT Radiology Service [...] 15, 2024 TIME: 3:26 PM * Karli Mathews RT(R) - 05/15/2024 4:00 PM EDT Radiology [...] PATIENT PRESENTS WITH AN IMPLANTABLE OR ATTACHED FIRE TENDER: No RADIOLOGY DEPARTMENT: MR; Exam(s) Completed: Head: Sagittal Sinus MRV PERIPHERAL IV DATA: Site assessment: Clean,Dry and Intact, Site disposition Left IV in for RN to remove SIGNED BY: RT Efe(R) May 15, 2024 5:06 PM documented in this encounterUniversity Hospitals Tripoint Medical Center09-05-2024 NoteHNO ID: [id number] Author: GENE DENNISON RN Service: Nursing Author [...] Serrano DATE: May 15, 2024 TIME: 3:26 [facility]09-05-2024 NoteHNO ID: [id number] Author: KARLI MATHEWS RT(R) Service: Radiology Author [...] PATIENT PRESENTS WITH AN IMPLANTABLE OR ATTACHED FIRE TENDER: No RADIOLOGY DEPARTMENT: MR; Exam(s) Completed: Head: Sagittal Sinus MRV PERIPHERAL IV DATA: Site assessment: Clean,Dry and Intact, Site disposition Left IV in for RN to remove SIGNED BY: RT Efe(R) May 15, 2024 5:06 [facility]09-05-2024 History of Present illness Narrative* Asha Brian [...] 15, 2024 4:18 PM documented in this encounterUniversity Hospitals Tripoint Medical Center09-05-2024 NoteHNO ID: [id number] Author: ASHA BRIAN RN Service: ? Author [...] Asha Brian RN May 15, 2024 4:18 [facility]08-26-2024 Telephone encounter Note* Telephone Encounter - Will aVsquez RN - 05/05/2024 3:54 PM EDT Radiology Service Pre Anesthesia Telephone Call PATIENT NAME: Omar Serrano DATE OF CALL: May 05, 2024 TIME: 3:54 PM Discussed anxiolysis procedure with patient for upcoming MRI on 05/15. States she thought it was IV but understands that it would be determined and ordered by the Radiologist here that day. Discussed needing to have a regional dedicated truck driver present. No other questions or concerns at this time. SIGNED BY: Will Vasquez RN May 05, 2024 3:54 PM [facility]08-26-2024 Miscellaneous Notes* Telephone Encounter - Will Vasquez [...] that day. Discussed needing to have a regional dedicated truck driver present. No other questions or concerns at this time. SIGNED BY: Will Vasquez RN May 05, 2024 3:54 PM documented in this encounterUniversity Hospitals Tripoint Medical Center08-18-2024 NoteHNO ID: [id number] Author: ADWOA MOSLEY APRN.SODA FOUNTAIN MANAGER Service: ? Author Type: Nurse Practitioner Type: Progress Notes Filed: 04/27/2024 15:19 Note Text: Subjective HPI HPI Omar Serrano [...] REPORT Comment: 4 teeth pulled No date: [facility] DELIVERY SCHEDULING ORDER ALLERGIES Tape [Adhesive Tape [...] WRIST GENERAL 3V PA/LAT/OBL LEFT Adwoa Mosley APRN.[facility] History of Present illness Narrative* Adwoa Mosley APRN.[employer] FOUNTAIN MANAGER - 04/27/2024 3:13 PM EDT Images from [...] WRIST GENERAL 3V PA/LAT/OBL LEFT Adwoa Mosley APRN.[employer]A FOUNTAIN MANAGER documented in this encounterUniversity Hospitals Tripoint Medical Center08-08-2024 Nurse Note* Nora Gan MA - 04/17/2024 9:38 AM EDT Additional intake questions: Has the patient had fever, nausea, vomiting, diarrhea, constipation, fatigue for > 1 week? No Does the patient have a decreased appetite? No Does patient want to see a Business Intelligence Director? No (yes to any of above refer patient to schedulers for dietitian appointment) ) Does patient have any new or increased numbness or tingling of extremities? No Is patient interested in fertility information? No Does patient need any prescription refills? No Does patient have an advanced directive in place? No, Patient referred to [facility]08-08-2024 Nurse Note* Nora Gan MA - 04/17/2024 9:38 AM EDT Additional intake questions: Has the patient had fever, nausea, vomiting, diarrhea, constipation, fatigue for > 1 week? No Does the patient have a decreased appetite? No Does patient want to see a Business Intelligence Director? No (yes to any of above refer patient to schedulers for dietitian appointment) ) Does patient have any new or increased numbness or tingling of extremities? No Is patient interested in fertility information? No Does patient need any prescription refills? No Does patient have an advanced directive in place? No, Patient referred to [facility] documented in this encounterUniversity Hospitals Tripoint Medical Center08-08-2024 NoteHNO ID: [id number] Author: EULALIA JUSTICE PA-C Service: ? Author Type: Physician Elementary Math Tutor Type: Progress Notes Filed: 04/17/2024 10:28 Note Text: This note was created using Nirvahariter. Subjective Omar Serrano is a 38 year [...] 1000mg bid. She was seen by our [facility] who noted b/l disc edema, [...] which included preparing to see the patient, gdds-xo-sdro patient care, completing clinical documentation, obtaining and/or reviewing separately obtained history, performing a medically appropriate examination, counseling and educating the patient/family/caregiver, ordering medications, tests, or procedures, communicating with other HCPs (not separately reported), independently interpreting results (not separately reported), communicating results to the patient/family/caregiver, and care coordination (not separately reported). [facility]08-08-2024 History of Present illness Narrative* Eulalia Justice PA-C - 04/17/2024 9:29 AM EDT This note was created using Nirvahariter. Subjective Omar Serrano is a 38 year [...] 1000mg bid. She was seen by our [facility] who noted b/l disc edema, [...] which included preparing to see the patient, qlsx-fl-sopr patient care, completing clinical documentation, obtaining and/or reviewing separately obtained history, performing a medically appropriate examination, counseling and educating the pat ient/family/caregiver, ordering medications, tests, or procedures, communicating with other HCPs (not separately reported), independently interpreting results (not separately reported), communicatingresults to the patient/family/caregiver, and care coordination (not separately reported). documented in this encounterUniversity Hospitals Tripoint Medical Center07-17-2024 NoteDate of Procedure 03/26/2024. Blow Pit Operator Information Corporate Human Resources Manager: Maria Victoria Isaac Start time: 9:18 AM. Stop time: 9:27 AM. Interpretation Right Eye Disc edema. Left Eye Disc edema. Interval Change Right Eye Better. Left Eye Better.[id number] NoteDate of Procedure 03/26/2024. Blow Pit Operator Information Corporate Human Resources Manager: SAMUEL. Start time: 8:53 AM. Stop time: 9:04 AM. I did ask if patient is allergic to adhesive or Bandages. Patient Said:NO . Reliability Right Eye Good. Left Eye Good. Interpretation Right Eye Non-specific defect. Left Eye Non-specific defect. Interval Change Right Eye Better. Left Eye Better. Notes Nonspecific areas of decreased sensitivity both [id number] NoteHNO ID: [id number] Author: MIKAEL COLÓN MD Service: ? Author [...] the day of service that includes both tzub-td-zxzo and nsz-tvgv-ue-face time. This time was separate from any [...] the patient/family, 15 mi (more content not included)...[facility] 03-26-2024 History of Present illness Narrative* [...] the day of service that includes both xfln-vv-qkvz and yfx-txbd-yk-face time. This time was separate from any [...] amenable and voiced understanding. documented in this encounterUniversity Hospitals Tripoint Medical Center07-16-2024 NoteHNO ID: [id number] Author: ADWOA MOSLEY APRN.[facility] Service: ? Author Type: Nurse Practitioner Type: [...] OFLOXACIN 0.3 % EAR DROPS Adwoa Mosley APRN.[place]07-16-2024 History of Present illness Narrative* Adwoa Mosley APRN.KAYY - 03/25/2024 3:01 PM EDT Subjective HPI [...] OFLOXACIN 0.3 % EAR DROPS Adwoa Mosley APRN.SODA FOUNTAIN MANAGER documented in this encounterUniversity Hospitals Tripoint Medical Center07-01-2024 NoteDate of Procedure 03/10/2024. Disc Right Eye Edema. Left Eye Edema. Macula Right Eye Normal. Left Eye Normal. Periphery Right Eye Normal. Left Eye Normal.[id number] NoteDate of Procedure 03/10/2024. Blow Pit Operator Information Corporate Human Resources Manager: nishant. Start time: 10:29 AM. Quality Right Eye Good. Left Eye Good. NFL Interpretation Right Eye RNFL Thickening. Left Eye RNFL Thickening. Ganglion Cell Layer Thickness Right Eye Normal. Left Eye Diffuse loss. Interval Change Right Eye Worse. Left Eye Worse.[id number] NoteDate of Procedure 03/10/2024. Blow Pit Operator Information Corporate Human Resources Manager: nishant. Start time: 10:29 AM. Reliability Right Eye Good. Left Eye Good. Interpretation Right Eye Non-specific defect. Left Eye Non-specific defect. Interval Change Right Eye Stable. Left Eye Stable.[id number] NoteHNO ID: [id number] Author: MIESHA RUBY MD Service: ? Author Type: Physician Type: Progress Notes Filed: 03/11/2024 09:08 Note Text: Last eval lystad 04/[address] Rc Novak ([facility]) ;last 02/13/2024 ED follow up from [...] and agree with all of its relevant components.[facility]07-01-2024 History of Present illness Narrative* Miesha Ruby MD - 03/10/2024 10:57 AM EDT Last eval lystad 04/[address] Rc Novak ([facility]) ;last 02/13/2024 ED follow up from [...] of its relevant components. documented in this encounterUniversity Hospitals Tripoint Medical Center06-12-2024 NoteHNO ID: [id number] Author: HATTIE FREDERICK DO Service: Neurology General Author Type: Resident Type: Plan of Care Filed: 02/20/2024 16:04 Note Text: [facility] 02/19[facility]06-12-2024 NoteHNO ID: [id number] Author: NIKITA GABRIEL RT(R) Service: Radiology Author [...] PATIENT PRESENTS WITH AN IMPLANTABLE OR ATTACHED FIRE TENDER: No RADIOLOGY DEPARTMENT: CT; Exam(s) Completed: Brain PERIPHERAL IV DATA: Not applicable SIGNED BY: RT Jo(R) February 20, 2024 1:16 [facility]06-11-2024 Telephone encounter Note* Telephone Encounter - Marianela Haji RN - 02/19/2024 3:39 PM EDT Patient calling regarding concern for worsening pain/pressure in eyes. Patient states she missed ophthalmology appointment today due to miscommunication. Conferenced to Beba in provider office at phone number ([phone]) for assistance. GO TO THE EMERGENCY ROOM OR CALL 911 IF: * You develop any new symptoms * Your condition worsens * You are concerned or anxious about your condition for any other reason. [facility]06-11-2024 Miscellaneous Notes* Telephone Encounter - Marianela Haji RN - 02/19/2024 3:39 PM EDT Patient calling regarding concern for worsening pain/pressure in eyes. Patient states she missed ophthalmology appointment today due to miscommunication. Conferenced to Beba in provider office at phone number ([phone]) for assistance. GO TO THE EMERGENCY ROOM OR CALL 911 IF: * You develop any new symptoms * Your condition worsens * You are concerned or anxious about your condition for any other reason. documented in this encounterUniversity Hospitals Tripoint Medical Center06-01-2024 Hospital Discharge instructions Patient Education 02/09/2024 10:50:45 [...] for 8 hours or increasing bladder pressure 6921-5827 The [employer]. [address] [place] [address], [place] [address]. All rights reserved. This information is not intended as a substitute for professional medical care. Always follow yourhealthcare professional's instructions. Follow Up Care 02/09/2024 09:38:24 With:Keep your appointment with urology as scheduled. Address:Unknown When:2-4 days Comments:Return to ED if symptoms worsen [facility] 06-01-2024 Note Discharge Instructions Thank you for allowing [facility] to assist you with your healthcare needs. [...] may report side effects to FDA at 3-828-MDJ-6503. What other drugs will affect naproxen? Ask [...] drugs may affect naproxen, including prescription and fuel-jiq-mqlchzl medicines, vitamins, and herbal products. Not all [...] to ensure that the information provided by [employer]. ('Multum') is accurate, up-to-date, and complete, but no guarantee is made to that effect. Drug information contained herein may be time sensitive. Sxbbm information has been compiled for use by healthcare practitioners and consumers in the [place] and therefore Sxbbm does not warrant that uses outside of the [place] are appropriate, unless specifically indicated otherwise. [employer] drug information does not endorse drugs, diagnose patients or recommend therapy. [employer] drug information isan informational resource designed to [...] effective or appropriate for any given patient. Sxbbm does not assume any responsibility for any aspect of healthcare administered with the aid of information Sxbbm provides. The information contained herein is not intended to cover all possible uses, directions, precautions, warnings, drug interactions, allergic reactions, or adverse effects. If you have questions about the drugs you are taking, check with your doctor, nurse or pharmacist. Copyright 4261-6502 [employer]. Version: 22.. Revision Date: 04/12/2023. Education Materials [...] for 8 hours or increasing bladder pressure 7820-6842 [employer]. [address] [place] [address], [place] [address]. All rights reserved. This information is not intended as a substitute for professional medical care. Always follow yourhealthcare professional's instructions. Additional Information VACCINATE! IT SAVES LIVES! Members of the community who have not yet received the COVID-19 vaccine and would like to receive it can visit one of [facility] vaccine clinics. There are many vaccine clinic locations within the [facility]. For locations and available times, please visit www.gettheshot.coronavirus.[place].gov/. It is important to note that some COVID mobile vaccine clinics are held outdoors and may be canceled in rainy or stormy conditions. To learn more about pediatric vaccinations (ages 5-11), we invite you to visit the [facility] webpage. https://www.[employer].org/pages/3897-Vpzvc-Qujjrvxpbjo-Dnsczxcqlt-Mzchq-Hyk stions.htmlTo learn more about the COVID-19 vaccine, we invite you to visit the CDC website for a list of frequently asked questions. https://www.cdc.gov/coronavirus/2019-ncov/vaccines/faq.html [facility] Patient Portal Access Instructions: Stay connected with your healthcare team and access your personal medical information anytime with the [facility] Patient Portal. If you would like a full copy of your medical records please contact the [facility] Medical Records Department Sunday through Sunday between 8a.m. and 4:30p.m. Please follow the directions below to access the portal: 1.Access the email account you provided upon registration to the hospital.2.Look for an invitation email from [facility].3.Open the email and access the invitation link: Accept Invitation to [facility]4.Fill in the required carson to create your account. Sign into [email or web address] with your username and password that you [...] you will allow to register on the [facility] Patient Portal for access to your information. You can also access the [employer] Patient Portal on the [employer] haydee. Simply click on Health Records under Above All Software and then click on the Laura logo. [...] Call your local pharmacy or go to http://[employer].Easiaid/2G6Bw6b to find one close to you.3.Make use of household items: Use cat litter or old coffee grounds to dispose medications if other options arenot available. Mix your drugs with these household products, seal them in an airtight container andthrow it into the garbage. Call [facility]: [phone] to be sure your drugs can be [...] aware that I should contact my doctor. Patient/Attorney Lawyer Signature: Date/Time: Relationship to Patient: Witness Name/Signature: Date/Time: [facility]06-01-2024 Note ORIGINAL EXAMINATION: CT OF THE ABDOMEN [...] Sign Date: 02/09/2024 10:33:24 AM Ordering Provider: [facility]05-21-2024 Hospital Discharge instructions Patient Education 01/28/2024 23:08:54 [...] for 8 hours and increasing bladder pressure 5660-6727 [employer]. [address] [place] [address], [place] [address]. All rights reserved. This information is not intended as a substitute for professional medical care. Always follow yourhealthcare professional's instructions. Follow Up Care 01/28/2024 19:41:00 With:LETICIA REN MD Address: [facility] [address] [facility] [address] [place] [address] [phone] When:2-4 days [facility] 05-20-2024 Emergency department Discharge summary Discharge Instructions Thank you for allowing [facility] to assist you with your healthcare needs. [...] LETICIA REN MD When: When:Within 2-4 days Where:[facility] [address] [address] [place] [address] [phone] Allergies Tape Burn Medications Please ask your [...] for 8 hours and increasing bladder pressure 7136-5325 [employer]. [address] [place] [address]. All rights reserved. This information is not intended as a substitute for professional medical care. Always follow yourhealthcare professional's instructions. Additional Information VACCINATE! IT SAVES LIVES! Members of the community who have not yet received the COVID-19 vaccine and would like to receive it can visit one of [facility] vaccine clinics. There are many vaccine clinic locations within the [facility]. For locations and available times, please visit www.gettheshot.coronavirus.[place].gov/. It is important to note that some COVID mobile vaccine clinics are held outdoors and may be canceled in rainy or stormy conditions. To learn more about pediatric vaccinations (ages 5-11), we invite you to visit the [facility] webpage. https://www.[facility].org/pages/6676-Iymtv-Tccflzofvum-Eyuihtzfwu-Ndtln-Pvi stions.htmlTo learn more about the COVID-19 vaccine, we invite you to visit the CDC website for a list of frequently asked questions. https://www.cdc.gov/coronavirus/2019-ncov/vaccines/faq.html [facility] Patient Portal Access Instructions: Stay connected with your healthcare team and access your personal medical information anytime with the [facility] Patient Portal. If you would like a full copy of your medical records please contact the [facility] Medical Records Department Sunday through Sunday between 8a.m. and 4:30p.m. Please follow the directions below to access the portal: 1.Access the email account you provided upon registration to the [facility].2.Look for an invitation email from [facility].3.Open the email and access the invitation link: Accept Invitation to [facility]4.Fill in the required carson to create your account. Sign into [email or web address] with your username and password that you [...] you will allow to register on the [facility] Patient Portal for access to your information. You can also access the [facility] Patient Portal on the OpenBuildings. Simply click on Health Records under Above All Software and then click on the [employer] logo. HOW TO SAFELY DISPOSE OF PRESCRIPTION [...] Call your local pharmacy or go to http://bit.Easiaid/7C8Ey3w to find one close to you.3.Make use of household items: Use cat litter or old coffee grounds to dispose medications if other options arenot available. Mix your drugs with these household products, seal them in an airtight container andthrow it into the garbage. Call [facility]: [phone] to be sure your drugs can be [...] aware that I should contact my doctor. Patient/Attorney Lawyer Signature: Date/Time: Relationship to Patient: Witness Name/Signature: Date/Time: [facility]05-20-2024 Note ORIGINAL EXAMINATION: CT OF THE ABDOMEN [...] Sign Date: 01/28/2024 10:50:14 PM Ordering Provider: [facility]04-30-2024 Instructions* Patient Instructions* Ayleen Pichardo - 01/08/2024 3:02 PM EDT Images from the original note were not included. Powerstep Original Full length. Can purchase at [employer] and boots,shoes and more here in [place], [employer] in [place] or [place]. Also can find in [place] in [facility]. Powersteps can also be purchased online, starting [...] on their feet, such as nurses, waiter/waitress cocktail lounge/waiters, andmail carriers, often experience plantar fasciitis. Athletes [...] choose the one that fits the best. Talpa with your athletic shoes to find a [...] and repeat the exercise. documented in this encounterUniversity Hospitals Tripoint Medical Center04-30-2024 History of Present illness Narrative* Ayleen Pichardo [...] injection. Ayleen Pichardo DPM Podiatry [address] [facility] [address] Dept: [phone] Dept * Thi Jones LPN - 01/08/2024 2:46 PM EDT AMB ROOMING INTAKE FLOWSHEET DATA Pain Pain Level: 5 Description: Throbbing Duration Amount of Time: 5 Duration Units: Weeks Frequency: Continuous Intervention/Comfort measure: Relaxation, Reposition, Medication Patient presents with: Left Ankle - New, Swelling, Pain Thi Jones LPN documented in this [facility]04-04-2024 History of Present illness Narrative* Dominga [...] PATIENT PRESENTS WITH AN IMPLANTABLE OR ATTACHED FIRE TENDER: No RADIOLOGY DEPARTMENT: General X-ray: Exam(s) Completed: Lower Extremity X- Ray(s): Ankle, Left and Foot, Left PERIPHERAL IV DATA: Not applicable SIGNED BY: RT Darinel(R) December 13, 2023 4:25 PM documented in this encounterUniversity Hospitals Tripoint Medical Center04-04-2024 History of Present illness Narrative* Danielle Hernandez APRN.SODA FOUNTAIN MANAGER - 12/13/2023 4:18 PM EDT This note was created using Nirvahariter. Subjective Omar Serrano is a 38 year [...] can barely walk She was seen at [facility]. I don't feel like they did a good xray and didn't really evaluate me States she was recommended to wear an air cast, but has not been wearing. Presents today requesting re examination and xrays The history is provided by the patient. No complaint investigator was used. 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 Judi Flores MD documented in this encounterUniversity [facility]als [facility]06-26-[facility]23 Hospital Discharge instructions Patient Education 03/05/2023 21:31:11 [...] or water and you are getting dehydrated 1016-4673 [employer]. [address] [place] [address]. All rights reserved. This information is not [...] manage your pain. These can include: Taking ruzz-ceb-dibxcoh pain medicine. Stronger pain medicine may also [...] Abnormal vaginal bleeding (especially bleeding after menopause) 1525-3210 [employer]. [address] [place] [address], [place] [address]. All rights reserved. This information is not intended as a substitute for professional medical care. Always follow yourhealthcare professional's instructions. Follow Up Care 03/05/2023 20:47:33 With:SEEMA BULLOCK DO Address: [address] [place] [phone] When:2-4 days [facility] 06-26-2023 Note Discharge Instructions Thank you for allowing [facility] to assist you with your healthcare needs. [...] BULLOCK DO When Within 2-4 days Where: [address] [place] [phone] Allergies Tape Medications Please ask your primary [...] or water and you are getting dehydrated 3131-5191 [employer]. [address] [place] [address]. All rights reserved. This information is not [...] manage your pain. These can include: Taking zwho-gcj-qxgbdde pain medicine. Stronger pain medicine may also [...] Abnormal vaginal bleeding (especially bleeding after menopause) 3077-4059 [employer]. [address] [place] [address]. All rights reserved. This information is not intended as a substitute for professional medical care. Always follow yourhealthcare professional's instructions. Additional Information VACCINATE! IT SAVES LIVES! Members of the community who have not yet received the COVID-19 vaccine and would like to receive it can visit one of [facility] vaccine clinics. There are many vaccine clinic locations within the [facility]. For locations and available times, please visit www.[email or web address].[place].gov/. It is important to note that some COVID mobile vaccine clinics are held outdoors and may be canceled in rainy or stormy conditions. To learn more about pediatric vaccinations (ages 5-11), we invite you to visit the [facility] webpage. https://www.[facility].org/pages/5480-Akjgp-Uiibaauijho-Zrxsyivnlu-Biuyd-Tbp stions.htmlTo learn more about the COVID-19 vaccine, we invite you to visit the CDC website for a list of frequently asked questions. https://www.cdc.gov/coronavirus/2019-ncov/vaccines/faq.html [employer] Patient Portal Access Instructions: Stay connected with your healthcare team and access your personal medical information anytime with the [employer] Patient Portal. If you would like a full copy of your medical records please contact the [facility] Medical Records Department Sunday through Sunday between 8a.m. and 4:30p.m. Please follow the directions below to access the portal: 1.Access the email account you provided upon registration to the [facility].2.Look for an invitation email from [facility].3.Open the email and access the invitation link: Accept Invitation to [facility] [employer] / HangPic4.Fill in the required carson to create your account. Sign into www.[email or web address] with your username and password that you [...] you will allow to register on the [facility] Patient Portal for access to your information. You can also access the [facility] Patient Portal on the OffSite VISION haydee. Simply click on Health Records under Above All Software and then click on the Laura logo. [...] Call your local pharmacy or go to http://bit.ly/3O8Qh2r to find one close to you.3.Make use of household items: Use cat litter or old coffee grounds to dispose medications if other options arenot available. Mix your drugs with these household products, seal them in an airtight container andthrow it into the garbage. Call [facility]: [phone] to be sure your drugs can be [...] aware that I should contact my doctor. Patient/Attorney Lawyer Signature: Date/Time: Relationship to Patient: Witness Name/Signature: Date/Time: [facility]06-26[facility] History of Present illness Narrative * Adwoa Mosley APRN.[employer] MA[employer]GER - 03/05/2023 7:50 PM EDT Patient triaged at [facility]. Here today with severe abdominal pain and left leg pain. Recent abdominal surgery. Was seen in ER earlier today, left leg ultrasound negative. Is in tears in pain. I discussed limitations of [facility] care. I advised to call surgeons office or return to Er. documented in this encounterUniversity Hospitals [facility]06-06-2023 Hospital Discharge instructions Patient Education 02/12/2023 23:08:29 [...] Follow these instructions at home: Medicines Take byxr-kxd-yxjopth and prescription medicines only as told by [...] and water are not available, use hand network announcer. ?Change your dressing as told by your [...] care provider may recommend that you: ?Take hiqs-eei-frcrtjf or prescription medicines. ?Eat foods that are [...] 06/17/2014 Document Revised: 08/09/2018 Document Reviewed: 10/16/2017 [employer] Patient Education 2020 [employer]. 02/12/2023 23:08:15 Diagnostic Laparoscopy, Care After Laparoscopy, [...] Follow these instructions at home: Medicines Take fake-pkv-zxbputo and prescription medicines only as told by [...] and water are not available, use hand network announcer. ?Change your dressing as told by your [...] to keep your urine pale yellow. ?Take wnhd-etl-wsoltwe or prescription medicines. ?Eat foods that are [...] 08/07/2016 Document Revised: 08/09/2018 Document Reviewed: 02/20/2018 [employer] Patient Education 2020 [employer]. 02/12/2023 23:08:15 Salpingectomy Salpingectomy Salpingectomy, also called [...] including vitamins, herbs, eye drops, creams, and fglc-eoq-lodiqoj medicines. Any problems you or family members [...] provider tells you to take them. ?Taking vaca-uep-mxacuft medicines, vitamins, herbs, and supplements. Staying hydrated [...] 01/13/2010 Document Revised: 08/18/2019 Document Reviewed: 08/18/2019 [employer] Patient Education 2020 [employer]. 02/12/2023 23:08:15 Ruptured Ectopic Ruptured Ectopic An [...] 08/24/2001 Document Revised: 08/09/2018 Document Reviewed: 11/14/2017 [employer] Patient Education 2020 [employer]. 02/12/2023 23:08:15 Ovarian Cyst Ovarian Cyst An [...] cyst. Follow these instructions at home: Take qkoj-qwg-xhuqqib and prescription medicines only as told by [...] 08/27/2006 Document Revised: 11/25/2018 Document Reviewed: 01/28/2017 [employer] Patient Education 2020 [employer]. Follow Up Care 02/12/2023 17:18:26 With:SEEMA BULLOCK DO Address: [address] [place] [id number] [phone] When: Unknown Comments:Follow up in at office in 2 weeks With:SEEMA BULLOCK Address: [address] [place] [phone] Business (1) When:Within 2 Week(s) [facility] 06-05-2023 Summary of episode note Discharge Instructions Thank you for allowing [facility] to assist you with your healthcare needs. [...] in at office in 2 weeks Where: [address] [place] [phone] Follow Up with SEEMA BULLOCK When In 2 weeks Where: [address] [place] [phone] Business (1) The Following Activity and Diet Have Been Ordered for You Discharge Activity - Ordered -- Sexual [place] Restricted, 2 weeks, 02/12/23 22:46:00 EDT Discharge [...] ovarian cystectomy Duration: 3 Days Pickup at [facility]/pharmacy #3321 Changed ibuprofen (ibuprofen 600 mg oral tablet) 1 tab(s) by mouth Every 6 hours as needed for as needed for pain [facility] Changed ondansetron (Zofran 4 mg oral tablet) 1 tab(s) by mouth Every 6 hours Duration: 5 Days [facility] Unchanged LORazepam (LORazepam 0.5 mg oral [...] by mouth Once a day [facility] [address] [place], [place] [phone] Please take this list to your next [...] Follow these instructions at home: Medicines Take tava-awg-bjtkshl and prescription medicines only as told by [...] and water are not available, use hand network announcer. ? Change your dressing as told by [...] provider may recommend that you: ? Take cagx-vuw-xzdtalm or prescription medicines. ? Eat foods that [...] 06/17/2014 Document Revised: 08/09/2018 Document Reviewed: 10/16/2017 [employer] Patient Education 2020 [employer]. Laparoscopy, Care After This sheet gives you [...] Follow these instructions at home: Medicines Take rfle-ypq-gdbqnto and prescription medicines only as told by [...] and water are not available, use hand network announcer. ? Change your dressing as told by [...] keep your urine pale yellow. ? Take kwla-phr-wydwani or prescription medicines. ? Eat foods that [...] 08/07/2016 Document Revised: 08/09/2018 Document Reviewed: 02/20/2018 [employer] Patient Education Team [employer]. Salpingectomy Salpingectomy, also called tubectomy, is the [...] including vitamins, herbs, eye drops, creams, and mbsz-rkt-ebrfrxp medicines. Any problems you or family members [...] tells you to take them. ? Taking clux-ykb-gnazuky medicines, vitamins, herbs, and supplements. Staying hydrated [...] 01/13/2010 Document Revised: 08/18/2019 Document Reviewed: 08/18/2019 [employer] Patient Education 2020 [employer]. Ruptured Ectopic An ectopic is when [...] 08/24/2001 Document Revised: 08/09/2018 Document Reviewed: 11/14/2017 [employer] Patient Education 2020 [employer]. Ovarian Cyst An ovarian cyst is a [...] cyst. Follow these instructions at home: Take tahu-lzt-jvcmlsc and prescription medicines only as told by [...] 08/27/2006 Document Revised: 11/25/2018 Document Reviewed: 01/28/2017 [employer] Patient Education 2020 [employer]. Additional Information VACCINATE! IT SAVES LIVES! Members of the community who have not yet received the COVID-19 vaccine and would like to receive it can visit one of [facility] vaccine clinics. There are many vaccine clinic locations within the [facility]. For locations and available times, please visit [email or web address]/. It is important to note that some COVID mobile vaccine clinics are held outdoors and may be canceled in rainy or stormy conditions. To learn more about pediatric vaccinations (ages 5-11), we invite you to visit the [facility] webpage. https://www.[facility].org/pages/2985-Xwhyp-Uryenqgcfkj-Ikximqwfqu-Lbwqr-Ceq stions.htmlTo learn more about the COVID-19 vaccine, we invite you to visit the CDC website for a list of frequently asked questions.https://www.cdc.gov/coronavirus/2019-ncov/vaccines/faq.html [employer] Patient Portal Access Instructions: Stay connected with your healthcare team and access your personal medical information anytime with the [employer] Patient Portal. Please follow the directions below to create your [employer] account: 1.Access the email account you provided upon registration to the hospital/physician office.2.Look for an invitation email from [facility].3.Open the email and access the invitation link: AcceptInvitation to [employer].4.Fill in the required carson to create your account. To access your account, visit mSchool/Sec[employer] Islands Technologieshart. Click the blue button labeled Access Patient [...] who you will allowto register on the [facility] [employer] Patient Portal for access to your information. You can also access the [facility] ICONIX BRAND GROUPChart Patient Portal on the [facility] Anywhere haydee. Simply click on Patient Portal and then log into your account. If you would like to receive a full copy of your medical records, please contact the [facility] Medical Records Department by calling [phone], Sunday through Sunday between 8 a.m. and [...] Call your local pharmacy or go to http://Redstone Resources.Easiaid/3T7Rp7u to find one close to you.3.Make use of household items: Use cat litter or old coffee grounds to dispose medications if other options arenot available. Mix your drugs with these household products, seal them in an airtight container andthrow it into the garbage. Call [facility]: [phone] to be sure your drugs can be [...] aware that I should contact my doctor. Patient/Attorney Lawyer Signature: Date/Time: Relationship to Patient: Witness Name/Signature: Date/Time: [facility] Anesthesiology Consult note Patient: OMAR SERRANO Age: 37 years Sex: Female : 1985 Associated Diagnoses: None Author: MADHAV BROWN APRN-CATALINA Assessment Postanesthesia assessment Vitals: Reviewed Results: Vital [...] by MADHAV BROWN on 02/12/2023 10:53 PM [facility] Anesthesiology Consult note Patient: OMAR SERRANO Age: [...] Problem list: Medical Anxiety / SNOMED CT 75961132 / Confirmed Ectopic / SNOMED CT 96857756 / Confirmed Hypertension / SNOMED CT 28432084 / Confirmed Kidney stone / SNOMED CT [id number] / Confirmed Ovarian cyst / SNOMED CT [id number] / Confirmed Possible , not confirmed / SNOMED CT [id number] / Possible, Active Problems (6) Anxiety Ectopic Hypertension Kidney stone Ovarian cyst Possible , not confirmed Histories Past Medical History: Active Anxiety (72626639) Hypertension (30858129) Ovarian cyst ([id number]), cerebral pseudotumor, Family History: Patient was adopted. History is unknown. Procedure history: section (19881478). Cholecystectomy (47969092). Hernia (061319581). Social History Social & Psychosocial Habits Alcohol [...] 17:27) Resp Rate 18 br/min (FEB 12 17:) SBPH 148mmHg (FEB 12 17:) DBPC 104mmHg (FEB 12 17:) Measurements from flowsheet : Measurements 02/12/2023 17:27 EDT Height 167.6 cm Admission Weight 106.8 kg [place] Body Weight 59.26 kg Pain assessment: Pain [...] ED Patient History Form 02/12/2023 18:13 EDT [facility] Note (Modified) 02/12/2023 17:27 EDT Height 167.6 cm Admission Weight 106.8 kg [place] Body Weight 59.26 kg Temperature Oral 36.7 [...] Opening Response Eduin Spontaneously Best Motor Response Eduin Obeys simple commands Best Verbal Response Eduin Oriented [place] Coma Score 15 Violence Risk Confused No [...] No Weight Loss No Preferred Written Language Ivorian Preferred Spoken Language Ivorian Tracking Group ED AO Tracking Group Tracking [...] EDT CSummary CSUMMARY . Assessment and Plan [place] Society of Anesthesiologists (ASA) physical status classification: Class III, E. Anesthetic Preoperative Plan Premedication: intravenous. Anesthetic technique: General. Induction: intravenously. Maintenance airway: Oral endotracheal tube. Postoperative pain management: Per surgeon. Risks discussed: nausea, vomiting, headache, sore throat, dental injury, hypotension, allergic reaction, serious complications. Informed consent: signed by patient. Digitally Signed by MADHAV BROWN on 02/12/2023 08:42 PM [facility] Evaluation + Plan note Diagnostic Tests Pending * Basic Metabolic Panel 02/12/23 * Complete Blood Count 02/12/23 [facility] 05-31-2023 Hospital Discharge instructions Patient Education 02/07/2023 [...] or as directed by your healthcare provider 0540-4917 [employer]. [address] [place] [address]. All rights reserved. This information is not intended as a substitute for professional medical care. Always follow yourhealthcare professional's instructions. Follow Up Care 02/07/2023 16:56:38 With:SEEMA BULLOCK DO Address: [address] [place] [address] [address] [place] [address] [phone] When:1-2 days [facility] 05-31-2023 Note Discharge Instructions Thank you for allowing [facility] to assist you with your healthcare needs. [...] DO When Within 1-2 days Where: [address] [facility] [address] [place] [address] [phone] Allergies Tape Medications Please ask your primary [...] may report side effects to FDA at 2-689-KJV-4867. What other drugs will affect ondansetron? Ondansetron [...] interact with ondansetron. This includes prescription and cwix-pup-xmayxui medicines, vitamins, and herbal products. Give a [...] to ensure that the information provided by [employer]. ('[employer]') is accurate, up-to-date, and complete, but no guarantee is made to that effect. Drug information contained herein may be time sensitive. S[employer]m information has been compiled for use by healthcare practitioners and consumers in the [place] and therefore [employer] does not warrant that uses outside of the [place] are appropriate, unless specifically indicated otherwise. [employer] drug information does not endorse drugs, diagnose patients or recommend therapy. [employer] drug information isan informational resource designed to [...] effective or appropriate for any given patient. S[employer] does not assume any responsibility for any aspect of healthcare administered with the aid of information S[employer] provides. The information contained herein is not intended to cover all possible uses, directions, precautions, warnings, drug interactions, allergic reactions, or adverse effects. If you have questions about the drugs you are taking, check with your doctor, nurse or pharmacist. Copyright 9019-0288 [employer]. Version: 13.01. Revision Date: 06/30/2016. oxycodone (ox [...] The extended-release form of oxycodone is for sklswq-sqr-rzrhm treatment of pain and should not be [...] against the law. Stop taking all other ckbydz-llq-omabs opioid pain medicines when you start taking [...] may report side effects to FDA at 4-400-JOM-4622. What other drugs will affect oxycodone? You [...] drugs may affect oxycodone. This includes prescription ljczfyj-ntb-smqtnww medicines, vitamins, and herbal products. Not all [...] to ensure that the information provided by [employer]. ('[employer]') is accurate, up-to-date, and complete, but no guarantee is made to that effect. Drug information contained herein may be time sensitive. Sxbbm information has been compiled for use by healthcare practitioners and consumers in the [place] and therefore Sxbbm does not warrant that uses outside of the [place] are appropriate, unless specifically indicated otherwise. S[employer]bbm's drug information does not endorse drugs, diagnose patients or recommend therapy. [employer] drug information isan informational resource designed to [...] effective or appropriate for any given patient. S[employer] does not assume any responsibility for any aspect of healthcare administered with the aid of information S[employer]m provides. The information contained herein is not intended to cover all possible uses, directions, precautions, warnings, drug interactions, allergic reactions, or adverse effects. If you have questions about the drugs you are taking, check with your doctor, nurse or pharmacist. Copyright 6563-0418 [employer] erento. Version: 14.02. Revision Date: 10/07/2020. Education Materials [...] or as directed by your healthcare provider 4480-9890 [employer]. [address] [place] [address], [place] [address]. All rights reserved. This information is not intended as a substitute for professional medical care. Always follow yourhealthcare professional's instructions. Additional Information VACCINATE! IT SAVES LIVES! Members of the community who have not yet received the COVID-19 vaccine and would like to receive it can visit one of [facility] vaccine clinics. There are many vaccine clinic locations within the [facility]. For locations and available times, please visit www.gettheshot.coronavirus.[place].gov/. It is important to note that some COVID mobile vaccine clinics are held outdoors and may be canceled in rainy or stormy conditions. To learn more about pediatric vaccinations (ages 5-11), we invite you to visit the [facility] webpage. https://www.[facility].org/pages/2690-Azkds-Skdlcjlmstz-Zmdycfzxzy-Psrpl-Ujj stions.htmlTo learn more about the COVID-19 vaccine, we invite you to visit the CDC website for a list of frequently asked questions. https://www.cdc.gov/coronavirus/2019-ncov/vaccines/faq.html [facility] [employer] Patient Portal Access Instructions: Stay connected with your healthcare team and access your personal medical information anytime with the [facility] Patient Portal. If you would like a full copy of your medical records please contact the [facility] Medical Records Department Sunday through Sunday between 8a.m. and 4:30p.m. Please follow the directions below to access the portal: 1.Access the email account you provided upon registration to the [facility].2.Look for an invitation email from [facility].3.Open the email and access the invitation link: Accept Invitation to [facility] [employer] / HangPic4.Fill in the required carson to create your account. Sign into [email or web address] with your username and password that you [...] you will allow to register on the [facility] Patient Portal for access to your information. You can also access the [facility] Patient Portal on the OffSite VISION haydee. Simply click on Health Records under Anti-Microbial SolutionsData and then click on the Laura logo. [...] Call your local pharmacy or go to http://bit.Easiaid/7U6Gr2p to find one close to you.3.Make use of household items: Use cat litter or old coffee grounds to dispose medications if other options arenot available. Mix your drugs with these household products, seal them in an airtight container andthrow it into the garbage. Call [facility]: [phone] to be sure your drugs can be [...] aware that I should contact my doctor. Patient/Attorney Lawyer Signature: Date/Time: Relationship to Patient: Witness Name/Signature: Date/Time: [facility]04[facility] History of Present illness Narrative * Cresencio Conrad PA-C - 12/13/2022 3:26 PM EDT Patient presents to [facility] triage with a chief complaint of [...] was called and she was transferred to [facility]. BP 150/88 Pulse 120 Temp (!) 38.6 C (101.4 F) Resp 19 LMP 02/26/2017 SpO2 98% documented in this encounterUniversity Hospitals Tripoint Medical CenterEvaluation + Plan note No data available for this section [facility] Evaluation + Plan note Future Appointments Appointment Date:03/12/2023 10:00:00 AM Scheduled Provider:CALISTA BAUM MD Location:[employer] LEAD[facility] ONC Appointment Type:SO TITLE I ASSISTANT [facility] Evaluation + Plan note Future Appointments Appointment Date:05/23/2023 03:00:00 PM Scheduled Provider:CALISTA BAUM MD Location:[employer] ONC Appointment Type:Telephone [facility] Evaluation + Plan note Future Appointments Appointment Date:05/29/2023 01:00:00 PM Scheduled Provider: Location:RAD Appointment Type:US Pelvis Non-OB W/Transvaginal Appointment Date:05/31/2023 10:50:00 AM Scheduled Provider:CALISTA BAUM MD Location:[employer] [facility]C Appointment Type:SO OV Follow Up Future Scheduled Tests Radiology* US Pelvis Non-OB W/Transvaginal 05/29/23 [facility] Evaluation + Plan note Future Appointments Appointment Date:05/31/2023 10:50:00 AM Scheduled Provider:CALISTA BAUM MD Location:[employer]C Appointment Type:SO OV Follow Up [facility] Evaluation + Plan note Future Appointments Appointment Date:09/22/2024 10:00:00 AM Scheduled Provider: Location:RAD Appointment Type:US Pelvis Non-OB Complete Diagnostic Tests Pending * Urine Culture 09/19/24 Future Scheduled Tests Radiology* US Pelvis Non-OB Complete 09/22/24 * US Pelvis Non-OB W/Transvaginal 09/01/24 [facility] Evaluation note* Diagnosis Near syncope- Primary Syncope and collapse Fever, unspecified fever cause documented in this [facility] Diagnosis Severe pain- Primary [facility] Diagnosis IIH (idiopathic intracranial hypertension)- Primary Benign intracranial hypertension Papilledema associated with increased intracranial pressure Migraine with aura and without status migrainosus, not intractable Migraine with aura, without mention of intractable migraine without mention of status migrainosus documented [facility] Diagnosis Acute left ankle pain- Primary Foot pain, left Pain in limb Fall, initial encounter documented [facility] this [facility] Diagnosis Sprain of left ankle, unspecified ligament, initial encounter- Primary Acute left ankle pain Foot pain, left Pain in limb Plantar fasciitis of left foot Plantar fascial fibromatosis documented in this [facility]* Diagnosis Idiopathic intracranial hypertension- Primary Benign intracranial hypertension Iris transillumination of left eye documented [facility] this [facility]* Diagnosis Acute otitis externa of left ear, unspecified type- Primary Otorrhea of left ear Otorrhea, unspecified IIH (idiopathic intracranial hypertension)- Primary Benign intracranial hypertension Other localized visual field defect, bilateral documented [facility] this [facility]* Diagnosis IIH (idiopathic intracranial hypertension)- Primary Benign intracranial hypertension Other localized visual field defect, bilateral Pulsatile tinnitus Unspecified tinnitus History of metabolic acidosis Personal history of other endocrine, metabolic, and immunity disorders Rhinorrhea Other diseases of nasal cavity and sinuses [facility] Diagnosis IIH (idiopathic intracranial hypertension)- Primary Benign intracranial hypertension [facility] Diagnosis Hypertension- Primary Unspecified essential [...] initial encounter- Primary [facility] Diagnosis Hypertension- Primary Unspecified essential hypertension [...] tinnitus Unspecified tinnitus [facility] Diagnosis Hypertension- Primary Unspecified essential [...] tinnitus Unspecified tinnitus [facility] Diagnosis Hypertension- Primary Unspecified essential [...] Fall, initial encounter [facility] Diagnosis Hypertension- Primary Unspecified essential [...] increased intracranial pressure [facility] Diagnosis Hypertension- Primary Unspecified essential [...] Benign intracranial hypertension [facility] Diagnosis Hypertension- Primary Unspecified essential hypertension [...] increased intracranial pressure documented [facility] this [facility] Diagnosis Hypertension- Primary Unspecified essential hypertension [...] increased intracranial pressure [facility] Diagnosis Hypertension- Primary Unspecified essential hypertension [...] Harris, intermittent episodes. documented [facility] this [facility] Diagnosis Hypertension- Primary Unspecified essential hypertension [...] increased intracranial pressure documented [facility] this [facility] Diagnosis Hypertension- Primary Unspecified essential hypertension [...] Primary [facility] Diagnosis Hypertension- Primary Unspecified essential hypertension [...] increased intracranial pressure documented in this encounter [facility] Diagnosis Hypertension- Primary Unspecified essential hypertension [...] gangrene [facility] Diagnosis Hypertension- Primary Unspecified essential hypertension [...] increased intracranial pressure documented in this encounter [facility] Diagnosis Hypertension- Primary Unspecified essential hypertension [...] intracranial venous sinus documented in this encounter [facility] Diagnosis Hypertension- Primary Unspecified essential hypertension [...] increased intracranial pressure documented in this encounter [facility] Diagnosis Hypertension- Primary Unspecified essential hypertension [...] increased intracranial pressure documented in this encounter [facility] Diagnosis Hypertension- Primary Unspecified essential hypertension [...] obstruction or gangrene documented [facility] this [facility] Diagnosis Hypertension- Primary Unspecified essential hypertension [...] Recurrent incisional hernia documented in this [facility] Diagnosis Hypertension- Primary Unspecified essential hypertension [...] Recurrent incisional hernia documented in this [facility] Diagnosis Hypertension- Primary Unspecified essential hypertension [...] Recurrent incisional hernia documented in this encounter [facility] Diagnosis Hypertension- Primary Unspecified essential hypertension [...] hernia [facility] Diagnosis Hypertension- Primary Unspecified essential hypertension [...] Follows with Cerebrovascular LV 01/2025 Sugey Allan TITLE I ASSISTANT ASA 81 sp TSJ stent, will complete [...] needs to complete documented [facility] this [facility] Diagnosis Hypertension- Primary Unspecified essential hypertension [...] major depressive disorder, unspecified depression episode severity Postoperative visit- Primary Other specified aftercare following surgery documented in this encounter [facility]* Diagnosis Hypertension- Primary Unspecified essential hypertension [...] major depressive disorder, unspecified depression episode severity Left wrist pain- Primary Pain in joint, forearm Left wrist pain Pain in joint, forearm documented in this encounter [facility]* Diagnosis Hypertension- Primary Unspecified essential hypertension [...] major depressive disorder, unspecified depression episode severity Left wrist pain Pain in joint, forearm documented [facility] this [facility] Diagnosis Hypertension- Primary Unspecified essential hypertension [...] major depressive disorder, unspecified depression episode severity Postoperative visit- Primary Other specified aftercare following surgery documented [facility] Discharge instructions No data available for this section [facility] Note* LEYLA Fernandez: PERFORM Event Display: [place] History and Physical Authored Date: [facility] Progress note No data available for this section [facility] Reason for referral (narrative)* Diagnostic Procedure Only (Urgent) - New Request Specialty Diagnoses / Procedures Referred By Contac t Referred To Contact XR IMAGING Diagnoses Injury of left wrist, initial encounter Procedures XR WRIST GENERAL 3V PA/LAT/OBL LEFT RADEX WRIST COMPLETE MINIMUM 3 VIEWS Adwoa Mosley APRN.[employer] [address] [place] [address] [place] [address] Referral ID Status Reason Start Date Expiration Date Visits Requested Visits Authorized [id number] New Request Auto-Generat ed Referral 04/27/2024 05/27/2025 1 1 [facility] for referral (narrative)* Diagnostic Procedure Only (Urgent) - Closed Specialty Diagnoses / Procedures Referred By Contac t Referred To Contact XR IMAGING Diagnoses Acute left ankle pain Foot pain, left Fall, initial encounter Procedures XR ANKLE GENERAL 3V AP/LAT/OBL LEFT RADEX ANKLE COMPLETE MINIMUM 3 VIEWS Danielle Hernandez APRN.[employer] [address] [place] [address] [place] [address] Referral ID Status Reason Start Date Expiration Date V isits Requested Visits Authorized [id number] Closed Auto-Generate d Referral 12/13/2023 01/11/2025 1 1 * Diagnostic Procedure Only (Urgent) - Closed Specialty Diagnoses / Procedures Referred By Contac t Referred To Contact XR IMAGING Diagnoses Acute left ankle pain Foot pain, left Fall, initial encounter Procedures XR FOOT GENERAL 3V AP/LAT/OBL LEFT RADEX FOOT COMPLETE MINIMUM 3 VIEWS Danielle Hernandez APRN.[employer] [address] [place] [address] [place] [address] Referral ID Status Reason Start Date Expiration Date V isits Requested Visits Authorized [id number] Closed Auto-Generate d Referral 12/13/2023 01/11/2025 1 1 [facility] for visit Narrative* Diagnostic Procedure Only (Urgent) - Closed Specialty Diagnoses / Procedures Referred By Contac t Referred To Contact XR IMAGING Diagnoses Acute left ankle pain Foot pain, left Fall, initial encounter Procedures XR FOOT GENERAL 3V AP/LAT/OBL LEFT RADEX FOOT COMPLETE MINIMUM 3 VIEWS Danielle Hernandez, PERINATAL SPECIALIST.[employer] [address] [place] [address] [place] [address] Referral ID Status Reason Start Date Expiration Date V isits Requested Visits Authorized [id number] Closed Auto-Generate d Referral 12/13/2023 01/11/2025 1 1 [facility] for visit Narrative* Consult, Test, Treat (Routine) - Closed Specialty Diagnoses / Procedures Referred By Contac t Referred To Contact Diagnoses Preoperative examination Recurrent incisional hernia Procedures REFER TO [facility] - PREOPERATIVE OPTIMIZATION OFFICE/OUTPATIENT [facility] 60 MINUTES Omar Ferreira PERINATAL SPECIALIST.[employer] [address] [address] Phone: tel: fax: Referral ID Status Reason Start Date Expiration Date V isits Requested Visits Authorized [id number] Closed PCP Requested Referral 11/13/2024 11/12/2025 1 1 [facility] for visit Narrative* Diagnostic Procedure Only (Urgent) - Closed Specialty Diagnoses / Procedures Referred By Contac t Referred To Contact XR IMAGING Diagnoses Left wrist pain Procedures XR WRIST GENERAL 3V PA/LAT/OBL LEFT RADEX WRIST COMPLETE MINIMUM 3 VIEWS Rylee Mcdonald PERINATAL SPECIALIST.[employer] [address] [place] [address] Phone: tel: fax: [place] [address] Referral ID Status Reason Start Date Expiration Date V isits Requested Visits Authorized [id number] Closed Auto-Generate d Referral 02/16/2025 03/18/2026 1 1 [facility] note* LEYLA Fernandez: PERFORM Event Display: Patient Summary Documents Authored Date: [id number] [facility] Laurarussel Membreno Summary Purpose Family History No Family [...] Found No data available for this section Advance Directives Documents on File Type Date Recorded Patient Attorney Lawyer Expl anation Advance Directives and Living Will 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 * Headache (Ivorian) * Epidural Blood Patch (Ivorian) documented in this encounter* Instructions* Altaf Baum MD - 05/25/2019 If unable to follow-up with Dr. Peralta for ophthalmology. To schedule your appointment, please call the following number: Ophthalmology [phone] Will need to follow-up with neurology as an outpatient Meet with social work at [facility] follow-up discuss HCAP Referral placed to [facility] [place] clinic per patient request and after [...] Urine 5.5 5.0 - 8.0 NA Specific Adger, Urine 1.027 1.005 - 1.030 NA Occult [...] eGFR >60.0 >60 mL/min EGFR IF NonAfrican Nicaraguan 59.0 >60 mL/min Calcium 8.8 8.4 - [...] # 3.5 1.0 - 4.3 10*3/uL Absolute [place] # 0.9 (H) 0.0 - 0.8 10*3/uL [...] -LP completed on 05/23/19-OP elevated at 30 -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 Right [...] HEENT: Normocephalic. Sclerae Clear. Fundus: No Papilledema, CONSULTING ANALYST O[facility] ENT exam normal, no neck [...] Studies: Gram Stain Result 05/23/2019 6:18 PM [facility] Cytocentrifugation performed. Rare polymorphonuclear cells/lpf. No organisms seen. 05/23/2019 6:48 PM - [facility] Incoming Lab Results From Soft/Medlab Component Value Ref Range & Units Status Collected Lab Appearance see below NA Final 05/23/2019 6:18 PM [facility] Clear and colorless Color, CSF see below NA Final 05/23/2019 6:18 PM [facility] Clear and colorless Nucleated Cells, CSF 0 0 - 5 cells/uL Final 05/23/2019 6:18 PM [facility] Red blood cells count, CSF 41 05/23/2019 6:53 PM - [facility], [facility] Incoming Lab Results From Soft/Medlab Component Value Ref Range & Units Status Collected Lab Protein, CSF 39.6 12.0 - 60.0 mg/dL Final 05/23/2019 6:18 PM [facility] 05/23/2019 7:37 PM - [facility], [facility] Incoming Lab Results From Soft/Medlab Component Value Ref Range & Units Status Collected Lab Glucose, CSF 73High 40 - 70 mg/dL Final 05/23/2019 6:18 PM [facility] Meningitis Encephalitis Panel 05/23/2019 5:28 PM [facility] NEGATIVE: No targets were detected by [...] XA Special Angiography Procedure Ordering Physician NEIL PORETR, SHAYY Zhang Accession Number [id number] Reason For Exam lumbar puncture with opening [...] NEGATIVE: No targets were detected by the [employer] Meningitis/Encephalitis PCR Panel. 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 05/22/2019: direct admit from [place] with changing Headaches. Intermittently with bilateral eye dimvision. [place] [place] [facility]. [facility] Adm: MRI normal. LP with elevated Opening pressure c/w IIH. S: agree with resident's HPI. Patient feels much better today. Had some SEGOVIA overnight but states that she feels much better today after the LP. She is hoping to go home. She lives in [place] and does not have a PCP as [...] team to d/w neurology re: decreasing diamox [id number] bid given prerenal XENIA. To follow up Outpatient - refer to bariatric surgery - patient quite interested. Pager: [phone] * Nirali Boone DTR - 05/24/2019 8:54 AM EDT Nutrition rescreen completed. Chart reviewed. Patient to be monitored and followed by the diet water and fire technician. * Dequan Salinas DO - 05/24/2019 [...] 05/23/20193 BUN 10 05/23/2019 0033 CREATININE 0.75 05/23/2019 0033 GLUCOSE 123 (H) 05/23/20193 CALCIUM 9.4 05/23/20193 PROT 7.9 05/22/20192015 LABALBU 4.2 05/22/20192015 BILITOT 0.7 05/22/2019 2016 ALKPHOS 103 05/22/20192015 AST 19 05/22/2019 2016 ALT 15 05/22/2019 2016 Component Value Date/Time WBC 13.1 (H) 05/23/201932 HGB 14.6 05/23/201932 HCT 42.6 05/23/201932 PLT 307 05/23/201932 GRANULOCYTES [...] with my noted corrections ifany * Serafin Logn, - 05/23/2019 10:57 AM EDT Med Team [...] Patient received morphine 4mg IV x1 at [place] ED. Depression -Patient had a difficult and [...] . obesity BMI 30-39.9 Disposition: admit to [facility] I have discussed the care of Omar [...] HEAD W & WO CONTRAST Sugey Allan, PERINATAL SPECIALIST.[employer] MANAGER [address] [address] Mr Imaging [facility] Referral ID Status Reason Start Date Expiration Date Visits Requested Visits Authorized [id number] New Request Auto-Generat ed Referral 01/08/2025 11/07/2025 1 1 Specialty Diagnoses / Procedures Referred By Contac t Referred To Contact Neurology Diagnoses Other complicated headache syndrome Procedures CONSULT TO NEUROLOGY OFFICE/OUTPATIENT [facility] 60 MINUTES Sugey Allan, PERINATAL SPECIALIST.[facility] [address] [place] [address] Referral ID Status Reason Start Date Expiration Date Visits Requested Visits Authorized [id number] Authorized PCP Requested Referral 10/08/2024 10/08/2025 1 1 Specialty Diagnoses / Procedures Referred By Contac t Referred To Contact General Surgery Diagnoses IIH (idiopathic intracranial hypertension) Episode of recurrent major depressive disorder, unspecified depression episode severity (HCC) Palpitations BMI 38.0-38.9,adult Central adiposity Avoidant-restrictive food intake disorder (ARFID) Disturbance in sleep behavior Umbilical hernia without obstruction or gangrene Procedures CONSULT TO GENERAL SURGERY OFFICE/OUTPATIENT [facility] [address] [place] [address] [place] [address] Referral ID Status Reason Start Date Expiration Date Visits Requested Visits Authorized [id number] Authorized PCP Requested Referral 09/26/2024 09/26/2025 1 [...] RATE&O2 [place] [address] [place] [address] [facility] [place] [address] [place] [address] Referral ID Status Reason Start Date Expiration Date Visits Requested Visits Authorized [id number] New Request Auto-Generat ed Referral 09/26/2024 09/26/2025 1 1 Specialty Diagnoses / Procedures Referred By Contac t Referred To Contact Urology Diagnoses Nephrolithiasis Procedures CONSULT TO UROLOGY OFFICE/OUTPATIENT [facility] 60 MINUTES Mikael Colón MD [address] [place] [address] Referral ID Status Reason Start Date Expiration Date Visits Requested Visits Authorized [id number] Authorized PCP Requested Referral 07/02/2025 1 1 Specialty Diagnoses / Procedures Referred By Contac t Referred To Contact Diagnoses IIH (idiopathic intracranial hypertension) Procedures ENDOCRINE MEDICAL WEIGHT MANAGEMENT OFFICE/OUTPATIENT [facility] 60 MINUTES Eulalia Justice PA-C [address] [place] [address] Referral ID Status Reason Start Date Expiration Date Visits Requested Visits Authorized [id number] Authorized PCP Requested Referral 04/17/2024 04/17/2025 1 1 Specialty Diagnoses / Procedures Referred By Contac t Referred To Contact MR IMAGING Diagnoses IIH (idiopathic intracranial hypertension) Pulsatile tinnitus Procedures MRV BRAIN WO/W IVCON MRV BRAIN WO/W IVCON MRA; HEAD W & WO CONTRAST Mikael Colón MD [address] [place] [id number] Mr Imaging [place] [address] Referral ID Status Reason Start Date Expiration Date Visits Requested Visits Authorized [id number] Pending Review Auto-Generat ed Referral 03/26/2024 04/25/2025 1 1 Specialty Diagnoses / Procedures Referred By Contac t Referred To Contact [facility] Diagnoses Sprain of left ankle, unspecified ligament, initial encounter Plantar fasciitis of left foot Procedures CONSULT TO PHYSICAL THERAPY PHYSICAL THERAPY EVALUATION HIGH COMPLEX 45 MINS Ayleen Pichardo [address] [place] [address] [facility] [place] [address] [place] [address] Referral ID Status Reason Start Date Expiration Date Visits Requested Visits Authorized [id number] Authorized Auto-Generat ed Referral 09/10/2023 09/09/2024 30 30 Specialty Diagnoses / Procedures Referred By Contac t Referred To Contact Orthopedics Diagnoses Acute left ankle pain Foot pain, left Fall, initial encounter Procedures CONSULT PANEL TO ORTHOPAEDICS OFFICE/OUTPATIENT NEW HIGH MDM 60 MINUTES Danielle Hernandez, PERINATAL SPECIALIST.[employer] MA[employer]GER [address] [place] [address] Referral ID Status Reason Start Date Expiration Date Visits Requested Visits Authorized [id number] Authorized PCP Requested Referral 12/13/2023 12/12/2024 1 1 Specialty Diagnoses / Procedures Referred By Contac t Referred To Contact XR IMAGING Diagnoses Acute left ankle pain Foot pain, left Fall, initial encounter Procedures XR ANKLE GENERAL 3V AP/LAT/OBL LEFT RADEX ANKLE COMPLETE MINIMUM 3 VIEWS Danielle Hernandez, PERINATAL SPECIALIST.[employer] MANAGER [address] [place] [address] [place] [address] Referral ID Status Reason Start Date Expiration Date V isits Requested Visits Authorized [id number] Closed Auto-Generate d Referral 12/13/2023 01/11/2025 1 1 Specialty Diagnoses / Procedures Referred By Contac t Referred To Contact XR IMAGING Diagnoses Acute left ankle pain Foot pain, left Fall, initial encounter Procedures XR FOOT GENERAL 3V AP/LAT/OBL LEFT RADEX FOOT COMPLETE MINIMUM 3 VIEWS Danielle Hernandez, PERINATAL SPECIALIST.[employer] MANAGER [address] [place] [address] [place] [address] Referral ID Status Reason Start Date Expiration Date V isits Requested Visits Authorized [id number] Closed Auto-Generate d Referral 12/13/2023 01/11/2025 1 1 Additional Source Comments INFORMATION SOURCE (unrecogn ized section and content) DATE CREATED AUTHOR 03/06/2018 [facility] DATE CREATED AUTHOR AUTHOR'S ORGANIZ ATION 07/07/2019 [facility] DATE CREATED AUTHOR AUTHOR'S ORGANIZ ATION 03/10/2024 [facility] ([place]) DATE CREATED AUTHOR AUTHOR'S ORGANIZ ATION 07/28/2024 [facility] DATE CREATED AUTHOR AUTHOR'S ORGANIZ ATION 01/01/2025 [facility] DATE CREATED AUTHOR AUTHOR'S ORGANIZ ATION 01/16/2025 [facility] DATE CREATED AUTHOR AUTHOR'S ORGANIZ ATION 02/16/2025 [facility] DATE CREATED AUTHOR AUTHOR'S ORGANIZ ATION 02/18/2025 [facility] Reason for Visit (unrecogniz ed section and content) Reason Comments Radiology MRI Specialty Diagnoses / Procedures Referred By Contac t Referred To Contact MR IMAGING Diagnoses IIH (idiopathic intracranial hypertension) Pulsatile tinnitus Procedures MRV BRAIN WO/W IVCON MRV BRAIN WO/W IVCON MRA; HEAD W & WO CONTRAST Mikael Colón MD [address] [place] [address] [place] [address] Referral ID Status Reason Start Date Expiration Date V isits Requested Visits Authorized [id number] Closed Auto-Generate d Referral 04/30/2024 05/30/2024 3 3 Reason Comments Headache recent discharge [facility], history of pseudo tumor cerebral, transfer from [place] Dizziness Reason Comments Reason Comments Idiopathic intracranial hypertension Reason Comments Trauma Left ankle,swelling and bruising on outside of ankle x 3 weeks Reason Comments New Swelling Pain Specialty Diagnoses / Procedures Referred By Contac t Referred To Contact Orthopedics Diagnoses Acute left ankle pain Foot pain, left Fall, initial encounter Procedures CONSULT PANEL TO ORTHOPAEDICS OFFICE/OUTPATIENT [facility] 60 MINUTES Danielle Hernandez, PERINATAL SPECIALIST.[employer]AIN MANAGER [address] [place] [address] Referral ID Status Reason Start Date Expiration Date V isits Requested Visits Authorized [id number] Closed PCP Requested Referral 12/13/2023 12/12/2024 1 [...] [facility] [address] [place] [address] Referral ID Status Reason Start Date Expiration Date Visits Re quested Visits Authorized [id number] 1 1 Reason Comments New Patient Reason [...] FOR PERIOPERATIVE MEDICINE - PREOPERATIVE OPTIMIZATION OFFICE/OUTPATIENT [facility] 60 MINUTES Meena Murray APRN.CNP [address] [place] [address] Referral ID Status Reason Start Date Expiration Date V isits Requested Visits Authorized [id number] Closed PCP Requested Referral 07/25/2024 06/12/2025 1 1 Reason Comments Opened In Error should be refill req uest Reason Onset Date Comments Refill Request 09/02/2024 Reason Comments Medical Weight Management Specialty Diagnoses / Procedures Referred By Contac t Referred To Contact Diagnoses IIH (idiopathic intracranial hypertension) Procedures ENDOCRINE MEDICAL WEIGHT MANAGEMENT OFFICE/OUTPATIENT [facility] 60 MINUTES Eulalia Justice PA-C [address] [place] [address] Referral ID Status Reason Start Date Expiration Date V isits Requested Visits Authorized [id number] Closed PCP Requested Referral 04/17/2024 04/17/2025 1 1 Reason Comments Refill Request Reason Comments medication refill Reason Comments [employer] - Other Medications Reason Comments IIH (idiopathic [...] gangrene Procedures CONSULT TO GENERAL SURGERY OFFICE/OUTPATIENT [facility] [address] [place] [address] [place] [address] Phone: tel: fax: Referral ID Status Reason Start Date Expiration Date V isits Requested Visits Authorized [id number] Closed PCP Requested Referral 09/26/2024 09/26/2025 1 1 Reason Comments 05.30.25 Cure Robotic Complex AWR 5 hours los 2 Specialty Diagnoses / Procedures Referred By Contac t Referred To Contact [facility] IM[facility]ING Diagnoses Intracranial vascular stenosis Procedures MRV BRAIN WO/W IVCON MRA; HEAD W & WO CONTRAST Sugey Allan, PERINATAL SPECIALIST.[employer]AIN MANAGER [address] [place] [id number] Phone: tel: fax: [facility] [place] [address] Referral ID Status Reason Start Date Expiration Date V isits Requested Visits Authorized [id number] Closed Auto-Generate d Referral 12/26/2024 01/25/2025 1 1 Reason Comments Follow Up Specialty Diagnoses / Procedures Referred By Contac t Referred To Contact Cerebrovascular / NEUROSURGERY Diagnoses 6 mo transvenous sinus stent follow up Procedures VIDEO SPEC EST Sugey Allan, PERINATAL SPECIALIST.[employer]AIN MANAGER [address] [place] [id number] Phone: tel: fax: Sugey Allan, PERINATAL SPECIALIST.[employer]AIN MANAGER [address] [place] [id number] Phone: tel:[phone] fax:[phone] Referral ID Status Reason Start Date Expiration Date V isits Requested Visits Authorized [id number] New Request 01/13/2025 04/13/2025 1 1 Reason Comments Toothache Reason Comments Established Patient Reason Comments Wrist/forearm Injury Left wrist injury f ell I week ago Reason Comments Abdominal Pain Reason Comments Post Op Follow Up Care Team (unrecognized sect ion and content) Care Team Personnel Name: PHYSICIAN, NONE Position: Physician Member Role: Primary Care Physician Care Team Related Persons Name: NONE, Name: BRENNA GOMEZ Address: Home [address] Name: TALISHA GOMEZ Name: ОЛЬГА GRAJEDA Source Comments (unrecognize d section and content) In the event this informatio n is protected by the Federal Confidentiality of Alcohol and Drug Abuse Patient Records regulations: The Federal rules restrict any use of the information to criminally investigate or prosecute any alcohol or drug abuse patient.[facility] Center[facility] the event this information is protected by the Federal Confidentiality of Alcohol and Drug Abuse Patient Records regulations: The Federal rules restrict any use of the information to criminally investigate or prosecute any alcohol or drug abuse patient.[facility] CenterIn the event this information is protected by the Federal Confidentiality of Alcohol and Drug Abuse Patient Records regulations: The Federal rules restrict any use of the information to criminally investigate or prosecute any alcohol or drug abuse patient.[facility] CenterIn the event this information is protected by the Federal Confidentiality of Alcohol and Drug Abuse Patient Records regulations: The Federal rules restrict any use of the information to criminally investigate or prosecute any alcohol or drug abuse patient.[facility] CenterIn the event this information is protected by the Federal Confidentiality of Alcohol and Drug Abuse Patient Records regulations: The Federal rules restrict any use of the information to criminally investigate or prosecute any alcohol or drug abuse patient.[facility] CenterIn the event this information is protected by the Federal Confidentiality of Alcohol and Drug Abuse Patient Records regulations: The Federal rules restrict any use of the information to criminally investigate or prosecute any alcohol or drug abuse patient.[facility] CenterIn the event this information is protected by the Federal Confidentiality of Alcohol and Drug Abuse Patient Records regulations: The Federal rules restrict any use of the information to criminally investigate or prosecute any alcohol or drug abuse patient.[facility] CenterIn the event this information is protected by the Federal Confidentiality of Alcohol and Drug Abuse Patient Records regulations: The Federal rules restrict any use of the information to criminally investigate or prosecute any alcohol or drug abuse patient.[facility] CenterIn the event this information is protected by the Federal Confidentiality of Alcohol and Drug Abuse Patient Records regulations: The Federal rules restrict any use of the information to criminally investigate or prosecute any alcohol or drug abuse patient.[facility] CenterIn the event this information is protected by the Federal Confidentiality of Alcohol and Drug Abuse Patient Records regulations: The Federal rules restrict any use of the information to criminally investigate or prosecute any alcohol or drug abuse patient.[facility] CenterIn the event this information is protected by the Federal Confidentiality of Alcohol and Drug Abuse Patient Records regulations: The Federal rules restrict any use of the information to criminally investigate or prosecute any alcohol or drug abuse patient.[facility] CenterIn the event this information is protected by the Federal Confidentiality of Alcohol and Drug Abuse Patient Records regulations: The Federal rules restrict any use of the information to criminally investigate or prosecute any alcohol or drug abuse patient.[facility] CenterIn the event this information is protected by the Federal Confidentiality of Alcohol and Drug Abuse Patient Records regulations: The Federal rules restrict any use of the information to criminally investigate or prosecute any alcohol or drug abuse patient.[facility] CenterIn the event this information is protected by the Federal Confidentiality of Alcohol and Drug Abuse Patient Records regulations: The Federal rules restrict any use of the information to criminally investigate or prosecute any alcohol or drug abuse patient.[facility] CenterIn the event this information is protected by the Federal Confidentiality of Alcohol and Drug Abuse Patient Records regulations: The Federal rules restrict any use of the information to criminally investigate or prosecute any alcohol or drug abuse patient.[facility] CenterIn the event this information is protected by the Federal Confidentiality of Alcohol and Drug Abuse Patient Records regulations: The Federal rules restrict any use of the information to criminally investigate or prosecute any alcohol or drug abuse patient.[facility] CenterIn the event this information is protected by the Federal Confidentiality of Alcohol and Drug Abuse Patient Records regulations: The Federal rules restrict any use of the information to criminally investigate or prosecute any alcohol or drug abuse patient.[facility] CenterIn the event this information is protected by the Federal Confidentiality of Alcohol and Drug Abuse Patient Records regulations: The Federal rules restrict any use of the information to criminally investigate or prosecute any alcohol or drug abuse patient.[facility] CenterIn the event this information is protected by the Federal Confidentiality of Alcohol and Drug Abuse Patient Records regulations: The Federal rules restrict any use of the information to criminally investigate or prosecute any alcohol or drug abuse patient.[facility] CenterIn the event this information is protected by the Federal Confidentiality of Alcohol and Drug Abuse Patient Records regulations: The Federal rules restrict any use of the information to criminally investigate or prosecute any alcohol or drug abuse patient.[facility] CenterIn the event this information is protected by the Federal Confidentiality of Alcohol and Drug Abuse Patient Records regulations: The Federal rules restrict any use of the information to criminally investigate or prosecute any alcohol or drug abuse patient.[facility] CenterIn the event this information is protected by the Federal Confidentiality of Alcohol and Drug Abuse Patient Records regulations: The Federal rules restrict any use of the information to criminally investigate or prosecute any alcohol or drug abuse patient.[facility] CenterIn the event this information is protected by the Federal Confidentiality of Alcohol and Drug Abuse Patient Records regulations: The Federal rules restrict any use of the information to criminally investigate or prosecute any alcohol or drug abuse patient.[facility] CenterIn the event this information is protected by the Federal Confidentiality of Alcohol and Drug Abuse Patient Records regulations: The Federal rules restrict any use of the information to criminally investigate or prosecute any alcohol or drug abuse patient.[facility] CenterIn the event this information is protected by the Federal Confidentiality of Alcohol and Drug Abuse Patient Records regulations: The Federal rules restrict any use of the information to criminally investigate or prosecute any alcohol or drug abuse patient.[facility] CenterIn the event this information is protected by the Federal Confidentiality of Alcohol and Drug Abuse Patient Records regulations: The Federal rules restrict any use of the information to criminally investigate or prosecute any alcohol or drug abuse patient.[facility] CenterIn the event this information is protected by the Federal Confidentiality of Alcohol and Drug Abuse Patient Records regulations: The Federal rules restrict any use of the information to criminally investigate or prosecute any alcohol or drug abuse patient.[facility] CenterIn the event this information is protected by the Federal Confidentiality of Alcohol and Drug Abuse Patient Records regulations: The Federal rules restrict any use of the information to criminally investigate or prosecute any alcohol or drug abuse patient.[facility] CenterIn the event this information is protected by the Federal Confidentiality of Alcohol and Drug Abuse Patient Records regulations: The Federal rules restrict any use of the information to criminally investigate or prosecute any alcohol or drug abuse patient.[facility] CenterIn the event this information is protected by the Federal Confidentiality of Alcohol and Drug Abuse Patient Records regulations: The Federal rules restrict any use of the information to criminally investigate or prosecute any alcohol or drug abuse patient.[facility] CenterIn the event this information is protected by the Federal Confidentiality of Alcohol and Drug Abuse Patient Records regulations: The Federal rules restrict any use of the information to criminally investigate or prosecute any alcohol or drug abuse patient.[facility] CenterIn the event this information is protected by the Federal Confidentiality of Alcohol and Drug Abuse Patient Records regulations: The Federal rules restrict any use of the information to criminally investigate or prosecute any alcohol or drug abuse patient.[facility] CenterIn the event this information is protected by the Federal Confidentiality of Alcohol and Drug Abuse Patient Records regulations: The Federal rules restrict any use of the information to criminally investigate or prosecute any alcohol or drug abuse patient.[facility] CenterIn the event this information is protected by the Federal Confidentiality of Alcohol and Drug Abuse Patient Records regulations: The Federal rules restrict any use of the information to criminally investigate or prosecute any alcohol or drug abuse patient.[facility] CenterIn the event this information is protected by the Federal Confidentiality of Alcohol and Drug Abuse Patient Records regulations: The Federal rules restrict any use of the information to criminally investigate or prosecute any alcohol or drug abuse patient.[facility] CenterIn the event this information is protected by the Federal Confidentiality of Alcohol and Drug Abuse Patient Records regulations: The Federal rules restrict any use of the information to criminally investigate or prosecute any alcohol or drug abuse patient.[facility] CenterIn the event this information is protected by the Federal Confidentiality of Alcohol and Drug Abuse Patient Records regulations: The Federal rules restrict any use of the information to criminally investigate or prosecute any alcohol or drug abuse patient.[facility] CenterIn the event this information is protected by the Federal Confidentiality of Alcohol and Drug Abuse Patient Records regulations: The Federal rules restrict any use of the information to criminally investigate or prosecute any alcohol or drug abuse patient.[facility] CenterIn the event this information is protected by the Federal Confidentiality of Alcohol and Drug Abuse Patient Records regulations: The Federal rules restrict any use of the information to criminally investigate or prosecute any alcohol or drug abuse patient.[facility] CenterIn the event this information is protected by the Federal Confidentiality of Alcohol and Drug Abuse Patient Records regulations: The Federal rules restrict any use of the information to criminally investigate or prosecute any alcohol or drug abuse patient.[facility] CenterIn the event this information is protected by the Federal Confidentiality of Alcohol and Drug Abuse Patient Records regulations: The Federal rules restrict any use of the information to criminally investigate or prosecute any alcohol or drug abuse patient.[facility] CenterIn the event this information is protected by the Federal Confidentiality of Alcohol and Drug Abuse Patient Records regulations: The Federal rules restrict any use of the information to criminally investigate or prosecute any alcohol or drug abuse patient.[facility] CenterIn the event this information is protected by the Federal Confidentiality of Alcohol and Drug Abuse Patient Records regulations: The Federal rules restrict any use of the information to criminally investigate or prosecute any alcohol or drug abuse patient.[facility] CenterIn the event this information is protected by the Federal Confidentiality of Alcohol and Drug Abuse Patient Records regulations: The Federal rules restrict any use of the information to criminally investigate or prosecute any alcohol or drug abuse patient.[facility] CenterIn the event this information is protected by the Federal Confidentiality of Alcohol and Drug Abuse Patient Records regulations: The Federal rules restrict any use of the information to criminally investigate or prosecute any alcohol or drug abuse patient.[facility] CenterIn the event this information is protected by the Federal Confidentiality of Alcohol and Drug Abuse Patient Records regulations: The Federal rules restrict any use of the information to criminally investigate or prosecute any alcohol or drug abuse patient.[facility] CenterIn the event this information is protected by the Federal Confidentiality of Alcohol and Drug Abuse Patient Records regulations: The Federal rules restrict any use of the information to criminally investigate or prosecute any alcohol or drug abuse patient.[facility] CenterIn the event this information is protected by the Federal Confidentiality of Alcohol and Drug Abuse Patient Records regulations: The Federal rules restrict any use of the information to criminally investigate or prosecute any alcohol or drug abuse patient.[facility] CenterIn the event this information is protected by the Federal Confidentiality of Alcohol and Drug Abuse Patient Records regulations: The Federal rules restrict any use of the information to criminally investigate or prosecute any alcohol or drug abuse patient.[facility] CenterIn the event this information is protected by the Federal Confidentiality of Alcohol and Drug Abuse Patient Records regulations: The Federal rules restrict any use of the information to criminally investigate or prosecute any alcohol or drug abuse patient.[facility] CenterIn the event this information is protected by the Federal Confidentiality of Alcohol and Drug Abuse Patient Records regulations: The Federal rules restrict any use of the information to criminally investigate or prosecute any alcohol or drug abuse patient.[facility] CenterIn the event this information is protected by the Federal Confidentiality of Alcohol and Drug Abuse Patient Records regulations: The Federal rules restrict any use of the information to criminally investigate or prosecute any alcohol or drug abuse patient.[facility] CenterIn the event this information is protected by the Federal Confidentiality of Alcohol and Drug Abuse Patient Records regulations: The Federal rules restrict any use of the information to criminally investigate or prosecute any alcohol or drug abuse patient.[facility] CenterIn the event this information is protected by the Federal Confidentiality of Alcohol and Drug Abuse Patient Records regulations: The Federal rules restrict any use of the information to criminally investigate or prosecute any alcohol or drug abuse patient.[facility] CenterIn the event this information is protected by the Federal Confidentiality of Alcohol and Drug Abuse Patient Records regulations: The Federal rules restrict any use of the information to criminally investigate or prosecute any alcohol or drug abuse patient.[facility] CenterIn the event this information is protected by the Federal Confidentiality of Alcohol and Drug Abuse Patient Records regulations: The Federal rules restrict any use of the information to criminally investigate or prosecute any alcohol or drug abuse patient.[facility] CenterIn the event this information is protected by the Federal Confidentiality of Alcohol and Drug Abuse Patient Records regulations: The Federal rules restrict any use of the information to criminally investigate or prosecute any alcohol or drug abuse patient.[facility] Care Teams (unrecognized sec tion and content) Post Hole Digging Machine Operator Relationship Specialty Start Date End Date Rc Novak [address] [place] [address] Referring Ophthalmology 09/22/20 Post Hole Digging Machine Operator Relationship Specialty Start Date End Date Rc Novak [address] [place], [place] [id number] Referring Ophthalmology 09/22/20 Post Hole Digging Machine Operator Relationship Specialty Start Date End Date Rc Novak [facility] [place] [address] Referring Ophthalmology 09/22/20 Post Hole Digging Machine Operator Relationship Specialty Start Date End Date Kemar Mantilla MD [address] [place] [address] PCP - General Family Medicine 09/13/23 Rc Novak MD [facility] [place] [address] Referring Ophthalmology 09/22/20 Post Hole Digging Machine Operator Relationship Specialty Start Date End Date Kemar Mantilla MD [address] [place] [address] PCP - General Family Medicine 09/13/23 Rc Novak MD [address] [place] [id number] Referring Ophthalmology 09/22/20 Post Hole Digging Machine Operator Relationship Specialty Start Date End Date Kemar Mantilla MD [address] [address] [place] [address] PCP - General Family Medicine 09/13/23 Rc Novak MD [address] [place] [address] Referring Ophthalmology 09/22/20 Post Hole Digging Machine Operator Relationship Specialty Start Date End Date Rc Novak MD [facility] [place], [place] [address] Referring Ophthalmology 09/22/20 Post Hole Digging Machine Operator Relationship Specialty Start Date End Date Rc Novak MD [address] [place] [id number] Referring Ophthalmology 09/22/20 Post Hole Digging Machine Operator Relationship Specialty Start Date End Date Rc Novak MD [facility] [place] [address] Referring Ophthalmology 09/22/20 Post Hole Digging Machine Operator Relationship Specialty Start Date End Date Rc Novak MD [facility] [place] [address] Referring Ophthalmology 09/22/20 Post Hole Digging Machine Operator Relationship Specialty Start Date End Date Rc Novak MD [facility] [place] [address] Referring Ophthalmology 09/22/20 Post Hole Digging Machine Operator Relationship Specialty Start Date End Date Rc Novak MD [facility] [place] [address] Referring Ophthalmology 09/22/20 Post Hole Digging Machine Operator Relationship Specialty Start Date End Date Rc Novak MD [facility] [place] [address] Referring Ophthalmology 09/22/20 Post Hole Digging Machine Operator Relationship Specialty Start Date End Date Rc Novak MD [address] [place] [address] Referring Ophthalmology 09/22/20 Post Hole Digging Machine Operator Relationship Specialty Start Date End Date Rc Novak MD [facility] [place] [address] Referring Ophthalmology 09/22/20 Post Hole Digging Machine Operator Relationship Specialty Start Date End Date Rc Novak MD [facility] [place] [address] Referring Ophthalmology 09/22/20 Mikael Colón MD [address] [place] [address] Referring Ophthalmology 05/21/24 Post Hole Digging Machine Operator Relationship Specialty Start Date End Date Rc Novak MD [address] [place], [place] [address] Referring Ophthalmology 09/22/20 Mikael Colón MD [address] [place] [address] Referring Ophthalmology 05/21/24 Post Hole Digging Machine Operator Relationship Specialty Start Date End Date Rc Novak MD [facility] [place], [place] [address] Referring Ophthalmology 09/22/20 Mikael Colón MD [address] [place] [address] Referring Ophthalmology 05/21/24 Post Hole Digging Machine Operator Relationship Specialty Start Date End Date Kemar Mantilla MD [address] [place] [address] [place] [address] PCP - General Family Medicine 09/13/23 02/19/24 Rc Novak MD [address] [place], [place] [address] Referring Ophthalmology 09/22/20 Post Hole Digging Machine Operator Relationship Specialty Start Date End Date Rc Novak MD [address] [place], [place] [address] Referring Ophthalmology 09/22/20 Mikael Colón MD [address] [place] [address] Referring Ophthalmology 05/21/24 Post Hole Digging Machine Operator Relationship Specialty Start Date End Date Rc Novak MD [address] [place] [address] Referring Ophthalmology 09/22/20 Mikael Colón MD [address] [place] [address] Referring Ophthalmology 05/21/24 Post Hole Digging Machine Operator Relationship Specialty Start Date End Date Rc Novak MD [address] [place] [address] Referring Ophthalmology 09/22/20 Mikael Colón MD [address] [place] [address] Referring Ophthalmology 05/21/24 Post Hole Digging Machine Operator Relationship Specialty Start Date End Date Rc Novak MD [address] [place] [address] Referring Ophthalmology 09/22/20 Mikael Colón MD [address] [place] [address] Referring Ophthalmology 05/21/24 Post Hole Digging Machine Operator Relationship Specialty Start Date End Date Rc Novak MD [address] [place] [address] Referring Ophthalmology 09/22/20 Mikael Colón MD [address] [place] [address] Referring Ophthalmology 05/21/24 Post Hole Digging Machine Operator Relationship Specialty Start Date End Date Rc Novak MD [address] [place] [address] Referring Ophthalmology 09/22/20 Mikael Colón MD [address] [place] [address] Referring Ophthalmology 05/21/24 Post Hole Digging Machine Operator Relationship Specialty Start Date End Date Rc Novak MD [address] [place] [address] Referring Ophthalmology 09/22/20 Mikael Colón MD [address] [place] [address] Referring Ophthalmology 05/21/24 Post Hole Digging Machine Operator Relationship Specialty Start Date End Date Rc Novak MD [address] [place] [address] Referring Ophthalmology 09/22/20 Mikael Colón MD [address] [place] [address] Referring Ophthalmology 05/21/24 Post Hole Digging Machine Operator Relationship Specialty Start Date End Date Rc Novak MD [address] [place] [address] Referring Ophthalmology 09/22/20 Mikael Colón MD [address] [place] [address] Referring Ophthalmology 05/21/24 Post Hole Digging Machine Operator Relationship Specialty Start Date End Date Rc Novak MD [address] [place] [address] Referring Ophthalmology 09/22/20 Mikael Colón MD [address] [place] [address] Referring Ophthalmology 05/21/24 Post Hole Digging Machine Operator Relationship Specialty Start Date End Date Rc Novak MD [address] [place] [address] Referring Ophthalmology 09/22/20 Mikael Colón MD [address] [place] [address] Referring Ophthalmology 05/21/24 Post Hole Digging Machine Operator Relationship Specialty Start Date End Date Rc Novak MD [address] [place] [address] Referring Ophthalmology 09/22/20 Mikael Colón MD [address] [place] [address] Referring Ophthalmology 05/21/24 Post Hole Digging Machine Operator Relationship Specialty Start Date End Date Rc Novak MD [address] [place] [address] Referring Ophthalmology 09/22/20 Mikael Colón MD [address] [place] [address] Referring Ophthalmology 05/21/24 Post Hole Digging Machine Operator Relationship Specialty Start Date End Date Rc Novak MD [address] [place] [address] Referring Ophthalmology 09/22/20 Mikael Colón MD [address] [place] [address] Referring Ophthalmology 05/21/24 Post Hole Digging Machine Operator Relationship Specialty Start Date End Date Rc Novak MD [facility] [place] [address] Referring Ophthalmology 09/22/20 Mikael Colón MD [address] [place] [address] Referring Ophthalmology 05/21/24 Post Hole Digging Machine Operator Relationship Specialty Start Date End Date Rc Novak MD [address] [place] [address] Referring Ophthalmology 09/22/20 Mikael Colón MD [address] [place] [address] Referring Ophthalmology 05/21/24 Post Hole Digging Machine Operator Relationship Specialty Start Date End Date Rc Novak MD [address] [place] [address] Referring Ophthalmology 09/22/20 Mikael Colón MD [address] [place] [address] Referring Ophthalmology 05/21/24 Post Hole Digging Machine Operator Relationship Specialty Start Date End Date Rc Novak MD [address] [place] [address] Referring Ophthalmology 09/22/20 Mikael Colón MD [address] [place] [address] Referring Ophthalmology 05/21/24 Post Hole Digging Machine Operator Relationship Specialty Start Date End Date Rc Novak MD [address] [place] [address] Referring Ophthalmology 09/22/20 Mikael Colón MD [address] [address] Referring Ophthalmology 05/21/24 Post Hole Digging Machine Operator Relationship Specialty Start Date End Date Rc Novak MD [address] [place] [address] Referring Ophthalmology 09/22/20 Mikael Colón MD [address] [address] Referring Ophthalmology 05/21/24 Post Hole Digging Machine Operator Relationship Specialty Start Date End Date Rc Novak MD [address] [place] [address] Referring Ophthalmology 09/22/20 Mikael Colón MD [address] [place] [address] Referring Ophthalmology 05/21/24 Post Hole Digging Machine Operator Relationship Specialty Start Date End Date Rc Novak MD [address] [place] [address] Referring Ophthalmology 09/22/20 Mikael Colón MD [address] [address] Referring Ophthalmology 05/21/24 Post Hole Digging Machine Operator Relationship Specialty Start Date End Date Rc Novak MD [address] [place] [address] Referring Ophthalmology 09/22/20 Mikael Colón MD [address] [place] [address] Referring Ophthalmology 05/21/24 Post Hole Digging Machine Operator Relationship Specialty Start Date End Date Rc Novak MD [address] [place] [address] Referring Ophthalmology 09/22/20 Mikael Colón MD [address] [place] [address] Referring Ophthalmology 05/21/24 Post Hole Digging Machine Operator Relationship Specialty Start Date End Date Rc Novak MD [address] [place] [address] Referring Ophthalmology 09/22/20 Mikael oClón MD [address] [place] [address] Referring Ophthalmology 05/21/24 Post Hole Digging Machine Operator Relationship Specialty Start Date End Date Rc Novak MD [address] [place] [address] Referring Ophthalmology 09/22/20 Mikael Colón MD [address] [place] [address] Referring Ophthalmology 05/21/24 Post Hole Digging Machine Operator Relationship Specialty Start Date End Date Rc Novak MD [address] [place] [address] Referring Ophthalmology 09/22/20 Mikael Colón MD [address] [place] [address] Referring Ophthalmology 05/21/24 Post Hole Digging Machine Operator Relationship Specialty Start Date End Date Marzena Banks MD [address] [place] [address] PCP - General Family Medicine 01/28/25 Rc Novak MD [address] [place] [address] Referring Ophthalmology 09/22/20 Mikael Colón MD [address] [place] [address] Referring Ophthalmology 05/21/24 Post Hole Digging Machine Operator Relationship Specialty Start Date End Date Marzena Banks MD [address] [place] [address] PCP - General Family Medicine 01/28/25 Rc Novak MD [address] [place] [address] Referring Ophthalmology 09/22/20 Mikael Colón MD [address] [place] [address] Referring Ophthalmology 05/21/24 Post Hole Digging Machine Operator Relationship Specialty Start Date End Date Marzena Banks MD [address] [place] [address] PCP - General Family Medicine 01/28/25 Rc Novak MD [address] [place] [address] Referring Ophthalmology 09/22/20 Mikael Colón MD [address] [place] [address] Referring Ophthalmology 05/21/24 Post Hole Digging Machine Operator Relationship Specialty Start Date End Date Marzena Banks MD [address] [place] [address] PCP - General Family Medicine 01/28/25 Rc Novak MD [address] [place] [address] Referring Ophthalmology 09/22/20 Mikael Colón MD [address] [place] [address] Referring Ophthalmology 05/21/24 Post Hole Digging Machine Operator Relationship Specialty Start Date End Date Marzena Banks MD [address] [place] [address] PCP - General Family Medicine 01/28/25 Rc Novak MD [address] [place] [address] Referring Ophthalmology 09/22/20 Mikael Colón MD [address] [place] [address] Referring Ophthalmology 05/21/24 Post Hole Digging Machine Operator Relationship Specialty Start Date End Date Marzena Banks MD [address] [place] [address] PCP - General Family Medicine 01/28/25 Rc Novak MD [address] [place] [address] Referring Ophthalmology 09/22/20 Mikael Colón MD [address] [address] Referring Ophthalmology 05/21/24 Scheduled Active and Recently [...] BE BASED ON THE PRIMARY CLINICAL RECORDS. [employer] provides no warranty or guarantee of the accuracy or completeness of information in this document.
[2025-02-26 21:52] LABS: White Blood Cells 0-5 SEEN /hpf (0-5)
[2025-02-26 21:53] LABS: Bacteria 3+ /hpf (None Seen); Mucous, Urine 1+ /hpf (<or=2+); Squamous Epithelial Cells - UA 10-25 SEEN /hpf (5-10)
[2025-02-26 22:44] VITALS: BP 123/83; PULSE 77; RESP 16; O2SAT 98
[2025-02-26] MEDS: Morphine 4 MG/ML Syringe IV (23:34)
[2025-02-26] MEDS: Ceftriaxone 1 GM/50 ML BAG IV (23:51)
[2025-02-27] VITALS: BP 126/86; PULSE 72; RESP 16; O2SAT 97
[2025-02-27 00:26] VITALS: BP 121/86; PULSE 71; RESP 16; TEMP 36.9; O2SAT 96
== END 2025-02-27 00:40 | disposition home or self-care (01) ==
PROVIDERS: Physician Assistant; Emergency Provider Surgery; Referring Provider Surgery; Visit Provider Surgery
DX: N12 Tubulo-interstitial nephritis, not specified as acute or chronic (principal); F41.9 Anxiety disorder, unspecified; Z79.899 Other long term (current) drug therapy; Z87.442 Personal history of urinary calculi; K44.9 Diaphragmatic hernia without obstruction or gangrene
CPT/HCPCS: 74176; 80048; 81001; 81025; 85025; 87086; 87088; 96365; 96375; 99283; A4216; J2405

== ENCOUNTER 2025-06-16 11:49 | Emergency (ER) | payer MEDICAID, SELFPAY ==
[2025-06-16 11:51] VITALS: BP 178/108; PULSE 91; RESP 16; TEMP 36.8; O2SAT 100
--- NOTE | 2025-06-16 12:18 | CT_ITS ---
PROCEDURE: BRAIN/HEAD WITHOUT CONTRAST 06/16/2025 REASON FOR EXAM: HEADACHE TECHNIQUE: Procedure Code: CTBR Modality: CT Procedure: BRAIN/HEAD WITHOUT CONTRAST Coronal and Sagittal reconstruction series were provided. One or more dose reduction techniques were used (e.g., Automated exposure control, adjustment of the mA and/or kV according to patient size, use of iterative reconstruction technique. RADIATION DOSE SUMMARY: CTDlvol: 44.99 mGy DLP: 745.49 mGycm COMPARISON: CT head 12/29/2023 FINDINGS: Brain: Normal. A right transverse sinus stent is in place and appears intact. CSF Spaces: Normal Sinuses/Mastoids: Clear. Bones: No acute bony abnormalities. CT/Brain/Head without Contrast IMPRESSION: No acute intracranial abnormalities. Reading Location: [id number]
--- NOTE | 2025-06-16 12:19 | EKG12_ITS ---
Test Reason : Blood Pressure : */* mmHG Vent. Rate : 83 BPM Atrial Rate : 83 BPM P-R Int : 138 ms QRS Dur : 84 ms QT Int : 376 ms P-R-T Axes : 33 45 18 degrees QTcB Int : 441 ms Normal sinus rhythm Normal ECG Confirmed by ARACELY YOO, RAOUL ([id number]), index editor EMILIANO MARTINEZ ([id number]) on 06/17/2025 1:26:27 PM Referred By: HARINI Confirmed By: RAOUL JESSICA MD
[2025-06-16 12:35] LABS: Hematocrit 33.7 % (37-47); Hemoglobin 10.6 g/dL (12.0-15.0); Immature Granulocytes Count 0.020 X10^3/uL (0.0-0.0); Mean Corp Hgb Conc 31.5 g/dL (32-36); Mean Corpuscular Volume 70.6 fL (81-99); Mean Platelet Vol. 8.7 fl (6.2-12.0); NRBC Flagged by Analyzer 0 % (0-5); Platelet Count 395 K/mm3 (150-450); RBC Distribution Width CV 16.2 % (11.6-14.6); RBC Distribution Width SD 40.9 fl (35.1-43.9); Red Blood Count 4.77 M/mm3 (4.2-5.4); White Blood Count 8.5 K/mm3 (4.4-11.0)
[2025-06-16] MEDS: 0.9% Normal Saline (1000mL) 1,000 ML 999 ML IV (12:35)
[2025-06-16] MEDS: DiphenhydrAMINE 50 MG/ML Syringe 25 MG IV (12:35)
[2025-06-16 12:54] LABS: Internal QC Validated? YES +Cl - CLEAR BKGD; Pregnancy, Serum, hCG Quali. NEGATIVE Negative; Record Kit Lot#, Serum Preg. 980607
--- NOTE | 2025-06-16 12:55 | RAD_ITS ---
PROCEDURE: SHUNTOGRAM/PREV PLACED SHUNT 06/16/2025 REASON FOR EXAM: HEADACHE, HX OF SHUNT TECHNIQUE: Procedure Code: RADSHUNTGRAM Modality: DX Procedure: SHUNTOGRAM/PREV PLACED SHUNT COMPARISON: None FINDINGS: No ventricular peritoneal shunt is seen. There is evidence of a 5.8 cm endovascular shunt overlying the occipital region of the skull. A moderate amount of fecal material is seen in the colon. RAD/Shuntogram/Prev Placed Shunt IMPRESSION: No ventricular shunt tube is seen. An endovascular shunt is seen overlying the occipital region of the skull. Reading Location: [id number]
[2025-06-16 13:34] LABS: Troponin T High Sensitivity < 6 ng/L (<=14)
[2025-06-16 13:49] VITALS: BP 171/104; PULSE 94; RESP 16; O2SAT 97
[2025-06-16 14:06] LABS: AST(SGOT) 18 U/L (<=31); Alanine Aminotransfer ALT/SGPT 18 U/L (<=34); Albumin, Serum 4.1 g/dL (3.5-5.0); Alkaline Phosphatase 103 U/L (35-104); Anion Gap 14 (5-15); BUN 16 mg/dL (4-19); BUN/Creat Ratio 20.3 RATIO (10-20); Calcium,Total 8.9 mg/dL (7.6-11.0); Carbon Dioxide 19.9 mmol/L (21.0-32.0); Chloride 107 mmol/L (98-108); Globulin 3.5 g/dL (2.2-4.2); Glucose 92 mg/dL (70-99); Lipase 75 U/L (13-75); Potassium 4.2 mmol/L (3.3-5.1)
--- NOTE | 2025-06-16 14:16 | EX.ED.VIS.HA ---
HPI History of Present Illness Chief Complaint: Headache Informant: patient Narrative Narrative: Patient is a 39-year-old female with history of pseudotumor cerebri (status post cerebral shunt), PTSD, migraines, IBS as well as anxiety and depression presenting with worsening headache. She states she had gradual onset of a severe headache that started around 1030 today. Denies any recent head trauma. Says she has felt she has had some double vision with it. Has had nausea but no vomiting. Did take ibuprofen around 11 AM with no relief. States the headache is more in her frontal area and radiates to the back of her head. States this is not the worst headache of her life and denies a thunderclap headache. She notes that yesterday she was having some palpitations and chest discomfort and felt she could not breathe. Denies any fever or chills. Is not reporting urinary symptoms. Came in for further evaluation. [facility] Medical History Left ureteral calculus Bruising Easy bruising History of IBS Heartburn Shortness of breath on exertion Non-smoker History of echocardiogram Cardiology follow-up encounter Generalized anxiety disorder PTSD (post-traumatic stress disorder) Major depressive disorder, recurrent severe without psychotic features Migraines Kidney stones Ovarian cyst Home Medications ?Medication ?Instructions ?Recorded ?Last Taken ?Type ibuprofen 200 mg tablet (IBU-200) 200 mg PO PRN headache 06/16/25 Unknown History metformin 500 mg tablet,extended 500 mg PO DAILY 06/16/25 06/15/25 History release 24 hr Allergy/AdvReac Type Severity Reaction Status Date / Time adhesive tape AdvReac Other Verified 02/11/25 05:25 Surgical History H/O hernia repair S/P BROOMCORN THRESHER shunt Hx of cystoscopy History of urethral stent Hx of dilation and curettage Hx of tympanostomy tubes History of section History of umbilical hernia repair History of cholecystectomy Social History household members: spouse housing: house Smoking Status: Never smoker ROS ROS ED Constitutional Constitutional ED: Denies chills or fever(s) Eyes Eyes: Reports diplopia and other Details: Reports history of unequal pupils (left greater than right) ENT ENT ED: Denies rhinorrhea Cardiovascular Cardiovascular: Reports chest pain and palpitations Respiratory/Chest Respiratory/Chest: Reports dyspnea Gastrointestinal Gastrointestinal: Reports nausea and vomiting; Denies abdominal pain Musculoskeletal Musculoskeletal: Denies arthralgias or myalgias Integumentary Denies rash Neurologic Neurologic: Reports headache(s) and weakness; Denies paresthesias Psychiatric Psychiatric: Reports anxiety Hematologic/Lymphatic Hematologic/Lymphatic: Denies easy bleeding or easy bruising EXAM Physical Exam Const Vital Signs: 06/16/25 11:51 06/16/25 13:49 06/16/25 15:00 Temperature 98.3 F Temperature Source Oral Pulse Rate 91 94 86 Respiratory Rate 16 16 20 H Blood Pressure 178/108 H 171/104 H 163/106 H Blood Pressure Mean 131 126 125 Pulse Ox 100 97 96 Oxygen Delivery Method Room Air Room Air Room Air 06/16/25 15:45 Temperature 98.4 F Temperature Source Pulse Rate 85 Respiratory Rate 19 H Blood Pressure 165/106 H Blood Pressure Mean 125 Pulse Ox 100 Oxygen Delivery Method Positive well nourished and well developed Constitutional Narrative: Patient uncomfortable appearing General Appearance ED: well developed HEENT Reports normocephalic, TM's clear and moist mucous membranes atraumatic Tympanic Membrane ED: Yes TM's clear Eyes EOMs intact bilaterally Eyes Narrative: Left pupil larger than right?patient states this is chronic for her, they are reactive to light. She does have some associated photophobia Neck no lymphadenopathy, supple, no meningeal signs and no JVD Neck Narrative: Normal range of motion of the neck Resp normal respiratory effort and clear to auscultation bilaterally Cardio regular rate, regular rhythm and no murmurs GI non-tender and non-distended Extremity normal to inspection General Extremety ED: Negative for edema General Extremity: Negative for edema Neuro oriented x3, CN's II-XII intact bilaterally and no sensory deficits noted Sensorium / Orientation: awake and alert Speech: speech normal Gait (Neuro): normal gait Motor Exam: strength 5/5 throughout Psych Mood & Affect: anxious and tearful Skin Lesions: no lesions Rashes: no rashes MDM MDM MDM Narrative Medical decision making narrative: Patient evaluated for worsening headache today in addition to palpitations and chest discomfort that occurred yesterday. Upon arrival vital signs significant for hypertension. Differential clues not limited to migraine headache, tension headache, shunt malfunction, viral syndrome, ACS, pneumonia and anxiety reaction. Patient given migraine cocktail including Toradol, Benadryl, fluids and Compazine for symptoms in the emergency room with improvement. Workup shows mild stable anemia with a hemoglobin 10.6 but no leukocytosis. CMP is normal. High sensitive troponin obtained which is less than 6 and EKG does not show any acute ischemic changes. Low suspicion for cardiac cause of her symptoms. Lipase is normal at 75. test is negative. CT of the brain does not show any acute process. Shuntogram obtained the patient does not actually have any shunt tubing. On repeat evaluation she is her headache is improved but is still there. She is ordered sumatriptan as well as Solu-Medrol however she declines the Solu-Medrol in the ER. On further evaluation she does have continued improvement of her headache and is feeling much better. Is mildly hypertensive in the ER however her workup was not consistent with a hypertensive emergency and will have her follow-up outpatient for further monitoring of this. Is given referral for neurology as well for outpatient follow-up. Low suspicion for subarachnoid hemorrhage as she did not have thunderclap headache and this is not the worst headache of her life. I do not think she requires an LP at this time. Lab Data Attestation: I reviewed the patient's lab results. Labs: Laboratory Results - last 24 hr 06/16/25 12:25 WBC 8.5 RBC 4.77 Hgb 10.6 L Hct 33.7 L MCV 70.6 L MCH 22.2 L MCHC 31.5 L RDW Std Deviation 40.9 RDW Coeff of Theresa 16.2 H Plt Count 395 MPV 8.7 Immature Gran % (Auto) 0.200 Neut % (Auto) 62.8 Lymph % (Auto) 27.2 [place] % (Auto) 7.2 Eos % (Auto) 2.0 Baso % (Auto) 0.6 Absolute Neuts (auto) 5.4 Absolute Lymphs (auto) 2.32 Nucleated RBC % 0 Sodium 140 Potassium 4.2 Chloride 107 Carbon Dioxide 19.9 L Anion Gap 14 BUN 16 Creatinine 0.80 Est GFR (MDRD) Non-Af 98 BUN/Creatinine Ratio 20.3 H Glucose 92 Calcium 8.9 Total Bilirubin 0.16 AST 18 ALT 18 Alkaline Phosphatase 103 Troponin T High Sens < 6 Total Protein 7.6 Albumin 4.1 Globulin 3.5 Albumin/Globulin Ratio 1.2 Lipase 75 Serum , Qual NEGATIVE Radiography Diagnostic Testing: Clinical Impression(s) from Imaging Studies Brain CT 06/16/25 12:18 IMPRESSION: No acute intracranial abnormalities. Reading Location: [id number] Shuntogram 06/16/25 12:55 IMPRESSION: No ventricular shunt tube is seen. An endovascular shunt is seen overlying the occipital region of the skull. Reading Location: [id number] Rhythm Strip Rhythm Strip: Sinus Rhythm Rate: 83 Ectopy: None EKG Initial EKG: Attestation: I personally reviewed and interpreted this EKG as follows: Interpretation: Sinus Rhythm Comments: Normal sinus rhythm rate of 83 bpm Normal axis Normal intervals Normal ST segment Prior EKG tracings: available for review Prior: Unchanged Discharge Plan Triage Chief Complaint: Headache ED Provider: Shana Gutierrez Dx/Rx/DC Orders Clinical Impression: Headache, Pseudotumor cerebri, History of migraine headaches, Nausea, Chest pain Instructions: ED Headache Unspecified Prescriptions: No Action metformin 500 mg tablet extended release 24 hr 500 mg PO DAILY ibuprofen [IBU-200] 200 mg tablet 200 mg PO PRN Patient Comments: pt took 2tabs Primary Care Provider: Care Physician,No Primary Referrals: Bradford Winn MD [Non-Staff -Ordering Privileges, Neurology] Care Physician,No Primary [Primary Care Provider, Medical] Activity Restrictions/Additional Instructions: Please follow with your family doctor and neurologist for further evaluation of your headache. If you do not have a neurologist currently you have any given referral to 1 today. Please return if you have any worsening symptoms or further concerns. Your workup today was largely reassuring. Print Language: Greenlandic Disposition Disposition: Home, Self Care Discharge Date/Time: 06/16/25 15:45
[2025-06-16 15:00] VITALS: BP 163/106; PULSE 86; RESP 20; O2SAT 96
[2025-06-16 15:45] VITALS: BP 165/106; PULSE 85; RESP 19; TEMP 36.9; O2SAT 100
--- NOTE | 2025-06-16 16:16 | CM.ED ---
Social Work SW met with patient as chart showed that patient does not have a PCP. Patient states she does have a PCP, that she just has not had her first appointment yet. Patient denied need for resources. Anastasiya Salter, TELEVISION NEWS PHOTOGRAPHER, RIM BUSTER
== END 2025-06-16 15:45 | disposition home or self-care (01) ==
PROVIDERS: Emergency Provider Emergency Medicine; Visit Provider Emergency Medicine
DX: R51.9 Headache, unspecified (principal); G93.2 Benign intracranial hypertension; Z98.2 Presence of cerebrospinal fluid drainage device; D64.9 Anemia, unspecified; H53.2 Diplopia; I10 Essential (primary) hypertension; Z86.69 Personal history of other diseases of the nervous system and sense organs
CPT/HCPCS: 70450; 75809; 80053; 83690; 84484; 84703; 85025; 87631; 93005; 96361; 96372; 96374; 96375; 99284; A4216; J3030